=== PATIENT | male | born 1965 | race Caucasian/White ===

== ENCOUNTER 2023-10-19 09:11 | Outpatient (OUT) | payer OTHER, SELFPAY ==
--- NOTE | 2023-10-19 09:25 | XR_ITS ---
The [address] [address] Patient Name: GONZALO DALE MRN: [id number] date: 1965 Sex: M Assigned Patient Location: LAB Current Patient Location: Accession/Order Number: [id number] Exam Date: 10/19/2023 09:28 Report Date: 10/20/2023 11:04 At the request of: JONI DIXON Procedure: XR abdomen 1V EXAMINATION: XR abdomen 1V HISTORY: History Of Kidney Stones COMPARISON: XR KUB 06/03/2022 FINDINGS: KIDNEY/URETER - RIGHT: No visible renal or ureteral calcifications. KIDNEY/URETER - LEFT: No visible renal or ureteral calcifications. PELVIS: No visible urinary tract calculi. Stable chronic calcification or atherosclerotic plaque overlying the lower right sacrum. BOWEL: No abnormal dilation or deviation. BONES: No acute abnormality. OTHER: Stable small round metallic foreign body projecting over the right upper quadrant. XR/XR abdomen 1V IMPRESSION: 1. No urinary tract calculi. Electronically authenticated by: VIVIAN NICOLAS Date: 10/20/2023 11:04
== END 2023-10-19 09:12 | disposition home or self-care (01) ==
LOC: LAB 09:17
PROVIDERS: PCP Family Medicine; Visit Provider Urology
DX: N20.0 Calculus of kidney (principal)
CPT/HCPCS: 74018

== ENCOUNTER 2024-09-21 10:08 | Outpatient (OUT) | payer OTHER, SELFPAY ==
--- OUTSIDE RECORDS SUMMARY | 2024-06-14 22:52 | XMS_ITS ---
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 Vital Signs: Pre-Hospital Report: Treatment in Route: Response to Treatment: Misc. Issues: EMS DOCUMENTATION Observed: 10/21/2023 9:08 AM Status: F Source: [facility] Please click on link to see report [id number]+ydqVAtiYWBWtHHxPEOuIlN6MToxGpIsPN3mgp1UYBeVW7OaUMT3Iwu 4Ci9I AWwyXkt4OMRtZl4WG2huKOmqUyR7Lj6HnH1fPNOgdoHiCQTOT70wBbvqWoCtCIlsXQEvPXPyPfIFTe7s ICAgI CAgICAgICAgICAgICAgICAgICAgICAgICAgICAgICAgICAgICAgICAgICAgICAgICAgICAgICAgICAgI CAgIC DeQVLpQUJcZUbeleAwOpmHNj3GzRVuYi5BQSimOcFFSsExSEGbJYAeBgIbPVBcBYVmie2KKAKfSUCiPT U1MSA gCMQnNJSmYMttXOFiKKAoEjy3HADxDYWiOK1AReXwYDSwIMH4CVCaERMiWJYerb1WJRWtDTHsMrC9ZiO wMDAw FOEpDLusBZKfKRVgHyc3KQAeAULsMW7OKxViDRSfLLPfGAViLBRxTIRzgr4AALYqDNEsDrY3ScEpRRDl MCBuD KrqQFVzEDJbBGAtZIHzABJsMV2HPsXmYDJhQLB0WcPwOFCeOPExtv0SOIDkKJEuPbsdWmNmKDObPOMbL QowMD FxVPFaWYo8SKHtRWWtPI3WCpVlMAVhBJL1ISXkLYHcABCesk5NLCVrYQJsIdlfKEQtJEWpTTWdYZuwKA AwMDA eMQX3XMJaFDVkDN4DEeWnYMViDBZtEHkqRIDoKFEzfx3ACHBmOVHeNZT7HSKyPEHhXVAtOQnxSMEaZQT 0NzMw UPKsACCjFH3WOdKtMBApEBQ3UkolMGKdFYSwkw5EOFBzREMbKQE3ZBImWWOwZTHaLDoqZXVtXFM8ClQ4 IDAwM JRdGH1HDsSzGKKaEGN8EWnpVGGuMAJtup0EVAFtVXOdWkO5ONLhUWVmHXAzRIxvPTCzHLM2CsM3LYAhN DAwIG 2DQfHnPGLfUXA5NkMdZYCwJIPpaw0RDMZlXDLyRit1IaQqMCVmTFFfPCmmGZRkANYrZLPjYIZcHWDtDJ 4NCjA eXXJoNLOlMfJeSFFtOAGpsv7PPBRdIJH5AJL5VSMnCMMxSGTtGLkoGDMeTCM9Sbg3LZAdTPBdET3BTzI yYWls XLLZCer7Qc9UIXWtQRKWVCmZQpQlNRBAL4ICNvhuZeIGMfWQChPRK3GmHYOiPwc4S6YxDZO4SNIBTWYT OUJDM LDTDnI0FqBhUWzCGDAgQXT+LCupIBUvqwWqPXRaDHDHM9Cmy3MeMQdwGKKIJb5XpEgtEUL4Su4Ad0ChW 2UgKF yiTnkRnI1KTOUNKSZ7SG1jfOAqLYplp9RDYpZPIb67R0T1bQPiL5vECyqmolZ5m6UDVW9QAP8vLrA6Rn tXQnB VMZpoE358RtMTRk58CXvbALY6J7tXBlWUpzJfU7nIBHGlFVQIZZ6KFAf0PkOoLoxeKX92BEnMPOFIS2K GNnFN DWKUGEUJTFMnjMTqXvujY4ShRGxCLz2gRCHcDKRzGUZaUSOqBMAoUJTwBICoHHPkEHXeICNkKQJkBROz ICAgI CAgICAgICAgICAgICAgICAgICAgICAgICAgICAgICAgICAgICAgICAgICAgICAgICAgICAgICAgICAgI CAgIC AgICAgICAgICAgICAgICAgICAgICAgICAgICAgICAgICAgICAgICAgICAgICAgICAgICAgICAgICAgIC AgICA gICAgICAgICAgICAgICAgICAgICAgICAgICAgICAgICAgICAgICAgICAgICAgICAgICAgICAgICAgICA gICAg ICAgICAgICAgICAgICAgICAgICAgICAgICAgICAgICAgICAgICAgICAgICAgICAgICAgICAgICAgICAg ICAgI CAgICAgICAgICAgICAgICAgICAgICAgICAgICAgICAgICAgICAgICAgICAgICAgICAgICAgICAgICAgI CAgIC AgICAgICAgICAgICAgICAgICAgICAgICAgICAgICAgICAgICAgICAgICAgICAgICAgICAgICAgICAgIC AgICA iWPPBFfE1BHD1hMLsOn0WGA9JMAFQC7HIQb6GKRnyQUNcBrxYTzh4Tl6VVWXwJZG2YHHbVnNmVKFFY79 wZW5B L0Psa75kEmDtBAMwItfjBnu3EM1NV863dUdhxrBrVRW8QURgLkhlXJWrYE9lKQQsJ3JdBS0yyxPWN3Rk Z2VzI AX2FDPgHsqnIOreXDGcD0R3ALikWrx+Ya0XLU3cc5QqUUpZEsX8RVBlc2FlQNg0DOdhAhnbhZNcET2Hr GF0ZU FgH79jALezLEQfB9FxZWGkYBecAmS9VAf+Mr7Jk8AdZMBiHLt7vPFoLSZzOLScxeHDzCLEOhZzYGZJM2 Bscag QKcXkg9zCr41HOPopfHBXSvIRIKtNaBv9OweEwkZaBzJTPDILteKzm0LXoSG1vVtsSFqLwBjY5uNPtVl IbwH5 RUW2EqnXtXY/PdXparGVe0MIPlkZmoqM7f1hOSZpBDDHRMr1GOVZFtTzPZF4zgXxrR5JTI7ip8KxDXwB CjIwI PPdl0CgSZw4HGdzB59qhGKyuAVgOrDqWQCxQu3WI85qCJiuDy79UYzbOWXjQmEoOYu0Tq8ZI8NlciBlq CAxNS EcNPKER5Bkk462nmXmbpW9DLkzGF9fwnDeuQN0JPnnAVAyHmRtSwNqPFBBCl4+Cj4+Ft5UeKLtFR8UTP dlCj4 +SKditnAdLpvUTb5SLhOaOLHuWvsGBxj3Et6PFs11YAanTMJsPwTqSLe9Ye2YL2YupIUrcjHpHjtyiOI EZWNv IEJYN6kwvcy5zWU0EeorDxZir8WuZ1EsULx5Pn4JV2FmDAH3QFn7Vd1RNSSrYyO6UpNkOBSKXx7HVg5B L1N1Y rI9qDLeD7Ptrc1RC1K9oVBoF0wOUqweC0OGLo4QOvT5vpZedB5RaFmuoaPyHyKgYsJSLHJwhKXYXYtkI ihK5e OJB3kv2VPWw9ClYjWKPMOYHGrv0BbHgFR1x1cH7gHbWhrGpATazwwPq1iKxQ7WC1wD4U9LJX8xy0RmJD FtDQp qefHvNpjCJl1CArUqUEMrTiwTIdo8Ok6PLNWzFz3lyGXwIo7TANWrIg7PCcQqDo6XImTnLu8LVoEfOl4 NTCA0 Mp8BKKE3ibQwRr7cOOSwCv0+ISybbpSyZgyLKd0OLpLwKGAcUumOCvm3Ok8RNMYvLw2xnFNqZy1FGXZh Ci9MQ xPoMp6JRtDxEf2MZbZjVr5ZPAZ5Yi6MBZZ8laQgRy6hLIBgAw4+GStjgeSjSyyNJq3PPqGhLIXnPwxWS jw8Ci 0ONZHiQt2enPNxJu8qBMSpBx3+FNtxquMbSucGJd1VFkWdDYHkYyxKWhz9No2BWAIdXl1gcURfRTHFBo NPK0N ogDAlSWMVCTeZFn4Ux1lkSRMRQ2Ywo6TnrvLfdsNGl000uwDqGvBnTOFGCPyfUQ1qx1CqmqaxV1qtUH6 0aXR5 SUuGG9A6BcP2wORvR9L4iLDkBy4Vh4WrbHWwQQKjUopkDSQUQu4AhAXsZG4Pb414Bq4+DQplbmRvYmoN Cg0KM mPeGKDbNipBMzp1Kz2MNZOgSf5ukZFwHSGDErBYX6GnuYSkRGKEFEaELf2Qa7lpDDIKW0VVXNQ2r9Tdh UluZm 5xMEkZX33oPIYhaI9vIXmNNLYfnMx7pJqIQ0VmC6brrIE9EMlYEO2yIJmUL5S9lSAqEV8ssxQtXUw+Pg ovQ0l RIC3CKBIRGHJfJ0wmJV01pOQ6Kl8GGrRkGi2Ez428KRRaU7WykPEmrzTvFdIgZXRQI3F8ZaG2wRFnA2N JREZv xlMCsYCqBvzzGGzxLAUuOh7jnTfoFiOmKLE5QyL8KTMyLFh3YcWhZt3+BVtqoqXkYehETf1KIhgpSEYr YmoNC hy9Ro0Kk6NhiwCuNJMcWpPyZABfKp2JQBQOZPfkiZBbUZmbGbj2Lcj6Sm8NMYSrDQ22VBXdJJ1vDCD4S wovRm ahD5GwDkXKU3JbxvFQNa55TVwsOQgvGlr2TVDbRW85MYAmNAU3BdGaWeVbQuW6VWR2YDMhIqHrCLijTP FdCi9 Ln291QsejQPLcSWWhKRRSQd1Ey148MsSzQIRuSPQMUuBLZ3KauQXxLOYIFHdGDv7Ol6rePPLPY3m7HMz pY0Fu W7uuXWTPJ5V4MX8ZDOu8ReR3QXf4Ya0LwQWaRO2Bn512HREuT2AugLPmloq+Jn0CTM9nj2RyOBmKRzW7 IDAgb 7KgMBk3NMzoAihtfCTuWX3CaNE3UMLsT91yZJshASIuJ3QtQZB8DPg+Tv8Rq9BoRBQsJAl2nO1PDLrQP Ay9+1 dr1N9BtFZdD3EYaqNEWR8o3h2UaiF1QB6a1QI+/Gklp9CO11odqUnCDsy9gb2ZtTc3ULRJNWKQr1wty3 cIRzw VU6CDbJKjfayUV+5IThTkTmolGpwTpjtOsb0EeEXmBKUG4sXkAAHxHTdcI4U9lrxBm1clTqroRXGTTXC GITq9 1h0rZlPBox3cDyRpORbgcXp8ZL4tA9mhRZbSWYbrrh/tFXTl33wejEdtGum6p8zKslHjdz2k1GlpA6fE itCeU V4mlayh3AGC8X2a6w5+P0uvDvtY8qQCJbhoQpgplUT/hThXzLudZ8LYZCEcieC7mLIte/RGeZ29KOxOA f+6zu VKDQGkHqgSRkrQY0kzXJ3z9lt7fez7N/OxkfCOLeLkIHV3ihJrmP1VVT3fi0GwIJvWFkD6ATImj5FvAZ o8PAo rTiQtKMWfpjUpQ3mTBgiNJmqGj7IesIIvTiN3PZTJIWroSVKrA6ReEFHhbPBllmXtTWwhITAoYSUeLl4 FbmNv EZcyTbFhGBAwibZxyVgvIXokU4PryXpqRVRtWJosSXFLU8PqPD8jI59dRBZtIgQhQUJHR0Y0pTJiY3Lt bnQKP p6CImTqRL4ehq8JSZbmCFWaGZ6hoz5FTKhWA4Qra0FBf884YZ3lPqWCK9DfG940okyema4ia1IBMWNEF 0NJRF N1y0RdiSodAx5iNFmHH93dGFKunN7iEIbHXDUszTj4kSzFO1IpW6rhdRG0AKsIXW3xKXbLY8K1sMXdMX 1lbnQ gMAo+SpccV6jSMM5YNGYUGQVbO9zmJM45yZA9Ht3JSsKlEl1Qx735WOYgN3FkqMCcqkGtBAWzGHZHG3Z 1YnR5 ePJxI9ZNGIFgdkVApPOeBecmHJcvOYZkHo3qcNkpJwUgHFVhFAHeKlXgCvC7LqN9YNe+Gk3DUK8di8Eq DQoNC gNrYPBhp9PfMNt5UJjrIQWrPP31DJbvVv29FEb2ZgozJ2XqICLbJ3k4TPY4WT2uUByaIdsuJTKjN6Xvi CAzMD NfAlxfOPpJH6WhZLnxWHF8Sb5Ev057QiIopHGcCRReSP03MAPlJnDxShn4IlF6QnVhLtHyXfM9XRJ5UA EwMjA vDWr6CZhjCl6Zm810KkkgTSGyXXElWWCIWj0Xr937FnZfLXVnYmUDSQtJE4PqiNGnEKZYMWgQI35SHh5 JdGFs mZXYfqdcYLNuGx5ThRByUzO1LV2zObIqClpoGUdcLCUjTt3baEBcc7YchTA0x4MHTl0STrLpKN5atk3K DQozM mYpCR0yex4NEGhHX6OimRLucqRwGbzhfSXMDOVwKTSCO3nyxyo8iNWlPJiHIr3CLvL7pkJbiM2CnIgiD ctqwz IWlQqn6zruweWPtUGKKmqKQ43Gtu8uC0iPIRqMSs7++8czF7LWBHBtX5hmFNROu5zaN8H6dPRMDzcyyy V5ulm H3JByKQzFdHr5SdQcooqlnKneGNV52nxmFHWOVO2+Wgr1jJ3gwj9vPMTaLIuwN7z8PV7Yre4QVlcPQ+C sLEFi 2mu6lMv1KAKvxn5a5yKFSKdqhTN9CbOjZDhEakXofCnsJLanANjT/EcbcGeSFwGaIwoXja7A285c4GYs c57wk pWdtLWk04AchGrRbwPm7m4Sx7CySzYW2C3ZHxdA1VKUGDIFqAJ7vRYl4fiVNV37JqXFWeEcM0YwOUSt+ qzV/r am1zght6j+gNmmGVOw219yUtAw2z2EzC+DcR1XPO7ga9FbYPXzXUjmxxUiWmnYVe9DMzGgVLNiDuyYSq w8Ci9 KGJHqHo7ykPGgEKRJJ2CQE7MylALuJPAVAMkAXf3CfCEdzYGERFwnGBGtV8BzYIIpwKGgauRtJCojEMW wIFJd Sw7ZlsQcVIliMvVeBSZcwsCenKxrTBjjQ1WujDoyDNKwYVzsBJZBT9JlKN8fI21eLZAzLgPjSPFLI7B7 cGUgL 0TrkxTYWo6UKlThYD9ocr3QCVlzKLInNR5nte2KTVnDH7Dhz8ZAt523WF2AOGlKFlXhV367sppsop7dn 1BTLU k1XNkmG69IUd1MTQDIbQU0SK4KwiIzJWq1Jq9JxhFhbeitXdIbOKYtgaGelMyzXx4BQAgjc7AxiVQiNT RvYmU bXj2AzYCrmTSoMQ00CTYUMb3CE6HSFSCzT4eEEGSqQA4HKBWtpYe5pOteYCaiLPgwHv1emYJag7JmjNJ 0b3Ig WgWiUXCXQj0UqSB9dEPkVZ8WRSUNa888RPhwDFPTW4S8iWRoO0DghfXES3yzQkUrYRDyXoZqGqQ2QoK7 XQo+P p3KTN4xa8JkUQjKIhZ0OENov2AeTLo2HFwyJYJiCN56JXugFd36ASi8XppcD5GzIGIjT6k0HIR5QL5mP DkwNg xfVZAbZ3TknZTeACIjZkjiZJlMU2MkYOpiQAn0Pw0Ix333OjHfxKPcAUB0SwE7MbdwVR7eWdvxNzEbQl EgODA kZsI5Bhu1QOQhYYBqDBs7JksySn7Wp501LwbbYDNeGYHrGLQFJa2Rt924UeMeSYQvSKJTI6WAO0XtfIV pZXJO APfMPe7NpSHhsZZMSRrjKTXgeVsdJS5vkAFhMQVtKw9RsXJwPsTcJREeAJBxRIfQA7Z5nINsI4NldnBY ZXNjc pnjqR2xKz7+OInmqdQcVsaURj1FQwNkQWMtDfoIGmb5Tn2JmDj7FQUrA5PfTQEiWKFdn1TdCc1UQQ6lw GggMz MyCj4+TCsiyAExGJ7KYncwZTEBqkVbXAyqSEGJ2MNft1RDMAbRDR2eNEbTZNiWBhSwQHVr9LrozqOByq G+Wf9 r7Fc3foq0DFjHC4hRBpS2ZhcguiwIZH952pDVOpU0xy5Lg+MWSy24ta1avEMLnmq6zbPE/3TeabaLeNq r8UTP ar8pRkovm1QSu2G9qu5W/OTQsyeZV2QMByronoohyZ4Z+Fy2bGJv2/OycTmPiK/DyPlPC7eUw8SKuFUq q8/kF CO7jJxS1rEbpeDFj1LPfWD/ltIz6ETVRFBDWJhSfkfANHniUBTPJtVRbWc7oziyLECTTlEbR32DKxCG5 V11bG +jAcPkYFfTGicYKFeTz7mSKOMXzESM8qjOAOVwYShPDJHcN4dbeiqcLh3fxgdokfX2kioaclzCvCLPCe /0+iL uu4RHf52X+mdm1eeg0LteX6oSTi3x5e4UWO7xDZsyhmAkkSLhZU9CKbMaUI2osw9CFCdrMfIeTI3yje8 KPDwK F8Vtx6TCy549IT0GNTISN1FwJ886qqdhrk5dk5JCECMnoWXJcJFsqMIFESzqUGEyT2YnFQSmiMFuvdSf IFszO OYoWENyTv3LfrGmUOqpEeGdJXZpmuVnxQnuARasM2QnrGwzDHWeNHluVAYKG3AiDC3nX92aZAZ1RDJsL FIKL1 Q8uYVfI2HpziXIDp1JAwGqZM0eku5NOVanWQWyLQ7tqe6VBYkDM7Erx9VPn401TU6OGIUYX0FjS705vp llck5 qy7LRUHEilMDCuSHffLVCAKfoK8xNB0eznPJhZM4edvQ0GJagA3SrQDUgccfrKRngUJ48cGB9VBnwArQ naXN0 jzrrCDAdt2AmUCipB2XdhVufnDVnrZNmXy7+Wb1WJQSEj3xDBE0xuVFnRSMemoHacOlKH9VFWSODR9Mw bnREZ HHqhpetnF0kGWS4QYHcCitxN2DxhJntDXZfW1pCBw3frZJ3mXEqIr0VvTRsLD7Yk276Vh9TTEqxUHo4U DYwMC 9uKJr3Gn9RFk5GQyYyUN6zfm7EFSzcHAWfCX9rvv0PNRrQL2FjI9KlrCA4WbAfCPM4CPKRF0MxjVxtmU dodCA 6XOHvBzx4YTlNW7Icv0UjvzRnKiXaKuU8Afd7Kd6HoLEikyN6LHpwJh2rdTMGj5ijIz4iWPZcJKZ5QZR gLTM3 Ff60EZSbOhM7XympAuS4JNxwAGQuYs44EBYmDJ9OE4WtviJWlJeeAvO0MuBhSYHYM6EdodMKGM4fRT8X UUJXR 4BpW828hlujxt9oz5VCUBCgvSDPfGBrrMZIRWepDKDzgKbzFQ4ihVDgTKDlAz9LtEOrCzQiQvGdIZbmJ zEKL1 V8cEOhO3DvumPMQIIuehsozU5bZc9+VQethxZsNebQWg3MJKHyGQFbFyaSDtx9Uj7IiMq5JMRhL5GzUM RlRGV sd4ExIe9AHW9sfLejTjNkFx9+PFudnAYnSY5VJtipZPRYwpLxBDmtzAorr3QWKcEiJaFb2Xuv4P+N7QE gMV2k HvOCH0o5CcnlwXOM8Ad9tG3zvxf6cqjSqTMbM7QLzcdaaFh4klePhKqsvJoXfe9hhjTQVClYFFStwuMZ Y2OHi GOb24nSsQ6VU/fshZeiIprn4cS0G15161O9kpcBra6zlu51fxjNyyyXPN+de+7S1CnVsx2LumGh89Q5r /hcHX EJROpYijIVbrXgD8zMGjHeTxr8qKFgzYwyOVSt0np04EgUr2B4rgs6tuMj8ZmYVcu4BImY3FVSnc7A+B hpJ4g rsYzqbcgWoEColRccoZgx0xdhg6y31coZfRpEp/wZtRlpsx2+QbNFbCkcZdouhAjujGU1iPdaI8tPs8g fgLp4 K6uBS2qfx49lN/sdqf5tybB+GITKeWOXOdXrNTS3czPvxR1CGW9ry9BmNYjUCjVwFLMyp6XwXQc3WZqc Rmlsd IWxPB8NmAY2GQZiS79vGQliOJCeE5XwFJm8Yw1+BQgtyJWaGC2XTceqe5jd1Ykp7JK4WNKAZXZ3OcK2Z FIoSu XlClfI4+Sz4ZC7Awr3TqIGRW3JH8FjfdSqndDmBm56g1PiDKLGz6uyxoNrHoooWwoqFH+tDuINCmVuZH N0cmV siL4HLQ7pn5FjKCoUQhIhDMFyx7RnOSa2FRncSsUktFXvEPJgQIEjIDJ4FURnRb7SnEr2EPHyK3NxTSY lRGVj y2SqEv3PAG8xbFplUqvlKXniZmNbc9JxJ4OxORc8Ev3MeIIMB3UtbFRxOFtTO3stMIKyAEWxRereFzKn MjMgM RIBRq0FUuPsQGBfHPYLWf4WD2ZtgpEzARgNJ7JfGVA7PGZxKovkAgDaFleoCEWWDp3QFjCwHbAkNHAED 0YzID Q2YNZgAup+EezsMSCxJ5MkiXTtEi7IIHLPY3RgmBHLU3zaZHqfOfplXI1eM6XLAw5PeNClPRxqSc8+Ci 9TdWJ 2cXQqPY8Vj7WgNi1GaJPxDW8TA4ByMBL1Lw6+EIhlaCVeRX0DYuxuyNtbz0T8LB8iL+ViZoC8zwORYA7 3nee2 C/YUxU5TUHXf9g7EVzXkWO4IZH9010ipkX8ujA10J3tvcL5k9x+OxjyO4Ce+8fPbL2/1SlDtwq//evv7 Hy7/K Bsq2iI45Lae9pNqc36b3gfht3s90jr7+eG/y5FxvMSympIvIjhhkKJ8Ft0Ps46uIt7RtB/e9YSpZbJip bn0X2 Zh6lgQOTLWNYpDYPIYXGdiiA4Nwibjr5d2CMaLJFLvOBZ9ZHe0Tw+/dFSqTsxJsubc7Kt8dUVWEI/RB6 vrTHI qaq32cWbj42/VSYxXOn/co2XeIykAndTO38NYm7hiq4SfLca5XJoa4Fc97KALb2NCMBjV2p5kyzQ/eXZ FjD6U 0c/Fp5nnqei6P75/iZ14VKYvJy8+r8mXZ3LR+k5m0ur0YziwsyjrXny0+YlK6Q9/too348hEN35j7s8D qo/VZ Ywu4/F2bkcvsowRlcABD115swfRUdAP+DLQa1U+cR46wq2yJjgv7tb/B+w5bkoi8crQxGgzz6NiWJSxu uPTyl 0eEuCDglLQZ7FdUfo0Mo9Nc38u6QDSrBo/a9WIQQzn7q1WjW9N0/moFLT06ToUZfLTXDgAJgbZjMBc/g WkPLh RYCX6hE5fzpMD0tMbYVXkiQeXEwY8smDDActT3UpWs788JSqsdMHhoZuA7wLwn+kVrT3NepTySxF60Qx ptuyQ oCL7WIDWMRoslXdIDcMeCxYxpo1MadmHmT2jZH1VUftVcvCSUADW/N8WyPdqlwUXfROnMDna0xWYmnXv vSthp nWYdf6ijattOmOjEEH+FGfYKg96CnXr2G1X1x6tNZTOx4b5kzPWmm1t9bjRv1AF5FZf8khKMBG+F1jQV 11VVE LRWAiwB6xjTuCetM8cVn67JccVxoIGRTQMLNnrEmoO2GRYbOUWkovd5l26F+fHWwwhi1o4jJ09wAko4x tz6xz GKv1yzyMiS6lxY3wYZr4agNhc4TLfmcVpzbfHbQ67ZjlWJB/frEAt5tYk4UlX2qG+Y0ruqIxWRErP3iB rRNSR eOZyVPmAVVvZ3TOEaNe0JbWTH+eA3qCFlPlI82vj5HQb4psq+jVZ9TC46888tXaoD4wCCBtQcSrWQNrD pwDpc i5EKJ9C/fHEHniU0mpdPOhRHo6FJSOZYEV3YUNGtKurIe6/oCBKy5u+38kaWCjiVTvQu5uPJeEWadZX4 mGtRZ rgii2Yc7QwTk86rzczvVZg0vk3ZzTFkW9BCoV4Hkus2LEgkzENAcP1h4BE2FNrPfHIxTmJrq3KpcTl10 I4OrN vT9PiXquke8OX4DSVH7QAki5YuzpNgl01brL+KuMAlv0CX94zxWBQOsi1eGyLkywyZcNMMiZPPazGGEP m8T 40kY+I2Xg8DWpvrIGnnC8xME6o9fI9M7QRQlw5mWnkFezekBpxorIDgRTGm2PRbI7UF+JoXI1c5VX+Ez vc5Kk 1LmJ5HNUIkcGlx6FMrMczJhAcAcAyrob6OzMJtp30txnB/DHLnFwslEK41YcW8yNa7TBwbKHX2fGP7le cEmoy Rm6wlrfx8XKFjPTz6/JDSOQdCjf31XXSjbYyHxSBe7TZRITypPA8PnIZQ0YF9h6bdwxH0BbVpoz51oBy 9sVkB fGSALQTaqPpwhw40Ts7yZ84e8vV6Z0fo7X+iIJzdK2kR5ga9NHO+tnLMNsNi5jelKQN4+i3JCPMIr519 FE6ke zSuirh/fzSM4iUVvNKJKyk9xWp7v9m7utSspGwDjViaMyQzz9GfaqQuv9Lpy2V1jBkuFrUriSSEOrEMw bHPTU pGtCLH0tJ7JstHK7HPA5sRNrralE8ZKmrAOzPusDmpLz8v/mtEaqcACo2cjeEqdNY4fHK+EJdv8sfvvl aPcf4 Hl/NSY9nFCAQvKGycUsdpotgJbA8hTyG3Y60plq2tO0T4BYbwluRAdT/hdSYy1vjfyQ6fpF/CQmi8dJ8 O2X90 Xco7Ue1l0lSDzFX3L9pZZPkvnp2n0T79mNrNvQtNdeX3a6oReCdE0d8IDQBIdGed8n6BtC74hmg/E7C/ oJrUq jAtqt1IMArNl0EqfNDxFkAHQkSbPj/+LMSiVhU993BycZTDv3Rr5zlOLHR9XwK6s6rk5OjL3XYltS1h9 BVWx0 wVmHsyeA7ngyyrrSRv4sS73/+mtEowug2w8yxr1Q7A+D2kf3g/zZUAJOi0B9yS6Yy8OCxdQ2BekvksYh Ao7zz uhoTEtaaeuRfyZsKaxNyjorPqgZxL6ZVzsa9KWU6vPx0pYqn+hRY8UP1BcbJFTK+1Dv7N4JjD7mekTt/ sCMNt WibNq7xkUV+ehNH9eZ9W1ucZClXM47+H33sh9jpDzpbJLhWjRXe6GVyTuJrIvVto5vX9jroKh83HWXJk UY3O4 zrWMq0tjuM8mU6mrDgsnX1dBqkEML0mrpFR4A3U3vzDkGjbLbQ5SzR14OExUjw4SmKQK8Yq9Cb6cP94O JFTN4 JvqsSKclPi2hkiblB0fg+Dkl0U9VgaT0I7IOeuRia/on1UljduiFsn7HkEj56luLq89smoN9OQSYZaMU XihQY 1TufOOcL0sZRYT0PC3JRdHknh3VJSU9F7QXZIj8rdJKe6BFfv4gXEDdPLiNrjkNgZus93tWS079275zy /2lXu kK9rrj2GN+CA7Ym65Tbs71oggHwAAIOH5Ex7qy8dWrY0++9UpVq9WDq1l6t76ayaLqNO6ZZYeumgxgr8 qfzWw l06xVINbgkhz336n+lx5alLwehEm/OJkjQ/DItwdv8nEvNJhgMvI5mUaAgy0CpkaZ4JwoCRQejgSLFOX nBvKE 5/nZTq7OhS3FhKtu4RkLeXPiAJ8hmii8y/yJDdddpvU5oiSppjUgem4VRCQdWdGL7MGb8dNEtFqx5c8k P0leG vMSWgmXqtVFNXmiIg1TY0Qvb87xag7Ng83Ot3lxQ64BIOr1l5h1Q2dOrUwkpNqNbHH9ubg33dTr1QYen Pic5k NnE6YQ1yEvRPmPtfEns1KziALuBrLEcRBBlCiUq9nr5ggdDLPLEizBfQUBYDWzZvDyIATm7IhgRRRclK e0Fvl c5WBkDOEzpBqaptHIrBfXb2YupndoP0RRZqEvgr6AgPDVXfc26dLZWWhAk2h8yd6H3bDRyQPgZNWw5Wi 5PQrm vIpctQJpoFr8KCrd1/A+SMSLDq82j8MNDIIBfYrFGSf+5UUzqgGLOISe18CVzjHkYF9jXvY+bPHa/DUx 8yWFV pT702At932XBdhlDWQrRx/2G62OI5gza/GBTS3BnBUVSJxO2+cC2uo2JyKM1kGKOzsRoZb1kDjd98U5W dVaIU msgjx0wHzOiUsFSb/hFoUAvCImoTICDbLixdlMMLyASW4J63rX9CoXnddxpXsj04WFOQFc5IzcYmLJuh 3OCqM uGuLRR6JzcSwfclrZU3NNztotFpDliWyJdU0sCKdUociJLH2guFX+6S+VVBVNOr39ZsTMm37PsRIZWD+ woqYS 9uHVNqFWkaAL3b6GMbM0ZwkibCUHF5inRdg1fYMcn7RdY2gvRDc7Ne+pGl5N7Sb9G2BRhcbX5cI36qpJ aF3k9 W2f17HtGvf5st6qnkr/OdcSQ2vgQlZTZC8ZGrrvr1sDGjOZkisz37b+Z1yANBRw2hHcR9O/KX8++WtiL Pc+jM 8A/rTW3vO+Ce42t/Ks917RnTv7WHQmRxE36LPKPIuPXIjTzym38ExC8gJycJXV5+vttE/smg8RJ5DTfG gD6eu yqYiHl0ya6UtezYoRhVn/fd7CCGejWVqZcypf7aLK9Gy7so7qlGgpJSU0YPXMFhpzzjRO6c8b19LSOIL KaSrq U33IaxloePDGpSOujy/1+J2LMgVojIMV196twhsUPW7B5dUjaI/Bn2U5Lj7TlIf8XLoMT+XD74tTzcbP vQCTz TCkiLTJk7Uf+GqyvbkO6bIC9QB0Wdvt3mtbDJn2IXePbMY4Ps2wJU0IaMdIWedOMgxspo9mFL9swmyCG GUaDE xIqRgs6pBU4EqgqqeUBSYwqWDrxaBFhAbtVb3mzMNt3hl4jAYLfb3gHkViK+4+4Cfl2EpZJ4LALXUBs5 ITekl OZ0xGUCQ31QuaLs3RFwRV3x2o8OoyO/AgojoHbi2XJjvVDrfjW49yaJ+6HNMpG0VlObBKTtNDsVnjfCW O6ZLr xe7LYAOhEpovjRp4FvZssEdFj20Aq9YtoQSKk9gXT4bqlNBw2hoERvDox7E5aRWg+Clm14oCDIu9M6bF mco3O fo6ukL0ry045XJzkhN9hqObrm0xqGf8bveBtpZQDtYVTidqoXcujwPE+iRUv3taypzTXjOqafIcIsbWh OW/1B NEE87YDHrKe0h9qbtVzhRMdMbJXQ14RyMABkB5cD6BgzEEPn4y3fkyd70uUOiqXmltNO5EhxwuY2majE 54Xuy e42u8BQe3r/nINkqhHMb1V9F3HoPb/Fl6Ig4pomVVFZxoyIj2jP5TDmw0V1gi2DH4W/x4lWh5KFp29SN s04qt 0VHdbp06s9tu0hu24zThf1TwcgOhH80mf8s7ooE7VPnuZ3gseL9OdcJQzdVijloB1g39THNrP3/ar8kn zXd6h MG1DqvIaocNqMsKlAhEVdc931b1AbN2XXs+mIcMExInSBuncUub53ZW7lNv0z+YYPd/gJAIY3uJJLR3T 0dSeu tG0bJkv6zzgPyIbBhyuSgWkBAWKhfsw/Cau3KC6R9lSxME8iEkmFm1lFOt3Zl+J8pq6Sfbgzp4Pl8kpd DDiI9 5s1FgQ23jB+9JNQKbTTiyBmSRSvFy2j5jHfqxff/Sm0U8tZ1NTX9AsJ3XTxszuGcMyXTUv7GHk7ADONj dxjlM U5yCJ+oFDp6Q9sdkfE79IRU0FjTkufkdIw3H0MI9UrpbWfqyhiDlw7gH3bPihdkE4mdW2BEw9jIwNTQG YZ5qy 70PZ5Gb9V8iu1Sst6N4n5ENP4cd8FvJBKtHEajbnHwDkoBDa3AVRChIVBeMyoKMda3Nq4SjLd8GEBnN3 ZsYXR cWHCei1JhSk9ZLU2nrQgmQGJnYMJFU2aehvw6dKFsSFVlTIVYNl4FIoH3yxLdpI6ChSupnAzjGMIvT/6 cc+fe etSoPBL3hKCJFtVDRyEKDJCYhIzL9ZSxxLwRjQiYuIMyMusloFWL3NS0EHz1W7ePnfezNB5reWCcR2VA mPm97 2UG0ZDzd+f1W/76cQ/fu458e/Oc+7mkBBd1B4beJtQhJtZWIRvmHS3r51aj14QF/6WxbFGmz4fW/yvst ruItY 4ytsu7kbpul5NDEwiQgOj3xz6vNefx/8F2ONT00KmJTwVaasnqG/A+jVWgYlVTVQ37clsw86D1ELfpPN JxO+7 s/nBexPN6vBn9ez8OMTyDx9z3brc8z2CDyFjLwu69sFqdqSJQVtx7L4I2ir2vrpZMnMf6icRGAs4hY0y bEMVv IUo+TerYpR+InAT3UK7Cdv5bRdzmUh5MEm6R22/VQwY55o06HIxN7OwhElAiIYFrEYS/dLn78TwXynV+ Gii/c gowqNT0wCqwvIDi6gQxfTkEOXnFx5APcX7lAZSsLwFG4ckrelrp6Mg1ww2dynYj3nIqA+6fR1HFsC3VP itoAy 2lE/Dp2k7mr3j0/m+hPA7ob1VTc3AdpKSmOD/gGUxD1JFnFzY7k/dtrD46ueh0iXZB5w3M/tewtLs9JW PR01R P2/e76IDy5n1GR6ouusl4BLKn82y7pPb/TXIxXc3ttJyWiriiRjPijx89v3aRdXIKUqKS/9Md75N4vrk cz3gl qWRrmrOmGHUiKxRUqjceGYTyPhTEe6gJZl3/EXawLSyRWvk/YfTkqFjBXyt479pv2pQT7v09AsxFWZU9 rWk72 +//nVnOYCHYarIoPAW0WnWuy+z/YC0vk7ikZRAkuhq+f4ZtAnRIO0e5LIxQAVQtN4BQxupb7PbGoszMI y2Ea2 ISpxTjF9TO6qO7eL7hPdtO9DaDk6EYqsrAnnxav3ZZIvlzNeAttq9PGT2Pa45Rq3/lhGUVUxO7X8LN7a 2/i78 TczTi1DKkVNWwxCYz4b6SiCNztdUPbbIHFT7alRICgXgz5ZCGIJzoyziikQCFBH/CCMiSqbd05hZpOXC gbGEj 5LrwxLOh2Q+UxzPm/3FV6Ni5ozMmNXl6xFl93f7e3w4v+KTpA6esa3LAvfTGOcWcTdUBbOzCanTOUiIH h5HZ/ 4n/A54sIyzU60wTPsh5j2TNLTLtzKCpkss0GgeFt7hpS1hH4VzVhBcQcpgu6pcLcXA+mjwbZdogzwVNs gzAfy 5g0jzv8/TTwdImi7YroNUOpkuNJ+A/DPr1k/9H/5/zZ5jGsgWysM+/Kvdwbswxyj0ODK0JXLYTp7Z1Ci JPe2M HjzmfDkLHQoty5HXgfBkbQ27UKvcYikp9naquVOLa3dQcTJiZEYN+zNeLgIMCoUXAQtuij7M99BSzMEs AoclG 7QVSvzZP1UktmllU/3L4V2Gk+j/PeDrA16EUrHtGTmOBf984v/nPQFMgP/5hBS3duWI8x6puFnAqkPIt ZNi8N LTDyavgkk6d0EG7+nvU/alZo0Vgp/2usmBvBv5vATKQUD//C1p3cWMXtDLL34XVm5oNT/8jiSaGb4Vg5 iRsoz dIh7YKZ2C/ipHPIj+e6EC27mJpGJ9ZpAriwptsMNrBO+x0Hn5s2J4XuflfPtsPO+cXCaY7Zra9oIr5l/ U/i3Y 8LRYiDx2tyHFqNKfZVrU3Rg78XCZ179jg20OFajBQgF8fJ2AJYDmUEXOCwFUXHpXD08c7ULc6c0hAQ5A DUTpH h3aoiN4gzpkve9XvT/cIej7bZfk8HKostWCryo8NZoBTk6x5pze7JVTmAO3JzCnNfyNHTdIfcyDdM2Tr PoUwE eFZhGfoL+tfxXZ0VMLEkCtqgPqemEhXGL3e/l+10EJdZ5nuk4m+NK14D8tVmmQ64Q73KNnJZ3xijds3u POxqa rK71E8cmhu6s+lbDZzqdBkcLUcrshDuCa9/heIX41IQ5T7mBraDvXRz1XOVNd/KCnPzq3Gb6+4Y8rhmg eeR3u KjzsH5jZMS4eO2GTOQEXX/MRUsuaXGd0NpI4TvoeuOUzjs3RfU4DUCyoYuQTZD+TkUT0sqMJOCw0hs6u JZrLX PG3UQYE9MWEPyuVGYXmOIvEWvZ+DCHvoDXqDTWFTsEO+jQ3QwH02x9jsG5CU45JhUFmECAcj61Vff/Ao LMtlV aEBhFucwS0KgWJ6jR0qsLLQ+fBD2oO30WOz2U0TtjCBFhB5KGHAXfALiqOf6gSItFNvFovNi6BMo4fss Z7Ram 5VARNc2CeTS00bLpSu5pw8S0DOUMXewk4qa7X1j6o/oXHPaNwd/cuhr1XeZ/wQqQ4tme0/eYE3OE6WOp UWGmB sx2RQSILtCAJLWydD0Gp5m1eFgWTVZdAgJ3ISsR3Xi6VMbUyrmR9m4Rab+l/Tf9G2/6aFTegVSDteKWv S0H/D v13/psHXa+x/D3BZnkPIYJhzENz63Rgxm/+CLndZz3LFn/Rd18A6mzys7phbmYODPAfOt+l359UwEPCh Gpj/B mjttyHvZaufvpCvJeo5ADUiyzC6GWIX8HREofhmXu6AcsR6dmRkq+6y5PAb1ySvNufNzU9kXyxbuqNrL L abkoy8j83BgAygYZwqQXjaO0BPJ2UMI38Knva+XVD7PtjsymYc21XeVxu0RyP4kUJi6DKs1rU/+yD6T0 U+yP8 crsD8eSIf8fuSjT5Kxfox9O1tD4VqpkITssaOoyzv97jrzC4mhXvhrorAUXfaPFmEbV4OchlFkAAlf4S zGpt0 pVfhbogf6Aa6+jsa73DrURRjvCLdqST30Jn24+ttz/J9lqLil9NElr34ZBLAv0sR6i7SY1mITbX14yS0 R7UL7 TKtB1PktjRwAmHbDDHuupCkp+JCbkdscM6NniK4li7ifoq4nwo6a0Gl5/qil5iNNQvoyJ5VSztEZrILT FyP4F yo9k/CYSOq2FPMxpMJfoEolctywcdTICS7fqmIPsomZt+nFqvZRpf1kw5+Wp6dOv59/xPo4iCQPITtOt twiS6 dWYlJMSVI17iYpGt6bZVk7lW27O0JRrAfOwzbxqLsvHpFpqWplbd8pMZgLHtO0HNyDBxVvGfHke/EOOe qZ7dE xK9mgGraOqX6JzpUByHOUlfswF9gyoVNzDmyhj047+9Vk4y5E7Wj27iYMDbA5FO/nE2gilRISNl5SE9q xm57j IilcKtps3XZaNMb9MvVk81EtYyqH0pjYacAOEqDVivFgrSqFt4+GEr7xaXOxe9gwF4OUicPp+vChID3V Cf2Yw 36WK06X0a4WUNouzN+X5CH0dgCJTG98RUkZhlSpih7bhr27y9vlEjzFubmJDMG1XAJDrIR/18In/k/R7 /pOIE 6fH8dagBljiX2lZ4Py6oFEGXo/c7+SCGioCR0z3U9/uZVnK9PXb5uGuk0E1DbjqDEWqfwPApxYyQWp8g 2a/td JnXBSpG1/L0HpRRtxfSxBsn8ta5gCft5F6fwkDLGG4E/TaLDbQULZHYeOCJPPpfHpfX7Ex5m/oh4OR9z Tfxzs WCyFgk0KscVo0y1a562qCz0xrDYVAc/dMMh0RygLt+smkoBVfJqsq2E+m686ytf9wx6Rv7rZdGv6LF9K c1aNN wnJey6Ug4h/wf+mNKZU277dkb2Yd8KRSH+jemzvIU3lc6F44OYvPnE64hKnOpxgN9H3GCkz3OzxcaU+N 7h+vc PV5+hIwgag9LrfhmDs1PL29cWGnG1i8mBRrTeFoe5+Pf4q/2t/al+g1/xc2t8NypCpcZe2Z/MH+2P9P3 u+w0S vSb4j/qP+JP9LhW+k77c8bl8FLcFvPI+QiC/z/+m/3UNC/wLrnonNcS/2z/f22rdiT4sb1uLz8gj3Dp+ N2AZr wn+7g7sW4Ekw8juaKD72qhhpYlji38MNFhDhyZd//UZ/8uz/E+8r1A/9luTJ6LHa0b53upmC/lQ5Hpcw TTs8+ tRc5n+6v1iikICmcoGyI0v5FgMJKrxX9Jksj9xV4UnABtM6pZ14Pm7+r/zb/GrrFvqwA4oWMNTh0jf7s SDsNO o78JUR+EvkDNXg5N/DZnnLZXbRmXspDt9N0uiSJ0xxUP3iFscBKpprfI7/y3W/AwaitAD+a4ZrZMmpMm 8kmBI hmessIk3q+Ccrko/KISgS9g3K282aA4/w7qgixn2N+pXiazY3UTCnriRuyQDAwaH41xiZWFH2cQ/4zgn n6ILK OfM838Eq5B+h+C7RRs0U8+qplHYMDVM8DUyzBv2OJmnnSBvfcS09WP/4Sphw7IXVsQO7FO3P5sk97RVT mrJFS PDWqBlzIbD7TM7uQABqMZh+h35CKKC8HfRmD9oMM4OquWKSSWBK35L7GlZ9sA8TodiI0LPTw9eGWor1I xQHqS h6l9/5O9EvES9cdb2DSZu2YXvPvq6wCMwvORbub8IDEgF1lX8TiYN/D8/NBufUu46LUDv80+//82r/5e r8Tx+ /ef3C1OYC/y604b/C3pg5Id6DYcAsc0EaWDDdiUTaexvgYi0/T/LJvlRQ35NTgXqth1Fw/uf7xCeTyb5 4aX5k aqRGGad5mnzHh0Lta+bV77eK5ZK+mlntTDMbjybi+CEB94D/bjk3omVcnjjjDdmSXoy1zvDctj3P6awC PQkiv VBu8/Ce4ehnqU/PGEkHgdRCI9qSgz/9VaG/b9KSPqxxT7r4EhLbBnG62mZoe4mb5N09mLLmc0M36LVPV ynA8/ JKwJfc8kGmI15iCz9SnequCsQvTctRHog1v5K8LkOM+153wd79oEsWwlvdy7JLm8kN1mthFh9Bo66ija S+1Qk M1myHa8xObZxZGXcT+xUS+tx4JyZ6suwxJr7m/QL+wJhIcJ+LdgoA/zP5AK3M0ZpC3+zL9Hw54A4SCG2 Ioj9j kxrax6xjh7R8EHiDpxM1YwDkH5JjD/0Y081dVj5xcbNAwOl9uZojkPW7ZthwYdp1l6B83XtuCvUekhI3 RD/76 tZstoNPr1XW/IAe0HuJCqkSfYCU//Ek53Vu7iDzovA/r0Mmb+Jku72H4k2qLoo0GGXOxzrl1CeQT082e QMLAp gPpIZ1PnNGGe7NQwlxsR8mHv5N4KP7BUsc6M3s1WcYhB1d/anW4YgM2k3TkbZQkIy0EEPuudajsUVTnu IegTD dWGSdsJsiK+9GQ3D4O/nrn8rd/WSs8DvbHWCs+w4y5h7rnYLkw3SdUziBfpkKaTfaYr0MY1ypDb/AmEt K2R7c u0Xk4Q3Y/t/zl7OZw3ExtPIpPuVq6ZjNuc3GKMpL6t4e5WTQjFGrBRRgPAhV2Q85RulMPJ6n/8kJUPHZ vrfpX Wor/SvA/2ieA3BNW5HHQ3hpHJ/NdgXWvmo1D7BtCa1ODvnWM2elLDs/I2A7rRnLHNXxOuZ33ICh032Nd 8R6H0 /5Lz+syBpAM3Q7IJNepsk4suFnuGPK4KTFbia+z+T4iuqm3X/G/OQXxAybqi2cJ57hJS0y7n4+ro3L6w nb6vq AjtCU/9wDUH83YTy8ZFcH/OxIJE4WtVA6Y7YDrURqSre/eAVMNVypx7gj+nDC18b6Nis8JowUzJshwFW W3L1N 3B+A8njcpYhZgbJSIHa5FqxKlCnskFaycI7KSOkk8mGAM+hTrqH6iyRJ+KG3yDRQvpN3uvQhBokfyDY+ EC4pF C3jSM2CSCtHd2TL7H78brnLmYsBIn13LrbKiVIii+IO5yq6A8la3OihtSGY47eMT+NZesVP0e17kGZcV XabrS KzL907mC0vasmC0x81YsP8bPA2qOaSxToz5A2749z26oAw6+2I1noR4/NhvTyQag7lm0RmdPHt5e/xyD HSMdS i3mX4eGkWKBWVJCwqIQPD6hYSwI2A5sitZ9M5+JHj4RsTqw6qV7HV3qm2oQdUnXsbhSq6f2FjiTmuy5V rtWud b5Vtskq9f84le4c889rsY8lrkr7Biz0wHLTJbldvMnCbVUrmzvOQ0wW0AsRugl6lwb1LPY3b+Gub80k8 17Ou/ zKZX+tme0FQ3QGma3sizRbqY7p9o512+rg661rw8mtcmwcnllmoz32qt8r43BxjmlV7i5KN4Tc8S+s/7 X+Yn2 dz+gg2Srqp3AyAI2b0cUMz0SGP/FhfCf/PHhXzmJ9tvNB+57cWqLC3LsEfqoM54fv9xuqsihOoDs8Rs1 A4ozX F2kj3Fsx54E3Oc8T825U88GQ/JL4TfG/7tVqwdwmN4SO8pIcB9aU2650rPp60Nex6ATvbF+kS2fydsqy bM8Oy OcJlwx1cyeaSLHuWFdOIec5ZKZIZopLxMlcWWana/u/dNrhCn9Mtg2wc2skcAefUfU4NaLGz1hAkLX7Z eQdsW 7i8T2ZA3xUh2hN1zYv0jJ62+XssiMf5bQ5VPD352esXdHoU+xg9h9dpnwNSza/A3l/Zdnf9U4eiIuwAq tvmm+ Ob4kqb/0HZHj2HskE74lY20jDRP0U3j428ZLubawvK5fG++M4FNLD8n27nc45RB/f+mtUV03kVbeF7Ag c6bJz d567/ukrm5vKCWn77Mtn1+iliana/Vf9QDfg430D+Pc9C/AT0S9ApcM+GeceqUxi6nsuFn/6Qc5R2IAimJV v5hde 0HsbYO5zmq+yx8c3bE/1m6vvf/0/carX74DmX2XxC9xhQevz5cqZgO422I201ohef0TI9P2bkLiEuczu co41e gRfjuEE6Jq6ZjbMg3y2znQL97B1F9Jlkax2BWBXv0E7Stcfuz138S+np7wp90lqha28LfMhtmzxxvRtK f9Pax BRyj/I/qH9Q/dR1umQ89f8rtLLoKe4Kz1xep3SfckzFgeqK1JYfY5Kf3O+3L70mKco3A37Ouo8i36Os+ Ja4Li gxmFkv8A67YfrHaAArjJqcpjMkdztbgaw3Ri8RTt70i/vyjn6Pc2VoH2o5z9n37xGnv/EMcBeob1uvvU 3xzAV vovl+d351IzFQs157O78Y/kZ7Os4wU7qv0i84y7sju10DX//p2sIvUbmfUSE83iRbNM3w0P74ghHsm/m YKy5D 6MHj5AsWj5Y7qhXeJTrVilO2yLm+Vt51f19fEWHYlBQ6P1RhKbuM81lNUZ3Ec1Bb7SA0SN+PZsjer7wd R3oc/ SGBqLM+V5RhKl9Ce0T+/YF8wQJwf05Te+pA/gRW7pmyLD6WTIoq7vo530Wp5Qo+sylbz59wP1h7Pqb3B TdJqG /B0dVMKW6BZtvy++WoN3m3NstMEvlB0sdJGsI8mz44bvqB970nsk4zDohdUa88exZ4vO+UqJRb26mZL1 TCY/e 0X1iw2eO7yeimjRxDWWmEL5uR5Zp9Ip5FJltV+xmJ5sQ3Xw4A41sq+ynfBnvKwKntlu+pM+gi9+F9vDn mPPsx uOUv72Ech0+1gQzp/IFRIH9FymUXbnH2RmWbZIJcHMqUxaAL2lb0CBuSIQiS4zwqmfaz9ElmqBhrL9Uw /eYG/ smJn3fnqahWTst5jROJ+lm4i11JY0FwdKd/E9uHecqCuE+4Kqqv13RN7puzjVzwKqczdDmtdQ8GLlqFJ p3SPd E98O6yHHL/jAK8kDQywiy9KWzOUUrggCB6PB7vduadSUr1sFQXwnZ9Oe4cQup/VK6IO4F2sLq9RvWbdK aae0S /KLRWE6gFhmPq0zWT+6WGWWh9V11TBSx0+K7e8bOSArqe4Un6geFxxhs06/Ks4pyJ79Kz2Y1vXkrs7C2 0sfSE unN2Uo2dFoqGBH3x/hLG9thl2f6/tMPepWWRQFjnCcwPuZGs1Rh8Rb8fbvU+qigYr8MNxwVgkwT8kYj0 Sz0tf AW4O33miP21L59XcwQ+o27TW2s6OE+rC6DmhUjsm+wSnjU/NKN8o0GO+fT1zP3VZ9GzdohYt+Vh+nj9f b9Q59 fz7zV7H71Aq4ZMC659pblvNMxq8wSRLMG9vjx8gxFyhzRxCrP11H8fMeItUI9bNfMVTA05PdljuCYCc9 o3k4b FkrfQpsWqo+Kf8m1o4AcVmDFLlwy+hR31erZ+tS7Gp8j+kD21pp30rp9Acf26Qtm4+nv0+/Xn+//gH9g /oN+o okI9gJF1djUEay3K+x95katR+sf1z/hH6L/yp8Ml18/Xb9U/QwmUda4fU8Yq/qs5ql1P+jf1a/U79L79 VX6av 6w24YgThNV3j6L+8s8aczwkvgOG4pTDd2phrtiBu08tsTvUmcZg78+a55qpza7W/vU3WD8SoiVhn23E/ U79e/ pD+gf1l/UP+K/lX9a/rX9W/o39S/pX9b/47+kP5d/Xv6w/r39R/oj+g/1B/C6Pklo5h89xI693sMiP0x vfF+U 9uFV3YhBe/U0/bN6RSbBr1yedlDcVbYGgaQAIznp4VBYeix5PgkdcBEQDeoOUYVhoTkGNjpyuAj7qgiY PMoir dMYj/kDPRZQ9Q+Zb/qZNKJQ4M/9Q79BouBDLuX8gSmj2ODXP513gFOiBINZX7fwkMOmyRQ5JwQweRK6L qDeQh peWJLde4Kq2p8x+AJKODV6Rigm5E5KX/nNnijq+SqZwCZ7DF3OPeizK96lYojimsDM+ZyDml7cGVcG2k pvamD abULa0Zi2XpcjYB9Ng/R54bWy4Vz3gV2h6uOJ9oZqbV77Ge8Kq5WX+SL+GK+hN/O7+G89pJ3eEiAc/MV cle5m 5wje+GvnmsaP20I7+WecoHcS+4y56Y7lojK/eT+cqFcJA+Qi+PV3bL5tUzDMwbUbOOfACr7NJBlVX+Sy +TR8h h5rDzO/MA7Mw6cM5PknYgZI5y8mXC3Hv1VzCwU4oV6jdmOy+YkiStGRxEGT3Xicfw7C55gxcXIxBh0hp xHniv fKs+C40f3wNgxbaKuZYFQIyAQNQULtPRPn9zg8+U6dNhBFwwWk6acnSPkNb+PQ2aj4JCkpAmNtAgno90 0rVwp 3yPfK6+Q50AGy6ahW+QO7O9zM/IG7fNoy/NuUnCysQeLv3eiXf0/IW+Ly0L5fetb8lSE2lNvLbfCZMK0 yc/KO +Rpgxgpqofn0hJte9Qs+YJcY+prukHeK+5ahptUNO76jbEMV1+EB8Wp1DI4kAcwS31ifln/Id5qasG/K b8lvy 2/Eb9cUkLULd5vzpwWERjBpcVq8jPjnU9zI4m+qTqDzXz9ToTZE3A25wfjr7jw2VP1D57s9Lu5xWSZCm Uy1VJ umSa/V48qG1lrhr+Oy3rmbrivM/Jx+SP5Y/kT+UQ1lmvFgIHEXz3dhk6dxrvjD/ZX1dalH/JZ+Wv5G/l b+Tu+ ht/N1/JKfg+/l6/j9/H1/H5Tf/6Wz9Qg3J/xh/kj/FH+UO8oh45pKLSVRoz8BtztXKcEtCxh+UXzfvNL 5gPml 03F/WuM8GSkJgOFiphBD6FrRLrexEaCYaQDgYWd11IPdpB5QeIH/eusZnuzKYIPKAmXVfYkXF4hUplmY IrT1J WKJ6SB3Srvq6ArDTzyWD8PKqExPJ5ATws6nyegH39pgW0KDzN+Cy6KMum+KX6WjeoIOg8Vt/Bf+K/8N3 6R/84 v8T/7cpzU3RijVP4EwdBx1jEOARTY55BRidcNnyd/4n/qg1fK34Mm3+PQygQuCIJO+FRNiKn1JXeJgNw qthb0 JlzYFosXP3eeiCgOZ+oWuJZlgOCPCQ5RT9IqAip6YotYU6zKeynmDCSKTHutR89wevfRzBeVFxQg9lPm ubhSr NIz1diukvNp1J0bNxOf1KOlf/e3gOMaXtpu6+I+9dA2osKenf8+Df/viHhcaCOeEE+AP1Hm8snan+IF8 aL4p1 tZe27XmmWh4EZheVNbaFmwg3r7zT4lBZfKiyPNMpOMxiFMqnsVstS3QNiNphUY4yyj0K0zIoDI+VJPqU DqBZ+ 3q8MYciOhK/XCDhBCHMKWdInfknInzgC4AWlblIcxDNDE4aLZhsgxN9aRMiHQLQEd4cKPI4bhKkSh60h TRNMt laXKIZJo335dupnmWHtsydyYugqL0lItL64yLChftQwG0LKpHSTT8JbQOjVBxlgXr9mrBW8iy3S+aa41 f2H+2 vyt+EvnrwPu5t/Nf5j/Wp093asNVVSPsw5ntNSu3ucnXgiwiTtqAcoGSoXW2zotg4BCVo52TjIYgrvOC +ZbFl iCPyKtZefvFjph3nq0QJcYjzSspPOrYQqzn+Uiz2WYABPbCL0vxzm3JadBWxf54R4zwKTfrgV4HNsNlD 15XXl EgHB8V9biqOy4aZsuePbnPg2SDwRQTF9wV8VhcvTeH+Oe6GZesYAbtpO8yojp+5ydZrXsDPuCfWmYbph hmGmY YBnaqPXKs8wGBP3e77KyISJktREKMqKsbpB1nf5PYl3CFuhZe7ELvdy8ABsJubRxaWq7n+su6f7Q/an7 SylWB anDrJKPXEOaCFKjmCZItmDjw2Y7CZ3peiQaS2XeRpZ2ggWK+htjZntmYuM9hEsulCeeuKZXk6mubLzVb Ex6jp 7r64cLxBv13ChtFJpPYmJWdR9842KV3kcc1ZyRcoSJsWi7ad3XrisrKIiksgHRX8SejI0ArHTLwRhzY8 1tTja 8QVeoloijgI3xsmP6gj0IzXShJFCJnVP1hMMlh1ccVciG3rLvslijkExNoYrxi8d8uHUrmnwj+VbzPPN 8823m OiuL6hDmhiMx6nyTt1vrET+ulCilyjDzE+Cv3seNU96LlDcME9NegbPHVEWlGygyK6LfH4rofyjLUdo8 zE+bd 4kqSH2w2bflqO3v3oSnon2t9y0+yjKdXqaDlhmWmZZZltnSXOlWaT5/97Ge2H4LE7KYsCj2mEuJgtO+F n+bv8 CT4Hh3l/wwf59/wI/wD/nHaoct5wB9GQ+Cf8m/4mf51/wb/e5HX3ZNa8PD2yRUvZiAXNhTVF8eTPyMB0 HpXcV qWp19gR/GOftG0mcDm3XtgzTEDHeOPoJ7ESY/+DC9f6Y4IukNBqNMGIkEJzNDlkGiBFY53Bxt0W1MNHl LizAb XuRdWPBNbK5pvq9uNxKC9uM9vSS8KyjR7JWZ4ElI1fypy6U9x8BTYn84lWOIVDmX0CY6XNqR2a6rDQf/ COeAH 9XYWpJvNDR4Kxq7z0Inck5oY8ub28/rZvXdQ3SCOtPlWKeyGEFk+TP9Oh6RtUJCLpbnUSDPUTtRBpSXc MBitI Jo1Hk4aegywnCTnRaUC8TivqPfqdWNUeofRwjTa3USybysqlWgHlyeh2yhnCUfDl8H46GNYxYJS+gt9B H6mqu VqyYd7OrnTkCNRoJnUOygaEdAeKtLDNDyHJR5UTUD7LLiogEgMVahOTmbDQXBHbcnME1EgSC5/XMEHCI ift0x OkJSQvZ9yeAvOnpGFMixOZiEmTPYiSzedUx0yWdhcfQZmTFkv8bW0m3Pf40t0zFjg9a0VQu23noLVbbc txxPb fahlpo8V1i88bV8kr24B6vRYA0pEBdM1CYTHAnDLtRbHNsfTiY57ZmZOpjsbDYgi7cSVW00qhxVUnHkc L113v fdPopqhKeJ2LiofRHE3rAoA9AnpVdB6Dts91p77M1c66/gjE2B1UEUSrSb2+fEb7xc6TSl9618zxbufU M7d3m ezlmuji81D1l12pps/9bIWn63Qb83+dfjegE2G8oyxq/w+x8coQ+PHjv+4hgt2JadjTr1+rmy1qkEer8 Ym98x mmyZ0hgq6rV0y1OltzmB/I6x+G0d9dfA0bqAst4Lp04vBd1eyV0Z8RqChsuaL/I4ekT4cU+12iP8twdV OmTwo RTDU8fP+/dxdlBes9uGaF1wAeeNgWn0SAM389IAd4kgbruPoePueiKhm2+LjYmOiowIDwttERJsDbIoZ pPRIO tsQJwmTef6yr7tjs0NiMjQ7RwXN639o87EmwouJfm4ipX7fLaP495vFdZp96PHcpZkr+btvXmfwfjd8w zKTku 84cvv2eT3RpyXHmtaSCm5qf1Fp/e8lu+w7HAM1u9WI5iNCvt9fAIi7N7BTu/39pwzqSK/LA/5vatBHt4 e441p cAHpCDAaAq7g7KhSfKY7HX8CK/ViylyLOxzrsKhk5LjrlTycTQhZM3/0OG/YcJS7lCnOxxOe4uf1bHJV 8ZKzu tsUlSTwQrzrx5UXo3kK9E7IO1lsxiobPstIOYHoNXGd8vawtNJMC9hB9DBYF0RhgJB1RbHEBf50DyCFF iUrrq 5UGKrqG9+eq3aYNPis3r1ANd8yahaoeImbhW872Akd8TcCm4DiCsStSFca2FjktUglfmo6eGikg4uz7G 6cVHF tCTWofxOBocXz4tZXbv8+VeBfa43MHOG8vYBqvEHm77CbJlgcfB5fAM191efoxNCcq3QKDTwqUIHUFkw 6M76p TstpzdVc3+FqmTE6FG1kPVIu+6l9PnLmhIP0PtJyhbbxfCu1p7PE8Wu5XkPhr6lIk0lSntKCf/29osvq tFf8j yWkirF6q6oTtN5ZLL8q90Oj8dWAvOSA22i9cu5hfVR0Wrl4WNJqdk8sbiq46Fq9/UIphqPZKCOfnwB0O 81Kh8 vuJsVX37hr9RwxtPhRFOd3f0STdDwmoYzFacvJmEzFALO5GN0J1ipO3U1GztD1I/r4ZItNNjh8PrFJz8 iflOV l4f+K8gXQ7X7TJxbXYBHmb51yR6f190Mq4bibTdRNRPSkUr7AdPvrbDPAGlwQAwmd6By9NCG2iN24OSj KHlej l3FEoCBr2+i2lhTtaFxDAgz/3SjMf5CqmSZRyiNB4q2oA4tw5Dy2y1OzzxBvHN1A4jbrMGJL5bbw66w7 zS6vw JAX7EHhMayUb+QmGwlIvcq9epJQHOvUK0qVqCf51ZaHy2CrJqzCAkCweC18kW6r52mHzlgjWPumqfmhi IK0WN BQuox7Gp8PJt5lt+8gPW0joAE4shQdpt/AClxyfqk0jMc+4IDfHgxSYVplZmTGchF2oufZCMxq//sYgr SfCJc 7gxUV4wt8foQw1aiJagZId2bjVHZ1fjc88t/iBwiupSQxVtFsSeCCUVOg9C4gxX7W7gpA6bvBihcd3sE ZjoZu N80zYTGiz+8ohmoD3GtV2JIz+GQPswjuLJZYW1PwUKojbFabL3UynzPNMgicj1QYMvt6nQQI6HpbdmxU QVlSK kdArZnSQ6tPMV+nvWdFWcXoGv+EPD043SjsZqfIrkgw9Lz8HieFr61dSs2tz4qyZapbCOpqUi9rfXjmf CoPWz arKBlkS1I67jCOxe43h6IryNYSsZwEm0e+qpVytVQtVG/f0y03IZOOMEj24nT7RPQDeTreOeRwu93ttW XJjWW CkionnsFrS9XqbHYZEGo2LBDrtfI0vUmLCDofUcnVsARRI9Hf5eT3Q5DuXk84rclHSkofpbGDMC2izbt qy+2q J8WZJYMKnpjBHeMLFGcnNLZB/Katelyn+7DCnqRBWINUU6lR6sQUWyAY2K8CfmfSW7LgmXD6AKAjV099Wu a8stE Qxj7aYajENWf14V6c2FPeHN7gEFMfLxHHAEGBNcZsHpPvazPbnXFtPkisnXXtmA2ZqOG+p/YxAqLlMh0 jINl4 M7kirzWrMSSQZcEN9nSEAhA2pJKq1Bfx9onn+cOOfVUXG1iDwUcmWaLpBayj3P1XnuXWmXDzgA+4NIjw Ram0B WdGBYPuL0K/Xe8WvfxBQsvZ5t5C8ha3jMzutKKau94ZtPhQ/khgq/16ehjNjKtNuUFhHJg6XfzIX4E1m NZq3f ediVRO1b9Cu8FCbXwc0N2HQjlU54xNlbn8tCRvSBxIFGWIP6M6TPU2BnXbggfiK2PMaoWu3ZJHyrLYhw qztka Vx+re4/wF7vduZJbuOfl8RtJRd5QK67sZ6UzAsE1tDDBfcOTwzcLqCan5MfMJMoS7R5zoTFULJU6eAWw g+kNi 13kReiy8amUdGnFRtY1P1t7jw30bqMPsETun7xAMWCFoJmlQLjRNBDL7u/LMTVLeoRq8AzzeTgUD6rzM BBo/s beUpXWa8lpD+3qbDL1QL2sQVFGeU2zpCEEbybYXXnOOvaQjQl8Axp0GaSvA0Rn0nOtiRLyCAgZLtqUVs ACTWf bXYS5SzbzcUen4CgZu1bqfA9DUUdRES3y5YiYy6Y10MqJ/mF4cT8zJkFcgeJzgwDbrq8lBYjjJ7udA7C 1nH0P j3ln1Z2dFviay7eWEmQbsgrmIppe8oOH8cy28uZzU1ERgTgZypuXt3pp7uU8WKju5jJQYtbyqbjy8LIl 7Tojk wcDxFBDC4MTm0xNbBgO+8dkIU0Z2aY5n5FaULsyw6IJuwRQvzhJF8vjKGXEKHuWg3ZfncN9CLfTmLHjG CciJ7 YDOfsWZKc4k5w4W3nQxjao/SujfqDbh449EiOea+mLloTx+19roWwzYMnWlNPvyvXsJr1PHElkNcm42w rFlPd kaQTpv3AYSSf+GSNVxj/MEjKBwIxlOR0JLD0Vkv3c+9ivksDw7RXF5VI2mvMxYKlI3JsrngwAG5a6Oxd IsxYE AtgIfYMsFdVJGAjqForNuM0Cjlz4lV3G/fxt+ln/gUiDBg37DolP3Kd0I2i6nmPszQ+kf/M+spAp1goz 3KkUV M8dEHDslcv/Ug4wZ5nHvdcLKCrLmY53wb4zz5XhozuPK4gZtn8jGkzHpIJMKWcv+F6YLCY2YDY+CleLh Meawk /iTI7/rDqPpMWaCjC2OIqxxTtyMjcuClm3R3duqG+O0S1k9D/hjWO3PreaHNlG/8fq5vnd/LH4PIKxM+ QwE/w 7VqplX+UHmNV7DbH5HBSdL6/wh/F9baxJ2ZJfRTT+Fd3YjoGdU6XeCxwc68kM/Hz3t43WT2tZSF5M+Ft CDRIw bWcsy2M3N4rI6Z4JwErgHSyDolSbLXQEFosJl5oxr0c4vLncLw+JL7FHjife6T8MoU6Ef7FlLpb8cmuH q8Cp8 O7FzFtNX+4ACm4kF8IIkSwuMfpvWLqItHTgGvAPNvcLOJNgi5sYtHOdTBmN9nJjZE2lvZtLRqKeyq9ho Ue5eB INa5l1WVw1EhRc9OhRGdEfw7CMPoCf8h5pUVpAWxYtoq9ljUcGLFQGpuQ9riArwN14AbzpXDtR6rNqXZ KpgHT xUpZVT3kQnRUtWwUurSCjCzReyLWdtKQOqg3y9M/C/VdFXcRtC6O+kiad2LRmcM9DHZRBj0koZ5I1WyE fhboZ /ZrXo2Eiv0QreScJfdsUPsbZlX9ACsLl8ExBGfZoEIKHvtpv0T3baJtTKOEUL4A6uEJ6LFTWiycVEDpP UA66K jPxzrfj0j8rcX5xdVqB/q1oF+r0a8F/YyHqeZ7Jg4+VfmFdh8d6Lhg3OpTjmg7b5M/VqNfC/q1oF8L+r Ua/cV 8MbgOHxQmNtrvVpEQG5fAYxt7a2DxXUAaWmn9UPoTfDGCirIAdEIsNWqfjNvQRwDOxMCt2A+fb9JqeMy nHHzK yyvwpWk7YdFsJu8+1bSJanDfU61z7JtLo5TNYzk0jELYDycTk4dRrdahkDjPk7pyKcv2TwXpfAm7uubx FhgHj BrijFYigGAlZPDDB1hGNL4GKYNvISDU/WVHIkYhIbOdBjnG1VX1bRYUoVCNmMLoHpCbb9gpSNiXzspPx Ao1To WeCNpIbzROoJWuOCeIqGwLs0JWNkN4EQOJVRrLwenMuuiRO3LUWeGnvxgpuOWPxojPLSixWbrd7I8Edm DRwBi r0QQyFXQGXVsLRKKKmPXojLRzHMkUOYcPfSwxMnPsMRCWQl819fDuOxMVYw6u8LIHFpewz5WoWUoJyKF I13ik p0u0dDKVW8aOPd232qCaWLgVDM946HGKovMLXNlRqbD9ijBqfxVTWw454NXf0owYh0xbnAIBIz5KHVuB gkcte MVdAJtNubF8odTxJnLZW8Fo/VQBXX55BU60T6brDsruWOhgPiqqWahpQOxYRJ9qMS2WxlCpNY/SoB+p0 JNk6I vCQqLZ2UUJE+zQlng+QFJfoKV6mfwrnWq/dgz8R9mmCFzWPMZ9pS9qUgeLmgtBgKYh9efEQk4dVEV1za FuF0a SgWU9TGp3T+iJir//g3V7FlJHEHtAEziG4OInG9w4SihLCFZEsL4tMQeFW4eG4AA6JPRrXQNTAAxjZ0x XDj+A FPaSFq/B9mi7oZ0Q72YIPAkg9NurMy0qCxdPbEHvCMUZOtbx9GoZfyxRL1jSXdIGc621Pyb7ZablRujh RUqfR Zq9FQkoDiEtKrAZGyLmzJj3iMZm4cKscF6B08YSdYdW/2RxP1a4DtxdoqbjzbRqh2wzQx34fkpWOv91o dpRiO L6sEWFikenFYo5/OtaQSUnmZLe5X9ZDH4l1oLTUZV9gu1TUjGTKbo2Ifk4GLcr33eo/u5e6BBPeJ2Xsw zbUUc mv6kL0fLPDki6kmQkARWWPizuoNHQBd9itLwM9dERcvl9ollhxCHLqXyPEC5czLEoaGQ7Ru29dU/pK8v 0lRn6 Sre+QdQokdXzBKDG7wBFpfaVIXE1gubZYJhvBCKdgkbgkyLy/Kc6phsr1FJCLbFLnGce7/ICgflzd58a Z3Amc +oEVbs0S8tVJll2K76FeJ/vO7A76+u2UHn9faQ0Am285fRfrZVu2yoazVE1Bg4K9t1bL/g8vrn58H9Nt b2Gd/ Uuyetrx+WNKtZuD+tSaoN6hS2m5RmW2w1sniK0BrgGIUFcE+cc4O8yx/cXezu5+3tGHXdBJEU9voqvgW wlqAw qqWF+zTwQgLgelE4cZpp8TfDJ/cvWlJZS+JycyJyQbsGde+r4X8RWsU6NjgyxBTQ00NtT8rAZm0lW57u pbU69 Ir21KUaqu+or8/NNiUuZows54/19B5Z4/JC9xWEvH5ChtA02bR9wu3bo6+2c6kGdxTUc4Fmwz8+slkdt wkM2t TOm1rRvhGHi7J7umfbjEetzdNhC0bNkZDL8VR3przFwdhbl+RzHZqpijwZtMzA0zNSp29bY1eOUdS4H4 MZxVZ iEdmsweWE72IQceRL+hzbJ/9jG/W/X+O7/YnU1kkKDOkny8rPG/Y1AmTN/PFDmvWvOpEjvkjF2+17qwm oDvyx NVbpkmaZbxi5mf3wh7/Q8PDp17qefGx0B147uVoz744kxYa7vlri7qwT97jFv5vsd3SiH8QFBawSho39 VI7uq Trent/GIcfTeeL3PQ2+R+aT1qPjQozjRikdJtkXr+hxiv/TeW2bneeNDzz8rI6V8pcd5fL9JSouxQz8wGg 3TQV6 OTWDINeK8x/1ETcj1kWif6vGVMu0aBVgmCsTM1jNZG/9JKslgnEpILou48LCXmMKExjObZZ/7jy8/7fD 7O0a+ b/aM8yZmrvyxBa/k15V/1iCh1u3E9MG/seEqC3Q5TjFKxBJuGTgDBBDULptypXWXWIstk9sHpladWFGY Wppx7 5uKGArnZJOj4UZDxHoPEsBRTdXVLAHEe9PRhCANeokkLRPHoWrRla6JE8TbI/bZMANIZkHOLpD9k5s5s 3rfpX eiTGEM5Rh65+am0AX/oWafVhvnqYd/Mcsg5Y9NCXnVSzSyrvlV+yUpmWcSZIpXuR2gtX2AQU22MGfq65 eFqsH gERLN9ExUW+FyxkyQW7FT/iVkNsNO5r/y/QxA0FHF80F5E5dWzO1k1y4UZlAPn8FptR/GgeRNflSC4iy 9lvwi jQfwAUfPxlv/pZ+dnwQMmPe3XQzFLFySXtO9+yIJbgn+r/lCQKB+98/5P+b2q4xlwykd3fOAjK+jei50 CaSvf JWwZeF1Z3f/4r353+qy8DXwHn0xzIyCC+SRWA8c2XlrSGmuv2uavl3Evmc9Nq835npcS6N+HW8uFmuQi epSP0 A1tpt5KCUczB3+Z/1/8Z6akb+d7IMiDVnhLXH0sLMhicML/aCY0FZql8lHnGHVhiJbPA2RdN4gzNytdt PJ7HR /CVfD1/WJahD0edbEaWXM1wBwxLnacdPntSahEe2FtoZI0Q1WXTn54x8TB8vWMH2G4j5455Sqb6y0YPA EYwgZ WzhexhtokdZl/i63XZry70S/wT/Eu1T+MUqhrxtPhr7u1xinptkA00O75/RGmriK9zv9Mm2bCf9DELRL FIuFF YHTZXUtpIlUO2Z12Btr/8y/yb/fv9H/tP+s+QXhDpYFj8yoHOVLltuab8uz0J1UvjB/pV+/s7jwkSxy5 8MvWv tQiwf5uOM3gV8QEBKfunHmhNkj6pRE+d0yxqtw5ah08/1F+U4rbFr4UOlFInnJcM6Y3Xb9VX4EQ4yI7s ZaC4n F1k67zg4Bvz95P8n7RRWL8ZC1nwtFw+37w204ScbWH7A6ijyXv0Oy3ZOIUN/dzpItljbSCtdcV5li6Iz phGc+ kCzMvOGQ9Q+bilQjdTX5qKPI+gFyGXM/Qj/s7P1v60d3PQcO8wG54sxS9yw0lZcrK4am3om5CItwx1T1 6fT8R 3kacf86G1I5GU5YhxBjvnEIXA9/ruWvCQpmOvWOvMfxwU018+tG5X/YP1D/q0x4QozI/vj/HH+gv8u/y v+T/1 /oJBbWXo6nD/6NQCqsSqqcFMvYsVeARz/BR3nnMaty8qitpAPR41fJ1SPL+EeE0bSdP3aMNox5FxxT+S dpC9w R6hckp1qo0FWpAiBu8P9mJa7ZvNa71l3z/f95oPWVzkhgSleNuSD1ZRdKBCZjmKFrDX8Z2iZuoQqN669 3X36n imEmA7lgtrNzy2cZbXzBSvCkpiCXwt/ui3mt2xZO+zUui/GRJ/jr/J06ARh/8/CKvYH/B4658qu1hz9w UIt9N 84XGhlWd6NfqffbdE9yf9kwMqv4CoTW7pkiTb7XA+R70D8wtpEbNeFyt3Lay2PVfqJHr3pEYYcBt37og vQP4w CaiTZvmC2HPhLK3sg5x0WdwxBsCK5WKybWstQWmNP3CGGePU3xrUs+fAEdYV6NtXfw8Gdieu+Zn8S34i G7Uxr 5iyvNXfzoG6lK2Wh4jzgtXuEnaDboCCsDGo2aVlc8V4OJhCZq4d7h1C5Gb/nRZAdJ0i5JtwXa4BUkZJV gD+7h /CFYXhJBf2MVlsGbedK+1z2JHEzCp341s0aecxgJu56wsjAoIh/XfTATYGeryHGekR+bWrIF0qerWrPL DFifl +7htDJ/vQ9PClurK5Zm8gYYsQecCFkpsW6QX/VU0uSyAckrdQuSLz6WAtV3vPAB3X8+sr+b4QfNmeycF xcb44 TiwW+3h1aV4xI9CO2HMhdZJLxQvE14mtfS5UlmlwNhaen00Ezncglj1cRsREhvfaKk5gC8lXUAlm1Ryg /Cf+P T/FT/CD/Cm+mHkxypP+t/0b/EX+rv6O/hY+n+9332u+pa4Ibte1h/uW+Zs3lqrax/r15einSb5B1PJ4X divV9 wf81ZsYcX9u/w3+Y5T74R90/xdfZ+jdFzBL1DDs95ZIG8AapzK2WkBzmh0+h4cYvtbnsMZZ6K+L23Xvp GojIZ Et0bJ393ZlecloAdGm2Pyx29VuMuUMyZSmw+TRJtM5k7jYKDqgF6n1L8WDwBKzjEz5/pEcU02sjExHgD if+pL Z3OzmQ4xL+6xm6b8nJIdZ2tqdZ7x88GFtvfwtEhr3ilreN7eu56vf1R0/yo8K1emQh1K0cUKdcXMtj5N fvd/Q zdV1l4QYxjS1a0qHiUV/wUx7P7UAcFpiJHukbQk1JiOMrrxUGwU/SICl2ZHv/+Z6Q0wMNzDNZ8DHMAxZ Zz6u2 jSQRE1RwIfQY7PJqTkGwYjWUFRJsBsyM7gycNx4Lajrp2A1m8M1Ln/bwe1Mm8OualmFrRv58yP2L+EqP Dvf8e B53NGubPKKp+z8YlLeo2UOoNGVnXMTFz8UaZ3eJbeFyzmQY6F0XpnRDq5L4qbJZQm04OgPdpFhnLgxIL o0fNE s7EkWq5nxtxecuePW1mNwIW3sjeCjFOyulGVIkZoAc4fQfNv7MdvDRGFkJpXJ4gRyNB1hpqJqWKkgzCH ZjSjG l8zScUm1HazFNBYlGnNR5vQuOP6psdOuBx/L8BJ/U/ipdW9DL479cJXp/OFLQTHg7TpwaZvNFUrxwPkF jCKkv bcIwhwp59P4l4+u7/1UnY/z0172EKXI2ung6Dw5ZEoxiP6Fdiscw6kbKSjT3uf2e8Xg366wk+e9c4gmD Iawjp 1CcSLy6vptcUFAjv8DQZVL9JkQTcod5WhWpR5zAfrdJ9ZmncrmxDrQDmGe3l9eFurlHLBB5rlzcYbTYk lZCe7 yV5nf5mR87KhQ+v1WYnkbYceYRo7dwspAAiYEw+vtiG9WASpoBQcSK6ZWVDGU00ale30uAmrY/WyPHDg oEHt2 yHrAAMLvzrWe51CVE40OHVgpB9m8HZL3DjmGmv7a9ofV1tbEZlar3eH3/fv17z8MFDhWzGv6akSDLs1X Bp1Hm DSrNFxFKnz05if9qzdabj3dK5ioDAKP5Gyej5k6ENHC8N8qPx1jIJZd2/kL/9aQEcKVSs1tDNn0erOjV pOp74 bR8c2MZQqSXQZ8Wri9uh25vPjFwvGQNlJFGs74XueMpwFcgcNhMH6UE3ugtXpAWMhWZPssupg02s76LR bInU6 Q1n8jonf6sOXZw9e8HXEui1fE9RtnzFgrcDZofbOrx7zVkd5LKHLaoLiV2u7YnODbg4lYlTY89BxGGim bW5vj Lfiv5av0CKkBzngH9uQeT5pxqAqZlY2tcntJyPF2Z+eUb/uGs38RIdbnUC66AyC22PIPynAXohsM5alB 9wdFZ FKZWQ8rJVMDwwACT+D0IYLXJj9nA89BxhmWRHo4d3LfgLMMapGTxjbiNSEu2CCAYaZF1vHJnNGg3DBu+ 2WlJo eKLaz9FpJ5cpv2YgjDrl9sq884O73+An78OwaGgw8iwIn1d7eKr5RsC31ko+a6VU/otoL73Z+QBtle48 SEawP ROVQFTfxo4uQrovdVE7qwUHvj1i+7Oh1sPyqBysN0wRpQRYzQ/JkbabaRoSrgR/309SuUvb7YxnybHlh KtZh0 6tPitbkMPiJzVdFyCl8YXqBu9mU/bP0Mspt4vgV4FXB2n0ExY5lpYEwJb00Vyly3L364RyqAfw67pG0L h/4aw POleAWNJmjq3zNxCuLs8Jv1r0uduSSnt94xnGlnJWmEAskg9lkgvFuh6hzbhlX/rafDuhHxeCT1vddNt pBwz3 CcLcEYzAKyjuduJWPrliWVY2zAqYYiLVzuZosxmMIdM7QJjoeVY0QMnUNu/eea41OnecJdoTunDHq1N5 hWfg6 L44NLjpkgiKiQrp6cWGbreKp3xm19RTn5k8DouL7RXPIhXGOnR5wo71sgb7MAqkFIOgv4aApJrDfn/9L XZKYT gFotBc4ai7nGZSwsdFsUW3wU6KGjjl3YV2m9ubt9uxgSymgdHmHGSfXvrMFBtAce47mAYGSZElwcUl9e 4rmeT kws8wP2muMttzHPTHJuFeONE2Qi3vWrxYyvalzmyFxTADz8XDC7jd8T2c4Mg1yn534UNHwZCzK2cD0+/ aZIXi 3GN7zyyFcNA+YqYTXtFwd96FEu54Ct64h5PHcw57u6/Hw+kOup73sCkgun/IcPdJ3wa/e0w72pvf5zXH WK5/s O/fywyC9R6u4+hlzU6EZtDIO/VTQJVs02bXk/8BPJuzXUtJ1AIaraEQL0Ljb0XZ+V1ZtNYhKIF62cA39 tul9D z6G7dKst9DHL8MfDF6Y8b02DUHLcpgzi0mGQRmyojQ5vUkTLe+PoLVDJDg2M4FrFkcUpdW3IO9HsXY36 rrJKl t87n9EC+aQr2ZD6CwW4WpVZ7fAkXxoTCw1x22HvnlOySuKNsFBaH/BgXXQoSP/4APVWNWvV+MPXkgNT+ 6c0kN Mv/oUlvdENWIabM6VCkWMQCFGADSZBVPI5hvkR/wuoP5xY9++2Ib7bKCF6oJ6fsrKBhTAR36hwA9d69k cTJNp lYEV02e98GXQWMwz2dAd53xHXghCtQSs6DbqfJLcnXj/lR0dCzZeObojIGW4SPA54+h9iDwVrYOOTrJj hp3dz ASG2xJn16qBEMak5wW61xA16xS63d6CckE1IZTA3cSoMYX70/GVMdZaNrrGS2ENAA5zWkHpLei9ys/0G KJ/ekaterina eKrAgWbn3i5zunCbTcV0JMj3UgFkLdQ/eqvHT7lL2dBJR31konjW9y75vib5PRh/06zPgXmNznjMK8QZ l/t75 X20s91BYK+sUBqpw+8pDzDvioKH4oFcPbzDEfCqiL1cUdUfsinT9UdUqkWo98jeQmoPd8wf1tllJ6uDx GU2Zm 3Tllau+yHTzdzSJu0W3liRQAnbC0V59l4geJa+cjS7cs112uNkaKtympVrpT5T+1Rz1deMtZ2rarzcry 1pX2e 0wG+CX8T/GYSLrf8uEnyU5drNhSdpYAsEgQhMagRdLIA+zB2sh9yzrUYKTKXdlpzZvdMovnBxuwYC9Bx mmxhB fdrdA1wpw0RDs9BBeDCjDip0l874SGtQ4xBAo4bMQvn4h0xvzKIpTSrzXsmgvLLLaXPbH46lqwSCOsNt /hbpc l4E9rxa2s+in2uvfmN7cO6D7VX0qOApewh/r0384zOXoA2E6wPO5Jb/LQNqMmy9+tuDk0lT7wGJrIbJv JMbBX NIhRuOvGYXO/cZRsQ3b3SPfrpDWp12I102e+mor469xovhW+NQYjpRUj6j3zGOvCpQ7+/J0D3+TxZ7s9 MX7K3 eG1RrBHq5bTJe2dHehFqlnjrn9nqeiFx8tfXs8cDFS7W9Whns3rWq3NltW6aj5OvcOFQovDq3e4demTq Y17NE 0Wtb6UZUD2HEnqmUajbhG4jepH8cgG7NGWbxoG518yn8u3EeicWlERIbzNY6kCtnSZroXucF2f+0R74k bFzY6 +L+7EdZraCm7yTAx4oEpEN8LMsBMOy8WGcgYhspjT4bx9tnIvyBS1eZl293SDYzgORZ2X0BlzWlvPAq0 SSIvQ yCUOq3fbp5AX5vpWb5/vHRUZGxdXw+i4nWWBuKOV1nLg3IFzSlu9UteD4YXHv3z3LFDR8oGXzXq/wIsp nGS2l ToCi7i8SAuICHaFRWZH3beUIBKOrrR9mmvjC07kthfJCKlJYdIzUBNPc56seOi0AwflqVh9LqiH5C5fF 8IN6i 0P38+L4DWs0/IZufb4b0SloLdZbnbqZkkN8xf5FOvpQVdT7ZVgO72x8mAafBZOhXZ/TrNBHffEpkAXyV 2KddV D/QzLOEg+O16bAY+sK2hKbAwJxV6u9e6QgsvuDk6nVHUyjDUOhxCyTPF7xmdDvn0pApiafKMVI8tMUo/ 9iXml BSANyuw9ZT7l5VGIoxwYSg2bpYsPzoITxw8P67rk0NmwOt4Hlpix/nnnLIVMmEp3EgWOGgJf+J9shUtu 4AaDH natXW/lvG3uFHNkCA54JM/Po5jttspF9reMZ192d4uWfjAh38CpajAUUki44O6dk+40+6Tlz38n7lhGs VLob0 1FzObMXPXtuKXdM5MN8zKfoDkdv8wIJeURB2hLt/4mG4+dapRglkGL2jar8UPVltMzbz6esbeUAQxSZk 85rMC ijRfeY94yCQZjC8TRlFp0FvziuzOWsAZWgXLoDpYgarWdPsN5bLzWWdgC6CtxUJvh/pX1MC8NmaTrcjb Fo5Qp jrLp5fek2HvO2fvx8qqwJs7Q1iZe/Sz1KsQpOJ1pUFqZ9enHLR3UYbpQOQ8zfEABhrLSyak6rOpJjOSr oQ9zN 8p84d25I2XtTEKlHRU4HKrXYwJgiuUPpVM1ImIH0j5G0rCg0g3T3wdi5iOFTWdpLjbk3I3Wa++2R+IQM FMVvC 42QmUV102Lh7u0wR4NbXqRBz4q4dn9FCnu7VZJ/TgQRVPrV6O2Ly4d3EvSA123nSoIkzZxnYWV01yfEw oHXNt gfda899mlikhSJNPxJt4WrTslOR6m+jn1oqk+7GnUwhpwB6/HpnOkJGL/0z7NYflUGALb5D+xBcFiIiS frFrh TIsGOT8NFKd6D29WAfZ1rC5HrKlQETWMtUvhtwkC0wCLZagSp96qG4d7twDjPXWWeR6ZSawwnavwJXMZ 5nFlh lDpGpejHMLrdFH8KE+CfAD76ak+w+Qlx6de97Zij8BWfgxky8KjXJsJZL321x+6EY1ttmgEwp96ylR6r 3X20y u7P7+chWr3VWowzG7eEPzPUWb5xVDu42hKll5mXsS95FU+0O/JFN0EPn3ibXq7yKmhqs0SBgUcgdkEBk hCg4P W2CSoFLagzAEV4OzHqSIGd5G0gysAahUnaR4J+tk6a8mYTvPJr4Wlo8yrMl6hozFYzpl7bn/zRLdXteE FLHem wNaamzB40GGIIFXadevpv5A2cSzDNw4eVpMsrq6Vsh+b29QkpeHx93dxoL4cd3zZl2uiaqos4t/XJXZr lZ0cr b8Na6DLZ1pHDJNqfiH+G1u3CuDgUigsOFCQ8IXLKO4hC1mEIJxz9j1qcgGpZjKq2C4tw+JZwyXxkkEub Vmaco dkJXFdsqBcRCyuvGfAybLhVinlzVmVvEnKnTWjnDV80+YV5OwcK8/ej/NRmDvXbIimGxMg2mU1VGeq3s 4U1fa KB9/mpHh9dJs5XkLcKzqb3GPYH6XJenZukTP5SnzGqP3H2YTE6bnY5PEbPn3baqPPX4QLTR5rS1zbu1s wRGnG dFm55AB58oG/PVz2lW8i32E4dNMzp5rLkzKDKYwzktDKP+GUPQSL209fZIa6eGTwyr9Q+/iysG6wb/yE uXMnj J8b+A7k6yDMxSAW2rxw55+24ru0fnRxUPhUDW/cdUjpftXktgPHKlzxaMeyNPZIBDVMU8HrtoY/2dzAb qQFaT 9dbzulwX4pgLIZvuGrBxnX8A9n64br7qd/N4j0113y9gXmir/28WMHZUqplgHNp1Qlkq8iqjBNE3u0+P zhu3q ljUN3v/763adt/TAkT8qfhwwefjv/cSgVAQbTb7Lsib0Y51Q2tMpA+AWf8kZaNmkA1nL/YXs78y/Nh+Z 3bR9m mAeww6Y+5Lxycg4li/wB42mjlXJpEt1DWZN8pFGL0/Lp7Jh8s/QX5t+qkry7LLa5r2JQp4pCcWrac31E Nd1hv 9+icpBNbYzU36y4A+tRBsV19W1Mz1kGywEvzSI6Ss/8T6HBIGY+n5yNDKtkTcVqzQEtHR40vVnIys8ty 1oJ+K uMGjjibS7f43Nkvqufu1t7aKJOdyNMjU4iUgkVMinvSYtGvK+DrYDTzSmak+TklG3nS0t34OqMOoqv+k WjC+5 079lMP0/dgq8176ANkml3yHipRZoe71ChLgo2wRNsjHUaFz8/n78kq7oqgk2lv/zBzsmnHrupLLblum3 O5+mr 37jsuos/h9u+0WeO/E6hZu6H3tJWAPEprdeE87yvZ/Ghdo2aHycwaImZztiycT0D1bndB4EEC7wIaKIL usXN1 XcdiBV1EdBBqQZH/O7Y6+qU+oLQ9wx5LtECO9J0Ua4LremHxiYXu+O9h/2OjywL/CrVGDf+iFtK1XCI2 dQYDW +AEn1EHXPLEL2cIOfQJcsnYArapv95+Kvyd7clqAJ/5rhzSRPZZSyfw6r4L8uKtNhg8AeLEhxfl/zREV icQ7A +KNTjCYSC6p9yAjrdK86b8cIMYFXsSDuI0QZqGjtuTk/DLHDPatsz+c5/fszk3xxVRIbs/vHw42/duGn O4sVz Hv1qogZ8uPKgD37fMaYfg9wT5u/1UbcoJJvhhYS2YkRB3i5L+WAuHfwq8RxnuC1F8sQlnyNRBuLsoRiA tmcvy T4egdW6yWHdj8P85t/Y0JPh7Bs1h+q9wSb5g2Pl1sxA4X2IBCs/3/p8cgdj7lv07n/4aa1ma3hdc0vPx rFbfI aMJtdhb/qOeKB4esZMY8T+YyxMvyk49pvr+LWFFM8W+wpW+LzEXcOkgsHH4Hg7dW1ze/iS/cT1wgjpUd 7reWN PpjXHZWKojmSyaZrLZjnJResG+ZRF/jD9O5eUUskOIeSYCKHaste7JQMGNGQAkXmln2hzAk03/9geNPp JCj4B +XzpM2PZ47EwicOlNkS3r/faJAs3/QbYRlVbfkFswO/4HR2EUzlGqbiCc3It3jZoSLOcj38zTDv2EaRW e85X8 AAQDymJFLiJBLO7YkFN/qEJMOtiomiE5/A9Yx/foscQzyldWR6j3OCPxDOG+xP+ZX61/oYl59VAxIhAi 7P8fP 5xXgU4+fet+G2umXvQpnqxG7W5RaUatwCnOwdbZdPTNvj7XEoY8w2h6sk/ztqFKbkFhRbbLbJIBKHIy/ dk5Hs yay7W2Q2Cna2bfm93y+QUq6AAIoLm7M5nxWt6Y79DB6v17Xz1taUqSapv9UmZcDS6R1wAFcOX8I4lysv oQgQa qqgndWXZxKk+QAxsI9ml9R8AliOWhtPU43E+Qm8/npECv19HBnbt13zUPrkmL3VnyapMGGjO+kMcI3ub NZoO0 UcpN0TXIKZj9VelqZkErvt3dnBodCF5PhK3S5PNDTGv0S+5vgZxz59bwOtgMu27pd27HLEVBEzRvqQra 0htYk BpBd4R84qe3WsTCDvfQ6OvCMGMAf2DkbtblirvOc+e8+pjvVuIHfRbYenCLgmTpXQsLYBp2XAfXfw2iX nmf7t emtvxZz9axtPJuWdKc1OoDDTynz5mZ4lOIafUD3uw3sTsVh/19Ifr/pAJhh/iOnfphsKsx7bJxJ8fVMN v8Udg ZdYyFBBlFBBRbYK/D5BCbhN830Hr2RUMHQEcclJhe1fyqDztLo7ZjM6LVbOhonfC2z8OIP67umT2bd0q VCV7a 6GqGWlsLQhF4KABDnJJRPfB40Xdw37IrPIT854Xzu7I3vMu1dgXC6hJGk8qTmJGUzZvj/DggVR7Mdrgz FQ/+c l7B2W05+qJewdqUv/9U89m1Ke+4rzd8VNIjXlzjDEh27/O3JUEcTUuSYex9jvYx3jPcVtIzj/1pnvbTv votWS j3kr8vH1JjqZAZHX6x+wm5nJ5MeC7iCytYZz4zFun2T4azai7+guC82u5jtGUettxPEFeZVI0YLyxzgo yPq7i Td0PN0LVosvQ5ji66AdVmrp2wff6GcZvCZmf447FnwZ5cu4QPLpeRLTKN2u40YFQxPhWG/MMxP9P90rd TlYxl aSt7EjkVmeethHR/JQ/HojxZU5tnAkC26iXqYv/gkcsaaoqF6iSCKh8v78ACrE6yBAeEPHzVtigBNnYx gJ6Xp luxCiwJHuAtXSyVRu6ioAvGjXDt06+s86V/tbAx++45JNwpoalIvGTL95K3U1+7xm55RLdnwzV/c1L71 J/xe/ vG/pgNR8qpLO0+bahbV+59xeuPhZ94pwGNVsfj0pU6jHTEBhzuz6o99b/hYAiVwJFBoEi/lx3a4nVc05 Oqc4W c8k3nbW6y9g6DbJIEtJpUeFrLND2C4kaGXF7dwZC2WngOVfWoqynpzzhT/wenuN/ekeHyGQlbVG1kVVe 931Z6 XfQJmVTCWXCMojQW4pKDalrTsxGtKQCjLlwrVs8xiOvURGZ7tm3j62tY3YvLf8q7iIMMmCpvieVKk7kJ I3Zwx kiW64Z+JiHBLhk3nLRaDThPtxtteT0u3uocXPyv0lHuOm/O78Q6MjupahydjSOdDuf1VF1HhRpAn96rg +005N d3/wlPcYr3tbXAbrQwv844nIg+wHF13FLQP4kLr/7fdmlD9s/4wf5xjTdp3nwhwx2LgARBNPJ4N9KSjI u+xYc 9Rx2oVGAXKmLmJNFDUvRz89R8wKCpV1kTKNJmpWFsCrvkpHspXWO+ZYu8YhKrwvzJHBhOj6ewfqNhW0G m4yc/ JZ2+ZMV1IsK6VHfDPrAZCkbzKnumftSVrswBh9M6yWVDYGVqDcCKf2hgzr4gDnwY7dBwcSmOYEI+2wGy huihj ZCmUDGFrkINdVkaEOEHX2YpoYzdVERGEVn8Zt8IsQms1AQaHOSw3PrpspBQ8ISp3PdcMz4TyXzyPvDoZ BrP11 MgWXzV6hVasc3At00hZp2seluZPsOWD6tVOLmopAlByDceqV5/+HcOZVkPDNpv8Hs7uMgaBCEfrQyTQ3 g7RZg uStRVkNJwWciBrVJeAmUZkA4SKeUjcNqWXxlOvuLD33XZ6ec9ee2oV3od0JojRyjMpnJmIKZivbIEOAw 3jO10 ajJJzw6DmZFGyIQ0wFLYQRGGoi7UXW3KJcvHytUH7fRf4OJ0aUDN2cMXfOBNDgj0FQNcYKGUlR3pY+FS eqqg1 5GbXJ3h+GMBr5IITL9X9nKeq4KG9uOGDSgumq8CNJBbfrDBl64Ix4z1gzs4B6sc8/QNP6nXJhAHfBsp0 G69sr DqUVcAh4zs2Q1yJUmUWEzMTJED1BsHfm12ZUQZGOwG7dIGUlCraLq1rRLw7XPjS0bxUbwkSG6XnHJHIg B505U PpDxTSusJyUgJJ/mpmQiEa/wrU7ChCqinJl6MlLps35CjtQnLQHiAZ4hm+t8HZ6jTBA6KILDiD9ehUo1 cijE+ WPhooA6nYKNy3iASlV34w46OjZMLPTwm/7cKQ5MVilEE0wHXF9ChkIHmEbNkVH2rctNbNC+QStHS0jOr 0BfVy hx1ZSsRYPIcPh5pxhmDpyd7X4AeCOfEGBdpGpcYzbDyYo3W9OllY9PCwWuA7fWRzSRgEexr2O8+MSI23 9CJQW MPygcj40AJCt1H0CIqzBaJjG6sILusA/4ugHuRdNbhxJAsPv3MAgooBpXM9NU30hc3J3lhq1BYwmsaoa vLb9M /wf8nk1f59xURn7RrLXSALjzh7I1oq02LxwpdMtbMl0lig84/d29CRZzRX8Y8WOup0fHmJangFcC8hUw nyqkr w4kr7r6oraE4cO9rUDlMuYH8XSYgOV31WGNpvkWCr2UQh88wUWI+1uoNxytUG+gBKNR7G4semIZQSk8a gaNFO 6qFCR/yJYxCQsWXLZCUblQBrSTPpycxVTnkqZxqfnyPwSUttoxxfQICsnTiI3laqEzqmCGEGB4ZfVmhI AWKj7 E39eM+oYWpUs9QgrHqShFA+q9+NoZ+bH8BY3zpeSv6TxxKS3bPZr2rLv0g8G1NqwasOUINGQhPipD6Fc a20DJ 4RTkykzF9ohCgGmpBgmtrVmo7CRH0qmi/JI9V68MuZPcv8hydyv99yJ+Z8Ae+GpEW1bvppq37H1a/y2z SVYN1 MR1ngtbuu2VkOSdH0ijW259IURL3z9hI2Jx2n8RQeenlvbLige5xOpvfyUqNOa8dAX38WEwFA+ZxX3wC BG4n5 O76TCXdDyJsNntvkaafdb1SJWsmw9YQmyoVAtdHsQhC0BTO0eU3CHYVNoexLoHv3Lyb7d9NGcqG1GQwY f8A1I O1GxsekI6PFrO9JEbQvALaJwbSjxvUIAyyogSwxCAq+i5FisTu5bGm3VumRSkKXj7bhxQ1jlLkKGjnqD UgLNW E+QxvNKbBxp0ev6PCaCziXPdo3RxtY9EedQKhRAYGbWU8Nr5g9trK2MJeiN3Ta89ONXncnvdmBoZ8+rs RBs9H hwWLlhIb94FWErSlxBguJeCC3zqbpzOAwcliwBl9KaJlSsJp4Zp088+bIftB5boBVqv5BwLKzCCRG15E Miuha nIg00NEC2VR6KI0WNFK5N03CX6HLUKamsX5+NdKCj6saIixpZeLpsY5T5rHoouVmS9KTmsVfPy3SSIUe eblLa 9ud3ClfUOODI3ZPmGdHfjos88cXhajDJbLXVI000Dc87UoI8GgoBNXNZwCD7cuzmWMedPZmWaKOt5XVh tYp09 a8y8vgCOYU2UTn6NEWWG+EHkkr4Ktz80ARrVSnrHGFPHz9nvbt7FPbKs318+EEQgdwvTBMCET7oAIFqB L9CcQ zCUUe4DlvwOSGTSzLlW1LnLlj8TjfIO4YUr8nfNpWUOkey7vhOsHUwh2oDLWjUqpO2Wfqbek0Aivq//e 07UCn bEoaVQQ7Um6NFHekOef10jfZH8IMeY5OhCJ7rfbpenVF0cMW6U+sVb/9rKhfVhLJbaeB0YDNefdtv0HY dMY4o C62IkjRZ8/GQhr9qVsJEkhDqL4k7ONsBM/HTmIyfRFtujWn4KqfamDDkh8a9XMMvAB0H+IEi093zCvTy KlSgn NGkNPi+HxjLxv5gBPbVN60cMt3zkwd/bl2oSd6zs5ayep0FF/qGeYjeu+KsZASMp9eWQWwgMgsin1QOn GhWn5 jit2+MdPN9gwVUwMLXOAbRMzbXKOf3Ng1ZjyfFobcsmtwZQ8ZHC58IW8QYCe+mBrZbzGXuMD1wM91FMB O+zSe yCJ08f9ksmkrkmI+zaBTo7VdbuTHtbaaolGeh0IX/V5Iotb8nerTr9gs1vk81Pt5hxQ/Vi2qw4mx24xp agcLR bmjX9waGggsCUX28kr4xG4NeuLAt5G/fHXino+FiwdlXf+uLX+68t5q43y2/rOn0CzzWvOU+VW6PntSC szRGv WF1D87G9Os5NfZ1qhoJHlGttCn+lc8Y06R8OKJLHHuSqtUrGP80gOODvdTFofZeFRLSn+67G3gOtDZbQ PeZec 58qlrFYZi+VpmFU6ESkl9X6uI8xvlr8O8RnD35K/Kwypm9qGT8I+OhhvjIMBnbhM1M61IMHhT9lTxgTs z90ot RrLnCJeluDCp10XHv/ZvKCyumyAa6AC/8Fa9F3dN+ob6S++0+ik/+88Qhys4/KcHVxFYPn+Sz7dQtlQ7 oFEis CWc72u4Rd77vlRsPF4iXFN21YIUcP5hgRfFIPRQHja2WELreDX2DG3mbgGzFt2Rtxt8BJpvgMR2CuZNj INfFZ RZ2Aie1zTcAAXZoW0sqrXzdNsVGxzbStxKUu3TyVUc88C2SUvcXQmiiBgjiY90w63mAOc+StvCwl8Drp kDH6r hKz7uZ7Yv8M2JkTewT/iBKbzlgwCxnOk4SWr6Lo+4PgbwdZCU/wJjV0jy3Pm48qxy704m97M8sWM0lkw DUmMc RCn7C5eEFjKQMzEqb9rFhSVwpE4E6EbVhqL8t+56eEv95vCI4FjCQQcp50COiM9zcFa4HupH/B9NetLN /MJB8 lLpArFnEkio9N7WSaFrht6AvFMOrhwA2RxIPVi8oWtI1us6IBehdzY721wdd8DZTuSaLFL8DrJsU/egu 0BOVZ lsXrFN/bs7rrUwsqdX/M2ihK1DGLjVvQuQ8Deh33I9bbj6GXbhwozIHHI1Hr477cohgtpxrHBizcuB/7 pfKx1 wTV2UPUMFZHFUlVc1fXj8viqVSpbWOTRDQp9iYlUwFDxWarL1Q0aAvxKhSOu1VIrGRHo158FHDdqmLhG uM8iz kvGKF0/JsBCdiWMREwmo8xlcyEJtdApyXM6ZoCH9aJvS2oPLfMswsI39offZU9/Zm1uHFFo/atXkQfev 0kYmb aPcgqtW9RjlGW31e4gWenB/WNG19RkJGORcxONOQ14HJbOVYt5Krbt4Cmlyg0L6lSefsJNIiTbYJ6iyT bZzQg c20prtxZ6ULO4NttGW07rDVe7813eefCbJ5H4UxUMfe24UbVBDyPAXEDs8cSkfRVh08ayBMSoSXAzpTx DAlrh DCci3Cwkzkz5rFuSLGrcpfeAqn10aXPvdSDCn7zl3XXsI1ns1xrpBvgl2mabQ5fqob2z1wbmJhw7uowJ 2BeJ2 Zzu9oXxkDb9+P3JCGRytY0ehkxm6nfbtTrc3E7UTQQSpeL74C/Iy1cNmv8Rl/LE/Cp/R6XL+NJ+tRCEQ UOQVD CbHkOiVj4f2JZGNTXirjn4qlP7j4b8I7vG7q1wX4sebWxevuO2yf/mPy4+KIRV0y6cs7rUx70Ky099gS l6+CC h2RaYV329qsfq7i0jfQTBS/7hbo1xaC/yUNyeFvVWitol98QaZfbsxz1BxCVtvMJvZQWGKcSCgplcUWj thRnO wdnkoQ1nWueWt90O+NRRXKIYrR+6FXcOMF4tJHBBNAeOysAICzSZkllfXHw47xI6YqkKq/WD0utjKz4H peVJb pzZMFTUupx5VDDPV9tkIz03CP1MeLOaDPWmaHHkgSYf/CUSQ78bw/KVaXMuKnDshbVJHN3eHZDS0qUJV MDW5Z UBBJE2LlNiNo55JOY5sziBrsE1B7fLdTK8R6iobt9oIbTt1Ldp2sA2dD572MTC4aq0QxO0ybteFxczKJ C2hZY /aZW6tLYwWLkOMcCdyE8hyGMYC61WjYtLTlT+WOJLPGqstSrSigS0b/oRtC8sZXBz1kFu+rGwZWtF2rS VqCtY QOygiys68PYRvmTViBAo/kmCM9G9L4dIvbAzHKOkJaOwNwXnf70Q3rPAm3VfGPnz98V/fbngpgXTH1B5 KjSVc FNTH418K+xSYVEGHMIBczrd6ZU69NQbwM10U+bX/FczpeAxlWbCKFVd7mHkLrPRMTV4YGVHdqFlWd+AL wKR2e nCqV7JoIHJTddpvM7KJKD9VqMuk094UB0yV7VavjJ8Ot5HukXDIf8r29KBAEmnneWbQuG1o5/BIz7bSZ j7Y/U X1PGO1dnTDRQ+Y/+Wq1/3msqSGSEr4y0jzyzHkoOSKM8gumzcakcC11Nc+WBVAOhsTLw2JTqULDgnXpx AHS+Q CM4CEbZ1DWEj58zKU3r8+fnqTw1Dvwo3q9RvA+9MLO/2jFpew9fiaWdMvk+f407dPLDzklIp/k83tTwo qlDST 9J7H33fyjgDjqmPD472EoGJgDiqkiCbbYkt8uFOdMvqvmIdv8+h3Um57ymHu2fLQI4GltBpUikh+zYmO Tvqvp iGW/SE2nXsvtETsYObm5LH55RnrYRJl7vkPj1mit4KsVmf4qV1k4vUPssI8IgI3xMHQfwMDyNK7H8Ibc Q58pK b4oHvRvXkoKCaaURPo96kK6Ckjq1UP0cHP7HqPTQThtN6Yk09WIQlRztFBa6Ut2xFTvvoEKL2S1B0XnD ZY/T8 prQdLcK17dHVgNAJGO8QcG7deVYEmalzc9WS6aXWBSH9/nJhrPKYCvw61oqISdpL2tj4G63Hd4txuesx 9rudN amsx7nO3jB80bxHYGWa9hwkrQ7rJnprDzAXA8yvlY2qh4KNmoKA5CEZmPa1Q5Q2MV/80G2o1KvFB9F8H iGviC 2NN8dtUmCSvzJ1GMjgumZ5SOy5YFc7RfvitJyvY5U1kDChF3mQRgJZwR5QCxksQyeBEX32Anj10592+A z9/z6 1/c8c5B+7Jk/ufarfd1z1Wgu7rTKeixcxh3PywUUH1+gjKAew15dbMuAasRQrC6USTl1XXNvQB3fKM+t qXuSn NvvKhZdhwWCGu9MX2QY4WqLQCh+ryhG/hsF9q5Sh3kSlPQveCjrWFjDDTbGehcjZeJ3QNsoFV3Wg9DsS Lg8uC Y6AtuM5Lz5pXruCENUnm6COPYpA8eCdIIsk/jl/Bp+lFXiGDfye/dbiCMMuQO1GnunbdCERJgOBgZEwi csf0y aRHfzBGApRX+y7AMI+5JvKSHRInq1yW2WbaBWKA5IXUThUihSLb6Y9hM/py3sy7HdPgJyVw6wWy3Azzz N2u7e 5/7Bnsiixp1+/qy6w2vg+le6+fnjdNvX//iclA6Mjd/2czedlBZp6/+DlmwSWn4vaAoPyeqBG79urrC4 XknbX xwoXoG2tsfZHE2m2p7cdSphv21ozcgmbpe89Bi+Rgh7Ig54LRdKbmK52/PjA/mz4+dkz4t/Gn4Btvnv8 znbut n0untVIe0PkPi8UySydYTm33jRyoOGwN/HWSYH8G7RyB1OqAnTcMGFH+w22I1fle2H6oi8SuGEd/IpSZ pzRiV yZf5H+Z/oQLjxQbXcSCODkf8cy9/wEbYPYUoaASRH1qO8yro6YAlTQtpcEbU10r1LwzruI4tQsnJ45Gz O+PLR +J77h3XF/Orx5XAdxCfXjjOXX3oWj4UYWH136FzG4DAe2dIqLmcIB8Uz3+kdM/TdHPeXG5My29im1/nh wXF+n XpbwxFE3vyv6bhGxS1anMohUjLZ0n+IJ3xihDdNU3kQCjlNXtRoiJ4wShIWPmypbnpWHszZ8hI/4bDTY Ulm3Y QJAGAYmBuCX394veL18Q9Sj9FiKdQhTefM9r2a9j61ekG79bkQdPijUY/QMzxzy0BQr+5wsxfz80FYQ/ CRjnw zrGxbV9EHRKYQl5NEzKJxvins3ba8v7ilxUlaMb2BNzkTQ8SNQvc/83WTsLRjS1yE4q233AzM99K/1nv zbGPf 7HF1QNEPkZNttyPWmrXC3ncJu3BbL5bub0Ok5ZheAAGiGk19DwXt6rqb1I21Kd+2PdW61/JM40Zp4gSq 9lrRn y21wj1+/I7him3I4titCuCrLye2TkD9dPh6ao58vEzv9qHQ0LCa3PUZKneB5rndN+m49StqsKU3bP+e4 iTjkH N8ZRDio1ycUoFE9NANPL92ZLGYNKa2xkmeXwbXf54dO8JWPQFVHIB0IVlfhEfqNYdAgbv4Xiw8l2YDql JpjTQ zkYCSrd3La+Jmo1xxZbvnpyay7s2SCqBe1z31fJJacHCUQbJbAv+TewfC1VoNAOiUZ9XQ1wKszen0QG/ YCWq+ nNUKOi+k7Tn3SlZeSi4jUjrBmKTxiJMN2lVv+YQdlOIUAbazsmDhZcIoyMdhmVdIFaS0iVQ8YaTTnDyt 5Gw1p JKnPlirvRr0Z+nkcavljC+8e8GECA+xt4RRSVsyhRfGxEAWI1ny3q91/9VGre6gsM91xEjfxFKWi2az+ vypq6 +mobMp4sAuPv1l82c1ffSTam7eM8qpxtSFCJksRM9j6/yRJZuHv/ARvXQy3d/kJJ1fO5+dqlzQkVrgtP YNfOe zt3/o7zD4ceDh4WqY/7oDvesFKsPo8xocOMoPbgpjeRLg22JIL+BE4PyQRdm8B72lKdz0Gky5Ol++9d9 5Edzm N5aj5L4OlIyeje5mCjxZu2EqSrUfV1HBN4u1/U6gzpx77zE0jqP4dd4Sbi9ZyEuWX5I57JIFMCQMLOZ9 lKp4u wDduXofo6ZBXUAmUJYT0265Uwi7i0lBa1yTXsg1MKNIjjXn8Qxcp4SXXwklcPwaex8vr7w5UF1xIQYTT KcY85 bWQ6YpPQbcpRRjSY0o8XpuxJlMrDF/u/T8OkPOWaBGQc6WHkat7O3nl033VnXHEBwLqZOb5ASoXhAofQ N8kvB bdk2ACrwUz7gW4KV7lTQG3auF4Yp2x3wuG+U6IaALOOrDQPWYCoQn6Utm+Wmla7dkvgl7xQcbTWPyrOS ikjlk eAm0qM45B3FUCUnvCbZq0HCxIjE9X40Rj0n+bNi83Kjmu4GKqLRKTzceVEU1ZFqPgW0JBdCqdWl8pioo mUo6b sfNBYpFLBBofIE7j7nT2wm2dKTrOjGD5vPRCQblYgvllEp22+VySC8tQkaZUPe6nlSTZb5T/iin1+m1e k4biY dieWcy6FKBOYEscY6pBUQtB9xRn+RcxMZ/mCuuFF0E3WLhnlyz4IAAAJbPzliu8maUj2yfo96JyL5+sheppard jM1wY K5nk6jydcakBuhlsfzRCDFf1734e1UvmT96e6mUKGXcRYyZeKheAI6ba6P8c+riZpcDv0KK2sNXkInR2 7GNSE R8Aaixeq5+Kls06Ct7YmRD0069QvF/Ovst7Cx6zv7NlP797TA/r6u1tvc8OLCFoUjGUkBn8hEMOhxN6+ nK1on i3yEPe3ROXMhfOgkorxTOFNaE+2bDh5XNwd5vl1HrmS04oHM3MatL9MyWYpO2pY0q01nouFCTO9mLVVX GwhMR oQHjIZ3QiLrbPmPUg+u15D7ZgN0NWc+SH+YS1Qx9E2Rx32YgwD+Ccco+OsnZCrnNWswCh7DAGwl+gKDu qI4ln EO7J67YPuRUDufIPS1tLKmLGoc9dgr8q0sKStW4omIBRdDvWShWO45HTqxBaMf9+70S1rDaPCstZPjm2 ZSmdo 3Qk3wJShBwzrh+bOp+vQPeSTMB3kYAH4lL0VmhuMYoFUpUUYTRPP1yzZJ2ly/Qd87BOXGbp2gh9YzrjP sCSlA xY3ZEiO2epdSmbE0GesoxcbZ+ou7Od5JGsuDmAmYkBjDj5ZIhMF7OhWVl+5VPvJMcIJBYforDmKzmXcE tXHHG r5y6aVNpb7EdB+zx21f+A44vzA/D8WhFULazHRr6WsDtxZs8WlhigobrO1nuPP2SHx0MST9qTjjeknXy DHoRw 5sF7nyv0owt84wIATEvqxPorJcsayLnZsmNAVeC0Tjal1Lu62koZlo/BPQGZpUev6EvVIXLHBDgvwcZG Mjh0L uBB3Tl0cBGpsRILejgnYwJ157qEnjwxHTnsJzIqPTo3z6W4NTSviyHSPRz1APCGGbHBBZqEx7dxWCNHZ h+BMu GtAWUcSN5AMbVoE8AgxUryXvLChpNEMv3mM/oi4iIr+jHhJlMNN2lq6k2raGOZnG+bJEKCpCsiunzTRG 35yWE ZT7/jw+LDfx/gA5PyFh9F2v4xq2CN+DB9h+Ao4tblQUooz5xWiPSWTrn4GQmNwFQJh/BE25prxb1Wx1M 3Me2o SuGY0IYZXBViQEJDeKzxcmi0+FVpPOUF4QKX8RNGgu1rmCQGZsK3U7wgh5XXQI3H2bSEElgw3gXCmT41 DsYqt I4gZEQSZQpR6eA9Xi8wvhcoMgRaGw0FkcEf5qQCvPY5okbKLhYyHmdw595qvbz5Z9rSiP6XwIm48Ahv/ Ypfqs LaaLnYx+kb2fl2rXl77IrGZ5EU/iK1dSUIz0z57hZI5avW8gg9lH5GG1R1B900+Svg9vs4cjUS9ziM+/ NXoV/ AlEyYN8BYwbVyO7b5Byg++M1t8l94Pr0Kd82Ie5PhSxbpIF/+YgLC29oPGq1pb4vP7mI90jrJES37RyC JwSWh I4CcAJUZiDy2J/zwoE1Jt7gxCiqkxD9H7XqOLtWtIBkUcJnp0yIyjBt3BGC+uuYqK9LFE5qBiufvCp9i VmBMZ xkNjP04DOUhhSz0H0hhjNz88wzLlv/r5DwRtrA8u/AMVuuDeqMC9slFllZtk5S8rrJDDmXyaIWN0THOA +xzrc 0vWBWlUUzA/DTsnCJnum86jEzZ8UwT17QqEoEgI2CsmHZbT+6ZNRyeu9hWRpqhsvpWDCyuAkE/+huQUF uRyq0 4ESJUSHlJgRG4YS73KXAVcNaAMplhz7emWy5BD2h/PcQumD5veIYEnx+M0Q1N2MSzYIzEwRRKzzObZOh qPUN5 thAebvXBBWt7e/n5ERB92jpNNU4x200lXF8th3xeh39prenfsVTWegC3c0ILM4HWilSbr6tAEuvcVeST t59U8 0qYa8NvGaeX3h2KK2YmSFaCofU+EUjcPfTZNCOJruv1C0arR/hC1BvXcsRJWRa7yj3vnuxtzA6EC/JNA 5tOlg cMTI2nse/nOJa6XhIi4bBwCljKBgCP1DQ4InzJcpsGxE9ANwykxcZFQlnKIKELfWkIdwDHwb7KZjUnpf CcQxB ELgKWYbMIo8naCuxT7zV24APlJ20mHu6gbLbiv5O7DqNRvjQbUCHF7hbHlZ0RlbcTwGflvMIpwRoVhrx UcH3o hoPHW0AUXdDRGmz9E2UR5kkw/dbPi8EoXdGT6UluEoHGCe5zsqDTfzv/LgulQ5z4bj/vZNKepVzgq8nv j+VRt 6R4HffEajEHzglqQWub7O460csbhpXs/URZ7FtaBeNc7dk1Fw6cOE2mhXci3mBcgae/8FHna/TJ9eIgH /MV8l AnyJmvOyxCnDUoSoZsXTgcREX9ytYZFTQGrTK/6FTrusk8ur2NtUbuQcBTFxg3GxPps8vuM1XqTrdlfw XgKHt UxD/T3Bof8Wxiuf1LaeVj9pCqzXaVckFe1MXoRk7CKc3/j0VDZdBIwp8kmegkTs53bx7+jhFLMdzXk8Z EJjRM VPaVMvDrqH6IYGhiQkO6nehtEMriaOsjVOlfcqpsnFLYAzjabh/ggdrCmimPbUAD/m6hdWSlUt/V4tEq sUnHK eHTRu+lvZf/8g3wSjmL3s1vxG44y16IXY9vXu0vc+SO9DdBP4nNuoJ3R6KlGsC30QrOXeeDobBfE2AQs q2Vq2 VquN/7P8eoqAj3NFs0L/4L50evV9wYzr6x8kYCIRPFTMLT3wfto0l1csM1gwbBcBxTFXGMGPEwurGNAM owvI2 cUl+SoPY4rduekhD5AyTaDgVqSeU6gRVqF5OGOqFh302TbKNitUoZm/x7S0rEt3veTDIaQLX4AUCm7ex 7aDiV HftHE+ZK6XLgcQ5PnO+iw8VL+1YiXT2kF1zONv6PU/WztwvLlbXBkiGYfWbyn0qlVxCTFBsFSbCat+ks n/9e6 ItNx70xkyLLJXOIOoL9nTcdQdEOLD9BwVNgVV/Bi+7c7icefh6wwjg0tfE8I8UnLD7/ln62byLnx9Jce d6Tdz 1cgyi242pIRzheWFV5j5Mm/MZ1+8KKr/+CogVGzUX3n/pSHd/my6AS8DsCh4c8yyhbFBNgADEmq9UW75 bdq7C P5FtGwUQAaBvTXvUfqr2l/dr2RvjoG3zJRsx4XxOb2pUke2d12llwU+6R1WBRErPkqPYo43HIup6zSUr 7oBCR 1CBE2R3J1u5AxVyvEUvoUSM4YD0QcnSNkJtEWwCmEoY9k7QRYYKXYQv+bJ3cqP5YSTxnxH71nE7R3/hx JWgEd OJkX7v8tNkn+18G7Vowcd2k417y7csdCd4KxDTEpJCSCloQKnsyC/ey0jpJ1xUlDjuWBWzhINVGu8JHw 7k9no nKLRZkmTBh7EOxrCvHq3QrYFM3/latJ/6grjRcQj0mzFrmW7Y4gKTlLKUDzCh1fedta0AEMYgaXdYWkj qNTZ5 mGSofJCLUjSgDDAkM+1eSKH+t7xz3dNEtx9I3XB8JdsZItvK73gebOefnonZD2u1fGh7i573FPxeZ3sF qpNPn Kcz+oMCtNj4fS0DPUaBGisfla+rQIM53TKRDtRKqRALjGspkcuB/+oJFmmJ8nccoYmSqLq5r57Iam9Sn 3GuJc m3Ce/JFyIRb9mY+yfUXsDzfHYA7SmZ306gRqba4ftsJ3OKen1Jm7NefVhaYvr5FtKm2XqIxWgXTtxZLM tM4wR vwiI5k2dyKYprKKcpledeY3AGbIhA3Oo0C/6nGTnH7OsvU8QDatXmeYyeqhhpat8zJtgSJhBCXOyDMZc w7gx4 tG9UGkm/mWvCuNcC1t8gsHBJkLBt3QQjWJjwMe/ijEmj8gjso11J3wHRNg9dbqnaTLggFk3bfKwbZPH+ 9/YvS 04tnxTO/h2gbvOUlmFpt8+6ybVBfEa/9YDeX0ijRH5ee/hNhEda1QO5Xy36c+nf5ey0VHIJIdtIP/f1H ob41U BFf3Xh5UfjZTfRSCLDaipnqb4HvJa2sSL47nCSVXK9KzVBvUeHiRA35dZQLU9gecVS1JpcJvqkrRn7Pb uOmJJ NuB7lqG241VcJ6NWs/UPgZ30J1KDXhYFzyNONMyAt1PfgbbZRoId3Um0Nhxz/k1/H7+MH+M1+9m0ev+D fV9dN iecfXMwSkq4/46DOUIKFZ76VMcoMtUhjnNjPYxJ5NGARjeDNghCLaQ9wlVPYDZ+klsV6OmKh3yy7vogQ VdQF+ nO8495Oong2bNSBSXWJ1tE59UkCO4AYBzrW0EVdb/uyAgrKnWw96fdnElo8+4TF7f/C+N/cWTcJxU5Po 1/fw5 tvxHjuLL9IJ7nSJ9zEEJEG0uosN6JmZnTgy9oMWcYwGWkWD4bLShQddU+FVxi1y7bw3+N7RvOt/0/ZM7 qv2n8 GOiB5E173V84EUaE8vqpKE5ez+coGwpg9qXvP4vV7v+F//LCofsPKhAUjBmsK1z56WPd5FYlJLeh27Zi aOHE9 V9ZEfFvEhcXmaQTU7KAcUYKPoeXROc1IjSpKBlsaVyjAHCERB5XfqxLquaZZqvloMIXYKII8LWceGdos Z5U3i YK32MNUSZsPB+g9rhbPci8rhzedxKOpZ6H4xLuIBOVbpAol0ANDbpkEHx5AcRF1Z/rlyXJBhvWDV30lq iZacd fuaeVmFXsHVVdY2NaaiulWh2l+UWHjqsWOvYbmmuS+K/lFAhyduhA2CXvEjkV6UD0HGmCNTgRz6hvj2R lV1gB FOnshqvJMxzOM2p3J4QHiHh4Zy+3WE0p17Z+2BF9JMUpKzzgamkmyhZe68x5mdMQfiF2rx2E/bG76v9O 0OfKj r1gu3J3Ljw/rGvtmwAKmHSS9esvoYhc4uNzO6OH/kbmH6FeceXgUQXaYnMWbRaifWmuKreLvXLBtUArp s5hlh hhuxgh3TvOCpWcWxb6Z+rUgz0SzwlqJtdTqyXzMg0VoOUS6XUSFiPQQArCbAEZSC3ZjSOtFE2KlYtf8r x3qJX 7z70a0oOrXnj9ogHARTA7Y9wTnmeDkKlWSnFMeXMxzCI7TUCWvLXgc21O/KWFRXh17P/yO/e1AQjmyWL sAp9l LKYc7Om4CVWB/meehnBooMHGRfBakbcKHkCO+NqKb6kAthIW/C7jNnNdpOStcrPBRorl3nlEe7lbpUO2 YKLKz 9N7HGW1d6vt37a6Fma+7X8l2fJozdENYxwQap+gXDx+z5AWlGEga1fZ3+YFbUArU+kzr7e7thwAqc7u8 RpbeJ XmC0bGWiHKCkbrZBDgC6YnuG+3/R+xvQNFrwzjXF97Mkv7iJ7OnZP0WJ1ooSMC2O9Ml9YqhkWLh3OF68 CHa8U WzhkBfphC9oISh7e5pn4nR6MvY3RC7xqsd2FtBocJ0bnPbiJs3nXRMYTkHbUhF+VC1qZvIGZKlkDJiZa NjxrU ETYWFjQenkvNTv7wVi+1iFhOVjxT+WFKqhKLeoUSHuY77L5p4E96kr4OfU4vhfcAvLPgYiqv+u9cVCWx Z6DNT rnjekt62dov8empCA5Ro7fRIhTm5UMOQSmsC1SrUThYMpyyzMFJmWHKeiKtLeM+GdwfmuiuSmZjmuaE3 AuSZR zDWy/6tkVA8TZ2grD49uZYaOE7uqswPW4/mwuywXY9WjeO5+Ze+PAb0EQ+H+7+MbafZdcch9+KOT2dUy Vveq7 n0fWf/0dEbzk2VebT+rJT/oJ4YvrdEc80kS7iy+o/mbR0P4qh0Hcy2GvqQ8vk1bD/oTFTgh8To6jQ/fy dM4qc xQVisXSCYJctmWNBoO+DdUS4P19jVJ5l9vAoTZZgAYocJ+JUHczQ1SKBw2N9x4mwlhmlREL+5wDatOgg a4BxD iAiNBFRDxoLRZHSzRSoiVf5+KIH4X8gTufYdYxHhLOm/nRlK5heJMERoSspjGrlAqcZRmK6qrkcDZ0Te db0jV lEqw0w2o4qp6Kz/prRd+tTXIpsx3sxdhG/nIu13z1Vs02PSk9gh1ORk0sovrmPn7xCINlLBN21yBSJr4 BTkdh BEcKXjkIyCioO1I4E35PRm8FjfUlYQWJ/gjHY541wibjWubRoWw8sNFOlDuVfm2n68uXKxgnWI1JUs// OWyPW Mh1w6jm1CFeQBFQT2BPUFixDOr1asoqHygQHHWsc4bsvgD258sbhJrtdPCWSfcHwFmBMabSKvir1j5AY OEeOk V9xaaUF9Mw9ZfHr3FQ5+5ssVYv5pgcMmIf6CENxt1ps/NLveamVDjqaQwtfzWOpGww7XgkeDJyd7KDMo snlU+ azqxxOTx6BExrFab/K9VmDiuriVc9yUdFYTAG1UBa8WfOtxq2QaFPsOKLyUlRGVOTH3hI8ZhyDBjo0pc 6qB5S I4paCTkHiqRi+hYGv2v1rL49YF7hQNjfk0D04egnqrwPVKJvsocSYZkU3iNP8zr7En/B+A1xDnzIAAi4 MTOf+ pcVCGx2VuYLDPSbMa3c7bdN23cJvtnISNJiA/Osz/8s/3Thecernt/l95X+7DuNcpm7zyRLZL4e+V2Fx x0/cz 0p1jqbi5nkcO38gJ/0nh62kr24cZZrJP+AuJo070GfPsaIQ1tJJgmopvuPYPtI2DgccSXfgLwUzQfHyg PXx56 O/TJ5Gsf4ecEX0pwoyJbezlKlsY3dFO8/EoS91ytwEOAqhpuvfcd/1AyS23m87plYvEVpNBXCaS5GjDh DbCR5 P81LnD91IsKfOJibLaSnQht88aCwFUv70AqMJGJNOyM0tde3BXkyw2XRbujjdF3VlGIMCEYmoApgzVEm SFxW3 KBGAQbM0uArUQO4Tli60Ng5MHWOPmZJKZ7CuqYmA6Lb1sJlUICE79cUdAvpPbbb3dBFMTC0UcZMLuuyd AintU hQmchBaLQms5Zs05QfSFk+Fq4F/9zY7Or+GogWAnik9cAv32Ebhy9DpZW9ZyPn7E5FbfruzrKEZEuwiq UDfDK 3woqygVhUhMJzrVkewffentbI60FhoQ5FMRYP96VU0z7bZRQSK5fc4tfYeAX1fBcAMXbSleA3QngZcLl GI1Bc zhRHVLETrLTit82lZJ/VXKI+35GCB4qeJzjEhWW3lPizeab85Zajt6qpvsAr4jwEII5UCHWhr2zPURaw 8q1GA +ihdCCe7wYGRkf8AERO6JlKR92k+SamdXH5h/wDjEa8ngjAtkVRkiV2eeX5m7imMPvzYNgkkWu1k61PM Ny9kl 0gduLX+sMVK1ZDcUyj+Y8709QIHYux80NUHwEI4lz8fpSHxItB7SERQwJ9glMAF4B/O/8W0uPspt5xi0 zpr2/ Dha3vi0TDCJAB3Im7OsR5MLhU0L1cupWZut73OUYSIDG8FLrs9sT2youuL7SiSm0OHayJaWWaJov1SjC bI4uo dVnctZJUryCz+AJtA0gz6kPv1NT5QDZZ6snElzdcwGLIYWGDT2m9VPt5F+XQBc8h0mZo4LWC22cZfkdX 0ORAh PVSwKuIZuBhTXrMWlhhswuNiZSfPReCVnMMoHtEqDB3lBnF6G2yzHpOJ9DmLMDcDOA4TCNNZPNxaqPiZ gAt4F t5+DiQnZo9QG4F01toSKIRSAhLHUTE3fLylK9nJx4JWfEKosTAbYrb8dDqBqK5UiEctfv/VOv+//23dG 12mCg Pm6OxWLZxvGeNhBI4YlidGHU4NVqHojnQzSfnTUuWC3hQ126tUAyUcvgbinxr0SeGOI4+CreH3xqKswt ccu9s 9rAfo77U2+kgMyr+RqZV0aFrFj0w7u46ntuoqIFDTnQoEe0BvIRQma/NbCeIebrEZoUDjwW3UZ7/37fA FMATb IpZDiJZ4Kjk5BawpS7MFsWIdHjKRNSPOO21nkmNO8N/sYSde+YkWobsIJn+E5YAxw7WAZClQ8rfon77X ZO4V/ rT4W0bb3C7xy/SCHG6KI6cmA1W/CDuo3WytcWQNMFutfv5vCgEKDTDHQded6k2W/s3RNk9QIx8umXIJq vrtzB qG0brEOukjr/G1Vh+gLXSwWgJOoKEG/3AklJ9Xd45D+D0pOOh61ZrXfsqy+N6qtijP3CZfGaQosTdmsS I+CTX OqE1JPNBS60fxqU/V02QPpRFi0UdS46YY4cknMf223HFhknZvMK+X4I84E2YdQBZvrs3l7YFOhEJaFxj /WH9t nqgPetAQY1JRGFbuwlmB98cwqqH4+hWC+4x+p2nB6abrRjXlTWH8MrY6N2aEXWZaxP14oBqaea0PYi/6 nDqWE q7CJKvNUpjjERi4S3B1wAKm4aO1b3tOaro1JutTZV9jIKx4+bu/d0Hut/j7lkLNuv7JitzecLo4iVh9z Ks2ZX z2OcXFO4FOswtcmDOF1qB+Uxganh0n3B5oCG/IOA46ADnX6b67+9h5IUAE0b3cFxUtfOgB5a390DPSrx 2Ge6Q HJuwwA+oLC0fqUruI2rWEJ9bGMylbKzr5lMUYP146T6ZwvAjfJ9ezOygP3RlhombV4L61439eF6h5mEg 4QJtm oeQ3rzlzkiTVO4Loq7Hdaxm9lDifMV6bRdnQddliaO4XQDTYhZA2wy3Uk+IhvT+yPtk7Atqh09lm4Klh 3bZiV MG7BUqWRtKLSHuAxbMyeGCGbnRIA1F8xOr0JJwf7RiHJ8qHtD4WCXbtZLq+nlMkrgDh0fYeMidr27iCq vvmJg bex0e3FGKwPRkn0lND1fJM9e4huZjuK9+jMtm7ShoWLFokGcslyMPy4oJfJRGpNl6djrlncgyuy9ZI90 sYiUa z70oXqdsAV2dBnAs27PvhxrkKY75ZCxSZ9jrV2VmuytWdL5exYcc9T/vPOT4GTUEY4S+nJtyQ6hpytJu 1LR5L Rgz2JcbTjjD7WJe3aQ/1ALsdDCZjuG9PxRl1qDLhJxPyrebUn0AfQ5HFeFXLX9sydmQmTcKQNtxoCdjW RWT22 ztTs43xYYLeajAPadzyOYi+Qxpqr43nWukoBnj2QKPnc35SOPjFeAZKgacsXU2mT2vEGTGY11WHu1phA 3XD+6 46ExcNrZ+sjDrGse6oQ7NC34U9rMQVrBPsw6k3iidb/HiFNUw3lFK90lNJaXuwyEoELqj7SA22WqFAuk A1nxc +pNT9Sc6OuN+4naHf72KoL/2WdbvTn7hoA96U1h1ahkMaLGLABmfo4iuC3ZcxF1R/fA6B9sL+Dv8T8Cn hfei4 D2a+ol3vg0hmt+ey9J5Q2wgspX2LpIKB+sUzTq/mUjg9NelSmGdeKbmvhOWjaVD94Vi9DKIT5Fp6fe0O +FICE pC8DFhaRs8uHQUReXTxQwiPLrbqWJNO5i+swRQBrjX9HofZRwaYndbbpkqw1TwFm197cpEnMl/foys/8 qxG75 OVdc+s+XZ74gz43Pq/nxwvUqvj9js1hw+lBC4H241+7qXp4XsbjAH24kLtBaVU39gpbTfE7WseP2KjAa ciU2k J/VJqwskXo1FmHB2nA+Bd5Hk034AH5ksOuR+RKyIJ1siz08XzvBGTcyYXrjgmApVvR4q3kwzF977o2uA /Pi6F LI+kRVD/qO+b9T2j2XgIwGbjeduNGfBWGn4OFFLJA+GEa4E6B9ImkNkTxsH9/q2IHrdPP6V5mCDFuLhZ UJJuk 8XLljfSMhdXAurcF2AvGM1Z3SXIsugAKhS3kKdSRDayvL87DR/4f2OfUvzLXGFu9DkRIvtJVBwwSHQfL yEVsR v0oNCSS7qvnEmCkttN6nMtWxT/Ngvm2JtLQPpfLHRXa5RPtY51Rndu5oFku4BFjHOWHcIdzP440ZUvra 6dlsQ 1AUMeiaHk/4Sd1w9VyRizbRuvjFyX1qg6hIKehdWNsvOkYAlMS83iSwDoz2awKNjgo9t5E9s3f746Mp/ PDL5E WMOmFcbyh6xoy1ePLx60X+turiAqgI70vPNOplempqmVO1fMZi7BuW846BgMz1S60ZW7k1cmW9YlERIX +Lu8+ 05UE0Fg05v/rzWvBSbWF9QOmGhYGSKckN0AaGyxsKyBWIGneXb29SKxZq4zyG2zeaH8T/eTw9J22iXnz wY0IW FZeQEuA0jS2kIurx/4MORSBOPKGUmqzFauaa+SlR3JvT52sw6sCGFxZatRG10R09WfZc3w7f9gAv1b5c 63V7q 1QIa8dsTMLV6sPIrK9ru76kMYs65sjlKYJkdMAf2cKzyLp8/WjjQ6jdKYUr4UTV8PH+Sjhv2DjSdn6Gz VARAt 5DPS0eO2afq3mzScqQx3jApLrGC17Md25BrohxUn03RzCbmUOMFI6TFl4S01LvG8EFVzw8ULJoJgmrDv UA09e mJ0yCWucFLnTiCEdqKn1L4+dPuOOXvePzvc7/xiTuXMjzjdn/5fOga1zCFmdne/dUYDRVL8/Ex82RZQ+ POO9F ftgrkN/Q7WQ329Gjka5genOB9jD8n7Si32iG+QTtoqeqGuiHNtM/ldDzAmXez5Yj5HFapq8FG8Mb1lt9 6wR7N Kvk5dsPLIWMzMln5vzDCBZQCOkyVv9eU98eeykmB/iGYnWUUPCf3LvOOvCz7f2D9eGiflj5auXBIBGAH e4ywz RSGxOXiGlEr+rFPSQ1FwLtcu7T2RLwftwWAe0GxM02BC+DRxXW3KBXgFBalGWboU9HD50M1m1QRSw8Zx zBniJ TF1xeSgEc0fgNYnTpU8hUGtguM/U4pfmn9YY1DbIMvqEjepQDA8S6KYyLKXWDB2ytke07J6Mcs57VStw Z/dZx PYpU1MN22rOxy3K4QehdYadOoqHqwF5mPtg2+t4KljvJiSenfLC4ASnF8s4RN/A7OwcE6gv7yg0fpyvG WpOcX 7Ml7fVAXX7fheyzPwNDmcjh16nrYDtPrUMP1LQ+u7MnZtoL0aGL4q7kI3HhIHsDIISBPwCkTX+LzF4Wu 60w3F G8rtbRfObN8f645B2kddySSMgRnb4vD8PtpUdZzfVUnYUqeR1Wcrbr/eyFYeOOSJzAbz5kIR5z8mLJ+C y2e3T w2GzMeeZh2eWU1YcszfYUTv45co6XziexM0ktGILLuu/Cq5NfAn0Inn6ejVxqXtCZXmNPGa5bbFUpufy i8dfM Xd3WY0o3E2nRi7LgtawhNe4rk992n5s1ZsrEVriQ8eRp7YsXnqArVZmUzd1MZuZumhfE2WQyeLL2eodk 3Q/we /yAe1b83stmUXgiUQLxhSgVHxuBo5nPviz1FAqCzFvy0bJN2ZPaA1szd/IcZ1VqI6weMO7OKYwE1ZYud 1cbx1 ABdvt2oeAVftBhHCj96m0jiR/+BGYt1Dmkv0uM3R9T7RQAOuGAJ/ExNIgF1zsJcrNjvpHHOkXKkQdH6V zGbD4 njC2viwyydRssY65Gkgk3n6OuQ/hhAvRlY5hymX6opH1dlFiF6oKazDH//gskeFhYGjF3KflbunbyepC G0Ney mnFLNLV/nb6e5FMr1+evWD5101M3hJz4tMvsLVsCfHQjqkTqiRltof1B21njssBKb/VwFVB8R2Qdu7UQ tyQ7u 5iSu6LBGfR0TXI858fQMMiBgv2F7TI+ajc66d1Jim5VjB/gH+drx5T0nUXIVpiYsXiywTfeMOf7U/4bk yA+3+ OMrOB9wFKXqUkjGyVDJiLWy0d2mwFZom+bLucfGiFNHxvwROrw4M8AS1POABhHqxElhdlEursmu88TJU c4Dzn oBGcEMRGNo2EvwPDyIVfhb3XCPklckp/m/LSwuaED73O icjFoad54oeYfJKc5R4/oJcLbhRenjRgTQHCIFgchHAHyfgI36cOh5jtfjgU+CfjupXAplVd1/XGmruj pYm93 08041FbpXNA9oIqmylN6rfmzT4BEvShpQ5RvxJ6PaqlC4j4NcrVRlxP6YbWnpbv7NOkIKCY0Z80Ol5Ce 80Xhh 1O7zWYipoD4ljt1ewg9i3paOSL7aES42DYWopaxZskAZJieuNMZKZJ5Dj8UGeHUha9sBWCajv0+qMIhq VRsPR xEf03PKdFANwfEQPnUEWFaErX/yw1tZbvbpSJW6Rf18XoLIlmMmp96s1sJVwcxdwaVLqjyyGv5yvXFFp fwUPv tyv/io+OXkKUXvaFyrXGNbHaj/xe11e0MgUkEluF1QVLfrKc+FCRWJMzEIjsNDcfNbCttMom/BF95iaY Un0v+ pSA/9yT3U9h3Meknp81dBPMH692VIeZSfq0KFbuNHWegA6ZZEYpGsV9oHrwrGYPiRtcAYjSpxdLmYooZ UC25s tH67eT+Ice4xSBkkued7wQxjD0QavlHJEVqE+Tk3QfUvFYwIBgO89SGInBea0WRWBbtQjfnGVy9XflZF qJGPU bi76wHAYvaquXq6yUMgs63IQbGDM52SO2l/mrfF1G+RyqhH/qOPkS5c1xOdvN574u2/aIRTsThI4evq9 aJJtL AzjNI0bps+20/t6cUq3qUtxUfN9bqDEmWgebnIRqS801LBc8KhCLAtfkB9RpyB4ooo5wUtNY0BV81XJg w6lpl McHKjmiDy6KOXK8vY/KU7Coc9FWeNKiRBLvaSuDTkHi/45ftvL4+nH8doElIbWyYT3e5oLO8rC6lQQgM m/Bcx Cnq2uljtftQOdKn5e5eG9CXPbRo8ijG93u2yxbOs4JknA54oasvxUgm+W9rpf9gpAdHbr5mBR2STgave lhofJ LmTX1hg8J/aEn1WJh8TGCx/+OhqOAghWyai/7hH9ZNd0vWB36uSXkkanLzDBTBklMkuodIPg2QKj4gxi qvyUL kC2iPpwP6TAtFuLypk7BNqrrqHpP/Et08Bjm6/h/eKa135j2D+1k0BvVt70KhP9AKSP8n53cB66JX5yC GpTPh ng1Vm4cnr1jrpw9DQS2QYihU9bnhuv9R0VEioXV0U/UNGX2Zb9WnuxbQ+gHwl2F7v9MYWIkm11mP3o9H CcvcS O+rf9AHwa1sa8zLtc31krjEW8zVz7YHtZ5MPh+L2pm+WwJLRpdzeRIgKxssNbytc5BOm5cUBJHk5oKgx 4T2qW seqNhTZngxHwAmDF4EPzqq7SKifIg5jcItaptH9JutE+SL4WyLfGXu7bGRu9ir3KP/dKYIdBwDnJkP8x 7xAde mqEOnkKAZ2yxP6/2Um/IeZNu95QM7ttOKH1C9TMnTT18HjRB9xcm4RLLnLrsioiYfNpBgVEgSMAaAGAJ JKLGe cLwauedfU2jY7bv3ceSaWmR5JpH0hutCKxUTFgtvvB8dl7p1orVcNEwUDlinUGlIUsaUAUxWKwFZ0hQP W3CD8 aNFBW8klqCNZnCMU5AqWyAOaPA3orJGaONwLKnTO1gO16Kx0JNEs1ymClU+3EneSaqoD6dOtHcr5+Yjp es1Q0 GLId7w8PCQvRo5kLtaBh7ecSms20094+7LZPL2k3OWwVKimz0gL3sTw0zTvT9xozv2pqVilj589wyYS8 YUW9k 4/AZZOg7YramlqzaE2LSWR6pndB13Dzy54S7LqfqZernxGsrtlvfpLKXSSSsidFVkMwdXzuxVPT3/bbX sypTw hZs88jioP3j2kWmVD4cj+A5rhBH3hVZ49a0a4e/zn5a9hpKfVbhkQiC1kgdOsy0YBYsB0z7krBnCFvch cXWi+ 7wq7JfD0Nwgvu6Ea3Z9+whdZ4DsB3y/8TSk37JVFgFN6e3r6ZrHeZfcWgx7hJDUHpbRWtp6Hp1ELS0XI D43Dw hSrSyEUogLGxjNdQm0uWF96LMbVaAbcWVAeNEyNCfg9ToY0ZICKVYkSIY0Fn9KifRmXAZ+X2iUtuTn87 KKz3G VxtT4N2K+UhYijX76/8u5PG8u+sPkHU3sJ4/jqi0obOlBaul7n60kroo+R/jL5MfpI0x5hIzp7yfRfTl jXbk5 +TPTV/g/Dlro18h5uj0eDl+bOz5+dFw08An5+9KH+F1Xjc8RL8qNm5yE+xzud8cp7Yhe71oQxig+Azp8 pHF1b uJFy5lu7vUrbXQCkUiX7E6xivEoqMQpkSIbziiRmdZbeakDfm6F07mcDq1CUipxFgOWiqnLre2spQlFy 6wb/J /6B/t/9Zv8Y/9Yic6ou81aMeHOfvHXdTOexpl0P/8ec/83OThe4m1ixdFw/f3BPrqzUBsbF0i5iCZKnU LWrgK rzA5YGX0VDsAWM3OJJRLKhA3KxEWb570kjavVNXNcNZw36NIGVg1jHCdWb7urw+ODd3QelmVJlmyBCPc 1bbaw D8DTMIV6QqKADC8Si2HTaPZaWzhD405mIQUQqwJvBXvAfjmKZCev9rJRw1vMGa1iY8PYiq+n4igytUYH 0727a HlO408pv7IPTuNEK90OCgfao27KzUTifuJofMbM6HVzy6NcNt65mq/9DyBkfEodDi1HJX58cbnl50nOh QFmua vzV0c/s57A6xE1LuDpjGRoNZhFMlwHtKoicwzl3B2dAoSPIKCibfdcR0PO5uDwpftkrCT2pXuXjvB5Me 63zbO bZz+XSTI6rZ8hvUZ7NjlK+UC4scx9ki1gW9cShD6gAv4vKKh26Z6lEpft1T0KB9Hx5Tc4UXYLgEnsSpV hTsNe CANUfNWXMNOgad+rZ0oWBtEkFcPxytSQNgu+lDURSebOMHC/EoIzkWWW5IWl3lLaShoyflqNqMDJqn0E qFwo3 ptvPeC5srLaMWmVhg6RRS/VNOWLNqen/M26qWjGrZVh+mm8OTyCBxJf1R7AAy0srHoI3Upst5dLJKlSO Wmw1H UviCW7J6msgU8DgH5Hd8dpGJOmksNiKC9L8yTM4tF1Ix2qa1d55AYrlKP4c7NoN74UlQeNORGLwvA9wF s4MN8 ci7f7JWUh3S1zcvGJu5FDQCnfO9aS6ooSEN8mZJ33jrUV3hK16tES8BnTrMYsJ12I2a9RGxU+cFpWURU Xyn+c LJ5hPvo7Eq/tb5TlOytCJ7lo3jE8lkFLLE5j31trDaCRBRSagHbiEHjaSBe0cQE2elEtuxWw0xmkMgMO uTNNW YRgJCqpFAj3+UHy4wjNi1Jqk0OIZpmx61MvUevW/OH1wwQgDRhfiJV+bINd4f02x2Ji2nQznqptmxmCB C/OhT sujKy+8O+BkLrDgNsmsxoVPpQ47ryv4lpA11gYyi0Dtj1pnzKk+m9XuOUtUKnIuKFqvsri3XjLcMnaEp iaSMc yQK0Zy8bjea0YtLkUtLg6+ope9D42K8OejvFwqQJfsJvPODb4olMnAuG6s3Z7QibdGnyMFBJQTj7W75g ceoKP Y0K69hXG1MNgxNgZFek+/7b/gjRAm+lpB1NMbCISIpQyrdZl+2DJHyAYb99Cpbj8uwQF/EXRQPW9Glck K6Uua LlCGqn6Y2j1XAbmB8sLhDobhyH0koJN384qEQvB2rNL8tPji0HiFhZbW2vSZWsV7lKyY3JO19pv8lx/6 LfkbV mWnp/NhyNse2TLtJIS834ko9dH9oht3eqzF/8Q01wX3PwOJv8Csln/AgHV1Q2JqGwJ0ksiJUC7RPhxWr q0mU+ 1PB7nLq164UX0bS6V2ppfTAmvwZuz5GRIeKtzBEMI2Y+ebwZdQtzA3PO5dwb3A+SAnxG9ywY5ctBBvgN FJ4VO pnupU5j0DQMRPrg8DpYD5dDhjmPClYE/h76dAkPWcDMyHfJ/gYwksdAsvxuugBo1m1j7U+ndK6I5R6RB w3+r+ i1ZMv3w8o07szdKk/dLDMt2E/IicS9sq1rqy1xRd/R6yvh+TqWYCms9rm7Qf7Yhfms0SJrl13/3Jfnn+ 5L8+/ 3JfnX+7L8y/35fmX+/H9x971/v+5Quf4ujPv65CsL9aslOvVmi+qrwB1k+0P4veyB2uWqhRKcJpIyjUI 0nCpx tXm17avnBohllfc2zGMhhTXg3XkFAfeKKYPiEW2ZwrvqFASMqg8Cf/2hjnhBYixBiJTDFhf823t7/P3f Ly2R9 MPu3IomZI28b4q/PXPoq3cfyib723D0Dca/2T7n0U9k9wd0r+YvkO+2gqIajIIbl0a/RL2Xza/qemGsW m+yfT ZsTe9BO76yrw1AwlN4xjgKissm1g+mavur5bh+GP+mnnrZn4K5b+abhimqey+Jbmux6fy/NvfZ/obxL/ 9E02D fztk+luU0+4vhlv45Yh0sL708s8gwdIP6z+Zfp35/9hh2co6/Q4cySkedsBS1pfYjaOaqKY5OKjuDj3c 0tMMN W09lV7VcpwT/+0K/fcuib8gzYLvfg+nwn+imnl8cJ8+eisVg154immBD1QFP30IxN6zqKTsi8Nk6Ksq7 bSxSk IJb2C0rmemWIsSPk6BIBNtBXTAjoGL7x7Z+qoyBwmsaX1Iuou6lwNAkdH4n3Pu0+lD+fH8Q4XQCV7Edf 7hgnZ TiwwAKrdb6X5+2N3pD8nQT6NgZshemOKhNWdTZxTs6rIM6o5dygo16OLBC4KgDqIO5xlDId2ywCCphtZ e4oR2 XGCyXTlvD9FPZvqfuTyX9lVrKi4GoMx5dwELw7bT9Oz55DRoJzcktNCggiEzjtrwyD5ucKQHo7U7hCIM 3k+xQ /cXEStQRCi6poq+QHQf0HL++suVCsthy28WmUkZ1mOKGzXIgaiXvO7hQDVoO57hv8j7yiUju/EhAuS1A U5JjY dbmI5pxSFwPOJSYDperg8GhGRweGD4m43z+KwSXbyqzBM+E7dBBC0Vz4dddhtzwMTp0Pawq4sRiuY8en EKjuO QM1liLujlDuqhwYn0irhP/MOpRV6njfteQOVxFNloO9plLh2D6bFAdjB1+hxcGZ+X2WF6iFr6kODhIxD 6I7m0 BfppOJf03XXQ9Il25BBLxjjM0XFSVCt1IdovIrfcXOvOtnN8zHBuXw0dl8Np6UaQb0C18LygMJgA/Director Speech HXq1d wGP53Pm7V/BqAs4mTg+19a9Gz6pQQCg/kPghrg4DWFrWEK3l5lvrpKjbkyX3picZlaSLnlmu8zaXyMjc X5VUS maJm+d9i14q2gm52RoCHRot7Q0Y6T5A3G0oFP9iVEHCcHBz7/j3ORbK+/rGU+NqVKHOX1jdhCe1iUy0S q4PMf YX8XY1nBY08Pjls/N01ZxHCAtEUosYmDRzRAb1Iq4NmgLf6qTqg1bdxvkNHB7A0/q2e6R9863k15OD5l hXiuq +RG9NV8zteK9RCTFz1OG7xdc6EaD8k/euRbP0Jye2K5J+TQSLNNiJ84qJZqv4ZmAuplt3ALGtYG9IV9l OlZ1F hj9TfgXsOHjioYGOE0EowgVh5e/c8vYOEnsM+Iu58ld9W32zp6e83x5U1WJb7+hlGtT+7kbE5Iv5y5sx PZWBS ASn7zhBe2dyjAnuHk6aQwSwv+yeliorDeqJ8wr4IE8dqzy+1V+ned5gijG5ttgOL1ityMs4jKFRGZ1GX ZSaCt lAHE5gN8Z+wXyZVfhinVNwa9y6UX7ISm6tMd5iFctNpObCh+feX82jdEjCnQpBT+fM4/5bUCfykKNjKx 44PEr 5IztqBjQj1I5ETrBYqH1MV4uk/TflnpnFwwrbkqWg9fSx9peF6gGH3/KUolzY6VBHrCFjRK96ZDegvl1 NRlNi iuLpnENlwnwLycc7YR/2kpC43tzAzOn1OmgjATb6fvbKtqzffZDj7Yp4aC3c7196Iwy21phqPV+h7rgO +I7Tu mw8TrA+cGgODdIyZxUZifI4YXisxFI84EaoxfbUma+vJ2s79sqU8k3cj7oUgqgh4QqD6QL+i2G93lf0r SCfVF BiZvRtl9ydr7lARA/V5+2oLvH+sh/zi9madG56fOiqxqf9as69/RfrnviUpF0QOxwjm/vyNC6X66wg7J Vi8Ue cOZjbnOiFO3O+yPeHF429ShC7XNMimmHyG1k3aJ1Mve5oJliW0XLoE8YiXbqGOltktuXwfJtsqk3S7Aa EgZ7o A/xf7/MlaNR2Gxq0khO1Uoog6ymqkQ+zTEbW86ezCQ0XuJv8edmq8egQRlWE0xSInUbtuNmnnA1QX7S+ 7w6lY 8xiDPlk8Wb6QNpkvGZluyj+wfNmhIxOOe5PtSFyi1Cm1Tl7Jwabxxbn/HDFOAPZLLthG3JHzBrCJ7UG/ OjsCl aQSBs/1ebhrDTcWpiQw8xVwy5kapNtAwALexWZG+7nLhXGBHa2nKtOH2cXJJF/z20fXi08fBUltEVq4Y 1Qjdy n2D3/Nsijc6ZJ1tOOF7qXgaqxTEN8CRirw52kxBXqISMbDxdEeZQuG4paBFPrUd8rMtX4gfQTG22QDfJ RyKVU cxuqwG19HaN3IgEhe2fqrJl0/Oe3urH7gyVdi6bL6xlkXHoV+RhZV/Cvvm50S5mHecz16sICewJ09aT3 97WZz nczkjS00UExiMcyJLTL8+w8XxBYbQleGcqGnddEatxlsJVKV9JsXXLpC+GE7OEMzVakNWhdfMEKQzRNN ZtkUX ABbPKEUS9ogkIrmW6uXmqlIdxFwxHkifApHiV/NrLelaNF7pMyvVV+UhyYkYWTHrnRBTuxEnkLdzMFFR AkDVJ Poypu9L47589bgXzjGwlIhl5hxys+xkEEmZcw7NGSjLBikp1Bqt0egBRjFEFiIqIZw1McIQjSLZc8yGZ Js8J5 vDGHB5eusVycSqnCXushORfKZDJ98DMg314BOKQy5xF4Huv9ZpkGpOXIqMT+Mz9qQ+fmxsblOtZFATRk lzWUJ yw3tMyQDyGNa+JeMnNinfjjg3Hw7m/pN2Uk0koONB8Y2ddhP4yw9WM4cPnZHayRfH5+17Vdn/THH3i+J hgfhw oKzQKMcQGZrWlPf8khrVeeEm9EtOwxHwRnRLCResnnJOpysjeBtwC6wHVmhILEPXOsZqUrujFkgyRhLC xeMTk uojmSRHKKwhBop6SqCsQvxuUGxo4FmcRpBsVgvVgrUvKrI+87RFDCfAw3zBzu6k96Es5F+Pa5uXs8/Pj wEedK uvpF4QXMpw9uCgVZ0bAom+og3yZzJzRrB62YlW0wmEvDNfVKysv5EIbpxLCdvkBwBgkTbnXl9YwieqEZ DuxnE qo62AQxzQADaoiIRTSBZowI8+lm+UFVtYxit/ngbHqbxY6phMMCnkrEHwvBevkzeR6nGS5pI9mWNXEF6 3rVAJ IkDavwIv9kUbFfyq5ZtWp25gIQF53m8LLsCdwVWnj3OScw3aAr6javT+p8eC34E6WQmYpeedjZYGGprj NTsVB r6SpFzzArP5If2Viz44fjF+jfKqzaPhUo50OlomU7FIPD9cOPvNHeHPUXc4iP31D3hLdz8tRpxB3/d7k 1BSd3 fDEFcvS1pKkzn8rnB/6LVuMjuzRcGzB/D3ODbkIqz5g7xO1tOQuJYzCAlCCfVrxzc6CqR1qih1+tYejU 7u335 2I7rC/B7Wu11Bjog1+pUwhqHa/8Dj6xR6ynEEtmxQQCukn684zvE1egv6H/sNbmdTOkivTLmVgKrPQ7a NC9KQ 5smvCzrjwXnAlX3Fm8BXZdPQTknQwVXQ2LNbPDNg7JXFOJ/asVh+0nhWyEY6y1L/vZ/rIe75R6O46z8h VGYsX FwM620Ja/pJjxt+c4heIwRs/vr1Hpd6a/fzW72/04qNb6NcxFz9Xbq/vs7QX+f/F80MuooB6h+c5N89z bp7nf B3a86kTrzKA72v6WSji9+i0hu6yuQpnQgcXlrqk+o9piuTgMtk8D135aq3k7Spz+kd736Td0k23+M/0i 4jios +CZDYg5gqiFPI0lma27/mtVHritK68jT0pk92U/5kdR0kz/7VklS+NSy26T1b8rJONthZr6xrCjKxh7L P+Lae ub4RgxTMq2Oya1hiCpvFVwCS38+GE5Cm68ojC69Aq2Gt67FRUioj/mVt80wgXyIZ44lz/epUcnWuxUKc HhMgL b4G/jq/rKKB9W6DL21Xp9ZueDwUhl17HG1LRgaps271C2OPosKjAGvUejJ6WOI2lb7CbLZOoFFaowdVs YmoNC e9NUIEkKUVyOzeRPwz1Fc6LpWr5NSXeS9ShYRYpLKCel8JjDn4PCL3fdRhlVdv7RstUS7jmexm9iNIsR DQyOT MARn4OBtH2igYkiD7ZuJejvEm1YAHCQWlhov3mX5vezzb2m48rrbGHSUDYqS4JyqRVPQGAjRXxVVX72Z CIgIA EMVDUtSDFGWr7DUSGWBHiOqgGWWfj6p/T6IZPJ1/v+4uT01er87/vmZlTA94WnBaUNwPPjUMUaOKz4PR Dx+49 OmmYaMEXSV0PvzkMFobfux2GPGOIVxJzHOCkevb/AydMAQZsc7pRIpViiAfSEHng0XMRqcxjJtBYAcl4 oWlYn qyTZAv56SIWkQ+QU/frpM1l8zYTz4OSqGg/zRT94Vnoi45E3fqMlE3FmVIPi20aLrwnO0YMAW20Cdjmc 0yaYH yYDKR58mYDpSISCFOsrP5ObzEXRT3Kurj7oGSmG6kU/HZ3mxKCi2mDwCtm1HEkAcPGOXM9UVqk9nsoDk 8bGDP QL/OMyOGGEM02zm0k1TGpXS5w5s0O/J8Wrw5dcP/RIskFH4ifBvXXuiVdA/5pZgf4a2Ekoa7dSPyWS0G ECkZI nlnnuDo4Re3ivlnIxCwLhbF/G4s9IjwIvivRsB6ZmC2kYGSRJXqAD+E08ikQd7WFByWyuQRrIJ6wDeQ4 GIbC0 7XsGzTY8PET0SJ1xNfJcsP53IQjHGPLFRTz2ZqML0jgLYZWqAzcXgsLv7xNqH6xbIGjT6IScurwNos2Z GZCTz gG++Y0mpXRSsUMdKaD4ptrEhOUGtWOy64YF9KFxWZIEvjHecVpg18WTVb9V5HgQ1+oqAlstNrQtyZUkq 64ihm lhSoammvBNocAmeAuA878EP72CD4F4IWa3UuM6GS3KNSKC5TcU7PyAkum97oAYjWl0TOtniqUzDt5wdo Anahi/B /Y8yJqPY47uWyX0IeJtcnnFLP/dFQzLpE72tALtdQ1K2qD8bSBdInqSUcWvnW2UhRFVflJE1M+cRe71w zsOIm Y/qEx65BvYdPQ6GtrwXo9ovm7wHVjMIXrx7wSElCvmO9VyDAj1c8BORwJVJRpbbljSDsZAXE0kFPiPEz XDEWh 70O0PHKM2wakK9XnCPqzYJLrmrY0BGZJVL2+GjFJacI5rSY6SBxjPIKgdFsYkLRyNFHsR2dpfv0Xr9Q6 mJtay 1+vxb/p6yZha5t5QiXi7Y57Qgk7A1ddjcf21M4W5l2egw0jOoZKNt6cZwp8JYMFOeND4tPFBxztWASjb NrINR SLujoDni+ut6iTs11FqCPy12piTmZY8+a3Hqw+b0MceFjmIlhE7yH+s3JfR5XaXOjEJT7wMHE46ulnNx vR7b6 VPPladzQ5oNWm9u7zfX+zvEe8/XxdnuYvVUZ5n7MI+qdJx4Tq4hFnQfC7zKIDnHIFMp3BJScQj5xRoN9 oSH1q JQQZZ90A5mNSw5OScDc4m/wxotkXoNGqNAQBHUBhgXGwwPi3TSdlyQJ/GhesjPtIFqHUZm5P0rpVyrOF jFMBl edHPDeDewyJPkbMhVbtbAAxh6hd1WxqFweCcZz8FIkgcmKcIxQEknUIaDca6PQLVBhlN2G+M+I2LdpNO ogKNv x0odLgDud7KYn5zWDesF0bYw76a2nVzZVsBPlV51vHDEg5e/PEJvCRQXJ9OD3RIhTcoStE0VADFUsJCR Ju3wd GrD6ZvS++XOPp29rZ/u7Wzuc4TnlWzbaXzjE1sZYYuB50R1TBzBsphteU/Qf3w4F9cvBVbnSEiB8zJOf Yz7xp 5zxcyObIqHz0zHvW/WemgRMWCSCVi0Ne0IoaLVjobdweZlKo5qaEIHmXxaCLNlc8pw1UMnMIsGRLnLkl /gBm1 PPiC/OJWXSFLj4F9+W205HoiZUjYsqY7adqYQfc3lGEcL0eRpBBQsBLqMY23UXQnH64e17LXMqQ4GUCQ +DM8g /IytNiEvYMCVMDntK3+CzBXz05a2vIHFNoEGjK0I9cb/Oth99d9OV6yuGfFYhoRiSrhNwQdI1Jv1F49n KiwwX 7M/6hdUH8nS8zKxkj6s1ON9QaBxnVN04iLccxhE9+WhXjXmaP60tzX4Nat9jNp8RF4kn8UojypNOxI8C qmavf +Qu1NE3bnjy6qpYK7asod3MRaIB0ZBKIEXsvmAEXfRXbGfU2H3YWPOFjBO/xHWUt7MqAyc00cHnJn8r3 bYSG6 SO+EF9emjvdWtUn8RCd8SQRpYfnnPQ6eCIT+YV4ovCGUljJCELSljeHr0E5xVEOSPU1gHlhKtS0CSAxC FmuBH aRsdFH5T3Pg/5pP+XB5DwQZxC7ecHtxHS6iHIN5oYKiS8yVDFewXd8W/9fynwwXlK7Qa1ndqOwsSToXl OYFy8 Y8o6KITmXdTBbzFSgzMxOxqs2ssR5kBIPHWr0yInCgd6wHEzBE78++FFtgaoU5//q9wv+57K3KfgOGKB bXa4X +FhzXH/MHZmXl7nZdG5liIInAWvhX5AXfGGY2EaPykfjYiADMvS1KkXFexUXtExrwKr0zpdC0TdE6fDT mOoa0 yDsoehZgzyjya8hC/Ic5RuxrdDTjn6LdPCfgb5R/Sw0x3Gbw8Zro093VM4jGxOADCziFs2nV/pLXS9L+ kddLh B4BmfuYa4xu0ohDAy/K1HA3eqni02/zj8DegLhJDq71lG1dT8uyHkZYIqtLTywrUbuH3nCsYb3j0SYLI 0pwg4 4wOQvMDMriiZuAuzKaBP2VL6qjXm6IlrfhdG1RnQux2H+T7elLi4gEnZfI5SGW/iKLaIs+caziz6oSxb LeuaH 5nVYiTGfXnEPOZf24lW3AGMynMzEjzWadV/neaawDBkgK5NQWeGFOkqo4IoBdK++6OLktQzGogOdpQ2M VM5LI mhXSi0paPgLQpcDIQj3nvSN8nt5UvwnWgMm4pE0R+bRCerW9eCYKaJjgP2pkk6fhR9BhcTRav4BI7Skx BszYf lj0+CKSirSUIeTZM4Xe0sdE8gMv02B822urSZRmIMsV/qSzFnm1epAsEbnBf1+c6qRp+OCzAMBPDLtiK bXuiP ofJz6IREDckImClNBk5rCihSBNSOqcbPvT5RmsSMC9WvXkJ33CKWaEZYW9mR3qfCYgKrYKga0NwZkE7k ML2I+ zCWafjrGwHh+JlhWaO4OryLMsxf3vA5rCTjqpFXZTmRER6yX3U7tdqmIJwvvEQ6Xm6ghh3MikItjkRdq KciXr oBWNFsom6mwgEQevSGLJZ5VG79tO9YLQ+BPUqqVzp3kc4jQbh4d4X9plYzY9iH6PF0g1kbt5Z3A0RU5A nK8h5 eJ50D72jhs6y39j+FPd+A/zgiwzWQStBTyy9ncrYpeWe7p+w1cFb1xsiLxAZIHwMj78gkIuaxEKOiQP0 Eh8gF csuCqbv5GHweV4ye1EcFuadoyLhgLZZRSQSY6xVI5Pux5Eg9ucTiKAw3TPHff90oOGfs4pgV/yxNX9r3 cTiew by+Do8s6zg4cBOQG8XmJNcP6n8UHmhAo9GSrPiun7ERHHvZPVL+xUtItmfVrjvE2W1dosAZi3TQbZm6e CYyrl KbKTqnlESNDCn8vPCHOv95Db3g5wum5Vw2kOjSFwmrXMqxS7lSaGtGHXNTLtRbGJGPzmLfBfPZ5GyE9e weU4i Adb8HAh0CxHfRAdMGuJAPqO66fEoBVGykZN8M4ZLPeZkQ4L87pfUrw0UXdJwwBvDnmqugtxZoibha7cX tMvfQ Zm9vYVeEQxqkRdTd3E3t9tLv+L2uanUxQPqmSF+gfemlAm5Fcdhu8RgQ/8k5S8bsp1sV+94zS3Dw5OJW GHSpx ftgvXxELLPSIk2vqv84qAxF/kPDLaEP5sux5m6WQytRF5+m7bvbCvpVSv6ODejELQNwelyvqJR4U+OZS twr4M yLrm56rKpUHwt4A+XPQRvoRxwAas9YGC0FttowuqgxWpbgtL9fEVfottB7L88I/GYpVGEFIEeDV8L7j9 YZmEI 83op4yhpoH9cnGpLd+2t+uUT/9se/9te/pj07plB32caquKejRa5OQj0c0moR3zm1l7NOMIZfv37mljp DbDOV 1OHgdMYWDoEA+cPHy8Zs2e92fK7SnoBSzrjQHEh8kRiDL1e5qWfFuyAOR/6BZFHXoqQpKVAVilE5x8ZK BK2Hb dF1gBPKLIVIfFxthSdGQbL/F1pVtI0CCWtJTcpRRpniSDULUu9spIUzq4TizIro3u1XUJLQ9vLLBkumq FuYa8 PmFuJp6ReYbQbfdovCj5zSrmEbHzjlddRgBR+ivIVfjiVOYBw4DSqGS8Do+bvI0CNKveBquIzq6X4wiO BQ1ke rvG2AWz6AAYU4gqHaH6C+f3MXgXeUb1tF9h1Erair6JQvKNjZcwU0Is5v+bNFEDg3v8JksMvAXEp+1q/ tvbJA AXlViRq/Tn4xWHWYhrsUFKeE3GfOyO94BAhQfXpfUMOrWalEwNt6jQXH8eNyH5rVGx4mozLGedgnRDeZ APRg8 iDS+nTnlS5XJpBZd8Pbj4i5yCn86Nq6ItC/e9/usmqKvRB0yi//GG//B+Wda0l/sI7Cia1PaQBywDTmO /ykdp gMTnlRXsW3N54nvSBGeueTQvF5I/uqvvSgwQExBRk0K3YdyguKNT3NYvZ5m9VkkvXrD0nqG+94AbkUQw cWgpd oItGzSChGjvMtFDx9I/gAsnVBKoVPW2GM5N11aF/9NbvkHFqaERaMsoiPyCFnVXtBxdSXxqeKdOLhagV HpIyO LPa9E2zGmwQATk5ejXR/QhnBwoTef1QJyJOjwbwptkaUkuXMu1vA7y1wb8jHoRruVnlpLjcBn8d0j7zk fHqBG w/Be1XFJNURicDhJ7lZLcp0WAgRciVRaSrp6A9mdEAOCzm4kaHNfgw5ACVEyXUDfbN1RbB7MyLP0EgMX QxkUi +xDATw/cxeOIM9hB5VBnh98UkQ6dyLhr0Hyv7Y2IBYuWIwh6m7QUuZUmgTPedC9J5zXrwN1Pjp3zfZDk G6/Lv h+r1qldAclodHuczpNMTawz5bSxxbQPjbYM8N5qnsXqDkDOl7NxFZGunsGVBXVSqFawCO0wc3zruB/cw D/zL3 QCuZk5P1Mnx1H1zHu2s4u9ayOO0EWRUs8OoLA8sO35hbQhKTdbMhmfFpo5WBEAZf5+d2xbsCQSaQZBlE 7ASJd yQuLU5vRm+xlZrnMs1dVytFPy7yqHuBTo/gQ2yNB1m/EVWqmEJ+JktUsmQFSWcM2EeiJgyVSAcRUtJrJ PyxQ9 TOAGg3SZ/buf+cSt3v8/Merc0Z3ut6EG9cSr+SybLwP495guskr8+YYGuR2IiMOX0WX2G8dntPpW8L9H tqh/L bnf/8WCpjHv/PhPfvz3NK8LPHOj2Ruw0FuqhjI7U5VJBSbU/mpwxgk3j49ew15jKQbvS8fmXpcvnUs5z oTXBn AXLxsFq+AN9esuwbFm5ywP/P7gYv4iOO3IoJh0c0d/oaKFvHYMG94C8kYNcgOUF9NP+ZCa8Epz2l/sl/ I01Lf ZJl8Cj8xz3PJFi4lze9TOFIn63C2zFmowE95bROQfUDNz7KO5EwNj6OuWgL+M83CKmu3oVxRRGzdICDp H1qnV ZUQwr9e16yB2Vtlvub48f9UnjVy/Emn/JRKzm466jxtjsfQG8XkEs4oPONbu0sja6L+4Epf85qdSaOMe mEepK fRDu+02t/aQyi6nOknN9H8ZfXM3iCoVuVipEPaSP3rbpop7xnF62rFslJ5iq5B1u5za+5xW+y3Jy5YXM CguEY fY08JJpZ0lvrqhvtUIxTu+LmGffdXUXqqNKAfhL8YXKTv0N/YTxqH4h4sx9Ghxq2664as5gR697bwcmS 1kvWn +y3rZW2/ggzuWdy5lZFtmii6X2o2HdAjID2m87Ppe7bQzn/aXjj7PlAG+ve2W9yC+bh8Ggkc+IolFilF +UOSo cVbXUEsCJ3Y0wQtXuyptTIenQLrQXJqTLxlTHEeTOu5H4N5kMcViR7g7c87tyYalR86xf057eqdUiwnY o85Tz jGC875xFM10Wz7fAglCjYeB6iQMQ8JUSTGBlS/rLdkwT7xz1t+35tbb6p/nvxZwo5l7546dxeVOXmfdc Vraq7 CvRUznggvHa9OxCumkpR2L+Elx9ojeri2K4A9dcF9D+CowV7p0jcBmosjQCu7cxkjyiseRJqE5jlyBRz nRiQy 7PgioyzS74nb7UTHFgbMmeYOA5Pa0N5xf8T3/nckoKuOmplKWMYWdfFT8DA7IbkBX2uEhpz/R2sCcbxe dHnIq cfbRUlfaaww2dA6p0k8pdjim4O3RDCV1n97JynN9e/uV5r49nM7kSPDa5aVK4Pjaje8Plh8C12bitsd+ L+F5R t84I7quQWMaP13CoG5K45/3X853k7U3MynN6xc7+TyO+P7R9G5Ejz3cpQEF0RXSq/QJEfQzc7o3msFtx 8e252 /Pc66wkYekhhqvOFez8tntbGOG5HeV5jtIWlx+Ndfh+B/W0yoDamC/MGnz/WL5lOil0ahjQ7fa1UYI/m 9E//4 ka7/KixkSJ9k0C3vJKqB/TmiKoX5WoZOsQAz96hSYnykpruJ/7w5rV7KLkQLaYP3l20+eqi6OdMn8wvD PmzRk 3p9+jmjSAoec6C95dmUEPn+O+Yn/AIJjoYT8F3ChYpb+fvHro+1YX63zjXa8342oZR7TmsZp59acSh14 Xl938 9wrCX8pcd898glA9cT4eQ16gEL8vp0gibnMc5ccPsXc2ycXg3SoXc3eioekx3PCIbsvNUUrRMrAcFnl/ vPj9x W8vXr/9Bha23n4Suh++ssPZ9p86yB9f7aq8R2eszDvChWKqwk7l0WLg82jQmnGrcikBfcAny7D9VHqnQ 1mZlC d2fXxIR4cZp0RtwHk/Eq+Tk7H7cMwQq+TJ7BnOHL0BX8F4FeXNmSuLKiuw/S4z5InRqrIA2Py4OGJBU+ lCRiN WY/luGK/bh5H5hMGqlM3fAnZJ9X1O2ch5rALdqlcRhyU7JAwZC9AxBgB5xPyMsGLz/8C8Nr38C0uE9uV awo26 0q/+Wz+3Excu1223o6Q/b8YLuk/r8uf/fm8akWl5DjhSD8IhEBycZ7wFH5vbC/0jQZtIM1uC88BCuDaH MBfm8 nVU629R+agbFsNzqG+7hn2tovZPf3j3L/EygoTGqQGppPeyr43N5qNj7gTo8AZsXb74LnzEgWecrgDO6 DRqnr qtQOmA9rBreHw+cdcGEu5ilzIfXRr+TD81Be0/o1WovtwbjpKONVEHNlbBjvPf6X8JyR3uh/bweLSdJq D+mgz sodvglsvnsIG5E8GlO4+ST7rsoK03LqLbNblVg6H5XeyvhT8sZIcU3xcLQuIE+o8i+pQwtGUkoL0912r 0s54n RhZtLhWQK6T6+Ve2PzbDnXB5kEpnSZoAz8TZ1P186MRcq6Pwk12N8tBf3TXQj6RaIepAKoZyoTtBHnEM 0Sb2I 7r1eG3vGm3IXfSY1DcGOXTCz8Nm/Dn5zBjK3ijenFDFwOKKnVK307b3HpJBKVcNB+IS6vn7adcVL/A1s aIXay eBzwhmeZHSf5M1Lj1c11OfodWO7CGcL+yXie8GsQSQPrTdG69w9P1mm+ouS4P7sFJdGn6TQ3aXt3pMcd Iz4jr kUHJ7qUP53LzdLfyutzzi0hdmyhDQ3CRxe5cS3L2+YG7Ja3avo3uR1snRzlQ4E2tZ3WwObTVhupjK6G8 eEA+K j8Oq9LM/ih+NXHsEufeY+Vy4HKnzgfo+ngf3Jpa5XmPa5V3eNrA6+F33Dvazkda+P62NTxC/TF4Ry7pi 83/zd /jGcjku1z2HkFWHEN0bHFZHHMxHRS89RueM/NH8QJaaPuN/QDlxBaXFlygzvhavidfFG+C88fuxs+JN8 XvxB/ GW+KP4k/iz+Iv4q/gbehmfkE/R0/icXNROkQKlIClYCpEsUqgUJoVLEVKkZJPsUpTkkKIlp+SSYrRTtd O003X bmfm5ZL7yRcJlK8goo79c9DI8gmOy3S778jDm7M04QpJ38A71rir6fI64O28/pDHwPpaEnOQjDGrB0ZJ iOLQz vMSadyT0uTH1DHjbKDrQnOZFIusPcIniYc8JDqdqolpxLgYg4KzwdcIiyG7fyevDVcoS5kDk5mXyb3HZ el56Q SeY8rpwn8OZQ8u1cC1kAMwVW+Rloc3pZI3Fj2Pb3n4zAZozBUPKJxFACr4ejoH7AHga+0Q3kcziha37m nYByr wH5cUhTm9L3HWpRs9xs4hkd5+SOncSsQCPaRZQQu3ODJrhl8Bn9KZtaMYRtn03FWliySOsbR0A8gHbgc 6RTkv pLxfoh8M39reTBraL3SW+es7a6ImaIz5n3Qce86k81qA7WsgZchk0KE5x0ICjktjsLS+aukSmMifzsiC LsiTL szuUvgoVButsXOmvvBtSzOjum7eY4uOkqqtsBs0TQeQbDwWLG+Em8xx9SO+S39CL+R19sj/Rs/mbuMld UkmqS XL1yM78vKQi4SpAWWnMgukKY3KoufmngobWBB5afYrmzodvE0qTB1J71fIcOGJvvAvYZWlWW2rqgcT7l gTtoy xKmPDnOkSSo3sDogsBpjVeSD70oRsjny9GOVAikh8amu3iia9ucu1orTvNDCvRg2wTjJPk8xFydWmaIy tEzpC p9Dy4Ix5CV6HAtHFN0ci7XKjEneJk3Zv6cn0Bt+OrwkoukDEmWwMQeUDfY5iN11db3DUok4xK/IjcUe4 kd5a7 uE4bvgY7lJnaG+3r59oo9Ij9t8tJ6z6LkKjHMtLckrL3WV9Jn6OdEu5eP8TLznUrzeJfqVPfLKxBCoNI HiM/L hgFk/yEPFYwC/5XnKKea8RtjUaIT3RnJWwwKS+AG7eV0KhhRTy3UBAgPr6UVxQWKOnDJrDZeVvhY2cp7 aeESM Vq6NK1JBwkJ8+N01vH7YExHqkKGunurDfjQy6jc4HGikqb3fYB0gq2iibShC5+Qq7wn0L0xz/Fz4RhqZ FvRlv yefkF+HS5w1yR9g5/BRI+Ky6tft2gz2FG13SE6rE/Ie+USuVQuk/zmvH4TWh7Kloqeg+4R+bBcoR+kH6w fon9U P1T/mHwELadjaEEdRzvqNfl1+cM1Jb0MvaX+F29gxhj+rR+kL42obL+fXOsuYFbcssMEVvc73e/Tb9Jv VnKV1 wvcck0RDdspeBEqNJthqNidCYVAiofiNOUYvzyjWJxX54UGaOlm2+B44ZJkY/GR0nocqqjk+BM6szxz/ Jn8uX xR11G+BE6dY3jecEacI+Wv5K/la/J1+Mo8wmgoBWrE2lH4ND2BL6VN7Wk7qt3EnqTD1SX5QhtiazHg3T N0E90 ic6voaGns41pNmQLKa6NtyLYu+iP6o/pj+qf3t7Nj2I95yP4cR9ID3wKZxDzgDXkUjcLfXRVfUMI6gjB rrjv9 LKlwV7BhoEkvVY8Nv0gkzi9dWoDykDd288Nr9ncd6DXuj1y4XDj8gDaHSlKw633b4uTRIqbXtfQvdkUS /sx9w O4KfqL4bW3FUxl+766pZ2U/0F/or/R8rrpxll/TP+ifvMhJnL/YQmwfS9R19DGO1aE80yAp0bRS+hf9m 96llb NOUdRgAsrVgibH0kkYMYMrkYc8sNaGQkQuIcATbUHJA3VdaA3bMf5rqwTJcupOLJ6KGcIy4L3pOB4eXx Thwmj nsJCi5EYnGCyeMCXmYSGSWECM5DUaU1fxSCPXPepkCCuavJSRKkvKSwOKjvnmWoRVdNdpGHiDKvID1Ll XKJwS 1bb098avonoqxLdtQl7L65GpeY+Vi9Hgga2OXwj9fXoVxo806OkHhXOwXOpXcsIRtSNhRVvIW0rGPBns mCSmi N4LeyKBkBt2Bw2cNHZEJ2ejlVbljckCnQw0rMmog/kB6JRnYZpxOTIVvcxKLbru3rP7hi3N5cZdZnzpr Suki+ E8hY2OItAl5M0NTcxKe+ikpH10N6XJmQM5d0RJ9AnvVllb1oc2x4MseNE9t2GLnLh5e6RA0h5BSs/bpt up26M a5Q3MDiUl534iD6a5N/+R/iF5Qp8G/Zf66/pv9N/pb+l/0d/R/6H/H06HA1OZJMR1saBWVox0YeHmAch q7FB2 KyXKfqVcqVCOGvIM+Ya+qnHQBBgabiiKSOg3kePDKNVVfqWRnQc1gz0KiGIfod7Reyt2EEbQFap5NKVw 9hheM cu6hIrUDTUUt2YZdnKYIbL76XSrqZWIsNR0E1lVbRk4JxzolWcfLw9b2fvbK+uBP1WGiJ+F80yNgdQhT +VTwz BdE/2T+eAvU1KNLAXGbAwjE440xZPg2VpTalryPScBxsofkWxeyknyMOoNreeoBf3BUrxkUa2whWgBVJ 18pbP GRm6E1Tn+Jtf42/wd/nf+D/5P/i+hd9Vg1yR1QWwqwMHDUBi4qdEJitJtADiupwLi7UvFjbNeLBeLbgu 1azRr Es1k7gqd2znQzIRs3NmjZQxiLVhMQ+AgnCTXYR/fy5C7HBrDRjUGPBsMvcataAvnrrZbW87C33Xg3f48 X1xAm awYiPG5TK3ZiczD7wXljcrWIQmT4bcq6/QmJrqKZH8PS4JOObu7QDT4Dgg9eCPa1Cs4WktsGjdP3NAKK CIryS qbjskImgSBV77/NY9DB2R/JI4eQ1Y/Cj6NJ6dx1m/ZB8Acl66UoAQjdW46G/Al6uc7s/Fz5JK4P2F+Sj +lvzJ AGagUKIOUwfqF+hG4Zu6r/zk8Whuc+j36V/SE7Bs2t/Xb9S/pd+l7AkyVoYgrwPOq1dKSDCZpWX2Ie2H 3dVad TWfXRekcumidU+nJdzJ13Gf0UEktxerL2LK7Sps+PUc/oB/Sj+hleoVepV/Sr+uT3Tr7Lp/Fn3eVGxJ6 OUdoI bHggWyQb5ENtTFmfH3Ya+P2YDC0uS735hLsWHMQ9e7xMDrSFFaMhRr7I3HbYhZzwBl5f4UdSCqFlfJ/M EAYyM VwsVwcF4/xQEO1nJAAKppHrLAZUmGOpOUuVKeOaHMraVtktvtjXiVdqPNdBefDgGfTpHcVQ1yiFduFoN vI6QR 2OOHFLJLOEjACubzKABk7WLfI5Qhw6Uga9WxjUwhVQ8FS6XpfJ3HigHyvlbHueMFsYd8lbeXdXPAv+UD 4UPgI 8MFAtWVYdKVK9DrFDTKPkmsLLkUrpEyvposC+W58d+WvND1eR7sjrIaYUMbSWQzfgmqGjfnKoexQnZHX SmWVs joJ8qttz7F4wBOjQ61l733iyY/atjBUtJBmOI5XO7lgjg1VThKB5aJeB9XqOH/SEqfJkPnggDjPY0Qjr jjlSW V2IiGEsVxYT7uXig8jvJEJb3t38GJMsoeLSsMefEmB2Fs7dw6EBuKPYffaWpIHcYnxDaoX3TVNpVqKdk MSk5J MEfLWcWPMzKt150oymAbSir31IXw9lu6hfv077t6u7nbxd3id0bp87Jprf19+n779+b4NQQZHAr08aWf jw4aP VXox0RdLdrc28vtmDeDEjofm9gDbC2kHBppj/cIbseLpL2q1bIjcnzBJva6JjQm421oDLtWn8wMw8uhJ m7c8/ 4YLK3qjf7gApkb9chm4cKJ8gDTj7/4DBw+JJ674dcZFg1hIcRTjZ75j9yulj4H22GGw25h/IYpx5EshG 77wCX z2+cVLX1y+Un/HWH/HWH/CuV9E2uSJ9vYG4kXA6kEI6sFV7hWK7zHD8vLZ4eTO1jTE3nPH6xLF0yOR7i HW3zH W3zH+q0zg4NEP82yYi891J4YTTyO7WqdZUev9YArRNitcz8wZpelx3D0er67aFUSuYmoHUR5RAPU9a1x +BkWv 41dzANC6cdSHgET9XlXScCzGzAmaixuX1v3XmLLI8dodNOSqNmwQ40BXQdFxymqhwnDjVn+19Phaeupa EqMtE hISF2u0BfmQ4MIXHmgx9zQY22tbHhAdXywFhBi9z4SET5q314QFEFzsxJmqRMqd9Ru0eoQ9OWrsHR3La tO2dL Zvjc2HiRPkEtB2oJNXH1eNupKaYN9L4ZmRHpfoesocRAX4do0oASbxENSyzooTd7H71VrX0yvIiq4XIB ghLYc 9NbxPn6QPc8mqLd0KfKqVoaMCRz6iHXqHCEqLHzzzQdCvcATMhz6hlpcH7mpq1MnamhyIfdz6NMndsUr h915x tAPKvYA881UodmazQ8wklkr8ea1eS6v6+8qvWF8DpcJwR0F3GgvjlJYfPTP74N9W2kp9/LwSMg+ntLGd sF359 diQwytHMbysCfVUTz7dgLRT0SeWj8gc10W9BGlo21X0RaAq5tw77AemJijttdvVciQYO4A061M1Gk/N8 mBNYk Bl6hBAtFrJjvuqG+1DFG3xS3Uwt0dy6Z2Cp2HxqXCSLcYOAoDJV6os1V1SVGU9CGvAyTWpjJGV8ev1LC 9kRIm mZUGxMYOVs/4lgtPosBXfQW+3cVNdlpgQIiALgI8sTPCJQkz8dWg8rocNo8ofDc9ZgEMAphZK5Ao0D6z MmFRO HawGOm4OQIfaV+O3YF9IMiDazgmAkGhoG4HghpCbf03q0OqAz3tFy+dHK3POlTMHfV4aU6YLDXcI302Y gZS8X /19BDNR5Rc14YEO+ecOzyghQf+H6qG++o9oVN059jfc3WCL5RL8F06L8ac00VZ1SthJ/5T9GHrjsqPlW q1Fou cY44s16JlXvUq+bXqIH8xgzCgUkqmoiJ4kPnE0iplpw/1/7FTu/Zq9OkR42CuZPTXtkyS70DUkSbuKV9 zhgnk Y9pYlL0Uw6wC48wwHuptkA2rooczRH3D7gbX8lYAB1FWGzdzXo+PN8R4cdiooqUiC9jP2gDvnTYShoPW LUgdZ 9TATQgH853W96RveJ6fxjdgpnIORZgCSg9Al02LBuw6bItehW7MuUiDUYTjKgov6m5n87ZCUZCYiy4qE 6vuQc aRsuDsgUgEPFmHEXQ4YmpJIYILccgiLaPoh58ob+7qXmE4rs7oMULDbWNBJRp+jZwoaKvDb1mc4rp7GJ lMFBt mZQRyReGkMpkf8VhwUQLGIINuDYFIto6Yb3msHvZVSAeh/XD59B5xoSgS9Lfa+rPFMAfNQJS6oi1H5Cj FgHKC 4G5Ltbg2wUHEJ4nfko7qGmH57Gm4GrxYnXgKN6GP8rI8f55jhNlpkN090BcRtXzEXa6uksAS2RaiPXxL jEfYi vI/Qn1PLE0pUGOMjqK6RIsxr6Oq2Q0ZDqCTmDNOujbFJVqiopGUFUWrhreAyq7mOIvKZtAj/Pye6h80n Qrl94 UGu4ZccVzyr4UB72eVdcOdq5CoghAxUmzqTnlm9fuS0UzCslD3GCEr1iyyU28zM6UkIKLCzniNzix3zw eZYuI 16yl34av63sz80bt5kMxdlQfkdyMIihRqYLd2OeVaWXh9icXhUrnA/aQzXtKVeeBifSpNEFdOx8y2ec5 KG1uM 5BVxPHHqvGm/caxU4DP6OjeVlPW9XyihQ/BNq/um6x73ra3ubTZ3+L7aqsR+TrB9bb3xEba9kicZvnsR CE9PO +M9BNpg9Fd3TzSIAM9C4YEDP8J0RqUeL/TfQaCnlQitM2+Z5M2dsjbztAMHuplQ2NDmiHY6uu8ZvjIIz aoVIY iXLEbYgXFFLBmJciPA+Afv1HLfxMI6t3WB13AIOY3bvgyOx85EWupM15cszyvZaViVfElFgNtr0ubMJY hFXmT rvBj4HUo1GOvvbWlI6Xo8YMKaABNJLUIIqFfQ8LsQ6CjJGNL0VldTmA06ZBFsxmdGlDar+3TkXSReXRV o9ORq 2M5neGXSWVEjx+2eBp49IKVBnzULADxVWSZrQ0NydX2WLdR+YC7gznNiGdXmveXWxmF0OoB8DWXQdOb4 P8KX6 0IZ+MD5rdPwqXZdZfJCT83UJuncR9rwdEtDJxBJjJF1nFWPwVX9FURUtKxKimuJYQ3NeDvbupsFwVrYF RDE4/ hJaGAW2BFO7nbCMtWnByRBiJXbSzsdsHJmPF3H0TOTwCQKfQG+sn0CZDThjyxbpQanXf3dabohnh6yWT ZVRjV 854pdk+NAkR825Q7NgMDrWUEg3X4dZTUYH0WfAtUR1XWbsJgQ5piJhGUI7nnyiVTNuQeasF4RZcfIMAG +Ui8T YMDObBUIzJILgGUAoOI0AcA80lAxzkJECXrGz1iWZzDnErkoOZ+heJUX3fXQYmDU9YribRJQIMWwiYni 5W433 kZHQxzgN35IZvE/lWj/l7X7Ks/9NVp4NfU3Xx85J036Muq+qjSy4DLkSq72pcJnn6KJtp4G0z8QoAiOs So6J5 CNbeRFlbzdBuIxqmAAwS5LaZIrfetM+SFcUE5mHntnf93E5SZ/AoIXt5KLgH/ne+vqSZqzwoDXFPsya4 Ctx+Z Bri+yUmT3CjKBiKxI6QtD2TNxzxvbuGQBDHnHGJ4AIlMlPqhp5lZumWVogIKFhUqYzvOZd9ajxI/n4iQD SyROR ZzKt5I/rR7gvjBeUzZAUU1yIOp+zPD3BrMEgAtZdRZHzhZy3w4wdqEtEdLZbSCqSwDG68zLkndsJoWE5 5u5Wk swtClTk0wHugJNk+qmZDfde9d+DODj0rgagTDKdQXBvAyTHoJXp+FixKW7hVjLduWZiVtrk1epuewrrV /yEqq Qxs550T0/5zpYOHmuPvoaiNnDjFW6HSSsjH+N5Kp9frI6aXicPvHijzH9gx3a5TDsM35V2tNFhKGa7vN 7Bhea jWDEoM3a1nxV9DHnlJBEkdms9W+YhFvx2tQ8nJktFYpOGaz9x8lQEtIG0WBxvWiStyhDqHiJS9zwd6cD Gugl1 tY5eu/qNN5P/Hmmei10oJmyHq4V+TvxqU5jEVctuxbLosvXLAOXcjBBoqfMcyNfzChOS1MPVJjOnSVkm O0kFD s8kBw6DYPI7dwEdc0vn1x88mFimh75lITtCzv+CIYkAZzKUO2fH+4bXsUg4+QpIn8lke6uQb1ShiM/2H wQaxw eLZXG32/BbyXqh6KMpfE3acN6nexhhNQizV2XeRBaTSV+tcTfdRnRYJuADttBZBxrHNVWpuZg+ZFVbBA 9kBOn NR1Zw2HpjfYuQmKYsVHPolMmYotDdhXpA8x8sLgX64GLRrZylnYJidhNg1U542FoT//GsZklqKwp9DT/ Vn/IS AEBif9Gq9YcDnFBiiGmJuugceEpYcfVcL3kqYf58T0yuTpbhrmYozsro8FK6ddvxC534DDY7gx0AHO8q Aw42f DBZIcpkmxzMON40pWJymKidBba/D/xdQdlUI4SqcPfmljVf9htqYhSELYC1fPC0c0bTZfZ6DXAgDkMkk 6EvhU TivfvvmGSxLJe/VKyLLO1qoI12hCprqjhuVLG4DW+8vWGqHF+JcWZAvURwzwQ1soXkNoFoD6+uj6fAR+ /f+NJ Nz89+imAxrDbfp8bIp7sx1JR7Mj/j6XydYg+/9cLQPoP188M8qvTruQvQ+Zj2s50nDruzmv79tC2XarB tE8VA 1k5tLj7L4ALkez9phEynw2V1KsEhWTAoPSfmELagWK5b+mjTEwNlBx2eJjfKT3U0nV2DLxDFVTYaEzWT wGF6F 9+AXlP0X7KCmoNf8YavJnrXUy2ibzUL2N6WpkBGlAAX6LfOPevdlvo+3h/xv5qykb30MASsIQOEcOL7E q9/f/ QQ+e1tDi1qjb/xc9lLEKGjgyf0QHWkLmJmPkaSYLYFSmLArq050Ao0GzADWp6CrNkZywr4NiYRpoz81a ik4Bx /gmL+kZ1un4TD5RD1KXLEKCXNMu51nE1mCyI1S+zsDjgN6D/mbjb85zq436q82oyhWis2s0yV4f2lyNN /CTdx wSTgk1iYC1kXEPTU5TuVQuc825uEcM79NgUPt3GJC0dtz8Po6clIGNY9ohHxk17l2K77NZ1rkoljKGMM hIw7S vEIoV3S/GhoKODBeUU05YaoH7zZmrszF0+WyihxdWHyaEb0Ktrb7d7mhUnm7q85yP9liCI6RxnhEJCKY 7ADO8 wZcg+/aJw3xMtckgZ9tiDkus+YkBGNXGpXaLOeGR9gJC9q9xIq/dfcK9TnpigI3cD86GAY7OMQVJXWIW wZSE/ eGcNd6gmYacl/M4upEkkU+XLWlqoCMovJKeLJRAZd6quki91k1DeFtdxRuJ5wADTQD/Brgc4rEIN0rQs Q+RVf T/xKFcSNupeN7R77yPQkmK02z778k6/PMKaYZ5VacSdlVfvoWLjwHxLihrxzZKJ0tKh07lfgpkoI7qCi F1a9V X6j+zqrgQixlR8G4TxjRY8MjhLPz/+xvWzYjfbyMa/jHfhCz4pj/ZQysCQHTnhHJ2wep3lm67se0y8y4 GIbhZ NNrm9faAmRtcEp0Pf+Am0vL5NO9nQPvfSPQMzuJEqqadIf5bGsudV6ecTE/6hebGdY70ZWsWo9eUtmZ3 /MMd4 m7zlM+kG/Ad+cL+bcETnhUWCtsUH/MtGH6gu1vHTNV+/9qhztDX+Mbg6ToK1pWFHeKwmlwxCz9s2sWH3 hrOFs E+t1cmIfpMK7hM5gxWfUY3pPnWSsEVWGQmQqig9ZMrgkz2cYulO3Zl/xp99dSvJeR4Q8om6Z8lByPd0X B3AZ+ Fd+cfIL+syj4QBV7YjlUP3gy3J4S7/KWHfy9PWciOgadUaqBhEk8Wm+VHBoXPM5tQptqBw2ASpGJQjY7 mtFl4 JM4O8zLsYgzpY+Q8g+j2ZnOX+KC4Lh2ZsrWpvExKtijEQgZa6KQ4NlCuJ+uVB0YWz3VdMNbXJpLIVJ7O qLoWB tK1TdMacJXpVIm7So8FmF6GoO2uW5A4sMdY/2yVmPcOhpjaUfpXmAHKWsLYHmAC6VvFwB1mmGYGNfV6I 1SyrW YIhUDn5x/D92oy6wBXMJaVL0fC1RhZ+Gwv7IhatVHbNSV8w4WlxgXRniAQ5BOQO6miHpuP8QZ5zJxYXl Np63J 7hl1aV3DeungNVjKKdpdy3YxWLVJ5CM/gebqN+bKCB4vIQ1ars6u8iZ770maPxaNvh/BNDTQP5Fxy4AZ 2sLnJ DlXOU01C+9Sq415OYlcl0/iUhL7nqLRKkZh4oPfw2U6oXYvZ7z5FaWWUW0a5pfu8/iJ/SdSREqMzl8VS bAeXk osouV2Leba8NJDRi+QXSGYN3ZGG0fN1CYGPiiL2zDeO+aB7gMLctDu1VwAI9h3HCqHWhBFYLLrS4QgKj ASy8e xcorNf3A/N4WWeHYdKVc3SB+tg6DxPEuwdXPzVBjqAekk0jvnO2wqE/BX0U029t3WV1mghssqfQ5SzI/ hbHEQ htK/KMMc7f10b+8Z837d14L77hfKtZWN+M3aPvSKmidScbPjnwUz/+8DqYST0QokLfUEDqtBpXItXAVz AOwj+ GevqksxZLDjRWEtLAG7Zqu6SF7NRwYKCBVkpIxsgmE2EZlLuGqgXED0TPmSVNMxz+BcEZmThUrOfN4Ez IDzJG BZcjlAg+5XcgBwYLyyqdCKXI4lUMWXF3a3UES4C8NBNAXKY8p/P8D/OrzrANfyMBXLccQTtL7CqVC4vx DQtRt Ad+T/HrjvnukAecUA+Y0B+lIBVCP7Q1Dks4X8M0OZLCxSXZi9I7p1ncJ9Mu7PMHSFHRbHMBGhuRAKJct /Dqvq cR5wrT1dzH2fdY9zsC1rqJ2gpR8haH4uyO4kuY7imY2hqV5dhI0umB4goE1kkZ2xbM2qiW1ofO2mcH0s oR7qo X6ntL7brD5akG6nlR6qyU5m6j4JDHz/CeaHCex/H0DdctokjPP1hrsJ8WdRO05wJRIrs1CLdtBGPqYep J2nh7 d5BO6glffM4ZX2AkJhcTuNefQqQio3FWd57C6Fe1f+hZnII2pe3dF+fwQbfwJnq/Xr3ze52rBKASnhjh FDmqG X8cN8VMDZfeW6RvwdEBA6VMplgCRBKbjW1iotn9CF3jfslWsi/p9oWQP7WiRLixA7JPFW1rMpqrbltAE tQGjY sOL5Q6gbTAAq9DXlNF89IdR0gbBrmHfA2fTM+nhQmZaC6V2EWU3k3EIkSHjNHXRXxZ3s2IWKM26V1tAr V1+am LMzAqtbNREfVD9uq+x46/SixuaK0chzB/P8gCAYMKKfcmtBkkdlf2RD1HjXzmoRxgsyTb+JpKtzfrU1Z Q4hxl +Bv55hbSqSALS1zPcn1/hCi6zX3EgsoBRf1KSA9xFKMfKmPstSXmlibxPKkRYC/o2b+IpEhygF+7IOIm JVUGr VBpnSV39zQv5VW35+Wx7JhQDUbl0KIziBmnTI9W6r027Js2xjyE4UCAlfvh6fU3Frd1w8BPCz+9h2Q+a +umjk HzgxUwCY5dTSCvgP+zBaJtsnfuew6hZWnv9PYvkB3Q71jqP6e8PiFtJ8e0DRPtA/ZKp/dSW3l/8GwqCL JyZOH 2+wZkVBX1rUFdCRVYrxL8qhY+va7qjrBXIWHWLDKsBlU4sCPbEm3c9/xpdAWHB9JTCcZHW0EvGV71rXy P6kkd hkvKi0UyBLGfNqwJ7SCQ4cct5aU87TO9aL1sWWOl9OUNjL4csBC66oEnch4iXZxJA821PwN5iEj3+jx+ 3rokj 1fzFmmhnMMxrgNm4ETpIFbjvy0Je9GsS2rZdYiIikPqwO7/OYB201QRBdXhqJq59g0Fhi4EOH5G5p0vN KJd/R TMkiOpkFR7tSUpelNgEX/7D5q3gj0lkbfhQbwDZymMDgz8R3n7S8Qimo9wN0XakJNcsSoIjP9jcwMrHf 6PCE3 km6I6hthVnzGaTTXuNh6Y4Vz/HRBcqj/mOizwT/Cm8d4pE8aOXctHFiXmTpS9nTOnGoozaWr1UxOpDaY sDpjI 74QRya9cGdYpAyYXMnWmAk7j1kDD9/k7xUg14eANPFvDdZmkIESUakswJoVFPkRPUWPe/Fwl8ppZ4Evx 8sgxT cSyobIbBHAagx0j4+kawwo8ynSNh+o7fT6HNLz+sc+9ZgcbCeoBGIEkk0BF+4CkYQYjaVDnI33h3Ut1H gOlmS aF62aBPQfDj9KZnkgmxsBFsby//M1GhKfL0tiihCYE4Rmh+P068LLguRkgb9TDCYHqEX2Co2kyYeVFVC D0HSJ iZ/bWNGTAx8940btRFJvDLnFGIRCfyI/aPFFOKn8+yOL2k2QWTh/WW+lQQ2Azu79nTyKbaOq61SKEnY0 Ld95E A/e9L2L8mJLK6uvfJEQDQvooRF1AA1Qc0WKie93mi7OP24k3qJwZ9EkuRWNXXHNuxGBCtznmLrEHDp3G RmieQ EMVV/VvdeHXzYNJJfZ7mOi6ynDmgqGc7QA2Obf2w0uZNrAiJMlahkJicgJC8Jwvi0FBK6iaaguDvZKki Cazrr /Sha1TprPN2UnjQFj5+fqycFMVnICDULNoBFsBl0AfIzuCmF1VZsWSbj7NpR4WdxSCB1Y1s3zTvHXMNs MZ4Mj HxKJSZiNnAXoKswSX97xoGHqOOQWfhBAl50YaYK4YZqjUOcCjYX1mW2Vg2Q/E7+6AMhXUUKIh4+wOmaQ 19NOS aOBqCYqnEkiYoXOW6IpW2VxYheV8RjynVc4/a2X1NTydl5C+3rIB0AdXlvyT/zAxrmnuM1k23Y4obWCO YEGyx +PoFz08aksjJ9fRopeonetXguKu0evzZwCyyG18Z3nD/18vVC3q5BcSSo/qZapBQhfD72hgqiUB3/lkU YElmP eO+jBypgIY6bYgNER+RRxBJjnJhOdKPM2RvynTgJBCqAjFcQ6aXRY8QgPQsly1lURZTVHa9dJT6XLL6A DrilE prNH4Qn/Vm51kNVNsryVIAeC5Ns0FZiOdAecTiswSXkHY/BeLAyzx54Kq/u3Mk3Rm/oSi9klx6jN6UTb P6hHu ZZsF9O1OI4rRCk90LgI2PrwVPQychU5fzz8J3HayKvgo5rLL3Gq/9p2S/QZ5jT1JivY5KendVWXGbNvT RnR5V 299n7cJyHFBxeUQkUiKSNSdJk68XfrPFaUDOJrFJBkyo757AFxWnKsAzVfLWQGzbLW1wSo3AaV+tlzaZ ao6l5 MIvIf/xQYdv8Nev3sime75EfmOWussCFw/LSqnAxQplGwDFtqKOChG9Iieh2b1uhwi5hUMNKAibxNY3P imxlD TzPPw5T82SP5p6h6UBdGjah1HCwgfu+TzCZEdx2BFn5it1rAfwAHdCVf6Ss4ZrUuXX40vKqmg7vUZfww f0E47 MhaFS3o/+FqmO5dFkCwSc/9HwKADT7CZ9iEvAxHktOi3BgGH5F9RNH0Zh/46sambISAUvMRBAoeVWu+S C6ZA4 LjGLtzTgOThLJZgHblRDYWxpVYBag84opiKlXbdLNTL/AmNXBm0P9xOSYYqYCdnHckvK3di5b9JMDSLN ZFHdu g7jerMFN1QaN1BQ68cLa7wcCc8anHDVF6FkpQ0ZR5VgFP1m8ybNyS7gSygK/5q2DsL9O8Y+YT+nFpJ0i axATu zLRuuJcjJeZZgolwdQH3jYHb8/HwuDUQHTNHsWEu49p1GYuezMc88qCUtbGgPL9MJofjkwoEEpZF30qz vkx82 Ypg60X4W47XD0/XqOYtUFp+lM0Wc2EV+qPuVrIogR1uIbRuaZ1I+dvp4MZMyeMkoqWNvF9x4Zala4sjf GtcIx lM0ayWnaWof64BXltJnUi/JZiqPpX8AfKMuX0/RWjk2xl2GmxGPUtAFWt8+gYSCAraxnV+PttxqcYMWm IVp2x 4xmgPvbBMLJUXzzfdtJky31L4cEhb91WdX/xgL/Q4HFK5xMQSBgxDAQ2a3d8xwJeBIeRahVy6L1VYZIG 5+enid PeuU1hSSVHQRjdQd1DwoMWH5iO3YJtkkP/mstiwoo36dnMKueeqqgcoIoDhR31+k6o/rjfwV2q7preRZ 58Y3j l29PZZ/UMbqsLnTlfVo9rtQv9tHI3zoAx4o18iwXWUWCpzS08KAgioOZmRfytccLc18c1hQqQwMGWLAy 99Db8 2rT39kwXr8Fe3Q0Lk8W278PpbVn2lqq/w/alNq9sh/F8CLNJ2bqpgPWGkWsp48aqgIt3O2mHRedMoMCC 2WFeC hDs00TfneNJZwjP2ouuFyUGNHaZvzP1hnfJI6TjFm2no8LCjxRVzKS8SLX31DZmpbwfPmr2GnNv4Bpvw CROc1 272Fs5R4Dx62ckFC2Lma/iKRnZTJkRVRmBmgE+JequPq8w3Y/TSl8GGI/yFQA+GHtR5JQSw2dWdbpLkK 0zS+4 9Lh/NkLVvgAAauuKcFdh3rNKk+A0kNVt/CT8voLH6Elx7Hui9uI/1tkl+a6DioLx+fUuOo8J6JbkU3Bx d6/Yz rgaGWPt5ssPaR7GcAXWm3Wm0J/Mw3/VKMZmOI3/hMTdeg8E72nTN5NnWof0OMLekMi6Si+Sibp4JcSCH chrZf BNjhA4+CWt5GI+7MjCP6XMC265DWaOnFhoMofoQnZNyFzqhd3BYexBkn/5HT7KrErA/vXK1dMutCnZ0B A6ok1 FNJ5GtGwkALi3MFdYV7b+NHBMOwiAgr+QTK1XkUPul66Jdzui0AsJocwN8VmctiQljG2YjgLTss3ck+4 zIzkT Hg0JA6XfSTtlzfYyeVFicfvxrtAbvggzpIjOfZ+xue1K8XyhgnPpRmlyrcvdSNA38NBCRF0fjyo7oKb0 szY6u 1Gle/xrDrEbz1q7TZsQvQUiz42RkwVNGHVN9D8WGLQwS2X2apvOIVuH2DIh4auvPobCmIyH/DJDo0PW1 d3DuW xjWnk2uOXiOIkYn7EFNtv2aEEuz5qHGMULGvrMtY8SRtDTTvduJLtLT0Kvso/bYqt50hTQizybSCiBQV 50EcH X7UCd6lMqeZQs7LYErAPhrCnrfibeNp7ztPBA4i+TJXJ/yWleImDvY9kRkNJvEUlDOMocTAwGbWBeAuQ cJDLH LwPcpFFna7+70tsdrShMkvbunXNhBXUzRrifX8V8j41oHp902+vJPHFWI0+N5RsoiC9sX3i9iXEosrrI ThV1U XlYkpI3r9shGsO7qX7ASb+s5Ly/fdGdDBkIHOOqeKaErjZOUyIgouI5q1QLOE2U7iRm1Q2psMtrv68rR JjyGN itf50MuGShg+fgbGDZ8W/Yhh8la3lFLZFuew79wM5JXu1tTZfm3ZvI5WR/kD4pN07Cc/DP8O/n39R/pP 9V/oP y/6iP+D9M84q8f/V/x7NYMix+iy+EQzyCmyonA6rlykalLRl8wldaqMj1D/owcC0ihCQaCUaGTj/AOsg ZFBEc FEC3mQEkQA2yfajFoZIo5GRZADQ0jcpUAMhBL2WW5MbtKyd+J5NhQiygiHouGukCQmnTRjrVdWO8er4l Pi+fh s2Ue3nBqNZXm3/HSIZwc1TSDOI3c2cC0h7ULm1lFEuu8lrjocMu9WauqpH+Qbl1SkqbbYXdpbc/Qz+Zn 9OFGv 4TNnBlGePyGudsvxhd6E1HDqxlmNccOn9S3pikqvh6szjDAsqGcxTkqUzDVFczUHeo+UBHtq8nzTscVy Hje5R bqdbrIZDtLCShgMHJvJWJMaYvtF0Y07MG0/5yXBfgis6WB9WnzKE4rbaoLJMOKv8ixx0khHm0+M3bxl6 KA+md R//RFMoo45q/9fBS0gJfxc15DnA6l2JByLRdxC/YODG/jsyqZ8oaHgcw+18stZ3MvKTAtEdSr5thj22i kocvR UnT2UvoJZVDAdNSSGqN/JFwnLBwP2JWe7+Ws4nCBzw6BGIKQB/mCNJeiH+9ffoe7BjunfQQmeb5NlT3M Z0EP0 Yne2sScHhDhf+eQHabzEN6Y45HVofLogpNdI7DXAWHBzV9kZqmd6/+8qkfJGa3fCEvzl1GP+RO5ZNgQi Czytz W2WvEWn7Uh5C2qCEZtOg0gJFqRh6HOWMVOcdQKMb/Fpbx1pjF5xtTr2tGdeW+hxbYW+lr1Yy6xgQ1Zzy 9MGAY ht4WRLUmMJqB+XzMmTEpqxrDgc539JWOmaaeyqI8ParN+I32gjVQuLseppjbcQHdgq8pZFkDd/ITlLVB zl5DO 8iCPMmB9t3elQhBrttoV4lMla9zmXbKwVOwNzVVtECbndERX8+2PMRNENlVAZnaqkmZLYIMxqCuTlSLP NA+EB LHvOYKOdQkFRz7WYYhVqWJzJ7SDFOBV1773IyDHoX/0L6E/3s1QiMmjug01qn/ehj4Ab+CQdvj6e3bMq 5yCE4 DqFkaoCczMYXEcPPnmOTQYPCwuZhrXH8PALY22f/bjngJhOzUoo9LGH128I7ow/gGoFj2Ejq0t5XW73j l98xs xtkddbUwz6F6JD26waOw3isRtxiHnyjvY8sHFxMtBsIt63uwEHIyP14Id9+K90miw6wrmq8GuBGyomGb 0tPbF 16+PM4lpAecPw9XIn3uKZDbwQY9Qi5/CTL5Ktxk3AUe4XHHmGOFVUMQDEKrh24ivv6NTcJWJkDKBYRz2 9G1w3 /+P2Iv75ywObQTZnDLwhdyfbALa+Y1Cj8ftPg0aEYmadozEDR18NhTMVd1HT8eBi1pFjtOpvqaOH29cI y9IKT N39nYxc4XR7lVPPUWRqK0KaPrnjTK/FlUDlcckVM6UIBQpqiqe6w7LT+m2N6wi7rXZf2k5kj2an3qDDM ExSlI DIMDk3ViMZiZ61PaQOvIn81rHOY5L8xFCNC3DbQITV/uOCCw7zZGcUZcygZdmII8KUPrfLwl2iwNX/mw mscaR XoyAlGfBf08L8BYNd+C2cX5hGDkd5ewrYR+66iw3RpM0hCM8wmqISSrA2ic67j1YwlvVcRw5xLMdEmZJ A2nMj Yb0zsvIDsuvt7QpaNeb18le4UmtH1DhiTvuI4gKfEZZOHGufU3I/if/77zU5fy4f2/M36TfJLoOnJYrz CTbwa TuOmkFzDSizZfBIUTDXlx0gkBKI+K5qzogHLa2kiC7ApUZJT/7/ds1yL+IOb9kDmXDEpvE1pp1LEPIdu /OrIB 0KvKWDa9YDLW2O81HitW7G9NGbHTwvoA3e3XNYbSbuPq+K42LCaEzUFrO6TOpim4v5NfbnGsZEaauByE MpitE RaKYVMVFqafIvnqs3LBYbXQ77GQ8hAqimisjbIoR17mDiJxKX1GTXEmtkNluhH1G0E0tdAWsHaCFBX3c l1rgw hoT7EGKlPFE0CX4+Nyv1JIln1MjrPsDLlGGZmz6VkVFYFwt7Q8Oa2dJzhTFovGJj5zi57EGWmhlSQIMZ QLwrz GFfuHWC1Vlcnh7Q+jyNJ3GzeDIPefaQRkIHiV5h30y0Ks36SxFyPDJn93pwZNrr+txvQpCviRqnOKz9D HmN6z pJqQv3vG3llcmSS4lIXn/+4u7wWXQdBSMqrGFNePjBxTwf6/uPS0b/+sH7+//1Tx0lmXJm7Cbe9j5rn1 mNs2E kM0RuhILthmt0Jk459yC+TRbnkPF/hc86X1T9qqc3EuQLc4d+6mjjWYY6lvGc1h3H+/sQ2196ayfvKXd UPcd+ u5EylXvqqBteIrEflcfrnU/0Bvja1sr5n8yD7rOB6ylgF8qe0n87uxwKqa3n9yaAw5QBBaWDJ3sZOE2O jYXas vkvooXlld9Pk9lCh7vcYz25FrDhWgBvkh8AoC0weU9d25Ptp6PeiiA4sOYsJrvX6Raourlsm6u/lcy1t rVzTr GOpcNbnIDsfu7dtBzgOlAmqYhwJmd/K6fpNt6YuY8HD/Cah17Uf0842EnYOEJyjXpTYongsHYNNdtkXC gjS7I tIyxZkjEGEpuQAGaJTYAEs/hcRHBPI28YqaQoYKKUKLmmmLHott7apFG0QqgBOLjU8D9I71uV5fZf+b7 3f+99 TaSHgGG8rDNCkyEUTAGmAeHhT2tmiIXQViTLiJXr266QQFzdH8jzIdmjxpODkPzQsCDhoRX3QCbJ+40a 4wi+X feTvUCZlZLD40pvi4U7dPmrO8uxwuivCKKVfgi+xXFIeJ64/kMOP4ihys4jq+sfTz0EDaUfJSCxAh8AU rFMVm GiLfpB1yfzZ0jhvEgvY5RFV/zLGG3qvMNCCeXCURvEU5dqzo523O7yrCocGQtRg6WynGHOeHxR0ZJTIA wEYnu 9rYZQQFjH8Uhw36/z9QXCco5oMApcBp+Nkzjuxcn456jxNomSZ31zydsJX8w+rvCI3GuurfiX1x3Za3g ykoCc xQ709ac2mRiUP+0dsbDUT4kh92ahCN5D/uxHdhTfMDB9ayUB4ILKHsfwuyXee+859NOK0LKYEizfy29E V112v bS97noeJ2jeeu6b+tXxC1FeTA3PpJYLOFaja9tAGFRYKuOGBVXfs2cJ6YeeWKUpyUsUasbpyFGfRpO46 DPdG7 sOR3jb9W1hlbI7vBaLgWBUaLBcHW8vi49an1Mx10pNOzRB1F6p2C/Q/KcMi+c/Fg0qYcCdbKA4CTnDfL P/+J/ 9YNfFu9tiSccDghSWwO2kwpinc9YBp+XXmiWdVXUNuhiqhXkqgnlIILhtlGV51laSJhJh0F1oO1ttzWf fZvf2 Rf8hbREXBZbAwu++lY8uPil+1aRRzvzIgDOdegl4OQ7oxzyHiGBXB3Uez+O5sf++dIXdYXVmLumIeOc+ fvvSx 6/I8XkK3ZCFn1qQ9zkG9BeM2Mn3Xu21tIqtQ/io1nmP15PeW6ffym8gHuXkrtWAAJhQ5PiFoIlZ+0JMk 9bpJ/ fV2Zhkb3eQ/C7zF3FXdmG2bOf70cREMTUy+IVZlIjq3oIYVJIBJnvJEmGmlLABnu6RqJDBBwT58NQgoq UTWss QVWYVT2bPGiLbXeoARLstMjXu5HwLsDR1JZtHeJcKpIPMrvKe3qooJOIKnUu54AMg5INsXJHIgzQdZsv V1Vli fjAqSSO9JLIMWysZvJbgISMmWmQGUwjl+ZyTRx375VUsMAe/0Ig5ygBYU9QxooXr33z0zyNvk49esaim imW1K 9Yu7B2+2h9PlEEMguC/MGv1pnHNc6ikFI2jL5erQO2MqFV6S4N26a1cbzXnIxPa8uL3CqceWi4XsHVMV LPHEm acIhLsjDkaC5QdNvA5kbAJ9mxuKaiAY+Wpqip/dlCWwTiIdQys36aZqqBc1yxKCXrZvzNSUUrEZyzBCK xBG45 ofSpG86xV2VLb3mhLE9G4zJ/hakaG2NN1oto9HQIfDDtQOGmXvsrgRrBzmd2T7Z2zExGWdr13pn3Eknd xUWKP OUlmMrZj/RFyzDT1C5WFXpIcvJtlNBP44m2AF1EJZzGsIN5VKl+NtQC6V6+41e11BUlJh6zLPHy5E2vn N5BhP 0JFXYRa2mRETDwP/XYu4rQLywcbPoiEmLlh02LcMLrM5Dz9xZ8BxgzoZz2NXN7IFAwAUWIJN0WPN4Gvw 86YYl m/HkXMKHZTke5nudWiMTtKmjQStfcMC2NvPeFw9bWJ4hfF7fpLXcmrBhysb5IYgSvJbmJtEFzLHfuoxS psrCQ YC3l43KlPdVm5n9WPOYFzSytDBpEKpDt3id+rsomG42QSPLaAOpn52hHtNM9Xi+0ndJSfUmDwWRkexCR G1NPR +hqVPK41OUiZbeLYSNdSnuZNGIn7Dzvrb4f5Z66lHLyWsSS+IfEsZ7bMtEteiot/ZhAADLbAzPEtmDnq cVysv CG9S1OpwAXpxpdwPBwEHqD3HA+M/sDwg+bp5iXEsEEejVILiHj7Jh5QP7Ky07X4zrwcWRGpCWiENbPmg ksrKj Kl/hv7OfbuU9a38GQZ1IOLPRm3d2wDsq2bmZhAe8efBbnYDxLReK5uEbG7C7QnI+aQe1bNRzIOQ8+MRN yiDWo Zrfu8G/unTCvU+LJrOmsPl9i1t5detjpgwtjHj9BtBjur3Qvnbq89flEc5SIL7akV+EmUBsUsCd+i8T/ tizrC jkhu/bCKbNsppUnVVoJRUmNI9uOK+6y2LQLsL6EU5pCbgyiuAZYi3aTGJ871+vnkaj009zr8kfhVkdOF nVj9y 6gMA06YmeReS0jstDMozPjUr/M069wiJkMf87kycruuiCu4v7s0sITmEH4Kd7tlc3t3xtanz2+EIlwDI HZhp8 1k6VBXBqjg7fqvxuFhyGpz5ci2YotpthGOOEBqrQJrurCTjMAZ+rE/LoH3wJIyj86fVVdOC4xDYJhi4r +un0m mVPhEeWKmJSG3PDfr8ghBnsPLrEDTUZzLVBfVbk6VayQ3KPL4DHTeQlfW/ob5HhANrCihtSjmK2dP0au FwgGE sc5dEU+iR7AgI6uxXpFQHA2XtesKiwYXqTkxLaXueD9x5iqeWwwQwTntxKY3JKoagBAyRK0HASTsvQX3 MG8yj IETenNlMpK53eOjLG5PWaH3WaQvAsfSOluvdt2CQDfenKpLUfPiZ27aSp1OzUHxhy4961XH81LhiAkKS jD16C s0t1JTNGJW0lQnLzRwdLejjqOS6YZovvmtQ8xbGZP3eu99b7Yajmne1LfMLwZN3BDVsMVF6x9+QXKyK3 Jl3ME QqnhhUOdikOr9Ec8sq37k0C5Lwe6IJljoKvzK8CwjHKRMianPJRLXI/wYHyKAlke1hvVb3zHsH8RZsnx o8qJ9 vq/U0wSww5/TJ0ceOkYhDyWhBD36nbGXC7H+vvPAVQUyD0XZmeXkrL3pjczpIh5rBAsqnidDYrOwG7lf 0xIl1 MkAJdRp1AySwJkQMERM7MDjl/8UHC1JGppaeEYYZK95xCt0vvphQXws87id9QUdFffpLDw3xHd311Rok nH0V/ Fbbbj3593nsfU1KbjXmgC/v5t8jAR81KL8LPmuShS3bY7Jq+CGB9cW8WNkH3efHuhOClNpVOholI70Lk c/qLF gSfMUXMDflSYVn4HW2USrBBTUxJsX2LB9p1rBrmgg4Sl30PdU4PtanZo26c53+W06mwJHquNCX0wuBEk 29jtO bXEgnWsThZrKOMydebc8MR7vR9Uie9ajOdiGMWrOPtzvoDFEKFJvjaaAKQaKKkapxc11OqKrCdwGyRHZ PHnsg KYM8oTFAJ/76xis80ieIqfBTJwnEfwjPr+Dw0y8fWAS25/OmVMU+ZKNiCb1AuCbZUYGKIMMO8chsyYH9 qr2NE QmrupuuzuJYh2mVlru4Kg3rzMy0qrTBiT0oY76Zsh6w8ArYjFUdGZVo7jXHIB9Q8hGwCM0ls6/Fl9s1H rD3vL ecG/3coqzTj2d/nH3a9LtzmJSXaByo0ZivzS9i0EY+xlYUNbB0u9aciClsKE3VXZWvmbApbhRoIZA+4v LkYTr NlCZbhkT4H6MuRrS45FLgSyedmtyLlDSqIOoPw/4k+JEM1ezNfaBYXznHsXCVJ0JKwIUyJwh8WU1tTBl nEy6y 1YxDnxRTWlD9RwDWlQ6sPMjMSDa6Adj4h0IbUFfXMUBbpUmdybTL+MVB/UiUIcvXQnC6nPQqvuPNracB G8tVx wkPkVfkUMGDnoSSbmWB9jTHYYW8G5m8WmTlq4aD2JJUrJGkrYK40xEu05IAyWLs2hDU0D7YzqwitiaQC 7jlC2 R4aPRno7F/uRp/cbSFPFkcSMxUA/O4LiXxV6AasADBk1sBplYctV4il0bTH+8Bf20kUHa1PGYD9r0paE tjZmt p18mHF3WuM4Egc/i157meRn7G90LlLQVXSJY9XnmJ2Ed0EdDv4gY/eDg4nod5ba51y72mPJkrPjAFhJ2 9zKzL wHOk0Rc2XfY7fgypsh4whx//+beG/FPx24+jeNPmmyg9ym7o/dcp00k6HO75+HkKvNCpSqU2icgSyVDh KQqoi YDBUm7jaqTmP/WPlYR8QbYxQCF5BnRBni8HI0WdVc8/VLdWtpoSufBRflTaZZp6MoZZZyJUHym86ChNt 53mFL jTORV0bpwv9QU+ZIUAFWbOxQBMYoOjICsds77GG3bOFcJxvt0DxkX0zo28ozJq+gt/BvfL/2foc/wZ35 9DCX8 dHD0fr9yvo+Rw+ht/Lb/T/gLypVrWJ0ERmafDKN617YPkUDg6WYytAeI566nHQjH5mfAurKPujYg mAkn4 +YcXX0OYrboX8wtuG7jsDz5TgxjhlTCWxYxfrTu0GrjrhjC0cs2BJzQs4pmiF6oXvBhxRKcvfteF9lGN cJfOj J+i+jzYyT4/O2IMclWsfFoKsZ/gIcsIF6/pNwI2oOnYXOskuFEi+/zeRczQMG03kGXX8eqbVWlHClYzv hRG0/ F9kcDXY4JjFFwgiL5tZyP2S81xXzTRHWYAEMfRVdwT1Oy7i4H5lNMzIcmmg/a/VY8KaQh2PHJDSr1+ZQ Mo/SP OMbLw70QWIloxVH26HuR9kdOuNVUq3pZOUnVilpKvKFsBmu/Mq5lO3Ju1X71Ed47KfJ6FO8luOmcDMgV t6AJi QXNMhHv1s2us/lGbakrpfoa+3LKdXZJa/2/Gc7TR3UABW+CkL8eR/ByVnl5npA0fJ0HGgtRr6zvD++lM 9FPST inioS/lPVadA9GPRokbVha4GFj0xqVy8FRDFUUyX6OosF6XvS5WYG4YhKcUS1NLAyM76wrR/Ublk8M4t Vih1d kzVHnZwe2t9wEODhPGcyFIfjuPEUIEyikbyTfnviXgTXDNsfOVU22A1L5JBI4JNDE4EZrCbPN+P1RL4M 5HJA8 o0OB0PEaCQiDv6Nxfsz8AQ9dN97az0cchku0Ddd7hpSESB91WmXQZ9CKnGj7Jbn/iX80NU3Ez8hHKEOk kuI2b oVs13eMfjNnpPhhiY5p/kF4etgyOL1VyRtVLS6JEiKrDnzuqLcUFNKlSwMN2gXHhIigYsDTE1aHs9OL/ z8t6J 3mpZA4UdpubnTL8spmHhg2qr7w7q02zIpV5v6qUQ87Es7rbHmaeG2R770i86+fkHJSWxODUjGM01JFqq JufEo tw63rnsjqSiS70YaI/UZ20OpsHj/q+C37W+5Xjl+7/sj+rdC9JW3fowzkirp6m3m+dyov831tqJd9RVF o7iHj T9U/9OavH33G3dxlRfnn82q/x9cAsp8U52nczgNK4EdbX+jU6kRTHmxswq6uVYdZQrsciySmBreyu199 7U85D rkOuLU/suxiH+b+3fZ9+7TWU15SkaVBrRn1PvrPxekQ9tMi32wj5nmqdk2RdkVjX6fWCB1v8riu4oEsW m2rsU 9zLbKczzZzWoNar/BkpdkgOHME1ENLquHx4rLgXDGPNJQjAgQLrYOCvI+gMrQTqdBGPqZx7/J2MX22Fl N3G7L 0Jm/HDC5G8AOm6pREpKYpOc9X66R0uZUvk+2BKzsy/obeswSnUI5xOe4r4CP9/B5qKkdIvf+hvYtoA3Z ramT8 V/r2sBUbs2eRG11u1AjBe299S37IywNGjz5PiZhfT0JMbNP4mj4ihg0QzoC9EdV2jJK6ZISWJvTaFHTI SezMn tPIskDAgVJhEtFpRTJU39NT3y7Z6Qsqab7Hv8q9M+wPRTFY3g+3tn/8/SJrLk9Pw1/LlT1s2Qj18UGyn ha8bO fY+4/+HM8ee/24S479YagV3JxAzVMb8YGOKESFxO4rA+jSQKAJ1kSBXQ+Sk0y9W4Sb9lJt8i+B0LsHQd 1MQlu ikoFgV3BTHz+yBNrci3ukuddhFWAsahygPXZqFfHEelmKSXBe6xWHTCYd8dDjIVlz5TjChCoFoC3JCBi 8KsLY D1CYjmOrJLgbemzj0O+ngxBFRMKYPpoFHXyW3GemRp/KDLZ3kwj3FtAV/pMw106ufP00/jVzV2Pr9/vz H/vG2 Dc89KgsGLb+9hRIvvEn8kwLKI6kWcvVKXoOUvaKDXiJBEG/wG7Guk5gPsBAS6O22uWp0dbX2YoIBJiS5 PLzyy /pDEsjAcyVY9MuOrYi5VHid+DzMI1ZugSaLmnyqyF2z2q0PDs3AogxuAoCcds/Pfh4+yUx2lJOPPPd3V jnSIc zD4KCELJrhpOQIsV7EZZLT4MMQChwlfVVYgBNjZJjOvScOdoqTnGpBytQHMlaAqJnIHScKR7OOtBzO2X +FMfx Evezr7Asgv7zADdrji12uu5hTC3KGzVMphsBEyLOKC1dU5jNpxbm7js6xb5a/jMGAr85F9k72tipSG+u 5AIp5 YVKgsF1fpWncTd+L1kz1oeoXFfPva/CyJ/cccOMOWDYNIAjuGJk2olGz1poA24+4zaqNN6V7qprAf4j2 adL7q fu//I47qpen89vAL1i98b/4SyxnKrnhdTtgf8m6YPtK2dyI7741XIIG+54BrGFfJ1XEGuab59bM3fN+2 FO4GF NcNRyF1sCh9vybxrktSeukMMki0lv52EcH8oh1jnoJtgCFs97BtKpFrhOlt+dGi/dyS3VRsjzH0JN3Nn 1HpdF bZFaV98hhjxJa3Rws3qqr+yxd8FMq9IJ4Kw6F85Igh4PyBPBZAuryH+ILvrVxFYE+iYTfVRuj3pf2Scx bOxPb e1sNo1VfIMiBbts7i+DnaBsx1rYn0Lt4oLAWkNfuzGYY4ubvj9B87kiI2cMm+UmpBWT663+U5b5JE+QA EPWkG Scn6kJy+dWCbt2GhQ824mDPmBYweho8mhsdOKw6zZUuQe8mritT1/8u+iV5Kd8Bj8ukXWmy2ho/uUll7 z1o6e JA3jYIP7LaYZ/B7F1QiLCEy0+f+LmS7e/zlAX1DaUMSX71MpR3M1jFkA9LgOevltaAmO5ejG905Md+m2 x2KIz VyBIpIHfWU4YwzvzerdqVqklurtUpaxASqK/MhnJMKI5f1MDgxVWLLuAPxqA+K4iIfEjWr9IA3cgnF3M aOpJ3 aTj0goWQMChrBLlfPoi97BT7MXWrbOQVk3P6VkZj7LJ3y2cmP4UzpCfoJkr94kKvVgLOy7H/SfBbbxxb Cu9gv 4QOoLLIvj9XfAoa9bSXPj9/jrsQKawO101FCJSM3mLqN/0/Dv1ZkDl+jIb35LoNW9LDizb7eH8macarV pzSSq QqpLm5ur46i4i+znJTGJGJbgkiUpKypC/2GcR6IlAwzal7/wtig9vPdhRipYUSV+OzCLYD4rKdpdm6ee 5IhwC Ck2zUSSWXJrhTmEXLhn3Yw51IrlJ37/brNumU+nv0VKdQnx1tyPv7DxvxVHPv0/ROWp7YOSaOzyarWSI 84s9O TCLzqeDZ24DLcDsn/7huB0k3eG3YuJUpr9gfdMzy4sxxjxRrZEgXGwu6NJzX71KvBLw4ITbZbQwSt78y Ivm5P RiVp5/YkstQfGPRkhLHaV3B8QX/zvsm/4vXF+k9I+gR/nOdpYnPzAmWLDb4yacH9dWHWHNQYr2mTgEBq pZlrf 4aSCPbGzzeAXzAJnVjF5iTy3xprsMh5v3bLsaY1xYfZ3XlTn8qJnT99nN2sCyFSaJ0gdsBUReW+f5/ZU uv9/t 2eitQnfuwOFkSkH6LaDZhkNFA90zn6T0XpbNK0ltlTwdwrWC9ZyyTAHNb1ZvZadc1rqZDJfLTNe6AD1v nrGvs B+yK+aZ5hDxrC8T+NmhBW4jl9PdBS2XOk7SspFs7OTgb8AKQwoxs7tPFnB8k+CMGQwnzjDaI8CfuzX5G N8B2o Ts+wuDVTiTCICrhIVTymfHVA311gOH04EBOZbE0ed0P5fUXn+118OHxyDnqppmqIIzF202dIJbhwc+VJ gmVh6 VgdDFRpAKVOdXlCY01Y3B6UHrvJZYF1j4cSieYanfC42HOiwfIgM0Zc4Xr34xdp5xdf+/r99/k+MG54u qF/k/ OHSXsZdZL+QnpwbCY5d4yS8LBRmAOmjtOClI/vMB5jjXHJxUmpIH3H0C19L0oKMS4lltA48Xogey2la0 IhfBK GBGZrE5owh4aqUsNKr2SlnQucKZmcTI8ua5Tet9bNL5qftQIPdpIWjBF7AeNm+XycHyf1DBLEQ/VISMa lpEZ9 TQmLoWj6u3IAePiyoHnlxJm2Cb/EaVUvCQIrx/hR/7q9x+m0ehY1mzYLTciUp3ZajxrMcFVheWCKkFkx RUBEj mezUwm7mGlTIHQY0SMpxCedKOgkWFGBd4a3K2Hul64dkftB0jACmA6RPE/RbTIH1Xt31AYq+Q4izMIFn B3ACS VgPopAsQ8zpeXwm7lFw48t3dD4QIZPsT72slZs2oxlCNT2r0A02eboOntVHfEfemn7xcZABtrSV5ZaOR Q8zAF o01oD1ay+QZ6cD6kQ2vxrnD8wn2KwWYf6tJ9PcDf6jwKoYr1CHQSKeqzMgpURcnm+emSzh2Au3fHCJ15 nZLzn XHAYk/aqWWLHwszoA6ME/Od109fR4MlBzd7rd0Agka3Owwfo/gPFAkpU6eUeq7tLyH036NDpZsbKEgbi qmPZd j2qbDN2A5/1m4aAbCVSH2r3udMD5VkxYDh/Tl9wFvp8xgO+9rcS6O1NVHO1vtgOwSbL9bt2LP6iT7ZWm 32Spt yvy5kc6/8+M/fvPaIGW/tWQWfLn/k563ncmilsbwgJgjHw52h1OBvn5cyCrm+pXzdnb9gMpR4qikGgkR indxV Fh9jOVV7KWdBkoznC38XjhKVSiRL9wvFN2cgUwdmO3lzAkeO3Zv8OgrXJmL8Vz9Jgb13MvFu2N/zn7Sc Lzpb+ gv+B2x8ETQJwCabwy8VytrrI7vGdxyQQgm1aydQPydnGU5KlNviEKA5ImOTKMot4HYFY+Lc/HXTQc4Uo ab4tl 1ZxmnFJ4DL0rXn1RfHCg1qMshnqKbu4KyFa5Y0SUr8pWXbDTukcdHqaF6gzf5lcwnVrT9Fh0ECdaMSdk qo2oA 1QfiYpw6jPVnEONmO7srv1nRcZ6R9R2/X+G0cbdI54NshM7Tct8AN63HhF1YdgaZhlVEa4mOUn5R0OZp zXNDI p/CXCcPRME4JuiGJQEkXPCpUeJfKHRciUNMU+MPLouP1UBGsJj8i3qE/D8tx9Ulk++EZ4dSmALj4EzNq kSPh4 xeNt3w772Lx5VNk0X0Hm/l+U8Ul3tRYGYQsK4VnM7JvD7KOQilZuPMRwbSBUZTAnPs+lXbFunm5Wh4a6 aIC80 Cy/FRf2LtPsXMCNH5YMqHomFqruBfd6DppeRXvr06wpDZGdqOCccz2X8Kkh2iSR0mcwOkTmiwG1O4rQn 6Opr3 P50whGGNValJzLs/cq50qNXbU+B8F+M2GrH4FfyjNWr2cH4kNSXUeePF2jgCl2PnKlLacKirEr9O8it1 Rdylj hX+j9DMuxo0cDw73oNja8PZB0f1iAjBK+4DOunTrBOMFKdPbSM0BTzOX+CCu6zixqGuuZqtckC1kKoYd 6pAOX P2NgkG6oFPyLJbYZXIeVL8pUB2ptYJsQDcAkTRQ1XqaGhuCDGACKBk7hWVIZ6mCqZTarRONR1ARGMg0a YKXDH ERMuBwU9nDDLmEeOaiFNu45miW5DakVvwOW13ktZhkFlMQ8yqfGN0jj3wLGPpl35xqw0ZrX/vOYfb3VS lI0nW c76gKfIPT5f3S9pxBxp7iv50u1n1/41Ld+CWN7lc1fPuMRM2WBeV0+p5mt6WUxLMIyBlawfBFiQ8TMxm 3xZaP 3wFErNeJckuOeD4xQeOE1gDqt+WEmDmRKJRPJyi6VbGz9O/luc7/A9ttiD4+Tf2fhO4GV+Zn+s9omQV2 jCfLL gccWmEW3L38rh3rHUqL2nnO/qY+aDWO7ulQt+qNXeHJzQ8cP0SYdSYnHUiJj1wrrikK4l5sSEFBb16bp QfFS/ CNxUhfWVIYdCFiA/ELKeCJkSNhAG5vIkOijK4GLkTSyMoHGySD3NWiPzFviYQwTsBs7BRKqeTx2a3mCe kJvf7 1Q+mB6kYfSFwg31ilGx7yLdKhx/Ky+mJv7Elk7pa7glOG+hCcmzVTN38aDcxWCsH7f0Z0hRToT9/mohinder 6x4/u UhWtokzmfBG7VBjJx4ZLpDJGUHfa4IdIA84Z1Di41QxgrDCZvXefVpghZHHfXpQy/KODMWyZ9/83mNHf z39pp YtW1Y+LvdEe17ptC/qt0yTDBwhvtysuFuJP9q7zMWJxe674Zs/+nmGo4Zaozc3L8sHQfeV20cQwe8jIO 9uZVv c5dxaOphYuH8QVD3B+BRecSAbgSdEunfKJ7hfPzHI4QAFwG6veffvAvhRQ4VgfKJOAioHI7qmHkqqH4I wB3WJ qNmlYttLexKXMYWyOhRwGOLQOZJ3A1FkINs+/pry7K4FO65fMF5GjJY3S8LIEeSmTSe6x3FFRJE0kI8y a/78p 4bvUXBea7X1tUKBkYJ4UOT62wPfb7CP9a0V5bFIFC2UzaM0N/rn1neeB9zzB1yRA3QwJSojj3Rs5RXzc urQdB b65EwVv8JMg99+liAh7UcQmhTj8N8cJ2pHW9Jw1TZO1D92QHBKy4882Hfq0AyhIzCaTYQRQPlqGdpawL LFd/9 6BKvH/abeqUbfZoEeqQDp82tgJiUAmqF25d/MLo5c4yKOY1kLZrXxvj4/vvbgf/7ng/CV/RRmK4JBiiT 7QnqD hZjAPxPTEHnV/z0en8unrmUo/825OoUD5eXMShZK4WTLd6ZZulyn9eCR8Xpt2vA4lXC8gWHzn90mqtm8 KvGZR 3F2jQi6V7gquHpgXhJv6fksoshI7i+OznBT0N8h9op15r7+y1IbKgbLH5nGTZ0O3rx2RgmiAOxxv+8M4 u3BF4 MN4GBvQ4JM1D7sDCudtttLpXqu0XJ7Q8KML1EF6WxUIoqJrO2x7Z2bzbWwmmrUoJ65ymHekFxx1IULNZ ehx3k yoHzplHWF6Gg4BsPt4ker0tr49m3iX/dTr229Lfv+/5lpQ06mujm/mQC1TOH3OEH0tTL3/Yq42072awo vtKZm Xi1Gt78HwTMIns2j/TjQQgDG+/bVcWhbQ7tI+SmB6MGJbVSZJIbeaCfQm8A3iQ7iDDH1mOq6OSphuc6F IRhvI AchHOIDyGjgNaB/ZTyJJ5yY4HRh7aTweY4xHE1vK/gzhdib8wift9jJcSSheUK/zVkH8K1ixXNwCs8Le +Y/5Z FHID7Zr8bVv0buf/6aFDTaxJ7S26TlVZGTLpjF02k04FIhYyrN0UzgVkPFS/gaVCbIyGz8j3/ctOmXQ+ 99l6Y HfnPXd3/zm+/n2SpbG72ePCvVJ5/bdHTjVUeufg2/N7Fslaro80cnlzG+bjrHLIhF3Jqxz08vf56JOSM ZNqaL +NhuZ7fK0z6i14bi9/2X6suZkmmKxj+cV4hLJw50Hzsd3o3r4G/xG63wq2u6s68S4RmZYKYkaB5vdkuz 677XA 1kyR2fHOALuuPNIpJkqgQreJeTB4RG1HBDTpD6PaJBcCxxi7EG/f4g/ANoBfdwXiM9EuIxL49Wi0/Fju V2cdA gELTmd58HkiMRg4jVDRPFl/zf6j5fiZDtiiifhWLFOIKGFKiyrxfeUNO04xyvhEa6m3zQVwGwlk5qBQT trv8D 6ft223yhovD++//zunbi5xI7XfnIp6f5+LHCO/6UwGqeydI4ZD46B9keZjDhM3LDHD99pjo6x778Vsi4 07jbu Pu7Rxncpy0kyJrMjWFeMFFdJIGAcLYdUBqCKMyzwdjHzkHR93gAoopKmP04TKNIiMjFX10V4WFXnyW8O aSx4D cAPjNn4JuoiddY+tq0gj7gn7N2/JpmvHdQj9bBrf7UExfrKVhJ9E/fAEB8oD/jXpZAeYmU1NLIeadAKt Qnpuu aD0fIIKOpk9jX+leIerpA3y1BOW0f1JejESbW85wvfg1mm5c7skyauuTf9IE+jfTG3Ogvb/VB4RX1rZd ufQ+v dGZtP7fe8dH4SS3k69jvXyH0VdFviRlmHt4l9WW14Y/RW7M+iD4OaKoth3cpTY7C9OwrarsZfq3fxtPs yS+X9 ydsrH0/cnJwVWAUhar6HSpcjA2e0zhHTWidpg2X2DIVeFMLQpQpUg0HiaozQCKt0IoWhd2ZEwG2R1dD7 pVNYd MQ4+cZifX4b76PRdtRQqoc9Vq7XEE2KKxpJGe9CkMS7hpqcGqQQrnB1giLDdA7BXyjoOUVyt+do3qSvC YDFB5 F3/CTyjJ/oIqkVzffs7JPxAyDFFlkKVideHaevkZViTbmaXLlPD29Jp2BgVhPNfHhql9u6smJUosqANV ZM2id 8cIU0XN6TxflalpI/DY9tovVlCj/84vbxvIBwW9jg5sJo5ykdI7km62ZJqR/JzPSlRdS/vcP95qXV+zH etw+j sfl3/edgz6l3163CTcQEXQjCpPHGV6PTVA0zTAuT9rzhdCY5Ah/Y0HORNQ/hPYz+YfUPNHtV+zQ/0fxG c8Sj8 TcpOxf5FFnVP/hLXDzvdIWtyQwVeNKXlKXTmbJwktVL/T9FQNhQp5rOkcSBT+jCXH1kluHqRrGEABy6U rgWkw 0LurDTNZG3Cqk0mZ0eG8mRAXfqvl+TilwjNUHvDnkoldWR5N/cZ95BE86RjjPN0U/uAL02bVpUcbR/US 9puJX hzjIpJ4SxRoUifbL4CD35IAbJ28Ez5EJjcb9OXl5DQruqJutT9v0+pB4/nB7lWhqQ+dptlSGYB4NThCq 50pXk TK8OhtNqB+sdF6/cuoqdGqs1EGWXEBIk98DWB1gqmKkQvMmCk53pWqp9L7qi9/G5c3c27nCd8+if8ycq zZDO0 7EEMtR3JSUhkdP9NWqIutbajyzA6mJddp/OtwNN5LK3uKCht02LNlH7Abxbc+wgxypeYUbwnc/41CajH uGDmC kRXUSIaYZRkLUj9EOh8d+issFdmD4uNAza+Pe7TCz2XOwIgI9xte4ltopDTZN48g46dZVbKWg4Cb1/KX FKUll /+8iuY428cEVDoEtR+GYuoj3npklP/TcGDdOPI98YNoLrIkzIlVkokULG7vY2KIwDy2oBx8EvkX4nK/c d8Kl8 Kr9TrHATCtzN4mZ1t0aKngVX0sGeNyt0A8aDKxX84zpDCbCZxkZfXCsW3ZaA/J8KPPa7PkjfEplH2QqV nqEO+ 7klsNFjDZ+IIgrgNcqFtZGDym1ppyAFP9VVdPCy3BoofqrQBNRcJYv43qCkG+kA6C7/Kkw95HkQ+V2Xb y8JUs K/dTVQ+NTX4f2W0JUHeA6HMZX9tCpRBK4Kz7UAiUDvHWn0/eSFjCrOwBcmaJIAdU4ekwWerM8QcMjf4m dGDKt sZTVxloBjkrI576mae0+O/Eb6CelRyDE2qEj6kJRi7nY14mU5oDfWTBGlP+R5uI8Q/Z4SkAZmrlnTaAd STdIg cMcsyXJV3WnVF7OjwOWpbWGLipyEUVeWUisco7EFGW9srFaVPidvhpxgSQtxd80y5KWb6NTf5IrXz0IP XhJLJ oYnoIwOzLDuApZXn5mNMvygUjXHzNomlkfJSS3EqzH4x02q07SA14RZxTWa5SFzgKXvYMcQJH1FHGjoq wRH7o jM29wJ9U7sBreqnsrYDDXep0WNERFXmj00WEsO+0R8MbMi5KWgSvWNLNJGS0gqo/zuwe7clIvEV75ICV FR6+W rSiqaPyY5Ovr/2TbHPb5GCagdt5EOy77kSL7cl66p74yFwy3C8ckefkslWi6UfXgT81HaXOh57LYwOe/ ZrTBT rbGvC109FSbl1/gHGM0simt+JBmprhORvUJK78a9o9NYooXJlLhc6PNF6HlyzpkArKVVmvIWdb9n2s1M +X2zx BJJz9rxnInv1z9V1tzsdoNmaDLt1WChy4S2CuTBv0KkSZ/ZAb3sHnUzicPu0YwXst0THo+S68S0mPeEb 2PL88 jxIoUdp8JLCUWHO5RJ6UP6Vfo1rhP+uAbQuWzV2xDrZXLk+34Wh3kOXFCCNDRqvAu8hKWeujawW9LG33 2dC56 VA94+mf/9lfC/nOpQwNShrXZyPgPIZLOZYrHeUmOpNU+wEGdXE28nrCGvH1JHtzadwTz5g4POWJ5MZAt vpWal w9dj5RXHksy7fRtlG7zZXdvzXN/I48AolEdzNqRvovhyIVJ8hHxDzGJJ1s3qSQuQOyFU1AFZnj05o2nM HLbHg eGAXRL7zWAmY8RiDYVhkv6ZFxuEVkXxhbmbxadRdf3ettjlZ246nFRPL4QINT1EkAHs3oLyo1+NNcU1Y h2arS 7KPFdxcA1tbohhmaQczxPEpAfQNLLAJ5tUlUfW+nTPSj5V8M6uSo3rYvoRPSQITOaTMKLh3KcZYMjv4y +5Cmw aXVeS8v/1JJoyzicoPLLvdr9ZdAYhygon54vGReunACtyAzInXZDHGH0bzROaRjKVzbMIc7NuiNEWc2S FQewy zhFE7h9KvascoYBTbOTp4CMbZ/7PGtMcPV9V2mHwYU1z3JNGBL65jfPf2Vaq+3meQvhqH94XIPgxUtj9 2jNVH shEn6MBQ77NHtrRMiDM5P+Q3gSzEIYVLf+0my9iS99ihwyNLR4ubqPhuXS9XzOIvt/2qpOvMrX5DONq2 c11Cy 1i3VbKqH6ctAY7F/QtGr+9aak/0Y2aKxCEwOE+wPKlgOW1+Igh3m64R2wuGrTUJcz01d4y2DsGsj5DUm Ol6dZ 9ymI5mx1NG4fQ9+H6hCVTWEufOHVbFHACBiZTag4iB+kasQHQjLsn19tXorraVYwkkpKlmDPDYTsRNOI sTVWz NbX6an1PiZ/bk6yUDhNGL8DhHSniYNlddcj1U8lPHLKVbjm907r9ycgoXyBrwHstW6EEzz7kaNgkn8/H 98/Kt ygPy2KdnCgrs/qwFSB5Eh0w5tAN6rcl60wb9nA/etrLS+i2pj9b1oUTPfz3cYcojp4Driu53Clawf9uz 6yl9m KKD7+mfbpadFEw4ltDoCkLMuAyq7FR8HBs8LPY6Yr8HP3aJy8QVXATJwF71HECmfPKC0EllZFp32K9sE dD8Tp +6vTF8xcNu3viDcri8/JzxA7vX1sn5dIlYvDKd6ftzIc7MGDP5TSQamVMHcPzghyQRe9WrbPT4tukGSD RGboM ZIiK4gxSjBNPVaiES4XYqnOw1RX3HpQQuKm2gm/n2nSXgWYnBIH2MykyskiXelH7U35uFVuqSGUo9bn6 sryZd b1Osc8s4Xv8tTDVaTG+9GXOQjttufVNIXo1ZkmJzbTjSGOZfLq8wml2SRNSU1g6ZMNobSKNDrNt4YedM J4ENp 4e0M9AkulcJULxILzPjuAHMFS1ABocZ9TEJsWj6wqamMjf+iRqJ1572aWhMq6L37f/n9Te55cKF/ni2A lsPUS LpP0mNk/853V47er3xNcHw19EqRqtL7TxEjNvBuNM6U4owDD9Qq1xdtwsAR4hVhxZMP+WYb9etlR/W81 vde8m flv+jipXoolgSPuv1rqz5VN3JhQ1+CjJujN+t2uiUmkpMkeUlXChHoaNW+NLIYmWZKjz5HjLvOtPhBr9 ZAjfo kCkYY9UJI8KiAtixQluevEc+OLYW7WgDLAfzAbjGs39luaqYaAXKK22x4jeuUreqJfD0M4F5ccxLtAEb vn4fz 7hpOjn8S59SPqAAzf0aJz+VpKaZEuf/8SGa//E3Wpc45+/9XnGfYhEIPd3x6C2dnim1uW3sgRtj6o1pj DhwX1 j48+BhUFkS3Pr7esO3Aa15Lr17/4hPAJFMMd2ZhAKoKfzTH6T+4b9NUhRDK+tVlpx8TJtvswcKj0vqVB 1nrWh XIQh27rC28OwjvyOz3PoP5+v9NH4E+xecNfnfhP1e19BtdbIaq2nJvDBIadORA5YDkrTH39qkBtgFUTU osRVx uIO4fnP2gh4dJKRCEO1tnjdmyclksL3ypoU1l/wAXqDsTKFWTM9D/jTHPx5qTU9TfkHtuxrSnSAndCvK QSsF4 QFRZzl6o2wNtaYh13MDY37HZwRMDGTssMD7QKyqTAXyQGCGIZm/Wt510zA1hjL06NGu5KLVlTfjd3Jb3 4t7z8 7YwiOThk61j52620brPuCozIFhyaPCuT4290wcT+X7rW3xw7+rAiwm01lvuqfmBfdJar8CdRtStJ1qoG /ltvE beW+k19fnjEZMatdk7J05vYfKRvPteMASzmdO9euq8skYPmbSnotdnMvtZvYoBlpghwJa6y2LGcFIbw4 AwuTI mtqCOJh1a9kNimM3wcUgMN4LVvisoVyKXGtfzvAv+0uJLnEeKUMaybUY5KdPk16Lq0tq/2jbtbnnAQBc lYZcv tsvNnB+DPCjGd9no9DYCbXdcLn+n7z/ApsMf9YPiv9y+70oNhh8L4F9tHojTbeUOqreoC1e5Jce5zPc6 LHx7I UOJzVyTwnyzeHya+ZNPFAnl3Wy+BakI9QsoBhY85vufTjxVc35n/ZXp/6Z7JgJW6136ug/7n8ZRsKbcn sJ7Of z+WGPfECYRG7O4goH+wzvDNvCd+JTQbbUQWkFGewz4ph6hzk204g5Nu3IC+b13+7bl+CoAMjSmtz5nT8 9VmPy 7RL0V3HZJerTFKhpxyTgDb4HniwoecgM6CXxzRpbNhnRwCFYwq3od3wXHjbEo24xMLZmRvvRdFu5dWYN nVJe0 bjx2IK3rYjuL2LX97SOZkSXt5MUF8ZKI60hPECLx1Gx+Z64UB4eaRB+qnp4VXCL7xf4WNpYAnetNrymR zgi9l bhzg8VIpiDjjhNrINnnJgHM2jBOE6Lui23V8Skdxigc84RW5XxYADpfE4glcZWJuEAgIvwG+3js/qfc+ Nf4Sc LN3llJyg8ALQcJdAwihshC3YHxUCrdF7VXpjQZ9v1uWpZPOid3UCHdNNPAjvbdQaBrx5TMa8uM5QRBSd WSJY8 CQomGJhdj/SpNVozBTKi0QtZcZJCjKTkaRoie1dJEoqqfSnSq+98gymUuTECrrlbPpeU42c0getgHGV2 Sl3Oy M7+h/wbIIz1Wl8ORl1yj5WiN4ukBzJ00CXH5pmccggd0pEjcse4rhPj8qP5j6ukQ6Bzs3etuJPs9yjec SE7Jr 6vs1E6/nWBXl8QB4uow7DdnxZMu/Avwad08g/Sf+W/krxtaZ2SzTk0q+Ld1U2wCMi8PZDh0wpDX6H6Cz lUqMN E9bV4l1A2umgTfseSRU/A0dImtZffg4zoDvQ2Ly+DtMOktDn38cpYilTkaA3kY/wDfgO+AGkCGufb8Va euR3L Xqos3wvhJilq6t0TEkgICWW+veNltbMTWcc7czIIPWwl8qn/kVAsgCoYsIJzrhciaswUS3ZZs4ccFzYc /+khj exLpPwt/M54MJoc/cSYChWEuIe/wH0kAZSoDxlP1h30lCvQbImPCKuPO+GcVyuWIkSwImNeuU+B1PkwB 6tRUc 9sUBqLQy64cAMWqg5sCmPO4xXVRcNwLOYRkmTiFxPL9JMrggoPaMAI259yIRDifEHySM1H6CKYFFdf6J oILok veH8bfEVXrbrTGOE0NQ12xTScv+HkQCsP31Iz+lL9LYKMNjfvbsnb9HNZ97DrpDuwx1ooQfPmHBZFk/s QH4OE Hu17lsxOAIzJASwOA4Oo2dVJX4/44YnXrtGXCxZgtYs+lruFYazVWDdwvrfec7cTuRRa0MfkM1PCxOqT oM6mA 2/IyCS1OyK+zxi51eIWbKiRhpIEMoVKWaL0GapbW875gjSJH6y2RvgI0Wfb9ggQKGI56cY5UmMVmFOiS a7RLs BuFiThpDaJlZD2XV3Ey9tVnZtsuxOJYdCu3dJWxQ2cB6rH9GsNWTGEtusf+iivFHUymAsSL+ni0uCSua 8b7Px Gj6vjOo+8OM3onOqSxlV2YYdpB1dxMH6EJkP0OvozlaMh0K2vTNVZxpFtQ5pQ/cmp+Xmh68UDtLlJLw2 BTHpQ +wSmmkV9TCdbT+nC/pUd9kz+MaexVeW/dLX5FPdP+XUHOapb4/79QMiTINi9z9OlqViLz4ehXIpjoNpE aLnTR GZm1Y9oBv9eWJ3BWpzeJyTyEz8gaiIaF9qxTpwnZTO4t/H78LhdjU0H8M7bmW85JgcPGVysjATSFyZkR aptbu GLryZw1LX4RHKKmGuyh8gzs7sxif/nF6TspaoIh9bibm+5demkagcMbCU7hos74W+gHlc+Zl4f0Wop8B 5Yn/K +sm00hBHEz37x+d42/wYftBmhtVhZjKIvbEb7sk+cdxZc0SEI8V/4d9z/AH/cdo274Zvy6a3tId9s93F 3So5o z7cOd2pOgaBB/liDX2OaHykJMSa3xXY5Xg+FNRRNYtWBuMWivWaO9nTfbj6Ib2vEvuGTJvM4cxqnoN1f sNPUv h3ROqHXtdCozxXVmb2nLb/T6G017LQ14EM5W2kS2+neFskX3kxnRHMJ52k9T3LNJ/0Q/mfaLmWpO2IzL kTHxU jZgYKB6TLqQ9OW/PQFuQ6r7vNZBRMf7zp4lzs99/lsFwDg7UuyaKeuv5FglGjSWiYcQ+IdA1WrIGJprc Ey4pw 0UH8Q+lLmvbttSOpGln3DYZHFuTmX7IYVTSSbbdjFZXxgxn/Ma+4a48XQYMNWID30LzoswRFzRFX05Mh 1ECv8 Kj3PmWuNlROQ7Pk8fo6w8vsVRRLprhht++jZAFNfdbRkZ/7jxM/7P9blv2kYpnV2qVvCa+d/QAmKX9Sf z8aTt ffm2qrr8LuC97StJSa/Zp4V29TTjWAfhCw3PgJkaOYxrGnazChoGGHQSfpolx7J7/aAD3hk81pug4p5t Xz8rv 6yM2qJ3nl3D9OpgvQV23LG6qSgtgz/EwymUdJ8zvLpWSqrRHx3zqhZYUfgHO0DqyVY+Mldppg+DJ8Bdc f6o9c 1vRj/TH5B8cdUd+L/XxhvqkBVDXbzxS3z2lobpTAW0NDetWy5hxV5T1K7SO4Wm6dK3srBbfhP+o85XUV ddG6S N5abQmkxvq9nQ4trQSVC5RCLdtXf0EbyWSn9BKJF5hUwArUSR0PiweYDtRZgB78IznzE1LK22jJ6/dE7 klwtF eiasRvhw1qhsIUqyyapi1pB9cGpJ10bUC9HmtJWqHYpQJ7x85klo1R5P+Dmmj5RPfxNA961ET2m7X58a GuKR7 pNFDdWJpzMv/hYCdlY7Yz31/2cBFyfZ/Yx+B3Y4n77XOHv5GPH5n2oDaX0q7k8vHSPgPb3KMm2W9CK3B 3TZfE m12Ow5tXhQRlifad4qa1nN4S0pl/D2JyyoTlcOB7SUMnnahxXew5tfjFBlPsrIzQVOhDGdYI32W1BZJ8 1XhZi TDDMQ5DLdRonGsRX1XWQEo1b0fNM2T6OtKsi9WUv32u1o/vGFgnGA0DUXKoSx3EsPKm4UrXSKxd2EN3u xu8fM f9UTcA5LOxP70hnrrP9/6kYVlvtxmHNxDF7ChiYI/QFseLkJ2CvuH2U2sP60178U2WFQaDxegWEyjvxg GY5CW cuPBzLqEWl4KKbp7hGd9Z5KysLCzPAViJVssnsiHmF+5LneqBYMk4XKsbOpdPFTeBxlZ0jXOpa1Xhesd dbb7t /VTwiKV9is1k1Y73q2U2nm/bDoR/Ox490Gg25Cis3gS8HXH9RiuvmOnwQMspAOw2flJOViOIIGFZfDtu wJYAD uhLKvBhyQabRV3xn/vKwqT15cg0oWzWFVth1XfbSh0FaKf3DVILKqDIusW9qLJYOfrTr1tSgPz+l3hFI pGh3v Lj0ruVTqZyGAY3TEC2RyBmdCSIdfFB9CBxFEcHMk5B4Uyzw7/zeIDgGSI/ReuKy+pIeYJrAuHWmQBH0g AJovx mW8k+YALvkRNDW4EiYDxFb3M0BNY74k3KbWmrFyDucCWmZFbTnlOjjhmPbza8c8Z3w5Kg/4UdEgnxl9p WaNl6 pQ0f9ZsQzv4UnBGJzHBfXaV3am52Qgtqj7Z1eW/GR5GuetbnOuxUdr05daipePsz1dT/8ur4UXTqLmuR EpoBA a2LaspyA48I9hJROGg6l8t9H2M16ft1vLSnzsLV+NoNt3EM80Jl5WOeJs6C0a6vQ6Cdv4YQxZBRMW7CH GbeZD XbkNlQJ7iBCKwuKwYQ/WwGiEuwmslb9Mq5/cQu6IJ45Zea4n5rIATEZRb0GJ/L/73hoLarhPS2UT1SlF iL8wy H0hVm2GpzIam+ZjfwtBwbm/wDIFN/DYT+RwVD67No3MIGjWuhapBX8gtAI5sw7znznffP6k4xRPZ+6Hn D9JSp +akEyeLlTcN0rrhOdAL6HQvToNMWAiaCwLJLZyN8/8Gg3fh/WBwcq2Jiy16VQuDY4jKdyCVS2HmE+ktj 5BcBC RIU/PDjgfwPPyo/yv/lR5gtJd3udwW9mWxOgNGueNf7UzASAuForcdOXUtEVHjNkSHqD/Q3Rv3XIgf9f lyD1j S71zkKhZfAYp1DPfFjDWrO7Eg+iVL6EEN4WO0vUZS7p9QkOHwhYYyaxaafnjfCkknDfSiigppUiQrqkk tQDfe TFLpVeDxJyO1b4xxm4LSL6KjgApwMwSxHqfEGfjONytotYO1c88L9clByqgRgwOeOdZ4dJlHGiAFzUMN 4NIZS MSaEBs6hOPSSgGOMwkWFJ8RnxkNxxPVNGDkqc0ccu75I2GQdU77XtBI/XwTSdegmtUqki1UnJ4wa8kce 3AZxr vgtGucLyttpPR/JsTYm937b/ZTGvaRMSkHj/eUlvDV2qHPE7Bo4lSXJNT8I4asT5la5P1cxMgITeeRAt 0eRgC iOJRiTLLGxcamM7QowutgjhCGjSWkLDauDL9KZDN9FTrgzbBYM2S9u8lO/CdCA5no1tyhR8JCIXGya6R UQdtO YpCNudFHkBib6iJPqj08E3fxNm7UyGUI8x5Q3P3D5JoTqL2S5eq1Hl0D9FL0L0z5w4CcqerwiMg+nalC atqET znyYnbN4yxTaQ+roQpfLZc+E0VaMMJa2YLbD4r2i25FK+6C46aqoznYhrQuVVcj9UT5uJZhAgZVh6Db9 KtC3b IC7XbS/UJTU4y3Juw8FyW6DrksHlPZ3WWdIjraK7duur50xD2ySr++hJXrQFfBOMtLdNBTkFuXKCjR/C HLI+A 0gWIfUN9F/KByWJ45KkMt0sz4ukafhaAbGtHV44CxM3l9Gl+vqyBmLJLM1p683T8/dAKqVgigLc1Ea9u sNYDi 1YhfGUwIE3ntw7qjD91bFM04cqZvcY0MRd+n4r/hX6GygxMQalMUsHNeu5fGmhaApghP3cNRV/DZAHQM UWhLc TeS7pfeqYot8SMe/UxXknAK6pGwVHJqT78+osJCEfV3CjMNkCh9CzmJ8KgL38S0XuVxeL3kjAzsngIdu e4C2+ gzcWIixhufU3hyo0TUygb1DB7fWB3tpqbo7N4E78LJJly54RnCsXt49RSyw5kmxCyB60/l1ZS5PB7Aon XScui aJZSIAuDA44ln3Qd/oZaquWJRsoRC5VESI0HMMbG2ZlNcm+NoOzrDiWI0bBQ+L1mJryCkDIllC8ACp64 9vV10 XItZpKY0Hpp/IAtNy9LStST7LuN4CDY/wNRtl4M6pFXiVhASwOtJnNGJJKyqhmdmak1Yksr0HqiZgv+G oNPOs yhRkWHuCTjnhPC9yKV3y3N78vNvuLXCmi7AGSdh1axfCctrWyQpSJrhpgnZdlD11zLHU0MkI+jkdZeCv h3IT8 o7LKf/mkRNrrHmnHreqHK5eJs0mtHGfu2Gvt1VuSWYWGUeqb6C+/PjrH9C9cI8IrSvGyj1y45LiVSzn9 vTQeb 4LvebliLyqy8NKE91+LjJFlfInF6xg6pNhNFXGl/xm8UPQ29tnF0I+J9nxnaH8VGagmWMagDyYnqMoLt izk/S GfqhVmh/Y8WOcC06HBEA68v1KIETGlFA7iOqvx9qfv2Im1YBfo9VkAQMUFl/froWAHRDAlF5ptk7ZU4+ WTADa nYCs7alpFO9xLvP2X66DD+W+ghR1QHjwo4s2UY8CI/blN9QOy/crLl4r5EgDEvrnNwIbdkUrRtf7P49U qny6p wBDCN+EWXLRcH3WjWYrR6L28Rka9BT1IHr1aDYOyDxkQVhuoja83Pb4Sr9913WbJQOXvMswxVwy2KFRo KTjeM W/CMfcbECksnXyyPQUtKCbhuSdE+FzYjo5Hbbrg+jlxnBg22Q3pP915sot7S0tyH0byNCyTOGjuuzfBg YnN5N ZeBLuG0o69FZvRYBgCpx2WeGy26qBvO2wva9WpBFpwO9zQszvWOgO/9ONnT0lz8SkywaYRxJpJrjKoMK nHuQJ kMWt4T0SeUmIfmCgHlRcXmz5VlTVG+b6XSkHtzO6WtryLyNBaT4EilouKOU4Yh9M9expHmXjX8qT18TU tS2mJ qou9EqskdQlg+Aq0BaifJpLMOpZzGxDyd3laAeFuczEq3VA7wLYB+T4WAaL2+ycup0sWRg8fR+ufLcR6 p5H6y PtJ++oZuUQ1c2bHix5fY4DzRsP4BHyKjLBXSwloo5UikI4ydWxu7LrAaOYf+G+7Wxk7xCj8fB8d9U5Fl 4Xync ZtZo4EcUjUX1s2LsWjz3TIA5xlSIEp4k2q+ClUanDvKQDx0rXG0XVv9pJeTT7WO6B3FgDELGgUSbJQph zIL4Q tsLvO7zLI0mbcWJ3YC23jgZ+POssg91x0SEYcbDoBXr47qIMGausYo0Htl57N+syy7FTsLdcMlnJB+cx ZDbFX ac2CsoB3lRL2ZFvyAX5eH0FJrHjYrvXjenbn9xzpcw9kCFirHUX2iB0/+az1Qy0+dtHVKNgOkxK9iDg4 F/XP7 zvgIrn8u6o6F/yFJ9qC7iiPDa8NT48q5oOPqnoNTV4d3p2rCqQRsDbxoRHEUfSlyFnmFlYUrm7K/VvGB b6+lf 3dgld/QObBskzAqm+iGHQi3uNCibu6ApMY6ejDWhR68E81F9ix9faDBwI6iB203H9aWHIK9X5l/oHhZm 9K/t6 gnr7JKmZOBTaPncA0H5G9FpYs4kwyZ2DPhJNxt33h6Pc0np9EwGF3b2qcMG4ihYZN9/Au5DSvv5jrs4u T8oVu svYryO3L0eF4Gp6r4E6k/uUCqdlmp0vKQOVxman0Qp0DtkhFhQ15AIOeIZ1y0VnrRi6Uw/gEKmlunRah VwESr MbEtmm2CNyn2dcQEdL1RNP7+DlQv+qs4/05H7G7Tqebjzae8sS+0dI2a1AxcOMGVJ1Tz5K2r8yPyND08 8Qruj vQIeKNw7A4NDHrpA/1EKE4vxsflz0y8cVIWqWMmc5dcSijCpnwlLTKyo2FauXLNMT3E7VY5YiT0LbvP4 YMNyA gR/WFOoGV7CEjM47kjrTm/6gF0wH4lOCVXj4QT4KyhH6cuLcVJ/IsyVThSBL2f3q5llRAaUs7/r+dX2b hKLep HY0fhYAp0lnRzL9j93dKrXlzTvxy7zL5BCSkMZ4tugrGNR1cyfXo87mlsmTH8/t7t+4rq+/g7zf8VYIN wXghO 97z4gv1IM1IUtp4GV2Qxyw8toopImtGKdoHuyRYXNvGbilKi7ef0TKeZYWbqXd/r6+/o8dyhJOr2SSkH PQ1v5 5sKUNMiJjoiIypFKUirwu9yinq7nYjjf4N0g1G1ntORdJWKnTdE7K4TH6OZRQP1OveG7YBO//Rp2vcSW 4iwzz 9v5lGbakkgr0+fT65SBKcpKaxDYg9KRrKvCBkeVJ/ZMk9YTbKn58thz2u4VEk0ENhU1fwswKV7WohGlQ WAFE4 BBwepGW8irzYI9Nh+Tw7B/tAGlR44VGm7orE1TW5r2rPSlYOMccgy/fy3TnTdAP2k3fDBAublPzy2y1u MJeCQ 6iYHzg4S2nM7WV5R8subqrrj02Ls/hnePwPlorcS9zGRPMWP/XtmY38o1wxHMJRquFEmpT1VdKcMA6eb 2EeId Gcluw0AGQaMabW/gl8WCuDA/HMKrjUOd1RbFtjgAmRhtg5i/dJD4yESGxaS62gjiU8B9MKIr3UK6P57Z OwSbw GJC/v0cC6cBXlGuF2z/YDrBmWWLxIEUbT0prNCLB3VuKklfiVcc9QoQkT5ZEP8wbf6NMkFuZZVE7XbKi awAIv r8uCkj5mB3qlVMsGRp1CEoqu7cc9vfaASYvhMHpL4hp2ayks4zaefgPmn3s9MNvYphvzZSTwdC+vEWz0 kLzst i28qDFuWH8Ac6Z4fNbpyTq8vTyVz9h5b6pF0iW6xg8hBMbJcvPAh4FVpYYcnLHy92ROegH4IF4H9YWC+ ctmLd keVqYPW/MJhEiqIt1PTsrvXlnk2u7VBCo7Kik8tuqzBprKppiDTZg2zn1sIhkgaPAK5ljiSLgCL4CGGN x3MYF C+ufHylk3X07uU8srbez5a4Md1PY23GkRtImnmhIjuRUNKCktFt15pSvxg3GxYLygYDxlFd8YRmP1ekV ya1bO ohZMyX7MnF/oji8bnTlF01xe4s6FYGIfQtjfn911zrGrTapuF9oRcYil4rpuPrteKDRQ45RhcjVOSPPn lqYBB SzPwOek4sd4rQolLAH9AMQWMbCuPWAwp9/EML4mXd5Qh9PKcH82qR44ufwYjUdNVbUt89JZA53Q/G04n nFIfj uVxxQPPH/92ZXuy4/Nla5j0ZF0umJrs6MGd7eVJh/RCMO1fviBCA8m1kCLiJav5LQvlWFaqhj+WqxZCo 3/2rB DWQMPH01cxg0+BqX8PdLt//oJs8JRtpiT301fxiocd+dVkbWwiL5x+TLQ0vfzLZfTOethP+cozwPwmmT aloHz y+QpmhAQP2uO8wxO/eaCLkg31OmGUh1IsMKdOUzyHwN8EGwFMMohlZOUsLHdXJzYNXl6tiOft3O8BUtb VXKLS +PTjxQUsQnsBdDBFlCFynsOdiBuxeptqMTANWcjlBV0Jgirclh5LVpg7glz5nR3lNEoFpB4Pv77G5Wm6 Zi6Ts nDEqsU2+cE0Rk1yUZQhqI+aaodK8wxq2UDV+hpCBd8TMbFw3b++xAO7a2k1ucIbMbpLHoPTsfpY9caBp WmvFY wWcLzSpe+mXIXfsjZSWnX2uXLtbe3W5xs3YqlzhFs3uk5zck/0mZ45P/cUgyvvYx3PqLbrCbtmheim5/ 0+3h6 NytXHjWRGRL++esOMbK0h9HcTG8oA56D5zJ6hGDT68650NvSvjbpEIhubMe9F+351MS069AKbe56d2cF h0/LT hR06QFz0UpBURs3yuyw0/64PVMgQgK2l9kNuew+pctmYR438qLYxmULBgA6bW+moEIYk88/tfHx3/65P jU6In /C9Sh6Ti8ddyGXaNZV3rCyba3vg82729LofF4zb1nKzzRxP39nHnTG61pZUaeRbWlEYzj++YxqPOupeM ftI9/ vexHZFXm0JCG9omBZ3PbubrVeyjr8AQIirtQw/ZG4xTTIiyMzOwcy2DQ1nwMPDCySW3etwYmVfuuNcHL Fo0xE q1cCl6p7Z0hXK+Wa8iUMNwpsU8Buf0Mft1Q5jgguccrrrsszvV7Fko3hmXMK0sX0Lg6+f3CHIs4Kmaw1 bS8q7 B+l2RW3wsLZOgcdECIjg8Z5v7OvcVHawnc5pDeYf+pcAaZgrJ5oviZtWZ1u6qE8h0go2KJi08O+OTyZj Mtf21 h+40qnVT/lyQ+cxdBHvsUgd2YiJih/1JCI7nfHDn+EnwtcnnLlyQ+fjfFZqhGay5KOCofbH6d3LnB47o Wypv/ RaMEy3xfpOkpCW4bIg0anxY/TuKTy/I3OR7Dbgq8rn44/a4LN5h39eGiR2L9GlufmFQBApFr1poxZ1j+ GTmm5 WjndFUhJkvFOA5Yqof+EkfvKd0kdWcbAZZq2XP803vmSKoZgt2hVwbjFnminSsecqtsNdKOA1saM1+Y+ szbpN fdureq69Vx6TNEqV5npm2M5diqMsEen+NdZM7Gl9y6X1+k6v58KyS9wBw7Nj5kBSAP32TopRDfoW1+3o Ashi8 /m9J/1jV3zlhHDJuygxTDQAb+my0dwnHtsSEJzFc/n0T/EeJxCeBLGzJkDUE8afGszD3IBI9zi7GhNLj NCjQ1 PWZko9VlNZj3UCgrTlmtiSKeCL3NqXS3GQFgE72qOMpvFPNwP3AyLDQ9WAQ0Ih6WKO5faTvrTTM0TPY7 Cj4+D ZjxhVMvKY5VEwza3N45nEKD/z/+Oufcm+ObKHVtryvBtle3YO5yQEMZjPfcR6nwehFn23WZSZQbLyjxX wcq4E IIRMYUMHLPlejLPQUUDJNLBVEAPIvqxR0vrMP2iJ/h1oh9Jw6/ghQFkjalfj30ked1dh5eVWpXtPFeEN A+acq MIN3KtfcFItULHChdRoDtMzYp+oRHqHnaCO7ja9hkjUnbDDvEQKWLUvL7W25dFgRahKXwWdVqilQ+rnt mbBy7 svE48rEZDeo/ahoQ4Zo0lO3iGZNm7qzjU43XxXVuIKsb9xpf3SUMf8VDUUkO7MpqB5rzOU/swsnJ28bQ oHp51 TX0qLflyX0O6XnuJVuT7CQbAsBhuL8JPePC3hSIS3qg/RYfdkyeiug8W5KXOfdswmNog/dvl1Yq3h9qV R8qxq uOOECxS7T9MS75r+D9RBZYm7tlWVA8cFCCWc2T4iQmie5lU6oJeaX1oOvEuGKGvDKDSUDMjHOh9cdf/J v8SqK OKTfAFj6FU4NBfYhJvRtuhPrAR0hBWgUn8GEmyndbj7wcLkTaP2h1tVo7vMfsuRzjGVsxAabAAuEscww pUA+f jMVBTICQYCmcB5SViJg8L2Rax0+jaQZAOngdVWWuiE7x5HX0hZClGZoibLp6PTKgL6sL8/gROb3CO/0/ whHYC EzIOQOkPlrCj3KS2laAbXXgNYrQ49Rc3CAfUyj/xadcBq1ETWxBAFnaCje9zqTOHwCdII5N8sug1QuUG /9OFk HY1C4rzJedmVqsnPqGqiV0+eADqIX1/cGwYncMtwYPhDMhbEiMYgF0Hs7BG2Qu+qMnTvJb3tZuyujjta I+mce M3F4BVyjQdcm+VmpXLeWW1nL56Mc8cU+fovGrfUbHozX0dZXMGbXLJ+ymRkqpjban5+zpRy4xfIOpNBB RR7uR V4eozvlERIwgyje84/1l8v2l9X1Cm2tFFML40HctT/mYn58ZwavA+b7K10Jf3xGte7/j+Qi8+jcyLcSZ m2gk8 v2FVcEtGOIRY4qY89YSujkoEmP5I8jxdvV8mICeZEpsfJK+fHLbJVlSUHsdBvL6WeWgfX5dNN2D5/+Nm qmZ5w FqSmQWNfPegbP/EH8WgJ9CfzhTN8TbJiN0cUgq6JKKS+mCOzYX6+8BrZMZA9QFkhL59K3wFAHvIuhhef neIb/ JfGriXBOXOHG+GnREeA8FzK39bU4sY6cuCrS+Mz/xrJ5hlldyBPBf/KnEu3ci/oU6x/q7vNm0UST4tbR W3sHr p6k7j0dkoYgJddiIZwzOIUWqCXM/MVfWMZcRo0XgoIuUtdq24G1y6vZHD4uUI3qYP7FmM7HT8+J+ZqJ+ 6qAYN JxQ6jNNHzSHEoEifEVyfFPJDw8xT1EkW6qcT1Jp49KOmI5JMsI06aApX0Qcm/k/DAxd2o39YArKefMBj uRPl1 lCpo1PfzPcrIJ0ZYpsJ18idTrZrIt3zoOhHTMqMZFy3jbevCUBIM7MAqvp9EiSMq5DMv8Qw6Jrd/8Rpq K1uIZ 0vq5i0s9U55O0wjy7T0NLoDZNHVHTU98KGuoV07sqQrLls4AMfwsmn84m1CFw5Z10SUgwzCzaY3gm3LS GxtN4 lumtoDElaIYMJBHksWkYkbvIRifkNYDC6U7TU4vJC+eP10IJFMEzVgKQPHEZHY2KOtsNR7Qi3saIogYS S3qRX xLb0MLeoGSJumPOFvsVjvE6Qn4XwmbKQCCIDfXkDcFsslX0o2z82WWfw+L0UiyGnpSxAW1whrCjQhY+M 82A0p vnt0qh/xE5bfU/Bx4oDc9eXTQh4J7S4iiudL4xeYHa/Sc2w5hDF3GJpcx78CP/QVxfmkheAx/lk7oRGS XSXDl 5cKzJAvpS1tpGK3cxCKJntBU2RR3O5Z816m+y9q/RskX18DV6+a9ypx9yeu/oyyohF+3OQyjdRWhzvkX 7zzWB 61bsRzsYO9l/n0X5+xI+G3523B2XBiFylUO2fNuuyn/q3Tr/I6FyBoSr7Yp/JI714/6wrN0MuNqmBKjh FXPhH d4VQw9gGPED6gGGcMVhOw9Y4/1/bq02C6ZT95QGH/COdtifZ4G2PSH89iuOU4Cz0x6zqbHhTbN58rAxh dMjMA l8AjTKf7EkZ1y9++quAz9IClqB2RhlPo+BdSUyx+1CogSjmSJ9ECipBMwbg+Hej1h9B23Pah2Tu9AoC6 D9WIG chWuBKdR46XfXcvZgRJC9UU0XILQsnrcS4/kBiQM7l7DR16/W52AqsR/j+FjWOf6aYsVymw+JG/f0Mdy XMrR/ 89JgdSJ2y79TJdbiSgTxbt+dhdkVY2bajbUY/AP4Crn/UeljATUlFiTexoJ6HIvwRHhNjJEkrC+J859H HZZID gqRJnLRwTnNo4jiltsbQl1Bu8xOq2Db0xhu+QsYHlpHM0YrIha3jW+DZBn6/ESzPIaI24VF/KQFEyW6X TPIWX Sc4YR6iXWZcIpGZLbar8uTabuejMtzEHr5OzARKOehEv3YrqBloGXwxNNdnU7UwK/mkTS85+2kE3kF/c U8moj CZKU2hSkU4MXCPC/Q5JFL2MGfNYwWJiYOuiSvZ0KA3Ae4IGhSk+R6Mh28Hs4rETlvSVrmVuDW02vFY2E WymEo xCGqakAf+htVUUY+PN9AFg2uLdQmZrnVg9gkBeK+8rMW pubRpme137XQm/VaU/m8Snu2qZpgNtZfn19rGFUrpKuCYMGmKc1eSJgQ/g8CoxGWltHCLsCHCavOq3j2 h7HRB CrmZXsMswMPwuOEeMbO9vVOEsKXC2WJKTQ327EiG7YK+WDc6vnYr0aIoz4YprkXqiof6XYjgQ/NpLEuk W3F35 1HpqEEOHy0x1QFAQCFFPd0zu/U+jUbvX1KPyJEe3JNedfeq7FISv8r/Cvre+8Xue79YVLRhX4ySaPGIO XQaXv 0Knrtp+8Yy4zzLdGqjJQ9tScjYfCvpN8ozDt4wtPe7wR5hGPEfx8PDNeE/1uEMw+YCpYxq05Z6XrnQyx 0QziA vRYlb0Ss0ouy4CXSIj1ChoMCsJ8pUqKkvqcp1OvtBfHfRSSR7Xouzz0jQq/oHXUc/hl/cPbLCTNo08Gv 6lq6h SdJ3TyGeTDhpoQC9E/q3bT+GXI0cX9qcQDZnzMm0Gw6gIBkriQlQGQ0TkWJTtQi6axn57kkAHOev5Zwz 05DEI D3PwPcEH+HsU9i3Ls85UG9/5IY3bBoVrDwwdQO7r2T13V87/zLKLFLZfudTAK6EOOszLizD5gCKR147j 7Qced ZpnKqQ3XEPr2ZurxxFfWz9vdb40MODDboTiREZ1qXyh9Q4Lgdsxwkbo1jqtmm7CaSz85D4UOw1qdlYsI FiQxF tLI+mQMZ97/1P9/g/3cv/5tr/rgxCtNvxjZ3x2SKwoL2KY9GJuAeIePyWBVv8YZtTyMTVGVdWzS9sa3W utG/m tC2LT4mpD/uqX0pU7nW6rkWvcqeVrr6apcFqon9sVIp3wsEdCXHAdvsBiCrzECrdJLnZVtO0dToqquzW 2j5P4 mk53UA/I6jKx6QP+L7RqISvisR0k3XkQ4Yr7sN/MG2U9L95DAScJd2OQHpv27MZtisQZFEIQJpp/ZDf2 +W9PA MTSSVamx+wZ0/crx8e1rpVd66WszBmEdvxMTaTOqTC0RJHIMcFWKuCKPwZUpV/YNT/VrCmFam1rIhCBp 4lp2g 3wCF0PaYunVeJye5Ihkp6wqHvwV8/dbRCCUJE3cVwiY8cyU3/kz+YVqOJCuHIM1v6d5KNgK0aBLh0u02 Ixjmf AACLY5ztolR3L04b/n1BMM3Ai+gjv0Tv/CemtzBCvhvRitX/BKd2FbUvHFwPYejV0p3MHxnHqOhaKYM8 +m8gr wkYqlmWJR22LaH5uK1hReDk1lTtmDqSd4+Y9VqKudH7/sl1VMi3m8VAycO/gub2PQcjoN4E7XF2RC+p/ nqogW VeMA7xOfWyG5o92Kr5nOxAq6GrIKoL7vsXjpZg7dYzAW+R1/Oa70V72plTKsSDhMzS6S9RVpUSKmTz9A bfYuk BlgeQSwdJoJNqxHKNCbfdq7k33UdAsKaiESlDWy2fXts9c+0c7ORIcnHYR/QVd+UDchFTk/XiD89ZwmY WB/f8 PWmcGHMrgwW07WUj2NsxkM3fCEqEsvmX2kV0dH6mcDbO3ET1qqUXGlrRNRFH3YnhixvWCde00WOgwh9x glLIt zl5VMS5vS6aH+kf8SRc5hj9ycRzN+KSo+FZuFdLlTiPjrcstYwXyMqJq4p09kSkGi/1F8pFkwdwCgBI3 ToukX QT/YEzSlkjiRAmzXzGfMfKxw67PFTMwefyjavYKf3/MjRiEjhJS415KZYDaVko86pwoblsiaUj9vTcQz fo5T+ FH63nNvtIikVXkeG28h0v9mAUsH3KWikHk84hKCM2PjF88gCM6YYsIR003gQz/Is3Q2yQfkomKz9CvZo KnlNE uRtK+rS2T9JR9mOZqW6cnO5nugfn87rQbfnpgGj2DHtGf7yCjBA65JNbd602TsQTXQ1i8Uke93/8G+EQ Shakir/Y GL4uClB/Pop70s7o1tseoBdNKlTE673d2Q6Pcm9/YTCnVIg4cxb3064rsblwb/89/vX+xyPig4Ud1NfP 629QU 7D8X726L1Y+sGi95PXrYApQQsoDqneAPkMbxWwHGNCMxMagFvfE74XDVk2tk8wLrdKurG7eZHkcpedHn ZV0Ag pJaf0ALsVK7yDoPIqT+PQ8QfJoqt13o0gOmZIrV0SHFqKd7/ICOdXAgzmKm8hKrhWr5YXM6u1SnsvO7f PWn+1 FoP61oT4WIm3iRQDj2ISOdg361vuU5fshZ/Eqass5TE1iP6HUg190hpu+5yF3kbCA5A/bV+H0puwQxfq iI+Ij 4b9oxgHm7a8ce6LP3EDZKaM0ZcS2so51glNx8zB83jpcvvcuEpCY01htQ65AvsNJn01obo+7axxbnfuc O51fu kvd53gAJpRa8xcZb9m3btFHQziscixo6wQbTR/Y+mkxd5uRtd4nhC8841ib6ewiO1i5OX8x2+fGsMqCr jPuXQ aaYfpWVmmdD1aXtNMGdNewU/Du8YEKVa7T7jDrrQc1QTxdqBP0JJaVKFRm3l4qhutVOakJTZ68Mqx1ry draVB RqVo45u7RH+3fpX19zh71bkh4QidLdpvafG1dUhGOrVrSm5PL34yX+aZtUIGiRxLS8wo6z1ZCmJHj8B6 ZPsPH Udf0cT0n8CuhJVKFyNVTXOScNnn9QoZ0rfzRvJW0LeSiBWcUez9+Vffykl3jrC559Uo8gM6FgGASOdm/ ESanA p5sN6ePY6HpDMwhZEu1DP0OF2WyxH4nisl5Wt3Q75CFFkuWv/NwDzB5UWZ2uym53rbg7m96836r+7c2+ feOvf xdYYi3bf94kdPs681bhBa93n+k4+zgGgvz9Gcbs4dhdr0PNiv5+Tik7N+hUaC3UymB9t03V6swo2+dm7 JiTUn rr6jsdtl06pP2xqOk48OXo19eLHlsX/8Ym12ikZw43AwD5mJUCmqeuXjNb/F4gz4pwevsaNs0C5Ybf86 /uiZo 2w0cHAsJy926Q4sT8J35+pkT4fnGV2zsEMX8SXs9QbyQk3/pHJ3he6gH2zvtjrQkFKqYW2ZnwAksXqac kcvc5 0yBcHC0jBXnBTt+LAOQGE81P54hyOjvtajzJJe6oP03IGjrwvNnqUJnP/8Dx/U26nO9yZSsXBsup1/HP c5J9U XwbPP/qf+Troy+jkc5tjvmx+wQrbnZpfN3ZIXaq0HfNYL6HP/UWsVGqmR4kHuKfSN+Z0VgCDbB3z6SYxX S/IZx 3tXrgGpa9/4VY/d4yC52TCSL4vIBpz8tLJfmVl6azIQdiTp9XWjX9ckUadlv/nkLQO8hh0epIDsTfnTe /jXa8 2IC3z4I+76CcuZLsMh3lD+1J47uPBeaWjG/fLzk8v4cb2uy87cWUaR8BQ3NMzopYwIFYSkEjSeRdSZFW RtZTp 4sWRRHUh7TrroFwjOdhWJHMMK8UiC7UVD3tCrcXKRYZ2vebrJIOWki6DSwLyoISuL0xBWX6f9mIyZYBm ROb5N 29Z2YBz9ihRpdBC3gAdTVXEVccEjwOO9xWcCRLURL2DrY5GrhDBSU/EDC0X++W7StcsyFsHhe0hzePPh ihd0k goxmYFHWkDWIa9lgEhfjeBzLCBy+QU7v7uoRBC5H/zBE9y7Y3STla7eAtXFyvpR5vWW8uBRh+nsOXG2s 4jlIv zdjRBPgnIDfCK8mpprVqiCn0AE1p+1he9k+3xJ8zE8M7yAM0AetO7lYymD+I5AeVbkQX1aJ6JD1rm5a6 7DD7A k3yq9KlwNz9IU5sQ8SkrJA8KP5oW4vN0TV4Ba2l40m4+wn+ka1xI9nk9hEIu1+Yb+yS+k84vu2vI7pF6 hV9if 7i/5RmfDu4OYbDU4RO2OVJInkPIVI3nPdaq8FV/6Hd01WiCHkNem6IRe3X4LRxRuFWbuOCboPdSJmxUU fCxO0 xm4YEmZrNVDAZQRuZEVNuVrzNwoV0nHmEEKmjh6yN/UUq8iMOrYwkBa+Y0pGv7HenppKRfic4QA6Mv5P xvVBW 1no5XF2XmESfyOySdFrSBcjeq4tTOERBK5Rd5KkZH9SpohB3X/YRtMQtW37v+bH0jwPRHH58ahHf3zSk t9Uv6 suq66o/gSTzUDwuFDJBE4AZGMILhVTrg14J5kW1LkcAeHQryF4BxmimaLFaB28Y3fo6VN+YIIXi0U9lv 7hQ+E j4WNhv/GOg7JooRgXmG+GL7JuZz0negRe5KRtHShfKYE6KomTppxwxeflQFBqv/T90T0jLNqjvW2cB19 IJ4Uf gDTYh5n7mEhZEdCIZG6ae1GYwwCjn4Rtaxo9Tmiu+a5yh/H10ueUjDJA2uhCG3IA4WjaPwsKZsYeBD3X F4V64 RfhV+IS7Sbpk6BHdOC2SDmQ/hT+Qs9NjisQtSsFf9Be+EUQiUhZrHKncpfyA+Gu1Z3dNiO+5YeqgapBq sGqIa ne3VjSu5N7XEhtp5/BYJIGKLTppQVjl0mhY+epfxJkeN1qC9aU2AxfF/MO02UoXBISrp0HS3D/qv4Ci3 QSo5l LiKmPYQRzmVwhVzGW+Qtx+ZCmWthZFYu6CzoZjjUxTHVVwlNDGSRNvWSOXJMsaYqIYUzzXBao1AzpHkw 4NZK2 ANATmaTAZmKT5jxfkBz9L4pvYWB1WFWTHQmYLnBljBJRp8hwVNUm2VU0mnoiplgZeP+nbpx1ppvjtwYD VcNUw 5TJCJWj9fZ1wioJleGGIgTxzAyzxPi7HUuIriX+iDnu1nlVy+fSB+k8+cU8oY8d7rhh4gHnJkPi3mBse jhZnC JYXi9X8oShroOUWcI07wscjuGDzXa1jqiqFVTZhZ34vRyu+Ua7SjNbMcMqu1VfgWplS9JWroucVoDN6D kpS3x aXC4+Lw3hFvf+P33XU5AO0YW1KCyJrXM6cM1WtmiWrisEQeDKn3H8EZ7QZpXnMW1iY5kb5ZQhfaSEuT5 4prhW kQe9B4gsxkSB8zAXBy+m68xl5ifUM04Xk1sacA07y65SJ4kssY0tAnOrLSraD6wV66h5vNsM43Hb7t9r A3G3u EfcK+5T/A5H61Raw/iJ+Qp1fSsZ/Atap8erEQPmK8DouETz1+Xj0IgccQeD/Mb6CcyaEwUk3Zsq5+Jx8 YR4Uv xBPCX+DQ0Vs5lzaHGjvKWMnmG9y7sKwK28QZQK9tDlZAiSz1NFYe46k/mbpUr7QxytgVvpJj9Ve5e/in +Jf4v UEDSQVEVqNXTHR0JjYanoBhjmCnoCpmpWGuKPykrrMONhGWJXfY8MJzwtbH+eT8DO5ubybNMQJjmeO6+ LN8QG oDM3Y6FLTTBQMJPMSStTNgWDGNpGwbZAoLTPpSCIPzLUcGCpMQmDCZBQfNPYMwPb9YQ3ej0Kl1OO5ydt 03Q5f YY+w0ecv1Rv9Kg3Fp7UljUQ3dF8qSLrRAS6e2jUoqqZAoPS13lizxZdvG/QOpVcwmnQHlZpSe9VlP09H 7FG8a KwwrAyykwZjJp9KAbKMxQAIO4im4VFPeUbqjDVUsf2aIAmX3Ad4k6uSSCZbYhO7qgtuKsF6hOe4q6QPI qtilr PBxB1ycbUTKu1EB6ydtj8SS1V1SysQarW0UZ0sNaN1xRkw+KHjuzLa0LUMRQATBAUEDqrJj8GkdCopIu 2qopg VmC1Q7bj3DKHCteI+pOzbCPbxDbDH+Tf82V5jeaqwg7qr8yAF8x41o5myl2e10c8j/ff5od9JHAzoPWM qad0n /DgnUn7Pv7dNROyD3T1CrPyuWcZjmSo1EFVGh2p85QYLFDsNzzskGZOboBoZBBNEzGOWCvENhWOUY8rD N0tTZ ZaICbEF2iiZNVbspIdKZOaXeFO4U7vHzvmAG9aMqnudQjdRMgQDkHQRBZIofxIpZY0q/Ohw4ESSzP+wk h+l3R B+ss5DDZf2cyDufxAppviAVSP1ESVCOTk3jMugBrm++knGD9+ccJ466BSX+Af4Mm2QE4uEpWScSXrL/z AI6UI rf+ThhHJHhFXfWDFBcQqUT9Czyi4OvPSnkViIhEIJedNKq6QnCmBa4ykq6KR20dox8jEpHeIlV/r6dAx r1Pnf G+GkvZp7c1vayoj4tj7r95zyn11Vkn1yKIRzjVpf8ZPpZwjNxa1rCc5Tba74PWkg+Valeria+4zMHnlyOn07 Dtt+o z7Zt7/wKzZc+Y+OO+hhx+Dh0OcisXIhk303BExu9627kiagc/n8DZUmyejppIj2ssTZ4n4dtrfHPYuCr TTde+ t737u7lom33muapi6z5kedmw84ede4742+j136XS0p5a45QEU107PU840+BToar0Lu48wUml12OSqlZn rnNoa b0qRpZ8LldfgkTVpp7xdCxo8ncosfJfnhTcsc4tZty2/a1itknUNk5MRVyTkNK1+aPO3z8eA20qgu2DB T2777 WsJvVtxuG3XC5dNhORSDv3HP4mtYnRS54Pens9QxZFUjVBoek7ZbHgwSNWDWTrDTsastsDjjdnrUR8E1 ejePZ JkC2KiyppGFMM+X3G1ukZFw6Ogl4Hi5sQRDvu+j4q27RQg2BZzjTeVn7ceN7wJaVgWNIScSnThHBRzSC KU23z 8hxyCXGZs5wmWE+n2IDUxYb7wvvdJvh3Q16Ih+ORDQHN031ICvtRbjNj1CVF1aYYzGIMdY9Nv6kTZ9Rr IBRpV 3GEDBZUGV+WLcRQV+1JpCWpDKpBrZvezN7dneNri2z2wA79lmxGYnni58Pqlxe9vLfgUU+MZYYtV7kEc E/jtw WKglkCrx6aW5fX1KrpwzSgrfvYSoNhcMc+T2n5USxHCoPnfvnxJxzxKjfq7hI7hb4mCC7v3cLWiJHmku n5lLV kbHU6yulbnSXM0hIvwTJ+6sSGGcUHW0xkknbE9oMBEBp2KhdfTEpnLIKAB003XAaZx0Ip290SDbHE7f/ lPQky xbfHAMofdlx/rTH9YXOqCLXs025po1whXruJjSTKFUd/k5uUagfYKntfEGDAdQzqv6ndZr74wTlnnvoN HioHP JpuUBqis1P8p1jfRYutdwSnx7OQXcTZsOO3CXB4APZQZ72LR6/E+0YlB6+I/PCaDXvfx4qroDqliaTo+ AF7kw fYtKNsoDAd55x5pCY1MygAuXEdmP/r8KqHiIm036DSDD6MEaw7Jy7KGlLx88Qhygck3Vu4TneKX24j+Z YFzG9 qFGeTzFEv5c6iiho5TRNDAwFkqpuhw3JVJQW2W3lPmEO/R5mat9UWGW4/v4COR/44ymGW2lzKQIz2Ehq mKF1c Dhfam7P8dubna3hXprBidHWFmzhKJM6iwhpO4zVdwIljF9PbD/RVMtdp1MsyCPPFqdE1pV5jDSSFTm+3 2/+Wg Xs7dLqx+3BwWXKavg/kA4522rQ+psTJFMMghkPgzvASVX8meykDR1eBjpAkzKNDdIZcwOCeiYKA4V1p6 k3wiO ctcGZimK0Pz63ZyW1N2AHbYZ3/O/bX9/zSL4l+zyHNw++KCfNzH7b4+MKdPK+cap0+Sy/cN0wFX7/y6P NWNwM ojK7vF0TSXqyKFEpNZNVixw//4NXwKmS+B+UPlqcLkS+nqo7V4G4SurUVj/NS0Tj6taBO9xJLMP9cBaE iuR8f IZSpACZ6DXI90ceitOnPu6T/s3qrGy5287w+l6ryvokcknES5fod8kKSMCf0QmlhLVQoSYu3gvbDanja 2dXNV 0QbgNumS7nhRnGpGw+KGlq/UqQot2WpBhfweBZ/nVzC2e2WqP0toRY5lUVQpN13bTh6xdSWR95Fwf13v r9T9H 24zcZoRos3MIrlf/bY7IcqH46+tbP5qVeDTf32nYox5fZa3TobtY2naTdttd5igd1IaHN5MzaRocoxLL zWZjF r/4bAbqk0Y6m5bviEAoS1cSQptvZV6DbcDllDJt1tqZKdET6yTQXXAAELKjqRQ64b54nAct0JR2/JKfm LjJ9C F5HbOMLjN+0in1vRQoSiJhHD+M9XGEO4LPjGKUGLXE0S5iPGs9kR7ZEGWMZQ2u0jYAErW4O9N7Y7X8eL hi463 cMsDD1RqABc0vSAPPUhbmACYM82XeRg3zIvF1ZtcOjyw+WqzKAh3lTejGRHiYpJWole0CVOU9gKjK1Lx l43dK FFrxJoM3Zsi/KqmPFVvLQLqux5B8fLsE4iN63HzltO3t336BYLqDo9I6wU3i6i5vHtIahXiik4l192ub 10tyf UzFQEILtpNHdk95vZbG2h3Idlpqe4O2HJT82LPmM7SxKzCsDiiDmpKASmWrJ6aQZJUiHFVlSABTqfCCM RJSBT GDVT7FR2HOTEBg4wdedYAHE470Psgelx7vNCIIXPA9cBQQn1pfXTnQfVRXOJg6MxZs9JriR93vdwlKGU AaXQ2 fTWhdXTiw6PbXJRe0nSnLTXFzbKtm/tis9aiBkxS71KZsTHn9F3h9djRFSAzAr4erECrZhjPGB/yJOvu 0knWn dyDfQ9kf2ed5NXYDiLZfmVH9NPNDnYUQatH1f6kvLIJpGRygNlzqj4jsaGqBL/LMZ3SSUdIJon+GKV5d JRm4C jNgFGa/yI6ckO8yULGS9bB4hqZAd1aqs7KNCwNGYpTGBrAWJsYTNySAI59bPmIvAK7i4tEDA1s2/Fybi VlNRq VgjgnNh4ixK8ci6GwsMgdv/zihaYOZbWhxS0y3m63vy4CY8iur2cFaIueovrs0oCrlUNnap7KVAvCodX ++l2q VF7Je4f2UezfF4WVG6PWMoN5h3H1H8I1H7W3zrCvxfc7YfytRpDWbMExemQzJgGQoEJkTYQAxdmJ3j/p dfOXQ 5zXxk2YUb0PuzvrKEjbnenzVEAYrfLUR64pxzRQqTtk0wlybTlDb9LRj7wu5orNapTbM/XEGuTRZT666 l61Sn 9/Z333h07bBSd7sYCYqvMSPcvtoc6vbuP+TwSKAAwZ62QhVv61FOVkX0zs1wMtdMjSv1r0dKV3dog2I9 lVMHf f/JjcLT+9Su/mxFYXmkjjuejpvI15Cvy3Pz4hJ318tkbeXfgelIWYbN8Pqdx3GArTt1Oo9XVJ7jblw7E 6bWV1 K9B9a0Y7P7F7igA07NkJ0mj262Fg98hckU+DF/zm8l6+0wNsw/G+tuBBcLImCVmaXI72kTbJapL27ymb ReXlv BSw8Z48BQRmbOQ/kMtX4f1hVDO5QX+mQQ0NUfAku7bQIQT9iu/6S0PZrR9JRbL2iyX+5mA/zkbkU7a4g GiD3S 74tXQtnahFSvJnzbE12Pb6QV3Tl1sKwml1rw5g/0WfhP+rM6vnO9Oq/m8+dND69HQNiYRPOUxuI/kYqZ vUWZY qLCdh32Z2ohO0NFCUsXwo+glxFEB+sgzluuGxodUvOzvBZFx1R9ueehk3UbgejDibAinAEbfrCcblPkC F3hTG i5cvc2c7J3maseKl6JHNzj7h94V9AH0tAhoFubyynzeBeWPvgDTacWx3EGXBK/Ue/MP0Np4OmueQW+1i lUDuK WrgLOZy9iBWq0sOal4kAY6VXIdCMFuX6lbw42UW9Ef/kAKf/ciYux6fxGOfVUpCf/K3N9aKbAVs6vMmZ QKWv4 ZtkDIHdNFTBDkJ7Cguv2gpQSfuEGWqXYhq/2/wGsmCYfAlSQIPL/offFdhCqIT3McQTeDFf/9hIu4rui cFO4R NRliZ6xXHITSNNj8SW8tQt/SOHnBwHDzyn4tzk0W/cP6QGQRXQjX0htPbjTq0AOjSIDRX/EBTZ8dgMqg BJ/A5 5AE1KTiHpJEznLSK3UcqG+dWhxa2p2XPDlNxXDppOKmjT6nH9N/OqjIfA3EhdqiHN9LyxDV52KfYhhv/ b1TnG Ly7/rAINsEB+IZkklziIffRLnQy/CDBHheKXR9COQGYhAQu131oJOZbmIL3lKDRLCE/W4LN8cVD2wNcV Fsn2I DjxcBxoFOnnV41juZ2/1L/W/3i3WZVw4JBjXhhpplkocgBxbeuMURcG6MkuHw7dtYDIw3UsYdRKi0Fdw V2y98 InTCdfVNlEiAx8GzjPSDkk/Chv5t/hA328IIMdBMHWsYaQzUoCN76bQ9mouYkSntGATrzv8/GRbykmPQ kQ8kU EaC9tiINqW6lNTe71UO5RaKUt9CROv/ym/y5/dE8Kbb5I3v5qDpe8N+dKnobiX3mQhsYdrsRVwBM0g8e lRiM8 qf3x3Hs0NKIpw1LmDO2uZNoftro/EVoTutagAQzqrGVVKOQPnSgWlVxEODfyPuiNf7VV1bRw7TNkTVJp Zc8Sw 6Tk+TZ6ngIwIaMjSBOpC4+FC6s48is4JC7gK4YU6o8McwI0g/xezKeui0E62rlftOpjTUX8dqexybqtA ged/h T+CsM0Wt3FenddLXTlux1+sOSkoRQsMfgKQZL5iZOdmYwA++RP1zz6T/YntdUenOcv1T8LT1Sj8m1nQY P0r9Z MuvIOuGdrmIfsq/Bw0BP1TGIPFWOYADY7Z7hkSjoBshSHwjsOB95jUwj42bM+CKu1um/Vqsb48wuBBBa kScdY BVT3Isg6NX8eiaGi88v40qoMc5Gy2zXCFFMY7+TTdPt3zjAuLRfdXBMsVLOUiTLdFcS95EbX1kR5xWS5 AvyHT bX9Jkx4YdzqRQ6eIaFwO6wUn8LuTphArscXJbZxiO63ShjWB/R1fQV+hrdTHfQz+hS6HomV2yeVDKvF7 EI5mR rvT3OELbwL+pOprDwQLFMOWinCEJRtX2bK1LfBCcQSjrktPTu5Wq5UX8J71wYDCxWFSmD8DhtQQ86Baj JpCko w8TwZzsXoI4U3bEr5tSmTBJ+c7I2GclNc1wPjsbapMBmfEucrmF7aedKuffbiSAAWPy8+PZNm2Wzhle1 4yNSB wW4i4+zQ/QEOc+/zThMAWte3AtrMXiRTLx1lO60+h3BJSX5mG+N8STlFAfrXJc8dbonawmpAab+ZnI/T KUj4G RlWn7PnzSrqQrGz8XcqipmAu0xRoU7qjGgI4Fs6JcLJAQOSaHGD/5in3Z82Ffz91OducfFh1yblUB8fn xiX/8 1wIMi7FalD2QC994WcPsX4ecYh/F+tFje5S8x1Oru9Iq+M6bAXknFHqS4JKZT4FFqziE2ZLtSC/Q0eQ4 8wrnr 31/fw+C8phUxvHNoxmEKXW//RKrF5QgxXXpJitw1DfsFsz4B54ZEVFdY1gdI3PNGJnVIgd3+IeNRN/Ro Xfh3Q aYtzf6CwLr1JAGFteqLB61Xi3cZK2JbrF68kSHXEx4Mjk++xT7Jkgk5g4U2OriYyER3TeKy9GhL5/on0 w/gl8 an6BJ6+LaeX8BFzM6Ipa6eqIK3T6p9Daty/LJIFz9IA3QF/jDq4VA7vgO1PRGNKbjuvQgyZHjHAABAlE xgUEi S/g1THerKI1aBqoO35h7SOp4AJVWzOPQRFio7dUH/gOakpQE5PJShIXwMuXmGAjs/p+hzPnA6P7K6B8R 1dIDi 6l8VASKEoQpIsG9Q4jTc7IyY+mtY7tMThyaUgPMamI7yzUwu8uLB0gVnsCTnaTJqpFEjwBLgrRTjwYPr pVZqp NTdgEUraZFbrQXptSGdyOSdgFFqgBWvoXXkpNLugKTyoLpE0p5sAxel1x+1QZEu4x89j21wZimZYSded cPLfz RVSrkTHv7vVnECsA2XFO20eFEBD3BUQBa6FRulrBtKnTheeANSe7KCERI8FSpkv+NnCs4ntCqlAllHrn izJQ2 UwJPr9dqWY3ZVromw0HQIWhqUUi58rb+g9UKW2kHwOrFsYyh5KbS3jm0saSZ7Nq8A9pH2Y78Tom9AUr6 DvvtK InlowlOwebbOg5suxEy3bRsO2m3Hv+l/KrRLJ+L4ETgGjRVTCUJPZosdqH+ommVEDaPxPCwxD6Sat/eT nYXtU zWjG0I9ICuzxJCXD6omqOJe4ag7yOjS9T61ReWBOy540X+lyTej7ThNaVvxqgSopuBY1VzyuRHWPq7yG mKwmn /3nVrD8vP/KldqNUYr/9V1JiHeu7sGtYJMwdgkJNJJsjXmhGRSOtwiWSj5p/SG+i9cPA7r4fmh0VJNd6 vHhVc TTxqxe85pknoDHwpplBRhFefCtEBsh2VRXJvuIJDP6ibOM92JEOwdIvvCQPMzCTo2BSHyr6B7D5f3eP7 5OKfS 5f5TSXJnmAu0E5XLJRZxj8utHy5JMFV1IhVAIhzcgET9CHGsWGsYwgwgpXOHeKZVaadJfiWQUp6mXCrn QVhbd 4DHRBFcKAkyW/irCphbLEj4HB4N52TqNGKxA8nVG9uNUMcg+FHDf/PjJGXqqvNAIFDwamZdDrpC2dujR 9tGmw JkEgy5uNoDiBPuDLkImH5sFnSLEd4xRTjfh4Gm4yUhUo6okXfJ7WysbLwDXGubfWt9j5g1AGaIZmh09b 1xsTG 310Oiy9PlcXp6bmsSI4XXk66eZcuV0RkDgsZWkTPYJJvtodPzKoUndmoW4OwgLgefr/Kq0elswZBAtvx OiaZx baodccpn7Ge2lrGYdaNor/dcDs9TuouuHaQS2HxmnOvXjis496tt2gM0jea/a2O0Nl+/qt1LeAK1ApcP Rjfy8 kPxhzHkO17fahzJxKHjU4+JEC11H13EQs4lJJahWebe3+K9YNZe/z5tYjbDJB5us9dewuZZGpkRzXM+a q3/iD cGAozQnFHW1XqIvOFHzVMS5KY2IVb+QYcZrfX/1uXwLvHJzUPsaSO7Wy//p/j0GhBkgk3fLiII1noX7R H/aGD CUfrpMYl5akRu1+7VV7CV1PNv5kKUL9MEH8Tle8KUbl3lD8gz+QKP1FzLq3pzGZXBI9ow2gga86t9oTW FdFTD iyipF/gasVUwSEGCfsoVNM2LK7bPoWfMHqgZ9UxA1py2X+PJ60UT1CY/4I+4hqyrBRonpESkRWZDfkR+ ZFaXr ePYXIysViexStAimcb1L10oZyVrX0V5qpcnRXWx6+KCFakKnopeJaooMtqrXNSN73fPKq9EbTlcReteq M5LYp 6PeztuW/Xxg3emhe6JWd21EV3dnIuwTJUKfGefYfQb95osBvjLovSTgQUBRkDkstgQ0CWdwTpub39qW/ RAuC0 2Pvm6kBs5Qzij/EFvw9e2V0VD6uUHZTtO+ES6Cw7OgeKYUIJbb/wO9mLwp1UzU1+fV5/qcYlfIK445JJ xmUwm FeB2k/CMpk4U3U7f6VqOoiKreZGOOpMinHgPeFmo4ZI7MmiuO7f+sO0pKRnPLKeCACmnZrTocXvUgkTp qqzqk TbEkxhuVX+lJkVCdCGFfO2mRIB90HTZX/JNIrHc9dizv+NfFawdLTEGjUr/S1jCtfkZ9686l52lB48zZ uTJtL AwAt9iZhLSHEHKv9fEgG4+cf899N01OIZY5yrURh2ztk+EpdLi5lrDeDWjubfQq/RaVoYPxDGN4g9S9L iTmC0 SA818pHvT5CdDCzwuDJaYhuly40nopytVaeqcunkmGuVd6ldfz53z70sHI1J+V00HkaohtLWRE9pU0g1 Js5Pm q+wi49BcsL5Hgjb5SMwTyfNhrn7H1n6twUSWYGmQnxMtXBfzl1Ln0j6VZRhQ58Edi7NwJ4YgexrUAxak uJMI6 AhASoaqIxTbKGkC6XqXmmvJ1IEFDsQRqu1MHaDEKPm49au3EJrk0hmF2b14WF6Fftp5o/0Ru3zqzOgfp eDHrZ OqoQZeU9C1U55/YgNPo0y1u89z9XlZch/34bDkwf8mwR1qN30tt2+0USJhYLdTDF6PbJ5MWmKmAmJHIt qNk4P aWm7kiP3pyXfxgJSzCWptEppRSdbdlH/fIctpnpyMr8Qh22t1tbdYXkpcTAkHEQAoEQsBGwdpF4YETSy v6R0Z oz9Hl1A4I59ODj3s9l24GbI+ehf/azvQ3I2U9YsqrKDpXC+waUjKSoKMg1E7x2rvAs7XNM2FZNjh38xg MCUkG Mc1cTzG+8J101hsVSVNuHqnXNcztPyDjd3J0Zlbqt7N6X5LUcu5MZ2q/jBa73i9hoLY79MW4p0GadVNO c5583 drqw5ySASsWiyh/OsnadRUiR4wydfgJHhxuaBY+JGq2MhdC3I+mZbEYqiS4ykd3qkmALAzlfTQ5z6+yh GPokj FAE64GDdmpzu05NAI6vnKYuyKdz3uzgulkPtJK5AocsYNVJLaoTCPy2HEi4GzX8lqVk89hpz/Pompa/Ti/r oosIo fRSOVp/eOv4IBNjk5ONtBcqjIvpL3IN4QDNahDKxcjpsLaF0pkmfZreE3Ngmk5+Purdi8KtDnoOXxaUQ FEHus rgkNvkqE/ot/wp0SLEDL2n1rj1sYKhB9tx33w3OwPAM8onJ6fT2bNkYhIgdv6zMuJ/NvbW3MwwiZqygs +IMVn fccNXIYcclFyWK5lkoxrvcsGxIzfze4kKPFmheN96Z0uswIDFtrZXnMPc0/2kHLcXHUI6WiCVkKeP9Dj 29ySY n0kSMOCBq6ApqmyfUQJ0TKWzsjT6ZtAWWHyUJVZ2DVDyItfPT5Hx+H5vXVyQCm8aJYKRh9RZzWTVFZXg kkcJr 5HQzHyyNMsiWEarjUq0AlQ3wHitgqaxKT+KGMu5lBMSHOJXF6D0owfMkYiYyYLpWgSqgTVY7wlfa1zNS 5utCq aGKbNfXtNBapcP1D0JIrysstKnAl6pzKLf1xfGTMyRk18nkLmZHXG8whXWyqZpPl6DzIAiaPUTTyxi3s QHTgj wzd2Wi6S6ybvv9ws52Rp8ebTxmj90SJiIyzwKUGkhzABU0xszugKLJ7vX2CkB26UPLamjqed+v9ybd42 Mfy8b mDM+FzjciSd+Wy8ekaNVz8P6Lh4BRimSd2FoIP/bCkNC9LGoyhnv7hXQXRwsb8NBlyheJMAT42P2qTuD 30Xul kfKnr38o3qQ/Js9PaB70yAg07NqG13FovClO1be8KckXkQ1kbRG+FSTEfVBeyUf9ZnZjgGQhjKBjgjsr QmsbM je/XAbg7qFzNFcdgBGVXNpDAJQExwAb0sY/mNSuemcllTm7ezdh+fNmtHLPE7X3yLqHJllufsyrOUYxW PuV+Z qHYOvtbuFcJno383rFGVnMlIvCBA+d7JDf4NQ61oyD7OG9+g1hc9ZDady0sfIgl0p0t9fTZqjSHRKGM3 TOXAN nuiHCSIXEjAQDt+AuOeXLLFTQvjXtfa4vsnuY0l8nQ438n1H62h04VFvydLIT/ngPs7MUw4u7anwbc8L xZwM3 bo4a3Fspc1c8cfrg69gzh4p4Id9eHjUL9U5joC3HGjky6+b+3OiZRhjBRmhOeeB25gth1Sq8gUvZhWiv pEni9 LRnYLm+UcSX7BTl+/X7rJ+mHk/CV5OlTpVVDJCK1HzVAhtqNF58TAFeWPVeqZFCO9pi8PdrsaRO8ynn3 DbB7U fUBBNcyXfUSYkTcMIeIHoMEPkMg5sjIxwC6yotHSpbGkmheOVrNAiJslQpexSjjkcKlBwvhIkCgqctbZ 7iQeL WtVDNjdhRVlEjag/p0YWG4cz9m1YnlHu2ZalVxt3nyo7xAdpjRBABTbtg79ySahgxxHwDcmDi2o2jCGV P7nqo I76jpAoJNHabxefwtcjk4iOxkB/s/azMyLVvd3yugnp2w58PCXzlPV+7dhpHCGS3E+6V0W2dD02gJzYy jLFje I683CVVqn6/+465z5DE8RjE/UYDD03lILq+1GHA6CLfXguZ69F6XGD4mP+bcpgH8owBldNeWz4jEFDUy 3ufCu 9axRH7VmqRovFIWL5xkwm6gAtXjmeVOjnjUWC/3DXTt4o9HIuoc4Manj7mj4GrKpyGT0yZh0ENTp0tZu BWkjL YSz2sQs5srukoCHfKqVwyT6nexY0ur2e+2yko76Ntdd+vePn41eyayAxc1oK01C5cSn63I/zYY59Dic7 5xkqp iZBGi98xOxtETfj0MRxdT9vB1nxzuCi9ptLPKallOr38oV/sH7GkNneukPf790VE8wDMoZ2awRNuIIyA HO7k5 XBJ1gtVh1XhED3f0hTrkAfzTXY1QIcn5Ek/G4zhbhO4dxGoDuZgsguhdLt7OPQ803PNApHkyGZ9VI9P9 Hn1KG o0eKTje05R6Hm3VKnavA60l1AmddI1z4b7PqcPPoM9q7UtyTMiVclw1RV6BG2LEMuGjTmSDErOUGIPqq 6AzHG xNXpGkRyZvBCGmIU1te8yiLek/fi6reO1tikoYXC7iC9Cx8qyYsr5oK6kv4oGZkpU0XJb7RCkdXZl73V g/5Wn tzZC3B8LGAzAzJqNtHrAZc9lBJJP3QvHNzj98Fel0Xn9FwqeC40r9twuf14sw9vukpzkE7Galy48NghB u8d/k Apwiub8wrVzwX20kT4dQt/ZJvhKh4VH/DPsTfJu9GHT31zIkkaLaQXxApAP6f44aoCRkq79XK1vRPuq2 6Tu9/ IEJopa6w7rN5bxb2SOviKTG1/gKDFFr7w9xO/Npvzyr3mTd1ko/eX6Dtqw3o+KTjn+xWY72SF1mP5FsL /mM+/ njoK3WCirnW7CqrGd3YCGET4MWOomVbjMIbqMzPbbo4a1vfsagYdUpsEOLlKsxy2uchiJ56MykgG7u2l mN0aP 2eUGF0JrB3iF5iaaDeYD5hct6Xq3vdy11qVLNRqHLFNpUlKNt7ak/4sm7ygfmnl5BMmujgU+5hYT2HEf hJjXc ECmMtwWS4bRORtBOqR695rs2Q76Cp6/+XwKhBpiTpWcrKnkkOKaNUREVQF9X6YvGPHUy+ffzCDOhb3Ee DEqUo oV8BcP6uQgfyr7BxUX4LC5C4XHqcZxeq2GLwkoMlJCoR+tuIwlh3LcWlAmqd/e91+iy3mqDYWTat++Zc iBqfj L31zrZxyxI2Z+zf08vEMc8NZgm16FrdOHbpffWMgF5Zs9/n3ASxeGFIlrnabrpE5dmQ8zWJ85s5jeVTn XNvjB ddb4xE983TlB8Wn0h4tTLaEJD/Vu4FtUQguoPTDh6TV1cZG95ApmOAi+RsjJ99OTNDkR23VPqHEPR6o5 OXE+P BQ6X7/EaaE4GE3rn8lT4y9yv+zS7dZ/H/hWKPwIRLbLxjzGsKeAI3tqe4eRtl7kOMbWgS1dBdNk9ZKqr 8UaMa qbjE4bN+Snt79L+y3hAZk9aRQhWo9dyovwbO7M9McucIxaAjCQWH6ftgfvy4kFOynBr5S71mOtCQLvwe 4TLsH jHCYBLORD2gxbGak7reu0Qviig+Zu62p6GffTWnpjpFjTGh2BJV/PeJV5ZIuZVJlYmBaW18DDCTyrKDb F0Ol0 4s0Z4UcP5OzH8h4JsLNV3Fqp4HBEP16j1/MT2FfygFzr7w5v4KQZ8xlIY2Xc5vPufL3x5OmTRetVHRdL FOT4F K3XZglLV6MPmeYQ+w0XnbBDxGuRLDZYLUBdG6wSxqUGAs0UTtYYJ/rsUk162osad7BL81kMBu9aFrelK x5bPN 4q/2lki3FmiD0JDSXEzyaQM8GhXX/oCDFjfvHrZ4BgNiham5DlNgys0tcX8lOEdKy9xoIVkpP29O0yqa rYXEg AU6jzG0pdxSkH6Me3K4dVBH43r7od2xPkaKkPrzq3v03JpJZ39XQn7yQLrXKoQ0MsSq8Iw6H/QXyhvTI 01UMI EqGTZusuzPJSiZWEn8I107j9wnHsvqVk01nZMzCfy7dp5+ilCg1tgnDbX28piuuIPFDPl3A9m56FafMx M/Kjv PZZkoDsDdUIBgydfk1pJoj58PF7Fyzze0siXCzUhLhBrQTAG4SALldjl4OmvQWjnnKX9NrXpTRWiaM7b ghvRK OjQLcITLmqAcfkmuEEJ7kcaEalSEOUtZaTJ4i4pGEZhTXVJ0ytbCs9d1vTlur8b7uQcgUdbuUQTRZvKu gN93C lcREiXOghrKymflnRbJ8cQOCiCog0/u+brRp/PtqOPwyV+I3vwuGaX6p8tTR9m1Nhn2ieWz42bYT1Ri2 n5qNP pEmsdTtB6k4wSxgtSrqoU14Sb0ioGVjTcpjroJynvQn90HogK507+eKCV41qsfwdV/vZtUWP378rQs04 XDFN9 w45Em85/08BHqsf3anJ+68mXMFZhfhgY9p3EBukrNtUaJsAxuTIRgNtffo85qr2lh0Fx/KqLUJ4m8ziM ftRkn CLiuQYPiR4f8+GD7ctFguZS+q56B0Ze1S3E+83s1emdvi4CWAwPUkhQvB5CIwqKJ/uNcuFmJ/qMVq7in ad9p3 xgoY/7PMrfVVYjrulAmOgtWfWZrgN5IpZPEvaJffNVZOa4UZGhAAqrXOtRK6fHNPdkqtgH22dmKRb9HU I8hNL JdpTblSqOBRGU0Ze9Qqb6XXbM4Tz1jaKOmPxeqJNpWNvzQesi4phg8QmR1g+LspQNCPpS5Tx2YBHIuVO jJnNi Jct/e5xNyNd6tbwmb/7ID28nwiyG7IXpx3LmSH2IqNVO2Ldo63HdVgmgVhqxmch730/pmt8GcD5SMIuT +OZ6j c/GbNi/qPmnlCQF4JCmjf55pNJMZwKJnrV7HeyKjDgTc+qTsxO0tBrHG0XY1P3yuBLS+c/IFMY89Q7g4 mlbWD 0H+KzWtEaEmmoaHYvD2UZ4VuCAFh/xDXIhseaMA8/jBjPddZFlw49JpEsviezfgh0QbPSO3QkDCDtHHY c5Zyj jnf3YtnTxj/WMnNsvn0uYkTlcgnE5676JRM3a/Ji/eah3OAt6J9bhS0fAwn2P3JsdX67orN2VJ+QC+o/ yTXn1 dNwcTklIr5zV5QJov4RlBHJoAEzcpAKv8uQKD8FAcn4gEAgPDmfAxeCRAEwiKHFFXfKLdtLmhMeQYgRr K5ldu 2XGqJuucPIo0cQhYjxqFhprpUxZOS3hbUIGBMvNKG7cBgtxkYYzUKXR7G3E8rGj42hlcEAHWREOKKnT0 zES0q JCJhVkUtEqCY+ylZWULncLYRMjppCqhmUQW6FN7jluzVIiqyMZKstb7U68UYK0iellMLqHFW6F751J2m tGZrh HwSAsycAmheodHlhs/yrEuUiu2qGxW16M3hyjwlcLs/FzfZoWzSEtkDOXAaJu+blaxmpbjXnUycU24zg nEwyO uLYTvMZkme7t9bIMhpPylwId8rG5HQM1ad2UJ8d1t5HF1n+PSwocG0S671Oth6/y7pYWe5+7NVHSPhzH 5Pv0N VYr/uxVhm0xFcqtMf7GfmYabxfbO0HgegIfua4jigUxQXkcbkeP2hJx13jou5JaSLXvB2dGttHo8VKRG 8L4We arXGsIpCPADDtCH0RTuXmgxWihtz7q/Y7G3HIpg2QEvilc8CJ16uObXgPNghNjScuObaRgZC5utuDN7Y vcx9X f0XqlAnZE/pH3mm+z/a6461pd9Rkgv0Rm8QIynhr0LprRXj1qRjXMRTlT7NRVE7N3HyJTezgS6EpaHC9 xLRJT QHkgL3BYHq9LwTNGhl0RVc0RrmaVE2z6zb1Xjs6MFc95lpSDxC6xldWIH0zaQYkjhhJ5o+lxmlEgHBxU 3S0MV So9V/AgZ0x3ZtwjxVec7QBAH5GyH+/FITgctBGzipcTkuv7qnunfDKhLGqel/NH2L/b+rJhEZcS1RJVe H+jTV s+8qK7/pGhWkMuraNFx+rWNY15wU69n6enAxj1Furef5Xl3ymrxhXTcfmdPOBveT9IBF2KCc+yYtZmsV lQ9Yu w10/6ThjPDShM2JyfiKuqm/oS+L9SQuJ7WSDeTYgu8M0UhwVpYIMZ+6OcJ71MDyLN3E0XWAcl9c4Dz8z NzNxZ wuj7VP1d4cfoqc54YB6l8Q9eq12I4T07mWT4cRRe80P2TOejfL6QBLifs9GgBtQKGsxR4kbY4INWFmbc 95kMR z5Cor4mgr1ISSmQkhjBDIq+pgIxhARShQJBFVL0ibDg0d3NYZZKDffwRP9Detgq5PPAlnbB6EMlTuIXV JOLfn DZ9gtGObJjoQwWStsZrXaWY/Rv4HNgQc+B8mkKpGF2/zJzUdukIbbLv2y3S0qK190hwL7v1WmkziiSW5 rFwfv +0+Z6c4FAYOWwyIkDloN9Qo5PSN4L0sxUWNf31/F4El+eYRJBe5aXNmVKMknNlT8BV5a0sRHLS0cMnRe HBx5Q gV/sWgLMWAppXCOSn9HuhGGTiI83FogQcdMVxwi+722UGRsDnbeAx2+aCRnP8tM+C8beZ7xMBv1ntw1b X5s8/ sJnM6SXb0u7bhP2yc4+zZ43yFlHZmLK8x5YzWsPcDjF4gwb+/dbkrk4hm1j87FKGchgV93vbC5FpLtv4 3mC7i 5elBBYqruZqVe6f4OYuQAMrOE0ucfBWGEKH4d6VwNN+wKs2IqwKp53PqtLqiA0vYvW0aWX8K+qsbio2J SFd+a E99UNAGGv5wAoPEF0axHoYqJqPtyiYkqp817bNhEVwKsAN9YpTf5CWoMuEf2ToWGY/RBHdpnZWZgeYu1 ezyC5 /wg0dc2elGEUprRMNseIIdHelMavrxcRZdIdyYMdFdRLLlfZPVbudZ0oHd95v0IrGRrUJXGaSG8KypSy ZnElp svDXu6WbZGKUZq1BsfvJa+LYfBS/WOopdDI79mzXyF7q+9qEbvAC9dCPvXnl0mNorGrYPKTxY0g3WeWG LRdPC BCWE5/8CIzcFGMKT+k5MOWZoCh3d/CO0aAuUHDqgvvhdeqEsJ93NCeMRtaO5aap5Gl7ttw5de8iQvhkH Whj+b FeDMXlL6slf/zPSiA38UcagQpDd0gL+ble9JpFMZwEV3i6EGlwiaoBp1QMOgwQgwCrB1uCzo8DLcPiC3 pgmVF OGJ9JGr+K3ZZx3W0DW5J4O4ZTsyTE0JeWHP7fcMFe8uwm2rn4XZbeVQNqo+sv3fjfOytOMZNSfldVTyV srBgy SsTvpjOpmMMEevBhHIjA2kqodlV5DPTd/krEMgVmw91+utJRDydlOCR6oQu52q8Z+fISbu+GfhGqd1jI dvPpn l/57BXzCiNg4l/rsxTUCj4WPZxU2J/k60Jcl0Hce59qd+gj4HDN79WlKTw0K2UsNE68lq/ttvG/vd+L1 5E7bJ GEeo2wy8m1NRbDSSW6Hh4pt929CmawJL8TeRCDVOQZq1MnhJvWUjDjY7vKbX4yn2phGuov4LYD+CnoyX 33BGy dS2BqSojexHgtxuTNfOuYEsgqkLr5udDLvOX21aQ1V/nzzfvOcX/531fn6sEgpxFWz1LK+4Z1INvamtp 3qzbK 6YAoXDbeKkyTFVBCVhfh0WoQxqosmlC0jquZ7hC6TDyCBvBXTIApW7Gx0WGETKw8qvGx+Yx+Yie1bkYK +Wp7h POM4J95bresKsEipLMI9Hey2r4A2p60qVcbPEkI2AfvEAZyiZH+hEty7d8h9Y9AZSHhdP8byOXuhbBU4 kDw8f oA0P1+mB6amAjXqYerKHzTVQ66HpXkOlg1Oisr4iJ6/MlqPoHn25tE6aGVPd1zYznEVg96Grj8KtG1n6 9BhQ3 XYU392e0hkakTA9RomQSCndJe6kosWVajPV5+6GqJnz06vKohxufKJQEicqx6ScoAovSM7v+1GT24wVC rqdMX ZBoUTQAAMPMdFWbKaDfX6UrZaDpilGuw9euDAqVhTjseOcETqWQGQsVb2jSyfU5yZtLR+tW8pKPJiDm6 oTJUT B8jap8i7hT6BZ6h7NaGav4Z7SnyleBKhTMGIk8orqnzFydW0wMfTBxaZtvyBkx0F6bInSJBP4SIfTjjk TcFXW lmVs3b68Y8bA+kvP6K6hwpeZJh+bv2TnrRemn1fHkNi83Jrdeei46h3mjV5QX/5XVf+hU+DZQJPbJ/6T NWEJQ bc/lt6OOc7pyUrmsxt16ytUHwtFlhvJhZQ2BWYvHw7AsooxPqMrzDZYCFraR13XUSCfkXEaOgE+X3vPG t3WUe ZcSZZlPWxZkt+OHYR1lPCKaDD6nrtAOerNdUxAYbIMcvTVujeWjSjDDIl1zRlV2jXdV+koIbUSVC0Lrh 4KpSQ uMH6XxdjrPJTI6loBLUe7IBn8BAn68NWDFRi467ruOv9sCdN5K/fAOYnte7+Z+25057anvcjbD5y4ubp WKyS2 oVRWAJ9ffdzcUtmtnuVctrlb/rdpffHamp9iVPvXR63KDna4C9nvD4HOG4kpC2/st0++b+vkKv9GE+yE 1sl7d ds39A+BBo8spSq41oZf2VckOIlApFk2V7R9cE2+6n1gi96LJmFadDMlxvdBaMo+esP8c3egVGnq/ACLf +Gwbx tx6YgrNogCb1rm4vFX6zBQ2otzjWsk7ZQV2PMrxv2dvuty4WwTRANIiuiO2H7SM1k/dGlNLqerTepzbZ be5pK lO6S/jZ5mVa40yfYatXqyRgLt5hjfrYOX2zebR/QfbLtr0/4m2lIKBtql5whOePpkl7JyZfT3jn4FQkF HOYdd kf4yguPpsDVFMdppXDhRcNSKchal9cuGN9iqbjXi8Tb+v9UZcKt+sdr2LUIKU5TLz/8eji6KCBkqMCRQ kcpmF aW+2qT6Kl+BA51JMpSCL228WsGHos66i687ZmkNz/2sOWoAEjHVK2lmc6bSaaLKxv8hvwmlV4QY2si/X pxINN QFD0+731Db490rEcWHmLw6UTmaMD0cM6/AEOKD6KLQ8ukhqrznmfk8R7jHk19leu2jGFmnv4op1tHFa8 XnTed de6I2Mr7dCk1ieyn+EAiZGoHRP9WzZQS9+bhhftbLrmUWNnpSa2clwgM/rfBTUvOBpFOeHBKtDDv53at 8w/kH x28bf+y0HTtIlv0UGKep8NUCsAcF8y0djVW9h8z2Oa3qUw74wWD8RuE3fvjTD7BiIHcHqAE4QuOWa2g7 xl7fc w4gh1aFvsqn3cOiw/TK8db3Os5m91ggnbQ6p/7Oh3/3uUIz9A//8XYVP87f/Ej5ko340OquR/rl23cV7 S7V/O 19Z1125CgykIk5Y+USK0iGT66x+5hihhqEh7pogg812cRraA+IShsuSpvI7rR4YIkqHGjak4lbHJ/Z9V Tf0/0 Pr0wnk1T6wP5wW6JOV7wrsqD+t6+rrz/rwqOIP1ULwSDTgwdesu2/AxjYhjm2NQuT3hwhSipimsQud0y Dt3u7 c9aJ5u9X+20UzlRkkBOZME18f2Ga2sDLB3xdmrbBEHL3canfVWdl0kzEBg0oDWbwf2XqfrqGlW+ioNNj NNXVV 7saXEPGHk/xqBsoSYZ7CbowjH8FrnhfX7wJlR38Uh9vjecb/+oP7lBytandG30ftb3q6lghjWRJVCaE6 5DbZT 0njZw+IxuXPWsit5AY+ucLgCqqcK8sekPt5TMgvYbsocWi3+AOp6EJxN7rJ166Kj1KTe5t6+1uVt/Vx6 5/cj8 8gGzyzVI97MdMX3fBrCTxjwori84gkPa3HV50b4svScnzuoyxiy+Vs+agfshotnaIY85dVW0zIddM4cL PWGpL unTFltG4pIGuFujWiszJZ8bHFz786a/pjU/nH/nmxbM/awDLHytNG7rbVFV8/LGX+ThpzZxv9ewqL8tj 1w9rF z5x6Ia//8RzF89/0iSfN6uHFIozd+vYcbvWCwZJ/8jyAxf/1WCxS1H0t0QN/kL0vvTZg3be6derb63WC Sa7zl LM9mLw811oNCWbesDhQoQhEUqH3co3hZaeACXOjCHKEN+B6GSO6dt1Tc8ZOgyy87WldbJ4yg890y14LM r7qu0 2g1Juc0nD2mFNt1J3rbyp4tG9Op2KgxuKJnWGoo4W7LY5cJlU2zq1poUdjposeyZxt5OTMr7C38kf8Td bO0Kg LB4AYyI4FgqvhkinSw6zlWps4vsqtjftTBIypEVyaKVU8IzX1v7WnQYj3GLSwm03e0N6A6GTbmZMMOot 0zeKl 9Bj9b9gvTby5HRuLhr62ZMzzrWT1rGMmdk4MNwy4Q/v4wZm4lHOr73sY0s5jlU84/rCN3xOt0y71KhFU tC47b CBW0S0V86yAFsf7YLwbAq7hq3kj+ds9HyRT+3e5us/o0Dko3q5EL3B8ynsOH8Evj7SJjX3tCyfyIDjp0 e1W9s 6mz8EvDy3akjTpI3FeHUq46bjN3HjyKgm94s1R6wIfc2W+cs1mf9mr2/otvyq+6caozmpxtxv4uyb/xS o2DMZ GCztpYXuBmsD90s1b52Z6/Z9lXx7ie2J36ysTBChEq6xeVziAgmP6X7+Pg9ZAvDJbGPVxyqAk1ChzI4r guF1g 27OCS858RkJUltQRPf+C0mh3Zqp6KRAkQC92S9cnNhjzG06xHBvEQ6y9ZgTxrmd4Gm+2ccI3zmLIjKqj /z8fA M3Di+jnuI80b0e491FR+38Jr2Uzpg65mnkdkc6adtREORXSODek9BesYTlNKEigTOlP5oMnW4MQrHdB7 V3iXu hucxwnh6i6eTuUPgc/FT7YtmkpR6z70iFLXXVgYFDOqR9Pben/Iebt4ffedymKYJez3gjpte+2xFp0ug 2VLhl p07OHNaV8orbkTpWqWbmigL1gpn05lcb5NhAv2OFvV/qBaw6TvL11tOs04esIzN+5+uUhw46f+aN5d37 n33Pg Sq0xD3nihlAc7knacQRJvfi6o3z95YgQ8qoITO764O4cpruLrfrJaRX9U70p5QaUQ6AG2pxVWt28MCVr 60e3M YHACnFS5G2djJePUdcJn+1ZvuQRfLRXXQvPd/3+30YrQ9dxM2SwVAf9wM6o6aLlp4gyVWmYDThR6oX6b R4Tts 3IxbxYVCPhM07z3f4q2tNVDxwdNSY9In2+0a2BxLeGVE+nBx6u2nGzlUgfhlE0kz42LI7dbsBdncyL8/ Vqwl5 d1QUY8e10rYkAQA+HOh1GZoW2MFbzzzsiJP8ntF0JKF/lFntBgnXc2m6KKqtocgizE3d4pIJZGj1jX0b FeKQq lRjAO5IiHLOd/oZXaQHP01J1RT/s8QxoTE1zZsTuhJ3Lb1uRi4ie97M4oZLOe3ra1fXTqURX36ttxOBp a3pbf crh9/uWo5SPxfKV/k9tbbHUcAGmg/xiIiHFHoNR0Zr60t+2kF3lZhQH4JW/u/6CYnIXY4IIZUn0NOspT 48Bay +eqzTqIVfMrqmYclpX5V4D4/p9zg19jFS6KLi59uhWafC8k1Qmj79u0dPnLFZJG9tnqUqQKpT5vNcUB5 o0RNa Rj71E6NafcgZTy7jee7Jzz+xa0ZmcH0pl6AtpgkrCWebcstuWddJKJrwh82Py8nWBCUiqMJYAgROJwUU pSfnp K84vARWq/zF4Ejac80OQkWwb5S7Ap8G15e0pNw14mMyIUImwEltb1gFIqRU3a5g1Tz0f26qzJ/aNfbz0 lOkUw pbukszRtgScX4rFpRlkNZmRoOXm5FOBwNIyijIJPFLXgOLIp9ZkbkWHZ67UQFeeZYyGqV/k7ofYIlrTf TtxY/ HqFWaz3/c3R0mvRz0a8kzv97ZelgkxtjrVxWdz5bPLBsNhSpv+rPiV6oypY+6mlOIkKheEZ3zA4RNm8P U1NW0 YIc3NfyiBGBx9QCXicblxgBrLHnwnjPnyB5zoFYYiwfkiWqKZvW2IRibJl8zn7TIJEAqyfPKbmqpYY0v V2cHe 4fPEnT71S96rdQ6XWT0O5wBnLqUe7FpBg98HFBOp3R/0F/fOIy12qsavJVsn4NLEzUnF6PV2b58N+w7y d1WCb l3JyqJmTYdcp0DJvATCSwMIpH2rQ2QnS79v36toCkGjYib1AQfqxMxnfnQ/QBWNt7BSE4SIC9ezau5zv vZdK2 AuOT7rWNrTjluHR10EEbs3dxy21xQ5mjEG+V2ulLCbZXT74VmgiKo9rPc4kt0qDhz3/brS59dD3RW6Ag jx5P5 B+mljLPO0/tP03N1Y5tHN+hvxwcXnWh+YeO5vdruyNSS7JXw94Dk4Q246L5/X4yzGJXcaq8K0tzZ+Kdp xm9o0 ZA0zoRhyqUyFgIIPmuGFuGqVfzWin6mgVfCv+vKKesCEJuMXtwTkJCeXfRJDOLpVRgEi4kFkI5Tkg3+/ OpQ1r Li4n4KwtvTfxGyeexsqWMaTEzpyJT1vBh2GoILnWt4MRY4Rff4FXSUVKfn4gS2cKuljGRiUGIjzeKerb TaK4G yjVUNE1YSMmJkWZcmD0YERM+kfKx9BYD2ag/qhSAXF583YBfQ1U0VUKj/HMIGrP++hCw6BgVvZmTyYGq Bc/1z vKzwo2d/VJn51gYFN3y6/iwO3u3pzt5Ra/8k7MMj3RTWE2qgQ3yWffI2K+26UxgMm6uKpkM3i++7BKwj 3b13I BiQied2lc9MGqA2kcYaTlF6ljCwzO/6IgO0Jj3sAbkovSv1X7tOAXV6yWX5BPLowD7RljdDB0nFqa/hJ kbH93 cCBjq+QuIlDaqtDLyye90mKt73YdvrymzyVrFWde9Y58rw1ewvNELN0tmX8XrywjzI9PYg2BB0iyVvy0 O6MpT x04Kaj5OURNVVkruc+GWHzGAAXtrxRP0IYrmMNsoHwTLLvJT4qFTzBqVOau21JZHThMkAAhIftd3ZgYR x+uGJ i9Wsa9Be4X3C1rkCi9OSgzrfy8R7tlxP+FnW4dVUdrUXoaKLEZ50ba3GG/SXmU7GwLiAIEAjbhDFtuKq gWfZQ j+6xU0d9POIG9L6augZqsqZlLIkbI6s0O+lJKMDQp7dQS2RNFf1FWljAbMsRWGWnsP8/NMCK1YsuuDXY GG1Ud ENcMkdftAplvzKBcqDrigmeKVmA5S3vjSNpISXqCOvR+3KID6AxdBMTj817HuoAfNUwYK+B8Ll39fR43 JcivU 9uZH7kgPsMFPMKh7RV4rihVCjpVu+d0EWSDYshLhi8hqb0fVCY1hFtyAuzLbSQlYM/Q4wA2nSMfdeRb4 2g1+W 0+DQ68i71SjRQ8Vi2qpCnwyO2e3i5QpI98Y5JGNbvd8T9JiSlMe2oiyndK0g+9A1jKNFmBuD+eUWSiCl PHrcQ eSdIl+w5QQhjhfUA8gEzX1ZjRA+llrL8dvifSzOFweIekZYXcP7daiMMVOXjKKZC1FsIzOCUt+xVgvIh +qBa7 8wT1wx386bKtRfvQBqpBcenAn6EbsZS8wFkO0Yy4f60R48Wd9jzASJ0jRRtfdxzS9JKilU8mXfbMFOx8 qX1uq waAel4T82VRCViXntiHi8hkzT4NXGcoThNvL8t7mQLkfialTidB/L853NB7CAeEoq0P/th9bB88X3C+b Pacxx 0FJa4b3PPeMzQl2VjKKhQCstMypaUkuzvt3FQiPpAaeRTfeJpHHzYDN3LvNLlyYtIzPMo7OQz/044qiR zWRIo YCyIB5Xu3ZSZHRYOL418THuwLVQwxFyAnZsOHAjK6M6QN9imInza9HjCUo4cPBg2VjUuftcETl5Q0NgQ VvkCh fZgmnnoMaBRJNK0zlt4thV8gz7203Gn+8csg6MV0yRsEFF884L7Fh91ileVWWdBYZqihAjUtp95dPW2K UEfTk d1T2MetNnQAK8q0CWDCti87n1R+6EHFP83X1IzByIzgEKT0UiOKYZq5/+A0xP1XSUGKc8C2xvDyqjwv8 kLIkY ZA8LaKwyevF08D0T3/q2BXi+mI3X5z1s7YZrV6nNJJ09QTKc3QFce0X1Oqwpx8roEWKUvk+8ExGfs7ks cqt8F ubXqjkdsvLsZJ9R7ePhEWQzzzGjumLJr3VIbJKZSR85JsJhi7IiqIVK0ncEhFatOK6BMQtJhLQzsseQg l6rpS E0s5I4dZg29vFcZpHKU6/IssakwQLKfiBTeYYWHM7Ip0D45XXXvYBdW8+LmTitjsiyWXe5POODAHhWVt w4l38 z2UV0vSNt4oetyJs1Jw6s6b3sfMg7cDlO4Gcfh5FkQSXhvH0NPovY6cwB+MhbOqK/HE0Wn7ucNtCgUMN BpQMw KhioIjg3HLThBY7ij1U00Y1JRLukiWyuYWntNdlRECZsMquuTO1jYTvbvMPb2YZrDAylgVG/G5ED2jF7 HvsIA PK8fTdx4RcjaYA5JGMcDwOIdu/WCD5RRYm9r3GB/M8hETQVuzsU1vfHbpTpilbqghkRjx/zGGDyp+xbj INIj/ HP+l9YvGjB07Ke0M277kO1QazOwa1i8wfcppOJ6XgJ/IPDykfeX1ghTQGnTleOEAW71xfNBR2Zi51bdI mI8Tc NP0Wp/AzZVpZncB4piH9F83v+VWiS3OpOumxmRZb0ad8xcYeA85CEjOnEFMEP2uEqBi3ELedOw0IC7OL xynkJ x4Al045PwQ5X5zP3sPHBNAvITkbZMGItySv47OcpDSA08tX4HC1koDd+lHi+8OUA8Y5fo0U2yY+hEk54 f8y2p hzaYw3gNZMsoqb3s6N9kTooAyisGppu66Pm36ZJpDdEAs3l3OjpkuEiTmKNpcBt1zDft6Sr2PaIWycTm ypFw8 kji/xtFiw6XItufgyPj3WYQplLHeTCpoPE6mZ5nsis52nLTMAB6ZeJZx2zXwQPU7lXY3fbd3+Qt8oHPv 2KpmN J5UoY9bPP55QlVR8bKINPvcczQnXOPYD5a4HpwGdTV3E7LXsLmUanlsN3WwBqgR+CIcI7iZ7COXtwuoB jdDoZ j0Y8bFeYzTTFpfronRqH3hCukFR1T1qlR0qL5AEj70AMDX3/GTxrtmdrjSBWXpHbCxdRdahMR1EtD3aX VmH99 +sWoklDq7d/+6aPXRln897XWwC7BRrMhajcMT9dGfIUzWLJK/fETxqCf7cjbA9mKjm61vkkCeLNgmJQA Z3vpw tUTfnMYzFFIXvzSNPG03bHI4s0nwo9JW1SDERgSblZb7yik3YcCZXJ5S1G4YmxJRst82GrIHYCxOcsVl 9A21k XQUXrqToIjc4yl9ag1wWA9afGk4HnD5jlhnEV24TMJSomlYVD7LORgzPJ89yJIC9UhSpBrit6oAlV8KD Clbjl 5a4uq8EbzXzztiCkkqECfJqG9m7TMZmAjpzSJ1pB9ZO7JooM2ewpJx/IXgIoWheB5upSIExK7irkyvkB xGQ4i 3YcK00XiOm5pfEsLoLKnG/P5DONsA62VGjcX4dqbpsaviUevSUhwhWwcCDXq1IndB/l08jvRgOqeu1yq TSZke PJaL+DGKBCUxGTlFl4xx+XD58faxwjUO2fzAcGmq2YdMoV2MUj1zyXtNcmUd7tscQrHA3v5akUYTdFNu scM04 ECtFmFmBT0SyVDhzqwakzGttNDL2YV6lkj9TWIQihI8UgNXsQSeFdwvfhqhxF4xNdt2OnZZ6lyOgnlxs jrsSW i1ZfIH0uxVWxgdhZGCQLuahF0cDj1PcdM7Rnl0Kk7cdANo/UadwvtMsalHUuXc6ytF2140vJkzwP8KSN iEnoo 0tKPJlgdxkVklkGgXKLGLBAemGZBW+VVQcgVJaXRCLkVTqWOJQnGb5tsySk3SJkZugtlXLeKIGZkiZTI AyWs2 wbPqHZqRPsTpRfebvMst6P0KWm/yxRP02Zr/HognJcLhkIILuxkEF+WXYfhp1aUiOFhaYTvyeIlnJDVi Os+1w zeReJKoMf1UI+HEHzkIoI9XdANNBIIlautEt7Oo0rW54NqixFdq4VTE94HFxBBk4WUBGO+5etS0lzhoi nD9K9 yciiMx1eAdhBcF/TUJgGZ+rfqhGhH25ERd2kL31T9y5PfuIT615YPsGPVdQEkBaOAJTpbXkCJQp1JDF/ 7uB0M HLQRyeCkVlGcwKI+ueuGfxJfh9q9aab4S1nYNo+PR8NF0aS9PgRCFxHqEScC/6WV9ASlF1j4Sks//Q0d uXfB9 yHkb+o6AbGlWKvZrCtQmKbZtyeQMYS/DwzJ6qpFMpf3u+c8dFx/4x/MoCtQkAljGiCuwNTAayC/vzwOx YJhma QOMZx4SbLyy5FYhyrRK2TdL/6xS3apAtKlObGqIcLM0MITINtUwrhNMaocZeUSJSZ081VggnDC/zTQGu eNS5F 0cqDrVvEfQ5qf/vT8awEa0IFOgpAii8JjyemnjFYwJRDecL0EyKGmLWTsr+k/wn2hMFn2zb99Bfs/n93 wIz4d 06E4G0zF+cbVs81eAibOoh/Vsd7WWNg677356yK1cx3wtPusXgo6b3DlR9euhc47a5V+o1Jtq0bThhTo nau7e u6yi6xNLdXlxnecT5Mg6N3kfTtJVt8FEfbIQnb7Wbg2nmcnI4Dx/R5sc/6N3PXaKF+TrzIp31LiFJW3H Yxf72 ZBjgWk+yfPpRcs5kgSQ3zjtf0kkQzelqP8obKtrE3flabjvGxoJLln90YnxrtfbrVVLsT7WdLAR9ZfhU tSV5F nI314BaD9IIXenodJ8XQX/4H3nJ/vk1QQZ9oy6RmZYAlOTwjolZfJblKCk0OKTYvJPSkKryHUed5Ia5U aWx0Z EHtK8WlAAUiGBUkq8QxQb5TSW4cdEmyVuR1NRLLI0xzesj9oRQnKJCmUasIGe8RNrA7utJnzB5ScGxri Xl4FM PWU5kchaxlNdtERkuupXuNqZCXOvyQkETIWMopmASwevOI7GWDfvjwmQPdWLXLZWimrVgWLWHNSgVtLX riAgo mdgaPxrpFws9XUWRM474hof/3vN/z/GTfiCnn5z7SlfI4yr3dFMUZu1onfSKFsf+tKa26gSynbWUz0mo G3Dz8 awI1qbU0ibbTfUhnWjFAdZ4e5wUaiPrf2IA51kSA696rMRRMYF77dAr95tHC/2+/gw5OIvIJYfHMNhv9 hFag7 9xDAq5Gnbc/40MovwhoP/Km6SO+CAQUx2tuHGUfjtR1tCxA/eZO4PADijW8alvSeIfv81UDmbRW2QKlg HnIuK YCD42WlpgLbfnBINyaj1KzQI4K0vJixG7I5PPxs0kczsTcScy2eDJzqiSIkisQeZ6n6W+0Eym4Bz3+Si Qf8Gc 3x+h8fO37fJWGWh8TT/DWtoOz3sJjY0wlCDSsujrxoTo1zBaBrrnGYf+yH+qo2r3UKY4o6nLoAOOKst0 GMCf7 oxdlWTeVbmGRuNaSct5fUpsMrbOdoXoyPjVfJBdOw/q/trrqHzPyo4lJJw8IBu1dAgWhZp4mffXY7sJX naMTt PKkv1kW35P3e+3id4gar4+7ol1rO4/VUowF4uMzmLSAAGXM/X0JUP09q3xBJTUpsVl14aDbF57/V7SJ7 eKM2e m0/8mbN0B7YgXCYA+Y7ZxiJsOFoMXWJvI1dpZG1OIOjmjLvtiYBVI9CFixlLmCreZ/VxT2pJsGBEyVmz kOZvy LXqZa/tqXf4mCERnwW2gyVgtHAzHchWwNCMK4JsBZjZxd6qEoQssxnNsdst0vq+kx/1fY+szSyHlnK2N TusCv NWUXFl7J3NxOajWXtblbnCLJd/TyAn0OL/jsljMFNE16IuoRUHC3OApaS4sOEsc/IKUweH9r4Hgxd76E VfbBK L2wNje7GJHqjlye2XIPFx3JaKkwcS2AmidlG8aRl9V11LLrx31RjfNbrvLWVJBHLMvLmODektNuNwHr5 PMtXP 8A/qHr0vC8Q4pQnAEKG2uq0kCxz3xyfd18/8gaaL3/Z17Eb3DzbOcMgcLSgfsw0q+V/0YfP1rAnWZxE9 MQnqN bKc3/l/0koCMNfgKkEysEzvgUGio9G2ck775+SKQ2znebhGcv+oNXayzBzAPXsBhprBaeQbOdjN0EmEa +9oCj oXla5GB9JagJDyWJkvs5hWPu2Vxz8t45hUDB19KqBokYM9g1AbHq0Q+siJREruwBitEof6JUrMV0eA2M PFJGb 3TF5OR83puE4TUk6BQZGx0cfqjZebiIoDk6FE7EyutYyoUZTP8RRV1D8+lHtH+Ph9eCzxFvSFDJVd3ys qx9CP 2E1q5Y+6RzsBRYoJFUV6rg/7lsSbWcAK6AfHK1MCvzIM8iVLfneFIIIq2QcOw78Z4p8/QYK4RRc45AQ9 EdZXQ aek/FqL+srKm5o0NcYwNsideZwMmM7BjRsifvGPRBTpG3XKR+q/TTGQ2QfMy/kppLk1AhnFHvlLJVac8 pRJ+n JK7tPjooFc8kPZWwF9xL5+rH8fpyT+ELxPeeJFwU3YsfMc4e6uh2gCmagDNjAE2Ahu3VIPtlZ6nCiN1r C7At8 0n2lQcq4U21yG1wR5PJAhIW4vqF2MerEPKrhboIt6LfBGjVPl6bXTP5APcBJbkUVgSzY4jBlVw/EnOyb Mj35f s78NrLLDH3X8mI7jHB2X38mvWC8Vt5Kc/E7+Cr+ze1Ej7PeXo18qofesivgvRiuCE6MyZycDwrc9MVEm WivRf 6U9AUzvGv3I8M2l/R0oM7+Yzzq9RK/K/hLzh3r4FoKA2g3b/ZR8IcGyCp5qZoRqyv/ek1mBAaRDBsA8C Vglcd 0OQjpRG8qq+TID9XuTkZ6HCnnMY9Jz5SC3RJfI6rlla00YKftdt4/hg0IIygy5nBqR8PSKaJEfqvQbtv jqZRp tXSuoFU1kMBmBW/B1NCHzeS3sX3pkGI1RG+MPrYcw6jsJD4I6zOwMkH1/WKkFg5HA2s1+ioX+jgZ9F/E tUhNV EjpOF1//YqzrHRgp7MUMPMgCQWBlTYwRYOOcFnJ9tHYEWZew3C1rqDIxYfVFDSGRbNbT0/k9Bj/3KW/z yzFnv SYyfHj9V1/6JRbBxW/jZpsCy3L7ei2PnBL2A/Q0XzAcC9VoFJqCNNGEypIfvHJMdPKkvQ+I/pQToAmpQ L/wFa 6lMh3+wAKaDXaP+v/bDBa9tGg0TIOdx33XkRfvcKx5xhDhiWQfpb8iqgo0A7raLp+F1nNMsnTZUGtJZ/ 7TDuH MyOxO6WXUKZhQA+9HYkCk7gG8WYR/STe3VCkxFtQyhoXbY2pWZ7vw6ELiRghMv8cC7UaMyf2qpali6Yc ofdDs Iw1vhOZDg/fl5F66Zo4Jz7Mh8TgSd5ngjNUngn12vLef/9yN5ii+IpKHWhc4SK8sW1YjVFmeRE+LldKu afsCO oyRQ+ioMmholWV0xyg6KX8DGI1mAVnKUh3V00fNakEKwLeEKbRfHVtrMwdKL5yx0wqDg53/avhg+4jFn ZNJbI 7+ZH/fO4W+LYw5/sAd6Wy/4P0sWV5pU2g80H1yzDjeorDVEBh0Uq47iM9Bp7PbRDVhmgXVyALocet2fN gxzGG LEAUK3cmCwAkc9z0mg5ac4Bok+hU2wt/NYQnMOv/yZKMvqnUi1oUz6OZZ2prgITrnrjdx5phm6hOugUh hbUwP 1ea94ApKG/9xTh/jsjbRO2RPUN2KiChCbK8Ts75WSNL8XUbv6xhvhu32/7nu6eOujgARqsN/+Lt0XB8Q z2mv0 uBtc/AOt8Cgni4HSlcCS0yRn5wCnEgUCEjIRITf2smIkX/oTn+UL2s2oSMY5j7sCHwgYtMucaJpitOQ0 PYk2J ZSCBFsRMS5FG2YXkZdNr/zR9ZrT0LsMjEISc7nxrQB9T/ISlvseosUkdbn14M/y4BEpdhx5DXC0YoqxX S1ge3 8g/k+J8FopFZ/Dxqi3brfYCnEHwBOh9W9Ke8Fg12NlwJmzt0FzzYzb3S09FW/vF4C9rRctI5X/woTxKk 9dsSG QLBLTYon+Bf6fZp+Kkr/SGazCLRGA8Cguv9P4E/Bla3PPemoh8hCi8VCQIZqtf4CLTduU/yWcK9ltzm6 WzPfg Dh5EVHHmTZu5W1P+ApqVaPGABXTB+LermY6+b/p3FcKRa1B/zP+nf6t/l3pEm21WwuaX+MsWds3H/AfT c39NI hzi3Cdx/7/9OzMHj/77a43of/1KHXp9Ce2n/4KtxBdFzw8F/Rv8D/vX+3fDR/p4WkdF/El7ac/9IFVTs r/bP9 S/2P+F/458XM48F2dJOIeJ+jZq/96PW9z/v8V1tj/9lL/8T7r/PriW+RIlrT2Hg9Tz9P2EyjrYcBg+fh lSItY ZA/83iV3Tep3MGnXxu35NJMqBnNTUbjvWRYF8nSGQPW2nyI4rzBspCrGMs/D3+JWTse+kfRAcg4S5fjk tgmR6 BSsmY7sTcl16CxdyXw3WxE2/hm/sj2TVdnzIFRQ82Vko5RpHQ72KHaQ8hpnEd62w3tB3g1F0zt0MWSsq pRniO UIgjFengRbC1AZDu8CbMl92HuUFPzvWS4mpAQD3pw8G7gEU35JzywBjVzdX9XATjrFxdT/ueJLXLf0bq dhxr/ O39yAgYNezxoaV9cU6eK8D+yJuJ3eiTkw5NjuG4m8EM/eI41yJbRJQScwNS35SO3YH0LQ4/lv0EP/YN6 PRV0P 9/uOG1hY2ZDiWUH2OddA+kWGloQj6lKJogF318Mp3MVA8JSNA/C9nFdmJxNxH4T19MJYd8+AKOZPN2ZP jeQBu l+zGzyh/1v+f/VnZ2IHb8PV2lefpbvMocvJL00B9cSlSh/hW6uQzl0gtEbd9zjGB19V9OK2pblClI0WC uaP3C xviFU6cadeo6Z+O/FnWdgGc+CFsvQzrH4Yxww4AnEjSAVMVo+8K0HoSp8F8B8KwLewEj+adu1eM3rcgl Y7Bp0 0z08Ji4NIhGNWdbMRTUjFve/Nn66jM0FUt9H+ilOrwF8mkRmLWveCmGIDYwKkceVXI68in76Vu/ZQe2J 5Ba5P wm4acWd+AR+C/ViEgmG/B6BbwrxBWjpnRYJsLzDLwiqbjXHuqK3jQJoOVRJ8aCbsIYAw+ejcVVglWbht aAps2 BiI9Sqg8tPg89GGBoS0oKeyWXMA9CJxSx7zPV3WndURuy8GI98yoDtiwJG2FMrHF4JTj7SKHoAIx3ULF 68in8 SRG/4yzGT2NgINq+32G/WwR3Don8jTjlNreRd1ISBsuHzj9FbRN5HIXRfK+GBR96YigcdGLk/YHWHGZg RGXQf Jjg920Rh14XI40CZvencEoQ3cFdoVxA0hZfR9XwlZZiiJRiTTu3SP7GmR8RdajM3mvpatlIw0Psr8djh USSJ9 H+J+SwYwpzSUniO8TM34Ewj2z1ep/zxDDnqMnRB6iX6bhHXIfEnBuwUo5/3j+VrkPNZP/14M2/QMnDsO pLYEl Kit46YGIR3NbKGJEpuzF1JLwrsGE4xbKYnuXoqNA60z/P039E2aoxP3IqyPV/pH9foLcr2MB1i8QoPev uDkce TnoezLg1b3qOK3SIDBu0OXz/RuV1VUTBxjXlfDLrWdjRWeuZ65FB28VUGIus80OoaxfUFHsZmNKjKm7h nZPD5 XkOtetKvsFfMKiNXeyentqO7Zag6svbfoegMx+Z7E+XapG95CaptAQD6wNe7jnKCiW29riPndy4o1RS4 ZD1iP En79xaw67zn9P9tFq5GYvFsyjFmtc2TH+eEZxg19D7M8poNsVMs7JcKr+5X50oF6/tjfh9nP32be+dw+ gwO2I lgV1dJ0ItscA8WXIWh4VmgQp5xXd1tencH4Nm2xKkCrQevrsdLn9nPNEuv4dzsos0PpJmpM8ynuKxwO4 o2uN6 2/Vk8rDQazFBHP1z84JguUoYTpECStaEyKYga64+ivKe6OtvdLr07uyZjugoTpiktm2d5bo/AP+GQKMV nBA5d 0A8/Rz/WSzYphFC2w3h4E1Ijrtd7OvgFIfctFeEDiM9N4zEqPN7qMpBzZxUfmv1G0HgNvAJIemB0pe10 mqzdr cLVHr2x3S6osk7j/Ok2IBvP2SkfaAl1HcoGRmBXiWdMPZe1jnpTkGcwf5inrYAgy5OmSlHMEIAGaMGfS OYRiH mg9JI4IUA4emSsBKrrcBhgQZAbYFaTXyNZbzYCjLSSxYg3oLEzW4iwLA0BqDZ61kQ0lTVBvBazTeFK/A Yl7Wn djeYJ8DlU1g8rCu5YUY3g66nwzUQzLxSyIWB4ys/wAq5nd612ohSZG+uEM4RJ3Wi0JXQzplLZCGe2EUs T204t n6YG3lGgjjsytMisamBh7zxR71h96QGP3J+J7KcV5vb0/YS7w0k8/EFx2/3XeBsVgaoC14g2nNkYu3iy 2r+sf ILMf328s7ToI5d1msWcfHO5z5w//qTeVq47Vh6/gpsQrqBvc3ywsIhwTtr+VrnokLxeSb3NO8+yo78eO T7I98 c+ebWp7NMym7Qbs32+cg2lF4/tblD99u4Wea1xUpZ2oRCRjrSaJ+dbO70OnOUgcXVN+kf1z+mX6Z/PARADICHLOROBENZENE TENDER+ IOov/ LGSOYX/VlsYlS6pEFHISwcGUuEQg3eae9Y1C2AKjI6UQy4pQXmKlmIzhYXV/3cQaK5qPua7DXDbiO/7r uHcEG T7C958+b/2rKQtA6GUt2ij/4HjjcPj5ifg2u4WgUjpZkQcjudi5D+jrk/Bj5fz69WgselTHXktTlLFhv 5+hn+ HoDpDr7s+FF/Ek/TLh0MEzteQ+ToNzJ6OkBNy/ayssDdHbuIK3IMs+BX1+BFAvTEoAfrLV6HVAqTkW1O fQ4od gLb+VC9FNWdCVXRIN4CYTrxWKumPtacscVdrYHbYn8VAm9Qj9eSTit26ZCKiCnoByfiuwNn6NfLDawCj cSUxm CmzYBVj+IbF3V7YNzOhmaU3GdI5qc7/0YXtTKbUhQFnIG4Mb4ATM1xz1dx9aj+BHxPHaKR8mDI/Dq3iW PQcPq BIhKvTzKYz7PRvGE8XRhNJosWIMTQwWlTxohFsWrCCJmF2kE4uINgdg2EE0glDalqdgJPtztB5C0ydqU WlsYA rcct1R0qZECn8zdUFoW+l0N71WBmOZxuY3v4Sp24z0solmi2kxSnTWayzFGR3l25R0Zbl6GdFE9WXsFA rsa1v Yra/Gs6DU0jcTn1Scuhd1dpIc8Ci0R4yx5rx8Ab5U6smfZdsvn4O70QsjmEVV2LmE8H1voqwP2RA9hKL Y+kj6 WPqE/8h/ar7ZvduStj+pz5Dj6zHbJ+xF7BnhrMT7gIMd6P8Un3DrwY+h55AxhN+w23UP4s/RDwmp5Ayx V+ms9 Ud3Vuww+kP6U/yJPz1plL2YzHIiTezHVTTggaHKwMx7M3s8rkK4YA+nZ25M69VypCt21f2bCBxiHbzjv 6zKIX UqUKPlOzZkIHAwRZtyZLmulpWv9Bi0Js8XZ6TTfEFpecdpOnoyx+wjRBWfsE/ENz9whcBiMHIkBa7Oz0 ndoeN 4Ysz3pn+WK+ZtnM18rdaX7ai/Du2Yu26GjtKy8QLX97JIvSDba+LpJ8ZyipU15mZyqNXsx8cY6vowL31 wnDb8 aPjJcMbws+PEju54JN3oX6v22aK5Yyv1uuG7Vh2Yw5IhyTmFZ+FR7J6eBaoZ6z9tlIiFV4rhcX/Suzi+Td 8ivyq /Cw8o46jRvj/La4tvZqYqaV7b+/Ny1lfo6tlH+J55DBoq/E30fI3O/kD+GQ1Nq6Jrgtt/qIPpM/kj+WP 5E/lY /IR+XP5M/lY/Jx/dP6Z/TP6p/VH61a0R/SN+d056hhM9Ms9B/TN+h718wpr4zhFny6RR+Wv5S/kk/IX8 sn+R/ yKfkb+Vv5O/l7+Zg6sHke/FC9Ve5R/kX+VT4r/yafk3+X/5D/lP+Vz2fT5Czsu+kTBgDz1j/Io2vgqi+ tf0X/ qv41Qx/DNYa+hn6G/vo9+cp3j8PLEUqYkfaCL9muv+UqSMb1oj8CwLFJxnVjzdQuFz7t0mG6WVZZO/Uq tbdSa tsMdRojL4Sms9MhWQS5tFuwJ6AqP+Hf/87+YH+xn7x85qAEyOWeq8K6CEIiYNs2vFR4/Jea6XdlhFrno sN4OC RNNxbyGW3cLVppDcJOEid8RTyTHY7fUUZZKKngHZNn4ZXvKlzsa+TfN7pagdgN47htas9yJVp99sn6v+ j3Gbo Quh4oFHBBLj4BnkkbGD/kWTybe+Bh5/T0mc4KsNo5H5MVJHVBe2Bs8nf4tkk0QadV5ehiX/noibnuv8a md/N5 bGpgsFpKa5EcwSdatCWpbePADBJcd7JavrKjzyDqvoZJKM4KxeFKoiEJWn9U4fRiOJumu1C04eczU6/u XmUhv Ay65wWNRa+uddrQfrGGAtPZ9uXjPEuNbPDJ7/kHn6DhdhTyQkbxhnnhxNKX9Vu3uPASaoa2AyldwWEJY o9LTy cqhAPFPzLq3uIeXryefGS4Ne9UP6pBdYGtUMsIv7RyoVpT98EexWXOGqxdmS5SaMwPSmQSsalqMDVnxo 1pUrY kT5DtsnnTS0jAvb4vg/MC9qbmmEYObW1DF/6ib8TpvRU4U1qin/V4ttG9O6aMSuf0uroMDtGT8ZSjjAD R8rHy wgRKyly1XYqwAVY+Rd0DaprXyP+XI6OghMKF50OHmmhVw7tyx++GPwx/Zg4itRsbBV1LqgIj+91wt4Qt +VH5S Tmj/It1klxhvGU+Q77aeibvCxbFxwYYv3A+aj+6fdfQZbwlapclogqEjKDl5HAuzmo22dB8xdUHuKJnl n6uHl OPq1+dO7wfvLiXt6T/lD+Of7IikcEilwFh+AVaTbkmu8ChVbDknDjzcMCtRxPT7FP1MkirTUJUkTSkYf VmXZQ uWhfD7+V383N7el/AH+BJ8qC5CD/ZYUad5U/wR/ky/hh/nD+LzKg5EdSyqrWRB14gNcUwFstIfU4W9Ci iiS91 T+gW14hrKenQ4Jwg5wqT4z5ZtkGz355HeaB2gVzV98vkQo0wiryjAo7amuM4AK8Ljm8TW2+wN0G6nMpp pVul2 6Wx5fAhZHVmNzxbvG4LrbV2qMak96Ut5p6T9iSp6Z9tc5g0rz0QztmeSf6vyny5l2Yr9/ze4tVx2+03+ BBBNi SHLlKnhIFsN71xqruGgxsngO1pyBlAaS31sLqv3Pb0YzoCWpyV1Uq5FD5FaoGY9POcN87nkGaC0xY3Qm ulHdJ Odp7CnfMdbedVDqTFAxZ7C8yiC9qo8eSag3b7yaDspZpv9ZRfbBErgU0JVK4tp3vGmYU2q/3MTYjDBM5 qSY1U gOcNQm8WyUUzxIslRqkl1WLuMvsEvhRxiCNLT5TQjjXdv5rkuix1bbg1KU6qSsSdhsfgPxQrzbBmypkm 1S5qu ysPkOvLwORiyPthSaQs4kNp8fq8N/Js3AvoBlcH4Bv+38IimVtcows7fNGMWErPAC6a/A2+j+/nb/K3+ Nv8AH +Gj9eZ8yo2+/wQPEYdBf/eZ2xD5Kk/l7zSjfXnDc4KVRaIK88kriPCYqZscAGsVFuZdNMTp45hgOs29l qkZ7R 8C1Sfz1Jf4/UT4nNh6TGH6IVvP0aKF7p4V7rKwb9vj/TsdVXvqyur+lzTt1//HHRcxaVde12u21+oHUJ Dbxw2 cDZGHwWEhY3f1uitvf4mBOJG6NjIg10fYwJG647sMygLC+saMjpcwoFgQBCyebnuV9U/pBOYXD2j5CBM Hl1Gj z/a0MLVZ0pyPqI9yMXkA3d9Wyqk0yvpt5pAkFgIN4s5EY1uraSEx21ivjoLR8/b8/Tarun/btf/Ottw+88 +5Beu /1Fp45vHsb+uTTI0c/+/yFd9qlUfo8hyzfjzpU76oe4AW5pJZWkD1ZF+KX4vu3LO1zvDPf40E/n+NU31 U11QM H9O/X95o+VZVX+9oqeIk7Cnw6YQvBwG+Xm+NUmak4v21Qg7KnAmR82WTaDrHXPSQnHf38GjnHWJytJbK HhYao Cg2LpDCYKXVhd4II2sOD3uDpYck6weY3btBdDAXMKC7NKSCDm+/TYKvVutn+3tOHniP+4aPI8Py51HEJ bCVUk pVp6+g9VQszp7gq2SU+1SjfV+0njORy4hc5ikGvcp4V38Kduqur6/mT0aGYVkhd4wTsXtYNwiGayN2Bb EgXZ5 hfMNyIwFwuEYNFtHphfYO0mxqKcsR4DJihKJzY8EzXU9PzeVxDvjOuPJTRlhTnQhvztg7605MO2J2Gam nAutz qSBbXgv3SFkdNbolvxAr0KRr7OgvvfDJcpnu7IKP5vtRMWyaf6k3j8jn90TroMbdYwzSF6Noq0pa9ETz iL99i zqKQ2jaFwzofYA4jT4uT7QRW57sAV/wYM7xgM1bEHknPKG7ouF0UPuYPSFOtVIuPWK6XXyOHn69sHK4a GFuD6 nscKTWgDS7TPMXQT78z1k8LsIow8g4TwT3jN/pVO+4LUtpzZrv77gXeMxED2A5KMksO65qrMdqRWhVY1 BRhDB nPnd0iYO/BtiL10fPH75tD7UCmDg5vTLJN8082gETfwT42ENkzFrEfpg6wra6Rj8uBXTwE9Y7wr2iYzh JRL8Y 0QO7LjUl+i7Kc1gv6x58qgkGkhK7GatNNurzfCHhyE1yHbszA44rQR/IzkXOHW1n54j0ey4xOVZNnJ9C hAvJR MODM2XO1QDM2UJgjnJ8+Ienkeem4pnU2UzdcuTKsf53SdYaQk+6Wlpj+fdD0J7fv1rEBaX2E0DCUJMUd 7dKP0 HDu0TUMgTCT/T80Dw+09+zw2CSiTOWh55HiPF613ycwBfP3s9Y0MLswndc9ZATPIhpRCvl85msAvzCBk ViD7M TPJcWjKZ98B7sLr1E7kfVBpgpRFkKty/+Lv6x7X0Pf0DI4PLPRPlHgx598/Ev267ZSufVNomN66cxthE ULQv7 UTzJ2i3AXlkCFsfK3fJKv/+btWznHxWS0QYu3HwzdStpcjw8+QiqgOejK4lYLq3qrzz/fRiaGPPP5CDa ajFoe 7mpQtTJ+1rjCIn09NdGVIyRQRUiI/HQppaY5aOWJc3dfHVHuIJ+PP6AAz7oOf97RDaNSD0j5OWHRehQ5 BKbtB +wxlMBjU4JQo0rY/+6FEDq8BRVHjno0GcVpErAxfWXFd+HRXbPzjvMhmmrBVohghuzD031EuzcEZY7Vj 1020b ygFkVnQ9+1grCJBnFJ2jcAORry+u5jKoBKcJlYeQOh3ioQVOX5SGJl9cwh7Y/3ysVZancFyTqMw4urIi S/247 pG/g8zFtP6mS8qCFpF8hELJnPiKIEyl7XLrLWwUF4dJiemeR+zJdwlZj+XUb3G5XYnk5IJNH5167EAm/ PJh+b 68vH5DGVvE3+v+yOlC0dvjtFnWkME/G0DieyLsuTmtyMTpCzS31PdylAfr6mm4coQ4lwvmfrrOU/YxMj rc7QU wrffaHogDDIMKZpgOdL8YHLBurljBABLWX0tlN295H8YHygmUAqDElVdSoQU9Xkh35CSay0xwj3OSbiK zdJCx kHeW7Hip1es5iKdJBbsskPG2zC1DAjm8cwHGfBseC/PsuVwTNMm0JZ7JUhlEVR1pr4TegVHQMGDdJ3li TN4Cs MTPiFXPkCoOWGidEvJS5JaaP2GOXZKEIYv2baHyPaaX1+uTlRvVYzRmEZMf3YdDLtnaEJ0a8SNdRYWIc AChFy H7Z9sKTmxwjlsD0V+qjvhquZpsWMuCf7uo7LIRsCiIcgXfLnevMYwlV8SZJdB25aaKFLB73U1Phr9IhY SmPQe hu3a6PsMnDQIXmLJk9rEAXBMbm6GRUskf543bXWnEZKQucman8Qj0Ry2dABus/UxaZjz8DGZsINUjdoO uYPyA dH0zJlttwCxgGeo7PJybcyRUhPBoQivwOJCVJDRtRG8IUbvrb0fEzqZNpbV0kuaVPvAmxDLcUgDbXOAg Vv0Vc 22JrpCZgnPElIEeX1LwUruaqKOL/hsVPp5wcIuvvqdDojMUipDPcDpo5e6hOqOqpVSJ5zbX9OhV4H2Tc MF4P+ MSB/FTeCu49V6rxEh6b5iZQtxwUMJMxAd2e5BwIss5gwJKRBDKWiMWN4kTujw8TIwQ4jqEgre9KDXN2O ToeRO aIizGNB3XgIeMQu3XwTbIgQOPra4jOEaaH92j3ImGLoi4dxeQspGeDYGdUWHZ+Z0Eb6bHVcFGtTiBkFK LAt0i e3S5Hf81/Y63UfBNyh6gqEeyvHm/g+uZ4Pr8CgCnbBoIVMNNenUYqSDJ20UzjdY0nEpY9bZjuRHCpPLG 1Yo9U 8NBgIzSirVtA6BqE4URxOdxoaleSc2RERkZcbTuieyUcRaJe5GHBCIIfFvyAMf5AJVdJLUWFN1xs6DcA eBCwH UUnSMqMXCNtOxwmvvxFkJIYMfOxaWzkflqxAyQn4ACBQOFbQcvEYmQFeFFCUHFjMufuDDfLqOMIDCSXG api8G sGbCGbYvRwVEb1DV4n6DsYpELnKgMxMNf5BT1x2hDKRGi+GyQtMXmDyApNXw+NFGr6xxUSFs0VwjNy1i OQBJg 7izWSOXiFmxNk4lHWZGr4jyVEWNfAlPBJWiEvqJg0fSwOFopliGmSKg9rT8RUrETUcEiYTKvhHXzNSuZ XPAgS ZH5JoRNhXBbenFjguEBrFJWwQ2IlR6Ng8cmo5vbDOOF4TJuK1NolTmFVFqcQGDhWt5MU785BQs1W7rAc 13nkM 2FmSauDpOXZYgNAa6FSEPfEJpGCeyJJAZiCLrGLhcz9SsVB8OQlNIjY1Dh1uSjDXKPsifUQj7DrLxW9Z Vgdsd nTTF2p8NlR0VSuSduxhi4Bq0YMxAzYVYAnihs2P8MqYxM4Z2eKypmXYxMEuXVLGKBsFhpsQMyBhSGcGF oGtEt pmem2Ez4AEsOJUMczhdGs5YzDvAJTHZVgJkFJZMrVfWVFnxNmRY8mxSHpO0GeO3fV6q9jJP5asIYgK8E zA5i3 zKTwxNE0J+LzA5wU+l0uWS2mc5VWZm1kM1gY+L/B5gc+l4yZQk8uN0wW+D/B5gM+m5aYRo9jW3gH+D/B 5gM2j TdGZfsaVQHAl5lJ1qV4OpF3h12aWEHXdIJKDrCpXVoZ5ctE3DtA7IYM1AAV/G/4ce4I/y0aC+m5GD93G N84EV 40K577QSpjRTyvGIdbC66KGmP4grquw5WXmHeG/ueDzKapTuH2aqljYFuFkzQdZ0Y6h/vuxkvwaI9Jli 2LuRz K8Ilq1XFQzfzvQL+4KJMxQlZeIqZ8DmSgo1lai727KyjNboowXoRdfrOK3WgmPbkCReXhAUhYWef8hN7 wxUhk Kd6oLE9OwqoF6ztW2gB3Xdmlfa9vhykPer3C5PJ6/X8tH+ZLXhH+3AjlldfW020Uacku0uw163MShAin Ed1sT TkocqTu6WROc990NLFU+zrn48los5eSk3jhAi0TOe53MP3uSr9gYVzFlH0EE4BaQa7hp+ZTrT0xdLEYg C1p+T uvmtNdEw3ntZVmbXZ4qS2eF9GauEyxvT6LtWyn6KMZ8uJczPujXfsGk31t1Ei8pFxxXsUBEf7OJniTBx mxcah sdWbhc3+bEaRS7aOE8RTQ5vt6blF98hbeQCO3dy6DMhe1GWTyjhqmEXl+gWuQ3tho5UmVNpJeEhWi2Tp ebrLe Ioi/RVxMnofMT97et4G8e6cHGE5aYqoj1Uk3h2x8W4k1vGrSig8NyyKIyqw3HufhG9Fp7HNriE+m+HH1 9H319 vr4+Q1+tsd6I89qp6dmo+ryQenYMvVQVIwctbsBMedBntKHvSZR2y/+8P3Q4JKL2oaEpVusrbwQ3zVAC P7oQX z0ynCuOI5lIU+B5VRUweWOiYelIHvUpukb5Jc2qkv1SvUfqMm72eXzbQRPJjrNsdrJ4om61Ujsgjz/s1 ZDQt1 gRCqpCFKy0z+jwWeN4RiVx0D21g9d9tDwVqAUc0jGPLiEGe+XZKHcLltG/qjJO1olX62+pnHB4X0Vh3n rqTYz aE6F4Af7ta/SrbmJ+YVAMSu1qkZsZnYKfo2fvw+73AQWLP0Lj6yVIIiVRdE+brDaYuy9/4a3d83kvKeN KmZFA gZm2SlcJfDz+s946Xh/j7Zf5rbk44Sxl1iYW6dIFheWThLVKh770Maa6l1EgAGKGP7N8oQ0ZYJgzw6uC b4d04 CJFtT6bbgl9xCzX88bNVL2XWxc/GdyXo5elQ4ZLwjE7+MeT58C0YY9f2J9GGdcxSj5eHbn/+ux7CLIZG S6in4 +nTl7faz+HsjtnKYuQr8R6P+knopDSMAwI9dC1vXoBP2yFL14blFgiv/c85yhem/qGH40aTeZ9svxkV6 1c/7a P+799hnf+r527W7kEsvPgkglPgBOPb+vJ56zOdZASscIxA6bAniKD9hvE1q5xPIY8raf3jaglI85cEdW ewbqw He0w2OWCooE5/cjPBbbLqh35LXyZn00ZKUucqshpTbptzPLDSHA24Z5udz1yyaZEhGrJRVj8ylG/79LE //6Zp H3+m07k49JZ8fp9/AGBaStgGEg9QoUjKKaoqN3jfvho65xMXKrhxdZ21xpxQIqUKUJ8Ji1nsH8c2lP45 iF0qE LeWZrWy1Y6zascFyitpJN5QIxxDbp1LdVLSdiFtLwY5DsKzxyQZUNZzAdJpbTe4+9iX8qtAy3s7IuAfr AEPgd vRSMzfC1yr9qwxwYmexhXxxQ+HrW1cKbJDNFJPA/RK/Qi/MyJ3DqlK6TtPhvylQtgX/ewHnSQWbQ3++y ksUy8 zOs6iMWdosX1nBuvLdAHiekoAFjpZ6yp+/+uWaDu3xQa06VRJSQgxVm+BbOLSL7BM24yMNN4vd5pZxoK foIya Cztpa/k/f7D/i+mhhVp1gM6bTEi7U94cKUjb1dtr4EjL+vZesVDcdSParHSF+lt+iJVeKIcobqlVd9r3 zbPIR 0YAzvjwFz2/H7BPvKgJPFauwAm7Gh0Wk3OED9noX5T4FB1zUa1loYRVYfb19+M8FNWDECFGgqOzJ0n/s nj+BS +i7+mmC5+0uchZ6xt2O09DP2sNYYL2rFFpVptXF1DX2OKbxGdGrKyzgMxMWjDUW1bm+Thorpe/45ez8KNcc zq9iD 7As+IL8DI5lx5VXJNA+siv8we6DseCYvvPQqfLK1TcPXWan6d86olvwtWpAMo6+V5ZDnzfn44558rDEg TZE2y 2KwbO6ib1WvzsOZySlOuohwTlbcGBwMp6Pi5OO3xfRnmQzduxue9ofKpmMtxz4DxhMa5hSrlY/KF5QMr CCNOl Gk0WFXyyWYjzQ1HGpd+okRM2h/PSTg11NDuZh8jCfVAlGRv5ywUisYqyeEqZo72q/Lv9r/Is4+Hya3Cn Sso4d nJftaBIzR8qF/5L6k/k7IKvqGwxO66dfVGVwIuuky5d24euujEyrtULbKlezLu4nOiV+kX+U7wch2a7W TufXi y80fNX/q9/kX+4j149QQMeM0G1L9R9E+prc7Mw5h2CyU5TmtfXtofe+P8Tz2yz0J+ARUeuvNUhGb7UAF yUh2F 5yJ2sJUl6D1t3pmIZncZ3H+YL+k9lmrNsn9j0xT9YwbKApxw57n5Ky73/s3cmKPiDU2ioSw0HV5o9cxz 5HBc/ ScUgqykXfXWas2lqqqWtye29eZiSr6C/94/5rt6UFMMg1UD5417FuANC903cgcD2Wv1VrJ8sO4JICdWE 1IP9M m5KnWe1Th7WGXzmfgfD0ckDnLeyaFC2kN2Kfs1rlToaS0U15AYDdCzrhiWlmhZVpmriYIVLgtdU8pBEl Ux/NE ULUtz+HwlHcajxstYg5xA9Vz+HVIg/lNfAK/ly/kj/En+ZQ0TU8Vh2F/5N/yM/n5ggDcflhHDwJCSRNI lCvVS FUrM7L30iXiKzzwtLH2RRxrk2CQNM4J52c8OOBxdTbTT+RR2bB1k/vj5eZ1A7MPpZMR9OQfahCt+VVn0 l2tWw IwjYVI3Kq/ARjOgR7uyu8tVcLcf1z3IPMS7WVT/oJVS7+lu2JW0cI9pvffzYtZF8M+ST3iyEzE07xFY4 EOXLr fj9P/X/hzjZDjVkU6WlBvUPvIR8MOmKi3zIXbEthvN6vUAP2F86v0NMsmpev7NtTjJaptW2+r77tVRHm lN0HO m9BohgmZxi3jNDeZrx6DW6aBzOLdwAklv9cl6C/IxFE+Hh1Rt4zaehBzZWgFxTAG3s+ogqew6/gp9jk/ w96SL ncXjyk7fzYNIsd+hUqZ9lO+K7N36WAB1/FLWrcF3akQpRGoWlHKs/xP3m6p0OwpFzcpfloHe3Sc3t/1T 5Cq/L 4qgNlPmoCJxN1YTmnAqt5gAD5QibNYbd5NVkm2UnBPi+rFuaWsiRVsbPvhyiNMvNE1w+l6yn33DqJ9fo 0ci72 ve6dHTPbfvJecqg4tcjo6ly6PXmzWpkLTd/paGnPh1+UFAh5Dkh3xkLP6dkSt7Z7d5p6dhyrb+8W+zSN hmfbR WkKT2u0Ov9+XZauHBAxGGGBVfnzvubv2h+vzwPZ9Kg7V2p7e6Aw/S3D2/x1YogTLh2iO8bR/DOoWopAR lyE8k ziB6k9IfQL/s4z5a4zT7xeF+9yGYlfJFnbQQanKbSlBFDTK8k0UHbwZGgcPWjsEMwoQRlvQEuiVMciSL miFVm pYWevKCbtPHqvYSnfZNgkOCuoQEuhWLloQOjzUGmbWjtOE076ucpV/i904WmWn9rEjKCWF6iEFkX1GJV k8UdX MNvmcVH2udgXQuAvt93yC6apTocabX+pnkvkW6fZUGSXyb/Sj3RKql7U2nFvJcTLuSq0tvuyefMuPGsV HK12V d6pVMWrXCOSYbRVoUH0NXfXBEOOHCNfEONdDkcNgpHoh8lF2xFjvk+uxvAcw2SKch+TxmOOKWCSyeRG9 s93zI r8do2vIvB3gpGW9Sahj4Lqg5+tJfhVhaQk6nbv8gW615h3YkZrz4QId+2ta+8IFgx4RzqmpYJAnhvWLk 7Hni/ JLZKMMymN3+37dG4PEmhYHu8z2A38dJdTjdRwyvVWcNNPlQ8WDIm2ViWgaBGNv4alhcmOiaylSs5pvwC jI+IH ziGy7yCNsx4h/HmVB3TIiUdhyulJrFtuVIlpj0+6Gb2IxtnG2qg9bEeyZMgqioF2dsaFEVXe6pW5TzcM tyVhH 69p+lx0P7GN1ndrBD82yDe8YGM3+16vjJDwM08sk4NIJek8YRrgJNKkb2I6gMbofnLWF2kaJQQt4Y78W pBtTv GC59WroM8l6plniUVvIdk21PMqeYTBxEACcCYyZK7xhjfJm+qqeXhf9mS52lSErQnhS3rZWqKEFnPIKu J3P4S qYheuxfJXiKD+k3/R8f6dVLez42N6OhI9qMbS64oMY41ZLuPg7WIokWZlSMa6dMj3n1xFCL4zf/m1Du8 xTst2 3mfYMHs+WibPYXnMtkKlyYTN4hDy1qqTZOt8a1bkznLgpFN9x+0RBrE14DH9HmjpcI61yoyOrySMaJn7 Kuwy8 +bmJF5/Vsik5X4qg8c+i+tcRfSo4IEpCjy2erUVgk+vDGpsb5xBhFwpIwfq3pDRW1xGDzB5gf2cjmYTv PkUdR 7QuibYdFTWgtOZC3VuhR4yHRYW3NHML9RKPyeI+ovtCvI7iyxtXvwvgAgBMhYjxMfhI1Jg08P8WsGh67 oFfOv TdlmSXhvh2Pw1m5CtLnfWbtef6mgLeeRPNjpzgUJaSQB22Fnru7WheR98bYHNFkBDcHWJMZc7IbUWmmX 4TsSq iwXGu3ry+/hr85stltyPjwR4lHi4vMRqQIQ/nR5f4LhyL93aX5MTsPpFwS7sIVYLcrwhzD3ILX5S6AxL v9gqo 5y0rRWA5h9o7mfzLBM34gsr1hAJHtt0xBgnG2jsNr56b1f8hhQuoWo6v5L2wkTCIPxKluzDvkBoSR7+c nZLlT tdroSyyR0fUT57nIiSTZn+IGb93lQanqr7DsfbyoDFFovJeEk+R2SzqoHIi32ucQdH+V7EwVnOaAWTvI ySjaF fMt4WdGsMlzkqX/AuiOTqhwGyOc/gFUFHLC7bumpLJtVyy96sKMVcKkmXWKItECwmXquGzk2RxsHhbq2 Upt9Q QyZo6tOpAul9ipxOxhpqjRudM4UICL2NYThUyrEsAyse8kaVSPAGKB4uX6Pszj4OVkccGzvifQKU7wuG xjOJM ccfjpLjErlmQHV+twIuRLVEYIDTthQVkkIrhujEMKYgQZJ7gbVoXpS3jUe6Ow2NqHkTWpSdQp7rAXk49 sBvXx SIP2kuk3z26ZuqUo0fvjnmqUlCTOHKsuIbKXQ+CiIbs26oKQnn6xqjfJx6sus7w507So5RogWmkTrNjJ wi9CG FDAqyXhQ34lJuLj2/IyIfQvTEXwvOfYldcr5rCwV00l+HD235gd3ZMxVN5/CNm7/jSKR6x18XshnomH9 ONuvC E5nyQrzJeU2GN9GZKJ4pj5kL+7oP94Nih6IjjW3SdQh++qv2YZ+/gLZe2bIhLJD2AqrX1M75Vk1spxWd 5y+Pc ecvi/FhqxG0llX+952ApeCH5vvpOgG9jjY0MraJeKcWwacSl3kMKuo/2Wj6w/BU1wuQUawLp0WJkwnG4 M5bFm dMxwDnLmvqXjp95Lg9zr8TpbMPLMglOlk71A7FqmgUQECES7R9gI1svXj3v9y3jUXh5QAhr8ge6ksEk9 nVJWy 3oXJ3kikFcP1cK+lNJO5rW1QztO5w5vI9FbfD9eCHMwFPiv5becj6UrbZql4/LTM+PCrz14rU9+d/2GU WJWt4 gkddiMZg3svo0Iw7Dh5mNqPOkI4aYKaJrmdlixkcb0FJGIQbcfMTbt/vSpMSE+MUs4gtkccSJ9SP4iF3 YX5rs WcEW7vyB9nikNLkoZFUchCXwy/dra66dylEB8AbrWcCCZ3EwHKTgtSm6Uf8sDN5SH0cdPiGpyWJJZJMu Jvo6T EKH7YoWzpetsjIAJYYLp+AVVW8F0XbMlNXvSVZwrXLElCEzWUoEpzCfs9V5KMDcki1BTUTjELLGeIUTQ tZggs 3i3/pwXICBlgvMAfTfpiIQoZZF1bABYMIYZsr44l6rPvxy+B519PC2UImhM1uiSaH6LaBfh09CO7ZGPx 1rvoY 2KKegnldWsbrT3E8KcGxGqleNYluhk2jo4V+4IKCo6zIN1X5aR+jXQ5p7k8U/kSteyRU8UsJnhUHbaJh foLYR co7CdWqTlUYLscDJi5nxNiH2pvxOflsOl9jYeMs7L2RGPLKLScdp/3CsmxUMo4edd+TbzGp72KaI7NuQ /Et5b mO5pBf7xl1w5blpxYQJ8lC0oFBKm7x5Xz9Eofzz6MblZ9kkXQ46UUtpKd/pcHqCxAVIxy8iZC4GYG23l pzLIJ rfdXqYCmGFCkxvrRSYMwaptuCJVsxLJhUvSXZpHJbcmUJySshrBQT1yaIdaYKWmC5UwU3z8BiGOl9QaU Kboph huwA1rMpmOxbGnkLc5sH16LvYa64wdllLr0d9/33/Tiffany/mbd++pxIF2mhTFPvKSpA4URDM4+gitfaN5I PLGHK xWXyU8h+AGmUeOsxEbQ6TmZdO5RU1+i5bZw2oBWCMJXZjD5vYXF3DDT8FN28uuerHYyYQcZveH+YN7B0 pH0d+ 5q8GCj0rCYs4CrT6bkkDtFD2+4vM1/kkDC7EWQzDoDHMKWAldeq6r/aeLMLS8ABdkXnB0DwhFcnuqz9D 2BOdg 8lsuf7cSjSJkHSzztPju3prsMM9EH6hYWlTMrT+CdP8GAbiGWaZZpe5Nz9uOaNY848ctXP6sYb6/Oyck n4TGq y0ugwGPyFtkzoXFlbIq6KsTv1w+Nr8lkuvMrG3LG95iRyYCsY3J9wsGZPsdNtPYt1+d1uK7ilzXyAGHQ rjhU+ g9tnd7Xtevv3bzAni4lNY2a8+8iE39AqCbXCYTbNmQqFhUy2NeFV9JlhpL7sC21AYQq0tjcWFsxe3Giw 8NIms W1aT5fO3Nm7DUys9yFC8swy26kMVIbTymbzjJs3ywMmbMaMv5l8IZpSF5IIukT+msRNoPH/kB0wW/4/R EYfGx cbF+lqhF8tv05qULzNSLsAKAdvlACb88IGNqDm3i0d3HqnXigcpL+B47UvzTM/cF1CmPg7cT+7Nrmjbv qevdv jYDPqxDZDaD3ZV2WIe8NdKhybT9Gb3d8pS5rCeovwsi8fYPBhdqSIXsd64rJggphKgRx2YhknqssscPK nOArI xcHoEFtCwBSWbdEx5TCUXwzYMcM3Ry6sYR9wSHaRI3TbUwZaohOQCblB0awSF+qA2lE8DOirMOXgCiHf Y2kYb srHoouTk4JSRIZ42JsCkruXpcOQmul1INjJKjYaT9trYBtu4Bn/jxd1iuxnlkiLHy1arMMNqCNehsbpT kPK0D ETnrV9sMD5Of4QG9pwbOlenfalKr7T9crn1HadrbyemBi3wk3oo0HaB2iGV9lDFAzZGzgUPSr3ouuSTJ v5o1e ZmojV91VzRg9SQjHMNUtKlPUA/YO2OyBsGn8NoRBKabdyzqYfl29P9c5NX0Pa6h0t7w3Sle1Hg8HxbTZ NuKZH i+vnd23ldV0fofu+tfa5g0C+dXb7wwmRx7EH9R77S/erwDMA9WZFNlVF015baWLVQeZh5W5DZjCo7NHH m0pvt 9zchoastMQ545Jz0q0KWjdiEH/CZyrMSuOIEU9eZmod+yauc49q1KHr8BUnzyaiuMVDb76rhgqxqLaP1 xyzei z4ARli3QiqPKR8UJSZhtHI5EFgffKQ0YmuKl/GBsKUNmmpwgVLzf+K6nwkxYCW/E7Celee4+Wg9Njlwk LjSte Sto4pJYP4kAj88u/kk5E5T7cfuCVgEqFm8s9QPx30aNXUE/vuMseIKrftwP5oDARK9iSY6l+kwGbOtEV lLOjp SUdIzZ5lpgKcB7QI+4rbKl/780uwWhaix7s9ZJGH35qNODy0KcaSXsJOcRiC5mW/pjkd4Uy+Y/Lz0jrK omL2r C+7j5Uv2nGK989YOksQpO3tgtZ9lHHvgwcUSwjfQzKF2xFe4I7Vlnsced6Stv5zBcyNC+7y4ynpe8l6t bhrRN 4u4karP5lDd3T0qYxvVnVsA1UtxrqIU8Iyr4go1DjcfDWOztEjhXI6Eono7kA0rLjKwAXgbkQmjUAiU1 N2cXF 4mhqRGh+aXlyULRWGh+ZkpB5J/Q7LOkJ9V34IsN6bJRUrmX4NDPsDkdiYCBsUqvUSs7AVs757GTiWZxG yUGuO VRLKD4YvukEdblCGxqnUxwttZGmIlxnd8WJkbOM2u0B1W9IeIIX7d3ZTvwCbVtbgPywzCPHWhx3ISZBa mB5hm p7j5ZzLE2HQr+H3f4UB2ArbmC+eJO/Fsyfht/cLoq13KCWSVjFeKkpBI0v1blaSpQSlQPyAR7sm1JB1t ODkwY KVzZCTgB+xR78x8PcrEeFXLWvZWOBSaepjDOaE4P9IRXmbxNtma7/sVWGCZlTynPHWQsn8eHJuYGesfz +UEvL 8eujIR2/NIp+3uiwQB51pfj3YLgA6ib0GO10quq/n8CyF9MYRg0/FO7C82/7+OX3qr+sCa2rg5wwnIr0 oS2p4 KzbxThi7t7zaxJV1Xvzz0jasaZZnPACK2+MPLy37J7bybMw+uqk0xxDf3a2SmDuzH/HogEoh5NMwBfFR 8BF8e /K+5N+9toHZNXVzSX79YHBASHRtq8IbY4G+IHg3llBOsZJS7w0NQgNI+HgNFy0SVHQlN15UZqbZEiWkx KekJv 6ITzUljEvgCYmpTNyFPm/rHNJO7PwLKoUXHgZzWM5k5VxLZ1RCZt/VWcansRst8OUWiBvSg/jkJ4jnSw moNTs JF8IMsoDJCGoStOWOjkGvvWcjAgIWLCtiVjeOc3Tbuq6SA8bltw9H5bFvN9GLQWy83C9+Eqvjod1JgP/ 87QZW cWaOs8Evrio5bwIPtoq8rknlh39J/UmCJ288g8BgI2d0S57Cc4rPPejpBcbZxbiSIKYOZczE5c/nK4Kh UmU1L bROvJcVI9T+9rnyAobQ0DWlT1Ay0V6jntA67G03z+I78y9CZ+AiWLK7QFWtoT9OgPoI0mFMHUSXi2Vkx r7SjY pisjUl+L9bYR3Hw9TEFBZHwzMLzHqrUjw5oVSWhrVZdbuPEVDxFYDyyZOvfNWv2RcSd+CZu8bbq5Jdo7 mgFG0 aeN3NGk9Sfdmu2HEbq1O8pDphqUCTzr4t4JzxRJ6kwaNCrCQ3TReHtiDs4ezGO/DC4SfeGoDmENZDGWI rnYVR /ilmE2kDmDz66Cf/q1kG1b0ehmBClHcqRmEqgMhV+ijrvHJglgEgsUZ5KMwZSy4RL6uUCkV/cNDfwiJ9 eV74q X5tA3vfZ7gi0BslxJnQRRlHOm+O+wy9b9wp7r/WbQBQB0ikQRIrwF2Fk9EHdBex6QIM8YBAcNKgpYF5s KtJud Qy5BlcyrHDiRd1faEGjuCNKgz8qD40wzypIEfMioevdeZDnNFwlEQxw1daLFiaKMWSH1AWRasFGQHzP1 sRCGl TzRvq3izkgNrcnLSPSH3CZIsbSTHhCe5lwQ3yq0/+DgwEDTgwbrje9kcOc+lzLqQ4BzB7YkRUVlibO+Q bZe6j v9ARyMeVTjSEpP7v9ThQm1OBp0/RgDJU9tFo3gMlhjX6rjN8GwlJ3o51P/+TpE+SP87/NinKbXEnFSV0 cHR3D MBc3wPifT4beTe5yysGzZBxcgrwcFRUPkcMAZoFc1YKVza24GRY3zo+yR4CUa1gSRTKjBa4r65o9UCMH l90BE iZ4slwmNhs3vnBp3XECAE/0fmPgYSERfC0CTZuxou/S4slmMNHFvacrlt4/YFjiZMeDzSeeLh69EgO9t IdreK 6yO9Qj0aDTL2R59Fz8Gi537Q2TB2x1/YyzEFqokrOa1BAx9bUeXhSI4qAZ0mFw/J/93OJpqWuVfHY0DJ bouNF bMqTblulZL4FRuefUixG1pWzWtsGWtZkwa02/DrE8Byg+JluszkyJD++EN1i5tIzKvqDixGATZ3wqlu6 HKpDz M/c28zgbwev/IP5Um3+uPzZ+kY0sj1F/9hlnakLhRa2oGM8bjYxdXsCveRcTBO9BZXhKXHuoPqU3hs82 OCE9q zAFC+0cbxQEvE+MCiWfKYRyrqlY+P4soEOPsaQsmV8G27CgbYnize4Y20QU+O3MOQxOvV0zv4MBUrt7R 23ZmT LWlTzZPNCsVvm9rNUspB0qrE0w0ZP7hkdQf9/QM0ajJsPxkHp7ngpi0xpQehe/kGtWusuWtFlWvy651G WxLUx qAH7ndTaCumbFn8WjPU05fu6AFDIuEeXLPcUWkGm7KslX6z8cpBEQ7kP+wDOwp58aVv9T4L3XtqXp6vw I/r0i GbF5jpesgVytmk5rM3vtZiXng2JWWWfvF3uRQgP8molN1Fg9wJjwVoxW6gyFsfohfY2RsZZD7enjzA5j YQl/x XDK6Nz1zSLmkPu4xgo9bPdq2Qj6MRmfQHO/de4wVgS/VMtsItIUrLqUViEuxZGPmu54PTEE9qAdryDK0 1oDys 1o3sNhzeG2OU+yLvcF859r6ZZG638+V8Fn8gcp/eObTzsSvVc4EB4gPMBdqGp+hsnfCni901lNxy/Zez C2SNH GazICZkmWpCQTbPrCpAWpJ94eTaavj/KcBoiFWTWi1eJ1quvemXZbKxl1imDBoUlll8rzW0MNTWaAmVs odhdd VcgNFiDL95ts9oNt0Cz7h/2XMHIcEYhAoTRhytL1WJlvYrDip9VSBI7FRtQTuRJJj/h9twaPgsm4887I 0upJr viKx+alVYUAHAuNm4UwVfDFzAb9QVtLRAhKGzp2c9FNVnayZTl1xDIRnnI5F4YBahE6qtzlsF2FxcgSg Kjicd uzsy5V/kAVxbkmpiyIZwdmyPLwqPLGIwjTjrlaRDkWzovLftMLAaMwHac3O21JYWX5KAgeXy/y3fzW1t eXllW rHqsjul48cFH2cGNlYKjRqC1/UaTWsizigh4aNWpj+39o2ex3Wt2c1u3qA6sFLxX/Brennan/N25s4m9hMcm lv68v aChW0egyWb9ytWbrZAso6Uv6xbGU0SC9sRWBjBqZdWmTTDIz5tjW36BePG/mERXdGKiK/2qgLc8auhge 1NTnb jFYduIj5P8GyUtTpu1Gs1Wn0S72nzTLmCvVCYxkDlIUig4zOtptezKSEhXwVhhqrp+dUVhHYcHG6mtPp bBByM DMvl9L3B+63VaBLfaUw+9Lit3yaZePSd+ag+2uOkkW2jCVkOcMdw+FLq305afqhbelkWl7a31oBwQycg q1/z6 xBsGeK/C74jWmkxxLyBR5yAeQaHcfmtoaSzbil2mfueFSnyvLaS6nJp8wOXWweu06pudS0d17JftaFKf d7fpC KBDBrxTxe8VUnxL1+spMr5DHh48S/q3JU7IJNkZWn8EBPPYVvK4QunrtYpGr3xjuyAfuaEwNHZTjKJnN 9iIyB LgMOFGOESEUyEUPKDSbljsgC1M4tQfD4eXvpExa8JmL3tFEpnW8OHONAsKJeVaqGWtq9bIUjhqtszi4D mTOkt dWZ6Y2tHt9DmsQRqqZ8rKcBu4sYVUkcJOjaMTgkDFuGFOZELDBNJvDqIXADFHXU78BkgervcRWhPIMq4 RZvF7 PCzd8veSnIEGeXOkQYcozPuNszaVfCLUMKXG9KhIhasNQqzqdmVkoPBKeLl7ASINCQmp4ZzcFxB4ZegT tcZxx jxKlzFP2vjnyXzZKHgZgEhPK8t3G5K+JTF1Dsjmg/Tk5SnbLQUMX2LmFfN4LOKFBjZE+Djosj54nNEEi GPmIi NBVatoa1e/WmZU30MQCW3MebehwCbgq47RFY3Yxh9bXYZ6uORPkAOMLlR4rExIm21ZMnQmIYxrOJsQMd 9Uj58 tPWFi5RjL8bhB82gaTTKNGyQWsKJ52fBZta33Kl0h5XqY4omCV8HDq6et1V+OhAaEk44B8gbYYaX1uF6 N4c/c kEfZrifB3PfD/2hVO9TvxO1yvufixlC3drqAi4BIFlOxbtyvhFvDKn0Oj8VaAN4Ujhphrk4OFEJ9Tla2 OieqQ 6HU7ANC+oPEfJFXPFm+sWBXHKGMbM28sIgLoDQDOB/E8lA0tXJ/QnUBZ/zzeOoCyYB65x4XTqDyxNdaZ ao8ak NAtTqTLlmnhGLPojPnYo7dYKXiFmt7zgAskmFQAQFtQQNBKByUGpWzWG4MAPtJcBNYnpSDlmlDe+2EcS IyI3g P15WuHifaRj81UMSd4TvDoD8Nf0wfWEYs0f8UX3G2lK4CsPc8klGFvqxXC4jYI1iBts7lPR74BbJ8FlT NQoWd HpAlhylevXuvm37u+WUK+UpnRmxBVzLmUHyFNm3K9adVvQH4rcnz982ckjehRKWXy1KmcKoanYT+VJP/ A83jZ FzMVT18PgX/UHakYlVQf5rFuzpbLFn3nvmm7iW4yfUcTf//hYDgJeaU/aBUI2KtB4ZS/WJSxCPhhPLcD rYeju kwz52tlvyRtwksZY0Lty+pvyGhdZ0bLwfVpppxhUUaZm6GL2R6YyUDqkH+cqNvfdy4SguGP8JumJaihA OCZYm koCKePMQ1rn9DMCayOebSTlhyY2XsYe7CvmpXFJUDPeYoLiyYzWY9SCHjJOk5VkGIMzdtECAOxk3mULI U64Nl nMQXybYWMtEW0vWCEvXG4fbGaPNpTyEt26cN/EOw/P+6mb7upAivkAMOnrDMKsHRHaO/iem2z9xsukJs 7dIso DkPTppw7WHyuKdtgygyIX2wIsDbheKSLmGD5RWWgMZbBbllwFA7NADTIDRDrJNafC5UPYvUXSt+3/fej MdZ20 8FOjHSoH53mvb+v7/hz58bo0sec3RGt07J9879CvtcfG9eH9P2nOOcqkYRar4yG38GtKY7cWNj/VnMr6 y8rem YnVEuI3t/HyQFovzI1tVGLUsz329Zohmu7SDcireb8/Tt/coW44P75YsXsWX6IiOl4N7aKeWxuNI/ohX +ilb4 C9khv5sEz0XR/opW+Cta4a/z5zfyvjf8AW6Lsp/0nqYR+0v/ZvoLmH/LWEq2IExjDIlepotE50lslNa/ Y/oxn n9P0zT/T6a/aLhkfu6LqKIIJSde/WCGzZPkTTFtcO2k/YXbx915n5EVpjpbVzA8SqNd+GVNw5/iBtP0/ 7yeLR 0vJk8Uy3z3N1su0I+htg3k95c+NP0GgyhsfmYrZ/lLkmkd5qMyMfka876j/ndMZhDnLXGAEpbH9NhtQ3 qGn+v KtxeJf/11TYN/fuj2AdV2/zKEZ104iu5zTg+CSsnw9oE2sAtfCy9/Uo7/Db4lg1X9qACG7zPp2HjwA3P XGBgS 0hxJtYA3BVfNFHWnyDTIxdOZE/MecxSxUjZ8/EeLzgvO0FP3bYJWkDoA0xCiLhHvnq8hbb8okGPJYOo7 B7Cb2 mlC+wl001+jJzJwQkqbXTOf7TKtVExgzIj/pvbP5si1izQT9TCX17S8LO2YSzKVhfwLqH9pNTHhgR0dR 5zFRD h4HIc/158+PtWUVUf4FJNRn1SAmfHoPBEeut4CiAjwvUXrX/oYezJBxBYgDcNS72m+IjIL9OQOWwAfc6 O8ZA5 zHAUrHj4kv4GlenqW76NLSY9LRYWAOYs3hSnaXVMnZDU+uxyCXqlgqTrh2AlKJ0v3YR5kx9QCHYs4Ybi dpiKs d1giXsfWVv07cEu/CgMhHlmDyjmwC5xt/kApptb3d3AsR0BD2A1gOjf86Pb3G6yI2DPuQerL0vGpJ2wJ th+MU /LyIS1gr4w/XJ0V+sIQxzA33Nicf608QgFAs5zLX56iL4jaOX5XT4H4waj3R44MFmvnpK3qE8CkSv4Z2 rHNuo ki0QY1Pw7joW75eGjr3HvKaXTa++eNeH8Oz6bVP1R+JUkQFpoFzNA5vvBTP8T3nnsR2Lh2bcns4+RwH5 iF2Vh L4lSK0IsXeK8wCMXe4yE5SncnNcwxhagpu1Dkt5/OpGpXhmIl1KCl15RFMdsZ8EdEka9I0SVWddUS8S8 azxH3 ukDfM8fgoJeoTQiJNYr3VEXm7YivPyEYpozyZaVctvvfgR5lK8Do2bNdzmaZ0niA4AjQdKx0xHJcV1fo qU97G mloa3ydsq5u0/L8grVe4ft6FOY3178qtpx84+hwjU9ZIVysraceB9C0UJQkGeu9+2WAM1KL2PR55zAG2 vnmqZ 6/qnfvpFvEGWKpNx/xND5cYKdhWvXledvMa5GArA0bIf2i0Su+/X19+w8da6OHpQiz/RVMNtef4Xv0ie 6ofKs zdJwFMltziIKwfglNDvRE52DIFIN+Wj4mLxy1WjajPDyVpOPopeBOFoEekRp47y/+B4sVEXB8lsFI403 e1XvV pjCwiDqe8gDJ1PsJqab7gX/nlgw6K568xvpk4dJb+ZTxp/bTojDs8Agy25J5aCq6dgKBbwhS+9PShJrq p/m4U 60p054QCVT5beTmbfysC1oXq2XpTvZDp7CJDonbhOBM3h29OzGFGvhxju4iCljdysZRb3cl+ZDu6+Serbian juq+R NeRZk/zxVdvlYByFB5tky7yndEARQROqbG77LcW3Q9naH+VItx3VYp4Rfg67euGEdblFb5vWctW+44sz 8tqGu 16SHZ4RGjOCPW4p7nPpoiRbNl6cDrwx8n1FfTbfJhY91HaTVcOhNK7qgR/dIYeV0svkRVi65cwsK+Tku LZxqY E+zxLlxpIuUV1H8MCAQHK26r8Vmb0xfLO33qt7WTw5XEXfs7mUoSSLBbYk1Kuba4BUHbgPL7ull5EAvG Yt07m K5uxbn6ZCSFvN9Wig1lJgkbtAZcWzy19BnuNA7zHiEFUvmXZCanZvbAGrVo76qd1A8iKgHw2GbZseO+1 rSnZc aHBJTEWqga9sdt0/C+Q65G5l2wbMyjRshVm3qGyoykfGCsrpWfQG034LdphGnz6efVTGxvqXM3R/zoL3 3swnP Wj23TAn9VuOuptjErCj+yAjIphlswCOMcZpYkJDDFSHl1Yx76J+wsflW+AAmz84ug6/lII5VF8l7VVv5 NI5WN Co+9vWkgRVLcPV0prVW9ygEaa1D60w6HJOGfNbI3Rk1HMnprejZLht93skn7HCKXaZG4sU7w+kFcCPUy Y0J+d PJM8vOum05tlllvmcN9Qko3kyONWrJWNJQyQGA90lOMWGS0W6ovyHMUlKPwKV2MvexYu+amP9abaB1t4 CWZpn 8DqzInuwxbW1sfbRXIyQS25x+LK/P9czFG8K8Fxl7BNgvlNyh5vEIW+hlLfHO93YDSr+zkd2GK4Qi+59 i+0Bb JA9IruIZI0Rq14CWlAGweTguMrKZknTDF56XiYJtaGpQDxYLqlS5hKb/PDnxRCkMBNHE32xiI7hv1TGO OD1pa crwZ+q2mSIUUAsr7aiykpc7m7UiJMNHzk0wxMAMTc7KRi8s2pN790zlaw+nx1RMxVcOL6vaaApaAJV9+ KuohA nXFHZkkvowymyIeDYe+h/F4KGZIqh1xZD7yOqVEnCjNQwGvOIFFRPqKzsJ7mZfFAHAMuziSWaOnyDd64 7EYyu sPIyUe192azKuiXDxLjSVXlfHx8ddPydrdcHK95ALonCIDpVckmZExVVDK7qngyd0d0Lhfq+RSZaXeh4 F/Iq5 2mfu9XQJgXREluuTDSOzMwaioBTKfcHKBW2nvZrAIZVgV6SZaZQxm1tqpdI3poka1N8DEoHDsQLhgGvb GqFVX GrcCS5K+cBpR7J/gRLNTQqAQ+Pd9xwfra2mOiDw+5TsddLsRPDnnT5wmWCxyma7YbK8DQWHMWcyTbfD0 6A2l6 1oMEOcn3efGyfl47o1exQyEXQrGysLh1Ajc6Q+ir9kh9cQZ70IUXLQDG+lj+eRi48lMmNawqciLf8Raq PcD4g GEFhECxW1qRHD6H9tWKN0zrOVZvXvRPhxqIKJl7KTVOnVHou6xzkBhS6BW8XPfFa6I8uFXfzqEKjGBsw d8IHO GJK3SYzk1r8r5kz94Dkn4dBbQyXBlTLRqixGnyksFoA+JrS86kprVcrv7OBgaMWPWsjBxgH4+vUsGZDh CQPGA SqlC18q6zOSk7SMVAHhCPWCc0tQPkeSugLUCiWcEHDuAR43GaEjc7LAFtNfDsuARUMjekmu00Ob21UOo gU3qG FDslmieSuVR642jKUeXWPM98yMeP11w3cYF4IK0jBCHA89tLRhInLOy8iOS2TRJ9Pgdcv8SvWFxwPn38 Vp3v2 hOVbEvxl681sCFbUwyLZvihkgD/Aa51d4vWaTA2As6rniNESr6D6nckFBAPE1u65m6CqTifwiQocGCkN yjVWn pvWSo74ZFqm05Jh2CakPEdoaNJQlVlGzFxJ5IpZsit/Zpm1yh8yWRlkPdwl0zmTpGkzhnIhj4raPvyjq s3Xan MlKhSMvkiYqArBN0nm1fOHLtX0n7PSVwyxyQXVDwMZhjaM+F6c77m8Mf81m8s2yBstGoJJ3MV7xSIFmO VZrlx t2mmyp26o4oV1RqzZH68l0+usoNlJuTk7r13M4QKQJ6t6kvrRFWr3wF1kx7DIJMgYxQYAbCvjzpROEST iWQa1 GISdFhBHWSVLJi22SfivoSz62m0oZbyhe1lXmBR/bPGvLtvIv9AwcdgOoeqA9rdFszM9f0oZQrUj815M 3jHwv 7vIdb707uyysK54IF8c7k+/L3JxxuOrfmIip07ifBm6q4RW8/YYilHy/5PilgN80j+jVGc/QskPj/PqN 7lH/P l5V3Wp9QzW8IQj+poB696TPdHXt5kgJwJk/OZ0oqe+wCwe8pL44/Vzp/lvS8i25/W5p+tpSic/586fz5 0vnzp U/k8cCgnhZ+g2rkz3K+4f7u8XH83Cp44hosruI+JJO/Y2Di5fRkTTunx4kbR/+/M53VKjyW00bVnwUgN ofGv6 D7Q/XJ+zU6APJalXCxGmQ0XgfpBu2jyFjwJp5/yr/0nuw3LP+3EZxke552g57hU+j2XEy7o9RLZzu8z9 QniTo qzMyLc0QmvVHV27kP4MeNgPp26+ksxcaKSwLaKBh7RdO2bKD8Bokp0kVDCjn8Qu3scxLQvgmWNorajNt 3DJJd fa/tjuAtywjaC0S+Kv6r4t8miJ99QytZZ1sbgv+cq2Me/x0+l2tx8EHkgHJlm4lNiaiklLvbnYLO4gT8 lRfwV ZFn/C7gGyjh2bq3ZnAz9L/et9b7ST/k/i+jAbi0YQxxhxVroDIuGV0BTnDcAB5ehh9GQAtoTCQjn5OcD Qo8PA ugJ09ynTKbgTAlBjRlCVOEMGpoQTDxsXGPs8grXcOhGNL1BMPcQrpmAOjgVHEdQK90YZF4IDBfKjngZj Vzb3V fC2QmVKt6Yx2VW2ZpMJQ7BRl8Iv0BPHPtQiVxAcWlLPYRSk0BAu3CY7J5gNRvW3YjP2LORw1CBiNcWN1 iag0K GBxyCOHye5TwNJu2BGqjKlvugTMxKO9QsKO2OBCpL62yRSyoQALtA4OgQWqzHj7+NWaotUCjHZ4AZgjs c4rg5 Mcv8UL0FZHXXNZ0OoT3UVLoWtEfDauP0+Hw1DO2Apy1AlQTWU9XH8HzhgHoaaCwEx22g9WkUAYLOPb6M q5AXi 7XbHC5MUJpHz7HJUlcoaSydPJcVB1JXkHxFF7nnm0OLNzhEFSbw8QoURb4XNheFrSxgSNzPWVoZCXxGx A3OTJ pEm2HxHn7AVLwD9WlALTxGQWjw9AxFu1IFE9tkFsmIpzGT6Rmj124btBwcbC5QEujYV2grzUtiFF1GBc vSWFi TfE3KMFaITKQEo7+Cj4+Ky2BnIG1nBReHO3Uo1VdGs5JoUAmGT4VA8JtKAL8Lp0+FTyuqZBvIZ4IFcfc c4rg5 Yhv1PS9SSKLACH5SpP5GZItExSrBniA1+Ab8HD6SSVqKcLQBLDj9ErkSnenUCvDR38fPKyK9UMHFX+XK 5CXyx YnTEHMhh5GHJxvbwGplQDrAY0SAqNnHY6uai1OLQs5NIZwa0PmNAk8OQqwKtNelJQjKSRzWEBeUKB2HH JdCi9 LoLp1YZWnG7SoOTHjHIOrn9XtSz3TSE3pkBlvLtP6QibvGoLug9MnV7PfQBh6Eh9CrSJEO9JncDYhUGa KL0cw IDIzIDAgUgovRzEgMjQgMCBSCj4+Fk6Wz947NGr0Fw2VUBLxBXVoCDXJK0CtDEN5SAEwYgi+PgovUHJv Y1Nld YRtIz0ILYTTL3FayCJFV9vsFXudCblqXH9vH6CJBw3WmMXtLWnsVu1+Ze7GnLP3wXCwOI3Fx4SkXq8Ao XBlIC 1PS7IkAXD1Mz9+CZjgaHEqUJ9PUbwfyFvYhpg87w9a5ivUsLVsVDHh2om5UxBNE3raUfojiFR/ISpJVS rpLJK 64s7F72cZLZz8gzglJa54AIA/Z1U6u28m/5gTbRNk9Xv/X/7yu+u/0+oK3fs4bU5PN//8i7j++t/LzV6 jtem/ j/MiyUM8z1LSIb9xr7ZC1XaZbw974f/DCyX6LjSEIAVzeXmvdheHQ5p/gZKWrQc7IIMlLrwaMlhanyR6 ShVER jvXlBzKTLEWwaMjEQxdnkTq0GVAMrnEFPAm6kZWDWlraVjmfAIy5QdaXTkwsbUcE4XFXVkmaW/1Q3VOS JrBVn saBEHYuSryJ4MkKNwDiclEgeQTfAFzTfRRhh53xN/FOjM9MCt5LPdkdVUgg0SkDZ72MaaqotQ3U56n23 kCyPs BgLN7988EdMsDB4KtYBnNdliPOF2gsGK1eAzyYtzOPM/dqBT8d0tFknn4NzHRG72JNJ6rcAVNqTsE2ji DzetI MnO4QNW+4mIK3FAIH2JwKbae26Px+pu5gs6qyqv9Rc9qfxSrYagMMDhdhP19nBkHcizokJH8t1IxsK5r 13u9w 55rcUnOVpdVztFsyKpzrm3VYOnPIwYuUiJ0gaEBBRfgaN6VTwEOOBktrXr6uzBPAVn/omNp/TyGKqHC0 faRlE AEfm6Stlyt4rE0TtcHRM5fT8EcAATPkkphYxo8ufRI159ypVPGAGtvplNkNUnN+Fj0MMsGLO4oLEvvVP KsdeB rtsyugaQCawYv1b1b32qnHtB1q+/znIoh910yVbMJdf1/u/rkZAKKzoNKe3A0Z+n09Bw4scJjom/Kle9 Wplf6 aPQ9o5VieWRei9/DB4547ak+x9gC84VBYZVFxxutPpbTHLOFB2+8ee5S2OKnE8Iw3sBevB93iOEX9y6B lxMdX NqIr5GrctcbiUSZiMrRSTF4lLySvnAFN/aLtP8OTVrPbdIaUcjc2n0O8U+Jq5ZxVmlrKurkwHOnfjHhU IsMER /EM+BH2jzsnkXBetTK3W1ZQwqLaL3eGctX4dWA+kcloa fuyTvnc73C2eZFHLYJAmGRDCjvsshEcnfVyiBBsvmTfTCmOaprBO52uwzw6WkeM3jXAKdPNDkro64BQm 8+9S5 xqQsrZ1aXCjvxfvnGsCgLo8l+Y/krF+k5WVvg9vo0k2kl30a6r/Y1ZRVlLNCATtSJw/5CB9X6oY1D2e5 Gv/UC 6arpc4cS7wm/W6S7qkLWFpVQQUarSditW18R3rmKJsUYNGUPs8FvyX5U+B6oF3DEGgLToXO5BJyF6L/m 2BiWr NqUkw76tcyHByReyjKwRhMpqlLxGx5RQy/ggW1c5jYQAJT06otcYtUfr+bODXGpFlZ5IlaFByUWVL+N7 o0NBU nSyXZA6a1QULixOEvETBfB8iyceOR45Z28FLIrxEuO5B4FN/FMPdE8QMTqFlz/drPulNTzGsbD4cUrv6 xYaqm iypCN6Ghy4K/EZdR/ALOvC46n34Zs1RryELAODbfxqfFUTI7Q/jrdI5o9dh/nVarSm9Mvllf8KjaXeWQ xhIeZ IprBHZ89rX+ntKYYPS46ptRthDEKQ93JXAG9BN/6aRlfqFrNCfjCGkYgP3ulOx7TYFe181AEHY4/HgPF Wg/Z9 W+WY4fXVVY20McywhGrlMsFaYcvacNpN/fneyW9OH7rOrcqgeqgNAjgUxgsP25g6OX0vvfadmq0fTC88 oEJQN YgHY2LGbimM1uGTojRgtuuW4RwDHMfbCbC+vknYPZTy87hmVo4LCrgtdOQpPaR78nyLmbat279hvKRsD gKsfX oBsuFEOsNPJ7r4CUiw2E4SHAq9nVUnhmFM57AA6gucVkZ8iuUgVwKxFPKocsUeUTsPyOle3psZRMT3lW 40QjO k1UJoVDBPakHrYaBbciJZdbmOJqWlCF6IsG1mbS8oChmrCJfgntktoaVIMkCYA7SeUnmOU44etJAVtiU HS5RN mRG0WlUo+pw6FuWnZ+Dd0nIXG+L/WbArysMd3PIqqHnJo+MuhBXG5Gt2RxJ7hhRg6MCPHYePrGeq+1b3 sicKD zJ5+AyLCA8FHVmhxynTSpiMUS8PI/UwGY/AZrzAtBC31sTOiWrtjGuaMQdVfHE9OqTpAS0ejPzVrLOTE sXyH2 ckvAEHsaCnof2QVLMAXECAaLXwcji6GjwlvgzpCIbhaLboPSJszALCy+IlQ77D6dcMvB7UOfy2z/H4le GLSs+ 2jTnqDpocgew8rmpnhzfnCrTakYl2rE34KkC7SAIVSshUFzE7qe/XciQpLrzJWtYHT19i+2s5NsUBy8c rhwSE Dennis+L4mKELzMwnEDx8S3f5ZmRT9a+b3zRSxtUPwE1mgvytFkNgn5dNA6T4uTb9g9stk8lmN6qvAAdDzb guHCx TMnJ4lfrzwnZ5+qlKuzOqLmvxF7KOJO37H6xY3MHvq3fcbQ31MPLrOrVKpDYeAGfTPOvV7sFZZ4tulgd j8XKn A94dRx43JGyCzz0WWH7nLHwH9CbjnCwO1rirkBtSRr3G2rMmGfTIStsoOiCLwKRllwMTbFCJxXt6FCT2 n4L41 uauIpIARiP05oABRHi+r0nSotxoMZ7KzB2y5g5v5ng9A0qaG35xU0QLRznQlHWjZ5Dn63SEfUMsKFz0f hYmer wd8L/of10o6/XESXTcn7J5Adba0SDJFvBKZhHki35uPC6umXDKb/NHzWdSJsCKnKNDhdYCnKbmEX6Vyn Fs4Wg SbtebukBiVurpzZY/H8g2tRFI0auEYyW4jpOjVs4G5l/6kumFrn6FqjXj6sAKFFmKCIt97AcwaQ+Rk6x 7EFgG ZGfJsoWJIQZFYfnDLkJHYF3KSR63V4WuAyNtAKzjzRoscTqWD00hidwZBImoCBAAQto+P8CjceinRAOS dWDuL aUpfi61bp99x5EVk2b31Wfeoov8xsYF1aWFDx3BXPcA6MI84NxSfryFRRLR91YE6WLDEl7tDzocAHG7t U3ihV nWnT73kXvu/+lnkq4oiR4n4LXY62gbp2kBt2ky5W52PjOjzoRIcraeEXD0O4TIB2CY6SEWL3L6665QNm 2qOZ8 Qwas/advYGdLvyiiI5oZuXCs59yPgVbkO/v9b3TmSAoI65mhLkFuVv8JiGu0laFOx7I/NsHSTzJ7Y6gu bJ1Ci u3B+NIOm4h0S4dnu4TANoup15omNcxEx5ef6bwqEna6G6xzTs7OrNvBY6d+c7zUFBdgMMdUrjAPM7v+L 5NCOB SIforyet+3avJKPGNUrd2YMrepwL/zjpAWoZk6WtXPMFqTLx00WMr4m6FLrP6LhmcBgNvS2BfeYUIsfQ HyGyb yDLvVWkvP5mBuOMR7LCxAbJACblP0kj4bzdOHHJDI/sZ/a3ic0hvtolm0JRt9qIwvCy18kU3dR4Dyq0y byZIw a3LRi+X8jNXb1hTYeGQSi1/O8gyufTN2HVKpKzbJ/VvaOX9I0KLxNG4ePcyM7U3yPSpR19rdmq9dutjb pXNSw Q9YNfh1vvSMu4Rx26T8iDCrMZjBXQzfUdiERJWPRVl9k/EDgyvbsjuJzdgBcOHTK+mx+WF8Kpm4PkPEz SHEPPARD+hQ f4zl/xvl2il6lLWpmIwLA6PlkeI0XuL2GFYrzpAvczDcM2kcrERuvlmCvwCB1OJyUvKKwSTWkVm5Zv/p V3P3X 3kW8QXdCQlZZQznF1Q60vu67T+StxuYFFbKerxzdLb/pqZp8v2asQRymwU5MZtLIZj4DwzEuWG0ygQ7F tTsGG sJkt0AQNN+zjFsqcaD1DixT1Xqg31UsPibRuNv8EzJNBKl4MVpMaDNYjnYvUSnRd5G0UIuHB1wQSPs0k QynO6 HggV+9bXbsg8Vn/dXj5+7ITbFlVhoRdqdIS8JZz5iHeZjiwSukhC5/8YW7g8/jCwWDMWb5fBaCdBqJc+ PxDeI 1OdXqXLD9LJMcVVa31JeNVYh62g5iZncxlMylFfZiVBnm3O7TyXGUw1rV8srgKW2EPkS4nK2a3M7Q5uH BPPMQ De/nSN/e//wjXpHebWeQyUyqEtdbZXdD0Y2+GxPu0A5pzLCllsLuVi6tKyyOT7WUf7KLZDx4JfGbj/dj 48pMn har8ogvcRVqEmDHIQ33BJLNAW/rZXVvPeo+iRjblTqCuCo6uVL4au6t0q3jkNKrPmdGjPPM5M7yNrte1 kz4a7 xa2GNKDiZaUgbOvuoXBXGBNr/pF3adu+yISqjC19+a9leqegGlDYB7q0WSOpFdtydDdk11mvGiStoF5h sISzy wjPOSgz0pQUkGNQxNVTLou/ikhcPzWFuv+ZAxzIF7e+5Bzbxhp97FrxJ0Qheagut2zPWiXHc77/Di4Fc OB6kG IcNGP81FDQreem6K/zu3ox+D6aKKOikcLY5dNjA4CnqzZ64oxpqwfzz7IpuRpc5dOwGc1BE4EfhE2VnF aF06P KkQeb8JTa3fQSqw34kFTSCWbWp+A00xtyUvZjM++oHxJXmvRIEfE7Z3cAAYhrlypAg36xXZeM0nIaY2/ wGm5U TaYMpoonBynKBxSV7MUaKeAY1vkp3BQQw6LPFkz0DbYBn9YCbdE37pzZLixCLuVhHoDBNXIJctGGIzzG FCb3g nMpOpFFM7LQQxCyfcBEeeDSDcQA92UGC7AZXeVbqeNkSaf8ExQ1BtZAa3Ig8XY1FsLGA7PBl0Mu3GPQA jMzkg MdYvMURQDe2TNu0IS0G7nCTbL8DsS8JSWg2UIvTyKR8hau0QRGe9TMWua5PzKWx6SBwjAxkorSRdII5K bGF0Z QYlB85aZEzrVIRyG3FjUBgvYf1+NRfsmBVpUW7ZCvmyh8zq4Fwu1QO2BISDLXV1DiN9EJSePcReBzbL0 +Uy0L H2Efl9ZmMCYF3PC8KzuiPkqmXiQa73i7GtDNHJPXl9Bo1RRb4DwHT7DLAeyV4TIJqowcPapSJaKU9GLu VuZG9 dlm5DEOo6FJHva0XtRZt8XKuxYrRevIQwUTBxYGIqCtB2DWYoBm5GxSp8FBGnA7FoKUVaSFWpp5QhNn9 MZW5n vVkmHowZF9Jaj445ceXiliZ9KKgiEJ6pqrErrNK2DAotSSIsPnL8LGNyKTPvDbs+Pgo+QxotU2RwdYdn ZSAvR h0wiPkwXGdwTJHjRA2oepVqwYj+Xe0Kr1IdXXSaTDy8fBGG5PRq6OKvDTBjUMR1KIAkvpHPSXel2PrAp OPlMt GwtJMoL8urWIJj21oFUWAfGafNp3wmYwSb0hjHcWPlnncHn1gTdGCCYtYRVy7TSU5ux4EbGFVrCTguzq RvYmo RVq5OBNCwFW3zmp2IQXhYT4Odj5MOa791XJ6iJrCOGGnrU8AddYVcyFvrTFDfV2OhUPFlgKMsctLeIUq 5IDAg Ci7QU4OrP38jcX8fDC2PCSTvwNp2pA8PNb3IlLI4kXSlWB6XuJLxJFklYQ3Izzneu7WzKOImRESpLfvb VHlwZ HDgJe4jqAk+Dz3ZEP8nn1GcHGoXTvwgUCRfHboTZew4Yj7IPNHhCi9tkJVvDaBJOgCDG4FnfPmcaxuXZ 0NJRF Y8a3WhtBtvJu1hQDuDI66mWKTjqQ8bPOkHWHXzkCn0rEyQW8GmS9vkpPP5YDsQQH0aUZpNL1I3sALxJD 1lbnQ gMAo+CxkeR7iILS3TLMSBJVExS4mdFJ83jNA6Ar3GVgGtMk5Kr375OUYaL4YkjSZlenBoKUGuJWFDD0Y 1YnR5 aHJtN6GRUJRghtGEbUGdIjhoUDoxASAhYp2eaYnvYqDyHGomPVW6MduiNUx0DQEaMJGrByBnWEy9FuDd NTc4L aDkVyI8MNa8HAimQbHsZfA5Zpy0XJSsRYSdDCIqXYQuEHAcVlL2Rzf6YWBfFNT6JQWlHmLmVBplRGH0G jM4Mj vqPIulMWqNOuC6CV1qTFN6KS6XEdipWjx3JzQpAlntTcAjEeX1CoqzQAd7OcQ3BHM2TSsbTGYZXxZqTB 4xNzU 5XX6PMyI1FuszHmrjUFzyOGmvVuF4JeyzLrp1AapnOYPcLEOsZB6sIIV6H42YSruqZxz5YtumOtBeRyX dCjM5 IdsfZLC9IoS2FICbGFa9JNLRZoG9MH7cKVZcTS8LFLFyMivkOjTlGSPzMYUsEmZjXYxuBVX7YzQwRQwo XQo0N HCKVjJ1Ru95GpS1Zl7ZETS4BciyNXWmEHJfJSKjGXw+Rr6EAZ7df5OgQOsYGjOnOPZug3BbKWy1VSurE XNjZW 09SKu1Dm5pYWp8QCvzN0CxXEGnM8n3MLZnKF96MtS6TBhqWVLsN4QduOCfIcmhUDN1EbaPH7GuAPsnNI MyCi9 Pd332VdFbmRHsUUWpQe04Tle1KNPzLrHaAmTvDTR9RH0yTkEfXIYgAAX8EcW5CoL1LQamMp2ktGWxdJR yIDEz FEThFizmFd1kiW6bmLEaS5pZArVDFsqJVEgfOdFsIj5JxFSojNDNnesrGMIsOb9HuZSxWqE1PC72GXk3 NAovV WhqLBXkLe7feBZxs0VieNZ3l7HHAp0TWcXmYN8dpd8AJMwuYDMjOH3gcj1YPGkIX9BhqXKtktKbVthmy GVEZW XrQEGQW0fysvx2tXWcKvZBJk2LXrV0ewPjtH9TyNjv3x5ZscACMLB8W5Sv14GKZm7QPpPshom3So0+gE 3GrrD MVT4Vg089P7xviiTPtROfHhFUWEnWRAq5xLFwECYiL4HMmlv6GctGv35GJbFkmWzKzxXi1OH0xpF0KdP Xph2C PGcs/NZQqIUt6gs2bOKKUUh9KazsuycqHAfo+m7tD/RgJsaDomAaWr/Qp4Fysa1NtVEeRkq1X25nO/OX 8TVbY MRo8ZVs5VFpHrMjgB1LgRkjIUyGQ4YRZf+Wj4yCvc22yzly33m552HOdJpIBNRlWPohWTxhjrz0PcI7H pwsEl qqMmQimkJqyAoLm0DDrfw8JNVbULxnsQb4rSLKXrpqyIRjIVBP2rOGThDNxvV3Pd8vL6mkaEmz5AOKO1 WKPyf RjF7lBSNwrmC9df5hUBhjhT3EOxEg5wIlslCoObjHHtPW+klnC2p8HCbtfeHyjMRwLJ7NRwUvSF6csu2 KDQox KyEsNZ5iqo5XJIrFK2LQb8xpUyJoHCQ2WJQnLroqQFrgLrkeaXUmQS7FnSQ4UPOkF65hTJvnBUTrH4Mh IDM2M hnHP4Qdh424woOmtgS4JLkuSQq0L0Q2OMPhKLa1Pp8HNQDwFaBhFFZHL7vbDHA4MULhFfs+AfjoHh2zb CA8PA iwSyKfSmArOFTBPl9USZFmDBJyOSIDA5OtQFglGVXZMm2+Bp1Rdp3mJ3F3apMwJ3XIDabrNAO8cNlrGQ 1hZ2V OFx4MrXEsYXQOY5ocBQdmCC4HJi2TD5Z3SaY8jUJmY8Nubw7WB3C1nCVrW8vKJwzoS3BVLz3RAzZ7wpV hbQ0K eJztXNuOJLcNfR/A/9DPAVzWXSogCDDTM+LbNMSfW8OFHPZWgKQ/EWfrCckxHCZytlAT1GUj1PMEz65b krrU/ omZa9vH+PMt/nX7fxm1j1jen1LhTXT08w+nv/3h8m+gbt5S2/ifE9pYxiuyjR2bE/7nabMXJXYHP/y+X 6Tekf YsY4lot1K+6MeuOq6gtn5BxqQJ8gTsDLJaTjMp9y2ptVMa+QBfDfBSSfUEmrqSfsP2GpujFix5S4+C5O rlBf9 Am/oW3lvT9mXkgC0vPxgLPdRP5HjyA51Gi9xe9gA61VZyAK7UdilMcArPj40RvMa1CMUA2QDreYPLfcQ DQBcS GjoF9z36SZDoycZSPGvRtS1AhOY3SQj9Q8SZgzHbnKeNOpYqQ6fvMuDEpQTGr9km1EjxPbA7nbosIOeC hwnhw yTPOlBL7aAwpZ9uZaSPpuJFcbvNnekxs7sD9gnIezMHN3PSKDAmJKtSQYElLsOhedlLRkElCZn+G6NWG A0lqf SFZJNKZXh/LGR1MLNFiIlU+oSAQmtjJjZDNL6SqOjCi7bjYwyfeBBAQBP0pAkGMnZDNchJ4DETQwOlCJ ULFZI wlJsmODhQVbi6UV3gZuaDqhUrR0UiSgwutMiiJg4gxTSigGo1DGefNicFF7DmmsIwCXggXi9CgcsGPlH YQgWU HYkoUSQrkvwoilLIUkeDp6lUQe0NbsfYED8tRUsRAMj3YxAsoYhCJQvQJBuDwGfmcO4tM5K3UBa0USsE tXFc2 wtIj5Oro4P2HkB5WWaTQpL3cXHuKcajvuyqlqRlQLe8sGjIGqH3xCSPXariYHyOijUVuIuonMqQHGWa6 HFpYl KICIm9dMIthiFn2cnEtgpIQA2iaaQBP7trcWI+p8S9Bvcu2CzNUJpJp4un3fSkJWb1EM0fGSdbYVLxNq ckdbi QzH2RtYH3UNyPtUOSYzRP2dPJzROZJzuHL0OXsIqLCEKxEV8Qu6kOgdRdVHu4yOOlYonvN2n3BWTKhyJ FywGX JqkFPbgDOv71UHxLFDmDtE5uJajLycHjJpPpOZof3Zb0lmCbBcXrA9XSqcUfDZxHkOrGk8PpAtuUN7bZ Lxoj6 jDalR8b7eyIQAjsASvvoAFgU/wK96AX96H9DYNn2f0fWt7pNWpRiHI9iqfJce4C1bB6hMtcuPZnS5B3h eFQFe lk2JjpKzKmJSJAw4gxnlrpm4P96AZJEQyQUdrJqseZ9cYpBQ6zWRpUhonK4ig8H8bjqtZMFtkqP+6Osa zY/DC GhNy7hUJ1N5te1MksDcygpEGLc+cnHWNZmFY/LKw87iK6OrWG7vO2pZAAK5UTX0wrJAtl0NjoxKE7Ae6 TR/GS vllqvz8y9mIdz6zSH3TKT+tkzLs2nkthL2248oJtc3t/TmKzGclygZYlAw68Hl9qAszZ/0DAfTJniK2V c9e2U JaqAnifvZ7Zfn0uZc745RjeJTqDgSLYT443eoxOmL1IJsdmxE+sMO7GuVvjoXaEwbFp6wI5TrDHHJbte a7n7x I/6K7i9THZdGMtsfyK4vAD0qAOCRN34ZDNJAiFfsc1QkceLqkLK/C9OLkYoRqCBXI49bZpFlNXy10TMO ceWZt XKD2wILDeApYNUU8hnUrhqbq0z+Alexandra/jRI6hqaJVVaNhHj/zZVRr+tDtpW4qB3gxCHbI7IFghn+ZaJeS unXkh ZouVDZM0879zykzw0VgF7yUoN+0ffqEu6+0KfvUCIwd1bLpYANhroAZEjsBTVu1VrgD1ye6OaZZMlrjk rVQZP 1LvlidmDGWdcrd0bi4unrV4Z+Uy3fIReyKYOvNSCXKGlhvwFngM1h08RtqPMCMFncwBxrRtGaWFW39AH LSaRo 5A8Ot5wBQIaYRe6BoTXbBzZkJQROkBkwLqrUmuuVLe9AjhnAFJfPAGke5xTD5x/C5xqVEG8QigRhaE6W y1Zq4 oX02WSdqvevgRS+C3DsLSDRN51jCO11HZpXWI6FXpH+lSaTt0lQkNJkefk3mMP2qP4Lai9Ae3TyxS2Kp YsSLi Tz7NGDjs434RNjrTLboE6Qdi0aZLNkvWOYAEZu3kjypD/7pgDdYr01E6kBLgtTG9Z1hp9vaio2DOJucx lkHxa hnUXhhG4nBTgQwPOAbtPNE9Hjut4utpH6v+puW+qdLCLcNMr8yd9yolmDhFbYR5XiPTHVgaQu3HW5vN9 T5PwB N5U2q/tU0RubmM3DZ3JCdSKQIU5yER0HMQCavyYRaUnKPv+sif4BqwPBj/C6nDhNeP8ofgXaIcUcpnV1 aCpmJ B3rai85HvMO91O2kYEPx4ExoXJHO9Kd5cvTufmiUCUbXrd+jPlGkj8UAaN2KPINfr7DLNruHBiG/Jtwq eBSTI t5aJT0mX5iRpKs4SzoVkfP8GTqOIZw4kcoijRnh6eeI58GPhZxUGf/PyAA4tZ6HpFnbaVHp8A6HmgZ5l tW+q8 O8MKjyQ4vUNJg6rjMjPb0lm7Kq8uT+E31M9lULYOfDvf6C88BTLArEFao4/u80FLi0PlyagYQusVEDzr szHPy 753QUusavAM6J3mQ85oUNjNwPmoRU1DruP/PQDFHf42Sx2lnIa8QSCmsUG8X7o9CsyaFwsJzZ1bszbGx EDr5T Etw9kqPPdYIkwDd88m2WCNLWsj9RTNsylYLrmqZDoBjorqPUagIUpyyTD6rk2VhPOc1rRx4/E5nLNzef FObw9 txS7YcatPwn3oY78K0ok1ikm5olve24dkEeu2Il1njdMQIgbgjW471pocXxk9p3nor94A7jJgvTfTgLW RssLF piQTdV1NDUVKl4y6Pz3UnDVLjx5VoI+Eqq3PkunJBs/CwdHhZFk7u1mM070Tz9U62094IcVgPqrq8BlX /Q+2o 6+T93AcNo1Zczs9PebfIBzWHUnzRiZuLDdFmGQh73NMd1hxmzW+8iier9C2X9/d76tYjD5Qp5osP9z7I bKfYH h6D7baY+L7gRci8yZ1F4TeDirhFAOjK1p0so9prWz0bbUb10gJTl1g7Ps9wjSbF/ecvPORpayEBQmnnD jR77V 983Q316iAOCTjhqPH2r9Cb5zDjWm02SFgmsqc9JGJMm1262cQD0Ujid5uRwr1PyUcGoDcOrDIC3pEvaO cUr k1C4xPaV7L+mc1Dgyb1cs+tmSIOk7g5Xzp5CvV+4AgNzD9y6IUvoNSMmr29iCtv0DFZVaLHSZyH+SrJS v+sNp xadMnYqAOsOt3JyLY3G7H8xrpnUW1cTYoX0DgLFy94uIInaRt7M2bPp3n3rrArkDo4HQ7l5sthIucWLc mr87l GJxlDxq4fSM6kWqSVrCHefE3HNRmdsExalh8df147DFTiL/etXdnrIRE/pNt5A0a2ck7+e3zyWIbX87P rk2na 0z6srt8+FBzszljE1GdNY4LBZMkMnfIvTF1WgMK4LhTR76eXCH4bO7U5aaA6iZwDtvXRzsPLBiAeBnnE XyHzw ypfFMO0x1G0axSBkmhbtUwMGSau79Phj8qbG36jMiGVcLHXSQ7qTX4fF5HeSNOIr2ex8sQ+tbPdovL9C HY1c5 ZrQZ+cCB/LbFl/DvXqTl/1PkWnQsQgR0tYT08KY9UinGHdYnk46k9Cfs21/W+LSBh0c9IqQP8qxPOinR HLGs6 UHOeHZg1YqYmr7l0xUpSGKCRonv2VusBVhvq756eL6LekLmXuoBrKmETFGUgtIh7vN7fbZ/W8Xw2RYjZ mD4RO nSsqMiwFvIjWMH719wcqEe70MG56zblvN3Uppigxn8rf1DU+588EXRNfj5//BKM3Kr7d4KSggqFtzCBh sZL20 Hr9uOOV9AkyT+4jmlK0+bnfIAihQ0ms7MMSMipF9eCZ5C/abocAW0F3RUWaj5g7Q5AAo7/IAXV4PECDl nJyNm +By2u8/D+3VmAabAYBQGy7wsH4N2G6V0hsoKCJpG8s7OOfITfUa+3rKf5Y0omr2X7GMGV8MSkD6VwE6c VLPs7 jpY6uGOKh/muQ38KuFg7KzxoqghjpQao4EE94OQB29tkrXIJBg5PZ28faGT2VLYaEdMpranrM30w6WhI id+X2 fqkviabtbWU70fK1zXWzArzQo3kjS+6NrwgqwBd1KXMdb2wBvJdV6un1DpKndOKSm5pPPe2SDWxDsl0S HrtQd 9e391DWaXKoWgZJ267cUvb/me88pd4w7u8CE2h3Pwnm6Zbuu+LIwAJadWUBvbQAReXm4UrmvHT9v+he3 uiEmn bsvdeL8P7lr5P4R5uN1etBG4gbIdZUOsnNcmRYA4sEugwNh11gI/jlJRzLFqxHnylbsHC/bhEL9+tMLN xXps8 M8pkfSTY+EJOpb1zN7y7fsH+B/tGkulD+6cQvChnY43fv+umdI4e1idUdo8ieu5T5v7WbGNGtgUeo6vR nnYnN b9PiZshAypn3FGcjbPjrxuUzD8D+bcsjnyEej3A9ngvVbITKU4VqL31YE/1w7sIrUmHetAmjq3cSKB6Q rwHTP OB5QuqrQ1D5rm+Uk1mk9a7M66BbZv4U8tFr4owZXSav1bLzdHzw2tqwBfdVoZshKhoPUNvDavCsB9R4e 3j/Hl iD4mFwVKoKXcNk1aRlW62SdQ0CZTbS3ugszY7QRAeM+sDsru2AzB22M0iWZwkAQ2wSoqAUnrysVQYrkj MsHIs iEYKs3lEU2pT1lWuIBLDa2/tqNe7BXpixKtTBBPZ+0kPJ3/Cpi4e7b4qcgc92P/+nKEDKSRdDakceQUG XQL1w /fReb0+4E62QOuVnbZwDr85nhqELoPmbZ/3DpYRYeoG7WvUS1YI/2ASZb+yh43s9017AvaURPyCuUSjg bmRzd OMbEF3SLkFhFB3ujv6LVNpcPiFgYF1jhq0DVSeKZ3WbtHXdfiNpEpvanRAVTRSlCGLZG7wbixs3kJRvY jk5Ng rpAIWpJ0GiNRMkCAV3UlNQAo4NIqT9qwQxuY3LxSnghIx8STW//9+9P6k6w9i5npj2COAKSeiw562MGg RQQk9 q2QV19hXNDxXkRiRKnbAPEpKFWCD7ypUToc1pYmyKA+Fc54eblWBQUlF3//t30KUDSLgeVbE1Z+/3e2a ODwlE 5KQALQSacJt5l8ouViNT2q9bzisEmYch+g6HVWldjRIRcZrQYa29u7DfSkJyOsgctLazzdMsuibh+nKi t2cRj d87OSg2US3/fgGKz2HJ/ragID/pboWcTAW8KR3WvbqlDqsKGvA+zQBf3EfIgGjD+5KEDuOIYtaOnDRq/ PUfSs 6MzmqZbPojrgiOvImKY00QNeNU0dVf6knTdt/6fG8N8X8IFEtioZiP2G+Pr3+etQQhm2CJ6tRdoXidvd 1IWFW ILQjLyT9Mm320HeelkywU2kjBlPQ/8+w4413T7gqah2qu/IbYMvuq7F1EpHHx8XD+x6AYBm0Bl41/d26 n44wV X/rj5clgV/U09tvZVePZflfkvx/GlBTlXc6aThbBiVm92KpY60KGY9aLK0gZj2oLspcRgucoSM3hnh6p RLEc6 YLuLrtW75JdA2RRJ3b0/xZS8u9fLPD37KZUN6GmNNDP+7WS4vO7KzwPsAOHV74VESFCOnMDhoOeTYYuf eguVg Q4iBSq4GXem/QBgfxaHJ4B2gcGbjcOBzvM5i/Vx6O9vaFLWc3C3Xm90+P15c4itX+rRTSoUBz+gqIikR No39X YZhrBWzQpnsOAtzYoq5idGAKbEShv5p/swTeyZqRCCXUlh5IhoahWn3laQRnpKC539cToEWS0tE1Wrg1 oCTpa 5hdeDOKqQMMdYoewB3Chsj3NsUJ5NpsTMusaC0izmY7Pnk2zDkF5jGXNyT3mZmMiPLlV7HZYEoSVLvvG Leatha/9 6jbSdqlKCh/UGRwjHjVFsUoi1X/wHBkXHaw1AvoSnlF+M/Lx3TgcJ7ok4woI/BrcTiDKkkZoaDpYjyup h3gFs vdDKZb/pcQOoW62y8nv1T3iIbJo/YTLeKvZqbOGqtjGVuVuNLwHKL6YftBrsM3JHBVSipWh76LqVyyTQ BMkDa BtGRrGEXYxk2Q9PbZzHwCah8ZLK7FIiel+LdZ/yww3TFGZ89AWKsZpcTuZ6W89C8yHybctRbPR9gx+yj JVoOS tZoceGcYnz6NDyQumQH0Tw0iyJZTtMpRM+HVaP1KZrUREConWT7RC9PoeWVYxgWK12EZQzxO9Mv18OyM LbGS4 pEM05zCeUF2Wqg6FKDyxrf7fnCmafz9z5R5tKnloUnhrlFmiaButC/XCrNOD7BlUGJQ0pNsPi40ZGvX6 zFBWV uFH5D+KrcSxeUdJXES9HwCp1GtEdusxBsloab4IspcaUAbofdnoVoYYlq5OuLulxN6IDSkoLWNy0ASNe iMmpR jYCPmUtYEjnR7tNfU2c9jFD3U27RydsoLNGqsrCywqgbD6+grGifkUrYwPvQOwuOEEVjPBiHtFwYpRj7 kEX6F 90Q5Fn8KDv8gEbZ12WknZ94KLufL3tVb5KInoSKqQxlGnaLEIXbEYpnJGb3X/OtNFUlumI1cTHv27GT0 EEL4Z rAk7IrC33JvcQdZ+nQpTkZpV96adH4qvfV2EKp8sHeVswYH1Bza+4Gl7ynu9iC8BrVhuDQbeNoeDkRI7 j4JPo HOYWgfF/lVfrRb0SGmZv+NbP39MAgkWqdotYbXD9T9oCsIQkF8RelI13Pn/oOfn2zVwDKZp+cyzdQXgr dy2Wz uY9K8xLz0O/HRNFQ4QL/Rx/6RXB7dN+JF1Udpoo2wffLQe+AE7io+ySZdLNYuP4mGYMkk+EdYJnJZKJ4 3ZExi wZhX7adXlF3hMS867DqjgyS1pRKFw7L7AVfxBUOgJUvPMzXVZUGAFUhUyUoT7Wo+tfxcrTwJH3YN3Hmx ZMzTR bsQ2nF7DkHzMLjoQEsPLgUxnwA7QI3tCEeHaYxTiFPbuIvUOjkvw1S+eVN8K9yK2MzHVEtSp8B8rkJ7h oH8Gf j+r2JNcxpCTnufL9IPv9DTnGAPABg1+S7aKK+hMP65mgzQSxxYf+zumwzgm1nXwD+iCRzje/vmS1u3pU QxA9+ kFggJzoL5IrF8gUzfQairNLi2GL7pckP05pejBtfL06uljFGn4UQcU/B3az16pVnrmPoGdP8xRA+1XAl pfgFT tVeeH3jqJp05RKFPkFbZduc4v3Yvmc0+ydDvQsj/Y6X2GWpcoAwLktn1by+xWa78NmPA4LX91QlDaOra MFuBZ qquHuRD9qXIap4Fmd1ZconReEHwc1YC5yGzfCGL3a4dEmRtI1D7xG31zAgrudu4PuwJH301Sl1cBh0IA TiTys uLEHcafEZjpe+aaiIFAiR0hvfgIHgpJgCAX3U94A/rhH7hY+re0cYfNX6eHWHLm03YjimSXLlE9evJX6 hl/TH 2+kOn6g+BGmpAXJvdCB4unBSHWvEOhBbdmInnPJIKuqtoupTfFrucgeW0U8moSvXaSOasmDVt2fkQFBH PtRtj gBuimNqHxtMblOWBThpPZNiJ4b6CCzU2O4Vpm9U/nFqw/qE/uQgU035rMRHoWMDV8+HA9wFV3TYVzSZZ aAkYY xKdtuCYgRZRhRkfX4sEyESpq69h3Qhp1/OZpwwoj8x72NC5Ch4pc80dvjv9ZB2HE3Mee7IXU1O7OJdMm RLEjy CJ5cDOxMcHVFs1Na8oKyZDXvOR2LMP6q89QJS9O7YC0UYtfIvIY1XsyFihBY9RhWspJTmpEfIpIGK7Gr oCo66 SUwNqClvHLMAAZ9MkeG11bNe6XrDGleQABmOwJYPncUMLlv0M3DmypcauW+heDuzPBfJuai/ck74cCfG ve3Y/ kWt2SlgAi+J3Thw5B5SjDCcSTl57ILc+VmFEqDS3IR0wf/24A+l2QE+Lp+26tzixLsM7/dWz4GrH0FsS FI9jX M3PCzGoifnE5ZeyEfE7nP94rcQAL3xytKbnF4sIXXZkLGBhm9CvO/Qz6IS+FQ2j0s2PR8lnQcfH2dJM0 OMh9E F3qo+yfEhtgF8nLrvLRnHAUetGPqq64wZzbnZnKWrqb8+Cz47ja6Bzm/fCQaaeUoWKoVlChBH2OhLYu1 KMfER YPGuitM3s/vDqJW2VI5t8eLC9AAaOJKJ92+GGu8LS2EqtCIdkNbS8dOzy0Cv9YQ3xlpV7jHPzKRywekQ vNt3B CObha16kMwNhsgogwz0LO4iQnF2ZDRs0CAHgzRxrj/NwJb3HoIiiq9Oh70StpJixsuNy5eGd+gXqCbJA bTDC8 kiTsWK8J/S8AMNPh2m8G9iDCPmfaEFi6j7nmcAX/a6TatjkHZ/gTbPRw5d2eEyaunWMl+3xbBK1vkQU5 9rcQq uwq/pjn0QOoR5POf5aMQxN/wy5+k8NGiNjq2pJ8pIsPs0HqPNGwG2rUwfx4mJb3NJoiqHvtDzWBRfm8f lsvAL lbCqbstdNThUllDq3UTdVp70cJzf4z+HQXohXYpR35YlX75IdWB5zuEnWGUltwlAu8AEtR3O4X7B80Ci tg9eL VMF1QdjfvYzJg3D3/zT7EV4geZRcA1jf59yMd4naqCciuxkL09M3JXb7IqrFSN+6bWMGBawR6CMybq2J zlwBa 71Wow6dBgkpaa9Ovxl9pX5aKepZ1wa5PdGzvzKpZiYVWK63yG21Pf0FfE6Y954VEfti7J94rtL1Gr6NB MjuVF lh0iJeTI8Z6TTyR3jVsqWnbpy0qIn5EOkTiDZ5FN47mc7XIE1txLQ7xnzHfHsWAp+zzsoRw1SGZVshKQ xp0DE prdiUARbZ0ToZ4SaLAgr1NL4WuROKANSGtaIrzJ108XVQVorW1kg2z/ceCnYykJZ9UHRrXbH3pTpDP7D gndzO 4vaTIY/BkwzgRSYDoToyaUvmAhw6L7n4NTa7ku/kV4InJJDxaJdNurK+r87nxxdvef1dE9J1/PxdvB94 G8LvL J6HfY3SqNzoOecE00ArSjOu+4zHG+89xpF+wZAz41O7BrL2eMH0oyV+1qEtQhfJ1VurrWNyRTUTF6zpJ x9RA4 MvqRGHfqfOHNEGmcBxUE+JpJ3qaiphmTvrbDoKeDUjBkTOcxItZq1tlXL1o53O3Nc5V31nkTDNS2QWtW BQsRQ CiZHwd/B+PFgIilUokmRfw8WjJwdU83PYjNdXqk2I36m5yZspGRewODr7C2P8BMliNPWXyPzupvjC8CI T2hxY B1bgWgSXrY1wg5a69y4o8TIipzGipB5Wnqiq6nxBfD3Ou2BxF8XaKkhf3xNr6pJRV8N9QKPv4mB2m99T ylizy 9o/jlgLO96jy9HCt+o7szzoH5py54p3grY/adrPsMG/M+LX4VK7yhBdbD5J6KV+3incpQ66Xp4VlFcR9 +/i9T I54lXljL65AV+6Tqee6kRCbzqM/k8lCUeVAc4p3ttQYShnk34K72yp23FO5332daoKRymaMhCWIxxmjP Z7+Nm YvqpO85pD7F4LPIwFSiJ8gYI+ZH1dlGaHBnJzJIfsZmoBW10qwBZrL4ak2ekJf09DQlRgwV7CgHNsy8W ZQde/ et0VfaDdazR5HOv7UwSZTNrw+/O+qQq1ETAEOF+l2K6o711o1U91D6XfuY45NNHKWRCk/09L62q4sO52 3mzoW 3JXpJwH4g6DKfDgWdW4wSbsbUkTXuZYTxKokbw0LP+KNfbM+FwlVT73hNYueN+OQneqgrQnaRBswsGGb G5Cc8 YsFOGVt7GztYDcR/xKrED3HH+oFbV1k9GgtqjZBru241ZJbcyYC0hYuxC6YJ6U1+ETJupB97smpvoNK0 KHNcE s0MXNXUTcPUCul5AUvix9JF7gluE2qfnPLcOWmFQ5B+7oDzsqO1eDz+wBqkNurcyKZyP820jEiq67pi8 qCH11 CnrEFMPWmcLTCj/PfpgZ9XPfcnuzIrSWenO8ufXdhANsIWcqQ56O56pO052iWmf7YiG9P8WXQaUhWXzu e4W1B 64N1JC2pJp0CRf2yQdd0Ivu3B7FNmR6Jaw4G7dfVcSyEblh+C8O1eumc3UbaYji6H4KkxYNkLvx5DqE1 2Rr4p z7Y4q9Jmb1ztrBe7DZuV+cnxBBZ8SPVXkR3iU416NIeYQVPLM/jj/hUYUPOOre0f8Myn8Xw2qW8mgq8 Ff8jO rN4z4/zPKqnVnDOAxlOVuIbwgXjdXk2DgFiLVabKB3Ff9MkKrg0oyIwKbxB3RxQznH2d2/U20bONR0wQ dg6Z+ BjvRPINZC/85K27TkhLO8ke2eo1K69YJ5UMEp183uFoJXsIawH/dSK7YdI847ZER7D/WvUv2fTo48ccO HfEOC rbAjetBhboq7I3er/Hp8UHeVjrpwyX8Yg7YI+Rdb0BfenE1mZu35zOD73NjYbGGKETxZDf7SUSQwJ0EM lv6PM zQM/sa10TGf2T8VYB8xgEZea9/r61C1TVuBAbgA1LH2WcCt3FrtQHwTHU6BspH/fjG+666kXVrx7ozNt Mizhg 9U3zuVkSlRwfSKcYXMGgWVGO0soChXfNgxkN6Tl8jS62NhihlT9KUMMEFgqfYHzOH5TL2m66qz9coo0K g3aVz HbV2zKZtZQKQDR72qjTND8/mGL4yIMv01WT38RHv49eDA6NRsfBp+w0j7lKjF19Dy0qmR9AfJ1Xc4may aVg/t iI+rTe7cVn4Jpzurd+8rRqWD4+iAuP0klBn6XUj8pFq7InZ83twaio5/mofSLndiXDOH7tH2xK8jexOx VxjDf dj9LkRc11Zb5ii0RWuMeE2LUryG2My+CisRV+G9oh/6Ce5X1u2L1c5UpwmX+gpI19/qg3Dkna47iOe6A Csc4k BpOvxChW6AfgYYgzrwWc7b6HyjS6g6z77SURT6p6LhC9KbyBqtEASJTohe+mlnS75KD25LinFTXN435M aZMiR cMQCaZSp0HfIjU4SaP3TJImC7mUrHMIky54IRuUgtYcMBFvrClkBIwJ++Qn9+wzNh5GW1ip+4T6WYiy4 /B3VA DGH4zFxZ+kw9GtOtYiFb4Z1CYrRkfkeEYBHuEsIfaF3nG7BI9iCORW2Nv4ri++pgbF3y/dgGdf5XRLph j+9F2 jcKcXiN3KXECHisl/PeAQdwkGsVypMuNg2SjEjp6GqU5bNmjYT8EmMNkECbt10uRpKqIftE+NPZ0LLO7 XI9Wk OOXaHeFdt3pNwFJK32sa5Y/nCQs55bOnmukeEP67hQrlwLKlbCtZ/48rstoWl0sK5h2UDLlMFoadjD5R i53z8 jK/E+R8bugd21dqv6wgdb4UgJ7zxwUNYwjgSm38MhvBVRYky6tyW4jw/N+ToxsH2SOVotYK4uFnMoxUy +9HQH sHUpvdj6qDxDudwQYSy+Cureq6CYIkNpPrYKlD2AE0/z2eihcZQrJCN/0uS5llNfSYdVceA4pe9GzmZW gE9NY tBRxO+o8PTfYE+LO/RZIUj687tkIX2Ps6wGkFE5rhbmTv6BjKXj71zVssFmIRLH8ZWiyLdpPsIvvnISn 5NJ4D 9hCebaY4Joe92/SK7jFb6ipnpcTW/MykP5VwE+0tAaRWODtvrHM1hkSQ5wA7ItxDv/Bf9zAyx0LCu5mu frA6e KKGMTe0dzcI0fvcC5tz5+srscyMf+f0tqYJEpzV6iboXayKwdBXDPlbRSn3nhtjta0+lfDAuvKfIUqkz R+xLP xcyrykfH29+N1Z4hMtBfPHZ9i1OfTnK+0UL3HjUSa+MMM+KjbNh/l3R9AZlXemelDuX88jXNi1NsklzH IivCP wwIE7WmkkIiqjD3kK0h8wZGA4C7kZ455b5ZozRbH/jT+qXCrcsrrYeV+kiiiFr45/i1WcaIYPgQ5ASNq fQrfm +ED+Q5ck80bPR6+M3NSw4Aa+hTW3r2nTkrHIlduEoSLCLM3c9R25SX3+LkYc7cWSNBb3+8vnGxzG/M/F uKGSC +X278LHuVLhSbqoeiCctO4jj/pmMuGAbz2elqi0zp0F5Ya/p/fIT7SZSrADc9BSsdozBTEj0z3wQCy5u rrGnw XUXopezrMu0B7YM3ugnw9/cAX3DE562z60vogfc2YX2cK9I4RCmm44IrkPBIympDfzyU7KcWU9/h6L4u TzXMd gMwM+PIH+t+8yabq7IYW8panAUP422byXFxdpDrdVkXk60ZoGfb6r9iU2fo6WWHGh+BPAc/CsjwgtAes kzhz/ Po+WVkpOjwhfFNhgUQDaUP7kW/pXhsHQ6+J29KFnMhAW7OdpHRs6lMUT8VTwqxv80SPyHI1R4ukzeUlp sux9/ kxW1UgjbsHS567euTrBRZwwMjKlWZTc5+M7fGGqsVsrP0i21aOoMS4lEu0QX+UnfXjTKpuK2CwdpD0Xs mtwz+ YqPeqKA09rvQZvE0EJHM/C5utC8J+QnQhN5mMpm9TemfYVo8S0ZxfRuf/E1U0aw3eM2fXzcm51W6heFQ n9IsT 6QsNs2JUlLMjeVReXNgly6sOk+yF8z5G+sCEGkhTrX3WBwzuAKkJY/DK86KGdBJZ+BMCVyGtpJhQ1kYj AbhZa KDOYYEvIJeWtmEUwZU6X711T6hKNFVQuUsHLSXaMgqfYdodx9YJpWBWmukHXo3egWPLncoFfns/m/4O/ c7/1b d4Ef/fyh775pQfF8eoQd3r5t6bPgQ3h1AvBDGctXZo/ycMgjnAl+WIpIseJ1bpor0B/tkfzpfeDifQBu i/O19 s7eK44IO6Fg+CD1US1CmjV/5mrW/BqFs44vKwnb1AE4TVu/V+buXeytJ8kdVd4NDAz/gXMU85gnDy+I9 EfoE8 S5z0pyEgODRuyNuwv7aVTmcuJU4QohSEj5rPag2G9t711QtigsIEnrcRrmd92J8IecPiQjTfQiifdwuU +H/nA iPbV30zQG+OoswgO02Tv4LNiNhS8Dmc2adM1hJ6+Yhic18ukS3ZrECMuCHLWUo5AX8bM41PE1fmapCg1 mdy75 LGacHLwBqvk7cubvpLmvttmqs9zuzYGs3hRgOLhBxwGul7h7UYmmBjfs0u3v3Tw+4pJkpW8/5Hzzcd88 7oRJ3 +B5V/TZZKzj7+P7S9JoWr3tTIhLEUKi1SnFKcWTizPS8OhDCcipzbfXV1f/hhGstZsV02mWUCbr1NHVu ftKOk h0dtwRoZ5RSh1dwxcK1Dc/bfJcJZVv6V04GS6gMgKj9LAdos/T7GtdIjvBzcpE5QTHFnBHcL9wkhMOkF gqp6S wJpiLcs7Cnti+by5Qnh8dV1+3eTk86T4rFhNZ492nJxL+G0bGwrOdJ/KWbYr3C+usuASj7NFX72VGo4e JKVQJ /T+e3/cDu+Q+FMOag7TRfnNU1q7bvDtej3d4RealQaFX+8s8uyp9mK39D7Jn9yUW9K2I3R7Vkkw+Ztw5 vMQ5p LskIByM1mBd2v2bwhoyRjuLVLB1z0YeCRvPEVtmQJZ6Z1SgDYRoYtmDFK7+A3ccH90E+O+UBiIuDS7/x dZWiv jRU+z6YRb8QRaIoC+1/Nyb2+GCUl2V6+tyO7hnzHy2SttFa/xb6hP+xHS32Ik9pbtk32GiNvJTriVatl jzGZB /Ab61Gcf3nX+bUeaDOFhYIac2d3ypLNTI8cZct28/A7y/gkI02ur7biZMvAFyb6k/6W2Dcj8gEDrLhHk Mwv7Q r/w2U43gofgowmiKTeBjLDlrDZ+XD8EbvYkVHmcZEOgR+dRf7icBoxnNr/jw05IcRTwvyAhzqZ+0isM+ pgzbz 6TaTpHftgVzchzqijVIdlJVZQ/wUxSJ7u0h7SKS5/rc0EEdJM6fiD2AOC3Ax78pYkiwI+N+Qsx6D1bBB Ks4Ma d6Uzl+42e6UdJUPUNa+hYaonTE+rM8iHsix3h5/DS+c3/JJb866s3y2PKp/hVPx7z7PBL5H92Kc2eKSi JYRHr nBcL5BQp+h++b3zdWkz51m9pe6dRkj/fn+74VL3fcWzrFHgO43SHv8rD/K6lQKF3gmT2SpIqFW1hJL7V x3Yiq EUSE+X2EaCa4iPwbwOfAQh2tg1KUvClb/IFEoE/AWRBborw/ntTe5au3Lnl6fK9k166+F+gOQ4skFWm6 Zhrpb wX8Fn+C5S/YPQoIq8Nwoic6ErD4TTEhQVW8qOFIaYfBOiJ+fom7UKANCL4VsagVJYpEjmD0T0t7DsrZt fnQ5V wI/m6frPMLs5SHWAoLUGHRQkBpVqOo0ajk9RP1nnc58tN94SaatbEig3h2txAF1X34DZFk6u5es2N4Bd 5ki4P WbzB+qEbvxeM1zxi3JL3HSHWf1nc7T7ojYFI9mDfZGLiSqjutnv2rZzF2cX7yO2bF/9VL7e3xPlvRUef MsliH jFykNxdimhz48XzBPk0nYRgetVMu2PROEpxkPjmvkanudmFHKFGKkaiRB6W8DFGaM/1DtkCziAhBv07S Wr+fi MQCmXYvp8ylHVV8eYFjKkIpyyXjR9WHtBcauqq5+EaXLuohT9nsXBrfMTlAuRqlP+bU2kZVqU/vX3Z/w DrXu5 b80r8IIx9gw/ovXNsIHFBDWcz7008NgJUtocfAdeMnLF56E/tryO5ZKHhImj8J69cQiM5vK9bxeRFqqJ HD5Nt wwWghFEA9embNOER4T/x8iN+uuLPhVo6SJifxyew05CUDPUpexN/xFG/cUbkReZ+C3QsCpeOPUpSYd1n zf79p 4w357DXO8Z8IVOuNCTnYyOaNNMZ16i8rrFu5dE9quUx2LHvsL20k/Fa3jpySyIqG+5D0hHPCHPbeHz6w 9wydQ igMGBmhfkyhtZPOejYRI7ShnULzlk1eGiWC95RYzF/LrpHlO5y6psIP0im4fFKeN1zO9+2h/vIH0ZhDu p4MPa uwjyqVscL2DZ1OlH1X2fKc8nTwLvKjAklLpSlx0dJaPk4vkqBuvW00xfSlTOflJ/0kT250QtdlkY/x0k OwJXp Cn+G/8YT9wZ+V+W6u3U4mp7p0kzfO40Y+fgjt4/erIAmgp/Aw7Ezc4bPEQoj+se6+rCNJqe72ZkK190f zqSqG rYFOvyZ4VuyvRNpfykvf5P517cUCr2PQu2W6vgRwtDyjukWh68qLua26IWFot/mFnfv5Nld8xazZm6yN j5xLK cXxRW2FWymrHQ4a8Renj+R3rEI/YaqUqzd858OhIEoMH9SV7++5k/n9csFQiaj1K9GamgXy60ml07lZ6 d/W+L 1H0zMiktN79z8HPlQoRPbtg/eqLVsj1U0ln4o5aSny8SgNjID597tM9hQouO3JLjBmjTCwpdZl+L3UF9 9eo8X MEvr58YxLmG1GObx4G6MKbFbKHSlu8yURlCnrAJQJ9exMbTsUR5vEupZbSbzresAD/p7J08numxHvfJY bcXvm KwlnoPTQN9nS57GQnoif6nOQRegPKv9uX11XacRd+FA0hJjEXaScj4OJ8HQSjTuOQUqXwA1HD1xW+oOH AGRUq NvUizg9Pkzkx0kr08hJDrB+OIAMCzUCXawyYCWERphpgryckVaeRtbzTDMN/mBl9n0u32sT+dLW0nKxp D/Nf4 AG0059TQBRCwxKimHEu8GpAtyRsN+C+A0Rm0MoqSDPkcEf8i7PA/iIPpJhCKS19gcQ6pgV/7Xi7Dp4A/ p2Ao1 rK2gjc6M0XZMqIT0M2OsLW7pl738C7kAghBYJCRk+rzodSgWBxQrUe2nyuecU2SbFL193HmhCB1XRA/G evrCN FY69VbsZRcxY6iHc9YZSuL/wAVjv8vpqrmC/tjnoncAVJNi2hixSzpwfJD0fcmARSNlQFBIqjYALmrnl i2hju G8cjpbgUDd4b3HOKSD/w6j/Vqy5aC+JF2ja4Zrh9QkNjuA1z7wud8uATfT7Dc0Zri9mU3dwftKjK2xT0 wt7tB RwuzdyhcskD5Nx620F7TVhra4K99l1T6ZN4O0I+VcNH0ZUuepZ2YAzIcxU/FhSyD97WVuK77ZM/BGpSj XMJaz nNjvW4+leg02DBZEr4otPp0hyUxrGJG7hnPqg966czstPFIVYqDpnBAsMdNahN30ANGhT5Y7kZJTeit3 Bsdyw GJXenObZ0pxcxlBekC8DoCt7XdVatUN+cLC9Sde0i48TwTQKdz93elsVg6lwXYkQjH2wYDahNBEpZUzk f0Ed5 Qfw/Txc1UBnww4TRH4hDIDb4AtYUevIZQ7CqIxO3TMd4s2kMjvPLvG7KX+j/mxO9TsZ3V/FibXAZP3Ul DPL8P B0J23ZqCo6Ra6uEh31T9ctbM85kQbIgYbDorYOTijPev9o3QP8OHokzRg+rl2c546wva+4H120dRjVlY Dc992 I/HdF/psZeGdGeL/M+p3MOL7+N48b9uLD9Fjl/o4ceInXGycLvuJhbEtttt0kZMXob56TSJh3qHQMIiO aGqkV gm5Kn8G0aTqF2lJuvABI+IlWDY9SxytXc6rvompwwXBPhYvQSVxE7dnGI/3Dwa0Bhw1QDteBe7xFAkYx wdPgA pOB8CEUL5+xJ0IbxVg47YBxbYDRjn1yfxpS6xfSyyVitSSVZMK9uFmxRD8DYTQXxsbarU69POvW6g4Da gjT6R l0e7ZXZ0ldSAy8UnRCAILFLCOUhvo5S1fhFEupzm3Vm6HaXG/AjKO6/DfkcIeCcVZc+Nb6ur3pqQayKL hoHng q7w3w8ybU4zpWmQAOeR1PeWIfmKMARztuO+VRt1pVqQsVWF+HQ/22tBvgrVHjEAzoPmG0QoCPhSxnSmg ADqAO gRCzUXrcNTeDEXIArYOaXDHsVt2uWIhO1pl0J+lB7LBNBZARUQBW7gDasbbDQyPWf5S7KZ92ZiLNO9o5 oC/oD AlYBW7cw6FZlWCgkhBM0DYzT/AH+Dext34G3k+QMAjrY2zyZAt1ZoVfbR5S197Ap2MKJZ+FYD+FdMDlM 19r9l gzYrSVceicZ3PLhfghB0yijpORpVhOOMuNui54I0QGsW6LKML3nixNz9IBHdPvV/R2utlD0AJyM64A8h 1c/7j W9aMukvFNAeo/E09YuaVxbbP1JxTbr6Ulz+6v8oEIurDTaEQF7135nYKq98td6yHGCrnh5sC3lWN3uQo kC0so CcwXZodeA/8TloTOiUlG+DbuQDjsyJR2gNv5rmXxlcEQ7QDgFmnPbFKJ9Jepnwq+1wi/hvb+VSh8FUek 799m+ 1+cBA6asn5c5ZJ/aSgnCk1FkUW/B4omtKV/ANbQ9H/MD7CT/ynpRP+A0OY2840ms+evzfRFa8H50NguW SOvHt s6lH+H3WfGyKWY28ydNyERLB/2lxJrKR8qIYwl3kI0gMHBr0YNjI4T9fLkXS6VE/wx7aq66Ux0/hnKsa tDfA9 ms2Kj8w76bFBaqz5S0skyYE45MHHjkFTSyFDT4LY23p0Ccugs+kq8baVj+S4TekR3pDUi0U/D/i766g5 8vzdD eq9XmW0GlNTQOJQuRehJGpNyUH8+hKhdGdi+Br7AbZzOAyZEUaLLPnXaq35FkEKH8onhawi/BmfZG8bg XyFXx tmA3c5ai7Mbg4c2V6yigwsb+5Z/DbTDD6wYNV/WwCoYw5YokeF8A6N1F0BYKqtz/unSP4KqkgF2Uk9gc paiZR elkrpJNb5syt+7r/P1zqT1dGYZh09/W6teyAOTYEYfhxmtNNOYda2GQN3fSp6166jHeCnhy+Nusz7y20 w5B+U bOZAPBhO8J7qeADl2n+9JJtV7U3QEeXXlshGhYuX8qUYUpzBCbRCs3Wy2yBHnJyz8XoDorl3pGPI0wpk ry6VM 3NQku6FQANsiqNSmsQCBKEU9g+bnTHkoodXFKiGNa4tu/fvdiPn/O21Vaoy9XFek3MnvUsyviyha0Rph ijH3b 9hpucv+BCS7qP8bzsbHegGlozUCCJGhDQOfGS1cq1hIiOjHxS+qM6atMaRqeEmEUqFwLp7U6gre7BwgG BKFX4 OvWeFhFglgOBhYRnr+sLZuavGpKe0pC3NDr9aqv2PNhzObQygOpSlr/GgKrm3VMJA+xQNvYych3H34at 5W+A4 Hxa5NkT3Y7NHg5fouZnLzcy3QuGQy872r8d/M93+G2Phvs/2o5Mc3VId54Li8tOWIIR4cRlowIVCDZIu YXkZ6 /tmm8JTPFYjHkqerMbPfFm+RBi0Ckc+yL7C4KwHRk7L1ECBK+UPBtRsnudbMLfMKWvwIM18jUvDwyPMh MtZHs JNDJ7iheC3y0l3mcnwR/y+50pr7j/dS7SWJ2h3mbsYH+I/2V5zF6wuY+Dj9mnCVXyyZKmFCRK2esaUhM 11B31 xUuh2QvBIE/w/6QMpshoT1XNw/WeGNYf+/XUP/8j0dojbXtazIgYN/9BtDN/9L1nSb0cTJ39j1sld244 BQc+/ a2O+rCfIlC0yzJy/e7+8qibW5Qpu//9ZS+/0HI/t2OCID4x+De8mc82GFar0j300WFmjn/e2lxup6W5A K1vse Wj2NtK61h355rk/9sRKT3qrPYhKQlAKl7AJ/htb72UYjY9GTwH+g56ET5u8fsXzo1SKijSx9js3TrO2a izVos imXftL5Cif8EBz4CuxNvZiZhlhsoFTGzQ/bI9KXlA5Te0YB+3tW27Kr7F/m/Qd8y+TCSq29i/qkqVVec 8t1WO LBsNnUvBiI6zJDVeykyy6NzJMsIDrDBPmZsx34Wd+MqG/CuCpn9Ul+b3WGoswH2AY8axhPL9OkQ2lpO2 8XPA9 0njDwOEcl15ns0fmco72PTGqvtir7H9p7NnnBW53PWAxqCxisik/romoo6YwUggE1OOWb04KjwYf6jx+ wxmVg 4OrZqungx2xyo4NCsI5ixGDdO+L15Ip29m4Q+nbW+ruperto/wXvq7cAr71XVSjWckJC4O8hH86I25x/3WeF 16Dcz 5ClEHbD4c/YqsC/Z87QsIvjm+5w2qzqr00J51l0SSz5XkolkN5yXmuZVPe7pqCsgOe7I0C6OGKFlC9+l 5EnFf Eq3pUE/poZRmGuBL2ns6a8GAnMPa5b+HwnmDupU9bSyhpj/D1cbti/P0wh6e0l9xIphzgFLO5cWiwcrq A/415 knUmvBfcz/ttm+MTCaUSb0Upk2LtkR/uORQrfkk9wop3e6+VIOwaRH5R37bd8eiN00ihvEzKYhfxNftD 5oBlI o39Nc7NXuZ7Bl3jfQutSsDnOOIDi7IeONTicFNQJNXf6CBAsG7xwhUDKBS4iK4v3C/UpsYV25gfmycm9 NZQHI +SC71pIUEbmQe9HJmOyURKgMLIivtCH3GnrnPiF/PjGa4O33o9cZk/s75tqfAwVh8sfmKQrZ7wdjQN4P V+wvz K7EStEVbVo6xY7utGXttDoBA/KA7aVLPj4JziE0gikhu8zBEgQ/yqaMwPbqqHhZlbb1Lkxz4A8v+/T9m AbjtA l2VczA7es6PVazir8eP8Hj8bMiJN3a9cgG5opQ7TOwwwusNC4DQiiWvnhcPRgoII/sDdD/G7Ogjv1vta O1fGd pnfu3MmVDAw44My23clNlJFqbnjzD9uLHj8Asz+SfdtK4h361H80dL51qPoo0xmQI3HdCj2QHl4+lN1e bD9H2 kBmSKOoa8hdZ55nzY1ZmwBEsW8X2O/oIuZPkK/vDzU43NF1wVS2BtNAYieMLA0FQKnUsUmWkXXZgIxRO GLk43 gLsVvnrvlmMMefQWHfxMCjGstv0stxC58ppdi0WNBv+q4JWjejcByHQXM/1C2Wzb7hbkLN5zYZvIbEa/ MX6Ca NXJ12FnV10qqYqFrnMvc1fOi4DqkVyeB1Xlwi3QP0B0MkpCa4pdAjF3O8YFwTTW+rJoii2hU8YZh1aWk DaUjx y78oTTdVGR0ZBJ4R6tQMSaxMkGDLUhUg1gUPCpnDB8ikIERWgr3572JZBfYm+UI2gDyukgx4x0m00p9D GZabx iTNi1YChdnoFfLxppI+37nTzjo7I0H3nfXbsftAxRQ4yjJDH3pTjcNF3EDXLkiIYdG/N11hvXpRbiaDJ njG/z 0G/m+Yy7LWdoQ6Ufmg/hm4bFDdsdhFxFkvLOREr5jvunPBRFHFJ0LXEibhDWKolCVO52FIqQX6qk9F95 uD5Ex 5mXyj/Yz2dNu2/LKVUXfI9ckZ4P+bb8fmSd4V+wQ94PaTcNvymhFVl8HAFT5gEkgy0sMsG5ZpqU9S614 cz3HB gCeQEKgaqBZoEGgSaBVoF+rwaGbQZwoGmXz8WAhv6EV8MD+YCv3rnG+LmtCsW09XeN/9gXnL2Cns4ggT CUpCV YTuWV3SYZCkwRCJ3TMjRhxS+MpgmgiamrsDtb8yTWFQfEC5etvBWPT5Vy5s4FSEz1noBX9hM3xzQREl5 schafer/+9 4avId731rlW0B73JhJ3Cqp12Fep9oZq0jfoI+enS9/rhv7Appgle3ziiB1O2+HLuRe+Pli+4s/Xvz54s VgYnB f1RobsaDhs7VyhXCewxHetBkbEf5R67dSjxfJ6LAbyuptf6CTeVvfK/O2VpuIxGn7syQB8N+qy2op6fe BuApx cmxvvQrN87OVVVl9ZL40iNfuPrg7Zl0MLMA2m01tWKmSOgFybH2JGZLTksKUClAVGxl5Fj0im2nN317c FL+2u G+29TaOeSnF22Yv7Hh3B4ecUdQtfdMJxtPk4AGsi8nXgxuyip499N8C1a/dmYy+Ze5jpEypd+o9a/cU7 fnt7g F1234p262jrd+3QN8kn+25rkn5Iu2NoTTasQYN16vTIbMBlgAKj4a+EUK/8W1Z25Fy7e30Oh/X/tP+L4 nUDTy u2vQw3hz4s0DPoi7Tpk8fUZti5neJr4TMWsbk/k8/O9uXu1+t5X+m5ZLt5VUpuhnKkfr/cd9YW25+MJz njHAq 5ZPAJ1R+vtlulF7/TMCc0OD/+eOo1J0Uu78f6e351iBg9dEN2u5q+7Brvl7eS3TEy803yumscufxw2me ho4bO fonyVN0nCgXhNoPR8Wj5I69XE0B9rqumQR0ZsUJ0VmYek6hN/4hmcJL9caLw0+6zWfcKnY/k298aKfCV uUs5V ssf0il2LfL/w7CL2YUAXsl36uI0gEyVj9nk74FkjmwEx6bijSGWZeOxyt/FyvxkIa9VGa6Lqujf015Ww BW8tb j1jYwWug/3ineGYZ/hncW/d9opoFS449/Ui963/S+5f3W+31x+ZmOe1GB/Y0E6lwrtkiM4kNt9ktBZx5 Q+USv ZWBvJdUF9RjNiSEed+77wjdWjjnb34MnvwIe9xxdSHojxgsfgP1Dyeq1m9c7yAGIO6J2oBr5LvlulWm3 J30v/ TE3KW9s/Lt3Pe2VNeFTtAYWgUdQ33xPz7WycXCeYtCvJiQkUyVkayajVWL24WMFdQO5raSskCuNSNuWu 2i+tE XbOB6jaKCqLNnIFNcILTb7lcr9mOHylRQqDR1WJgMM04RIzecjesHOCVPdWU1NLuXSJl4KbimAIt6CP8 UJ0iJ fU2cdRy2D7rt6iZmbgtM41LalCimXLsc87G0q2CZ04XT8UflW+JB8k9XQ14m2tE+F48ETbZ1jaWrAkFe mBeut qHhtjwCdE7VzFkQJWARqqgSSlfQmkfxlGyYd+nEUqKgWTKj85zhiE3bJtzIOxETonHWs8CIIiLgADghS EOKFR MEQeGyxILdMZWM5eN7oD0jc8LXjFAlERxZZ1SRosYNG2BOEUUihIxXTQ7QYO5BHY9gBQ+hUTvBTtOCjG CGWKg kGQKEmLfiEEtDQshVOCY4DEpMWUZgIRgWn1WK/uz9LgRfQJCrhTLXLZvK8SRRyuFMCYJC3cy2OxWrPEI otjKW 0ywysMuYFPxIQFUknH6WqryLULjbAwWdwe1zAc1hzCFzFOd5L18lkuOo4VUknf1WQXhiFvvydmxONZ9P wYQ1l BfyuU8cDUzEJhxD4fE2Q4acuY91XkiA24AOjBTsOQ5WfAPh1yRNVe0IV9SkkZOxV41SZ4BxkJUmLH2SZ 6QbhF WGrskJ+V62ZXPYFOccdg+M0uIAgU/K78v+U1coa+X04czyP+UPlRvkj+WNlrfyJfEr+HFgbfAI9gb/Jn yub5C /YOvaE/LKeq5fy5Hy/JX+tbJG/CI7DplokxMtwn2mea40+Kt0NkuXs/INyi/yj/JOyXblV+VUNw9dlJu mnfKp 8pnyufCH/Iv+q7JR/w40Ddqc/yOeU2+Njsn3tKAT5oHU0Qo1yv0zdSR8ist1KIX2WXNKofikcDdoSmuk QZOUe EODbBRpEjNHHCgxT4J8QRy9RrEon7IUHH4aTm2lptAjJVgtGYsgHKmRUPrXWL8Lhxi87vImCCfH/8qgS rRxRy hlYLvNDo7BQnvMSoCEFske0ldMmX4MFF78MVc0tLFBHcIHmCahetjsrlyZMPCtucNpVXZmAJ4eb8nDUA TmuJC rkQmKUw7CrejhDHqTNzyEyMjzCrE09AlmftJqgTLbqkQE3hIoXMnUm3X4dhrRaWe5pwMUWGae/Uxor7y lNlA+ HehdCFjJuP3r5u3Q6RYwWmf33pFtvh911UPf5khF9T1pkh5R5R2qPawC2h4hLx6r2P0minwo7E0y9E3x HN0d3 Zw4JhxKxu4vsa7NAz7EzilVuf93ndZMxH3AihDGkztFX9thsDQb7NbixTXjnleCQPSwNZ5eZ81m93Qpv HSMdo biMhcIKQV7zuu7RNqyHjIRVqWZFj3c2OEZKyLtrKTNQwYi8VNKHo1pnrWAHOggDsmUumrWWEaeieL6Xd UapHt Qq0wqY2jxNivp9tOeUjNT+N39Azutq7ZP6HvYKDbMEXQKprvjVjR2Y3fof8l2q6urk1s5N2LmM1I9xA1 eKu4u 1j8ugy5o7ovbW4iGme03r8ieqqP1m6ayaClCX16n0kzx2X6zKcbd1G7iP2UikLa2e5iWv5TWHuWgEbNh cme4s e7X7x09nzfcchUQyDv1h4q/L7t7l3mWu4f2p9fPcqz4G4noiFp7n5dK7KXqF9gr2RZug47Rhha9t6Sml C92L3 XjmF22M7VzbU97s7Jtla30k0Smwp9yj3Isp12kc6Nwbw6f6r+8s77Kc9D95JwBwjmgLm1y8e5j6s9hJ2 bHqOH B2zOxlK1xTpIOsRV0oFpWdom7ZKvLgiAMcZJGHX6uJpIPra6AM3GkaKbCY07qAFwuwk2bUEAU5zL4Uns J3saf YS+bx6jWvfwnhPRN2lG03RCqiWtXznRLHohGeoL88U2hpodvUvYvUOpDRtAh0OegdfeGBnVnSA6U03rv xJnGz sAN2YVdsMkmvoN9nYqtTng+mcpjjJEVLIbkqbM1IM6uG5sS5lUpUZz3KMvFFsc9664nQyisvz8UojTuL awIk8 wGMgGnw9ybEOXDrTlZIMnvq/dVcNU/ZCtvkH5IH0kE0tUiBWyTVPoeOD0HM0r5gcnEe1U8ymNgO+LB4R HxLfE e1C3iFzRVeNl2v0cakMilYx0r0eAzCEhMB2NLquWjJ+Cc1nLaEoOH0YswhvET9IjjpfsBiR39ZNtFtHF 8VT4i viW+Vb3hb6PAoZG/xy8wPOXUVDSdyRDPCuSWPMB7qUeZC8dv2dlnIK8tH3WYdSvMWHpyiwNVCE5ml3M1 KljpI 1qGBQxuOR4KF3kuEiTczPBAEdpdvqWHahkVXsw3r19ukei76ki2fxPOg2RjWmvT53wOFtk014ASeonP9 wbXUt BO8VRpdJvg7hj8tgIEsb19hDcCj6Hb6eJJhwH45uIKq5Dnz/zz9nusW84+pnc1fkfOvRw5FkmQjsc4C7 5J0bY E9m9qc1v3ojpp9wM1GYIy8J1eX4rk22t4uW3eQD3ji06Fvl6yM5a9ofPTXB1Ufq41W6rIUnXJodK2zTq G7T5u v4u3E8g2kb0DVpYtml2nB4LUfmuYPu66M3I1MKftOiIU3G2AS6pJecmnSTbp8FLhUf5F9ts9PnkCh240 S5mtP mwc9R3TisTiuqy5iFbBi1hBxy9Ru4fxpRs8VeNf1HIiyosFg6C8MPeTBqWDls6ir8XZ8KfqQB7A7zn7u vaGt1 i3T8phvwvKnT7uI9O8lz/bGvcf9N5iX+5+2ABpU43R6n89YIiYu5e8MgekvuixpT2yfyV+2R9DSCpPbh iQP88 hobONp3L2Eg+pxejSPy+C3RCTd70n3m5/u40I3ahvIdvl3RdvINoQvBjLiZHxRuTZRoXDgMLknpwwsn1 e/Z4B yaIkAK9Ok3GYaSoJL4dtpnbLdeCB7xH06W98uiCxMC1taltUAW82k0KCPA0sx5NSdW8Kq3sCQF8cg6tN Pc71n sjxXd3BWQx1o9erreisPx+5Q7iP137g18qGcUa0J06lsCE9G8xhl3H32EPnnfwOujdcb6a5Z3S4k+Minnie 3oneS b4dy5yf+fpI/8B7IJ1ylFJl2A9Uw3FY5O/ID6Aa3PU5ulzk+3b1OejYgOe1f89gnSq17pfw48g5pd0On BW+8U 17Zof55Qe8e/pn+pf57/Y/5z/lI5b9vR262M09Mm+hn2oa6PK9UW2Ov4YC7vfdrMlOn8fG6SAbdJqQn5 d6p3m nQw+c2Z0mtt9c196ajr31k6q5z37+mb0laSl+Wh+jj/Ck6bv2w/cf83+rz9Ov1+frC/Hc0AK9Tc2dchR /TX9d f0N/Uz+pv+Od64iui/ZX7WS1Bqex+0d98amOtk08rI9ugY90rZapqD14zI1DtiV+pf9rqcN+8g5Gumu7 L/te8 b3qO+N2suuU25z/lH+w3+O3+x1+1R/tL+cv76/gj/FX9A/zD/vJ8Ny6u/tX+Av9K/2r/Pv1t/1H/Af8T /mf9r /gf9F/3P+S/2X/K/5X/Ag305MT3n/vf83/g//X1DrF4hrK/C7KOZkUxGCMbEbUtmjkmoy81gWdwAdD0+ sN9IZ 6Y66h34hfPy6Z3xC6CH+cX5ca6B10NR2986XaLn9Q8rUhss6Uf1F9nWcTs0UzmH+T940xLjAp/ffoS/S l+jJ9 ke5KF5FU3v/o7/rifQm+5i4dmeb3Ph9Yuio0q/v7vz3v38/yz/av9q/x3+iM9pX0XsuP6D/T3/Nl+jrq 7+vj9 Qn+n/w/+3/xv+5/X0dazWA0E2+VS1ft1Fslp/HRUAX34znQm+2f4//V/5uvk//A4M6quk0C82P/33/S1 9l3n1 +VVSDlPKriBkld8ed1WtlZyBxotd/5I+SfgKlCDrPQU8SjsCcZSMcMUtKOlZNypGTrSr+ay2Wi8t200u qy3kH vqHfSO+drpal3f29H48414TP7oozpwycsZ4/T++u83T00ZN2wDtl1u/uA/QL4FcjY+a25JfrS8qQgS1d H3I+5 j9YcM10bVFMJRtouS5FQ0iDCDauJsmMbFrqdQ2Q1gAFpQ49grln5RaeyB3Fp5cPIKcwP4kr0cPZtqswb lF+Vr xxvTubfr5U47scWKmyvaZehuM3VQjQLilMosGIKHrHV6qkL0wqxRo2ohhTeksSSDhmLnADLTWtuWxfmD 9JtDi QUxkoYbE2yxZ8EaxmdfaAkJmckl6LrdN3gp+IImu48dnPuHfb5j2Zdk1coquDJhwutjwwcXmVMVmBXcz VUxth rboS8Cvr0Z8XwwO2LNaAJf9x9ZRJUtzpakn4HgDYWFSbygxmQdWlSrUg3BVpqZl1ErdGQrjE5F7mJpZa rocyy 0UHp64qok4f0gfp2Srv9sfbZVNz00OzqeGfMJ7SuK6avXfDt30hcHhKvMhUvjVvmNpto2w1rrH0hTakP zWJ3s rgwI9uB5uA17S24JijU6dI26eVqN3hSTaGU6C52O8xCAUOLzCT5iAuu+6lGve0yje9fCcrMvmn0rVqmp 1ghO8 aSeybUZvGVV36rXIxHEIAkv1nvLR+p5dos58EyHWyBE2dZz0kvmU3qb0fqoAy4ox2HdqVn2MO1C1wSuJ fH2a3 eCBovYSR30ArfO0jC2FSxLRZQkewII5wGPWAaDq2AsWyD2+0RzGom6MBbb0IV9ii2NTs2QYkejtKK39v irOwM RBt298J75B7pJdCjbqr3jwVEJk4H0GbsiBsk0hbgqOPxBN+q96r3q/yq22dU7yTuZ9m8LfsuomY4v09s rbOD+ xG7ymgseND6MR7TlVz65asz6ZVr2jmhOID4Kt+q76hvq/6Q90FnoP6fuaoSAHq7GfxggQObR6ZOqXxSR udI5x uavvT5f4GtzRtM+gA1Wd9gwza+k70ufgN4jjpwiUtpcYYi5aamPSD9ahZ5o4jInqVEbC9WC4SUQq1hdF Y7fc7 q8nP1g8iHpgM6Oa7ixom7Nrl0VvxqFzr4IsevXSj8k7aQ5UZbE+qe9nHtU+no1lQZBj2irccJXf4Rwso Oqc6Z 6g/qL+pP6m/qj+qv6s/z81306+BNrZL9Rjr0A1O8gmsEJoixtB8JVymNiY7qY92/l2YfztS1w90dmmmf vVt9U D9HtZmcnoIazOhcpn7yzDwroR7munK66PgG00OOrV3gdn9PxobBqA61OoW1c/D1BicYbX+wa5uhmghLL 7R+Wl +au8W8t7JipoTFc485hdzr+q17giq75u4t4zfadkBk3vsvug2d27twnjxl92djlzmg1AbnokCw8exyBP E1laZ OZ5KQpvpbHiUVevrF94exyRDrpCnMP+eFno9620GEV+fVvYK4Dl03MTyFbyAn9eqvHSpj4rRcttDNKkb 8dEG6 LFXaQOWyZTLGvNwkP7hvhIuxaJPF7gKkhwB8w1Hm2sK587m5xQz8Lag7d0EaXFhdKs5p4Y20MIycpRVn q6erl 0t2b99jgsYE4s/J7oIzViSmpeIGi0GK9ssk5qMlt4lHYmdpy6xqKS0PdORcUHjf4yBKD74WxezJTPtjQ E1lqa 0aQ6GX3INBoTmgLWpSCZOC8FQ0qVGMfoY7PV/JADzDvXJeZvYIuuahSVQfBBkjahGPfUknWWV6235RTK aQvSY 7XA+8PrO42yukube1rNwY37PZx2Zwhhx2YpfY1HSozr96dVMuuPAAFIzkfXcqeri5SMjt3goWt6aFRL9 qEdUy oqOR95l7EC7AAvntGYceE3LVCioechZbDD4MmyKlHu0sZcj28o3hAEf0qyq0tPY3BqBi9KypzjcbsqEH c7Nnm 8k0A2yyu+n3v05cCX21vdc2+g83hI5wRHI51NyF42Ony+oCqjQSe37sTcvcIhN/rm/W39Oaq1ZjkU+HP H9a36 rfAxn/aZ8K0uhQ/5S+UU1FhJ3BC6/vgZw+46tF3ets4Yp+93yf62/4HPrn+m/66z67/pn+d16T90C/1P +AJqD pp/Jd7ILrZfnwFW7xTyHVmgE/vaERdIWUT/Un+nqAumg00/K7jJMw3U/r6gDn267o361kOh52dFlh/J2 Q8U/6 n/A/7D/of8C/33/YX+Q/FRbcC0gnrDIaod9L13lmFe0J4y1dZp8h9rj648m4gJe0m/Rc1N912wHSavGg 7G8Iz zKS3IemKu/3JGgJZr2d7Zaal51kxf+V7FnIDrWGxrKsRm2ywf57h+j92mmBYbC6TytS4zocZm8rqdt6u +ju0T 4xA0O5WnuWUuZOOsFe0KZsyr58lJg884eVeY/u2kiq7c668uf893tW+4Cp0+mT/M/750PU1BI4k6Ox/X 9Eq9D kpzlf4mL6Zc14/6P+y9B2YpGp2EaW77iXZ8yfhd/sk/SP9B/0V3xM/1j/ERqgrH+i/xF2pWx6tNFxnbe QBrtA H5zly/TVb3X820evicIueUFizp8LrBv3+Ua6g2Vg1zMv4O5NzJRnu1oyZ9MNl588+c775eu01ynpGhWs 8SvfS a1Q2FiS7+++i9AfO/lj/nXfIF4v8/vKZ5wx4Q/rnw+N8jb/En4Z4Z0V/fm165Z5cMj/JfnEicD03R6DE 0X3ix 4R6Y27sYKF9PZiabFYoXlfpH4h+Y/CtO7JWu5/lI6sv6/8R/j/YK+WpL4Y1oYXehVyxBeHFGqyPKSZND VoISD EGTuPmcIIY+igvkKjiS8AGKzAsbEtPx4wx83TJU40eqvSRNPn1wPRchl1v3QS+SM0rF5WQKJRE8rUaOK dpHtZ Q0NQ26H/uPWwHDaVFbA2VVbzTGqywdUjqR9eA+tD5hYHcbQUBIKGRBw+cOgXHFn8ww4KqsPpcqQeln2X kO7ka zRfcbB+QsohZLtkPngzlxQTx7iZNafBR9+WvTclbjrvNVh0Ldplm0c0dPEFeUIVI8mJnI9doQ13Z8d5Z haR8t zA3oYywrfaDOuLkP5faW01M9s6WgyunLifIdw0Z0MzZ6INfzscwURbGbZ3whP77Gte6itGpJQgu2xh00 7I/n8 /B2EnZEaETPi7ErXpkLPTmul2AaGJuJZ4lCaAS9COJgqwW68xwT76+ra83f7uH6mE5c74imfc9Xfdr+T 27dq2 bg9tMWdfyBjOq0d2Es0sQUGEA+Iq+T9fNIzVvujfmoqzJrX6MBipbvAP6jVVVNCLzy8j4mKmCxLkTlMl igKI6 nLeNFWoz1dIWEsfLKxNgisStJGLKb3knSYfsU7yPmRQjBATp53RO3gIID3A4M/xULEaLXMB7Gzt/KyaE XAhEB +BKDUYDdAuL7MVZyWrzEnXkkKUhJ9g06OM9VERWJ+pE7iJuh96tzPV7AnnmHVo7J1cTRUQkMZFAhJ3+G uLpKS H5TvjoP2zAT1d3+RbdCxjXVBKzUHsqxuwKGimAnXLfMK9NevDDzQUCbHyLY6nE1dIhgJUbOhEJejq6jE ib+2i xuyyh3cS+mkFqzvfIOlxt5zH8ROGajka+AVCkZzkSQwU/gQivTEYTzZcqf0SWefdV4Nqz3YiX+F52E+o G2qI9 rQW85reXUcOAEzXLjwontGGnTB6ZxBIe74ZULbgF8cVW8IV4fvGbo+Gg2sctaTWbGHn/TejoELRgpxA3 Trofe O/VLqN29GhdLpZGn9Pt2TxAsF1gnb2pIA3QKCwqOAicextSCmIU+cmv9LL4hit+qYX1U+iZQRN3GooGU SAf4P R/xGKIHz9Wd+vBvwVlGGN3O/lgFbBSJpT7ssHtYlO4Hv2XOlf+euxp4Ay/B2zQFWuleBD85YMMg4lPZ8 vZFFc JzwwitzDNIjokDNfDuoeBdF4S8V/gWSPYz2O1lo8553ZFsDpHLnlNx4tM9X0fT1AVnd3leQt7CH/JXZs gwcef A3mmH5rkdnKlIEIifkrDgxI99IgKgDnuRP2/ttgTBi1u25HyPo//VwDZn45wZsQ0kmrTTubuwA5mngXo UzNK1 TbfMPjMkQNMMjLwZcpvJLpQ5E2deLs5VEpt6gk/EhKwsxFnIhijCj+ESsXvdbmtO3Mp4xFfTDFgAhL35 b72vi +qf0TU/sOSTe+ggSFCxWVzv2ciFHfjnfoqVPxcKYEoOMf+ODx0u2EdJcFpkXr6tKJxoebzSO8J6xE8vH 59qBg eOROKzOK+mCNQKgWoL2Ja+fGb67KM2jdE7K2Ch31gUMD4IF0CzHHmSpKNkinfBA4NBg5hRXEDfLzgRvF xO55h Fy828nXYvNalv1mym1/y99rUhkLvuyHaW5YP7YndG6jJ8w5O9k/5QGXDD5k/C4EEPyufwi0OCDM4s4TV AAYsS TP1CI4XXHKRoV/BOxG+dgSc9wPPQ+HGZZZre2XTWICd0AI1C7PsVlY+mGwcqcOOoRJWm8HPrvrvLDteS vM1DW b9CT40eXhxkXJTBoWoI8WjCnwjuic09OkqBicYfCpDWa+tVcJkJ0A9tjOeyR5DOU3T0MZLkjQZrSiMlP K6mel LJZIDY3NrWqynfHPGFF4fT6zyLvRD3yj912Uomj+RoqO/J4NHNPWzNTPo5WTIh3/63CQDPFn8PEHreDk 4j+hS AuwS5VzFjdWWKBU6LL6voXYzM86gt4Nj0/SUyaaalRicRNvbipgD8oExLCMTrwnMwEkvgy2nKHpDYtIy vzLsW bc0jYIizQs7DWZ5vXzhcGOqYzBsHQ918GKajm6TiXksjz4DPZGhvT8YWdOPW3AZWqWUYFNNT8FDHu+IV Muxlp 1tdJNNUjEAWaRAyX0N8DVPlkl1STC0ASkFBjDyQFhbfqD5GFZ8gEWprHCvf5mZdJAR6Xz/ulmTCyCeFm G2Uk2 QVYDObMe1KlXNTp7Zu6amePRHEGhavlseekFmbt7rIxhkCGrBm3f2AHZ+I/9boJ1laVl3REewQlayVXX ArzbU +UDbttBtQEWLg6WL631VjPtIwMLP58JG0M4TOVCsFEjr1ktWDkDo5GvqM0OoV3wkxmkBwlHE2q6Wvp4z njGjL XmcllybhwNz0X4EerRM/fA1jJiNn4/ETivAyctVEkWULcjf59cp+fMgyZwBFo1vG0I2W+0a0z9AdEhKK 4V4PI HT8o8JBeLlJo0Zot2phguMVoSNNExPgNiYcOrMfAxDjNTkSRkyyjZEflADYCLJp8obbJXCj4BUhTQfC+ zsGhU gEYCvqMZT6kkSd5Gq2KD+GjKcQYhqetaNyT4Uk5rtwHVW6JSXi/WzJiCe7VLEFdzIZgi0qbpPUTdRL/B YEeBX uUNsaOtZYZ71+f5601EE7oZBIYhWjHvCTZ6LCTC7gTQXPXjoTTZ6/T4+OpAKndGvgMEY1R8SEuh37Z6u FBVsg x7FNrxFwvxEAWLzcPS+YnxkCBFfAUye5/UhBbJxsMUFdUDb5k55pTPMBb1VPfl3CU/v9zcIwiiXYwx64 Dzjbx nGJ5jw7ketJsBjKq3nLa1Dx3CwX+H/3YmzXK94Bd18DJmEg0n1IXMW/GmUK1RBGoUPmLCj1iR50YfurX ETujO QxkoyEzoSOIJzSnAazO+9sHhtqRLMcZ/Q7ykfh0AhrjFi/IouFRGFm4at+UoOMF6ZflLLy/9F3HvBziu /rg7u dqWbyaX3o3QiMKDfh5d1U/Fe4hTM5kSCPEFUZDr1/4k61twnhlX6Uj9so4jr9p1N9T2YVIPRxGRHmlBw QaSkE DcMPyofuFy0IWPplMmFYgRsGnIP02grbHsQw1fwmWfGkqbNwKyvL63CG2tVA22Wv4lJojKcJlD/5mZb5 INgsf TX8+/7viqTp8+p5y7311y78p631hE6VvTQb4Gfh2WN32Zh8kPkoNQ58CdWYoiYv8OBd8OmvLqJD/mF+C fgX+u 8qris3VcLx1MjsN6T/Le9ZxR3iu/XPdSr5dGNEXdaMGz1UB4Uz5DvbISNRZbLY4LLhMFt0spK9vZ0sH7 tH0E1 03FJJlZdm98QNu7HNv1Bgr5AtQsKFQSDOLUVes4F2TXpzolqRjSiFFkzDTgIRnjMPWsDxAMdigfILFtV IoBKf qlCEpxgRTnSxGQok+KbTX0LwKAebnWjdr7ALHJSb2B32ydXpwrZl1P7enjksIoeWJjlRnlhHwvlRY2Gy EhRbs PY4Vnr8NMukNiueTqvnXOGCkbbABmROwvHxIBRRrKpBBQkChkLK3AYdsbuPhrcUnOGIGxmHPTqGmhXMX U86So gROgAEOZgVPtJVhOVrjDirgCMoosZvZwmAcWNPYHT2OgXdAAJAUYd7CmEPbO9EceZKfSYjsMgUIrTELF imwps wYZxGORsbXe6pQiCfKxYNpZsFN1xMUAfYCCkuU7BdeRYAUfF8ItiFqMylGQErUV6BUYVhUVursLPTIOn DgpxQ pwCeZz96S9VYAuuTrJqa0Q4d9T/fMMz8T1AHy/S/YqKT8K3c9O97maEKq/HsBBRy3T8wzPlYEH32C6A4 rfSvE jJP2ahb+wqGUYq2Z2EhsRqRvNwtQSfCrLR5U8JcxxA/RvLD5Y7qwSiZABc9E9USIYxAsnbnbjzPlBD6T 4sRQ/ kuKHUjwtxVNSPCnFYSl+EFWdMR2K3qNuPbWyySWDXaJIAM+L9aNxUpYwMMohpDOCqqSE6Y/IsXRwx5Nu FFEp7 dWwdfW4FHC2VC+A9q0t4ktuPSt+U5QqYelvnv2D5UmGsUE8C4inVqIKHZ1U9zXxevGoE9U1SYklMZRrV DdI8V HbgktgO1I4XBmtwYdYcg2F2ZMlpjAvC2K2VoymsvpIjw7C2CybrbJsfzCfnjBTXS3SVjP2NRA8IOA0FE Y9VKY 8MGM1GWR0WGR3JFZ9RFA4VPP7QTK4RYP5AGS7GQD4QEV8QWY4UFE9THRLyC+ozH+ozH+ozH+ozH+ozH+ ozH+o zH+ozH+ozH+ozH+ozH+ozH+ozH+ozH+ozH+ozH+ozH+ozH+ozH+ozH+ozH+ozH+ozH+ozH+ozH+ozH+o zH+oz H+ozH+ozH+ozH+pDHkwAMjoWKptiVlkuJvbdFftiRdkpVespJznoPakjNjqqHcy8h3BrAu8WOOYm8SmC 3OdoJ 1quVl1kkFmXVQaKvNbcevNdJlfqKStPxEEzM7SmCcJwxgGXhMkBXgRDLyzSJMEDpoLcxklGOwCX3TWVW 2IJv2 GlpOofL6nE85qIIUsS5EZOe6WKnBmrpk8KFuKpYFAV7J0NesBRhf4tUnDlMVNJGM2pRIW2selRLlNIJ+ gTkEd nuoRxXJUNupLWSuyHmQFrwXCFf4JtkG2MdzLXo1NEACID13zVxnMTewLblZySmUCCSdW/TyCqkW/xYLO ErRIt CefmWYyIh1DrkM8reqFzICTRnSMWMoBMd9DZSwIBcPPAnjKWHHaqY3bezUyKVSDMcLgFdSOlu7qgyJB2 QnTUw Gsmf4YZV8wRKXAZLOBdasqnYNjFACEu9eT0XSYSMTDYKcbOWNZYTjaekiQVQfCOCU4CQZziEYJRAwZLR MJMgo vXCVvRLju7ovHBmJGBWxLuXzueLdAtNM5JP2sMd7O+lcgB3C2s3tMZ4S+Wsv4Ek1OvslEhOlY8ZT3DKW +LOhP go6La++P2kfSmxq0h1h7N5Ijh0asD2aP6V1FpGeg/NxGjzNBrorfGhz2A2BEkj9Yih0Gzz8CPvUwSPNi iCa/E KWfC/mAJE162CLg+spQDmN1ENmkMBQYrZ2Bde72mL8Ey7SmGIA/KwFrXS8UPA3V7FSgfHHGNWQ/EHRI0 BOi5e Aw6Iner7VzQgfpDgM3KpzrqPpSPQvmWJBemwEXIgct7D2Z2snpQ67xJvJkzozB0gE2Q4N1hc3X2E8Irj Ko+i 70TTEa/cwZgPTDXnJt2bIap4RbWY+Cliuxs5s0VYQRxqtRbot8qQ2lWVjc5UyHIBFqC+HLajP3xgNtBd QdeLa opKMamV4UDo3SeEGIJ4c7EWXqvDkYhxVheE0oiSagp2z2Bda3hx8EBtgABwa2BNsntb8I5AhKbmTIQM5 IhjTS 5XMFzGQEqnL589r11UXXig6s8CkPqevkoGL0qTiSEMSWWdEMablFdhtbmk2XFWV4DCp1L2aCAsRFfsOM oh+fY Z3pfL5pi0+OG0eQudyIXP4rtQBNu/UGhMgJiOnzlMpAzR0yfC3TsokzpZFRpoikW33zsuauV7W8RAMSr M9oLZ oKrtDazSVbe+CvYrnvIQv2fmXq1gsZiFizMsxVmliXv6RvzkH+jnoSeNwXIFvqJhx7jEzwoQJBqEYiNL 9qEaQ H6M1gJEDTRft8NavhIgcHGytAJtJ5HL3pbxMMBYOFcO4jFDLpHZeVOg7V1bnBVLu0zfRlMzAy1NEPjQF UQc7m 0FORhJ7ybIJTAIwdvjGBpTZPQVcDhFHldOIQthW6xMsR8e6qmIYKNvFUwuDxvY/QWASXUVXkvTXYzD8m TKi9n Sj6Hx3XRTvYRytFHZougPPX7sxREkWJETFCovNNBVRh0zwDgYDosyTaVQIeaNtlUYKEb8bmTVkiFrOsn a4GE4 nngaJQTZ7PtF+O/Ts1ObZlYO1amRtK/0NkJo6byR/xrU/bSjlcVb6MqmH+x6An6I8s7C+JuZG8RpaecF Nrt8m 9rl+A/wa+AZcAryIre8QaZ44nvTD2NtQU6FqjR/jWiY6hOhh1CM2t7ot9yYaihxD5EIxf6hufllH70Gk cf0Z1 P3Y1u/6EfQPoZ+Iuwd2ndeHJ2W03Ful+oFto+sQ+x3Ef63LxkJziXO0yXB9HMb+5AWAy1tL1bTg3RSoE eJ6AB gFDqD+fuA+XNuPa/zCLaCcBiUG72x8dc17RTZ9ziZp3h8Zglobvc2Wv0OvMImMyxM4E5oPYmwxNF3l+B b6fBN 8i+AN068GC1H/A/c53Usd25kKliM0rsd347SbEM4KnePoWs0Ute+PwMwQUy1ogPnysegbuZ0qbq35aqp O1+Xa 5z5u7bwLQkPDbvN73q23q6t2Fl111878221Y9sQqYBd2bz9Ev7+z/dLzyyVMoMp6Sq/Sfb5cmkLi3e5M s9n7o NFC4wg36HIPh0gGlXm2cGpdUaj+G9z7RSBvNLmdmUmAqZ3GWsQwC23OO7us6EFrmmNPhL4Mk8Gw1HmBH 0LUPD q7zD7vK3am8IaBsavgS/SLhlx1XItMmcx482KCvhgJ7x91S860MC7v/67jk1mLDr+xim08yIwn31b1Lc 5zq87 2nrPnbO/tjdNa1Cq/fhhA125V5v8rGvlx95DQ35lJ5z6VqBUWQv/VsnSe8JJQ4cO1Eu6yUxPpZwpbLYS PUaZo 1EpQQPXcKkNEa1oZ9jGhdP8uiSCRl9SEYeuRk8LvMSoicXx7hVPHMoGzfwgMKM2XibYEVq1CkKf4Vhff 6b9Mf zddl+XBKx4cK8x6GSTY27HpY9fyvOfjTVj77yg+L0lnauX5ivKxPV6MUs05PzhG0NHGPiKuIR0DuqARj 6te+3 3K/xefjaT8Idc8hty1pgSBe55d2+ylu/xY21KxkqJr0iSj7lo7D9+m1u2XS7+W/opQt4PWf3UCg4kbxL XJWbJ bq98Ucjf4htqybkhsiObPyI+Y9vKhOSmlrg8WV2yiidyyNaePh0DM1rgv/Vq7RikZQoNISCd1ONs1AoO rUcM+ tvF7usYO7+zHxY1ugx9P6fBlZshf5JgMlZ6y5ZzBr2Kacea4KyCfI/MDay4o3cr8l35dU3hmcXI1ln8d 68IRN /+O3gx7yLwyYre+hCMos/euPuH8B14DF4R2ZlefbjSzgc3+3V/0Xz2A//yX+G48nnS4w3tO5cMfZ8QmN AJcAu qCabSwfHdYi7JmcTFpW8TYABOsJBs7uB9iXEc4j7BE5X6ViCzJ39JE6YmqCFbXT2NYnFHnGE+wHjgPWA d0Aec X1xBgC9yKWbZlDAMoFJxMYtBxZFv5Xl4DZ2NYKOOxvHFHT3XTXHLekOawJunTSWSvTH8LASzNjdWKWUo BBcB8 aFvDD9EMy6ZQWJ0PRnhWRwOkZGofEbuO2QTKzDvpCfxXEvY6CP6NE/KAqYACuIBcIAeYAmQDWUAmkAGk A2mAE 1yNTgYdzTGXhARcHdCJQrIWhCWLbBKIGQQyD3O2A/bSQjbFEkI7FZETf0OK0VIu36YNaJ+AD4C/Au8D/ wW8B/ wF+DPwJ+H28A7jDlCU+CPwB+Zk7TuVN5TpaEsQ3oY/AX4N/Fe2QxmZ/CD9QLiTIEL2MiwB/AN8CkVz2U Xgp8B UpHeUS5RVzTbX86RbmAyVToN/Db7MZF89XQzBQIY+QLiUbgMfFu8KUbBEBu9E1expUy3JAnMaYHdFG6F 9wH3A obFfDWJzMcGN6lU1W74W3nS7YS0FenYtWhkK6L4oLkfCgCd3CjDZ1TroDdPj4TrM48HuAErFYnMlOf4P vgJ8G gyEcXs7QpPB8FipL3FmfpzBk5GBRH2GnfL7U82SohXqMd10FkZsi+L8U5x/wlAVjq1krv/F+ac4/xTnn +L8U5 x/ndVBif8qml/F+ac4/xTnn+B51bWCBOHFFyhaABOUlEnOXJTGKoGMiJIEWFOSLjnpAKNOtUmBQWIVAf ZQxAC YOFRFBccvEXUOsEoBKESKTlUPgZSUVSGGHsucDKEZoQtISVVBSlNJyLQZ217e/lxWL0DVoca6BMdt3zi TnH2K k21i7htTPpEEegu3/+o4/B/+WvuvHsB/+IuEwzGJGXtlnMf+6R/xXAPhxDfTM88VEt5iZRIX7oXstcBb eZS8S iwGz2GiWPkW95b6wZ0wOZrw/Zb6M42xg+p1hTS4yKhRYdCoC21hS9x2AIwLsIb6XhEMcBCBB2Rta+eUu ndOXj piGaigHJUp1vsxxYO2w7Ptna5EQqcwdZcO1skPEjd0+WPboaA7tOyjTQ+eYCmIp0i6oSdlZl7Hh/3rO+ Jfrgm UktKZAoQ2kzYezVati7XFP6mFtXidF5RLWPwf3QR5LZSVRoPhA/ScDFoO2ak+L/cnCPtL4vdcVq2vGNs u4uUt yJ4lSUkxYdLGM3dv9sLvo7tPMzlK1V5p/MTSlePqs+Dp1Hcm6+fTQ54ig70BgubbW2SiWZ4zR39PemT+ in3xN fC3R8uk8/M8hxaZwonv0KfGJTRvC+zqw+QwuY/iCt4e71PyzcCgydADE61gs1YzmNbN0HFTFSb/bR731 g7Mnc 3ts+pMt6B+Q9kWWrtzHiuZ4BRNMkuAcZt/yWOBGZ3OQ7nOcV9U0i5PD+uVT6qV/vh6jGe+hqfBkJi0Bm 0V8g2 cwG/bj3iJrQ0TW0Ci83H9T171lBJOo04kQjqrUf2kAoHzwG17MkSkgyF3xU1dP84LHgEAcid3p8/cXnI viZJ9 PD5F3i3pePkv+k+4poe6vIe3jQoxOsKymUr95QLdEWDnvwuyyhxU86fwa2uUjtPm8PhRMEvDKgubCLD3 IfkR+ IL0wlpPtTu181ThSK8oAK+Gj4Ng3V/I7/F5gjyv/q8RQFL5+v8g/Gz0bv2l+1hZy8Tz+phhMLkNaWP5t ewDbQ LlmA4MWR/CKu0nV+Eb+8BES+liMc6yIBcZA/a+7srd7WfH9Z3fihZ5qms1c2Zjoy9mMM23PG42vyXXcm 9MGBf HEcc/BtOv/ucw1//laJs7yMK+838Ptg//h0T2bPOO4FqONKtkAwEHB8X7d1uX3sBC8Qi/j/T3/nXIeD2 OfwUy Y9LMDivk/B/ANXHEEUccccQRRxxxxBFHHHHEEUccccQRRxxxxBFHHHHEEUccccQRRxxxxBFHHHHEEUcc ccQRR xxxxBFHHHHEEUccccQRRxxxxBFHHHHEEUccccQRRxxxxBFHHHHEEUccccQRRxxxxBFHHHHEEUccccQRx /9R6A k5Gda+mT3jUxMy61pjwCDQ606jpnFyPsSyIU3soKfj46ejAm76LeLXZf1UaCjrAAyPcyJ4TylZkXim/A NzDVd rFZ1daHw+orEJOz0rGdH7uXuGVbp+LHl+8RNm7tyux21b/5Aeygmyi9163I9Vp5P5eRh2J3O7gLr/IDh Xa7g6 qHVUs/1arTS0D7I0NkfcIrJzvDcdy4j7p4AKsYzS8PYADnARfIwgKEuONse7bRb3pBWBk+qPF5dWbTlP z0vU8 ZnVeuzNkBWIkbTqTSmoHVJWAOtMI5dvR75VGAcot5xM6cllDqMrPJbQcNjgyTqt4abAua2nEWfgYKl7g pOxaN 9EgRJTyzpZtD0vO1mXxtwQwTFhuXDNV8wiC/zwz/rEvy/VBf9+gzwk9Rumbrbgqt4lllXrudwQBFPo1B ZVSSl 6zYXI5tiuVOIn9gRiw57j9HuBgCauQkNhD79jU/7Yh7od+kVGEkxBNxk5I8a3ant2N+94VX9HWJHuP4s 3WyAs UpghPFlMTbezTxv/gVRUIxZhbn2DLBxkwHnE5d3DDezSgNk2k11b4ivJkcfb2sn/SPECIAL POPULATION PARAPROFESSIONAL+5fG2+Nd+anNOe 7NV7S WF9lrC4+GFcGN8B1YgTRHpo+4Imx9pMt9g1C/0/Jrcp6N7ueBHYsb0FctVMBvC1NP1VBBnUpTpctCy+Y oXaqd mIjL0vKQXmENnGTj1Oc45aZvRM+3TQl0gFku0goJvgm34c+ZHriunTM00vhDmKaiiRqLZxnpDS4OOd1x ITdVq gZWOnDOk8me8Mg7/HGpZHEVwxhzsWFQv8jMGSqzol9FI5aul1nnz1s0u7wnaWhwbcyIr1tH+SyjbO7++ zcn5r y1PhgcFDyg6XxeXUVjfR+6XznjhoWJzmMUyS4C4vaZSrtmUSxp5uJanCQSxA1go/GB0XGN+Pa+kz2qeN 0hJP0 uCtbo8NuSS4FhD56fSkRkP9m7J9/Wo3tOpi6bxzooQ0qAv4bw3MRvPbOclwwy30c22Bz9p6TV85WCGdd W58J+ nj5VXFLnchJLxwyfL2eOSq4gODigB9fDthqSKOhrbQnxyMspEPzFy71AiMKV1cwOR8N3Z46vZJDJRR3d Zr4G0 x4EVwR5nMt98/U54POUfH1aRGsDrYIS8Vi6TQXO9gOev4HH8x48f7r+EG9BdcAN1OYK+aqJwSXSMnkuC cmp4Z O/eLKky6MxxaUn1uy3FR5nyEFnvCM7l4NQYl6+XinPzhAWBKaynSFAqDwkRGGX1IkH3YzQnnCYpHzfvR O8mta jeXJhXqMvNWZnoNnXyZ0+djOi+fh3pwmccdLDlyUv2MZVJmBsnYJa6uZYvIP2tnougqO7e5BFJCoo2ck GDCG7 fjXfpFbQ3TKU1+82ZqNpPCn3ELSagIIb6dX6mFk22fI3nFI+RUls/FcAtMI8knKmOwYXrZcxRplIJegT 72hQ1 dAa8ZH5z82pnqXkemddzoilLrjDSP6jt9mdt9fHpudcrE3STwNih9X04np3qXH0ebu6elfadvykOnSJd xQRYt DhgKGqhYZUvwfDlQpiaRS3tLsgXzH6Jg9EssLTsSlTgI658eQstiyYtF60l9rqpBN8MByG8x8nWSutLB fWC8W EQgi8pB0mdsqzgtykW7zG7BSJzVCa3CGYEhTH9j5FhE2es0fmDWt4qthyrBZmRYJWSDpFx8Iw7ynt0vy mXxhO n9QqvSF+URx2Qz//5MNYZsRoMAXH5fK0TXJ838DUaAJBF1UmqahCnlBgxSuUIrxpBSaCKPHvvL5o3Amz bLilH 5C11mRYyYKaWFXYepY2I4peIaltdJPhyQoorCuVofOBYj/8AD2Oe0Nw0NZPXCQllMr5aS9giQ3yI7UI9 Pl/N2 6fKzjlibdaSs+lg1e/V9BRPwSUBpY08dafLVtxe7bY1P6075/vlJ17euBWLSYg8T/8NT4rbrSyYXQZ+B HTZLc 25Anl38htNmxNhjdWZ1w04ujKKw9N19o6TDze95SuD4/kAsW0jaNHFaPR2e7mbAtJikdIilqgjkqomyS 7KzXI jEl0fvVLnwsACVOcQl3ya4uW/Z5jrmbbSaHeLtJcDl0bfkNTJn8qU6Y3ub73kIs3piDl4Kk/Wn5jae5c 01TUP Se3zBhO8IaztXKlewqlPtxzDoMdo8WvuAed+tYc7wGGVTCpcJi/RT/YVkBs79/QiZ4fQbQJ+tVGNQpRq TKlWv pmF5ujGc/jZX1PMju5UyJKj1E2O0B/2bor8xZR3Zp0Sx1du7L5U9MyGZy7/Q1iv3z1X4fYz9zDDXOV5T SJ8/f vYnPN+EaCK3O5TicsdItdjIJsxFN+Q/9W2Bv0b7kGf+4IdosC1woToD26XDWtzGu0H/wuM9QXn2tb1+0 JSc7c FmZtjTtMhVbWPiJF5ZWVb+q1ogkpcIIl+y3BOCOYug8dN96tTk64Dx6kWzSTtXIKCdrgAqfipqZOadLq yc+G1 kAt328wA4o9L5v56IhgBc/OQNHasXdV/MzkEXfHwDzoGbVJC3+JoOUOZIOBnYzU6hoiyO3I+UlKklLFi WMDeW rTGThq4ZuUw969765hqpApnpzd/zwCIbnNkuTyOfH7mGoHdEMQhGSLF+5NjeH95rdgNtAfqo2edg824f O1KwP HBt3HbFrJtLgHoaEN5SlCOjjzFIX/IYlL/j7rKG5ZZ+hMXs0BlsLK8pKinHycM6UjMqRkHMw4XyWGz9X eHt4B S+MLl627o65+NcPyINgfh2IaWlflazbCsFmUBPAWhAXwP9ytSNW2Mq+qVKbx2KGbkBIhPafZMH5edZVA N3hBY ivcMK9kA/bV8v5hgmk008b9ZeGkoq8DInGgC8y2wAnQwsU4rP8KHNcwX3nvGQKt1pFows/ijyhZ1HgPl 557Gn 7/SxPvUY8TzRUMV27268xE5D10R23OOvye1lrQxrj4Dbh99p50n8MnebAnCU1x1YPDjMzk6PsKvy7Ihq BqXJ3 hNlN1zRu+Z394U0ygOaCV1q0hgyWZxURqNwAvMghFlZIwti2aThwC7AM5cW+MaQnz/x+ELIkJGC+0qnu QKx1m O71hDvW62PZm56GKP6mNkMn2AyR2CN6tS6G8hAx+Q39C/PXzLNihiclJKeqE+aBONZRrnrr0BTgGQC+e gPLFz a8UB8XjSBptoOlpYoZULnV0JuDVQ4zumcrSA8TuUzT9rzZvLEy83smZulkpA8IVEVK3kvOhikzcQ6l0z T3Zb2 tIWNNpH6qKfrqj+nbdYxcd1SACtm6XMgw2wMEm3gbU/JN4EbQi8dt6pGlHf1Z02dtUgmOfBn5T9Y4xDt Oynsy w/mz1dhNv0iYhRb4NYyQE6jRUdLkPeft38koppNrTFEPrJdrH9AMBRL1Fx910Af36reR8FAoDNMQHQch gK7xU tlFuHF06Y2tZ5H74uovp+JezCsmyNwy5qrOfbRuI7Tq7jMSRpazXzMYymVLHGe438MuuzL5fUR8dxNhn rZQtV coZt4SSFonN2mwpyiU5Fa5LdgzhK8hqDFv3xalRV8jZgEnD8ADolv/GsHe+6bvvMZp7jcx/jaqeaRLOo SJrLv XQJYao6RXrfwqFRY4NBsBzEwk/vWOTVj3qC0aSKOhtTKUdKO1yyvac4wySFSCfFX9TbBO7gzoF0+NcWY VrK0d J4bZm8yDLxWkuaT4kd8pvicnwCo1KYVywj8agQoHwv0Qjyb43+rnbbGe+AcT11O4gLz5WpIBOyX3qslv pqi2b KiVv9edrTUyQj8Uyu2LChxn22bCr76COkVWlwB8hYsFV/dAezhmGux2+WXI/16SaJvKo8bnXdQePbl2W HPXD4 az5utMP4wltyqoBK7AWqOpr6B5uFKqOvsgo09q+yf6c3Z5F8X46uwkXKNOOz9snuY2roqwPLT6Pv7UtB /kjPh aZGlcggP528a4QSLNANNgr8WbJ4kPgt35DBx6DOvORSTYeQkxqVMWwtsrgkNVM7lwq9biiOqS73y3Ji0 UMstM 3GqOxecFleTU3feB5IyKPtLp3rTbozE9AkTDnccazNuzzYkRVsaZ1d2armMv1gslm2vRd7EVQ/Z9yaxL vuDSc q3nPL5mdWxkNYvLbPUAwHNv502Rux6jdCqUstaj+8Kg+fdnb34/YgAPM6I4QdsKwjQt4HowdsnyYWPtj 37Q+D o1M8AZjySjqpwH/Obse08Uxm8Gn/ilOL03O/vLZgZ6BojpcaLGtRzziY4WhDM9Zq0d1l4QvuZBYO2Drd gl0Ve ldenyMMhinPh9QBTEvI695Km13n0XgbnT5oKFRfwaOkw/3Dh2heE3hsdeSD5vSDbU6L0JqVsOApI2eEf 52XR3 296+IAy7btJ/KPQDE9q+r74nZpWTlt7meQjF2Xbn5yiPx7KhIO6bQpJCcvKHBfMib5yxqlV6qt1t8Mz+ c60lq 8sUnK97dAQ52xO63saidHnEBNxbYc7P8tPoCnZ6cCMFhF7zvREE6lop2CroC20Noi32ZkzPBXktr0ekM 9tSY+ GnHhoywaSVGDrsN0b4o5PjlE7rCunJceuHHusDz2jVRn7B8fhA6qj4vYD826BD4NPs7lHs/3qS5qkL4n thm83 /9rQzXVXN02d6IpGi/eXPsWkNdTMYcXXHX77klEm5Tl4ITxRgi3dULhkKem9In7n4ALAYoTwMljhs8rN XIPm2 VphkndDLa11D64vU6xLYit2axxUutTDkN3946sXGQK2ry1FNzKRB72exqErTzPlIPfOleCIV3f51s4BL yFNrA oqW9aYh8pa3bbDwdpldgdv/LawUOGOmtp15yQI4qcaE8rMIpm9Ui4ybPLs9bHMHlMdBCecM4UeqYoNtQ K7qWP ksdm46hHGrDK715xNjVA/B469rlowizMNq3HuJ1lr32IfTl/WdNvMY/aMOfNy8I9xD9paSrCNG5+wSDF H/UnE P5nIqC0AG/QBNE9NUad5D4D4VnPxTA0g5GUDZP8DQgZa1wM5zdolhxyZGg9gb6Sblo2h47sMvMLdH3oL 22W68 in4DQ268DpcazRVc4Rl5oumuypw4VfWPfwJW4FpLLnclRhA/rTwQIRluDY0jIulBqBeUesRHT4o89TRz QronY MWn6x60vpq+a91MB2uVB45Vh3xiBSax/3t7Ql8TpXVt2Y2157MINxlOyw9EFMt6Wj8OSG1fR4BB8Zyp8 aVv/Z GXid9DD0SvDHS37sdW2BVyklS98kf/FQsAo8ij2ISU9p19G5th/0ZzdQYHzg/aQznZ9OAhJUqcwymCRo MK87s N+9J3BvQlr7Wenz8yabh4UYR6gX/5CH+btM+LFzYE1FNtSHDavkoIbQEn7iW0BSUo4KUcXEdYnBQxZJl 2JFek XDzw7ZJF4zjGoLs1wiblJpyG3WKrbaK675sPk+H7RYik8yAPoaZOBWAAU78GmO9uSDXQtfUOj3RheCnv 7S0VK SsjavO2LGvqoTlrUtfo97+ylAEe82BD19EL3s8uSUJW1FTlhfN9ni57W7ntSB+LtmsPdeZkajXmpJsJ0 o1L6d A6QeL2IgSpNt3xd2mZnIs1zs7Z+43JGit+Grz+jPIFrG0+gS0Riw0+pL1+lObv8ol7IyltRa5eLl7p7z Z88l7 4cXrx/1UA4pN3A4viv5jNkDEFyfAIZxval75TcW+S4SwLOmw6rbxr3MJ6wNaynlBSyLwTssxU6OkxSrD Hj61T Zqk9IEhLtL6gUoTsL3icXGwejUOijt4erOrlPZ8TmvvMYBd+sHrpeF7CsNSMMM3orcu4klSPPYfpCl5V aq2kh d345ZlGfNY5FwPMAQ4TesFR9GExa5iOIQ0i6ofBnMPfxcEODjlyreNfIAXy/DQZLlp3i6geoLKvmLLR+ r1qk4 r5zL2wp83Js7qrkulm/sIpWIEyFfug4MdppzfE0pg1o3UZsDcFKXRhm+rWvhZaOFnoYWfhdbFtBF+Fto Jeffry/8 UCYll0EMw5DDZfyl/Pz16NBXihAZ6erylT+/OlNl7dXPmWDR5WmFdKyOdXLFV71dbbkhVGForX87yDfG DZBSX PuiRgvA8f76fpSA14J93Co25BsSTbpK4jMmoAjnqi45d2NyhLhkw8Dm3QqxXzN3XRrU+A7PILt0GRUkG G22oq +8hzI+6xpnMtILqRjtRrO970BQLOrfpV1Z32G4lkgOpupfSQJrth0slrsJ3/VxLH0McyR0raP6kg2fGF nKG3C E9ik8EujLEkqADAfv2WxG04x2f8/61ne6SbBmEvMi1S4ZTZ/X74zAY2lQmTQs/Pu6Cvnd/n7ewk/6cU/ m5R7+ surcge1BLc/rvwdPTUHpUiwZKS8pMFK4DMAPP/zrCmaaWr4QAfO0XM/pd9bLEm0/Khcb7jCEx0+nEjbL 8Z7cS ljCh7mF2hLPplf9qwTna26I/PDuQjjNn9ltR2dvvXJ/bwxIE3eIleRkMGkKGSwrdyxuJcZR8k4NtATJr h/XxX rN6yKaquljsn5dR/vsac07tscBa9DbpOwWawxV2GC+LhQAjmvNsZ6J19DyJhLlEnil3AiZfootADAo42 WNfL6 6rZGjq2pxjkJ370e8ZmCquPs0HB4GMx5NrMxF/hxS6+Vd+vmaRvieEKMcQE0/s1etPpn9DtZV0O1UvC8 iEsid UPJd4FsP4ty+5MvrFQhW0FolC/CRE3AUpeTGuWcJwOWblTXjjlNkT9MlGhVajT33g7f8INvDnzbaSaJp /dzCV p3YJQXbkocb9tPY2cwY+D7AkRhbTv+Pgk2CnfdeiShDREbrrakqp8x2WwQkzJgvAq6rM16swBh6E6vM6 NHdGI dX139ycY4z33EUl9rOxlZwlU+tbR2XEf+h2v6ox16KH6hai2Er7HeHNtg8cU9MYq77UcMoqR71ctW3a5 qTF+Y +CMEuFgLQ6mZahJqfttM0rvkrSq7XseKzaC537D7gXXjdEh1YFbbvNWiK1gnegrVXbftYJw1q0ag04U/ 9G+Az FKPbwMch1/nU+WwUw4etO/pYTe/4HEo+GKjTK7XL+iDvorXgSJM2KJq/m7yyNCfzT/hVJo2Zh/PZZnWm Af5cC /AzzIjGqcg9wY34I1UuAnhddAE809HY/5pzL71EIeWwacKA4ZYqteF6Nt6PTJz0fQpRX/IAx0pMq4lhW i8Jjc fpUk6HBdvI2c2zttIj+IssJmXBP0PDHLlta/b4NdoZEj/DAtKPXhvtmpXcSy82J5CZVUNdqQE5cSQSIM G2j0e xgOpnlkHZeHbiV+tm78338kApSaWImdw3t/gL9nMk8mWDKZOAPTKgkDdcf47SrdmuOE6vZu5abQOHgTl m2jzv gTyoFW74Q5QsAtbV0fcYgkOGhNshJ17j7DYyQNklu/l56Ga2bsrFcQrgzoZX9M3KpxlunxgwJzrGuv87 5IRjM cPy8pDG+FD8pvr3pM98UI6kUJ77EKPkxiQt3NIA+8blvvO8cmM9UFLEsM/PU+8EE7uRfL+NZ/8LazHuI R+fO/ YhNX73OvyK6JGqgjD+1tgMNcBzkzDfm+jIm7f23X4Qk5foevVDo8uo2uAE0/Mv5DHFTA+7Lj43Egjvek nfn9o 7yHOkwCnzluOa+MYzcWomnkRyDUuIzFVZTirL/kwfIfRp0EJyw53tM1do9v08RF65BUC7pltshWKkCAh 64mF+ NaCvO9QrriMs+bPduI7Gd8oQChjh4+oRW7dsike/Q0aQKr6Ztc0jWUGCBKQZ/5N1nZVE+WjRHfPsiHxC PBaRv 1rWOM5jBdeC4t1IQLTF6/JzfYw9S6C+NNQsHtohOI8JutwerCBJNJfJ0vqC/9p4qICIL+OzD/NdOsCti 1P08e 8B/+gOkM+7MwTYs1wGmdFQ90qYexglPkbrqpfpcddWfbDer7wAgCaPhuiiwBgDg3KYaFolsnuikz8hJB iv5TG hfxq0vPkd7E8YhjsxKpCH56YV1rp7y5Gojak8YfZ3oO0drNL6WuXWMyvkjAkxV5wWb+xS2hYIfHNZ5qk 4DCeP rmNaKF9eLpU42Q7Te2tKfgM0k1qH2n/Rsbp9KJuZhvLvKdMUsPPTaVfJi7qhO7cIuo25/dN6gdR4SVnV 9bgu5 fPVY1XiYWgABkOr/imtHxRqjLqVrLcUeSq4Mon5oBw9bwTmisOb+8twtZM/RNlUd5tHwRX1q158GLjaQ y9NzE qs1FI+G+PQ2jNf2ZYn5bhv9fseBTm9nPZUvcoAp9+0EvOrUT+Xcs+38pGRtbH32PzNeq0hSsxost/j1L uu5ju lcyvj6QJoAQ5s9Ep4ukXX4Vri6SlsToS/wnukJ5J0TudTGuSstCzgecP/4xzz9XmlFxsqllU6p3uxD8j /rG+h T27tu2y8QU8/ET+FHAR0sCVA9j8yuHoyEnD45W2tOM/6MlMau3IczHMkRklrMGAivkRtYjZzXiGH1a6r f2iTv 0tT4lZhPRYsRlsW/VTmS4j3CvJu0+HcNTsBqcp4J45JK9mKqDrZLJ+nxzCxtujmzJzFK57Gu5+ge7D7A tQuH+ snOMpUt8KjQo84jyTVhVIKOcqLfsC9ATCudzKg1zKbIrJHXKr0CIs6N4e6x87eubQ42EVCSQU+v9Lc2K k0Bbr 9A2H/GqJs8ms+/g3+nh5/jeSJmSzLD2xvTjuo8zR97KlgzuAuRKrAXcakVXJk/XhRl73KzFzLVPyITDy ac1f5 O6TNz5X6hXx0xEjeWoXxT9+/9uu6BSzgTZSUs+fZ7RDuEVskVvpm9x8T/OHSpuHuIl+4GDdXloUGByOT TPUPY uzGdN0edZbGWm0Ln08/XZpscF7X+ySl9UNY6V/F2uLAZHGjNOXdOJ8/hl830JnrRTdoZWxMFA6+X2Q45 A8rIT 0xZJedUn1hQxOu83ZuuknLqPkT/uFgJDAEkwPD/x6NFgb3EV7wuSyIOhIHlIwyVRqy6Qy0DATINVlNJK ECA0q SPFAAgt7e7DTtxZtjWOststVDHj8fRSSEEYJvbt6kOTz5zqKaUqlj2lLNI/XAUNI31LJoVuFmY48/r1+ B43Ab BIvPhoDdAlQSGJXFs8bGvMyTz1/kblh2s48OmyW8bxO+SBAeYAcZ3w4jE/vlOpTC/YFJvHRDN7Q+ob6t Zd2R3 eYUYXhkCrdj7qO7XKf4jMfs0mKuNBE4x81sXqMAYgDfR8Kz1QEK19Dctm6rV14Q+GoEgvI6HBvBpXAnU MDVbj Feo38ucS/HO1gMRF8JOc7vtMjxbTniSZyCWhgFte/yZrxLm2Q3uSCmiJ5kX0M9yOiAO9v1Qv83SLCxyS sGBrq WzghPE2IeYMOyNKOWabpDhC3LshQagVxu48HF6Gwg4H90lwhM7nIO2wIwvdAF0aGqgWVAwL2oikCUU3W BX89k 7/tRm9UNtB2bhmNX0ofPayYXb02UhlxvG2rkkyIiTutKBJlHLoP3oo+bHKRfPupJpPT3CgJ1k9lbtzjV 2eALY 6yDA+KPAl9VlxyC/HJnsrORILn6JGDw7HEqUmihdzFpbDhzAqnv7x1MskDar/vIrHgJ5tGhojz0aPZ2+ fxBzI l2Ouk4lQkF5S94GaLUJyfZGxupW1xgW6xIY4boKo1crHtwp4KsNEF9rAHMZ6KBv7F+hq+pbgolWY5RlZ tgTvH veX054lijVTtPHhhn6D909I0rUxfA3HrV+AHKPFWznRSrpxPdwY69DD7PmAsIj+GFJAkUhyJMv2RTySk Sdbux 8oxMkOL2aih1vqYSZxeqnB1iUuAILaCFfUq67XFYf5uRaE7fARlqWKgPd9sAipoNTpnPwCQ+FiwHhwIi tp1xq FMR55cj2Zda3wRP2RsC/yflUHcgKUVQomg0fG6KWNV+qxW96TT5nTz8XTD/S4ObwBEhv/n0BQ1gurt8O wYj7M qVvKgRp8OQWygixE+WlYo6x12pW7boRWx1fNGrETNpBk3AgKMC5NqqtVK5Aqx8H0n96eiDRMbuj+uqxt q6WqW jxiRvzuTpaZQyM7t7Z1LL2kzRihNWk66U12HUQjSNBmfk1Q9cc9/k2OXx79HU4lqscuaRNbAdksMHRaC sU5ag X0srHu+IGLjp7hbqbVurzvogNwrx5kf1mH2y8vjiaCzmHEkt5Ud7wcJz0ATky6ENcIg4KnX19lElqc56 ttaOO ty+AsNrHnte60JIhbo3kp29/YkYk5FwTnLhqIkcjdV2vsDn3O55nUzn00r5Es8x3CCcCjoh25T3lF7dn 1nSVC iclTsxxodluC8Vaqonw8jK5G6niSHIo0meK07Gy0bmiap6JniV3XlCcvQ9bqRiMmQSfNO0i1gt0ueAka Klpr2 oiniqvg4Q1rk30eTIM7U/zigifspnzzBfwAEW5z27drRJ6vC2dECP1sndkKG6hL5f/LeQ1gRw9RHGWDO Fh7b8 f/rttjn+++3/mN9vx3+jFf+IAoh5Xd9Eq7Bzf6Z/q/Wf+OgwlOjv68qPh9BW/81W/Qhsv2wg+G+3Jv92 S3on/ huu+G+44r/h+mn8NQlE/34PMzBzo10zMIS3winTp2BuJCh79juM1LYb9THfLM/2jdIHg6744WNZPvV50 NxZW1 lEQNvn0CBsSO7ptxt1QoFuejddK4x615Eo9w/t/aUfKBoML0y4OU5zTySBEeibdkRYh/n+p6/Ei7ff+x Trq3b Ik6cPaBAEbM6aAgSDlVLT3fFJNAOvxCKPBr0i9MiuefzWFX+H4qUd+FgLRqYOKfVfIR31cfLNCJWURYr SgGn9 U+kFBeAHhEsr5dOWTxuHaxuiJvUQNuZdXL/bg8wp5nXHcMroPJ2CpIkAw1UmtQHChR1855iodCDXgd+/ jBtg1 NPvlRhsNmCv6IIhkgJQv5PZzAWcL4kEIsQ/Ov4tErCp7dZ0aMwxN+uIWT8+ZY+8pRykJLLDFGq6oQ+P7 B5/87 6ddv5h2z7pM8bd1ReUFJ4bQjVUA+yj7wMIu2o4i4cpIi2gIfaPKmVDkwXAuTyKZF6T+OESTIYNwWyiZv OleI2 vp8sCuIcyIPGcXq8CS6RpU4lLzYIReit064gZlIZryKji13FDGejXF/84x0RNg5PCH3xVnsw1BCxCMae SZP6e tnig7KVQykb+xYeE3TLW6PNGlDsfQStXxFSH30Tmp+U5Bf28G9caaIIlB8KDlNs6BJtHg5VeRxWdLzUq KzjLa qJQVECvlp4SqrRoWhBNC1OJDl2m2xqa0OWOrdD3JKSgTOHlMcaTR8rt6vFrGOWFhyoFlQBYq9FwgHLqX vcajz 7Qf6ERRHuW7KdwfhS8YBnDxOsFHR+6PSDQc9kfzPfGSNexm37rh0nvPR/wkoPrD+NThgsAMy6Ei16lW3 NfVo3 BxfeQiQqcMOe26NBLj104f/E+uHbiE903+AbArx6xpq07DJlgB+1B2e0H3hyGHiKUt3po3OWxTEdYZUq y5hPs 6nBBot6FNfOhWcla8IZYd0oSezKaWh5+/Itm1TvRL970apiBUE7VfdYaOS23+dbRyzp6rYHYuP1uFV0f 6uW6d 4W76kscL1sRA72kjRj44CeSAjtbrhg94VFVzBlQdGDBa8FrR+bf8G6L7sE7O/JbJLP72goL9PGR/000Q ovA6/ kqiGsmf67SpoFCiSY8U691d509c+uCcu9IEg24IZ+7st5I11/5apy9ZKt90lNv52iijT4Jh9ovd4lc7+ 11QDL /VUQswqke3GzW/hJXJzPFGzpAwqvfPYoW1lYsmzGsCpjsEdWg5X3fn5fGz+f90N95HjeCrmKNjYcbQ8L k5VPs v/Ip7J8N+37YD8P+Vela/Dva/AtbbaQ15Jw4J2L8Ueu/C/s9j20y7Gquir/502J8D+cWbamo6w5J/DPuX wP7nY f/ucV3D1Q8Z+0/C/suw/pcHOi1jC9Eg0XMSmprEOUsQqX5C+/Irdp37l8W4L5P/Ytj/DOxfD/b0re5y4 B+C/e dh/5ew/wfY/8e1UOUGxqAb+3zcKlbah50p4AoHfy/0c4B7kiI/I+vjWnuynI6s9P+B/d/D/ph4WpirH7 IU+iT Ng/1y2J8/3x3hxzjGxo6OxP+CfbeD/cth/6aDyg4794H+D2D/Z7D/Dux/RK+lWgdNzg0x9Y3F+6tgv+v /AYQz 8zZJZmSkSYG9byDvmO6FLX2av1XaIGvMKeA4GBHak3ThJRu3SFkvGHvbFAUeY9N2mWwtIKJQUr9YHrPt ZG9ia u0RWOtsMDUqFY2ecs6MGPxYW9QqlQ31QFJXQ9wnJMGkJwNgTRMtJlCiJDRcQfM5IWCzLq0UE1Q8nBNiT 1BhZ2 VzCj4+YConsfVmHlyQDf9UWVLsDFQoScnNAlw3Kp1BJU5kjOmnHqppHm7PxDW3fSCtIV3AIYdVS7V2aD UgL01 ldGFkYXRhCj4+QZgnnTOlLG6WZmn0L5ptWUEvVMVgJxXlkQ59Hs+2qvPyzTU2Pff4TCKOrZBuyZaXrlI lU3pO AVW1d2X5SCU/Byn3geTkAbNLOkM1zFqbarxwWCZ2Ytc4fPI8Yx04w3oeotNvg9PpBaC4DMgxZHPaQwEj cmRmL YZ9tsRizI7zcvPsKejOIYX2hhYlJhEwj8FcsGV4aB2vXYijhM2jRkOfUz2dxKF1nCltN96bRbIxs4UbF mNvbS 8wLXQfVW6fZvYteIQbUxYiq9C8W4LzAFPobOKPeWJadDGiVUpvIk0pjMSzcboeCQEToBBqNqYpNOG9EO JvdXQ 0QxYeJumIBE8kVCT9OfUBBhw8J0bhHLOcPHKqEH1yWID4Lq0+Rc5KFH6vz7WgPLLuLNlfpeNyXrjGNz1 KeHJl Qp0WZZKzJo8OXRWbFCDmARKzUOO5OSWuNRGsXDpyJMXzNJI2Gtw0WRBcICMcJB8JPhDnITBvYzD7PYzb MDAwM FDzno4IXXWtPZJoLwF5VLJsZTHlRXBqMXbjFUXnSNO9TrKfMOJyOLWrWN0WFwUnSZCfLSO7YMJvYDQvC DAgbg 2HGTXfYYR1JTDdLNQnGZRhECIyVEjhGJDzJUEkAtx5KFGdZAHlVM6RIxIiRYOoZIG6DjlxSNAuKVGehk 0KMDA vYVR2EIO2EuDwZWXrTEVqBZbeOQKmVTQeQxS2UYRpXEEtFJ2TAdCuWYKyMID6NcYlRVNuYBGnvz0KSQQ wMDE0 Vhb8BTSrRQAgSJRiAChuRJTlQUU6Orw3FQCgHQOyRB6NVoUeEEToHrp2ZoQcANFrWOQccp6PWTBeJAK0 OTkxN KVvRYMqWKCzITiiEDEaFMu8HSkaVSKcPSXxAI8VFlDlYLgqLDQTWde1Xu5GaMhmAOV0Nw6+DQpzdGFyd HhyZW ARDwYfMY6RNEETK2QAHu== EMS DOCUMENTATION Observed: 10/21/2023 9:08 AM Status: F Source: [facility] Please click on link to see report [id number]CZvRquCIQlnR14plENghEKjVFNrVDIxWSIiPFRxBfMpCFE gMiAw MZUsTVYvCUIkUMVxTVOyKjZhCJVwP1Ios8BKb3afSJ1xFVSyRPZ2OCAoTSC2JOIbZU7zZ9EptHYkOYJ5 MCAwI FVaRRNgSPS3EBGbUQUoEMQszTPIq6pkKU0dNJOzIKZ3XQJpFUH1RINxKU2sBYyxQR5gMFK3AX5HTXUka nQgMT LuMPMwKODcOzVie8VoW2AiSTxtO86kx6JQzTNdRRd0X5QHPYMxCaO4PWGiRz5+G6DencT4AY8JOXBuGK I0NyA tMRTkNDSwFRSwLIzoIEJML6FOYqDaWzCcQTG+Nj7Bxw0qF9K4Bx9JRYEnXXH6nV8bJXd7W7B0AEFgUDS zMjEg FCOAJ1pYKdqhU2NkTYIiTrXoYOS+Zr4Mm6PhgAMeRR0LwDT2M0ETWATwgvSjHYHzEYetDQ6JOYdtJ2Bj YnMvU z4+JcQlMJ8gmkxfIFOwr7ZgMrh6H4wlfds2qSIkFDH8FK0+l1AbDBSkAd2HEyDrB2HfMEFfu8YgVcHnM DYzID X9HC59BVB8SHEpUnU2PNAxAcEWDB94OTeeSHZrvhdeFMB2CUDrXjK2MBOuGz15LlqoJCxzACMrlyWPQv owICB sD19OWKMiTvYpRnF9SSLdABy8TMAgKhL3YRVmKjayJeRbSWjaDiZxXXcjBt6pHkE5PBHrSdikCH4aArT 1NSBy ZYzaZiTeXf55JogqEpV9UazpIUBcFhL5ROApXZ6nYwCpurYTIxhgWPM3HBIiOHC7LHKbWy4dJWIuUNPv NjU1I PNhZtORBBIwWsY0KiN4XAScWiX2SRCaAO46EOYeumKYVunyLSB8YEGmESV5SQElIh2dQTNmVXKnLiD1D HJlCm HWIOMwSzN9WryvWPUwVuZ1LVMwVC7vExTrecVDAptpKuucJZXuc7HrMhAdZAdqVv80RvKzNJD7DjYuRO AtOS4 bXkVxauTZWfgeUptyLJJ1GFjjBr85OyMkGZE3Rvc6BXNaHW1zEbXtuaEKJjlxLKLyLGL6TOpiWm92JtU gMTY3 Lrm6KYMxLO9gOeFlqrEPNawaSCWvU18THNYlPgZfInknDaKsTjosRiYmKI1mZdV4XPAvVKhoImW7Gb4f MDUgN aQdUjqdVxAgHcxnANW6VL1vBqT4KZFpXXtkTyQ7NQ22MnEiCqOaCtdiJpPlMjsdOER2NB4qJgZ2UOOuO QpmCj GzNq88HbunFzAiRfrrFkFmXgJ6ABYoAR17GhVrWGdlInQcYRfsTN77YOfvPCQ1Yyf2OYEqHQ47LREfxz UKZgo cSdcjIOK3SEtgXD11DEqpGSR7RwDsYbMtBB90FTPbbrCIMwdgIVGdBAT6SOwxDB60TFcoZOI0IcHgYbZ tMC42 PYTqftZHZjs3ERZsYzS9GKmyGi10MKnfCK34GMMyYMY0MjVvWkDrDJuzOaDcKIizDp26QXiwVKR4Sdz4 MSAtM L07GCGzggLIReaxZWM9JbQjXjZaCMLzVsB3OV80JrbhBPAbVjXYVFx8BaAkENQ8LiAgBzMjIACdUbF9P C05Lj pvSRRiCkKDUQi0CjQqVDE9SdQuQFF1WXA2WT31TWWlINGdMtO1XIEvUlJBFBb4YgSxSFL9HhExSdQaNO AuNjU 7PT24ZaksBMEsShOZQmN8Ani0KwT5McMrIfJzXJWhZbH6UL87ZtbfTQCwDuRIKmQ8Txt5WiK3ZdHxIFY 4IDE2 YH34TYPqTWWrCmP1NSIsHhEJStX8Eef1YpE3PbMjOdYiTZYhPpL4PB58ZmbkRWFrHrDUTDIhTfZiOuR3 OCAxN psxKrSoTY4vYiF4YCLqNSnmOoMyZYtxSa69HQuiIP14NZFzLZN5QpYhQqWeZFnxAxR8Ui1yKONdSdSuZ jU1OC VaXsV9KFJqNCFnHXZ7XEJjFqMNEUk0WmYdDSG1MgNoAHW2DYN4TO19VZRxRBGdTpN0TJHcWkRWSIp4Zs EwNSA 8KuXtHZD1IJFlJoU9WK6xGV88MJwbifGAKomnCQIqNNW9FRcySg02YCitMK61JRYtSMY1TbOfAiFfPHc mCjM0 JL73NyLiRoPqLiS4AOAaDpadKDM0IP9xDzQ2QBCyNOrmFdX9BG54EqOrTqZbEoR7HDFyTeO2KQQsKXDv NDE3I NDoVnFKGXExQxS8DvQ2DYS7VOHfDjdlWD5vKjW4DEKaCCezVpBfBWQ4Dd44SKTwSVYtWqQ7XtPpKN55Z TUgcm BUHtnpFQI5GSuvUEv4CUQfRhV8XN9zGYChJPW1JJYwIjVTLKLfTdKmCnL7XZejREg8JGLzFjJ1VD3fLQ QuMDI 2CREnRxWBIR31ICjjBRXfsgeyFZ80JYOuHrD1KvCsZTNoLY79EmSmFEPgOuJ0QJLlJXgqUmUjFCRfgqh xMC42 JXJcZxo2HaH7DOIzZY28WhMcJURrPzU6OQIzOeEKIIZwRFuvUcK1DZZeNl1lRDUpQFVqCwX3NFRpHxYO MTAgN PA0YcA2UdK5HYEgKplbEF0hVsQ7TDJmBSijAjZlJOK7Rr1vTVQxWpJ3ZFDgWopsLfD2UJAhIoSQRVKmK jYyNy Z4QYKvDMPtGL57GGTxCIY5NqPyLBFrVAvcDqCsSBZ5XZSgE73HVKZmEuM8UTQ4Ds19HCImEqXzYfe9Ov AtMTA fVGg2INGpEfGRRHKqw7FlBvVdBkK5BCE1BQCzYoG2BGN7UK03OZOkGTRcEyW8CSDdKgXJPM91HFjqPZS jbgoy ZpUaQrDrCHA6Xf80ERVmOvGeGtw1BnHvSTSqNTj7SCTfUfKDQZEgk8WyWkQ8CK44TOOdPFwuZcL1BLZc NTAuO Xe1LA8yMfO1WNSzKQahYsHyPUC6Lv58DoYpZASaVnH3OtEgGV83NTQuyySNEwxlWST8NPJwGWQsIKSdT y4yOD MgIPUgAvJ0AEXhTqGQSZCsPVTzHltnCGXxPsU0OPDmOeuuWIRsMOZcHaWHDWWgZfBrRhC5ONDxKYWkLT AuNjU 9ML92JY70CbRajvWQOslgYoltNBFck8UlZnOmHqV0RIP4VFTcECd4AJTwFN52PfFwSFCaDzV3XNIzFHv mCjAg AMWpvnxzZD76BOGhNXUnPlU2YgZ3ZCHsRImlWH2dIqD6NAVnKKgtJfJ0We4uSsYhHDZzUcA8TRC6EQ1p NDIgL ZLsJjK2ARLpXoNIVxIzCmA4XSO5SDQiURJaXAL4KK0eFQMlHECdFeE8OAGfGeAVHzZaHsP2GLD6BZPiR zggMC 03WKWeAWZ7SdI1BpByWJqwXfUpZE09SsWoACYjDvS3SRIvZjE1JC30AV78HUNhqfXSYdrfYpmnKFGmx3 NuCjM 3Bd76QjC6JOJuUpA8EXK2Hp84DtKcUJSjVuO7VYSmQFcyGmPcGZAkfrpxCFRlLpMpSORpHce0AQPkZBk uOTMx UV7zYqG2DNQuKGmfYoNhJFX3QN8pZpgfCZViPkI6AtSnGP72DYTfidKKCwfvCGI0VCvzQWwtRLIpBb4y ODIgL UEcZeE6NVAcHsBKEEKwAQb0JlS3EXBzMcS2IPCjKfTiNBQjUTXrOzTYFPWqTcSoUhE8JZDrKnX9VTVoN jU1IC 02Uv58RPYawmWGRnwwIqtuJSEbm2DdTvMkJxG5CXD7OLLiGtIqJUVcRW99ZbNnHJLlSrH7ALWiHZtpZp AgIHN adhxqQK33YWQsZGheTna3ZoB1VIBrPHhzFX5fBeM8QYTuZKdbLqWiKLVlSt78XkBgHUDaScN6IdCaTZ4 2NTUg dnSCEpkqSFUpSvvyOLRsNNDvIq0cXCLpBMReEsG4EGFuEfJDGLEaRVO7EeWcPxLvXhV1UPGmIonaFzP6 IHJlC gFLQOWaNgKmHxI7SZuuXDX7TZQnGfM5BL1bNC4kBGzlrhHJLvogWefaPJTdy4HqPzKeJiT5KKZ9IQXrY DcgNT MaMgu5TdHaPORnOLp6UIBmQzZQPLXlk2KzJnNhNhS9HXI2GAvzXTCgMOCtMI92JnKjQYCxXuM8STPiJs YKMTA iZjtlEeH7BuZ9VEJlWomiLM8zQpQ6YAVoQQijTlBpKSI8Sx7zKTNeYNAfBgI6MwVbDA89GWMjfaATDhe xMCAz FmTeYuDuMXHfBrG3SM05Cf85EJSnkpUEJlp2LDWsSjX0UFD2EI5aKOSrUY10ZIMuQYs7Squ0TqXpOCnu CjAuO MD7SVMfA55WVDVwUuR8BJQ6IN03ELbnGDCfYye1KsJwYTLnLWw3ZOFlYlIUEQWpx6GxWoBiArO8WZPmP TkuOD M0ENJdRF09NwAoSGUpJhZ4XVNqWtIXBIZcOlw2Pic9QJY2QSEdCktyMW4oJoX9DALaBDjxApWgXQDjRh 4wMDM xFMGqCwB6ZtOgIO02VBTxmrASRczjUJEvHbMgEUx7KFCmEdZ2JL42LJ30HcGfUBodKbNbBh22QzufZdm 1Ljk3 SSCdTqZ9TWKtDSIcThDnzwPTJzbaOswsJZPxq1FhQbCwIsU8WVNtKxGnBlHhETYfEY51CtEwZUXhMbL3 NSByZ YbhIgIqHKVqpvooME99TFDoQrZ1HpR1WiO2IZSuZJsdAS6lKpA1VOYuZGjkKxTkWQQ9FTXaE23ZIWViU jQzID DhBs09ZskmKDgwCmA9JcLjCP2fSxAzzzIYVgjtKIKtP94UUCDcEjZtZTVzBu93YPWwPsWvOWYtOZG4Bn g2OCB sOKjhYvOvEEG7RQZrY08JMQNbJdCbLEMuQb10VRYwHpGwMMVwYAT1Fnu8MAUbOFoyVkOpPRXkiaj1Mg0 zNTMg HuO0UvR8TWLmHtGwHOs1ZH5wBz30PWNrikJZPoukXtqvTPQpn9KkFeS2CoB9GzJqYGhsFbT9IIFkXN64 ODkgL ND3WrQ4MXQhAJwaIgFsWEHkfqymSxwlBkXpKUHhJo69GVSqELqgZwe1YB6jCa33SNBvmsYWZtlsVbplZ CAgc2 QfYdD6EJ4eJNFyWcW8GsD3KKCnJo94YGCmZFB3XnD5BEJqIIjtViUaDYOstzqpNFWaVLY2FPRoVg41MG QgNTE aDMR8MC9oQj05MLUspoTAHsqsIkwbUNXqe9OsIhC8Yb71MjDmVfG2MgR3THD7ML4qPFAqIAX1LlR5QRW yZQpm WdXgMKGvbvjfAyhoWZCjKhY5VyU8PKWvMS72ZAQsFJR9PtC4YYZeZMkeVfHnQQF2DJLaB25HXnC2LmW3 IDIxN z52ONPiYqIrOCYtZE5mGk96BLUqunYEYsniERZgL82STlFlMzp4LjIeNXumAxU3JHA2UkP7BRLbQQukG jk0IH QnFfOFOZ66PTbmJRAqfianIcKrYVYmSNRkAe37EYGqDeMmKcb9GJ3aRr59MTWypjYCIwngKUUxJ89JOy k5LjY 5NIOsGa82CSQlWkUtZkwjJF4yLx26ZVQelkVCSuseXqwsUIYxo0LwVcJ7GD61ZGPtTRooCgO0AZMwXvR 4MSAt NMsvVtm2DUHoBhFAKGQjb1PjLkTiHH08BjXbGXgyYlI2CLOcJO82GwOkOYJ6KeP7ENMhWDguBeYeFEO4 ICBzY 15OJvTkXzutKZJdDq94VLJuVAEoCgX3IPJmZTkcCip7KLBeOpFRPPVsq2UaEcJbUa83ZXYiCiK6GkY4L CAyNC 14XJQvIVP4QtB7DCOiQXbpEyFiMIE2DEPqS60DVQNkMbMeSHAqYLhiEaB2GZU1MspqHlLpIWrxRjh5FD JlCmY BOQGkj5RrNcV8TM43VSLfAmC2IzK9IEN8KH98UBKqZDG8MtN6CRFqRDenRoHlWLJ3FMUlD46QALD5UaL wNiAy BWpmGuJ9SVL3EfuyMGIeBFecFmq1OGRoGqSGDMItu8RhTmJ7MP0zWGLlNJxmOzA4IYtmQMl5XA9mKd92 OTQgc cFVQkuyKvsuFCDnk0AoIxE6ND4rXKLpRGolVdD1ZLdtLHj5EV7pZs68DNZwbrHREifrNLFdQ95GOOmeI zUzID R1SX89RfTeCOEoUps3YRXhGH4yUgOqzvOQMpgyAbizLXJjo0NoRzT2NbD8WiGfREidMYTmDJCiRS28YJ kgLTk oBMs2GYVqVyWQJBLbp9HuZiA0GE8yXCLtULo2Qui5DFCtZg71MEZwJBjyIGo1CQEzHmLHKA50CTrhZHX jbgox NmcuFdTgAZH9ST47PpPwIBybXyv3CZ86JsF2KGFkACarZgRcEENvopwsRLBxBHM4OEO4IE50UbYmFCSb MTE1I S02RiL3FMQpJIseLrYrFEB9ZMGkU39ILKd5ZmriCPYfUGokJMOjOFAgAcQkUDJuDQ2hAlXannBNOtxiR CBzY2 6HWnN9QqB9WQM8OJ63YhAzIfZhMASdMC11FhA1FSTjHFnjLeEtILK9NNYyU57IVlY6TyT2XAR6AP50Wf EgMjQ rNCXiKO55IrP3JVXyTIugBbRrTLLxxltcIzItEKWyOXV5AD01HzWvRiShPto5HE51BtW9LQAnXNdcHjN uOTE4 PNReK56WPsBaVwg2PgIrZGvaJFKxBJZ7FwZ2VWUoLN4dKtLdzrEUZynwKQCpR52FTlh0EhN6ZUH4YD92 NjEgM gUtEupiEL55ZwW0YQCgZZklYfRlDBD9TBJzW39BOip2OkG9JCP2EQ08PbFlRmUdVugcBN72ZbT6TLDuW QpmCj SxVTBxlvexCrHdKICfXLk0Jph2XLJzSDMgGPo1XG33DwP7AQJxCQsmAuCkLKI8DOEsN25OOvOmJoftWQ E5OS4 7DhXxMLGcMaZ4VVNxKS7mRbBpmuTEByniNUKrW33REHJxNgCiZYArRGfvZJZbZBK1VnmtHcSuCT4rKyU gcmUK AvkvYdpuLTRyx2UpArSyBf38QLQaKUh8Zso0OWZcVX42ABTlCWlmUIt4QWHzRfDLKOGtf7LlJsX2EB34 MDYgM Sd4Uiu8FNO3RL15INrlSTdkIHm2CVYiLoHFGE36HUlxREIdrvs0AQujRTP9HGU7KI25PcFrRXKsXRX8H C05Lj K2PIZuUKxfEsMiBTFkrgp7ELkmLLA5NZR7BC40FrBjZI93PNfwSTdtATq9FHQpNjFYZM22OAtqXBWdky o0OTg jYRK5JKX7MI55RpYrGA32FAktBQfyTXm7XYZbYaQKHGQiFrIvIJU2FE84AVJwBvEaBLRsZFayTUo9BFD lCmYK HNqjTrDmMRI8DP65ICJuRUItVgScChAzCV9sQhGtgjICCwfwYBZtL51LUEPwHcCmUGSwHm82UwzpCTvd LjE0M uJbDM20MMJhpaJOFhrpPP5qMOTsYsO2UqbqWSWxMcT8MQZhCA93PxXnCQxxYyO6ItM8VhDjFBAsXdJfG DAuNj V5EG85XcXtYRBoCQauJdT2ErW0EfHmWmHvQMO0WPLwEyN3RC9fXz56IyBtbuESGuvoUW8uQHXiQQVxHe I5NyA vXpV0DOIvOw7rBVaiwrTOOzdiTA6iKGIdAPF2ZxK7TROoTaN1AUHaRIGtScIpPJFiDsGALJZaOtFgQRX 0MC45 RXUpNZ35MMKiBYvwEzB7YZRfXhIJMJNdAgMwOPHyIt65SnVhEO38CERqHUZmByb0TnNcEOpvHrU4JhA6 MyAxM qVlGiB8RSHqTmM5CO12WhVsSLAvUQewCiJ5GiJ9CbBmSTLcLWN7NFNlFxZ2UB7oNo68JmLhdaQEWttzG S4yND YbAJHtHsQ8UmPrVeU1AGYsJj5ySUiwcxXMAabjLK2jLHGvDSVtQRC8YPLsSiL4PT6nKg08TsBsznYVVb oxNS4 qDZYeFcNrVW29IDPbZVrwGBN8FPDtIuDOFSKeMdCjWVDeHq25SYFaONweTiD0DjIpIG30FUGqiqXXBwb xNS4y HMUfAxW0RaU6HAIjMd75PmPnFFFiRnZ4IFHjKmEHPXYuNoApTLQ9UU17FNUjJmUiJvH1MJ6hCeV1AVEy ZQpmC xU3CoG2KmOuMGluGyP1NVOtCnP5SU7yZz14BePgghWBDmj3Wi8lBXBvPeX1GlG9CQFtMrK6HIRpHuccJ TIzIH WoMuMAOXoqCuEpGFLqWe17EATdKHHgTxF8SHAiNG79RCSxfqOOQfx9Rj6wWSZjFVl4Rsn7MDPxUeLiJI Q0IC0 pDjB0CHNuLSehJbE1LbD7MeLcCNqeViL5DZSpRmI9LF4tFL1xTUwhxjRSGsrjJodmIrLhKLYwZi00TPQ gMC42 EHGiQBN8ZuP4ZCAkKFiqYrU7NQ4tJKHhHyG3TwZ1JXEqRK0nBAubSINmYfX6PFTrPtIETBW7QjL5AsQl OTkuO FNxKWS5SgJ9JHZxGN03SPBwpxYTSpsvXjnqJuJoOFPuRn20KISiSP36AWUbDQQ9ByK0TFTxNEdyYiX3G i45Mz GdSwT6NpC8XQXmQyY6NQJrGVaoGdC8IHQwQlYLICr6NzwjAZPwBQpbYoE8SXAqUul4SG0pFpU5QLGbGR pmCjE 6Mm37QyPsFEn8Qca9NHY7WO02LbBnSN83CKWymeTWLrzbAYAkDLL3VJZlYu76RJFhYA50SHMzKUC3SnR 0OSBy JBqwQzMlBX0wJJHrIYvmMpS0IWBpGuN6XL9gCI0mLAeqixCHWcfaBoqbKFKjBaP6NgR9AAJfFT24SHsx LTAuN nB3NYUvIiJZHlU7LsZ2KRN5ER46CcLqAmDvIOX2EJ2lWmA8ROCuGAuuTmAfUC0oZVCnRHqoLlJ4YDCdO jU1IC 7mLW7gVDkjwpRVJponQoOhPDOzCJBuQw44NLCmWG27BIIfGKR2OcV3EKYoDZouAuQ3Ed40HUPlHnP9Ds Y1NCA oHp2pBIGoXJGaSbP1YSFsKkJVHuXuZia0MnJcTRjtZXHmGHO8AsI9GkSbYQ75ZBJcnvDXJzvqQjSpXSR yIDIx Kc90TAIxBH25DEGqDYW8UwH8YPJpJGmqVhO3GT69DNIuJJsfSyG5YPPaMeQ3SU5yFC2tCIbiciIENapk OTkuN rWiTeB4QbN0YPBsNq58TdYmEPWgMeS0VUNnTkYUJxk4MuV1PXZ4NF07KeUgCxVdMFC6GE7tKaI9ZEEwB QpmCj W1JR21IBLaSYjrFdV2UGJjImF1WZ2cDE9kZZacvaZXQybrJwWaSALmLzN4ZyZ6RZEcBiB1IECdQLonYb Q5IHJ tSkSQTeXtXlhlNEIvHn69EWHbBHNpRzMyWCQkKM77QMIhrsMDYqhfNlPbXEFmVYu5Vfx6QAVkYTEoFzF 5IC0w NtS4KWZqNLsbCdPsHC00ApGdGEntArR4RENsOjJ5JZ5kWY3xNNjxefOODli3IpKqIPW3CQKkVu31IVTl MC42N HHmYGQ9NyU8TZKbXWzjYxFbUl60PEZrVxQ5FoL3LJGnGJ06BLboGVFdHyZ0ZOQkTkJHGDLjBlDtYIPsD TkuOT CqMBR7VkO7JhLtZR12LHKjfsQKOib8EfJyPCN1PTZzRw50UDDjFJ05RHVmDTH9JeJ9GREoCWdpToD6QZ 40MDY mXdN3EcZ3CTNiBaC6SYVhKYcyCbJ1AXGwHfBHYZA4XnUeJlJvTHhzGcN2NSMhRrP4KRKmII30KCLkjzH KZgo0 RKsgXKN7ANR5QI70SmJcGUWtDAX8NW9pFfX8LDAhBXbaMbW2RF10TCCvZuU9CmC2FJGfLwG1LTXgDCgq MzQ5I SIgYmCVQXl6OaUdVCFxSt40AXTmWJ98NCBkAHE1CrJ8CJHeTGenGjW7SP7hSLAiWGovFqW6QJeyAEa6S C0wLj L9QCYxGPyhCmH5CA1fTKQwTDsbGTWvHEwiGFc5CN4lWxK2KLGnOMewLtN9QC0iWSBhNWqsGjN6KCWnFz U1IC0 yCP5yJVpggdUNStq5Zd0sAUSkXTz8Zid3ONMtGjWzXYL3JW0yTjG2CMOfGGryFtN5WnX8NlPmYGYbNke 2IDEy Am61OMGdZFSwAnB4EHIyRvRLSXeyIoKoXYF5YH91WqDeHX04KKIoMLbgRRZcyfIGBtgvFtgiZuWsSFI6 OS45N cYkLA34KBDkXDywTKCrnlGNUoxzYtelZfDxBWC8UW80AcItTJsmTdB8IQ4wMaZ9NSZtWBmoZmH8AN0eY DIgMT npDxg5HwBsNP3xPBbbYYObNkQ3ZNCzTjJWDXB4SpT2QzDyOIvzSLXeKROaLzU5OU48EphgONMyDsXOCZ g2Ljk dJQVeNAejCNQhSHVwAjU7WC36MnnuAJTkQcVPENl4KuxgEPKsHQnnIDAaPTMlPuw1SN8ePtR1AZUmHKf mCjE4 Kd14BnOmRFjzYpy9QuO3GK87YpPcKU74KJEzyoDQIdacFWTfYXQ0IER0WA96FtZgLU63ZKJnBCfwEOYw cmUKZ ycyEmcbWOTmSHo9Nek8RKLpDlL4ZOFyLB31QdBaOOyyNuQxRV8rHCDsGDacSRUtZHM7OoL4SfFqCX73Y TUgcm CZBedmCqrfINJpPRzoAiv7RqZwZR95BFdlVZWcTtT7RFEgUaJYJcX1McY6AYE9AD28HbOmRT95HTXiYN kuODM ryqNANtnnDuQqBNTpRFA4XO17UpJmDP23QACaAFlfTCKbjfZGKslxHcRiZEWnEUS4KY29HlRkPcbaFqZ zIC0w KeN7WPZtNQwgRbE0Dj61YDIhBJsmMhs2ZlTlWl8wVGJvPFAiJoJ6DVDmOoIRYoSzOau5XhDgPLpdBWEd IDAuN uS5VN63JqvjHVAhEtDMWjz4PpQ1XKA7PK27UzWnRY12HJPrXFanIQCqcnIDFqhpMZgmOzPrMWr5Jau4A SAyMi 09NuUlNEDnJnO2HOImIjXGTkw8PpC3LKC8HV46CIWfItKyLKS6UO7oJvI1FFEjWEfpXlX0GX68GHSfSG kuOTY rVSWwQjC4JC35CdgoJQAgWsMDPlCaZohvZGF7JC29ZpHjZG97LNHzZXpuKGVpvxSLYhgoJmMvKGMePDe 5Ljk2 XSDbMJMvWgR4DW3tGrP3MLZnJUipRbQbKR87NhDiUUQzKfb3KMQxLr0gOzioEUYeHnK3SQHvObECTmSy LjkzI QM5LJ95MlEcMU18EVBhFLzlFHPqtvVIEjb9DpPuRIP0RWD2XU47JgKuLS26HBNuJLtxVRKzlxTDCht6X jMuNT J8UCT0VL50IwQiKhRgACT2RA7pUoT9LGNlEMclRcHtJy02SQTjLIvqVgx3LmWwAK05QTchGZYfXbZ4CZ JlCmY CHSLcIhKfBZCfFYfwHRDuTBJxSbR9JM87SftzFAEsZlHZMMW7OzOhFfDpVSbnKJIjNTFeSrL7CQ18Fyz zIHJl BkAQPFT0PbSlZtBqGNmzIZOuFVFjRgYaYMHiWN82ZUXmpkPJYpr4LFqbLFH5ILO8VZ01XABiUBNnXAK3 IC0wL fX8ILUfIQczJxU9XW81DJDcMPe0Knv3LKGyYlK3OSHkQC52GgMkPLzoTmD4XE37VoTaLPp6Whw7QDEvG jY1NS IxIW71GoWgYIonTbP7BM64ByRkKDb4Sev0UAE9MqRzFBRlRT78AEMqxlZQMal9XEucWSG9NRH8II14AL YgOC4 6TPohATKyCuU3GJChDqVOYVl0Dwk9JPRbHUkoIJDtBUInZlG3IH75YlnfALIiVcLVBOKcGjGpCFO9BZ0 3ODYg NxHhViA3DF3cErW3YQFlHWkfGxO2JsV2ByHbXJPvKgCvLQCzEfw6FlQmYD27NSJewpNUJhstSX0iEYTy MTkwL nn8MsKiLaI9XFRfRU16VxGgFCutUtC4QvQ9YcZcCILoZvr5NNIyCsU9PS73KxcdFEAfCnIPNGkzEtWhD DE5MC 26PAIaWZPkDzRxOjTrSC22ROZsbcBHLoc5Th1yAXWlZFcjFkIpIpW5EbAdXSUqIV8hIcO0FFNpNOwoVm Q3LjM 0RhXfPHJjJnw3FUPlGrP7JX59RjcoQLPuYeYRHNTpKxSmAFG9MS53RFAtPpNzFITpMEHoKzH9XIFfRdU KNDcu QuIwAGE0NZ98JOQwWWNbVut2RBSmYD67YSQkeiBJEnhiGdpmKvSxKXX3WG43PSCfEUhsChl6ZA5oIgT0 NSByZ KeiRsX8Td98PtGpEWhhNuJdKuF7CS2sAIVnQQVoRfJ7IKBsYlTQLnF3MbS3ZRQ1LS00NHSpPxHkYMPrC C0wLj W9YFPiYXoqCzH9Fr96IIPsTJqwAxVrJsYhAn94XBhvYGVeXvQ6XRAkCqHROfd8IiL9AZO5RV60EBVxDd IuMjg vGF3oPpF9IQAcQHdyDdIjWM05NpQjCLOpDsGnQWSbPQ81RhQbQGIjRyW3LONbBpAMRPYmCqVeVDRqICL uNjEy XUI6SxzpYtGpCX62ZOHwedXNTlu6SEexWAQ1KAN0YF23BVRmQNrsEMR4PA0nIkG6ABMsWUdjTkT6DM1q MSAxO JYgDmYqQJtyRMc2VB4kLsI7BVJbXXnqWsX8IsM3ZvJaApZbHaq7UAHgNxOuZF2zAiY2PAKcNWgxCcB6E jM1My CdLaAmSwa3HSQ6ZO8fXgWpRWTiBiU9YGVaCxSIYNGeLxDoORP2GO1aWVznWgNnQUUwOIOqSeO2PFDiNf YKNDc kPjGvBHW1ZQ9oVVwcTPEwRwo4XIAzFW53KZGzvnTLQiyjSqqkTzXmYHQ8WB7aJDplPDhoFzz2TM4qUxV 1NSBy FGvgDfM0Ix23KqEmLAFoVdR8SrQ7TD1pWEXaVOYtHjD4BDQpGaUVNtW1MvD1SZY6HH9gRRpeSsKpRQZy IC0wL yU2FDLjEJlrDhF2Gm64AIEgKILiYnO5WwUcWl03ZBlfDWOvPqK7CCGlNoZMVvk3CwZ7WNJ4CT0rLLmzN jIuMj ekEK0jRkH0BGRpPAmdDmWvAQ85PbOoOyJpCqc8KMJxMR32VpJfJSJjHeS2AHPjApEOHFAbVxDzREBfBa EuMjk 4WEK1DyioPcLnKN18RYGkubSEBgv3CZmkDAQ6NSI6RO1tYSfeRSkeMRQ1XT7qKjH9WUSlBJutUrA0FR9 yMSAx CgCoKic2XDekNEk0AY6bGzQ6QSOkQVegUuP6ShJ6YrDaRIKgHOrjWZHkGuCaPK5yFeQ7IIXxVVbnDnH9 LjM1M vOdICBkSTgxOKN7DR2dZuArCYErIiM0PJUoDrLGZWSkVrAbCKC3SQ42ARQwDdFmCVMbNUNlKrJ3UZGxI mYKND vjZzQlPQH5QK57ANLxYGCcChk6VGReMV68GZOhoiVMSrxkTyryCrOcCZW6CS30ULYoYVucAba3XR8kNf Y1NSB nGMymJgY5Ep10UlGiKRMwGul5ScM3LJ5aWGIvOYDrQaL2NDAaQjSACsX2BwU8JTP4HR89MIWdKwPvWAU yIC0w XwW3BHEiZQziHiL8Li87VJPlEYIlQck8BoMsAn48KChpFNBvHcO0UYEsShFRYpt8JdX1QAE9YI12VFXd MjIuM aosWF0tCwZ0WBMgURbxUrNjTL67SnXiBASgNTisZILwQY05FgCgNAGrGmK1BNBeLwQQDKGbUnUaNPYcG DAuOT fgXZK9CeavMrFmZW30XPKoouCIGlq3MJoySDO6XQP0CN28NFYvMYpqITU0QY7eLtY0SYCbFQmsDvY8CO 4yMSA mLDNeSSirRDxoQKp2KZ6yLaD0GECyGGbyKvO1KaX8GbPxDhLxRwX7MYRaErLnSH3oKfQ7UQQeFSkvSsQ 3LjM1 KmZrFwMyBdS6OAU1WB6fOwLzPSJhRbJ2NUFeWsJCUAZbDsFnJSHiVR05VlkeSxMyZXTlVXPeMwL9TGEu CmYKN KcsGsHeLBGdPA76RnsoITUyCrj5VBFwIT89KIUlmtFNAzwyTxrbXqSjFVNcUW79FuluFNosBlv2HO1kY jY1NS OgFSzxFdE0Ug84GhRkBSCfQhT7IEA8SI7kLZChIKVeQgF9YZNfNoMTFoD1YlL5UKTiUW70GeouJqXlFB AyIC0 eJfK6ELEyPGxbCcH1Tw88TJDwRRBeCgL8XDGqVl92RLtfOKVdRwY8EQKeGtTSCip4MuB1SBTlLP38Kwp gMjIu SobsZS0wVuG6AEYeUSqyYlSgLB82AcKiTpHtUcM5ELQhKU06XwZuUMHjVcS0KOEhRpQFDBLzZiCkZYRo MjAuN vQ9RRY2EtaqHtWeNX34HIAwtsBVMic7SSpaTHR2XZMaQC28RrplPZouHPL1AN8xSeU5FLVoIImwEwK7J C4yMS YhLqCxLwZ5KVxyWJi9CZ6cIeO8WNMyMVtvTsU6GiO2EaNtHYFaFpDoGLFtSjZjZE1tRuT5ZOInRWraXe Q3LjM 0WtSqOTCcVrAdBSR2WY6tNnAgWHUmIyW3PYWrRhKJNFRyPeCoNKJnKH5mFIEhNbGcYVBtWLSbQwN5VAV lCmYK SXxmNnUpGVJgVB7tTJCbRBDvBiy6ZWWjYH09VEVgcvZQVyypRxsrYmKxXLCmTE4oQSRyZYjxTwx1GN0i LjY1N OOtWAguToO9Go62ExAmWROiKaE3NuH3LB6jOQPlEDBbOeS1TTKsHrCHMiF0TjU7FSAnYF3gEDYiDuCbN TAyIC 4nKvD6CXXlZDyoAiB2Gn08OVJuMBSmUfW3OoMzRz78BOgsYKKjUmA3LPDsZhSQTqi4IeJ6DYFfSC8bAR MgMjI lDckuOG5iKpA6ZPVsVCawYyOuUT45RyQqXEBbImRmEWJqKR28KjPeYMXuSwE7BJMjIoYTTMFkUsRpQYO xMDAu IoKwLIY0KzmyYdKbSY89LNEoffIXCvw7QWvhPXH9FMZhZB0gRLDmTUgpDVR4MM1dAzD6NOJvAZqjLfT2 OC4yM POgNQWuRzAxELboGRl0FJ3yAwV1KYCuOUynBmI4CeP7KlB7QY5hTvbnTqPpQGDuMPBhPkH0ETJgTtGZT DcuMz ShNTjiHvIbYSY6DaUoTGMpZY1mCiV1PBZqWYboCtL1SbQ7CgG9BM5rSyxfBuQzJGSqLXHmYcL7VYBmEn YKNDc iFvPcXTgiExSlIHMmHlAuKVu9XV9vUgS0YVXcCVtzTaE3PE9vCMPwJFGaNER6OQS8CeU5RIFzDH88WZC gcmUK YknvZAHmMCR7QMddLrObEYM1KK4yCLAcTZDfXsW7EIWlZlOJOcK1ZoO0RUueYjByPQHcCB10UGJxXRQn NjU1I MZpWdSUDiQdYlc4KfH8GX3sAvgpTpUkQrf6XR5aUsI9DRBpXZlaGcV1OM35UES0LW0uRosyOqLwXssfU C0wLj X4URJrRYodMpXuFT35EuN4JB9tWgbxWGBzBiZ2BPKhYC87FQDtslNZGjo0BaDhZPM4CJavRaTmPGKjXZ 45MDI oUIWwZrM2ESBhYdUSXPM8WvXkVxP2VJ0bPxweUZviGKA4TU1cIjJ3OQAeIKxqWwW1PG5ePJX0PT8qQkr gOS4x TtJrGKUtQxP9OVGdHrHXCOilNlZ2TCK4Se73AWPpCAAyLrT9WBWdHQ96JBLyrqIFUxeiZh4hFMjzZGf6 LjczO TVyVwGfYnk8GI6uExE6VIXwYEqfFjX0ZtBsRRX3FMRfOCn9IVBaBkZ4NO61TZ95TXWpsaDPJodjOTbfA TI3ID A3Ig13VDXwDO75KQExJFP9ZospNNVaAFmkBfDvTCX7HZGnH07ERWjgJWM1ZHO3Ke0bQjEkYVXdMaW2Mm AtOS4 6DdFwBQrfJbAhCGQyvkltLEbdLHVhQZL2Pc65PJFcLXKeUhX7OPJmUL14WWChybLCTdrsWLccODPjKKZ 5OS43 BVBeSIIzCiH3OJBjDK26HQLuupAGXkaiGSonUWFvXIN3Az92MUTkNH90FOOkPIJ6BedyLWTdOWhuSyJ9 MC44M FNiYkH1Pqu7EuAzSvP2EGYvXTlfTHM5PVNqXaROKB81WSqmQEXxsichIcVqVNS2IRG5Hz5xQpCzArGeH jEzIC 97RvzyKXRzEcSOGKv2YxX4IEG5Ok8aQtDvNFYkAaUlDLymNMZawqRDPqahIlAoXJD3HTI9Oi7gFsTgIO MuOTA 7AJ65MlcwVVBtZhZOSnDHW4HjGZwcNTRRLLEcUB8+InLVLYfwRUMoW74SL3PJKQHvGSGeTv3zYuTsXkB UdyA3 Uou0MefoHVHhUIsvAUHcKSVvXp98ApB6VFO8Dq9cKGKtZWEoMhmvCHT5REtmGMdhOIOwLqmkZCZzAJOp bnNja P87p95gj0U9CC6AQbtJXJUiZo4AWYp1D13WJVPuJmI+MeJYNqAML1IBKKFcKDQrJuJ9IiSzVbAbPT5qM DMgVG KKOkeJyXIddHahDZIdAMTnEVzbJPjZRW9AIBapBTA8XX4FN1rDQVIkOu5UQNGmEp5AQXUyAVEQAgulUr 42Njc dKE8zNJTaBJMMSrkTg4KzXI3bGgzya8XyVNWpHATYz61sC0wpwDFcRFXmXbiaOCsQES1RZQlzYBW9QE4 NQ0lE HVuaVn2LXFHcEn1KWSToTUVOLvqaNYW5INYvJdY7OlMzAZ8hVDJyTUWVYV3sNPKkDpYGMdNDL8ZeOKgk TUNJR CAxMSA+HpDICsHZK3JNWQPrWLMoHa7uRdLeAkRDizEmNCnaLCHpWW46NUgcFJLRBkdQnPYkyAPwrNd5W S04My xiVTZiENk3osXjKqalYHwZSR5GMPcvSYK8VY1YT3rLPUKuUT6+QkRDIAovVFQxIDEgVGYKMCBUdyAxMy 4xNjc xRB4zHYTdMCGWJD9pCCMbRdRYKuDHW2CzFWvzGVTOAVLiCqG+DqTFSmQWF6GKDVLqOPAoSk4iUgTrVwX UdyAt FU17QI5cBlR0BfWFBMfmUX2wdzRmkDqqGxweRCJwPAAiqxT0BH6ISidOMKWhNk6GGIj0O84VXZTfVKkg Pj5CR JHxNz4TBIFeJIKLFvqdVGT3ZYfpMIIkQkX8BsZCSRiiWR4eaFHqeEXoZF6uArorEG96HatZXBTrd92hE 3JpZW 27ZDKmVWubSS4uGQC1YRIkVPTfBT6ayLLlbFBkVW8nCmfoGF53SnsGpY7uZH6zmBQnjIBpFN3fFuevGT 02Nyh UadEqeWdaDYxAJG0MIVqqUKU1CN7LO6aDDLWgGQ0+JzTDMHaaIEFrMyRnVO8eQzFbCdZDXUqsBYoTnlm FTUMg Lt9JAVR8PM0IN3oMQSPoNV3+HkVTZCtoWJRwPORbCTSOWwOfAY47MKRiOJPAVNC3ePetwsvDihpUGJFd CkVUC m3OVEt7P80THYUjAwujTn3AWDHyEmKNMr6SJYUqDANWAdg3Eal7RmzmDVMaIIwbVPXsAER5RL24XBNnH jI4Lj EaHfXeYZ5FDIgxQeXpCHwJJKAZP2BQDLZGXjHqGVBWX27NDF17ESFwdcHWtMYfUXTkVYYqSTI8XuluSD A2Mjc pTFhqBRIzjNwjHMBipAvvKG1rYIYnRJZbHqYITQrLJMZdLnCRPj0BTPq1Z67FOKHhYxvfUh4CNMHnYj3 UVDAg QPKVMpfgGM5eACmaOClbCp16YwF1TTHjLCL0Fuw5PozyNvujZHT9LUJ9RekhHSQ1YPYZqToeZCBtUGiK RU1DI ChQPXqgABH1KF9DL2fIMWOgPP0+RsKLHOgSSWreKUGuBQYtGWLSXZRTabR1Pqy8QjzpVNKjITpvJVVmU CAxMD ttQjB1IRRmPN57Ker1ZCOwNvdXkXlqsLtMjxuEZHtuEGFbJYYzOQKfIYW4KeTaZPA4HbfgTPqaPLUuxE owIDA rhAfnMC8wWRdiQGCwSePRTVlXBNRhDmPLTt8GAWd3D75EJSVyKZWrZz2OTFRrGe5CCFWeCXKGWtikJQ1 wMTcg FHydUl19OtG4AUXpWMY0Cvm3ViecUIElWlp5APctGnT1MkWnUgIeVT3BDRWlNBMyGyTQQjKDA8PrUNwh TUNJR CA0NiA+AgZWBwMLT2BHTSBlAIEvBh7nLM91WMFlDHNdLrXyHPWCUfcZdZkqDzdoZIBuJCEtEIJRJlNKJ yAKL1 TvDVdfDNBLQFC7UUX+AaTFEmJRZN9yOfdxWDZIEPzkPP1tzd5qqFkhTtewDPYsXVKCGoUJKwGGW5YzZL wvTUN MOLZ5TFD+TjKGBiQVXEYLecM1JaOfMlYbUXCtBdtSf5ZqFXwzVAeLSU5PCSnkDWF6BK7KN7jVIKMiQQ9 +QkRD MFsfIF0sXHpbZMxrMVMkKqLuEPCgBFV3ORMqUrdeXpLgG0D5CQ41MsjpKOsjKUuCXT2VEEqgTTN5RA5G Q0lEI DU1ID4+FnTWDFx2ZaZ3RyHcWVSyFqulLsPzR8PzziHwDVCyEDAsIP0AZxdWJBTxYr0JKWy3M97KQHOkE TcgPj 9KCWGrXyMqPLnlTw9dDrXkJDNTVIrmCfEaV9CqwoXlESdZUQ0ZOVyvCGL8SC3QS9gENZWpLK9+QkRDIA otMTE xVMXgID9wLxiyCKCWBEWnvQ6oypMcMvaTaysTMLQbGy1RLGj0L49TNLLgWqQuEl2JONDnYpP8WecaGqW yLjUg POQADJQkNFqLQN5GYOmLEKyyESE7PO6DQ9fXWPgtBH5+RnKKBQfYIViqSFMkCWUkIYNSSz83VjL4JBJx MCA3L zl3BcfvCOc5OyqpYETxGxM9XuHgPeDyKF3RNX8hrF0mKAHgCrNOHvEqTBOzNCZaLDSkRXNqDCA6FfE5L zguMz Y5WLAmmRbxRNIizVkgFY9fGFriNOPjOmJQMXiYZBAoMxDULf9TZVL9LN2AJ2gXOCttKG6+QkRDIAovVF QwIDE rXKLBTAEgPJL4EVC9JJcdQPOcYQYyZVRkGx31XyW4ZISwZH2wULP4HDNnZN5tVoB9PNLoNnhyYUfHdba FTUMg OmDPGz7XNOg3F31OFEWiKxIfWi2GQYCyJxJDRk8WFJSjAYVBUlguRTP4PVsnBQBbZXHwRYNhEk04WsK5 IDIyN l56IuG9MQZuQF1zWpM0UTQmDjgPKT7kv5V1UCZhHhMCRaEoMJYnXAKsUEYsRnsvSPL9JYS9OjquTvC6D SBjbQ hcRILcvAcgSr91ZjArLBLuWmZQMImMEUIuZeLPMg1TFJP0LS7OH7jMXMw9LJ4+QkRDIAovVFQwIDEgVG YKLTA fSKJ8LNG7MJieJBHrKRBqAGOtDv09QiM1GEZ3MK60WVC6KJRrYC6vEcW1LASrXwegRVlPqxaARPTqBy8 QIDw8 O55ZUYLtJnldOg7KVXYoRb1HTYAdWTMYGirkUBZvYwC9EH5mBzC2EgTRMUnqJXlFZglmSvUvOLJmWKVS CkVNQ wTMD4TeNCdoMRDCXIX6IBS+FvRELnTKEw7sBgTySMDOWZnaAY0iim4guIbmFdwzFXFpNZQOIzCVCyWUS 1AgPD xbACBJHMC3WfR+WwVYTdFHOMHEwaS2IbC3PaCrRRBsMvzXg5EqPFgdBKkKAP6UJBsqGNV6ID6UM3jFJW g1ID4 +IjUEUYeaUL3aPKkdHQxrJBcaFBYqGS4uNrtgXCRKIzoXLDrsWJMfPUBpBQ4FNtzKMMZfTv3PPRt3E75 DSUQg GAuiUq8ABCZqRdBfXiBgIOJlVXOHRmnVr7BoUJmnPAN8XTPrYV6NTqbLBIAgLp4JJBo9F52OJZLeYPpo Pj5CR ISjCtDnOGloQY0kTgfnPMRMCNxuCb1nfNNjRPTfAvJBCjPGM6QtXKheVLONOUH4DkA+PkJEQyAKLTAuM DE3IF Y5EQ32RqGmIVTfPSM1WODmLgyiCXj7GB4hEtyxMFvyAVuFZC0PQMxrGUG8CV9GJ2dCKBk7DN1+QkRDIA ozLjM sTvYkMBFcHmdpFy4qeROdVF52JxypBZlbPLgWAR5QALosOKJ5SP1AH9dHDJb6NS2+WwFHWVbqZPE3VBN uMTY3 WGEwJWNWOB0xzu5cdCyLufnYGTQhHc1ZAMm9X69KWTStKBdyMl4TOTNhIu7mThBkEjWOplDuGD67KA3i LjE2N vXKICskZZTZPqwhIqQcGERrHJBLOyCWEcCPU6DdDVfaIUTENUSeGDWoIs3BRDXkGxStIuQzYADjARQKY yhOb3 VyOEteCVT0SSWyDJ1CJiwRIRPkMk8CIBs4J02DAPXnMCLeTX8+RwUQHSscHGC1NKSjRDB8OUVbIGKRJW 5vcm1 pmYpMgktOGINnFcINCf5HXIf4W45AQQAyZZV6KQ5+HqMCQTjrRmKhVYJnDTV1AkS1HCSnydWGTcFgBsQ UCi9U ZEOvBGLQJwwxFF2gOOmfLQvnDz89RqZ7JRRhNTQ0Asa4JmhcDWy0RuG6YuSyIlM8BsL6LQScLX8OSqrE aXN0b 0A5RX08JAwjw4HyIHQkRPTHkuXvWF20VV67GQrbGCmfdnBztevsTNlFXGSOUP4PJEkGFqGRBv8EZKd1O 01DSU KoAIB5BD2+BlZDPEofXIOgBWZgHTVAAG1rObKsQSlaKu7bLUw9EZByVWP0LvPeUXSuNNQqNzHyLyK6Dd kuMjg 1MrXRfGghOMOpHQE7WGVkNDMlZSO1LYUVJsPyPRX2FONbEMICSeGBWbSGT2TEWCs6T51UQDExPBV9QO5 +QkRD HJjrFXUqBFVuALBYUHPrUIS6MWM7BDhaXZZvTLBtNWVuAw61AtD2DGC2FyyuZJU3TkEzSVE5WBUiEbni TWVka SEhnVlsLMGkSYxfo9QrukryOJPEReUMGaPIQ3ZSBIr2E54GTKKoZSN8YT1+ZpQBIPiiAW5oJMWhAHIAQ ApbKE T7koQrmjUpSQVrGPQDUTRmW6R1qK5ievveSTfVKF8EBXnwTXjvMOqjYQYVHDRsKyRhFh1WLSYbSnUoTY cgMjQ uVNQ7QTUvCBXNRIQsmAXqL9uzrtqMylvAUTQhEx8RCSo3W88RTSGoWRK0WN4+QkRDIAovVFQxIDEgVGY KLTUw AcSoNJYcOHLODSy3lLKarQHxv7umnqbPiayJSQIvAe2SMKh0X80WXIYtWDRkHO0+XhGNOMyxUC2dWJec VHcgM PWqUJ57JfBwLHPYWulAZkMckL8bCEdsOrWeROKdi713SQ56RcnoNo35SN1fIvhgYlTkn2PlYNVvTJFFV kVNQy FZD4OxMDuoOPRSTIFyFPDrIn7CEJZhAtLzULW2XIM0EGagEtE7KUCvYOJvNd9pBBt5PAF8Td48TiZ2OR cxNy4 4WxVcXHQnZwuoXb6oUMchXUMjGSnmm3QxXLvcZUjVCJ7MDNzaAHG0FL9JN3nRZFG0PeN+PkJEQyAKMjM uMjcz PBEoEAACHldQh82mIZ47SYhaPFfmzWYaOW9SDluCDQRnYc0OAWY4OS6YZ4qCOCC8HZL+DsDTImSGV9SO MCAxI WZwXa1fDgJzBxJCovY7Qey5XyudUAJkJYarFJNzHRVkJfGxOLIvFlW8PBgtDtPaLHDDhHwfQX3qlASkg G9naW FnmHboGZPoPKU6NX5kOSPXGkWYAtIRP9NVPHk5G17GBGPtFKD0AU3+EtIWUQlmQIQ5AW2xRl86HzaiBU E0LjU cBNKFACQyxtphgAwFtjpAKBGkSe0ETQY4ZG0BV8rVXAC8LmJ+HnROTgAWWtVkOVD7ZLPkRYAARBBfn7L pcmF0 n7U5HDUxSiMXYtXTW3SzSKvvFIDADWMjTxdaOc0BUNVfNh51GG5iWPToDPHwCLeqRULiVylCkWC5bXK2 KVRqC jLOTmIIG1ZyORzqPWQJVIWtIjnwOy3JUMKfDs2QHGPdIUHEFvj4OoD1LrGkYmU3DrYJAAonLFI0TZ06D VRqCk VRFzIVM4HuQTflEYGGAKMjSEjwXq7KQMNqGl2LLNRjSXBMNjemXm5gWJIsAB29OGQpOipBRlJzphL4ZE RqCkV HUfQAG7HyVEtrYTFRHUHlJAMfUq8KOGFvIc2LTSSfDDVWWht0KaA3FrVyYaM0WbIGLCvvPc1lhTBfNSZ qCkVN RaQGC6DkNVjmBOFZCWTeTZLmIl2SRMWpSl0HKUQhMRDUUjnzMN63YYWmTDNzNVQOSPfuM619moXeOmwO agpFT TZdOl5EOMh6A39RFVOdRFk9ZF4+CsMOJNq7IrH4YeLfKROnXrmQDedWpigSFFWmZx0JRUt8F96HJTWkM Tk5ID 4+JmDCPAqyTGKaGTKuJTRNORSpLTS9EYZ8INHmJyHwSPCIDKckZPQFjGOxjluiTAHlUKCgCF3ARolGGA MgCi9 SMEr5P34SIXCaOnVwEJ2+UkHRUJzbOLKzQODzZKORHUKQutDzEkutANrHTS8ASKaoUGI4FN6RX9kFZZR wMiA+ QrBNSlYBR4NODTSjFELxAz6lBvMwGsRSisY6SeU5HvKaCTKdAsqnR6yyMTXfEIfYRS6SBJtkJDdjTUvi TUNJR UUdOMjwTi5SNQZfGw1DGFTnNJYCPljsFSB9VU9hDt2eHZNwKJSdOyS9HYRgVxhFOZBpvF62QBJkdHnvc ilUag hQULIbBv3VPUe2Y51UVMTvZsU9DG3+DiELMWdpSmHoLBR4HJ6eRkz3KXRyClfSYoS9CWWkWgROZlJNB8 AgPDw dIZXIXCKoIpDoYi6SYOQcVs0NDEJqOHGNDheiXI7bGZpdTJtkXp55JCngKN8fJuimAGFCRcePq3GoJXP zKCBD fUSye8KdUW27XOnqMBojFLqIYW0WAFprXSH5LE0QQ5qYFCUfRzX+GxDBVzZFL0WRTDCjHLJzOkaiUnTs IC0wL aR3KeVUSKvfJCQvcR2gALX4IKTZCWWbnFo6RT5DRffHIGJfLj4UBMp2Z93PQGRfLaE1QW7+QkRDIAovV FQxID KsKIIQZp86QRTeFdS9PxEQXPguQZmvo0IoQLO8LEA2gOAyZP6nZwdzBnygXdmmCVViY76yKOKuKUIkES AgKV1 RDscOPWZqQq8AAXw6N46FOHKnQhR6AS5+QkRDIAovVFQwIDEgVGYKMCBUdyAtMjAuMjUgLTEuNzUgVGQ KKEVk XR0mHqtBiquROSJfNm5UABd6R23GIHIjNpDeVU0+UiVLGEcbLQMdZSWzWZDMSHDkQQW3NIR5JPSuMGB1 IDAuM CriSWDzBsdxWc16HA7bOrpyK5ugH8omIFooUWmNSV2VDBwcZKZ9VF3DI5qVIMJaZRK+HaJAEpCVZ1ECM CAxIF QkRyFeDFxcRMvjND77DrziNAFSUCV5uORvsxgEmukANKLgCk1GQRl5A59HTKXeSqLeTD9+QkRDIAovVF QxIDE jOEUJFu5gMZk4YVPpRGN9DfRuRZAfXmB7IqE5OEhvPBVkSyV2BhxnFJ5HSXDxCTgTUZ4NCEgSBYxjHAS 8PC9N G6bWUSX3AIN+HeKTNsBIXfRGI3HZRJTjAUInUhwqDlS6GSZzSOTlBt6fUGh2HNE4OM5nFSD4LZHjHs05 ODY4I GMoAbaFXUS6XGTfTdVHWwUcDGIgBEHbISBbIUKrNhmlMpA5MpDnZNChIJUdhJjcQQMfbAygSp68SUAeM CBsCl ZVELbJMQHaFt9YMCr8L14CEXPcSkL3SZ0+BiESXMrLTKpmUBViDVBlSMCENz2zFHq8MTKoPGF7KpRiOF UgNDU zAlQ8LkksLVIwZxO1BkwdXO5SWESjO1s2CSPcArRGEtCaUEWdQRIgBTS1NJYgPclvLkT6IqIjMRSwYMT jbQow MWIbcTznKj5lZTOyCWOgUrQWVMqYEPWhFvMDRn0AMWk3P80NOOAePmIcZI1+QkRDIAovVFQxIDEgVGYK Ny4yM Bt9XNGzVRL7XsBiCFKjOyD2PiB2VRceKIB1TwIiXbIzRH5CQEVjfv32dVL7KYYdRfVDJvKUG5ItOXkaY UNJRC AwCGMnPz9TNPMhEtFkPIZ4YHT0AYOgQJuoCWVtPXXRLlbGi2MwGMX3RRVWcLDsx6PwGR29AcrfPTxoJQ oKRU1 CCNfeMBJ5DH9LO8yPNLA0NiF+GwKQSbQRJY3nYfZjNFCLTZfePD3nkUkzOOmiJTUhAZMlZGAdUBpaBDE gKV1U BweIOQToXq0UNZh4M90NOJDiPoL3YD5+AuYXOGrsHPH7PN1lDuDgHZ1xDsOrGQFFOWMkJXrzwUjyZQdX RU1DI JuvCKI2IO1IY7hRIGZ2JZP+LsBJPsJFCX6tGiPvWPbdPC01DxFbOIQPHPfxLV1mpx4lgGoeRySfFGRvP VRKCk OFSzLHF5ZnWJyfXELVXVDtCjTlJt6DKOFuCypjHsU6TBIgEWDPOxhMp1WqFRM2ULAGrXNmg4BsGN09Ab ggICl wJBoAIN6ASJxlNPD9EX0ZN5vYMVC8DrY+MnLYQmSBJWOImeTbXAKgIOJ8PN3eKoE6OkIIZXkfEbZwm4X hbDop ISePGQ5ORTbtZIK3EA8AW7jOEGR9BWQ+RgESJePQZB6pOkZpRAdeJC0ePPHtUHZJJTxtHP6geEcwWLfk IENoZ UBqUZKyGNlcSQItXF5IHxyWWQDwEp7DXVj7Q16WDCMsIwngXK5+UzIQYWg4LkD2GRFeBHYkIughAe88L S0xOC jxO0elJ0zbDAqcEbBgHKNhXHEMJpQHIcPBB9YbQEbtUXIKCCTuQtCjZo6XCXRqWpNkGOdqGx14FxXtRN EuMTg mVLCyMzcjQOZzZwMADgODK3IMPDm1M64QJGEwKvs0HC5+SjQSOTtoAFVfSDDnSPHRFQKpHKB3AYO0AVi uODYz FVSbTIQkIz36QdM1ABKoSZ9aIXUwJWr0JxSpGNZsFL8HInpZs9VcprsyXXWgHEXhaRdinVThNTXcFGZY bmNpZ CRanOyqAFbRLZ7CIAzwKQX9ZW5HU0lKBIF7JPO+EoHTNaLFWHDPtaT6PkNjULIdVOVuNVqhGhV0TUFgM jAuMD O2YjI5UzBrGii7YIQKzMiqSS27x7q9CJW7ZRIfOiLQGtZRW8ToQVkbHYPVSTRkNWAbBo0SFIFxGc8REW EgMSB FNcs5LnlhRXAwUZCiSjihBLKyVrDDGiNDL3PeSGjxLMLAFIEaRFWuEg4AGSLxWc1DYBLrQDMGIfrdZY6 2MzYg UFEeOparWBWlYyrKeSEzOVa5PVWgPqLQEyOTN9QcRDeeEWJNHGYoUEgjTj9WORCiGc3IRZRdKCESWvqj LjAzN lZHjnN8ZhSaZjGoKLCiUehnEc6rIXzzVGOQkOOsNFnkSML3FTKIAIKyk4bmZTqzJBrJIW6QUKvgGFS5P C9NQ0 iCSCT4YPB+DzKHVkJII2KODAQqGPIaUf6xJp3xWaBqINUlQbfgYREyKhuuFX6xAKFkf39kWKJ2HNQnIo ktNzM wPUQ4YV91JqodvZ1gRIdgONZNMJzaX5mqEsfmPIgMAR1UASiiFLO4FE8LW2uXTNK7GjQ+HuZMCzROJ8R UMSAx JYGrPdO5JoH7JDLcWEEnJlbuTiMyasLqELggYFDVMRN8GJ66GCwjGN0gCyaLQFJ1VY80XGfjT8yjBPqf NTUoI Ffsy6RkTOQ6KLPan5JputT9O7rgTS52GXayVRQrljCaRFklHOWAGfDGFwWCD9QmQXrsHIJRMITbOIQiO j5CRE VvTl6LRSXvOCZSExrfYM92YKKpYIOnByngUNItZrhzXqSbiMLtMUuaGyFzTEzpaWWqlKofSQBOLcAYZd AKL1A oSUbkDWPURCUpIFivVi8RPKKpGc7QTFNzAJHLLkooOSE5YBqqFUJ1OGOlRMFOMFLjFWhAJH0NPTxhYFE 8PC9N N9nEMFGmVGV+PrAFAiMMY5RCXBTkQTKhKyUbPKT2JCK9XY6nKm2vYLTxEDOuKxrqDMJlZrykMYi9ntur YXRpb 94jNUD7ZSYNXSU5gQFsDDtjCPSCJgRWDcKTU5GiKBjeLVAXCNYzBMDcCp3ITSIyGu2UPFXnPWHMVkkhW FR3ID UhHhB2MUOyXKWjPqxSdwlAwxnQCEShKm1QPIi5O45LFXQyIjF9NR7+YsSKVOpzTRWtWJChHGDMWA7aRm YgVHc qOGlnYrK3BX1mLvJ8UkWKYZhqGPfxfijaDTrkAOPDUzglDQocIUUwGQG1TX0QEtpBVCWzRx9UMXi1S98 DSUQg FuL5LN1+HpIQFAtcPKGcWLPlGFCISIEYhkL0HnB3VNVyIMNiLlvPdurFxuiBLBBmSa3UIQD9JO9WH6jN IDMxM yA+FuWRIwJUP1WOYMSpIUQwFf9bRrLeLlVWkyO5Cqe7HrmyAKEkNGqaGJTlVPAcLmayIpHyHFP4VVleY jYxOS QVmCyuKCwlmjMhpXgjEoenLABmyZIceBDhLEMXAnBEQvGNX0EoQLjlEDXJFTDyNYGmKx3IEFVpBnJvQC M2IFR 9KTrwFvQ5OFFtGCYbFh2eRTz5KSQ8CD7jAgEwVWB3DG22QsOzGXZjUhgzUsDsu37eBT4uHueqPa3kKX7 xOCgg JJ7rq6GfdORmGsmhHXgHHG7VIPqnHPP1HO5KC4pZSGWzTIU+NrLCAqGHP9KRPBQrYBWuRrJlWCvgPHYu MTgyI ERwWNHZUbdYu73fILI7CC8cIDJ9HUkagiJkhEmyYHcNIG9CJNstAZT9CQ8UQ9kJTBFxLUP+PkJEQyAKL 1RUMC IgLATkHc81QeK1VNCdOY0wHcZcTBBMDplHibMzlh6IzHNwuN3kLN8pWPy/VR2oSyh5YT2CVywFPPXiNt 9QIDw 3H84EPSOzVkPeHH4+GxYQZRcuXMHxPLUlCRNVBX47IVJkQTNKOCkdDf5dXEpPdagMSZLoDm2OFQn6V26 DSUQg PeH2EZ7+HzDGTTpeZYSjOVIxEGHBHE5lNvYuNSxkEDM6NdzkOFAbRH8fVbPsHEZRWjeEltCgE9DhB85e b2wpL QbfEQTBgdAfZ1X6y8HxVN44FXiaXRJna7GgiVubBTYGIaFTZdUDY5LzDQsgTBKEARWvWpdwHy5EGLPuH i9UVD CpLXBCNbsaLXC9JUQ7PmorCSPcSVWtSffAi33ePBLvJjKPHlKZS2LXOHn0K79BNZWvQfN6GI8+QkRDIA ovVFQ iGAPlGUWJUSQyDWT7MAN4QWlrCEIxFOUhMHHgZv16WrE9ZHLeHc4kEFe6RGQ2Mp17DuqtALYcZpcqTL7 pdGlh lZrsYCBbUHFobNHeA6CyTN1jAvksYwwaREjiZ9BbARLTBmXUKqEEWVEEF5ZvFXzmMRRPTVMfPNeeOu5L REMgC gVOSz1XTZKiDIHXVgyxKWQ4ZVssOGAzDCVoZODcIl23GfI7JBN1HdG8YzEgLuG9VsgqRtZlCI2PFRBeg 2Vzc2 2pvwEvDHyYKNZOuZMzBRZuGZHnRIL7DmV8WvTvOqB5TdW1XcMhH93XQSZuDE5KHDbcMPA4OZMpqGfXNk EKRU1 KFXkrYJJ8XW1QI5zTJKT5LmW+FbFJEaGFVgTVW3FMUYFbYUUkJs9pSxYxYpWAhbS0Tfq2LlooSLEjUFh uODYz ITCyXX14VFjhPWTcAb3dAgU6ZKHaGjnaTOEiSTAsqCZfbXipXHKoIUV2PQ66WYlhKMAdEfTlPnIbVJzb ODMoI VS2XfH1OO7ANrlHFGgaJCYkIRRwMNLhWVKoQAa1PmYrZeHeHdPwVrCtyAmcAHIbnJrgYQJiEMY5GSKga ApTCl GVPM1WGHfSZHjsPQO8CD3CJ4kQCUV1RrE+FuOCPxPWO9LUDWZwTLLeNuejFKVpKJVkMDMsUa66CxS0MV E0LjU 5JkWdRfUlOdiqDKSdWF1PWvlDEBF5AK6rPreuI01lEQntPUCPOqRTLlVNV5UpYDelQWDVUAIfWUixCo1 CREMg Qa4RFNXkLHJNBli2ZhZ5DzYmTBMkJpxqFYNjewMraU1hQX5iJlctAZixFdrnKLY3KPmwqC3bDH8HUdeR TUMgC s5DQCn7T76MRDSgWfAfOV3+GjVQMSvqDNMtBDSxUATJGOSyTIxkHF3dIrY9IeFFFSpkHL9akpHzmPfjW jcoIF J1BOB2rognUXCHUtKFSkPFY9HoLHqeIOCAHIYtOkTyHa9VURPkLx3VOSMsWDJGHwy2CpKiARSTCJagRO BPcml brgMmEGrxChPuRFgoRcqaAKXjdoCiOXoqOGDgZO33IzasX4AdMS90FVFyCFLxPX8vUXE6IBMpVYHyTS0 4Mygg LHtaUinlKN1vmUJjtATpPD4uBknzYY40NjdITYPpr88jSIJ3XZGgVQ61HicyF8EfAJ23SFUgEHHnAM0y LTY3K NStiBYkNKJOYgEHWdYOO2DkYXljYKBLSPQrWwOtRm2SLYVpGg9QHAWnZZKMOnaqQX66KF6hFuE6YiALU ApbKF GllF4tPMT8ZJODpU8voP5jycgiUBEREkYRVwVPQ4PvNLprRFWPCTUvIrawKm2CXSVcWj0HZRTzWLKYLr o4LjQ xWkHmUUAeBclzGSRfaN1hYBA8JVWjqV6nPFkfVGUvSLucuu7oON52KjoaLQ2oAR0wTflnTZB1OydqJUc KRU1D EGojESqlMOkbJUSGFEYbMwqnWf7LVSTuTz8WFEPcFTMIKhscAg3nJyGgNYUlGYT1UCRhZsqoTP4bajVi c2lvb hxpAZIrQU6vYNO9TMJLbATzxo4cfXXdUGYAKtMFHvSTY9DkDJniPKHFJXHgVYAiBv6FQQVhCkNrXCrfO y4yMD o0SCUsIBI5BuGtJKIxHPBfSJS8CYPeZWxiTkk3SVUlBbzSbYN2JR81QMWjVkNLEsGYK5JiZBtcHMMVGR AzODM oUg2JWGJhUw4MPUSdGXGFCohtNtZoRxSBrnU9CmL6XbVhVOUrLcfdNDqky7EdeYfLqbaYHWWwNl3UYNa 8L01D FDXyMng8BM8+TfZMKFsrVABwJXZrFZWJXQHgKkszNI6gXaiqQKGTDKxeOIZ3nAN1a47oSX7bREgjAGPc c2Vud GliHVTOIcTDRqKBG7XvSKsjOBJSRVCaBMBeIk7NCLMlVm4ITJIbFGYEKlmeUH7xOfDwAIBXWKndBUClL GFpbi axTOBbILdlA0XzSKUrvLkbCR4BCpjELLQcOx1JLJl9A70DERYaJrq6AJ2+QkRDIAovVFQwIDEgVGYKMC BUdyA cXOUwWycdFC7fNjjzDZPFMUwuDK9pgtHrx2jygbshSQvLPD4BQPltBZY0KE4DA7kMZQQ4UAJ+PkJEQyA KL1RU WPQcSMYdOpNyEJJ8BOF2QNNrSkM4VDNeUDYSHzyyHXbetlMvKGtxKCyoTGAYwql7fryxDISODuRPHkBJ L1AgP FglSICKFJLiVBSlWb4JRALvLo2SLBEuEKQWOlqzCf66TpZtOYJmRXQ5TJVrLbdpOD2vnFpfhFxmObHrF FBhdG kqswTrSAirEKCGT0KlrZs0YA8LYdvJBFLfIr7KEPk1D01SZCWhVpakUL9+QkRDIAovVFQxIDEgVGYKMT QuMDk sPGGjATJVVeyqHK94WBPuHYrvFUDCQ1HiyEglCXS7IZCnPHcsFFMdUWrrJDRARnVYJdAOO0EdBZwiXHT JRCAz VJlwTb6SIQOmYv8RXEBjWHOIYbddRSF3XDtaOCNmRZEeVQEyXy62BgR8OLR7Fd58JdeuLXUkGU34AvV9 IFRtC esZO6Rejnd5pIoKhfdIGRQaZg9CXKO7AQ7FS3qKUJEdBdB+UnJZWoNPELG1ZvR9PjTzJW5cBadoKRUAO FRpbW BcOMnJLS1VUVclXAiwWFieRMENKST5NJCvSx5DCDPzLgqbQINlZS5bWuGnYVTDLWxeQv5gPWaHTW8IDH ovVEg zYFwhJDSCLWN1VOBiHi3QCFCuKiwtTJE8UNPzUMSPAUVQTzbAxquAMIAvFu4BHED5BR7GP6wTYIIpJDY +PkJE IuPTOI9sMFWwRNFGTImnCf9CBlrOpoiEQQNqNd8BMBR1GU3IV7bHMYEaDBO+YyBRHfTEBK1sXEJrUZKK ZAooT KXNXFSeMfNEDmIWV1HCHCa0T32ITIOgWJWhLA2+QrJMFVitRJ9gKZmtPJlmEx37QECaFXKoPfjgYdHfW TUwKC LEoM3jVW0KSvbRUIHnPv1CRSY8WG9AN4bYDKDfMGW+BrBPPeEUWFRSkvY7FlF7RlZbLJKwAavKETLrZP RqCkV KMxYJN8JNGEa9B09YIFIjCVW0BG0+JhSMEWu9NdU0ETFtJDFHPLIdsGUnfUrPeuuVNTUuKh9JHJQ6UD2 NQ0lE IDQxOCA+ApMAWfNIKL10DPukQNOVGVjmZ0GHPESlYhMXNtOAM1ETQRk7C64KSCMpTUVfZH5+QkRDIAo0 Ljc1I PCvROJEDLtaHHIWZGChGkAPRfYQN1HJPXf3L28IONQsOIFyZW4+DcRYRShiXI61EWmyGKGyIVjlBPLrV ihNZX Lps4RuCIfLSS8JMHcaZNqnIBspKQRGHJF6ObZcLy1BESMpYxVgBxOoDCBuNQonZCFpLoobISSmJgYQPo AKL1R SCVp1R11CMMZsTXR8YI5+LpRSOLgsUZ6zTVemVBhhWYAlLdA2MW6oFal5BECzPxzqFZ2WUtuyCAduSS7 ldGhv VFaqIIzOJB7ZYPcnZIcgNUkoJDSDMZH4VpehWj0GIZCuOrUgXAcyLXObVAO0UTEhPLIVOVQxQRsBSX4D IAovV SxuVRcdFIRRZTO0NjAeTt3RXLWzJf0vRqOaLeYSmiEuQlD4BcVqTOUeAslhGn6OKL9kGwcjRDR6sZ2fX V1USg eUHITuRd1JYEF2WC7DJ0jUGUHbMxH+KpRZHeGKSIBYnfZ0KznlBrMhCDClYtbIJ1CrVIpDUC7HIMpaCU ggPDw lOEZCPWY2YeIbGd6QEYOqSqBhCGplHWUuPPNKPPMeGPeTFO6UMSqtIDiwXGhbQSURTSE5LpBsIt0DCCL gCjMu GkEjIHHPZDjdOLsVzegVTCAtCt8LXQR8VU9JD1bPTOJxJVK+RtBQGaRCFTDoXVG1TGO6KVIbGPCnRSMr VGQKW emHFARpUM7pVjuoMMYmb7A6WY8MJxyQWSHuHg4BFFW0HW4AC9qZWPL2ZID+PeCEYuDPDASKdnYfLS3qH DMgMC IUCTynCJzJkvwBPYNtAn7PWTV3WO2VB8cPRDJ4CkH+DcMVYwPOBJ23ZPJbYHLqUdrtAPCwJxCYCzHCR7 RIIDw 9J15RVEWeBGF6GE6+YfSTYHugDuu8HMGiFFXAREGyHRgJAH8CTPlmYMsvBQriCSQLCNA5KYxjAr1OVXE gCi02 PY51ZK8eDbI5YjYVQRpzNCE7xA7cYREoFxJABfNHI4ZFILu0M80KTYEpTUI1OX5+DaJNWKj4GyG9SlDl IFRkC noJt30pLL09LYEkKtIKDkKWN8BiZFmpKZXPLTU0SYImBk3URSKdTeZrSWe2CWZxAIYdRN19GNw1PJS6L jIwOD BpBBq1DxN3XIIbVB6ILtzrBDwxGpbpDHOrKAQjZBBBJvUALrFWQ5WoGBzbSTPNAUM5AYRoBu8GERCfUc cuMjA 3JFQaLKAxYn4iOVd6JLCaWH51IsCjDQS0CU00RTMiGEKvTrdhYSXgDsWMLaERB3AmECuhECRONMK8QPh gPj5C VJGhAhB0LwJ9OORuNRQrDlfcSOAqUkQCWcIZW8VtNQoeFESZTYV7WPagMb5YTELwSqPoJzkkXEDnFQCV KCApV GyHLG5FXIyfDGD0RV4LN1aXUUE3KES+UrPZSoTCWU2rDvTfYMIVNLupAOxNrkhLTAWtGc5QYUh1T20JF UQgND YzID4+BeEVUTq8OfP2RISjOTBwBwutNDVuZjQLDiJSR6NxWOqdURUUHON5NzJsQt8WALFcFvjpMmA2BE AgVGQ VSXRjXIsXUN9XXEcxNFQ5UM9EN9wQJFN1QaU+PnYQMjPNDO00PwnjGKLSRSnjLNyGocpZWVSrDo8MTIl 8L01D KBKlGSR6BY5+JyCIIVp6HmY9TdUmACCnTcyuWGVjHbDBVeBIK3NkYBshQNIGHNI8MbInKx6ETCNpOoNy MDkxI LBqYSYPYCFqPClOMC8MZYowAYZ4UA9MG6sSAJB0XJF+UeYBWvXXI0WZOkUzKZMqRqCzOsYdFDCqBUEmB S4yND D2BWI9RkrtMDkbXPQ9GcI5UHJgZP2RNLWtNLrXBT7LSZrgOEI1ES9PJ8fDQTS1PbX+VvGBIiZJIN8qAU EgIHN rqpdiAZQdAQIhSDVSNZ5xZiEhFDgrJd5hFLv1XYKfIUJ0OtXoAJSiXVycZfGeAfRrHezsZKKnBFAVrYz bKERp i2ItvDByOE1dISrvLs12BSX1TK3fOgilIUMYIyseHCQuTGQIITfICUvuAyCyKQLJICyyZKikMZCOYclA RUQpL GvdDJGXSuqmHbLuYJ2MUQLXBKRASD3rOGwpMKNZPS1rZFyuA3yUPJieMQMiDWFSFPCSBD0WZfPyFGyhD CAvKS 8cKglcKMi1SL9xBMycGAZPDQSLFYqxWuAtXJOZZPtuNKefEKTBGT46RwwaS8AIAGfhZIwVYI0ZOGpkGG A8PC9 HZ4vYBXG8HkX+MgITKdHPZKTbSM08AXogVFGKJwtGRx6JFDYXKC85OjzqGP5WUTfiAWXhBC1eUDV5IPX NNzYp HYE7YPBJVmwuPlNvZFAFGM4MYR43WJzfZCLWWVMBYnfcTcKwAKbGJO98FrovI7MNSN7pRDqfX3UNA9PF KS0zN tsbT2KMEKTlYJriENMAJnwGCA80YPngP62PRIupHAUjAKTkGQL8CYNRALdsJoBfEXAfKJ5THfbBIVWfB i9QID d4E40VMXWgCEvnHV4+LkQODAaaEMWtD71LC9QQJNVhWLPbLnQhAPucIM96DVj6QTPcTNN0Yge0DxidRZ cuMjA 5UQKhMOIwMSX0LKHDcGppTSI3GyLpEK6qZQEtBDgtWUvMNZ4AYVxiEWZ3TY3UC7yFYIG3DsV+PkJEQyA KNy4y KRl2GDScSEK5FkDtZVBsETX5GgO3VoRaEFB1MuO8QYSnUA4QXRMaYKrVFQ6TASsyGYG5BH1JA8nXDSR5 NSA+P oUHXaEBJBDdFWO9JSHnVPUJLPPzGTeZDI5NVDswANO3WK1OR7vSKRB7LkP+TeAQYtUFOR6hCaVnNOKIF AooIC yFqkeZJCReEb1GUOf5H81LAJCoROg4UJ9+HtUCVUw9JvN7FrYiNYUuXhhjFGWrKcVYLjDWX9ItFVnoEN NJRCA 6JPStUf1GPFRwUcPqZKnbISZvNCCIAOXcXSaFQY1ZHTxsDAE1VU5NU3yCVSE3XoD+AuMNVxPLPQ20HcQ gMCBU OXroBWeWaccLLITkVc4MEUz9D87CCESrATm6PR0+CyKKTOf7UmrsQfCpGCNtZicmVKCwDrXJOsBUT4Qe PDwvT ISYCLZ4THrnRm2LECOuVyRhQFgtNKYoAZPZQKZqYJfLUP2FBApmRKH8BK5HM3kWVIE1PYF+PkJEQyAKN C4wOT DmDLJGWBvbOIwZpbkPVYPlJs2ZFRf8J04EYRYgQZWbXZ4+TvJKALzjJSSyXUYqPKWHMH4iVBG9ZDUsED A1LjI 5GoJsHXBaDhLaVnRmZMpiRMH5AtCSfDybEFiQideYXWAtCo0WMNm0Y50UABIgNRT9XB7+QkRDIAowLjI 1MSAg t4KfCm9ERUZvPQSZZuscLbOhPpEDauA0YmWsYMGoTSQvWNtcWoH1LFJ3TJ09ByT6AGV3RE37IFMrAGJe ClsoR TpqnIV8U9mfFUN0FTPUq9ZtpxczWMA1HJCCZ2HDSX06SMbyN3CVTOEQLE2tNfggQL2LZS5yAHkvWRDLC VNFRC odNmZdRD3VKL13JuxbHKDNWLyKFSYaDOS0QBIAGBRzVMX1VMJAUSEIQX93OVzfUJ0KBmNHMFXWOCbqKC EoIC8 kLAW2NLNTItHsOAV0LJWSBDWDA7MUKR80YvukPW2KDG3rAMfiQZ7wJGmmUPXPAW4BIS7YOudLIRLqDh0 QIDw8 C41FJWKiLFO9CA4+KxKRRJfDKghdARKQG2AHHTDcSYnyHJFVPruVZQ56ZOgjRpvsVtCzLO04PbkkFOzy IE9OK F64JdxpQ9MOAvKuOSkrKRZFLKOTM0OGBL78QswgZ7IhUPmfBTINYA3nWCQ3TNRTWA8FMXkfUYK9XRCOT EhFUi ldWYMeDHDXRXVeZSO0FHLIHncPWL66PQqbYHsnFoQsMLYLUQ93BctrADOsGRGJExHQPuYGW1UeXJotDX NJRCA 2EFbqVi8DBBKlSnQrBXRtzkiaLAZmJUCuDNYKAAIVrjU4Nww6DwupMEBxSOJcISw8RABwGn6lKQv0CTY zNS43 CDQAiFixINB2AcS2VY0lWLFvLZdrFAyRFL5OWAajGSN8DT6PL1pCZFCrAHP+VtCHYrAFYq1uGAu2TGIu MCA3L sCbACIrJKX0GhD4YiTlUYL4DeD0NIwcFW3PSNCfRTlDOS6MEMsbVZU9DJ7OR1zZAQNzVuA+PkJEQyAKM TQuND I6SGEiYHTINNWaPInTYI6CYFnjOON4CP7VL3fUQWHaWRT+GeZGWsUNQE3mYfSwTITHYXgkJUcVlriONS MgCi9 JLQs1Y50ZSOAtTCB6LB8+DbEMHJx1AeQ8LcLxTIToAofmKQElQnXLRbUKH1XtMUdmYZSXYBY4KDbdTv7 CREMg WfJgRYqdXRWtMAXCXXIkHOcPPO0ZCOphCVK1IK1BI6iLEZPePDI+OlTTZeQJHW17OsGhFWNFQNbgFWqR agpFT HKiNj2BXSm6R40AEUSjNPYmKF1+YfZEBDi8NhmeGgCnZPTeZcyoONKpWwGMQqJPG2YoEUcsBNOOUQB8L jUgPj 3WFOXxLpYfBHdaEXUlIBFYEKIdJErSPC8NZMrhWPX2GJ5QR2aVVUIvFjC+CeJHRfVVNA6yORWkQPTNOT ooICl MuewCREZwWu2CVBv6Y13POWBpQTJaFE7+KwXBGXljKZSmTJKhMEXETL8wGHZ6BMBuDGH0LsN6KkPrOCn uMjA4 OOHuTrocVDCePJCBrMoxIPYmf8Szy34elwLqAB24MXmsPM7ZSbsQEREfPz0NSFw6R20BKBUfKXTaGN2+ QkRDI AnxLgR9KSBmr8DuTy3VAHAfROQCThg3ExPoPJAfISYfURegSsX8BJU5SA64OwL2DUVfTC75LoB5JIIsA lsoQW Y1gL3jPgtsYvIcPJngVDeAXE1NURfuTLL1TG8SS9nHTREoVHM+DsTFTqRCR9OOCTGgBLHpFjHjIAP8UH RjIC0 vAxDjFdUSfyF3PwqvGRIfNJBjCnmqZEoMlazZVNUoKg2MNBw8Y96VTYXfHUE0WY0+QkRDIAovVFQwIDE gVGYK VVOURtKzSqWnAxYLwxSiRmN0DhSaZHEyGahgLOGdIo1bpWAjSC73OAszRje2CH2hFVtlEW0SWdrRPKQx Ci9QI Fv6F64LFILyTEE2YU9+QlKSFTfgGVByKRMrOHZNYqzVw9AxIO07VPmtUKXNc8ydRP8zUekzLW1AWdoGJ UMgCi 3VFGn5B98ILIRzDZShPE2+KiDAMBihAJLgKDZeYGWLBgnFw8pbAG56WYepJAGkLx8zeEufZhfrXUR7BN ApXVR IEnTVIpJFC1HhFBvcLMWSCMA7ABGwBn5CXSXcQo1IMOBvCLWUChmdMWU7LRwtHD2VVV9bMHwkBM0kWkx QYXJh gZCvmFIhRH90BCbxPG4SPlpASHZtZw3LJMx6S83WFKZdKQV4KX2+QkRDIAovVFQwIDEgVGYKMzUuNDU1 IDAgV HSDOdsZm59mnDgrJTOhn51aGuuoFPRiYYvkLDvKML6LKZnhRVB8ZE4LS6hAMID9FpJ+JjDXXuLRF2HJB SAxIF VaNmpaGKgsLZWhGBCUDyeUh59dZpdaTMPzVPpaIHeRVD4VRCrjAOX8SL5PG8rYURP3IXC+PkJEQyAKL1 RUMCA jTPLvNlUdMLL4LDI3FULgXqS4XVZzWOTSMpuOlM4bZUR3AMHZHPIbg76qKVfiPCKTYuPKJkXRE8XcUHg vTUNJ OBV2SKLeCt8RTNFpDo7NHWWqIRJOKnyqFUF4UH44NH29HBLbQNFlRFC4RIZtHrycCI0ucWFvR4AwOfvg OTEoI WxkDLhFAX5JRTkvJXZ2HL0IE3iCJLK0TzH+CsTYWdISB8NGDVYpUUZdVeQzVpU7LYJkROLEIunOyPPrp 3Jpem G3oD5bJwgzAJQmXNqvJNhJJD4OGIsaKUN8FB9EN5sBUVM6VBW+KbDUCjVWF9QYHFOzVTMeMxFhXAK9WA R3IDk eKMexKNYuLDXDVgwEsALpIHT8ZSGGyi34x4UkrT1fWBK3ZJTfMBFEBaLPRrJAM1BmWZmiPWXIJRL7YGG gPj5C KGUrYkbsPRzLufwJPKMvTj9HDTq2K00ETRZpLQA3XN2+FwRCRMfdOPUsM33DP3JXGIDqEYXvLcTsFGju NS44O Lu5MUQeXYZ4Dty2HiuuPPfwBjR8ZPFgZOIhMSN6PwAIoGtzLGD5QhS6YN7rGTLmZApbBOmVGG8FQNexS CA8PC 9TD0sNSAC4FQX+SzDUBaRBVf7kWCs6IRWsVGH7ItDgVCOuUIY1OuC1PeMlEJA6Mad3UGcpJP5XOVIfFS oKRU1 LQXzdUYP8QQ4AX3vPXWI2RXT+FpYKAmSLBKOnFSW4GYDqKRIMIYGdYVjOEA3AOZcqVIL3UB9BF6wELBX 2NiA+ JmUGCuAHKQ9gMvDvBGEQJVehZDmWxjwYJFVhLc9XBUp5R04NTIGvYVO7RF6+TgLHUHl0KaO8MuOkYGPm CiggK GHvJeZTZsSRK1IiNQwiKHSGLLT2PxTuHg3ISRVxRbSuXLkfNBBsNJCPRGZkNFfRGO7NXSzdERE8KH8HY 0lEID U3MiA+XiSHFhPFOD72LbPyMSWWMKstIAqZzxuLBKQqLo9VBYw2Q35FXCZpNEq2HP3+QvCSYAa6GsimEc AwIFR mVudnFNRkNaTWTwWFW5FmSWjaNSQTDLL0TcGaOa6MJDHnHzRbEIbmDPXpRKIOBISbSIzTVY5JHZyoQDT 8PC9N C8zTPZN2IAC+SsJPRdFGGS3qNEPbHLWHAThiKMuPvtyCOJGqGj5XAFk3R06QRPNhFXjqLR1+QkRDIAov VFQyI OErATKUIS5oYnKrXBzcPW3kJZL2KMPuSAC8OtH4LqQqOmEfCSJ3ZkFhWTvfUgJ3OsCXfOzyOBvnzDMzB XRlKS 0wKDguOGzFIW01CbghIN6IYerFDRSqVf8KLYr6A45UBKLlVHdpVE5+WxNHMXlsChX5PLNwb8QpAz1ZCN EgMSB KJvdfFnUwNwYTxzP6McBvLGMwMBRkRYwcQnF0LZB4SA54HfM4DACbSO5wVSI5KOHkCbxdMRFqoPJhFXV hbCkt YRIrFCjDBT72EippNRS9VC9inPUfKP71DDlxAkwkQGrkSULIc1OeOJ56IQejOQJRl7hlAX6xDhrcKm7w ZSktN KJfXKEmveXzbj4hdum0OG6wHyxuRR4MKS9uSLqcDC4bGwtQPMQnyTMnnVNtVW72VFwdTwsyKgQpIMR0z GVtcH BwWiyjHPQfXLLlHX66YjqkcM6gaUFpQXVnYfNmZtvvKNzfIGI3EV6RNmfGHCZsMx7XPXn9V18IMLPpKO g0ID4 +XoXQFHxTQvrhZLErTyAkKTSqSGmeVVZSHh7sULD9AADaFIrlLHrOCG8AZDwlRKK5OU2FG1gUJCG6SaG +PkJE GqRJEVJtz9FyNu3SRFQkENMQPpddSNR9GNXvPUm4RGPtUYDpRC83OZg3NEY9ZjCkCKWnNVTbUOHvSKIC bQpbK SC7PtD2RK5tTEJzJRgwPLpLUJ5HVTakSKW5JQ6DO7yRRML9OTI+CvSVSjQZMk8kEBb8IRXxBAT6ShIlK DUgMT Q3JeU5YaCuSSKwATI4TEWKuTteOJzShhyRBDOjZw3VEEz6C74TAVCcGLnbOS7+AvFECHaoSM03LACvIU BUZAo hAOcBigkHWZKyJc9GRIs5H38XSHVyFGu7DE2+MnCHWXo3KoT7UxTaHJPvZwpjYVXmZsLGFqKVW8XbDEg vTUNJ GKU2GWWeWa2DEJLrTzHqAxvtWXOdRHWAAWEuRDoOAN8RQRdoOGM7RK5RM3sPXLE4FAT+EoIWZvUOQM3u OTEgM CBBGDlmUFlAngoJYQUtFd0OBNl5H62ZXMJzAhUxPD7+QiFJSVb8FeZyAbPyFOZcIluiWFVcAsVBAqBDN 1AgPD lmQYXDMMX3NBSuHv5WHXChVjgoZmU2DZNuOKIOOSHtDNuLMC1PTEgpKDP8DV9UF4zWWNKrLTG+PkJEQy AKNS4 rYOWvDXXVLMvtISpHswtEWERcMv7TUXt9P39ESPDjIkK5ZO5+OuSJXSt6WzW2QCFuZLPnTctmSBYwIuJ NQyAK V2YjERqaAHZVDSI1LTfhXk3PGPSkAm0HCSMhRBGUPga8NjR4ItNvEOFkHNTeSjGyJSYqKs08GSD0WSa4 LjkwM hICnFxzUUzvuM9iZddfOXDhYLkjQApAWZ8LFPygQZZ2CQ0CF7zDMPFxOAE+XtOQNrKPLS2nNOUeLWQyx govVF HxUIGoPGHKWB3qIsVgVFrzPx4aFNi3CXOeAFJ6MqOnSWVhJSmqNpRsPjX0Th28FGCmXC6FLthJSGIhWJ 50KS0 4QdsofA9dt9IbnFy2NHXjEIP4OMV6fNViJH76ZPxvX04aeUCyTT5aVtmxClrrAQgpPHHAw2HfWR13HPf gTWND j2ofNF3qRgisLa6rIKnyTJXxRRCdcxFgmh4iltn2GX4jSstlCT9ZPS2oJLluXG2qTtlPXOQtpBMfjZIl KS05M FdxHhljHwTyIZAsrMYwvZGvrTepoztmQYA5JXYFo81gSzzvKHfVYF3PTLgnPXG6XJ3EE7qYBGYdZnB+P kJEQy YSBArHXykIoEPro9UzfjW1vU0hHfmmAQGeOTLeVLsmYCdtVMPcu0YgJ84pQkqbLLJvAQV1EfkgKMjiOH Jlc3B hdtYwYrxzMPTnXETkF5cxynrpMJ4cEFjzJWBHYI8kStxqAF1mBuplw8hyXCQdBVE7QUUusHLjpPQlJV0 3Mygg IRErTK1vGQfnxX5nJUxcGVTzp7gphaheOAYtYUOcG8grENN2ETYpRYmoAvojGTHjLBTuKQ0NFaiMVNJm Ci9QI Dk7M29LLDKmShU7OD9+KjXAIPycRSDdM89KZ6RBNQUfZVFuXaXtNHsvLQ60CPi4UFSxPPW9Eac6MnbcL TcuMj D4FTX6VK20DUL1JJKyTopwBAi5QZosZUImRYqeRY8HCzdZHYBmQu2TSZm1T42HMEPzDnK7KR2+QkRDIA o3LjI cEBDzEXYrXIkrZqY0HOAeNAHwSYo7PBS8LT0kZQYdOSOuFbaaODsuFQuxBPGuCDZQZcRANtBLY5CiXEm vTUNJ RCU0KpLbEm7KCMPxZcTsMJE3KPC5CDPpLfFpFbDcPCYxLudyZIJ6QK0eVIppGxrxDxSvRCi5MW37Zxju KV1US moOVOKvRg3SDFj3J16CRQGkBtEuJD1+EsVRAZpwDHJ3VHuuQUgwMBBmPKUQNNTxANbPrgnDRVKfDy5PY Dw8L0 0XQAGbNeX9BZ7+DxYUWZedUjWpEvXJizSkOtP2OSIiIKHoTgqvPJfbWsSyAKd8VB00GyfeNC2HSolKSX MgCi9 QHKf9Z89EKARrFuD7YS6+XeBHJUxqSJE5YMFqZgG0CSNnSLAVHsziOUhrAzIjVSwlOWbDPL0WZHtvMWR 8PC9N B8xEQZDwXZD+MxGIEnCOOA4qTrYhRGRXJZozXTwDjryPIMTgDl6WMYj4M75MCBUlQoPhJQ4+QkRDIAo3 LjU0N FFrBKZsTva2ZzNyQchBvbpDOWYrBh4ITWv3M11LYIDeNwNxCU4+EdOJEOy6MjG2FQFjEACrDdqpPMWnA kVNQy AGK5TnELhaLZVEEWA5HnUqEa6QTYJjJjCpJCclXFZfKVTDEJTkNVsUQR3KEGpNEVhtPMC1YG8ZU6vRSU YzNyA +KbDKKzSKqLrjEOG1HrZ0OXPtUqoeJDWnXjqymhrMHTsoHHRkDDIhEOYKCE3nMhHpXVcuGj3pKRy5PBD gMCA3 UlZrLIHtTKZxEgV9LVO1Um80GLayBVMoCcypWPabT6TzzEClQFH0HQTEy64ycR5iMH08HdskARdnNkAh IFB1b GFlOK8GCwxRGWpXIWYmWx9IYWb2W88TZJWzErG6VO0+JlUPZBsJOYsbKSTgBYHyMFAUOTXFnyU1EdLuX DUgMC YkWMfuIiI2VPLtMvOqZlu6DDC4Pq11JBhyPHHkVsnzESWsBmCWWnAAYpHRL3BsARnvKQOFTNS7STCfOt 5CREM vUvDOJz3UEIWvCOIURws8UmQkDBNqYTKxIQieQqD1PSBeKAEeGfVkKbL8Uf54YMhsZHLvEdeOkUOgSmm UagpF NDcLZPWuGo3GARz5V75BMSGpQpGnBI4+ZoXYMRaMTVxeLOZbQCUbUNYEUv0oDRd8HDGcKSX0ZiMtPDGe MjM5L wW2TCIcAgevGCq5VhZSmEeuALgaobGiGDxPSLEIGG9XQNgbBST1TH2QR3oUDOU8LEW+PkJEQyAKQlQKL 1RUMC GfWKZzCuwxWfW6XLQjIRDfYp0vHXx9YBE4MN03Cjg4KBG8MuV9QzBgOG8SFGNvZMlYJVRHXW6ZISglKV A8PC9 FS5sXLDD7BtW+WuVZKtTFIzQTK5WVVSLcCIQbJkupTmG3VNUyAKAqJm0sATd5VEVlNU4tDby8AWR7JgU 4NzIg ME6RLWBrMVbVJFUCYM1SKRipUWR6XZ4DD2wCJLX3EBI+YyFFBhBRAcCKR6RBFAKsXFVyYkhrApG1CCWd IDAgN p6zFKx3RRY3Sn0oVLsvWAD9EzB4HxGkUQ2OWohTe4NqMWirVSB8GDHnESYJTiFBAqJOFmFXN3ZmVTggY UNJRC Y9DDHvZv1EOYIlAtXZNj7GYJRvBUCFYue7FrPpQYQjNUAaIQmhUxW8DWG9OxVyNgSnOMM5Wa67NZozVB RtCig rVZHgUfVWKxHUWvZDM3TwNTijFLFUUFQ5RTUqId1JEDVgGfIPGz3QGBAuYIQNVpj7MlTuFRRhRXIlNKl uMjA4 PFO4UkXcRpWnDzA2Ah89NQgjTJSrZbnrTZZmNvAWCdONAqYDV4UfARobPRHKDGS7VOMkCg8HCCPbGdZV Ci9UV UVfTMZLLzs2OwJmYFFtXYAkTFtlEuZ1BMU7NIIjSZZcNAW4Zx73OEjrDFXxWsqdCUWsVuLNVtRUBkZWK QoKZW 4kf7PsRZQbWbQcWH0xagrfEDOus0JpLdn6L7SobyUxzzXrDhV7YAaqLXOSMEJzEMkuGQXCOBRkNSDFAW EzNDg eXTWKZVG9XYlfYIYJEW2Feg2rTi23OuDkVHJwCmMwHnUgFgPgUfvfVvArX2mtd6PvELKjChCdBMPZH5z EIDEy UlEhDQPWU54nSXheFs27MnNxZBWdEuCzHtIkEzAyKkhmFsJnW8OxXYFqBQW0TWauEMWeOA14LMQcHtYw MCBSL 6Wrk722scDuyce3Q1RenK6xK9HsK6N9DD4DNuHgFTE7DUTiPWV+Nc8Gl860CIzmGGZdYPEvJWrlSJPQB 1RUMS SnHeG1ALVwNs7ROIAgGSK7QmVoHQRpHDMmEOH3PZAyNd3+S1Hnh8PKXXSbE4QELj3QJIy7JD4CfIGSK1 RhdGU mTSV5AKHsQGCwJP7zwvFsjOCwKyV2YLAyWi3+P8ZczRS1NQAgR5G4ssRptYNsqmMeoILlBKUlDCnpXW2 QYWdl T9PyTrXhCk7+LeAgVQ4ltva6BZFdk3GfQbm9K7ddsdn2dLK5LITsUt2bnEKiRA7QQ4WFJXClogZyOMTo Y24KM AAxZvBkQXxiLjk9CXM9Ep06RyrjcyQQHpgtDRTvQ87ZRFUoIoAbQPg7RR59UcLuJsW3AMT5IqB7WNAuR mYKMT IkGfQpCWb5KT38FdRvOcO3RTYlSw12QbUmldKXLdrtKY3pTEVkCqLqQyV5NqAnJsJ3TIXnRqQtPdM1YA JlCmY PEGSdVsHlUPqqXO47IzcvAV70NNQyDEezBUM2WOHwZxTRXPVoHkXjQFueEu02TglsLD21WIZrVQbgIaU 4IHJl RlMTJBWyNbUkIBE8Tp37YZNtYgKyBNItPBNjRaB4JJZiNkEWONYlNsMwLGguKw12SxEzQaX0RLNpPHNi NzYyI UInMiVRUImsAgQfDOF7Oq57ICEhGZPyItZzKcIcHK01TSAkjkWQVgxzNT6vQCYaHzPyRaA1AlHiVt7eY SAtMC 81XUXhylJNMey3Gw8lUBLjQzYcYsY6BjC1OcSyTHQuAC0tOhL6SIKnCXawAhY7JtL0ThU8AMByNcGpOR MyLjE fPU5gTnH6YOKcQRnpQcM3XsK8RtR4THXaBhZdKFKsIU37UThoXNOsZfB0EIIwGiXYBPA0PcY9TuM7NSK uMjUy YEZ6FxG9VQPmTX99LEFeilSVLrleCGKaVOF4CRw4VP7wYPYdJCBdFBN3HR1yPcY7BFWgGXxuOpMlGY1f NSA3N XYmIrTpUXR1RzisPxMxYT76GPCfvrDCDnpaXdVqXIQtNNp8DH9rJTIdKhJiInl4IF5wKkZ8JKKrOOmuL jI5OS 81TZE8QUStToHtRCOwLnU5CMZlQI35CYDqroBCLcggOsAaLCUtZrGmEiW8DzZzFTLrARj3QD8qHbO2AR ByZQp cDwTbJr14SHTcHlMlToY7KlBlHQ66OBTwXMUiXcJ9YJEbPqEPBVD1GhGtOkF0RZWlXqJcOJN2NamgWNU tMC42 AXXlfiOREon3NZziVuSwSmUwCpI5GpF1OyA6QSEnFG56KUUnyfXTIkjnGQ6aVGOxGtWzBkjfNNRpRy4u MSAtM Q68VWRfgbZUKfx9Lb6nOAYeTcEeYljoKJD6MkYvWWGlQZ2cEmS3ANNhFQhiWmR9YtA3XcM6ORFvDbN6J DMyLj NeGL8sRkB7FONwHSrcIdY7LaK2GjQ7MGHzVoD8AHDrNZ61OAbzADEuJgC8ENKoHmYLNUZ2XsQ3MpW7VD MuNzI 9WAQ2PyA4LBQeSQ12OQXtmcKZGilrTJMrNMU1EMtiQd61HrxmPYQjGCR9SF0dJyU7CMYwQWodVuRkEP1 wNSA3 SQLmQjX2YJM9AtnjWnGuLS45XOFyjzTLGvlcVgKiZNViPCnrFr34EwzqQtHuHlk5RV0yIcF1AHDkCZnu CjI5O K54BCV9GDSzIrR5HAGmNdX2FKHdMK28GWTbjmUGRnjbVrQfZLHsRhQmRdidWJPrAJEhBXu2LT5xDmI1G SByZQ pbZoCsGt84GTRzRtYmFyyvOJJxHW14ILZiOEZrJnP9CKTsQhRCHHI4EtMaQeL0ZQLnQwS5EWD1JfylCM AtMC4 7VQMpmuWYVqj9UZqbGpKwXwLkPqtnQXB9HiT9LYWkWP49CYLixtIMNgiPLBxoNYF0BU2CM9qRVWFiZd2 CREMg Al6TKFFqNQQESds1KwGbFCMyNWUaWQryNwT2DEJaJV11AvV2GWDdAL39RtJeTMMyFlciZOMbChQMLqBG L1AgP DwvTUNJRCAzID4+NyFMPXihYnIhQsLHdtKnJaK8ITTpIN7bUeVeKAGFCnnOB3AdfWbzMLP2MGYVc7DuQ iktOT DfXBtbXXsBBF6GBTmeGKT7MA4BO2rYOMpzZx8YHGUhPz8TBGTjNVKTUqaqQP0aUNArHRTHZDsjDSAoGK N0cm9 qvUKjdOn0ZS15BPbaL1znwyXsLT8nSxzin12qQXanOADsAw6pPL7dKWF0FR43QVddKFN9YPN8PHRqUKP 4KCBF N4QsWGNLKnYZJzBOR3PdKBxmXYASSGCuXOW+XaCMVsETD9MVPJAwHFKxWpHbUGyfFXXtZcreMzDvGO3d NzMgV DDUPBLiIRbKFU2ONFnxGJC8MT4HU7kXCTToOG2+TaWSQUyuIL4tIpA9NxLCHRloQKiSkszNHLWsFm7SU Dw8L0 9LWQLmZAQcBl0PAILnQzEbPTVhGnwgORVNNhdtFJOdOuVIIyPWQ5YlBSeuVUEHONMiCRJ+PkJEQyAKMC 4wMzY jBYscOo0cRtDbZONuTbfyNHKiEbydENS2iAG5BIflUnHtHK3byCh2TjbzHoAcNEfxKDyXJT1GJTgkGCl 2IDw8 P95UUVRqZgEcHp3AUPNpWnXeLVtuHVKwXtK7UAXaABLHHA4uF57qB90xC04dL64cY51eT37qR49gH96j X19fX 30rA61dI30mX53lZ03sJ58qFPpOJV9RCUzuSJR7QZ1UK6tBGIR4HJ0+IwQBSQbeSMJlGqF5ZK4lVmH1P yBUZA mvNQzMpiqUTRAeMe1PDVw9B83LGPEtYtaxAz9KVZWbMpDpPYAwQriiPGMTRvkcKSByEfLAArXRG8WdLF wvTUN JRCAzMSA+RoTIJeYWKZmCCUHcMZuETS9NJVibTTO7KE7EV7lJPKV9JH3+QkRDIAowLjAzNiBUdyBUKgp bKEtu v9afpS6jCYumEEQvBP9yhUZiBFs6NT2uHEhkVZ7JRcfCYMJbUz3LXTp8L80BHKNuPedrOu7IIIVcDm7E VDEgM FTXOrvfHq53DdtoZDWSMDuzKIBvBSF6df2boITyyDr1VM26UMklW4ajkiRqVR3vBladt42kOBuvUUVoS i8yMi 7tTOQ3KY35LLzqLAR8AWh6OHPhAUY8ZZOVG7LwIBVGYeFIRuPWTQROD2PjCJkxMETRNNH7SgP+PkJEQy AKcQo pPPL7SxG0UQBvUvrgETIwZknjbioZCMohWXAgAMErZFRYZMHLgiV1WqXwBILrQGNgTIibQkB6RTBzBBD uNzEw ORR0WFehEklpGnXZgHhiG5sqEDuSCHTOIU8LXCdxSLK7BD9ZH1jWAXH6LE6+QkRDIApCVAovVFQyIDEg VGYKN g7yZMy4IRSzXGR7LsQnQMToYvEbImF4NbFwGxO4Pye4EDdfTT0HVexXpGGrGB81PWyoDI2QWzqVJLjZF UMgCl FOXyJOR2OmVTpbIVHSOZF3QFT+GmSWVaFZM0HFJdJfFLUtDgLnLItbCC0fAYK7DQYyTNS3TdI3QwXoVG QuNzM hKwG9BUQiKrK0FDXZsJzdUKmUkanFSSYhPx9JVOn8U39BKFDjGuQuRh7HMJEcNqFfMrGmZAIbD71FJ6G UMCAx BRYcYvQtFKR6HHL3JIsnFmB3GQLlTPNyLg1iEQd0DPP5EdG7PuWkFqErFaRkLvMdFW5RIfnPfVZkaEum OTEoI RZpC03tZmevWyVkIIXcOW2SDxkFEMJgFo9QPXm2N69SILTwUmFjHr1FKIRxKmGyRSYfkuanRIEmLDSoZ GYKMC NXnlS5Xnz6FdtgLNMjYGHrXWj0QOYcQl9eFWb2THicXt7qXYobRXCsAzjqZFc5KSdqHIQfWTmnBC5IBn pFTUM xXs6IHZs2K96CLZYaNgKgBm6DYVDbXjknXpN7EVNuHSDlOn8pVWq8SFXxYP8wQKz7QXneUU0cDUP9SYD tClso GYoiMXdlIVNpQNBPMpMDLjTBX6ZmNTfcBRAXQMN0WBL+DmYNAlUGWK8qBeWoTEaxQJYfLoG8QYKuSYOO WygxN XUcDYG2IEKpEI4nYfqsWESoSFatVJOiEFKWWjCFAdAHB7PdCMkiICHESUA3RXL+IbFHRzEPLJOIkrA9Y jE4Mi EmNVOvBthfNWOuZQiBHR8STCzzNQU6HK6GT5mKDHniSM5+SaSTGIppXjNaJlYKksYsLqE8JCDiMMYbAe soWSk rFsYcTKo5XQ80NngpJS2ABouMDYKdRt3JVJr9Y42TPYItZhJsCx1HTSJkQfXuMOdcOI62GrzhXMVJFQu bKDE3 MS51HidhVR6XGjyYKEPeHm5WMJz9D70HKMMuRmejZe0ABDOhWlqpYrygCAKoBCXXDFMdFIqMHO5BJKsz UCA8P A3UF7bPGPe0NV7+NrNQTGz3EhsdCbSnDYHhHrdlUSZgVcDDRmVGA1GpNHxsLGEPHGQ5YRI+PkJEQyAKN S4xOD HfWUGLZBwwWUiUxutDOIXbUe2KNNa8Q15AKUMpDVYaTv1UOCTgAmOpCZeqZQCvOPMGWIRxIDmJMW3IWW ovUCA 7XC8QV0cYKKs6AZ6+UfJWZHtrMvNbZcIObsViPzPgDtJ2OH9dJlcdJZQNNLlfQURsFEA7sqdtAS7gFMc gTW9u wMQmawyeOuNtLW4xERA4HUBIbIcjCXmrEMtLNC5GQLcwDZK5QE5DE7gWYHg0JV1+ZlVTCSqbOFP9GZCz NzI3I E3uFenpLNTNVBouU9moRYxWWG5BUVpqNGI0XS3SZ5lNLQv2CF8+CcKYVItxDJKeZKMlQOXJFAHqYB19T DkgVG RYBVMgFKmATQ2QZIgmUOS6SX9BC8tNFXbgFD1+AmTCXJclAIRtHXHhZPOYJz78JOPlTZCJKJpuRVA1cw 4pVGo KEN0TWJrcPIO0MU0BN2dOSNhtCS3+ErEHREcrIL3oHtsfSEAOZLjlIZK5RxAlDTO4SBVoWVKFOsWOCeM KL1Ag IZhaLWMUXCZ2QPR+BwLNCjTKSSUtFjN9UBGvYAB0RZHjOfubPGEyRsWFRgUHY4QbKXfnGGXEXML7HrZ+ PkJEQ nGGNO8jVEQiLHTKNDjoMHiIkxzEQVZiCh7BFUb0N27SNJEsUDckQk3ENNJrCoNgEDF3ZAAiEKAARbzCv 3JtYW dzRCP1XYJhVDJBLjCHEqQTR9HcCUjzFIMKEVLlQKNfFy9ATPJcBcDjIfK5MOAcLGRoJjwmGAVjHsNAZo AKL1A xWFreZCYRIEUyLIRoYh0ALAWyEbZkDcetFPPkWLNEIVPlAPmKZD3PXOhsJJX4RR0JQ1mOMUMbFFP+PkJ EQyAK GD7oHQTvEBDPOAimFZqWyspRFHHjGb7QKVl9D44GUJNkPWJ1YN9+UrBHSBoiCUCzGEKqMUPHGO1dCEA8 IDAgM NS5NsW6PzIuQISiYnSkSoW3VGOkWvq4DeGUcXjiBIyDryyTVUJeLr4DABe8M19QDDUySLVdUF0+QkRDI AowLj S7IRCer6BtNh1QCBCdKVMUWlnuOmNzYqDYupL6VqNnFFDrNCVyFXxpHpA3BOL7RK01RaC4ZGcqUN87HV QzIFR nEbeoHwy7LKwkMFwaNQKEmQtyif7aKGA5BGJkRVmvAPlHVE6EEEdfWBY0OJ2EV6qUCSYkCbE+PkJEQyA KMCAg a8EeXy0IZFLnPSGVNbzaGQF9PYVmZQc0IDXuOPQkGJ54XBz1TNK3SbNwXAGtJhG0YcG5DTkmKF8JTiuv OTowM FndPKSfHOTtPCTBHaPCRgOVE5MbACcrNSCMBBJzSTXpAg9QIIFdLvstXaU6UHFuIBMoUr2uIYj4MBAnX S42Nz JaMYroCh81EdF0MJKhXrvmJJDrApIOIgVFS9XdPUarUPKRWVXfXIqpZw9UQMIoAmX9JnL5AOTcIXWvZg ggKVR aUoGDZgCJZ6WrIOxeXLTMSSIbWdXcWb7OGRBmGpDvNvqqSVVjHDXKOBJzPIvQPP8XNUvbAGB3ZI8UW2e EIDEy Annabelle+FiATKtWMAI2bQyTvEOWVOXiyEHuGvnzCPYRlZo2MKAa2A83RPPLdLED8NW6+VkMQCXj0ElG7ALAi IFRkC asrXNNsEyRSSbQJF5MjXDhpYFFIHKKrLpTqIf3LWIUnSeghMrD1BGIsUHZUKLHkEQaLYO3VTXngTSN2Y C9NQ0 lEIDEyOCA+DoQMNeEXEK87YmsxMPDINFdaDJdEwneJUENmRy6ILMz0T69PBWOrRCKtNT5+SlQZGQl6Oy E4MiA sWMHaQtxqJMPbHrVMIoSTX9ReXJjdUGMVASIeAcPrLt9XMELsDlGtDHyeXAPzIYRAJZFeZQlRHJ0CJUr vUCA8 KC2BI1pSBBDkNCR+VbZTDtHRG0GRXtFuFTHiGwEwUQM9GSF0BDMoRvPwJANnMZUpJD5zMOA7RMI5Tfb3 MzggN sTfIaN7OgFkSO9YSemPi8LmOfhwIKdcJB8ckHhlmMrgPBqrEH6DEocMCEYvSm2TIEw0I65XSIHmSLJ5V D4+Qk IWEQkdPlV1ZLZlk3ZzLw2BLQMsFXEDPbmsDvUtEzYIyeQ3CwDbBKHgUEDsSMbzRtN7YVU7FL43YoI1FE cwMS4 aUffmAZGjAfgyCJrEUE2iXRwuCAxfccRwKJcuROMwSY43YG50NPsvGnoqFSwnYRFXg8FgMM46AUrcJBE Db3ks QV2hQqfsDn8yLLdhZGIzJFJkmwTomx5fcar7CQ2nMhnlOK0VNH2eGOnmWP2tGpiAOVSfbXMznHQrRH98 MSggd iqxTJ1bFNdzU7IcaHNjYFKiYX99JCcnPQ31XT88kPPfQQ35RAxbR9IiWOstRPUuSN29JJtzHh6zMrkvE EoKRU 3GAGatETR9EC0TU5oQDKGoGAF+AiQWQdYCNXyBDlhJlNcteansIYFdGTNvLT8PGkfEILLnHb7AXIx1M8 1DSUQ wPWR1JZ9+HjRPEEslYQMgL89XQ4JDStRhZILeTa39YkU0LYLfKS6tSvDkLWTRMvwVWVScs87fDDcfWIn oIEZh G4DtquXmCHoaMJBVNbLrG5VskwxkCKM9LPNFTOCjDescTPzBRC9KXOogJAs6YXu2Q31YSFOoEZN5FE9+ QkRDI NlwDOCtUXOyKJSCHUgoAKC5OKQpTMVCBNZNh24pPNWuWbQXJbZLR1IfZMueEARLNXLePOAvPa0LIUGuR i9UVD OcQVQDNcljYZdcTWR0UI9mVvstDCVCWRkzNSPbXE5pOI51BJvoPeWqjS0uwglyBzRfMLXsHmLowQtjBs ktNTQ tCVBdvvG5SB5MEotTLCFzYb0BlRCaPZtnZXLNMOVeXXBkDv9RHJHyMt7FHYNeWLWORapbRt59OOyfBAY UZAoo IL1crhFjFIsAUI5UADoyEHF0BA4LT6aYWQV1ZAF+NyRKCpIKS4WCAlJbMGOvLg7jLk74GOsmAFIqAOZ1 IFRkC mcxYKLqhzHoq6V9TMPse94dOJL6KJDIYNO9w7GzZB70KkthFGNvJCV5iL8dON23PBiwU0FbOHghPZYHV kVNQy ROR9UgcuF4OA8AS6tFYHN3VyX+YlREWwBDJ3DEXOCgTNCwOdZmXkO3NfWgOQFqDluzQe7sVKiPxlqMKZ MgCi9 XTPd8H25IZDYlHHNpMH3+RkUXOClqLAQbQJQfIWJBYYHbVzB3IaOzAV2cZoFgJJUTVloShJUkOIRxvOh tMTgo VCOoL5NqzjE7ED0TWesUOWKpOh5KlSToRWwlQWMAHYPdMzOfAp0LELDvDb1XUKZqCIYYVonrWM4dBeMd MCBUZ SwiXC3kjgHhSDxAQW3BRHdiTYA7KZ3OG1fOERV7VqM+QpRXRlRQQ5SRHtCrHJPeHv9qNG1oNbAgSHTtI jczIF ZrZqjpUZKvieezFCFxPBnoJmQqXSWtoI8kBT2wLtkcRnJbeY2qujwaPUWYVbMATiQIZ1KelgB2UU9OD0 lEIDE 2OCA+ApPYEbHBV8RGYGGtEZYtJsVlQvI7ZlZnAAVhHdsqWk0oVAcZmfeHUOKgQrHDNyahzlYkgCBnLH1 KZW5k b6IcOnNhOJEmKxwJWIlzI79bbQMaaPPmFOL4LBKfZUYhKKE5JKZhIKJnSsGnGRBoSQG6VVXuDZLqRKD1 MCAwI TVpP2Asn7NOy3ojTC7iYSYkWRU1EVJlHRJ6AOVoFR3uZ2OhzQIgVOZ1BYApQOVbLYDcXFG7MDIwHEJjS WVkaW LDu6lhSX1nEVQnFEK4KWItACP6VTGwQP8vBMidOT3fVBZ2MK7XJBVifsZlHCSeRCMxJTCzPwXdn7IyX5 VzPDw nX05fz0EAfYXiNXk7A0HUDFRhIyK2VQOcVw3SEaEtVRV8HXIhOBQmK4SwLGC5VPIyNg4+I2D8lDyVlWW 0ZTw8 D0nVZNBzKtWnCSSmIi2BNeQiFTQ3YEIgTPRsD9RnRCS3WvekGTOYKr6nNc7zvWe6M5LIXKGuYfV3AKMp Ui9UV NJuICzsLAQHVr0zPVCkS7XrmZskAXJGD6CvnWRqXX0xH3OAJ7muIZfcDI4lPT9mwrHxkPu7S5knVLQ7H DAgUi 2XeWBuWCX0ViNgRUXvWe3hWXV4JgWaOKODKw1+Ki7Bb1FkdJHxJU4NrKY6H2HWHLZuazOkBTHxP6S9kR UvUGF nMG7MWXGjR0I+YjvtyqRcXhkQLpMcLR4untm5YO2KAZ3lqVmiRXK0Iv8+c4GrJIYiSt1GQaNhQ7KeAPF gc2Nu McKoAZm4FE82OprqMJhlEim6PO87WZLeTTJ2OVSiTwOZIxRLF5IzJGebHHTTVEKlSZ0+IsHTSEovU0Xy IGNzI GRcSdV3ELBrXqD2IBHrJzLvOIKnmoykFEOtFPWyRMIGZK8oTGrvTQyxORAiNyDjYePxQKUoTSHnYmHeV iAxOD KtXfB2UUdqZA5pKBI6ZGZlKiwiGdQntNozaBzzMDhtOBFiT8WqvVOmG3WqVVCOGpYSEqCVL6VxKSbiAE NJRCA yID4+YrRQVBijQ2JkSPCqMLLiSBQhdyozWKUyTDWdNDUEMTBdUTT0FPX1SWyxPIUqTOFcTTOjQk82WzP 4IDEw WLzpGs03AUo5RVFbYhljKHeuFG19HlxaLZSeuXC7nQXbxPcqMescURleVS2yzRJhVW55LPksKMJju06z LTEwK AErBYg9pIrpPK3mMYeoUKRpepDxr4O3KQ95WVSfRTq2CUKvFPUtWVUqKBizHPFmwELhHIdpJqOlHAmjO GJ5KS 4lARchYXJvbLhxumrrDYLoHVpwGLHlL4vtqPB4AD82UGseJMBby44sCJNiUKLjSDg2pANlRDE4KGWyNE hkYXR mTJ2qJwujRXIvTF2zQC39IUynJFSwRNMrNTTcHCybZXOpCExjKHEuYIgcDCFqnJCgMUXbHHPbTClvkdT pY2F0 NMWwQDC3WPKzOHggmmToAYLzASPmKTx0xQrxGL2oSCvzPWZeOfKsdCojaByoAWNxOOYrNPdvxAFdxHCw ZWQpX VBOSeCVCgPIZ3JnEYlmANVUYHY2VV4+LhPEZZzoIF0pYaO4UwTKIBoqPVVpcjNwRW41AJoiVKMcl1Mcu mljZX GdKZU1OCFlVLdwrfovMDkfIBgmKKFno8tqfWUaX3WzDQP9FRAkCKz8nbfrWLAtCSlaLMEeADqlNOKgCU kxKHB mjDqekuPsNK9xBXnmDRFeDHhyZEP3NUUpBQwibIogKCE7lmTzSHF4IFCkWRxmkineUgdkBGtiAR8cpTk tMzMo URhpMWWrUY5rMgglLZMkCFJaCXA1DY6pRMyoOtKvCAouPO5lPE32XKfwBFMcAlmjBS5fcWJgOL07FZOp MShyZ MRqx59ujXUmaFw3zIlmWdWyUCuyYKPvghncQpYwODpmBNIzKVroIARyXVpjIKMtzqVlN4DeZQ5VPvfRF UMgCi 8PIBc5X36ZEEZnTiF+QzTNOyUSFRADluNjLV2fQcH1NwLGYKhhnlEkPZByHYQjBNYgVoRGSgILLCQVD6 ltZyA 7FS2NP2ePFBhmUq6UNSBrZrTOQ2uWORLgval7HCVoIsMzAXZ8WmFmDTOrIFU5QZ01UNF8UzX4SUVfBRH 4Mi45 Slp9Prk6UTSeEt3CkERvAF3AETnLPPHgWmAYSh8TBVt1Q96CKAPdCCUeMu6CQVQkMr0ZBCPdESWERoog MC4wM WyeBApeYt35QhN3UGXwIVN6Ele0MkwoPZEoCIK0PmfxQUKxSM4AGbzuTDZbEEexWWmAWQ5LIYmjYNR9U C9NQ0 lEIDEzID4+TdUDMWpkNM4fTmB0WwKLNRjrPROvwHZ7FO0wWfgnBWIzXBGnChYrPtAuPPpuILfbXLIpKT k6MTI 1QlwxJMY9QEQqFHEMHmGZKzYXY0XaJJjqFBHHOAEfFLE+LlJSTcXSZVhXMcwSDI4mYQ17FdchGQVsb1W pLTQx PIMvIVoAgTssELDkfjc2ER25ASleJUNbGV3iD2HhOW8bChekNL3RQjlIBYOaDi6LVPh0B99CDDFbTBiq Pj5CR FLjCjQbRFKkJMW3PWQFCvneIcCfy63nGB6sFSzrHZUuDi5rQI0bNByiSNDaz3iqglllZgriFBW0QTQsD VRKCk KQMyMZR1RwSLgvONIYOTDxWUN+VaANNjALFJSxTU9hXvyxQEXAQqlEDBczlByrukFcfHOcHDUuKTQeFH h0byk vXTBkSObpDXSxdQsvdrMaNLRjLHhkYH5lCG84BCneRKVoD6dzktF1w6R2GmyxUYGbHXgcLAODOX49Aea gKTEo XVMdKQZcVUVyLJdOIHDROBNcZRm1SLEeKHnHBTQFNlhdSDIcVWbkNOMQYG1zIJgbHT9KZheWTVVxVo5X IDw8L 25VCTGsXrSqXq7AGKXkVsJnBijaIQfkvcDvERAyFGYiXApVdD8hFGHsQLEtk4OxMQPpWJNpMRiApMffO XRvcn o0MJ50FExoPQ9GTxtLVABxTjSRWrvzujHxsROnKU6IOY0de8JlLkzoSWWmWlpCEAoaIOLiJ0LaAFLeDn 4+c3R yZWFtCv////7+/v39/fz8/Pv7+/r6+vn5+fj4+Pf39/o48lI90yP48LKs2/Mw0yVh7yFz8K/v7+7u7u3 t7ezs 7Ovr6+wc8kgd0ayz1Jqf2+je7iKg8aQp6STq3+Xc9rXi4l/s403y3a4h2dfs8Mjq98ju0uwN8NyK1csy JyQkJ JRuYNLcOO8eWl9gSTriEWafFtmqRjsEBOrNMZlNSdGRRhWTMTLLTDSALoSNYcGNMGHPXW3GFx9KUi9SQ QwMDA bFFymVMdhCJDxVQLsBCsSQCuAPUIKUZPVLKwBAGvOKDPEMWRzgopZlzFQkES3TIW7ze0OdXdpiMSFdRa oKPDw nESXlGK38KZVcNURhR0BfIGYaL9z7EOqyTq4KEBYaEB74HX1vNDAmRoeqD6XwZnOhSc0weCIHj5yrAND 2MCAt QfYlZDP3XdGjHVE8UJ3mBg4ueLCgtRgbjFkNZZNtEM7mHV3Ql809UzJnPB2BSUFoTF4uE5QhuxRPkADq dGNoL 13sry8ziS2Bn249V7DvA1r3CLTfYS2XwHRerCUZdoopDKDeX9S1CM8SSRtlU6A8dDYyBq9htGFab1Msd XB0b3 QgCKpbaXgnaAT1VPK+RjdllfEiWrpOBAWlZH8czps8HE8DsNVmBFOtB75vdB2oOM44ISkzC13uv8CBwJ FjZSA gGeVdFJIoWSPsa8WwFuNwZDIuDFSoVH9oRpftsBPvY7NzSGJpKNEmf1AjD3uyiMdowSWiJLLrFHDzV9P oIDc4 BZWdWeYgYF0CD2X5ZxQ0tBXxQW4hQ0MgKGkcDB5OQ8YzXPR8V7icLAKoVUctLr9+y0CeUNKnZtoM8Zdw U+Rubi Llh7cbKriLLO5Krdmr8ILlfzJqjWnYsy7Br5RL//z+RbvVGGBQtM9kP3W9Ckncm0BjNI6lHBUHWDTMRA ERERE RERERERERERERERERERERERERERERERERERERERERERERERERERERERERERERERERERERERERERERERE RERER LVBRNAOLCALWJNCYAOLCYJIQDZBCYAVSMAGAPAYWYCHQIGZBHJKOPQRHTMOSHKQ2i7/swFIjwKPVORPv nvkCz b4AdxCvo3sK4JY5HTpKoTUXCg2AuM0ZNH7+BE+Zv3rmIijiwyEkiDfK606XyvcHnUXQJsBErrQ7gQDmM 2HU4R R3oIgew9sYPsYZiPa5DO8ZBpvkoVejcTZjUvx3VKb+AgSdgtgmEReoXryqbbPBN5TN9YZ6FkMjSDFBZs /mlNP kGKI1pj+JYH6e+6/fFokRiMDVa3lBuUqdu7purbtQ7M+s6OKK+qLUC+xujIoCvZXFzfVHDA08IwcqBNp VBGOB 5xAeGYYpU0/VDDhvKz7QVbMdR1TF1MF5nIY8nrZK86vASrdkY/xmvq2VbVYaS2DM9sjltC995eKREvaz nOiRe qt3v04u7ov4nRgBVKCr+xATYFwzdQ4xmTw6nbc1PZAnH5Gwqxf9852sGtTUbxMjH7dKldXCNMHxdEYv6 SPSZM gy1/WbDCeJNYPGcBiRilkYEeQsnEq2GcajkpSNZUc8Ti7TVjumWVTlX30/hgtz8ERqD/9FxlEQHLWgZD PiWb8 FuBolYLHoOhtcBCYtgecCtvx2hOFR7XTzFx/nikFXSSMmXMTfIDPfMv21Uy0f6KlOGSnB4KcwJbs5Gdw qTzYP jTF/XXlj7R1nsZRaXuF1SQE/Mrv6uFuZzRIaAkTccRHy5FQeD9T5ysn2p8QN3qzsNTqPQhX/BlfYUlea hVUDN DltJlboiehCe8lDSow4YdhRUZE9L58VHRoSma+zGMKYEIherBbtcHpex95IhD1VvuAZEhA/hL31ptM41 FRtgm v96P9oXY42/W5pDPsxohylGGmKXfUzvei2TGveHrnnAlIdwahyKxlhO5sWQDVwEeOWLtfYGwbwUz8/rb u0wir wnu21o8oLyl3rSBbCZZefmo2s/FAYAFxy35Egm66M4Vs3xyAF+Xl+zmHIbuCuFSlPwDLI6uYMms5pQom ZoiA8 9K/MD2ZAQ2Qg4vVzrvFw0Jn/mRuJxBi53/O8Rmd2mQapC0+JFposB9qz5kjLH+/sCOd3jtdeiis1wqQF CupSN XWmvKeMl3XuznUdcKzgonXwLhpjsVJlF2reE7q+utK3qVzsuDNBBdAn439oS4DsvlfOEMzxnWmh2PM40 ycNl2 hl9IwcejA30fTPkmp9EprUm5gw1dy3TUvnGAwjvH6YRxyrt8nGaJMeEsG9tqMKrx5jUb+Zd7oqS6keIe p//j6 qv0+ERLNO+S+sNAoMk7FLmCESycIfM2hHLByNM8bpkeS9LC6yEj94QuJEcgRO8VTjvbRnhMRF8GGJwZI Xw8/Q L5s3h00q+oS01vuSyC8+TsmJJrVgkgF8nxKHJZWg1RbUV2Y20/XGzg44F63Ky0o4AxK0LSugLdGQSNkn UUNQY hJhiE8tzet4sGfL9k/C39LVY7/pnw69vU0IMNu4wLpo07Wx9HOS1t9Q8+6umZzOXpaTKXqM+GqBKegnM N0v4r F9GW5QeQ7z3Bs4rZrv9G3+i5Go4tWOPEaaerD//g3anAkyJPLpfQcLjg9/94840GTflBMZfSu5FRsybY ZLIlb cqIrtk6M6+UOun0MT5IXCR+kYQfsWxLnZ+5wl3YSv9qimThWrzYrmmD/oYInPnw+13z7hifbGuvdD7tx i/wKh N3uAvlHqaGdHfyCl4JZKaIxlq27Pie2hGpnQFWC7yx4bkPhi1PfeLXd498659asn6DTdRqq1pKzDRXCd aiBuM 7dODNH1YpLISbGLLE+yBPl+2jgzpijfqWUYRIpSInGGivwcSC9EmB44bUvAfPTCKbViQYu9tNQRlyhRW Kqjkb m98G59MEkipBMZPxaU+W5Umtmgpttpv4TrXjboMZ9BJpdVrjvZ2jQsDAWUwp/WGExdc661WH8FyPYle3 5C7oC 0sKvj3Srd3FEHknnR2jvBcbp2FUjBcqAkzlY5HlYgiN3HUav4Dth2YSzJC62F2Z4Fe+19IkgGqK4546w yZXf9 6L/9V68Vimuc3kt290K33edXWehsHTY7kswgypVjpOOaLJ/UAGk6Yq700tq0i+bl62K48NlWkxLv3XA6 cfupg qQddW91wpfgZfoI/KYhnqaP3DkYdl/+6PT4ixsj0B6EcP7meI5BxDvbcKUAEQ0Zsrem7me+j+IzW7ceO HsOx1 TFvgXUWM4BiNU7FA/oES8eTg8k2gKN4vuVV9ErFoaPHhk7ylp+wZqbu1m92s4HQup8qSks/nL9Qztq7z s9SRt 2v3OPuGcRHHDhptUs+zfGLXerZ/hPwWt91rpqnPGe24YM+V8dTMrxC8WnisKGE07O5qj5TuzfKj3edk6 zrWOf tEEwu7D8bQdBHJ+8tN8E94SF8vtC9qS/fTHQyfW/tYDumJ4z72x7qvBwRFn9WcZco4++YbvbiWI4xT/N 5fkUl V7J+oC9JJ0Pwjt5pnI8Ud3+devn48yFrJyP4CwOKqZ3Ovr2Y46BLolZU0S7ZE8S4D/PM7Cwg4K/aGumY VMMda a1t5AKiGxiy3kp5YfvNzXRgHHUOtsUBXeQBbxFL2npXXvpHnD7obCNlZFFcFvKXA4L9Kb8M0umAsHxaY n3oaD MtNM/QkX5N1hei9klq6LqOFQu/aoivNlZSLkc1PGk8lDW/sl+lXW1kV/C+oIzonF87M9+Ql7iflweRWE YGhHZ 16/7/I1D3W0VZxI1CmUIyV7BFIXq1hg+dkzQdMS7ZbNbvlML7geS1wTI2el9h5ytLzMz2ilfrMRWCWZH lO/Qv SRHJ8EH/2WCxcIlJzQV0HhgWKoPWGZFWmqqEGtznqPjMrz5syO9aZCJirGLmCSD3cg3cN/GVpQSWsCkX /+/0+ rhcSuuAC9Wo9p7u4KmGi0cbIRN71EBt3gBPXdD5vNJNqxo2ZCTXpoKz+D6RAeYBDQWmzsKrpqIrm/bVr lBFfF kn/FcQPZsKQw6Y+8jVzVYYqvUCLE3YMg4WB+5L4xUsh6QHI7vLZQ5whGSwKzr1ZlsHpIFrJBkbJY14rV Fu/Fv HjgnXvVwB2aFy78lgqvoozOsb0OF/a0t4ZFDFG8TRgsnz6F0KIcRR8IOiT4nuepQOAXQEo3zDzh8pEOq KNepE NUGHwLcBrtAyEm7KF7qt8CX/pPI1bplGMQOB/tdkg5/zkqe/9Y4g3hX7eXnYYaAvJG9uLc5fVBbXVdRS Uhoc/ ylm2ANY9Sg71iVjkFXU/rxi9TZ22pc4PbMn0F2q1wN5+g9Cmfe9JzJqPk/0yjl9QlRQezVUpqQM8joXw 7rfs2 2GY9ZFDuMNDuxJD44BqrOHONsGY5zV5i8GtPGXVeNRlyjtgqErdK94oIr9yC9i2uIH9srfGxlDUGtPJ5 ayHWK FbfS88239gJn08uJgjsue9zeEEDfAK8/nZDDu+bjuaG17sE6bFGwk8D/L1MKjmtHdlN+rbDx0ckQK6AT TPS/w zh1s46KbjXBZiNi1TjGQqsLU2tw8emkhnZl6gvPFpdbM9PPOh2ofUX41OOa23I8KXxQBvs2qGAloUpW2 ilQBJ n6t+EbuNo7/NLCNYguLxq7RmQWWG2g3Roqhl0UAmI9IE0ED2T8EMiFcLaIgE5NBgZNIQUDSU/NkMryPf qegdK Htlxef1Z2LoFWN4XXM+E8tb590PQdDoHPZw8hkn8sW1lWroojM8/vU1xrcUl1jPsLyyRJ84KfRzm8hjh 7OVjs 4c/PnWPffOm9g+O+TfnDe5EkObbna7pEXtzFv1aevUos/vn6FITrnpRhQicCLvj1t0IbKbpj5ccMpPTa lgCWi 3C+SfJMvdbT3rOQg1Vtjtdw4j6znvbg06qiD8i0hazUBTfzLIH3hNiPgpq3ev7YA+a73UbH3tUwOp9r4 dOOs6 KfP2bCapO7ftqMkB3X1wDaQuPiZsY8pLezX5h91kvQ6qW0U/o9PGIgDmFBNZZDItPBNtmbf6zlc6EbSe SiQwv ujCPCfDh+BS3ENtDav4ZVRxviX15eRPJCfvoxTwB6OiIm8t0ntnBYAvwEbqEagBloStMFmUBccH0XUjO RSks3 ezHOHyLwCSXPmopbwu8Av+CCQBZb5PCRw+UQVdUXFrjkvZRE2Dmotm1EPMwH+tVgzfrA1iP855foW1Su uhogu RJ5CJ7WlLTOhtxpkKdo9DSv/JH9XvLPOUYaxnUXwiL5KadVnj0cu9uUfsHR6FsuKbFH7faE67Q8W8ME0 GBwz8 PlAGfaB6UK/DJLrxRnlao9v82Z289s2sgDqg+Vy7qjersmsAwEls3Z/7bVgXBJEkc1q4KVd8Qh2gK1Ir EWFqR 2zo2bh9K+ZEnAoc5OBpgyq/Wdp9loDQ/jC8/BU3xLTf6lOS6UCq2cbFiS203DtmfKC6Picdb1pwmtNy1 1CiIe myay5eJb8RPvSfuVWfWC9eEVVaC8lj62QCsYqcxfkI6DwulByuckl+pNOt9mNWFJjbELrzggsuxVqKlc pQdn2 M4+SrC6SsXD/eDheLsvJJ+Yv/XQk4YSMv5kbeQnHHdpRajNwd15p35j6qn4zwc3FwFopEti2CdZxJviK jUWgC ipP0afaTZ+29LZFKIXdjqEs8or8PQxG0MUxvqR4pts7HekxzaYY6HzE92WiAzp3Os/pV2h21SkSyZ7AU JeQWv 0QPe9McPGNACH3zMIWisrZtIkAFqkCtQcHe9+0IvH86oKSKixjFsMAZsAPUYTJSdT+9IO4IgOUHwIVpe Ek3k/ m7ERJw/vgMpXU8zDCITG5VlvOXwl0HswnzkKgmsZtook+gb9E8opj0hXcGNGOZDDyJdiUdwctUzN5McP GzcDZ iLxpK3PPPaoTn3K22+qt4HUiZIdb4OJACbgXAuQ8o90xYve29hxg8UCsLdEYSZuK6bFrS0poUN5pEY/z /tfJP EZiizuOcgzEpNr2qkxUnaFGJux0h9FA1cpnCutzPIifjZ7ZOESzfSvdxz7bUd+OJQiO7tkUjKqA0cXkn 3Q+1P uHplQI+cofOgawZx5N9meZmCAG524XqpZWKUe6u06b3DX5n+IbKFeNbg/P4NH+49CKXzKSM/LxnCEZNh rVpgO r5I+SxZP0Shd13yl+v3Ex0sVSEQ3AnshPnJG00aSYxwal/iC4kIR4ZKS/88mtNh5+l093vyy0rH2+HqZ 96ip8 yHxfySjMpPGv0/BRwQehairBHKXr90LBPWGnaSIp3DIPcDlg9+nJenLLsG2MefSKBMTxmyZYn3GAMD0s hihzE SRtc3vYJjCvKXfBPUVLaSOrHiM+lGw4qaF/5AFP+SiZbS27YK/1Xv/0OUXC3XdRBmUMN3jwDNAmhsK1x OIrdo JX3UC8KqQDK0SqJXQB/nj3l/kDKti5XKjyoyaZed+K1nRLTwjVYsLLiOmBqr6fwJefDjEj8LCucPXw4m h6snw Gk9NdAy7utkpQ4Tw9WLXY3ePuOQAnXpIIS0BYMge9ajS4IRK3tM5eoq7MgiGFPByRuicJ8Sx2nwJJE2e r7CX2 SLiff+Lvet8MrIkMOgVVnz2Qu0zBchwvBp+F5AUcMKJebVXLMbBq2w55lHoWaIEysS2dTktlKnS+3gKP C2jNB /86MLjnXqiORrE7TkecmBO0twphLvfM5JmeHlYWI9oCzpKJWVQfUf16UCnKLMUmAgdtWZW5e4pAxI3fo rCvzY H39hgP2MwQ9XSoUEN8A9+xAEeUY/A1DPePl3ApLF9LdmLEhHV6qM03uOgFKjyJ21s8eV/iHX+AvnyDeM K1BOS P/BRQf2vPs8Z4heMiN+kWAq7y0GFsX11eULTYrWEN3F7Bf6v+2kzSsF0OqpOWELQ/rtqQWAJXropCP6t E+njj xnfFsFwRl+GAIJIJBzVSTLMKzxfZWNwrCn8NvXex5+sOca7O8AARn81NvBEchQsytSgh1ldZlCYBSPMg IYrnn Zlsw5VPHFefeWFocPOL1LqbEvIdoWl3XKgh2EAA5LVPqMWuxayQ2qAVYiniJ7PDNj/wsBNbnWtfsV9nC c02KQ 5GCb5rahEknZDGSy272/9lvZNNvUcMu7w79OKdy8dZSZDtiuNPoBM4jjiGx41jLpxw7gbe5YG0u3UNne Vwst8 dFE9H94DtQk/ESGrd1zZo+z+rpU28qelWLkrgFUIutNa/sF/pjI1oWkPuhjyfEb6mQ42r8smLHIFPhG1 LEkVR 4lHf/rrz1Wa93D4OKZX9dHLtv6BwZO28I9V1/C7RM2rS58qdpaU51pF/kqeXn+EOd8bPcC4xnXRpHnoG +YIde b8VE6cOicGb84mrjLtqcd1nwMJhwhrAwI/yU2BnfyLoxbGDTZigJ3A0yzNsTyr5V9z8vaM/XoxnNJ+g5 +1+ja bnKsO6HGT+B3uu5z/udj1t9cJCnnKQFcQl1fq0EAR5eDBipayFpSbJaeaKkRwtT4putkZnFv++92LQVM kUm2b 6asYdc3C1VDjNmMXHtbSFsLmcg/hmluT3IHZQjV8nS6xBRKkr14icklvUdHW57udbyo0xJ3w4aPhOSJm Af1tR B93wdv+IEOEr71homrtn6aEDu7vD1/FVwvBKkpTiAf67LsQl839dAxRNF+FCmDZZQKs5vXXeRj2hQdUV /rUr7 5kjuwGJ6DSdMzfin3z1TJx0hzbsHm5hEtLSfaxiXfxiIedyOOw8dFq2oCs2muZFsbbYlaK8eDMho0tlg hH6Qu S8RNt/HU3zOv7iKaH/fgDrHrilUhsj6orbFocn4B7ARcxkXFeDTE5QOkNbTJKLWmm9Gx+AycBNJgLN4z gWM13 g2PTHBYi3KHNcEM+f9+ZzRadFkPCiuy3Wq7kGBIq9t5r+m0JRNrvnHnSmTVk72yRXTQHOdAeCV097ueN z4e+x gqvCTC56PQ4wAolUc6GzqJKFAa0fDLbdcjjnIBPMZCytCyUGlfSuVfUa/8JSFt9Omrb8s3520CjU7bio G7y+I sEpxff7BuXVt5K/Pdc7KUeBwm8IwDwN5MvhOZpqKo/tbFOPuvd4K4htxoyQrIUsSXxaMdCbiIyBUjmD2 2v+PP ue/ZbJmPstod9wcJBVXxGCLBBg8LBOmCZ62jwQzvorloKIbf6dBEr2Hnfsm2DesNYfi5mEhRqf3qTkko 58uML pPuIME22UHMlOXsei1jIsI/FHGUoL218yNRgO/V4nhViGwLPJqN6FUQMVgtiS4qygCJweh2MVXoKQuhY rDZWi RvS/m0fKnZgCXbru6SHapqyN+FuEGe5rQ9mcrElpNpNkWMXN1E4U4y7xqxNeBzjk6dgzzHYC2KV3X2/8 OKY46 huZ86wdNB5vbNYEr1x0Bz5YUJXZ2LVsvo0wGFHWTIs48SJ/SAF10GJto1jOZyVWwZPT6L5vHDXES32mg 0X67P S1PZzDjOidQw2lmCQ0Pd2qDaD7ue+ZkamWOQRtpXX8tM3RePmYbhcLFjQZZz8HXhH21COMFyfOmMEmJn /soUl CDtv2yVY1jfZ5PtLPaEh/EBpH0KJgDJy6h8tHlh7gV1ig2jDa34WJNPNyti0IG8eR+oTToqzkoIANuqN qwpTp 5uanY+6o/XBsJWoWVAFxESSR0aWnSDbXUf8f/AuMOaEeUWUnQaOTbPO3KSkIWP+JCxiqZ0UOaUMQcOdU mL8ox s2mqR6HjJ2grUzlMInACyas9ZEm2i7iVtmkup0iIzRVSZOu8T3bCPz6lk3jKNO5pQUufSxmEQ0op6cbk l+zgC WqXyBh1sKufP9UIaBVvDtGI3e48ck+Rh/z7/P0/bZz3mWgSGA2FdykSWQJwodbgoSc9+VQSw4pvx1sR3 LtvWF LUaNA0H8TtKK/th4/KGgK+f+JTbo6yvSnBJulgjl9kCBWkudSHyIEfCOFR8jDCx0hDy6Ky5htGqIsSR+ T/747 DaVL9vbzPL9KDc7zFW2rPOmvZlgpxi176FHkV2lVwurpjjcYNiDyL48w1DJYRreVh9BmEzLa1CapjS9J vhRhI fkFWJxZPnk/5FyHCQzhrMDMEKDC3dU9ARJ7zpAf5nd3cSHljbNbjZXrHoxGeKzfKtxdmZOjoyR4cgUPn yzPhq nrW/M25WkVEcpO/a1wGApRIbzeO0wqo0QzPIqzwl2DNY tfkXdnb50Roz6N+H+GY1SYHrX18iU7YCzmwOZJcbbsSVCB6LDzCqunIGW4/DlW8WPN8IrA3ZxUX5m56S E4sg6 wIDdS2jaSfEH2Y4UmSJQO9OOHB3lJOC4zBtaPWZrCMrLbKZRk8lCT5w0IaK67Ehy6QbLVU537WqhuDzk PyLb6 rWPyvbOnEydDJJgnWUwyAHTRuf2yFzFqeCT49AU9xMIs1rj6MliYhliUwj5N4hazUCZgEFmArnolFSUJ JfdgQ G1kqaOOAB6betwMNY4rqsvIYlbDTvECSv5j8jUgoPobUQ8njMkpXH20mpwPCXrs2ZfUi3tc1mf1WA0SF 6wPaK 1GC/WB3AEyPpc2djAGVUqWjWuwEz5UIFnhxecroo9jQlnoWy+F+EvxEYUaL+bJ9daCZlgFTMb2V5LwKi v8drq aVmUXq9eT+NKvXoUKnL7hdYVGOEuAhZJSCsh4pVlVpOVIlrr06g6mNbTFFAScF51tosVxka+O9HmaeYj /Q0Y8 HLchhF0gFWxNeJD39ew+pJU1XFj5daf8cYmj7ZO9SEquY2rC9B7jRHsDWlhiUU+BPYo08JYXMfL1/0dr Gk8EA tpqA38a4UCJrTu3cBG4iPP0ICmBGeKTKvzM3G2FSpgL6eJJCo22CNHNu0COTmmKgAiofISd+OC0APrEQ twY3P tTNgubsAIeqEYF9yf6g5nl+Rh+htR7ToalntozU2fGXxVUIjeRlcOICCHVnxPIa8gDPPiBPS3CcuNHcY fHxUR 2u5OPTH/oglCfGTNrg1j5bR8wlWPjiXWZp2qPF4zvoSrFZ95w110AKKWERyRT9a57KL0tq7jAisBwR8T /5wA2 DPkFCxYCN638yK9cr8jynQKvn76arRsuLLTuywtXC+rx9PCkWruS7LrDRfvh9fZDT69UTjEwgcKmuBOE 59APK SHC/xOVccn2w4nmrC9Zaz56MG1FyZHR5mfKXWftpq2dBPf/BLmpaHzaG6xWHgxaWVoV/dbhRrV1PkKna JQ2ly psjNYZaaXZDDbLpBfOed1+tiNigwjcepbKYB2f6jOzTjGU5NlPsPA1IPn7S/Nf2KpvS4N7cftj8zqCvS mtXfA gsEjQpl7KSDVhtjY50hOLQ+OWb1IabdqRloKIU5qMGrevJVOgbbNYpDZyY6rGtxJPJ2onQtX9lR0LX3l ussFr xhZDAJcTkDzNgVQHFoM4VgXea3YL6A/IBfDF2N+T/PU/jVKwoCoQUG/oP+/PEhrVIiOI5Y4yAG8DXyYG mF0Wq 7Y13NsLgxIYJePV+/x/qHKgidUXagizB+rKW9Ys9t30y47tMz97KCcBq9+DAyt9dgRy60Ro+G0yNLcD/ FLn55 D5YsHP40BJzWLM7KhlmnjkbuG4dsxwlyySQT0en467sQhzR06tjCDsmhgCOdgwPfnwVW66qtKCDvwo5v SZaKJ zbk7WvAteBIKFb12Gn/uFs5FZSqC/KESzkQ+U8/0d6BnBqwucH7xzHVc9UvznEYyHl1HMH3HYmNillZs M8lwu G0MqsHBEm+3V2yIHb6wWcSvguywiiAyfDuya9ksHYB/tpT/g2979qR7Ub4cGVXYZgvsO2Sy/M9edSqbZ 7Msu8 WlkQRrbsX35a+OzU5s319gRXIfgXR302p3wpWXidT+gX6MqfVwfmi3tuwuNiO3/zeMD1cxOYeT/Lk+Z0 5INqb DSpUK25pwM0/Mo47j6Vvb36vx6Oujoyj43EIUok89UMfA1/f83Qs7ZJNH+Qdr/5nyheNRLA78XSgTWML Y5SkC 8DNYe0KOmSwjPdpYQkHc1LCfc9pchOrrc7sW1jbLM2eJ25I9HX998Zr1Pd/LopvemeSxEHlpzUuS2xrO 5zgwS mu9VkerI1wr82MHrCHE11CuwsMlm+Jb9IbUzppGK9jmFBl8VHqKVnA7vGzS4fIb5OPdp7xXglxyidwHQ rMIqk EH8n/YPIOXN09DKlZVWEvKzv9IWOxsngCQOVgmtkxHB+eXDsZFSJfncPSNOtKNk8UWMmxxz4YBVCHXRH AAAAA AAAAAAAAAAAAAAAAAAAAAAAAAAAAAAAAAAAAAAAAAAAAAAAAAAAAAAAAADACfklwACo4/oLBnHtYXH9t mVhbQ bvceZiRumTCPKxYJRaVddCJSnpW40vbPLhrLKzUHWeYAAgGLGtIJQ5LYZgZVKnHUJrOBLHXUSaFGEjBK BSIDE 6CHEjUOHMIU4Zwc4wBe28DyNmGEYtMgIvSxShVcYhLgwrTaSoG1grq2TsGNJtAzZuNVOEL8pXBPXfBmD gMCBS C81jVCsrMa47YgBeSNIuNfUmMgZbZpHjAxwxVoHqF0RaXJRnPVV0PCtaQXDsPB33UJRmVxFdJUPFS6Mh c291c zEsbsa1H2JklX4cM8BtZ5K2DA6FUmZuYTH4YAAmRQPtF6EqVWB2MCDwVt2+E3C7yZkLpYK5AWb7W5hCI CAxMj RiISFfEd2JHdNkZLD3MYYfCNNsI9AfOBZ1FGFvRTLNFy3qSe0rgQd3C0JVXWYfEaH7JDXgFc5UKFYpKW I0OCA lONUyQPNwQGTaTBXjBGPCNs5yHIQrO7IfkKxqWSNEO2EowJIwGF9xT0ILC8snNTxiXP4iBG9ysyDtmPg 8L0lt KOYgAnKoYXVfIo2rISRdBaqpRZJQX5BlNtAtBBo6HLJwJv2+Mp5vQd13NSWjGLWjB4HbdGI3XOCeLN36 cyAzM X0HvCAqE3EpC2EgLZLncm6PSd7RVM1ib9HvIjQjFTJlh4NvNhs8T3plmml8sIW2CFk7Yw6nyLFkAI2FL 0NTMC BifiXvBYUqR29AUPAkNgT0OnG8VJZ0TQCwFdGsXNF9Zd84PTKgllOOBmpzKai9RuOjr1RzJnEgDhVuBH A2NTQ pZQh7SNF8DM55KRcoCEOuXlGeOZJkVAdgTqPiTvLsAKD2JpjeYkX4DES8LJ15VPfsTJGfGbOrTZOxZAm mCjEy YzOqIUD8KFSkQpO2RGS1AX60CVmmRMNdXbZwXBGnJWdbZqInGWGakosfKZ7zEVFsUwW1YeQxAMVfWwE8 NSAtM JE5Axo9YPEdQYyvXgJ5YQ9fQbVnTzI0BuWoJPYaGxY9RPPyIAJ9Mhv3SQDzMTuwXzWnZdKdIGS8PRErP DcgMC 43OKDoXDW6ScJ4OJIuVYcdCuI4NG2tPnQaWMAfHhC9OXQrZvS4MS9xOu16NMbunrDXLnysZK0aIDPoDA A0LjA sNpQpVnL8TAYyZuKoTSCeRIflBqK5OG8rOoRmSXJ9NhMpMaWxAkT2HIUzVkWoXLMoXZlgQxLxWbHjQIO 2NTUu GTA2HBF5Od69DihiBUQnZxD1LYUwRqPKVXTmZzSiKKC2QP7lIzB1BDGjFQi4ZM0nPvH7JKNvYXcoJvAo LjMxM FK6WVXyLBqxQVTlAnE7DKIvZA47FAGabnSLHtlzYD0kFOXqKIZ0GvWmVfR3XLQyMMu9MQ7kSsR7MCPlC QpmCj VqHtHfCIT8TCLbMTE6OCA0Xe80RgkgHHCkHdL9QSOaQsLADKRuVjZiYCA5Vm19HGJdQQAlQoJ5CXQlGN 42NTU xtlTMTmejQEe9SEg8C27VTPNoLQD+ScFOYuYHpBomTGU6EiH2MNLjZcrbUMWhCtbwxsjXCUbxODWbKTM gVGYK KTYiIYG5GBX5JMfqGWSdDUMnPVWsSj79XfQ9DDZ4TJ04OyOkGfJ0IpJnBYKfPQ2SLqmKcINcTVJeJBzn MzMoI FXiQsEfVG5kWCbtVPfoSKBfG22afHHvSLccZPvyDNFpuy8tLBSIHyCUHeKFL7POWRESQnMhYPNDG76FG C42NT MwwnSFfHQzNDTxEMGoKKT2IW04BvOeQsF6RkJ4UYIcX44OKWJiKZ6EGHF4Nkk2NJBdDAsBAlcJHzSTVe AKQlQ SA7VsUIojLJIPOBEkUR8+UgPKABahGVZqUCMfSEDERZ2bAdBwWCvfMu5fHTf5GOLeNWH2WtWzBSAeNYD uMzEw XbD3XwgqQYZfHQKSeFlyAWAcaKjkdyYgXQxfGUCLUH6pHjnnYQRiNUdmWZjPYK5MLLuwRSg8CBh4X61W SUQgM yA+WwMWLvDBX2CTURTrQQMiVtpoAOtVKSRKBTirFpLnLK8ESVSUS9GOPE8MVwpUXHJkLw4TCZw6E76KN UQgNi A+ZpCHOkTCM6XKMJIkXBIlYrKoCsapVBYfHTMkGkssRCRqzuQcs9Y7OF56QNjtDQD0NVtyQQzhVEAhOB RKCkV HKdTTA1DpzzU9IA7BQ8aMAJktBi7HFFLqCu7FZYPnUTSABbokPPR4TlRjRlRsOuFsYMmtCONqOCpxNOn dVEoK VB0QLAqpLSg2HVt6A77NAFPyDXL+IeQKWmZKBPOpExhkUHUgXZ05XIwlAQIMSssPLO1vNduhQOC7sS7p aXplK O25QXdfvQohAD3zCVdly2OwyXrxk8pcjpxeXPJdYI0sPR69TtaaIOzuYfVwGLNbHKbsFI96PKufhL2oU TczKC CNXHSnJ1LjRGotTKO5XFTPVTHcM0IjNYneKNsgMV7aHG49KlacWM48WH6eWQpwy0ZuKBFdVTciMZWsFW llcik ePTBnBXFmywwsUQlvWMAafOkbPVlbOZWnlzHgM6LkLB0lMGjivROwnbvbCTQeQMU3KEJ7wgtdMDmRKR3 DIAov KAd7RZy9U06OOXPhMGM+CtGSHhQLWJPfEB53CBzxTDAAPbfgOXhaAeMhIZA2VR00AskgJxGEDVKsYOui KCBub 6ztBT57WAphlN2wAOcyZOV6rAFwMRH9WOAhCQJ4EYzrAJGmWJ9uSD09QsjyyQ0pYLixXUH8aUXfPCE6Q CBmdX J7drIhMX48SwkbyP13gUtbRQfuTOTpxIZfMR32GLhymYtkGRsfJFFySTKmON05GxgvKDorNvGqTEOrvg 9rZSk pRbBaSAMknZYrDGC8CXBliDRhc8VclmP2tE7rGU4yQCspvC8ePQviHOB4lnn3wX7sRzauQEnJLY3ZDYv vRGl2 ELx5R11WJLVuSJCpMy9XPXGcJbNiJGXbQFN4BBHOEpnrKKdmOtBuYEGaFBPtb2EongUbHLgmVCZ8oKE1 KS01N RdjYVvgXtHqXRXjHB46TekoOiebTI8vvUOptVhbZXM1JEHgLXGxc16cpYQkWOcoXwAjSYJhuansEJibC HRoZS smATnkJHEqhxVlU3SrDE8yXEkuFS0wMV1lOUjde6BhfNbbCTMpIGQ9AGQxwp99fHLmFEukOJiqZWZjNH 03Myg giNBaMUpeLUDmoDjkFxRnMV5WPR3ZMKbiGBzQES7ONEtbHXb0NOh3V51GJKTeKYUgVk7TEJYePjQeFxb ocmVn RWYzjPFqeyqsTKYoWB8bJB43WdnmjDrtZIqfZSIoncG5ciOvP0AhBJL0CVXdh1PbbwBnZYgeIQF9PAUh bmQpL RD9IRVucltpWzAuCHSwiWSoFEG2GTFbTKMtslueIBQ2JBSuZXgqKZK3QCFgQJjpZlNcUTEqj7QiboEsY mxlKS 5zXtrzVj5yHY7uDRjrCN1aUGbbNPJpuG27nxIkQIO6JYRjqmwbWmNiCEGcJOy7bP2fWI7sZBehyH4wZF RKCkV OYjQQA0IjgbI3LQ7WQ0rWZAYqAB2+YsQZWZzIFcnvPGDtFWFxSYD2LDV8eRvcgKehCCDdIQhxknseCOt oIHBh mPPjNAS5YKAcdCrmMzNfDD26DK20FvxymH3whNXedrYyAehyLDFlMOazBJU8AQOkV9RvLPemCQSdNFLx KS03M zbwoM4eVZQjEJFhiZufBVP2OJSnLS6cyQcwISWuNUPgGJ47UipvVuHFFPOtOHfxSXHkkyulJJM9DQQiT XltZW 70hmvqMZrrGVFzIRElFWK9FXUJYZ0fYuwxrdAtNQq1FBcmNDhBLF7YPEswSIl8QAs5Z39KVNItIYCkJt 5CREM iGhPoNYEeFFI6GTONPzsqLDijBUE2vXxySQK3RRFyya0zLV06QUvvvR5gjOTonwBdLH82RQwwm2PeLKl zKCBh vbghJZC2EEIdo4SiP4MwMXH9TJS7nQM5r78cznAkMW61JAusOl4bHP7gDPijtKzdSZ2lZHuak3Hdnrvq ZXMuK K1MGwdKOZAzFs3FZZn6C23TCZSqLGQqIb6RWQTyBx8OGRUaBUXFZheoMW0fAbjdPWYSOTfcAEVcaSNlP 3kpLT frDVTEtwTrlJbzMUhcUPpiWLDkk42jk6hgQJlsVN04QtuzXXhLJR0UPYvpTKr3LTl7D00EVEMtUKQnNi 5CREM zPd0LYECfWUIJTxfiWQ70NGEdCXGADSqpZQT1BN39Ljehk5guasyuBmtiQkLqFKNxgK56NXjyOlItKHK oZSkt FLdkNIRoJ16izfiuIfEoLGVze60ls1edAYkmiiskEqYeDDYxXMKwTFI4FMKWc4W1uRlxQOQrHWJejvGp YWwpL AjgQWAKFFGtGUZ6JARbkp68vZXzAEhkBVdqKJCzRMGWBeTGMiHQK9VupaZ7GP1JM4iDXQU5HC8+QkRDI AotMT jfBVG3WW8dZynhLBXSGDvnKWVavHpoQKU9HGCnAwlhTiOdKMq4imnwEGeaOI0tiTpfHWqdHwGuGD6bKV 03Myg dVKKbehRafJvqQkIvXLMuYGM8eEHumlrjTULxNNQaCI95KlsccUmiAX7vADgfqEY0pEKeqIeuShUeDM3 yKS03 Tgyiu5PzULIwSQseXBZhSMD4zXnvDVLkSArpiVobRYN9GVBzlaN8jfLcnSmoluDtBUkrJDM3fojwEpUx IHByb 7QpNOMwFIkjFBE6gHTiGZZOFfVZOpMDZ1NxvtK5DV0UC9aBOYM0VF7+HcJGMRkpNI1xBjkxLMZWFLltM E5vdG buYPmnImVeEJMiAW20HnnpiMnbOR4eKUijlJF2vKKjnC5wIQSELeVUBgZUEGPRA2YywwQ4EV9GX1bUSX I1ID4 +FlRKEWgNWCjuXSBmBQGqPLDEODKvZAT4YLT7OMgtSRGnRUMdEYXhKn98VgX2ZYN7ZfB6MGRsAoKxKmt 4ODMg MN0EJkxYTIOPFJ6UOE32RCjuQYgtQpjsNE8cZSY1ZLNNNZPWRG3AJM61MBsgY5aCRsFAEUBKXX8HKvpC VApxI BOxPRTsHELgQMdmJBj2GWC2PGOiUhReRHJuBcRyPWOqFiZqTW0bKkHeYRLcIxTUANnSHXIhJtVCUr3VU Dw8L0 5VXCJwRfXxYw5XXDLcBz6ITNKrCDNNHkclHlWwDnHJqvN7PaVjVDLnVSIgHQsuBdE6AAFfKb06AbWbCV YyNy4 lIyG3CXCiDtwwZKntIB3nKSerwLL9dBCbaSgbGsUyKO53g7SkULH7NNFfpNfsUO46NLojzCCxRBreYDN oIHVu dKJpdjczCnWmFYSvEAfzTCngCREzgJmqrlKpYWciCSTdsnntHdQaMQUarLSsF1XocKewQIlvVKOicjik NzMoI O7mucIelVv0SN1fNElvaI9aJGMkAvdzUD79VBgkj1RrKAvaZLBfgGayzM7eTbwdXYfdZU8YDDY2VY4SJ gpFTU UcXg6YCJb1Q04LVKYlApirYy5GKHMlEoKdGSXkFTR4IOESRtmuhJLuOUsrVPB8jZVxHFH0XTFeBEUmZU 50KS0 9CoxtkWXeFAwlIBScEA3mKlrahGhad0XcUO0nRkkbyXptID4mYWzxuKIvLL41LW8qLsytw5MzICywNDR sZWdh hCcvGPZyUNa7UYSgeRJoYV7zUFpgp8rlnHoiDR1yYbsaz5hupmrlSNFiLNojHH44PrlhsDaxvugmCBMn IHNlY 1Sfb28rHJ6pGFxlOGZvOFymXNK8mYOsCIV1BNAdIBWuPI24GP3CRejFJYHbOz5HSWp7B33EUMAnIslxI j5CRE GsFeXoIjons9mxbwRzDJhrDXH7qTBxRP37UKqeXL0xQCnjTKIwLCIZDqVPNlSXEBHRZ7vtSdN4OD3LF1 lEIDM zID4+BcSTHIkvVr3DOjRmV6OBCMx1AdR1ZNR8QuWdIQEqDYB9VgI4JwPiVHxaLZRhPAe5IoW4HPPbFC7 yOTA2 IFF8IQQdId6UrHEnQD2GOTbQUOLvDdJXAs2BLIy6A94VZCDyJoAnRd5QIJPqCs8LSEGcDFILSzo6LrPd ODUgM AMwXPqcAiS6IXAtFH74USsdRPU2BM8lTUQ2HDTvLrtlFLF7gUTwiQegSyHaKZMuP26pbADfYMjiRFErF G9yKS 41RwdzEHZufodgYMNrIMIxWDdfHKjRJR0FTXbqYXA1KA1WV1jHNKQ8WP3+RhPMXUcrPGJ0DGK7QtzfRV AwIFR gEiwbMSJ7EQhaCKnqRGZySPSBQxUBPiQII7SsMJkzYNTEIFDjPBR+EoYEZnXQS7ZFJyXsBKXgDeBvRZN 2IFR3 UTKaSjP6RUTcYPCEVpooZDJ9VA72QXnvSL6fKvzxVcpoJcTnJXiyRwDqNyBaSNhvFIEiEGrkASfkPS3d KV1US esJMBUzTuWOAu1TpKVfSUpfDZKLJWM2LEY+KnXSUsDHMdJRA2TZBYRzNYFjYy0xHqOfOnZLbmZ7Mbv1N zggMC VnBXqjDSVyJGHjDK5hRpB8TWNuFL87SWQ5PLHvNrsrB4UTRTaPHcykTBWtJLvGJP77KLomLVuiYcuzNS FVVEh OImujOQUyKEehXFSYDYSXUYQDChAYIQrKONfoCVjoOESVU08KMZQIUAigWNfSRCNWoSWlXROqUADtEWV 5LjE3 VJFqDEM8Ibk3JfUsG80GQNMeRV1FMpK5IbV2BFJsfAjTIaKYMO6XJIjLIZesNPs7TWl6A89ZBGTkVCPi Pj5CR QGiDxHpWjEiKAWoD75TF9BMVDUyLDMcPmjwXGAlLJKcPTGzGo12RkS9KELrAaKnRMDgNIBeSsh6UVHjZ G0KWy pDs8FoNNDsDKIZwLFaxZRfDfioVV5FAheEAOCzUnFSEk0HpHTiCUtxPDOLRCG7HOK+PkJEQyAKQlQKMC Agc2N jDh3CVHRoBDTLSqy8Uca4SireTZCeWHhjVWQmHDKdEJ5uRwN5FOW1TK11LKK6VSByHzrdV2LXYBiBMhc tNTAo ANeUDIfuQcOhAP5nLGF2XQNHFCJKKRGCV9ImKRR8QXWUFxTWIU9vOvhtBR6WZJ8fFcgwBvGKWNaUPN7A KS0xN pgcYvPCWRuDMAajLCFuNMTYQFhUDPJMSlFZUC4GGmqDCIvwAPReRXWjIHZbFIpbFLm5UKI3PYhnKRU4N SBjbQ wwPLKcuFxaUGOuOhX2OTAepUrIYvHCUW7BEOxPQMsbQGd4GYq2U22RGAOzGZZrWj5QRKDfWsSxSrVsOJ BzY24 KR1JMJNPqPTTcGinuJKTzLQYuEDIgSx27JpY3QJNyUjHvBXWlDKs0Fii7HWgjPZ1ROdsLm3GtARErOHC BcHBs hOXvLfzbZY2ZZrkSQJZjXmZYBzvxrvLorBNxZE4AOU7nr9LuAqEeXFJik1ZiIjv3X9xfplm3tVF1Zc9c dHJlY W0K////BTFOLzFvJQD2ccZewBpgvbDiGurTYUTcBUVtYgaGSLgzFjg9x1WxqfHmoBGaigSqlMQ1N9Fqh G9yU3 JuJ1PxXPhjFIQWV8JmQ27bSLdmIuMbFuU8CmPuH1XvkMXnyl2VpXR6AIWdE31sUV7GLUbewTQzGbFqR0 xlbmd 7rMH2OnK9V41kmBMmKM1IpJN2xSEwF5sqGOjmU9J6jLLcRR6hakVqkL9JkQI7aQC8DZN+RyO2udNdjPt IieyX 95edmIfQ6/3f9Dyz+gFWAwBFNjp9D/wfnxFNHsJ7EEqmxNJMMPOWDBFFBVLESokztDAGFWVOLZZUFIVS Qgghh BBCCCGEEEIIIYQQQgghhBBCCCGEEEIIIYQQQgghhBBCCCGEEEIIIYQQQgghhBBCCCGEEEIIIYQQQgghh BBCCC LKKBFPTIEZKhojjZFNDANTDXJNHEQLBwlddEOOSUCXOCYEKGENInvnjFVUNTQFVXLOl1ZqoW3JpG8rId pLV1Y zG8p9iyExKOaIn0gDh2Ze8va38hab8qHqY7nIq3GsTDoXnhuVd407SGABoiDnDDPxMUrPQwJBjSAcQUi E2DAi ZrvVSSKFdEKzJxEPvT0kB9EOXEBMnHlSVVEmyt0HTmDMSUxfoT3IVpqQ7dwouEScyRHnNz37W9Ke7yYG xaQ3N 7kkDF7Kwvq+n7COCOQ8tYu+w/5pkEevNIEjbOBfGa7TrDc5BpXK/4FldQoeArvMaDu5wDjCvTd2GucMX 9QhiY fgMTC2iVA2jUBCoZ7to3p81WB6NsOjItsV6N4WMXN5YXMw2YzyelYPyJ9cEMAJIfBPjWqQjvwC97onmW B2iyn rttxI9lX4ZZ/eId680xV4waugaFlv//o79LUD5puVhr7+mdvKWX5G2EDWNJf/zDhl7e5qTz0C78QoPcF hR38/ 5X3aJq3P9d5gkE5leGHHJ8dtg1R1g9X3a/Y7/+5C/zT71THBy1568ZbXxobo3/4ozDkLy1HnJu0TOhnL 29C1V AI3HUjBPPx6vThZ9giIKfCzGOfbf5Z475njMwq7Shzo8TOUUpFgcpfY/uOGIRoQ9q1gH11xtoamf66xO q/ICI H5P64nqLyva805GsYStyBHvnZvn61KW5gntN/TZPYryGG0kXfRGCZFVcUdVm0+5PEQXnds3IJ2ids3EL lQdaO 45zHqFstz1nvKHguHW0oAtAULuQfSE8j5lvj6HDOxt8/yy1GBd3ABmZzRI0yPdOye79kjF9yZFHswgjX zLUWv zVOHiLlSPyVPQFTVwskI8/ELUzL38FsXaWv+JP00fXkvqRo645Lrqqpe2lGxR6ltOHOevy0wpkvH1Z9j Hggkz 8gh+HtjM/n8RjCPpZefqylTvMWAE2tQIHlVPNzTcqLT8WemmFVNUclX138aZrRe586GKvUGNzvY9Hxaz 8eGJn 5cIdIoCad1shXpGK3v08aa916z3+E5+fK56rPpzPgeiClQ9EPvh28KJeheZWFxL1bzYi7wMfAW2NBlpg jbouN 7lSrC0c6tL+iFfh72y4swsEBnXtZBBJST/scnJQHrMRj5pAe0hyUx3JsQLmqzXT8kTGazLhxkcB3OTlZ duIN0 91HrWkvU7AAFrR+E+pyttlQ7cX/E/BsOkO3wt5TKMGqxMyGtt41ATSwho3tN1kKOr1KLw0R/IA3Fbm4L Jrd0I zuYvXYRIx8Mw3lqixDpX7f9G6F48IEO88Cie4j6+JnD8p1a6ccbhJFTaU6KXfQPBYpFMGP7vjKXqqSdH M8dZR fi/OOs2g822zmb/uw7HzMYmBdutTDNY4Am4YEmvkrvuMj9KCS81epBqY2jNqoqg+BhTvREcwGeBuew1L FVht4 2nMlt8H3xuKrHbp14OtnwcRaggsPt/O5RKdivKblGyVx9SALWgh/pk5TfQqGt3OdE/mtXZrvrcBMZQjp 8/K+H DiuvwKo+aAqTPcmDuUnz0fayV6+LQZXg7HBrsDPu5uxDKynT6TMpe+BR8BelE3EQCYpP2wjTlYvc9GXe iKDDs jU25DOb+bQHfA/lUF0+EHf2422QvbOCzvlB4+4hiEvy1hQJlMjWUih73UOvp9Od3nM1YS5N6j6Bhtpgv Z0EeZ kcEJWCwF0QqqXtsj9zDbqLBrADM05wWxQ7CTREVCqtur6CwkYr3eOO/MvpD056vtX67KLyapFsHL3Viw 5VnbJ Jy1Sv0I8ujfKNT73b85Iu7RJhOxxzi0MYRrCSpu/hzZ6isFOQkPI47hkouIXGF99RCAOB7zoX2tX6rZw qMF3+ HSUB0d4OntgUjOQVXfo2DH3vRAPCeX++ahbznzXhppIXe9axN/puDKCK1tNdCx9Fv7kYWSMMnP4mquz/ wZ/Y7 WuxNKrFslWIdXj+fzPHmXm+oLHaTYYDKlypw/hjqOq0Wg3MPL7pmbyvoL0Qrz/bGz2stWCfCDDvbgd0E sE4HF Fx4g4nBcfw3GkctZcYHANDi3+xrioKOChpcg4BdFZ4FIZzX98x60IEiY7mSzXnsF1zz56ofPgACYT4j9 MewFG 9/bX4GUFE490VWPYRRv1za7XodTY0aEFGiI2gaA0tVp0ue0jr8BV83kPD+bz/Y1fKMB90c1+j+DEzfnB LdNgL iumwZnv+UGLr4RwV3iSrZ+/BXYZ/Y9wNCCzSzM7zd1EoNDup0HWWK5WAG4JBllAM4C2adC9J7td/d53q Tt5Kh vzUHHrQhW8ft4LC6FvolAqW0dgnWVHAcLkbgddgWc7KgpPpbZV/U/TlVe1JcdB2J+YTA39ZeXMpEsE4j 5vlC8 GxbRrYs4kRHQO1Y0qqZv70TY+O0AbtT5AVPMTFjcCfUoZmslOaaT3pJl5acPbORlL7y4szWtBzyoNgOh GIDtW VFDRmtnANdaOTGN2xCw0ww0bnhntZX5cKEzsyAyLrXhjHPZ7ejD0raR1RjO0xhm/q3mCb0PLmgK8I/dr pdBMp IADok8FBBAaFBz+HkCRfrBy8nEbtLDjWJBAonG6+/jj6YWOJryqXRmeisOASKJ3WaJ0iORFtg2mrcR6L x+/FT mq6W5zJ8oZ9Mcpq0FKPZ1gbPyYJShh3Cd0qM4laI9LWUAEyv/D6chq4os592MFDJMohWAru0OGGvu4LU OIgn1 WvFTlJtkMpjAG3C85SUN4O2/MzRFyCeN6nzC2xe3KuInfrJZdkn15EkAU1NSqxaUT99J78Srgy4hh0HW 7HmA7 bg4wzOBajVo6DHWiY7p4iCSk4pFDf6UO9d4HqxMojZT1hzz8MvItpyRHHJLwyY5VFjQz+Us32n2lbk57 d9rai H4f+t4p1JnB6om72bUiGv1DmKcb0YOmrWqRk4iDVu73cg4Bc9YP9XENl+EpP+UZD3aQNM084xCmYEUbz 7rLbQ odYj+G1gGt2k5b6B6OiT5CjzO/RRtX3OIWS8eb4SSeUm6QXhQ42LPxZXK/y8tqIrFhQ1L/mKQEoxuGUU XgPCy gbHrDom7G23D2XQoQp7AhTmFoszqUGt4efjiWBu+T2LW0IbEK9/zVoORdQvM3uLt1gKx9+DtGN5+PQS4 eOrY9 E08ngDTydYCYyWKv/ApNS1MOKuTCAfAeyaryqxcu8EKFEJ5BSbdvIS3nuHzXXZ9C+ma2nr9gq4YoYrC6 CvXYZ h20Huu/b3vU7AV7LugCYVBHau3IirUYh7xK9W1ceJQDiLQMp3z4obt4dqxq/+gzDBwU8kU1Dzl3wU9P/ n8H1d 1fhZJIxEBTiikgDLPtf85EkiwQbMuo8QURcK6VK4N6mwl0xVC1FndY/eO6DIZ1Ktt5Slnb+GlfL1ZutU 3B/Im d9Rg2ypC4y/5tupT9ODFhK+PD7seIw8lssPuiIMXVxOlhxJwnbDgitCiuxCfqtaevFxF3/trLmo+y9G3 LVOHx UY+2BaYKbP/vB1kN5sdXVIm9+nh3otB6fFT11CqiBi0PA8rfMrvXCpXWsV/bR6nkyhdgOVwuhgxQ8Hm6 kvq9D zM9riqp+SXoHI1tbDwtCQ61RoFZQpsHK6p5gc5hrIqj8ENhw9dc1/BqCGkA9ukqU4VL2bxgM/pxV119v iWfJC l99drMJiBAhMVnBN/afCD4TdLen2659IZM2C4cSQo0bfIo57wRpi8wcXlcMdVKHFDtmmwY2tKGxRh0/T Ie+ua rEet2fuTFIjDMm8Vqj4a4vJ74EKg4k5OouLEzO45AW+ylU6nqn8Odwb9N257JS29G8iHag9leImSkfNB 6xTLR asoouZmptNoPvgEK1pAb4dRvMUyvRsN6yUUvvn6Ddw8GgkogrqxewXugViA3AjFjxqX4Wbvl4By0hqDJ dAqZ+ s3VMYCtTbz5EpPQHilQc4qnL5IiPFXihTdMJGF1uoGS7FQuEH3uf5B8k7/UddUl9pAOwMU6npJoFolA3 duUTI luA4Jziv7CRz1I28rOPUwivOCtOAs9CakpChWjZvs+tt3oA7ijyqy/HP2DPKCmlA5Pin3YeV5LmZfT4T gfWob i1DaK70KLshne/h8QjB237QnOWpCuPHavH5Ty9jJwtdNw98SakrthW77Aw9xViCU1X35A+OANBNMdxGO mQP2j zuq8Dx+HpDKxcQc7OrdPnTDdnXJZDP8DVKlEy8fDT7MDkQOwdicHf8hRmscRt0kByams1jyX36gyWuAo NLthv 5iSbJp5011FY5XZU1jucA9yxYN56UTJYTa92PNm2P7KAwJB18RfBrOEXh1vAnzfbNhg5RzVUqeldpiod a65D2 mdRFVGoKXkHKF7qjX55dwe8zDLz14rmyNfvhBdBlMRSPMJQeqwJPYnAcQ2KIrUKkVjVSgAkitV67frdo aqy5v 4F7UzIm3q1KyIEs4p7RBSZnGFDSYacU4FXuhDNPjKNJtDTprq/xS7CUrDakArMstrR2f7lHqllv0fa6a X0+B4 d1lag+yyYAckoJPhcJ//cTfJ4oR3dMPuMcYprslCKK5i61tu+bA1t32i3CfmQL92ZAktRc+OTC3ihU3s fMRDr 4d9x4Ms6I3yrMPIpq1aQ1u81Yn7qtEet2pVTDwhToj3Kb0UPYeq/3CZ3LOsqC72xeDAeGM/lD8FHR/Gq 6Bzhf K6DvnnzBK0OZYQu7KaU10DIRvqAO+IZl2Rs9zYoYy3wFCOzQZlGQs0g+a2nAKdPQ3DxrrKoJhdBs/KkU 1I89f DvuwxEw03MQ+BM90Og63WWzkQs51HHDstSNC+PmzDXmIWyr4q/qq8cxXdK9sUgol5ZHONgRe/SHn0TMZ Oc5nt H7uIJKm/5NP/xOOp1dDeMvmg2f812Fyh4Gjy4TDOOW9SgvczJz3fKrGGLNTuL3/Tn6/SarRORDHG0Tli P2wn8 kY1fhhbxp1thQTZspXZAUaNi7BPEGiLjJTwJkCBBtl3SnPOtGZxEIIf3Wz9hbqlnCHKNh3HbIxaH5l8B AasJ7 MfOuedM+OKmKXFLZY8PQ45Tt8lrouE/lO2zmGqBmB0tjHUiTFE96B4ki+3/3oqdc8/2akpSKC3yKvdy8 XXNON t8gYzZZerabzyILEWpN1xTFh0HfDAob/fer486UYCLITIF/v+b1imvKCHAUbQcSeWlP0w2SgPDtRmtWL d5Vbj Ykj83lwpYk9snwkbAiZx5NuQGVAWwIAHalT/BQuh023204THKV3RMS4c3pc0zOLwoApXMk345y5ActtS xN39x TiFwKj+Upj5ZslI8NcVyo8DCxPkmivrgZwrKF5QSDddmDn0bwM0PktDgMoanVmgtqTV2e9LX9OT126Vi Xudf6 MY6JhMXUKbQCpk+Tw+FU/Ml6LpwFdgo2EV8rdpcnSRgJggl5n2eOh4ZW7qrJTx3zLxwJ17MGj5zldlFH 1LYY5 u3CFRpELk3aXkLlOajpcW1I2DKBXoP2GRH4kGHQWOgHtZwexdfEN3Px4BiWIee3hHO75dWHskRwGV1mm 6OXgW DbtuPTWQalHtyQWFz4fe2XGgqCRVLYlHVATXSBKHFIFNPJUVRWRJAJEAUWQN/AQYAMHsbmgplbmRzdHJ lYW0K SM9tl6LjApH7ZVAuu6IyMnp7Q5ZyrCNngd8FxVR3ZSBvP05yOV3TYC3ovBuvRsgiXjQmOYJlC7DlBKS7 NDA3N z4+c4TzVBZdJwxF2PDsUKHWNp2fo6dFWlJrReGA6S9xon4PbOPGNaXHmSkOJKsDZKSLRXOJDdlC5rmC7 BaNUT P01NsSzeXx6ySy4lia6ocbM4SPcMREUWJNbZZPFKHD62H5GJc4a+b/vD5Vde+tW7ff+6rq+0AAfFEChv ixCd1 83yzIvZ0OJCIyZM93krkvgyv6hPkJCWkqXpChf64qstRHDzP58FuyKe4Uw7ePRMkegnVTyzl/ozPTPgS 6JwHt ZGtmWsaTcxFNwPAUUS/aKgK+v3syTG4l3VvxySBi+p2k9N8805L6mI6plxvW0ezX9EZ35Mfe8+bZXrNF 5oE6b Ah19ox32Ckvd4/1KM6D5XN83x3sgCDM3edUQj82o4tKeMZbulyVp5YBgeEzt8QunRy4Lu7H+IrwlpFVY bkEHS Q/QxzMmBC9Xqk0EpT6ZTV8CSNDRpD0cSXDduPl4TiSXygxLmK748rH5wb7qtvDfIW3twL9k6jFUDFW0n 0gtM4 8d4oaJm4Ehg9+HpBrXef8v12km+U+bCvbwopYMSuT+2JBAE8AGfarWewB9mi75rJ5hqxOX3qFZtYMjSL 8RB4k U3Hn9HdDPHNy6AHCjllZJRZLO/TGJKiLLTTzAuKvXfTYAXvdrQMetSVRxVFX7YT5nY2fgeGCK+kphMKp M8XTV VrQ0SHQfuHNXlXPjZsZ7Sjpaq/fdqsGZ3OZvLq+IcKsPpiIRrzY3MQsuyDY4ppcmAth3eNGkNiDTBDGB BGUQs mTTrChGsIIFIQENZ4ud8LKgyAb8Yq6b+4xa3LGnrGewW9ajy9do4bP4sEmyb9K8aUbYNu8UFRijVeWH+ REOUF rV2vFJE4vkqBvPj2lHFo4Nd1bcYkVb/LSuiJDQNXG3rBkWKhXYlnEDktrE4UBPNYxF4+hl7ZF4su3bBb WSd1o SElwj2f7lb71hToMABHjYE+lF45GQ3iLcDaV5WeVq2LQP+iJOEi+yh5evgCdDPiAcdrOlolSpTZaToI8 EOK5Z IABLGyN3ue2BN6Dyf7mcx8xB+QpfAVfz0/ip7gWJbnvrsjuNQbZ36OL7FKo8Lajf0mHStKRWrsfy8Wnj pI6TV 2sHlbPqBfUy+n4dUS7cvkHgNt7pqbH4H3vzhWKS9VsrSK5Nw2V8lq0Rqsg4ZBYY7NHX5oGMD8vsK3Qmp YU4zL jNuPHJsmkmPxM/eBxA3jBFEAbpTBDXWVKPlBhGS2M5LiH8GyUYwL2OMBFZFu7u20RYjxIfrBVK81Vz2N ibFHF 3YL3/rDXtW/Rrf53RFgPpzVpPf/U/oxytWMjHCMLyoF2sc51ZUIeribJQI99TT8pJR6ER8jasuthc71J zgLnE meT0+Bl1VfWeYYMMZk1lTijEGRkZvWXCvii19L7Ps/FK/iAVkGyPEGVtxC4nosvxuwXW3YyXwAh6KMSQ aHGt2 DUwjinR7Lu0YtyPaFLbtbZ7/ddX9t74Bar/JS7bFuWL3ESdQrzESv8vA/ZNdciephFDN54QkgZXHmBaO s2qaY EKozzTfHgX2k3vB3+nfzAKbKGjEMgacrPIgC8A++KUdoE4lV6by5GUv2/MK3zsScJWMgfUR6oZ3+BTYx jsGOY 11HEvkWMgq6JKj+weeQnYSLv7SFUqrpsdSb4YvTlZQTlJfDF4hyyVgk2fn3iZW+ShyvnzooX/TvviV/p f6OZZ 7b3gz9vdSam4hu6aw4w19L7c7bU1nHa8rP4vTJhCqyq1HlPnzpad4uqb2bZKzO2n0dap8+NcL5TpnnYE a6Lre qYi1pcnE0Gf7s7zqdnGqB8eQAO7Txa0G+549V/AR5wntTRhdDq2kmf6ThlxxeXyK5hqZfxR4XyYBNVx6 15QXO B2pVwf5adJz0NeyagvgBEus1Y3YVQ3qjkNOzbJ7LnY4AptxfcjmcjzXL7AW/aNF1hlJxD7f/7Wl5E9yI NV+fb 1pCLiC1B/Wo2QgEh3bBcyUw3ffC+cB6ZU1reJAYohQauCFRhqCWYpTkAiovfMMeL/B3InXG0numPXXYp NFwy1 Bse/O4/mghMO4h62WPMA/9zbwrHAyg00d86z374rxA/8uVM/5KTwD7YZ57AGN5+ZuBIbfSRvkOv6sg/3 7rBWK bM1eoaubeIYDhnpGmYKln0Kqv4gnSqxGHJw7e+bTT4ISnIYpwG4Rd0f3KcPIpE4zybHK2dah36TpIiF/ oTJhR YLwywu0P6Odd3Gx5c32ZCeosdRkpaSf/KKqwyzOImGJLVorVrl6GqNYMySP6YHRyrmeaSwOMqDhTXHZN pSuUY Ja4J3bowd+ksyVhauFgh0Ok6vrwdaoGhSAB07GVHGUSJdB3aPKJcPEIKLJMHzFhGMh0qaRhraRq66NbR UgK6U qQpkqL0f4ngEoLdPSeSXJIqQ9NnR08BN3jJJ+pz4LxlbyDHSIHvfeqOzlXuXvTuJYpZmZ7M9sOHc0b7G KNoEc tBEmamUGjp25ztywHss2x6Zp4YZRKoSpe6BqKhN9UfH0hmDqKwG1AyB8JcNLaOObXAWdsyK0wePeVnVk EuncF iOocilNA/UErnsYT+UguODsfEi7ry9b4ki/gl/p2yln/Pf+D/BkIkQvnln8Hs6k+D1rxdzm6c61t3Rv5 RNigb lU38Br+brRu15As5IW+wjXR2tvo1H05qiAM3bRcFDe7J+RAlq3zCW0r0wr+0YDv/RfmQN/ATid7vu1Nt KOcup YlaTPwZP3yL0TG/qU5nsfgCi/vbwzyio7liZbCtSs6l82lxf6e+gHE06S77LaTcEzYaoCiXweH6uMHhC EAIUU Oawuyx905087ewZIQq6HcRdlVkk6Cw1vexvSQx1Q3t7lk+K/gj7gr+L6dCy8M4pb/g3uB/cV/zS0sqQB QDGMC XHNdOMqBHM6lxo9TDsxGrsPlHO+fgRqA8ZkOovjw2Ts5tjsWumNJ4qsPZYb1Cj0Bi3QUUXPkzLMLPY1U FS+jw FaazRStLpsoH5gXah8CS0jHU2xRnaPem21igMo3strKXQD38rY6l6V7na/ewHt7H+vgAG+BDbIiPsBE+ xsb4B SudCDkQv3tAt2JokC1j7NP+DqZza7rCOhLbteDT7Wgp8tsYXg/AssjV14ZL/GV70iqQLa/Gzvgeu+A3X hOvqd fMa+306Fl4cuxXPahgnrbDr+510Ep6lpcTQyzlb8mO5+989XH6jo1pvpyseY/mA/kkZhcP3XP3TH8her qefAQ niZij4IlQi+Nj+Tg+nsfzCYF/Fd3sKIU7Vf/iE/kknsxTeCpP4+l0o6sfZO4Qc/6vpFZVYqrLc/lkPoX n8Xw+ fMxlPf5Ac/UyDfLmf2PKUDB1cNHOTGZBYPBUD9e8thzdcYzTqATXKJaCyV4MYjX+sLDw8AQacGfJLRXa BA0CP 8oKwspzqnHZJ3MN4HG5EQXlBzwuRvL77KW6CW9Xj2MmIIHJYjVVdAHQbhW+dwtRZ3eaHccCbaXngaqcL DVWjV WeBwmhlLAVelVAZAwcWpNduMxEGiSdWm8OZNxSCdbA8p4yWI+hZMOikuHDyyFJHM3oXOFHQukMTxgnec YqVbN TiGzm6jg9tk1yQOzKYlZUVEAV0Wu5Jt2Q41OErDawWyqDJzCQ3vb9q15giigpJ/Qb+F50XsEPocfE/WY UJ3JE rpgMO/1dbAS2I3d9KRzTk+gJg+SWrCmwfAG2tI2CYydVL+gBsdAb+sAH0Bc+yR8lOiGFEsJsVFXoERZO wXDoB OIfWMaIVSfR56NBfeHUVpQ1aSWRLRIuqX7JpFCPhcRICzmmYkeGKrMWGtV54BtoKVZGhlVcNZxWOx+FS BZpYq pFV9iVLUBPpZqDKa5PLVPgAfOVKUTJDNmPaKnpMVjCinikwxdQW3iLqZwpRY4WojSGnmqT1CJrLGiUZK qYJIr FKRFbVjEOPH5LtCu0IxrgCSiGm9SJOxPOQArK9Qk4kpRuMk6SE3kYr1Uj1YhUvTuNdHC8WNzqJNqCH5R ZrsJ1 kMD53DynpivqVL0NE9kXjgUNciUqzIXi2DXsWlz520tiHInUAecpx3Ace8aeFQvFgnZFxFOnvrzz6laT 68y6s G6sO+uGUfvF7mn8Yj+wviyKRbMPmc/6qWycQzvZ6jYPlFcyynvu9vmQ6bwR1Ef4a01g04jJlx7mGllM0 XK+XC Az9Us4WL5IQ+I8iDypnc1JKV7QM+ZliHXcsWntBvpFUfRn3SA5XUxn99Nc6U/B05CIduZ3+kfp8J2mcR bCQWY ayGYCSl8qvbKITzLmMqV3gSQ9MQUKCPzqhWI1KGa5nMVgKLMTPenvB5BOfnuHFtIaFrxY6QZe3FvBibM 0lc5S OS5uRqlZOITBsfDhPyXBtbKK1GSPwSq1t74MWP0kWCYopuVT2iPPhOqE7YyTxSs0o+4U1uqarsd9ZSMV aAE9p CF8pTaVM7xFG1aRTbWMfygU9Ckcz+z7eh7HPucJb+pMdpkPjEpp5Sh2N+wcTo1qv1gIfVUt0CieNW/RZ vo1ba AlwYz7l883DS5v68FL+i19Sr/VYH6s4gn1aGEXcO4eLNYCXRjjnsDbqOjan591NwFC9ctdoCI8PDyFuI LFoZJ QfigvNDNUGpqhR+xYjcRepqszRM9Rv0FcvdnZ1Cj5dm2SIRoAt+xWnufefAnN6UL9oy9HZ4TrqheZqFa ermfo Ul2mZ+gnIZhF8iB+gp/oJ/kT/Ul+sp/ip/fxvmqo4Tf3ZZ22f+DiTkOogfZlcUvhX6UoKmFH8xmJX/fz /Hz3+ 7dpPl8bj4cff/1NEAkY8uHNmYmAuNgwakxNU8c63j54jy38779K9Gn162K5sRVSpQ4RgzTt/It9os1sq bl4V+ IWucPunvvW/tc4qnxguVvarKhHFQuQOcB6KJ6P98TzlE14Y938AG4r3Sd5fdIKvaD/aldBKa72h6K/0y /1Z/l l/my/3MyyfzdNTJbJNjn+StSm8hrL6raDMobhiyRMqFUfnRfQUB4rN+bzaXBlyrgboO2h3AzQfmpXN9u WtnVs LhdRvqRnbFba9agdptvj4MNA8qH49o3cA+0Oe9Q+tBV0vP4fp4mV5wh4Ibrj4lq5pdYBhFuT3jXuhByq ITfBJ bhEl+FJxsAkaYukfwqi5s798r36I+62e+unydbdlwu8E49/FC9s95btETlqcPJPK4q5+6067mcHpdHa9 JBGSw vmBkQXZlWuajlWvKkTKpmi0T5XNUPRxPCSuBVgAXOcdQUpqtMuIzlfuEQ/wfppPZ/mq6osOlbEQzjGWY fumnu KzUXVE5ARmfgT9lmqVRvllJ7nRD7kCLUb0HuhdAA9qF6eZzt1jgBhKRd4xustBh7N8+ZudTfJmeHMdGY 5s51c G75t18khwVba7P3mnVuetKBcZTp9LR1Mr0w5ro3bb+fp7/Znc1Uf0166+8d76C6pImo3u1T0HebNmLnZ TJ5ZY RXMDXvWTXEi8B/6bplGBkBQ2IW8swn3V7aAq27hNWCQIegz7mB5aKC3C+jxS25XcNQ8zTaAnwzVzwk9H hcDmc 5gU2kWDuSbmmz2k90wROMnFoKXPjy/U61Sue4oWs6EHb2+Gh9Issl+UV7StMKtHLkI4VXiFMNJgDThNM 1Ct9S HTpzk1kKbqdM4X26al9Mtlywdp3enByeBg7MrmQmxiJH8hb1ni+ilvdvl8p/o29gnyQ+Xf7d/r3+//6D /sL/Q X+Ao4zerCT5HxDjTuqDLVYDqbAS+lj0vT0aDB3usamcufP4oqMiU3O7l4I5zlvgbSZ1DMsaT5+IjTMfH 2A6fY Gh3rq4hRVzis+yLR6ZFkyOZaVTiPTmZAtYRJpuwQ9YvMiUZCIHY0cFoyxQFU8MGTaCS6kqMoDUjS+HDf kJif+ ZBSJXgDMExuBZjyVK2ZHf5MTgkIqR5YOsJv9dZ+JGNnFhIRO3YRsn6cZUfbEx2hplJk8LHJPMy0TutWz 4vauA SqnfEOME9HmGX0iA2kiY7vVcdJ5GXiYWqA9URmRad5fWAO/FbpClWZ3WTcNqkaETxrPLSEC0jwuYoPQ6 iRKxo WImNQiSv2nOKdOryNZV6/F8CgAvdCyhZUUmJ38BmEUKnDKJ9xoFGCsVsu/gQtsNHsAM+zr7aBPkvDieR abAbp lSufCY8KKdll1meY9eVYxxUxeVOCiAzXYuo3CwJg6XDo6UjOXtkN6saRGUDJwfJsiPfNNcRZPwgjUCmv 1gBX8 JK+PgztmWxFg2RpMJY4oID0On4U9FAgNhMP3/DGudEj9KuY0LYytTbDJsUajZwYWu8TAdtvBfCkAv4m+ ZQHuX HoNxVJ6vQV+LhQK1kkrYoGNfpH33Ow6ped1Lojn60oHpF7xdbeZaHWwiA+1wD9nQp6c3IdDSlFECdjRN ncip9 Rd/T26CAOlKu+wiQxbxjgS79S1rqZz5j1+de2MK6S9d2P/ouWnzIs3Ei6fl85Fhhnd/y6/w2D+O3+A1+ h/5Lv 9FN+oNu0O/6G95jNuEsCIVoovU25XwhtRj8pDjoeA2SBYdmaB+nhbZ8tKQmkZO2oPgKQobUD3jWP7Axu uWmHM SKsKC2d6PWJFXCLvznzJ3IIm/Po3kkj+TVyMuF1pW1gi6GnAdS1+iBLdXu5GgKOdB4bP2mCeixHW4arG ri6+b r6Wvr6+DdihNguBShqe4zC30dv9LLLsi1+nH7bax8i+GNhPar8Bjs6aR6R+k8lO3NwgwvazA8E/fjLty VB3EO Qjlx5Bk3K27ufnKh+3vqEO0Sf/HCzxwL3Wjtqo/REE24U3gpF+vJ+rKBjJANZaSMktEyRsbKRrKxbCJ3 yJ3WS IbVLn6FhfcEFBtc7aO2WhSqmqpHXzGMuGoEyfSOrwCrctazymermeaAYXJk5dPvpWqsodVv1MlasD9Yy 60X1k vrT+sVlIEQKAsWQMi/oRwgCCgPFYCAwQcS/WHXYbs8dAZRsqqSniUwI7tBxUqIybtlNRokuJtKocZPaP SdZZb Zcw8hZ2rGHbau7kHWVhrqZcryIrk0QgrkWM+TCEZGP3ZSE28kMTZBN1bSNwFW1OHrQ2pP3UZ9xCj7mem YAH2h D/SD/hPEfdfH8Ry3qc4RBgmxVj8JI2zS5EVsmeZUp8ndif7z70R8PW49w8VlImumuvHxcPJjJWjVLacZ PGZXx P0NU0uOB9DthILaCZ18rfszBVqGKcKr7qjjtEA9s+GlhVp7gYT7cIzwnEBMpqQByHNZoRwJg4GktVy+y lMLVL 1drPuvjSiVKgfUqbEoqMcekyNcEcLh2Rl4Ht2E34K3iHP0wrhoOPzu6wK4eRW3EX5BF5MxEwVm0Hp0Zp 1Uxzz ZR3mSl+ileptn+TG9Qu/wPD+hV+kCz/ofuBKz6XJ/supelA93UMuk3sK8ovw00M0wDO2sgsCq1cwlOgr 6fqzP u+X1L/cCemJgtrQvznZd0lu3N65SSdqGaSA5OLTxCcd8/is5WMTvUD3vod6kU6y1lA7NDlO0r7fA7yiq 1USYZ M/4jZ7ym/5/0zP+xRz6U5unl3NgFEhDpeKyIz33YPVGaZU9J5lqrhFrbmMAUmxteiF1m0b4crzmG1i10 6mzwa pSAhuGhzBK8XyBP9c5DqqLg0jz4lrhA914joYsvakZS7J20OtYFD+lRSRyzAPWDbVWUpUhex7gvmxjtE orft5 uNtlsEtndt4/I7E2QEi+dOGQLrPf0xGtlTf9WuXX0tm2Q6J0tSmGUYQH3swdAquTIxuLSKadPOl7UaNe B2YCt qGi/rRk6PAFpE4RQj7EGiPRlU2QUpa0z+2yUNBo8p32z26cxStzds805qTudrMFFNjPRZI0Mq1NHnYOf Upags wcTQgPwaZpzkrAuJ07Sujx6Er1sGEuX8xg4hu0tRH1bYN53qOiI29/v2g1Zgt6rzu6/oeo81RjsLd/G+ 4z3sO +x6gysoCgnVn9F4Bhmhxk2W49GBzp8Wl/V1eezSv1d174NCOm8b/N+fdrzRsqHCTwRJUlBMJqM0HRzpO JV4QY 7Yw4XxnfQ6dekOLI4P72Py3OjXpmUyCiYFP9eF3LHiKE7FL4Fh2bw2Skpahio3FnruK+F49PcqLHhlsq QP4Z8 jc6WGvBGo601wHoag+1C2tJqXO/5dvmeRfbP+V20ngUmUbT9hYqzXXH713TaX+aBsbg8Ua5WclEM1XUR orL9R JW7lib93/21fmR6fmNcyHengu1WV79K3IbfoXY7C6L0Mj9FCmZ/mA6reGaeWpzJZcGHBAkE8mnyJYnFj y1FyG 3jkdw8Ugn0kc4Fey8f6N22L8YLioGEwptj6pR3VBpB/vk5rICLOsybFyZ6U/T4uGz/0EqX14Cn9KB4oE SW0T0 Sfaei90wfRiVlExVSpADxBAoPmKjeIOvzVrunpVQi74qY1Jax9mLdWNGkcR2TBnWocThX3G+xgdlQ7ll aSI/S Npyf659nnQ9HyTY2appW3dXRdC/Ex4SPxo8nD44ZfbQcbrHR9mjGdsiNOpS80z82loW62lUaPLBxjtx9 9D2sh +/LZsmLU7F0cP45PWS/NKMe8I48lANPMZkQEDUIx33Hl5DBbBVQ4GfqrelqrtjZRk+VVuwpbBRaAOo5p GMrf+ oI9HtynoPRAxcD6kA/pkiG2iceyfCluDbTgGyiOx0oegkbeELfy7jpeVqW/KqZ9oujCJ8kI84ABd9FIY emoze h29LLqKG/jwtUNvfNhziaX6NazqyBzB3W/jAdoaOYi+RKgw2x2Yrh9/F83avG3Ys9Toa1rdxuwjqzRSI zjNI0 OmB7EdR3Ry3ffHIuOcl2kItZnyYTYOaU22CUrtapizH6sczK/SIWPub0cfBg/xJ6BTkGkmj93Aa6iY9W v6O36 Xi8Vdi6cbvC1V9cj+mPdEmqAvUH+gDva/LY8792bk8faaeKaarNgnk+l34dUJUzOJJipj45hp5TZjNs2 S3k9R Jorw1YaM2JfzKQYSB/Jx+dfl7auajk1zh/cQxNHsr+X9f19WVLn1l9boZpjWonhAP+7vKaakF0odaew6 +ypb2 a5rDq4biFpeh9dbgFxze4DGL7Go214pqvpPFxEG+b/9W5T5gus54kP+qihjWi6BrmQbb89rgANv1sL8d po8Ru k6g+gwjzQzpTbZUwqeSmmhE9ENH0UNxaJMP3mj8AHvJZg2eOyIoaTL3gqRexwQpaiCqyFwi0lJ9sv6Qs y0i9H YhpLUZg4IxXTH2TzJqNDBxL+D2wlCTcp1Loc9PusXKHBaUepZCzmVeoNN312Jbuk3ObGbNDAJmoy8Vv2 gWSIG e4azheYats+LDMHojE+5o1qbMEs36/TEPAIQkzUDMSqU7iuUdW11G2/evX9yst+dD1mh52o2sMfvxjfV rZI6n LVEIRtZa5kV5E+K52Di2y4Jc6cuu2WJveDJxzYJtZxYalJjiW51m+mVcFe5fyzQ3phZJACGoJ3Rct5Ja 8RHx+ P/kjClKIhHFDphSqpP083LTBHjuQqWsvdeS5fjXPXhw2bAD5ohm0MZSmvMxhOBRG9aiB2ka+gFN2CfeB vSbWl xji3/hASg+Xnhg3QmvRUxHG45GZsY/YKO47QDWG6eZ7PEwAG5J+ixfTGSHkSWoeVkBXBXkqOoIJHWY7X GMkzP 8ZVxhO0CAW21N1mPn2MXc3btkuiz4Ds3FO/MJlS3cXmwzC2W1xp5GjY7dsqXabclS8iT8CClMUXpa8q9 25jOH 2YaSUV5KF709r41aYLd9BcCt5s68ZLJ6Ms10mLHWw4kFZTxPWWVbovSOVetx7VJ7IaZKAAbs1cLFiee3 1qH7T j2GfoJLnyCHKePFCfsqOcGydqJg1Pfzel+FxoUXbuIOBgXavGoxyno9eKb3V1KCr2tMP8EUN8OCKnsJv MCMgP fdMHyB4wfDKwDNBIta9Mgy9trwvi58afhrXupRtZ1gQgrplwoukmBGbV9iucVZxkPziwu1ThW8PaTKbz SZuzY v71frh7V1zt2SxADXlHwCL3jtuo+wOphOA2L3gN9Z01flS/a2UXLd3poMEx5G4nc2RJ/FMNtmXSgeDqZ FIbGg +9kVKb+2S0A5Ulmwx5yCrCebtpd6IEgS6C2GOnSnIeaPgWc4BelV5JoNmWl3FkmGab9kyGBSRzm8FQnF RBQVq 4ygHOaNxhlvqBOMU+cxCfFtfcYCEGIgyX1AYsJtWauIPQoAsl9WrRYBAqWFCQEIgMivEcAEOoaL0jF4k CYmbS 19HbhDlsKBQT95c4CSGVkSkoAkmlG5w1cLBcYPUZYdphEUoubX7pJCFPIMh4+MQoAFK4uhcOoEGpXYTn +dcrc tYryTL76pxLM+kMW7GfY/l4QbjIrtaatjcFV+DgIdH898gpwnND/npQTOxVnFLTNIXELPpC+VxmUAy7X PNrEJ a7rdHfo+40IKJl4TeQzQnTVL/wVRzAVdufvkGdfJbAZy4yRDd0Z0Ax2T6Nvlyp1us7PRGoD9+jg3YRta t4k8M 7ABAQRJ1X8An6Q9wabhXdL9GVbzQEpJHC+J6J2LRwc64b9OWTzcelllSWP1LfSnJXh4zPSnC/sqf7LJK Z6U1l k1HDR+i0Ys30U+Sbek77MKF5X1v+UKrvgAbRLQDmQCmhPKlW8FHLmYHJmIx0QgSl3LpNgeFyelKgtIcl NSckH xK3dJKxOhSd1NC0AikfGbQFSyboAJw2kG1blPE5P6RXH8dqlQY74BbWPDRomC9Dtp39osaMMtXBaR2HS q508J SGcSsKtAax9/B5a3IBX+X7+aty2UUtxKRZy2psXqm0lzHVuwq+gZ/UcPZwf9+qO4BFtDBGrZoEaFQ2zL UO/9L r3PURjMl5Glywo0kWzTgZT/MxrwzSuZrPsTHtXrSTlxNYRfODXTDFeYCbQZRwyu0NPM5aOhl+lhVriK1 UtWW/ 7BDyDKDSEIzL5jkdUl7/UFXK/yQkjCzv9tOWGKjF4dB9oDpSw/Pt39Jxvyvr211pup9Sg+/66bbtZrg/ v8CLb wE9+ERR4mqUgpXJYCSf/6I73QGnSB6jfbi7scIeBztUQCmfzVNkP5O1UWWlDkgSNSmLVsRPfjHH9PIlt RVXpN N5nnjiNdMeNR/4HsepBjxIV3BEPJomN7QowXsJrzWb1u5Sb7FOsAQprRwvjzpcGJN8ibyJGDREcpV+4P XkaB5 zYt3npEmUBVYJ8caJjzSa8dt3Ap/VJ0Sp7WgyWIS8vWU0Bm615hwtxawYRfD5CI2mVuZdFU8lzi4LN3S lILZ1 ksls5THJzoODXuHj4Ak1jpzHJwHPvgysSU6vhXw2JF2nveJOPIT69i4NflkQTu6FVm0UBON71XyJzcSL ujTpI M+ZRNWzR7SQjMi8uBeck/NUnPAkVXZv3XEkyAAlWfMeYCPiadtjDOXDdAIsxbXQt7sHWHAEHXRXoNGQa sAYYq xLuCYg8FKEDbwKHI3+bJ+pcInn+sSe3o9bXpNrNAuyoa5nSkIhdOrwnc1JkPLHoum3drW+XaeYsnxFMB rglep YGvQUy7YO+ck5xUHAK3inGGLZ6PADER2KK1mouoYBcz+3e2pJiG4OIbMdEMAoDUHueA11P/x33SwiaGA YA4F0 Qi+ow9oFUrv6d/QO5JvbXXkiMFH3eG4YKWen6ZUsY6XhlWZHt776YuCwuNLWto8k9bicbjtexR0CBt/d O/uPe kft+RSNn/u3a4VCdQ5E7tiZWXz8sreX2n3tvfPWoN5ASDMDDeHTwwBIH1wJ0+V1W/poEYfGFzAclymX7 +H4Xm /LCuymLO7aitY03fIgBRQB3jKmrtrJz+z+VwXw/rbO+XYNNM3w3+LcfurkmdCHwtV38jlIs/vmbH0Nm/ W7Unp 3ClK5bFKryTohA2ls0leWq4JqaY+4bTlEEc1KDFtNzjXFx49O0yw5A1tedz2krrh93D09PNEU/tDp8Bw dnujS eg2stknrcz2HV4RBzfFvprGPr/lkpDifA5zmbKElCoctvRf4yJK3hFCkyWlvc7T4M+Jejb+su6Y1V0mO RGpxs cIkk6zFV5ORXBQHVKEOqCwxzUfnD9hRDz0PrgHf1BXk6zkJYrTRfmtYxxCxGXDpXz6sp3CTqXAW87HQd 9h22F xUSowMSorBhC4TCPQhPKAxc2TAq5zymESF2KjbvbQKjIeK8HsaF1qV3oe0iWxnfPnYwOJgSLXuch358J 1RCpV WKToT8B6kB6zGgEhKaz6pg6A6lkp62xMI1pFPS97qAAcyb2awmtVY/FwF/Ob4ZdaRlIArztqzIGQi+dw OzibR f2xI33imDBBs1kffFKvzw0CulABlGA8KRT9UcloYJJBPsS8F/ZNBa03f+z0CKQUP/PpNZLKBpnOGQ0Kk F2Slw uL8hJTf9lZZrlPtyjHUdA2MzxiOVGppImBbI3NcF8es1GQ0avcVnao62ksalG5H1Ehl4w3WmGn8kv2fh O6fpt jhY3eiKOkrIXths72yEks+FoKiYWEg4S4+6HjEp1dGToeRRQpv4XqGcF2xPLeZbkuLOPsR21TyCOHhc1 I/oQS lqpHKactwfFEPGYI5Q59MrWE1kJ4aZf5xW29GfX1Gj5pwWC2LJjQsyxuq5Caq+jNEIsswJEFOLIARxbg yAIc/ QvIpPXn8sel9eEpNMyELuiTzxXuxTo/89D2k/B8+uQMLWfMhnl2F47v+vJti6aX2O/JLVfTXq/fuiGdv dbspv MDckO/dUM/jRswAydiatCExEF1UNJBjYRUQwtymOOMYkivhAhmfqsjCcZE2l6PE7qT6HjtgoAyoMyves fZ0PO seRZOlH0FvohtPrpgZCa8JSpH+UK2jTyvokmKS9HhNhbQYaciAI0tdlihEku28zeH1HFqMM0+iG6wO21 3R2U8 Vo1xBlEHBFkEO9K+Azjo2vKwqtjfadx1qXAM93r/+bcoAqy4tk2rdNwkjUv676kR4gTOru/I4rDvIvLs nEPkA dUEoHoGbN+R5tAqpyLbRgKu9dFUYtlajGeSD84iV8x4Ji4CsBnXTAYQ8T91Ez3qFrt+vfQLsyar4L9i3 HwtX/ XBPGaEIA7hJKZvMIZtQlLOuI3nubnYi5BV2imND1oGly4V9fXEFY0nmSJOL30Fy1JEQzh89OJQdo6Wxq jPweH zGL/HJc2sev1lMzw4oOqLBAizDmkzWRCDbffokzkZ0GUWW9+79XFGmzVaj0/y0Il+Yu7p9075D3McGRk jVBDB UYnrdmTDodZq6awBO//i5NX28icnoJroFSEBm77Wafhu+ftTG2qTPhXBrpo8XsiCHLv9PaMvUb7QTbn9 Glg1v n5hoOFDGs5hxlhvbQFqjajmZzg3wIOSRsvaLcgT3FXe8S1FBthL++FIpiJRS4pxgxXjByQwiqxRBCVIX kpAYg onxbv4asMxBDrPAZmSaKOugjTmdEj2Mm7ZFGFonOJBkhvFQh5BjXFBItQ4Wr3FQjiBivGzId1hcsGwTy o9o98 0qGh7lb8hF/mEC35OX/cQbqubEqFHdXfNY66rHmk154FdEdtQOsu7D5F9rG8TMIRyH7LrTqkCSo3a51n TyXJh jcrUnoKSFydP1WuL6mj/cScPp7IwfejmjTyJkFQpdPYQibEwP+L+BrHRdUguznjRykFFKycVLdTJmqJe bOD/m NnZ2cCWAgOUaUaLF+KqP8cxZvEhMtZTUNwPl8zRFoenER4iYUylXpdlodtDMnOXTFNFJqy/Qf8bihQmB kQQGp +CxR9MCn5LZTD/TY9FNFd7gHtXG/54w8fjPF/rbhiPJRnK5Q/zy9+v2CTvygtriYNDwhahLMSLMCv6F+ zZ03v i2y/2/cFIRJZPqq4x4huPma4NE0pa9c59+wroKINo1KCGfejHJrQ4ISAvvrHL/YqHqKh71+v1C7u+dnL M1zeR w1y16Ocdis+ITDrRxttkWyZRRCtsDUWwi4lkgXOu+C/d4Rww0EzYr1XgKnnfUg/7+G7U75aoRA7B2LZH hOCcF RkiT4wSDICZGa1aUXZnpM7HtQnVUIq5JIzpTknpT5K3HBzREIBXgmWnsPOubQYPq075BYOb9zJMpP9iH Rgt8d 9xnS1glGzKknczl/c0Q4dgyG9iBa9jO1+RXRkJvgMG51xLa6QHpSn4Myz/L5VzG2ccHSQ/HpProM0Yw+ CggP0 LYyK7t6NfIaJtVs9YyTexXwykPO0+W74kFIkhqDcAdsublRBFcZwr8PpstWJ5dkCiZlphApCM1lO4QF8 AOazO CaHN3s4Q00S7vPReuvrF7ikceJeuhVcjgxHzj8inZMquWbz1f4KGiBHCV8HqmQnKz7B9c+NF9gWnCKWq zxyNe m7P+HrGhpWtmQYTb+CWdpAAQEn8TXsl9M1szlnUnd5/99a3OkN0k5pJu7XQjjRW6Q764F6ubfk7tUILa WT0uK HWprs6r1069E2b/3MbxwM4+v5vt+SqH724NR/J8OUj5YoB+gkoCNR1emvvyGNPtgmJ7KOWi6kvcvublz TWgma 7rXyroleHLx505gyfga/fL/dc9YDSaoVm3BYI/8P9HZFPGGuxAMDpFbznW3F4CEceXxrSCB/LWLXiHRo 3XCh0 v3zIoep1SwKkis4GeMcgZj5WVO2rJ5/VGw06m+AuNsEH6Kk8P1RGZ+GBUN/4kXdGhEm1aJPfeJAOg8Hf NNy+m bd6pbD/6+x6YaPzdWq3Bhdx1DhOo8gyQaWcXNIJ4d+NYacAXHGMPbS4RcWJMgdtMCOA9orcdF71KgKmU awPnE JJLDkhojH6WuAXSKu0XnHQIV66gWz2IO00Q7bUFFzYEYPq6ByBMH6cscIOW9zNNoVrdkStbXlnWgvMeP 4QX1D vSPjwA/ZLiTPJSg8E5iOO+JH8B1RY6pVAukquSZP9HkekcalsROcQieQe0WttQgJuVIZKD2q4jbHmo9I 1RkSj slzGziE90RooZoBuB2S6xpHiNeGR0L5IORo7Yoc3Mre8+TEP6wqFJsXGSkDLsqyv005mXweQmIPnMagW idsoc AmripAjtfZapCoszTKGg7inWIntCxGJTlPLDSfY9Iw2CITKXxzsf3DLwTpMvpoYYjrIekqfCwopS+dEc DKbz2 W7VG/m/L3u3CV/2p61YhHAtmScT5lWXzBjrqCume7yIPqKCCeZ5+xU0K3g7RtiSOBUe3nnyF27Jk0EYJ erdDk XiXz/VaEUu835usefME/4nO1MziedaJSkg+yy2pT5x/kwQ9giKU3DNYv8f35k4IL15RpE11sPv/NyvxZ 15hhE AHnm3VgewZtrs43drkdJiF0kTtk+ZMFH9CqBymJdKD4fzX2LxRwgwhpyUlJeJNYVGd17FasDCFDKWOn3 4j0Rk xbB8qFtdquZywy6RHanha/BHNN4t+id6MrR0BA3oR4bfZ3/f+WlmUdNy6CAHJ4WwQXcmQtUcGVGKeKZg cfKzh zXS3CzDwj3DxVqcwytRMJQRKBi5wBEgt+V0zVSyWdge7+Q0rRDasexHXLyfne9jwTT80tkciK90hL+Di 0gBCc lIdnMz1T56ffaejVLqJT7dImX1rbbgUNfihbp3MCiYGxWjH1E6aKHn1GHgoBscw+ZvLIMLhq99q9+fPf OX+1o aRufGgfb+xj8cO9o3720GL5gNeq9Am1c/azu2MKdCx/R2kzfPRxOjzso5rfbvvE2skazhHKBl6l0/nXm z8AeV zONHZHXvKIZfwpa41AFUiKATnKTGerOM9SeWRYfarSkjmMzc8xQL0PjXfoeeYXYZoiEiAduRTyioFymb YTL8s /iqN38jJ2jAAQ5CDfJmqYh9pFV88zFtquZX76+040GobDvu0w+SxRc7EfEfmuUQee2eHrq9T010ezoU7 d2SLE Vi+d/pofgf7IJRConAcM+D+afELCPQGMOikD1fSsRA0QPzBQDrchPBATgod1Ah89FXD/VHqIcRqoF2XC 4aZJx dzi3iDEn3SUpTBTSUCbb7g78ZSXVM2YUKun6iJlgAu19FHmXdSw+gadz8Okg6ZfpgxYx4rxal+OTLlkX yzqva xEXUint2vBuuOsP3DZIe/HHGbmoz47Cras6/uXnZkdFZ8rp7BgQi+Kw1aFBSaXri07dbHa1yqM1ZSJNH ThbSn XwZTsbiUXim8JcNggId605zW5+3dtLx0EKWGyjc6v4psiqm14UNNCi1oBRts9suwIg4b0d2QuU1TCkPW ZkGmq UjODNDzv5gVQifN83nIWr1juBIRDM3DC/aHp0KIxag1tF7oLacdSaUoGys8S6BZfc4WXmSw3IGgLSVjx U+IO1 Hd/C2i5Q/VUlul1A1vgePW3SSUVCKqOyYVSHVXqjlqXNBNnBAT0Ok6tmAOr5UpmwfPgWh6GkPJ+1iXO4 UzRpz IwKxOhvjg5WSMWbjHnxZPWvie5rm7nI30KWdDMknUjRLmeo7xM6wmSbrvmeJC+c9cVwNEg1dkJw83kkx 1+SK5 /vx01Q0pronfgoapunIQy5cDSN4PhzrqVwF7LvGwOt1PYPisWZrVe31yRYBLxSqQX2byKv4JXP9x6JBn swR6e TDSeJIBEXzMbARKpzlwGoSyVda7dXKyqoLwO3P+CSNjrYq3aDoLYtC+TYQZQjUqITUi0+BhbmA9mlM1N M9ywi DgMVoWex5cT3IUmErcJcsyv5guiMf+675bl9nG+2OZo7U4wqhhBk0+/qwlNTF1DvnCLN2FCvYQ1o1PyG nxStO zSpHOPlMnVU53XimRayBlG5ya4oWBQaldrpADvY/5W9oFiIvEN1EfvIC4D3JlDgClXxB5+QIE7HLAW3F oXBI9 A7Pc6VoEqs2FHtlAvR5ucZ9u0AEsTmnn35k0ohldH9/Bt59Ah/Tl+f+Ajbix+EY1/fnq3u0Mt+BW4N0L /xDgC D2hN7Vxp46i7iekh83HqyS+9+5uv0wknZSrjbAXC92CLaLoaeAfGMyfFwVKWDahfQelGFPFBeP0FUpOw YHoIt gA2Ag+I6ZDVySozI9We3yJ5L/xW5MvbkUm9EhAPBkdYrC0DiWRzmZRuSl44BMCwyhWsA4pCnfa+wNbAf wIyoO ZpeNftvqZMgAVWtA7L38REiUi1suiRfnVE0Id7zm/HpZIIe4BcjXAeKqZ94Mw+BA+C+c/93ZCmHLoh++ 7hgX0 WO4nzR8m06rlzEa+6kqY8zK/Ng1w0ToTcy8wy/ecQw2L1ze+j/fRa0dUbASRzwKHa4EmgOg1pWeuoxYV RaIUL YVMHqHuZDdcRTSbtUCRDdTSCWrgUjW2CNFtOVyD1xvIlWIJMdlDNvESWYELpcsGm1jMfeWnq8vDqvipF 7nLP7 tOLYUje324z4sGboKEc6U++e3+5rsWPwFawJvi3gIRznmt4dKx3xwXtqSJyLw1P5ss1pcbvaYBsPjNzK hVsro 5wTUu+yRXPIk2sO0LoqWK2oU86Nkoopdul1EuOqKvbSxmoq0SvFa6GWfW4FwLLLgy1q/aC75IWo55EhA 4q/kl +EME6x/o3YIzlc0YU4R1jJePhktdKm4q/x/pWW6sXVjzWLt6ynGe2Hkd6XOrHxxQeypC3tA6jz00UWjL 41a8s pLXvTeWLCdTtQrXsBLxtlN2yBIc73HgGtAaMN+gnfkxn+e5EH6zn6ngNouuDyJ2+K8g3PlXgY/BpJS2y QNPdp 9n3P8pPgpTVTMv4i7TLKeCgr681/Pn8Z96jqlny+c0+KyG2pLyObxTeVPaUo4v9dV+3SNsa6Q1Qpwryt wXkvW PnzUAzZQ3EHuILj2JhKoB0BIajZev3T0dFsGj7+OpqAky49I4q22nyfJUc7L6B/wDzrPCbZuDOotTGT9 TifW9 etfdw4b6x1k84vZ94f0ZEHXhDzrJBSI7yknPD18zr5flXFfsHK3++MIDBVKJeVmzABNlhezpfnN7ne6M DfH14 xmNZODjK4ZQXrW0Tblb2rrFHokwtcb55LmpOxyt39YxZDAIwZOOw9PTuot5pN9DWX/G0PaVi0Glj9txK zQHqr 8xpIRYntcNr7dxCnT/hPhGnjA2A75doniL2Rc5JtS4IAKs4xtRwGHWnRBCL/ZMZTGgShr3qanhcbdjcN pVBlV XfLO3TVeIn7jwO/3SJda782NKVvRhuLfCV+DeyEJ21+RnpKcWoqCZjjFGVfA8Si3tZ/ZnmPt8wUx5LrO brY3G 54Sm3l/ibpo33he45zOCA0TO4q9gVwDD2Csn+kdQgzdY9ZlE/xHfTqut0874rxIfG2dmpeM3N7GqJcF5 Em40F 4Zpt9TiyRSfRae7qSMz/Z1tkI9yKmpDeSB3c7TcTg7K5sGw5pFtgoNN08R6sws2hwxHiNInHbJ0MgleT RU1/k CZ9NMqe5PLyvqfc5TU86DzRTNGcQUjUirunlz+UZa4m7C6FyXl8+bP2b9pS2xkq8gyDC+rFuVj2Eh7E5 t8c/Z vK9w9jtk/RJcr0xttXD7aOibylO7MqDvF5Jg2ZlPR+YyG+Tx3fYjoVQ5ZLj0sJBuBA2610our1neNrtQ leSqz WsFliKHMO01serTunUQ/9s2TUS7hG8ZKNz0BVijLOmoiVG557af0jusLeqqVZfjdbNjt/FsHJP1dH4sW 7UfSD OKTN9c9GRPo/sS5tegrfBldAb9/c433u6Nlrb/ywl5yG3neeK/jCH7t7E7E8rSyQ2IN/zqseP5xpLeGk iPUP2 pq8WdTrwBXPOmMstY/8DAhSD5f+Fnh0u9saHI6o3a2McMrMq9gn7bEf/d8aI3RC7/ik7rU/aEfLW0U4U Tq380 PBmAP5un2J0K69yarcwQ+Rxphj/xaaFV0hey3TXLqPGtoNQEw6S3iJrBwWKqY3w+9eph5ATV31v3txyn i9lqX 8Nfmcc/TMs0i5d8ay/sUl7FtlMQq7GzG+Hr2k9cPuKmqw0o/67Y/qpWU42rU0hdKhqYfAWj+h0XAlCTc MZfwS iZDbheXYR9PVOrUhsmXxAspbUqKymt6uDR9uMr6CUaDpoM91lvXeK/az+mSv4AnUuGbUIiJ81S/fS70q q20Ke nMjhiQUbrBb33pvTICpk5XnEE+9Wcq/CHin4B9I3ynXzgOQYgwYYo0qmUqtC1lOWjA8tBI73LhLi5vnS fkE2w XlNt4cvVPPR1leLhuObNXMS+1domgeZoWse1TUzXRImq9bTocB/FqNcf/PwyYUBJ7IJfiDa5Y3SUdwMK 32MJj zj3K+qcM95q5T/2+yBGKA8U43TPugZhcoNX8Rz7UI1x0oxE3RYNnm8oEOJjs5BvBY9ev23ZFbZ9vqLKR w6xno MVkMZrHKflTvcG/KTPeIIwqZMfzC7UEL6pKQCUzM2YivZifYa+ycuDINnm6PkKnEH4d49nZ5m30l0A6X Nvh/t QqLxTtNo/jsw2H5iIdU/6O35vX44Kr9Y4/mldp37NBiKH0kX3INf7Iqd5K+NVPCi2Qc3HcmTGcdcBlIY JlMfq ti6Hvbu2y/q0SQNKtBh7C3ZVDdxOGLF5wON7hK9cR1Da5+oKQD3A6iX29U/6H8U1twOt2w2S4giWtHWa 1+RfO iNL5reBslCFAQh75sC/xZZa5gTes21O4c+Pf31G74FRDz/zFxtBGldhUdOP2ZdfdKMTizE0HN0+pT8x/ iU4zK YIKa3E5HHBfCUfi3tm8OaFVcwKIPNx+Lva4giSK0NxQ4BVNEPyhWyVwaWAvmSbA9pdAW3qthtYPXPy4n UvwMF jXetKZybSr8f2Eq/ac1vBZZS0ii12ca2kKYLqiEvNmEl8mvZRL+SiTAH+xQcmX8n+IZYq/R9MTMX8ID6 TAa4n gzxfy+HBJf49yB+m2xCns3rGvGqth+NudmCjip4tDt1rnPfXYiucKFdSts3z8VudgFd1RD7ffMSR+d+/ MAfre 5+WUx4Fj6BHca3poYYU5mHTcwbjtGlslcw4GzCT02UUm3DI0TslCApRmBe1JY3fmIXDmADL55MP1L+2B /CmTL mfxcgjbWMsyrf1NTKi8XZ9PAHc56HuXlROR4j/Feyj8Ic7MsCoygeconL1zsTW34QZcJ6Rov0qJJPyV5 T/BJe roWfJo5N8oVV21xvuAa1AbnVlIKWpocfncgKyw5hWv47i8ryoEpzalkFY6pp0BpEtNkggVxebcy+M/GS 6u6AF Cz77S2LK4/xLJox8RjZX94hanRYy2abV7oLaXg+oaQmozfYm5hB7yKrRPDgqvZW+iSrp6KC5io3UN64m Dx9dy m/fsLflvX0V6s2WWJ3KFDSvDBNBt8QiD3MN36t7HAbCSKn6Z91yFkpf0koEL7MXulpS1nro8cF9gsquZ IgaA1 jXGZQu+MlgXaPtYvQu1hI9E0rqC5Lfcc6suVc5p0mgq6gkjPV7rvcxz4Jf8WlTQvYUJsARqqkqNAsGMI Dml8z RM/roikssN0cFWHtbRhF09ueEe5hcZSRxSttqke/SS/90LemFj9ix/a+50aHgqPRUVJRMTwSneJExNFQ HjEWN KEQMBBclWFOa1ANuOpSWCTcdPJqYPPzQ2YwZlUnHcy/tEvmxJRIrKFuCXDyHOPAWMvDlca37/Rb+5yDN 5cAne kf3+vl4wxvU4btt64dkvSn3K03tybZwHrTqk0mLLQ53nZiX4jfMjJ4ufl4eRjh3jKYOI+L8oKxhbVk67 zD/1N TZXhqqpaZyEj/3SBQeDYRoxJ/lRzmG2hEZw8UphRqkFyTUGApBRku0+bqihxRvYlITI+4Wc53/FbOc2z hjAL2 w5pF601mOsPC+yNI2HjBFIeafWUdQm8S8mE2vH25c32r9kQB+abliM87UYX84MWOF87/ZGGnGO45Awn+ Y/BBs ejbgbmkF6IlWcVfFp1rHyRhUAf9/Ko/hP8/4l/yGJefkI/ypJ2x6vMyU9eqHgN4nuyjDjQ9Klft2GfeI TnnSo evuc4Y+ra92PBl9wzqT9f1lq893dyzsCVeMS4uq8lRmQbnDcp0+s/AwWj98a3j3heo32lW+i3OjkMz+C vrXOT HgKHp9vtN7EWhogTG5uAXuXoxSWfmwmgVooAldyuAEVzuWTi+aHyg/804OEtOQHS6o9oR9Plz9Xstaf5 2a5F8 gx7O0q9guv0Z2Wi81zP2pa5rmSTblwjpNn2FSMKIMM8aHZ5F7b6ZOsiOGylNuatNTq2mfJaNBstbJUBt W/PNG AAFB2NU14GF/lG+GrLs+G2bzywy/9vy67KT+UYstp7MXDiIPVgzLoa661RzUxcMS3Uc1bz2ym0RM+4B9 qKUmL NFHvOp6vjGPF80vVxkvmtOC/43zVscHPWvc/Vr3rmptOFjmFaRQzyl9ndjf9e6uSt+/TDGF24anKQ69R M6Gx0 8RypSaq+taKd+mX5i6zYRa4cJAKZa1sQJlFf5wDaldQse8mIdoNrLgV+Ta+M4T9/gY9rado9mem5xZ0N l1Ay0 l6zehDwk1gDQI/Zx950dGj6vShqZiAxLbGxj4BaP8i1769QcWd6xU04WlMZ++HhoAG+LdANjwV4S7G4r Nf7jj Q5QOAlmRblHCzAf6v4t7L+Q7y3QvETDcUWJt+kl7qpNG1xtVhEmF4SDgYu2aSuarrzGj54sq9oMDeoOa t5iGR CvP+E0DOr6TWszBeWU1i1kIeE8GKBKNct8x8gQnEv6APGnGHkH/Y59Zp4aVoQZhB3+rxou9ZP7WhkIjj 8q/Lc RooOtMYzO8kGO5B26U/1+uXzmGO1YQfA1Q9tCS8Zkuedx0ol4lXm2OM6nC8TPWZMdeA1N+fIAGx3ds7L Ysdg7 VwGYLMfOUmKbDWrydTbFaQtT7JPfy9VXNB3m0lndm8mE7QTaUTjhH9Z+lRWS3K8piOLmnj+SrEaN2l9d WWPX8 Z9ljuiyPaIphzzT6SA6/p/CeW/fEW3eNe26DXykQAN4mfoLep3H1tv0DqQmWl53HquOqfHHUhKumvDgv TncR/ Ar37legm6CUUwqg8xPoohrLzq3po0+n0NXCkqEYBNmV0/3IUd3BhzZsaK+YalubT0Fn80qLfZvtk4woO v570L 375FgPeuYxTjixmK+2o72CTpOeTH0a5yObBghuYm9iaFqdWfHDe6qdZcBlUArYui3+XGQrP9HZzS+dMI I+l6t W0SYXI9In0phuI869KEDyp1c3Fb9np/yDOfbj4Cz2xua/txwRO8PIVLGq7RMblEkiix9DCQjsst9ikQO QpXuY 9Ws6ukFTuGk8/yY2hm3Lqcl785nuRQc8w6mGIajWWdBlbvWQrKqCweM2vmMmcCfK7J4K/ta6VuBgV4NH hrdGU n1gmF3ZGe0xNrkICW4ro+N/IPPfmzN37rcNTKxHrpQ+Y3H1nDnKeMdup/lt77uzFoiH773rX1zKruI/r 7Tw91 dG/k2MW6kD27U2/o/PgomtQt61qtknQ7Tbhv+1dFSxBVamM8pNc+gTx84iR1pj/AP+ItggZYH9g92za+ D571/ ah3fV+LzZkqzw/m+QXv43riD5sMLmnqqRrxwAdAvfaAA2P47Mu+PomXWyQqH+va/K4s3qgLiNaJMX/B/ o9UH4 blB4jEEaCn9YOK1in4AIsr1wi/Bb/Xgd4NbvCEbpe9HdIjKdhcBrYZ6X8BJYXuyNeIjlGbd4F9TQbT// h3Epf elJnUBNvkC++4LX9J96AxDq/WDpqan49HfCmuAhriQkcWj0iP+pU/mSvW47e9Jv1niHxss5U2UP2vd/R 1Shb1 WeJrPrCE/0jJskxErzeNGM8M1IuTFM4zQR+ATB0uu/zZrmJMRq1+pi8aVa0tBEIn20uUjkMK/J2X+LPK aP8vF fm/kHD8JbTM0kZJI1tF2gS/8Tyxc8BC4KOwHaQyZWjPdcewp53/mG+hIFcTQC08gjheyE7LK6roo15hm TJdjd dRMxLnG36UbDI/j+QD9YW13umNArXO3IppLA4LD8PEcRDlZqoj2vFXPbZa/Gx5ssIuz8455zgAeFHw8P 8l3vN d5/dOaQbHjhoM7ADo/ob/QT1ShhxjLlhgVRsZzwz/ktO1Nztuz9jMto+z4mgHQ7twjzXw2+gkJE2emsk WhLAi 2s//IYe2kPeW/oQDMqxUtvjvaaB2ZVOi+SrQKWgKdWmPRaIkume//qONH2V8niTtW/i/OC+wOI2YkrrM 9fox2 1XuiA2T5zrhMw5vQiXlnC/eSu3gtJrnyJjIx4VjZG5XXMjBkDF7CxjMri+JxcswNlDNloXs+BH4583o3 zyfmV ju1U6dcc+7Lnf86wkdVvm+cv7LO3kBKgf5Xyk2Lv2VByruRCjQ1v48vQIoZ8+qjzGJ7H/bYJB6K5iTDT fFWyk UIRORYTCZToNRoghME4jRXLJ0S3bIFxvR4vUGhUab6fyA9J82qYlMJ9IEll2Xekm4W560cyPDhpgHPye a2uY3 3bS9tGIXUnoxN6uEzq+8RyviGjteo5dJgxeWGCI+K3kCtQ6Zdexj7fVtnnDcf1GN9OIqK+H/ncYp+L6U 8gVPM r4yyJ/3EiPmUnxzZZ3NBmYrp4Dbk6+Kd3UjCNz/FPZokl/G+JdQbZc3nzaTopeOzi6EXsvg2iT/rMrGj gq8U4 6n5QaGFwXuxQN+iWh0coc+q/0O3lnhG41I+WXgzqfW3HWuGtjit6Ux9oJ4jnfcci7pqdL62FUdZk8AqZ f/b2d 7Q2naB8AwCe2lGhLtA30ZtCVY7aUE0a2VlX9cl96iVmhe7zS4S+rh2/VdbTh9Rl7EOAjzqH3ab/4DkEn eXgon 6V4Xzko5o3lMjoisqoW9u/pj+uC6kH3fBlhEgZ+Ua6nJz8wDiShvoDicVK8bglqwlgLi5CtvN32BT+2m HfrXt QadtTzdBLc/96Z5tR0e72ymDiSt22Dld/nhik4c5lrFGy7k2DF8J8GDi5Pp4yhm/C1kEkaoYoFnK86Qr o+f10 GK/SXcl/7DcyMjhuJZUXe3TK+2w62na+rfJi7jbf3Pc3YshE68rou9cMQxs8lvfG2Ngd7Cq+4sm5DobJ uqT5Y H/I4kME3dpU1/jv/vOOfe+RCppGlFCmmQRdAfVKENUdRp/r3FBHTLrpXwzEE7x4vGKAQTVccs04R+NoK Umtsv xdNb0zqqjXzZhOUZKw3xxzvAfa4ld59krdk6eh84QY28S9Ni0bf/28md9eEYO32/v+pV35NM0nOsxd9+ 4q2zh ZbAL9dtNr4Gsv2cjs0c7ulxvze/uyp7mfBl7GIUV6Dn0LkMCtmMwsjc5nZ63N5fq4YFi8xhvdlmzzk7D zXQSp U2unSrgr50nI0E6G+LQh6Vb8642v+2j8P+z00ckfrlv6jGbaGZV+k4MkkcXqm9pV9lXL91CYfxRor4oC R/30/ VBqY9Co9LfaqTOynSV3ganplmRK3Ao8LoUS+Klhiwy1t1gatK3FJFN8o0rmQZILuzwslNsQyed72a8hR oH7wf i/NlJKhJbDY578qAkdGgssb6uHCnv9Us1puueJArNebib3zvMiHoJfyX9Ow6L7LoPH+EDkAwNdww6bKy oZi3m b0wuB4ymQtEZVZgBDt/7IbF/em/a4/Qq48lz70isWxin/ZpdU4KZ6/BZYd2hWy3K9UN+ZTrFlIUo3Mlr 5zA90 pBlUgzkbRaoWTpxZXliIWoT9A2AIm2gwnBaNhlelH85O5+raulWTWNjYgGMJgcU4w0F4Tb2GEM2GNmPI 3wZDR AfQz+3Agg7Uy8jyPl0U4su/SSPBv1O162JcFTFeCp5lSHL76qmCUeSSfCt/MCSqWQLTxh7UwERIH+E4K WUDV8 W22QPnnJ8+K+HzXx+IDA6ZfoFEaLLBna6x+E2Ao25Lbx5hwOOG7mcHmSBAffJVBtWDmReD91t4bjU7lr t1Yij 9KTOE7/BtwPgP/g+GmtWAT9+Ht+uzo1YxWP3aRvJ05fOnD/1AWWJp3vUnSv3CzbafTEEyljvQMbxdGe+ paradise+ sPhpPGA7ShdGhsXpcm1fUn72RUUqnq5e3Meg3HUl9c6Xhnulb4pMjfq0cdpNxsZjJ/vOMaYZ+azj/qw5 RhXBp XY+BSh4uS7/jMw9Xhq0f6HVXOrn/8cY8Zc+OWN9203prnfi5oZFqrD6Dmr5Xg092QyXp7oDUrCF8p+Gr 5Z8GP L4e+490wx6Hvdb/ZWbC3ZE9wa8zi2M0vjDMFwWnVkZZHdUmbWqPoWgfvBoqcu2hVDuP8+vUhewn8/rfp X6Dar aLHbedq97RdO9sQrwfL/4Wy+ZBDr0cvav0I86+Gl7Km6PcobtWF9HPIl3LqcuVk37X1Yq4wgwKEmFy5V zoswL zk4TexF35iJ6aqJybsAt1ZZSTim/e593j1RnMYp56qpOQ+0OR8v42y01qRcj4A7fvOtc0Pz9razxXaUs 0kTjV 5tGE0totl81dbyX64RkKjzjhgxRwMe0H7r5cLwTXUA/dbrYB1zJk7PKay+am0blQU2GNH47Qz7Pkw8uc zeoss dYI0m8GWHKd8C+xQSpr29EWdp01tE2QlsoyOeY+Y+Dp4b1ELBt8KPYZgM7y8wHcQa9x9abD+IU5iQusn D7tpI WsR6Yb/RrW5L2HWFDJn0e+UeXk3yOTtoTTXcoROj43MxI3Og7ZYsA/Ufw5HvhAfrDI1MC5BgMT8fzCq6 i/TdH 6dkXjW5qLzEY4qr/UR9stbrH0MO3HL79wcBHF5KVpiUPemzzOjzkPT6zqqQ5Vij8A3HP9Jb7XJqcvHf8 +F/R2 CYLc6hwPh6W47M7upwTVQwobt+S28k5hJ2xUxml86Jirqz4yZ2fYph2ZgPSfd/dDpx2gtBN1+Dwayne/JG2u prpLU KPO+MKnzx0tzqa8K7LoZlEFuI3od/OcTk6you4n9SzjTYwVGnAFMpl/oP5hqLBXPQT8SWoid+beef specialist+rs Lkb+W 8Yzy+yPf8muEM8mXntRE1T03iAW1/u/TX8QjkM3GQ7xYD3665nx6LaKzQQhCCVV+ArtASa3tPbpzoo+w K1gOJ hFyomAn8iPvzxgazYL9wJyglIg2Sj0UesxHYsmjHbnxEU/ClQhZN4SRV0UFzrlR0kuCaYO2ZC7b/q/Ml PsbVL xApZe94VRQ/8DZLHtuMJi2lzxusVDfwL0mAm5SuoHEJXC5hGzydWelo1kk7r0IiQip0KBOS/gi3l/4rn 1gC5g hbAmlpwQH2osxi6bk3LJoDA6OLiURe7ZUm5tWkzjYSfd5R6oSQr0t9iMOItfh0LHMu4IKe2X15+swyjD a4GuN Hfb88sAN6Wwkpz93bsCNoNWAQAUr0/8i2+zn2rp1wyO4FD63XZI8Sta5xwgsN8svrN8jJd5bdDq1vf3T BqVFW sZWXj1t9AH0WhK+wl+gHsVrJuZ8QHr4G4YeayxYfdRXtjuhuQnyzHR4+sekj4TOD7tG5vWiCUWhYjnV/ sTTtg PuKEuuLc2INeF1LrRGLrrfJY+5ZW9cy6ejO9OfcLDJ8lAhM4QsDgVazFlxeOnKnsRPuJvzhcaTVIGzkA MafxC dZaksffIX1N+Cxc4uPx8JaccWTIWfei5JDtM1/H/BvNXfsnrlYU16ZlgzLy/E5zEzyS8mwySZ+6oQQ2d QvHVO 5uAS4sZw5CIHOEi/C9QRHBXtZsfSeWU9m3EDcCvSVo6ZZGapW2kuYXMdkI1WVNY1BnbjOpYlFiv/XZTL gtAqG v7jLZ8dZDl3XRGa8F8b3gPqMQWBtcdARVyOFPLUrrSX8hjPUtBKsiU+DmvQ26hWCDEWu/HjuQbrXCOg3 xD/U9 xW4BVD8VER3QJHB1V6mwf/F0LPD/K0rGnbinBlaaMAQD/sgw+FOOt8McqYHZ+TARJgwWt7iiauhq8KKX lsrzy wwbJD2wfCqRsVXsy2ZG2Gf/B/ztpoI6Kmj26UssoL6hAoaHiQzVhJruCheumy01RsVuNqmtEL8d6KlT6 D2kaz 7pFHUAFgdVLwF5GBgbtfvpBPylKKz7J0S+tHFyUjqghftCK55DSZwgL5WhyNw+7oMeUZM2wkWSPmJqp2 S+1T0 DSNpen2hy9tg57dBn4w6Q2D+D8OMi5rkeewindXiS12hn8qfHr08w/aa1ZgDhKwxo5HmXW8jFwrRS7Wt mPL3a /FEWg0RY4oDuGT9srIGqImZkSqx4Y6D3CvnQLSH1tuUi2BIvVLG0QkX1BKrqEWMYQQhIcxZTeS3G+lRJ Wb2jH Gc2ksFitkQUlQymlqqZgmp+Henq5h1JtETb3pmE+hwvF4ZX7Llac1yiPRXnPygrXBaaXKoXZvq4D1Hcy Tj4Fc fZJySsgZFP3PCHm/1ixa5Do8XVBoyoAAd+ZQRVa2wKrBltShjKvrHbHmgHkv3UOMY5k3A6nk1gx+nx7T wTbeH 0M+kaXGD5+SDXOQ8gZW7UAw5l8t/8Ma85UEXKmPe5/kSv6QznFWPYjbw+wEDBQhBJGwGCApSmWPAUREC GCw7q ZYA4FJI6HsWOLteKxbq7PdldO6iHvhaaPUS2NJKyT5suuu1bJsgn2b8+677Wx0hHHzUi2D//jMOefec8 895y6 /z71mmn6js38TsleDSXXaE4vH48/WUDcY2SGR7ow2VMT3T9L0lLD5ZigP4gamnY0SQlcTLuPR/Vdn+2d 4g33r wSfBq0I+S9sV3WmqnomVcDgLefMHv88wN0rf+6w4XIqAkfIW484kf/JJaXQy086t3R6ic73YbvrheqH7 LVc7H 8ZDC5C2JBhtEdlxG8n67L/EUXZroryCUuhi3i6oxGIqiF+ju7wn90h6fcv39EAq676oZMjBOZRa6ghHC M2YrX GSY+7h9/9XBh2iChf15AtWbJOhSwOmYpmmr1uCeRnTCW9vsjbL8Pnh3nq1qDYUO658y41BX6Ufh/J9Py 8jWM/ MARIALUISA+a+DZ0Bk9Guh3Cxb7eSrH8F924jKNUQFr9zyFduNzErm0e5pihHsOWM/g9lNAyo03ZDK/Ficcv84/ /hzL/ NBEPA2aLUhypC8oeLybwqj7+lfHcJOWth94jGNw2/8xB/pnj/Er8qUd7WZOfzgmE69Cwes0li+VfSj7F 3q4iV yp7uE1u2/POt4ctlqVapN/JXkBdhwm0w10ElX7lsOCR9qbFZeaAytFiIROgLqp2p8Ft5tIZ/4t+XcX8e w0xkl ioe0DM9Dr/c+Ta8+VvEbfWw+twgAavZ2xArtTLLK/9/xoZ447dCl3s8VfSR+8CyYOHLm1wbfU1L2/Vela Izsce Zi56+Fpkb7ND4INtvJoofW0z4hQm6+8GZHx3f/h50hqsPrMhZ+TK/XMQ8sB/ihtBG28aeawsRD4Kqo9g EO/4Z Mw/cqZ24Eb7b7W6qg8CF/03/7s9xd3sd6CaTvgMbPK2DuUod9I9kevnpxLsTTWSQSs1tM40ZLo+ulLxW HWVoq yvExKTPnFzmYzAfiLtXaqJnpcb+iad1GaNznJNHpBYO68bmSVRMeR3b+tbbc40dpukigpwj3DJVlabKU RThRR dYGsYzsv3lNxP0bfqVlZeSPnwnftWVowuvs9x7BR/Eo9Lalhut/rioXFP6uPKwvcYYqmRgtr4vGF1xjd nKONf 7ns/ePKek86DYCQSPCbi8kWKzNolE205vWLz58GQgMfaSUh9Sidw7ZVk4ZJfhUi2PPj0sl3EDOuEioQt VjLXC SlUMCsWwf24waUhVch7S9i5/zMYZl3C4YgfO/FvG/DsyXM9+etD8HfR4sx9vaV5dUqUdRYBNuS+ofLRH J/RCd 2zVP5jPe/TR6/jha77Cui9doqaiSlhnN8PsMHLwfAhN8DbIJEeOwbTJ72K8XisrfYPorVZ90dRWQ43mK h+UzT yV/RHj6NYDc9/sUjXraB07k+sUTXty/DRpJwzAZPQG+zGP/ZPXDmZ+ShHby3AY8VKTo5uV30jDgkz96n yfD/a aow9Of61N2bg7vtsJY1lv9MrL+bUIwmq6A9PxnMpvy1F3k+bofcz64+r5yikJM7/6YTdM4Rqh8khSgL8 RTy71 ZzKK5UZrQDhe2ztVE+1fagkn8zgU2rK42rP7n4+KzF0fkYcQwrtH0gpggg35kfZEhs35x8ldqlJoY51z jkTeF Xr1YihCB140/mZl3zL3/Rt3UZ5uAX5p5fx0u9X6XjhOXg0Ocm9lNpPJ+iuMaGaqaXSfXLkle2YA6bL7p gHE0N iV0nLLubOCJa4gSwQ5gsSvEJTJfJXfxxd0bS0I6Vl9MdrDlt+XXvTr/EfpjEovfivXpRHtKgVhzh/55s LO1hU qyA6Ri9ZoseZ8+1bBBsVaOxhnIdpWhkbV2Y1nJki5uIvOnlO+zaA3exJd4+tG+YcqhbgH5tK7r25oeV/ DvZri zDuRnxyllB4oTqXiiqMhk6Vwiwq8i3akDUM3xwxjHB3Uj0WzVGMpqvfoZ5hWvFwMe96W8Cfr2XZFyRVK 1eV0Y H8PWjc2g5KX8K/NXM4+wZVK7Sc4/mBvD/ULF750XLcFPo0pOfrT2r+f4nNfp5b7hK4Kmyvr575UgpPnd 3Sijd sHr7T0qA9ImzmXAEKJQ73cE+e8QO5LoQz7T8a7b0o5nMF3lcZc2XZpwMp4HYpP/xv6MDe2HcdK+aL+cs 6wI7L aZ/7RC1ujG0ocmcfT2wWiZ1vKwEaGoZOe43ZWHuVv/jb6BH+axFcxDsKH7r/AaR4F9g6bFdIlQkG7ZdW skBSn 7jCa8gs8mtAjacuRql7YVdkATk4gbMY+sddt7Naf965l8qLQpFwR4eSb0nySIS/Xhv7/L9mCtYn5Rj/Y Pu07e ztnQiAVz+07+oqjM2gsVwZJ8cNbIX6sitPrvBNdISXm+R3VqHReWZZrVK/Mw+YZ2b/0Y0e/dOxcrknDm sj5sP GBev/LRMHTeRH8siOtXC+UYUaa+iMprvobbWjCIkUIIzpk6WYeyKxouiRhUVJ/SvNVIRtD+DE9nUgSkE 2oRqG GjwyZzsz2bNyvzbQfVMQuV36PZgXA+tn6m5f87l+KQypMjhIdaypX2mc04jR4SO6uF/JfBOWbVE+UYV2 a+uZc idzswGiM23kHW3Dkxlaz6W5IcMfkhYYD/pZ2VQNvNLSG51fc9zLXwRfYbncQMhM2Kksz+id4urU5cfVi eulli LDX0xnEnsMvropF1pI9nRrgq4qZL9RCnj4trfdPOA3z27IN7JG/XIhrxZcpQGxzFbrLsG4swCnNH10Y3 bNZez BgC5fqeHmWF59J3BrnR59oJNF9ZtoGRpkrmEZnhtu/WNdAjNWsb/o97Puey1Cxkq8czcPBzSih9PFc7i l4CdI 0iYtSznyGuwRpW170YXs5xmBKvv3zb0ekTB4/SC7vVRLaNBFdw0UvFs4S2QPLiBXnbpCBJBpyKdroFY9 xn2SN 8wmHcgPZyr3+5AnzQ5RM+j8xgefwNnPPQ4NSdpDjtMg8fAtys4+igvJXmu+r9++ddGgXB4C4tfcUxz46 nefkN sx7XCgN4B95V9KWA32VZ1tGPsJfp/HXyZKf0b9s6hE4vcj5AyGuMM2LWBkUxtpCpXo2YA9Ef3Xgt9Z5B J7VZz cHu4xeiH+LksdBrjU1TY9+SXjQTWPpr3U0ZK22zM4Rb6/a3+MpZp1dHdfg0cP6Riwu8w7JHowwl+p14b 7OTd9 XUy/1Oqo9mO2rgn88+d/4TBcR8xbFaAPqpZiBL0+JxHlKiZEoY7/Enix+nPpsoiZ4EeKJF6KS6x5QgnH ecTw+ W4kJVw89WNydn1ISCyWGfDX/n3jYiK2eJ3x7T+gC3gq2qfrv8zNEGirYlV1D4WyvGxNR76EzgFvhm3bP 7X6It 6n7I/Z+cSLQ42u8QvrmkhmYqju/4Y0C5FvaH25/6eQ1SSWIE6qMx3fTr7NYPEcLIFBOKKNkJHU8YKYBy 01y5n X76e1LnKOQVBYehClGiT9cbHorvxBuz7U39ympsMyjoGsTLjIffiHWDCPuX0Vo4+/w5H6QXAkEfE0CY5 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 /3/+9e7t7i/yj6Wi/J/jWFL9W2k68+esUxTM5keb1nw5x1Jo07XwEEDSGozZ35Jp19cbTyyU2NTqF/Ft o3y89 sfmt5gtr9gU98mUx2pXYAErqbtMsrR2gKXhy0lREcZUq53+9rY84cce16R11wiEOlTGr4AvtL3Za9ChF PYN7Y FtmePegZkcFl4T1IZCGrzQeXX9zsmaMhLNEYDiwENfKYfYptEj2Zg5bY9rFXnADoYkWhBuZgFSv5ujt1 ny7KE +wrBPpO4YNyqPD3Lbl/O6kSm7NigigOhiRWesD1YRt+5g3Nnvkgns3nht2sm5oaNwlw10Ymt0yCprT3P DaQBw 3RMLOQtYpwMke5v8hly25OoqW/t/dfLj5I3Ml5nmKa+zMr2JdsGjyclEJiok6L0eEl+iXjRP8DHkjK8Y N9Ky3 OwS39v621IkIrfkSM22A8wGLktSDV8TCFf0r9g079kb8r+2NQbwtO30VRDGQmZXEnJVNA4At6M7ENhyl Vpmmg uVzY2NK8lBsNfkA0sVAZTqPD0h0GWnwyi+Oo7auxT866SP+B9/CuQ/kVX8G86POdiE9OzfW4j/SY3o2P eYN4T pbxy8rbASbxk7vhnXeTBnMVnjFfO5h1j6F03n6OMJFe/x20Hmly5uy7gxc6JX0y+M97Ez6OPFGEUbk4N lHgQG tbzXbpdwfat4l9BUydxxuL11g+H9u758q955/euWeC6I1/zZAd/m9PCcnut04FgiDaHlzMkqOGX+AGrd fTad+ g9I4/ew++B9h0kKU+mVT+ih8sa63CiO4OspAb+kmG8+1tF3/RNGbzD0VlR8i5fvT3b18VR23bsd1IgWS Q85bT Ts8QdS/RA/uC0lAWw/XO/p0hrhG16d94E9i8BWem/nhPoZH87DWc3DmfYEdxkqj1KSK9qz1gnr80mUSf ZMint 64v/zY77HHTTMqvBAq+nSiuJ9PJygd3nXHyiP/co4oevBSnOS+ZNpl19lCgRHgTgI0cSRJwl+6dXCljT Z573D xD6q4zD01tCX2vYBlBu/FZ0OezFknh59Y41Un4jahRCINr07hbepri/4f0vpjIsV2Mys0tsMTrzl9EV6 YOmX3 dEdxIW2ALy+6qfUgDURMTA20zL/HdaXS1/Dv/Cl3n4/a9v+HKryWG11L4iHeG67lpwO1PWy62GGTXx9i Xvh4X PXOZ4+hYn2xro3T9Q4ZtlhG/MQ30J3grtc95gv8cdWEe4wCQRAK5sZY4OVMPCVVGQFDXUZPVLCQXUPXE ARBEA RBEARBEARBEARBEARBEARBEARBEARBEARBEARBEARBEARBEARBEARBEARBEARB+AtuRZM2Jd8SpCOhqa CVutF w+deMglID4fstEVsC6Zl+NUBqN/vTcR+6gOJ6FGZu4ATsj9VfsYobq9/bdS98u+s+lcD5dNeTywjus0q vua5Q P6/FjYRoltl2nvP/6JViYk02B5dienfHf5b8vPGlbFLO9SoQFBGzYUTCCcRMVKV6AkwcBd0jE3nRYPL0 qJlEY tksIZlnCTTcFsFQRKIDvUagRXOFilLNd1LUpFXlKDoniVtplngmE1oHHe4GyF7HzGIZsvKOW6YAuwZ2b Q6jY8 8EIVaW45LiZ4Ms+c3XHRz8Xvq2Nh10xJY6yh1WDPsK6k9hmcbQMjscKu8q8EV5jdPMPfrKfLWMf3EfT/ 3OUTh /j+wtuv6ISLeDPjOFjL7o3J3CjhQe35xAIpirCvo5WZyElcZ08Lqy4KMZOTz9jsZnaKaX7WX11pZjbV5 Nd0Xc 9eGuXsnszbWOAfmi1hLGW8ZQHNduzCILlN0RsD5UQakrp1Lsg/+nU4u03nXyr1CrehpBh3+4M22D2Sot PhtNK NtnJuSsLn+sTnCrwGmuWcYKIkDHrxFQMw3WhhD/QbEF9RlHheWzVeXdrCtWdUyBuUlImqyfMMDv8Uxzy IqZka dOlWuC2GaZx3IQZYvoMxuJeVy5xqsl0HNOPxp0xyq5rPz6u1QWUxo/XouAUtZcnkQAdIEnXUHci1wyqE DCnce hr6rD2vIkWBUfhm31HkBTFnAmEI3UK8xCKd2Nl6x8ujHDW13wQ2goGdqKQAHVIGGPs6SOQE5RpMl9o5T zaITT HIUbLoMfDLjikqRS0Zl9L+FE/gjq0hSMBdcN+UMc5vjac8ldlKzqS9Hzk2Uw6elgtBijrhBxH9D+Hm2O 2elAt Ocqb5HQRQ4/6ZLPkov+jwyr71DIsfMFDaJrJ/KXbbN58AXpnLXn9Q/V8nLr/pj4gQXbaUySL2dhGq4TN mqT5q ovqr/BRdJf/z2vH7W5qW5Kx08mtakJ6pNIOP7N6Yj3X3C33m1VXpF+i/oPgVdfDND2IUkRFLPlaJKFJg YCDzV wYEN4sR6RtiMihWVOnfQ7DLxR6prPdjKSEwkrqMttg7Bw1hy0Gwu6ZWtZbvwpwoVjhtXyx6P3hYD4Jyo LMpal RJ5agKlPtvOIdAzveymBfASZCbxMtAAMM8rzmjVwvB5LDXlpHFboRwzuG9bSl6DfKTU8GxqfHPmYDyQP Z5nHc enPDEgBj6sAYaV8KIYSFhYMOQzcamEplfOfQCrFYgnRfpRKLWkGEMnXijwepKwifODkMvdmZAyMFrKWH /kCyz sWcNpjNQamEGTEWpzNHxLfqLD4Yv8XSZdPONosWEZRxJPYjpJVXefztcGyM0JUTFfidBEuy/J5lutY+r F8jqU fu7IqSFi6LBawATQZj5XaAq+R5fgmSF1ikAsndhMIAndQGXUXhpfMQ3hQmmChr4nySmoMUv7bFBjQiB7 lLMsH BImZSfK3f+OUe84K9al5Q4k8QA7fAghufhOkhpbBxrLrZ2mc1HuG80dShMha+RvLX1n+wbZZ2HTSBnlf svyZ5 C7aM3h7i0oTte/xmED4kedMIiI0vMYpav0P2Pg3XR2V9kaXd/8CT80JCQwRUMCIJqNfISKKmJMgf2BrT tRqWz V75MyUCmXXpdTcVifJXZ6Tg09ao+0oP7fs6Puh1B587o5szZm5uNk+z/yv2Ejlrt/iPKjSwxa0DdX5rN sSrkq 9HpQakFuFXqa1YUL7lCZDazv3S+E7jTUSQwp1IfC9sNBRuifvkDOYxqWQutSzyHFGipiwZ3XDpe8GobR skbBb ItPGLmw4PquJlS9KQzbxOZnPjAaUYxfqEGfPmU0ZIryyPzzXyPpGGajuDkvTbCjQStwJFNvWuYjWIcgI JSyQM F/LEHpyOvoG7BiYwaX8EBQ1vNfMJbxRNBHnSuZ1q0ZfLMz3SByacizOlE7xtIkI4n8Kxcvy4LNxc6kzT pK2h6 RjASj0OMvczapZsMCe/zLrt6o7Q1W+h6T/Iel/VGcvji9JsO0t1O4S+h+S/oek/qCso3m8R2P+h6T/Ie l/SPo hky1HoS5p3Q6N+h+S/oek/yJsu3d5O2Q+h6T/Iel/VBspxr0IrI2zvAsF0j1Mzkeu5mRrxlb0RRAbi6E bIel2 QSluby2U3k+QSmW9qw3+5yMkRXd0bQmWOnRKWVuabXsVFYf6vmtCuLRJGYkRuQiaUQPEK3DcN5Uh7Odl KIxGA h8mR+vgVVY4KLhZEceCMMiH5nqcsQAmZItOMvBIOfdA2HSfGMSLhQUr3Sz2ZY1tqrbI6FUDHTUYZH90K V2AAn deZ6BWTdRTpJRAvQZiBHRPy+5sj7WOjiF3UrJDVYo7ZiDmcdhhnNL3NYUgQ3udktJ95kBaZluwM3EIOL dfAB7 QGDQCDXHZ8+I26WPbsIZp47UfNP1vskgxpOIbQInSprIG2pokwVsvuHYEYE/z0bzMZk9LRLmraBHuOal 6IYuJ O7A3ZEfXJXKGiUWyOfwQbTFTlz6YLBoGdYXHenMcRIuMlHeaKHFTx2figki6BWVCTGSdyqxS8NLTKx49 uIX+x hfi5Kp5G5b/YvQH+W86Tb6EyLsSIw1Pn/yC0c/gJ3Afa/cw+rA0VZ1T6jrzP0i+C87IJ2MksuXZzH1F1 DOMPg WfgLtYuwM+geGB9AMmB9fZYk4h7T53F5m7Eh1JtU3Ol6VozCbLcIFnK12ont4wUfMpajmxPmiKLAaXCC xeBpf JHIOUaOiVgyjoLBvIntdrRmrifWXkP4pAVXAQtOpkSbtIvBZirV5jyQuzO8ArY4UtJ+oTr9ScTWL5pIt /vaad eNAC1Z69cIEn5PR5w14kR5tA0rJuynyeQWbUdoTgXZlBVoPBrqwCmbFoGzZJ17DXEBDDNzS3RZ8LQ+Zg 5ysYv IcnHtQLOKTEa5bvC6AoGgXoHQOzLfRuvHCmaxyDNb3wDSL8mwRrYYTm+EIwpvABh9egWn8Vf6UtETYxu 1FgJK 211dpJKRy5+kXAxYeA3LmFQgVBEVSLcJU3MRldfQJA+8De4CoX+mXffSpsJKugsffawwyQDom7Kh7wcS flg65 54U29KgEi0mRp2NcekUKEzOQR3Cyyl1ulussPY5vaRmIeTvKILlRVu+9itoFhWeFShXHmpnIZBqwm0gn mlXZO BoG8a4pY38WWAVdyQN5Aenhn/3+b3wd1978Vqvbpxz1oI49IaSz75vAChSWjctSlzYlLzT8RgzMWLmng 2NlAO 2NoWc02Vb+dx3D3QJ1T44WAvKJee3EnTEPLfOKLReS4K/Rd5KSncNzki54B6oQP6BODDBvXHylFOCHYt LZ3Z+ M7uXoNo+83aByjPz0LFMQcbCFX0Fg0lZcfROWCGCIu4Lb7QBGKq8Dt9NbFJ1BzlPEyWQYnixN2JGQ8q4 2v8a+ g4IxG988pi5N3dLT/7XgwPO1p/cr1gOd/3gfS586i0Y7gg1r/ez9P060joxic6/B8C66idv7t+jKq1Pg iqr/x MrhdLV8armWor6o1NC5cuvUkM7ubIT8vwf/6eoGW0n38vuNN+7C0eNCNoBbbBcpmiB+2wphiqt3mnsAR b/LcD yfN2fvwc1tkpm7qJNnfth2qOzj3PcadahBBQnhx9lvSaLqHA2dSM51wayN3ZSlCZFYrE45VjwMZDE8jc nJVcB 3h+uUbn6bkKT9f2UkAeI4ghDTsJvxsW0V3iIzjpzM3vziFIFdfocEz2PaSdT6qM8iPuJiNAqFv1oA+s5 HdEDH XZM17Yhj9BIz2o+q3LsAfQ/uyWEt6qWkG43NpNQvDhMplzKS514WcMYA+oLOpN5tGqXy+6MwAjs2SBkv pTLd4 iBjaKwgruxEuSW7bsfE8KLCjHfjgdrypczg4cXpLjjfZR426rUVijwSCnvplsihrGrzblknwaltOO4mU 1OiAX 3Z7wg6BgxsSVjT64NmF5g0kRanw/hS/CONQ0rbJKV6j+Ap2jg6OP7bOjJ+fj5xtLZgX0IkZLqzwGxel7 LPaM0 qyGNm0TNuwEgUMIeMCKFAvJy7MyojLJ2e6YFdYN36x6lkNG/X3yQq2Xq7NQ0+hKgoUqgJPvurK+7t48p QK5Kl iX91mMSsA7W9gzmPlJT2MyjEeZ9W9nBSiBv1NI1+Jpj5ls4k8A4RjGzfvU4tE1SeukOrjmzrompx+7w4 zuYPu N05VeE8DUDTIjeUWksJ1CDjhOT1/1hDJtsHz8vbTxnLae88Opvl3UhpMqZ9o4HdRtcx3TRvYwQZ0r0dP eRkPb tIFMbz97C3EfFx4GnqmfyyWb9i4NHkZHWhmrzsQqhGTvaskPOmWIWyKYsGZWJLPGjSmprFAVNNnaKO7O kVBmh 1lbMb31SJSWwrBXxlIEBA+qeE8FemTrZ7HnRddSDX2Z+6gG2PiWcByS36nWitMGgoDNJlOtus1JZeUud m3FKT 2AIoxqXrxiM0z5BJez2hwy+460JltuZi1PuaKh+WEu0MQMcsSY3VUhUpCbWQTzIfEncQRQujg1c7y4hp IyjoA 4/g+d6QvqX1W7Kfzpwucrkv7ihKYnwmweMhfo0eJyo96b4bscan1x8FJ9I8TI8IlqNST/j3vd/vZm/ed u7l9/ 3i+c/Xa3tu8R60hRfT5lai2JDII7OX8o2m5afh+zaXs4g3mg2aH1rFfuSgPc9Lmb12QmtrXg0FH6eyP3 drd2q dAaP26mgi3YHdB9Zc+Ym9nXd2955xDst/W//1rqH1Cza+aGtIxyICG2kvAm5K9husVqMhT7SbJzAqAoF zEgRz A/rRRpcK+QHWi7bVb4sHBqyr6qdRFvoDwHutZEubl7HdpnA4Tqy3PubUPppGfXGbYsT2kuKwV+rMJG7M RG7IB 87Nw64JBWmtPO0dclTvtVEC3PR6KSPVLYPcTDCIP6KxeSFwg5CDKwzJ9U6TrBNPbyPftONjnEQqgJSsh AD2Zn /uYd8dVpy35Ct0eMS3dYyGyLCLzraqf2AYhlIgMSuhW9ErDhLoIEGK3P5aYLlJ24uSj/mY8f/Enf/A7v /Erv/ AzP/EjP/W13eFTdDsKY8tEU8iYZ7wIO0nGY9fpFs1uSh2vsf7kKc8xda0iEs4tcQ2uYZ1hMM8cAT5quK 7jWZ7 rpS8pEW4kzR9xTB7vYJ2bBI4zcd8bZt1lqb0yTa8qip0gQEbvktk0xGp0vFa7akb1cjp0sio4roh6cIz 4lEu4 eUm1cKq2u/H0f5F7j7Y6ztO1tfE6aPG3qZT4lZOJ0LCN2qhR0JjZVdK4ZB24h/5j/7H/2H/sP/Yf+4/9 x/5j/ 7H/2H/sP/Yf+4/9x/5jWgaTAWyWYKDsXhXEjAL2ZIpZHClCNKDbDdMIqGD5CFfGAOeWCCHuOqTErSL3P BoQDY gLCCKqUlAAgDM8TOJs+4/9x/Zj+4S35M2xJ4Vp34/tx/Zj++3d4Q5+xzo0A5VgW1hV/dYEZu88p9bxWY AApp8 sTmteyxTdzRQjHQ1UII2mj3DfMbG3XSDxg4SqVvu9C1DvD4BsgMChVVS6Z6XqyDfigBxipUR9EeByARR zY2Vu jYLcQmKxN3IrRFoeKZViT6EnbkHYRr16Ow92GVYiXJVsZwPgIlDqZDUoArBhI2EblaYNHM7yeOrrK9Di aWJya EpoMd9zhWIxbQPuCCI4EFYiIs9Bi614KxKmLP0IJ6YHDSShN4OkhAJwwD9Jp269J1LwUBPhiN1Qa5RyP WwvRm 0xgAiebScnqLQ7DCWgECEkrOuxNY8hmOGaVR3StMXqDkI8IX9HkLSbH9PtfxXLYTJjplvpwA9iF2lGEW lnaHQ yUAT9Ju5WVO2dy4JcHpI6DXAwt5JuWer3T7Lhi8YPk343C1YYEECYKkwNYUgvBhUnK2XwW90qiV2cJ2r pbkFu r1rBbjIyJOgaBa6PlSFbrZOdINLpPhLaQi3eqYEgf4MsgLG2k8WnCEAxJNYRS5urc0RZzAVkVGZbUR8N dWJ0e OUcT9AjrWNYkHVnQ9V6mDGxHw6ijC5VvMH9oTUcQfO9QUDbFTRzCQUvAORnAZMaRRCiAECpPILgZVUnO jUyID RmUXRhYSCrCHFmZRBvDIIsHMAoSQUqQEMiPHXxQCMwMQSnXJM4OJVpPIZuJNKvSTZgDKT6DfBjQoRtLO AgMCA wODHsZwF3DSCnSSNbVLUxDXWsAWFxPKI7FWSqDIXuQLRiHCRvWHBiBWPpVJIoZWj1BCYeLPHeUNNsCHd 4IDMw LPRiUMKeWsU7LAJzRKEmUZf5DUV6CqDpDBE2CVFcJSEnGBHcEfzyUKJuFXLrMXHrGIJqDUE9N91+Pgpl bmRvY sgCYIdzVQKoVswYZm2AdmHktIJtOEZeARUoFGSAKTpnVPxwXHMDDXsnlvEnMolTCAwcHNGjTxtTLPddT mFzZU PeppTuSaGwPBTiXN0HelOeEHzyKb7MyO7BhpHvZI2po7TlbabbHmdad0VSzRDzHUDdGi0uoGFuy6RqbH B0b3I qDCZoOMWmMRHsvEEcOHPsIuG1L3N6GjQ8lGJaHAY4HYG9jRDyWQcmPF4Te450O8puGWZwc0tcFBBdPGC wMDAg MTAwMCAxMDAwIDEwMDAgMTAwMCAxMDAwIDEwMDAgMTAwMCAxMDAwIDEwMDAgMTAwMCAxMDAwIDEwMDAg MTAwM CAxMDAwIDEwMDAgMTAwMCAxMDAwIDEwMDAgMTAwMCAxMDAwIDEwMDAgMTAwMCAxMDAwIDEwMDAgMTAwM CAxMD XoBTDlBYOlWDFzSKSlYUYtOVAtOWBjMiUgURI7XKT3SHgzXOQ3ISRmScHzTPx4VJjbMyTeGnqrPPJ0LO Q1NCA 6OmLxTYD3BIV2QNL2EQMfIlW9FRD5FSH5CtJeZiA9HOJmXzS4FkWyTiE8BDImCeF8VgGfAyR0RTApSnO 2MzYg KQF1VJJ9OUB7KAdrXEH4LRqmORL9KZTeNGKcTMN7MVDzJwl1BOJ2CQZ2XvDmNgRoUVO2DPZ8NwDhPfLy IDQyM WQ0RIZfSzzqHUT0SkB1YFRzUaU7SPf6VqS9KICrQtv2JRN3PEY3YNHoBjA3NTtwUdQ1FFJfXIk6LKJ1Z SA2MT VuRvx7IQL4RWS6NRZiSZX7LOpxULP4JnTgBcL8TGUaALO2VbAuBPNeODUqRvI3PMWbBeVhCNDsJpG4Hf MgMjc 6IXB8ZVF9YHLaRdu9HNs9IyF9JuNjDnK7WBUqUoJ6EgRtDUJ5LPJlHBBzMSPjQcPmWGT5PwC3SLoiCCn yIDU5 JwW8OsOmTfS7YER6NGE8ZzGqKPX4BGB5MEC7EuIpPMX4JMH0STP9VnOnXGH0GVrzMKR1WsTpNyW4TVYg NiAxN PTsCJH4LHB5AGCoSLG8HZT0GZVsGdh0CNV4VKK2WYAcUoD0AKZ3BBA4RZdpMYA9YRW7WTB8AiYoGMAiM CA2Mz EfZOf3EIWcCBO0SXZnWDqvTCT4DBW0FwUvCoX2SBX6QoOyOLXaRqL1ECNiCdK0JaJjMgS1EHG5EQT4Ry YgNjM 4HEQoEPPlNRB1NTS9PZP9JPbqAXL3NVRzYGTlRuO5AQQ0VwL1ZBzjMXNaLSH2ZmP0SlYiYkOsKFYbAhB zNjQg BrF8HKP8ZxJ8MHWdQaR1OSGnPFGeWEIjGYTdWQRqPDA0USW0PKGqKcm2UHR3QRY5TCKoFgp8IVE6KEJ6 ODQgN rr4BNDaUlG2UlWgLeUaEPDhGvD6MwSyDNJrGCYjIER2IjAaAdz3JUg0JDB9LZvuEcm5UVq4PdP6RSdcU zg3ID etYLL1KKgdJmLnJLheTpW9ErCvKkYyOWMkKXB9KLMnPtKrATRdPBT4ULQpXlPaODUzHOD6BPNmTaIxDH k1NSA 4HmRkJIb2TJP1QkB8VVUyEFj9CMS6TTAyNcPkLdw6LEL7PZC9ABUgJwXnBEZrRiO7AWvuKiH5RXOtCtZ 2MDcg AIX3BTEcLrZ0ExRwXmAnYFUbRjC0RpNqEMbaTNVxCbM6AXMsCl9JOV8dq0CiEfY0HEEdt8QhKjfjEP4g ZXhlZ OPlSaGbNRLhXzBoZOLyEQNfXn1ZNN4cp7VlUaMpHXQnd8AfUkf9G5HmwP87OIGaSKjpZM0MkDYedW4hy z4+Cm ArNF0qspweOBXuVF1etes4PH9OzFEws31toJTrUyVoQKXsJdVhWuQuHFIpAYIqFL12IKUhQFZiSMJcAP IvUGF oSN62GUSsMU6ypBWOGNfjJvDzUl9iSR8pqGXhXREwMYYiFVupJJ4RkLA9J3BPyuYrMx0tuA2+CmVuZG9 iagoy GiPvQU5bean1XR8IhMGnIRK4ZCttKc6MRNFASGT4pCQsQt6+PgplbmRvYmoKMjMgMCBvYmoKPDwvSyA2 MiAwI RBiNHEzEDUoLOPsQv2Aa4W9mCAmxE5+YhUfXI8vkrriVVHlZD9aqsk9VM4KbP6zJhUtZxNwWXQITYMqC jcgMC HKSLVeQHE5ZPQsAeUwEAJgFUPtDBRcMtZuFtEnFPCRZD5+LcKeLD4jolgyGLYkDI5fdbm2XB8SmzNpQ1 xlL0F roT1TQY1IYK9OXJYfEJ2IPV8FU9KXL1zRA4wCF3QuU4NiVZ9TmSdlWyarnMHyB23CWuBnLO1GFI7EP9C lY3Rp k53zH6EubW6XEI1APj9YYR8gs9FiTkO3YZWrs0HiPco3UDTvGQLqckXivCUdvCeqWW03fZbyqvRqfIHf dWxsI Z69zYxkdhQdcINpsBjiQM62kBqcasPffYTtXsVxVRJrWzUaxGrfDI55wFuiycSnkMUejApeZW38dRtdf nVsbC RtTpO1AUFdNtKxRkP7YDDzKtEsoNlbVL94qFyqGDUpKmRbOBUiELLzEjKxZKQuqzOinRBocRyxQL27kJ wgbnV zbTUfdJsyCH95xCpjnhXpeOBcBbW1XQHgNyGttRwiSJLrOZsaZQULWI16kGgbyePvhNFhgFohIOUdCHO gMCBS TF49nYboHAWuOlKsEHFzrcThmPVdmReyNG66iJxkDUHuSXZgZIKgstOucOTiMFw0YOInFzMfhQddHW80 bGwgb wApgCRpPJz9OLDzBmKojBjlJFJkQVGfOZYCRKEiHEAcJNZFQB67dIdvfsJrlXGrxFhyMOTuQOIvKMYYZ G51bG daFZK0XQGqVVDsgdRevZSrrXvvRX83aRoiPRN8NCJtJXDlrfSqzKAoFVh6NHGlPjArLTp7MQChHdWznF xsIG5 4uNumlxUffQIhJAx7REYcNpAcsUjvVGKwVANlLKRWUL37zQvrbeZnsJVcoZwjIDOiRYZcJWSPOE42oVf gMTE3 LXTeIHBwbdIghYHtcUsaER62gRtwOHO5SlUmOUIvheRhgMSiYXk4PNRsYkDdiYtwNE40fFxchuSjpVHr MTcyI BLoQnKxvFakYRGnTlLmQCMZNCSfOsCyZJYRBGFqFnTuETRJUG99dWpuqzShmXLrzBnvETBjPbkeSOOTI G51bG miAUR9YkLjJKWnscMucNJcdMqdXJ47wUiuJUX2ESQqEMHmsqObtMMmFMAyJCKkJqTqICMhEOYqNtHpuP xsIG5 6dWhqQPN9ALCtXUXgyjYimOQbRPX5BTHtCgYeyQlbXW52aWspkhNkjDFoNUE7GGYaKvLxuHtgRPLmEYZ gMCBS HS76xRkypuTbnILcvBzqKOBtJTKcVWJTXF22iAefQXP7MWAmXZXqwxFcaOIvyPdsRM45nEqxTKW8DMUu IFIgb jKyjRIdDKG1TRCfMiBdDBP7COQzAtNwpRiwOR99zBplppZnrRXogAruNX93bKanabSyjGIlSIX7VWSxI iBudW tsHDJpCmCvWWILKZ27xOeqcbVmyYBxyDczRAWzNjRuXSIJGF07oQmcKJBuHSNaGAShphTawLOinHkxUI 51bGw aIXLqMJYkIRImtzCjgGQigQctFEDtXLUoVVOWBZ48cMfeKQOqDTAgGRIyqnGgiBUwUMS7YUNkCtYjbKs sIDEx HRDcZRFVWO75oRtaMMHwOXEiHDWwPAPaIzNaXQCqTMNuPkZsYNPyrlWurAUetMqxJY13cQssSSXsOgPh IFIgb qObsMYhuGwyYJHgSZWoJXALOX38vRloTCZrQNMiQMZdsfFahGLwEWFyOOBvPxBatXojSYDmFVMxNMFXX G51bG uxKEIsQTCiRDQfRPUlDWKiWGYsygGibIRmjHneVD96cXkbEKZlEbGzDWHmrfJuoUPbvIfcVXFqZMEnVR BSIG5 3mExtCKKeIDTpGYSzmnPveIDrMQP0IMKkVfOljLtxJFQuMGReXNSOEYZxXUKzFTZEMIHeICGmUNMXUQ4 1bGwg dnVunRCuNOKiSVBdUfSyqWmlHR86pSxkbqBefLSvFUw3DCBlCiZpiLotECKwYHeiQBXLOP78nVnwmqLi bCBud UrdGGBgDUIaPJSLHA46tDbqAHJ1SUTgQGDtWCY0YSVdVEAcxzRrvEBytWrnCTXsBBOxAGPIUD60yDdvY TA5MC AyTSPemtEbjMMiuNobVS22dJzfLRR1UbIeEVVjihOwoMYiIBb0BAAaUqEdgTuxUS46bZluMMQ4SjXyET IgbnV obSEeOWrfWGTaFyHyXYceHPZcNrKbiWfuSR49qSrgQON7JWCaLAWnymRrpSTbELl0NZNgGxMbODe9ZSV gUiBu vHseWC82qBrfvgGkyXKhFJu5HYFnGeIcaVwjCLIvChXkBBASHB15rIeuboSftEUqXRO7EQOrLpInfImp IG51b GcinvVwtZCphQduOB72fJwgotRwcYVvyHegTDBqUGJxZQVFPM02mCrcSUV4LiQcESXvRSL3CXZmYWGzU TA0OS BmHRZtPLG8LPTcUEIlOCQ1ALXiLFPpglDfeMXweJedKI38eShpFGH4XTKbCEHodiGlgFPwSQBaGQPgLr BudWx cMI57dDzsrkPckSOhaFetZZ59sZgqsiGseUBhJCI3DIWmQpSbeJzmJVVnXsUgVMFXHE06bQmmxjNnnWV xMDI5 TLDlNwZuWKXkCUPfShZbKPQjVPQiLiQrWRSySIYgVaPuETHsJVHaHoIjNIOdMZIcDxOmZPA1SYHgHfHl MDM1I JDxMyIkmDvrQV60oHtosqBmsXFtMAY0OONmFoHryRjyNWExGuIsUSSWOR79oPavpsUyhJGinYclDD84m Gwgbn OntBVjsMowQQ44yZpdrnWsaTYojTskMP44dRvypyMaqFHbdGdvDN18iMdatuRniVZruZmeYEQzATEbMH BSIG5 1fTwvFIDnZTBkWJUlmxCpbNQrgOzcFTDdJXEfONMXNG25gJhvKEXrHVQuCCHrynFkdZEvvErsGOx0CyF wIFIg cmIhcXZ0LOKxNTHULN37mAaywbVzuGF6HOVkDNDBRK00eQvkLTm4VKBhEjZqwWwiMOv4IGLlHMDiZVch IDAgU zEiyNdfVEz9PBBrGDItYFcxKSYvCaSuzOsiPV77iGypTTa6DVRyUwJcaTloIKf4IPZpLWVganNluKJdv WxsID x6LWTqQTNvprBtaDY6FQWiMQOCRF68uJerrvQleDG4QzkiDJVYZM90dHpvXMj6CCEmWaHqcKzcYH60gI wgbnV avHK8NoPpXXFIZH41rUvfBQmhECJaToJqeKdzTCq5LEBmUWDgQAbvROGlIcNbaYlkJU98zPeuezEsxYM 5Njcg XRBPXQ13vNgbGYPiHFGuOzNmrCufBDc6WaPwWKGjMFW5WFSwPuFjlOfpPBp1JTWuEWGtVBB7GOZjOrLo dWxsI O96gEcsyvMdsZW4XDvhDFESYY43hFaigqIvaIGmtPifVHw2QkXfXSVcdhPnoOD7KQPrCXVHED09oWgfy nVsbC S6UXMcFKHSTZ05qDnlNAKoJIQhWcQeuWpvDW09lTaitfRvrNL5ZOqlQJNGCV81qZbhmtUwmSEqnYggES 51bGw btzDmySNybKcgQP94bGnbjvQjzKApbEnjJV57tWzyjqWlhTDzwXthGXh4PbVbSDCdrtAgnKS6DJZdWVJ SIG51 sVhaWADoDJSkXcPfiOdvQW97sDypZVG4LRYvGvFayIhwPNkiHwZpARHmsoKvmRT2PbDpKDEXEM05yIpo bnVsb QE0GxBdDPWOFM64mWrpTTOlVNPyLhJbnSkqNW39cItgPRT8ABIfIvZqwZvrSXrdGsMdXGApsmHpjSD2H jUgMC TKYZ70mTubjtAfiMV0HnJmQJUGUJ05sDbqYDZqVNElJpLrfHuhXG77mTgzpnPhzNHbiSzjPK35vGmwqy VsbCA 0EUMbQZZNXG71dOjqVCd1LJEzVeLsaZpoHH60mSobydXdtSFdpCkoYF83fNuhqcRxsYQruVbiDBl8TUW wIFIg fiUrlMG4QHLwQEQDSJ71pAjigzMmbSIfnOslAJ44dDjjdpCkzVZieGjbILi4RTCzIZPeqlChiZW6Mmzd MCBSI P88iMvwxsYfhARabJagFAe3FVTcOQKwuoIlyYP2GkXvWUONAN63bZsbxzQjwESucWqnPMk9IRHxUYMgc nVsbC H0DzzwYCSQWY07bUaeieSxkWLmaZtuGSh3WpQxXDXhgbUrqLO5HtXbIKVMNH98tQntotMohALguRxhYI g2MiA iBWMrsoImmQM0WvFjVGRHIA60qUvsciUhhQRtoJmqJPa5NGPiMLKnotCcwDI6GNmtNLHWUF68aXcazbD sbCBu yFpeNKb6TRUuECVkvjBqfRI2USOsSREOOU35aLsavwJyeCPiqRfyCXn1BWCeDUOvzlNvqUN7REfkGHDW IG51b UggouPpnUUpcIbdNSm3UwVlJUQiaiGiaJB5HJYeSOZRTD01jLprjjSzyHHppSajTP51sLewhyNmxDNzi WxsID xgJDIgQBRspmMzqKFsaCycRHaxNQLmGBEoEQQyDEMeJkC2RoEzMYJEKXpgUCCgHGOvDFOdTNZiQpK1Lf AgMCB CJEnjICKzMXVtRBVeIMOnZjC0AiQhFLBUSCyxXHOrXSFtNBTfLUDrInB4MbMgHVMBOVrwGRLbIBIegyI sbCBu bBqxFE62bBobioWecDJdlDgwAEanDAYoIFIdaaNnoPFhaXqzBD73cFpcBEVoLFNjFgH1UDHxFMUDDA97 bGwgb bEryIJtvKekFMmhCDLxFYSvCFHlVKRyByAbrYijZY09aYkndxRwtQW3NKroCZEDVJbsCPElXRPbahZds CBudW bcGX61gWvjCMB9PERxDgH6YKTzDLDNTA82bFyqynIhhBSmqKotEZ54xUzyvgVzgMVzqXszZR15xJzduc VsbCB xdAhxOJa5SZJaLJSeUuhrBGNlUxEugDzbOQ68yAdfhqHrrRIstGmnLD29yCfxdjUygPOutUfuEVw4VOL wIFIg sdQckUUffSuxYBp8FDQdWGOizcBueBJznMxqVY44zXnnyjKrrXO4HBVoZAZDFF11xTdpLpknFIZtNaJb dWxsI J07kJlbBtuhMFMmHbYuaIokOMo7CLShAFCzqtDfbRVggBblHHu6FyOhLCNdkmCerFS0JaQpULJANI26d Gwgbn AxvRDnpQerWF26qJjowqMkoL6QEL3jw2PzKnJ7BLJph2RkSgu1UTWaQGJILL89cFdtWfBwQAKtOsGsbZ xsIG5 8xFcsAmEwOBGfEaWexJsoXHq9IVEiLWKbipAaiUNnyQqzLM25cReqZtE3WTUbPzIeiIgvUHs4HVPbLMZ gbnVs wMQfzHohLL88nKfcNfVtXZHjDbLrwQijRVk0FQBoYYWf qpyPdcj36rgYbmXMlkXstSVjwAKVkYURywyKgsDIgeBtlEG47aArmfmMghMLckXxyNU09yGsvixNgvCS udWxs GM88eKwqgxUajRJ5IfZiLLMSFU70bQqshsXebANkcOvhPT09fHflSwL1DIGkEbB1WmAwVFWWCX76mImu bnVsb QF2EjJwGOYOCYccEbSgMSFoxiWwaFBzjVgdEUshLWWgUBQjvnIshXY4VsnkBJIQAC99dMbgGxC3CDPmP iBudW vmYI25iHezPoViKCGfWzVukKufLNkzPIRaIGGbfrZihUJ5FvMrLRWVOS21pCshaeZdzVC3LPEvTXRTMI 51bGw iVpU7NZXyUbQrgQleBK01tWbnhmYsnYTxzAdxMW72pXtrbcUgzAUfoFkfYXamCuJvMNHxVwLwDBFpNcS udWxs QN34iLfgGpY0WQVaMnK7CVOsFCBMCC99tFwfdgJuyFC6XGMnGWUKLP87yCwvFrBgRWOyHdHlsCagQQQ2 OSAwI HNkmxSrkUZlwFpaPLS1NPTmZPOkcdJsdVG8CWHnLQZNHH05zDdgLsxrEYSwRuOofHxqPC15xDraVit5T DAgUi EulWboUQO9LUKyMGYumkPttFH6TQrrEBTMSI36mMzfywMmjMZ2RTZqDUZRHF43sDgtUrheCLQjIsOjdL xsIDY 5UAOfCBYkafSdnVTdyZraRM40nOnqzuDuxQVhlRunNA44uLfoidYmtLCnxEweEX78eHgwbrHmuTU4FrS gMCBS QB78xZjztjHqtAGkwZllIBg5IGNjKKSivxVzcCQhyTrhTU94xGocodNobGMstFnwIO97jEkaolCfgYZg dWxsI IY5GgQtEVEmwrBbaYQ3AGsqJGHIFX17tQwfHuH8EEUqIhDmzBciHQ70rXbvxiSwiNHnlCjxFB69dSgjg nVsbC BleAqhXHL1ANMzKLTfmhTrkATpxLoiYNJ7FcDyYWXzxnLvoSM0XrHdKBYJLP18vQyibiKxwOZ1MrNdJJ BSIG5 1fAxhcmUpuUUpcLamEN02eAkgqrTscOFhoEraMCR3BuGbBVPzsvTjtOXnfNxmLX77lYqybcQlnHMqaBi sIG51 vUcgyqTgoLEzmNqyQV75aCphsiSbtLE5DokmOHWRII43jLcaPkM6BUXdYpUnaHaaXB37bCqpocBvkGNw dWxsI G89dIcoriBqsQJqnIgzDF63rCfzfqGwuUE6SrXfFMFVWP41xRaySpG9OEMbHhHrgXftOT58kSjwwiExh CBudW yzHR86oObyebRkpAEdqDhjGY51mGgleqGplQT2LATpHLCKVX36vQspIrT1MFDzSvYjrQigWD94wZmevr VsbCA 4FDTqNAPXKL27nZpnvtTipRV2SYupEBRUUKNhWDImSIYgeqRxdZM7JLObORKUEZRwBAVoFKEsbjAqhEQ udWxs RH04hBduhpVaxIKvpDflNS73fUfvSUz4JXYbVcWvlBroNF61tUapflFzuBGryHqzBP16tYtgobTdtIXh dWxsI R30eIrfAGbmWMIxMfPueLgqWAP3SHNaDVLkaiCkaTJqbYyzNGY6GCZxYRWqliBzdNQ2TTvhMXVJTY49q Gwgbn ImsKYwwZgqXTS6ZMKlABSymsBucHH3ANMoNPUHDD21nDmvpfOpbHJnkRwbGX91jCglbbZupYYrtZlgOZ U3NiA iXZWsupKtcZAevVimJZC5LVJaMSXhbzKgxHMouNkoBD60iXcuESmtKYPhXkBwmNxrHP21jYbviyCkwUY 1NzIg PGURDR32nVlzriTlhEL2KesgLEHFGU74gAiiXUD9JOHwBiMcqBxuUWK8HeBxMOTewtYowFQwlDleEWW6 MiAwI ONzlkWfwBG2WiZnFUOUKN73vWgyTKVrLHUvUfMleJlgKK57ePtlVRR5GYAkPcJtdJipDLC5NIXqMQXgl nVsbC Q3MIFdWOZXRNY8EXCrFTEmluSdrDTbvDwqBV15wUjmgvIvbUAqrIxvIM40rUpuNTN6WYPzArJspRzgVI 51bGw wRYS1CIBqRvAhhPksGWQjDLRfRORebcTghAJanRllRXIsSnAvHGZeghLjjTR9McScLIMYVV19uLiemuS sbCA1 JwyiXBOZJX27rEwvRNI4ZQGyFzYlfZcuGB18vEglVVB0OCMfIwJxnLpgYQGnJkTqAAGtgxPgcNJtpAbz IDUyM CNeCYIeidPyuIX0JQcgMIEFPR01yWhbpaFdgFJ5OYDrCMKZLT67bNzxSZD7HRWtBgQcjKhaAQ46gAomd nVsbC OcdEliYURfGMKwLYEqiqYdaUSwuPauCGKwQfFmREAtvtGrhTA8DUZdNLZOHG98oTslyoUmtCJ5IAsvHO BSIG5 5aAhgRGy9QMNaZsVwzTtoAV42cSmaCEr3EBJxEpYgjPqlFOG7BZWmCOFizrRfrMSqgSkyEA27kRiksrP sbCBu dRegWE13rVremoZvxNA1PBDaEWINRM59fNcadeMskSDehHriVV63pPprlfClbIZkbAkdRU17xRbvqjPw bCBud VrsDG36jBmmMSs5RJLoVtYnbOhmHT19sYxdqoQfjVZzlQyuPWU7VeYyXYMmdhElwOUnsSfbYJ17vGtiI Dc5ID MwZdN1RWIuQGFXFG34jBwzrjWhpHOyyIwfSLK6LuJpCOGeFVb3NIQoDuNzjZjkXI11lNogrbOicYM9Zf MgMCB UMHH4IBAdCNFrpnJtbBUklQcrIJ99wZkcdiNytVYrpHnfML47yVdkeaVbbFNdyPkjHO53yCxyIFX8ZIK gUiBu rHazPO67jSqzuaRdoSFpuBsqEPR6GZFdOSHdIEYuGSWyFcTgeDvhCXG7DQWtNRMwGMMkATTxHuWupOkz IDQ1M oXhPGOzRVW9LWYdDyWsqJvtDYR2KLVcTIAiWQF7OKXnQqNceQdxSM24vOtgpmCwwOHseDfcJY25bPbqc nVsbC Y3PGWhXLUFTU42zIrdnrWxnXP0ZoGzWCGSWX34rPyjIIIcVCZlJmUokZfqGZWmIKBgDGEjzaXjySO4Kf UgMCB CDR19aTmeSZI8RLDeKqBbaHgqDDPfFcHsUHAzkaMscBS5YezlCYBBCL11hCmwJWO6IZVmPgZpmJjbQJO 0MCAw RKFsryAttQV6XXUrNZWECEJ2WKPbZBSnglLwgCU9PBObABWMEG75mRjxvoWueWD7FaObHKFGHO16nDeo NDIzI WOjBiCfrCjuIRNvYIHmUHErhePfpZX4RhGtITYCUA68uReeDGY4QFOgZoJfwJppIINxSdUwGEObhhNtg CA0Mj ghWAKIHU08pCsxCQZ0WIIhBvStlYmoDTBuORWuNNTfqpQtrWI4ZjHqDZWKCC60lNmximYlyYA4EyAqWR BSIG5 2hCajWDVlBDLyAuCuwSeiFX61cXhjXOT4QTKaUiUriLwzHNLnBUUrSHTmkeHqoKCygStdBPHuZdDiKKB gbnVs sBD0ZVEfRGXDEB70hErqPPM6YOFxQePhwNpwNZJpUGVfYBWckcIdeIQ4VNNkGEIZMO65tCxeGLQtRDYz UiBud YbhLQWtKJCmLAHiglUgxNB6VMHgLAXRWH07hDkzuiNuhXUbZWrgIUGJOI99qYfcSph9NZFqSsVaRUrzK CBSIG 19nHhinvQiyYWgDDVzQUMZZL28aVcqGnciPDAbCrDjeTznLA53pOpvPwbzVDXcGoMgeFcnVSR6HSJdDT IgbnV xmDCtZHPjKHOUGP84uOfxYwl3DADaCdEhoQyuDRQ7QORfINZgmnZntEZzYPioCSLOJR86kMhkFzo0QUF gUiBu fQxzPWS3UJFfRFXrdrLttDIccYqkOJK7PpFjDAEdfeXnbRXcOlFxQFHCHBR3ZnZpIPKgwtAbnUYnhYpq IDM2O WKmTBBzjrVhhKUwMjhwDVBKPZ14tFgsthOviCLcJxnbRBXYXA87qVylDhP6XJGoJxMmxIchTMD3OAKaE FIgbn YebJJcUgWsDAGXIL24cFsaNqEsOWRgNiCrkSadXMM9CgRbUKAacaGfbCCjTvFrFLZSFI26pEluLyClCE AgUiB jsSafTN97yXizKvD4TWBoGwLclOgwLP20sAmrVqD2QHKhThKttXdwEQOnUnQbBIStkbOxeOVrBavoIFC SIG51 bFpcCsO2ZMGmOlLsbEbxYXNtANYqKKYbawHoeJKeNNBtXNDBYW72pBnhHbAyIKUeOpXpeNrnSBL7PdBd IFIgb bKshFFoYQIvFQWEFO99jOvpQiW9CJFkXfWakHfiKLN9PSPgORYdbsMbxENdHKQmJXRCZEJ7AnLlWLIke nVsbC HjkPmpXWCyFkPxYXYxzuVxeRSrAqQgGYZKMQ54aSraalCiyLEkBxKxLCGICS77dEniIuN6HNSjEpImyK xsIDM xNPKaMQEvpaVkqLBhVvtpWUURNB85oIhoOuZ2FXOoGlAtsDfrJSUaEMAeONTzxaDmnBDeBjUkGPQXTT6 1bGwg IzUmBZMaRcXueFnuEW21oIrjPkWkPRKoLmItcClyNANpMFFlFOPdBhIgEXMxXvZjmHrwIA17vPguPdF9 IDAgU dOpuTnaCVSdVzDnQTVlfdAxdXYcnTmuGLYlIUAhCJAvlnBqlZQeNGBySSPHIZ18rCegYnDhCIPsOrSrb WxsID DqZjJfGCSvdeHbfTQxBQXmAYFLCY78bUglQlAhBLQnTiNrwLvoVMW2QXMkJCSkveRqiUAbEQxpZSCUYY 51bGw bwzXgnPSaBSUeXUMNLT19yWimTii1ZHGfDlUcPUKsTTDWCG25bUwyemEsvNQtAYLyWMKAMX42wRuuPnk xIDAg ErXubUwcAW27vKipHdoyUAWbUtSsvCiaWIV6COHtNYXlupRoaOJmIhapCIDUNQ01zLeyYyv3ADEtWpUs dWxsI HG5YgPjBTBphcUfjDEbWnAcKCVTUV43jYqlVpv9ZIEgYuEykSpkYXE4RoDaTUWbgiGwcXEkfQdyYMO6M SAwIF OlryNkcRJmRtBwPFGMRL11mLifLgF7WAOyUkKhlDovNYN0IVSfUBYitcHcfTGpRZazFGCGFC60rOsxLa U2IDA gZbXjsXafJFB5ATVgMNQhbjPaxDJcVUFoDJEJKP43pYmzWhMsVASdCnMpdPjgYBM0HcUvMCMoZhJsJA8 iagoy FVKoQI3lkyseXLX2MKCnWrAusDijUK70tGvxNHDrCIKoMnVerXriLF69rAikeiHngEMbBGKcOGUMVT33 bGwgb jHgeJNsEwxjXWXQCI59pVoeqtNosPWbDyViQLQRJA73dXldcdMhxINaOtUpJAEUOB23rQcxexRtqGEhO zIgMC DLGY32oEqkbjXshYCxCtCzJGFVGH39hYxeteSyiMHpDxjzJBEQDA01bGbjewGxfHEpYlVzJAPLKT04kD wgbnV xxIStUlLcBYPOST39qJedehBivTKuFmHeXRGBNL18aSrkyiPcuVRdqWfzITFuYIIpBOPhcfVvqWIevTc sIG51 dVcgvcApcBQrqOsoLT57aNdhwnZsgMAbXuZnDOVHWU59wBluxwEdtXClEAyaLPJZLG13nGpkuxSiqYMd dWxsI M33nVbmyhGxtZRtnWzcKT57tOojliLqdFUzuAfkVIE5LKZvDAIaplUmrIIeOJPzKWDKSL46oIappsEfm CAyMz dhKPLJKY20vOtjDoW9DECkJyIhrBmlGS11fIwkVfG5PBPcDfNjsSdqYFEcWQCnESOeizSghNXrDzIuLE BSIG5 1gNxsUcOnDNZsNjTitIfeTLXlWELvYEOqdpDemINoPkLxMVNROC94kYmcMtA4SPJxWrGsxLswDFIbNXG wIFIg iyLdaSTleIooEWVySfDnGIVnUoZ1QPSnDqMukGdjGNLvLQDjOZTnsjVzuLSsBYFaOVSWTPJsEXZsEREt bnVsb NHpfVaqPZZbWcOePCIoinOzgWEcNQMjHLKVSF01oYzaQxFfPYWgXoJeuYleJNYdVNVgOINukpGanDMiJ DkgMC DLTO08vZpfHwO8BLYhTbZyzDbiGS33yVtlHJl3OREyDpMgeGpnSYX1WjTdNPBizrXkoTWllKfsZPH1Nb AwIFI btzUymSXqGATtAKSNHS46mNvrrbLnaXBhGGNoJKOJHV72sQykMKxqLUXiNxDlhVinZPN2TFItTHIralS sbCAx SEjlPIUERA79dOmaNWo8ZXPgRxStjMdzCWI3WfWyWFRkagAedCYbRWIaPBWIZL70yOwzXDi0PGRaUiAd dWxsI C35eHqxPRziDOTlYzEuoAbbLYD9PFSwRZScKYtpSMCtFvUneKbdBE02uGsjwmWhuEVfgWtzOM59rOmgt nVsbC KhiXflPQ91rGrmDJPeEMVoHxQ9MqFsFHLvtsZaqEGrnOgbTUTxMSHuEQSdCAduMEGLVG10pFlfmmOxsN A5OSA aIOAfZFjdMAKIQC60rNlkclZdsOCboHuiHY66kLenSAVpHYWLZNmpCEXmNgZhbQnjJU93mKlkneMskXT udWxs YVsuMLOnLxC4VKRlKUNigtSzlGCoyUliLE38pZivorDdlCLbjXipKS98vYkqsoTdyQSfhEqmWI99yIya bnVsb TFiyDarRN93yArvuyAugMXyzCcqZQwnpvMoHkxVRvnhLFXcEmqMOlXpKlprOZCOJU22qClyEVIoXbCoF FIgbn OgkEGfCpEyBUSmSqYpmMfiUDNpDaFgMEMKFV00dOxtxuPaeWIjKmK7TGFfXsIfpAgfUOSiEvIxNFYSGJ 51bGw uPAYkBeElVKRauoKfeCVzWyJaIUZaVsDugLqzCEUdUdQqZQTHCL09bZbdLROpZeMfONHimrCdmYBhGnV yIDAg Oh8KVS8gg0BbUwOmPMGjr1NlWvlzAXYlBEEkpgUqkGLqXcGjXKHaLgRcCMWKZA61rNcyywJppQHqPaAr IFIgM xSuMIXYLXPeGQStKiFvUOGkCEWsDiZhFAHRDRBvKQZePbQhYAQaIZHqOrEtIZFTBS78uMzuQcAyALVJH DMxID CuKaApXJJkYAGrJoJxMSNCWE85dRzimuLybYTgqFxpYM58mJrdktQrlMJzkGueDJS8LRFpIcNpItApPV IgMzY pVGWEKNS0VIRuEtWmvHtoCI84vQwqfxVaiXAvcHamLPB1XIYyGfBcOFOgANWctzUydKBoNAXfSOLupwP sbCAz ZNUqGNLhvgVrkTFvgOhtMM74vKfhdoNpjVDpjYmeXYPeZPCwYxScrQkmUASaDNIhQfVoyYuuXN56nRaq bnVsb NTeuSvkDFDpRYXjKeZylAmdYLQcYIGdGc5RVF1ri7HfWsSfIBKpn5GzOic8C1gqBUNyXlLhFAGiKeCsA jI5ID YbKrYmYzTdHQNhYtW7GLdqFXLoAXWvKYHlPRXaBdXoEMHWDTV1QIY4MXJ6FTQ5RWQxYc0jOJH1LhBsLA IvUGc tXLBfWOPIL2YgKZb6Po7IUB3zv3ZbOrXxLGSem8DgNrl5W4fkEl4SFLWgUFVdFe3DZqBrUSRfKHZdDz1 QPj4K MR3ij7CzLoVxSLAvx0UtCew7T7kwCb7MUFDzMNBpQl1QExHhZNQmMCFmWr1HPv5RZM0rz0NxRsM7WPBa b2JqC rd4B7fqGJBkDAIeZCZsQRNqLIozFQVzWWKHZ9EiRJ0+GbZyPY1pgrzgIRNgGN0syph7FW1ULZV3M8AgG TEgMC POV7OlZTRcEBOfWe5MX6Sowh8+ZkXkIP8bkhulXbUkKT4yohg0SV8ZBoM8QXO6YDW5UR2MAVErPQUaLf 9QZyA nZWLrBHBcIs2XSx5FYA1ln9NtSiI0UEMne4FbAft5K6dxBuUbBIZ2ENNfTUJxOWisGIEhDBANK7BaVO8 nPj4K XT8zx2UdUtK2ECPxz8OyVxw9H9ywAxKeRAJ0BQWuUCTfAKufOWAdGJRCD0JmOT3+ZgFnKG6acknfIQOg IG9ia iu6LV0LNyJ8XBM0XC7WMRS7SAZpIu6PBeTxHZHrYPXyRz9ZBo2XUX3xn3IxYlExVGIwb1CnNks8Y6ztK DQvUC H1DHCeTWOpFForEFZfKLRON1CdPQe8Ge4PRS0po9NwFdYjPZCmk9CqJeh1Z4tqOLTcTOQ5IAPoJOPgMX cgMTA wRBPDL2CaVAz3Dy1JHE9em0IaCrFcYYAmy8HjWwm2I1tuUXNjQKH5TUFrOKTzLEefNBZoQSJIH2YeDYw 2Pj4K BS7sc3MzPxTlVMGid9AqOeu8H7igQTMlABC2AIPaYMCnPKywQLCqQXFIV8YjKFc3Dj1JZP3ll7EeWcJ3 IDAgb 5UfVnr4P9jpUPHeZTYHAENqYPOzTj2tXFJ0NQApRYAbRXdzRILkUJVZW0StSBQ+PgplbmRvYmoKNDUgM CBvYm eCRLpuEsR8NHIbKRRkIXW2LmUmPMScUNkfSXXePZXQY8AoXXG+PgplbmRvYmoKNDYgMCBvYmoKPDwvS1 s0OCA hJDPsBUhoPVGVJLR1VCFzVr6dGEP1UeFdQIOuTDuxQAIsMAZUW3TxBSDvLRe+PgplbmRvYmoKNDcgMCB vYmoK UYvfUwE0QvAmBFPdDNGjXKWyRTXiHMyrCQQdYWCAT0AuXIRcqVO+PgplbmRvYmoKNDggMCBvYmoKPDwv SyA1M LQzGUBlJFZ4PrGbXHMqZNpnJYUzDLSNM8SrYSS+ZrembuTiKmaRTZawQONhErzEWFkmQiM6IZVwMHTuD CA0Ni ToNMMpYDhoNSGqJBDJW4SaVPR+KrogurRbUdlNACMuQWWvSagJKVmjV0y9WYVrPDYvKSTfYEIVPX7MGD Q5IDA zVb5RHpXsZQBbZDLvIx5NAE3+OzRmRX4rmbh1SRHmUE3tmux0VI7JFyF0ORSfEmCiInNaJFIoHJBlYYT SXS9Q YOX7IBMuYn9QPfXbBZFtPJHkXu0JVO5+FvAhEA7dcqh3IdRsJK8bdwl3WA4GQGHeBTUzMo1SXNBsBHNa Ui9QZ nIgCBSuCDIjGh9CIOOnYM9+ZcOiNM2eifc7ZyPwMC5acnm5EZ7OIOZ9PKEjVn4DANPmMNKvSp3MQcTmX CAwIF RyHz0MGs8tcK1+XuRuHM5xwbq4DVFsCG0dmts7WI6BRtX9SHVdZeP1FqPiWHSoH9LtIAMtOICJL7BsZZ EwIDA vYs9QU6LDDd1TWA7pm3SpUtR2MBPof0LgOra0J6uzZlwbTLUSWAQ2EMXeLlYeBZCbGUCpE7HqQCHuZCG SL1Bn YBWoGSVjJu3JF1VWWn1NQA8bz0AcTiZ9OVWzb4CvGhi1Z0PeITNdVPKJH1TiSRQ+PgplbmRvYmoKNTcg MCBvY hzBQBvcXoXcRMWqCILlNQB8KKFrMWXiTMtvNQTkEFHVV3AqJJC+PgplbmRvYmoKNTggMCBvYmoKPDwvS yA1Ny YbFKMyYCO4TOUxWWPxBLxqWMSgQWKAT9UnEUW+WrheheVzEhpISXeoCHFiQzjDFWypBfR5NAEcCYFkJA A2MCA mXVWsIJwmIPLvUQLWC3XeOPJlWFg+CfkjarYkSzhHWnFlTOWwFhvFNCuvLhS9JVChXPQwQRF4RGIlNOC vUGcg TCNzFACHG7NqFIPxpWN+RnichhXvCpaRHjOxNJRdTikWDJfjB2rpZnYiQJCoJfDsUzBrMFLcXoVdAnIa IDAgU cI8SNVtPGNmT0JpQjIvITANJ7PdLBJjDOKOS2JtTHn6Jy7FXD0fb0DaHySiDSRtu1NwOce3Y4FsC4Xvy kFydC 6DWhBlJEXqBcP9QGXrIITpOdYjMEXZQF7NZWXxHVUuUt4NT8VpjHijxYB+PgplbmRvYmoKNjMgMCBvYm oKPDw yZ6b4QVChHTDkFbWuVVVLQKC8YTIkGrS1VUAoDYPfHdyjRDSDCKilMQZuTuR3GISqIRZaRmChBMNFUUu zIDAg LkI5ZKQkJJAsVnOrZVMRKLt5HMFoCoT6SnLoQFPiKnkzFSCSGUf3SRHmOsU9VCPgKXAsMOKbGOZJFF0H IDYyI EAwGw3VEjRxYdT9FZIgOf3NC6Sxzq7+EbHsDH5hppq1STNuNU5yqdo1PT5RTLFeVNYrSn2IU9V+Pgplb mRvYm rIToTfNKYfCgxVRSfvOuKmG1CoAtCkWVZRK4YjMUOdDYPiLWDOX8BhWOQ+PgplbmRvYmoKNjYgMCBvYm oKPDw wRbQcBBV1CYUpTw4ZJTImSIKvRi9AIoBvWjB8GUWfFo6VB8FfUfsaXx7SOD0ub6UjSbI2GRIku7NrRlt 8L0sg MVOlXHEgXy1YRMOvXSHyXs0KSiFyJdJ1SXYhFe1ZB9ZfXeloFk5TIF4lg4AdFaM7KAIlx0ZvJzn5D0tp ODE2I VYzQy2QUDClKPDyXv1VAuFtQsL6OHFjCm9OG4XyYicbFa2CIY2yg9ByBtO7VNRlo7RoFdh7Z9jrOta0A DAgUi 6UNEXwNBEsHe3OJtWsNsL4KBDxWl1SA4KpFquaYi2GKF8oq0HnRdwpWHYva7HkQxo5L2mcJxN1NPWrJj A3NTY nEHFYYBi7TuUdNQFnDuN4AVMkIs1dNJK1YkXaNJUhLVbnUWC5AvPdORCfMa8TSZKxNX4+VhPhBD0eraz 3MSAw WD1jtyk5FP6KKfM7USFvQNNeCsAzUAApWe1sBZF3OtGjNFOeRLpuUBMoZWQjXn5RWAVtNK6+TaVeRV1w ago3M wBdFH1jmnv2VO3HQkPuOPFoBFOkVwHvQKLrAv0cJUR3PgPfKFCfSNjjPEOzAVNfQj5LHVDtXD3+CmVuZ G9iag z1NtDaGF2aqtl6XX5SGhE9VUCoWOGvXGe5PGYfKi1qJBT8EnSxHVBiZDtwOGHgKWCeWw5HGYGgUH5+Cm VuZG9 euhg9TSDzEN7gwgd3LM8GGmAoNWHoXJMqMGT5FTCyAp0qRWA6PyXkRTYrIBtmCZOcVVGfQe4SFLQwPE8 +CmVu IO9dluf4APGwXF0wgxm5OI7QWTWtOMItJPZjMVI1PhUfJURiGVjjUIYxDZQuAc7FSUHhLQ0+RwVnEW0d ago3N aAgGV2wbin5AN4DLTJ9ErXbCPKoQFE5QpEqUYWpNAnrDPBiIBAtOe5SBYGbKT7+GvZfPW8lcvk3NkQqX G9iag x1PC1CRCB2DAQwHWOnZAY8XbPzSXDjPJluFICbHCLeYz3INm0JZR2zd8BiWfn3HQDdi4IsYos6U5gbJT Q1IDA aMgK1AJSaGEHHER7FCJKuUHZtLy2BPoLzWTGlCd0QT2ExPglhAf3QLY7xj7XwPxx3VSKth7FwZkr1P5m gMTQ2 AWQtBq9FJRYiORAsDh2NLaQlGZKjHu8DJ5UxPnqkPs5ZYB0fq6AcJbhzLHVgo2FeNld5W7teNYBaPBFp Ui9QI VLwMTKkGq0CUnXoGFLdXo2TK0FvTvpuOl7GPA6rs9AvLspzXHLzc5SyQor6E1ilJCZkPEAHV4OoXoAlI CBSL1 CgMPShULFVY3KsLGXbfEB+XbknxpEqRwcCCHFeXXPoMruRZCkbU0u9KzIgFVWnWSKhGAMVCCl7INDiBq A4NiA hBXJwU6YoDWLuOIMGC4KiFGFfSQZBJ2VwEPYtVNj+GvnncdKyPhaEIRBsCFSeFdcBRMdlGvC8WXIgKLT vUCA4 ZsPmMKRlBZtmYtAwODMvFa0OFa1+HeVbCA6xdqa7XPSbRI6dror2HW7BVAqpLYYxMm6WLJbhPNEdNh6E ZyAzI QPhBq5NP0TAWc6REH1ed2CkSpb5VTBvv9AfZrz0R3dmFXcdOQOPR6YiPGDgIHYTB2QlOLLzYOEUR2BuO FI+Pg dhrtPcVmfTFWInUQGbJaeKVPoiZrL5YqEgUCLcFVW5WqUaGCWaRRgqHoSkXXBaCu3MBo4+QbNbLR1awp o4NyA rZR8roxi8ND7ASNr8EAGyWe5FXVd0NFJlTh3XHxCqKLIgGq0TO4FEGy2LMS9vp4StFhb4PKKus0ZxEen 8L1Ag QZuqZJYIX5FpPSFbhKE+IxgbpyEeRwrKQBjvQDZbXhzJJWbwDsS6RQHwBJJvYTJ0IVAdXPQcSIahDbTx IFIvU y9URD4+OzXnOM6rrwl9DTFiAU3wqnh7SF1AAgsiSZAlNfLwAyfsQ6NxMEmlYGOQV1NhFVBuAAJLY3KeE Gl2Pj 7HIH8sf6NhTzjsULErx9CvPab9M2koSLW3F6FzHOXoHHIJG7GcVKGzOSGVU5ZcLU6+KcMvQG3htlp8Un AwIG9 mnbm5FK9BFExwTJIvOg1QKVa4IUNmMl8AZmRgGPScIm2UO7ARYi2JVO0zz2SzTpcgHCDlm9AsUmc3R6x bOTQg FBLGFJG9Yc1mNHR5KnRtDEXfXDvoHpMnGIAfMj4NmET+PgplbmRvYmoKOTQgMCBvYmoKPDwvSyAxNjEv UCA5M iWfRMChIDnpJqTvWRHyJo1RQr8EQF5if5PbPsv9BBTdy5OwIne8E8umPOWdLFCCRZx8AZNgIjB8VBQoG FJdL1 PeDITgGJGXB0WbHEPnMNOPO8KaZPB+RuwumkOhGuiQZMWrNVEiRpvCHZhdF4alTHUjFHLJCWE0II5iUC A5NSA jRQFqCJnkTnZnFXWqFz3TlWK+SkrpupCxOxyODUfkUKVgWwpNFHspD1doNRPxDLHCDNW6Fs5fNHG7NHQ wIFIv SWnoHbSyVDLnSw7GsTZ+UjmpfwAmAcqEYPiiRJFoMgyVDWakE9n6KLMnKAXlAPG2YP1ZUTk5ONYbXh4W ZyAzI IWmBr5VW2Ihcu0+ZiBlPO8yybj2JMXuNW4pekr0PD1UKVY4NV9EWVo2ULWfJn5BEwLoXEDxWp9YK6R+P gplbm BoLjbVBHYhYYJxk7ZcRds1J1qmWDSgX7OkTVkyHLUHR2RaJXBaWNTNB9IgFO1+IwNcRN3buwtmYXZaCJ BvYmo VDNcsNuKbWNcpQJH2VqOrKIVnHNzpBvYtDGJbIy3QVg0NNS9zc8JvPmQsBdQnWV2lsca4XZ5GSPBzAtA wIFIv RWE6HRClYHJuOHtsFhHwEYDkUp2QBg9rkE7+QuClDS8volnqPLQdJQHuOreOCPgbPmEpWTCcKVFAE0Yn MTAyI IAaOx7UTqCoDWTePj0OZ7ITQb0HIP7tu2OiRsFwYXXbZB3uktl6LR6WDSUzWDSqZJSsNCBqXVEvGBAFL 1BnID ObGOWSW2ZsFOP+DnlisdRgSqmMJVR1PFFdc3GyZnb3U3niUOU2INAlDs8UAZIjZMHbUPHkPJgqQrXiKB IvUy9 FQu5XQD7js7ZrCnFnLjAyGB9jqyz5YJ4YUKCdXgCuSVWaWVPxTKDyAMNVE1HkHCYfFNYPA2NoVUFiaHA +Pgpl glKnWdpQYOJ4SDCwd9HdOkg4O1bbFWM1PPDmVcIuERlpPJEKKVLgAAAwDUKpKOIfNXBxVgJvNXSlELHN IDExM tNmULInJHF9HJDyLeWkUOHhJIMQIDHvWjDmKLTpJDM7GPVwRb6cGUSjWDSyNHWNR5AzUGFbSBJDJ7HdZ EJvZH k+JgtixyKtQidZBGR4EEKrx7MaXzr7P7acSON7RRHoQk7UVSOqEjOuOAFfWMbxFuHmYWRtEr8UNg5+Cm VuZG9 czdyyDErhJYQkTuiVWYbeC4yqIvyzDBRZOPT6HCRiAXZrB9EcFWB3UIYrJv9LXhKeCIPdMd2AA7QLCw3 KZW5k p2EgGfCtREXtUP0bhzj9EB6GKVUgPjExWJPbPNLkQCbaJRSBB4ZuWGBrCSXVN1ZiLDQ+PgplbmRvYmoK MTExI KKix7WzYqp4P3yzWGL1YZKgCj2PRMJoPxYbMXVuKOcgGrLaXOAuUb7UWz5+UeIgPX0fsjweQZJeZDSjX moKPD fkUsDrUgLlUIWVA9PiZVT9SUGoDi0YHzSjAOVuRb3KM3ZRZf3AIG5xz5UuZlNhCsXeGQ0hcek9WD3ZQr EyOSA uULBlINUsJCPhIa7bIDRaXVzyGZUVP2VtQTWiOLVJX3VkADD+EdtyvdByLquNQJA2CFLzd0SgOhe2O7t gMTI3 QGXoGc6DHUEbFcFrEMVqEKyjNlRuQSQjUv4TLp9+DjBhEC7kjtepPLPrGUPmSooLXZkuWuIyNtZzLIVL L1AgM TA3HQNfXi1KBkDwXNRjFj4AH7VASh8FNU7hi1EyYcSkEwOoZJ5yxvx1IG1WNYOmBlZzRXQlVSWqDEdrC CBSL1 AcCYWvNFQGZ0HbMJK+XcuxqhIvYdtRERC5ARNui0QcSpl9J8scJOI5WMKyGjUtQTdaYPZISH7VEYWjSm AwIFI iIPkjWcZlAUGeFe3KKq9+KoZvJO4ulwtjVZayJJChDvaLMLymRjAhIuFzDMWWB4MmYPM3QAAtRl2FOmN zIDAg Zg1ZS0XCOn0SQW5fj3NjXxWqAFHlLL7liss5XZ4XQWElCIQtSZFjVRRiQSzjCQVKC5DkFAHlCKQHC3Ry VEQ+P exgzgCtEuzAEYCnIUUhl3ZhVfv0X9ozOZZgEQEoLr0FLOJbXVTiRGRyXKgmAnAgMMQxHx2ScNY+Pgplb mRvYm zEMOWtFBKmb6BgOgs8C9dnNqfqSFWuQxDqSGMMS6LsPBRqXJWEF6YcAM8+KaQrMO9mqmdsKqBeSYOnHt oKPDw oCdNxXC3QJLOtULYxZESjJFxaRbVbPXZzLe7FTa7DDF0jh8CrSmHvPuUaDF9vryq7WW8INERpMNObFKJ vUCAx WIXwIRPGJ4AnWXReRSSKP3GvFLG+WdjluqCrWedGDSB6EEBmc4AlTmy0O0hyAkJeKKHlNbYsJULOT0Go IDMgM GUWT1BiQH8+ZuVuJS7vifmtFkWjQXDfTdrPJTejDcYjUoReEYVDJ4MqEOH5DZCtKl3SDgDzNFJfGl2SM 1REPj 8IPF3tn4KvAeFgQwHrQX7zkeb9GH1DSGC2W2IwJOA0SBRzFr6EFxClKYNbAq3JB0X+PgplbmRvYmoKMT I3IDA el4MdUzj4I8ghNKN6SDUyNh8DPIYyXVWsHCAjYUfjLyWwUVQwPv8CEA1+KvSwCT9ogrkqJkjfGEIuGyz KPDwv TuPtBW4KKMJyUcDgZMHrOOrpGiGyKHLmWt5UNk4MYD1vo8HmGdFdGMXpJB5byye8NW7KCXHzNqKmPQIu UCAxM BLyYUAWG2LzLCVzVLMKI9JkYAK+MmzfqjVzNgqNNQAmPYIrb8NpTmb6O8neBFVtGBQxGh5TEFPlMuTgJ FIvUG zaMpXdEWSwLz7SWH5+LaNhAS9nggqvIoIwMHZrTorOWVspBtQbDu1GXCMiVFSdTCFiBAmmCtFpIAIxAg 9EaXY +UrdoymTiShaXYQDkGVPrc3GvAjd7Q2qgIVnfOWKoEskeXRDQZ7BzBQJnNDARS2QyDB8+BdAqSN3vruu xMzMg ACMvSkxVGAejKmGpUkNnFASDP9WdSIWgDWSdQc9DLrJdISXdOu8LW6MJRk8MEA4hj4YqSrEiOKJgVN4e ago8P C4HVYA9W8JpQCFwUXAcWv2MMmFmJZHiVv1HJ4E+TsjchmVuSfpAHOU8QYDnt4CiWzs5C7omHDF0PWJkR i9QID ZdAPAeOPDcLDdnYjIuONNoOj8UZC9+HtObUP6rkyisKgDvVQQlAjgXBIvbGdWtPc4RJUItPDNnREQoRS cgMyA fQAHxAm8GYp9WEU0co7TaXoKfRbFrPH1zjrd9ZN5QLOAgYUBsXCHxZTXmDWWeWRVDY9AtNCLpQTNNP8P vVEQ+ BeynrtZvWtgJVTE1PLMsc5TsBtu1C2bgMANsNWQnUxeyHXBIN9KxDULsHSELN1CoMK1+HoNyFG4bneng MzkgM SYsRbwMBJwqYhJpGZTtBWUDA2HaHPZ7PIQgVn4LYgPhEBWcGj2HF9ASMs7JKQ6ni5GeBkH6VPDoLU7lu go8PC 1XHIL6YLQwMZWoMLMtKQieTWQTV7LaIICqAPCST8VbOWX+KaolhpKtIdqBOPDlQXSmv7RkVxr7Z7yxSB QyIDA hFq9HGRW3YLOsHFNeKJfgYsGmHSQwOe5OqHK+VwgetsRgNrwRTBJfLENyu4AeFwd0V2eyJb1MXEY4UTL wIFIv BPauQiErFAQjKf9BIb7WWB2bc8SuWgH3OiZjVI1aevm7AU0AOWBqVCGkXrlvALGEV4IeFGYkSCSNX2Iw UD4+C jBzBS3kwcqqSHPqYKZiQzfFGAduAbXpJHWpLLJCW2FjTYV6EBUzMy1DUsJfDDGpHe2PO1QPHo3OGB3sp 2JqCj H6TPKeVS1yone0WN2PPGKhNLAxLHUqYDREI6WpJJXfEIUIA7VoLU0+KmFrPS1lxxcoVODbJWTyAroFSX wvS1s hFHisVQDYMBX4QALqUXTxFMO3DNSpVrSiARNmNEXJMRK2PGVeWAWyHQJdJQMgCyOtWICvEYWTFXX8TIV wIFIg ZPJ3LIBwTsDqVIDcOSURXBO6EzBbMJEaMKB8GUXsByUpZBjdSCJJNIW4LELxSOKlAKMtULZyZpViIcLg MCBSI GC4DqKmUHIwJTZ6DXMvUtXlYfHqVOEYSEW7DsPmZSToBTT7UZMoAiBzTnlmPTQNUW3UMWq7VDFoNl3WB yAxID OwZv4PA1GYg8G5Xe6JYZ8ph6HyKnE6HwCnAB0wdbr3AC6DFTD5FwKqKNQgZBBkQBWiNRNBB5StRFYjCE BSL1M vVFI+JbqezuPnVjrZLVE9ICQrs0ByWup2R3pbFIOfISQoJxH2MbOyAWRAVDXlXVFnXWRgKZX9VEWoFiI 0MzYg HCSUMRKsFiUiYZLvGUD1JBTxHnD4UqbyABQBIMG4OWGtMIRvEDTbGWMwFwG4WPFnPXIREM7YCBS1NxXj IFIvU FlaXWDkDWDtEo4ZCl4+IsIqFH0vpyewULtdSFVmWkcEHCltU9e3UcSePWZJQOKxGeQhLJLzYKO8BFNgA iA0Mj JnMGMIUPPiFnDsDGScQWT2JCInAoK6ObxkDNMAYRWpGWMjQUOwTTXfFDPjUwV7MgKoCZSXVS0KZLY5So AwIFI pEKvdMHTmUUGvSd8EDy8+ArWrKJ8ywmtvPXUdIXGoUjrAYTwyB8a9VqCbSBKOSHKfRSOjJWIwY7TfGPW 2IDAg Mk2JNuZnORFeCi2TI2SEBd1YCV5ey8EpBkY2GNOkAQ7lhqe9WC2XDhP9UCKvOXEcFHOkIPPdDrL9LWMa MCBSI ZOsXqKfADCdVTOyRDLqKjO6HTYlJIZXASOyJXOjZCIjUMP3GQDdMbM3TQjaPQIMPTZmJPBdFTEpSBA3G DAgUl 3eCSUpDMDrJYVNX7UmCPZmFPCES0WqFNX+OwncyqUdAkhOIACwVDHsz0JwWlh6Y1qcZbj3UDMgRfEvHX YgMCB KXL0JSUS1DeCyLWIxSXdyPFGkHVFmJt0YOc2+IgSvVI0lgyrrJRDhTUCdYsxRAWdmF5odBxDuLYODWGB 3NSAw OCYmOvj4NTLiPjCyCdnbIRUKMAX3KPVcKSIhBxn7GGEnUpPtVCOgBMPSEUF7MPMvNSNzHzppEEWpVfJi ODMgM KWIBQF0DOHvCSQfX9PsEYL3PPSfZe5TJtAzQBJhZr7AG9VKXk0LBC8wp8QlHdZ1VXShCJ9ozzf5OR3UI zM3MC PhUEWuZkraPTCpDl9vNELtIATxREZWH6WkSZLpQNBJD7WmCIZ+OppgxgDjUutBNMP8VIPvl3YxYge5A1 tbMzQ 0XQExAxGhODAvHGDEPUL0FJBnVWTsSoXnGIUzAgIgCJBmKIACSUB7ALGgLWPsTiF8KCWyZdKpXANoROM SIDM1 BcRkIMJeQjB9BEWrPsQzAAruHYRAIG0GQWR4WeAjNWQkGGdmFGFcECGqNt0SIz5+NtFpEW9cvyetHUVc MCBvY oeYVSvhN9uvPgBpXFDKVNAfAVIeQGTnY8ReTJX4ESOaJa2TElSeFZYfHh3QS7WIKr9ZUS0lm1NyStD8U yAwIG 0aqhn5QA0LQxXeQgNbUVAyHrCnGHQkJdNtAIWuATRKUHSvTANsMSNoWkH5JWOyVcEzBVmfYBRGPYRlRL AwIFI sMvS4BLNuDgYmGfLrUAMZKWAwQMMjVWEhRwKxBBPiSt5mBGMlLSEvWZFCX7UdCLVyZDOWW9RaWAY+Pgp lbmRv ItzHOCD9QPJcp6NwEpn3B8hsKkG9GPEoXqOgAPaqPXYZJQ9VWEU6CeLcFKDeVFrcMRKlSKFsTv5QVg4+ CmVuZ Z0wlkjhRGnfHBJnGgpCUNzdN0pbHJxvCVCWQOE2ZSCaYJNzUij0IMVoUqYiSVIhXXTBVVP1JQLuNXRwX jkyID QvUwAkINDeBMVYWZW1APGeOCHgGqg2LGUnYgPmHGYgUAWLPWX9IdTyUPTbD1TlTOA0AFKmPh6LJwWaUZ AgUi9 YG6PHPb3BXP7fz1QtMwE4VJWbGC7vyuh7BQ9LUjR3DcWyJTHqYdr7EQXnKx6rWLKwTUBbCKCVV0UhQKZ gMCBS L8QaJQZ+SkkvrvRjLpwLPATqETQab8HxPjt1R4euFiUvJOTiVpOxDuEuZKUSOHD1NMMfCLPsKhL8WHMj UiAyN tUmEMBXUQO8MmHtNGFfLvW5BIWmQnLqOtwtALSQRRS7PMQlVVHtVkyaZJZdKqGdFxRkRSSGHH8CFGV4E iAwIF FyKVmnHQBjXZCyNd4XRf6+JfVoXH3fpequGgMeFNDjVjaEPQomN0vpLAAbJQXSHMF1TcGqMKKlJqV8KU AgUiA iHSGyMTHUBTH0GzDhHPWaUrH8XCGcGlDoTIccKBDENMQ0JDHnRMWwUqUkXQBrBmWrZSAtWPWNAL1GHSL 0NiAw CDOcWXmiNROiLGAxTx8XJs6+BiEtGE1ayzjsHlNtZOEmPswQKQnjK1huZeodRAXQWABsWVYgGDWfG4Xm MTQ2I GXsGq9VNeNfIKGxXx9VB7NJPl0MUP8ds6EjEvD1CCEvSO5axbc0NK3MMsNaGpJfGKDtVhV9KIKxPpYeY TkgMC DLDUDjKAEkVCObCjFiZEEcZnXoXvRxBKWKKWSoTqKtVUVdUvQ7ZVNsQbJuEvSjXRTUTXLhUmBvQPZsHt I3IDA aHb6xJKOzEZJqFWGGK9SpCGKzWHVVX8MhKEX+DvbdjgRzBxtBWSJ1MZCrx2BwMuq5B7mkEOc8FNGqDsY xOTkg LFSEDEOtTFKkWNWbWdGgTSEfRtVfAPTqCVYXRGKoEsJbRVJhVzC9WRPiZpCkSDNvEBGJBMPvWwEbMJXv MjA3I OVsNm6qOQVbUROpHSQYR9XzWNBqOIKRM9YpFQP+IonlgoLvJahLCOC4SJXgt7YnLhl8I9jqQNb9TGHaL iAxOT VuQIQLRG2JIKL5NyDdKFTdOCkiRbGuOJNgTw6UGy0+XgPdWE4qjpowVpcfPTNxHfaMAYkuC6pjLgHrUH BSIDE 1GBJjWSYxUNo1BNPgRtWkHzFiNFKEUOH7DzFyLPGuLSq3URUtRoHeUznrTVYOXMN6ZRIsLMGxEXfyKZM gUiAx NMBcGMQIHMJ4ArRfXNHwQ3CoBYH6ENYgNv5OHpUfRVNiMy5YU7FMVz2DAC4ok6ZoIqV2NRCbTY4xwbi9 PC9LW kK8LJVtZGAxFVgwNRNyHi1kWXZeONPdJFVKD6EiRUTvMTMRL2CcZVY+QivnbkYnFaaWEDZ2BKKai7MlO jw8L0 ecHMhtZMIcQf5TJYK4UTToGJBfFTcfFdDaEZMiBa4YBU9+OgKbIF5xfisbKoMyTRBdBbwYIQwkPzQeIv EgMCB BK5ApAPX7VQFaXm2QBfPtNTJgHr5VS3CQFw1QEK3nd0TsUsO7QWFvWB7cmzh7VG5UIhSeRvOfDdfsD3W gMTcw NVXfBe1XXxDsVPEsQm7AU1H+UnjlwgRrWuuGQUtgOYGjs0KgRdc3R4avEVH1L1AyMXX4YHAhGf2VSxEj IDAgU i9TL1A+ScisftZxMnmNHMmtYXZva2BjInj5V1irDRtrONDvAt5ALUN6SnMsZYOcIOzxKbJfUVGwNw9MP D4+Cm UeFF1yljaoPnLrYFAiJwwWEMmxHqVyZGXdMZGDM8ZaEBD4GZGjKt3QNbGkAOLoJy5SL3OWCl1JAT5ic3 JqCjE 1MKJtKR7avbt3YJ2HBGZ7BxAbJBMwXp0YFV3+CyCeFM7tqinbJrTpVFEvZogCHKnbXrQtIMSjNCUVU7C gMTY3 IPUiTo6PNmEkJLOcSw7EM9ZNIi0QZT4so2DbZvN2FrMpYI9cxlu5HD6PIOK7RMLmJHZfNWWwYcujELNX L1BnI JSwRBRDU2VmEFX+YtzlocMsSosVNPf1UAZiy4DmSgt3S8fyYLo9VTNbKu6PXNA9NeMdCUKuCXmoIcOcZ FIvUy 9URD4+CvMjZX9yxmovHvyxHTDfGegBMGijHjIjPTtjBKAJN4RfAEM9HHMpMu8TTzYsUUFtRc0GU0CRGc 4KZW5 md0CrZmY8GXStTZ8pwlp3QL3BPUF1ExBvYWHqCWErKttpTLZUG6InAQTeUYURH0TkMYW+PgplbmRvYmo KMTgx TEQru7NcGlz2K2usCXg7UFRmPs4UYBX4XsCaNKNvDKrqXoHwPYFrKs7UVL5+GkDeYZ1ouvozAWZiBVYq YmoKP YwrGaOcXMBnDUJJG5QjKZV4BZSlOt8STvNeTLPzVf4WM4ZOGe1YRZ4cn5YuAwX5JiNxVH0zjpf5SK0HF DE4NC OdKGLoSEPqBemlTNSJR3UrLDQnYXYQS7BpANS+PsqfdeZuMniXCLp1XPUng1DeSbt9I8nzPQRuO3MlGR gzIDA aEx6KTwReCXBqVc8OQ2G+FcaexrUpGxbUASw5LRYpy4IwPul2S1wxHLClX3NgBIllHLJzGq5JLzVxYGB gUi9T L1A+WrgwhcPxFzsNNNf3FKJqa8JcKua1M0hxPWD3A3VoSJpbVDBmKg0CViEdNSSwPs0LQ7S+PgplbmRv YmoKM Wy1JGXha1MsXhb8V1qbKWM9F7XgHSclCSRqOw0QYbJnYQIzKq1IX5D+HnzixrEwBnzXYTf9PNFhz1SzS jw8L0 drWDI7P3HvNRn4LCArLe0NCbDoBJRkQk4PC9F+QiqfcmOdLgkRXOb0EMQbv4PpJmb4F1koIUWwD3OjGG c4IDA ySb0JQqElDNZtEv5WP1D+OmcefmKkNzrQPMieGIYie5ZzKlc2D6wsSDDxH2UhOWt7YCAqLu5LJqYdGGE gUi9T L1A+AvhhlpCzDfiMWJciULAbv4IxMml1K5pyNSX7A2KsYWh8LGNkHr9ZIcSqBQRqWj9UA5Y+PgplbmRv YmoKM VnzRTPfh7ZyZvg4M8vhXBV1A0FzNQi6QCNmYe2QHqEoYNEcUe5LW7C+NvjuicLwQxwLWZmnTLFkp2MwQ jw8L0 uuBHVcE1JhLBrhYKAoBb7RHhNdJNEcQo7IF5S+CogrheShWywZMNh1JVKmb2MuJos9B2fyNGz9AJZoAu 9QIDE 9ZkHeIHCqPAzmZmYrOKJmQt8DYG8+ElYbFN9lhnzxIPMwKFZsKjhTXQihNrOoIWBrFKDNL9DaEHO2LTV gUi9Q SqRuSWUpBo0QQ3UJOo9GUF4ix0QsFyG1JkZzLB5vdcp1EF8RIZWfPS0YFYL5NSLoCVHnUFxuKiLzBEQd Uy9QP m5QDA4qu0UfNvO0BnKpUA9srej0OW2TDXFhDM7YNBB7YCQdMJUiBLebJzRzIGAbQp1XMk2TTQ7xn2OzP jE5OC SbMJ0fyou3BC3VOXLzBsRyVZZvUWSmJdCgZCFOJ8TmDASoAHTHS0VtVRK+LzcwwvSoMmbBHLg8INGgc8 JqCjw 5S6oaGjV6HLIzXt2RNEV7POXgFUUpNZveNgDnMWVyBu0LIV6+QyAmCD1axhrsOWWwMKYsUmgWSQuiSeN yMTQg WTQKX8LwOJM3HELzWb7ELdYjTAZqAz6BY9DOTl1XMY2xv3CuUsJhMRItPU9moek5AP8XVZP8KPXeKSKz Uy9UR D4+YyQlCA7jxgasJXZuCGZtDteITZwhNaDgQGXpHKEID1EbAQV4ETItDv9MIwAeGMCwZx4MF3KDZe2UK W5kb2 EkNyNlJwNiUX6hpym7PQ8PXFMsEsLrCSVcNLWwRsQtLFJMX9DhKDAlGRWUI7IlXTY+PgplbmRvYmoKMj A0IDA at9JsRqw1T0wjBfJcRQXiYn3DPYB0VYGwXMRlGSdjRtUmHCHjVw2ZQK0+YxHiHT7llgetCJIfILUjEak KPDwv AqSuFEVbNCDPJ7SiKIX2BLSlDa8KDyAsCXJnKj8UM3MJWt1ILL7ii0GrCvOhAhNsIP7qptt0BR5ZWEKf OSAwI EAmSUFgKfQaSFQYZ4VxOJEaBRLRZ9OwPXT+AsipopCsGjhYVxM1PBPxl7YrDlq5J6afXhZ4QWJpFg8FA DE2NS PvQTOeYYjcXtNbKMJuJd2OPQ0+YwWzBU7cedghCJglIXVmAzyMHEfwUjSvECTiWFQpUGkeYZJXR6OtXO MgMCB XE4JyAI0+VcIiUY3ijzufWBelWIKtWyiUMZwfIrAkWWSeHWEuVTXoGZAUO1YqRBEwJPPKP0MoJR0+CmV uZG9i lwwqJCXiSGPbQecWDOjpYxWxROZpXPFdXTFdPUCRX4JiWEKyCLWMQ1OfRY8+VjPdSQ0svaqkBHRfLGAo YmoKP GvbAtG0VY9TXSBnILJtLQVoACdcLiWiBVAyLe4ZBy4XQD5dc0HwMjSwSkPpKY5vsie0TM9UVYl6X4HhQ jAzID QyQk7KXyGtEYYzVj1AN1C+IiwamgTzAesFBiAnEAHzv1QxDsb0O9aoGIIgPOKvWWHwPTFUF6TeZPJjVS BSL1M vUD4+NlSrUD1ybcafSAKeHVMbYcmCKIleT6g3PDO9Bt5dKQYrMTOkUPWHK3VdENZlUGSXZ6GaEY0+CmV uZG9i nrjfATFxMQErIwrSVLnfTnI6KR5RZGN0DFFbVQJoXEhkDgLgSRJhQz0BFx5VDE8ag7NgGvIwCwTkLG0c ago8P M5MOts8LEr0ND4ZFZG1GSAmTPTkVKurSmErUJUaFd4ICl0QBO5fl8IdCpBzFuWmTP4rmpp0OM4JPOKwL yAwIF GpSCFjEaAnWEMFF7IzKOLiURNHL0FyMPR+KphorgZjBmyAWhV0BKCyu2LiYep6W5lpDyG6UVDxNx5ARG E2NCA hLZZfVNodQwVvJWHxSk3OPU6+UnTeVG6rjmnnARgjHTQpGrfPIYlbVRSkUiKiBXZIY0TkZZB+PgplbmR vYmoK ObQkWYGhw1IhErd5G7zhJiM6UPYmSv1HGHP0BNQvHFZeYDyfIaTjJEQcCl5YAI1+TvCdCV7xykfkLuYu MCBvY uyIHHbtGtExSsZhGFAMN1IaGWY8FQPkWk6EUjYdTGUuQl0LY6SXKi3XKZ4ir1SiJzHuQwAaRJ8bwcx4M C9LID YxCiYsAEUrNLRxFrBbKJCVV2DoSIDeFSWPK9OoLUE+WyknbpMnPmeWYsRkNQXoz1PfDvj9F8euFjMvHJ AgUi9 NNAJ1NKGbPMLpFQncDmAtCLOoXy3DHV2+RbVhNS2rbfslAfKvIISuAogUCUcwMuFoGqRfMCLTW0KmCGD 0IDAg Sc6MCkHrFNGmJp4PI4BSZu9SDY6yd6JyBcMmQKCyJC1ajch7HB7KSJQlVEPiXXLhIYLlDhQjBWWXO1Gp IDMgM ZPRL7VfVVC+MhcyffLbBdwMGoT3XZEfn9XfMzr6H2prZrA3UGRhFz0RGTV3DRUgVWNtGCpnYqPmGXTqV y9URD 4+MqWeBY0wrqwhLkhdSFQfSmaCCWzzZdMrCgjrMEMOG4AqNYJ6HGUzNc2NJcPdEDAcIb7HS7YHUa8XXG 5kb2J qEaIxTKCjNQ6kkxp7ZU3AADncN6ReGvH3BYOdUo3PRvToXIWsRg0UD4S+XxnedoRrBvtVHiL0WIRuh8U qCjw8 B7ssWYNhLWZgFkVhESERY6UoGKUvDJBEF8HwPV0+IeLnJS5xgffuWhScAMIjUqlGBGfeIyG4LA5AHVRk NSAwI PVnIKctSvMeYBYyZa8GFk7KQO3rz2TgFlGdFJKtSW3jsvo5VL5NWVm5L8OpObN3WCUtYe1KPcYjBXQeZ i9TL1 A+AtsjlbQfHxoGYyAzRMXiv0KvOhp9N5giRiBsDULbWxWbVSCLK7JyYQNxBAOME6EpQS0+UtOdFJ6hnp oyMzM mYDBmClmWEPimAfG3Nr8QOQCmGnVlJEOhZAxnUsDdMEWrWg7QPq7LAA0vl1JsAgSdETMhAN9hyqc7ZI7 LIDcx Y9CqDgNfQUCuJo2HBmLdVKHxOc4GJ3S+JbodhkOfDabERcZ7NRMns3WuYww6Z1lqZchyVVYzToUpDPIH L1BnI JDmFCCVZ2LeBH1+RfFgSE0mghhhIyOmHANnMysGTJxeLpV1Ql5WGRSzNUOdURRaIHnkJnZmUTAjHt5UG j4KZW 4dn4QkVdWkBvUtCI0aiis9EW2AMIO6C4LoCwU9NXEpUl4WRlJpILDvGh1EX6G+QnldvqGzOdmZEnZ5ED Agb2J cTnm2P6wkFmKhTDKzNp8QEGB6OaOgSAHjAFkwLwCkVLPkBy2IRC0+BiLzEJ5lldpqSnsiXUDzPwgBOJz vSyAy OZLeUZYPG5MiHLIjTMIeZw8KTwFsKPPmSk9MH6DRYa4HFP7nf0IuMoA0FBVmKT7gvqt5CJ0ZEZKfV2Xh MjM5I XGeTi0PXpPoZUEmAn1WJ7X+OegwbxKkYcsVYlXcHIIuv7JdGxd6E1ciWEbcXINiOjowKAUXM8PiSMUiD CBSL1 MvUD4+CtQoSO6mxhscZFKjCIBfDejJSGuzEhMkGkNfDHWIQ8JiFPBuZRLuRi2HXoEaPGQkRz9TK5EYNl 4KZW5 vk0CkFcG7UgSyQW4bbgf1IX8HRKE6FBRxVYVjIYNqHlEbRBMIB9HaSCQbRUURX4NjFSP+PgplbmRvYmo KMjQ0 EHDxy7LbBqo1D5wmUbP0ETGhKk8IAMG5BoZkRBQnURocNJOtJHMkSg7KJX9+NcDvCL2tuidvVKSqQISv YmoKP CkrNnYtKCvyJNWVL3RqGZFoXCZfTa3KOkYhQEEjOz9US9HNGg0VLA8tc3NbIxA1KqAzBQ8zqny6TX0NQ DI1Ny JxVSDvPRFqBsNoOOPEE2QvPQYiSWBQQ6SvONB+RjmpwaXpYplAHzJ2RGDbm6PxSiv4K0zjCcA0IRNfTa 9QIDE 1ZwSyTIGoFYajACQqMJXqDy3ZCA3+AeCeSE2ohvehXJgqWIEaAiuAQAyzKxOaALGaCEEKS7LyHZQuJRM gUi9Q DeZeEZCuZb4RH8LMKd9WLU2hc1NaRiQ1INWtBF3xtla7VZ3FLRE3YDUlTAPsYVVyFgYrPAFDE9KiGAZm MCBSL 1MvVEQ+BsfmzsFnNpiBVpTfMFMtq8KgVhq9A3waBkEhJAQwMs3TMKX1OyGvHLUsKAfrNHOvOXQeVb8BP D4+Cm BkRS2yxkqjZGQyXARtFiqSPJnyKsUmOJPyOFAXH4ClIDKhABCcZk5VPaJqTPWxXn6KA1ZYJe0LGF1vs0 JqCjI 6FiMdKH4dfen7UW4EHOW8YM9FFBZ2ZXGxDJJoEKsdNWGvTLYzUy1ULb4IEJ6dr1ChDiD9GnLaWI7wuqi 8PC9L AOP3Cb2VZDA7CWAiBGIaADkuQBOxZWEzNy5YSn3GUC3le2TpXeY6FBHwZK6apug7UC1SSIL0ED2KHAY4 OSAwI YMeMQuvCDCpJPBjLb5ZKn3CHN1kb6ZfDzA6IVKsAT1vkzu4BJ8AYCM3PY7FAII4WSIsQHErYNdvAXOmJ FIvUy 3HAa2GOI9jt5UaSaH3VpKkCZ2rnqe6WV2DSLL4Sg4FYII2FfVzDIEfKQsmCAUsZLNrGc8FOg0ILZ8sj1 JqCjI 3NeKvOJ4bhbl3KY9TSSD8ZX4MYYP7TrQcRSQcTWwdRWRiOXCpRi4EEn0LDU9xa0WfWrP3YQWoAH4enld 8PC9L NVM7Wd6OFOR6CQWgUDPrJLkaOCLrEUNgVt2FDz8ZYK3ex0YcCzQ7BFBkCY4gilr9DM2JYmQ8MCb9R78X SUQgN QztOEyhEdIuUFAqUVffVI9TO6Y+Kp8vLIPoOUJlMTQBM8RcQMBbIJQZP8ToWY4+HxZzIT8xotudDwLvZ CBvYm hWTQmuYmT1CqnyYCTaSLOlWEWHI2EkJYRnTLFWK4VkXZ5+XmLhZD0osycjYxBkLGXtPwlJQAcpQ5s8Qa c8PC9 DW3wZAUK5X4AoJBNbYIKMO3E5xVCuSWEBKo7gH5QpTjQyLVOtAm4YXrSmOXIjFd6IC9D+PgplbmRvYmo KMjYy FZNyl5MpLer6I6inJrykCCLrTi2TNQL6OJXuOCOxAYvnUWCxAABcBe2IHC1+SsZiZY6ebbpwWoTgUMPq YmoKP IzgZnHgTVLeHSGHM7NqPKKpKDVxSx6KEfOwSZMmJj4DC0ZCGc2WQY9sv9RrObA8VGVxYM8dxym4QN9VG DE2MS SrNTOpJm8XFZ0+UhAdIK2kxquxJtDgVTIlVrdCQZfdQbKjADSgITAXR4FlSRXdESOyQi6JAuHoTCPqDw 9TL1R WGl5SPE5sj3LpVdQ6AoHaBZ1nttx7AM3MVEX6SVEyZGGzGXMeNpUwKMMQI6PhGBQhDEBDZ1JtOLL+Pgp lbmRv VkqGIwI7FGLye1AeLec5W0pkQzq6PPVvGf3EZXX7KSXhGTVeAOopWTYbBLOvPl3HHJ7+PaDkHX0ojfnc NjggM CLxLjzUCSlqJyUvOwgnBAVHO6ZeJPTfWJLbHu0XOgXzEJAbGi4LT5GATr7BQX7ve3TxZnS8RMGlFZ4ij go8PC 3UULU6GbVlVQDoHTJaOhOaIHVZZ9BvQQZaFIXWW9AuWMS+WflzhfEfTayTRseoORSge8YrTrh7Y8tiLp c1IDA lTd3ABPC4GRRtICDqLRxoTQHeKJUfKc0WTA2+MzOoFU7tjrszCcGgHUXoZiyTISraPiNxUaSwPZVBL9U gMTYx XZJzAw8WIuWxUFWeVz8PF4UAOu7MCC3ka5OlSaQ7CdPxEU4qumd9LJ9ABRJ0QjXfGSLkBNKfXmVgADPC L1BnI MGoPOGDG4CqKCE+DvjjjuOvDjjSZqijGHCiw6VgJqa2E4bmGiV2D0PbOflsIBZjNj4XOgXzMZAuGr7YY 1A+Pg capvEzDisGTke2NMItc6JbOip9B5haGjYiV4IfKkmwGQLzUx8MGzGaONHpWo4DI3U+PgplbmRvYmoKMj c1IDA fv2KbVfi0R5xiCnMuQ9HuXvuvTUPwKo2FKmDkSUKyUz6RB6D+QpomuxIzPzmTPbn8FYEbn9TtAqj6Q4d gNjI4 A9PmMxW6VKNhFp2JZvHyCZVnIt4BC1B+GhjhpxLaPdiXRwv0SEIwb5ZiChh0M7avLiZ9T8KoGkK6ZENa Ui9QZ xYoWNVxUn5OF0K+RsizumNlObbAWsp3CAAib2HzLvo9Q5wgBbW6G5NbFoB3VLDlGf0CNyHaRUXxWk6UJ 1A+Pg xgkoMoWogNTyh5CMPlf8QfJow8V5owBlXbO2TjVaJ2JKFrNi1WGbOkECLjKo6TP0F+PgplbmRvYmoKMj gwIDA an7SsAcx2A5arGmYeP3GaJrA0PVZaGb4FRiEpDTYrWn6EH2O+OdajjbWjIvaLKllxRQTmd3DuUyq8X9m gNjE3 K5PiAcPuGCItYc0AEwAzWRWmYk3NM1H+QkpzaiTgIdbCZhuzRDAli4ErFnl8L7yzPfH5P4KeItVeKBGd Ui9QZ zBqOKIjAx2RF8Z+EypsakOyQrbINhgqUHKyt9DkTkn4T5eqJsg5LRMlZh7ULJL4WHWrENYuXRraSSVjJ FIvUy 9URD4+CgYuRV8wmppxNLZfIFMbZdpCMWohRfLeINKlJLWOY6LpXMPoWQJsKb0WEdQiQNSbFp9OQ4KHGf 4KZW5 vh8EnPtD3OVZvHO2onhl2FX8PQpRnESP2TAOoS1JaHsl1KYAeNn1SHzBzDMVnAr2ON6W+PgplbmRvYmo KMjg2 TPNfk3RtWzh6D8uqIxB9J2ScGlkjBAOtVs4WYfOuAHNfBt3CV4U+TarokyPhTmySAqd7GRQji3EwRhs3 L0sgM wM1CSOlQe5ZWYP8BQAjSVTsTIwxQVPzVTQqDa9DKX6+RbIqPE6pwcteIUdpBLMtAlpXGXfxXoGxGCAoZ CBSL1 HlDVG5VNPuQl7NXjEzVVIwDu6OB4IAZq8HDO3zm7SyXvP7VGKaFL5ucmb5VC1MOJW7EPLzWWTmZz8QRV 4+CmV bKX0pvpuzZVNaQGOgOncSEJuvFuAyYVMaWHIAO9YnSVV4GDTvYg2LHvSzZEYoOo7PA8EWAu8MFL0lg5W qCjI5 USDkTC1jost0AS9JZKMvKUUfKBXiYAUzCOhbZZDDS6NuHKHcLEYTC8FxNTE+PgplbmRvYmoKMjkyIDAg b2JqC pb8G3ktIxTbZEOpFg8LIDS3WMJjTKYoHJeeNRKyKSPsBr1IFH5+SfApTY2phlqbTLGeVDJhAdjZUNbyE yAzMD PhWFGBF1GpTBW1ZEGkTg8NYyWkHTPvUy1EK0GQEp7QFZ2vu8KcXxA5YZTqNT9ulkh6UA3MNIZpUSGqDG IvUCA iVMzdQIEEV5RpSJBmWZGCA5RtDII+CddspyKwQtzQVqy3AYUjt4MpSbs6P6cyHaXpKTMlCv0XEHB0RMO wIFIv LDcdBFViSWNrGy7XHB8+IiYiWU2hzfbxECFuQWAwRblFNTcnEeWxDSkuFMZLB4PrUGT5GVIsQk1DAkYy IDAgU z5IJ3CIMu6WBL6nv0OoZyX8RcYjKS7fboa8LZ8UOTC3VXHuPAPkSZZmSEiiMQRFH4AhNIErOBGXP1EzX EQ+Pg wppxMiEsvXVmw0STIda8ArBtu9U4pjRwO9Y1FvUho2XRQfXk3WGtIiOCLnRb3JG8F+PgplbmRvYmoKMj k5IDA lk1AiElj8N3miHrF9J9VoCsr7PMEpOk4NMcIxUYOeYo4MS6N+KvrrkuJiBxzDBcReMPSak7NyTjo2F1b gNjAy X4TxXkk5ZQOcQv5LPaUyIFQgKc1UQ2U+LrocnlUxRrjZTcZrAZOon8ItExz8G0ofKmOhA1HgGea1FUVo Ui9QZ yUvYKChHw7GH0B+OhluosXuFsyUXvXrODEdx9DeUrn3Q0lkPCl6S8JxFwecWKEbBo7GUkVdKHOlVu8VY 1A+Pg vnfjBkAzzUSsBtZKHfq5YbHds6C3mbUYp1B1UtXgjuYYAjZn0HDbApREWxCn6LV4X+PgplbmRvYmoKMz A0IDA jw7ClPsq9X2xyPXr7S1BuKkwvZCPxRm1QJnOcEWDaMf4OF2N+PghurkRwAnlDSyL8UAWmq6OrJjx3A1c gNTky O2TjEftzGEMoUu7OCqDcJSZeDw5SB8U+DqfdpoXaYlrMOgX0MLXdl8BiDcu5V8rwUIs9C3VfZtu0MCBy Ui9QZ iPlLOAvYq0CB0N+GfrfiiNfNwmLLdO0PASgq1RuQdr8W3qaDDz0O5BeTha5LJRpZe0PXtChLQLkSg3GX 1A+Pg naziAeXffOYmM3NLJrj1KoLwa9K1wbWmRfANBdKs7MNBQ3CCVvVEKlVChfTDSsVLXyAz2MFT5+CmVuZG 9iago sHTmbYYJaUqvHYNvoIdLiBQNeKDASG1LeCNE4HPCeBo2LPeZbJYYsFm6CJ2CMSs4MZT8dt2UvBrRmHMS wIG9i sij6YJ9STlA4NgQ3HMYsD5KnYzU2DOCxBk2AVyZjONQlHa6RZ0J+FppxnfNdFcsHSdVvFQFsl0VfJgr4 L0sgN BtuS8AlLpI2TKXzEc5ZXaHyJIXrXd1VK9J+OnwtjsTjRdtOOyUeWHBtj9RgJwz6G0xlHbVkXUOkEy8EG DE1Ny NrRGSwAFpyCERrMPDdLd4CIS6+WxFgRO2ycvprLBOsSLKqUsfTUDdvSnKnJkMxGOCEM6MiKSD5XYEmCr 9QZyA aWYWiTy6AK7SQDa2EYG2gv3CdYwMsZTXyVC5hzsr2OR5ERXJ2ShAwKXXxSc6FNF6+LfHiMB9alopjNPQ gMCBv JkzYQOlcWnMoWwDdQUCKI8SvHMK0TQAdQk4STqCpHUPxPk3RX7CCXw5GOH3dt6YwAeSpAsDvNE6dudk7 PC9LI SJfWCUwLBJzXPTaOJdmFJJFC7RdKHFmGZMYP4PqRRY+YbumbgMgMtsZHyB7CHOap6NmSyl2N3sdCvJ0Z DAgUi 7YIEE2GcSwPUKcDBegTRHlFDKzWs7IUA5+DeRcVQ6owtxoUMbwRAMeJthSOFusCsLlXmzgAIIDF3UyRE U3IDA vDq2NCgVmPCIjDf4TB7NMDa5QAL1ni1SmLiCzKMDuZX3gktx3FM7JITCfPuRrDLFnUCQoHQmiSFUUW6D nIDEg JBKZF2JyTDT+JptrsqXxUdmTQyAmWYZnb3ViDad8B3lrOdW2RPWkZv5XKRD2EkHiRZLgIIkjDBXyWGAc Uy9UR D4+PrIaSO4gcsenJePmKDMxAnvTOYgiFtEzMlQuTTKEO9HjWPN4PGTzAz9YOqRbBCQsSd7TM0EOAt7FK W5kb2 PeUiJlFlSjDH9aaat3BE0DXRFiLgYjSFIwZYIoREeaWFZTH8MrGJBgWLLOJ7KbPWB+PgplbmRvYmoKMz IzIDA ty3AzLyq7T5gyIXo0V3HjHpTcOEMnIi8EUtOxRYJtKt1IK0W+UqyksuVsWutGTsG9FCQpd3OxPqb5T5r gNTc2 E7IkKcFqYVJaGh7KIfKiMIXlLt6RI3O+QgnndpVgRhgTBwO3WRKlt6WeOuh2I4pgPVf0V9KcElDiKBLh Ui9QZ pVdCAXsDe8GA1Y+IxvrvzKgYxxPHoK9TIJxj6DxYxi3R7nxUWzqS6OzBjK4IZRsQc8IUxAcIBVpWc5YS 1A+Pg qwscAgTycBWnT0FNPdr6OoClo8X0wgQPwiM6UoCzE2JCHrQn6UAgIxDDRcRi1JE6Y+PgplbmRvYmoKMz I4IDA wf0FcRyt4D8llDUW2E2VbQeZ5VRSwVy6EAoGfOKSrTj8HF6O+OlplehKoPqgOAaJ9XPHca9OvZsj7Z6a gNTY2 K9LyGrB6RRWtMs6HNwLpPIJcZt2FS3T+JuvwtiIqKbqKAjNpSEYyw0KpHip2W2nnKHE3Z4GwKaQ8QDKq Ui9QZ lQfXUVnXt1TD3W+UawuchCsCbnKRvFbWBIuz6KeOow5V9dsHZDtE1DaRqFjIMViDy7LZvLpIXGhEs6TI 1A+Pg jaqaGgCeiAPqBiJFFvc4DqCnq5A3mmDBP8R1UzYgDmOOEoSc7VOqPuCMYiBe4HG5Y+PgplbmRvYmoKMz MzIDA ha4BpNdn0L6uzTxN9THNePn8VTLT5TzXpENRiPDalFXInVAEwRi4WNP3+NuYmHR0dvhpvDxKzJRJcAjg KPDwv J6ddXaIbUFYSXYIdWdBuHPPhUfQ6YEJvJtBuSyghWLNXJREuZNRvMQEqOmKfKXAnPvVwBQPfTOVAXLD2 MiAwI VErPoYbYJHaCxZoFEQeUGLGTAG0GOVvBDNwWdQ6GKPvXwUkCAcoCKYQDA4ONLI5LxVrDLTsVWzxAMAoY FIvUy 9URD4+BoZrHE3rsojzGmWhOVIyJctDGJmzDyF3FeUxKTFlAaArKVWEJ6IqXCKmRGBDR9EqSO4+CmVuZG 9iago iHbTfQDRbTudIOYilDoR8BgDcDGPnRuXiBPOQV1FcQYHiKMHJY9RiUN3+NvUoSN1eqitaHnsoBZWzIin KPDwv XjJ2JftnMAAoHlXmMHJVD7QpSCHeOKYXQ7ToMD7+DjXzIT9wjurqRryqRGNpOiwBPTxmNhM2KvixKZYv MzQgM RXIX7OpDZHyZUSKS1PhSY2+XyJgOK1qvghwNuodMSMcPqnFIJtwGtK3UDUyFSZwNyXyRMAIY0QyHUNiA CBSL1 MvUD4+FiVeIW5emkxvQSKoHNDbIhgMJHquNxM3TMFfGJEgBvRgAVPLQ0VyPOOnNPGIT3BqNB7+CmVuZG 9iago qSSCnJHTbVgwTFUomXrL5IVQlQXTfKtEfMMHVE8DyRGExBYIIV8ErGR2+NtPtCL0uhzizXFIzDWNqFox KPDwv YsB7UUjjDMBrLoYtHSKFS2KpYRThQOWDE3YsRU1+IxGcTA9dpinuAXBkRLTsBsnNBMkiBfE9LDieEFSs MzQgM OUBI3HiVOUhZGELI2RgTU3+VrNhKK8hcpbhGGZwWZAwJtyNFNfzPgP6GTZjBYVxOiArSLNGZ0MjINVqY CBSL1 MvUD4+FeHoSH2ztsqfUTVqPFOgCitIERasFzW1WPLnLESdYhRvJHCTU0GvUYYnJEGRV3BhVJ7+CmVuZG 9iago wVFByBZAsLlvEDDrtOcW5JHMzENCeLwLkFTMYQ7UyZJIqURXMR4ApNV1+YeAfBU5qvfitARbhFEAcOpf KPDwv MaN0CQNlMCLtZzZoPTCRY1JiSLAvEVMVK0HlCH1+SoJsOB5profiXHxuROQhHjrSEVqaEkX6ToIsFWBv MzMgM FKXU5ZuLMVbEOYKU7RvOF4+DxKuPR2ttcitILfeGKJlZtpCMHcmWeJwInsvRIQEI5WeOOO9OONmFm1IO yAxID DlDr2YB1XQYy9KBV1wr2IsXwE5IWNkVW5bebg9XB0OKAR0KLFhYUUlOERrKCOwIMGBT8DaOVAhXOWXT6 MvVEQ +NdgkgfXmFvwUSgLhTICaa2MuNfn8J4GjAEO7OALhIb1OC0PPUd5SEN5kq7XcHpJ4ZsLqKZ6qgbz8MA1 LIDM2 KnBhPEXqVUKtWBFuNOLZG1KbUWWsINWVC5IuZIT+YyrpreYrDgsTInXkDUYxg7XkZgi8B4fyFtA1EZCo Ui9QI RI9NXQmRSYfIYrvCOKuDPYkMp8YGA6+ScLxJU4sljstIJRmSHOvOjvLXMeeZyUtXiDlBFNPP9UjVUE1V DAgUi 6CWxGuZYZhYy5XE6GCEf9DXP6uc5ViZtZ8CLGvJH4rdsj6MT2NYUC3AQPvWZFrVACkWRIxPPKMG5CuOY EgMCB VP6MvDIP+XmkxztHcGjnMYwV6JLQfd8HnZxq9D0gxLjCgOXVaDq6BFUM0PNSnVXIaUBhiWNUoHPYsJq3 URD4+ JtNaBA1jqwqhUHlsQNFsWpqYWMstPnQeHpDfXRLDL3BkBLC9ZIWxZw3RRkIfJEIdJf9IL3QGKn4NUR0s b2JqC wF9OBVtSS9vzfd3PO9NRLP4JTAsITGpOCWpXLUcFGQGH1HfZRHxSKTKO1ZlMNQ+HhszpfBlNlrNHbI4F DAgb2 NaKml3I1zjQpNpRQHdQi7VQPO1WJTnXQMmAMceJZVzNAVsIt7XBN3+DdCzKR5qroqeNdVjDHGtHdiBYR wvSyA 0NwshFUVmABfwEABCK7FwCEUkTAKUK0MaRZ5+IwIzBN0pkvycXcApTJMbRtoNQXbsTxP2JmSmLNSjKIz gMCBS A4PlUVHpHRLNQ5PuQO5+NrRzGC3hgbyjPcVmHYYsArgFJAvkOdB2VbTdJTOkCBteFPFZY5UuJUYkLKZZ L1MvU D4+BlCvTZ7ymgqhOiOiPFCpApkDTOerJiT6IdAbUCLlGSBvYOMMU3PeEDYaRGZVQ0BoJO7+TsWrVD9sn gozNj NnEKZqTvyZWGcgLuN9STbqYNZyTUSkKKVNR9YdTXNyQBGHR3LtFS7+TnQfBP2pkexqHeHuBSSdBotLLH wvSyA 1MTcgUYYnNKRjSFEOF6YfBNUtRXTBT1XyPX6+DhVcBA1iooaeFgVlSKQpXgdMQSlwQvC3VNAnRQBvNIL gMCBS X4DyQSFlKJEOM3FfTZ0+RvCjPS7bzwujFpmbAGCzFcfZLJgsKbO2AMQbTKPmXTKaBUPCB8OvOETzNSNA L1MvU D4+CrTbYN9azmhnFbgzAAUpLvcQIMlxLfD2HNMxZXMjFTRqBJSSV5GsISTnSRTXK6ZhWS4+QiRlHL3ta gozNj scTWPwZtxKNGdvSnG8YGukAVAzDUtuXEPGP9XoHRJfMTPJW2PiTT0+GtKhPL3uhnjfQvAvPRGlJqwNBT wvSyA dXlRtVKLMO8XqIOP2VUGbBg5JVcPiNTKwBw5NE5DYEl2RAG4oz0YfEaG6VARoNH3wovs2WV1QSFY1WoA wIFIv GVXbFZObSQKKV9BrZAAcJVQNP3JlGGX+PwiacwZaZekKZyczUSGkb5PeQmj9L2opISM9IHIjXA9gZNAe NzEgM UEPU6BlBLSwDPMMJ7TgVL0+FtMvVZ6mkgjvRbVxFECpBdgDRBrwTcU6EPEkWKTwUvPqRPJNE7PfSKDeE CBSL1 MvUD4+LmLkTK6pfbxvPvTvWIPdNzpQDPyeGsNqXLLzMZBFM1IlWBWnSPTcRa2AWlPxIZBrUc2RG4RNNv 4KZW5 oe8XzPvZ7LKExBT6ciyb0JW0XPCT0WhUbVGUmEUXaDVEiTZHNI9ClOGPjSKMVO7PdXJC+PgplbmRvYmo KMzc2 ASAuc4PtIzk6F5PnVQQiLLJkUv4FB4TSXj3BMV1df2IaZnT7PlLaAX7eclm8OB4RJJU3DtByYQIfDODl NTMgM QGPM3FrOFYtBPYLU3OpNGW+ZjykrdLcMxhOPob9CYRbs1ErLga2R2ygBvvoOAQvTl6BXWR5SiGfQCVqO GcgMS VzVREtFk5XRO8+TmDoPA4bqzwdUtmzBIOtSdrEHAjuHoTzGWPqKBOJU5YjMUJdPWMvHj4QLsGoPOLtWq 9TL1R VBl9YSH3bn7DpNwU7OREbKW3jrxf6KP8XMVT1ESZrPQPpGVBnYQRdKEGGA4LrVBUkKJBLB1RpGWY+Pgp lbmRv MylLGxxvALXgb3ZvYxp8B4hqOon7WKLkVo3YSUS8NkTaGDZsUDwrSDOeHZFsRx9XER2+SmKmNZ9jpysr ODIgM CKxUabBSSsbOsQnXLrsOGGFS5KeNDUoPPJgQx1TCbCvGFOoCp6RQ4SKZd1IWY9zo9VfAiC7WlBkWY6az go8PC 2HGMV5GjAvBOCzZBFkBIQsCTVHN7JeEXRmSZKOS4YjBML+MviupjBtZwwPEia6LONhe1JpLdw3U9sfUb g1IDA vHk9FFJS0OtZkGAUvYXdvMNJhLNCuPa5QPT7+AvHzYL4jwhlyNQGwDHFwIfmEWDdqOkJ2UMuuEXPyJYX gMCBS Z5BsWHWxGWKUN7RwPT9+KvOhAG1mtkmkPVIcDWIdCojPTYcbHyC0EOykIXSyMQKyIIXTL9XaFYDiPIBC L1MvU D4+VpRvHB7khvyxCMhpZOXgAisMADuzUzJ4KKFnPLIyXHDmEHBIY1OeYSHvFBDHX3QaNK3+IlYkYE5dn gozOD epSCBuCkmDCXhrQjY6DMWbFIShPTZcZWOFK3GaULJyENCGO8PsXA8+AcPtOT1exoxqZYtaMQRdFrpBLQ wvSyA 9JGHvHCPfDHXyFHTMX7RgFOZrMYTQP6HeSH5+CzXfAS8nxtjbAUTrITLrBirJNPkyLoX6XSkfRJMrUsx gMCBS E6RfSAGwHXVWH8PzII9+BlTpZW3umjhuLMVgXQCpOroGUKbrVyP0SYngMJVdMhsgZLLXW9CqWZWjNPTT L1MvU D4+TfJwLT5jtyxbYHHcMXTvEmpDJFcnLfG3HHCrWLBkRrgaWJSKR3EaMOBrMLHCB8KbBD2+PwVqUM6nl gozOT YyUSFkWmwYCPdoMvI5XPBcYIGaYhKpNMUKM5LzUWSjQJUEX7CsUI3+PxPhCQ8jrycvRHLgHLWqFpvOHI wvSyA 9PAWzGHYaZqSfZYVMV3HsBFVoNETDV8JeAN4+DmUjML1alzeoQJSwRLXmIzlYCSyePxWkPMnlYBSBH6B gMTUy MKZbLh0JBmNvIKIbKt1KJ8JHBw8UYK4qo4JgWeN3ZgWkXD4vict0DQ6ZBDJ0KhNiPIZqKYHiDCIvLPQL L1BnI QQuWAQWV8YrRYG+GdfoyxShHlrSKso0GWQpf3EkPxo8B4dqVOk6PRX2C66rHEEhLNOaUFUIG2AwKVWyO CBSL1 MvUD4+TvHwDF9ncanbEBloPYUtMcaHUSviJrK7JhMpPPBpYESzQGPFR7GvUVLeZCVJI0YaQG4+CmVuZG 9iago cIUgmHDTiDtpHCOvlBaX5OTvfPZXTM5AaNMOiMVZzRo5WAsYiSWQhOk5YY8VXZd5MBC6el7HkMwAsMEI wIG9i nzx2MC6CAGZyXAOsPZYzYWRvEAStZVDXU2OzRPBeVYDJD7OwEUI+IsgupgMfVfjOZMCrIEZan7JwHwx3 L1AgM ABqPFNhSh4XJ2XKPn4DKT5oe8EaUhAdRnBaFL9htwl6UH0UBWCcMnFbZYRuHUPpIMMyZKZVL0EcXGVlG CBSL1 MvVEQ+YlrezwQlZtvPXFMvVJXlv0IuGni5B5noWIX8QKWoMq2CLEQ6SRImUQUfFCeqGDSkNTDeCq0KTL 4+CmV iOV1chni5MAAsJHXyPseIKYnfNtR1PGXlPCTSR7UcYICxGJCyYr6HJbSzVLLuBv1IL5XCPf6BHO1py1D qCjQw TBZnMS5ouan6LF2PHJGiJZRzVMBoUDQbUGUpHDTJP0LcVQAeWDNSH3IuGAQ+BtwvdmViYllFGZB9LUOw b2JqC vz6I2yoVBRgGWDfEo0RPZX2IQUzLJDoRDltJNKkEFZsSq4JKG4+AjItNX8ykaw4XKjzXZYvOirUYAzaW yA0MT IxPJWKR6IdZTWcIGCoSi7ANyDmXAZmFd6HW8BUFn2GJI0gj5AjWtBcKJQuMN4zrad9LL4QGZGjKMTcUX IvUCA hOOZbKUUES4GyCJXnEFTUG7HlVTN+UujmzfBeXlvGKXX8OISka7KsIos0C9tbTALoBEXxYr1WYMC5AGA wIFIv AZpuIJDeBJMbUp2ZBB0+SyHeFL4wsnz2DNSnVWQkHytIZBpgNjO5HiMlBPG6FJcbWFYUL3ZjVABjNHDB L1MvU D4+DfItQL0zofv0OBZoPLTcIfbGVWnkCsV7GgrkYNM8YWagUSHLZ3BgKJKxJQHOX4QkLL4+EeQoMQ6hd go0MT InUWNyWolUSSbzPxE4TeeuWVW9ANmpLZEGL8JaBCEdVZVTF9MsSK7+KiKgIP0amky4MQTeKSAtRwgRQT wvSyA 9VmQbDKX0NXYpGXKME6WqTEBfFQBSA3DjJD7+CtIoYO4bymf3KLGcVKGsOgkDJTfsIjG9UlBkQMS4GPE gMCBS X4VfTNWpBFPFF6ZtTM3+TxKoKK8eflf2VHVwGAEqTcfMNJvhFtE5XxZsBXE4CZUqLVXKT6GwZCFrLTPW L1MvU D4+XwJbFP9obhk2UUVdFNElKquNSPaoUiT6VJctZRS1BERuOCDXM9MrTMXlHSKLL0DvPI5+WmClGJ3nl go0MT gkFXWlKovUWZvvBwT1DZssGFD2HBJcISCYI5RiNBIlPCJAN4YeFK6+KsQuKV4cfym5BSkuYZVmOifWCP wvSyA 4NKXuTWH3VBKyLHSIU8FkNPAhYSLHU1EgPD8+TkUcGR2pkfo1BUotPOIjYctDBDncGeN4TLVaGPCxDDt gMCBS S5LiPKWbKRTYI2QgSI3+ZuAcVZ6dsqi8YnUmQIHzBrqOYOorUwW0FAdwLIEbIFUmLRGJN9XgTBMpKAUT L1MvV Eg+MgcngpRqBmoBOASgLVEym2WcLcv5A0luLZQ6D9XrEFCvWUDySw0YGoOkELCsFe1QM1BFFi6HNS3tk 2JqCj HaIoExGS3kkna0GX4KESFuHq6ODAA7CBSzLDFwNBpbWBItSEMjOx3ZYH6+RtApUT3rghd0HpKcUJWzPx oKPDw jBkR6XwygANObRJltPCZEA9FiGTLeYPQMO6NwKGt+LoanzaXuMmyYDQH4GYPbr5KxYrt1A7klUOIzT2Z gMTQ5 IXAhEk8UMiHwKEUbAz7KG4MREx6KLJ3yg8XiElRhXONfWD7pjwo9FS4NQTYyRy3FBHI1CGQgXYHwSNlr MSAwI EIiWb1GAA6+UvLdNF0ovgv3OtMmJZIqGzzKASzjNqX0PmBoVDSwQEfzGSZSH1NmMHMcOFMPI8BjOLt+P gplbm ScKbfZTVP0YDUcx6RiFts2V7qiUPH2U8DsSIM2CJTwPd5XRaAgFTWeMc9SN6OSHx3GUK7wn8PgHiKlTU AwIG9 aaya0DJ4HAHTdRZ9LTLF4EEJpCLYhQKipCFXsPUZhFi8MCI5+AsKfHC4crlq2BvcjSXZcMakRYTozBfL 0NDAv CMLsMSyzECBFJ1IfDTYbLTSXF9DpKXk+CpclbwNfWdzMLUExHIUmr9IvXps2D9buIKQjI3WnHYK6YYLa Ui9QZ eAvYOSyZw6NC9UPUk1OOK1kq1OwVaPcSFYoAD1kwpw7UJ4UOBS2CW9HGUA1IYNbELEbMEvbLXTrCUMzI y9USD 4+LsVdFC1fwyt3RdLgQOMxKfdQNYtoNzJ3RGMxTCFbLIctBSIFO9KzACPtMBPAM4BhILb+PgplbmRvYm oKNDM sDIUbz3BkTlt4N6aoEGV9H9FtDXV6YHGaLq5ZBqMzWVWcXs4FE7MMFw1SAW1cc4KmSxKqBRXjPQ6hjnp 8PC9L WQXzNj4JEWK8MXXtVYOtZNqfGKYhKEQhIk4NNN2+ZhPpUQ2vukb9JhDxGWZjJatWSTpxNfE1AXthYZWr NDggM OCWT5RmERZhQZMWW9GtHPc+CgaxcbOzLgmZXWT1BAQsj9VbLph7K6tdENSqE0HvUPJ2YQQaQk5HVoNfF DAgUi 6ED4SLFq5OPO4ty5RlLeJhUnZlMH7ladd2YL4TQTVqSy1BQDP3ROHbFUFvQYhyEMJsWJBmIr7OIA3+Cm VuZG9 oune2PpjdIIHiBnwIOIyaMfF6UITxCWLnINwxDMZGO5TiOAVcNAGZU1CnBWv+FzsvrxJfLngGGLH8FOR gb2Jq Utq6X8tnVFE7S3ZaPKS1CYVeBz9XFbEhAWThAn5QO7FZEc4QMW4tz0UzLfC5PGMpYT3klbz0TI6JEDPr OC9QI RP0CARiMHZnMJcbGPJbPFHfJg6XOP2+PzSaHE1qjok5JXIsHNSlEnsYPSizL7w2ZnZzPNHeVH7ZSMI5C CAwIF LlHVkrXNMgGQJwQz4TIU9+ArFsMM6btaf5MOMtZLOnRkiUOPyqVvX3XfSeMTXmPSnwZXYKU4PbSOWzBF BSL1M vVEg+SvtewzHhIznJCDMcWWBcc5DvWvc2A1apDSL7QAQmPk4NQOK3LxXqTVYmGBfqUGPkAGXlPa2HFQ1 +CmVu MU7rhwj6IEWzYDEvJnvPSFgyPwVlUIozOME1WICtXFDXQ6XcOOXbJINLV6StWA6+DsNcDQ8yqfy0LGIx MCBvY cbSLKvhVvS7MJezJRVOA2BwGiojGJSSP5HtNHGiLVGVQ1TeXAesCMA+SoswrpMwLdaDKAV4LLLit5FtQ jw8L0 dyMXP6DBNcZu5AQJq2HIEtCi0DPiGvOKBvLe1LA2HDs0U5Zb2QHZ6sq3EiDhE1AeBrOG9rjol6KG9XVF Q0OCA lDLBuLJL3GIQvOLTKI0UlYTTqDLYJG3PbUDO+LlatpgIjDcrYNNI4YKGco0HmZrx7F8ghQAP2HEGsYvK 0NTAg JBSVBNU2LKPwEVGaSGMhZUUcJoU1WAVtOKMWFTO3INRaBOXwALS8KWVcGvN2NNOvJGUEKO0VITF1PdCz IFIvU KfsRCQhSLOgZf6ZHY6+ZdRxDJ6fppc2UJimFJSgExyNTVweJbObBNSsLWE1KVthTNKSP5IqMARoDPSTF 1MvUD 4+DwZcFX9srfm8WOPwNVJbLvyGDXfdTzTsPTSwDZQ0ZNcmRXQLZ2XoZNHmNCKXL6GrJP1+OhVfUH2fyp o0NTE oCFTfFtzPGRmqWpMhILZkLWI0TYrbJOHVK4WmPXGwWUKIH9IwYY8+LoKrQK0oboz5IWYcBVTbWgnHJPi vSyAz DPPgFPZ6HDheKEGLF1TxZLJtNIHLS7QsJN2+RbZjXY2yrxr2KRAbJLXmHnoKXRztFvCzROehORA3RTaa MCBSL 1WuAQXpTCSRC0FiAN3+GwBlXA7qnef3GRMkTLNwRscJTLtoStZlUNjeVJY8QKhoHVJHY9BfPNPxOJSMO 1MvUD 4+AjGrQL5agtx5YOBpSRMbKwqTZHbxJzSzHRNvSHB6LTbsNDVPS6MgYOTyKPYFM9KxOH6+AqAsWL6hvt o0NTY kISNfKjvPFSdjXvFqWDGbPAD8USphWFRCW7ZqVZNjKMDCV3RhBS8+BxWnRY4ltsb2QZxuFAUwUjzCFIk vSyA0 KPvoVCMDP9XyZYT2SMAcVd1CXrYwKYYoIo6KV6TBIa6UGI2vm1JcTkC6XGYdAI7cijp2PL3XPVM2Zl2T IDQ1N jZsIWPsENsjGXJoCCMnTu8OES3+IgXaOL9dwps5QTwdKDKzTjmXSVesO4w7XfWkTZWSZVI5CPVqLZVoA 1AgNz uzRKTOV5LoNZGfKCVUK1SdUPEjwMY+SjvyweQjEeiQTCDwOHLcu8NrMff0P4ysYUa4OPGyCj8DNUW2KI AwIFI eJFcwYYXdTTDrXs8VVQXyAL1+EcLpSE6xgoz3EdDjMEGhFagRSGqfCeG4HfTiPPGLL9LzUTW7FSFlSx4 QZyAx YJVjCr9OL7IXp7N6Js8HAX3qg6YpVhI3TfYaPO1eznm8OL1NMFG2JnXePBDiODD6HlKpKPVKI9RlRIRz MCBSL 1MvVFI+NehezfSrAmsUCSUyLBLvs0IcTgr2A4zgYUV6ETQiOyH0OzFsNKXXUW2EFVI4ZqJkQOLkJGyrP SAwIF ZjCe9HWF1+TiCwCN2tael5JcSbUFDkWndVVOhqOWG4FxKxZZKXA8LxVOAidNI+XrfiegLuUsmWROG5SJ Agb2J zBnc6D5whSOU5OQUjXd5YEBH4HgLqVQHwWHzaBYQdEZRhLe4XPORfIK8+LtKdUX8wklt8TpWpNDVmXye KPDwv G2r7EfprQMBBPGG9OREdKNSyHQT0RFHdDpW3OvCdRXRIMYZ5UGItQXQiL9UyPNN1WZAgUu5SOeFuMTIj Ui9TL 4ZEn7X6Jw7MYY1et6TbTzP4LbUoHJ3cwxi6BC2MXEM3FkWaDAYlPDD7DgGlDIYOO6IfSPXdKNDII7HjB FI+Pg bdauYhEamCMTS3KDDmr6MoNmd9K9fcSJfdXEDgSy0HUCM9UjIhSKYsBRhdYMYgMMZdZk3ATz7+CmVuZG 9iago 7EckbXSAlUsdUCKzhYvI6QwneNWDYB0FlBOU2RVRxXx7NPmVlYSShHe2TA5MYJu5FTM7xm4HtPdN3DDT wIG9i nwt9CU3NZXR5MIIfDFCyIIC8IeQwAKMQL1AuMXXuWZVFB8QjNKF+OsumjrKqVdbDMLtlIVWzk0PyZnf7 L0sgN PhaAGWdIv9FOQY8AdSqNFVoYLseRMSfQGMdEd4WCs3+PhFbTI7dofw0LaXrCBVfExqOJBiiT5t8NiDuU CBSID I9LMTpOHPpI9CzZJwfILZjYp3JEtDjUFYkDw9AH4IBFi1KXL7ww3JiZnA3OfKvDH1fjko5TD1YETZ7Ak 9QIDQ 0BkOsYTKtUEdxAFPnRWGaGl6DRe0RLI8cu2BxKoR1XBYeEL6ukoe4ZQ4OEER9Ge0CKXD6ZxFhAJUmVDk gMSAw TTMlRd4BTq1SGV2an8ZvWuG3YSQySC1rdwk0HP0IOmT1IoKqVMXlKPb9WVZvCl8hUHN9StLhSBVXQ5Rc IDEgM UPIV1EpCZE+MzyzqfEmKjdJMGf8RWIpe2HsJtc5E7pyLaXoK9QqEIz2ESQyOb9KCkWiAWOwCw7VP9Y+P gplbm ZvOkpRYPy8AEHlv4IsXyu6A4wmGaLgM9GuFTc1GNOuXh0KEdMwRGZgUd1FF9D+NypyrvYcOnzRPVn1MR Agb2J dWuy5I5bsJEu4IRGdPpR8NOHhPCMFVL7YQQB9JFFzBQVoPXabSWXeSVRrJt1RMP0+XxCvBY3wyzl4Fap gMCBv WvhEZApbQnWlDWWvUXG6PtokVMEMD7IaUGQgLPVDJ3BcFI9+SdNiAI7olhp9ZQLiGUSsEmgERJehTpMo NTcvU CZ9NiouYHGUX3XaLDGcOPDGS5NcYB1+OqYfWU3grpk2CAEkDLMzVpzALPzuHzY4LQVrVGVXC3FmECR2I DAgUi 7HDrYfYJTlRz2YU3WECj7WXM6vz5MoYxW0CfEkVZ2bvrk4XD4AOMR4Av9VRPS6YDQpDBDqFJphTNWiFH IvUy9 WPi8OUM4dw5NgGuZ2XhJwYV1ptgb1VP3OSOW5PQPlQIXjZKA8LbtuEVGLK8FyOZUtBOVZB4AsBMI+Pgp lbmRv JxuEZNl0PTXpe0IuVgh3H0snVdR1Y6ZhHUuzRSNnHw2RNiDfLFJzPw4HM5M+DfcahrAzHecJLAh8EPXa b2JqC nd9U2waGRe9QHPtBm0SJJI5KUTdPGEjXExtVROaSBTqOx9EEk7+SqEhTA1onsj5JWJvTVWyXpmKNKccA yAzMz JkVLI4PYItJVRDK0IsAOIpKTUIE7WhOIo+HfwoinJwOrzLEDm1EQNpf8DqKjg2V4ufLBa4SQSrUrW4NQ kgMCB HNBW7VBQyDQPiECuiFZOgPp5nOTA4NbGnLEOjUYtyDPGvCGXqJk6SFq6bgE0+VgXcFY0efuw7BWgvJGG vYmoK SEklGlK7GGUyJZFCA4WqFEj0FMNeUa5PFkSsTMQyKp7LK4MXOt4FFV5ci8KiIbP8UWXbIB1fdpz1GP0N WzUwM UAgHYTzLVHaASNvPw6oDYA0FDlcZZRWS8TeIDYqTCISW2OzHDH+ElwoqyXsVniQCFnsIFPoe7QwKls6K 0tbND y6HUPeHmQ6YXaqWIOZIR2KGAI3ElCpTOOpMUciNUEgAUPrQl9ZEe0+KnLxLC3pzan6KCHuHMUvGjqRGB wvS1s 6LLSgLWZJBFQ3RkMrUTWrL7ExPDz9BZOgHy2GHoLfEJCpQp4EP9CSFg5YQL2rs7ZtYzJ5EqJbFI4yssr 8PC9L FXJ2WKCtUOJqUKU2APJgXVCGC3ClAIKsDWSVN5VqSQS+WuwhdzWoQexRZJhfSNBhl3SqGro7M9xuRGz5 IDAgU i8CDDT0BAWoBMQkZLqaKWNvVIIpXu1HXI6+OpWgAY8glth5BINzWQClTbaGIQopYdQrJeyiHPR1ZYPtN CBSL1 VsTMZeDQEIC3JxUY2+AxMmKC4dryr3WXCkNAKxEfzPNXfjIfEsDrEyARS4MRRiYDKXD6IgLAGlYJKKO8 MvUD4 +ZkCzPL3ufgg0WZEkTMSxIfnRKIzlArT8ZZxvJZYLN6HuHCruKRHoNw9ERyJzUCTvXm6ZF5NATb7DAK2 kb2Jq AuX5KdKoBZ9soje5XW1YTNW3ELByWKPdNRT2QGQgHXETV5SkAOQjBOUML0AjTGS+PgplbmRvYmoKNDk4 IDAgb 6GsKdo6T5wdToGxV7LcIDr1SKRuNw0RUhAsFFJhBk8VN1F+JufpmqHaGuoTCVp0WVBhn2EyAhf5W3fmF zIxL1 BwGAs9TRHoNv6KAoBsIJGzBb9EZ3G+SjfayjGvIljACGLhHMMrl3IaKyf9F2aeTHOuJPCbBh5QGTJ0KZ AwIFI uMEyqUKBfXSKlAu6HZC0+LdMeNC6njrl9ATWzLXPaPvmLOSlcAsN6KYCuFTTUX6CgUEb6FRFfPy7EIlW xIDAg Bu2EQ2IHRc0DXB7ro0SlIlKlNsNwJV7usks0DZ7SBHXjEZ4OHDPjLYPjOEToIEqxMGHgGCZzDc0UOh1H ZW5kb 7HjLtJhKbCcZR5ovlg4CF7QCGTvHl3RJRMhMBIfNUWvJHtrOQMrOGIgVn3JFh2ZAF7qz1HzVzXxSSGzQ G9iag t9ND0TVMCsJv7RPXF6CCNzSXHhNZmjOMYuAZFfIx3KND7+JdEaPY6bfbw9PIBwSXHvKxvEGJeeN6w9TV YgMCB KDWRbFuIeBKLnFQU5BTAySpH6YXumXIGFOWQgGZClAABfZOSqOHSaDzS1FQDtBOYVKG6YUWb2TYSsQd6 QZyAx PBMyBy2CQ7FMc1R6St2JTP0fm6PdJhEzUoIhFM5cndr2YL2TJWTwMnWnWHMxBCH9BVUmIGOUR6YsTQCk MCBSL 1MvVFI+IfezkzSoBiuDEMF2HUCzd0GdDyn6T8crIADaTKNzEkO0ZkPoBYDBEU5PEMShGWZgPPNpHJatO SAwIF QbAy5UCi4+SxUqTJ3mwns2FZhaMPZeHxpNSPvcO6l1AeppQFZTDGOrJVWrYJPmI3QuMZW5BGKrEv4EPa AxIDA hCx5OS7VDRu4CYC3ij8OxVzZqPSHlJU6ennt1KI6JWoTeUYFjDDWgTSH1WRKyWf0gJYQ1TTCmJUWCA5Q nIDEg YNSBH2VyZAV+RhxtjdUcHrtSWPPgVIMtt6QzTsf2J8dgXHTpXZPzShD9EdWxHLWIUW3JUFSxGHDaKLPa UGcgM WCfJGMhHg4DUw4+AkPnGY7heql2BANuMNRhLaiFYGsrY2e7HIubJHKIDJTrZQEzSJKtJ3TePLZ3RPUoG i9QZy QaRNFsXb9ZM4LARz8JRB2jf5WlDyQnFtUoSD2uerm9XU6TRdPwVnRyYLNwLAG5OTBfHa8aNOG3MVEeJM BSL1B oPNQvCNQQT7MrCRP+OcquyfSxSwwIZJCsKRJqc1QeNpm8G8gbGLX6UGAaKb4VYROgKkGqYSScOTxqKIR wIFIv Dg4PMM9+ZmCiLH5sycv8FGGnERAqGkiHTSnrCiJ5VTIpMQVGR0CsYLUoWZLzQl8BLgTeVAMbKb5TP6RU Pj4KZ W7az5XyCmAlNCJcGU3blsa7GS9LVUDkXG5YTZFtQIDwKMMbLQdxFUAiNLNfFp7SRy0VMR9al0PoEiGcZ iAwIG 6ccqx9QP4SWQDzCs1MBGHhFpAhSEIjUZhsKMBjSYMgSj6HLd6YZX8li9CpKuUsWeNfBH6tjqz1UR7JIK UyMCA mOREsYWW4DNFuGEDHN8WcWRBnFDJPY0OjYAC+IkhkmvPoZyuQXPW8GUTgf2MqEyu7B7gyTZD5DPRtAn3 QIDUx IJMyIGOrKXbgNBJnKVWnGv3UBJ0+HcNrFW3sicj0RZtyXUBiAcbXBHywKrSsEMArECH6DFdjYHMNK0Jh IDEgM RZUS0RhMS0+YqAnNL4ksdu1OzLmWJSfVpfPPSagFdYmXWBqUAW2TQqeKHCEI5EkBUWiVZNMW7IuQB4+C mVuZG 3nzjc5GnHbNORoGaqOYKazRfH8NxLyCAMNB2FgAUWaSQSvHo9ASrZyKTQoPn6BZ6OHQb4EAP6hi6IuRm UyMiA qPH9tuth9ZS6XTKJyFfVyAAIdGTM1POWbWEAKP9DkKEVvOWVYH7HgHFU+FxoumeKbHhnVOEMwDAVtg1W qCjw8 X4jnGgt9Z4OeYGBwPBMvIo0LZzCcSHYnWr0OP9B+MmjgwlTcRliITWF0ZKZih9TkGsu0Y7krKts0V4Fn NTIxI ETfYg0LScXdVWMzNo4WX4G+YfyfisUsVdrSGEX1RROqx8ZiCcl2U4xyTDB5BNAzEa0YSHRwUWNyMFOiN GcgMS ZzAPJtFu0VFT5+TdIeQJ9bphx8VsTsKRYzYnuLWVnnYoK2VfozASZJG1TkOJZ5NWFfMi5PHdSrJIVyIg 9TL1R XWr9VUR0qt4FeMnHdLlUlLE9lgvg0SN1YRHW0Si3CBGSsBgTyLLNxQIycXHYeGIVfRr4QIc9TJU6qd2Q qCjUy YIEmBN4dxwi2UH1SPEQ4XR3YEZZrWGCzJESnAFxcUGKnMNXhJc1UXk3SDX8nm3JnWiEpZWNvSB4wkzj8 PC9LI FOoOsOnKDUxZQJ0XLqbQOQGF0LvYVYzIDHRH3LgUHV+SzfiweKgSpiMLRAyOUFxa9OdSmu4G0nyKMPyS DAgUi 6BSNOvMFIcYFOnREdbFULqVBTaUc5RMG9+CkWqQU7pszi9BqAsAZHjGhiCRQfdQwBuRFysJGI2ZwZqZZ BSL1B lOZEyYGUTS2BmEC5+YiSbRR6yrbw4SeVhZEEbCmsOYZjqAjRaGXEkWTP5QrpaQBBJN1ZrESFcPUBAP2S vUD4+ JgTcBT1wqox7OsSbZEMyIujNJKujXjF6RvGjYQYTI0EkTHQ1NYQmRj4BTfVlTTBzLx5JS6FJHb8OOA9u b2JqC cJlNWWzRV4ukev1NC9ELTWdTQTzVRQdQIT9WEonOSRFS6LoNTOlXBBFE2FnUUQ+FutcvmZyGsdDFDL0V DAgb2 AaDtv9T2pdJguqK3MhOME6JSLtIk1ZLvGwCKXcBu4WA8B+AujsmtQqEqwMAWP5VFJhk3CfQky2T6gtZd gxL1A hWUUqCHCeIh2ZJfXtVHVcPj2GL3U+RcsyptOnGktKIEJ2LXEki6AuWqo5O9peLfm1C9UlYDE9NDKqBn9 QZyAx KTNyIt1MY8WOEq0OFS2ld8TuKrHkGRTxQT3irow1IY4NMHU6RzDdXUNtDLJ8FAKhONGgVWogDENtZKNv Uy9US GVhZD4+LeYtMV0ljwz3AkshPFMdKpcQBQoqHlW7DRHyDUIPA8IlGiXsQJTKY5GsOZMhIXLJU0GlRIMaZ Hk+Pg ucupOuXjxPMQDpTHZjq5OyFlf4V8oiACXjBEWoQkR6ZJPvNGPDSO5ISMXaIHRuMMRuHCzwUFGsNCXeXv 9UUj4 +MbBdEG4keey2QNNzWSFmFvmXEDnrOoD1KwwgBCMTO3YeDZDqIGEbMy3OTgGcQSQsVk4WH2EBFr9DRX3 kb2Jq VkE8FnZjLZ9cdak2JF8BViZ8WvVwLNIlSLN7WAXbLu7aQHH4EFTdHRBQP9UtYXTuKOKHM4TdFXV+Pgpl bmRvY hjJJQZcMZAgt4LrLpv2N2zjYXS9ASXwJo8MOWR9AoXiNNIvYIgnCXKtIWVuBl1QIAIcMZ7+RdMwIK4bz go1ND QvWAWyQljPLDblYzYkOiTrBCY3RXYaJXOUS0HkNCQdQMQMY0SvII3+QvEsQK2mgua3XREpDXXzVvvVNI wvS1s 1SDEqBJACEDZ9VbHyRTJlXIO0VMRyDxY1NBenDQCUKRD5VKAmSNVaA6LbWVGxIIFoSn8BZvFxBEZfUe7 TL1RC e2C1Dt2AGT2xi2EcMvC2TbLaCA8jiyo1PN7ZQCZ5EFOqQSXtWDB9EOAwPKRQS5RcCJKhJCXJE7ZzHEG+ Pgplb bFxXebWPIL2HKPsa9OuKna6P2iwNJY0IWNfGlU8MtInONQPAEF3ZMWmPHUjG5VdEVQ8PEUsWm5GYtRwH DAgUi 0IN0SUOe4KJO0zt3CeQkT7JLIfDI3vbul8NW2FOvS2MtMmIYQhIRT7IHTnFlW7PvSjHUFFDZ2LWNA7SH AwIFI lRPriMNXjEVWjMj5ALi4+CvTeVB5leht9UKiqMTVcQktVOIdnG8h6PIqlYMMMMRV7ZXUyEYOqMJN4ELO gUl0v GBQ5JLRtTUURY4RkWXZiRGZTN5HqZAX+ZbalvjMuYbuDVRDjNTIfl9XxIou8G7iaRCWkOITtMkN4WBRp MCBSI YT2VgKeLRUxR3NoJZK3SOZyNy4KPhPuHDVjTf0AG8AKSp0IZF7fu9RwDaC8XKYsQK5xchx8AP3YZOY0H iAwIF JmWXP9GNAdOSIDP8ExEWJnJNMBC8MgVEZ+AkhjhuXaVnsTWIKtFXZem2McUku9P9vyXEW6NVAuBm8LEN U1MCA zYIXnTKgoJYRhLJJpXw4OXD2+HfViHL4vfdo7SIPsKWDwHeyBGZdwBkH4GQDeVWFJU0RdPZRrZBWoFv2 QZyAx QUZiUy7UH1NDLe7PZW5tv1TpAiJ8DBPwQX4zwxm9GG9UNSX7IV6FREW1FlWkKHLmHJyoBATxBYBuIj7T Pj4KZ D2rf2WpSzW0PNOoSH1wveq0PI9CNNT4RH8HFIY0QnNeAJUaXGbrNKHySVDtSq8AWq7QLX1ds4BeRdW0A iAwIG 3mdcq7XY2UMYK1Ea6EVYU1GSTkTQLpYAysZMKoKFYxIc7ZEk8NSN8je2IlRkY6BdXtYI1lvib1TB8YSS U2MiA uKEDuTRZ8SRmgWGUQZ0YsMEZaEAZCA4HfXVC+ZcgoasVzQrtDDYC5LCHix9DcNai5P6zcDPYwBXAdUk3 QIDU0 HBObIAKyUTkpLIRlRBDfMx6EYL2+ZhYgSW6alcg5OBuwJKSlUdkFCQjdHjF0PeMsPUBVB5CqJSN2UPFp Ui9QZ lLxODTjRg2HC7XLNa6ZMI8wg1HqBfS2WJTjJX1cgya8XI7CMRJ3So1HVQD5QTMuCWEsLGouZKPuBBJbS y9QPj 4WLS5zm6XnCaN1EZYyQB7sabu2HC0QVIS8CF1PYRJ8VOYbFYMgVHyiSFPuJHSzKx9HOc3BDV8eg6NgKh U2MiA jNL8iyag7HR3AXVM0BQ8MRBM4FcWrDKVrMBqfKFIgYNYoIg9GNj1LXR7fq0HsLgN1JvKoEB2yukf0EZ9 LIDU2 GBYoXGMeJLG2JRmmCARGS3SuCSAsADXDQ9TgHQI+IncmmiEkTesLMMS7TLRew8CvTxt9E9msXOD1KOBm Ui9QI AZ7LWLkBAFjPLlkAQOrRBAsXm6KSC0+MuCoTK7dxeb6NlMoKFUjOdxHUGkoQoE1ZrHnJVYJN1SsEPN6L DAgUi 1WPcOlHICxQi5GN7PAPa7VYX2xe4SpVkF8BsMeMS6ultu5QG1YVOY9Jn4GIGP0QWJaKPHaMKvjYQIsBO IvUy9 YAp5TWC8kl9ApGaK0UhSmTV3zyik5DI9UOJO4RC3SGTL5HQWhDGGlYYtdQOKuFZWuVz0INi6IJI2oh5X qCjU2 DIDlJY2qdhr6TA7JKNX4Vv4CJND5OaAqXHYaPVyzPINdUTApBk0CVj4FXM7se9QvNkM1IEYuXG1cynm0 PC9LI NI8VLWnBOUmKYB4LZrlQTBWB1KmOUHrNVXHM2XlLXI+DjtxmkFpIwlSMVrvCANtd9MbRul8L6taTEzqZ DAgUi 5HFHB6SoOjGPAbAAqjWBCeCMLwNi0DDT0+UhHlIH8gwts6TkQxDSNqHenIOYrgZkE7ZzIvOYKAB8EyNK Q3IDA vSr5EFpFvDLVjIq7JX4YJLx2TXH1mq4SoDhV8DcMpDM1wxbm4IS9YTCX4BZ8ZYQB2GODrLTLjHFotNNI wIFIv Ig0WQy3MQO3gc0XaZcO3FoTuXX3uetj7LR3HZLS1SF7BLAP2LAEcNQHlXFtpDOGgNEZjKg1LFx1TTF5z b2JqC eE0KYUxLB7zyif5VW0LNZC0XE4AWOM9BJDmWIKyKQtiYSWzCHSkOd2XLf9LDA3hm7YvTpK4NIMoDJ5yw go8PC 6QLWP2FgDkAOOtYBT7BXOaUEHUS1BtPDThPJXBE8UvJYn+UlpekmGaQejIHQf7BQJfs7KrXim6E2pgTp M4L1A cQDs9RWGxOp5UDnWeFNGrQx1LR3S+NleztjEsSmdRPAo2ESTix0HzItg1T7wlDUt9OLLbFi3XBJE5BXQ wIFIv SVshCDYjVYCfVt4ZILIfCL5+GcIwGT2hcnc4OrhmRTWwTknXBEtxJ1s0UhtlOLBUNSU7MZDtXAXgT8He NTc3I MLnMv7CPrMnVJDxBd4IE1EFv1Y8Wx9CJH6zx5UqBtR7CFCpXV8pghr4DU7LDyR9HZTjRWCuOQx1OFGaH iA1OD feEXVGXMF5YDGpYSGvY9ZjHQj2QMTzUu8CUgKcUEPdVm3TU9XNHj5BKG9ov6TiHwG8BSTzEY6spaj1SY 9LWzU 6AKTrUTTsIBsrCLZlPa3uPXH1WidyYDKGB0JfSZZqNIKHP0FnZCK+UmpgzmMnEceQVWxyNNSwr8YbDyf 8L0sg QNs3YKWqYo4ECYL3ZULqMCZcXRofJLWtXRBiBr3JYM3+KbTfZK6mjye4UUEsTCXrBguEOGkbHdP4RJSr MCBSL 7SwZZzyXUVnNt0RAfRyGGBiJb1MC6LOOh3EKR9qv0YjEhY2CqJcCE4tkbe4SO8KAMFmBL8KXMB4OtKyK FIvUG jhVHUpZAVhNc6UTv9ZZB1nv8PkTqA3PQHvCM3eaob0HC1XBPThOX8ZTKC2PFJoAVNkQXudFNLqEYUrRq 9QPj4 MOA5su0JpCyX6QDEiFP9zjpw4YM4OIZB3WyJuMEZuXKQ0SormAODGG5WgVZJjJSKNC1EeEIQ+PgplbmR vYmoK DOt0VPYnh4WzPzi1H9igALtnEAWjTv0TMGL4VKNiPVOsVZytWGYbAVHbEc3BWR3+MzIgUC2frrr6OKxy MCBvY ygSOWhjScL2OOCwKVUVQ0KgFUk8BDBlCq1XCvIbAZNpRq0ZR0BLTa9PKV9xc7NbNjC3HQDeTG5toge1U C9LID B4ZPBnWQDyYDH7RqnuZSXBO7XzTFTuSNSAA4FhEJY+EljlypWaLuvCXQp4WWJmj2OmTww0H5oeWeP4D4 AgNTg 1DSXbIo6UUoEpDVPuOs3ZR2M+SqhizzAlRgsBONusLMRqz2XuMms3E1kqYiJbF2PcDIg1BMPbQk2SXuD xIDAg Dj6RT4U+KeeusgWeRvpSBHjtSUSzz6XhEii6W3hwDuEaV2VuIIe6ALQrLx6NToQiNEOtVp7MC9C+Pgpl bmRvY grAIFfsMGPyw7JfYdy6V9jbDqS0J2UoOOy2LKWcOd5QFhAjMHUaQk5WX4N+PgplbmRvYmoKNTkzIDAgb 2JqCj h6I7rzIFm6HNAiUi3TBCXpWBYvNGYdMCfrDNAjZWLbAe9EDu2+EsHgEJ5jdsi1FBBeEIDjMrjNEKvoXy AyMDk xMIS0LENdRAJDV2NrDPRuECDPG0NyTLg+EwaekwSeXnyEENi9VHNdf6BwAdo8H9ynCoP6UPVyYy0XVCw zIDAg Ag1HDoDlOHCvNf2PE2NNQTKnVt3XUI9er5PcNzD2GnJeDM2xhan8KF3SUWH9LlGuFVQcVCF3DvUtKOTi UGcgM JIkCDHcJe6QSr5ixQ0+FqLpDJ7aoif2KIxaUFZlBvvUYNttV0b2BTceVGGWHKV3WQAgEJQaR9AoMVe4Y DAgUi 2PLzRiOOOaKv0AL3PUDi9LNK9ik1CsAgM6BSCjQC4jdoi2OD1CRhQwFGJlHWXeKeT1TODuNl5cDEV0YO cgMCB TE1UhEASaHQWHU5FnDWV+WrwksaHpJdxSDAo1LXTbo0DeZcv0B4brTcAkPSMiQtO0ZOUtUVDFVJ5XVQK 5NyAw INUiTXtlKIEjLCDmPk7IWS7+DuEtNF6wlsp1RIVdCPFbWunEINyzJPK2IJufPSJBC1ZwEGUjcMI+Pgpl bmRvY olDOhCyRNDej9EmLqb8Z3hqZiCjUVYvZl8KGHQ1RMAkZBKkTYfhYRRdRIBxEr4VPGFcCK5+XcVdCZ8hn go2MD UyWUMbKwgXAXssI5h7SHNmTQRMAUZiUAGyQDNrNuI5PWRqXc1rDHA6VPBoDCLJK1CuKHSuPDFAL6DyPK JvZHk +RumqtlXaKdpKWkSzUBBsk9NcIsb1A2jdFnZ3YIJqBq8ZHLDnDnNoNMHoEIgrUANvHOFyUb4JDt9+CmV uZG9i hgk1DEYiWSDrMxiRSSveX9w5TIIdXORXYKNoRUVlZHRgR6VfQbGvOCTbUv6YGnEvTAWtXs0EL6LBFx7M ZW5kb 5PiUtRmYHHkAZ1hfkb5VQ1KFnMwZgMrLQFpLqY6FQOnVr8cITH3FKZlRZAEJ5LoWKAkIEQPB8BfLYH+P gplbm ByQjfXZrA7GAAkl2WiYuj2D9ekBpTdCWBoEs2BJGSzOFCsGDGeGWynSTCbIWXfZy4SEB9+VdQeNO2nma o2MDc eWAEdXvwDWAkhZ8g2NGzaFMJZXJDmMAPpUFJlNcUcXIHzBeA5QUAiZUXOGC1LRAIpNEYrTMObIGjpZKR wIFIv Kf8SQN1+KsGhMC0lgxp2CNzlBJNiHmyIYDkaShTpXZmqVBZ9ZDmdFHWKN8BbKLLqJDXUW1DhII5+CmVu ZG9ia dd5YYtyKYSrWxcKJDkpPiVdWNitIOQ3EYhlBKFFG4PeEGToJSIMR2QrLR5+WxSlOH0xyzo8LEPzXZQiM moKPD woGuNtSOLgOSI2YPrzNKYTN7QvCVOxYYEXW3BcIR5+CgHaBJ6boev7LRRgHWLeSyeJIRdnScUcOIHmKK A2MDc lWFWEY8AmTVWjPSACW0BxOW8+QwGfNE1nnbq0CGMbYXMcNvuYMNpkCpCfCJObJLB0DPWxKLUAO3FyFCJ gMCBS F6YdTR7+UzBrSK3rjex6SLDtIFDnDrwAUPjkSkZ7KXPpUPMIX2WkThU8MHXsWh3OZsZjSWNuIz2LO4JD Pj4KZ H7nu0WkQdRaTESzGU4lalj6YW9SUJLhJUCdHQGlDML6YGOtIDUJA3RhTZYxMCIQX6JfKFL+PgplbmRvY moKNj Q7CJDsm3JrVzl4P9nfXVkiZ7IgXpQ3WQZfQg4QThNdMUOzSa4AU3J+FbdlvvEaOqtYByD8MMNdf1BoQb w8L0s gTZz4O8ZoUyNrKAYbNo3QSkObWOKlDb1PM8J+OksmzfTcKovAHoN9TCGxj7XbLfl5K9UaXxCeGUBlTz3 TL1RE Kk5SYZ0dq4TjMgDaMOMpUD8aliq3YI7ZDQI3FSWgOYXrUp7QVCKtTY7+TrTqRA6ojwb3DVjvTYTuPyfU PDwvS uI1MdVoYBLHI4IhKQx9ZIOkGf2LBkLtLGQwPp3QA6BiLxxdTj3RAW2jg6EyVcLlDACgYV4qizr0XV5MV DYyMS ZpALQwYXU9LJosBDSBS5JoUCVyQOLVW5HoFWSyTHc+KabhizFcWphTFfRbGRIox5LoAee3M4pxCdWjHR AgUiA 8IsHtIMKDHU0FGHIzLQVyDBWnNVhwVNVeBBGlJu9DWm5+JiByIU6gdhg4ZwPpLJCaBkvLEAljJhS8RjX gMCBS H8LbJzRlTTAkPx3OEjJmWBAzGd2MH8KVNp6GNU4fq2XzHcKdVpAvYA3zqax1DT5OPTQfFLGjYJBrIKM4 MjEgM GCBU9BpTETrPWEAO3DkDIZ+LfrgcrPmJjnSFuT3WFMvg7HmUkb9W2wuPCj3H7AvTqBwRPBhZc3JXiAfQ DAgUi 9TL1A+GpirtgXmPitEUmK5GWDdj6GiUer9H6ckPXp4S7JfRkFjVLSlPr8UJdCaMXTqBk6DQ1T+Pgplbm RvYmo AHgE9LGFrq5IbLna3E7irLrL2EECrPvX1VfqjOONCAJ7BGAU2NGDmLKDoBYltEZVlIUIcHu6WJk6+CmV uZG9i scc7DdecCAQrEdyCFFnsLhDcJzFyIOP7GtIlZQEMG7NvDQWbTFPHL8MaOLg+FdftciDtUmhGRcU6LORp b2JqC ok2R1onGVQ7L4IgSrA3OTMzSe1JCrSsLFFeBl9NB4EQPf8OEL2lj4LtVrRxOQDjPV4hirw6GZ4MUYK0U iAwIF OgGTL7PkQmBYGvGMpjUBZhCFIhVd3IZFGfHT5+UkWtZZ0basm0IoWgBIJwMcmCOIacNaE9AiVjIWQSW0 AgNzI kQCAOR4PtLSWrMJJOE3GjKDAuUIw+WmoghnIeDtbGLkHvEJLbq4BvFdc3G9vdHeIfSXBeZhH9AtZbKDG SIDYz MAAuJGZaC9TuTyUhTTNpWn8TOyXcGQBtPd5WP8NNFk6VHI0ov8CgFuYjTsSxOJ5clpo3MV8FRAVsWMDc IFIvU QP9XwRhSFWUZ5WkRGYhKTBOG4ViIAA+ExsqaaVpVdaRWpXfCKZdb5XdIus8M2jaDsP6IQYtHtB9SmsoK CBSXS 7DPHBhTIYfIBPnUDgdZUJaRXPrKk9LRL3+RsQpKF9fylc2HjKmXYSvIgeITVjnYuW9OePqGRJGV5ZjVx MxIDA qXz9FUcCpNBGoHt4YK0QWFm9LGB4vs2CxRgRmTRZrHH3ofrc3BS5VKQH7Zo2NKODoVFYnTKMcJJckREN wIFIv Lo3HCf7HZK8pi5FmBlCmMlSaCH7wwtk6GA8YMOH5VH7QVRCoBfFwTWOqLMvxFXQgXXBmVo0FVz5BGM3q b2JqC zVyJhHeTC3yisx9SW0FEIKuQqBwCUVyKx6DQRCtCY0+RqXsRA8dbiu6NrbvZVUgNfeKGTsbUkW6LfysO CBSL1 QuYzIxTEMjFz9NDyBrRMYwFh0WK3JkMacxSp6XKA2nj0BfDvWsVGOaWW1ebyw2UA9RSyJ7MITxLLDkRv QxIDA jPx7kZOU0CdazFLDPW3DcBLTbWDLVS1SyMJWpQQc+VdtolvEuVesECsXbVDQao9XyYho4B3qkVoI7BIR gUi9Q FJDoVPOhMPSbUYwvKUVfLOMwDr4HWc3+EfHiJV2tiio2WYRiGDKuSohNSDqoDaK5QBIoGINRO5PsXnE6 IDAgU b6TOzVwIFMlOv1QW7VFEd9KNO3rc9UdIhV9TeIuBY8hvij3DD8IECD5YzHvNOUzOYW2OZFvVRKZK3BoC DEgMC ENW4VqUFK+PpxljeFnNqsRLzXoRJRne4CmVyo4C9ttFEStK4SnVnMgYYOvEn5CIqHaUUHlXo8ZA2H+Pg plbmR yHknAByY2ZLCez1CkSpd3D5ojVtK0ILRmUd0JWSB2OVUoCUNyLEqiSSGxGEGsXn3EYW4+IzGuNY3lpqr 2NDUg MUZdVuaEUVllOtFcUjgjLGG2VKXmIQGSJ6BxHZXpVHYAX4YwIR3+HrIbBD0mnzp8WSGkMGKhCjfNRErd S1s2N PbdATRXQJM3GIPdDDCdLhX6SVAtZq9hKJQ4LenhZPYEM7RiVLRrLVMLV9LgRLK+YbukzaFlHmyJKkD8Q DAgb2 WmAzo4T8rfTKK4Z6VuCvB6ARVoPy2LQjIcKEAbGj5KU9QPQf8OUH8jt8VtEhU8GTHtPA8swnd9RB7YOQ EyOS9 LULP2SoYqFRNaFHneBFBzLNOdGs0AUW4+QfKrSU1tnva9YSjxPFPiGcqDRPpuExIsRfHcUDD1WEVxNXL SL1Bn MICgFUAJU2UyLSr+UetunjHgIpvNCcZwJZMpk1PaSdw6F6ytNhV3UBElDu8ALXbhMTAqKf6OSaSqOSMw Ui9TL 2IBh6B8Zb7PKN9ya4HaGbH7DOOmEX1pjkd2OW5PAJT0DePmNBLkMSL0HEHaKWTzUAdgZTHdBFEzJl3ZT GVhZD 4+RqUrXB8pudv4XWQeJGApVfhENZcrNnR4CLXvXDMNO6KqAjHrZOIgGl9LVqLhECMsTr3NK5DVYs3LGC 5kb2J pObU7QbWkZA8bnaa7XW3APSZ3IK9PHSP6WqFlFMXmTIecZOTdHRMxVa9SPA7+FdQpNQ9qwaa2OSHxKMA vYmoK RAyaXvA1JJBvRRIDJ7JbMiZbCAJvRw3DOuFkQDEyAa5XS6SKSn0HZD9cr6JdZdS9HJOkEV9jehg0MJ6P WzY1N mIhAXJyXnM3VZClEq9ySTQ8SCTzTIOVS9PfDRKyTZCDA0SfWYH+XsqnweToUogHMlU8WUUxy9JjNvk8E 0sgNj J0DYCaOt8RBID1KZJvXYZsRYsaWRSrNJUyLt1CESLrUD9+OnClTI4prhp1HLuoXHJfKgxYRMqyAFL1XF UgMCB JQ1HtDRJciKE+VxxldrKbBjwPXhW6EHMwd4RwArt6D4ejFhP1EDHpHwB2BeZxIFFZRDU3MUQlNTRuIqJ yIDAg IvF8WpIdJIMBUU0XRPL2FmLyODPfIWjwOMWnFGXuZh9OFk7gdB6+TpRzGW7zlrl7ZXyvTRFfEslMSGzx S1s3N MkxTWBBXUl3WIZfLBZuVyZ6DWXkAoY4VBImLYVURY7GWPP7YJWoRXMrCKydCTVzCOWqMc2HZk4+CmVuZ G9iag u9XcMsAYUwTceEBPqeI5t0TKTnSOOQKAr5XYJoMSUoO2ExDeZ0QVIvGc7NOmShSESiVu6PD0SXMs0DQG 5kb2J iTwG5HVGyWK6vcom1SN0QFspxPITtXVDpBkIfKTXcYl6bPBK3GZroJGSLF6DvHZXsZMNTX3VzIVS+Pgp lbmRv JvtROaMnQKTfs7UcBdr2Z4xpIpG6MOKcVl3SPNA6ENRtZQPzINgjCVDlAPDzSj9DMo0+AxXuEM5yckc2 NjMgM ZThGcsYCSqrWxT7IxDlYZLGC4SsZgJ6EOQeXp5SWjQsEGThSc4UE5UYPr4ERO0yf3ToHxI3UELzRD2sc go8PC 3TQUD6MTTsNJCwGME4JgIvNIFCN6MaCOIwEHIXG8LlTLX+PbrbikSsOzqQYgE6WREwm4QlPhi8K6rgBr Y2IDA dSt2AOZY0WYPsVBLgAYhcVLXySENaWn4QGSOaFG8+MfMpPT3rhiu1PyIkNZPdZqiPWDpxShQ3TzxvWKX SL1Ag HwP9QAZpOe9ALfFyWWUzPl2PJ5RUg2J8Ed9NXI6hl9EjBvV5SqFvZX2ozot5NI2RJcM9GAXeZPNyZiU4 IDAgU rT9WhScFVPQSO5YIGR8XlJsBQEzEJerTMJkGSNnHq2BOt3+BaXbMX7fmll9TogjMRLeYgvAXMasGxV5C DggMC FHF0JcSlJ8JYNwFj1SNkPcMMYoLi8DK1KQTm8ZXF6tr9KjMoB3KNOdXB2tves6KL0OZMbqEpZqGTBjJY A2Njc lMCDKP3TgAMEpVNPOV9JnOIN+UukxcwLhUvoLFbccKJUjn3IpOtf2R5swVldzXSHnRn6OQGT5OcObDFQ vUGcg OARyPWCdFp4TMF7+MtEfKE5qisr9LkFmCBYfYiwOVPqlUeA6IoJzIWFBR5BsRjnqDAVrXl5UDkYjGKFa Ui9TL 9SjPnmaEh4WNC3hc6PcCkE3EdHzZW5ijvl3DR4QTpC6QiXtTVXcUph8VDHhKoP6QvMwCRNJEXA1FeOtS FIgNj f7LHWpXc7hHPK4InPoDBTRI4NdKOQmXOIBE0GbIIKvUHd+BeacylFlNjqYNtjxTBNbj1ZvBog0V3nsRu AyIDA lEuM7KPIvUOCBTIdjVIJcHZXcG9WsJjobUJEgNo5ZTcAfSZEhFy1ML5VSFt5DCY7ol3SgTfO0GFBfFG2 iago8 VX7PNuN0HwEpDAYxObn0DZLsSoV6SUriMLIOMF4BUWT9LaGeKWWdYKwbPZEjMLDjJi1GEe1+WmXoQA9e ago2N pOxIGLnVweVBItlB1z4XEIzYMFWDIC4TTUzBACjYaanTTVeTi4fHED3DhBcZBKCD8UqEZJiKMLDB0LoX FI+Pg cgxxMlTgkGSqx8DIEix0NaXox0J8pjWgu0DMVrPyT2PTBgMDDBTEL5CkFtGHUsG1KfPecgZQUiBf7JVy AxIDA gJt4CW2QOMd8JKX1mv5RjSfT5TnNwGD5jlgw0JV7MSsP3XHVsHRNrTrk1QNNxCyD9DLFnBZHSOJ4RUQZ 3MiAw EMHvUCcoHYLjGSStMo1WZs1+YmAbWZ8ojwx6TlshZLXdGdkBWPylVeE4HDVjREJOV5YgLve9EILqQk7E ZyAxI LTpKf1SB5RGVm9PWV6oe5KhClY7LFPdIS7exzq2AQ6ZAGR6ZvUxXPGqWWZ3BszbKHGUJ5OlGPCkVCYJQ 1MvVE Q+XnvzlcSpKxmJCjihDWHfz3LeYdf4F3siCiusBDErMa9NAGT7PfYaYVBxZAtqWXClFVDnUf6VTF0+Cm VuZG9 aitv4YKUaZBJwPlkFPBwbAhLvNKMbKML0NHWwPQVXJ8DhYFTqQVRCR3WaEM5+KcAjWH4itfa2JKHtLGW vYmoK ZEfxFmKxRFLeMQY7LpwrDDORN5ZvSWNgIEGDJ6RoBD9+WdOrOS2kqdo1CXWoGROjQbaKNKatSbK7DS1P IDY3O OZjWGVlTJxeVLXyCEZeSj2EPw8HEJ4ex5TgJkY5DPZsQY6tnec4GK6DHCC4VIKvPIImHOP6VyHkKJQZY 1BnID JgSVKFI5EvXWP+XymizqAeAkrFHtc4BGNrl7IpBsz7K7stPdm2NPSiKy9HRMS5SuAvATUuIRnrSQRcMN IvUy9 URD4+KcKlOT3zwdd3RSUnXFZjHgyTZYfiVvP6UHatFRUUG0KtJji8CRRgAj1ATyVoZGXeCr0QY1EKVv1 KZW5k l1BmNwH0EzVzXS5pvnk4KD7OATl7J6SeRmq5ATExLf2EMsWeSQOfMn4HM4T+UxmxabTlRhhPOrm9DGKh b2JqC tl5Z8nzLRBsBBX1ZITxEYXDF7HiCAVvHGQOU5EkTH1+BvNhLY9vxdz4TRptSRFxOkoGVGwyNiM3Wu4OO DY4NC GlULBlSJhhNLJhYYStHk5YXc8VEW0cy4VkDhY1PBIbYP1gjuh6SV1HDXL5VRDwZJJeDGX2ElYsMUHWH0 BnIDE hJFJIK7AwAST+DjnwsoFbZdfXZjnbXUDmc3YqJjl9S2slHqr1AXIwBx6EBMS1MOTyIIMfHVqgQZLeMCW vUy9U RD4+WsWrPZ2lctq7KARgVFDaGanMRRqoGpF6XTXiMWWVM6WzZsq4ARIaWk3ANnLpAOUjPj7CE4NEHb9D ZW5kb 6LkDoH3IvOeWG6pcfp3JW9OBEh6I6PdFlwwZUJmQg3DSgNdQCBlDg1JS6R+BlqtojYvWguKZpp9BLRiw 2JqCj h9J8bsIMewCCA8QMXjEKENP8XcPZUmAZQSE4GxFN7+QtTpQR6hlqc8METvLPCpXuqZMJjiJhI2QD6FCD Y5MCA sGXDyRIxnROReXYSkZc9GOe7PUI6uv9VrJsG6ZuJaFC6daat0FY6AHXbqUWCnZUDbREY8XjIgLUOQT1I nIDEg HMLHH6UzFGY+FgpmdaZfKjqLOha4CXWrx5LfClm3M3ggLhZyOOYxPw4MUYR9FODbXVUrTXqkMZNwYILl Uy9UR D4+GrJhND9oyij4VLcpTIUlMuaPTWjbOaB9XRvsEIMTI6PlVqn2UBEgWj1CBgFgLKQmUe9TS6DINl5AW W5kb2 MiOcE3KJRqNV7royt7BC4ORPoeJ2UiKlb2JXMuWc4WQlNxYOPrCn7KY8B+PgplbmRvYmoKNzAwIDAgb2 JqCjw 3O5qrIFJrADB6RIeyBPLQO4TxKCMpSSSOA8DiVI3+HpXzCW1jwkh1AAHvHQSrNvcGSLpsTvG5GL3UJLQ 5NiAw QMHiLMzyQGLdVHAzXo6XNu4VTV5co7SkUvzqYeYbKI9tnor9UA6IAGZ8BzTaUYGsNy7LIQ1+BrWvHO4s ago3M JQmWZXmNgdJJXiiT8d2EMZkEASMAVowMQ5UHHY5WjKxXKWkCSjtGNYhJTXyCe9FOX4+WkCnIT8voly9N DQgMC CdOfbYNKilZ5l7PFJuVTBXYLj2YP8RGVM4KrIhGRCpDHrxBFZnCSNzQh0VDA7+PmNlWW1jzhi9HULfLK BvYmo FHXxvSrI8GW8NEQzhUNOpHUYiETvcGJXzTMCoNi7DKu2VLY6us4IrXetoPfIiYM9qkty2AV3XFFvsQ7G gNzAz KMYtSd9HTpHrEDHnQr9JS9T+UfiaojIuQqmHItY0VYMbn7UlOzb2V8qeDbKqYBE3OmxeDKNGO9WmGDVu MCBSL 1MvUD4+XoPwCV5wiro3IZtdNTTkDjjAVFsoMtQ9MYwdKDHPL6EnJsY1WDIqUp9NGnKyBPYlEy5VF3AuD mxlPj 3OSZ7tk8AdKcbqQAJcIF8zesl2VH7SQkzvFEKwCITiVkUyPTZbXvZ6SBYwWMJJMYqfUhXzNEEfMvY5VL AgUl0 bGKJ5YRpfLEWFP4AxEVTgOQWQV0HmUPSgKYg+FieeghYoZyeCMbVnFNJjw1VrQqj8V8ndDnZ0VTXgOa1 QIDcw EIVqZLNeJLryQKHkCQOoDy0QSx9+EaUuSQ1vmud6DFFzJZXdRiaOVNowW2i9UromTSBAAEydLULlOMVv NzMxI VDhZu1lBUH9TVimIULRC5WlZLOfDCXVB8AeRYG+PnwqhmOwIqtLJiRpWSLbn1VaIbv7B5gwWyFrWXWtA iA3Mj DyVHLBLPqmINZbGOFyM0UqKfH5OKWpJe1WYnKaVDWyQc2MD2MBNo1RVM3jn9EpSkalDtZmBJ2zaqs9XR 9LWzc aQkFlUSEdEeH1XOWtHmA7ADxxQXKTRL6NHJegGPWkRZIkFGydJFDbVDNeKo5PGl6+KnGfBM3nikp3KAO gMCBv EcbUKZskBsQ9LUUsYRKAQ4ExWuS2XIFmCi6NUxEoAKWoLr7QV1YRPm9JZN6ae8GnOcxtUSTpLD0dafo2 PC9LI NhwJfBaAAVvKEB8QORgQRQTB8XeRNVuCOIIC4TeDXR+HjzgbbIrPvqKDoF4EFJjz0NvPzn1S9qhLtHmH CA3MT UhSQNQA7GsPXLpDIOPW7ViBM4+CbYuNB6gblw9PXwzIPJkNvnSTKdmAxE7UfFzBTFRK0WcYeQoAHYqLz 9QZyA tCKJfPg3PH7BPIl6NUA8zg5ChPugwVQRcLH2vdva6BJ6MOCtdEIKwQLNlXAT9FCAhFIQGM0CsSPSvXIJ SL1Mv VEQ+DbydpzBiGaiTCbF7TMZrl0HrJdw6B3ocYrPcDALwBe5RWHkzBeLpHPTgQQhqRWJhINPxLq6TPY2+ CmVuZ L2glvr9BbFfJFKfUeqKNUliUyV7Nu3ZZIihWAGoBSXqRSpxDRSoKNZoEs0CVi7FFO0sv0PyNxxjZHNzE G9iag s3FK0NGHS8U2SoRnJ2EQPtKq3XLzWuDRCvAb3OJ6X+HpewxeGqHbwWVtHdMBEgs5ZsKow0Q3cpJYAsCQ A3MTc hAMQGW4BxHPNaENMWN3YlSD5+HjLzML9nekf1LeFcRRGgExbBPSnbNgU7CyreOEXKG6PdSxBqRNHcSl8 QZyAx WTAaQl1AG2CGUc8KWV2wd7GwHkuxACSrRE2vwqr7EU8XJKxyHoFiQZVjQPW6YVRaFCEYA0HeMGUrSGEC L1MvV EQ+UcvrgmQkDedHGcS8NLWrj2FmWwf4B4wgUoD0HWUeDt0AXRihNcAoDNJxKYvcZETkKNMuRp0XDL0+C mVuZG 8ipey6UfRsRQRhIisRWElaZqD9SS8QJPllKNNjUSXgMEioFVXlWVXrIc4KJi5YWQ9hu4ImQefeEfZbRW 9iago 7TT2TEIU0C4XdHcF2GVLoDs8MYhCzKCKhUt4HV5N+WhzgqrRqEakXIsM3DZDxl9EeIzs0X2vpPTVmPOD 3MjMg ZHMEL8VgDYZxXZIZI9QkRY9+WfHgCA5wrnr3PfvgVYYjIyjVMIdmQUJ7UNGePRRDX7ExAKW+PgplbmRv YmoKN iOkFMDhi6RmTxa1Q1huAoW7WAPsUbX0CrMbUQMXVL1SIKurAHVwLFPyMVgwYVEeEPFdLv3IYJ1+CmVuZ G9iag n1YaWcSWPyIcmBQUvbN5p2MuCfLNDTWPadXdUsWGEsX6EkAwFsSTIjMt1PSxOvGLCbCd2UT2AZTu0JEX 5kb2J xJytnGzNnRE5zqnp9UR9ETOAeO7XbLwQeDLVoUl2ASjKjCUPwEs3TP8E+SeedwqJjMcnUKuNqFYYal4I qCjw8 I5wiQKFlZLS1ZbZyKGDXP9ImLVFkHRVDH8RtFI6+XjSxXX1vetk0GtShZSZbTdiNQAykRpPsLF8QCOjr MCAwI SJlPKeoFXSjYRVtTi6OVc9GHQ0dq1DnPouaVPCzGV5rtkk8SL3FWUP9H1GxQsFqNNJoPd5QNgLwVTLiK i9TL1 A+VxuexwSoVxfBHlB7UPHoz2HjGok2R1rdUcVtURW2KC xgzUtwj20PxQWIDV3AxWVYyJUJOX4AqGCi+AlqsiyVbGthFEtM2SIClf3LtFvh7J1rnUqR9OIOtNf3IR DY2Mi JiEYUlYOruFRGjAZXqXs8MXR2+CmJqEI0qdna7YnywBSApPniCBIutYtSvUn0XTHgwEwPeMVLoSSysBT AwIFI vDq7YIm1TDK5qu2LfHzcxGLCoUD0rael1HI7MQIk3IiWkDNZeFUX8BlQeRBKXW0ShSMXvZDWRY8FqNWM +Pgpl hnIyEqcBUaZmZIBso5CjZwi8N4jgFuRtKZImLz3AHTD5WZMcSREdSHzvYTTtTUFdMa2DSP2+JeNpWO9g ago3N YSoSHLmCxpQVBgrMfAqGX4OSIh0GYXcEEHrUHtlMTTcEWBmPc7ROt1TGG6kk1IcKub5VwXeFH2fpee7X C9LID C0P9XbMfM0CZAjOp6XDhRkRWMxFx7MR1G+PwwqbzHqLbkEDrMtEEWuv9CvWyy5Z4vkXjQ2RORrIu1TCP Y2MCA xIRQoFHqgNBKlUDZkJi6RBJ9+XgOpBO2naxj3ZZNbYRWeKmfFSGrgZcC5WPRfPHDHE2NcLwPvZEDwFm9 QZyAx FZYxCe8FZ7DBRn4NKJ3hn8InRvf2PIOpOH9pxhj0PU9OEEAyO8OyAgG9KJHvJl0IQqItXZQhKe2BB6X+ Pgplb dXrQgcRPoX1NUQqt5TlGgy2C3yzVVHaEVM2VZVqYPRNK0KyZRBoUGMBK1KjDB9+LaJgFU9dsru6BRveO CBvYm fTBPwkMuW8EARwOPOHS9XhLsA2WEAnVw5JIbMmCNJjHb1FU7HOQe1CGN7ja7WpIax7WRQhJL3vzjr5NT 9LIDc 0SyGcSXYeAXG4ZIwhXTYBJ8QvRPVqQYSKE0EoTWG+PykjklReBppAUvD8IXGtq4NmAdv0G3plWtZuJLQ gUi9Q OAV7QGKuYSWjJCvcDMDeKFFoUp0KYI0+VcMeXL7dncr0LGWaGBGnNfhVQXqtEoR4OFPrIKHSK5OsLeF6 IDAgU k5PSmLgBDUzWn5XQ8CKVu6ZWO7mq3BeAuk8SOQyIF7llhn6QD5ISOizEHQ8PIRbGVLYN1DmJINsTTITG 1MvUD 4+NvNdJK8uwkz6JUKpDWQwAxrVPCmiZbR4H9TjVmN8CUReLd0BVmYmTNYpQy0EF3W+PgplbmRvYmoKNz UzIDA ou9FaMzj9G8plQe4MXRj2ABJaWCJsURduTNXsPMTfUv5HEf3ZRI1bi5SsCrd8SFSfYO8pesj2JN0OXMJ vUCA3 RPkpUVOOY2OdIWNiWJNJP8JtKG1+MgOeRD1cfpe2JGDfDAKtOvkAAUxuNlG4TXFdZPSGG4MrOcEiMFCP L1BnI WCxSFZyUWQJA5RrYKafKGJ+XjijztGhJfmEZqI7HOXti6CvWta9V5xeDrZ4DCRrXc5NXOdoXPGxNz7WN yAxMj G0TIGsBp6PO8JAj5R7Ry3JUQ6pq3EjEtp0KtFdRT2lklu4WG6JZWi8XmAkJSWwURN8HYQeNFZvNFmsQQ I0NiA iOJLcEy2DIDNsWY2+RiYaSB1pbku2JIdaXNWmKlqYLJhyNoG0LDxwJEWZS2LwFjMeXPWYW0IlHAKeXBE SL1Mv VEJvZHk+LojajpAzSpqOMhQ6XXPnz6AnNsv7J9seWeZdVDLvNj2SOGa7ZQDrTVRhKFdwDEWnRSCyTq6D Uj4+C qXvBD0rekr7LdGtLNWcIetBQKfcYbH9PhMzEJOHK5FdYlF5WIEwVp3IZqQyGUSfOw2MY9WXYs3VNR0qj 2JqCj p6VQKfBT1uyli3EO5DQIIfVJ6IZMl2YQCfEOVoGFkiLDQeISLfDl9XDd8TPI8bu9LsRnq2TgBpZA1nin o8PC9 ZZBa0XqSuGQSvCZS0LVmtKLOOT7NbHVXgYPCcEQPCW7LyWOS+PmcttoJwQfjYJqXrCHOrt6TvHji4P4t gNzY0 ETDwPu9YPUx9SbOtLVGxMCtdADF5QdGpAARySw0TWZ0+UnKhWG5vifp0XzFfHRPyGtpLPCknMlPwJOCi UCA3N nTpFKKMA4DlJYUoKWHSB6ZeVA9+CnGeFH8sxws2TpOjUQCnOfpASVxfCxV1SuErVRMMD6GlGjD8VSAlU i9QZy WyTkQ6HBOoOp1RG0RBAs9OFD9qk4QiPro2YiYlCE6aznw0FY6ILmg1FmDwIILuKsX6PMWmMi6uQMV7To UgMCB IM5EcUEQpLYBfKFXGR9BxENO+NtkyexHnGigUUfV5ORMuk6HdKiv6J2miJbp7IYOuTk6JWDf5PgMbKHB vUGcg NGG9HmFnZPPkTx3QCVEzSK9+XpIrRM3qdzt9YqazOIOqWpmQXHfmVqZ7MbgbSRJHU3FfOpR3LAFbMj3S ZyAxM bD0KTMoLe0FM0QyVnvzCh6IKI2io0ZiKpf4NYFvVV4phti1CN4ZTzo4ABVnVEXcReovDNPzFyI6WjTgS CBSXS 9NGCr5WUVmZJBeXDqkHWO3WyJdPRXrLr7YTl3khS6+MhAdBS2rdod4IrDnQHRkMudBLLwpA7t1YPVaNL BSIDc 2BsAyEISkY5MnZqN9GXDzXo1YOjIdTeW0ADCqOb8VF3ESNx8PHS2if9CyCea5WJViVB2gxxy3FN8FXwq 3NyAw CVWtSgn6PILxEl2qTYR7MlggHBUQE8UhRMEzNHJdWEMIN4IrXOD+RoiuxoPaIswQTtjjNNJvy2FzGfd5 L0tbN hqnJIIiYmN3KeEoZGJYWE4LQPd7AAWcUWRvWRvbZWN3CjQhOZRbPt5JQt4+PgUrAS9vsxr0DtNmHSRkZ moKPD hoWaE0XeIcOTEPH2UmBmjjQKGkQp6GRdEyGoI6HLZuRw5WV7UFYy7GNS2lr2StDea9VOPbEF5wele3XG 9LIDc 1BSGeBZKeDDX5FqMeHUTUI9AqNSPaCNEbEAXAZ4TaCLU+KwgewmJsLpsZUuy6ERRms0HhPja8E4ysVFw yL1Ag Ptx2BCTiAw6CSpRjWnB7CPUyOw4VC6H+LquhpnRlFfsBIiv1OPYvz8DgRao0Y5nwGDwzP3UmXvseMUEe Ui9QZ mJdSxG8RZTlUf5ON5J+CbkytcOdVigCLys9HHFae5MiQvg2M1dfUrvyVFPwVr4USHm8RSEoCVIhVJdeI TI0Ni KoDWGvIz6UEG2+IxPjQN0qkbk9VahgTQRfRhnXNEmuVhW9OqzdNGYJJ7IzUvloICNaEj6PIpLkBuQ4MS AgUi9 PW9TXXt6APS1ak7HyGuf1DAYrDL4qted3PZ7RIEJ2Rr3ZPGj1TOXzYXWeGLzgJGE0GkKnUPKpVy1TPe2 KZW5k b9BeXac3HMBrLK3zwjr1NS6NLHZ3CE7IJYg2ShUsIABqCNvnHFV1PrSsMFJrEj7CAd4GTL1do1RnNnd3 MSAwI U1goly8OT3UNVw8EVZnTDYmYHG8OrBoNPBOM9LyBOFqIIAvZFACB8JtIRT+PgplbmRvYmoKNzgyIDAgb 2JqCj j2S4uuKhvlGAKlUg9NPYc2ZTKbNJLlTOvqRQF1HxTbJGPkSg8HFV2+PyXmGN4kmmo8DBMdXOBfSvqNLY wvSyA 6TeTeQQC3DMTzPTEDL0YwTTQaIKQtKUYAM0AvFT0+BpCkLK3llub1MYFvQQYgSgyXKCwbLeK0EiNrRNY 3ODEg ZEKJJ7YeARAlBCWlRCYWT1VxTT8+MuZpZS1tste1SLQgWXYeMjqSVJozA8z2HYEqEOXXMSr4OyAcCOSq L1AgN uI3JFJcVv4QHuCnJtE5YWPdLh4CA3YFl3C2Ms5DDM0wb9GaShi1OwBtGY5hfma9WP5SBNb8BKKcFWOiK CA3OD YdPGJHC7WhJVSaLGYsWBUQH1DvVKU+QkkeduQtXoqEXmx2CMDop6PuVnk8G0hrTat8WMJjDa8PNTt0LO AwIFI nSXtdXZV4ToQiYSNnKv6EHf8+KmOsBD3joes7IZnmGJAiOdiFWBsaGvV2PWsvCKPRN3UbVej2TQGrWl4 QZyAx BcV6FNWnJo3NL4NCSb9ZHN3rb6BcLev6JYJvOI3vwct0DT6KINB4YD7RICt4MRLjGFYnRPhnTUG1TpSt IFIvU a0BDn2DOQ3ki5AyGfv9WKFmGD4ytei7HJ3KPOw0BHOnGGVwMFJ9UVPkGQQXU0MhFIUoTYDlUOQTP9ZdS EQ+Pg hwqpUgGcsXFbmcFTAnx5HbBgm8E9osXKIjT7MdQpgsFOEfVw0EOyUjOyD3LTXuOa5BL2E+PgplbmRvYm oKNzk hGTMis4YmVfe8L9glPvwjXFHaHi2WUWv2EIPyIOWtYOjbXHW0PoVuANMeRz5VXb0+UbMrXC5gttr9ZOP gMCBv SzzPSTpzZ1f7NMLhRXMQTYX7LC0mKLY4VCBxEJBYD3TeLYHcCTFnVWUMD3NcXCs+PgplbmRvYmoKNzk0 IDAgb 7GxYon8B1nhQSPtE6XmIowyJOWhRx5TAeZlBcL8FJJyUp1AI8I+IjfcxdFnOykNTnm1SHEzs2OkWcm3L 0tbNz j2CJVoIjZ4FPljOMNLNXy2SRXgETUuBda5LSGsSoJ1SDGkHUNARShpOLBjRMXhV5XqRzosOZTZF5KkYF EyNDY oJEOAI1LcWFYqCUk+KhsvcnXcZhyIGpp0EDJen3IhCge1S7vvHOG6WTIjJc2SSNs8NCYiNTYjKJmdSDZ 0NiAw HJFmCh3TOj3+EgRrMQ2ykio1DNatITGdOcoHDPpuNxL9RLQpGPGHF7YpJxs0AGVlYs1WPmLnWoY1CHVk Ui9TL 7STVw5JIK0mv5IsFgz5ZZDaXS1vneq7RY1LEXsaUNRoQVXmMSJ0EUJfVTUVD4JgKOPuBZEpPASGJ0KzF FI+Pg rvioEqDymZTkm8DNSxi0TiEox0T5cvSQI0NUHhTg8XBEo9KUZxGALtYEwkAEH7ThQnCDZlQm6PIm9+Cm VuZG9 szbb1AQIhTWPmHsrUHDshCyT5AYZtQSIBY8TwMdy5PIGuCb1MWyZdApG4VLCuRb6DB6PRNr8ENZ7rf9H qCjgw PMXnHO5vsph0LO0HBHbrXlMqGHDiJRN3LCZdJMGAL6UyJPLmNKRsLMGYA0DwHNE+PgplbmRvYmoKODAy IDAgb 1AaCta8V9KkEVZgEBKeFf1AX6OJDm7PUM8pq5DvUzptZyOhDH3rsln0RV8IYwlqTFArIMQhQVK8YFJfZ l0vUC O3GFKtRSQAS7MtIEKbUTNyVBFOP7LmEGB+IwfjmfLjSagEAGG9SPZxq7JyPpe4J4prNPAoU7JkUHDxHX AgUi9 ZJjQqZnK6LJSjXq0NA5V+SahhrfTqGvuDTNO6WASzt0PpDed9C9ncKCZdI5ZbRPRgLGFwLv7ETrYwJrA 2IDAg Cm4WI3H+VszxyjHmArhCGHV4RWLhy7CgJci2O3ubNFY5BYPlXtW0BZmxSYHBWD8PGQe0NYMqGRUqHBma MTI0N aAwJXPdKe6MUD2+MwRbXH4vtzd9IIxwESQyVjlPJNmsIrM3EmizSXS5YYPyPXFRX6EoRGZcGSEmUNEGC 1MvUD 4+BvUlEP0cluj5UWsoKEShUgcHOShfObC5UhugQDU8OKGlUGWRI2AzGMWtNWFuAJXEK7WwZL1+CmVuZG 9iago 6LLcpKAJyWheBIEflM8r2SFSqKHXFMFbhWYPiBROfM6MsVlm6VTCxMy6UDmVoQyL5XOTjIx6KL8GZLg0 KZW5k r2HrRppjQXHuMJ0wjkk5EL4NPUVkLn9OFUopYAJhXZFmFSngEQJ0YbZwSEQoXs8WVl4MUZ8kc5QyBezu MSAwI B9cxax4JK0RENRdBe9HGBsaINTfKRMxHXbrSHL9IiGqMIHqXh5BUo4LIR0dv4TjWdraRyBnIZ6zhrw8Q C9LWz hrUzGdJREgWTC5LKDhHc6tOCH7CNcvJJLSS3LtOEMaHASwAFPAD5IeSRI+PgplbmRvYmoKODEzIDAgb2 JqCjw 9X3odJKN9P8QsPLYnNOIaRq3ORxXrMzL9WBHoBm0TO0J+NhahhiZcNczEXWR1ZORyb0RkJvp3G9ogXIH 4L1Ag XEAnOEMjQr0EBhHrEqF4PJGqGs8KG2D+KhowgrPkQfvVDYI5KBUoq7XhZll5G9sxHOOtN3DeBfq2STPb Ui9QZ wMxScN1KTPcDf5VN2LCMw6XRA7ei5AfIancUrFwKJ0alat2ZF8PHmfqTqEwIARmDAS5CMEtVj2qWSR9G CAwIF QzTRfvRLS3PcAoGWOcIh8QTn2jrY1+TtQrLO1uape0XLgaZFFjCvlZIEgiIeZ2EiCsYDZHA5HlABE5AR AgUi9 HJcWdUyF4IEFaPi9XM6EHBj1VOS6eh5BhNkxoZQRaBH8opfz0WR1NUKnwLTZzGXCpQFU4IZMmWIOKN4H nIDEy EPWbTLMHT4FqHFT+GmzgwsKmGxgIVVH3KQBpk8AhVdq6X0rqHXYnBTCiVl2TWPvsGNNoWMByCXyaDLR5 NiAwI VZmHj5VJR9+ElBjWU0aesa7JlOtNVCkFovCVLedX7d3TDVgFLM0CZBkItH6DCtwDNQ0GZKnNPP7RVKvP TEyID VbDcD3XZJsNTP2YMPbCzN0GPycR6CiPZR7KSTqGg7ZDoGaTvY9OBLnWv2UL5H+PgplbmRvYmoKODIxID Agb2J sGet4Y7opEUAbI7JxAWS3AMApGl6CJjZdPbF4WKVdNx7LO9ZJEy0BEZ6kb6YxKgnkAqIiTB4qlvk4DD4 LIDgy XiHgOMHhGPZ1CpBaQIItPPizHTN4HbSbTADjGv0UQe7agS0+VlGaUP9lmlg2RuXrCYKuHyaOSPprS3a6 MjQgM WASVDuoQJPiAVExS5RdYGSlCJQeIp5LLgJoPoB3AXRmAj5RP7MPXu4AHY1hx5WsFdpjWMCnLR6rldf6V C9LID u2IGUgVICeWVR5RrScBNQZR9FjQFRmMQPnXVRTV0UpCMT+CozfyxJiSkcCNFC9OWGrz2VuGoy3H9njCE I2IDA tDj8HQDacVwSjDSKiRDfbBDH3AtBaTGBdHn2NPP1+TwJvHP4zlsg1TrBmJIXfSjjFVCatJrV9SpkyULJ SL1Ag ABM2XEQaDy1FKtToRoK8KQOyHc9VC2DiGxbjEi5IMA1ul1ZbXhxnQzFpZG9gbhn4FX1TPquuSVCrPHVy ODI5I JUjWg0qMTV6YzWgTAVDO6KlTCKsADPyXGAQI1UtFQCbPAp+HvuyfqChRtaKKIB2OQEsw1BzHmj3V0ozU Dg2ID WoHlN3IUfiTHHHKM3JBKxnLuPhWHEzVWjiPGL9EkYdERWdZc5WUm2+OoCwCW5vkxk0SherYYNmZbhWVE wvS1s 4KuPkDXKPZElcJNBmHMXtK0JxFNL4JTGgVh5ASsKnWmL3KMOdAt3SZ8PGMd4TGZ2ud6NyRjwoBCXqZO5 iago8 SU2MEEt6VNQwDTYpIQA3UmvnKFDBE5ZlESDcSSPwURKSE8YnVSD+XkbjzcAxRhkITZNvLPPlo0AsXfn3 L0sgO HQbKBYcXj8LLQxnTZPsOBZhUFxuURO8DmGdDFJtYz0LJW6+RrYwEW8nkav1TfUwWAQcCwfCJIygQdQ6X zMgMC PIU4LsEPQlHEWfXd9BFsWtAxI8EAWmNs8KN3AaSrybDh2OFH3pr2KrSyfmQbJfZO7hrct4HU5SNpcvYZ AwIFI nCWY5UEHrHeX8VoVjJYFDLNonFyDlIZBtPEB5VJUaKmY8WwowVVXBUBj4DBQmKSKvGETzSBGzDxP2WCX gMCBS DW0SOIlcZoHqIAViMJmjXNS7CsYlUIIfMn6RTk7ovH1+HtQaZF1xkxr4PpOdSYYrNneKIKhaN6b4MbCt MCBSI Ci3DgAlGAUaF4GwGVTsPKXkJo9BKnKiRxT5XMPtSm9JP5RJWv2VLU3me0QaWyyiKESfGD8rldp2LA7NA zg3MS ExOJBxQZrjTOXkEx2qUBD6FcTiYVLIA8NjZOFfSMQcCHCTR0NnWDS+XlqrrvEoBacOETU2TFIsk0OlYk w8L0t dWLX7VQCtCiM8SuhfWRKEFF4JCOewZdPzAVWaZYfbUPM8DgXfJLPiCo0RSe1+CjDwHN3zkph4IexrECV vYmoK YWncZ2l1FsRgIWCKRUp2RKLrTBJtJ7YpCOJcGUYmJf4TPjFuYrY3SMKpRa5SR1EUZu8JMT9je8MxWkij OCAwI Q8sfye5AB7BExu1GWNlQZWcKTNnMQFpTz2vQBA2JhDeSJSIK6DiGQPiECSwIRAKL7VrWTI+PgplbmRvY moKOD U5BUZxf0BaQzq2Z4daJKY2WZFrWfU9PGJpRKVTBH4CQHpxWxRrMHReCHmdRCA4JkQzZHDlEk4TKl3+Cm VuZG9 tznz3XZGwKVYrFnhXECgpT3i1KBZkMYEAEOs2KoRhBNOhR2QvXRXuJRNeRh8XOnRwVqN4EAUxJp2VJ0Y SPj4K SE3zf2GfBgg1SIGdUZ4aytp9VE3HWrx9HtHiVELtLEE3KHJlZf6pXTM1TdMpRKPLU0HaJGIgMRSbMIPT L1MvV FI+PmniavIqDdtDFGVzZJAqs0UeBwu6B5dvVTCiRHXtTgI5SPJsCLKNCH2PYGjoTdJkFQOsMJiaCGQ9I iAwIF LgVs4RPu5+TvRlVI4ezev5JBEuOLNdEbyCGOmcXzJ0CJPhVJJUL7CuFCLiKHAvWv9VZyWvKnO6AYSoLx 9TL1R OJk8FHI2pl7UfMyk5VCEwZM1ophc4GN6CSJd3ICCjICSbSIS3TXHyYSKVW7IxTVYtQSMuZLHPO3OhVZC +Pgpl oxQdIjuEBFW4AWIsx4EwNao9M0bjIMa5W7FcEMX1RPGfRu0RUwSfCrN1FBNcWl0CK6Z+PgplbmRvYmoK ODQ2I VLex2KjBrf5D8rkJZnsF4LbOTAwWMUsSg0BBwKcQgR5GEOhOn2HR4A+ScboxmRvNlmEUGO5SIXlz2ClX jw8L0 ooXZQfQOMrPm1ETBr0BKZoMERiVDbeTSO9VfPzOLHdPo6ISB1+IzRqAS4fbpm4TUexTZAkHxpXIRafLr A4NDk gXIYMH5EbIHPkDWQfIf1EHrYfWhJ1TZUwPl6BR0PYUp6GPD3qu0HoSzv2RVOaFO8iyfh7LK9NHFX3UA1 QIDg0 EYDiZSMeBIbxQUQ9TaHnSMWdOw3TZw9VBH7ak2KlDjt6IAMzXX7vgdw8MI4HZHD8Ns4OATt4DiOfDLTe UGcgM AB0ZoBvSXLuLu8WOt1HAB0wt8OnHgl1IKBwKY6zlgi7PE7HKSz4VKGuOBMkPEI2EKHlEJCEV8OiJSVjD DYgMC OYK2UiWAR+ZpytoiYkOezAYFNuDCAdx0ArJfg1A2raZFJpOTXzRa8SHUn2ARFqGRVtRInzSLJ9UiCbZC IvUy9 URD4+JiSeMZ4gqnr0WZQtRXVbVxlZCHweKwC8AVZsPPL0RNGbHJYSX4SwNFWaYRViKNUDU2JkOI4+CmV uZG9i dpl0FWCgKCCjFcbHHTwgSqH9SLXwOHY9WNEiWLUZG1FiXXAhPWKlGWLSO7GvIL7+AcUyZH2evnz3OKVo MCBvY fcZKKobMqA8NBaoIHYOM2CcSXA4BSUiSd3CDaEtLxT8HHVtWp7WN7LQWa3ZGT0uh3CnEsy5CrWxJE0hn go8PC 3VUQo9RqWuBIYzZUO4KbflHOOMA5NqMYHvWDZfDWRAG8LgLDW+IukzxlMtZraGLUV0DMIsm8QqYzs9G9 sgNDc 1F6TxBBV6YFPaBo0MLlOmQdK6UOOaKc8SN1D+OygouwScPboMQGW7XQIyl8OlVcf4U4hkKGu3Q6WfZHE 1IDAg Wj4QSpErCkS9JFFhSg6BS6W+CbewjmFsBdtQPUM8AIWfk2TnIpm8M9gzEMEgWHQwYd9EUSgjKQEfIWXw UGcgM PG4GrFlBVDbOv9WQY7+KbVbZU0embd6XtDlFSErCkuSLXkoGvS2IoAeQHWIZ9OcIJY2YHTrAy5UNgBmC jQ2ID ZaFj7KP4FLSv3XCQ0va6JrMjk2SAZqLV7eyso2GS6USLX1YY1TSWo1WCXjOEFhMZgjDVG3AsDbOSGjHa 9QPj4 CJD6tf1ShKvt6IxTtOH3xoke5OT0TNCF4VH9KDEw6AWNrEDZoMQanXXN8KdQaVIYkLr0LPc3KFQ8zi7I qCjg2 XkGzQQ0rqut6DH3WNVi5WmMzYSChGPU7HrfoIKSCN3FlLWGiTCXfNRAHT4NwZYE+PgplbmRvYmoKODY0 IDAgb 9XpPju9Y6upALS1PHDtQo7HJOnfOjHaCPZuGEfcAQR7OzEyLXSvNv8LEB9+HiBlAM5hyej3CnKuWCOwX moKPD rbJfS9WiJnHAF6KoYxWMIIE7LwBFUaTHVrFPYCB6ZeCB9+JbDaZB3ribl0DmXlOSFwLxpFIAjiXzV9No MvUCA 1AwHlKHOGH8YcRUUfOZHlUELVF1QuEL8+HaRcMQ8nzna1PyxnIPAjRqsOMAsnCiQ4OmNzRHQFV0WbKNY 2IDAg Ij2ABvGgPlN5RCKiZo4IH4HWUo4MFN0xl1QwQgf9ITCgVS6nbik3WJ2GRVp0AVCwLZPlTNX8UjEoLRAF L1BnI TLpDAGuFWXHZ1HmWYU+NeztwkIqNdvHZHQ2XUBci9JsDnw4G2gwJZD8J6QzEGZ6QHPjUp6SObYnHnY5Y DAgUi 9TL1A+BvclnmHzZmvUGYipZHYim7FbLge6W3znRQD5I8ZhKET0CQQlLu8RBiAsLiV6VRLuIv4AX1E+Pg plbmR eTvsWGWltRYJok3VmWnx5Z2phOCo3YEOmLi2BHEfqEGKeRZQmYAviBJM2VxNgDMWqRv6GAK8+CmVuZG9 iago4 OeWvQZXcWgfZCWwnPkG1CyAyHJMON3BbEDW0FYQoJe6IEuEzDnS6AOSvFo4UC3XOZh3XGS3ff7TqHok9 MyAwI H8gmjo3DL5DNUF7Rf8ZHFy1XoQvGJKbLZhfVGP4OeFsWSAzFs7THw7ZXV1qy8GuVcb7KBKrYM1cqjf7U C9LID A8QU2SQKo0EZFfDTAyFGgdNTN3KkUmUKWvFu9SWa0DIZ2ct0JxIwu8YHNtJT8zahd1JE3JMPi3FTFfRG IvUCA 7PfKlKNFWV6YpMFXbTOXlDHWKS9XrWCR+IgfmhhDwOwrOUWo7DPZkd5QxKxm8C2ufFCb0BZJoYu3JRJu zNCAw OFShQHfrYTE1JhQvPFDoAk3JHN9+AsIxKZ7swxs5XcchFFQiOxgQYAeiSpJ4UFowIET6AjUaFOHOB8Ag IDEyN RIlFXFWO4KhVA5+DtNrFC9uxsb8BeceZAVfIoiNGKynGoS3WHDrLQV7CuSoRLCHC7SwPTRnUIHzAIJYN 1MvUD 4+TuNrZQ3leha2HoskZDBhGxmYTRowEfT9BOJyUGFNQ0NvFMMpDOItYb9QBsPwUnX5WXWoEb0HB9KrMz xlPj4 NYJ4cn6SkKyv9YWRgCT1zyvp8FN0ZOMa6LSKlFEDlUWM4NolxJGVTU1RoQSIyEMQbKJDBS2CbGTUgMBi +Pgpl wkWtDweVQSzkIEGou4MfZsu9D0ltEQriPFKqKkR5NXOuBAFTBJ4XSYd2DATpAFNqDRstCSL0IiVfWJBd Uy9UU j4+VrNnDG7mujm0KZLbDAXcOpnJYLsuAuX5HDCgRDDZU6QaKNlbCFTdMa9LKeAsMlV5BBCfRl6WC5NBX j4KZW 4hm4QhJss1IwNlPK8apde5NJ6LXKz5BOPfYOMkXVT0RBPsHJLXO6NgWZSkPMJnGAPZW3RoKKW+Pgplbm RvYmo PTPr6WTJdc2GqTpm0S0drZQF3P2OvCAttOWLtRa5WOkGhWlA1LFMjLf7KN8L+RxfdtjGhVelDMXp2VQO gb2Jq Syt8U2ytHFM4A3EbKTybTUZuKh5BCwSnRdT7VKGsPo0IF7E+AhadztWqCdeDZLm4KHCca9KhHzp7R2bo NDI2L 7GeNFV0CECpWq8LQiNcPlT0IGBaBc0GM4YGRb1DTS5vt6EvAzw4TtUhYQ9zyvn0MG0NZBHqHH3UUTkjK CAwIF IoIJucOZI5SbTxWJZsOk2AER9+MeIpZU0vvhd8DAnlJUOtDboVKIlvHeP5QKvgOEOEJ5RjKWS2XGFjEg 9QZyA kHtX0ZWWaGf4NO5IoQuqmPq4ABG6aj0AsLia2PSAjJI8cllw0EF5XQzp2QTUyAGYbQWooMFEgKvN1MSM gMCBS YKu0QdMzPPMrOAn6JDGcVvS8ASIkTLTRKRm7EiRwYZBuLLa6IQJeHgL9CKclKYWTUAa0ACOxVJQsSLNp IDAgU nA8LUKhEONWQYlpOtSnYLWjMIUrWLIbIuW1ZTQgZRNWFLxsYDMyCOObX1MyMAe5CMPlKk3VIhOqOlI1T DAgUi 9CM8SFq2L0Tg7NDM5ho1PbOur6CAFqKI9sisc6VE2RIBKtOWyxWIDGL4MqXKc6OJLjPd3LGgPlNhR0LJ AgUi9 FI4PGGw8AOR1lm3CmExr1FNFtKZ0jeiy3WD3VWSGrOFSxPRSFA6TwTTd8HEFpDg7EHnStYcC8TGQpZl6 TL1RS Bi8ZBU9av5UrByp2AvPjKZ2djjc3AG9PMtVlDOIqTNNTDBYzXFBaNHMPKQ7NXAf0AVAoSSZlSDtgENU2 NiAwI EEtOe0GXr9+JhCfXG9nxxb9KPVyWRRdNhvSURknF3b6IKftHUFFLOk1JYKdJXWwB9PoNIf8HMQdAq6EU yAxMj W1BYFzFc7RV6DZAx4UBG4eg9ZyNjd0AVMvHZ6pkdd7TA3LJdw2UMUbTYAwMFf0DTJbFi3cOLB6LJepIE BSL1B qSWPeIGGqPMVCX4QaAJG+XriltuZmFimEXAn1ZEDuy9HnZsk4F5bsLUo4EYHdTzL3BPruUUHHVS5YIGv 4OSAw HYPeRQrrTTZ7NqAkNLDbTl6YId3+HePtHM7mxla3DNYlWIKmThqTHXtmH1z0WVGiBXLXDLl5QqOsESPi L1AgO Yu2UWTpYv0FOxElBqE9QGZhIa1MF6YXVb2PFV5nt6AsDio1DtKyOC7kbzw8TE0GSjn6DTNuXPKvEXa1Y DAgUl 0hJTA3ZCplPRKTF9VdLTOyGLPzNVPRW1HbARH+TxytxgEgQnfWXRk0RCCun7HlFwj6R3vjZMb4WCFeOy A5NzU xAHKKAH6ALTe0PNEpHETvIWapEJA8TzLmJQDbRx1GHy8+EePiWP0txfe0JZllSGOfUtbLWRtpQ1k8Nqo gMCBS ACg7GJEcGGPhB4ZrRUc8YJJiEl5GFrTfDvH7BBCwEj5EY2GTZy8OEU7hl0JoFdsqMKItRY2xqqk0HJ0P Wzk2M KGuKRHtDUYgKGAgJz1yAKO4QGooGTYJE7KtPRLpZHLeKJKAE5LiCKY+GymcujKwKmgXGDOyEZRoe1GnQ jw8L0 crYZF1NHQsUgD7UZycCYBTQT8AJHa9FSLqGCGmOUgwWKU9JuEtOUEpNs8ETe3+SuSpAG0nmuz4ECXsSK BvYmo TPTuuV9v8XCYpNKRNTRu9GMFsKDOrU4GxDCf6WUInTs4YHaGoNmG6SEEyAl7BE0JSMu4UIS7po6JtHxq wMyAw DD2chyy0FB9ZByx4BBDuRVMeMQMzNOByAu2aTSS0MVihWMNFP0EqCFItGFReOQCCP8FqJPC+PgplbmRv YmoKO KZ9ZSTsb5BnJqq5A6vrHNI2WXLoGl7HWFm2TGBjFPTnSHyqYKR4CtVbQIFkPq4IYw1+SqZlXY7uxkp2Z DUgMC BeTmnCHGwhPmR4SBKmQWJWF4ImSFc7BVMlBo0PJvJwNbH4GKEfUh3OX9WIAx5RPG7jr3RxSfbmUqRwOC 9iago 2QZ2BBZefUkTcEAJmIKG1CUPxLSPAA0XnXSEeIAKcIIZFC9XtCJX+CivfglWvFryNWVS4XYKml7EbAnx 8L0sg ETM7NXTgPo0YLXetCbUwPKZfQCsxTCR2VvHiBNXjWo8IBCSrXG8+XvQaEY8clfl3HEyuDPYkLluYWMwt S1s5M ZqfCDIWIDelJQOvOZSvBQYmCEIeWvK9GGWfMGFNWKfoYpYcZNPjOUT6IJQaFpQ3WTMsUISCSIdlFgHtF FJdL1 HuCJQ3GXJwEb0QApLbEqM9XFCfIo5SJ4JYe7K8Tu5YAB7bk4XhAxjqWEFlZD4ffgf2LO1TGFr6KhFlJC IvUCA 8NQozKSNXY5KhHIDyNNCuCHQBL5YmNXV+ZgcewkLeXjuWORVpHMNfy8FcMrb4U4zrEIZ6MYVgRh5RIBv wOCAw JUIgBSftSDS5AdKhPMYlEr8KJz8+HjRtMG3enqr2UWMiCTEyQkhOOZvnZbO1IYZmWYPVQ6XrAAY5JWGe Ui9QZ hJhFbU9ANRvYq8ZF7KDNu0PWY7hc9BhKsetTmHtKL3phic3TJ4RUuwpNPIaHGFoNIR9DVYoMqU7JACgV CBSXS 7JGCcmAUKxGAAiDRhjKZC2ImRoSMZvMz4GVu5+YnAiGV6lpvt8LPQoFEBsUfpJTWqrJ5v0MeKkGBRQBX kzMyA pGMFjZAI9FEZjCc8nJTM6FXtpVQDSY5MyWPRgUYFmSVUEJ4SmFGF+ShxxuySkQjaGLEL8QFGui8LkUcr 8L0tb NNX3KIByEzA4CcqzPKXXDV5RGLnuCVJyKRWvUCqnSRT2SjXtAQDnEx5VZa9+NeJaHP2pvag0LDYdGFTu YmoKP HzsU7h4CgHmDRPFAElcYlGlOYPuCLP6XVIjNs7rSZJ5SCstFXKBU0OlEUTcBAOyBJMLV6WeATI+Pgplb mRvYm kOKPP9CCLxt1RiNjj7Y3wqAOO8RYVmWbI3NMqoJFOFQUsqQBZmIQCgP9WqBBQ0ODItOk2NLyUjSeR5CA AgUi9 BK1ZDXz4BBO9fr8WsKcuuFxJwKS1ybte4IG9GTTfwUHAbDZGpIGD3PZSqWQEOI9ZaNOTmYHKuXOAUO4C vVEQ+ LoejioSrGciEEVR9KAIfg1CmScw8R4qbJPWmMHOgFw8PHInxAyOgPTUgKNcrOTW9KlLuHYTjEw7LIK7+ CmVuZ R4xsxj0DEbhJRWsWfgFOKeuLER0FNSdCUPOK1MtYCX+YrtfrsJkTnaYKUTcVFWck3YxTii7T1gbOGL3O 1AgOT W4SHOtJw1HFcRwJaQ0YQPmSa7IB7P+HmmmveAqEzwFJMDcBDMom7TjLlq6X9vzFII4Q5EsXRC6INVaGl 9QZyA tGmP0QTIdUr6OQ2Q+GpjwneCrIlxEFEYpZCUfo3WvEpm3I0opOVX4EJCyZh2CEIivSMDoXUZmVNltHWJ 0NiAw WQRfDk3ZJL6+FiCcNB4gvox5KiIyINGrLeqWIJzsJvA8StYuOUSBX3HrBJX8DCRyTq7UVlKiIhV7HSBf Ui9TL 7RQZq0RFV2oz1DcFewgWYFfVS3epbm6HP9HVWbmFGAmNWVkKZE0ZZFoLNEPP8OpNCTkNIQfOOJUH9LcN EQ+Pg ynroYeUpsOXZI4LXSnq1ZuVrp8E0egUSU5L0WoBQM9UQOoHd4QBxLvQrR7KMXxTz1IT5Z+PgplbmRvYm oKOTI 8YXBwz4FvHnc1W0nvUYVnJ4MtSJYiJISsYu8VLkCiBdE0APYbYb0NJ3O+PnaplpUkHunYGHD1OPHsc7K qCjw8 Z3ixVAZyL3TvHIXpLBNuMc1KIiCfYcD2CPIoOe6XU2F+HpnpmcSlLrxJLFR3NWIsw3HoByo5U5loMDAh IDAgU v4UFGfdCHPeCSJbMMntKKY8UjCwOWUgYx2BXX0+LhKwAP3kotq1CqpnBPXmLrrUZZjiMzI6QtWgXEAFF 1AgOT Q8NTLuCh5BQgXqFfE2URLxOi7GC1WTHp9NNN8by7VkUoybSFZdQJ7hmqb5BT6AGTIiSk5UTKmfRTNzRP IvUGc yXIQ2YqWtFWUtYi4QRo1OXV5uh8FwFqfvEOGwQK8frnn1UL8MFKBwZZ7AIOlaVUQhYGBoBKogJKP5MpL wIFIv Yt2VRw7XXE9wb5SjEmpyQpTpSQ2qrpu5TL5GNWbjCzWmWNWrRNP3AIFmCLQBX3PkEPCrMEXcXQGJK2Ih VEQ+P tcsfxQhIaeVGFKtYHApz1TzVks5Z9uyWXI2EYBjVr5PTDtwNtCoVMKeAIusGDI8YiIxCPWdYi1ARE9+C mVuZG 6picy1XjEhQIXsFfsARKlkInE9MqXyAMXAZ0VpIEMaYUGpOr5YKqSyHeJ1EGYiFt3TJ9KREr1FLO1yr8 JqCjk xPSPjHB4gxzd6QW0KMNRtLm7SNMcmDJAgEXIcQAlsZOB4UtYwAHCwFi5TFl5QUK3mb9YhZojaCzJuRX4 iago8 YM0SKWAcCK0FRFxuExHsUYHxQTubVRD7MlFcGZXaLg1FBt8OKQ9bg5RmStheMaRlGS2exwb7EP4IHSU8 OC9QI DxkRgHtDEJkSGxcHGJ2UvNwTAEgRw7HEy4SFA3gt0QiWutaIEQjWQ6oxju2LN9LYXf9DiGjYWEkEUK5H TIgMC SFX9SnJGNnYTLbETJJH5AcQVW+QnejpwJoKqrVXBC5IUMkl2FtKus2G5vrWUWdSHUrAz8LRJgnUfHuUZ IvUGc wGSF0PiGyKJXxRs9ZUM9+LjCzRR3aloa8URPpHUNxTabDZQpdSsQ1CCWdAASPA0VkNSNzFYDqSa8NFxJ xMjQ2 XCAfHq1NK3ONSp4HLB9az6JdPie1PXJmIY0eswg1CV1YCKU0FS8IZUz8WDHtIUBvMJqyONA8XpWlNWXu Uy9QP d5RUS3tz4HuJef5FqOrAF6arff0AP4YDUI0Lx9WVPbxWWNdLZCsNXlnGOI6CuWmYVCwYl4YGc6OPH4dv 2JqCj q5GnSsSD8lfie1PV1TXNZ8KC7ENRtjSFSkOJQgEMxpEIV9YjBiPXOrDq0UOk6VZH2ie0WqLee6BOFwYM 9iago 6ZK7AKHviEDZeBITwYp5GXC6+NaPqCH8mfij4LAJkAUZvGvcTCTorIVK9MJBdEJQRO4DlTUU+PgplbmR vYmoK BMW0SUSvb5BaVca7T8ZoRMK2HDOxVa6CI7VULo0DFV3lv5EmGeh5GgDoMR6voab4EM8DNLz7MNKmAOAe UCA5M TRyISSJF3JzJIFfBNJwOIINI2ZxCZQ+ZugnoqLwWhrORMW4ABTzc2LzXiq3M3duBzz6F8YbXWV3MIKjX i9QZy XlCxI1VWOvVn9CS7T+BaaixtUlKxrVKSJ1HSVzu9WqUed6M2niYAKgHYVbIj2GDCsyAfOcBNZnALeuZA I0NiA oVLUpRu3WKV3+SrIoJC9wcsb5IKJtVVBoBmuOIDcgDuM2BCBtMBMND3RlYCAkWCAvAg0OYbUyJnE8VUC gUi9T F3ZATz1HAK6ta2YwGfn2YLNfLN8fzlm8KS3AYEZ1PB8EQBu5OIYkMZHePRkhBMK5KuOqHBSxWa2TBc7O ZW5kb 8ItOhk8GyXyZA5rncq9NY3QXFB5Iv8EXKg0TRRuTZAiNEowMVV7SsKxJMWaIy4KGh9FZV2wv6HrMkj1R yAwIG 9ciog3VF8RJAb3BvCsWNMfLVN5RMEaEXEAK3DfEOIvLPToCHFGL0QpBNZ+QgnyhhRzRhrKSVM4JOFhb4 JqCjw 8M4toZSR2NCBpPy9FBNanPoNxTGOkGYzvUPQ6NrYwOFMxIe4DTZ5+DbAeTA1eucx8WZKpAFNjRplLYAn vSyAz YqvwRHS8FHLpXUMYU6MnAMLwOYUvUVXON9XzTJ0+BsTcRD6tmiy2PHKuPASyMkyJMMzrNoTyZrqaKMU9 NTMgM EJBX9FyLCBmSDSdIKQPH3PoJR4+QrZkGL7mbhs6FJwySHOzOagJYKxkRsF6LEcoOLREK0RtZNMdJYCqJ i9QZy LaByZ8MBXiEl5VI9QXPo9JFG4yd2XgPli7TQMgPD6xarl6ZG9KZEdbYKRlYUWcJr2IHO2+AyZuDP6ded o5NTk rNUXpRznBAIceVwQzBmAjDNU0FVhqUTYPH2DmMCIqTLYaRPWSM6LgRJ3+MxWjYL4jfsl3PzHnHMLxKzc KPDwv BvL2WpxiQDGKQ3PwGNLtYHOnAo3UGiTpTrA6OZZsEp5CT7ILTo0WCB9fr8YrNbo0HQIfIZ2xebn1MU3G Wzk2M uWlFLLqVQKjOVAoNsA3VsSdDHFAMYw5SWLcYKPoHYA1EJLmSd3oMAA9FZDbYTEYG8DtPDOqCPDmQUSBW 1MvVE Q+ZhkmqlLmYjsWMWBpGKCnw2OdUnh3O0gfVcGkK3RiTQLcTSWhLp2KMpZqImN8LUDlMo4GL3W+Pgplbm RvYmo GDSRcGWDnr2SlSpy7C8jjNeC0S6TeSXKzCFMmVh8DGsJkJdV4IDBfZe4RH0F+GlzumpMiGiiCRAC1WQU gb2Jq Kqg0V8uaVmB6R9PkCBOyYLDnOg7RSoHsQaC8WKSaPf0ZM6K+CbeymeZwYwaLQFV7VCQdb3AtPwe7X1hn MzU4L 6EfJTJqNIJiRs8BQuUuSqY1BKRlVr2AE4M+KbzzjoTbMtpWMLV2ZSSkr2FaVxz9S7dwClX7V9MlWALzU DAgUi 9EZaBlFzJ1LCYcYr8WV0J+HrdzfvKpOokMCZB9ZVBtv2DzKgj3L1baFzOrI1GvIHRzQOPcKt8FIrKzDc Q2IDA bZc5OH3X+HgrmveLyEeiRGQI1KBCyd5YsRml5Q5bpUGrfBEVnMh9NQMf5LZZiGTRaTGzzQTG4QxMoHGR vUy9U RD4+ZnSuEU9qdws4IzcgUADeQxgKSHyqS4g1IjBrIYPGJWl4AJVuIXGhBWeaLNLlZr3yIJW7JLoaHCRR L1BnI OJeYEPpDMRON6CdXIN+QcdkyjAeAamEGDdgQFQev2ZrWhq6R4daMsV8W2FsYKO8RWCdJq1QDqNfLvE8B DAgUi 9TL1A+RwvoxzWaVsxPETvoNBSif7ZfSih9F1vxBtW3H2VeSPN0JHIgFz1GMeEtPiX8HPVvVo5SX6B+Pg plbmR pFmoFRMhxYTZlp8RzPfw6A5xoZiC2D1BlXPQ2KMQvSq4DReYbJaC2PIXhLe6HK5Y+PgplbmRvYmoKOTc zIDAg k0XpTma0Q0zdFuVyR7FiNUM6EJRtCd4BWhOmVfK6TIKwWc3OH4U+GserrvMlEseTEJy2JVSnv6MyEhv6 L0sgO Nq9ZBAzNt3MEYg0LWZbHKPlWPeeEOO1AzPzVDNbHq7YSH6+SdCvNP8opsa2AdXtRESyGbsSUCnzHzP4E zYgMC NTA1SuIQm3FSNfOb3TCeMhLyU7INZuOz8JI4DOVr3TSV2ou7KpTqh4RhQkLG1hbox3OT4PFWHpYJ4BTA k3NSA jHXIlUKycHDH1FcNzOVOwSu7FMk7CNI9ot4ZvVqd5WiHsRO1klfp6GG5BIDTkBh1CBBr5LAOsNXPbCGo gMTI0 ElIfMGAzSr3IAl6PVK4dd8ElJbv9YDThMR6uqgn6KI7YATu8BHEkUKVmWNT0MYbsQMADV8TjUGLeOAQn MCBSL 1MvVEQ+IegrwhFqVssTRUe1WGQip4FvCdu9W7maEOpvBXGqTm1NYIi1FrNuCPDbMEvaOXB6BfPtMBHcH y9URD 4+VmSmST2oyuf4ISBvFVMoHhqYVKzxBaRcXyCqFEX1UmhuGGSEK6XpZWZzGBLlLUKFM8DrRR7+CmVuZG 9iago 5JFLhEXJdKllWVQdhHqIeVdQiXAN6GbcpKNPRN0NbXHHaMIRdLRNRW8JfHW6+GdGdBW2elci6LDFlVQJ vYmoK OLejXkP6JLJpPBHOF2QbRQe3CPQuOk0FKqRqKsD6JHYfNn0EH4PZKu6JHH1lx2TyPtv9AkBuLZ2fvsp2 PC9LI Li2KHAnTEQlAVX5OJLkMKHDR7OpHFZjMUSuLWPTU2SdMXK+OgrixhUbPxhIOKt8CMNmg9XqKou0D4upS zI4L1 InVIteCLMpUi2NQoPqOeN9PDSoVa8PG2O+EggfmfPyIibQZKn6CRUca9EuHup3N3bzWkA3Z5DoCEefTH AgUi9 FGgEpGsO8YHLgKv5KC5U+MkhipaTeAbpFHBw2VPRea9ZpNty1V6omSGhgASHmTb5UWOn8VLMmJQEbHAr gMTI0 EkDaHENmYw0CVL7+JqBwEW5rmtv4KVlzOINsBshLYJntP3e0MIppPFCUGFd7TDFaPVWaYSyuIXQcXgY3 OTEgM OPILOf7RlKvWSVdW2SgUYa3WXBzWd8JHgZiMoS8MPBbQq0EN8WQHm4PJF1br0DnPwp5KARlTW9tdzn8J C9LID RzUc6BSZw6ZbGkVSWgVTfrVTZ8DuFzCQOmBf6GXv7ASN9wu5OzIua0GZSoIK5itth6BT8ONSEuHQ2JCM k4NyA tORPtVLsyQPR4CqXnLMHoPp0NEk5VOU0rd9DgFiy3ZTIhOX5ivbl2DB3MAOHuSR1SEDi4DxMpTJHdWKl gMTI0 JmQtLXPxWw7BSv0RCW3np9DoQfi4KQTwWG5hdyq9AE6LOMGbYw2TAPi2CwQyMXJwEGnsTQH3NtQgDXNg Uy9QP d3IRG2kg8XcVwh4AgRbOW1wsdm9RG9JNQQgPo4UWAo1SbDpAQMxRZqzWSV6HhRlMGXoFk6CSr2KYI9kl 2JqCj a2IbMnBI3solg4OX6BFCMuRD9NELs0UdZsHYNbNQnrMAL6CyMhADChOm3AWu4QCL2ih3QqOtt5NSMvTY 9iago 0TW1RKBf0FqHdOAEhMUF6PPReVIFZC6SzAWPkCFLfGUHLP9FhWEA+VmjdtiPcEqxJURi5RARhp9MuKes 8L0sg MNi9SRMaGk9BASs3ACHxUOSuZJzhAOD9OuBjBNHjAt9XMC4+XyAyXG2jxef1RHBzOHRaWbvZASchZnUl MTIvU CN4LBFnCKBFN8ZqEIRgJKFjRZVYD5XiAG1+PePaXO0fbzf5LLbnHGUrOobIBLltUaIwVSNrDQQ9USUvC CBSL1 NuXXHtCLEmCWICL5RsTJ5+NdZsZI8rmdv6FNzaUIWyEjdGZAwfAfRdCXXtHSIeRv7YQGm7NrTcICEoHV cgMTI 3FpRcLBRsFl5MHQ3+JlRjWJ0efmh7YCbcHPLcWfaQJBeoVwOsVRYgWFRoAl9VHIz7ZoWrBJByHUiqBXD 0NiAw HSBbRt9JJB5+OlAmAA8lsqdeSJQzOCIcu8BsQer1I9fwUcQ1A4QzQNy1IZPkPz0NFuHuUvG0CLJcAt4C L1A+P rlsykRbHetUFZWbCMVyEM2uest5HZ9SVRYqEY5RIZz8TKEjRPQyVOqcYOI8FyXkGBZoXn3HWh7IPM1du 2JqCj DiXVPtEGLxHfjHUUcwOlKhGTR1GVXuXk6ANMb1OyBxRCSnLInyPOR1OjNtQQFcDj5HHO9+QhDrCJ5tfi oxMDA oJWDeg0KlYqr5Q3fbFOVsOECrNVGeSDN7EGUeTHXZT1PqYJSrLTKrZUCBC5QfNLU+PgplbmRvYmoKMTA wNCAw CG4ajkh6UM3YPSQdZh3NRUAdTHKdDSBCJ4EdWEWeTRIkRNUXE9EeBJ7+AtYtKZ6xqgawXCE6VQIno3Vq Cjw8L 8keNcIrE3IsFLJzHuIgETNdCMnpJGK4MrQyNCQtOh4TQn2TEI3gl0SmWlDrOQOfBFJlEpxKUXsiWQX4P TEgMC OUE6GzPQZ+BdzdwuBbCajVWAVgQqMgFQ8hqom9OE8DXVz2CJUhOPXrKx8FRQ0+FvFfTB3aylpqAMU5CX Agb2J mQpu2C4mnWSYoLCTtXIQyWON8HlFmEXWuHWklKEC2YaRnIWDyOo4CMx6odJ5+MrAsUV1amywwCOW2VTF gb2Jq Gnx6Q7caVCVyFZAbHNNhLOFjVFC4RHNtKb8SMhYiBnF7IEVzBi0PW4DLMz6FEZ0tv4QtOxRyZVRyIFMj YmoKP ImeWhDcDOCnESVaAu0HRARqUKplPKMCE1NlFNFqIBIzBPGKK9DaJKR+CpyeorYrSuiWTSRfGIRiFS7zm go8PC 4BRMUwFKNaLBTWZ4KoGZIiTXNgWTEcMAkcWXA4SjJfPJNiWy7YHTOtPU1+PuHtAZ0cuypgOUNvJANua6 JqCjw 2Q2guGPKgMeZjMKRxCIEbRASfLJWrEQEhTMVwPEHnOOAyTkIcVOJhJ0CuBZQoPMPfOBBtVGgbDCG7QyT wIFIv Qr3XRq3sjG0+HzTuIV5njbteCJEzVJQas8WcArd9C9ttRBVnWQMtFUGbIJElGFIbXXEtA0TaNTKdDsNk IFIvU MpkNVG0PcEnKJSqCl5QHe3+BmFaMX5szqjmQAW1PXHxg1HfZqp5T5mcJOV6TJElJROmZBO1DtXpABEuK 1AgMT IpOmVrXRQbKRzeUMS8XmXmOSPpCx5OBj9+KlCrVA5fkaybGCE6STFug9DrUvx2U6ceGKR9FbXrRDNdSK AxMDE qDIPzPe7EFxTnTcP4MHJdSx6SY5USDx0XLB8ab1WrIzGkSUMjTYPmWdvJUTrkR0mdCYB6PQBjUvXaCYO 4IDAg Dq2mMELzHDVmCWUjMo4BSzHwPlL8FKWgCk3PG4ZHCu7XFE8bq5CnRaUcKZyxTFRiCkaCHFpxNjGfQHP1 IDAgU f5VCACaZGUoLMKVS4YcPQNhIRBjCOYFV1MmSUJ+IznbhpFdHnkFCLPdDEIhVM5tsay4OW7PLVMuNAhwQ CBSL1 KzDVTnQuXhPQPrBKdlPKP7OtIrUEIkNw2ICA7+QxYgEI1gninzSJZ4EKZfg5VlOle6K5zoNFPbHWQxAV IvUCA dJMQ7UZSlVk7HWwYtHfW5PYIlFv6WR9QoDkqwIj4STX7do6GqPmEmDlViUZYbRpmZOVmqA9jmACIlOXQ gUiAx RKKgRQZtPc9gAWQxCGI6RLYaNe1KChMvTwY1QNVbXo1XG6LRf4S0Hv2QPC5ot8ZxNgHiVgZgLHLcXwdH PDwvS 1rnASK9MSJmYpIfHPK7EOVnWy1dRLWyWCXtUMRfQq7NKoTzZyQ2KFVkWm3II5UXLu8KWQ2ng3CzEuTtM jIgMC IaNmfALJpnW5paCRSwSVGjWzZaLIL2ELTjHi3eEUOcUJHzCQOuUa4TJaXjYcR5FWEgJy7MJ4JGPx4GRA 5kb2J cIxOkTdOjUKIuHbnGCOjcXjGkMDV1RXQfIx4QMMLyIcDeYUDUB5OoCKFrRUZsGMPLG9FtMBO+PgplbmR vYmoK YMIuWBLtWR7efeu9NT0UJZWvNxHuDYYQK9FqIAMrOsXsKQOrOIsvNUV1YxQqKHQlUp0LAB5+UpPqMU5n agoxM WX3NXXpp4CcSql5J4ngEyy1X3PeNRJfLYQyLSBdMGyxZFK4UyGoBJRbCz2YTm1KFW7nd6TmInDrHnTtF CBvYm pPVWfuMqYcQBRqBXXsPKXyDLXfXq6QCzBoCrS7YQOdGw3TZ8U+CfxtjiSyZdaNJSAyOyTiRM7sesg2YY 9LIDE uRgChMSYFP7ZnIZAtZTAgUQFkDZtrLPA2PxYmKGFjGf3JWN6+FxBiEQ5ixxrvERZ6WYUsg5DjQbq8N9i bMTAy OSAwIFIgMTAzMCAwIFIgMTAzMSAwIFIgMTAzMiAwIFIgMTAzMyAwIFIgMTAzNCAwIFIgMTAzNSAwIFJd L1AgM FPqWGUeMCLiHLvxHCS2QaGhJNDdFt0EYE5+YwBfVV2qmkrfVMX0NCEmv1ByVyq0B9hkHmzvX5DxKWHzF CAwIF GcYNqrWMJ4SwHqMKMpPm0TOa5NCJ5un6PuFwWbYiCdNLOaWjsYRLbbI8zuDfGcYgxgOL7MDUJqXfpzMX BSL1B yAJCiMICaHYWRM2XkBX1+OqJcBJ2roiyxGVGxHXPvc0FeZis7G5clCoe2C8MxUEOlPAVoVWEcVGakIMN 0NiAw RVXmGm8SZp2ZXJ3ce0ZdQoCoElCeTKJkAgiPNQcePjYmGiVsICHuRMF4IEPyZw3AUqEnNsJ9BZEgMl1O L1A+P gnbrxMgIdtCEMHdVpNwIC2qlzc3MM8FCAJ1Dq1MNAXxBuvpHTGPQ8RpOYGuEMNoZYLVV3GiMV4+CmVuZ G9iag xyUIL7EULjl0GjEoi7Q2fvWot4D3NbGKBsATFoUBGgXQkjBYS9YmKfKOOfBl4TNy2OCG1qd7NmQuQhPl UgMCB lDeoJZWosRaMpWnqzZLPfFXQ2ANMyTq7GDfWmBfY6WHFuHz7UI6O+JrvheoRsLdjJKFMjEfEwUT7kkbo 8PC9L ArR8MmPyAgtlQ4RtYHCrFhZmFNNmAQtqJSI8XpBmRDIhYs4HJp8QDN0db0QfXtHiPhidFCYvHjaCIRrf SyAxM AP6FSIjJn5JSTHpBXzjBHGIW9GrOLVgCSNoNPIPI8TbJFLebLK+QcisuuRiEjuUOUPnXCDnGN7ykgt9L C9LWz DpGphoZQDWNDLzQFOuTYCVSW1WUTOvXgxjEUHSN9FqYFGiNFLcJOUER1DfURMgNKn+PgplbmRvYmoKMT AzOSA vOR7nleg6IM2CEyKoURMnNOCCPFAcWUWmDTUKGB7CNFZkHgruKGMEC9FrSBTfNSDyZAFHF9TtSXC+Pgp lbmRv LlwBFSJ3NDNhHG6uytd0EG7MIoZbLDTpCMOCBTBtTSSjPJYPHJ8IGJLyIilzRBQYB2GeOOXeXURnDURL L1MvV FI+OerbfrBoIruRJNA5KMGiFI0ritl2UY6KCJMhJDFpIWKGY5VeADD4LZQuJMBnDCctZGM9YbOfGZPgW y9URD 4+GxLeLP4iardaSUWhDODce2DbIoa2I0ieWOL6MmBhJLWaPOHqLHCsUNQxMa4YUxHeWdL7OROrOh0MA4 REPj4 JDX6qn7HnQqWeNDWiWNMxEjaLROhyJoDzGCpoWQUbWMEcPKShSb5PLuVpBoJ1WWNjGk4BS0O+PgplbmR vYmoK PUS3FKMwIL9nfmp7AK4GLTA7Fw1DELAnWGAmLEFLQ1KhBIYoLCYjOYUHR6LcRM0+VmQuKT8cujsiJQT6 IDAgb 1QmMfa1K5jwOHH9TzCwHRQcVPBdOVY9QZWxEe3UIwBvKuA3GVBjRk4DK7XDPh4RZL4og6McAqHdLGHrL CBvYm zUGWlrN3rmPMM3WKWuTxRcNCE1AHWmHcHvVEE3ESDpPoYmMCOnMHWbKhYpSLQuBMEaTr0xSSPhYRI1UX AgUi9 OScUgIlD5CWXpOq7BL5NYGy8JAB4pu4UkXdDpNPpzHZRiRopMEZvuFmMpRKauHQDdQYI7WPLfCk1PMpA xMjQ2 LRWnRr8GW4J+PuzyceWlTsnPCWP3DMYmFC8syab5GL8YYER5KI0WSPPuRMRkUZEAG1DkKVFaLJFtHZCT L1MvU D4+LkYfZA8vwlnyRAY7ODXzp2OuHkz6Q0xfIaAdA2HeOPY1SuYbYIJeGIeeKGB7MqVnHKBaLw9YXm1RQ W5kb2 BhXoXhTVYzILVmVaaPWFohZtEgQWOfBLQvADD0ZNOxWm9NWiHdWaJ0XSBuEe7LZ9K+PgplbmRvYmoKMT A1MSA rON9edhe2UT6LEIW4Hi4LVEIaGFAlPLHRV6UbXJUoHROyRRGCE1ZbFT9+BkByXP6baeraVYKqSTCma5D qCjw8 V4omSaK4S8CxBAF3MKLgZPGfKFyxQOS6EqXeDTKqYp1SQt2ABB6hc9UhBmLiKTYbXXZnYmmTXFumYfRd MDU0I SBmAa9YUKIuNBMoFIKWH2WvLFWzIDSmQKRPO8UgJUT+ZdindxGkMveMBDZ4QWBwQV6jphv3FS3TEBBzN S9QID JnCGIeZUGXY0PyHPFqLXViSSVWF3RuEC2+NfSjYU5ttrpvGGU9OBOyz4HnMrx8F2skOZTzLlXtEXOuJM AxMDE 9DZQhGf1HAzRsHoU3GITjZb3QP3YCQs3HKG6qu4YnZvEtYODuXQFuBktCPZhmSqErZRG8ZMJwNa7ZLEG wMTQg ZTCEN3XbBIKjAGXqBALRT9JxBMG+SbmdjnBgUquSDKH4GsMuWZ3ymsx6WB9DGADsLMjoEEWII5QnXDU4 NiAwI NPcQJnbYUD0BcJlTOUlXk1TJMMiML6+MtWqGW4faigfWCK6MAYkm5TjAmy2K9bjYPZ7QRElQJVaVRV9Y CAwIF QqDUK2APRlJOCwTSG7OiZbKKLpQME2QsGjGNUpVEL3DOKxJBQxHFA7NGBbTGTzANV4ZyAgZQDkDYG0Vz AwIFI lFJE8KVMfTKGfAJN9JVKzUJBuOJB1VZPfEVVyZLQ7NAPcVROvE7KwING3ItOcYOEkSVuqLOS2XmKnYEY vUy9U Ap2uyG3+XuDhSX9lozdhKDY4TTGmc1UfApo9G3bsFZSzUbYkYGZbZNBgVSPiMWHoW2LvAAG7QQXiPEWu UGcgM BN7CaWfGHEjOc1KLw8+FdYeMV1daoxpHNTnGVFkd9VmXci5B4ljMQRqHOMqMKXbNEToFRTiBKKbP0BlV TA1OC NsSOOyAEgkYWU8GaBrROEvPw5RDl7+HqXeDA7utqtvICNgIURgt7JkBhv4J3bpGVMrIrOeYIInJGMaYR AwIFJ hA2LbKNR7KHClNUQvHJosXOS2QbVfEHBvJy2JHa2+GoViXA1eiwvvUEXnRZWud1BoWdn5U4xkMJHjJDF wIFIg YVDkEVVrEHMcC2EoARL3MQArCPSbHUglJSW9GaOnAIEzCy4WBb2+JyMfQE9zawmsRLIkGSVfz1HcDah1 L0tbM KKxZfSiCBNsKJTjWqKuQAZhP4BwDMY2VCCjFMRcBZgoVLC7UqYkDCThNm1CZt4+PzWkSU4yeoyzSGO1M DAgb2 DbUfe8Y2odNWXlFFCxIWDjSVLsDPY4ZXHzRi4HRzYyQgU4ZKNvQl9WZ5GOLm3LBG7kc4PzXdIyIwIvKX BvYmo MYKugL2dvFRf3CTVeNwEdJYb0YUOrCi9xFFYdMBT2WLIzAs2OAyYmYwR3FMRrLf6NL7NHYs6EJJ6qm9L qCjEw AdLhZLLgYbdLZDdfT5zoHZakULWqIdSaSIomBPWkRh8mMEOtZQM1WYYbHr3CVdGySvS3YEYuKo5ZX7XV Pj4KZ A2fi9WyHcLlVqxvSXMhYkzQDZppH8fdOEc4TBVrUsMvWEv1VZEvVo3tDQElKMM4RNQxLo7NWePxTtJ5B DAgUi 3MT7AVMf7TGH1uv5YjVcWnGolrKCXfVaqTIIegJ3otSVn3OKMoKiLmLDj0EWDvYv6hWQEsKXV0XEKnPv 9QZyA kIzT6WZCiId7AS0MAOb3COV6io1NsOrOfYrrjZKWiZmjGYGlfJ8uzITnkPGOeIyOvJXizJPViGy5rXDY xMDU4 RTJeIa9KWcEpUmR0YKBuOf9JP9KIRp4JEC9ed2WdNpHqWeEhNXHdZhwCIHuxW8sxHBx1PUCqLlHrDKx1 IDAgU t0kZDErYLZ7ZSNvDq4ZMoFuUsJ6KTDwGp1LG3SFAp1LJJ4hb8SaPxCbOhYiBQXyGrlYNCxwT5goLDvjL DAgUi GmJKquNQEzXl9tXHTdZUS9HLLbIg2DNzQgDrD9EDYbGq4JG9MYZt4IXO6en3GwMtSnJwZrADYfKyyIHQ wvSyA zPXe3KXHsOm3FOFYkJqNcQRBYL9ByVDAbNIInGLPUT0MvDFH+HnpmplBsKdtPBUV4XqXiHX6kwyl0RS4 LIDEw NzSlQMUOY3BsSUC8GGCoDPQpJRxjBCZ9TxOcTTCdRo1NAQ4+VeZoAP0nabnnGHf4VZMtj6NxLsk8G7mh MjM2L 7YsPIH7IgVbPOJfNUfmQFZ7YkQxRCPwWt4IDz0DWQ2hr7HqDhAxJdEaIRMpDbqFTRhgMyHzMaSrHESbR DcyID LwPf1XVqNiKlJ3VCCmZc5EB2H+VqcuxwQoHpjKGUB1VtOeUT8pjeq5ZB2KQXKsPfxsRHOPW3HdTRS0MK AwIFI lPTckPLL3BkHbEVYtDg2BVC7+MlZmGQ8msefyTSa2YQDqp3QlVqt9X9kpYZN1XJMfJOUcQYQuBOtcKHB gUi9Q UrHeMfQ1GWUjFo5KM9IAMd1EDZ0ia2IwIhDeFlxlBRCgJgsSIDnrX4ptYukdIzZtQE8WGBHgEvkyVGTI L1BnI VWhYSHrYSQMB5HlFN5+YsCeXZ7naqttIBs0ZEPuh4WsZwg9E3eeOxP7C2HsOGQ7IaNrBWToORsjWCN3U iAwIF HgKv0HIj3KCB1mz3ByWoFvRTSfLOZhYugDQBjnMbTyENzxNCKcDe6CCKOkQxgyUESBI5LjMMMkGXSaGH BSL1M vVEQ+JogwlzOaPljIKIM3UMApYN4nbeg5UK3QMTSxYMKsYTQCM8SiSZT8BHGpBVOrKEmuFYO4JyJiULZ vUy9U RD4+LkEzRU0htejcUVomDVAjp6PoDgj7D7ioCnUaYVPlIP8wTQThYHpnHHGmXq3AAwAgXhT6ZUUnKa3Y L1A+P mrrbsZbWniDXOV7JzOvKZ0nhtl7OX6MASItBX5WGWAuJBGgFDQKL1KjXVCbYWFnOZKAU2UfSB7+CmVuZ G9iag jiMUw8PIDyh2GeRec8X9amTIO6ErJiDKKsLYVoXUJ3KMNaSd6UQzOvZhN0PWYeAp5FE3ZUUo4XPJ7xo6 JqCjE nLQMjLYNaSryCLLaxPbEcNSo6MRUgHj0LCDByCmidBVCFD8NxZGTiUNAfARUJD0NbFNG+PgplbmRvYmo KMTA4 CpVyGQ2wzqj2PB1FHSNsAQ2BICZhTRZlCVCEI1XaSDInCYPzFXZCH0NlGS7+HoFoOI5gcprvFGa9VSRo b2JqC ol0M8swWwL6F5VdGPP9QHVdITQcELhhJBK0EdRqGLQsPf5GYr8BDG9gf3YaEeJhEWupCZGyMstCWVzwG yAxMD jlNXIhVp4YFDXmAzdnGPKRV9WnELZhSEOtGYEZX0EzMRC+MhoxdyTySlvJODO5PEEqSV1uysc5NU7RVG EwOTA lQZHTY5DfRXL3KoUpITIxFJpmBBN7XcEpKWDuUc6GQN6+JcIiIY6upiusERugZEVnd8XqWve4A4ygGdJ yL1Ag TOX0ICWeVJZqOPrhPZO0KzYeBXAaSl0FKz6OMB2kw9SqScHwWDZdPSZuKkrWUXxtBoNbWAFsNASgNWs2 IDAgU m1EWzGoYnG7JLVsRk2UI0M+DfojqmSkCaeOFIJ3DoUpOX3mvif8QC0LAPXzGQXqOLGZA8PcQFE7NhHvG FIvUG nzOIE1MwHxTJTqLv4TIE1+GwKkWI1samteKGryFRCye0XnEzz7V7bkGQU4XPBgDEDhEDKuQTG3IQReIx 9QZyA qFxU3OCNoIw1EB1ICCb9KJS4ns9LeYhEsXTUdYOUqIobKJNoqA1oyPNJyVeV5TR0HXIKwNEJoRTBLI4C nIDEy ANVgLJLNE7VgTK8+JgTfVK3fmebqKWr4VJNeo6JpPqv6O2ayWkD4K0VdTYD7CiLtQAXbBXxjKYW4AoHp IFIvU m7ADy9TLW3mx1CqQfCrDYZeQKQvNrxLSMezOcSkJAz5UOQbVu5TZDNcTzVrCDSBZ9BqDJIuXKKiVIKGE 1MvVE Q+WdcvdxSdXrmXFTU8YlHyGC3dqmz9ZA7XRHJjPWskVUXCL6NuFLU1NLYeKWYnPUmbLMQ9SgOjRZCcTm 9URD4 +RqGaBM0ccsttKVg3VARkv8NjWzo3Q5zaTiNoK7PaBOK2EhUyBGDpCLoxPWD4JdAyHYMfJp9ECx0KCW1 kb2Jq GkKqNTshONAwNfaTMJrkHvArILsnJKLqBXy3VYEyYs6KWmCvCuN0EBEwUw2KF5C+PgplbmRvYmoKMTEw MCAwI F3wmzj4UX6CHSFiDXNmVWSBW8ZxDYY8LJVyYMZxWRbaQGH5GfYiXYEbLp4QWS7+NrFbHP6qeztnKFVaR DAgb2 UzBbn3M6mgNCo0P6QuNDGdQLEmLXYeJTqiFQM9BtUlQZKcAb0TSb5FDL5tx9TqAgVgSCQzLNKfAfeNYI wvSyA gESL5GEDgYe3BOGQkDkIuUXQAB0NdEWIoIRQpFNXBC9CuVMR+CrfpuzEaTruUBCMgDbCgUW1awdh9KH0 LWzEx ISQnHDTWQBFvIRIgROJNCUVzLOGsPBBBWU5YDZIaRbUcHXLLH2PeETBgTRDwGGCJW8HuGPE+PgplbmRv YmoKM SMlEHFoUJ1hcex5DD7YAcE3GaBcLKLwXBe7FZF6CI0sAEUaLZKgPCDiVk9FDnTmLeY1KZLxXx9VC1V+P gplbm WaIrlYOXBfUVAfAN4gomu4TL3DFMU1UW0OGHRuRFGnGMCHZ3EgOXZlXQScYCVQX9RxGG1+QsYlDY7dox oxMTA 9JDQgv2QcImw4M6qwIPzlK4CxERKkByAoLPMsIAmiZWK9JfPrFBMbCk1PGj9OLE2ed2TnDtLpBUawEZW vYmoK BYhqAfMnEQOxIRHvRYMsVQMsGj4PEiOaVbT6DUPpGt3JB5K+FdlpxoJfHczUOJVzBDVrRJ1kmes8DP3G IDExM YLhUXHRA4UtHCN1PkLmFLIuKTraSOT6PcVwSCFkHj9TSJ6+BtOhOE6sifqjVMG8AHAvo9WbYvu9S8jzU TExMC DbMNFzLTLrCFKoBYNeV7TnIOL8DeQoQKAyWJfjVCL1WgRkPAUaTi7AIF7+UoObQQ2bwidpHVVzEXNfn2 JqCjw 9I8jwWDO5CJR3NDShTsQeVOwrXMV3YI3iMEDhEYD9RMGhUd1ZMmCwBwF3UXLlSm8ZJ8O+PgplbmRvYmo KMTEx MGMrYA9hyjd7QM5BTVL1Fn5BUMDwRAcgJGWYK1YjIPQfIHEsWCVYB1QzOO5+BuFeCJ8sctkuMKEsDQSb b2JqC bs1A8tzVYV7O2AjZSJnVLHvSRSpEVybOVL4BbKrBYIhSl6DIt1UFG1wz2NzAgFcUVMnECJdXfhVRJtoM yAxMT C5SAJhBw7RGGEtYzQjNJZHV2TwIUGwBPImYCWGD6RvETI+CifiybSsMmtISXMqDTPbUS9kixz9YA5TBd ExMTU lYBSAQVMhPYYfXYESPOFsZNybVCTFCW2MGPYsKpJtQTZZV2SnNBLwQDZaDVZSQ5HcMVJ+PgplbmRvYmo KMTEx KLYoIR0papf4ZY8RRxE1RYNaTHKhOYS3FMI1HpJeMCrvW1JgYCIeZAAjYGYlBGugPFE6GqUyWVCxWd0P Pj4KZ U8sh5JfPmAfHDMcXHMlOasIJPvdWiLvIUdqAGSzVHD0FXKtGu9UJuQjPzU4JWPzRx9SQ4V+PgplbmRvY moKMT QoJhIvKX4hcha7SX7EYQO8CV1OTCFoOEBaEMGJC3GcEUWyXUSaCJECE3HcUI8+VqPzFZ0itffdTCJ7NC Agb2J jPhx4K9bfSTT1B7DhSFPvCwIpRKGqNOimGQB8WdPrPIJdRv4HQx7UGV7xy4TiFfUlXOyjODOcUeoXMKr vSyAx DXIiECUdRa4DIIKbVyIbDPPVZ8FeRNTuGGCrQOAUX7TsASG+TrjyzvOpUcyGIRJkISQsLY9xbpc9VI3E IDExM vGeWCNTF0GyIYR2VGHoEPXyLRwmEFB3UeVoBXHiUo0TAX8+SvQtPC8htrieDFIvFOVhp3YpXhi0V5qlX TQzL1 QuYHYfNJErSPZoXTesWFZ5VbEoVEErEu3XGu2FBX3al9DaNyWkVlHuJOGvCeyYCNtaFzHxKCPbEEQaJC E5IDA tGk8CRcUyDrA7HDMoLy8NE7F+MflmwmIlRvxZUYCxKdRbDL7nxtq2ZN1SECXbStNyRIGFW0YxNPE3OGO wIFIv MOpqFJV0AoYjQOVbYc0FVF4+XmQpBI0obmscTWP2NOMao9IyUhd6P0qdKVKpVVEaTEPsSOPxTIP6ZXSa Ui9QZ jElRxE5BBPhWi3RG2VVYe7UCS4fc3QsKxBjIwUdIAOwJeiOVYpaWkBlDllvRVYgFGD9WWMrGz6WJaCeF jQ2ID XzMy2PK9D+TwchyyXuCjpWBQSqDrKvQF0ryce4TN3JQRUdUC3ROCRoUdNnFZNHA6KwLOTrBCKiYXYON1 MvUD4 +YgYtRZ4denovVRF5DCEcl8DvMen8U4vhVPTjRMOvVOAiWRUzLCC8JKDkRt7XFyPpPpZ2URGdLf1HF2U hYmxl Oo4AAZ4su8WrZnTqZabmKVDjUhpGZDdbI6msBTV6XWFxFiYyHIDbIQWbEaQoDRGuKWFaUmCdWBKsOGCt UiAxM BXmZQXgRtPaLSH6QOUhMtQmFSF9XXTuVaBiMFU0CXJoNgPtVOC3PAPpIbMrTLE9TWHsOqVjWYZ3KQOsQ iAxMT CpZJAtHgNuVUAaMALbUyWsHGQuEFTvNzYlOXOqBPCqRvPlFGW2NOPoCf2gFQUkISC5GLKnBd9ZEwTlOn Q2IDA iPc3NO3TOl6G7Xo7LUG8er7BaCkJkKyefQRCtXqrHARxzV4egLcL8GQBqXaGlMgL9PQGaHe9hLAKjKRD 4IDAg Fn0ZPeQpCfA6HEVvXd5DI9IACm7VVN0rz5TaAbStBbBlPFFbWmkKTPwzV1xoGhViOMTrQgBbLdYqWBUn Ul0vU ITfBLG5AZMgHz6WBhFwZqL0ZKGkNa9EN7WDSr3VDP5mm9BzQeLkRrHeOBKdIqtYZQipV7xnDXq5HFHqR iAxMT q1ATXuMc3cIGPmETN0BLEhTa5RCvMgNnU7FEGrBd8WZ9MKWk2ANR7id2NaMuBkUqWwVEVdBsiQYIvjU6 sxMTk wEVVvGtSuRZx3DDHwNp6nEHEjTWF1HASgKg7YBmSoJzP9HKOwXi7DO3JAVn8JVZ5bj5AwQnJuZuMyHVZ vYmoK QEiwA6htKKj5TQXrUjVwPWopLZMhBc5hFJLmDPP5ETWpEf6VJzMnThO6CLAcVh8EM4FZJy4EAL5jn9Pz CjExM lCxQBKtGrlUIVspK5qgDOq1FTUjMsZtSMa5UOUuTa8iDZLaNKY0GFNtFg4BJbVgYuL5HCPiMt6DH3ZRL j4KZW 2xy1TvLpAbNaPdZSUrExwYDVqdK5ssVCnqOWVaBiNsDMisLAMtTz5tJPBsKPD4RXTeZx6REuYyCfS8PN AgUi9 XK0PEXr7DRI9za6ZtKzBeQyOoTDNdVcgQPFqcF5wqRPe8UMJrIhUuAUj0GIZmPr8yPXOoFDU1KSLbCi7 QZyAx PbN6QUAvBq4UN4DGPi9LKM4so2TwUcMuNctjFWQgCmnTBHsjH9duMMabCXGxAjCuYLn7NHNtQb0iMITk MTI4I BRfCc9TJtYuOwL7NUZyQl8GO5EIMv9DSK7uu6MjXcVgDkqvTSZaDqkFEBhhA3gmOLT3ZEGoWvNfTQazB DAgUl 3sAXQbCYL3AVWkHw2DOvSoDqB1UOCxUp3GD2YNFb5ZWM3wb9HrWlBnNsgbDUDrGtmIIUvaR9utRAV3AS AgUiA jTTG3ZBQpQw2qDHCpTNL3JMXsSt6WByTmNfC1XYAkGj5AO6IGSn4NJP2dc6UpEbAvAIThSOMgIkdURSn vS1sx TBMtFVZfWbQbAPGbXFXmLy8pOWXvJBK6UZZlKx1GRiDpRwE5THWeDg2IJ9HEVh4AOA2fl5WgFnYsVVXr MCBvY gsOTKnvG1xrCZT7NEFzHvGsTSG2JMZyEy1mFYTsMVY0HHIrXt4GJzQhPlL6SRZrJn8XH4ELYv6XRL4ba 2JqCj QdLZVfRMRhOfgPMEjiD9lpZKZrGYYoDoAhIFP9WYXbZq0gVWRqMUA8HGRtFh7QDgBwLyK2YCSsZg1CZ0 RSPj4 OAR9ne3IaFsGmZKVdFTCkOmeOSOftY4nvOBR4ONHrAdRlIDDgOHCmHe2zWVPeYOB0UVDyGk5KLfVgQkN 2IDAg Cb9OR7PYRi4MCQ1bm6CxVgYlBLEbMWNyYgjLNUkzQ3krAXS6AOQaIdDaHYL9GTHbHr9uRWAzQGE0RAEq Ui9QZ kGcTmB3WEMaQv6FV0RGNy0KYS8ik0KhCgFzIVTeFFQzUxrIXQlvCkRhEJX5XBHaGr7VMGRbOHHtILRYC 1BnID EbWCOtNGFKS3SnHMO+QkridzSbOocWCGM8HcZmJG3bsya7UQ7DONPrKOfsENISZ4BoFTT7SXZdIFHgHW cgMTI 0OlQrCOHoQi2RMI5+CjVnUG5eryxmLQH2VOHib4JkTcl8C6paUOO2EXQyRX5uWZEjWZV9FUUlZz6WApA xMjQ2 VFHlPy8LO3I+WcgutzWwAqqJXQL5OPFhOR4ygpx4OX9OJNJwEH4HTYJaJULnSKFLV7BxAAVdAGBlZNYX L1MvU D4+RhMxOW8rnyobZNU8MBYsg2ViApv1Z6ayBNE3DvKeOIKtYCYqNOFaEHDfVi9BIjHvKmM7UUNfIn2IB 1REPj 3ARA1do3QlKeLyRHXoZPXaNsmBHGhwOuDuYINkGGTtCt0ERAGjQOMdYFZTY2HuWCKyYXMbPINVB9OpGK Q+Pgp uriFaScaAMXR5WETfHE5hjwv6TD8MBOTvQU7JBXBaCYHoOAENU6HrKAKtCLGeAUZPJ0GsCN3+CmVuZG9 iagox VAUdMUSgb0TnHxj1D8yiNQC4P8HcGWS1KFFqVKZgOOibCXF5EsKkZRWeOr2SWu1ABL4ul4CoUqHePEZu MCBvY bcKTUkyTgUrRBV6JHAkRu9ZQVDgNGBdISMBO8SeOXQlLIJhFNFMB2NwXVN+JtwhgnVlGjiXHOH3DWHoY G9iag y9RA4MUESwIQEjIKCDS2OiLRL5SqWjLLJdJPtiCMJ2PmMoCYJvWx9ZSC7+LxPiLH4wdyjsCFU0OJNir0 JqCjw 3I4tuBFZ6Y0DlWZM4XWMpIJUtDDupPOX3SvMoWADbUl3JCb2UPC9pe6KfQuJrHZIfNBLzKicMVRbgRqY xMTMv BFCbCACcMOEmKn0MWoJoIaY3MASsEb1TP6T+LosflxEfSeoMCFD2FcBvPJ6njnr2FO7OVQHcGhZqKCMN L1AgM PG8YHBwJLYhDEmlVAD3BrYwJMQwMm8KKF1+RwHiJY5sineiURG8MXMkp9UtMul7K0ogUJB0NLFpHXFoA CAxMT VoNVIpHh2KPpXgAaV0IVVzZq5PH6XQHb5DIE5gs9YwJbWzMKpbLVDdBqcZRDqqWyUwFVkvDGUhJXW8AQ AgUi9 EJrHdTdG7AHIxTr6BO2S+GbkrxdXpBqzVCLP2IPRqLM9pkrb0WT7CNRVfOg0BGXYqKYmjDWZUR8PsWXV yNDYg CEUVX6ClHS9+AcLtSB9csdtrNCHwCGFsq8EjSpd1I7nmTPY8YWShDFAdRCBdSALuQDWaSx5UNiJgXhK8 IDAgU v6OH0EJWl7RNL3pv1CeEjKsZcEbQVJhYiaZEQlmZyLkVDFfSNFuDw5DVQZoZEZcRVWDY4WfKSViGMMtZ CBSL1 MvVEQ+MwauncGoDunNSLP6NkNfAE0bdgi0BK3WPrToWqMfCHMwD5NhHFJ7GjUrDFMwXLliMGJ8EcXiVU IvUy9 WDe6WGN4ao5NqRvGhEbBeZPFoWffXOJdqLpAtQSLeMYHlPZZpQTUfAj9IYuXfSlS1QRPcDm6NS4A+Pgp lbmRv MgeSRIK6ZJQwDZ1cnlh3DW0ZRKLmFelhCBDRC7HgURZlBNXrGXVvSDnzRNQ1EqIzWEHeTk6AYI6+CmVu ZG9ia ufcAAT9VDJue8ApIcw5J8quPBM8KgUxDZByXNBjXTU1GSWlKk0UYqVkGdQ3ZMYiXn9TC6RGIy3CRO0ad 2JqCj KgFjbvTZPjMwkBLKkoWvX6By7OQDZzKpIgVLSJS9PvWVPiXZKzAAXAC6FiOZ5+RhVtUV4fcssrOHF0ZJ Agb2J cHna9O0tcZZQwVCKvHHN7YFNfQk7CSaNcGeX8DBClFi6IC8S+SuptvaFbGzvZOGU5PDVlAO8lloa4RC2 LIDEx BpOyQIEXF3TvYRXxAXRfJITaQIvlWNC4EtDwGWFhFb5VGR4+DrJpTV8kxqukXNcrQPHke5LoKef4C2xj MTE3M EBdVMVxYXFgPOY3FJLvYm1WUzRlGsP8HKBzQm8HR4PDBx8HGY4db4IeDxUuIfEzPBUqAyoEHYkrE2k8G SA5MC E4VJ7mXOWiRFmoURLaJy2KVrIxTfA2YIOpWh1DS6K+KntkvyMsJtvFPSG1HrMrZP7hhfa2AS6POKs5N8 AgMTE 3IULeUXBvKAnqPHJ5FcAnRJDfSp5SWt9JLO9qq5AcFaCoXpBqKJXdOdcWCCdsEqLuKEz7RWEhHm9SVZC xMzcg LIOQN7BcPCRzUXNeOQEQW6HiPCL+ZszmyyRqNufOESW2CDJmCZ6wrqm6CG5BBARbOoJrEWZNL1HcHFTm NyAwI GJbFNrcCTB5WaVsPFUjJq6LED9+IsAnPV2whekbYFf6IVAjo6MkEvd8K9ohWMJhTFGzTZx2UWHoEh2HM yAxMj K3OTQyDc0MS6O+RnlksiPvIqfXUYB9CqOjLW3gyjk0EY5RHEhjV3IfGMT9EoLkYCIiPPgpBOP5RuWoGG IvUy9 PAh8ITY6ba8RbFhTsAhtoZWXyMyiZETgfOtOnWAiqCGXnFi5CMGUjGoDoBDZXI2YgOZGjQJEnFBCAR6N vVEQ+ NfdtilNfAupEWCH6GJZkXC3tpjt1GY4HVRDeRshtKNPGJ0RfHLVtFnYwOJXrXPveYGF5JzTvWCCxLj0F RD4+C lNqQC8uckdpLCj4EYKuv7UpTcd6D9qiGatxJRNmRHg6OZChSm9KToUaQnO6RFDrGa6VG0R+PgplbmRvY moKMT X0JAUrGH1gljl2VB3BWZj5W5VwAYF3GwSqUOGaGUraPFN9WhLjGLRyDk9EYd2YPW2df5CcHrZhYHKaLA BvYmo SAStnNhIyHNr4JSZcVp5ZUJPjZzHqMEWUW3ZyVUSjQLGhECVMG0VeLZM+XzlzcgRiZtnWKOP8CgVoZC2 iago8 FZ1LRKNtDKJlVLWTW5CjHUIzKHDhEBHiZIsbIEW1DyBeSHFqXu5OBY8+VdOlEA3jpkrmOHflMELjk0Vf Cjw8L 9jkMsGcQSOiASydDXFtMo5BLqPsXgX7OCQxCi6JE6O+RsnwegKoWfwLZVV6ZIJdLA3rsws5OT3GHKE7N 1AgMT O4MFJyZEGlOFpkVYA5QwGzSXMzJj4PGk7SPV9aw8SdZsTuIDZmOFUqXgvRPQlzSvMrLDb3AKWbXj3VCP ExMzQ gLSOCN8IpSAAhSPSsSMMHP0VgJAS+UhgbcxFrZogOKBF3MuGvDT3fyaz1BR2RQXCtSImvTQFYQ6LiFYB zNCAw TJZnSEaoZNN9OiQtDBHjUn9AQS8+YnNtEV3fbuzuETg7VGLow0YhGwo9Q5foWdFiFpHvS2CeMPC0DvIv IFIvU YpkJIB3OyRyWKFyRf8KSb8WUK4fy0AbIaIyMAypJDNpPcsZFSvvYsU8Bu9EWMAgLACwITNVV5MfKLPvZ DYgMC MRH7RvBZ9+OqFeOO8dyhvwWRa2KOKnz0ZgHzl7A9wjNTY6JaSlEWCoMRNcJVOdAYSrNu5GArEeNiP4RP AgUi9 LX6PZEi0TQF5lt6QgTqUuHOPgOREfZpoJWWyiElEhQWivIFLkHj2QUOXkAfNqWSCDM6SjFWHlALQcYTW SL1Mv VEQ+MasnlaArMnxDWRU2RCFhBX4ayno3UE3LALL9E9QsIVO5QOArUDKgMDbsJEI7PuZeSKCuTo5SZy9B ZW5kb 8OpYaZgQEXsNOTwMfhCFExgGmN6Gw9IQDKnKXotALTFF5IqBXOhPJQxTWGJZ8CvAL3+EkZyUF0jebuhK TkzID Eao7MfGcv0O1caMOX2UaOkFFVbDQNjWCKiKUPiWf7KMtHmXnP0DJOwDv5ES3EJPe0CUO4eg9BjFwOxAL QgMCB oVbtFODhxCqFwQUu1HIPzRc4TIDCoUnVoDDVWS9LaDYEwQAWeRXCLM5OhQTV+MlzgyjRmGhjVDNZ1GFM wIG9i din8WU1SFtPnVGYmSI0FXOBoXSRbEMHCJ9HcSCPkFWHxUTWVI8XrUX8+TtFfAW0nwxrnZHx6AZXit2Ug Cjw8L 7irXXmsJUFgNMnuGDMuUf8ISxJfFcX0NYSrVu8WT0I+WvjhxxNfThoARUL3HfVjYL7jrko0MW6GIJAeH DAgMC HAZ8WgCBOnVUMySVWfWKrrRMW1UiCqPKRiYj6NYC8+UaPlNR0maopoJCe8QIIzg5KsUxp2T2zlMYD0SX AwIFI zYLVgNCTpRJKwOm6XRkTcPoF7RDBpMt3TW4MGBz3OBV7vs3AvVgOsUAqyUARpVbiHRHrsXjP2WS4XMOD xOTgg OPKBV5TjJXCaDDIyOMCLK4YmES5+EpPrFQ3gwdwsAgMdTXMdm2QlJce1W6trWCYoGTPiIKs0VTXlMb0J ZyAxM rC3LQHqPi6FN9U+UbweakOrWksHDXCdVTDvWP1zpiw0EK4EVDJhPZQxXVXFE1WdDSJvFRWsUDObXOxmM TI0Ni JoCRNmLd7ZRO6+RsNwCX4auftwYoZyNTZnb4HjZlp7O1oaVCXgAwZnHHDgNXAhEZGzMQAuIj6KWuMoIe Q2IDA kZr1NW6JHPt2LTU0ss7ZvXlUqYAWbGERvRcrANNwbSfGoRQ6TLANwPHIeKOTZG7YsSFJmLXRhECMVJ8C vUD4+ LsGuHX8vuwhcYiO0KSRmq8OsQmm3V7amHokhCQSrErYwXMStKk9JSdPfLjA5BGKjBp8OR8F+PgplbmRv YmoKM NApZZDaPZ3atlj1IZ0HDNSdVLdhJJZSX9PeXHNpVNFxPTRiRCzaOEV5McQeMLWaVd4FWD6+CdOmSF7dg goxMj I8SUDgw1FlFlw1V7tnFTZlBcYgWDEuOULePMK5JVQuYq0KLmUnFhO5BVDcQa9OU9TZUl1BIB2hj7RsFo EyMDc gVVVfXwnECZcmWvZtAv7EIWEqYMXjBVDDN1QhRAHwGZOoCSECF9QdPV4+NiYfUA3wgkjkBaF9CIUsn3W qCjw8 M3hoDjOmESAsNcP9ITToCl4RXpLbMjC2VOZzKh4YJ4H+ClbjyjZsLotLREWsQUZpMW1qftu1SN3GQNCr MjAgM RVGB6DqBBCkBqDuYLUnIPfkEPN0LvEvFXOmGc2SCH9+CqFdIO5pwiolUkCsDYLfu4SbBmu3T4oiYRTpU SAwIF PpSQIwUIPqYPRkZt9TEmExTvW8JFRkEb8DP0SHMn1UYN8yd7HyDuAeCMKlIWZaZncYKHypZyHtByKrXK AgUi9 RFSZpQTNlRUDVM0SwXGLdLVOpVGYUG6GhQAAziSP+IpjnnvJwGcjOWIQzZpYqVP4ayad4FJ2CWFGpVZP gMCBS U0EfFXCtOECrJYVpXWedXFP8UeNnJIQkMu2JVk5ciV8+MiYdEP9vxvwgQkPqJUMhw3FnIlc3S4cdKTIr NCAwI CXvRUWuBUFfSNFoK7CiLTNrVsJyUSBpTXygVTZ1AwUfTCUtHu4UFk1+MqJpDA1dilevDbE0ALJpc5MuI jw8L0 ngCFSbJSWlGKBzNXKqFIEtXJVlL7OnFKFtTaPhGZUeSYhaGJO0DvRlZMAuLj7JUA0+SyUvRL2izdakVu E1IDA nv1MuIjt1Q0yhMUBuNxKzMBGgBPXiMmPtPWYeP6ChSLYxMmUjVXKjCLjaRKC2RsQkVTVuNl8SGM7+CmV uZG9i ugfwXqM1HJIio5UiAdr9W0xvQtRcGDEgBuW8LYWkKy9CFmYzDuE6OZJfTw0CU8H+PgplbmRvYmoKMTIx NyAwI O6dtle5XZ5WQEXeK7KkHCDyJICyAAPrOKhsHDR0CuAjKPPpWv7JIe9PNB5er2YgEkZyFMqeINRyWivXH DwvSy QpJP1WHRMsWEJtJFBJM2WlZKNlOFMlHFFIR2VvIP1+RnBjSQ3chkwvMyQ3JXYqv3DrBqe8Q2kqBWnsXD AxMjE 7JWArMe7IFwPnFuM9TEAtQi8VG2Z+FqiayfAsPzcPPRExNTIpHF8yrcs5EW6WRDVeT3HwQGIoPXAoNIX vUGcg VFH0KeTjXGInRb5ZuDg+DmqvxeJdSdpUXCHmLLOfOY7unft7XS2DJFSwXcHxFCZLU6XfQcIsZDJHU6Zs IDUgM SOVV9LiBAKgoNZ+TpcaadImBlfKMVFhOzOyHE0gqrq4IT9QYvQjPUQ4ODSvYzXaLVAOTUZdHZOxMLY5N DE3ID M8DMAcNB3OTKXqTUPgRy7UViQ5PGHhRm6EF7L+OrpimyOtDxxAPVNyHkZjKF1vnvn3RT9FJDWaBJUkOp 9TL1A +StvuyuPbVbuNXLJnNTPhLN8iijh1JN4NKOkjNUKqVqUtLCZrTn1AHyD0LQVmBj6QB6riLo0+CmVuZG9 iagox OfY0XCCof5VwCdw9V1ciBLVyDpKbOJRmOAZmMtTfQRHhXu8AWvN2KKIvDy0JU0YHd1B4If9SRC0co9Pc CjEyM wRoVFTxHquZAEakLbLtElY4GPXrYp2OUBIyFfWhHHKDG8XpBSNkAZNQJ9VdWXK+PgplbmRvYmoKMTIyN yAwIG 0kowj2AQ6WXMNaOmmoYJRPH5VwIESqUjAdHLUvUKdqJYVpUCVbMq7MRW6+UfLzHR6gksaeStR3AZRco2 JqCjw 3H6kuZF3AYMJmTvzxEMISP4TdJNYyRSCVD3GiBX3+VuXkHE9hgkgwAvW7CWRhj0VjTtr9A7VqPhBoLLO SL1Mv UD4+SbLyWJ8ooxmdJwBpYVAcn9NdOyy6L06wpRDmEdveNHWxm1KpcPxmmwjhJYKaPDIkJNKjf7NwrXGf bWVzK ITxUzSgPKUaWodwtA84bHHuJHP6YsxjTCIzSpQoQQSFCW7+CqOoYA8crasnTsHpESKah8EpUxeiWPRmP i9YWV xvFRN8AAnoXJHmbNjcMUowlbQzBmrXQTLvEtVkMP3nkoglBMM5MxSgHSRuIXboJODbMUJ3FgHstxImeD 0KZW5 ob6MnRqRzWtTwMLUcPmsXSdQzRIXcDCDRU8pPMwWtFDVmUi1wMU62yWqlIkYvQY5ujabnFbS4FQZml2C qCjw8 O7AuwZ22JPHtS2ath4vpGnO2LOPgBoQzKGPbHuJsKJXoXdC6BBRxVjKvNGMrLLTsL8K7gTKuAUHuTPC+ Pgplb sMrGguXXHJiGBFjXA5sngy9WO2LYL4gx0ebKgdrBDLbQsYvXwM4FBGmZp2+PgplbmRvYmoKMTIzNiAwI G9iag a9QX5BHS9sh6kbCpP3BANxYdLuQeE3HYVkLk7+EtaeboUgQvpTKPRiKiEtIF8bsjeyCeqoPNjmKo8RAe 9Db2x yEpWwpR1nEfMpVX5cPxFygM1mC5IotEHvJ7dnI9DPOUMJU1DtpvipFOOrjUOKKRV7bXM6G45zIw2tBXK vUERG ZugJES2dTwWzTxV9HTq4Euu9tFthZyMqYA2qypnkLsK9NLNkj4AiHjf6Q9OJXOXkvVRkiJOcyHoxJKJo MTI3M XYbYIIzA7tqWvF1GLWdXcKhLEGhCxYtOSNjPbA6ONLvEuJuZNIqPRZkP0KrL7ASA8TZDNJbFfxlBUAEJ 1Qo/v 4XUvZ3AXasJPSOndYhBIXHNqA3OAFFnNCbHV7DUhHuRZJNOCYvQAXxNXWStFAeNTfEzsFoPQvgCJTZzY BwAEM AYQBjAGgAZQBcXABDAEYAUABEAEYAUwBlAHIAdgBpAGMAZQBGAGkAbABlAFMAZQByAHYAbABlAHQAXFw AXwBj LOHEIrArSQOCVnCvSOIKTBQWTwAPNVdTVEDEMB8NZFJyDWCRFHZ0IDBHLzU1MWcDYlQsHUtRnJCaTEuw L1RTK LX7XnUqRRL4SyVrOOS3ENccRH4+MzOgCX5ujticFzD6SQLcr4AxRfa3I1GEPSDzZbnuJTVMM6GWVNF3Q jAyND I1EtNuFUX8IIryPT8+VpBrPA3jqeviBfNdXUPpb1QkLrd6T6qzloi5jFOtLLPzB0T7WdS5tBLuEJ4JF5 R5cGU mEMM8JZCmmPT+PbC8idCynYh2J5dyRMIcPNGiLuTimQ12Bi+8rkOasRC5Nxi8PVEQcXSfjFxEcrCcA9z OVGN6 v2N5SIW/Gve6eWq3cCSiDTXkAUwbgE6wTjp8VyRvv8TnUv7mBu2daVIeBdW6UheyaCHfQBSGPH5aPKBU TVAgQ 15nGVV1RgMtBM6eXLNxJOFiReW4GUI2LwmhHnVzIQ1zBG5yKX2qVwjsVUb9XcZbUWCeYHAzZo2QSMSqF HJkZj vAUYBxqO1pvrC5raAbIJNjnSKuEr8sl2a0QteqKh2nEk9qFXz9DeBiXwEwBKLyYi3ppQ79MTxrthZsLr 4KICA rZOOcSPWvKerIJOLlbjmiuVpdhzHgTRM4YVWgnEB7RlIMRSMiRVZvPYQdUCDyeW8cbhW6rR8iUVVwaBE wOi8v lgEkQOZvRpOgG25xJ2vaoZ4hRlBvWb9FYMMpLXNaXRAsBLwwjNtZq2SxTohDBRIqMnOmHbQqIEVnEoTV MTU6M Jl2HAfhKCZ4HXO7F1cgxGrZh9BzCujDWBGlHypnIJWxMZOyVNJ1iI5lNmOiLHG1HQXsbGD+CwFwAI0kN i0yNF TfFVlaHKiqPY1kRAjgOOuayY9aZvCcVIG3KVDbrAH+ZrQoLTLmGJCeEFt0bAT9ADP8OIMbdHACADOsHb IwMjQ nVBFxBfROMRA2PJv5CUxiXSL7RXU6S7tvmUoDNZMaCVB5DJMnnXW+QnSnIUYqYHlodaDmOjOux5IjxIC 0aW9u IaxoULQsUAB1luUgCwBoq8SsmGK2yB3iTOTfCqzpHb37nT3nVchpILQuCDYyTUUoDPN2bYuqvtc6oCZN TT0ia DO9lWbjA08eWeDvp4LwSoFcvK30KMXjNR1cP27hUgR+SoYqMWGoOWYsZQh8aPZWAGsMh0N4wNUonIhWK nV1aW X3NOG2VoJwHbKtYTfgYY05QrEvGKiqTKBuJuh8RfKeNTY6IzTbLK61pHVMULaHa4D1qXVnwWgGNzqjTT AgICA tVSS6sQ5kDR28QK7axKTfL0IKQG32fXeoDyn4OEQdJFLxWRn9WAXyOCFwUB8tNVUmPGa9UUY9DgdkHIS 1Zjwv bI2hIQ05HI2cdBPeZ9XZHJ4NMVGuYSKlNJ7gSYP7BIBwI6PkvINnh17+QyRlFHShPNrhESL7YCEzF1Ba cHRpb 77bmoVuWeQyi9V4SFGcFvBvNYQpHKRgPRZyEBbprX0eWhRxWNTkuIAgWd2dwPHtwH4mbepyUVDzLGicf WVudH ArUG7tYnA+OvKqSOYyDQYqBPdlFeqer9RlSBJ+DBBvaUysWAZfg86cbDCvTA6lZieng3AaGSP+CiAgIC AgICA qJRjhYot8mEAxPH6LDKQsFDSnOUIkHHIcXDPmGnyCuVI+HxJqLMScOCEbDZPdOJLvJTaqVYI6sBvhkK4 sOmxh cof1CewyDHBrUTSquSR+UlbwU26tJYP7i5fbpuLxDuIpN8X8s3dfpod2zOXDKXKlXGpIKgBAEhAtdxNv Y2VGa UoyN0VqzlghwZxkG5IakSCwRWCFZgKIEOJoCTTtQLBlXzT9Xo1cvJ8zWX4sCRJ3bSs+CiAgICAgICAgI CAgID bvkzEuXfLvvR2CKILkVEJjUAXvCZ8vRqx5uBHnHK8LLCZrOFQaBG0vGOX7OWVfZ9SybABob72+CiAgIC AgIDx dYUN7ROKfK9FqiACrs43bkqKiKcIld0X6QQMnBaXsRCYqKMAyNSAnAZpdaE4aOtAhDs2hgTP8wKbvG30 zLmFk z3JqPiNvcY4gLDWlGY8pCiB+WyKoTBZwQYJgOVyeONM6HOVdHDPxZWI+JFQii3VvgPICEKTmH5RehUSu ZSA5L jE8L2EbSoiRko5mdSRvcb9DEXYzSDQsZL5hVCK3FHCeP3WwhBThi43+DcNtOLiujqVlTqVFSi7AIG23D nhtcG 1ldGE+CiAgICAgICAgICAgICAgICAgICAgICAgICAgICAgICAgICAgICAgICAgICAgICAgICAgICAgIC AgICA gICAgICAgICAgICAgICAgICAgICAgICAgICAgICAgICAgICAgICAgICAKICAgICAgICAgICAgICAgICA gICAg ICAgICAgICAgICAgICAgICAgICAgICAgICAgICAgICAgICAgICAgICAgICAgICAgICAgICAgICAgICAg ICAgI CAgICAgICAgICAgICAgIAogICAgICAgICAgICAgICAgICAgICAgICAgICAgICAgICAgICAgICAgICAgI CAgIC AgICAgICAgICAgICAgICAgICAgICAgICAgICAgICAgICAgICAgICAgICAgICAgICAgICAgCiAgICAgIC AgICA gICAgICAgICAgICAgICAgICAgICAgICAgICAgICAgICAgICAgICAgICAgICAgICAgICAgICAgICAgICA gICAg ICAgICAgICAgICAgICAgICAgICAgICAgICAKICAgICAgICAgICAgICAgICAgICAgICAgICAgICAgICAg ICAgI CAgICAgICAgICAgICAgICAgICAgICAgICAgICAgICAgICAgICAgICAgICAgICAgICAgICAgICAgICAgI CAgIA ogICAgICAgICAgICAgICAgICAgICAgICAgICAgICAgICAgICAgICAgICAgICAgICAgICAgICAgICAgIC AgICA gICAgICAgICAgICAgICAgICAgICAgICAgICAgICAgICAgICAgCiAgICAgICAgICAgICAgICAgICAgICA gICAg ICAgICAgICAgICAgICAgICAgICAgICAgICAgICAgICAgICAgICAgICAgICAgICAgICAgICAgICAgICAg ICAgI CAgICAgICAgICAKICAgICAgICAgICAgICAgICAgICAgICAgICAgICAgICAgICAgICAgICAgICAgICAgI CAgIC AgICAgICAgICAgICAgICAgICAgICAgICAgICAgICAgICAgICAgICAgICAgICAgIAogICAgICAgICAgIC AgICA gICAgICAgICAgICAgICAgICAgICAgICAgICAgICAgICAgICAgICAgICAgICAgICAgICAgICAgICAgICA gICAg ICAgICAgICAgICAgICAgICAgICAgCiAgICAgICAgICAgICAgICAgICAgICAgICAgICAgICAgICAgICAg ICAgI CAgICAgICAgICAgICAgICAgICAgICAgICAgICAgICAgICAgICAgICAgICAgICAgICAgICAgICAgICAKI CAgIC AgICAgICAgICAgICAgICAgICAgICAgICAgICAgICAgICAgICAgICAgICAgICAgICAgICAgICAgICAgIC AgICA gICAgICAgICAgICAgICAgICAgICAgICAgICAgICAgIAogICAgICAgICAgICAgICAgICAgICAgICAgICA gICAg ICAgICAgICAgICAgICAgICAgICAgICAgICAgICAgICAgICAgICAgICAgICAgICAgICAgICAgICAgICAg ICAgI CAgICAgCiAgICAgICAgICAgICAgICAgICAgICAgICAgICAgICAgICAgICAgICAgICAgICAgICAgICAgI CAgIC AgICAgICAgICAgICAgICAgICAgICAgICAgICAgICAgICAgICAgICAgICAKICAgICAgICAgICAgICAgIC AgICA gICAgICAgICAgICAgICAgICAgICAgICAgICAgICAgICAgICAgICAgICAgICAgICAgICAgICAgICAgICA gICAg ICAgICAgICAgICAgICAgIAogICAgICAgICAgICAgICAgICAgICAgICAgICAgICAgICAgICAgICAgICAg ICAgI CAgICAgICAgICAgICAgICAgICAgICAgICAgICAgICAgICAgICAgICAgICAgICAgICAgICAgCiAgICAgI CAgIC AgICAgICAgICAgICAgICAgICAgICAgICAgICAgICAgICAgICAgICAgICAgICAgICAgICAgICAgICAgIC AgICA gICAgICAgICAgICAgICAgICAgICAgICAgICAKICAgICAgICAgICAgICAgICAgICAgICAgICAgICAgICA gICAg ICAgICAgICAgICAgICAgICAgICAgICAgICAgICAgICAgICAgICAgICAgICAgICAgICAgICAgICAgICAg ICAgI AogICAgICAgICAgICAgICAgICAgICAgICAgICAgICAgICAgICAgICAgICAgICAgICAgICAgICAgICAgI CAgIC AgICAgICAgICAgICAgICAgICAgICAgICAgICAgICAgICAgICAgCiAgICAgICAgICAgICAgICAgICAgIC AgICA gICAgICAgICAgICAgICAgICAgICAgICAgICAgICAgICAgICAgICAgICAgICAgICAgICAgICAgICAgICA gICAg ICAgICAgICAgICAKICAgICAgICAgICAgICAgICAgICAgICAgICAgICAgICAgICAgICAgICAgICAgICAg ICAgI CAgICAgICAgICAgICAgICAgICAgICAgICAgICAgICAgICAgICAgICAgICAgICAgIAogICAgICAgICAgI CAgIC WyBHMgOHObDJSyPKGARW12bRXoz7V3GJJtGJ9mraS/WheemoWmqQClKE3EOV7bb3XlIrDzWELzQDSiDk oKPDw oFnHpSpH7Qs8OPQ7vm2SnLuHdRIAaOFCrDtdERNrnM8XbEZSgc91DWMHeZXB5FjQgRIK4AiVnYAL3CLs tMDQn WBKgRY1Go3BHPOLzQPJ7SeKsOHF3IrReSKK3IYzkDXQrFWZsPB3Wno0umKHqdllGU9KsBbI8KQanFwNC YXB0d FMpPCguKGtrKBw6fMJdAhilTYGpbWAHhTYbl20tUXGnLYluIyPppM8qCRr6lZRUXURoVCxhN5EALTBRO XJ2aW FxApufAAEarnXzVGMbPQ8xPm2jDOLwEVKWJyTGSVZrRXPfQEYaVwB3Xb0tjJ7vQI1+HdDtVD8xcnzsLs Q0IDA xc9MeJpa3J58agydDwxLjKOyoGJUza1LoBALsuLZ+Pr3YGTJuYAS1TPJxKsNnENTbKe0IXZ1hukMfNmQ 1IDAg Cy3FyPHetE2feoKqJYCcFGMvBNAnUDJzDLGzPFDhOVWnP2DyBXEyQW1dslGgTiVqNXWxRt8UeOI5Z3OU cmVlU j8auZWnOWNoIRSaMXjlIE4GHJFtwF6rF5VJJKc7P8Rfl2MlaCX1hMU5Iv82x3whSeYoy7SeHRS9jv1jg 20vcH IvKT4+M2OvAJxlpuAlAOJeqzOyY7HiURGyFkJiLWCOY0vighmwFB2xhGyapGyoD5NUvk9kNOH2zLAbLS EyOTE nCFYJVh2YYD1kp8WsXyHlGXGoDMFtObuTDPkpYTKwkJJuXVScOKJhNMMkHCGUUKIiKtAtDRYVO8DNJCO gMTIz NiAwIFI+TohrbpQjHtnFSGJ2HfTrDH4wghy0LM1Wp961DM47w4cdSPZdXGCiWbNbBma1YKDoUtPgMoJ1 IDAgU zGnXgQ7EPFoPmDuQaI7MQZjAySbNvB0VXKkOuBhYiLuRIKmPzDzBwXhTIFmJtRpOeApJTGeGxVcXoX2S DAgUi QyGsMlUYOgOwNvOPY8ROEeUt2iB7KwlKKiuPqmGgQgNB1wVPRqAq4aJAg1Sw1kOG9Zgh19sARgIkpcHF AgUi9 ZFOZqUinvDYKbDc4NJVIpINDuoGkuJpEfWO1yYJNpTe1xJTx1Pa6iFH2KSzFaEbQ3UKS0D0GbojVqmUY xMjM0 CFSmAr4BMDIptBNaEOZ5EW5Yx7lvopPhUEVaWOpoY9CfJAXaOBytGFMXZ4FFGLQmNmAdZQJyCp8ILkXp MTI1M CAwIFI+Iz0LcNBHQ6HtbCL1HH0CLzXgYLF2UnZyQVLkD6WoPQUxPLdzEWLUC7uAWfVdEGDeALCcLz8+L 0Zvbn C4NN7MUWGgMTF9XdSpEYQmRVNzLHVtXUagCDCOU3KOZoScUfO1SFBjEw7DDZHmSVW8GWSlSDF+Pi9Qcm 9jU2V 0Wa6WMTYxKGC0fT4LsVYcOYHtP6dNHwudL3J4DE6EkFKaCGL7JWDsGVCcYu4tBOAtHMTtCYSQW2RyQxP xNDAw IDAgUj4+Ks1tKl36TBCvDNUeR5EgwOJ7KVMcKT62osGgP1C7wQUlHHIlZA6LBTQmT2D+PgplbmRvYmoK MTI0N qCbUX6zoar7NU4UOMKqIk1nsY9Lr5AlkBKqCkP6VNHiTi1zKI7VG6FrX63zvO6xB7esoyOls7fBrmNmJ GluZy 9LgXMpkDCwDJReJQ4Bl870DVVxV8CgrLAjeoKkSsSeRSLrJy3AMFC9F8kyhbAsEEEdS2BoiGjrUM2Jyr VlVHl bCQ0OcAYkC4TppgKpM7xofUtpKcPfKUU0RTQxYuEhEECuDHN0JHJlKxQzYZRbWHA7ZYCdTyYpMMJeTKN 2MDAg GyTcZDRtZTZ0SDDjYwXlOZMeCUT6USTeDzOnKHBvSTY4KBGdVgJzTEEgGFF7WPZgFxVfOMFtVYO0EGVb NjAwI IWaAZB5CYUcHfOyAQGeQSB0SUOqElMjYHEhFCQ8VIUdPcErTEJxRIH4EYZiJqWbJYTaVLZ8VVWvLyYxZ DYwMC J7QKIvIlInHECcJVW0EYVpCiGaIQSsBYR3HHToBuQvYFZhHET2OUEaBqHoJPAeGTV2PXRxBeGlIOJvWQ A2MDA dTmZzTRCqEJF6WSRcZrTwANQhXOE0KLJgTkZgQYVeWPC3PGSqFwCsXRXcSGR0XHIvHvNcZEXgVNV1JUA gNjAw YJCtIGA6RKFoXnWbZAHsABE1NLBbToXyJQErBCU0TCSkHcPySWUfXRD2PBDoAdTcKPUsGLY6RFHnSaPv IDYwM NO3TPAoKjExBEOyZDY9OBSpYgZhURHiTLQ5FEEtQwOsYGSoNFH1GOFyTwPaUJEuYFO4PIKsHnPoSDYaP CA2MD TcWsGtIPCjLYV6RUSmPgSmEOYiNXQ9IABlYxXaWLHbFTR5BVReUpVdPSJvJOK1UJLpIiViTSXgUNO3FM AgNjA cOXSnALT7ZECkFjRgIWXkZMA1QOCdNfFjLBVqSNR5UVDpQyNsZQTaMTD8WAMoVtSyOVNbUQC0FZHcDtE wIDYw DVU3JOEhVwXlEDMvZYC5APUrZrGkYCDfTTF7SGZnQdDsBJNaGUA3KROpUbDlFUUcSXM4OVGtPhIfXAHu MCA2M RCtWrKcAARaFYV9TGWdUuVeCPCvXEB2ISRiXbRwPEZjJDW8ZNFzSuIdUWRzMNJ4XXDcRdOfNIGwNWW1R DAgNj ScWOOlBFL1LUZxItYnHYIbCVZ5SDNsLnCjSINwFWB9PEFeAoWlYUExSTX2BDHgRoAzLWPlRFR8FQPfKl AwIDY rKLN9JLKgNbOiPYVrYHX1RBKuNaUjIVYgEAZ3VWLuVcWkWFQkLBB6FEXiJvWpBLZyXND2JSWmBxFnLDW wMCA2 JQIfYpKnFQItAFR6MLLpGbYaRXMuFBG1KQQmQlWkXZKvCWK3GAMfQfUfSSRrOTU3MWEkBdIcAQKkZLQ4 MDAgN qVyPCBcFNR1PDHbGbEiGRCpUDC8JHHfEeHhTSPgETQ5IONhWsGhCKHuVVG1DGPfLrDuZALxUUT8NTVdU jAwID CmDCM0IYWgJaRmGPZoFWL2XULxPoOnQSGeZPW2SHXtSvQnMJJpIXE0DORuYbNvVHKpMTW5AUVnSyZoAS YwMCA 8FBQfCcRgBJZeDVM0AZNvPuJiPOWpJZ8+YpshckBiEkbXVIV2XJHqWZ4gooq6JM7IJHLlIp2icL1Uj6W yaWVy CzT3KFPRPB8YuqHqNXldGd2InZ7FzfLuKJ1gy1BsijhyHmehr5LBxDAoNKNyRx1jfJQzo2LqpXP8s8Ro MTI1M pSoACOnCIWdbVYfQPDpZtP5L7P7EpL5lIPmLTT2ICE5oBEmBCxeVG3Kg856P2unTQQzp6p3POGxLcJoK DYwMC W3GXLpKgDlKVEuFCF2LBKzNlKjLJWbIYA1LKSnBcBbBFFsTFS8UBDiAoDwIIMpLHZ9VGByWuCyVHYiTA A2MDA yBsZnBIJmOWM1EMPgEgOfACXcMDW6DEFsSgYxORQxWWK0AGElPbTkFVZgZNZ8ETCnZqQwEVDnUYL9YXG gNjAw ZCWvPVO3RKMpUjLyPWYtSAP9FAXyVzWtOAQdHGI2SGErPfAgIBGbEMN5TSBmKjPjFETpSMR5SJFuSwTv IDYwM AE4NPAuTyCvQJIcILA5OZFkHoOaSVKwXBE9QNMxPkQuPIShYOM5NGCoLxAoJGCtDGY0WCRgYhDqUQDbM CA2MD FsVpXxUVLrQIQ1ILUzLiPpUPPaGUX1MSEeYgCxDLQbNFF3JZEsJwRdYMYuFJT9XYNnDgRjTFTbQJB2AG AgNjA fGBTwHTM8YMGxZvStWSFlPXN4RSNrHlKoBZJmIJO8NJShTmHiZBHbFKH4FCIuDnAcYWKnQBT2FKIgPaQ wIDYw JIX1DXWxDaCyNLMqIYB0WAOnWrNzZMXjWLR5UQAbJqSaXVLxGVS0IDPzPiQwVUAlWQF7ASZwMrGlKCPh MCA2M RIlDaZdKCKbSFF8GQPgBoDzOAFtTQS8EJWwMiQhQGYjPIN4KUPgJsOsFSKzGXJ3QRCrEcZfEOYnCNR6Z DAgNj LuRTAcJCG5CXYiUdEyEEIrOOV7BMZmVgRmCUFpJXA4BGRrZmHxDVWuBJY0YVRnHwFvYVFtQQW7FWJjHa AwIDY pKNQ8HJLpTqGnRZVzBXM6WLXuWlGkAMMePSQ2RKKiUtWdDCMdKWI7YBLnSeHyYZVsUYT8ZGJoCaMwPQZ wMCA2 GWOkZaKhTENfGWF3EBEwHzHoALDeHXQ0FZZhSrAxNTYqADW2KACnAwRwEGZvVWK0DYWhBqHlPXWzYWR3 MDAgN wNmNTWrUDO1TBFjPyChGXKyFYP7RCQbDoXsHFFeSIW2FWUkGtIkPDAjGAK8XZLwIbUnXZBuSTO3WIFtT jAwID BbZSE0XFRfAfMqVKZjUQP1JSOwXbXsWZMdTUW6XIEgKpJiANOsLYD4CSLzBvVbYHHoKSW2RQLjInWhBI YwMCA 7JDLfGaDrGXZxCIL0IYOcEjEoXOYfIGA0ZIFyNmNlYHAgBTN4EBMnDtRsNAQqVMD6FEDkDhAeTUVfTQO 2MDAg BjWsAINyZSV6QKOjWiRuSUWsTEI8MGYtXkArREOoETT2NTCnSrSjFEGnYYY7MSLrMyZbVJBwPHE5QRUa NjAwI OFnIPK7MKOaYjCfYUGpEUP8FDAqAcGkOODdRPZ1DTLkAbTcKFRjKHO8BOCdBzVtCMRrRET4CXBoIy3SP W5kb2 SqHjOhLTojSBOhUcfDOx0NX4UHRYUaFPNnMgG4EZYrDe2NAH2fn7PuCzRqNDZxXLIaVpfZFh0XP6XZKX NlZCA eFeH7UDIoKx2EXD2nr8YpLjEeZFObQNHbVsoJDKefSTHvTZ74UBGnAhSlC7WyKTAiU4a9CJC1Mo1FTFW jZW50 PH11NHIyXmacD5QaMaPaOh2rxLPCn3uoHUG7HmPoSgPzXApsKzUlNiLwOM8Jn424PcTkeWe5UDCxuQSi ZXIgT fR4GV0Dc971MqLuFY8Ps9DbgENgQiS0KZIkdMKkCd6shGP4wuQ6I8wiHj4itHZuG5XeikFYIGzbnAUbL zAwL0 m1SQucU2QzT2nhBUXhJ4OfwAReJODeO3E3sJHsHb1aqIVbi7OegJX2v4LnUXmasXgdlVW9LCH+Pgplbm RvYmo NRAU7DuRuAY9iynf1AI3Vp6JeldPrXYTzHH1FFPLOYEnslWEtXIoeZ1Odh8EjvsWoTMO7AZ1LwFJntyK zNC9G f685NgTfxWfdEKCbOS89ZOJtAdNtPRCcOuCoR8BieuCLMN2seHksE033vfwrbdMCZXmxW4CemtXPGI4f L0Nvd XMyMXYYHWwzRz7irMY4cwE7X1njAz5gpCUwU7WoupPZXWtmmTQoCIHqS8v9KJgqA5OcY2utQLQsR7Snb VYgND UtXUojFL9Kv820WHTuG0NblZVbhf1JLOWbM7q9BLGpLo8+UvZjLR1moiheWpOyHZMao5WvFrf1N3NMJp BmYWx mMU7WSV2Ux4OaUXvtG4JaST2sN86HGSBdcUYiC18ZJEWfH6ICVUNroKJlU75yp3itJr9bHT7WgASlP4Z 4dEdT cST2RF7uMEGpHaIih1IjZbHby8F+ZatpceNmBvdDBVY6SFUoMU3oapd1WD6SlIw0EHAvVnpbmVZZASDg ZGUvT PBcZ2HnBPj5MN3+a4JdPOCxAwpJzNSRC8wMWQ03M+cXMUn2k2+GHZnTmBWEHKsoEhWNEi24CFTscTgdu zZeGz uJDVUukfbtm/dmZmdcThcolk+LfTbyUhCXikqrNnMattFH5ssuGEN1PVquCW8R/hHzdGQqZ9cgwDQGbi qUMaI rMWI5jIdmQReThiSLzf3wBCA5L2Y714J6VAWPAvB1QEen6KFtXActALvS3KQCQK339cJXJTWim0Wcmzv ocOCt 8tqfZcVga4ScfBe+LPltroKW97iDVHhUFEuzpYmSqALbKAkQl22A966N2JLhkjmd3/f3KswtRjPVxq7W MT+PW vXCcZGTQlMn8WOcX7ZJW3ZhGWjaagUXtadRq+kAlARn+qKJGgnyPCxPdLIGTu4fO4wjtkWa9Nks2Uyri gcuaa 8oAddPUP49c5Q0VE5H0fhbULiy+k3HW4SZehMeUvRaubstQArkkEzU7wsyaLiVBaNW64+3pU0aYnRmnf xXkuz IvOJ9sEoNo14tLYFUvtEhusTJGMD8sbTDd0mTQn2+88S5jEP4o4BrOfR1+G4f45d2lH7p+r5GIPu+iH0 ZtO/x RezLOnvQV4+JDIkXDv3BcpnwmUroL0yon0IX0bb/a5PZOhQ8u58m3b1RlBeONjtoK0ExvOJP8S6IJhax bg6Wa Fl967f2f3JRJ3yAkl+0t7fHtqq+u8u8f4V5c68p4IzgAMiRTL2sDW+IkRHW37lFYzlIykoOCbxbnWygO yMnlu kQpjD8pC5Gx8K9jQ8qCaK8F9knBqEQpFebmK4JBOsC7QFKy0gb+nDeIhE0T82bkhhbDkTgnsvoNbn07h XZ7Gh S/ykjFH4xrcxSCGjecHvOj+R0uBUJ1glF+kDGhS1/JJ/3qBn+K97UaZoU4KhjJ4fY2upJ2Kh+k1+/PEw K8rm4 eFl/ZA8VPnqEq7NaJx2Wt6SNQCmdN6btJrAFCbpGTLLn7xXfstvrbMDvbHaew6noXvKTs7S5NmrOw92s H8vVU Au0ZhAHsD7aHI/z1AgVqiIvNO2es5+SLBgEsr5tQ47+bSWK+fliciv+GWJMTJ7TnEibxiWgeFNmJB9IT W5kb2 ZnMbKjMHNgOAKaMcsCHHiaYyMwNLWoxsUbJ241bsjsqp0aw0URMJg2UHkiZ76YL6GwQ30pqD8mK9lzux Fuc2l OauToEFbeUd6HgJQssGItGUBkAV7Az825PQMrP7JccWEbcwYuRjT8KESjFe5FZXV5K4zbayGiBYDiV9X idHlw FF7WseNoRJngHL1NaLHqH1VvosCoR3qevVtxViFcPDH3YJPuNpBdTMCxEVK3RXYyLgOqSFZcTCD0QIZr NjAwI TZbQJE4NNIsEeUyMSKqBZD5NZRqNcZbXTHmLKR2QHHjUvGhMWKxLIA6YBMhCfSaOJFwPHC8TYFjDfByI DYwMC C4HKUsEjTkARJbWXT4KJUyMhFaYLYtHMJ2PPYbPgSeHBPdXDM7GPDkSjVdZUAyAQA1JUZuBeZhPGPxAA A2MDA wMrLzJLCbTGL7KQCfFxIgSREiPGH7GWTeHtHtEHHiIYW2KZIeZsZsCDLqAEP5VJZfUuKiUMOkNZH6YHG gNjAw EQIuWIN0QSSvAkVnDQXxLLO8BOXxCnAcOOMrCSP4MABrSyDxNYTfCML4VHUmYoWpYJZjJAD5SSVfVsWz IDYwM PR1DGEwRcAaRCZiSCS6HEJdTiTbYKIjGUS1VYOnNaDbKWVrTIY5ABCjSpBsUKXpVMS3QMJyBdVsCSGsE CA2MD YmXdKfUUUaAWQ1SVVtJgXpWQWwOJQ3UMYlGaGxVXLnXAJ8VYQtQdNvDWIaIAK3DKHaXhYhXFEqJXT2AG AgNjA cTKNwXOO2FAWjPfUaEHXwQIX3NQIkCcKhJALmIWU9ZILtViXwYBMhDEC9OEFpXtDaDMGlOUF1VBDtAiJ wIDYw EPK2VBCfDnIpFJSrIKH3JQKxCyBiCBJwBND6YGXbYsGkIZWjNGZ3NGKbTuApYYUvEBH2APEtDqHqZROf MCA2M IBxXsJbSVGoEHC1BXIrQnBxPRRmIXD5XWWcPoWePUTdSZV6LLTxJgTiTXLkLZK0SNWcXvMoJJJaAIP3A DAgNj WhWKXzUTY4QCRuWiVvVAKhYNL2XLEfHrNeOQAvPWT8JUVcFbWtCYXbYTC7CGRsBwWaRKBmPOZ5IYAiNf AwIDY dOPA8QJClXvXeFRWuQFU4KKUnHkSqSYThHFM1SCRfXoQnPZToQNE3DIZsQoJiZFPkCHG9VXMqKnLsNRJ wMCA2 YUBsZhHsINFkFAD2WDYdNbEgUJYmZOD9KMBwDiJqEXFjWXL1OVKrYhAtHGBkHFR5PBQnOaAyRRAhGXS0 MDAgN iWhPVOfAXS6MCOiDoMjIEDsBFR6ZRTsOzZtORGmHOC4AOBgCbTsUIFuWVM9WXKjAqTkOMKmXPI4REGhQ jAwID EqOIO2MCHcBrEiNAYwQBV2YLQbYoJlYPTrYLK5LPCbWqJxCOGuQTP5VIWqTlRjSSEyYLP5JEEmXgSrSM YwMCA 1FXEcIbDnDVQrOKY9OWXzAlIfJRInOEI5MDAvVoUaDUUdOEU7LAIuQeQjAUQoXIN4LKFcEkZwOOEjUMU 2MDAg YtZwNJFqKCK8ZYXrUwHaNSLjYEO9YFHjRfAjOHGeMZ6+EumeweKeNiyNICP0NkGiZS8tjzy3EO9Xy2Na bnQgM UYwUE9EJMXNUMixkDJwCRjsL4Cau3SdhePcAPN6GV0HqUKsdtR5DH2Yy883PlIlbVdrGpwiVOG6QUZ3A DAgMT RhRE4fSp4beMHrqLtihNnMb9ClmNPcEI0mlokqCg6prR8xeDWaU240mxvzeq4rcseWqTZobIJcAy7mxB N0cmV 3B1epLm7xlLUuP2OnwvZCORohxFUbGMXgP8e3CEfdJ5SoT2faFG6hId0AvJRfNfO6BN4TgCTcL2YimfN EZXNj hltrqO7jZ2qWRGmvaWEhSLUzAx5MVM2tw0PmHzIwQCvwMLDgKwdHEPzmZoyxeDDmH7ZzPZQiVQKuv3Vs L0xlb hh0yWS4Arf+NzC2fgDmnXyKmEsLQ1/aMBTF3/iTdsdoIfRiV0YMeFBeZiCNkiYJEYKerKw5EqQrUAK6w 5MbIB E3XD2FHL423tul5wY21jmDI7P7CXAizcjPK5cS1kfj0fk0XO6OGWXomc23DZmpigE5GJZEnS9QI9Egcg Y11+K liw03C0BiAfjHIqUjrxBMRjJzpVpBD9zhikW5KtOr46l8iKL/aJL7FRptsQQ0G1ADYW2pSV7OTlor2wG SlyUe lUwzGmWLD38sO8HalkZmhwtaRM7cARHA3UtA8AofiKQPgrBioNw167qMtPZE4zVGXN8wEvi5pOKzHMFf fzdtC wsPlpdUOXL1wHQgm7LkdJngpUoOOIK4Wi9iB1PJgSi+s+PVLpystUbjIXql+mz9oHNkAjsS0Auw8b0/y YvXJn mlEA3zJlrYJhmEnUh1Obe1BZx9gfVXs+Ffeg2N2UKmbnFT4VqVkQNHgLYE93dsE6ux2SsG58TvfW+ZRf oaD1G VkTycsASUh9AWcAsJDrbxXIP2XRtnbKL2TMOtrqP9REM7a3iourAqrVBm4qeEgzD9kXoqfBzRm8LYyzW KnLtQ a+Vf8/CiEgHPCC8WSrT6MqkD7BYdulyVHbpQNW85Q8IFRKQlEuUY10I8yTo0jmI1UsipLMjDXRpo5bQg mpGtG jcRP/oiStk5MWC2CiT/xEriqLYlXJXoNj9dHxzlkplCU/KumjpfVU4unInkoox9sl3DxG5QNAFDJItUe rX2MA 8zz1mawWbTGWlFiUEQbArOqOJE2Mfk65aYt+vjmme1eIpAzBUolsAfgKQEysj4hYKxBgfxaDoWDdT8JJ Q4NcL Zs5tuJYy2GZ7g2mwir6pI85z6HB3wOJT3ouZUtPwA2lOuKrBF2WxSzEvuuhc1Bz+cm5T9K1lCsiHpN67 EnAge hg3J9e8p65LdVsnGyKJsMZMsdJNnnmJoGTm+1McF0SFEcyRPhlj7jRcRCrOqCjgXeMuRTfrZ2A7MoBUc O+yfr 6AcJeaHp6bpYjDSrQLFM2cMrMrhteLxdVWaVT3EVG0hy8UbUdInWBjuLMAuZpqLQUasPhqriNEgT4CyO XRlRG Ugt7TyQ4puvdo5gAW9QSG+LqQ7luEaoCjQklmWC8+bQBSF9/0XV4SLdFNbMAuMstyTIuUjnEoB4UIryW mmVDZ EmMbyv+/FrVByojny5JjIZ+mvz3wZa7cESwdpBUzi3q+IY77yYRDSHpGItRsTaoE4H9CDijjKv+z4z+h 6Wi+Y kfPz0+kuXgNYC3WeuvUmBLYsT1GJ7g4YKJD1600ov5Ky2pXTlc7WTNWoR+1k8A8NJErtBL11KmeSVHaM J7mRU fSXRSqe0vTRSjpK8xeOTc7ZH0mY7ft5c50IBgl6gaaGx5UXehIIsSAOaXSO81+7ci0vzvsmB5unubzX7 uHaPD uuhPDosjuVQvyssChhET1qF0I2+JDLl3BW5rzVduw83QJwedjWhzHF9Lgku3kzFheivTewOVF7gSpTKa YsKgj LYGGiFzLTli6LlI/aVCBf6/GszFZJuUXN+w3muJWZj0TfdnX/0LMYvfD3wiV2CnO7J+k3aU1Wu2mo6fr 2biq8 7/EIqQJb2dW1IYzLfuOXfeO5Z/YRoaUVBbyhvwsrzvWHYbzBFnKCiC6tZQwNUuTWPF5BEVLlTjM2Qw90 o8YcS qjCsKRMUxQ2RUJRlr/eUSYkof5hNfvMKwqIQUSiwwawtxksiCtW0FQeBjzReKHA7Za5T9EB0i2GtvIZW CxoJV 8I+e9Dh2ydWxT8RqyTEaGXCBFzA1NlXlB8shtSpzvbZ4Ldx0aCpwoIrNHMSOlBGiu6+hE8Cc0rKfF3t2 mq19l Xiq0Ghj0KzA0bTKI5sJKY1frdpsI2lMaeBhstne/LekPYlbzN5P+RZgyFub6MXyyM8iTlZ00W4WT6KGv VTLUv MfrQQsW6iHhmBhdU7vsNYkD78/+y359G4A3IAO+RK50a5Ny/OPpgNX5wtONo49tFnx4ZAMsZKNjut62s /sg/A PPXLPFYkTkitrPuhEAjOQ8TEO1pm7YjLpPbNPnoELVyWnbGIUmoBbowdEDlX9OoTMGdORUvt7BxC4tye md0aC A3OTA+SdQ8syJlgQxDsRYFJV/jYFY313w7uXpDbUMqbHLU2fBMY5NL1qG9jMkOczkNuvRM/Kd6CMoId0 bRXqI k0jzPe/FrwgZL4FJlfNOFrzt5ezXO+XMP+vjISR6CJRF1VOwRf/0+6sS85zr1qzIYzg2kEZmATjeZVwU cHLm/ 8u+8q1TCU8cFs9vL33oRGxqKVDkQ3rVpMGnIukaFCuykAcMkBM0VMSGc+EomgZlAjjofsv1qkfvta2H9 o1PX6 vWCLkI0EEeq816SQ/tAXJuxOGIscroX2fP/diECslfGwE+GgYutfIhWIIOvstwfApOvBdKHivmR6FIqj LZSPl SX1keVCXDb47gcg9CEiFeIfOd6zyacyB3qxlubmt3qXTUszMvj4lq+CBhIuQbvBh3Rf5emy5kHR5f+0T cNWEt 6GRQkRP7g/RYQEOY0o4N5c70lr+0w0XJUEwhiIerxLOBGc49JNqH/PVARGYtEszTkN8041ldGkJPGj9T prZ5c C2R/e5zQ8LY0uBw0O9UPRjGsytywT5t2I+voTaJXUzIIMJpNdLVxaQmUk3lOD6hZa0y2jwDUJ8pPmix/ LlyPZ DgXG3g1ZXZNaG8UYkrNPUr7ZWZ9rNiTKO012lEf3l1pmGtCEDkG9QsvN/rAEmkPvYDPLhmCZljhfh2OW cw1XQ Yxn8OO7EQH9UCPllnYRDvjsajzxYHjz9CTpTpyZgc6IC9ZcB+sUMqQ0vb8GUMd291XrdoPZOLQAtoRiD RkdXV jlPZbfvEMJES0ARvjMzl1VJJJui96OrcY5oYXJsPS9DCPasurkba6aWK8AcY6cN7ChD6c4ztOeOtsxuc 7ZX2k ruIanhSwo4aN2D+0Kj/Af3rZcMwxO1hHryQvVtIvRQvH5HgDWzEM2EUv7oEdO2U3LMwurlQXHn0G0+i+ hkzTT x5wjQf1q6iDRiPymslKqfusRu3ghd51YghuOwd4DMEFM3CRWVVkkJfvDf5N/8oR7rzBk8pxRZS6XCGE3 xINHt ex0SM82IVOcm5dWdDk73X31FZlSDB4FByJYWzG3W5IBvBFH83iGtKpTZT7qpNbhLbojcQpAweAWCB3UT AwIG9 dxlo7UH6CKWXqMq4oqK7Wz5HpkHOpJlP2XVLyKg5oGIo8IXqhG85OR9UsQ55maO1wF9lnanKrm4qOknH vZGlu Rs3ZgCLcwGBaXWOwSE7Pn160POKbN1AbdEGeyhStDfN9HEDcIz9EXQJ1L2tpzqEhCWWfQ4ZqyIbxHK6Q cnVlV QpdTJ0TgTNuX4YxgoHjZ3vjnDpfJqFlJEU0MSYvLnTyPQMcKMA4EAMfJyUuQCKlVWA1VCWoXaLtTFHdW CA2MD PbHkPeDTMwHKX4DXNnEvAgNEGeJFB1TULpDvItSHEbEZA2IQIyHvPyUAVrTTY7LUHrNzHlHNUnQMW5YG AgNjA xGJLxPRH9PBPqAdOwWLFpSBN7DPNbDqFvNKXsHUU6PMXhNaCcVPSjSND7XPQgSlRtMIQrDRV2KYQkWxV wIDYw DLL8QEJnLfQyZONsVRY0GSMtAbOgDZOrNAD6SQWlEvIpGHVnJXD7CJOsKlZgNYXkCAN0BGPtPoXnTTCf MCA2M UIcKeBhBAQgTKD0UXVzHzLeZDLkCCJ6TSSyJiDjFOQaELZ2PQXdXcLvJEFxHUA8MLJgSlQoHWJpGWU1J DAgNj TaCZBlGXI1WRCgYqZzOSSqZQU4VPFwHdRvTSCfNOQ3BOJjTlWdIOFaYGV4MCOfTfSsHNAdBZC3CIRzFl AwIDY xBOX7UMDiNrJwSBKjTTJ0SUWuXnCbTPZiOZN2BNIwViVpOHUaYHM3WTGtHrBsOMSeFWH7IRZzMeVqXNO wMCA2 UIQjKeYnJRTxVAZ5BDUbVkQiJUPmGZO7XBIqYqXsUIQiNIG6RHVaWdLyFQMlITL6IJOdTuOoEVPiZXD0 MDAgN tHaTJGwLAB9NCUeOuEzMTLoBYV9TQNeDkPdPHLxWJF3UMFyQtQgHPOhBSY4XYVwJvBqCSPcMQP5JTRkC jAwID GiZCD4ESYzUcFcLQBdZUV0HZYyPkKcCGMkIDM0IWMkItMfTCQeCQH9RLKzOnYsSDZkHHN6BANbIbOoCB YwMCA 9YCJlSxJwWCMyIAF3XJGbPlKkUKMhCHX6UNHjEyCjVQOfQAD3DWNxBlLrICKcWSI5JKBfBbEpWWFoKSC 2MDAg QnHlFZGnJBL3KJRaQgOfTEVaAJD2CTFfQuPwZVTcXGS7NTNjApAhTIIhXHT0WYTdMbHaUCNoDAN4OHZx NjAwI VDwZWI4MKVjWfEmOYGcIAI0WGHfYjVgEVNwQQS1XSNlBdWrHXSiQQQ8TAVfRjMkMPDtIMA7IMJfCcMuY DYwMC Y2FOXrPbSpTNJcQLQ6XJAvOcTzBIKtIHX8KEHxTeRiPMVsHPL0GBPjQbGmVUUdDLH4RMHpCrUgGGYyDH A2MDA eJoEgNPOrAGT7SANnMeFgCUUfFYC5RHAhLgNtUQUyAUW6LYNaXaLlQCDtLTA9EPItYbVlLVYdKLF4NKG gNjAw YULzRCY3MMYkQcLxDZMgDVK7XCFjJtMrCCBeRMV0JFIeWdPhCSCvNHJ5XSCvIsMtRRBsGRA1AEOyUkTc IDYwM PF9LZAwPcUoRJAwHPJ7KNXiNwGyAVPrDB9+DrbnihRwHhbELQK5FZGfZK3xcya5IO7FfPn9UGYtAibuy GVEZW EqNWIaTRMwO5SyYMxgGN8+c0EwVQYsCyjNhONeg7snQKmj8qe8FEfWf7EnX4WzLsTCmzEkhRoBrd2WoO ZMLUy Ebuq/M7ZHujZd5T2u+D3Pec+YMIVtUGudmcrT4Mx2jLXGEly6eF5Ro6TjUROYNpLI0y9TzHcytZ3bstc NNAjn m/Dajn+AgvMM9imdOgYXFJaZZF8qsyXVgGYcB44Z8ywk17BoOEYncgNERvup8DfU6AcefFSGsQfTQudW dxCL4 CGWw7/EEAg2XZnh0eNFFdBrp4v/lqaHAbBzA8ioEIOxvLMMVwtweA+USjhNApnXGMdcj/M+6iyrPgyck Fcdp9 ZpOW/OOLjchGx6JD6gVcsxdKXYCyGiQ14FhEXDcUlUCHX74tnpy6T61ASxey/Mnjvds7T55sx5pghS6n QTjQG A6MUgHT4gT1OC6O61zV4E6R8yopPakDB0GYImNZ+3CXiUkf/s5HI3pSoNWC/bvb0LdvnmWL0zgWykoZ/ bwQA7 iVR7osyfguWBJIeZN8wrr+FPAHpD5KIoB7WkEYjEOoJ+GcTMt2LppVwd5evj+5KzjEIO1jibdl9tFbI8 pmxMl MVd8POMrNd4LmKT67hoAwRFIRCRvkWgNMcgFXX0jGKDleYdUZkJqp4dcVbA/bo3BtZFo6kbZ0e1+GjwE DIOOT lffKuAwqplEQt2NOeXJlZAYorSIoMfGW9RxW5JNnE8hS2hUo7D2oJSJNO+GioDWimW3hxkCHp08SICW3 vUfc3 EyRBG74/3pXb3YzizyycjxYyoGhXxmyR6ZxTqtX8x5oXoEvjAgpbqsqLR5g/f6gqvi/R01DjL1+B+C5O toeF8 YBzh++3+is3jryBLXRZ8dS+Rgag2ewJWNapa/oIYk0vCDhbbs9D0V1s2mYzO49ezDL1chL/p+WU3ETK7 Ksp2M mpFwq6dyb/+kidN74QqdnDYZILuWo6HMG5bi4GbIEBmVkLuJX6ornjoSwQdNNKma0XhUcq0P8KmyDBum i9GbG T2CYQvH93zYC7TRH3xdZhiImT2Co9dnCBlRN3UVCbIqi6T11IFnq/+CTv2Fu50+iJDOPWKKygLWYGl7E ObGDV EYnvDUD516tVY37iMabqvmSoojr78u+Jb1s6cTq7M7alErIgD3fTxnBZfcZDZZEKAv5ioxUkWClbHlSO /02/B iPJOBnGiOAuVF4LjJa+HbOhEULIJ9Yd2IT3VXgsOmoottbGepUyQcLW0lhJsBgCKiSvGXz7+CGecngho xT9K/ jWdxRtdg7nvL5E5ZMfdDjFJAqJAtYqGJ0zKoojxuixE/0fXArC8DBrsTxldpa2XcgMU2V1Mv07mu3gSP QiWSh g0WwX+E7qGR5cxKEbXlt/tz5TNkzHLbSSVusYJQ4mV65xEpEkrM72GGPWG58NVJ1M8Wd72Cii2E8hRzX F4DmM i4sOBRVY7Cj6k22NBgXx1161KG0iRdq2yZXdLg2u0+jFCqN3nlBN39L2clnJJVhWlRoGtArTjT8BbU7r pPZp+ raVMtV+kdjGfv8Wuscl993TkcXcsRwWF7a90t3t8+bYj dxvFfti34o/NMtzzj15zHxy7M+G11H4uF8BkNYoHTwInmN9kTCLnV4f4KjYxe423O0uQ9iLG8NEb75UQ PZZUg sPChBycU7beSV/jxXK9UVLKqZbmNKGu4BWLZLZLsAvmbpcEPzYlpEp5cxc/FyeUlyo88w2R0hUBvlH6t 4qr6e K2lvf0pGyOhTTce+Sq01i5gaGQokCVBLKmm1IequgGxz+4fjLMnXifBSRCSx7C9P5ghDlxAtN/tF/l63 wGlaQ iHgnBUGcNIGeuSP7fNur0c2do0cvdFaW2C4gLL5xgCa/DxRUOOLmQp9fG17bNjcUWqk8JN5j9hkcAx18 CUndC t59c5b2S3lpnAaaTfc8gRWVddJaeUVDLconmsca8RumSLqo4wtFoMHmn+nhpZ3Qfy85VXaBfaify9G+C ilvWH KS6DKUWiN9O2t/RqAh8ihKGT/zfqJQ09Jo1FRD2sp1HeVYDiBmRzNT8imbdlLhMvFGYup4VvPay6Q2Ut bHRlc m8YsET3PHYwC10eTX6OSO1fgWqhPUEdXd1+m6GzEKCrBvoYcHzSzpS1UK3kN4Ji1HK1CneRZ2PanDztU YtmE6 MedRY3LzRiENTGrYOA3cl+kRupNEbZbMISI9aL2pm0Z2+VRw7GabQgOD01A69+y0pTP2Ch4QEE4fA326 OUxmn 07bR2u8wlnYGpxLigFEuJq17ynRMeYffjODfX3kcEKILt6hxoiZ7u18oGWvk59l/EQdXrK82LyScoGgt T5c0o NhczaEJHKq14pOc6Me1K4dHYU/9klwz5RnbS5gyHgQ1Mq4S1LYYiC7wsfcjLvcvE0jAbjT8NoW/SGL/H tP8vZ YljJpWWmi7IDfgqca/f1D47zt1/3/w+JDXrUBtSVeC0Ji+oaHGT7etGQG6SYvPYQknxhXSJmCISa4vzC aJPvz r0xmC8I7HmUckw/gQcq6JlPzH1C+/cjJSreJBzdY4i/NDiXIXaVv2opCY8zE/y5uNnYEpycNY2eDA6BY EyULD 51SI/BYBfTonC12yQcKRhzsDhrJaiqzdd6omH4RFL1bmTkA0ofGhIzsNmdjgGGo+cVIbE1xKH6zQEVRa hrY3y 1hdSVAjK+3hA4WoUlr2Yf12jUFPVwBpbXQEA8DjYPDpC91LbZLqYin+PM4ej7e7NnINu9JPI2wsX0C/i I8wWx bvuSrXrtN4yUFx7EOwE8FDux0GdJZmX8Yyn0f4ZlZKdnbHMwZcmw4INtjx8Kw87fiqVrtiF/exKmWlUe 9uMUl m7T5leSC70JmHF7vnD+y2rxV2qbLDf/utUORWZ4qZm93zi3R+tYPc14gnyqacVMBqhA20KiMCTPfSodO mrE9F Sxud9qqcELCLVcqCfflu72FnSElB2kSqFZE1pD2WkYlkl97YkO/qAnHcFdicgEODjDiNMThDmwEvvyrg zDiJV pdecn4+lWMru7rsfgNsCwjKu3fKhFCaCDPtRQCRKInRvScYxeRDHRhqvFXthey0g2DUqComxU0WGO7KQ Hhj3U TrqjIJGU/b08niSU4BsQd+XkbTUyHTrO7Al3g+rikuMwVLTeE1MUY9o5VxThebtMEAXKYmlXUKX07cGV 7bPL0 A5PLYnU0ZUjTSONs0Gq9Bp9D8+f7UENRsz/J4IB95f80D4o6bK7rl0kA7vTgBGn48j1gTHt+ijhB6GT2 Bg2JP 8YiHiAn0BKEFkuB9/ntYE//dGqCqKB6tn6qJS7TCgsF/48+kdxFZZeErygiOzHokVHVH8B+1gstKiPcg KuyDc O1QB32IVMvfgDP7aXVthhmsJ5qZYIfuotAW3kCV98xgGxwEbnGlqinp/y0Opc+m+OJnvO9B0jEZr5ZOi I1XYd hLQqdTgY0XZSuCrlBWsy3BzFfzSlk/9QTL+Dd1nzUEQbjm4SiAkPSP9cmHstPztyvOtTusIOOR5GCUsO G9iag b0IX2MdOn0AMBrNlmiqLHYIUQqNMYvFDWdE8GfIMacDz3+q2VtTUSuYfaChTPqy5s9HC/gz8KwuCIn+U M2mU4 3iYRpbnSRFmj6lI5PwEXPj5ydXEAor8+36tSqGFcjl2UGIx3yR8fm/M/BfDEjg/Rqzxp7oPO9nrQD5+T du8sr +Jq/FjrFQfPj1d5jNTMvUCl0IyXsnLGuOesbvVYsoHCigEFF4/N3LoQx29KfbVcj5kKk6lVP2rjQFeof EwZTg 5+cCWJhzYFI3HFVDftojx2J0rlhz5i2A0DQ9ziiPdnOlb8E1HshWMvpVRgv7Fwb4mvw9QfQ+hjSLx6gJ v2OMa rtc4M4xu+BwRnMINuL3DkreJUHEk5m/j3H+OIAgnkxHFLzKo8Yim7sFegSikd5D9PCBB8hjrsj5NlT/O OLkjD qlZzneUAYydeDcUADUJg/kRJgJFmNFM8fPvZZYaYYRVz8gNPEzBtkRTJSHmwyMIcGk9Yl1NLi6clviYi vQIww uRYOg99dMkd8lQLUOXfooGlFqnmYW1Asd8OIc/ulL3n3uGTlYsKW5O1LaBVpUFHiL1JQo6mUdQvDwYWG s9O9+ W7z5R59z7Ot6FhBCIJGYv3qD1jYGxEbJ7YYr5seUChD5JO5BBNwjjf87OhXU4BCoAZI4jsPlCWLMrueA VHq4d zoKPL0sEyCeFporPX1k0KGu2d5D1AjoIKWBUycrcpxlcz2KlTIE5k4jtYLWAI+EI5tNQkp8mPc9l8YNb UtmxZ dWhFPjbzYt1SYlhHZfuT0bSHXbfsOYLdnCeqYcih4CSs33Qj/5PkQF8hRwTArCKOMinGtwbeYtFA23Jr U21Io 7L64tHP1jJRvDM+VzmomiAJZT72uJPPCBPTx+k2pYYE6F7PXCXoQa9kKEf1Zc78ye8dJETIHdpQWE7hP UJY2s B+yUUhzs6sVxqp/CHatf+7bDFFQrJrIb7mYINfDz8fyETEGFgPhgUQ8U+WnjzwDfloKR5yt8riUuP0NF QTeLF 91prwXrLGDy9Wt0Sk1GSPey/wnD5Nz5FPaWJcHY+FA2zPVz/MPpbkDK/eTvPhNVDfoc8k1Z5D7bEuY4z U06Cn x8ZXjFcuN1rs7tOnrDfU8wojejs8x9GyP5O1tq1CPyRxAdy4GOrxp/8+BJKVVEHrDhL5tlYWF35fnZOJ Hknw9 NV1IXzUTn3FLJLUigW293VRdaavyq9Qmmd9XwH4UAhCgpVUOSmZLNsdcis0Rt5FLPAOx66yuCC8fxM0I GADOU DW0QgKgBKA8dlFhbXkzzuCcErdSSOE7TOVaEO0wjzz5GL4MlWu0CDMfDoznvFBHCSLiVNTsSKEzL7CfE DIxNi 9OIDE+EvH1keBrmExDlEPtUAhy4QLshjIPkUDpQ4IbRaDHKYBTbmI+tfYXlFtELPLFtabbWiP0TPd6/L xUBgz b8GxHA3j+dWlxU4MrQ3CQNpqaDpLLmVmsCcW1JTt/ZvTC1eJIlDomTsLwdzFUUgVKsVZZWTmC1M0VUh6 JagVI aWN0o4HtERX4f9KQ4NAWSuHnVX6gLVF1zvffNbfPjVKrUq+sJF8xjNX7FomBqjvQ9ZsXSTYtnZbp6tPv GOkZk mrcDpDnMBAnyjNvJTLOP36FC5Un6oVeLXSYxStLFZFIQYfYVG2SLW1qg4MaYZXxEvTyOR4cglacPzM4W DAgb2 CkHcf4O3IggSEeeh0BfDA4PNWtL12nDA9MRI6mpEbdKeD4LY4TXHV+HkP8vmPscGvBfZcOwMLDzwyYg1 /JnpC DvRJdDMoYnPuSBNlhuQ5UVJgRMFJHFayPKUSERGCREMTaePYNxCOZY6UtSm2xbX8OolrKU/Uw7uc2uTf Xjp0X OEedTmem0+8f7/s588yt322ppzzb2iFfS2PxypEjPxDJ0rCOLczUMvCFCjZYGDTXQKGKUHT5hD6mIhEN 4JLGS 8Si4Wb5a92iT3FveWVGmcBo4E+PKcluCVZBYJcMLLZ5faw6ok0wO+hN4mqxioDUPwOTG+pcCLH1LFQrn r3nfO A98dEJhBaJoulcwVLmITTqhXmQKLJ5C9g8z5PxbvC4G4PZzbllBaH19XBiWigpREHdZanBVB/R5A2uge 4nS4L eBmPDpBI2YZgPX1LMUkEiRSP3Nl3lJY4X2OPoyKv5AXeuUqqngVyNEEFgl1ArVCerZtMNfEdMpN/znDi m2mJ4 cQPErpXBDw7s8CcU+q+tr6Gv1i1Ud0c2edF7Z05vE+rJOCnJhCkubnf3juUfECxtYTEp5vpdk/sAMPG+ Hb74z p83vbysYcs7Ex7+8fA6Zxzt4ZwU9Bt3ls6/QO+1k1i85EjqTQBHQivcaqKW0hnkeqw10kMkyEtboQT/H eJfHf huuHhsLnuYrxICq1wSg3ymDhLz7veHSjO9FcAl/4TWx1MNLeF/97l1S44Vp7jJqF3qMHD9LbMb2wHZaS 3fgd7 0LZWSBzLwNd/q1lijqzw753SiEjYrBe0uv2Jd8YSsl50upv/8FUKGjJGu4FZuWS+cnOxNOm7BWiOHHXb HySAd 7RHJgKNPJTnVYM6gPd2gRQTLHuUvcXMIZFvJZ6jNscYRcWYCeQipG7MpiQglxDvqPqxOk6GIUNLtDDpj QQyIC 0lBTzKl3IL1K3DySddWXpKlfLIhwWIQUtMPYwYLoGhxo8zzXrEk6SjUIddGhO87BI4TLEIXjD+glzAC0 2EebA k8kj4tJK6UR+AceAmsgmvgJrgTXgcPwaPwPvgwfAI+D1+DJ+NJ9ZpIOLaAWkoIJRYAYFt7QspIXTmxRq lGBpF CFT9cNKxYUNCyqFkRL2TYieFJNnRnyNMfb2hECmWI0UTY8S7wTtI5uuToWjsV6rODhKvzSPrdSVyPXKb CPaGL BDiAKkiFjJQtxDCSgDchYrpYEGQLyLYhPQTXy6j7hX9OO3ApkKmCb4PXXxzbTmJcUXVFGPOEowGJ6vUr R/qMd Vk5TYnOxhEwuE6bKBJeOXwkTI+S95A/PF8z6aZ/fsEgepMsNvqPDKqz2IGLNCmiCsyVqPwKOuOShuGsS Cuo7d Mx1t2sVrra0bJbtzYPQ1Of9yQ06nFk7s0xf4QibI/oHLonXUIvohvp6+gf0o/Tv6I/YTAYboxoRiHDwF jH2M0 4negk0luGs+NuUgNJhOBDqTotQokp1jnZExarO5oVqZ1DXqRx5tIkVhhX1ckObQYwOhOM4auvSxsZkEP L2Ols UwaJaMj5ru9pH+T4asN5Ib7n5nNUHd3uRcT17pj8th3F4fu5UBglF+QJeFJeBa+Y99xpVV/TaYBmgT5o 3mA+Y v6J+AHm5csghzxurr//IP86/6WFnUWMhdJijcV+i7rRynggJTYpmUdyrffvk8o+cXRy9h1jkFOGiPrhl UatPa 8teqydr2jjvN5my1EPi9ZteUhyxFsqR3y88uvGFxs+BVzBscaB8v9CXpw1mv2J1SD7qy82dLH9jF9z9p 8cuA6 JKjaEVSfOGN2SvVAcHEL0rH9JHbglENKubZ15ZJfvIanWkHMgAbvCFN8wjclPeujxY2tOEd+4OLikubS 47HW5 0XfbAicLe618Mbs1uP8cgh+0lg0l8g0SHlRODYd2Ho73M5cq4QliM35uekW9fT2EEnd5opCELFW7jj6E PC96w O2SVuamaK6OrWjxcq8u44PuL3M3DPRNN9lzrPLi+9Z1lLzB+ms7hyAh9N1op8n4kL+CM3DmoF1lCVfDJ OoQHR N95+/pL/od6y1tvYqPJHrTYCPuqlNItESvP+Tnc2aOkSTfcf3X/YG3ZFxfdX/9LLeBOJuThkJ6xCyyzc hX/Hk aRAJ0oA5254KXRfXihjFXQV8VU7BAak8Kf17ClGC7YImI6DhfDWaVsmcGSIblXOO9dBflrhsS6YmXH2D O0Yro ygT6AxwgWrU7lUlO1SsSg04K+3xVIrgvJB1OqSISkadPsLPjs+VF555CfDaAHmhOpFkCCmqHJO0XXBxU 2pB0Q 7ddjSr5Q4iQH6BBSS6FsfvnegnqnKHnzxvMNWCGdsMvsEr4ozA3bAfuyZqEh2GvVO+TIcioyfhDJjEzI 3Mk8y 7VtqsXaSOJ2Lth0J1UZ4Huw/fuqtS42dyuM+Hg29buheb4e3/L78+zHLO7aGst8zXDSqzHZ3PaegyTzT Wzi+M Fj8y2YDBA3TO6aFgbWkMBl5ymf2Tf/mOVJLejTuNUJDtk5WUgnkmaDjjxSHEYyvr4H4rEN8mzHfUBP7z Hyghl v/NeVWIOo5s3QRTau+mBqQQ3NPqgnPS1rF25Ngpzv1NsndAUWnz/uYcmLyLcn4g6P6AqeiU9kNA5bBO4 JZ2Xr dd2NXBDo4zuPf+c79jA7A8fXVKi4G4IS3zjmxRJjtoDerQ03/V22Eyv2Q9dwzrZti3rZe98EZS3temwz jefbH FsaW+QGdoeiJfo2JcylpAWeo9dnFo95dZz4kC2oaM/bov52Fb9uwU/qcIWn88dkSsHXe4v29DVaa+6sS p81fb U0If44xa6GSz5nWtzpan+ehebW5Orb0525nevXWcX8h45opdrVJ1m67p5rIMm4aq1CD2R6j/ub+q/uzF t4+EB fSU31QwIlIjRXDUAlq5Z4KgqNKqT+r9TpWWv/cm4lPDGoFb7wsky5JnNq0+gJKrAcIxuMZ1OmbQgln4x n4uf+ wHmoXbuK4Q0votwifLUk6uk7lUCtJrtVVHuvlbhj8q2b04c0AgGwXXrN6kstmyof9cPj7Lf1ikinRDoC K24ri 4fai3Et3diLFL7uDzyOGXNrljtqjS1z815TpWbmDF0xfBFfye25Lekf+X4FaxOaRe4hfp8ivY7EppvbL G8m70 VvY++Cr6Evv+/er/2aWAX0MZjypLIF6Ojk7cF9TOQiB4EA7KGfghOu1gRf9/ARid9jZnLeab1cluGMqt 2zDXM mw68lwUVPs49djbSfIC96SrZKWI+0j/NczCD92nONcJJ5I0E5pNA5wsPWOei3BGW6Boa3jUbzlp459Ms BdyK3 XGwzo6s1uMuKw+h5QaigjPT9twxS+Ua84Ke3+Ja7QqlpDCO7riaS+ny8PDiyOiK9cFmI+rl63Dr++yG7 RHtnO 9q9iVfNA/Y7Zca8nJi8h/dxOGV97m0CTAB7PC12lNg4qk2grhC+Tm6FGwA+lf65/t3/Jf1sQ6q/br+S/ 7c/23 //wIMAPeE8/kCCJ9lm9QzRVRoHhFfHW2sbgxhIgT4LXHac3EsVgn3B3RkZ5OvvSXjQNT9D2RnoNstkJv odCA1 LHRhVVKxO3LvgIYsEsa4O1WpUArgXDw9T1FuqoEFNv55Dk4jLPZuASW7FmM6VzqqDZFuOC6iAy6wmOQv bWlse RbSf3ZdwKDnGD4zuwapWl5doG7jzOSnX429kqwwtw6utaaTk2mfDYLgiRdtW0XsqlGMoAFpvFWwA00eu m1hbC 0Py665P9BiK3e8TPzwFT5DgNIlaFPZynrfOGYiTIUwC5GksTIoDWCeI8Z7fCDkRw1gwDCnu6EpzIE7j8 IvWEh alVqakIK8FZT+QlnqxwClVypFLCT2IVBcYU6viygeB8zAB8Kxl5FtCQCqDvNtQWFZKAwvodTpFeuTCCE 2OSAw KK6hlyj2ZJ1ThFKoHIXmH21svB1dPC43IXhkZ78bx0NOmOOvVVGaMqM0CQErAa3VzCd2BYXaRWAQCOAa b2RlL 8aunBzkfSEuWjkmGMSyL9BhHMo4HZIaGeOfNL6QB3Y0TpR1kMGfVE3cS1PoLOtvAB2IL9UpSZW1K0bhX HRoID I5OT4+w0AdTULnPh/Y/+3JNhAuq9UjOMOJVYVJIa/cCZBERHoOAPfECXxRNWSGBpnHUJ4ZZS1WUCARKi MSGBQ XVYRBVOWASKvpMb3nOCEyNdurGXX5KUFuMep3Qll2Aac8NjXGJrhASedEFZpXTG9HWgMQKg7VCpLCSUQ SERAU KRESDXUUMwGQEKMWHUIDPdjwOslcJt6iVu1nEuJeChmlXFha/8AAEQgAsQErAwEiAAIRAQMRAf/EAUIA AAEFA QEBAQEBAAAAAAAAAAMAAQIEBQYHCAkKCwEAAQUBAQEBAQEAAAAAAAAAAQACAwQFBgcICQoLEAABBAEDA gQCBQ hATFONYWLLXUXYJeXiFtUQGPCqBbQvcTINPDVzeZGjLNCStAHvLLES8SBELLLY2KUgD4A6PdStkeUBl6 RkRcK tgTPZ2rTwFxRxxBJOggTsAnbKlKF3psCI2SNsceYN7wKEPnsNawu5tznj8ulWB6s0h3vos1gD2/cRAAI CAQIE DHBLMYVPRqBXUoRKYmIVAYETWSFDMTTbJzFxfELRgzULU6MP1fNySYXpnoTCZ9WGX6Y14RRXOcPwlqvq NcLSR YWEanbcIHS7wVRg5rILo7Z31/OMpUIIuKXG8FI1hsDY7xG0HiV4wlbbrliX4dOpQ6nBU9xQb9m0f4uf3 //aAA yQTATUKBQZYU0S9Ea5fsAsA59af4A1FWu5upIoQXO7QIAjyj74UWSz0jCDVOXuNM+Jsx7pXp85Bst/+V w2t+A 9/zUMVWnxpZCjJPqLj4by4U+y6FtQCXMkd0ji13k0aYj+a8OHeTL3hxkP/dZhszCwaK8Gny6xXd/JrJC usxmZ JJr9Ch5ASSVmKOMJ1bt7v2HU2cD+xQjj2MMMt4CZlUW4OZhUxI9LdPnUvdu3+N6RWwokxg5RZ/Rent26 eMK5j 3Dl2Ch33DYWA60BCMynyZ4IrbLCXE8Gb8A+vnMtgSZhI9TMuqsb5L6AoU0YGCtBDtiyT+qeOa+mzY3V9 jrGyO eyUUs0ayhD8gTaINZovbFcjNLcjY6zr/I+u/FfTiC1Pg5PZRcdO19He+3uP1ap7le/WiFZEzB3lTZ+re Nhnoe O/k5ongNahWuxambR9KrRzvf38gFfFamANj0Li5cUPbtt37+7UviNqy4BOgww/O14joAUzYy+g+Y+S5A dV+sB 6T1p6KypQTaomnu5M58AD134ooDCIRdCiwFGOtFkZbQDe75AXCO736jyqorKS9kXprjtakm52UDEO7V2 5+sGF xP2LKo91vmsyllinXDyNjL3mVdbtkr04YQ4uk/T5qinLYE+EPFuh56abfHuyWjtxzZdrJjzJhMnKafY6 s6Pfc 2by5lsmIL0dJO+OIAnZ3lHqz17IK3i21ltsEhjkL8DO5XaBss5ONhRMzAEUTCyu5lIRZTj7o2bkbeCwW n1Ntu q6QDSCGrJcICdm0iMqWxTaW0ZUkJAmAijoWm8YAV8ac1Qd7ozWcDKPuf4m46U7Ta8O7O2hm8YlwX+WEw Cd3KU uGyoVVvI1taOIwStE4ED2oLDMRuaoIlzJ1AKxAOYzvwK9gXag6eIFuWTgYqi9i7iktHCKQOzylgkCLFL SUpJJ SEVyozwjTPXSBFrCPUIWkmdnqCLHPQX6ygwLOQ6HkCXpfsRAw0by8HsGEUjhxh8Rs3Fx6eQKFkEA/blZ z3dPb J8jxap5kCpw3MUxeH2Jj+uk5M2xxe/B+fKkr79ToQkC4yhZkAQwjHmLcz+slHtoo8mr64VCtCKTUq66u vy7cO bri+Ta+h21+1zeVfy/kFjiTohXgmzlGD8hIv5H8fZCTe3FW8Z10JKAKF82t8tW2E8FsYw0FQL7tunJzLN d0nrz Vr11R9lB1W+tPuskYBcYdLrqgAfH2L/cwim13Hsll6iVxibVYS+khg9fSVKIVXqSM0IcRA5n1oiLQ1h5 isHJ+ uqnaKyc4MlgZEbothQxmV6VD4YUVh5kbTaxjA5ps1s+QDAmCTQqGmHcDaHePtvj9gi9B493nvRKIOy68 6r4lf LvFIBo5p73NUTvq1gbTfxjte3cbk6FedO3ldSUm6gyD4AS58swXcL6Hzt9iZNE6mtxlTyZ+SAqC8uxRu Dpo/Z i2mJtZo1ds4L75vQwZ4ER6mhBemGuVmbb5s05UV5wqi5n91xxTdUwoXf0lVGHoeSoVcwbqZIquGJHnuR QGqW3 290lV0LhYTl6NO8l0c+5MNTeEQ5Y/N5f4Y1Hb/SJloREEvtT1Rcyp0G68aqiqYaNKdj6CHbmFKSDWXiE r8kVt OvpgGGZ7mrVHnbHwg+xI5ZdmZdHysa49GmtVa31JSFtGOae/Qx6c0O3kFnkk28b1hhSW4kaIhJMa2sDM X7S1h e7CBKodXGFqplcNf4KCHs+aEE1dPpaAkU96i6mmfEuS567KkttHwiOA11U7pKu1edLhzqLozMFk70m+m AyzwE xl202wzyu5pg9qpk15k4dMU3wYz8Rp/NSzBSDo1iDMtLGms4LnJrhYhOZIS4HGrZ8Pp9Qaj4OKexUh4s tbYZk WK9l7TzhWsiLw65Vc8JhBQfwsdktLNbzhInAO+EiqYeJVrGc6jutJefhgn1c0nxbZ1iR61BCdE3h10ki GN9ds AX2g0Wni3l4xi0gqDS56X6cRAcN+6dhi46OTNPOq/mZWWiiwBZ6InDL9DRI1k1GPHD5bbx1+3qApdFJI 2SJMe IN3umzwlKN+rivHJbvyBdFojdarVTeQk9OuuIe3yqidi4NARAcRhfwttcVpvTitGF6TbK40sOQSYISfu kklKS OITAvFYFCNjqijbTCJDEOcfnDSO5WYcuEgmU4MeZZOR22nqwaEtH4K1Qi7ffO8QTfANoSrSKs2Ui94R1 NpYGW PBUlBZwvZW7M3Dzyi2oA5pjdMqra4j1IiwWqmXd2JQRLUywDaQ8dAH9Vc2/s+/XjzZnPh0Dx8KfZZfUo PqthZ GQ6/e+wCtcrKsz2aoBEg6TftpnyyuOGnIEuHrXOr/23GSzH2bktGNWdQkhi39FkQ8lCsUNCmY/q/mU53 1n6hd P9HvrRHXBpzn8a2gbmwMiyH+7VQKSSUPC1KfZPOkf4xDN+1pi8IAZYccu6LC8Tsa/8FzL6u3NQj0qsFg qQOYj yC1oi5AJU9ge3v01c2b5CHFT+q+Dk3+ckuMTErelnztoSc24L0NLvzXChPEoMxYbbhf664lD9hwzbomc qlXTr 2jauTgTkNOHkF4YMPFnF+1DfzaOHfKcwyQZpI8N0trj+d2L44e2u3cnRifc8Ag5wxA2SBLq/SRfueS4w caZe9 7nh03xLyDllEhcXs4ji+2zyMuZVZwN3Mla05jxDcwG9Fu0orwHNx9YUeI83poWNSRyK5ETGAyOJnR46D 2np2T 0bGjgtM2q8pqSeGgVcVf54mTm10QJtYdmmBDnLJwWxf0pkrSg0v7syV7ONU9Pt9EPXY4pYe/lu4/1YwL +ndN9 IKSLzSYjDaJ6nRC9aV2/rYy3Exbi5gq3zog8jQxc4VxfdlH0Uu5vL7aqjIXpBPvxlC6qN1iks+sPUG4V djG1u ezdiC3q0LrpnYTFZwOitp5lVubjtiDJNuUqlmYzgWi0NLZ5QnxfPivM3e02DE3w3AoYETCbjcOT8TKYE RBEJd hCerNmC5pUpnjcNQmd8N+6a4RwMhkk5Wy1Qb3LFa1bKFzBI5cd2WSBohI1ANkGyjEoJDs2IKXXxvlQel /VfPe oC25kEs2ohHTcI35uOGkL7W+a9Op3Z4he6SRj5JDq4oSA7WHYWrYBj2K0Vi5Hwqg3nYn8ll4jLgX3/p2 P06p1 ZJ7BQz8l4iHtBinYI+k5R4b1vX81eivKXsrV3sjLAsauS+Pl9s0KpExZZLs0Wq1Tl5dtW7jqR4IZ+irJ rNVol xkPEmwOZOC9WqGOwm95boC0tI9g+lIgnL0aYgwl0plb7Z5oC9J/SbijH8R1lchbLXyCFNXued4IO8eaz h1LPT CHqGeqSWHtEvi4FYHZAVSXbkypbDXLDPsOHTVKHntfpgIDHUKcNGVBTBiymilDES6j135d0a5VZ+24lb bax9M ZvAI3NuD/iN6zSncnx/umcUYxh6dKZrNC6fgNfAV3wMoC6Y4a73bKfjjPVsH8rCeVkYYaFXq/Wm2zlKx 2YWdh VYiwT7s2fK3wiJJxGGtOEpftVSC6i+kdQaAueaREQeqJzLEvI0NdR1e/kJ1b51bR+yI9zu7m8rU10gPD xcvPM ZTYYKcMeeUF11AkqmZryPcmPhRh2qbn5j9xOkZwbakxtuw6DCwTCUZNyKf6qyCQtZh3Fbv7FOSP8oqzY 3RunP 2qdIhvcFKpJVpE6Ifw/KZ3Vmm4GtXm/YYxGGKkeIGZuocLYS0TZdVnwqjBulzf8UD5z81P6UG9spIUw7 k6D4r m+q/3tolV9uFaJ1tOAHlUg7tM90z6IJPIjehrATG45BlA4Xmang2EateT0Oseb1riA5ofOlkXsHTJ4ZX +sXRG QF1NuVO24Vz98uIu2UiopQy5o0Pf/28Yy2jHOy2o+mBQ3GHk9PawtifURxgepcXkjSKMThNMZcCEXjWJ JNSpJ JJJSkkkklKSSSSUpJJJJSkkkklKSSSSUpJJJJSkkkklKSSSSUpJJJJTzv1+h413TjcQLD9+9eIle3/Xz /wATG Z/U/mpHP0Cf5E/mZf3/QSfMY39xwPbYM+wKvj/XV86vilR8ytkQPhtJr9I5qZnxH/cCA2t9Bjkhtb0li a4F4E qCRdnyROVAhLTLsL1J0AYgjHklWbO5NIq6+AFBzw1u0OjVF9YuW90+o1enrh/k1T56YxwuN1E9Yh60Oz IzIz3 7AyrJRU9pLgvnhjKcP4qgVWhrxW/Rfm2hbas0nrJEsxi4s1Q8K/KZ3LJAUpB8lNmCJk1X1vxA8C+VXe3 QtcD+ Ktchy/MzoaJ2kxGVAAIK3q3035SY5StnlmKKmGC7Ew7sdI+q9sYnbEd0EoNk5VI+YheMP+k74lS/CwYw yRPSf 7CDsDRT6z+pY/yDT/x7JyEunDyaZ1ZAcbxR8HK9HOCF5X7J67RzNpHmS+FJv2hdSMmY9QkKlWdRx1Byz oZkj8 URKJdFQyImsgIClCJypnnC1GfzveDGo7B0fhY82BgNkqsyt/rP/jEwasZ+N0w+s+tHpfMNaUAa2NgTA0 Inffo bnpPaTw8TS/UY4dM4i0wlMn24v4Jq736im6BGo0HqRwrzy39HVOgEoh4y/El7oU8TEMBkMzN19y15Ovu Ixy/S dkJcVqXvz6OlmucStjiiyrTEBVFBpGEIAHdmdcuDNJkUBrsWrON9fBADsTNM51TPLhRqCHsHqKMGTlRr JJJPQ vYAAZDzmsqaRRJLVZcWVVVGg815/oZBwvw3T2pyI417i6oN/Tamv0H5saW25y/Ks0oL330xUG00kYyqh 1T60U 5BXhsV1vYd5QMSbC6DeY8Qx9a4zA+tvvHH215Cv0Z8z/YFQgQT/oqlecyRnKEnktp1npPf8NiQ39xxR9 sAk6S M8QCY87IuAP/Xv+n4H9dn/VhdouF/tc2FqIlCfu+ZCLpXoZSLi27VLbjeq64/AIzupfauqVYjTpjBzHD zmVzH KctK0MpkqIRHxbfebLm6aOt7HlR5f6/Cq2Cda7S/Qnhar05w0uGKU+5a0pfc+MLtBm0ryG14Qvp9v/YT n9Mef fjNMg+bl52/8CwbS1DTy/6P8qiSYGCKS3yMw1jrqeU4+PEwkuw74xhJSWm4PYuc8XhN19+p3/IVHw/gF yf15+ aG5EbrgkXrL8Yi4950zqT5EeHm+gNFsZaPUFuP3v5m16xG9h4hHTld+Rg8vwdm7eWNWoCYy2bGqwJlZZ bszKv iU21eeJdRkX0DZJ+a6v6r/UQY67t1IrvHqqKxM8r5KQdvs/4uPq/hkWPY+tqftTza2bLity3bpIl9D9T Wxxyk LfO/pg2VjjjJAJr+jMoxR09rFVnU7WVR7mniGHEmWQEPu0sLPE9ycvRixGI2ZDOTJ54yzdTKGGoAcH5G pJJJV ocatldzUHYEEQmROUVUaV3fd7iqchQOOWxLjHX2srj8pQZW50KDSBZ41+3inLw/CmENTRE5QYVFM5vHx sY18y o1SReJZ/44dga506Ks0HzbW6HeZ0wDmt07mJEI84yBySYOSFKKVJ3uxLCOFMeKGQXWjmakpFGFKv5ekM lPPfX 2wmTbZh9y+K8SK9z+s/AzosEo8VxdIT0M+sLjv/GuH+zB6qK9FazEJ2fGBIylT4IuHQOGZQlp+o8fsGq PH+5W T88xGoDyI1+m3vj6mWfNVIIH7qwtGnd6J1lp5SFRWJFhQAy5V+xsYscYAV3tJFbhrw5QsMnLERR1o8U5 1MRR1 EJHBAnnD6h/WB4WjVX2L+z4ff1JVyr7avroc4Elgf40v8cgw7ovZK5iT9FsbddHQabUvlFZV4FvdYRtO D5JRW brmVDUvcG/yT0s3Krsa9C2yzLD9i2K4hlaxr5w8ZDpk2um7m8hjYHj5kkdDmRfnLUn+a69JrJfFFWS7W iluPH KFkh85/rfrMOQUzwrbD9k5EcxVyrxdtT8psdfP/Cj3TI8H3Jco/Vmo29w0FJvftCCiqGAFpHMmf7XcRW rAes+ jIRxfHmvWHmhE8uXu03q5Nu1xfZ5joY1i2p25Gc3t6w8Ga7BpfN6IW8NNSBTVxH1Qik9zsRFkzuoztBq eOVXw i7Jh994edLB57wYLaiFTOl+zB2HyXlPFB790pBprrdL3vU+jj6LKnKgEeDrGoVnkB8KX2c1D7o43Xc2t U2ou0 LrARE+VsenLthRszIEAywLddkzUdxI4yyaPN/acc2DK9Bh4qcTA8dnvjqp/Mo4qoh8z1VFuB4pbAoGae IdLiS F6ALG+WJ6a8IixJZVEUEftbJkTG1LosGJUcnvvIwHBGots7kXiSLLFBt1TfXmNGUdxiubY2285IEotLJ B0aAf yBIMqJg9CXyQp/LfexYxA1H1s+YBR9lMuPg+7jcOgQmOL1Dt/csari10TuI2HvjA0KDbe5uSUVswng0u Gz8YW g8QWX1ZCyDLkKKvcPSv0lQ1ZH2N+woM2jsByzqWj5rKEe6ZUGz7+ISVRXSTbmngynStSkkkklLP+g6PA riM/L 5tuYusw2wnHgHwfLV2WbwP5aQYWPfQXNbAXB2KZ4ncX7XnR/beqfv2/im+2dT/GL4SnXJ9s5u7flBF0F vraSB 7W+K4zE+bsG5382D4VIMaV7B+YAHqhcn8hKKIFEqL9bOfB5pYDrGG4Dpk4M0H7+x7QleaDS04fdCN7AU jdQ6a iyvqMhSN8WXw2bjfpJvqjhm6B2wV1iNsCNMLtCCSlDshrT4OjQ+PhyS/V/Zpxk5IXXLYUTNgu8z3y/pL fxTfb eqfv2/ciujql574sIhk8UNWY3zL0zUmvNzUxm2d/JlgqWYpS3nMMGeuO7fD2wvgDguXcUTa8r6PXvj/d cD7b1 T9+38U/wBt6p/cCmaDFsD7e88wkDSijkpwm9J3wMKZsx2FIzXigDC8dAumL+Epsvh+UCJOWVS+Xf8Air 34/uv Robxoh7Z37E440bb67s8q42J3t/rknfntuddvWl1QxCHq9qqipck4C57/VmiK27o5qFCHRekSK+KYxyy SEpVQ ru8YTW1dFbtKvff12us99j5bbevba5Y09Rw/D38wR1sogpmaWgsxeFr8wltWC5apX+tdvVMzIxcLAqf6 G4yXO EgJ3+plouvbK907bR4of1yanLzyvEyfGL9NzMrdX+29V/2ex7rpYkWd4uyBZdMlgtodkMAwPY2K46m/8 9K3dZ b1dyLA0kN5QUMoai/vtJerMgmTXqPie5dfN9EimOpls/hyQF3BTT/il9t6p+/b+ApbWJ5027LLfzYoog ebeJn xjsrfT+xT7UTn451JvbzKGj1jhsRJA/THNjpYepSLqRAn3t3BorMK9smjx+jP3xeKVvms0N4HTUpoqJR Zh7e/ wmLL9VdLWTxXD4ecYlqoSU2BUxrUNh8x1HentXUba4NWMXcFuY5QzdklmiT3tAzcZd21KYTc9dKQ7B9D 3Uuo3 WOe21+jbG7A9ubtjcePYpL8W5XTrC8JxMkIDKM1sukRTqMqtR2RV8ka6h8AEebN5NlSL+h3ybr9DNHog OmZX2 cAfhU0uXe0jYK/PwrBbD9cplniOfNO9qC+ynQRe7NbQ2f1f3j4U0hMmWpThpGrt9/txQWfoapC790KJW S0mu0 OtX/R3Z883rueW6WY0a4snaAKcZ+m9wwkl6XivZfJV+5B+uaN30RbynA4jm8A+v9kIZdKe4kpQlytye4 /AKy4 gkuxos1Elw3CAL6G1IyNha5k1ZuOchEWu9sO1KKGLR8O+jEo13TtwW01eGA/ODOqrJGfIuEr8XiT1xGY J6Cvq JRDbKL4bEUJtGwB/yVfHCCmn956tE1MiG1M3+a7Sn0uMCRu7N5lw5v2ZQlCP4Ws2fDObp+Vj6VYF7Xc+ Wi4Yo E2UYrzkzoft2qMS26zpN2ae844p2jvwMihPm3NpaYdR+KN9lx/6YmZvMrY8jZ7cCuC6omd9zfdyVa7yR PLYEb i3HbrkvvuumJA2TAJdISrlln/S+trOMcfFWnZSSSSssakkkklPmf+SIFdUbb3Th3OOL+R1V4a6Dm3s7z mqto9 x5vA39Bao/3PTy9574GbHdScgjS7tyS4/pNAnkiS2HOIzbTWF6xrRWc91e3ZCU0tEuNsAh63+jdsqrrp fsaBI SqqHhk7hD0d0hh5lhG9h6sCajm3c2juxazVRnUQvHHNoT9q3ZJ4XtHECKzMTi24/jDXRc7GqAqY/IEz3 j5vqO Hm4/CKJykceb4mgVoEWc4uouhs5YnLHo691ynZ5QI0bQyNJOqUt1A7Y6vNjE2u6GcenZM6geflWvlDMU T+KZy yFAhSh1rrQU1kGlzj12CsK1lx5l+sHintQRgQmmrghbN3fm/orv6h/IuOo+f1H0MOmXpnWzPRIvd5lF3 z8ik0 IM8kovgdQtddxAZUtLFGIWcE0MMBJe9j4UKG2huy4R2W4rsf1tW/ABO53/SI7rBDpQPL0J1zkSJ1+JXa /Wm2u o6a1S8XEhmoUtYkkLzON/8AA/YqPyy+d648SYd7cWhm20XtTgWW5tEGtdlM+LTp+Qci/qdjYZbuA+ayP qti4u R2JkXgZ0YR0eT+Z9F6CFpxQFpy449KLRC9VP8w+k8scBHeLJphbUS9A8ypm/aekZWcxmQamXssvDdIJj RYH+L bp7+h3Wy0qx+/Itm6pr3s9Q9/cT4lxzhIpdefVLFDzkWB7z4SI/8ukX7JS3kSUYaJ507eU+1YavRHB12 lQ+zf 8G3Ta7Hj/vOVuH0VKwX0x+/BehdAax/TqHObqxuhXnv+Mz/lvF+P/fgvRfq//jTpQu2SYMH6N5h5yz40 nRSgH fNEAHFRINCINJR1zdMZi44jVcNCjQoIdTpBb4vWfYpw0JvKbglBBwbmuqTfBSpUc5p61ATw0HpyfBlK9 TR/Yz UTXgAqUlue8e4PaHlwqiEf0OvC+hZnYcFM3BgQp4vebIZFngqRzTlBMUPT5Ca7CZXdzh+Zohs4fkmZ1h 5rdQy M9U1adzo/C7y0tGC/CebR9Ra4s3xsIa/xGenjsbEQB+RU+SHuZsmU/nDlVu6cxZOlRxSHB1ZGxiRZHij kpSSS SSlJJJJKUkkkkpSSSSSnH+zWJwJV1hGlON9mY7fDZGI8aTfHK3WsQ7bK3ktjikehplD50HUc3/Qa8AmT ErA+v W6kS5hF/XkP92JwVGjokpbTNJpcpWhu11ySwLBhgNukKRWrTr+i9W27vVid9KoFaepWscZ2v06IfEfJV 1b6b1 IT1wY2288tn42l9Lht/jNH9FlG5Tb3w9tuK1PUXiVL8M2Y2Z774o61R5ke5y2yulvydUnXRR9XC59i1l 4qJGn v9a2Gf9qne99Ukf/HyHOJfVY/o6rGLIxq35w+ajQ13QwZOMdl5SlENMC1xgZ85M5jC+wdLeA6Nn99d7k F2spf 5f8203DR1lf3bn4fIrqWeypbAUQrosRasnX7GogI+D0/Xs/lSyA8TuvPq3Z9zddztgFSmTPol4eaMZ9G sAc0w T9dKAZarF+jbUXEG1Bf2RwIm6t8mJcIBPlM715TaPxQ6lC+Qaonk5txq34NyKZj7UgSUUEQPV9S5coIm 6PP9L r+u0WLhxvP2uylh7YdyFxxqoyJE3Fd+Oc9rxw5tpkSzEwuq4zd+ltH/mlv44qI3t1rwhxy3+b2TGMoB0 YEpHi gBWnsH9z8SqXi6R+mMY6vyb6ZBfWC2eXRuWLx94av3N2XjzibPj5g5m0yyCZtWj7Czn9OElWSE7PUnq5 DQWkC f68QKzZskl23qlfbqBp5+Zoaf60bBAUakLXF6X4txSEZQ7AQpLi2jGXhz6MeJfoWKJ4bhF0xxUDCQrCz ujLWt bJ9d6yqV57tzjouGrcWuSSCbm1ttSIUzVPlKTJiBT4mh1ARKOzRnc3QRx9QKEGxSODFKBUXC2J7N4FxM LRL2k X8Agqmqzokhm2URI4xmYKlIxJ1OhI4CW3Ww4Wnh3Lzq5GWL6P6P7f8ymmUwX1V90PW9KofyrIfsVtgYc 0o3Uu jmcgfezCXYgioLrT8iBMNa+r6LsZWtCYi0I/q7j+vniw6+iazHeIfN7KAn/hagfW1YE15CGOCUoxVtkr Dhwg/ zH8FFY1Ykh0tlwbHnAVTDFTtnvrcKFKTVhKLEXQUziynt5y13Cm+n9M+47qNpPBWBDrYdwsg1f+rfb8+ TQ0jc 7dQCWX4W356DM99IIOvlntSVohN7R8iQ9YmGPiX7FRNShOWPDVmeLLVE/NvcwErUUOQxi3NV3NSyp34E 6dRo2 XtA+r0G4qTz6x1k1ul6rZO8cwwlqI+p1Yo8jmjrZC56iYPw42QAPjdD67Rx1zWp9Nasi3jtu7kBQPNNz HvRkS F9Dz7a0Gi8CvH62O/gS6dy7emtxK6v8gyC4U/jIoFF/TMY/k9mv6Q579OD/qziYWa/fHwcs9lh/WJ8EP r31Rw KuSoFqMom9xhXQ0iREHHg2xN5mzyV6yU9APOFd+ZgN8kpRqb28VtaOM7DYWY0gsqUBi57v0yLA3dTFWB H28cB Rmx8I5okkbNptyULjkeeC5kshL8Ui35prkRBFQLK8eJK5FvRtzHDKyRSvCGpC28ZZiMct+f9L//ACht/ rj+K9 C3o0wtQvwXyZrPjCzAOj+T9RwXAryoeGuofpTygsIgS88o/req5cwCZjoX8eLyOFSQwbUbjJgagtHT+L 5t9Qe nVdR+eGjp1wevrVxyQdqHMx7OmV+u+NVSXEGxpJcZMyvQOh/QSG8CrFKjS74u3pGF7RZdBQ7Z+n5PVWd Xsss9 annfX54Dqm36H3Jpk3Xy7GVhpT5BfEizsBMLSsbKDBQKPzLGWMXCrwcrsIIQIEuhQaIky0Bv1r4Yj+a5 YakDx V6Ej2duGghzeOGF/lkYx5RossgKhRbxo+ewkZRID+c/Ns4Z+kgdGpfr223qUtbPmQ8y+FCpmytrPAAKa 0oR4I MpObQf8jeVtyDHKATfUAZKVMHkysbfHEOREnGINDTVyznfhALQXPmLJWOFLukojcBKLBCkUIREFPjwks pSSSS WjCCOCQPvidvcIGIFAxSPBLAHc0Tamdk/ABSn4/sKGFByQ6N+0DLi2n/eP6TKUYMzbNmbgtrMOXQWbUT JJKUk kkkp/9dMLC7iz7WvOICuTwHgYS8wmbodVtntFTRji0QeZhd7L4IRTAVeCiFrBTEEM9ThHXZbhmWhZRFn bmN5P f7BSE3uw2XxQsGgNjMsLTAgMubYHTWANkyTgsPlGpjHD43PIoUdTlDnVS7psmreRjbpMLSfm2PvNscvE UNDQm HyVXGeUGU5OsZaJLGkThHbGP3zcdqpBpfuTJFwh5ElUad4S0KiePRrxkT1VC6JJBAxM6PLA2SfVpllqA VyL0Z qQWOmCCMqy2YhD3trdvs5iALmHQu6V54nGd0+y8NwTRCpDesAtQI1PWK0Zyv/x0oojRMsa4EJE7OvPkD 1bGGR EQQSCOzFWCKOSNbJUCBFQQCCzVwKZoEqhFYNMC2bjaAiRhE78yBV3HVo8Zx5MdxVhAn8L81PX5mK1q/v 9zn3d +/v3d+3772oNVJzheh07URKTU9WyX5MgLVCMRIcuMpCHmpeFiDIKosrTi63BQhbznGRxBfjBksAfr9Xi Gm9Ik zKwDDw/4kt1+qCLICVTMnryGOegTejsdw76Uy8NXe3jXRzhlHX4/NJqgW8wJpwptx16pkxkPzUIcNhTK edQqM o5HepJ6fQkVlezPs52tkI2IwyjgnqnbyJ1/dfSMdAxglWVSizs8KxP6uAO4p9PwrCfmGJEOm33Wbr+g4 blA0G 27Px9ifMpYdLwsQv0E5WHLAKyLYj39qXOxPtOwsvzKxBcYVdo7DzTuNFk/NmKUiyRktRi1QukgWSqa/R O4X6r 5u/ERqinkBRpEboYnqWk09/12b5QtE1Dd/N+rq51x8GgZ0IbUNjT4xE+uNn4c3jvogPlqbobGe0DKMse r719f U+okRyx5TVZ/wwNz0Z35hDd1Wqj/JgccoymbHKgJnqJq+rlzxshWgfWR3MvG6n7r1m+EQ5lNmai3S7sT aPyMO pYC3J1w1PBaNPcaQAI1d/UxN/ZdhPND/VvJzsbgIf4KwvGgTA6szNOVUWPGQ5Zs+L8sXivVYUUtX63+H e/NzP Cfr3U+E+17KWvZiAh9YbUYPccu1+z/HHSbAzDbzlBReyM5iCNaWYrfIVteP2fEuDYE3ooNCjMUmHQzEH PagHL qXryQFicA7fRkSmMnwXu6D+cBCMg4/GWqLJwQ80Re6XE0PAWNVTITH4Di6vISKYZCzDUKDQlLhfIcwFD igSio uQeZarNIcAAXLCWgTp4RsqM+nBquHc8A1c38YP5FV1SmqBuVMRKI+x29WUNZVRWX6tL7gMqgONzcMD5O x4Cay Ca+AmuBNeBw/Nigel/A++HR6Ca6SL0Fg5EycVVFWLyOHIBLyQvGsVQtElGYnbtHT0DXEmTPqE4CWGMbpKWc RR8gL dHnrOWoVvmQpTxwObtDxsVUnIGeLGbqf7SS0YX7OX2EAAJvYbdBAIUXXBBpKSzE4mAgoXWdY+IhwhnCN ME14S iQS+BONCFXZLLwmScNuaf6XgtYHzDVKR4H6hKwDvPAV7eDCqEGMSzVS8IByPptE+vy5tQXBfu9jwQ8H/ uQEci FZS+3zF2X9oY0oGlgrC0+slRqdeZXWBcSZuyE5IhYzoekGQpHOW3A1OOQUtRZAP5rq7ARibsdF2b0zBp qN5kQ ItOUG1DYdlRYx38fx42FgU+gcuiddQi+iG+nr6B/Sj9O/ht3nPRkgbGvWLnJBTUuSpAuD+Cda8Anq9pC mNVOY pBzEdK80g7m0iCjlssWlzCfKLfsE3jFmRzAkCzCvubJeQZfH0rlrOXnQh3eXAGfR7QxQb6t9b94RrS7D 4rhx4 psDHgpeT13djg3wrpCnAslh8anrACzJu5qX7Uu0Pk1Fa3b0S43Pw1jgAg7mbrmiKK0a/on5JB/hu/Gl/ Cp+H/ 8g/zr/xZRcEAfA8rDNpQ9JcnsEIK9ozz1Dcn2CBxpsEf97qkrsiGjoSquFI64dKs63dNUp3619YE+xfm TDswm 7oax78il0bBcE27loToq7374wk5O63k0xCqSFC4uE0iMzV3l+xnC3xi4B/af0Tsc7ExSBwbpHo85y/oq ZYzFY DDfKaxJvAC0mrwbFjayrCflnSUlvln81bE591NVgQalvn8cWhK60a4s7mAF5xIszxahtJxTVj8g3qeP1 6/rMT gIX57fMaflpopMUBRJ3IdWSlcfm5FTwt0pG0k91VL1WKmRcMq6+7MS6otpSZXl7C8oNPsCrxz+tXpe8C d6h3l qjIr8tDdnuNtkz6Jtq9sR3jAy5+Ed1DBA53S612oI12wx3U8Xrxt+V0u5YI8Ic8gMnL28z4+kv9x/xvx rACEg CzLv7GoMsmXqlYuHs4T+YjEZuMuhOOgd2JyhhZK+8P/aQfYvPVfg8OCcSDURLaXv4cFdwTHu4QtGj9Kh hwWGG gBXmio6DkqmR1ky/e8OmEFdbhTMuXOqDWmFQnVkSBWXr9i9KfJmLXMdSnPQ90b8Zvgiu6kguPTIfIvvE PI71i 7IUqwZ4FTRnWCO0BwiPEqL4o70Ux+Cf33wdf90hToSf8T8DLWkXjV78xbZBUbsujVWElplVM2aXN5ZIl pcln0 9mn2SsJDn4o+gYbs20faeaCyyhGIv64LYxzlF2QpeTpc4So3HgeGsE+LMkHQLqzlQyP8cqkQngm4yd8U LsPdl Pc2Jz+dFk5xfyDzRO1tAcsbV29a6Pl6uct88z1Eqn3hUpUuNE6nLaikWWaRTddxPI2nxzTbagQJYEVMO 9iWBJ v2RvH82ICm00rXuDGMn+VEIoyS/ZU/UPDI44YyysrYv+Vnadi2k4ep1abaRZbvkAMEI/7k0APOw/2X1V hGqj6 kE0SCds+JD0SB7a/zIabXT0nrMH9FqWO0+loo57cFFpNsJFgTmjlyF8pJ34J/XfrJnjOynGF2uzuHGYv 6LfWQ vJGow7DeBwO7JPlD0Mfjkubvl0jxdx4Uv4oklVYinTL03aeOzb4jUfAN0hDN7LI31noCngw1meXyNyGj vUWtp 8zz66lgGifynv7g7y6KqF3b35+HX0d3y/In/EgB88vhQfp4soamjqXjtj92omOeoQ4xRwvuFysBCNc4a sed2t 6D3fb06svNsFDugeO2uUb8wH/gmtdS5JL1QwzbEV0td22geGpwyHy+5v6r+9RI8o1NUbtZkk+42Ml45F Bg5u3 2hlbJq5VOM3DoEoBVw+yLeODEgEbvetkSrAr3Ayp3ldsAep011banBmXX6xgn6pb4/2lIbb4NLFxcacC qKWow wpmrLcbOanq9A6pddjDuqDer8euobiiHEckSj8apwkKBlZzzCjjfmwfEdo0V9QbtppOw9atjqkn7BXoT Ww6rF yzptmF1VEsztvqfKhwHp8R8NKolW9hugnz8p92LqTkAL3VbuRkot3xjskp6a6XxkteZH3u46JszV+/79 6v/XA kDBgrHiP90GmplbEEMLWiTWNdaDZmsdGEckNu2QKk4y6kSeZTvs3cgmIr6u3k8iHMwh3wBTMlf48sgnN N8+40 OiPbkG60c1XG4MV25CIldEF9OrTPiNZ4cIU9Enc9+ORVAzo2JeZ5gt06qlqiYxL5TauLE0N6nocvc4g5 6/gNu A71QZasCAL1jmhX+Pr5HPk/ODX9f8imvhe34fkUku30Dio9Jng2oFwbPw34WnaXs4i9tbnzT7B26fsWG Dl8XL x//XZ7qlep/H68WZ4RIZw7y80+/eK+Rg8vCs0+cf6V/rn+3f8B/yY/Kz7ow1E/tz/bf//NnvL72Du+wp lbmRz uLCiXA8JXJ4tb0LeRoOiFvOtQIYjUhmZVHbpCIehgXnwhXEvV0KhnTukYOYwdXV+PgplbmRvYmoKMTI3 OSAwI B8cvxi1BP5Lxv8oI3U6Ue1HPZRmSBQ4eI3cEw9suNKfPxvvVBGsBf4+JvSuHZ9ovyvrSbrdHMRdg2EjG jw8L0 VjTqBaSDT9LJSuGGL+KttuiwOpJylEHRK6JFSiIO3kqbb3UZ6IhKPmX1WsfsEhQ5JccRzgUK3WkRUtAN 9CYXN iWg2ifA1Ik7KfzLQsJ9PmK88skP2aNRTrKLWeHKSIB1VyjcCTXCIxavxdfZ4rIULgMYWiDAGMUg8GUJ0 kb2Jq WeWiJRKqRFCeRnkUJOsqAVyaSK9PpgDqDScrIn2IGRJmTE8wz7QontblC9xyHC6joJFcY47shP1fXf2V ZW5kb 1DsMcBlRWPzXJKfXecKRGbuPGfySK2Cr836XWYaH6SiaTZngs6Tk301ThAoLN8Pe3LrjVGtR0TuIMxuY DMyL0 OknePJAb94An7yFyFtDrZiJKpgSUZ8RAWeJ4s9RJmrL3CfE7luAAHjO0YgOXXfF9h1BXB4Aq0JHJZnF8 h0IDQ lNX7Hn3MkmuLrXYM8P4Kml4MoypWkHCJ9QT5YtJLyImV6BY0+DbUnSO6ynvwwMks5VJYqg5YwShp7O0u lbmd0 qOKfRBIiZzWdA8A4KuV5eJIqJe4ycF0LrKRcE7kUQojyB3UsGcUxlTufXDYgGzLhHZL3WS7KRLTlzBGw ZXMgM LN0SWXbCGAfI0BdLZJ8MIUvDUPdXJqiK7WFviDfHQKhYODnPYKMM0hom6HHh5NlOwwsCQkKMyFcHwHrH jI0MT GeBPX8GSH7BrVxSfifMylfoHKoQ8JzYSCrJEDhu7LcNk3pfQRxOY6HlEi9syPBERLGys+u86VrUglOrl Q68Si anrP56Y0Oh5cOhskb+/1pmhUrovPbfKVDvo79oPjovFBe2bxko5HSn3l8cNzrq99P+Pv+47OF51LZbfJ drPsf QN2Fs/H9tifArE9tv9gCvP8H/+bynyrSft9HaO65yq6c547WU+mUkHnmQAmMHWC5BgaEA4wlmnmBY9n6 nZpNf ep23bqMRbrKq3Vx8MaxFzzEnZ6fkG7uP/TTOR0hqObdMjOiYsiDBs7gBus/iILall3IEoFjYARyDimUq ujWxx gHGWyjDBYAAdEgRzEnRigIvlXmk7zmdH0uNWOMDX3jPtzVbMiABxE/cdp/TivkUwxOSC2ct2YnEJBgUo VuZG9 mmgkwKql1XBGpb1DnTco2Q7S2qI9omLAqVsv5RDGcIm1QPJwdQSovzCTnnLFmXpp1HTRlUm2JcHW5UGU yODgg CHMET1FagO55JRKwCLmlWQAIXp3JCP8ll6ZtDtGkCTNrFHEyDyrWYXysJGhby9F1P5InjOCqX83+Pgpl bmRvY qiPLSO3BaXxGD9qfdn7JB9VrAZ9tNUcP5VRLq7OIX4zd4GlShHmAXdlOIJkXikIPZkaAtzzg1E1KIZgZ 09OPj 0OFP7hi0GtUnPmVKrdHEDuSkiBNRnlTPBbgdSDwIF0EM5LQt8+HuVfIO7qzhhgCgkgZRLuu4RvXnc2B3 5hbWU mSUDkZFKpYI9WjNByE12BKg0Nc7IxDEOcUxo4AVRoHn5+PwSyDX0nphhyNwqaPNCeb8LbWtl0W11DH7P bMTI5 RQWyJZSoLUFhIFVwMAGvHWXbAVMqDXDiDTN4MpNnTFTiBAD7JRMwGCJuBFKxZrNwSNYzZJCrQEEhKLWb MTQ1M IGdGMObBKS2RiAaYGFjPRQ8ZLCyWMAhV4BqJHE4HdJaSXZ+SsgvdqGpUulUUHY8LrMaEO9efvq9KO1SJ XNlU3 LqyMIiO53cXR08QS10Ob4ZmUI2JC0XyuRfinqxC0smh8TEm9CyT9TzzABlK6JyQ6JWW5JhcPDpJ40sXV 9ja2V zR28tGSQvZDB9PeNjMVWmNIN3BIKxDVZwAIKlVLNiCEYoATOtPbFjOIWrHMVlBVDsJZHhRVQ3CPKiXKD gMTM2 WjTtDJYvKMD8WKGvPJJnYJQ9CRMxJKPoDYW1HtKdAFIcYJAnYfHhICVtBVBfZIJmLRFkSSLqSKBfQOVn MTQzM HBhWXEfLYB8JRCvFRHkWEF9VuDpZAQgPRB7UeAsSMSnBPL4JYDqZXFdDJU8XPElLLUyXWI5IyRwLFBdT j4KZW 9ab1KlXyHsJBFsTZRbGwzNOLedKPTwxuHlUauyfi9NZQDwP83miGmjYstigv1RsyrcoP5pI3FPf6zoEm kwIDA gUl0+LceldvTpWfvTDGV3NFFsMF0lqkl4LR4FkkAyhG8RhpxhsK5NITVaE40ffGweJpiknh8OwudcdH7 vT0NH t9qqTfeeZLIeXx1+GgeggoAhNlcYEFZ0UPSrCQ8byir0BX9MfUAuS30MHOFyX9VOb0meUmreSZJoOg9l UC9Bb nlPbj4+ZyKqNR4rnfjiXgm1YLDqp4XtHmw8V0LWOiSdZ52rsY18kkCNaHCkBZQuSImsMNFIGm5TZI5bc 2JqCj TxREpdIKWqJhxTZDhxOYLzhaE7CA0NENAcSPVwWCZtbJ0dSSxmnLGlMRI3KoEvJZS9FeEyJCK6VZlcXF QnMDA nKT4+KjDaUT1wltfjBes7QYVmc4AlMof2Y7B3aAYqINl3J7V9OTZmX5GvIWDyX2KrSE0+IzZwWO5sife xMjk5 BZVsh2JyUpd1Z9jxnql0kQNuMw0vyVRiJQ3VoA1IMU2xd0EvTBAzYtSpZF0gvxprZbSlITTxo8NyMng3 L0xlb ii1kKZgNIX2Dr7OlNo1PVKdUnfczKUVVXWpEDM+AgG4pdQqmMk50hto1HnrReeKQ5ieUuHc9M+pLEhV0 A9ITM /MSyzJzM+zn3LquiKgPwJ17RHOIMCsCNru5KeTJfdo3rhLAynyE/Pqu+IqHefj2yjzlcy26lCCpE9CGt plbmR osWOeJL9OQN4jn1PkZbBsYZOxFYKuYkgXJIliDIKsQ4DbtZywQHCKM2XbjRRzW1OjelBnSKFgNPZcFRD +Pgpl qvYwJulQIDGwYQJwEI1xyat0SO2YVC4cGLHsZVOzWOELUp8PYB6tl6GyUmPwWVWsUSGsUlwLUMqiDQwk ZS9Gb 461M3B3AqX7jALiUXppLKSoChVoGKMnvlRzN402mkkheb9DoyEsEVjpKtOiSrA3JCEkOg4Sl280MPYqK 3JpcH JzumLfHkK1OSQyDx4+LeNgVI5clkbgVfK4VRWvk0ZeXih9M9N6fMRcRU6lw5JtaiiqFyOiNJLmK40cdP 5nL1d bozJsj7yLkxZbEDgrQw1+XfEkCP2eeffmChD0NXTsw0KgZbz7G7U5iYFqTc5vvKSaq9IxvJK9k5NtOk3 udE5h uXGxQ211fpyotw9GuNUabaCqGn7Tu636FqUnxCznOuWkVWB0OOW9ZZXuSWC4AX9EvSCshHFQfmjpHTWr L0Nhc WulxOnjvDD3XhOwKEuxaCpltDJ1AuWtHCZoWD02GIztHQ7WLDDyPJ90WB0gLJCaG0AokJHzJCI+Pgplb mRvYm nBQMJvVTDsFZ2jytz7TO8HHK0zdIdcNGHbAXE8Ql3CwOR4aMYnA8Ohxt0vMRbxTR7VV7ZqAPJ0N8VSd6 hbMCA gVKKlSqDeWq5jLjAxz9VoJ6SvXHUhOXElVPJMX53NBJUnEUxpCNKBK4PqKKJsGL9qxyGpXdE4HFEwAh0 MYXN0 TO1csKNcBUUxFCdeRHQ3ZHFqJST3BOsjXS3sTDkaIHfwO5OuqBTkzk5FgYC7USLpO58uQQ5+w2XjYZRz Cnjat ZXBSgQxDIafoO/Igq4sXFo7YmCivX2Xwd0mEchEmq5dKNe+LoLiZYIScmihFL7+rSDKJgYN2fweF9OUK ctreI FAp7P0Fpm9/inUb8LWO0hTVoa8Y8LpdyY4npqch5Xf53cE1JEmBi/pK4R4I6AXKTxjxSfLN+POxi/oFr 0o2gV 6dFsJ9WVO5Fm3PfHSPHcnyT0sIZ3k/gLGig22T6aJ9bmYA6u0M5et7SDphKOnv24ghGMZxV5oRhhzMd3 t6E6p A2Y4aA0enDslw9DFmh2gEh7o0ouLGKJm61WWn0iSKEqC8Z41D3006QhqoFGMok0WMWV+YUJnUIxnhmKj /3Haf tPtiagrRvSdFOA1jvThbNflwgFfYslAYFZnJJKuUM0kolc9YR9QiUApeuLdJWRbFSMpBVHaFSQgJBLbT W1lbn RsPVLaPELaAZIwEpsunbOsXtAhDJDdTu6EtrgwiCWtFeIfQBYeMc2+UhIsSG8fkjcwCtFjLDUbd6MbXq w8L0V 4yT8cpNW9XHAnK46LTl6SBQ8lo3FnSnSwNXTcJCRfDrsMNClrB8NjsDjnGL4BIh2+MrLrVI2vharvIkL yIDAg m8PqNxg2J1ZrTJfVeGD5EP8UKa4+WvUxFP8tgbkuWqLhKPZdd7TyQkm3A6ZcfX04A4NeoWDtK65+Pgpl bmRvY bnZLBDjSQQaZZ3fzee7LY6HQH4eFHddAFFhpxnoQXpmFK7GS0dlFNNnT9XgWMYeBVRkFVH+PgplbmRvY moKMT VkPSQoWZ1gxdm8JJ4HlqNliM8NsVB9O1RcuICte9W3Ft8TmRE0Q2VdlS34LH3TZ5caKdZrGXPmABPKVW 4+CmV hNS0aliewTwA0GKSmx7SsNon6P2Z3AX17N2ClpE99T0TiyIGgu2Q2Ah7UxBF6L5QuzM46VK8FK9ieYlW zMTQg MCBSXT4+CzJjGP8kdaugJcW2UXRtu6NrApb7Z4D5jZYiY8SQHV0XO4jwGtYuQMTbZZUHEE8IZ7YuzC3e Pj4KZ K4qy8DuLpKgVEotEKKiEhxWPQumFCBXKU0Oj20cu3VtDZU6vXZbYYZtRTRySTZ+PgplbmRvYmoKMTMxO SAwIG 6uvox5JQ5Vuat1MRMhJ8zcSYEhdw2PZSL3GR5uvSSaWOIjPYtgLYJ1LMLqOSQ6XVhyUI7hRHtfMAneVq 4KZW5 is3JiEqKtJjVxVYRzOiiZCKosZWfzTO9KaELTH5DerYDuX9IiXG6EKKPjJp5ZRR6yu5UuYjWsJeAiVZW vYmoK URxfO0OePSUjTmFcSJTLD7bQDjCsQMP3WRVxEa1+WoOlSL4ofptgWfFcBLIyg3DjPwo2P0UaEMMfYzQ2 IDAgU p2PhNFpQDXpPtNfYGB+IpunssLoEirGQFNnXyNpLZ8tdaw3CC3CXT0jfKwsSh8+n0KcXFYzXeJQAlOmP HN0cm VdtLeunxZdVgsVSIOtWXOsQK5omvc3HN0ZLA6ikGctLLGiYTAnPrfajALyC3DsYPArCORdj6NoVh6epQ JlYW0 CpHiO1AH4UQbXEZjKZhPfaiHEhYmFGvUTNRhNcQwyugsSb2FGwWAe8j8bTiRiFMDFKocu0ONGVUpr6is 7Bxsq dRvb3tmrIxg67YHH1po7QxNCIJXwYuzLIM5cn8NeDZHdWbCqEL9dstdsNlU1JBZgm3WoEnz2K1Toq0BJ ZXRbL 5PXCp0VQQl3SV3Lc737ZSKxHbjqYOCUTo7JLM7gc5RjBpSiUviiAQBnOloHXWyfXbMfDYGcJqO7JXKdX j4+Cm OnXS5uydwqXcZ4KQKdu7IjZgl8A4Q8wBSrHm4gfT4VzTI4gMQcQ4H6rQVwD2Jew9JFn037H8RkaKPrYZ IvRW5 sl0OqliofMSYuRFSmBYYyNl3xaDOpc5EboBB8h4AkMPItQTCrJSB+YvzdevDeRbqGDUSbPYFtUS0ruuc 8PC9U wQQwD1HoM27apR4yI0Sdt6NCseDyFTdnFw7SkW2BsuSoTQ3on0Uwzye+DubehmJtDifFJMBzWMEeHY7f ago8P E2BcMNvL4JvjeMMOFSsbhlhdR4sX8RqfmIVRK8eQ8NjbJWeGASuEjevF3WjHqHhQw7lqNVLw7nnDKGuU C0yNT PcHaN0DWxeCI6tRFKxwTpiUL7jeNSgJP1UETXDGMbhnZMaRRGmB7tGZAbpaFUuOPU1S1IcP7TcaAX5EH UvRGV aI4CcxTZnJnKtO1Q9CZ0JDHY6Cw9SLH6fj0NpElVbTjFsDTUnAmgIWNurTWFmH6JtDDZvALUtMmPoB4F idHlw IY1Uh1BsO7X4bARhXC7zwdAfxB0RDe21JmKiKWP2XZZnScBsD6Axo428zpYdzfRrAbS1MHHeAu4MIeGl MzQxI OOqVp2WgGIlCJlqMj7tPVW3OnXkDEIbSACpyN6hTQmjmKGtHWZ5AvDvSXS1SrWlPPH9PQpaAXUjIUAiR S9GaW w0YIAcJaelrRSYZPOtBCT+UbQ6pdWpgWi29uSCiHySQBlIm3Cw3WSa8U8cdWrwFGiihGHwJGh6ttCP5K D7/i6 J0xEVZxKfeGT+/mqycZDNJpA9Da/UXN0Lg5bKmTmgjHh3+/9f3LeZGswLfm1e+q9E9FPj7SJ8b4P4Qnj 7WNVw Hw7/52OS+PxpRP07Qw4qqb/lyxVj7Te3QHrEffQrnVXXIkenyYMRh90j6nztbj205r8Dl3YcUhQhmKrO SyNa+ WeNohvDlmKV7EgLzq4UXLp/EVq4H8ompurQdZ+H1p4Frq1Ei03Sah2oilqG0WwDHUZid+Myx8MxF2ITq Nwd90 1lmHPHP5nlE01ptVVpepQXC1AIW5Qbm/1l0t7IdGxDRIswuiMlyVEmBB1JSM4ho1YeTqZdWjTdQOCzNt oKPDw qVCvjn4X5PTSsDuItAJXZP8ZjG5NDvLOqNN35QUAeRrSjPYTQH2ZyOEzfQWXnSyMhMRRtDZHtzeFlNRU zNyAw IFI+XtggiyBlIkyCBRKuRDLbKX2zccp2XW1PxINqvwANpXP9NF3CCb7+EwQpSP3owzikYfL1JRToc8Kr Cjw8L 8J7ZrL5mELvMxt+AqjptzXtGakXMDTzOiCnQQ2dqsf0TX3GlNY8D5WpdESoN52+PgplbmRvYmoKMTMzN yAwIG 0duhb3OA2PkqnajJF8GPCfX47HBd8GBH2de6DlFuBhNwbnKZFiWrzFNIluSfXoCWgLHGEvUPJuI5E4rA UvT0N SN5MyJRejRSUhPfAvAMAMSx7SAW7xf0RbMnMbFxskTKAxAxdSXGzaEGTlxfUjCahqsb0ZBPPjG29zsTl vVmll nu1TfppenQ8tF1YYb2llKhE7VPUvNr3+KkhamfCnIzbGVMG5UXJqII1ssue9QP4LvmEcqS0OmafsaL1K YXRlZ 82buAecUwcjot4GxikfcG5vK2AHf6kfVuE2QFLiLb4+XbtaarPjKaaJOJD7ZPSuZJ8cbta9IR7RrRNeW 09DTU TmO7OBz4wgKfE7VHKiEf0iMN5CcceRdm5+PmCvJZ0unloqIfCkPPBvv7OhNuy1N7XZLsJmE19yhP12bk RUeXB sZRNsRFPtKGCBAm7FSR3mx1WgPbDoTEMvMSNsUzhZNVxcDKZcinB8ZF3DWDXoSFXwGTKyhQ1cQKrafIW kKEQ6 CeRuANN6YgLyKDE4ZXisWYAiEUIwCO0+XyLrWF2bwqncFwB3VDXln7OkYic9I5Z8gXVvQMv2C5J6LLBb L2NhI TPoB4AxCN8+YxFkTL9iivqqPnO5DYRov1LlRgs8T8tTKGNvImJ6HLMnMy1SQtCfPLG5IhMzHAD+Pgplb mRvYm pLCDN3OyQsCR6cnmq9HV8GnMBtXMMbDcKtGOFiCh5aNNC3IGLfXEKUOa6AFT6gr7IjEeFqRZiuDLWlYe oKPDw bEVEoG1PqSDU+DdL3wpGrhNzjYJkidfEivFHtCL2EPJ9ew0WjHkOaJTyrVEJoRibQTAzqBGWhF2LoIQE gIDg2 N9AfxSVlwd4UiIR2DCTyR59jUY0+k9IcDVKuNiuaS+BYfetliOhJLX6VsXKLL0beZZXIL1pAz4aVDBqE z7OzU 1PmiuMw3TRQB1WhiGMT77zDTSqz8/LquwcbKqQX8+q40QnhbVIpCvN8+zqkVpYRjDoEEkEyQVX9yeWrk Qplbm WfUeiEPLM6DVScCA5mvzm1KJ0Uzn9zQ4E7Jf8TKEZbIFT8iN1fLy9hbAHiKhBfKFQaNd5+BkDnOM4ody oxMzU bQYEtn9VqRhp3Q0HiSgGpCCQ1DfEuWDE+HykknvZpLbiWQHV0SlPlIV6zmgv0QY7MqUDqE8CiexFrD5T idHlw IJ9HwHVsAA2NMOAbGk7jdE1Xs4ObzMEbK3KrF00vsF2cTHBwRZCjQDVOH6ZzhjPDKYZwvqpglO1aKCUu NTUgM OWFLc6PLC1es6KaOtUpXORbSGHoYaqEJZaeBGajUS5MzyUlEVdzXo9XICTbWE0hb1ZwoqusL5fmWL5ob UVuY2 1bnK8jEo7NUS8xs6CaSsGoZMTaPNJcIjlPPHriJMbiEI1Kq462FGGrZ7RroPEcog1An606QdQwUX5Kg1 VyaWV uX3AhQGiqWCKzQ1RuvgAPWt27Gm8wWkVkOuHbBRasOXO9VIPeE2x0MBgoJ2WuG8aaRKLuT1IuEYRmB5j 0IDU2 Rb4DAJAkC0a8HCHyIQ3Pd5VrxsUdTMP2F0Vwg4IbvjThSJG6CP0PuOVmXjK2QB7+OhJlOD1qklbgHlI5 IDAgb 6VqZkl0C2kodvq5nFTvUZSvEgJbJ0P9ZaL8uSMpNu9uqS9AdWJkY3qMVyuqY7EmAwDckFwfHVZtRgCmN DM2XS 1TERFqfIXeLOVhSEY1NFZyKGFyB6JgOQK7RJRcDSIgCDgjD1TSnaHqUSUyWlJqOBQXM3sfc5DQk4XxWg llZCh BNhOgMkMmSwE6SQWaOPW7KYW7OkYeXocuBusouREwZ0ThOJXbOKAqq8ZaSo6ojQSpJC9OtPi6ajUPGPB Mhp+g 75UxRdrNgtL81KrgloX10O2Yo6sUrsrg+/5wliRdzcPvkLJBor49hFqaqPJt8xxix6ZEm3x6zCpbl02F +Pv+6 5GN15FZzhGnnNwaMH1Lf/K1nsxLlC0tp7ySkX6O/+tdsfxLsy3JzR61ac2q097ZN+yRbXasXDyDZSN1A krZK3 rumtwDZ9c4jXlYkyz03ywHVonGd6Dt1VmaNijYrB4vmS4pV/PLIR7mtWffPrIcFehMUt7pJjo/lPWtja 7NCqN oZQHeJdhMyeeBhhgFOYsmDVQBNbKzWkHnYbbQjaViu0pzfF4lYNYYJM7cPldWvSrNAtX/cdp/ApyaByw KZW5k h1LvAXJaUsWbEQ6tdslaOnW5FLYrs3LtYnd5Y0W8gT8lyWBcAbF3RKZfQj1NHAhtRNxppIBeaKNzIbW0 IDAgU y1ExWZ3VIZyHdSoZSWOK5CbrR91THCpCyGzOVGGWg1UQD8of4TcCpRxZRipCXIkVpaLMXkuCDurq7D0P 3RhdG UvT04+VrmvkrWaWctDJJN8KAVvST3lvda5OW3SwTQ2vPOyB4TDMw2XEL7ud7LaMmMtBiKkLVPjLamXQM wvVml lb2V8CAJkM33WQf8YWR6jg5AyYfCsZlIuFYPcDudBAYkaMZXqqmWVwQP7GG1JQj5+GdJkOW1nacrqEmM yIDAg i0JjKiz7Y88csSPiGLUmNAIvZI3WwWUwI70HUa8Ia6MaKNZkIkX5WQRhHh5+YlQcWM8dyetzAtFlJLMi b2JqC qw7O0A8HB46J4CpPAacR7T6UDjhdbmmR7McQAsrAIKprdOcG20NH8OfTNM1AbScSNUeYq5FIY4rd3VcZ jEzNj UtVZSeOceMSAlyCVKzojZaADRuftPsY6Q5OFhmiosyO8RmMEgdZWJzxlSzV80LF6EnONP8EvCrHXTbYx 4KZW5 tc9ZtPtNyKtZsULZtAwkFVBmmIJkrWY9MJ83AY50OI5MaVPI4YpCsECWoZ8LfSB72T15+PgplbmRvYmo KMTM2 XdDlAL6bdut6JB6PAWHBX0ZdrDIscE8hWAwmHUOaKpE5DFMrVz3+MgCxCH5iibxwLkZ4GSRov2FwIew3 L1Bya KLgrANuDTTzKDJjW2ioc9WYa9PrAwoxYJrNMbDpApBhGoX6KJJpCVN2MVQ1GgQnUes+PgplbmRvYmoKM TM2OC EzRX6gofo0NS9DnXFxC2B0oLzLnLL7OB0eTTOrY7TQTAW+PpwmmgHeKmnCAEK1URAzIO6munr9FQ5KKA 5ndGg gMj4+l3XmHXGnUjLOXyQhEOD4xhWwqJonsqXdVvdLIVH1TPZdSM9phlo5JH3LGA7seRlhETVlWXAxNqo sdGVy A8ScGEUeOLHpm9EpEy0rrFEiUO7KlMhY8GQ6AGmIUNzIWnSnmyAVdLkKWfPRFQlPuDyftbhTa5LWgTJz 5i3kN oGiECZSHmdv2YEIGWhg9ac9XcdmlGkb2wwtSfl76UFR7hs6BqZPRSBiQadASO6kq7FeOGBcMxGqPC0xs goxMz fhXGJrm2AxIyj5W1Avi6AAFJBnG9YQNi4KFQj8HD5Ri082COWfEtMpMKSMSj4VJN9es2RqNoZcSoNsDT BvYmo ABTaaTzFmALQxXen5BZNwCv9+LxRuFQ0fykuiYoe6ZGYdx2EmIjc9O3H9hZVpMu3wnV7IaHP2oUYuT5Z 5cGUx M9Rmm9LQw444V2UspGCmPCOuJS8pv8VpvgegRVJ5SwTiEVEzQv9lmYGsb1FagRG0e5UuRVO9QkSvNDN+ Pgplb rQaGpaMPVW5VrYhUV2yfsi4YN1WuSTjQ8HlY06fsU0hN1Pxn3PBpeNdHBlvRk2JkZ8GgzFfVM3pp2Qwn mc+Pg inxeFpQwxSPUD2WjHoBT4antc4CC1QxNAkF3VwqrXNSEVqkdrjqP9qM4RrojWUYL3iP4ZawYIpWUQdIf xhZ3M mThRuWu9jnXXQk5aaOJQeXK4pCEEcZqM8SJsvKV4gPNVkwOhbFV6cqTJyII3ZLBFHJWktrWAxPZUpX0d IZWln uHCiMIM4S3LqE1WkfHX9NDVwPCIeD8BwuKKwDmEnK9G3FH0ATGM9Xc0RBQ6rs2UnJaPhBeylXRJqRerU PDwvT NPkD5MvHWVbJSVoQqDbL1EaoFzdIO6Vz4IkB2Q8uHGvRN2wrbMphG1ZZz82XlVhODK4QNDtDxYvV2Ybo 291cm DissZyMlamXOGxAt9WVzRcFcm0QJUjHz9ErSHzJFocSh2nGTO2NXDjLSWfOHMucF6aDSjbuIFqUTC4Hy AyNDA 1SrDyOBN9JQluTZFaNFJmUM2UeGy6FWZvZezarZFMWWClCJT+VtC9adQinQr00lXRzXuQCQsHh8Ai1JY e3E2a qZggETqctNLtWRm8plLM7FY7/f3U4nIKPqZeiHS+/fnsoMEQRxB9Hp/PWS1Bl2wElNhagKm7+/7r0JfT RguWw l2s+g6M8HJy7AG8r0I2Wao3LKQvYq1/52OS+NowRB12Kr5dcz/jtfVm1Ah9UWlEfcZyeHZRKwahpIHOn 00b2r popb780i5Kp6RmMfAwtEuMQhMw+VmRpxeYpwRJ7CpDjf4SARu/OUa7B1zzwjiIqG+H5a3Fje8Df47Dbz 8eqgn L4VoALQGgr+Xvw1MoW5JBiUpt574tdUVAL0ncZ78wcYMuakFLC5PZD4Pfw/3a0x6SsQhZYXjqrnKzdUF lYW0K EV4fs2IxLbEtQvnpNHTxEfcKQFsrFNiyf8P9VKOsHAOjXBOKY0NbU6RRjDQzWV91NIDbUIHeBBRHV7Ja ZXcgM AN6CuHgXFGcLIRkbnLqJMA5AfMgOYR+KsmhxkTuImiLPMP3UWZkDR1wete0ZP8UsUVfvzJTfJH7CQ1GK j4+Cm KgBY8gikaaErdqVTWql5IoPtj2J2K2RuO6bYIrBkd+KvxteoFsRavQZVW0CxTxPI9rwvl4AW9LgXU1J5 RhdGU vT04+YedovmMhBqwLGXH4HdTxKA0xtzh3DP0JwucejGC9OCAdB40GEa2IAZ5ox5HdUaWnNHLmDJUfGye KPDwv AoYxUGfNUABwJWNmX2W5uDAuU3YXN7YfYZgkXRSuTubrMGCAQw4ADM4vf3ScLpIhOILeMMHiPydWOLqp RXZlb gSpNpuocg6JXMOnG80bwOxeFybewn1VfuhnvO5mQ8XVn6kiCzk2DPBdRc1+CsbdlfEiNajUBCJ9IsFqE G9iag e9IJ7WmmJslF4RmuwhzH0GDJZsU05fwAhkZpctwd2MayxdyI7dP8VXi3zaCuu0VDSrSn0+PgplbmRvYm oKMTM 4AfBzWA7urcb8ZY8OgKRxQ09CMYGyE7MTf1yfAlp6BSJxEo4eJE8SrzeHsc3+BoXdKY5opjtwFob3NAI gb2Jq Yan2H0AGQkRpP95rwI34glIPuNYhXJFfLOojPNCQRr5BEL8tx3JsKxZiTKlgJCTdQuqRSZywDKAecyR5 ZS9IZ GGhEKUqFHIvxR5aWNdlsRTiCFJ8GmRbBZO0YkVgQAN2KMqtZNQmGUJeDB9+XsWeYJ9jkrenNocgDKHvu 2JqCj q2P3X5zJVbPZq9L5S5VOEuM1OeIRXxA7JzBG3+MiQkJM6gbrvtDlnlOZIbs2QbVei1C2ujwjg2sDLoYh 5zdHJ wIT1CwU6EMX8mo6EdWEHyHxXdCV2ugephGrsmOZDqy3RfPds2G1qjwom5gLXlXNH3Qg5HeSw3NGUlMoq hdGVE ZWNvZGU+ZjQ0psQtoMl81mcy8DdyQlnGV1exWiLi4Q+aHFaH1N9WPV/MSyzJzM+jn7KnklTxMkT87HHS MIBiG Uvg9EqHHmwg3fxSTtzwB/Pqu+UrAcla0boqddg69zTXnU4NJlopbdQqlVRnPW4HWR5or8FdTgSdEXMvG CBvYm fYRVnmPTZvV2QdlSapAMTVK2MezFAkT6OznpYrXGF5NqKgUME+OtrnbfJdHufMXGV0WqTgHX5yenw0PP 9GMF8 aRUNmZYamOPEOCj7BNI5be9TaGgTeJKfnWWEdExaHMGdxUMqoZM8Pb594J0E7HhP5mWRmGYrtUVHmPkD zZUZv kgFnU369chycuh5SjlPrEHmgExTkTwz1NWVuZs7Yy660OSXwN0OevOYdeoVcFap6MDFgVb4+WvJyUV3r agoxM db8IFDnd3RuYoo2R9I4xXLsWE0pi5QpugadTeJkHMWqD15beV5wT2gsuoHvl6xJpnObDExuVe7+CmVuZ G9iag lqItn5NUMdr0GaYmh3F1U3yKYxVo5hnWNaq5AzlDU5q8LfUr1irO0kxTIoY212wivgxs3LrODkaoDlBt 9Gb25 3BrSciHgbGlPdXLA5SAM9FJKiMVY8SY3MzCJkvSFIedesDZDmP3GnpVjoaTwylPS9AaFmCDpnwQikmEL 0MzQv JLQpRR49WWfeTA0UGYEcYV92JF0eFKCzH6YxdHHvOOX+PnmzdmKtHasDRUGnDFElGF0dupi0KV5YHH1n dGggI YByKIB1K1L1GaZ0uXYgJp8ofW0PnYYtT9yXYxlkX2VvOhPruWhbQMJcUrSmEMA2GU6FMUFqoLQcXSRgA TM5NS LoTQPeT0FbIRCmQMMuTBQwLJwjY2TSihIyVVW3IKLxDAHIK8udy2WMy0RjYthgJYsKCrXbCoRzAvS4XY UxOTE 3UEB7PpEsCqdpWxkraFRwZ9PuAOGoWLNfk2RzYg8ccBMvLM0FoGoi9JMAI5NX8jY7UnlPEo37z5zULJX gPySN 0xFRLmvrCitWKedtqhTpQxyziIXwEsT3NMDP77A4NLDtpP0LgBO6Y7bt7gPRg/NSDGbzqOWY4FaIah0N x2xDy im5ZZYmro6u5Wair8wD7bI0ZCGcnKZcLxqQAlYISWPNTbCjJmShXEY1ckNfoBwvvvInHzhBBMDbUAJiA G9iag t5FA3YlPXbslRrIHGaPmWnRRKkRYZgNLIkZR0bjtEmZYUuMgGiSGSeDwwhtpKtXKS5EYPyIm2UalisqQ AxNDA 2YROzTq6+YeUaSN3sbitjRDYxQXNax5TkPtk8O5R9dI0eqHT2WTKvG36BTa2NEU8xy5RqUdB6BPFrASA vYmoK AHmuG6LguAztAL3RBm7+ToGxHM0uwhsfCDO5TGBsk0XpKrm0H0RuZZxGoSX4PV8GFb9+ZwWeZT7qoqxx NDA1I XOjj0LjIdx7M5CyqJ07B8QgmREzW66+MfmdgxSgSpkMUYArUyTuUC7dnmg4SH0HTS2tXMEcf5VuaoqlE HlwZS 4UK0kfQDEpM4CtZFZxSEQbLRE+OnrgttTbVbxTSETfJoCfZB4hkap3CQ8UsmUjvZ6HbGF5X0SlbRCef3 J5Wy9 QvEB6P1ZpeQ35HM6TW4ouPbI9EIYfLBFGEP2+FbHuPC8adbydQIN1SHRpb9OuGth1P5N4PE86C8PwdI2 0L0Nh zGSzk3Q8Sb8DaOV0H7VfbM68WE1IS1nlSkM0ZVVzMAXKGE0+TdUaPU7selrrRHB1MJDez6OkCmu3F7G5 cGUvT 2VVIM4QG2eyJpH2GVWeDSEFLN3TX6XokU0sTt8JZN8yy7WdPhA8EEBxHEOeCllJJPnaXLGKXS3Tx70di 3VuZF U2dZYcRUAdXMHvTBU+XjnixfFzMgrLDGJmLAKhFL9zqlp5HD8Epzy8RZBkD6Faw5Jmsn2PNWQ7KZ1xyK ZpZWQ qDZfjPXC6AREmNDI2ZGzoOF0nMXhdMCxcCj1QIO7yv1KaPeJ5FVMkNABoZkxFUNjsDYbnOF8ZyFIYX7A hdGUv M2WcJN5MNPYaRg9KKO8sd5ZkEtX8DOWuUTKxQtyZEWinGNUhI5AsTEU+RzD7bqYtbTavLBcltnDedMZd YW0KZ B0hp8AeBjS7BTPjRGMhTwtVDPhkFNHaI8JvYPYgSKubL3GrjUNnoo0YdPO4FECtB48oEG6+s2FiVHGzO njaC+ IXhbaqiDgDNA2XfKYVU6ebIUCRH1iDo0tWGSsIc9LvT5PjbzKl0JBYV6ZlbHPtxgVgs931bWBHwaSvzv uukYJ KKl7at0dmPe4EAFXNngpiwsYbaVSvMF4UTG0wi1LpRxV4ETpyIIKfXbjMOYkyOLJmZ5UinZltINZOP2L leHRd D1CmabHxCHNsBCJlXCZ+GcpmeoWmDvcUYNFpLFOiHD3ijqh3VO6OCI2xRYT9MLvvVJGDUo0VVT9id8Vg CjE0M IgyLYKvVciJJRvcOHdhKB6Wt418I5B6ZmD7qWZsGWoyCYPsYdAfNRTubmNqS927eiqusr2MfbHjJGjeF yAxND DvITPtBw2Pv678NSXbP4QsyZLnjgDxLPKnSJYuAe2+RgKkXF5yepzrHSOrDKLgg7ZcQgb6I4Z8pCEhFR 5jb2R icwerXtQzXNRkT24lsA3fA8ripiBfp3rTydXiXBynKa4+FxDsMA4gstdiSPBvJEBni3CeTwg6D5O3gVK vRm9u vMOvf8AxiOY7g7RgPp4oaO7mrFXdI743utazkd6RuYPguoIhBw8Bz484JkMwyKkpZuKzQCZ5RYU7VRTj ODA1X J3YuRUywWFBoxkyRPFgA5OjeNhnsJvbvFI8UyHcZBegcSlqnWB9AdMzYTQdHT17DYutSM7BSDJvEZ96R C0yNT GaL7MfkKXlYOM+AcrvciOcXaxPMYSqPsZhKC0ihkd8VY2QJT2hjIqtQUGuYOQ7R9L9ZqE7bQPtSx1npM 9UeXB wB3yFBzygQ0LrJtOnzHqdGYUhBvOlAKS3UI5JMXBznSHpAEIfFZKiXvCtMFAmN7UsHQVkLUFeYLJdUQp lY2VJ jcHoMCW9KhRzRIXFM4cbh3IXj3WsDbxiGPgZSaBuBaPxJnW5LGRuMAJ2IPW8InKlNzpyZhwmuCGhH2Wb YXRlR LWfb8GuJy5kpXKsUR6GcPvq2RYGF4CA9fL6CmuNUr20f6oOFBIvQgCS5fADBvryJiwFSdmyueZyRgyxz XAjQl I7CWAQ38H5UADbdK6BePY1J8on0uENp/ZJWYsgeHXM8KcCzc8Dz9fyqbv0TKZnlq7z9Dddn4bI4kM1UU BjfAF kBbwIYyBUJUAXVoKrTiPcNSJ3dfMslAfqytXfVxcVRCQeAeDcNP6ftug8VG9LhFYlkqZiLROrXHXjJHL vUGFn QQYuRI9shxBbBAUkTXFaMSZcPxoqcyJyDXX3ITMhDt6RtllinMKjEXL3PQYlTr4+YbXjNH6fxefwISQ9 IDAgb 8TrTjz1W1L7iE8piRN8OLGrM61HMh2QPK4bb1IlSfS1SiTuBWUhGagCAHgoM0BfbVcmBK7UCu0+CmVuZ G9iag xlUGN5EMSrn8IhCvz3X5MdNJlAnJE0TM1TBe2+WfPxVG0xaisfJWE0FPJcq9VzEms3Q7TmtC75E5TlrK UvT04 +EjpeedEfKfkATZCzWBIhDZ4vbax5JK4HNA6rUKDic9HnuhmrAAxoIE5AA4cdZIAbQ7VgPGOhJiUtMKM +Pgpl vxOfHmcOZGHeDLBpTR9iuhg2EY9LjrXqlR2HrMO6S8SzmYZww8I3Al8CiLI7I6NuoK63AB0MJ5ioYbX2 MjggM CBSXT4+NjCwMA4rwvrbNLOcVGBye6YvSyr3Z6W3TD70G1OxoV69B2DwlEUnt6K0Eb1HzEC8R6NryF29K S9PQ0 jjNgE4ZhjaGMUCWN6+MaMmJT2xiulvBPLiUEGum3ScGsd6W7C6cZJzZ6AFOZ6SV3lgQgL6AcagEHQJOJ 9QL0F xmQ6xJt8ACJ3pm9BqToC0QoFnNBYsTzoOIXfkHSHFOW9Sf47ig9KrCEA9yGVtIFUzKmMjMPN+PgplbmR vYmoK ISPhTuEtQP4jqna4YE4Yioe5KSMmB7Ibd3Hsdo3KTZP9BY2iqIJjCQSnAHbdKFJ1CCPqDYV1IMkrCH4i NCcwM SbbRe4SPL7dg7ZoNcD4CaDuLRGdYhvDKLpwLSapCU9XcRBVJ4JkpZNrJ8GdDA5EKZYjWx2SHB8fa4ZuP jE0Mz OhSEJnTojRMTytXKRkN4FtVAE+TvW7ecXcdQlbPUcqiuBsvZPjQB2IKH6ma7JxCjF6MeUgEPDeMgtOSE wvTGV nN6VeUHSeCFvnM9BjlKIcwe4UrFF3WVVbC62lPC4+q4LzALRbFhicT+ERhidmpJjVIS2KdBWJF4pyBBN QD0hM r6lHQRlRh0HdO8ZyceFl7HSRZ4YzyWYydnDxv105hSELciEgtswcnSYIGr5fy1nmVa7AYHXVlzunujKp dHJlY T3FJA9ea0GvAaS8FqukROOdUrtHEJogTZDvW5JgnQuxOEEEE6AdcGKjK8ZeviVuBJI4LFQgDNH+Pgplb mRvYm pKVWM0WTJoRB6zyih7CT5MLW0cCZO0CIEtUMVFFt0OJN6jv1LpYmW6PGXwHUGrXpjVKVqbUAxaCO5Bg4 50L1N 5UjM9nQArZGpiSBOjLmQxHHOiziHgI930tlutzg2KjwSgPWmaTaCwOCUnBSIgMn9Sz867ZCSlB7IkcKR vciAx NDQzIDAgUj4+DlFoEX5wzzppMGXsXJNcl2RjQab1L1T9nCIvYE3pm0DkqrnyUvUuWAEcI45gcM4pO3ou bkFuc 4fPrkOqXJrkWz2+IkEcVM7ahrcyWHKnHVAcg8NtDky9M4Q8rKOnZv0hcROmx4TvpRV4g8DvPf0arH4if WUvQ2 79ebdtvv2UdTArowQpYl2Kj605EaOapEwuTtXuJXW6TBZ9ZZPbJNI9GN7AqWFtdVDRbwzyLLHaN9GeoY hlaWd duNI9HmFoHOovpUofhLU4RxRoKYXnWK42VBbbUS5OUHJlAX21TQ0nPDXdU1OktTJvKHV+PgplbmRvYmo KMTQ0 RHQfMP1iufx8ME5PUA7aaPghDPTnLMD7G5G0YnC4pOOfSz2ymR4HiJRnC1vIFasrY5AsWdMccBgaDQLz NjEyI FE6TH5FGGJvpUEyIGIpDIQtYTHdKWJaB5ZzBJP7EwYrAIYxHEatA5KJszBtLAL6MENkOCEVO8xvd9YYp 2RpZm cwCHwETfFnQaFlGiU3OLYkTNU5HJL6BdGmKcafXpttdNMiV6LtNIMuDQTvw3XkIa4aiINnUZ1GaMog6D XQM1C X8xX4OtaFBd89o7iONNMaEvFV7dTYRalxKxpFFzejetYmRsoqyXHiNfW1VFVC28O1CTDeqE2QaEG7U5f w3tIE j/FJTKjeyZUB5BpBrr7Ka8ijbqo2BXPexb9v8Sduj0aB5pL1RYYtbXToJgbXLgENSEFG/aVsCmVuZHN0 cmVhb DqjndRfTmtEKKL2MEEjPN3ksbn6JC0NrGQzmjQxIUI2IpGiQGMcYENkSCIpWA8xveAjNJA9QmFvEQZsH mlldy MqIWN3JYCtJc5SprnuoXKsHIP7JSEqYz0+RkXaYL9zlnmyXZZ0PFMdf7NxIwy7E5Q5dI0odCH2XMCfB7 9OPj4 YMA0kf0RrVdH9CObsLNXgIitKWLobQ3XpdVqnOL8NKg1+PjZkPE9abdvpJJG9HPHrk9WvKjp6J8DpQOn TdGF0 XL7KDp5+CsOrAN0ybgqgYVZ0QTRvv0SgDhs3W9BskR37L9ElwIPzN16+RuwmzhYbUxvNITJ1MQNpMP3h ago8P W8RGQ6aRCBtc7DrnlavJCioIX1HS3jdXTAoV0MpZRD3QIIfJAK+RprfagFaWbtYCFJ2WBHvQJ4yadr4A C9Fdm OixI5OuAB0B6RlfXCtn5S1Um0RtUY6C5DqwU72GA0AF7ndDuT9WGUbHGYQVJ9+YoQvNZ0uxgjhCYHqXG Agb2J aDhq5A3H3TX30M2EebE87L3GxeGCyp6X5Hw4RrLV6X7DupQ24RD8EO0hfYyX4XRPmYFFTUE7+CmVuZG9 iagox BFHdWAHvm4QnVgl8R0T4pLEgJ9SILX9WC1ruXnJ4QCYuNYJGTI9YM7EuvI4tCm3RMN7ah9OaUaX9GMMz MCBvY rrXROxeJBVEUM3Zy66ai8NcHNF9xMNpZSY4BAZqHTR+TtsvfiKqBwhGJKY6ZNTrIW9swxd6IJ9Bzyi7X XRlL0 Hoa8Pvhk3KUNV0PZ0iwYYdKEWpUSzjWBB7MDZsEIA8KYelXP4pIFvyWYguEa8ZJN9rs6ImWiM2QGWeFE BvYmo QBIfcXFznGG0ErHAKQ9GdzTCeG2TsRY5XUOEkXz8RHO6mw8LrPxN9MDodZVWtKsdVELnnKXElG9JdBJS +PnN0 miLotWoiUWkfgbXzlQZuNF8MKV3mu0TnElR8HWreLYDlDjyJZIkzLUJbZ8AsSTLnMJoiW1OumKAkan1P bGF0Z UIgO01tLC9+q9ShSTZyLqvpY+FNflddwHfUMA8OhWWNX3gyFUPZR6sQq3pSBBlBg6BiF1ZirhHu8EZBX 1AwgG TejwZaa320sJYNcbFxuzrtnSMZMs3xk2hxIn8CRXWUmlcoidPqaDCyMC0XNI7ng6PeIgZ2YfHcXZDeSr oKPDw oSOSeJ0PtdVzyVUFNM5RisWRsF7NqcxTdXIX3UaYmOAU+OfzeixLzWpjXRSR2EmRfFI6gcvx7IM3GXQ1 wIDE0 WqFpIWBWZy2KXS8ix0GrQsA4RjMiUBRiGnbVKYehZAaqPZ7Ic287G4U5AoH8aGItJEndHXOdNgOgAABk bnQvQ 462ltpttd7YzbGcCOuyJoYiAYD9TIWtUk6Dv040CQSkS4EfcIXrlaZqFVX5SQMqMv0+SqNhVV4qicvnZ DY0ID Xny6ZyRox8F6A1rLFlXU1gw3OapwdkXrNuAYTiZ99dpL3xX0eakeTds6iWheUfZZcdLz4+WtTaBF3ibo oxNDY 3WAJer5SbLuv7E8D7nRNnGm2uqJDmj7ZvqEM7n9FvCs0lrY2zyIBiS212sspcer0BxFWkxkJnIq6Qv23 0QkJv eLjaTuMfFRU7EVC6VZTtFXY1DC7QtTFlmOJZkikpWOLrB4UgzPghyQxopJX8TfWnDWfyxCkguKB9UsKp QXNjZ Q43AMoyJM9UWBYtLF85FG3rLVUpK2LadXHaCGY+JrcgvzFfPcyOMPW0KyBqEJ6jvoe1WY8BVZ8cjJhkK CAgMT K9K5D6BkN3cFWgMy2eqF2EbILaW4pVDawpS9RwYeSofJdvXFRvNsClPDI7JF6CCVRfwAIsAAPnBWV4QQ AwIFI wJ4PfVGB4ZPQmZPJeMPkfC1AEphKuLNV2VkEnGMWRK6teo1OMm9AiWmliUMbCAnVdRtPuLsH9GBIcKWU 5LTA0 QjPkWxiwQfbsfFEqJ8YyVQJbJDXsj9GmOd3tiLKbXA9FwEty6BIHH2RC6dO6RvjAQb49e8sHXKLbHaRY 1xBZH cfoJclURzsschYzHfdlyCJsMtV6EMJM66N2MLVyuK3WlUX5A0cq6zXDz/IBVUoqnDGH4NySrx8Se6sYi sw2NK Jgoy6g8Nlvx9nM3qT2TNNbiRPvBqoEWzOFFNCa5fXzRnPgXGW1hwCtsDctsaLvHenAOXD6XcTaOJ1fiu o8PC9 AlNIvsbLzYSJ8MSZbERGnVZHeFNHmUH9ukwCqZLY2OBRgTZVeUaipeoMoWVceKVBqCr9VkpsrxHDpZFp xIDAg Uj4+BfRuBU8phwlfADT9JBEbc3ByTjt3B3H9tA5rkCE4GSDlL07RRe1OJA4mk3SrFgV0FuauSBSiTeaT PDwvU 1IerXnbED7YRl9+BuEcED2wvzbaORqyOQUrr8FaVoc7G3BaSAxHzWR0XL8SSf7+JrUdTM5bfafqXAmiQ DAgb2 QaBdv0A5KvsC25F0EieBHtY30+WwqbpzNuAwzXBLM9IqUqOB5svzg7YO9XBH9oHERvs6QzjkaeEMeyOV 9PQ0c hUXMsZ4QxHZT9RaXgVSV+EqsxchNiYfhDMGS8EdAyYD0fdja8KG3QqdZynK1FgCL4A8WznZNzo8V0Dq3 WaWV3 L6GlvI60TF8JB1rzArX9OmJyHOFHYI4+AcMjFZ2nituhIJp7CLXrv4LiCzd0H4V1CK10G2TxiZ13V9Iz dGVnb 0J6Hr6NoYY7E1OsoY23WE8TS8goZiW9NoIwOGJDTE4+JkJdNW6jfsfnQRv9VWHnu2HnEec0C4Z7sWWgX 0NNRC 7DD4knTtF6KuQqOHGRLX3IJ4SpeK5cBg9WPE0sz2BoFtF4EmHzDBGgFgtYOBziHOLPNO5Ke25wq3LaAO R5cGU kBVF4ZxBrAAU+OiwrllLgHbaCPBM4OmHqHV7pyim7GF7Fqwp2EQMxK0Fmr4Ioxs4MOGJ2MB9jyOLhQYP oRDoy OXU0WUIxKXO6MFdtCS1mSEwtYHvjHc0VOB6oz7TmOoC1IhhsASFaEzkAOZojFHouJZ5KgDPDV6ApjJWk Y2EgM S6EWJHtVs3QKB9nq8CwAnZ8PqphMDTqHawJUQqzTTVsR9YqVOV+JeS0rkNbfPyoEOccpbAitJBnNT8VM W5kb2 QeRbW4DQUiLGUzKbhNCWlcIUSdN5RnZBDzIAczM5LcySLovn4BlQU0QAUdZ05wXO6+l1SgEDKnGkcmK+ TVdyw iyRqRFL6LaZXPK3ntURUQV7ySs5uWBXlXl3FvD1RpnaOv4FMAK8BcwVEkfmNwj834jXEFimXsxapodNX LPm8g d5vwTs5HPNCVlqfqpzQwdWKjRU7RYL0zv6RhFaY8EVAgUOYwSnaHPTggAOSlN8GwxMmxWHYIY4ShvOJk L0Zvb hLdMCM6WEGnNKF+QwmispPzPtxQZIK9PAJfEZ0tzmn7SA7FMC5fCPU2XTTnQDISIb4TUJ3nc9NlLoY1E DUgMC TfXwoFDPvpJXkzYI9Te542J3E2KkZ4mCEbCMioVKMcQfBhKBThozLaU243kpjcjd1MggGzWKupJiScLP g2IDA gGn7Yg947RIHlV8XgeWToguOuFGm4HHLwRa9+ZuOsBF6cnmweNGd5PWBav5DqXgz9U5D1oVDuHE7rf0V pbmcv XiJxLDImF48irR6wY8ntyrPiq7zIkcXhNDveHl2+SuNnOA1gtkyaDJi6JZTdi1OqUyz1S0L3lRKvXw2c dERlc 1JiwYW5g6HdTb7trL2eyRNdL258scaczn9VuAEtwaYbKi9Ip462VvDteJzzOuShIRY9UJR4NTCvAGX9V S9JdG ZkmKFEuonsWRUzL6HtbXxhoXhlpMT0NvVnFTmyzPuttAJ0HnAdKJCaHN19MElcPP6FDAUsLV53KS7xJZ AvU3R lbVYgNTU+TawxvwGyMjdYKPI8QLBdJL6mdon1NX1FEJ0eqSnpLRHcNAZxV6M0RyG7cAPyYv4zcM8PiMN lL1hP RznyC6KcKxUzlZacOMUjTyRcLTC6SI5IGCGdwMVjJCNvQTV2EvCyVNPqE8MwDIO6KiTlTAGtVZqyF9RI bmZvI EJ7UMzkNQDQT1wqu3QMn6UbVdqhMNmWOzMzWvVwHrT8KNZqEEL0LCQ1QsVgDbtxYkaunEVwG2XeMZGvG GVjb2 EaEo4fiYSqTX1VhAqq7DCTR2XZ3aV5CutRVj81c4kEFZYaPxZC9aQAVukeApeEHdciuyEgSxiogHXtVt J4NQI B44J7CLVebW4EdBL7A3wt1hMNa/ONYOoesFXQ5PxQnu4Xz4zMbmw4YVQoie0l5Efrv7mK6sO5WMUrBws 4CZEB DaEnukYeLtDrGZT6xoFdaMthetVpXchIPWR1KYPsQF3ctth5AD0PdMYzftXcTVP0RRBjEMGaNEXvKTSu ZW1lb fLbPCK6HQHfBMJqJxjryzLxKJvwBTUuBs2LaptibQSyLXkxXEHwVm3+AzEfUI4tjzkqNPslDHXbv2WdF jw8L0 L6kS4pjRJ9LFUzV44NPw5CTM6qn8KoGeV9LSDrQNHjZpxQHFghU7KfnJjuIH7LUl0+SiHuUR7wsjlrZQ kyIDA ca6YfEge8O0WxUJzVjUU2NY0TDr4+UsOwHA6zwngvZKhlEDDey5HfClh0H3YggZ25M5JonBCoT21+Pgp lbmRv DodSUBG0HZGeRT6wpth7IH2EGJ3bRNPvj8YdbryvKHwgKV3CR9xoHEBpR6LtERR1UFXrHHA+PgplbmRv YmoKM QW7GWNgQA7aipn5NA7YfkNdjU5MzYE6L8QvgXWla3S1Fe2XsHO6U8FytQ29KN7OV5xnOjU3TZPxJXQNH T4+Cm ZhOC2vumqmTYx4LOGob6HoQxj5Q6P3GH67K0QisG38T6CkeDPaj5I5Hz4PtAN7K1UopN75VE1VR1krVp E0OTQ gMCBSXT4+ZiUxRA9rlgdiMFa7HRIim6EeRuz9N4E5eDFqR5DTMF6GT1rsSsO6VRCdPKRZIP9II8LokS8 uPj4K VU9le6NoJbK3THkbOWIpAmqWQBvfVDQMNP6Af72mm6KsCHC7gEXoTZY1DZLoQOP+PgplbmRvYmoKMTQ5 OSAwI Z2zgsw8GP4Qatz9POQbA7Eue7Rayi7QKRQ3KU8uqOJbXDQyXEuxLSS2ICInFRN2QWbsHF1sCWxzDCdfM j4KZW 6ab3UcDzB5WOFzYXNvUbpOXXbgNTwdBQ3HzMJTP9DyyTKhZ6ApDY6TSEYtEn5XFN6qo1NbOhK9CRQgZC BvYmo FCCvzPIVmJ6DqOCI+XmJ2tgIpkOwcLVmcqfFqiUHtDE8JWW0np1ArDjC6XTAwHSJsLbxYIDmyUUOuP2L oICAg EUqsP8YlwROtqy6WrIN6BAApH08uWX9+p4EuNJNsXzutP+OPkexfwTsLAO2NqTFDY0yfEZAZF5hBg9vZ LMnMz 7ZtX7GdjkKa2RAGN0TyrETpcmWph546pPPKowJdjdcqnCADMr5dw2ezBj7VOZERutfrsmVpkVZbDG6KZ W5kb2 OwBjjoVBTNUBFqOTWdFLlaRLAwOAGmBTSeSEV6VBW8PORPFnCeEYEpTRHaKAPnIHUeMZMqil0FJORjWF AwMDM 0AoVaQBFdCJGwGYlgKOMvPIDqDXCuMFHhURAoAX7UHbXhKJLcLoFuVEMzDEJxOJSmsl9GCSIaSMTaOdF zNiAw KMKgMPHsHYcqMDPiZTX2GKz4VBNbCTNdHK6HKwKvRSJdUvxuRnxxDWZqJMUuet9IHHQjSELeLYMhIXHh MDAwM BUuOVitGMJlMVN2VpOeDRDdTJAiVQ9HZfTkEIWdTXm9RLGtNRYfGNNgxd0YFOOoETF6QHW7GPTzUCMbB CBuDQ ixMUKcEZRcJcT0LBCbBJGsMT4KQqMePKDsEZUkCwuuUMAyUEFhuv4GDMVpPSM7Rbm7FSEuPQKoTZToWD owMDA vTUu0JDL4YZGoZALwSS3IAdCtLQMgALGjYWpqOCJlPDBugh4VIBImFGR6NpP0MLNbFVIeLVXqYQlbSQF wMDg2 UwDqNPZoMZSdCG7WKvZqFABjFEi4DTMaHWWlIRIlib1ZAKQySKR0Pfl4FXZyAOLgSYInXKgsQSKfABj8 MDAxI TBcKAUeZX7RHyUjJFXuQOreGpMvRTQnCKJqei1SSKUfFKV1DEJ9QzReIGGhTDGqYEhyNKCkHAt2GtE9S DAwMD TnSV8QShJzFFWoRKclJCPcQELoHBJays4DUQTlFTX4TIF1IJDoEHSwNPHsGLpxTSTvOTbzBLRzQFDaIR AwIG4 GYcQyLURnNWNmGMQmNCXhLIPppd1PASRwSTO2NqIqUBNdNRVpWPZmSPtdVWIsZBq2QXUjKVRpECDtST9 NCjAw EJIfIMx7IPLoDBYuHXKwuz5ZMCExNTT7Hcb1ABHtOAYsZYSnWRayPNJaQMh8HOD8JJNdQLViVY6JVqId MDAwO Yt0AEtqKNYlYFIrfj8UIWXfKQV0WVPqLmNqRHZmSYBwLDqhMVRvEHa5HZA8AXAiRKCwUC5RJfBzEZBqU TgxMT LsRVPvPNFnyc9FJGQcJPH8RJJ8JCXjJLLmLEZoZRwxOKBhRWx7TcTdWVJbMVDxTV0WUuGfZRNxGYgwUt YgMDA sYYCibs8HEBNsVBY4XRQaShXxKVBmNMYkLHgjYIKrWQt5YbL2EQKjJZNxLF6AAgHnKEVoKZy0WGflFGY wMDAg wy2DJRKlGXC9VBR2XHFsNPSqYQDrFDdgMHVpBWc9ILTeMQOvGJVmSF7TTaEwSIJwFHe7WOVvQZZyYHVx bg0KM RLfGXP3ZJJ0EOXsYELcPBEjKPwlVOEaYLc7QgS0HGKuHGSzMF3HAyBsHOHzIWb1XomrMBLkPVPods1KX DAwMD B1LWdlHoCqMMZcWFVzBFkbVXYpDYa0FFj9OQTyEFZcAN6UEaKkDNBcQHw8UAMyQFTgNZXuoo6FEOUnTF A5OTA gOECmHKTdGPYaGMfhDCOmZGp8SCX9BNDxOEYtWG0DDoJwQHTzFBhjWpStABXyGRNmzr7ORQSaHRR1AYP 5OSAw IJOjWPOtKWouNLCoCFc5GaG3VEFlRGHfXC7LZaNpRPGxRAkyTVnuYTUmCKPgax1GVPPaBUP2MZK9GiIx MDAwM SLmNFaaHUAhFUq7Iba3GWYcHVLeIL2SKjVcUGVjMBo8EBFkECLrHXTjyr7AYXDeFOV7BASfYSNdHUYpJ CBuDQ iqSGVbIZz0OuMxFXClKCHcDY1WMqJfUQOhLXo9PRXcJPTvLZPokg5ILNIyUDM7PUxlVuIjRTWgLPOtGB owMDA bFEl1PYJ3ZJTpIJCcLG1CJbWkIXRpOKj1AvlzJNIpRGEnjq9HTHGbDYK9BXn8SQRxKNXpJJIlDRtgVGJ wMTAw OFH0ZRBdPEQgBM4VZrSwUIYnQMUtCQqiKERiKOLrvr7QHFImPDByBBA0ErGeBXPwNHXbSRyfWYXiIBIp MjU5I PLpKTSvGV6DFpVrMWFwXQEsPvToBPQbMNEbli9BSZLcXOMlUYZ2WPYgDCGcQUDcIStnSBVyNVKxMMY6I DAwMD VdEE0VTyTgXDDvCNX4WBYoZZGaTVWxml6DDQCiACPnTCF1PCMmSUAeGPLwTAogZYCpSYSiMmJ9AQHhXE AwIG4 AQfVzLANwCNY1TLIrFDPqLOBgcq1CSINhXLPnXZd5VtDbEPHqAJTaUEetCUGmUSVrBGZ4OMPwTURzIE9 NCjAw NQSqNKZ9RrEoPFHpZYFmla5RWNXfXFFnKIruNSMkKBWtUDXdYRalFNVsKLSdPCqrNVKgZFXlJH9QHxTb MDAxM ERrBCViYMHcYJGyyf7VBAFoEODoBPT2LfVfJLExYXAeBNzvCRWuTZAgOZHuPEIxJPQdSE1BZzFpOSNnZ DEyMD JeZHLrGBKznb4GDLKqEJPeSVE9CLMwBZGxGYUeYEdyHJFqHCWcBio1LMGpEWEwHY7IWqRzQSJuKTPeRM MgMDA gOMEmhd7YMUMhRYEqQSZhTuEyAUWbAXLsGVrxWKSjLHRtOOR1OFYsCWDyEK8OIzSpFDMjLRK3WYGbTBP wMDAg mh7WGWJxPICjXEH2OeWyDEHfVXUhSZmzXYKvRURdGxOtPHOvJRDbEJ7WGkRfZMWsMTX0VOPoHQErTHCh bg0KM ZEaEMTyKLg1WXEkVOMnBRUgCKqvKWIcAOXgIFPhVSVmNQXvIK5VXrPjMAAcIJB2LTidJHDzIPTrhj5MG DAwMD TrEIxfVIEdNOMcTNJhUOqnMBXjEKCeVSM7FJRpMXFnDX4TQqEfYLLyYAUdOJcpALGlISEfag3HIIPbWN EwMjA 1BwIdPCUuMYMbUHawZCXqOKRxIQE6HCLgBPVwNL2MJsLnWKWdTDOhMCPaLTJxWNWtac3GMEGkDFEfQzB 0MyAw ZLAsTZGdMWkzTDOgYZWrUfh6FRAyHISbGW4OQgNqGVLtICF9LlAcDYSyBSTwoi2QTUGpTYFaCmN2WsQj MDAwM KHaCRtrMZVrKZRkIDSbEYKyWDZbAG0PFyFzSXEmCRV3HYrtZBIvJYBrrv3RIPWhRZPfLhF3ASTmKWKvU CBuDQ mhMDNmKCKfUeF0NNExDMRgKP5MEkGbPJQbPQM5JBOjWIUhHAGdpx6IMHGqYULzQgo9ROYcAEQbKTMpMU owMDA iMSLyJAa4EFYbSATlQH8HYaWoDJXoZSF7NuXnIOKdHKKiyu3TGEKrUKLfIjBsUZNpJDVfASZiTTcqTCN wMTAz DAt7RXEpSMNdVW4GSuImHOGrVHEgOtJnEUUgNSJbhd9RUIDlVWVtEiV4TXSqJMJrXWSdKGbbIMRuWDDs MjMxI QYjTCIuHK4JTvIaXDFsPHTyPJuiIJAnADCtvt8OUJYoSZGxAfHdYfXiHABmNNEiEMbqZNLmOQApLfvjU DAwMD BwPN8CPkKlPHGtBEJ2YQIoYIDxFPMvgx8LQBVmFPZsYaR3XBDfPIUwMFHzSQvkRYUpJULtRXF8UEBrMH AwIG4 RMoRuWBErDFS9HSJfNTPbPICxum2CWXZaFWLkEpF7OUUsTCQoVHMyDHpgCEArRGJyYrUaXZJqKBLtWD2 NCjAw RHCmWHW3OdRfPHBuBERvll8WJXWuKTDmSwkcMPSoLPAqQDHxQKohULTfEBSbSSI7XCWlGKRdGY2MGrZk MDAxM JC6BtBwKZEwRDTbbf2LJRXtCLGnPhl6CAYsAEMeHXLnSVamBJZiAKC9TCAyUVWyNMGwQH3XEaVgHYAcO DQwOD NcMIJgYUNffe6GRWSeLINoHHXyOaHnZCUaEUMjROtiDQPgMZT3NUtvYKWeZBUbOJ7KJiWnLDFaDTAgOX AgMDA hAKEzaf5DFYJfPJIgQCE2FZRiHOGtETXmFDynNDYnRLB9DoY1LNNgWDLjNJ6OEsRhKGQrVSA4XLSvCLA wMDAg vv5LKOJqCPMuRIQ7YwDjEXEfVIZkNVrrRLGePGW3HnncALRgBZYcTU1HYwZrENSaGLM3FgBeGABaIXIn bg0KM LYiCODmZIh5CfLwVKXiHRTqKZrgZUIdUGT4ORQtXVRiUBJqFU8STzUyXCAuKVSdCxjkKVIpTMCkeb6TM DAwMD LsVJFdVXLkZTWqRUDpACbtMSVgLEE6PbD7GDAoYSHaTJ8UJpArMLDfDMY5OYBpOPWiRQSyte4TGXTaOW EwNTQ 2ZLByZWBmCJDjQEoyTEZiFZQ9JqG2RBUsEKFnXY9DUjTdGJRnEDT5KpLcZKZiXYKfye0ZGIChPPRlGHd xMCAw ZVHfLRCcDLozTAThBEZ7HBd6BDGnEXWwZH9PKuDkHXJnRJMqELDmOUDoDTLyuv7QHZSlITAeNbX1MzEo MDAwM PUbRTndNCMwELS7ZnU7AJZrNYCjTW0PXlFgZPKrZJLfBEXmHEYuDCMrcp4BAUXnXHYgMvOgIEGfMUIaT CBuDQ hnXQYcXVS7EWG8WXIpUTTyZA2DNnXqNYKmCRN2BrTxVODdHWDjov4ZMJHwXDLuCtnrAYTuOCVgLEViDA owMDA sCHX6PPq3KWKhRGHzWM9TOlBxLXPrYYE6FPVyOSZmZTGqja8BXHZuFXWkWuh8SvMeTKGkPRGuGXkdZEI wMTA3 VSYbRWWcNZVnBN6XNwAtCYHvNDocTZbeTHMrZTEshv8QHCDgENUfJnI3QKYpSVGoKIOhQZnnARTlZSF9 MjE2I LSnRSMmQZ0BIyUdVHQjJTqcXqYyPFQjEXXllj6PLKUrHSPnOgZdLAEhVXIcWXGnNSdcKCCiARJ3SmU4S DAwMD PmCH2HKxKwYZAvGVz8IdUwEXRaVSEzyg1OZIUpCTEaXyW9TbArTRWsSMDzTDhoJWHoTXD1QKThOJHzSD AwIG4 YNkZnLCOzXOd4DOlhYBShKAYjag1TGFNoUFSqVvX3KRWjVDEcPUPwIIvoSYEcJHN4FoJcDHTfZKPmMG4 NCjAw FQNjHFp0EWhgZAJaKODezo3WATKzKCSwMvxbABWzBVMgLERdCMotYAAsRWP0SXK9GRHbRRZePQ7RWzPt MDAxM Ma4XMXdLXFsTBErqr4MNLZdBFIuRyp8LAQwLLJhSPKdKDamHPWxOOV3TJMbSUQzCWKcNC3RBwTqCCKiM DgwNj MrNVXvWUVfwo6LYPYvBKZeRCQjZRDfILQkQSRkSKyrVIPcSRK1SKN0ISRxFOGsVR9DIqZmFSSaXQiaNZ YgMDA dJRZhav3FDCQcUYArWQS4VjBxSXQuRDXkKKfsUYJkSDX4IsVpYKUxPKHwSY8TOvTgVAWwATfuWebdKDM wMDAg kq6BFVRkKGRdPLCmTOLrNEXmGPDgRQvsSDYtDIC1LNgkRGUtTPPyPR4TAfUhGSMiKEc7ShjfEZFsDVCw bg0KM EKqWEEcMVF7RyNcNTAlRJEgVGxkCVVoPFC9CaK1XFHfYVJoYA4LVlIxQYEmVLn6PRHrRJHvVKDmhq9BL DAwMD JuIRk3VfAhLFZaRUVmVNzlZEZtMTQ3Glm7MAQdZDCsPU5VQbKpMIYsIHj1MOKmCOMsPOShyc8TWDUpVA EwODk jCFZmNFVyZHDaVTzkZRQyNBW0VLT3TNJjQPQxNZ2ZBiLaZYFmBEsdTwFiASYhUSLlzb5RESDwVGKkLKP 3MyAw GYAxLSWdQCtvUAUlGMJ0SSG9GYWdHYJiNV9NQcPmVSUmJRkbVdMePYSnBMMuxx0LSFRpRQIbWFZtUCIm MDAwM LNjZUvaKCWfOCH5Kog1ZHLaFYHgQI3OImVcDXZoSOjjKeMcBIKePWBjjr3CXGNfUYLpZEN4KDRxKUXaI CBuDQ hnDSVaIZU5BQW9JADrYEBwUC8RQeKaGDGvTIf3ACAbLFVeAHOtqv3EOYCkJNBtEZFdRAQfAMLuNJMvWG owMDA yJMF9UEw9IMKyQXRzTS0BFdHbPPRwGWw2BoLoPVBpAVSajz9HLPEjMGPrOQL8OXRvVFDuELLzHGunXSL wMTA5 BfO8WDTjUPWfWA7ZXfUtGYKnWVf6SMWaPVRmSCQubw5ZUIYjFGLmVGa5MiYeBVBaDYUwRWzpUKSoHKI5 OTEyI CRnJDLaYW6FWyDdKCOoGRj5ZvvlJFXcZFZiao8GVASoBFJtMLPhVBHcWTWgCDBnBZdeVMOlJKJeDFfhE DAwMD BsBQ0LJzMkCVEyUWByJuGmOVXmGSSoej0RQYVfWKXrOHP6FHMfGMJsGNQcFWrsTAVoCDRfQoPrXGFiKY AwIG4 XUgNaXLUoWGSpQYFkAJVjJMJavt9XMJPqAGXxZWGdFEYoYJEbHQOyAZuyLONeWOBfApffQSMjTASoXX4 NCjAw QMRqUGZ9CrBvQLYbPIQxdj2IFYGgAJVrHQN0MFKgIARvVHTiEHooYOYqMUMoKDZnZAGzMBEkPY1QOoFt MDAxM CM8FGWqJIGuRWIwmn5QFWVaKZExBYNpHpGwHLNvBLZpXBxbZNIlKORnFgddBKUkTWDxMK6XIrBaXKNzS TA3ND WjDWSzEINczx8NPLJqFIIrBRd8BzCuQIJnMHFzABbdZFXlUFZmJBP0QTCbWYRqXS5UUmCmJVDlKDN8UR QgMDA nLCHcjp1GRELyVVEqBEg1WRPoONJeIGAtTRuwJFIlBACsWVI3UXAvHKWwQR5WEgSrWFDzZCXeEiYyCVI wMDAg ds0VZNBsZDGrICXgTMIvXCOrBLLxODzeWZAbMRUgQRw9ICArVJBcST7EOrRhMDFiNAZsQNFyRUSrTEHg bg0KM MSlZZRlTZZ6FvKtSTIiQSBnEWvsFOThSMMfFxAiMJSqGJUpRT3XMcKbZNTzWCY7DGZqNTEoINNcir9UZ DAwMD ZgOHW3EXCvTHPdEPUrRVcjECQdBSCxSAW5EBYcAQMiDO8GJpGvTKDtDMA2IOAlPMXaOGKrkl8TDHMfFZ ExMTY sZgWnKVEtEHXnZZpiAZJeEXBdPrC7UUKxOHFuXA9XPmGdWMRtIMW9BTvpUZYgUNIufp9AQQXwYVYyBOe 5MSAw HVFkLXMtKKujWCIyPGPtCGDkUHKwVOLrQM2RGaVvOFLvDEO5RbLiYTFtGXFkhk7UZEBfUOMlOGm7PVNh MDAwM XSbEAymFHLbVRQxJTF6VIXwIVBxAU6IQrGwXHKaNCOeRmLiFWIwMCOcio8UPNUcKTHaDcKrGSNlSDDsS CBuDQ hyFJBcRSCdPBw1MVShZGHtNK4NVhDgLNKyXXWmCUMgRTOoTUCumk7XRZAkFDQzGpH8WpYsBZMkFJQgCN owMDA oQNKrTjCgZYYzQRRcHT6JWyFeXXTzMTC9TBfxWUCpUCEpxc7PCGAeDJMtSpH7YGEgHMFgONGsNQcxJEP wMTEy KEKaMVGhUYIxNI1XBlSwVEScDEQ3NjMzEXKySLBfdj4EXAAwQXFqJhZoWcDiBGEjBSQxCRhdFWZrNSGt Njc0I ICxJUFzJP5QMpIkBWBsJFH8TbWpLSLaVHPbko6WWJUuAGIkTgr0MiHbQBVvJMMfZPzrZPSmXCGaIGA5C DAwMD KwYM0ZSoPfXJQjJVD5CqbdFBGlCSNaeh3QZIXxSEHtXnvgICEhHBJlITIwEXliDJJzUVToDPljCFYgOO AwIG4 SJsUnMCKfLTYnSkMgAZXhXDXwdw9PHTLoZQRvUkI3KvOsERZjIKGlFBtnHPQrDPRqDMNuGREvJWJjLF0 NCjAw ZQOjEFKiSYxxNGDtNAMyrs0IZSNgAKErEdO8DDTvTMKfBXRcOBmoHFTpESCkGwO7GWTmMHXmLW8PDaSm MDAxM KDvVrAoARTmWZImdt0BEWUhPCPvIgB0IGOiAWTwIDOgYPurYYMmTHWkTIK1BXLwTNRwZT7ZUqWtUKTnI TM1MT TjKLJaUXMrff6LMIWsOUVwDnU7ItGkLMDtAHKvSWajJRLwPPPlDpMzLDHyWEXjCV4CBnUaWWFbGBX9Ws kgMDA gPQErua6ZUAWzORAdVhbrSEAdSZYmFEVtPEtnDWPsUSIkWkhjYTLdTIMpWS8QRhKpDXXfQUW0EJtjSGA wMDAg qo0CWKCzRCUxTcu7GUShJAZpJLUnESevNWAfGQYgVJC3WPXoCNYjJO1IZyIeNEMvRTCgZBRgERNlXGRi bg0KM SNrPMUyJDH9XHQsMBGiKBUnLJhnGTFkUIZ1XIMsMEShNUWkWY0IAfNfINXqYTZrSXChCGQjZNPjrf8BI DAwMD QnSBIpQVHyDLHvGRYpASzeCRGtMHM4VvI4YTRcCDUhLD3OIyTfBGJfRMEtNKAnPTXlTAItoy6JLUXtOS ExNDM 3DtEoSQJwHTSpFBigGKYbZOI2ZIXyHYKjSSHlJM9ORuIdJHNoTSX8AafiCMFsXVLuzj8MTIYmAAKdOKZ yNSAw JCMcYEJnKQzuBYLlBVG5LTz5HREvDNTfZR8CYoPaBZAlUEQ2FzYrIDNtGJUriv0UOTZfUBTwEYU0GJTa MDAwM YTdBBsaTYZiHKE4HtI6ZAAjCIEjYR3TWhXbIBPbRDR9ROFdFTMeXJZidy6OYGQhNEMxJDzfQsNwCRDyN CBuDQ mtYMLoVVO0XKizNFVwOOFyDZ7LYoEdRHScFER9PFsdLNQnYKLkxq5IIVLcKQPfERPoQRRkNRNoJXNwNQ owMDA kMZN5OUAmPAOmLPVbRQ6CEqFpXGPlDDTyHBfvRSUoIHWfos9QRBQqZFAoVGK3JoIaYHFeYUGpQEyaFFM wMTE1 OiB1WCFjGGFtJA0ZJxCuMBWrFFVnObItYKOpVZHren0NSXQwRXBnJRAwJfScIGLwAFCdMNzwLMTiNTK8 Mzc3I KEkYXWiOQ6LNxUoUAWfBBD7JatdGUGlYUQcis1APRGuTARwTLS9QUYyRMRfRRRyZCwxFUNtNUG6CASsD DAwMD TlMU0CQrNpBAOtVVV5YSJdNOUfZDMtqt9JDSTvIDJjVZWxKgPbKXUfNTKjQYdpFSFoIXY0XxhkILIdAO AwIG4 YFmFiFFYcHAH7ZqzbMPRzNHKytz3XIHZpIHTkPTm9PuOpXURyHKSdMIbiUDDdZVZ2LFNpGCHmNGUcHU7 NCjAw ERZkZDQ8QMNbCQVyZCWidx5HLZAeJJSfPuS4BFUiABFgQZQzGGiuDSGxBOU6NOo3BNDiIWVbXK4JRzVs MDAxM MAeMNqbZRAxMHOcst3GPQTnFRRaLgU4UKOxJPBdXIAnSXkvLQZxCUX7DhR6CINlQBToCW3KBwPzYINrZ TYzMD HvKYJpMCXcwz0MKNNdKBJdLdV7MHOvAMWeSEUyAGsvUYLzINR8JHUvQYGsNFDiAW5IGwUgUGOiDZW7WT MgMDA sBPXgub6VEQCgAIWtUdYlSAFtBKXfPAZtXHaiBNLtRIH2HKU1BQAkYMAcSN3DHbFjCIUoSDW9EXXqJTP wMDAg bn0KZEEyMGJoXaH8PsHnDCHkZXErXZeoIYDsCLF7HwG8OMIrDYUjWO9NIiVwONUzMOW4WPZvTQEkUIKs bg0KM YWeMFKuXrmfOVNoJGKaPQUbHSldBGUxFKT4HRS2RQYtJKDoSH7GVkNfBHHzEDI9LpZgAOOwBAAxod5DY DAwMD KsJwm7UWShCGQfCMZaQTheDFAgVSJ9BEC8QYHzGUDyKQ9MMoXsSOUkDRbiYSCpWEJfJVSbwc7BYIEaTZ ExNzE 5YjDlPRSbQXPjCWqoQDJdDOH5YpXjNDLwHENuIA8QRsOlOFDnKNxnZARjTUXxKNYiqz7WTOIuNQSoIoH wNSAw TOPoLEUiSCgeMGWvUJL1ObC1YWDzVZTrQC4KHgZsPAUhAOc6RLuoFSPbRQEkzv6YHBEwKSAvGqW0ARDj MDAwM WOxSDftLYKvOXA7CWZ3OMXlPDVpZF4ZEbFhKBRjWDs5EaMaXTHdCRPpag4VGUPuGUEyFfYuGZIlFFLuE CBuDQ kiZKQgZLJ1ZeBiWQXcPPUkPY2PVrAqUFIdCKa0PJPwRVUhWGInbi7ZMJRlHVPrFhs7CTHtFMCvMCHiJE owMDA kIIW8YNF2TPPbTXScFZ5JAgUyXAFwQVo6EWBkHSTmQQOpun8MPSZrTJFxDkdbHjSwLXKkGWCoOKiePAL wMTE3 TWz2QRJvIUVfOJ6QJpYyHYDkSGkdIODlAHIkIPJosm7JEZLuFBQzMYE8PBTqVTTmZBMtKAicHJAvENO7 MTM3I CLzNOPdTI4EImAoCSUmJFwsCLZgOTGbLHXedv4COCUtAGBnTVZ6TZTiQBOiWTFyTOyoWPArPXD9TrX5O DAwMD BqCE9SJwRxXPRjZRflQoKvKYMpLHBamm5BPTMyORFnREKyWbCoQRLbWWKhDRzcFZOdWRG2MZqpJMOzTX AwIG4 BDhUsMQXkEHv2UvmsDYMtAJDisf5HZRHlLUWdGBF1MFNmJOQgZKZvVXkcVATjPIL9FkTgHVGyHELkQP1 NCjAw AXIwRTt6CDWzKPKsBTJemf3GRYZaZPBmXGnqRkBxBJBaBSWsJNnmYVHeFGR7Kos8OJCsPFUtRD6EZmJs MDAxM Ml9RmZvBTOdBOAcwa2UBOMhIGHnFMz4PjAwNKDcLLUtXKlfYYUpEDQ4FBS6MOMsJJVjUE0PWlAiOCNdO Tg5OD kjAVKtIEEpax2AUFZrJENqSJGzKXKiZVQgCQFeQSejNDXvMZU0CDz0IYSqNEAnHN4NXcIbLBAyVHkvBF EgMDA cYYRxuz6LQSKxEBQjDHElNxMxYDRvGREpCZkuJZLvHZB8DyK7ZYHlSAOyGG2UVpXoNZRoMGgiTSSnKKW wMDAg he7MFKPfPKMoAZM5SFHnVSNwPQCzNOjcQJKeYNL8IYY8QQZjNASjEJ9UWqFuOBIeOLn2HlCdDDGwWZTs bg0KM UDuLQVmBCRiECGbKFRoQTJlHVboFCKaBXU3PEo8FGXjCJErHM6SXaNdCIHyROj1GySwPCUaVVZlgm8NO DAwMD PbHOS8YtSjGQHkWLZkJJsgTFVbEFJ1ZrNlKVLhMROzMS2YDgUvVRAgUYo7RJumUTMsPNKrey3ZUMZdSO ExOTg 1YXTvSMOhAVAjLArpWONaTPS8EKN9IJJwPZJaIF5WZeMdNXQyAUg3EJbcDTJsKJDejz9JZDPfCEIdDIG wOCAw TGSwPLLoFAceIFWgEZMxBBH5VMLrWNTjNL6TMhGyNKPgIfUqXGGzGAClVDGkfy8SZAEoONUrGWF6TEXg MDAwM BUyVMrwXKPrSEWdUyJuZMLjSDAfWF5HHyIsQDKmLzJuTmPdYSEhEHZvkr4WLXRoJQSaEUBhCZFjPMRfG CBuDQ beMFSkLKTmGoF9IRPlQEUnSG7BSaRnBBZpZhT1UNtiKHQlLHFdxk0PQEIaYWYfURG0UWXvZQTvPSApTD owMDA lYLPgLIRoPGIeWVZmOM7RGqCjHINsVoQ9CmGgBDYcHFEbya6DHYMbIQPiIBWvSDNpYNDjSUJjXMeyCQM wMTIw Wsc3GRAiXFElXH7VElTbFHWvXzI6AhbiSEObEXRvze7IROFtSHSdRKl0ZORfWSGrCRInDErwIJQwURRq ODMzI RXuHOCoOG6NTpUlGEPqQgC7ANDeBGZuZCOmsc4TTANyCOHzJSusLsElYUXuNEElDFoeYOEgUZYiCHl6R DAwMD DhPE7GFlUqGXFjDdCxRYEpPWZcIZXcaw6ZMLUvWGQqARK6DqAoJRQnTXUnHWdlVMVsUDHuUNL2OZUePY AwIG4 UIaJiSSMySdFqYJkuDSDfZVOazt4ZQQArUVFgXDM1QDGcRXRuAWNsJMmvGBIyDVGoCjEcPASySLIxZK2 NCjAw SWKoGiVfMEZzJWNcFUIkbg6HOOTpOZVdDTGjVNKoRNVtNWGiJKkdDXBwFQLcRCB0JLJiOBRdBL1HWqQh MDAxM wJ4REDpKLQmPZOxqj5XXUJlUIHzOLZ6DrRyBITzDYXjTDnfQENxGNEtGmJgHVZsWORrIU8XYgIhODGuZ jE2Nz SkHBNxDWIszl8PNFGrGESrLXlzFXCfUSJxXOQdPIgeYKQsFSLqFun0BGEqKRKaGJ0OKpFnUKCoOxB6ZM UgMDA kNGEaiq4JLWJlRWGzSFw9JWVgFNXxHIKnVPgoQPRoEZTkESJ0NEDgWHKiTN3KBiGrCULbZgWsPsRoKVK wMDAg ae2RIQZpPGSdTlAfVHBuQLSsGCMgXRvvEBVrHSPtMPWsVSIuRZZdWE0SWcLlXDWjGjPrJEVwBFKvEUZm bg0KM CHkWDWqOcU3VWRfESJoVBSbICyoBCIaHUHqOyJ7GYRiGUVjPZ2QAyPrMWUtLeEvFmGvOSDaOWPnbv4KX DAwMD SxJeXaCdYhWLOiZWTrDTwfHZApCIJrTWu5SZTsCEXqKU8FBwFgTAAnFwW6DLKuVZOtUMSpvn1CIBUfIL EyMjY zVMQrLGPdGVPkCIwiEQXsZAKnZaY7THKdAARdHV5YMrNcBUTjVxL1OSYjCBMiUCRsjv0VWBDlMLHaNrk 4MCAw ULUoHAWaEVrhWLSyXEGvGVEcJYDpSNVpGL0DJhGiTCPbGoD2UwzzQUOgJFZfmt9WLWEyQBZnSyp2CGGo MDAwM RDjVCjtFCOdEWSjMDN8SPFgIUPdLQ4TYxDxUEUjEwHhVHLxYEInNBLchr7LHDJlAJNdWfNnCZOqQCTeW CBuDQ ziOFWwPGFvHMd6IMKsHTCoGC8NVnAlIXRbRjIqWPWsDWHeZTVrue4ILGKtQGVhUwBbVgNaJGElJIGoKB owMDA cJSLpZcK9IFCiOBYfAO4XQfHrRPFtInO9CDmiHJOgVKCvbg8LTQUsJWGfVbF9NmEqXTKcHHPpBJlrSTZ wMTIz EHN7DBFkTSVfBF2BIoChEJVpBoH6LPXrNRSiOLEdld0EWJGeXHRgYlD8YNEoVIKrFNKeUMxpGYQvKVZv NzAxI SRpRLMhBL3SByCpPNJiSwT5BYMyMYQzQXUqdy8QMABfARLaTgrbGCGpNALlLNZoUCcuFAGoROFsPJQ1K DAwMD WfZK4HLjPwZXPhLrC3ZUJgDXEvBQEpjz5OQFKsBKCiTjr4OdRfIMZzNMXuOXojPDBcNJX3YLXoWBEzKD AwIG4 ALvOyJXNyQkXoLeYaFFHqQUFgjb6LYOLlEJDwNAF3MwJdNMDnXQWgHHvqPADkSAV3KoJiSPIdKLAbWN8 NCjAw WBDpWlSvMzukNEFiALCmdl0SMOItDBHuEPI7LeCgNRXwSVCfWUvdYKVpGHM8ZUQ8GULgQTGwMZ5IPmYj MDAxM tU2YdUxUEYxVZUioo6TMJTcPZEuDKAvUBZoSRNtDSDkPNpyZBIzZZI3TEykFSCyCWTgIA3KVbAbKZCqU jQ2Mj BpRJZbNGUssi9HSFDhXAXaKWH5CEBoEAUxFYSvPMmlTFLaWVN0LhA1AIWkIUGkPS9YKcTrFARqOhM4UT UgMDA eWHFocu6PYWKcYPDjWMzyHfSnWCHhMRAuXKboZCWuZBG8EGxfXGOxKNCyQF2ZFqVyKRVdQzP6TTnaNSO wMDAg wf3PORKcPZOxEXj8AWFpUUBkZJBjHYbzAZLzXGT0YAViOVBsBDJpMS4UQqRlLGEiYaBjAMHwBELaSUCk bg0KM YRhTYNkYAHaAKYdVYAwTPVbIFhiJLMqXUZ3XmL2OVYoCZAsPA9FVgKzSSYaUgWyYsEcNCJsXLQgno8EQ DAwMD NeUUN5JVRkAHNnRSVwYLvvJFGsZIL4ACFpXHScMSXkEU5MEtGuIPGnWcP0DzQlRSRlVLEwks7YPVNxJW EyNTU 6LXQmIFMdRMLlJNoyUIPyGZB0OeA6TUSdJNCiWV4SNoVhRLXwKbX9CBCjLLNqMNJcln5HCZOqZTBwASv 2NyAw DBFkVPMvUKudCVBwWUB5KDG2OKBgHMEwLU1JQpQmJLBaNzP7CnlxYFOtBUUlvc7OFREoEEHpCRocFGEv MDAwM DRaPCkvBSZcJLP7PZpdJSThJVXoNR9WUgDoLFQoUxQaQtSnWGOiVWYwei8EKOMpWORfHzC9JnViFREcE CBuDQ gjYNZpJQN0WUW9VSHxUFNwDX3ULvCwDRWnVhVdZHDcKCNfQUMvgl1VDJUjCXGpOmN7ZmWpJDNkNNBnZA owMDA wNXX3Yyn7ZIMdSWCoWI0ATbKiZKQjWlBkVMEwLZZhBUItmp8TFFTvUECmGmXhSJRdPILwETCqWGbbHXE wMTI2 LNUfRUBuFXCyWM9ZPmLaKAWtUnB1MWZjGBPxUTCgbs1FRIXuASXhLnI4TcMjIYXvGEOqDArmRGDyBGH2 NjIzI WZjRQYeDW4PNrMoYEQjAqG4WsGsOWAmBIWpie3SYZXtRIViDxxtUIViCRZyBDRiGQmeNWFsJTC6UcjdK DAwMD IcMY5CNvWnLSMoOzR9TqdmTHBeDAToxv2ORJItONMcGib7XAVbQYFxVMSlNMqzIRHcRJB6WJF0OBAxGE AwIG4 BUxRrUNJsKaD8FRInVRAxUQPqqf3LSWIoWHHiChA9EVCnDDTqTWAxNNlfFNTsFHT5DEW0MYBjJCRkCT5 NCjAw HFPxMwnqQeTaCGDrRYDrrs3JTUBaUFEzRpMiBOBaAOQrRKAxYLiuHTPqHUM7OeczKTDfTKWzSQ5INwSc MDAxM qukQYBbKGWnISSdol1XISHdTYFnTgZqVeIhMCBzNQPlOUqrIUAtOIY1QVm0MSTjHHYbOM2ORzFqPYNrT jc1NT SsHJAzIWMjrk5VTFJgYBIaGvAfAZHrRXZbSDLbCNuiNL xdcZkuw26IkKEE9Sor6QCFdGVGbYM3AFsAjZQZtFtf8BcFgLLNjINJekz6ICMWsUMGiAby2TxSaNEYtZ CBuDQ dpACQcHRQ7NYj5KYIoRJApKT6OUmLjUKCmGyp1ERIoPCQkXGYmkl1GCVIcDXNoLNCuRDHkCMUqGMMyAK owMDA wPGK2WPUhWKZjCQFcGB8THrUzLIVdXmioASJzBMLxCZUibh0SHYMkZDUpNXQ4MZWeQVMaDAIsEOnfROG wMTI4 YmKyYUWxBUCrQS1DNpCnNMBaVwnrPnXkQRAvKAYkig6TXITiDEXyNKCcJbLaCEWmNJZqVOkkYCKdKYL0 MzgzI DQjAQSpRC8FItWhOKTnWwm6QfFmQTMmYSZqnb5MAQAbCEJxQAO6GIRsUGGeDVBlKVfgBKNxGKI0FZElJ DAwMD AxWV5HNmQrYBTqEnv0YPmzOTMsWLShdf4IPMYnDBUeCAC0CsEsXWBeWHKlDQgsUTQzJRK0EiZ9JWTxSB AwIG4 RZbEsCBUwDpm0SRDaXSMxTLLkwp6BPRPxMGZzQVxkEsZyJNXsKXPqPQrzMGEsYXA0ESIuXTKtZEWtXG6 NCjAw BDJyZig7IZwpOGEqQBBomu8MPVNlEBAnYWj3KDUnINTdIHXzMYonVONqDAG9MHD7VZEvIILpVM0JMwPc MDAxM rpjBcXnDMEcNGCvol1LWVUeATWlWQSuVcDyYJIbORDvXAzwAPQgTDH7ENspCGGaLLTtHH1TEcZdPBSwU jkyMz RbFNDyIYHshk3PWYRzEMYcBFX6InDmQZGwPJCfQNnvAHWqMOP7OtMmDDCbFHDqWF6FRqGkARZzMrq0OD IgMDA aYPTzdn5AZQYlGUSmRXLdTjTmDMQwNLBaHIimBYGxKWO7CTWvPGOjOIVnDC3STzGnJCDaCvh9IPccUAB wMDAg ig0AGOAlRNAkITC8IBQzRKNsHPXpBHcsOMXsHHP9RtLzCEArXAKgRS7RRlCqNBLzJou6RdinMABxZJBj bg0KM ZQtTGEcKDjqMqPjDAOjTBMbZUtdNQRxRUY5IIj9IYAnXKRwCZ7LGbLkOCSnDoq9SDKfCSUbEJCggb4CM DAwMD LvWKj4EvUtJWLgYOOsAUqoTLRaJWAcVRY5YRYhHNZaDS6SNlErHBUsUqCoLLesFTZwRUZuwz2HVEDjYN EzMDE 2TQDcLNJuPCGaFLhlFYQkIHJfDyP1PERzJCYjTR0ZGwQqBZKqSsWzQMjaVEHlWBTbty8MYXGoPSNnBDO xNSAw FHXeYQTuTAliFZLzOLKgDbyoCEKiROSjIL5XBrLbRDSwImD6AzqoVGPyZJFmgh6GVJBvTEEyAQIiYtAy MDAwM BFlGJinIVPwQUAzKQR4CVLbRFVrLO6IOuFgMWQeHlN0PGrrOQQgEOTqug0TVKCeCRDtYWL0LnJfTDAmS CBuDQ ehQAXbXEAjYpSsBNUmELXdMA2NJfOqHSBaSzH2AZvoARGvLMJkii0BZMAeICPmTKn8XSEsQRPyQIGcYQ owMDA hGNUxZXO0CQDcYURqBA7WPgNbHWSkDzK3QDWzXNSuBVZvyx9LYFVhHLKeAQJ7YhPeNNAfOFMeRGxeZIX wMTMx ABO3CSNwNTPmHO3UDmObGCXmYeLfQtunGVOiMMUnfk6JSDQhGFJpXIOiDDCuPPQnRCDvBIkgFIEhODCj MjcwI EMzSVXfXC3KYpGvKLApZaUjGeLeGLChWIHfmk7NBJDlKPJvRRS3QyJnINWyPWElBSqwVBNaNRJkUKQxT DAwMD QtHJ4TMgEnWKWyZaN9DYRqIAFaOEVcxq8OBXQsUSSvBNXvSEUbDROqUFMrRFghCJVrKTAoGSluBOLcKQ AwIG4 TJxSxEXHaKgS6BVXiRYRfEZIzzd8OMXXpIOMrPDN5UUQqTILoPCJrRMldUYEeVZGuWbBvNUFiRTBuDR3 NCjAw EVKpItY6YFCsLYCiPUYone9TECFuGMAoZIf7NCWyEQKtWZEaEMzwNBIrMLWmRHF8WZRjBGQkDJ3VWbQr MDAxM fT1FQilNFXqUMKrer1UPNStDGOqTuNpCPOmAXXgPOWyCKvpDIXiOSCrOTq1HENwPUShMB4OBnYuVWTlW zIxMj YyJCOeVMVrck1QKPXsWPVeVhG6LNPvBYPiUWMfVGkaGGEcLPKfFmT1CCGpEJQbGE1EEjVhNBOyRpFqZK QgMDA dVQUdig7NAXEmLTRqXyL4MwZvDGVaGGXtMLznFELgIBWxUJRaGSGeQTGrLD0NGcDpNQMfPtF9DSzxXEH wMDAg kp8VJQLcCWZoRaU9FICfBDXbSTIfPRplBTSnHAEzZHb2HTKbTGVnWR4IYzElBGUdMeC4ZYTpCKGkAEZa bg0KM GOyHEZlZfA3GkZpJVAxZXCtWCqgKOBxEWJkRxQ9HQOgYLSzZG3YLxTpRQVoHxF6NEAbMKOnLMBfax8KE DAwMD OqVyy7VEXlDUCsDBYtQUxpUSInLQQgSYX0HURiAAZjZL3UVxKjOPQxDcA5HREhFWIwQVTacf9VHTTuQM EzMzA uJcLsVOSjPKLfVElvRXPgDXBtCPa1MWGzYVJqRW2WRwUyGJMqHrKnFfykODRwBJZxex9HGBXxSVCwAfQ xMiAw GIGgENJbOYolARIrKZIbIyP2JVKbWFVyKQ3QDhOaHDAfXuGqGUTuZBYhWBDlsg4FATZmUGWcAcR4TYRz MDAwM IMbSCkmQWHiVMSbFSN5OXDcJYAaHZ7XFyAxXANiIaD8NBGkRCLjZXTelz6AULVmQIBuIdO4QMMgMXSiW CBuDQ vrZQTtKMSjSOudTTVqXNOuKX9JZwHxUDDbJjZ3LOceODEiRXZhwu4QCJXxYRPjGiqoOgXvBPYnVFIeKM owMDA rGVGsSfesWBXoXXBsPU4DElRqNMHdYcP3MNUbUDQuJNOgcj2KQHRwGNRwHlavVGFiNKWfIXEzXKbbWWK wMTMz RMw6DFBjIKHrUI9JYqTmJEYzTxOeZCGkUJOnOVDbwq0NANXzPRYzHLYgEMMjSODbRSZdERpaGLJpQVN8 MTcxI NAiAAYmUZ0JVxUoOQOgCtZfWcjrRAQeZNOlyo2NEKQdPVMoRDD3SdGdWLIaGSNhQWvvEKRiYGM7ReZzJ DAwMD UwFY8KPbFiVZIgBgW3TGOuINRbCPIjhn3LKACgHEUrGVO2KFBqKCQaLHPmISpzUMNuCXB4ANPoWEHaRL AwIG4 RPnWhFERxInX0LUNiGWWtLKIxff1MQNWuMONgRSX9BsWuMCIzXZMxNUmhHSIxENY7NuZqEHTzXXKhGT6 NCjAw OJIkBrV2OHOxXCVjHFWvnp9WIHPdKEZsCBb1ZyFiANGrQOUyYJbkCCEsAVO0ZYW6VGFeKWDeVA3NAkXa MDAxM vCdJMImDYZzUGVecz5PMWKaNMIrYOR1TOLnOOQmGCNyQRjgNNUkCIJ6YKI1ZKVwXCJsBN2OLkKoQFJaB zUyMT HaLPJcYSMdvh0QJEIiQXGsSAA8MGTwQANiZIChUHtbXQCrGJH0QiG8SJZbDWUtDM8MBdDoHPZzErQjLs cgMDA gOPVcad3MUNLeRVGjSCXuVXPqMMWsNAVyGFcpNLGyRHL1ETi3ISDjZTWuRC6EPhBoWFDlScB8KmBxJWJ wMDAg it0NMMTbWDXwJCC4VMVsXUSvUDVrZDtcMBCfDOH5ZeW9QAMbABFiZK4TJtChFSClGsK3TXHgEFRpVPBx bg0KM SVwNPQcGPf0RtFzAIBtSCMvTXdnOTYhBJH4Ins4FXOpWMGqMY7IWcCeVWCbEzG8ASAqXYHeKIIgmk7KY DAwMD FiLHsnIPWhRAHyNRKbGJenJRQyPSA1YRV6WHXfRBGzVP4VYsBmLLOvZnNsIDQcDMAnNDUswn8QHUAeCO EzNjA 6SDReZAPvDGVpKJfbEIZqEKT8EYD2UXWpLIUkBI1YTkCxIALlZsZhCuKiAPYeOWKqfr6UYLVzFHQcJgV yNiAw LCVbKNNySKeeRJRdJUE0EmpoDHYaIGZiRV8YZsPdUQGbQkRoAuKgPAXiPYAvuf0LFTZhHYLhOrC9IvIn MDAwM VSlSNygROXtHJT0IQKgYUZePUGdUF3NQzRaIJHbXeE8PmphGIFvMMYakc1SFCZjCKMoCcAgJUSwUYXrO CBuDQ edVFVbLXZ0ZQa4ASQlYHKvEU3CZvZeBYDqBnV6CxuwRMBwMGCazd4WDPPlRSEsNnG4SHAeHWAqUBIhHO owMDA iHGL8PoB2VXPiDOUmCS4ETvZoUAHzMtV2ZFlrDQKxDAIizo9DAVPfHDKyUgx4DELuTQPlHQFqNNoyCUC wMTM2 IXK1BKMtQOHaOF4MBzEoTPOvOgjpTWfsEOWyUFYbim1HOOZeOYYuJeU3GrSeGZJoSECwXXxeUJZhYAJ2 MTY1I HYkPXBzIT4ZPcBrLOIuWuciBgJpFXRnYXXppr7KTMGlSUTvRtQ2JcWfSWKrFQFtMEgjOFTnXGI5QoE1B DAwMD OuQG2WNsYzZFByTawqDJXyHKRcMAKeer4KGEGtJGSkKhQvONUrZKSzBSJdBTsjPBOmQTU0WFo3EXNvZX AwIG4 LBmFyWEJjDud9TWUyYZCvOVWqrs8HXPQpQALpIqO8OFHjMTLnBSUaERlwXWKeUEU6OuR3OKYyIIQvSO7 NCjAw FTOzAge9JLYnDWUzTZApip1TVGCqCRTmGzu4PjHtWJNnTMDnBTbbUXVcOLB1GQFfBIYwLIOgDA6GEaXm MDAxM qy8EjXbWDEfEUGrvw4MZXCeHXUqBtneIiWdLPPsPFTaUJrpZXKnFIV1WLVjVBSeTFJiPI8CRhEyWWPlB zgwMD YuXHKdQPOdzz1TULUxWDCzCZU3IEPzFTQnKPMnGKoxBKJqSMK8QISdSYBsUXNcQU6YDtAcFSPhRxbeEG AgMDA eTWBmas1DWQCxEOAiDZJlYYLbAKSwVDPnEHwmDKZuILO1EhmiDITvITOlRS7APiBsYONnSnytNqZgMHB wMDAg au1STAKeYJSxHCK2PFPzPIEyDBKcKEluDIZzYYK5EOT3ORWgDUKvQF5UDaEfBCEwDez6LIxfGRDlEHIo bg0KM QQdAVOrCPA8MuFiVQCeRAKxWZdkPOJyDGW0PFz8TUApOHNeMX4EYkEkWMPrShe7HZawVRZiRBIuuc5HV DAwMD SgYMT5RAOpMWRsLAZqLEkyJLHyLAL2EmS0GZXrHEIwFG0NMxJqYVMzRoj9HUPnOBGiMKBcmi8ZYMQeXT EzODg 3LJWwZZDqDZXoSOvnPJMpXKJ0YTFmAXKmUOYdIB0RJsYhZMPaHlh3YktaYKOxDBYcmd7DCPMvAROcTVZ yMyAw DUXsRPXzJZynEBHqMXO3CNn2ICAdNEUnBV2EHmHxZEDyFeixRiOaYIHtYTHktv2PEGFtLXFhKTW5IFPz MDAwM NCnPDpzBSNiRVD9GbJdABUmGMAxZP6MHhJiLASwRivbKIBkZFWnXYJnrl6NIVUfKQHbNJPhAYAbXRUnS CBuDQ eyNJGxSNH9CipoIXNeENMzVB2IBgZmQBFtMgb7ELJaDVTbPRDkqk5VQGNaCIYiXCMzGLKwUMAmJZFhYU owMDA jXGB8KZcrTVXqAKTrMR6BPePnPUOaZvc1JnxyOGFyIRNpxm8LXLAxKKGpEIA3JIYaVMAfVENpPNolSZV wMTM5 CqF6NLLaJCNuBD0ACqNeKDAvJeh1FXNjETJhBHSdlv2HDCXjAONoVJk1NdKyOWUsQNWaQLbiOZQuFWD8 OTA0I HMzXDEpPD1TYnZdWXRiVuz7BwHfPRCpDCNqmk5DTEToWZW8XGJnPENwCOHfKKPsHOueXNGiFKDwHVzbJ DAwMD CzRV2HXgYqQDAhBBQuYKHuIFGaEDGfkl3ZYLXqEUP4OBLuFPBaRUGbLHCnFHtlTRAvKEVmEfLxNPQcPY AwIG4 ZDvIcOQEcQQDzDzUaDACsAYKvrz4ISLKqVVN7TSHsYEKqMLDcWFLiDCmyTBNdQLSpXOb4EGAkPVBtZG3 NCjAw JQQyWSS7RKPmNARvQDBqiy7WYIRbCBH6MHUsPLRgGSIrEZBoVMbkFIBlYYWrGrH4DJQrQVJyNZ5NOgLg MDAxN JW3IpOpGQBcOGSfpa7YQQFhETI5CCs8RyMtHJPcDNZqXZbwUTQgJYKnKQV2ZSKbGYGkNT4KKyDuSRZuU DA4OT VqJOMtVBYked0LXLIqKTY8EOb0SCVnMNQwJBDcQLusYLWlYWFoURW7ADEjFESxRM1FSxUnPZVrTTXoLh IgMDA qMLEyjt3ENMWmWLJ6XSNvVhDsHZZnONExJIcwJBQcTUEgKSp9ZJQgKQWhLL3GIoGnEZWdWUJfLEXeDMK wMDAg xq8WIWHvICB8CUNfXQWtENPrBXOpKYcrFEHgIENrSoG8DQSdMSIcKH2ECoBsGHRxMDE8GSdwOLAeDHXk bg0KM ELmAOB8PLB7TgNzRPYeZNQjVRthUTSbUOCzKFFiXFVjGZNjZZ2YCnPzTTYaCTF3CWKgYEKbMJIhjb2MB DAwMD R1FMW6ZDLuQCRmJNBwKLeyWDVoHCAaYsM6TQSaNBMzQS3IZcPxEWHqENP2KXPxBLXeQXMhsn8ZTOFcGM E0MTg 8MEFfFFMvIOAbEClbMGVtVHKwEDY0GMYoHIVrPF6PTcAtACLtPKR9LHqyJOImBMLrrp4FGIErDLG5KpM 0NiAw QNHiPOGyLGmwSPKgZSYyOYD0OTFuOSPoIW5DExZnVYHyAOKuFlKnLICeAGVrgg5BMUFqPUL2JxSmFNMt MDAwM RSdCIdqOCTpFTNrEvQ6AGGcWWFtAZ8PRyJhWWNsAUUkJpYtUPCsIYBuco6PQSLyLQW8SxI5WhAgHCBrR CBuDQ twXYWnUQMaPLU8WNOdMKPlUA0RFpIlPJOcUUB5AOnmBKHsXSTcka2KXFImOGY7ObK3DyTkTBJkAEBuRF owMDA iRNFtVxCwZWNoHTXeDD6LAeBxCDDrPJF5CrMfOKWcMOXcwy8TDBRkTUG1DkvdISYkPVGkEMOdBQceVYY wMTQy Nyg3WHMfHFJdNX7OOqLrCIJvOJS2AZZvNNEgDTQtgm5EOKPqGMI2PpioAPMkKFYmTIIdPWdjUNKdGOWk OTYwI LUxDDGrDI0VIpNkEHYePHLoKuKkSNTsBMUtgr2VXUMbDTF2OxA5LZRjCPXqLXOsNRavUUIxQRZfZUY1E DAwMD SvFV2GGiFrTEXzLYWcSVvhUFMjZPAxzd9DOEXjKHT0PdEnVSXwCWSlXTQsZZtsXLMjKZEwEwG5IKBeTC AwIG4 VGqByLGCdEOL3FcGtEXIvGOFofa7ASXIqMJJ9CrY9SUQyDZTsTSTjMZmvBRLmVGKySHHtQXCoZXOdQH4 NCjAw MBGlCXV4OMGyBJTdSNRqbz8VHPVfYKW7BqL0OTKsHDPsGKLkIHxaJIWqGTPnGyG7WACgMBYsEN6BGcLs MDAxN YI6FBKsQTAwRIJven5WTXZeHUB8Utw4UBIaVWCfAEBeLMzrLRKaBZHmYWHuONCnXWSsWO1YEuTaWNGvO DM5OT viGIWvENScmq0IQNBgEQU9YPV1BUToMEHeSQFkCTsdQLDdFRU5XTj1MSRbECKmCR0ROlDxHYVuTBLxCE YgMDA qVBCwyq1BCYUzPDK1CMClFLBoOKXlFLAyOUkcWPZcKKI0UvwgJCVgWGLcYP6GXpHaKGTfMTD5AyAaMYX wMDAg ur4FCPRiFUP9BJXtJVIfNSCmQMHbRHuxODDjJQC0QJa6FKBgFVNsEE8LPeZoEFQnAQH4MpDqNVKfTKLk bg0KM RTbADI6MMigHbYqMOSbYBYqUAavAGToYPQ3UXPyGPPaNRBjSN4AShKnTOXqEGA7OQseKFFeQKRkyv8CW DAwMD I9WWbhGSTsBUCePEIcIAyeLTNyVZY2LYafNBYqMGJtRS8FCuNgQDGnMGMoCgNeCXAnXQBiww6USBEfQN E0NTA 4QIPaARJbHVLsURpfVVHcPIB1BSK9IDHfFXSvXT6LCyHsJNYbKCCuCXisDMVoDYZqle0KYOMsUAN6TPB 1MiAw DHEfYROpMZxqNGCrJMF0UzHiTMJaZFCkSS4EHiNsHEXjNEPyJdBhMQIuTWVrbv9WFPQoWIH2UXOlISCb MDAwM AQiEAmdUUFvMQT6JOh3HWEbHJFaUT5FZtUyFGHpFEC2ZzesYYLqTWOnsb0TNPPzMVN5CRH2YuZpORLxC CBuDQ htSHFgVZZ1MwTfTGKgQYIhIZ5HMkRlVDKmKRX4RFIuLONbOYUxmp2VQIYaPNC6RXc6BtVzEDPsHAUhBG owMDA xMLC3OEFaLHRmIYGqYH1MDkLgRLTfUHL2XrXbOXErLZRzgk5QCTUtUIW8IAimSCAgNQEiSNVrKVmqMFJ wMTQ1 MFt7OEHwHPXtQY2FTrQaECObHVRnKZalPNSkGEGmtu6RZTGkAKK6MfLsZcOgWZMtXXZlTXguFWDlWHT3 MTU2I TBfKYGsAD9SLsXgQXDxTJZyHZAcLQLfTWJqgy9IAGSkZLT0VnS2DZWmAKYrXGIdTMlzGGRqUIE1JrI4B DAwMD CiNR5YYtLzSSCjINXeGCVaSIAuLOWtnl5JWAQdKCS1FhN2VOJoRFHeGXLtOObhPIRnRDB2HMGeDIFfMM AwIG4 PZkMgHTLsZLP3PFUtSKJmWUEjdb5ZNXTgIMY3WqQfDYTpTRZsKKStEPjjYFOhKZX0ZvS6BLYsNYJqXA5 NCjAw QLIkYCI9GjPxDCKyOMAcad8OOCGcZDR9Swy8GKAvWEMhZUErAMfgFWKaCLO4IPQ4HKLbKMIkZS3ZFqWa MDAxN OE0KPNkEJFbAWLwkx9RHRSeUYH5Frx9DQXuVWKgBUFnJIyhOROuYOP0FKK1ECLxTEFyIN3BZwXwAJVrB DcwOD QcBGNxQDCzfx0EQNVlNIX7RwD9LFMkOBZqXKVrEWewUUUxWHG7YRy4SLOnYDOjEA2JLxKmAVRxVOieQP IgMDA cBRUqnr0JZCXmAAJ5TgGvLkAcVWOpAPNbLYxfZYKmZDA3QsCyELFdKMVtOW1UBiKbCRKiHRk9MqFcIXB wMDAg xc3EXLRcYDG0AoXwGoGiVZOlRIAyPLblPGQbOVL0SmY1XMEwXDLgIM1AVmXgLGQsZVf9RssyOUUhCNFn bg0KM SLhZEQ9Pop9RzWgAAAkAKFzEFkrUFBhSHK9QKB2UTMeWXAlOK8LCqJfJBIkJZb5KqNzHAKpKIAowo2ZA DAwMD F0MGVfYAOnPQOrKJFbKGplJAXgETZ0LXN1QKJkDGAbKN5CZlByTBOrUDzlFwlnQJGjTGKqxy7GUJQiLG E0ODI oSPJgRBRgALMcHNcxWPDeOXE5DmtdFDXxUJYpSG6SBlMhIFKeOZebODIkGTYcYUUxsp6YGVVwVSW4ING wOSAw GMIbPTOlOGewSMKuBFJ4BVt0FZUkDIApAC1JTeXdUSZwFHo6MXEpNGTzPMSjqn4LMQWsCVE2MANrNRVj MDAwM TKrAZalKGHyGWR9KbZaKVEfHJXhBO9ZAvXjSCCrDAx8AmKlCAHwLGQvdk5VGPOnUQR2XAd0IKDqWEViB CBuDQ lpAMFnOHY8XWUsSVZzDYShBD9BJeSrPUTgAIo7XnGkBKFsAVNkzq7RHXZdCIY2HHBhRCLoYNTpEMHaDT owMDA tPNO2LDqaKIZlRUZeIX8UPyHzZWQkFPawNKFjLEJnDXWyhj9IROMaYAJ5NMFyBhWgZJVxABMwGFciUXF wMTQ5 VhGsLMMoGVNbWO7XEgUiTQZzOEbhRzHxCNPuQGLoib5IWGYwUDK0MEG0IoGuRULzETUqYFctHEVpZDN0 NTExI CBhUUViDY4CPfBxSWJzUSw8BcSvZGTtVTFtxg5JGTVyEID3OZEcHvWoZGDkZRUoWCrwKYSfPVD6ZjChY DAwMD PmBH8UOnRfVQXwVRm2QCViCTMoULLfdg7ILKFqFRN5ISg1BXQvACBjBIPhELkbXCEgCOV1BQFnEFNiSC AwIG4 ECpVyWQTnFEx8AKZqFSHcMDUspo1QDWVdRAN4MYt6VcFnCXGhJEFwHIhyQGEoYSLpHGLrHZWaOIOkAB7 NCjAw IAGqXZMjXZYtQUHiQTKasw3BHESwKAO3MIXqIdNmAFOuROJsWRacTKGjTAToNTcfHEGbHCFlLD7PEtSk MDAxN ATqKnPsQXEbQTEche1HZISgVKP8CXP8MBWvZLZoAWUvOOedFURwZOYkXdO0BVNcMUPzVO3OXhIiEYAjP TAzOT bzOFCeLOOgev2YCMXdDCL1LJR1LrAwGTWeWFTcSLvtODMoQXNhGZVsHHTrWQKeWG1BFpJqITMpCPX9Vy UgMDA xVOQmgw3PTTPtAYR0TSQiENWpLKSkRFRuTNlrRGTpVNClZiy6QIHjGUTeRB6TLlNnQNJuDNG8VtjlDGF wMDAg df4LDNWqTGN6AOt6MeDgDDMeIOBuJIrkLTQiLTDrTBBnMMZbDTDwBD3SYjKrESPlTFS5RQQqLRJrFPYr bg0KM QFbCUN1OZw5XWHtFOPvYBJeXVnaPWNhIVBxZMi8CHLxLFEqAF5DAlTzPNQcZNFlUdYfFFRhUWOctv6HL DAwMD L1OWO0FCFqBGPmPWTbFEgcAYOoSYYhDDF8WTImGTBjGZ0PHdHwOLUuZUDzARCpULTcXWKfzc9HXEWuNQ E1MTI 3VRJaPGHlXFGxWHqbWBFkZHPgJxPpJNTkCEByKN6QAhDeLBBtHUCsLDCmFPDgZIBeob6WPEEpNVJ1GDE wOCAw JYKcBJIuHLqwETNiEDDvPBW0TCMhBXTaFK4AShIyHVSfHAV1FjPgSIDxBIPywg8WVAEgNPF7BSO1BEQl MDAwM MTnHPniUSLrWUAzZiJ5PBZiUGDnWU9ZPmRfQUNtNDW1KGGvXOJcVMTehr0LMDKyUXO3FObiOFGkOTOcC CBuDQ czKDOcUBOvUwu1BFHwKEXeDA9WKtMcUCGrEUP0ANAwVKAuDDVoiu5HNZViPZV2HTutDFTvYBDsPEUnLW owMDA wOSUvFId7DUQrNRQnZI6UWpDeLEApNEFxCOZhBRUwFOOlwd3GGNKfLUW1QcD1GnHoIKJyUKUpVEuqOFS wMTUy NYYbNEWqUNDvWX9JVzShPIDcUVWkBXDhPSEzKGDtqu4SUGDtZVR6PqX5WODwASMoAXDmZBawMFBoEIQa MzE4I PDwCIErDV2XSdSgGADcROBmZCVmHJIhLCIydm6PZKNiMWM9UcJ4INWjDXPfKXJyHKtqHWLmRLOqMUEdH DAwMD OfEZ3WYaVeOLClVXD9QOXqTVDbVCOxxz4PZEVyIAY1TxPtQTBvFAJhEAOxHEfuBJFvXIPmRzE6QTAiIK AwIG4 RYdZtCSAiGID9SjqmUNKyIOBjub2BVDWoPJT3Jep9HoPbKAXvGIIfEFfnJLEfIZZlRCG1DHLwFWJcSP7 NCjAw GTJmDUS5ZEFnIYXfRBAgev9FKRUwKPE2Lcy2OPMfQGOpWNXxLDgqRPPfFDOaSAD5PTLoBKQiXZ0MLrRn MDAxN GPrGuWqBVZfJIXsas8LTQWxADT7CbNlHUGpRNYhFMGvDBpgPSBuQTVdFYguRJCiGDWiZV1WWwZyPERtL TMyMz GlEFNeGPHdlk3WDDFhEPA6VcB5DKZsUIFgLKPuUVtmZPBpAHVoNfP3ZKMnGSOfDH8BBqFbXBGzMHD4Hu kgMDA jWVEurf6IELQgDIV4PrN6JuCfXGEbMYHyXSzmOUIwGELhLLW0AFIuKTIqWZ7VLyQzKXCeLGA8ESSmEYQ wMDAg go2MWAQwYRD6OaC4IXDrNQEtKSTbNVwlHCQvKCNiJcV9HUUxFHStCU9ZCeHpMFFxYVD5PkDrIIZiMIOl bg0KM FEjNSH0RxxlEzFrTANbRHPjXMbaEIMnGHXyKXgcXYPrULZwQO6GAbUwDCAbUUZ6UzRbCBIgYQQwdv5LN DAwMD Y0Syd8XQYhSYOwJFNqXDgcFOGgIPK4UKP2PDKwQIRuYF8BCdOeKRYqBPMqQUcaBYQiHKGwgk6GSAZwNZ E1NDE 3ARJrSVBvALClIXrkIKXxQFT2ErU0PPYaTNIsGW5WVqHaRHRmWUSrGSVoEFAdVKYvor8VJROeALO5QJJ 0MSAw RNVaBLOtALdyMPEmPQI8Hxb2EMRmZXQrBY4DUvKrRZDiRKA8PLCnXHWwTAEswz5QFWOpSJG0YZV6YJVr MDAwM WFfTNrySQKcFSX4AJA2HBOsVDYeEA5EAtGcDOKnKDG9JEVlWJZzGJKnbs7NKVMmORS8KUW2ZLXdDAByR CBuDQ doWODhPZP0HdS4KSTmFXErVN5ROcXqCUWuMLC4GFLdUJAbGTOnxl9OFZLkMTP5JNp7UREsNKOqPPIxXX owMDA uUDO4RAD9PATfFHUsRH4QHaAkAMRvAWKiZOuzWULtZMEicq9KZYKlBMW8EMA0ECKmMAOaUTCrMCjfTWP wMTU1 QAQyGAWaLPZfLF3CAwEdEZPnDNJrRQWwGVUrPIGuuo9XDFHmHZH5SHG1GpSzEBEzZIKuNExhGPYlTMH4 MzQxI BBhLWOfZZ3IGmCtDZFyIDN0OCIgEQWjVCVllt0NHROvRDP3WQU5XNAiUQIfKYYeECjqSHJdNBA1QKSvS DAwMD YaPR3BCuCrHURwTHP2CpDdSPWmFBVrok5KJSQmQXP1LXP1IGFwFBUtPLKgVGxkQKBvZWA5GbNkWJLoDW AwIG4 MAlAiFMVzVTX2AXVnIQQjYACjbp2SQAKzNZC2TAx0QZLiQZOdRPLzTSubOGWiMLM2SHb3DFFqYMDqAB1 NCjAw SJDiYMQtObSvBFSvTFZwdn4KZEHdBZB6VbL0CzVwDNOwZBIoAVqvUIDlVNN8UCQ2SBKrOJRjNU5NWfCd MDAxN LVcHZOeZBQyCBSsfg8FNBEhUZV1PuZ0HQZrNLDkLLCtVPgqBOMaMQV7HwU5OVUdWJYnMD3PBpFzCDTrD TYzNz EvDVXyISBpqf2YDLMkNMI5MyOkJcIoJATiHJPyYNcqPZLlJLB9MBg7LQMhUISaKX4UUrLnRKMuRIS0Qs MgMDA qBEPnkj4BFYFtRVN5FoJ8TQLvNOGpNGAxBOauKSVjIVI5GoE5NPLzGBJtPJ2BWaZnQJRgJCY0NcswMAA wMDAg hq0NMHPqXSL5Ggi1STVhXGIlTCLnAGyuMOPjODV4VVk7LLEtHXFnMF8UJoFaNMMrCAN3LSWlGFRiNTAe bg0KM AJiFEJ2WqUcSKFeSHLuRSAhTNodQDWcJUG1AYS4ALKnMLCtKK4KAdZaNCMgUJmjAzGxWOVsESKedo8QL DAwMD T6FjJuNnQcFCTuBVNmAVnpQQVuSKB2CtwjRFGmLWIlHF3PRlKkWAAbRKqbGpovFEBfKTEsbk3FTYFlJB E1NzM 0MBYpEIAvLAZkBUsxYGQbYEO0IPIbKLQlWVLtGM1OXwFpPTDzSVf6ICDyZMSuPSEwpu2QKFFlFKA2FqW 2OCAw BZXvSQZePEabEOYnUMZ5IoNhOVYqYHNoSM9QTiDgOJJpMEq2PZIbQVRmBALqwe5WJISkTWK8Cpu4HbVh MDAwM AIpNMlgDRHyOBJ4VOCiZVWwNJZgTY6OMkXjQCEsMXpbQUIjEHQhUJOkkk6ASUQzYCM1NTO0WDEhYIZkZ CBuDQ pqBZIpJFT4VDH1MFEcENVlEB0FBfXeFAWxIRvtPGrcLITiQSHrug3DOZEtNAW1STZ3LYHiQERaEWPwGJ owMDA wAQG8AzTvLGZzYSIcHV0KAdVzXCMzKUo9JaZoORTkUKEaqx5AAJXgGNT8HGN5EwIzDTEbUWRlYEcmXXP wMTU4 QLP7UCXqHTGmSJ1UVtFwACIhGOs5BXUyFUJcYCJmij1FIBMoWLL5IWswFoXvWNNrQGEbDCoqEOGrXEA8 Nzg1I SZuZBTbDR8XDtWaCDGyRBn2PCmrBXViGYMnxp0VCKYkBTR2TBfkZUArGTGtQCHuIRqwDPLrTKD8WVyzQ DAwMD AwMQ9PEuAkPHSmNYenKankIBQuQGVnwj5HDVRdNNN9EPG7TaGgJWQhDRBjRRymSAFnUTG6GBI5YWCaHH AwIG4 MNfNjSIUeWDllYMpvJPIpUDDpib1HCDPbLCA7AGM4MCJoEHGuTLUdYWlnSZPnKUS9TqJ6EGPsTRSkTW4 NCjAw DRVgHFumIERmEAXaXQNkdw7XENGzFIN9IFM3BTXmONLdZIAsXFrrHHVuPCP1NWF5LEEtBZKeNS0INyMd MDAxN Ih9XsYpJWLfMMVwrs8RLIYyHAO9VOAaTxJwZVBhUYStCWtoBQNmHGW0Kfp5MQXiBIAdQT0LDlArYKJpT Tk3NT BoZIXrOAVkmd0JHMGpNKL8BRgeXFWnHLJzPUZsUBcwVVGwXKP8XMssWZDdIXIoZP1IUmAzHGSrNDv4Ls UgMDA oVKNbgf2HNZXrUTS7NEt3JRXuDILgNNGuJTxhCSEfXBPwSHY7NNFaXIWsGD6URwZgQAIiGqRuHUdvEOB wMDAg xk0IVTJwONV2VTQ1HRKoLXPtNBTvGIlyBKMlZFMyWbLzLSGkGCRnRJ2YClRcDOJzDgGuOWzoPBHjOYDs bg0KM ACdMYH1ZCR5VSKyENWxTJGeEJciPLPgPXNdAJSeYVLgSZXnJM7USkXdBXIgMpC3OoziRBRbXPTmzd4BI DAwMD A5HGHoLNSnRMKmKACjXDdvGUFtLGIaRLj0LKEyMLKcNC9XCrDcDQLuAbS7XNKuWDIeYAJcnv7TQHBaRY E2MDc vOVOeIGBbAXHpGRwiGCXuFAOdTrw0XQRpVZUxCY2TTuVoSAPmZvD0VAMeBPOwHVBqst6GDGYdONC7FGn xMCAw RECcXACaPSqzBKAlGRMvTUP5VEXjTFQhDH8DArHbRSPwIoHtEsQrMUAcKUJias5INQVrJSC5DQJ5IDWs MDAwM FGoSBcuNBMeDIUoRRT7TVAhMFSlKN9JTmTtFJWzJoMzIuyjGJZhBAFpyl0MPXXsLHM7BVC2RZCiBZUwA CBuDQ ltGVDnSKQfCbNzZVWaKJNmEN5RStDiZGXmMjE4WKLqARQhFZGnek7JYSRaVHA6BDW6SNCtVGJkWJTqFH owMDA eHIJyGOP4QRHcYZXpZP5NJiSzLEHqDcT8LRVcHDWnHKBmkr3JXZClVRQ6ZCG5NPLhFBWjKUHkWFmsOXD wMTYx BnU2HDYjNZRgYI5XUoTvZWCbMaV4NRhaOBXzNGItru0ZFDVvCRV0PKh8UMBlXLWhBADjLOqcIOFrLRYp OTA1I FQwBIAgZT0KSgZsMKXmNpJ9PfYoZATiXMTctn6QOPMzDGZ0ZtPiQkPdUHQbLTVaQEuhOIXkYMDuWNa8G DAwMD IuWM1KVsPoQIUnEsAaKHTaTVOaMCIypq2HVHIlDMG1QdO9YtPfCDVmBHWsCTbjFYDhLGTmLqBaJMYxFP AwIG4 PHnWkHXVjEeE4NjMbCSAdGXFslh9VEQKfTRS2JvZrPEPgYYDhBNXqWYqzFHCpCSQiJtA2OOOmUCCnRA9 NCjAw KOWrGeH9KbaxUAEwANQwxx1WEKCuPIQ2Wrq1WKVaWVZaWFUmBTymIIJkHJFpJUMfNKYcBBSfOB9XEvGm MDAxN pQ5CFUgCKZgHNItsi4BNAHwMZM9Vmi0QhPhIKWqRJHhPKgsDFYvDGOzGMG4DIGgJBBiTE4RZjWfXNJaE jMxMT ZgWVXnSFChyh5TJZGnWXY6XjU7VjIvTGVsINDyEUqhRTLwBIIyMoQ7SADiXCKlRP0LUcWsKFAwAaPhZh cgMDA qVFQczx0WVBTjOZK4UvV6NXIeCNDfFIBqIWsyCFSyAMHjDKldAOWgXORhHF9OPjIdEHXoRlB7IDCaBZI wMDAg fa5GKRMgPEF0NcFdTVZoPIAlLJPuBDjhOKFlAZBzEim6XOHuQXJaXC9SBsOqXMZtZzF8IwflYYNbAQPa bg0KM KGoXOE6JgdaCDMuWRPkWJFfEXtxKCLfSYLlNLE4EEJsHQSfHG1HAkDbSBWdFqN0DLafPPLuASGajy4ZX DAwMD K1Xvf3FQTdCCFtYXAyZJtrGCCfUFH1VTY8UTLeCYChOK3LToVfPGCnDoYbBENgWQPyDZJqch9CBXLyJQ E2NDE 1CWTkJVTbAMOsSCarPNNpUWQ7IeC4CNIoXQAhRM9RAdSdXRXfOzZuKvViMDKrBTUugu8CECRbBGI4HBW yOCAw OAUwGZTaCKvyHOTfEDX9UlstBINjLUFbWA9EXzIdENRaRbR8XSYfITWuDLVzis2XWKPyUXW5PHZySQGs MDAwM WXpNYlmHCAzQFW4GGL7NHCdICLzTM5PXcRqJZXnKbA2JmRzTGHrSSEyrr1WNYPjODA0YWM0SMVdXLZrB CBuDQ erTROgVPP6VtT6ZBEiRJVbOF1SJiLqDESjVwL4KPDyIPKmLCZirn1AEZZiYII6ZZz0KuNyBAZgAMKbTV owMDA zZJJ4ILU7LSGnMRFtFR9CHuMjMJTiLyH5DOKqZRPaTCJpmx9DLVCyHNF2NMMqROYlLNRgZASdQKmpUAX wMTY1 NBYtPOZySSTiDZ6BNfKmAJTgPiNoYzBgUXCsZJSsqe9DVEXdDYN6AYQoFAHbPEUnBLHqYGcxPZOdHOL9 MjgwI MUqXBWnKM3UVuWzSJLfXlRuYNVaKHRcTNOyna0HDFGyBLN9KVPmRQTtZQVxYIGxECscQSTaLBU2QFM9K DAwMD WwEG5QKfIgHXEoJoM6MPYbNDEjKCZmbz3TZXOaRSN0QOW3BgWoUJXpKPTvOIppVXTtIKD5AcW4WKWfFL AwIG4 IMxZtBWHnLdX7LOExWJJgNSUtpq9RRUIyMLS0ZYi3YQLsCIQjPSEoPEtqIMDvLIE1QQTrFCUdVFPgPC7 NCjAw OUJbMfU2OfQbCLVwGGIpfb8FENGmPMT2RDxhAyDfFPYySYIkCHfrEJVwAIV2RAtfOAGmIKVlCZ7ILgRm MDAxN qIdSMNiMTFxLPJdns0ERKIvAIG0EnJaEyKeGHOzEHDoBIxwMBAqCCA3MOG7RMVjEFGuBQ2ECwJvQYIlR jYyMj RwLJAvDOMemq5OVZXcBOD5XdX0HbEcSCVsEAGxIOqnTRWuTPT6FkB4FIVeFRLyVN8QCdQtPYOkZqJhUY kgMDA nOSQwwv4HWQCwKEF2DfV1MFUnAXQdKHShUYxiHVZhMZE4NGP8RXChTHCmWQ0ROsRcFVMrHzZ6UhoeTSE wMDAg ew7AKGNsICD4DvGrWeRtXYZaLUXeNLgdNNQnBSS6FsvtCNIkPDKkSL4VNvBcZAStKwF4SGLgJGAdFABf bg0KM IZpSKR4YdrnLhLwIFGxHIEiGImgJVObVOR0OJhcCVRvYTSvPO5TSuYuLTVpNfN7AgFnGINgAUPojp5WX DAwMD S6Vmo0ELZjNXNwPJEsAEebICKkEMA5ESKaSWIcVDQjBP6TSdQxIJEpWbsiYWEgYNOoGUTinj7BMLVzSJ E2NzE 9VQQxOEQtIOGsGThfKHOeFMV0PyEuEIKzSPEgNO1SGwLhAVWlTmtlYAKeTNXgPHPhub5SIFFuIYV5EiX zOSAw YSAeTVDeGIpmVNBzVVU5Tat7GHJjQLNqCU0MEgQkBRJpBpc9WHMkHZNzUOWfvz3CWMBuIQS5JwLqZAUf MDAwM LUzEMqqLQBzHCW7CZzaMDUqULKtWC5IOkFqUMMzThf9FVsxDVIwQLRntj6UDJCaNFZ8LnakZEMuQCGrM CBuDQ ldNSTsPXA7BchiMRJtLFFeXU3RNsQhHSArPvm2OdJdAYQqAQUhom5QHFNdACP6HjvyJUXyNQGmDBThTI owMDA bJUV6MIh5OOIsLEMaBU7UOlNdLUJmQjweDvbeXNNjVHZwoq6KQJChASV2LRF3RRHxLXUxQHRkTAkqNTV wMTY4 TYOhUOTkZBZmUF9SKbPuFMLrUawjCTIbDHPxKZAkor0NOBUzRDF9GJF6ZdEkXOGmVKGhUDpsMULdXIP3 MzE4I NAlGTFgOJ9BBrChUFUeIinbIlKlFVIaNCCbup3CFHBwKSH4HRUhWcYbHNArNURlNDayJACsYGV7IZskO DAwMD BrJD9RRhRjMTSpJhj0UITaTEGrAKCclw6HHMWbIMX5OFTxBjDtSDBoXPUlPOncJXTbJPI7YqP6EFPmMZ AwIG4 GAuNdRIMuZbi4DlLwRMJeLDBpvg7MNVCmPTB8TRw8LwRiYMCiBGEtZXfuXQOmZRI9BTEnABLmPQSvMU8 NCjAw TYFdWta6GlutFHAlOKJvwd7JBIXyEXI1ECx7OFLhOYRdHWGgOYznIWTwMQH4ZHe3IGBeUSXpRM5PPrGe MDAxN pknOGoqBPByVWFgzt7WLTVmDST5EJX0PkMvOPZsFKRoCQhtBJXvOVA3WWg9YSUxDIZtKW8MGeOfCIXcS jk1ND MtRFEzMMMbrp3WGAWoUAF6YkG2KFChATDlSVYhQBymBETmUFzlZPxfEOGsYZUlUM6KOfUzINJlBTHlWH AgNjU 6LuYtUe4YNQFjPFD8NiWsSkTpQCHmSRTsJUhpUVIiHFzeOrv5PQVqEJBtIT0MMpVoFAAuDfE5LTAqUPK wMDAg ep6ZWUKgUGK1SMX9CnYpKVPmUPMlVAlvREYdAEu4DNvvIMCvXHZeGN0ZDbTlXKEnQmB9KmMmBLDjAFFc bg0KM RJaNTN7PmqcOMUhVXLoPGUlJIrbHXRuBMj3HpTkTCYmEAXqRL8TDiDnAKDyBuZ8XckrQCQpMIStjs7ER DAwMD O8XhOkLyFcJJNaRZKzXOwiPJFhPOb9KhJ6JBEsOLCzDF8UOeNxOJOpCggfMBRcSQOzFYYnnq7MVAJjJA E3OTM 9TUHpEOByWYRzDOkiMOFgHQc7ZyAkSUVaQIXcQD8EWgVeIFJhVDH0CLalTTXtKPNnyl2RPXNiXHX0TFF xMCAw KBLcNKLtJXbjYNQhRDklBHutAIHlFFQvVJ2BHnObHCQzJQBdIyHvPZCgOXZzvf6BLTJvFHK6FWVxGQPm MDAwM TFyQYggJDUtXHu2FXX1HUGgNKXhCR0HJkNwVPJpCEZ5RCzrSSBvGRZxzz0SBQWoPHN8JiakThFxJRNnF CBuDQ yaMKZaKNn6LDi4JFVhSFSuHS1BHkUfVIFkPBm9JOLfZSQwXPJeiv8SLRFgMEL2TFA0NsPwYTUxEACtLJ owMDA qJYceJFLtEVXfUCTxAJ3BZcUcREIeWGkvGCEvQEYpFYLsak4XXYYzBLE6WXGpWJTiEQEsMCXmRQfgHKW wMTk5 YWtkZRWpHSZpMY4BNnUnMWXiXPewORBpDBZjVMVomo2MSPHgSCZyAYVwISN0YXHfAHJkQSxzEOOwGIUg MDAwI TV0CZM8EABXJiQhAQNlUOF2VNAzKSOyHKUxtu2GQMRvLESyXPRbMZJ7IIVdSQPaUYziFGDyLLLnQZIaT DY1NT G7VMLHLxHrOIUoMFL2IbMaDHQzVCGnwd4TYAFsMIPePGu7CJZgDBThEHYdJXddBUDmPzNiKVQ0ELAwPJ AwIG4 OLeWiESIfIFBeSpXjVKWsHKFywn9CHMFrYDOrLcT1VHCiHVHzPUHwXOqqRGCzImRlEnY5DEXfDXQlLX7 NCjAw JHXaRLG0PbNlXETrGSTzon8DFKBvKEJrZkkpTYXlWLPwICRyADftDXJfEdXhIVIzCIQnCEXiDY7FQsEh MDAyM UT2SKqtQCPcCOGizi3JEUWwMNYlAxWlWqQlDDJvQQNwMQhgWWByRbUbCLBeHOSyVRLkMN3QDwTeCELlQ DMxMj QwAEXrHZLlbd8UBDRjHGKqJeR2EQRfDGYcRLSmAAdbJUQzUoYyYBLaTDAjLOFoEF5PUdHrSTGaDCQ6TF EgMDA jMXQqkw3ZUKMeAXCbIwP6YhDnYFTcHVTvLEgvWIYfTcPiMxS8YOXnZQOaGC4ADqApIMNiZRR9FagmVQI wMDAg oi4KTRDbXEArOrx4QOThJRTsBVWuWWiyUVNaNpKhEHYxDPJxJDHgRY4QNlXzACOaBPF2GMIpDZYpUEJx bg0KM EIiEXQsARVlQCB2GADxUZTcUZzuXTClNIQbMUEzXYM6OCW7FAAZLpVfQIEwFGWsDYLwVDKvYSMzqc1RY DAwMD TdIZD0KRZrRJGsYOMkFWwwVFNcFiL0ShQ3VQPqUOYrHZ8DOvGdUKItATIpEATmYBSvJDRdcu7MUQPaQN IwNDM 4HaLkUHEsSNOaVDnpRXPgIlU5YGE7EVNdBKZtOW6RAiWlIYKnCGTvHQUjNATeEFLscu7ZPNXvFDFyJYU wMyAw MEIiZKObCSytLKKtTbK5TKWfSXAuKARgWH4YClAnYEAsJGMzYbPlCFOiBYTnxb1VZHInAGUgIBWzDJYu MDAwM XDxERzvMSMyClM6KpC0JACzZJTyKS1XTdYxEHRiPKQtNZcgZWLxVVStne2OBHCiSNIeKFJ7ZJNzTZYuB CBuDQ gsCYNaKeI6RFAcJPTmGGViPU0QMgQqJFTiVIS2GRaaVXQdLZOffx4DVSZbBRVoATL6KaShNHCwPLYyKX owMDA iOnX6ReRlKAIxCXTmHA0NOrKfBWZnLWR7WDGlUZZnUMJcgd8AGLHnHUJwSYluLDThMURiUIHkSQfvMOO wMjA1 Qfe2IANlSDJjLA9WZiWyVBDsAXS4ReGoZWAcTRNitg7EZJCnFLEsLKFrNUA9ZUDjPWCmRUdgNXAdPOFz MDAwI BZ4DEE2VSYNTaUfWGFkKKA0SPrwFBZkNFKhmz9ZHXPjDGIzVbE7KFNkDXLeKNRjUTcxLRArImZ8DWacQ DAwMD NvIB8OMjSvPXEsNHDzZOukDZWtDEHwsr5TINKyWNDmWmO8OaWwVFZlUSBxWXcbYUMfOwN5FFNqXCRxVH AwIG4 ZPkCvZAHsNSL4XYRbBAYgJNDung6GMSPkBKEkPly0OOChWICkQRIjFVgdJDKtCvG5WPJ6PAQlAKGjVM6 NCjAw QZIhWVluYKEzKKZtIPXegc2MTEYaYIAwNhT9QqJzENKyQMKqMVufZMNbYmL3DVN4JXNrSZIsUN3JYyVt MDAyM NraSYSgCAKtDJZngk4OTYTxWMWxCgY1JYQsWJJwKHYvDRiwFWAeVjX9ReC5GLWrFXFcHB7IYcFfFERcX DczOD ZrPDQiPKXoth1VWHRnWBRbVvQhSmCjMLFcMFQwYDdlYFXmDhU0XUC7TBDmDRKsKA4QUvVeMIMqPUw9NL cgMDA iNLPvvu5RUGPjEQGlJjFkTfLgPQBjNSTlHIzzJMBoOxF3ErK1GCXbBVNlEU8SRgZsIUInFLp7AGLlLXN wMDAg wv8KOGVzBKTiCZXgEXZ1TRKmSYQzSUcdKJHsVBPgUPMcDID4QOY6VGFPFiUeEPKsABn0SzRoKQFwBTCc bg0KM EVkHCMnPaecVEVbKNPsYGDkPSteZFRfQhS7MZJ3AKCxQRTvRQ2XCsOfKGRhDIqqJbUfNDOhUCUoxj5OC DAwMD OqKUQnVACpWYGxZCRaKQlgOGUuKsS5Udr5YBAcQXLvOT7DQaBiSRKeWSk5XbMlBXWhPNCbbc0ZPARlOR IwODg 8ZZJcGNWoYUViEPboVIUkYfZ6KIkcLUEcDNRpDK4HNqYgWRBoRHs6VtiiKEWpWUHgkz8PHTVpFLXlOHe 2MyAw GIPwNHFjMEnxRDBoQkZ5ZUYeAHAzLTFmRD6EPgKcUAWiOUldXkZkOKKzFZWcyo7UFVCfZOIdEAWjFDFf MDAwM BYjSFnbIDLxNpH2WfMoWJVvDKLwVU0GSjPjFBWxAYxbDAvtRVClTQDdee7IVADgKTIsLEMiBEIxNFBkG CBuDQ yoNFWdPtS6Coj8VDZhERYiRO4MQvEgKEZnDJb8JkKmXZMqMCOxdu6CICDnSRCbZFA7ZIKbMMPbAVDpCX owMDA eBVJpABGsULP8HHS1MKQIUdAgEWNjKBXmLBEhVtE7UuEfWn6YELAxGVToYMT8KgNrABPvVVDsZZipCAN wMjA5 Tex2VREkUJXsXQ7YIgPyBYEyLMw2CkDyOAXuZEIdqt6ZSDYpQYMtLYm3UWUzATMfQHNeVIptOBCyKxW8 OTA3I ORxCSMaTE4RDoLtIOIzZWMrHpOvYKQwSKGubr8VPOXxZNYkODU7FCAeSKZxJPRpGRnjROIcTgGwTuCoZ DAwMD JqMH2VJwAfNVPbOQX5DsBmIIMxOQStcr1XSBGnTVAnSArjAHGnTUPqNIEsITyqJXSbPpArLwDeHVLhHL AwIG4 FAuNoKDOjFBX5OvqsNXZxQKWsgb5AQDEbRJOgGAhxNQGcEGOuWZRrARjsDXOzDiScMXB7BHIcXIGgQC3 NCjAw LPLgJBW6CNGvTBElSXCyfo2UHWMrCCUzRTVxSfBaGKGhHQYzSMvzVBJnZjPnDLi6XVKwXODyPH8CLyOe MDAyM ONwItNpDNFwINUfpe5DYVPbKWTqKUFkZKVbGNIwQVFhYTznWRDpZxZdJuHhJFDjCIStFT9LYkRlEHWqS DAwMD JrIzJ9FwDxUm7AGGZkBUSmLTHdUFM1YDRcELRaXEyrTPEcVxQsBJHaEBWwWEJtYP8NUhSdHSJoDYO3Un YgMDA rAZHuxx0QUCYoEFDvBLJqLkTzYGTrVUXiYCnhIQKfEgPjSlS8ANNfAWDwJO9OFpFySKIhKOH0PXYsOGW wMDAg kf7CEAFwRBEiEIl1QONmNFObXRPrBJziGAZrQgXoKBb8NOHjYYKoGK1GEmOdBAIiGJYqFmJjQZUsXWVn bg0KM WAlNJPkFrApRIMbTQDpRHPcHCwoYGCzBiUrDqQ5MOZdZANrDB8MRkTyFCGkQZEaVMRvKYXiRAXjxl5DD DAwMD DnGnBoFRYcLSUwZUAvQDgxTHJsHzXrGKj5IOSuAVEzSO1HBzYqAOMkUOV7MYpvVQXuUVFcmp7BBKEvJH IxMjY mSGOuIORyJYEoMJakCCAiBiVpAzs7QHDhFJYmGR7SIuDcLXAmUSF8JgjhFNXdMPQdmo7EZHSrSMUkFgp wMyAw TECsDPBuOSftFNXkQxNlQBCkAJXmMBZgSL6FRtPkBSJqZWG7FEKeLASuCZKrrz2LMLOlSVAfOLXyNTD7 NTUzN CUrSGpgODNhBSOlFKIaGQQ3HXC0YMNMGxHuUXMmELTkEABuBCEzSUBykh5QVIDnQJFkKjEoUMEsLNEuF CBuDQ uwJWHfNbPhCDS1HLCxYIUlWK1KFkGiUSBbMAFqIDZzDVUkDCXriv3TOOYwDLOmImXkGDNqHVUxLJRePL owMDA fBmSaRZq5QJIiPKKmJU4GNpLzODCfTKZ0QTttGAKoSRJqza7ETAMoKEZaOwxkOGSnPQSbBYZhUXyfAYC wMjEz JCJ4EDRuALDiGJ6FEjDtXVMjRHK8TPFxRLQgKWPdga5FAKSwDRZhIFLnGlJyTQRyVPHzJSgoKLRnObV5 MDUzI KVyXIUhLP2DTzYrSTLzCABvRIWmFRMnIFPqub4FANOfXYAuSPJ2EUMaUZHrYOMyUXuoLMHsVlI4TxW9R DAwMD DuCU0UYxKrCDScSLCsZNXnODOdUPGzym6IBAXtFHVcJQM1VhJeCUZaXERsHRmrSMAuPwL6KWV3DRJbJB AwIG4 TFvIpTQPcISL6NYQnGNQyVRUhii9CCCSmWYKhKLQkMjWuXDYnEVHlKVbqCHTuEHFkHKCzHNR1DFM0OUU NCjAw VECnJRRsBACsPqX6XjBaIn2QAFRcJEDcBTY5OXZcZOAxIREkVPcgVOOtOuJ8MbG2KPAwTTEpLF6SPbBh MDAyM KR4AMApVPEqIKGxzl1UGHHhNHOeDHs7HXZjULVyUOEbZEtuLRBgBbQ9OFH0KDYaTHVjIO7PSaPiLKFqL TUxMj MiRPGmRVUvxf8WAIKjQPQnHER6PZMyVUSrDYQjMXccBAKaPkC8ZSAgEWJiXUBuUJ9XLgIlXGRcESC2PJ EgMDA wQWBnbq2GOQFjCZTdVSOnRAKhQNSzPXTeNZhwESAxXlT7QoZzORWsISFvHB4JDxJxJWBnIKK6GMyzYBI wMDAg ce1GTRAlIVDcPKx6JTAoNPNcWXVxYRwoQGKgJaC3XYY5JJOpFNGnND0QHmDoBIIbHSC5ROQeSTNmEKDt bg0KM JWmGMOjTJo9MsFhAGSyRGRaDZslBAUgTwX1GKj4KJNhJXSjNO4VSzKcDAGrOCXyWrPjWZVaYVSmvo3BW DAwMD OtTfZmJNIpGAJeQCXiOUboQGSvMzQ5OMckWFMmDHFwSY5PTvVaZJQtEWKuQJCrGrK6AqAbBc9GTJNtPR AwMDA gXLC7PZUpDTHfJAcsSVEaPuW2IzU6KSJfEWPfMT4ZHoArPLFaCAWnDYOsAUKuDYXvwi4VEZLkIQSgMgK xOCAw XRHiDUJdXUgvTIWeCqI6QDE0QXAgYBLmCS4ZLvAmBMVkATJ1YIAoCUWeAJNvmi8JFECyUIYpSje2GDZj MDAwM PIiUBdoBKXoSkX6XYg7RSRuZJMxAA3WZcMaDWZqNWlpUsabZDKiMVWvtl7CMGBzNZXjEsEnWvDqEBBxO CBuDQ byLLUrNaZ3CcSnWWMzWQCcFW5CBiAvFATyVLakXEOfKZJbYMCkmu9QIJCtLBEzYuZoImGtUMLdKHUiSY owMDA aGqB5MxbdQURrXGYiTG7RPhBjCONeYZi1YSUiDHLuMWSuye9YZCQsREByHqQhRiApMXZrDMZxVLksFUF wMjE3 HWvkGBOhLYLgVB5ERwQvSEIkOGh1VeYqXRXhRNEexe5EQTYtXRNoUefrDSRjGIDoOUArQGedHYGzKeC0 NzU2I KDqRDPxRS2XEbCoNPUeSYl5JNaoCCPqRZDjyt6QPKHoXOZxQKEbVVW0FXFoJBDoEGbqYCInMXIcPTGnS DY1NT P9CIZHBlDyLGDqIPs3PxFuWPRiCBAohy6QZWTwBULoIOYsOxPqLWHcLRIzHWfiEQHxRyU9ZNPtVDXzQI AwIG4 PTmSlCTTzTPvjVDceEVAcQTKjpc2NBYYpUGLeTKIkVXLqGJTwZHMlOMobIZIqVeP2Hhr9ZJLsYWUnIA4 NCjAw ZWDkGOm2LjIcBKMoDOFnwr3BSCKmLEVhDJgjCNWkOABxDAZtVOxiHIMtKyE1XMF2RRAsEKGuAK0AXcAi MDAyM Pl2SQDfMGFkWMJsuf1RVLIlFTIuNBtfXEQzIIQkOJFjQLzaSGCwCzP7ALE2PUVmCLFdQL1RWjUsFLJvG TkwMT KqHWCkWBSjwx6UQGJpVTHeIEZ6DyVrAQPrVUVkYNwaYHEeNaL7SJY9ICRkXTCxGX2DGxRpDIEbNWiyVX QgMDA tIELlrz1PZFSkLXPoBUR4WCJlQROeSMVjZQcpDNJdPqI4JnUhBNPnRLHcJT2ZUjJrMJPnAUehWEmtQIQ wMDAg dq3AATQgSBXiDCAmKPBfPAOmUTAkOQo8omXyvWQmPuv5G8Npr6RwXSY8MIPjWNLrBW6mfiFyLqAtPEAt Ui9JR Kr5HuFdYLa0YnFCWAMAUFF0JJh3E0LQIxSdZhN3EQKcDGI+DRJVDBO5Qjj3GML3KZLtVPY2SCeVNlI0F EExQU RoOXP6Im2zS1g0IZToDBDoNd4Np0HbmcY0bcEbIgCiHRL1PddaSEFQYfs= EMS DOCUMENTATION Observed: 10/21/2023 9:08 AM Status: F Source: [facility] Please click on link to see report phfWbjb08FBNQUa8sPeIZLqNtu1SAPtJbTFDjXltFTGxtR118aqWnZA8TvYXqF300aMcziaJkJh2SYW1 kb2Jq XiZiOATjFvvRWUmyP5ikm2FFIOSsHvVwWWXcRnW8GIViHe4EBHCmdkHPqsTaPDUySBWTE2UoxbDoqCSt ZWVOZ Or0F4S5XMAiVb7oMC3dmIU3QLMsUj9GgJUhJ0V3igWybYHiFSNYs198Rz9PXP5ya8OaSwGjQFByJypXF DwvU3 UdhyMdmWm6J82cV3AjY8RzdHWtMU4+Kf3DVX4ft2OfRpQzQCGyFnlASLedAsTiChMoPUVcMXTuAJSuKz 9TL0R rO4TqYU04Zm3YMF8px8XxXzOtSOIxGcfMWGtvEgSwp4ynRXdrCWLPDZ5+StOdHN2oize8MNYxf8MeFhy 8L0Fy fKfgfGVoLMI4W8ETU6mUE7TUKk8LM8FZS3ozJVZpZNpiPFTlYxkesTKaP6oaLc1OeEk4nxXrZMMJBC8L L09ML 3fqL9LqeVkghp3DFFM0Y9GXR6p+EgiucyZfLmzXTdMfBC7kirilLIEvHMZwVQXqJCPkBZDdPFHBBIFnA DAgUi CaTyYgHBBlUUGzUNTGTFI2VNCdCgNzyOqfOGV0DGOnLuLwPcZuVKOvstIteHOwQhWgJUDqLOlxLEPBID 51bGw yKKxpNYQLOHOuJQSjMhGaoKnlFXXtVDEdJwSdKgDjTJZkhzTlwE6TAW3eu4EsLnyvLMNuJpuVXAzqWnV wL1Ag BpNmMPMNA2ByKHU2YZLwJs1QV0wXMz1XIL3vc0OaZohwNIVcFjiJBQoxZlWeR7QiFnQbHXQTH4AhSTT9 IDAgU j2GB9aCVm3OKI3tg9KaEvBsEAJkz6BfWrx9X0ivCn3BAURrTBHjDn7KTmXuNdWyDCEfLg9EMj0+CmVuZ G9iag keDXIxZZ3ojvy8FU5XJQEpUELjCkWaVCRoINpxLaZcTUVZO2UxIDI+PgplbmRvYmoKMTIgMCBvYmoKPD wvSyA 9I7VjFiQqKYDLQ7YzYQV5WHWrDs8NF5bEVh8JKV1ia3LoOwIuNAJcx5HeNsk4Z6ryGW0RINCcVFHtYc6 QZyAz TaUeVEUpVp9MTb2HUS0xh3DhXtW0JQImv1ZyEjb2W8soDw0LLVBfGAIiAx4BHlDkDuJwIUNfEs7HoJz+ Pgplb wLpJqhPMHKbBOMsQugOYDxqWlG2Q2LaLxOjRMWRD6ZeAVM0RHYzHm3FV9H+PgplbmRvYmoKMTYgMCBvY moKPD qrAeM8H2XaTaMkQYAIN3VhMIO7VPMhXp3XJ8ajTt4+XtBmFR2iiztjHnAgXF9xvks9FT6MQLZyW9PrQd MgMCB ZN1WkSMK6RCEpGy7JG4I+MjvkvgUqAjqYIXrsALPiAbuYSJmuNfVtPs9ARYCwZCGwLy2EWqKqChJnONH vUy9J bWc+CxolulDpYvnVCMrrJVWgKecTUDkaExFeXX1KHOPsAFPvBt8HSqVbLvCnABLyTj1PXv8HSH0yk6Hb CjIwI SOox2TjLya5N1svXTJlYHYyRyVsYSOvHAmjUkPrTJCAJ7DaLI4pYw1QFO2eb4EaEgXkMAIzm8EjWmi2L 0sgMT sfQHZdQkIgYLWoKLywLcVpFDQVZ8DrIK3+ImEgCW8szvqmHkYeJY0yswf2OH0NYIQ2M2KgOnGcHSMHU0 BnIDM 3CAGlQo5BI8cwOe9+OlKxBR5speixCvNdIF5xnqr9DN8KN8NaFTTNqgYfS1i8UZSwVrZ2JOSbRaIeJQP wIFIg JHEyWQXOVKBhIBVaMsKwGhBzWNOgXMUhZSKIENK3QKHtAuLbCyQaRLKuQMclOLSJFOW5TGWjWzLnUYNo IFIgM lZzKYTOZSXvTXLdRzIwFiTgCJOlT7ZmWLCzBDOcAg5YmsUdD0sgDt7HHL4ue8VcSjN5EPCxi4LvSvz1V 0NvdW 93XFHgB0hcm4ylBlKzYXWpA2R4iNCvTZFkSZV+PgplbmRvYmoKMjUgMCBvYmoKPDwvTmFtZXNbNTEgMC BSIDI 6IOSiKi6+JmyxdcHnXpdKYaHnDSJiJmzUXCefAsIrPZQsSustCZZXPJM7KZQiQg2+PgplbmRvYmoKMjc gMCBv CqkMWVLdtSA1Jj3yRohuL36sDNI0o8xozqIeJhRqX4A6a5ixfu90sSLUPZEnGV4PNoYYAzAdgoStV1VD aWxlU 9WzhglwiI9wY4XbjKYtR6UQZpQAKOXtKRC5RTYzOdX6Wn9jgU8mFNcnyrAuGtbVLecvPZTiEdxDUNesM 1QodG I1dU3umL0nXU0MBHW6OZHfALPmA3ybBqBzDRXkU6DiM4PVJ4TDFRH9FFQzFx8CLS8/EDAMXLWCLF9PMe hEOjI gUeWbVuGzZVV7LoS8Dct+TpvbrvVpAwdMNsozKPMpCcqVRHniCVLaAjqgNKYGV3BOBMY6GaVyLZC5PqE xNDQ2 MDVaKT4+XwPbKD3nhuuuIOTaAG9skay1XN8UVU9amQekWqQlHU5OoON5uNGzE4uKGP5TqHXqV84srCYa YXRhP f1wjNHeXT7TZL97hGMyv1G3OUEoX8kvSHFnk23pEYgjKBXCJO2zTUROVFelJFxyOPJ7FrXuzycmMECwD z4KPH v1iP9zjDC2VQU5nRyjkwp7EBMdSR0aTYvmxuepPLNjNfUjxXq2oAC6bn0yYHQuKbPgPJ2SQYAumlXyFU 4yLjE iZmA7AoP5Fi0tBLs3QDByUERxYGbbUCmpLFZtRTK1EOY8QBsaXGNfDKNiAJZ+LyZwMWygFOZ4HdCGIWo tbG5z AfZnTp9itUY1gOrhB6p2qx80Bk8kudnqGLt9RB3mZs8tSp0xRTHrj7umqWQ4CX9bExN+CiAgICAgIDxy ZGY6R ROgB6SqoUUfy81fipFjJrLqs9T0QUGyQfNmNBGlOSWfORFlLBuqtO3yJmczuL8wvBX5qLqfV86eGeLks 2JlLm UfrQ95UQZyGN0hRxO+KyBaPCTkJMIdGBf2oWV9IJ6qjTT6QRM5XQ0wLWD2DAM7VASyYCStVdS7ErD1IJ A0OjA wWA67dRV7NM0imMX7FUA1VD7MEBPqQPBwILCiNXptgAcDjtTlgIJWDTUmZaYtEhPfBFWvGfPTBPJ2JKN 6MDUt HOA2ZVF5E5ylfTxMovTzhNTNAAWeAmlcTUHxUDOhQOD6pS5nWv8hcTFtOVThVUU2OS1tHVF3IRP2IUOi VDEwO bV3UoQ1HCV6TaIyNV10pZF2LRH0QWRksEDCNYUtXozpMVFoBIB6W8JrQzeDTZCpvnujhGovko4ILEKvC CAgPH ChAbsORQQayzbpwZvzgaZqUPN2MWHxcWS5FvNXQKVrSVYmNELbYNNfzK1rboP7cM4bRT96Hoi7uWA1Vh 9ucy5 gOG3dFJ5ru65alGVdGsHoNY5hgG1dKaizQNSzMRLaXMC9kQ7iUK05YO6gzZ8dgvQHWQ43eTueOjO3ZED 3MDU3 XWE8FNWfIDnmLS7iQEUrFKL2LPViWPbtTILiRlfbbC9gZZ73UV4fgB8jjoMMGU8BSOCzPKLjOBMoMAsz cE1NO gyzu9EsfdJlSEJ+bTXkOKdyWJWyEBPrUD67PjJ0OIXsTgQkSDuhXq1hXGL7DEUqVkLkLvS8U5hamS0YG kluc3 RhbmNlSUQ+VnBgDBKbOJdcmnNvNhVbf8VupQM2eJ6cDwskNDEhHTS9ijHyDyAdx9ZutBE6iD5fZFBkCb phYm9 9cT1xVxwzMYCcDPHrCEHpUIR4bQexvpfuBf9jxPC6vSruZ3A5mkyey8RlR4LvB0DwAY2feuAgRyFsKL2 iPgog AFIaMJJjKJK0GGT0Sf4rmKQ5HiQhzDgnI0E1hM6mB3UePmxlLTJ4Zk9ieVA5NnyiFHVvIJQbWNL8YTQ6 dGl0b +ZoFlVBMlKXLsNYFwXCfrMQJ6NCx6ZxinHJCiPEBoBXAkGTDnQLA0ldLsCkjvUMlabZpgBT7aDDM9V WRlZm K8bBZeXnTRTwaqecHpGfvfJjkgAXWtSEPaTMMgAXU5R8TcOmuSsQQ+YkFcRMZtPETjGSojMQV6pSo0eG U+Clair sFZKqRPinevWvZhQif8EstZY5mG7cFvubRTIhCXY2nnGaFmUum8NtyDP9sK7aPBKrKmfaXt53dI0mLuq gICAg EAMzLIRqMYR9uLpeifvxNBD5Ozc6tTN6Yh0wbg1gCH7gBY0yl55xaMNhHfMaWq3zSuawLNGeWWFkJBP0 cGRmO xGqf5T3Y4NjUcJiii0oUFAjD7OhPGFsnKU4qtXlHP4nWZ8lYXL1GBKcCXHxEFC+CiAgICAgIDwvcmRmO kRlc2 KjxQJ1tY7sIehfODT9E2RyRfdIOKC+SuqkiPo2fITpTSNtLymqVDQtYEErBCYuFJTrAJSjTPPmDDSiGR AgICA gICAgICAgICAgICAgICAgICAgICAgICAgICAgICAgICAgICAgICAgICAgICAgICAgICAgICAgICAgICA gICAg ICAgICAgICAgCiAgICAgICAgICAgICAgICAgICAgICAgICAgICAgICAgICAgICAgICAgICAgICAgICAg ICAgI CAgICAgICAgICAgICAgICAgICAgICAgICAgICAgICAgICAgICAgICAgICAgICAKICAgICAgICAgICAgI CAgIC AgICAgICAgICAgICAgICAgICAgICAgICAgICAgICAgICAgICAgICAgICAgICAgICAgICAgICAgICAgIC AgICA gICAgICAgICAgICAgICAgICAgIAogICAgICAgICAgICAgICAgICAgICAgICAgICAgICAgICAgICAgICA gICAg ICAgICAgICAgICAgICAgICAgICAgICAgICAgICAgICAgICAgICAgICAgICAgICAgICAgICAgICAgCiAg ICAgI CAgICAgICAgICAgICAgICAgICAgICAgICAgICAgICAgICAgICAgICAgICAgICAgICAgICAgICAgICAgI CAgIC AgICAgICAgICAgICAgICAgICAgICAgICAgICAgICAKICAgICAgICAgICAgICAgICAgICAgICAgICAgIC AgICA gICAgICAgICAgICAgICAgICAgICAgICAgICAgICAgICAgICAgICAgICAgICAgICAgICAgICAgICAgICA gICAg ICAgIAogICAgICAgICAgICAgICAgICAgICAgICAgICAgICAgICAgICAgICAgICAgICAgICAgICAgICAg ICAgI CAgICAgICAgICAgICAgICAgICAgICAgICAgICAgICAgICAgICAgICAgCiAgICAgICAgICAgICAgICAgI CAgIC AgICAgICAgICAgICAgICAgICAgICAgICAgICAgICAgICAgICAgICAgICAgICAgICAgICAgICAgICAgIC AgICA gICAgICAgICAgICAgICAKICAgICAgICAgICAgICAgICAgICAgICAgICAgICAgICAgICAgICAgICAgICA gICAg ICAgICAgICAgICAgICAgICAgICAgICAgICAgICAgICAgICAgICAgICAgICAgICAgICAgIAogICAgICAg ICAgI CAgICAgICAgICAgICAgICAgICAgICAgICAgICAgICAgICAgICAgICAgICAgICAgICAgICAgICAgICAgI CAgIC AgICAgICAgICAgICAgICAgICAgICAgICAgCiAgICAgICAgICAgICAgICAgICAgICAgICAgICAgICAgIC AgICA gICAgICAgICAgICAgICAgICAgICAgICAgICAgICAgICAgICAgICAgICAgICAgICAgICAgICAgICAgICA gICAK ICAgICAgICAgICAgICAgICAgICAgICAgICAgICAgICAgICAgICAgICAgICAgICAgICAgICAgICAgICAg ICAgI CAgICAgICAgICAgICAgICAgICAgICAgICAgICAgICAgICAgIAogICAgICAgICAgICAgICAgICAgICAgI CAgIC AgICAgICAgICAgICAgICAgICAgICAgICAgICAgICAgICAgICAgICAgICAgICAgICAgICAgICAgICAgIC AgICA gICAgICAgICAgCiAgICAgICAgICAgICAgICAgICAgICAgICAgICAgICAgICAgICAgICAgICAgICAgICA gICAg ICAgICAgICAgICAgICAgICAgICAgICAgICAgICAgICAgICAgICAgICAgICAgICAKICAgICAgICAgICAg ICAgI CAgICAgICAgICAgICAgICAgICAgICAgICAgICAgICAgICAgICAgICAgICAgICAgICAgICAgICAgICAgI CAgIC AgICAgICAgICAgICAgICAgICAgIAogICAgICAgICAgICAgICAgICAgICAgICAgICAgICAgICAgICAgIC AgICA gICAgICAgICAgICAgICAgICAgICAgICAgICAgICAgICAgICAgICAgICAgICAgICAgICAgICAgICAgCiA gICAg ICAgICAgICAgICAgICAgICAgICAgICAgICAgICAgICAgICAgICAgICAgICAgICAgICAgICAgICAgICAg ICAgI CAgICAgICAgICAgICAgICAgICAgICAgICAgICAgICAKICAgICAgICAgICAgICAgICAgICAgICAgICAgI CAgIC AgICAgICAgICAgICAgICAgICAgICAgICAgICAgICAgICAgICAgICAgICAgICAgICAgICAgICAgICAgIC AgICA gICAgIAogICAgICAgICAgICAgICAgICAgICAgICAgICAgICAgICAgICAgICAgICAgICAgICAgICAgICA gICAg ICAgICAgICAgICAgICAgICAgICAgICAgICAgICAgICAgICAgICAgICAgCiAgICAgICAgICAgICAgICAg ICAgI CAgICAgICAgICAgICAgICAgICAgICAgICAgICAgICAgICAgICAgICAgICAgICAgICAgICAgICAgICAgI CAgIC AgICAgICAgICAgICAgICAKICAgICAgICAgICAgICAgICAgICAgICAgICAgCjw/cAWpW5grwGSnfeB8Cp ciPz4 TZU5jx3DnXOVpZuNbWJ0qfiskTNPrZZ1ohlj3LD5TJJAbHvS+YzpwdyJrDgxZKjPrQKTuCkvURQzeR6C lYXRp n21OCQSkLHT3GlPaAQB1QdImTUD0JZDgGCCdWAJcEW0Zf9QYAYJhILX3YwMsTPO3WbTwYRG4LCMxJLKl MDAnK D8Nvm5fwDGybvzFB9IvObQ9WRfcKxHCLJU7tUNcCYuaOMapCVw6oMCkZHDMFW2+TmHcLH9rnjrkUSPnG G9iag s5RX2EKKYyEJ7ptqj7R49onthyOFQ0oaUgHf7zPKH2HESygLVbUiNqDHVYY29ebLTdLSY9TJPzQs9JyU RsaW5 ogoFjQMVsDj9EZNxpogZsKFEhECSmU9YeCXMoUR5gffTnPHKlZOOwT3EnqGS0TNFsORVlz2SqAkPdJMH vVHlw JV6RRKChsJ6zT5KKAZk4X8Eci5FjvTT9qKQ9Dp78y5sxFoPrm2LjUQS0xy2fp43qsAMxYR4+X8JeRHqg clByZ ATlksAjO3IpBXB8HVVgFo3XXG3lDNSaN7fxv7lfTp2YQB2nw9CuHfL9LYBop2KnPdn0G4pVUhUdKMGsP FIvVV JMUyAyNiAwIFI+NgvvbvMwIcwUAjYaHGVlUerPIGqgJ60hyQKwmKKvQdhzRMHYS4Gdb8PIh1kuHA5pHG AuMCA 3GMXxSWZ7WUZbXX8xI9JuqGVmOKJbQYZUD9jQMNYjTXMuFd9FUQFbPIBkiAhiGhVwKC4wCUIrTj7bKXi 5Mi4w GQ9YCjKaFpHuCNB3X7EoxtNydTHkGVIoCBQoIcTno7CvF7WaIWsxZ30dm7DZcVMuYYd4X4FNDUKjOcIb IFIvQ 8OmGKV6HZPxHj1+N1Q8yCuFyHB1IIe9T4vVHPP5FcMuGUG+Xb8Jy723OZsjFYRqCFIvIODmEk4+L1Byb 2NTZX UwU5DYYw5WOBk8E6xlFEkkH86bVO9mpcBjeWm6J7ftXIH4DIArGBChZF1nQPS6CTZbEa9GkWNuGXvcJA BSL0l zBxR6ANAgRYYvPU13IEX2VDEpGp3+Nw8vYh10LTGbBUQmR5TubYU6PPNaYV63ncKxV5W3xUKwYQXhIK2 UYWJz L1M+JtbpjfFgZhxKWgfnSYLxLdwMVj7GG0JLYQQrVFC5FVLpLSKwBzAeGS5pmkwcVDKyVM5cjjceB8tD Q0Jhc 5HeNPGyNFFtHu8ORP1fe4UnNfR0NROfl0NpCzl2S7dcuwz0bFHjTbP6Yy7ifHKeJX3HE4ERWIDpwePaR CBzY2 5GGKNgJyX1RspbCzR3WXGoBhDaRWB3Cr96DZifzoSTNrxeKFGnMLikEEPMBGZnAI9+QkRDIAowLjYwNC Agc2N zKcJwCDGaLNEtVQLlCT35MFf9WYX3JM6dZOg4IZMpDoZpWAFmAkMnRtYwER3oQnqcOvHvEqR9MB4rQI3 wLjcz ZpWnKdE8CL3hPeQrUETsCnaKVfaKZHlvBbygOkKtb2XdGqBfEHYtVTDaKJQrMy08GJOdYHK2Qz7sWRIc IGNtC nOjSPRlDy4wMrtyKuLlGS13NsEmkQz9MknfMsVwOF29JbLroSv2VdrhCAL4ZUBuqEzpYqIfHwQSEE08B DQgIH XoptwcFSGjYSHcOTRqSGRvNMR5LTX7VUUsEAG9WhRlzWgzKYYtbYfsIQ9jDiG8TUUiXjRxGsZoQX3yJj czMiB gYjdEIizVSMwbGcraBnKge6ReYeHtUAXrEINuTPP5IDToSLW5WFB2BBNxFec2AaIubZrwEQHkbMkwZU4 wLjcz RlSoAfXdKwAnOL3oQzsdFqOxOqKyTvDmXANlAuNoSOeXzXhfFtlTIhEVAmJHV4jDEMr2Y93LSEDtFEA+ PkJEQ cJETG30GSDtQYPzucxuPEQmYNCcZBNuDEYaMIA1HSI2DkznVdZ1UDHzpXtlOJGrbVpgGnguWyDaHV17I zIgbA i3XkgyFxStTX27SkUurHt2AIZqUFAtRDBzyBcfIqRlRxMUGB12MxTlDARqlbvrSGFjIPFmHDPbMPBaQL kxMyA 8RymhMGY0SVIfkNvmGPOqfXksQZ64LqIvMZPgXmBnUYvUCIi6KcIiMURuAzRhCMtTBNl1IhV6OsVnGZz KaApm QsuKEtIcXcA7BSXiR00HiWOxOBTcRJJcZLN2Lkh7WIosFJU0Bkr9WLvdE51EHEGfGU7XFOQtPA52PuUi bAowL yrzZyIhYQ57LsBfsAefHjGkMyDRMA09BjNxJBOxuoxqFPUuVZLkTSZbQHw7ZvN3APjmCHT2ZiEfIhJrD 20KMC LrQV3XFYCfIP10RjJsbMihEgylUdQcCU56FtYllOzlHuwkOjTsAispMjSePfqPJayQJIsYASDvDe6JBi A8PC9 UH5cULHEfTh4AZWMvPxKwNcV6DYEwT67HjPXcINHmVHBtISF9Lwq6JOczFTL5LsNwOUNgG58WXKJtVC7 KMC43 VqEmUGWfFgGkKNgGBPv4XoVkSAHpToYoVJqTSUguWmSmCxRfWXfEpYqfRtsRZeDiAKWePGOpP42GdUQd IDAgM XCqRXZ9YkC7YGFxHXD2Mka1AdqxE66FCTXsRJ1HHSFcXxEmOZ6gHnnrKxKmTvR3AI8lCI0fTbnvLcEpS jU3OC 57CswtIUQyUlyIQuiOWXkrCuGcUKXkw5MnEtNaLSYtDFEcLCMkTP02LMx2ZGDnJX68AnIyPRUvNjDgNA BtCjA xUDIbQPJ1LNjZOT34MgYzPJGyQgIrCBlTbHfmItaGSmPqEHQaVPZjY34JvXXgMGXsJOHlXPF4YD8cPTw 4IDQy FE50GGt6TPHqFdVzKOPeRfGmTFAuNsKqAOoRHZ34ZdRtCYCtXqFcEGfPTO23BtDcED70SnUoyKnpOqQz ClEKR X0SBSvqXQXdKBomUVXPREFtRY4+KgANQJxeBdCnXTFqn0LbRoTdIOHyILLaJKCtEW23VZh5MFRmWN1iZ zE0IG EsVwYqHXQuIbEtIiAdHB4rHfgzPjDiFtQ9ZT7wUD6vPsncGkBvXbW1TT3rTeQaMPYuRvjGInqALNotAx kzMyA xy0CqFbKwKHZzRJVwQVLbOa87RQRePRKqLW65HhqxH12LYXOwXR6DSUXbZlEsSW2eEmdcRyRpNrQ2BD3 zIC0w AaxcUyUaGrC3JG13JohvRSPlBygAQhjLBSnbXbNnJECzx4WmWsErHDEnHRRtMTEuAR62PMz4KRLrRU0u NzE0I CJfUfDvBVLwNoFaZLGeXNM0ERgULW84FiOtASRaQtSoYVtKaCenHjaPEoVxLEUqRPWvT55TqNQrJODjT CAxID N9ED0sFBb5BMSuJA80NjtxO46ZYTAiEB5RGDJeLO30QvPacHexWmzoGfZyHJ93FsDzpOgwIeorOcVlLd czMiB qHyfJTyaRFSaDMAEjIp0NLsF0SP6KR1kUGYHuNu2VWTHqUvMiQuT5LCEgM10OjHTsBEOoDRThQFD3Qjx 1ODkg LNg2SwCjRoIcX14XCSHdPO4WHB55BnBuMRWuFsFdFQuCWDo7ThXrPNVuDxIeLVdSZMjxCyVmMvFqYSuE aApmK gzAJwCvCNRfYQLcG25AnSVcJFAvAJNiFBJ1LtD6OMQlZWf7HpP4CTDlS44YGNNoHM1VMKNvInSmGD6yY jczMi TiGfT3HZ4cGC8qLtjaIaEoRuP4WG28OkylJYXsShcVEoaXKEinRbFsTMXfh3VnDdBwHVNcZIRwNWZpSA 44NTg 5LCL2Qn9bTuN3NTEiQkMwUOGtDeStQDOvQAS5VNeZJN12XtFeYJIfHlZnHEgArLmzSyvMLzCsFDOoQWQ zY24K mOAqAXPpKALvWHY2XV9hOGc3FGC2Fp5iEPQzHEZuBgImXBBsLrFhAGVfDvMbTPuXWP57LkXjEMFhNbFh IGwKM B93LzLcHZ31HlAkxDliSrTwKaVENW9XIMtPPJcbETF6US8JH2hMQYGjPc3FFKQnMiAfHZMzywmmYAVlK DEgVG YYTZYoFvC5LBVwXSZcETXeNxL1XZRlBJ01ZAc6GEq0TP53VWk3DYAeYdgyYwrcAEzkJkgaOiStNJdyLX IxKCB LarIvzA0UnEQykL7lFPDoVBAlB0CeWw1iFxLhTcubLQxCKA3NDOeVPSktJY3iGMw0A91NCIAjMlM+PkJ EQyAK pJooN6DpPBzkSsP1YF73CGVoNWsoCRJcJH38Kn81FIO3HqldSZKrQPZ5VSX4NmI6WFtgBeTtEwUtKUBp bQovS K4dDLRqIeYQYE1AUNeBARmaJUH8HD8AZ1eUJDvsOe0YKUMtGu4KGYOqNRFHCmzdZB88HZn3XRLkLMXbB S43MT j9ZAB0Enj3PQskDfW1DrI8BCewYY4SZahGvBndKG76FQXVQU8uDmseRtLvCLI8IA37P8F2mdlmAzXiEW AwOV9 QzN5fPqQcwZ2uND4LQzsKPPSbLjQMJr6KmVvcKVdvMSUERCK6AB6+KjSWTOujXe4VXgIlQ1HXDUf1Cik 5MTA5 OYSnSWIsVAk2Yph4ZwM4SkJkOT36FNs4CKneSAQeHk75VCE2GRs5UBIgIk5BnRVmJH6TIAhJJDFtVbQV Ci9QI Sc4M44EVJNfXNCpAc2CYZPqUg0OPCOqUMJGVohaPU57ZGk9IPKcFVTdZD24NNo0AIG7Jff9DKgnNRRuJ jE5Mj JuKR2PGatPaPxtHB62LYZORR7eEfcpZkGnHMX7QY42W4F2cdhcUmPsPRY4G88JeS6lRvCesL0sIS4BAj pFTUM vUpWSLz5WlFkiDSaqKTESSVQvQqH+EmILWmNUeFwtT3QmUZxzJrK1EL03BFNcUCanNCHvGP78Zb00YBS 2Njcg IJWxIFZ5TDT3VlP7XFxwGtBzUiizSCZieGbsQW5bAGZdTxXAPD3RCQrRFCuoJZP9RU1PG2zHRNN6EU2+ QkRDI WtrZLUzPBNdUECMIRCmYxR9TBWcRBHcZKZuXaY6NYPaMH34KMb6HYRdMo63HPY2LRJoSaafVgpeYDnqZ iggTm XrGAdeAGGwUBKImzXxpW9UsTYzkS2cRCPoRcIzY4VlXi31GfFlPkshFTqFPI3XWNlJLLdcUY5qSXr2M3 1DSUQ oRLGiWi3SDKLnGdVNT3aHNMPyhpr3JHNbCOaoKSx7XXMbGMJjZTomHRslApZ7HAV5Qxy6GNjdUwPuGAZ 1LjAx DtssAaDxkReyFI9bLKLfZrXBNV4WTQiLIUxhDGT6DK1OK0bSPBV0RU1+QkRDIAovVFQwIDEgVGYKMTEu NzE3O WQbUYAgVWNpRgE1ANXkZG17LQg9LGR5Gn39CRA9TWCqIfssMoerHUvfNtopGlBvIXjdKHLdQXESbgFvk F9TdH YcgP1qFYB3BWUwI0XsRv70YsFiWrgmJElTEI8WFWwTWOkjST7wNZz1A04NFVAnSVgtMn6KSMEvWgKIO1 dTMCB hgod9ANVyEZuhSVy7QZPgZSGtZKdvBZxlUwA7PCL4Hwj7KWhrIiQyAnhhPhl4DPB7JaUdaTclCR21GCT vClEK VK8NXHlSJC5sr1WpQTEzNiMlAH3axir3SRLwXG0pgto6QB5MRRAfVh8jqD1RxY0ox66lo7HgxYOxZATH VC9Fb zZiEBhaKi5IrT2IgoYfJB3lh8DjriilAbotj6IMsDNyWTDbKa4zlABrs6HxyJM8y1JoAUHlNWIQQ8fuh 3RDaG DpEWS4AL3YgFM8kNBqL2SeiAGKiBYyH6X0eUNnJh1fcJ1WkOX3vKGzArb1MTz9ZLC5GiigSih6XHi9UU A3Nzg cBja0URu2TBV2IqviIjh3ZCj6AOZ3AsmfMyo1IQa2OFO6EvvrTep5RCx0NOL8JlsqDmp9HOy8WSK9Fmx gNzc4 KTo2NDB1DmfiWnu1OJv2ZCX2LyvhJat8UYs1FPL0SxymRmg2ISj0QTBtJYZsLaTpNNPzNAE8JYUlNFDg IDgzM dJ8MorsJPxgHPXdGzXbKrDoGIXbYXE3QWErJPQkGhMuIFI2GDYlLuyqHRDpMPFdHJL2SWKrDCWvFPIjV CA1MD YwDEAzLIDgPEG3OBBaKEMpYGI0JJMzZiopFYW3IVL1GCR4AgXkEYA1SOvvIFR2ByEqFrI3NMP0PyP1Nk IgNjE bUMS5WiV5KzCuBtZsRJFsRhDqXNyzAlKhFPSjTMB8XHugPrUtCKwwFzT0JTFxWaVpLLZ6VsM6JVYxIcK xIDcy AgL7QaIpVQZ1SWvvCfO7RyHeUeAvNOTxDgUbYyoxXqFuORG4VFI4LNSyAcVxJRX6HZG1IYAdYQK6VAYc MCA0N MEuWvBjRNBdSZS6THMlVwf1DZO1NJW7KPNyWyu7RJh4DRC4EKApMELqKQGsXBC0HQGwGuZvKEY7HPYkE zggNT XoHGCsPSH3AhNwDKJlKAJvFXJ0CJUxBTgtTJQmFHP4GGSrBEJeMAU0SMN3OJWbVpXjOECbMmI9DGFsCW Q0IDE kCOHjMKWvXKXyCGCiLoFwXXGfRAR1UWHmHmCfKRv4AHXuGWIlIpDtHJG2DFOhUYScPcPkDALfNoV1SIV gNDQ0 OSZ3KFB8PMUaEYBvAVFzCdRlFXkiFCP0BJEoGbCeNjRkIER1QYM0AMNiGkPfFBX6CNKsQvXuFTAaVRWc MCA1M MLzGRVvFHMbYRB2KQIuIiNsNOx7HSBxMlOuTGCuZUN7SIQrMtPyKeShYFWfWUL7JFUrGEA8BEZoZNGgB DAgMz DdPRR6IoU1FXSvFtKhFTEqKgCrSWGuRiMaUNBfSOC3MEDtLlKsVZf1IBF9TLPuVwPmXHvnTyL3IqSzTi IyIDc vMvO5TkWyUEr5AWE2HvL7WFMlToLlYTDoGPA7QYDqPiEpYGAzKwPsHiXtLzWjOKitYvN4LgSeYoYwKBp yMiA3 EvZgLfKjZDdiFmM5AgReMaNjHWeyIqY1AmZyDfMdCTivQfS2LmFnZDA5BTJiKPJ5CNGvBKQ0VAY4XTV7 NDQgN FO1WTC8NXJ5MeyqSSX5TEU2UPU6ZMDpWFI0EIF7AEKpPogsZvq5JUG9HPNiVvloFIKbFIMfGNA6QWLjM TAwID KdQNZ2YBSoHXJrKDC8KNI9LEKaYQSwOLHgNGH6EUIlJNXyBHTvMSL6IYQjOHHzNK6+ZaBuRA3ypga8CQ AwIG9 lwtk3QG6RxHm4UQJqTpopcGLPTSMiVKCaIFZkJ0OiTHCoGq2XJRH+BqQ5hmFiaLlWpJPgCNqg4JJkesU AwJCb O4DhMyEMRKAVaiS+zyWZnFoHUUBGxpvgKwI7YWf2/MxVHsjd4FaDT3r+tRubJ8WxP9GMKhpvIwGEbUmu JbU4G Uh/OaIY7lZRmRupHdFxnhYRTdUYtQZLQBzL5S5WKy4GfyHJvMA4p4EwDEF7s1YP0CJXYyZsCT6vUJR8g rgkNb dYwTMvOb+dWI6tfAQ3QfnDvvqG7LiVGMHuySsk8pScSYnBxncnBkDzQGYrykPjNAYKF75NN6Io0sWoQD ORyZi MUMERKQgKPC0EUF9kk8ZuKAJzIxRgVO4pkvr4SkQzBA0hmij3KB7GwNi5XBShFqdvzIYBTBWpJBEeDHQ uZ3Ro NZO7LlHeLfCpRj2zlKLwGN0WYZvhyrkIY5mQn97kuM5XhyUHPk1vjNMAjCCbWTBxBRPVLKbQGrFS4DMJ RAUUR MEHsyOb2s54Hu8LoP9zN51V7z6t9dE5VNowRPAJ704bVimIuW6dxfXvU+/3Ofd37+/x4702znXTyZdpj rXVMA sLifqtl4kKqFREBMRvBLUXMkTZEASwut3eBJykO+CSxkuwWtwJ/SddOeeHyc9uYFgNCUG/uW5M8T9BDB k4Byi YvPRiA9JekwuhTLPCbZmdkDfTSEBb6CDvvcTswz3811msAgwLMy1WajEkL43PjcGyxBaY5mhAWVOmICo VqZX1 OF/J5oNHlGIy/PuCp9ZGtnVT0Ip4RGxks6tCX9z+W4eI3dEXkKXXU9o6WedCCCoAjNUPana4XaBxqNsn HpgoN RRTPUgcb3KXhfEBBs+P8LYQmWkpz0njDAm/68t3jcuwkQRAWrVArCK/L6E7hvtro44Tws3N00PCfO5A/ AtvbT /mUv4ScDuXa358x5sMXQUQfmHJ3bOvp9m8BZFwaz3++M59+IW0NUeBiQC+fiN57R4cwxdXWOM7+p8Ov0 DvvM/ OxYol4eJfboZRhtbDmndyb30hLgzlMy1JbgNUBr3eFn8897b7KkxXjVcnDy/Vt5pEnIOa4bLa7VV1tSE Ta/9T U56d4D75R0l8aPQkNi/CH7Ry5vPkgozE0sSHOrQR37Kv4E9Waxse5CCq4e191X4W+mnT9X4Xa7axvrnZ ZOVgc qO+tj5B9ZfAQaQLXnGQS7LIbTH8OBW/SIAFMTVPE1elNsOETrPRiJG66CP0jNxyhU51gU1yNdzMv5Z8I AO7wX 1lLOyTg8ML4FeiCadXihMrVNXTi2vmZypHxbTOPaAXtNmAEK0DU+QF+UUaWBRCl1VrVHiZKoPKnQQyGz 3QCqg M6uoMiP4Waun45UKqIEEVgoC1BW4IV0RxzRkwUkNeQweOg6H+hRyRbMZfOTsZhICs8Vz7D39QN6Uh5U0 4MHwC Jg7lutuis/ApHqKbrmnqEZYoKvTZDaFKmYP5zHDcNatVFTV/mpn9y2sGTvOAtOeYfZPORWSd1JiLazhF 0Rq0F e4Pt0Va9DI0RDbIjYJl7WiLQsMB3FIMQ2dRqwlnNf7ywrCV4Es5bFSVoC8qMOdBFDX8DBBnrZaGROCJV JuJvc HreRZP55PXiBtJHHHHDXZeCsOU1ooedzKUKimW6fu1oLVYVU03NgjCXim+0QIxMMkS7zOWrmuJVuDpXs 8jv6K lSX2WRJa4ATWkhEYMxkePCRcp28ZFXZVHUZ6h9zKuaO9CFkb+2fftthzKVh5fVVvtKlEOmLO6PhxplH/ Tpmgv 9Cz8M46OH9Gq8gmrA8VD28+iN2OrTX5RfDSqd7OSu3qOAAA1ncWyfAmvCmA2D6k3qO5BAAs5hOaZMRH9 MmOYS 5kXxGStEfIM2lHRrwCQvqTgbJeDPCoe7lIvvn9yk8fgxU49a86ShD26b9IchZFqTGeGO+aGpzvILR5Yc eZKuH GjRr6G8dm4ldygJMdIKzDon/yv9gNamaozXuceW73kWrW+ifkkH+P14lL2Ru3z/yD/Ov+nsA9TfKPSCr 3Ffov AUg5nhDuhIUKD3VYMNH2QztRUrLHaKt58WP6d3wSSvV3dA82fljxMd0E+RUBbZtaQ33RbRPB0aSqojbz m2Tbb cxH4sOaZml4i1M0bs5LarS2ct380jP7U/YD9p/WITBhTpX2rqiSTygb+gdvkPEoVEzMflgTukR5NHM2B OxwnH C00CAgxgMdvDddtueT4w37OgMhpPtqIeGg6pFi0tFk4sjrLtRK4qxyfti1q+nmW8Lbbgznk8G8+wFIgF TQJ9g qkghLqp4ea8Htst8lRBlEreS0lQh72wA6VDZm0FsuwszWzzD4ah41ml4mH5rAzGu3F8tiCwfABZLhxS0 zy4fu k+iK1xKu47nXcCoBd5TcH41AlwY+B24nmSPDVoDheJG5Bofnp4R/3H/G/RwJQTWddAogR5S5hL4YmcJw gn4O4 UJaZw8SRNk6oSACFK1u/+KVGO3qUrLqrJ5W5pZu7D/i8PWB5MhUd7OEKE4UEHCsiv5A/CstJN3dyUg+/ QLBAu JZtvs8TrttYeU7DgOlmgxDe/ohNDMuhXcVt6FzZjeDY8F8G85I2Mcge6cX7kfTI6pd+FPtMEiZZJjkeh 8Qlxn ZCLqYx5qMku+O/GwHTLJHdYVbTRRqtPrpqWQkZOfcHuSKcV5VOv8fdhqERwfDvMaCmXQiQp6cM9ydyHm 2WBqc wf35Nr73VbmY11Tw7YJcyo8u/wyWIdJy2RbMiMhCoHMSdOmPtcmkh1drh3jh32U5tTsQ8yp1dnukrw9/ mMfOK 8nbnPcuPy+/Gs8wsv4hHmgZU9zSbgdOYuNG3yx1Bk0mjM55zOT5GUOHKtS9PIJeYpmMHbXbBAp3wdRyb Kz5UQ meIZ1sY6dGcEDHiwq8Axt3RVyEVeVoOMblrEEIQX2bNAm/yXllEWX/ZfVWEaqPqQXlU+JN4Z4HUImr+t iKpYn yCu9d1en1jm2uJqdfwXDfYNFn3VC8j1nH5sZTC9LOuk80UN9nDDyIuKzddjp8ER3LalE6m1DB/UxeM7s aVxqm 3gXkHeoe0cbOZNpyO6hGZqB4RjhfpLCQ8/lZPoZM6e7pdkVhqqGrLh7jCD1Og0jgrstzfg006zaRoXs0 U9sr2 O6R2phM4kI3om5SsKfiH8P54Lxqp1Foo3zXztsQmqJF28uqm5dpDSYLxsie30y0x/sGSg1ma58tzoy9Y a0Vrh 9b+bL2j1IXcfM+06kF26uADH7Dm3NTX3h/tz6exqhIdADhfa+U2FeRpox0XNc3kJN3d7Xi4gJxVMAYUI /6YuJ kkmZCZ/XikfmStJzoehDrjfSg2rPUp3y1Awn7oLG+Ln/igifQDiYjsbzNshlioQfL0u+akVqTHpTilqa Y[place]ou m/adup+CoUqjEqTepqaocqo+rAqt1q+umBEiTjHGfpI6ewaLnPj+XkNKrlpNstTKx7mYMxwNaJBTidJD 0nLUT eVr0AbQ3fiV8sTuiwMh57atCowU0S0z8hx50g9qjiSs1Zd4Beat+hL7/v3q/3dIbgOrCX1Vzvz/C28NY w9TEU cTOxUvFyMZGxsPHQce/vU8XwTo9jvoIYVx0yxuByzn7nVOUSl34maqQgg63l6zSQhS76MhVhmD/0sHTR NPG1E sNx2PB0oMCLarY19kE3Bur4EaUbAge0wqv+9mV0QUlih0U1IjkMX7t1zvdy+K57R1yVZMW1qTn9+Nj4+ vkc+T 65UBbAluR3h/erpuw5MpqSksA5nda1ykx3/ppmn0Y1OmrLC0509UnjVKA5ISrraJ/7pxlRjWh1OJ0dfX Q9d72 fnu112i2Lbzb+Tj5x/pX+uf7d/wH/Gt6Eh55/kv+3P9t//6CTHB3qAP0ZaOlAET6zlGpqTkjomNwPqqL NDMgM DZtZaxTRIevLVhKCJVjiUYdN9CCB12pka3ywG6MKYQeHmFoN6WwLkAci5BhO1WUQEIgA4RkrDG6ZK8MT WFzay 5Ab25mW1R4fMTpHQh4J8P5MRBzJ7TiGBWjUX4bxKIwJSqmGJ4+GsErKO2jjar4QRTdDO9krka8XI9By0 NlbnQ hAPY8PB4KOYIECYzvrRZqSfXcY3Mid7MdeiSqPNQtLb5QkADymnWyFN5Ic810QwMciNskICP0SY0eUZc gMjA0 AzLqRZYdOG1Vz152WuAoiQp1WXKlvQXwWA9kxtYCs79kpuhoKw5jqF9hnILsPWvvWCHFPTdOv16vfk0I b250U 4XsGWJhqW9Fp9DeFHpjJm6sdZkcaJkcaBI3YNZtNBEwrAqhMS8ptUXhRN0SjHJhCqC9PD6NvHMmB0Kuz nREZX VzkqxhiJ3tL4fBBAzniOZyXGA4Zy4UVI5wm1ZaXtJ1YGJov4UyJol0T5EgiQZWCZONt33wd37ndqMmIR 9Db2x ixiVbWMAfKBS9MYSvXy3TUBFcKPHCFKCncep2O0LdpPJNKMECj77ch62aruUhAT6Nt2ioeoMpLs7Gr9o 1bW5z IDgwMD4+S6RiiFAosw4AbME6VTWnP78vGK4VBEzwyNNvHCTpA6synyv0eOJkHoUdEA7EAJ0aP7eiR7Eh dHlwZ U7CjPSpRG4PjTDwA0nMAhksE4TqA3wwpTwxJSXrVw6ijZIqGC8JKCtxa7kxFxaioa04MkDW9P+MmclcR vxDGQ jrs9QrPXeCPGKTG0IuUpWJEgxmdoimuStRPjEbY7aIDOsRHZfV48DnPBT0OsbFwwWWvogB+7Z9r+d+nv Oc5+L 3aTosOKXfryX6CZtmAP6pgGr70/Euo6jcp7FLXUGS2XxKerO9imyQkQC9Es0ALncjHehjjsBWtkNRBy6 H6zjn zk8RDYJNoO8GQKPUFgC/4wDF13ijKE/cXkc3cNPfZREF4/IzoQBmSX87Dqj7X7+d87QCCHUZ4R+9r/Y4 NrUAL mTg2k5+csbeZPQREm1kSPHdk6smjn/O4M/HAsbzx+FC35htKGi8RsqxtWF6CKhojn3r/aR+bwqg9wbGX VH+3V kGdHzNGOeHcJ86VO2JaFTHkUtMrJnCgOYEjxclA8o79VinKhaHT2RPoYfWc886MI/4hYyQAvUOC1mDsJ ddGoo HTGwrHF9esy0wxvOaDsZGEVRXh22d+HTF5LZKxbBRu2cUpKU5EOGPs+wcmWI8XiLwDuhELSY2kRmlP8G C4RIh QyDHiRPnbogyH+PUXAEJP6KBpiQxhmz1FlwNBOkOSWtGvusbS4D45tmIL3oFxYJoIOz5Aa3DXpKx6Zeh RdUW/ Sm6qONVzTJpXUenXsAwP1o9W0xYT62aIud0DnBXBMO6kVvPiSLgSzJckiUSJZXjnOkPG0gxFKj+PCvV1 jeNEB pvE245qQHXroEM6JAhe+fZQapNQNI61SBUcaxvL3ldEnD92ZY1DmPBYKAZmSTCM8szHLxthm492WsPZp acoYO D2vAf1lIWkHcpXc+NVqRSKVXIOiIAi/FLoc/4Nj7SAqBB2BgXpaa+k+PEifOfh9+gjYIlwIMv43XFRqX 72/RR WGWQVervtTzWSU0fhjVjygHvtBQ7LdhVvNyQ/IUAEaFTZZOp/V9ImULXDyCZqUX99UDtk8qAQ3EaTZrU iRPnr fjbIQy6C/41uOJT9qepbpElMZQBgLLHESrCJeEbz3AofMU1Jbm/phrnDnFRk9ec2QQxEhcGD3KNgpcD4 dGUmd iuky/kKIEGVPCCAlMfyarR2In0rWIkqcMgqE4ODDMaq/dJTh0D041RJgs8KmiaT0UUsvNrFRLR0e+o47 nKrFz iZXJZcZuEgU+AQlApzSO6ge7iQ+z3ZDGFSbBBZyNMvl0KdWEotKMEokVldvG2HtnbJX/BISCQcQgJqzM MgEQO 0jE/WYs8KJL30SHfyjzuXh+T9N5uSFXkeWsNFEgEbJcbDH+Q5zvf4FJUOzWNn3Hp9sDmJ/EADruu+wn8 MHHix Rip0bkePwNSYk8ddDoF7azltyI1EWPecYT05WY6xzWokXTnhUHmxv2Ud/WCgjVYti/8HXWefl9vIS0WY qUcZo CRdgP0r4sIAeTCuik3+RjSmvhNVPqA6Nv1tWvXB/tp+WwRgfSB+c0k93DWJnS80n64526kzHiZXInX2/ KaFSN AoHa2sEofxC1Bh/0EU5rfB/JvVPTyV7ic0pcxj+D44j//nZ5ShOMpG1ij8Zl21bHhHOUW43L+RMoW5Ds dzUoJ VWvrjvvvv0/KiZfHqFiFBet7os9nBix8LnA8aEGKupHarfl3+V7aAsBZdRjHmNq63OU419bObvgc7QMx p7UR2 dJpalmFXzklIzKoGW9CL4BxJ425GvW6iyXNMD9LZZhqRhQaRpYFI3O2m/sINR8KhRXWfSG8n2wlXDEwv GPHjn Wnxm6fN869mCpxtrcLF0tsNmpQqHwQrf1HxcEsYAfuZQZJu4g4Fwr6MmsTU/SZQoo0igaoAZ1hn7UPf5 ANkyc /pWxgE3Sdlk2PwxkvG39qfHHVaPxp0zhuZhFYSkY5KJa8u53Dirlgh+XJ7g8e/NYWoxfY07pu19U0+cJ b59/u +DUNnaxeqozoA0vWcbqdsKfekBNEe3JT8hH8ozVvT+Ann4npfQTtPHZ/8LlWtl2ia364VOUswG5NG8Xb /CWF3 RBkg76KCNJ2nvowB3E+1Dpmq0dcr5j4skrTbGMOpqxzNvZctI/FiTOYcme/QsvlMvfe+3pcU82uIhMGo 73zTu jry8797MNudyGaxvVwv2/F1FsRHlS1WjLPreeLORLb7d86rxLRQXDZA/hTk546VDRr9IZvgMYzj4LKwe R0Tev cevYu76jLal0Jjf40d2Uu0DHPCbhIi3lP7kpxQET2/hHGqBkAUdhxQhzfFtQHp3kd8tWWl1b5ajhh4Pi TJ6qz V3brxWurrOYGmxy7XUjPKsrGyfucMU+YZYGEenfiTwnzqhSP6Ynf6/eQAdP9sQ75eE+8eg89fgkkW2hV Wmzfg f1Y8/Yy82QWmV+2xtoZ2iiGPYTgDk55+PveNakTgRz5Ct789QAH7c6xLIsdoG1k19cOW68+l/OLqhZS3 8ECT0 8umFMa+uYIiHy0rU+06WtBQKNleOirQ1/4kcl6PD8xPGA5oh8USKWzDvt4yVk9horIJQxbi60p74qUp8 RTqAi LSMb8CAwoC6SUF9jIxhlcBr6F4pcYNsqZLzurlOEuxgF2G3+c+dOj8lZioVm9D/9tb94jsDpSZAgJQex +4wfa FH4v4Ec+YBznI0fPRLCL561Af5N+IHD5/WvfL/nMaLDUtOljs4QWQaReK9911fve4LtNXKgTs7c2ZstW EJZlo KgXlfcJTM99wt1GWXFDA6dmKTTNgENeIA43gBWzvmNriA2dGV01NP7pMnURGjNWONSZDyCw4tAIrKO8h dqQkZ m7WpyeFyISXTltvB7aEkw40/YPBLKpdS6nHlRRinliLq+DNzsuLKiqPHLi+Agtwh8gZjrjDyvWYgUMHh uBorA B/1Z+cG/lrgR4OG7H9Ixi/7VTpWXE626ENXXUAWdOJk3q3XspzlVZYNFvGh9/wu4BtUw580/TvGWTTSl h3LIM 6VbVOx74gioEjAEd6mkKohAUgw3gB2KPNQYNhdqIw/yfBxMdF71wyB0WltWdKiIq29823JvsbAhFiDEI ruLEG KLbm5iMS+rY+gyEV2aTpFknvd++cgzV1t/qsXYnnZ2odk2XGoBsBn0+saD4nDhBtfG9P1waGkiH2yz8e d+v1j DfOb6AiQz7u36KEr3EF7zquQZMeQdPa+rJlLOrHse8B43wn2rB5UEEtKK/orLjwt/HBvZ4t5LzmYarPn 444T9 /sUKvjbEf8pic330biucXBpKry35bwHqf0lJ7bRuzoCRqTmC6J+lEz9QZ5rnUW0C5zrdUS95G2Zt91YS NEtSA SXjC8ukUzO2hXNowpa2yLnO3EgVoRrOuFuLHxwMTYiKKYrozzCTfScJPHRjQlPvUDy5q9x1z7/Td/RCT mU6n/ zD4x+893342A6/sd/C8v113TAdhwktqpFVZ+eRZ4pqFyjre08rs6wLWqXivdGUFDvC9cY9PmeXDaJO0P 1tLu9 cZeJ6/Gl098wBpo6jXyFrbBpnXO+Zl6SSwKQByM2dKQk3axJJpV/vA/r+SjCZiVYUN2RoAUYwvl2XLqs a0r1+ sC8llhondnsOtSffhKdd+XI42fSnC0s2AiLp9hCoi3akWi7fqzjuSgu0rCHPsujytzn2u5djvIRz03Ve tW2Cs tFa9imE0efBr5qLqAzFEz4Z2AaGac+OZZY3cYOK8H21wMwMzm8pndH6wNMFqOVCPr8OWKVvbsRnbGwzH nPqrF MGoT7lSDb7O2ZUbbt9xkFvwkp9rM1smJDbNfpiOfb3WFkcNMaPnwhpnAms3+Nwa0U4dLBIpMmc1+AlFg hgHwI LlZuR3QWQDtZprHn92Sv/nONTEEPmRGcVbcjGtpPAthPxU6jZFaa/98xIrjJzKgBwPw8b5B6OvzhlyTT DSwd9 /h9qvbxlszdtwur7c7sE29q/ZWOrxVw90Ltuh+TcVa0vmPlqrxu2AozItHYkVkCusnzfiVZYaA5NmO73 D4XDz 0imYnc0pEujJpcYYi7rAjqx0lN8qsD7ViMWW7S6yzFcN4wdz0gWWZt85c6BsIX1mRUqTet9qHk5kFy8i qs1mq 3tdlIf5CZQ0qd9uqxJPrCl8h+7AsqqulkctWJB/0qy6sI6PeJ4cXCOUkmMrf03UogUtEWjDrmsGOkxWs PZWeV zMwoJj+hi5YW8XV+/hxLTjM2WwBTVXzfRuRsqGbcdFo+2ERikXjm8ggAOrf3C6ZwLt4Nmm+SkCeaMP9h fSorX hOfUZDlJolwYg5YZN7DH/mBddd+J4UlRcuowa4rQpTC0Rbgy9dh2LoiyUx5dUye8+AipKag8FIsf6Mwc OpZmQ mW/ZEAikhTbEjFplDz0OnS4/9x/dYvIknc6I684IWUvZcywjwXUD98lMXqgXXh40OMHmRkw/BGTP7IGL OXv2Z tCHoDA7yg+nE1XN3jK7+IuZrno3oYBCSy84KXnc51zuLAl5DX7mWcVg8U1ewZ8/ZwKhPJL7vAePetLxG EoMnf 36G0BcKUq53QxCFxn7huHIIYgFZFy44/9R+M4kmpv7iYa/kOHKIDxLeIpqRKUbrNvtOvoVQg0PkKK874 ZN0w0 ElUXeOOm99b677TMwhXYFc9LoUv2+tLRUEASYgAwqAnRUkrdtmfT+zgrnx9OXDPmRzIITNV6yvxoH4WA Lj6AV NMLVCUMl3gqdmZ0cq1IPaLzrgwFKo5r/Al9ti0Mt4kgwwv5nmPIzBI7EoMc9+SefD1H1B+qjlF27mQfE SoCgK OCEreqmz6DnfEtdbQWp3kCa3inqnV+MckzTnmF4Q0BLt2ctPi0HAlTQXsKaql3pq471uH6GxDRLzh4aa eaw8U O6+u4046914lKBguA30SCqu8tZOiOGOVtcYCejcP0JIrlj8N8CLsCH1j3DvFrD8g3F8++hJUuWuiUoMt R/XLk 2p7YgvwK0//PM2Pqi22uHNg7tSKCZndrcYG08GqnfVCqJ6AW0gx7LrAu8pX/XbdmKVTvWXDpjPKIE+wc L55RU Ku7EML9ohVwG/488jKEKmWXvDbPayVj2502VzE0JuHx4puLivmPrs8KgA/I47FHYHuRXKCNg9l3uYgDq ZHl5O P4GmoRODJ4v2MV7Qyk3WhJmNA+JYyG9/lD9/WCrzfEj6BLFxfNi2yzWtw54a8DCh89nfy9nu6BAbg2gW DdCbm hx0aipIF5F4akluLjvMk/AlJRpZfI009IjVvk7LEL9x3VHiGbq48BwlXcZggGsOL60Ze4XYOLcwTFKuv aWmvE SSnsGB5HU61VIEqnvLRj33tukiI2gdvYxLvyKwORgquMYPbZkrLn3qY4b/3VrofQzLfYp2bDvQSPk0Pb aAdvC 7zjpiPrlWzd1BMQdDef6tyXmZb0QzCbbPyjq6ysNc3/joWNeTvUzvRYlPHqROzGBS8J8gyNRBmgOcvnc atKDu lcABfS4YTSOEpwjsj9JemgB8y3NHLalZEjslRHIJ0k1gl5pPjpOSGOpwinwpLJ/HYKc4wYvv5q/dfa37 /zOTa j48b0ERsl/6h2SYFmPcMVI2gpWAMuZV/CV2+UKbdET0b4z7Wmf7aMEFlu3HA0ir0HlAg7eeKJBo2aajC 1OnDj h4+HPFJB0jFq8CJ6qk3/pH4QlXsK5xCE5Gm4NTORMxPgYI4Xl0AVPtfsm5XR6uDXrrWpgm1Los58MV4Q TJOZd zADcgnkvd9YDdbOheovfsh87zshSpnPhxUdyGD2NOGMxOpQkJ4jsumXCmfJ/YMmSpadAmmFxIAiDSIXD jpGAV M2EMSR7qWYI8OaD3EVVT6i/jOSgch1D4/2afjTCi57UDR83Y91SthxiIet8HQj4/xIlu38uEaEjyLG3i WEYQQ fo55x6U8wjWoMl4XrfLJ6RC70/9Ikg8vkA1R/0MzK3ZhIndY4w9QS1xgIhkq2B73IT7BQK73Ab4a3Aht z9RDK AeEr4KxHx8HdDVfcBLN46QACBGRHvhwrDgDXN503lyVTRJKyiFGoOCBpykCZ6gTDD3n0izoPdFx6/y1q YTAzo z6G8mEiaifTHmEIMZXv7rgJPj/XmJXfXG4tyMC0uuDdj6/PxHtjDnREsFH8a1NgKDIykSqqa1jg+8oIT wzDeW 15iKorfY7UOmuF7nyApJSCcAPHnAJflAPJSktnCUDcIqwdeyyjpRf94qKkTWKjCjPqXBuG38hVHDn2gS zzCCj ZERMEEMGhbFBpq9qCMvFYwSvU1t5ZbG8YKRgVjTO0HNrYtUnNKt1LvWcJZbdLJt21qQExEx8Q56XEW8V rohLO P5v6ACVMOnI2hpmOJVSm7CkJEKz8hRvIXv8l1qZtKdWILy7Bdc0B7OaiGykQ5Ub6KdJBDmbRCGzPytal 9ol7f G0xq2lof4NQmZ/sg78NNiCru/hVMKn0dujvxo4FpkTOpuL9utU8IXzZqkMBJCMRbCSTMwenFJ9DCldM2 LuqDv 78AHaAMwHVJYuGuEBF3jTzDi+Gbm1o2l/+jmv7qqd0xjp/ZECVgpcpJAHgYb3ko8nNJHMOas08Jjzn9A CpJQz OFBRYpZZeCUQ6aXN64+tVtWH/Xyyn9YainRrTrZhDOxIiiQcu6JVWt298pru04NosNIGtPDdDoiDQpdB QkCvx uEG0GdltCXCS3ZEjzo2omQUy3Es/gwzo6KPkr0/Bx1ina0HGpmxk1P6EhEh6bp4sSqyIfybh0UFELaPA Ee3Bk ONszxsIWPSxqDFvjwiRThplCHO5AQp0hbiaVsl5Glq2clbETaeYo1DKgy9hiNmDAsOAylxt3MPBvxjjV xGmq9 3iAlB/pteKllbpg5IMXE2nZ0DhJcbQxuu8DMlNEiWeyvhfNyKdDNtJSHBulJcCae7bfsM/GPRUblsOq3 lKJvn mUSv96Yw7e1XnI/F6CbMKZdQLSOlbF5iCeZ2/mQRaI+EGjUf/BZffN8rSHbGaEbMHGaGQs7Y9zFOzxKj GVuK5 mebKcWrU1+b1PV3UFbeXDct7CJOb26UjVAwO+ncfh4SWmy+CvnI+rp7iD5F9aRNTdVDK+ivdjeHOaPGY WIFbf xNlvhOuuoM8bMhVhTlxS5RP7qbsJxnT8zsHYb+oCDGEKrhiOagQ1i7XszYQMhRmKchK6mtSAUz6s0tNk 4eWxY sgQkEaT8GLd7DiLExzQKwracE2anXGwkCOMjT9A8I0qdRuXxH6KDckYyXR9r5cUTZ2EYYbe4BshjEVDL kMyab t5Wn+8F7RFaupTodIvvs3YVnx7j/F5H85i6p2YgTXBkxxL2b58wQG3EeeLHmcN2VUqpZ6xjMr8ZNjLRA c/BnJ hD7o3n/vUmD4bNj5nxzWLbaERK6URb4fGCTkbdTdXXjWWO2z9pgGI3RhxGBFONphqyLbZrlU+nWWQ4AH rp87S KM3rpezMDcafUh23bRCjetb0SU/QEmlAB6TkoGFSIi11elJyY4Sghmub90lxsUCin3ka+FT+wf5gE5xZ rbdlZ BLOSbCLm4Z9hjP9fOgLjC2sJ3/ervapR3++3kl/Z2K01SHm4hpq0+o5Q2boBDbgu6VHY03vJbuI4Z0/P TtP82 xKxNeb8MsElg6sOMQA/qoaYMJSTae/GzxPNJKbvf4EU1/0VST+nJWMqkKrpOwHCB1azNashJ5ujfCoBv sLvzs 8DjuAGxug/7W3FZQvpYmQEW1tZoXDPqQ/KlNQ9+ilQcKqms0eQa6jG/5RrwUw4gWGUYLuYv3SFRn1bP7 hdX0w v/SXciX0Q187OdHWkG97+CBsIDlMlyhFT9j8tw9b0b2758nUL/kFNzQzEz+mI6w/CZ+4OXrR7W560eCh LRbOy fDxVRuPLoAvILsoIj9UT7xIaPSjGsDAjQg3RGEpC7DVjrpX80mBhOKovEr86mIox7PGDzp+kUpsBXcuL +PuGl O8RGLp0AMPe/Pem359x7ryoRna7x4CXQx/r5abl18UtMuYDf9YaludOIoLmogXcxmbgETDfNPGPoMQSP 1bDIy BRI+CvDjUzU+ivaD+AEINe7JEK7T/d31//Hqbla8M1RTSCcsRJ9opAhoRkdR5IWMEsMNoAcW5KSjB+pwN JqxRs BWa8loEoBwMVx4WQyoIDTW69wSloQvHacEY3fJ+rit97mwmXnJFhhlg+gQKBoIYZFOxhGjKeDJ+vHFQK nSGty c5iekNg2gkxTJzDbpIoHL72qQ5IrEEguK4tw6ZuglgpBatFtT431pLh/nbZm0NRWXnNSLLI9M363KLVp FP5+1 LhNQyyCr0KBVlYzmOXyeR4CiJTLrA5qI5q6SHmBmziKHo8EJkD1rTFIKVhcUhlW12+JL96GZgDD/ygYt RfjCa FfGUUqfbAsJTyV66jAmbvSrzrRW0MWPhyp08llvYL+9ERX29JvwG0kmMLiqMODftEgEBkvL8+xi2yhKw qwhqk BJK50E2v3HK/Wm56mqXXLtVlUScLz3MX5DVZJa12rVdTDVTHxGl+sbQOP2QcC7zCmvO42Yf8xvJudLyx cPFm2 tkoMNMyeXCGPQsGqHIaBpcCTZykTMdmz6d+AZv/MJtZJg4TOfizS0HoWsN14vIJGoXB5jQuvFF6RsBSO xDIPG ReWLJdtO+h+wDtJv6++tkCTAtHZx1zCKJgAKah9ytQ0VBcq4eqK3gd5TpH/Pmzz/o0ay8w7/gApg9372 vzszc phh9x6ia3k+ActBdsPv7UM0jKC67mwB4/9HimEj94hupsuc2Fbex9COmVOKYmI9z9S4r3Iy77gQO5Z+a WVs4v Jgcioj69xKy+yu2nz/3u3OMqDk126lJQQxcc/mj+UyunF17+sKsC88jzarp1qmljo3e06sWCV/z16TM/ m50dX /YzDvmz81H3tcf0BNc4Mj0bkqeZmNUkilneSrsDqEUp6GOKi2ixvPt0g4h44+UvrCx/+gcf/Bsh9LGhj e80N2 vsrxKUqvZXhuwJUMFW+/xSj4geczVtbJtis45RPyj+jn/c/fN734/761h/A+4NJVg87BMOLL8IbR90vg jYxkY PkkA9Otx9/PgwrnOGmcLCwlPAm+9uuUsyMDA4MOakVPWxW7ndJ9gMlVZ0RumAFS/g3i42/HgrwuurWL2 L//wL Sts9tm5L4y51WMFQglQuXm68Pvp2dHsi3x/C6zAQqan6C+UTUKWhSCf8vx3NligyI8742K+nLqMbwaYw KSpVe yjtYbyzOpK/pbZdFlXJgAYBoGN8yqjhU6yeR4LrWIT2uUQnvVsFkchhZw6KFsDo+eKwv8oRupZT68Sim boP2S Nh/XklynQQ5tz6HnHe+UY2dvhIKOEuRrWajuMvWl+WVZZAAfUHzSj4uONIr4YJjnFlXujXXsUtJmAa0+ wFxCW 5D8g03O4DlAeWdzFiqAggAVcDIFKztWrgG9lBpJGv5ME1jNFIbeRYQHzMaKWRfWDGdUkRIW+gPaNSqGK A7FaE li5vmNmWjV2UVnbyhBdkfDig9CB/JSEhISEhIfFOh/la8SwCYhQGNxTRkrwZL5o/rzQTaWGMwOt7Xs0N /JWEh OZRlDYB312/h11eZ2RnNBqUA8dPUusAAQIxCfoJ00p6xyZuXoECuqWv+EfYAkXMsOBLIjsh35tkiPgJe iDYwI b/cIgJlxPD33x1EW+ilb79gq4a3UdyXSL38hsF7t72q4qhhIAqktyXyZy/Il+RrwAAQFjkK/IVAAAIi3 xFvgI TMAFZl1gMKWBkUPJD+HdIRZUMzmGaZUBEuGbT2GtMFFFW+Mb0UWNEbrJgun1CLAXY6GjkUSRMQZv3Mf0 CAABh ka/DGxNTQScqQpxAMPDXFz7mGzMTsOSSI+WoXDRGNdlSsPAYZPVqM4UnBFDGEACx4vIBILtCmZP+AgAA YZGvy CyVRDEd4lV4HrHTcWA+Mn7HETGxoShiNfQQNZc1oqvMYWYBTa+RrwAAQFjkK/YHLWHBb9pKcqYCUKMSq 8hXAA AgLPIV+QqKEWGRvtNcPGBJkOcR6TeNQXSN+Wy0LXUElwWgdk8JCBNB0QljHPIDSPm9Xj6BVKOpwx/IVw AAICz zDukUPJQEYd4qSySDhMODO+JrWCFMWwhSsAOKJHEgR1PgSSRWBMUw7aZMZDqZrME+AgAAYZGvyFcAACA s8hX5 CgAAhEW+Xt5WMMPevPgwEcMYKNo1ecxOKFBDJz+RrwAAQFjkK/EECPPUt5sOsdMOXQSIj1nLXFOkUPDF +QoAA WULwoTnUZJGhFbK8XhZRWSQ+Vu5BUCAwnUegr8JZGCDk7a8FRdrShuWvm+iLnu1fbxeWG+bSn2+0muSi 78upT R/HzRN28X3vvu/ItRB205VtlN6t4/5lQAU25awmhl3rAehqP4Lzj31VdkyfFlSYjwz6Eqo/fIr5zP/1C 8XP+G cCun4sF8aP19m/K85mbbX/5uFT5t+0a+lGPRruYY+g2OmJHBfLQVTLblW9s27kNsxbk7zSFwhHZAVic2 sYFld CajZnX1kSp0osCDtKI62bzweENhmjZRg5sf00FVrjFeeAgPfcbM96LljtBAl/H0ZBegxycIaR0DUY/P/ ZOHTf gXRcNIeMUkMt5frumGRb76ZnZ7k8grV1Y4IRb/FFgHmOm8uktC3ZX0XCqvjVHU2IatHFxmvkfZwfYA0g 9gvR+ NZ7Ute+CAmbmopOlWsoc6VzYt8g/yFf8K0WNzeEWaE0nr2QS+14pIb4VeE3tw0fy5qVkVj1dxX/a/KpR rmVpE 4gJKd0zoFKbWPhUUmBex1bsqVUL7d+9Y0U2MgCTBRNZxZBFRBZL67+wXCpH0a7Cc4JNrce8ld/xFaloj La2tz gokutOy4b/dOS7S2xXwmR610B040PZRL/zfvgzvhf81fhdbXkoe5j8PKI+UgYrGM1cUxv4qVK/ssIykq X3Vlh B2Z6dtKKFi4KrCT0Yj+3t3RqT0Jt/bgXD4MqCGHGYRxrga62wQOuonxOV4txvT0QL3l70C95Fbakb6Ht yt55Z ytxsMiLSu/xUxLPRzqX1+239u0cyXOmOg/OyX6Rb+es35V/ZIDtt2x651Qy074xqtIijS0a/Y2O7p+Jy 17/j7 yaK3KT1xtddQattonfmBo3yu73j7i5elmU9I14qweiw6Zj2z/OWzxYU5hWscVf8hgNAhd9p11xeMr/Sq woQE6 oiOqwumvaIYSqQogR8eENcvGQtSAzzYJ020S99915ldwUo3/dDuSAbbSc5tu5e3E4EFe2SWQdgndjYSZ iVOrt vcAPVUmi5/7vlLNoYeg9vowI1XwxhAFZdHg/IEa0xfy2JmZouRFnvIVm/vw06xPHbvSg7icCRaHdwKvz VnFzf 4/8x3Tb+jg4N7zd7m91z/61eahFz+3MmBGzH1C03eEq9qUl7c+pdKkwdjJpJSolLH+t+u2UeODimY2JZ Gq1sp G4o5ke/W62OoTdF52MCaLX3U8RQ3Lbk2gJFdnallebWmD6fJE+z/5mRzsSBlZoqqPA/EsBAetU2DMQVy tONZJ Ew+l+TIk10iJpnjDBB3Ure2tNPxskz8q+PbjEjs9DepKgqcGACMXiniwen5y1/P5WmVJwOaJ/bs9d70w NvVLw 33ofh7fy1qNLK8o8jdP4xRKKJGji2xF2/v+JWaZ+8Xn2flR/nKNknlcXbqEVD9J2qG/8Cd7tL813Xl0l k310i /61eZjmdQjPVqZ/wtXvfxIMM5Cu8mKovh93jPFPveBinEAMugQvdbAGQMuFuzwotcCp+T+k1vo80Yfwb JV7Zu V26ic/7jMmoiYuemBxAPZH/t87NjVQJq84W8chAyA/1P2GyLeW2ibWL4Qs4/EynlNPlqM/w85uQbtPzq d0aG4 nqJd1rVsD61K75PqdvIs73kLmx2fCBIHfuM+GPniyLyWx2oXZXh412QRv+aC6zjpyT58rnZ47SwYkc1Q dPFN6 mRV6b0cVa2qE2SaXqlFcApcwuJmPoz5l0yptWKW/SKdna9kZVIx1fj3zm0dKetEjjCQxNPZiqcFaqotB 172fq Vprt+MpBjKPF/GrEAnN6hBB+qFdFGTVBQLOy4CF4zWv1m8Q72xRbR0VWpjtf72tMS9hAnQiunTcHU6UA cfyeE rfdnw1omyYw0aValHhl9vK6zzwxqLNxNM/imer0ziJxEDdPAc95vu/d6yi2sguh6Jctp1y3tgoPI7scv NLXq2 HlfPK6LogDWnYI9+ImsUQm1WCs8MbRXKRWvZKMswDXQHLSNX/pczmznRDJOEP35JpMVoLp5CW2DABCbr w32Zj UQjtWjnqhn6pvTv9u+SDqyPcgM0eqpVofbdPo8yiolssAvzP/1q+Kf6xGtiq/Rptbtr/zcLfq8y0vgkJ 7j2Kx tK/5b8dhJO9k2vtRPj54rAciOiR2M9lRz04p4//7T+W1eQeR35lQC+Op2evBjBjMhrUJd62tN2P0lf/v L93t8 uffPvX/ji/XPf+ZWup8pbe1+3be6x0nM4tlp112q3vKS23n2A/RuwNvb5nxnrV4Mw81xk1nY8608k768 lztbq fy75GXf+5tXOmxsXb/RW3rtw/h+vrL//5a/e6V6++o95pauyjv7LeefzjAl8vy06qEnOQic/rX++dPGP X/rKn d75q2+vXV15ip19y79lglIxt94R2Ydli6nx+bdJrA7G1s85cejtNqpizZBl9aLa911W0vMWqBqj0+DN1 ZXffW fzzfVXfv/D1986/7U/sD0ufpCZl879uPDbCpgvG+gXuyEW6Lt/Qg9mfbB9ysG+BealS5QZdUrb1tG7Kk ZjGzv OGM/YliAXQZofzUSFC3DC9JRVNKoGDTqVY00iQYqXaXBPTiqMVvexInHOQd8tiIgPouf0bpi6+0Xg062 6H+ec 6h4/Ej6CPwhgMc1suU5IVGgf/r8472jEUo4CdKws0pPT4j3eIzL9Gz054z6p/iwbeVaPYyCOk3mjLlLQ 6atHD l09/Dn4REpwW9qWzPUyRx5BLt137ab+d+wMKA989xoCS7yln4/87OP/V6qBf90oJKl345raod997hC4K /3zxI oXEfn8KiKdjB5/fXhl2Rad5U1P//Ygn53Bp/SzJ/YsHT/9h9hwE2gHVC7zntzkOlfxkPr9esx2mpqF3x yjsoH ux4l6Ug/d+niaN2C6G9uwkqJEnwFjJvXBAqKW4CPCLtzpUv3XmiyDs50GhsvFBTFxCB7tMrjdjKFY61T cvIsb pX/PzOPmbVZUzVP+GumMSxokB20iLB1+LSLIma3GdS5oypBAjXbUS1DqBsWKaBgf4YffmW32MnTtwELE q/Nhc 6kXm8huBohnXk6WFXIagTgrG3/lVAjkHeIvt4o4GSa5KzdZrBILXyuiDOB8pYCW00npxzNsWfqakJtAT wYTrN ysGE4LRiWtoK5iDQ9biQSjIdQc6qCx/5Q92EWZ21HBRHLTzwJAaEJAgvY8K/9+6PrFekCq1qFvO5UYda XtJuv 9x/Kfp+pRKM6Pyu5J2PWQloSbEJXveVG1ynFVTUaHQwUm480uVeSso8TF+XDPW9wYCY3WNZPm+kAExKP 0fJk4 KT/1CaAVUOA6Sh6SR1x+sf3DCi3avt9xVG8u6KouiQWzCGi03jy2d+jHdSHYU5ew63GTTqu22SAem8rc Lh5FR e4hDIn3NannCOqN7+K+Kss57FokUI1iArXUE/qTSnjJv0wg1ylEhg+ODWA2zMJuYsKyLXWOnD94NCcjo 8yQhb rLzI42HovqCmr+M600OkGNfDRjjTLPW6ea8g+xtt06AbXnVuLZcVfjv8CAqw6v4oOYQ+HWN5Jgmb8EJZ 6PtIs pzgyB8lIWesAf+Yj4ZYIbfkBxNUKUzX1suG4MdK+wtA6nCYHcJxIkVdo7P8vwjmbSMF3mMsukOfF/GXf auwlC cJGNVrdHbQ8eYH0+ztCvbgNRfSwa04ltVC7EekWTKpAt2Nr2CT5ZR4P8pgvMF7u2+hI9BjQ63gV3wYtG ZFKDQ cbCw+KZN9Ak/y/fzUWWeO3kjWcv6gvxBuWAsYS8Vnz95FEn1iKzmh056RzSOz6skhq4/F/OgZz7F8I4l eqw63 UUu/e46CXwlhCGWGEEYyHcSaaQsyoLeLkxyL45T5ak+YsEkh1IvMFEhrd6ZjRLb9NBXfqfcqgYv140k5 8efxA RR5LAUWRZ5XxzOpqmvTaP395rvQwCwj8KspBRs56b99QtJkVChyEyRsJyAgD7nDpru6kj//kLs/BaYjN JeMiA iCYFomMKVb2i5Qbem71bzLP6HjkamyI4yeJSOcyBQLaXpZu0IYiKWJGrfJBpLtNSHvYRNYOIkXTmeqCJ aayXG V/iOiBseIL4MvbmKThpOSq1HvzrOxDlvrfpQmdfGUKtiMsKM94CeWwU8ykXZe4M7WGuMXfqKc7ag/C8I tKayS GkEnR0eLW/12rYkU5sWAzw3SbmTZZ/Fufm2OK5lAyY4ACs/toah1gu5H8SaXk+QxzJHxag4z3yaFjK+G S27SU HCR9fZz4b2BkskXXmE9rzx63gPMWML6cb4dAxIcKQWwirCkMCwu5anLXoxOnSMfOyNEK9XsRu8bAk/Ix RAkux c9yTXcVppMUSXa/I1pPMSR9Z6yHnP3osAiokJu6pkOKHtqx1JMWzC3Wx/2EFayerqGsTG6kJCLVGY91z wITXh BeFh3hy4R24a38KJMGId41chuhGubdL6wMJ+MGiAyaQkrNsztXmfkr9E7XsGaXjiNjmWMc0zRml2l6/+ hU4Pj 2ReRMglNngnh4T6lTLs9d0yGe5xm//eu5DElnCLsmDmXFdS2CQEzTLjagCwEkNbnILEOlN4Zya+rTZcU UmrD7 rww22gH03kj6uGr4iwo4MGNlZZxbwJil54i/fC2+OAAdFD2iYIUirGIysFOn544uHFZUAJaHHBiBDgBR HOrD4 GxsL4QKM/nLnn5BbGJnKz/BXonxCjgpib1wAyVm1Ycy93MmwX44SVANlpjAju5fWuQRu3DllsfP9rV0o QNKUb 3Qk7EIo6GIx8dsKi7WkCHIzp8xB1FD49rPaiuUp4xBkgL9S2YstB4g96ncxFWrHuqKHg6xNRikUbBxPC csgsq 5PxiTwbUtk1gOM15IPWJ+aUMKrcxMYgYgkEjaMsohU3+xldFOvVUYkmpZdrzG925og3pKFdsTqfrsCCl uq2pf ktz9lILg8bY7c4NbichINr996ohLhyKBSelqJKo1HDhEqLzmlH0LX7A4lkNCtrtTuCx83lp181C2bMm/ PLQUI C46AAzq28rNgzQludDgvI4dHAD3eB7iDOfIcV87WyDy7V93ocDFDKys8rPy+5RvfKTqvxKIZTdOIkiYP 5jm4t MCpt97JbupELDbKTJrnRnWJQz+zbRz3ezwYcAOYCOBY6IJMjtrFO8Li6+F3lZu4mTsYRofE6VxWqXRrd CazRZ MM//DtI1v0suTq0jUofEL/BASXqm9Lzre6i4e8lqhtxB9yaUTzUBDCoyrqkCq6sljH1v1lQg+SUlZaXF FKVMU yFQpcyxQm5xS1BlzpBMRj2G8R82Lk9q2gutpSerMqO6oopK3G7k8lil/Lzuijsi0Flria9M130Mi3Gtv BZCYJ 4wYIHI7b45BoIqEFcVqGO1vMxYBo5GXwGqU6IM4suz4HlBBh9FkAc3HNN1Sn6rMXNV/JN5gTlmFGQ0YS RsrgG blqWM41UB3htwpLgImLqyue6EXpwElPWc74AOlPoK5Qq6Qg/kOPHvqVesRx+1CS/P0GVfgRmdlRKWHcl zeiB5 3GVuo3WO8/c2BduozAt1qoFnZePKK9eOF0V9HdlLeMKIk1U3/kDe6oGB0yk2sPVIXeIShT7IR0oysQDN fTPGS +k1GL+egIdK2ksocvOCjEe+daNCSpWbY8Rqu6Z0/wmvDK/7j0fmpGWP1IbRWTKmocMRPt8fHtrK9BUjp ItB74 kCTYdSVBvcCyKeX4tN06FT/BYjgZweA+f5X8l/91L0OosmX8LarPnwWArk8C1u35TTPOKeGhLpMKJfzR ykdLW aD/ZZrpLdp3QBjS7f+KSLnHO5ZFpvtKlASZjO1lKGwi7ly1dayfx15niifUa2+O3y6u5OEBPCi5eNoek 5mds3 apDPal7qKYMqtHXj2Jat8xNZBJXZVsOWEPYEfPUPQWaQxRMZTOzpE2yIiQjYAlMREPamJi6vWxkJYtH0 US47o ye7Cq/X1Jmrx15l0+t9B/e+54qdlfna/FlpSdpXK9nz8DoO60m99/ShnyJhadrl0X0qD//jz/7Ysw33H Vd81e SW1xhy5gCynYvybd3YWaUQlupjFfc+fnmpk9Qh+K46a6UmnIU3ueu735pcv/aCK3zY72ozMfh/KlKz+/ ejT7o 75a012aU3UdgiuXJzxwzKEfAXwGtnmLYn5SrLQl6zklAmTDay/WevulAgftgaHqJYwxdrmXt9ApszswR bJLX5 nLfaX+36fPOFZWQNBkAXLO6VNcKzk7ELmF03FZpOJviaMFdsGwaWCNHv2ai9lNsHwR1SOIVHv5jiK9q4 iDSUs BZjuN4JoytZhv8WJy1MXxsZMSLdx1qBNAnwGL/CWwcIhYGGbLJWGJNRY1512kc7jRHEXXI2eNHbJXqv8 tOWVv rKLJf4aYgnspPR0ygxjMcfuMyUWiA7GBZWSGijgeLrF7OtEvVw2F/Klnx0fKVR8CyyYjjziyrT66O0WZ fsMdZ 8fj6Q2unBLItvY2FTqiFZVvzvQg6HB4px7tc6KOI8ICif9c9e812a4kyXnC6Q8upWuupLrkZ1ISPOOJo GvHlV MyhhT8C2aMTzxBpJlyXueujJkAZI67vGb586EO9kaZbAu0txVlWeDGfph6kjudvEvoDbsE+wnpNE9i7g HNIcq 98tENe25fcnEmZapgVoOJ6pazmhFNRFZJYmjwi2RXGsIbAs15PUtOvKT555iE3OMar8x/n3c9wbf04H/ Hf5k+ 7+Hm/Lduc5PzTwXaPWRA2dKVUK7+FP6i3tU8Aoo7afuiV233U+tPgeiFJ3OOJydqOIxaD0qxbFKwCJyt LK5i3 r6iiHz6+ksZPh8uXpk9Wc1qH9JSdL+PzKudsaWhvq6+wYsgSvBmWYjPSAjuGfVI/lLaTIYfPXK4/4CB+ SApxg g2CxlKW3YQHqwbQC65xZntCGlLwE4dPYx3KJ4g3UFuOwZndsk1w26h9rwkBLAdLyjm6zkMrf+v/7Bh09 t1W6W 2d+q2nRM3Xix2/K5LYdyhZVWqElj5/QMFBlfeKsa6dQM1LGLSXLAc0rV4xaOtxSCYJktgP09MILUaLob pAE+C l7Jn1Qc2l/r0udtx+u3vK0Rz//9bDV0u0DrZaBcpxbA2MzGuIdhLZ76DcquK4UvhoF4bu6aOm9fhF7tz 0tRXh PKDLQrD9kFXGQRnvX5i/UF30mofapiF1PAFTPNQUmbMwRorgDjrWzmeb02FYw2ZNZZbGNmI+/bwNxMmz S0U0n +CjMsnXxy01ohKJdqe6sD8ORDUHFGtwezawJTU/Pm9V1gOCYxKLJeE1NdJt4la6YQ05nPTNpYzXzvjzx sBwml TZ3y9/2QhIPxiLacW9Te4la/cBuf1CXmbReb1aqhFquw2zMcxh1Ba2G9QO3EPRhyhCBk0PwhEFa+z5/Q fJ0eN zORv082YjzDRyacWjTXbWdKO9DxbkfybB8anxUV3DJ7+6sGb2enRS1SrpplCAj2OQCcErc7o5JPcyBAz VtRXh WYBYJqm6nHDV/YcYWUB5YJsVFlyiZADqQNRPEvjnOn2WbEGFqG3NUMNh5XhHmg5rM/2cHxcGVkVX4VLO zgSAA hFK3BOHhiaVLutuByWtsBmkLgCqmIOEHMR8jMY4RGkU2AINgWoiw9BDNQZ4vZoqwGRR1/ILfDsqlYijG IsK19 NTENENIVZxDHCLDpz4shOlSmJqtGh6F2nTv5DGSHRo+KxiTOKeZTyUX2ppYPU0KaYE3AJMCvvtsgNq/I pHyTY WtQMXlCpR6CYHCDxB72HLBCIQAwKYaJwQDD8mhGdbNjfusTrFqgWGNZhMTShZcfIMEfoAsx4z3CvclFl bXBvb wRdtFT6Y1ZajD5oA3LfS5JbXqejRLZOL3IsT78iVILqhx2nEKyxGmt4y3YgzvColDZmqpKtmQX1L8Uxb G9ycy IbL7ZjxKEyqzNaGSJsAy8wFjjrbIKvN9FyYGBuVYQwk2OlH3axoXdmnXZuZfMjGJPeT1AbBEFgHdr4G8 5hbWU nPM9BjDT1eAShF1mpSVoqG4Y5gLWkAD3rjwCseO1YvII6rWH5FUM+WnL5vgCmhEbLiqkGG2nYwzXA87j lEkAJ wV7hcrTqOUPnAkDd6ILu0lNsAYStkAmo9D0jIetZNPDkrzlO27SyQbIgEUbzjCeZIWZWQbg3vRUbWbuB SWgqG igXoQoFiD+u71e1vtmNWw/h8GSxnPpmWbWA60b7wEhz7I6BWuQ/uplVUFnOgdLB6oCKV1QrdJZbsDStI DI1L4 LnJCAfBOuilBwwEDzCSfHFYNB9EsrzhiJuhPLlxfLq9QGEfrUltY7OXCv8xFHlNz39rnshzZaajynT0i 2ROsu qw4MLLcmLe1FD2UJ8/VDQcZ92CmGLfRdQJKQBTZBePA8aSSZn5jHvI8IsSwZYEGPhUATJjeVPY9ZKBrq HjiIs yxK3+Yr7AT2s/etHap2nRvLZ6ALVNcCzgLH9iWEKCjyNSSZ+LJcXY2XbE86YOGmgRVACWNoWfzXbZ48T PVIkA TgbfMAnzPyBuDNEJyiYSSJLGNIya02zGJTdEqRtXl9Pe7zKVSfRuNqPqAbPfGd+c0E9k0YhazqbbE2QJ ilvhC TXR4WM7aiXOggVJxL/TPUEhilRAmfgSQMNZZGkGShkMeopbcPSYRX5KYKXvJRlxqCuyvR2CS6GDCKNR6 jGqR9 pVG1WiEEVGPJPpNnlT0aEgOBJJCplIzoD1+cnmYyYQk2oNuOmzJIKmDnCk3ZiDSpXI0dbWtjHRYdN7bZ DDAaP 2hgUB9Lx6HOCcNsRLUcfccQ0EhYfVW68Jja8JZAz/hdr6WjCDeBsrknTYW9wyBbhPdUCXvuZ5YV6xfuY ZP8NH nFY14NbVoVOmcFrIvTi7FbygAnKLKRRWAG5U8HVjlfaTpWSp5OBMBNWQ0MhvXJA6gac4Oc0NWTAYx6UY apAA9 XCdIA1EDCL6fRQjQETqZrKDTxy7mmGbhIAo0saH8IhV3PnWrLuEPBRPBQz1rZzRAYQU1XFevrufn5Hjo y1OBU H4x2UJ1HtbqCAiKLY0Bbt2wWaAJ3fvNkbAFIby84C5XK884DHXLdpi5AkXZEdi1ASTVWpnroSCW7VE8w 0pnAI Up5batBVEM+RE8Ln7zF2iK93v0D/XBgcvOGsphQsmyhSLVNNNlv9ujQUZ0hMtS6ccHIhN5vDwpBS0v5B XQZ+F N8I/NTfFhK5xe/H5DnCBrf9MNKBE2KGPYVPs9krAwguT/GXzeXuz4Ml33IDiaxhejZnf1gVGKnY6ye3n GUyNy SupHIRL700SjJx+XAyFUqtmw4k1GIvnQKAEsFb2sYjW6FcEXfbCmr9TjkAVtAuyjK0oqzhZCRU9cc42w LSujs FXb9OuXMrm4bipwAd4oNTTJiETQfKmBHRYrIQGLuBnTDTzmITGmJQJapkX+95QQxUNHHrBotQgIErgKo YpsiV U8Ky/VTaUqTh+wObiT94XlMd8ya831bYmjIbK3434gtlyQYl06rkmHWjlYU0Z8bHj2uJttauSMbiB7ES OIWct vZ8YXdvGWqL3SjRUO3cR0pSM64+trKlNxIjJck9qwBNZMd3xMwInm9HN7hgZzlKKtZC9ng2v1pi3yyFx KYGYV Zd5ni/Sqscj3M8n2AYxy98jp377IHKAFZhS2iAzHW9f0njoBMDNCYE2Wtn42EUf/1hO74kDeJ2mb6/AD 65t6u 2smE19YO+P/VqzWuQnDd+PgdvwUoQs1CZ37/hZg2I21ynazNF4nh2Cz2kMtqYSz/HhurQ9lGDE5NiD2y E7MCq jHCAff26/ZW0tLT+s6wCOSiZTDi13od8vnUqtKDYrmefCOtlaKiLPrQKUOgKAN1iNnrxyGDZP5OLsEGT p7v3/ AdnlB4dY3Z3tuzLPA9+dXQFiSlP7wev/MOdPCZFP9RcDuxF+KL9KHoDtTJRvG0UNpFg/yAtzY8fMHPep hACzh PGdk7pI/Zff+H5l3bQBHhx2jkLhbo4+USsn029t453NEgU6hE1sqF718SSIEDGPP7yxt6F3IlxO3cmb2 1O2ea XJ26h5t2bTBgBlQ8qX2s8uXMSl1KI0/zamlmhfISiXsdXicF66ofsb9T8lr+rc/2GahoyhVuIYCArFWt paX2d dGe+gmaamYcf/f6WF53bgjeVPe8b+ZrP753/TJ1OhlwCpjuCFiDfdPf0JpOvPLOPffeDPpydN0gT+u1w 2t8+2 LT4zhoN0tVkAEmghhT0N5y9Pw3b0UXo6xoqDiJq0UpC6wtkpcqNkTxi0M+emQHJWdOeNGnSuXPnRFztR rFFYp zrOlRLS+mo9rd791TeXg196XtnTrRhf0dmB7m0rpi7gSf4ehVviuGCUbgf2BXl7clQVjU2hsme5cnBFV 3HJS7 sbe/eVC/2KcmewDFI5bVHVoSh+7l988q9PYCUmg71+u0LS5ZkHdV90086TI2BYdmoQQfIQj45l2/0QW9 Z8RzA J2nyps7eXdf8zt9+9PvmN+TIrYLhSjpbzUawQI4eCXjSlbdFuFGXIYk9zb+4avWCRsAi7IUdUtbjY0Es JCLoA mUuwsyw0lPGBu09v51DykqGSvoNcJO033AxbSF69yArrsSAzRWsbgS5l8vjBwcnBKp6h7cb233gRTmL1 QGIew 09g1ceAtz2/BeM9xnOPA25xRkyrqHcInNND+Yg2SlsMjdTbXplfZqmTOY+Im292T+ybuP2bktnn93wl2 awMJL jgm2Irt2vCwGTvIizsJz9HLLXSUPxQaHGa7zttl+kLaGjLOSH114yF8AnizEXpArpAr68GL7rmh7x1kL zs7Oq ydytop01muH5VEar7Ms6+lEXKZRobJiyzktY3LGwoda2Jm/UfeIZSohR6yNAoAsOXTKI/aIMnINiSVzH T/Qtf Rjwa1DM2N7Yx5ozOcu/9+xWB9324ujHtaCjqWgINAQ0fdjjwmrt1f3G4CARNdhbs/bTTxa+VHb+ypXC+ cUOk6 yzoLSk5+N9xH8BRGMv8T//yhNoVtv7K8bcSf3AMkqtkHJZmCYFxXvaMM54qCtKnCHgOwtrNllc+PL4yV OLliz j5upuycmbYwUrTU+nmTseHAW4VHVvr33tXN4t/5Y3sJr2vi3o1Y66r7k6m2CWHPFezNIEa2j7+z8uFpc suXnr MsGd8wFv/YzHB6K7olIGIe4ks5TFjga/Z2/Wm9qeIPrkX8sAeap1p36itfm4T82NaJsDGJgpu2x4SyWS BefO/ F3ndgp4KFnuk6Ghd2qkFN7vzRY2iTvLs++UWlr/Fg3ls8g5tqw+3B4PzOAsQxoQamT66RO+Uh+JimMzZ hzjpI WjOVZQCsM6AMxzbYf+ZPdXOpDcgbDcRH0NAYRtfAMeX1rDQWboszRMYocm68u7cU+ra5+z5je6qAww/H DO/Gf NCoba7x05R+s/v2U9//HC2waHxHc9hTkHPEZsa3Ib4aLeM4571bhwPtBbHpimIvW3+RIZKhRDBX0ITB6 AtnMz F3p6tN083dLIVwiG5igy08MCylDz44Z2HAgENDlMuht4LXYxjUpuOYo5V9/Phg0CYChxmCmZ040BuxEq 2jRzL FUDKrE23ryYTXC5DDCkMbZtTc7fwynzFKKzmx78/i0g7WwJ78w4cic9icoxZQVH8QPcl8CxpzuI0UT9k X78BO HBcB62biaE2HzgbzA0K2tbHYOKTveJn8IUOJf1iWVc5kz5tYYzsAUTO+MFrz//7ZfflCbyAo0vqyrerx Z5Kzo jKSYcIsBTDZ5Gm5yPpfIT7oTLGSQdSVWGAif2kv/3YLxgb1XwjMEWtx28/KL/o8qUPI3gQK+6QYAx+6g 2d+ri +erD+4GPIKj8FxrRU4leb3bK3dalJSsQhyEcef2gpbK6Ok04udQWWFpBRts8zM/PkBLsGY8d6tIuwbAc fZYvW /XO7OLEnvTpkvmoxL+j5+YurJyHP3aL6/MZuFx5aUXRuepnK//86KU2fUtcbp575Vh9P1aoy2+7j6+6B rJuMM Q5xUwEX6qW++7tLT+7NAuWs5xSRn1dPzxrumPJqwbZOrXP2LOHraNGMj20R5nIViYyo5/M2Vuqz7ML+3 6/fJm a0Yhg2i5b72A53kZVKK3TOiynKB81+uf9yl9Jzr///WqiDYHcgypIvxoM7UIYNfNrjUCjliKOdbIdE0/ duoWn rr1aNW/88UcNm6ZgP+PPFDoItdDrlF8OWab8soc5q/AxxpXQq5d/+muQrt144hnD2yk3XNP9rEtBqwjc PvfDy WGLvs17c/0gv6kOP0j+rbivtTgmxqgOmw0kEHJXuKbk1NfNgDGH71gqkHG//JAFUd8O1VKDE9MeBZW/P DOm8U wswPBkhaO0tZoLLbFBicPlQuGHz3IoYCOmKYGq8hTnfra25khHUof+0bra7Zy1n4rJDdFTIzG66apmGm 728uD sAS3bUSaBO4zojCZlbRY69Cd0z1zT9bvsMHGkjFBSbwUewAJ5/M1XrkWdejYvNuXcnXuKbNEDibAiMPr +Wjkv NfWJ4pppSeg/21jnMTCfUFrWfND4+8kfvEFRJqekYLiibi7UY8o+EHwcdK9K9elca8bSAt83va5hINnQ C4jDf aHB5sDartYInq/ZRG4w30bpQ/toQwMz9mdBizbMFxwsSg3PDH1OAGAkVtV0x/ogxZuvN2pCSBlOmxu9a 2PHjt cK9khtVoCm5PeIWpAaeypvWCuN8oL+cNPPoicVz5h+g0HQog9ysoMYF3BXuCdChOL75oNW1HrcAdghMv 3dGR0 m2wA1Nf1s5LtLTnZaBIE2bIqkYcDkyBYmoZzTw0BOZ0epgIF0gJHDobib7cJoi71Ow7LCSCTL99odzhk 3ZqYM ql+Jjn4gNo8ce9xn/jzSSSmc9+Vq2KLYhSKX613SGX+RA1/LZx/PiGlhxJOI3QEZ41s1ULMLbCQD/nursing home hYqgR 4BB+4tizG87zLLjGNxuNgZbP284dvUpostPFhpeOtVJ8o6gXeSOE7s4JTgyGMi/SlBkjH+58tWsOVHBm UN5R9 BEDvpnbjsWmMamBk7v+dZgspXAZWY1nuInnuRLaUwo6hk/1z5lW0sgFd1O8bvNS5qqdtrpHYz3vANIEG NGlyt lIQ6QdgB0RtYpXPRS6dMzRBTzsarNyVYuJfv1Q/Hz0NNkVy+er+pv48qGNjitAQMkp9vGxuphUuUB75u Pb2lp wa+HAb0FyhBLPsgNEavXrjk2D/sM+vGbyzrZ52uR1pDU00wiC/comnZ4zJl2LnYAVM2cMN9VuN9l7NNp PgUU2 C19Ow7Nb+zLhwpGHrs4NrZ6s4kz/wYEjsJYUHMwBTxg0XujodfZdx787NkYInqoDyeFNuJvAZu2FydM7 DJuRh SZAYsR7fFVu6povnnvTY1JmO1948JRSu1HZZlK6P9HG9hj1uBM76ZPR6SvvuSZqjxg6R+FmZU2p9ANTf X9muo 6OyJvD82kJ9Z1a9OZU41/FMEa9zE18apyroHTKrWD47FMov196+91wcQYjsUsn+n6tkbkN0LsjbD/per SncaG 14f+/X3nR0GPaeoG15vTii25qSYOKM69I6fDkKcQP70yZoN6rv7XLsKLxRz3NFb2qkR31aYZXQ0Uw/PA l9cf2 zovQRDx1Xofte41q96p6zR21YZv2Yjlik6rDqBLWlQek38Ii820Ix74krmY0bUuCiL+Qnay2+0hISEUR YWHhw cnc3Jy+kkizrVBnTSDuIW9AnoXG42GNby2qeR91pRfctsKnQOXEd9euloM5tG3eIRPgF6mdTjR+t8c0A 83oTp 3GvBK/4LsbFwMsoSEVmo/nnskjzOAN+GK/NRfL2RCo1NB6X7qeTJa44Q4uNuQveYL3CN6TRY76YcFdbU z9rys 3X5YhgpX3G0tb6DSeRibpv5KoQlMB50wTf6KXtumpkRY9oOCq9j354O8K8X2KydnqOvNvoRKU6ElR5ua QFM1u i5rQ8Qqdi7t5Kho8ZHEtk8ITZ2AB5ElQIjR6iVYD11VUrciEE/wgsYKmFgwEt/5/ey20Y4xkfHdivMEH bqCg6 A3n54j9cQgrWuQfXobO/vJYjiWwDGE4cnZyRUh3KBgS8vImEAoQQzt3l1zV0zvxuAQGJkLvrJS1MeZ6w atchs GpqBH1xbYJsjmos6pAjetTFArKWG5Vp2VBdSSzdaSL+/Lqh2dZUlYQDOE370G0g/tAMBQxsNBM1N1/Jt PZ5Cv XHTLXjT4Xq1q4xjCAAICteVIaNEHcWjzpAtZiPQDnFwzO0nNvhZ22KyPFuPE1/aVdZSR2z63DkmirFJD CGiGZ sUZPliVDGrsS5CGShHxGAv6bvXWvNmiYQSaUW9QVxBtQmA+iD72eLdVuBJ59r4MoFaZJYiHPEY+V3c66 WQyjo TFEnTr7utHOFuyHZvqvXfEK3jzfvGtVWKdjFSjaXMxonFbQ4KIesGoxaqB6VKps18yl+2bmw76nWpO3+ 87p6p TiI0kGNifk/jzz+lzzn0d+T80zfIEyUP8BTyShLd+OWFJI6IpZjqacoCeL7fTkBLt+st+AE5fxn5oU4H 0OiB+ Zl0PP8G2xyQT+ibCZrzAhpSRDp2au6TiuKgOUiQxfopOTLMfahT6xlIT70p0SD+hd+/dl31ENupHNzII NOyiL Dyd08Bihsj1lRMnj7kTWbtWYMRIRPSJMyz6k6NwX+pCEDuBJC1c7Pt9YXyX7V3vD490dPKR5+PIMKQK8 rAfU7 abJGRkw6Wx4Zue5jpqjrB5Z5/ZQ2FnHHoapl+UZ2NhS88OFbstkB8MgMAQqCuSSmL0M/SdtctLhri5JS iTJwF 4Kc5ccwLniEjka8XKGLJLDfuZhsz6FxmMSV5IFlFpyKv7mzAEXipdYkhBDf6uz5SdaFeJMGBBcSjGo3Y Ky5lQ SbXaA5XSjQS+jlyZG0VUDX/P9FEKPoBEHDbbeh2iXIBkHtmpwPMYma7cYEA9YXdCRDqJCzNVa4iKRx+j iDzO8 1Jb8f8vyUu0Hp/chKDfTKFctIDUFWkl57HfVyo55iq6O2YaC3KW1qvu4liZLoZFV114I0QPJIWQsd4zX 7FByb zcJU3hcTtvAGa7Ps7d2Ciqrcy++rBLgJVaidlr6ecWCLbJMs0YWeXStaaLGLxXk76lHmoVxKKa2vuJ5l Gi2VQ Sgg+CxmNUpVPgpvaMGFmPqcWv0mwuMNVAvdN50OuPkUOqzdSzbiOH6cYo6930L2Pmt3Iv1TnpCIfGixC VqnMC ZmRzTIPimfZo2RuqxAmRIHy9230NUh4eTviRfCYDQeVL62uyPT7rBNBz+Ee0KYdaVR0KfA87PB/pBahx UzHKz L5MZl+cN6nBHW2y1PK6g/f+OP4qZkaqqSWvbo6XoGvk7qc429r9XG5ZR1GFZB9YKDvwyAeYoo752aeCy 1Dqou Fj3DGP1FYYhB6Zwle06gXDzxkkKcwggWD6B1twbK7rFfG18U/9+Ke63YJpdiqZJNfMOpdx3/hVZQYpaS 4dtqt 3hkVKHXGiCNECRDfuMTfmNYGZDoidDd9yMhqcl+/ej9ypR+Z9cDqYm/cutylrP14zZ46WLtWZNkVKnhi GKYyX gD3zarX7PFdTS1MzEc6+PhIMJ2XXRnMM1NZyz+feAVnz9nzRMNd5Q/Ga7ndNuMIvxTL/EiwxUKY7OJtt HBQkN WDYlz/6muxLUQKu8pmuv+ggYYjZcmKHfriRdgI3KFe+SHWnRYV7iqkDgdKwVylFdytbQ+c+EKY3vXSq0 FscOm gOTTrQF0J8PepN7l9n+yB4hJNOOjYD7wmuIXOsMPmgq1gRxglmYLCLyT2yfEniiYNsPG+LcY4oFEv+p5 iJGTN 4NG86xroQTEdtz+/mblrSL09zQ/Rz85HLIIDWPDIufkeVmc6383+XYSbubHX5lCFeNFM7SC/o8WHG/Pc j0of9 Jr1mFys80+6sE7I4KW2gqIiU0nwLFGgFEIPOOqMTyNqcYzjsYWAxcmoimhR0Ch5Yd+Au8e7d+8E6JAOX Oqnx2 JljnxEqexC1zhVKGYSHj0NizqD2UTeznIk56DibPcPoBuPDl2Q8OzCivnYfsdbvcI5EZ0XGZo5fmRt/Z r1URi r7UN4z0R0+GMsfwnblcTd7cQNfyvrkeVfwO8nTHVxhnCLreQceebftSEsWN/ySF9QLWZImPQCglJ8/7Z to34Z uG2h+BMQdWQQhuVHKOhtz2ysaXGGBrHw5aX7gOV2OrQfHz2dixjv0zlMgGKBb94Ksc8ncHVNDJEFOGrA 7ViY9 YrWIsx1SAuV8Gp85XGmrqOIsvhodXyR8kpsClU7YI7D99XqM9qUzhCjKz5LyF/42icylqn88Q/WpQRLr LsID/ L89wgjPEOi4PCQCTcwhu6Pz+6fV65AoMdFm4GQRaqLu5Cp/eO1sLVoEQJmqLV02Pag+mxCAmVnM3ekya BlYhU Oh9gWx8n7dHJdxd3Gd2mL66EwuklEIsKVFQcGrN9lPkUWcvVKooRP9gQySSqSPrGOzndbEpK9C5pa09R 67xD9 rTpFeXhz5cUO8dfsO04bI7NtVngvglPQMoATbVq8YlRxPtlZKji2MMUPHhmJL/PnmE9IRw9hgezxp6q4 XHIey PpIDxHvo1/UK5t8mWgOxhnhAwyWUqOkX6KHJREMqFfKUFjtpwcqAANGyfRangXDopPGxKMcFw2mmmTo4 eHl5T YVsIbM/MeEnarsQnzeF7fd34W5RI7IUXpCxLRoRqYBEDY5TYJr+4PXD8I6UNDsSEQmdr1q6oH1cmOvGK lSViU HvMFAYSAuQ+hq4eRV42Xoi3wTnFJGUiyjRtFgK84i8EjK74YmKCXACny66g5djVJsmYuPu1lxDUqHn/y BfSfn 99XOvVirXX/nSb+YW//LmO4512sJp5kQ7Udc+ydcbT9t++rwXh9jXUi+ost60yiE9dY7hrm16YFn9wfM 1tLi5 EG9FlKE/qod9dI061wzkW7eOztOm0ApVj4KznJkp1vwMxicA4uBWftRxFzEsJYbXnK2/JoITwttd7X6s 25q/s Pe4gqz5nC1Pa8/aoCdxb4z6I1R0I/C85pUiVc1vcWax0Hbr37ohC326+ngcH1zlXXc7+9Knp0Thm4rco 3J8c2 financial planner+G76tiO1nWRusOpIFa6dGY5q2Mj3tQkdMCdm0BBoMm9YpsmnFpQdNmNpFMe6BT2ltOGjQ7w6sdEh/ 9kZv5 XX760+oYRz13123ifJh6+0cRum9GZWyKaigjACKnG8YfrNACOLtDDcngO1YAT9BTEBe5D0G4j/nLz3WO fwM09 1OeApBgwksm1xJnwUlL5gPVh25MrfLm1nQ7E/IS2WyzLw81n1z7Aezj0oOomHnPy3e362NgK3k5448S1 rM5IN H5XO4RxyrlH6R79SwuNIUvc17NbTxn6cV/h/R3s3MQ/8oMU1T80IiS0C/7FhkT4ws/EVsOiz3g2YoyUr 4c6U+ W+V/ykSE4IdEpzTns/0ddaE/8htI5xRcQnN0oh5P2BjtdaLded8Q54/vzZdQQh/s1+xhiTmeDyRS8MAM SRhYw s2zIIS/IEVFhwUOfIcIG57vqnLPWbbM+7XqtHvLm6+slSsCyGbGzyjvduzcovrGMtg9hj1d7WAYOAWoD oTp3I zC+nbswkvnUfT93I7JGEXdj8Hg+nm79tL2ckm1vS22ONalATV2/++eOfyPVOBi9+L0Xg3zYZjTMjwdte zcNsH 3S58EH9J2OF+/ci3qZYy6HRmDwBAm/7V/T0yvDtL4W/7GSQ6aT7Xyt8ncxRr5YQ1g7yaIlHvWu88pquZ +r/4M tFyk9DPxi8lWmuhglSR/gmmZmZ3+TMtRM/10cBkj41IfVy+eri7+9/OfmOgqNcF8v2KABNSdrh1h/PS5 KtpDF KsOy3T/rU+tXqC2EUvZbswpXZUKgG+h7GHNVGAXFQVFWSyqzwQfi1EU177jvkrjaz/pg5msy7pU8aAva 8FU69 4GnsTeDTxN0z+Rl4BXMU7dZsgn8AWOBv8JlpFFLKbNv3Xj1RKAQkxu/TXyBOxB0yUecTTDX6Xt5vBeCJ gLbIV +OkUNMNIouFiLEYMXnlI8NaUFDVL+Au6cXZQCkLbEV+TdEUvXFhtWuTZYVb1aO0LxCQkOP+Zq9PNVD4h FfkKw CY7Ul2bceQYNCiEb+RrwAAQFvkK/XTIPGuu3xJrvLWCV1Ry2vVHUIbEgJX+XdAZQNYnsVnQKGPaaxR7L sAANA W+Rc5JXUQ4rMsgo6DMCQa7OeiVRRRuZx1Oi2MBBHaas/SSsNQfP3vZceXHJV6Jd5iJsZYnEzBF+QrAAD QFvmK yPBHAOdgN6PgDSPQN+Rx0eXCWQmElQP+TcAVvQCfeJmGRCPa0mU3JfQZzAS+Ga3BBFZ5fBmcIsDL7Vi4 inwFA ADaIl+RrwAAQFvkK/MBPDOmm7aPhkASKU4Dy3jJSGLbQcCB+HcWSPNVkmKpDQVYzcjZ9DkXBGXJ+Yp8B QAA2i Dsxj1FPWRf0TzfJDHFtZp8Tq3NUJFxqk/JGaZAwS2yHoxLXUK5Wi3bKiSHdJtNO+QrAADQFvmKfAUAAN oiX5G vAABAW+Dp1tOBXOyVyND+AgAAbf2/8ZgiuHLcopP8AjPGbz/+XCmMIaWLE54O12UK6q3RjM9ETkRqcGi qKu/V DxxeBqmNqp8/+oRmPRoc4NQnJW/XZ3ek5DUtS1rx5f8R7IqelWrcy/aLx5W/9snTL/i+xdaOlJfxzpFY zqmXu /Hw34u11oCXlk6OsO/nNfQ+NdY2JS+bo5XhdsY28iITu5J+vYi5BLS7RK51nhIIAXWwLj7gwrd//MH74 jRbTp Wl15ujKDAdjUd5yPb4iSTYlmMFnrQjXkt9R1TmAxh30lwD5Bx5dEVtoT8kY17+3Ara2uMrpeCfhxZId/ Wtlr+ DsA7dhtz8aM+xbs59m9hJq2tvKbmxwYkFltkvhVQgZeZ8HT80ThsoJyv9ii235H12kLyvYb/10NNHhiC jPcIM uyG9TqG13Yigqm7N9bV5q0WUh+vNgUFdIZ3x3Fo+LXlYv/Ra5/CoapLmR3vWuiKhEyy+mql2UzlIcnzU 7WwWv aCfdb/MsxeuQQZunnMZ9XLtnFLNm6/4VBsXQUtuNxFch4yOroA7wGArTQkh7/KnKx763fjl/05GZ1/GM XTmMl 69PHUG/vZu1zW8fB/t5dBB0pVjpRu1D0863QVA0w03KW++0OyZI9kCchYCQtko3Lt6M5bgFNU0Nj8wQl nZxun X/PRFMZil8vz2o9rQb486CAW6aBwiU1peAdhErau8MQ71smoiG7OLlgISvN36O53qwSzOOul9af1B5gT yq99K oztt35jL7Yf+yMK7KftmUKS7w5xPhyUH69M+SOtvq3nvbwLto2Ep+++zkcQ7LSewvX3+Gu0EuLZ43soM v/yN9 ZsVW2XNV0ucvlmBQw4kLdcBlp/lWf+n6l8J4lkAa1D9MCGlEViSieQeI9W/bQO3YbBx4aL1rEMDbZ4KG 7KxMs tbKw32V4E3Na4r1ncrbEWyi2vwK2/Wmw78yrG0ONj7oXAtq5wvShC7F+ih6E6/5XsRL8R5UjFLt8Kwp3 plDXL RHE9i0Ir2st2QMHtYMhuHuo/74yl36kPSiUg2YzebY2HfrHLS5/V/KB3Td+e75UepeKL6Bi/g82AEcfk TFai1 rSLl7vBNWK1Dg4Msh9I89OqFKqpvaJXcyjiv+s3k+8brCmWajCYnFv0vIl/fM0E1aW3bTrQjDmq1YsYp 89Xsp hNY2rqQjDIof3/12ibi1WqdI7waLsHgsIhzXtyDVui1LzqjmpeF+gKsxuVvxiP6thn3ocPnHD8x+5Kvy gPPAl b+lvX6+tvfws9axi3pq4w54uR9xXp3IZWm+BzHkPv5Op6TxIaFwm/QMmcBpWvFl0G+mjsx6u0xXT20jJ wPMef gXws2NrvrY06s2aAYox0+0P5mTCt0uxRIAI5PfZqSJ8yEoaDrUg/C8G8PEnR9Nnz0h+abCxdC7Ae5hzo ehbgr MqW66ag9w+9Irx6SGjtusUkNwPR203Y/seEwvE6QY0i8p0RODth8mhpM0II/Ym9DKga/+UMWWA5WgOGI mPmYV dqg2h5OXo2iVL1Q4j9PYeARD5kJ54W+3ua66Ks3ltkRuZ4NeLOm/X2v8Z1e56osrIqnsHl/WEt/JWlf9 qQ1q5 FbTkh54McsUn+dLZ/Ph+fN4fh0+vPob68m49Phedz6bd28NQmIiit0l7coAZgtNw5OPfsriPgXJvdmW5 Qv30C rTzkA4nO9F/0tP9gezHi5MfiFgAL3i6Rpv1r+6Wb8fnS+w7S1Cln0dlNwjn++2qw0b4orTsP1Xgaga4w x1/L4 +i8//KdZl7kDSbI1uXfA5a9yUNwlrlrK+qlcPZKbx/L111/87FO5/hxxPvj8RdcMhUycQ0go2HYQI1vc X86ih wVv8jJqWGl/75Kl0kP5Hyiw2KQoZBIJ2xzcQq885flOI5zzqvQLp8Z/PJObW+kiDc0fhShwA8OuCzczh J3Mu1 Mv+Dph2madobwKT9aXDnW4QBrWetVp0G2cpFm9tijf7n94+hApD8x1/t1iUsI0lq8rH5pd08Q8WbXra5 KZ25J +0a+CY8vjlS/54dlHwIX519/hr8jpNXdVsu+6gCZMHf7BUwbkxWDqPwaP6SFba7mWDkDOvKfTHpV7D6E Q8oAA YJ9AWOnErX9oZkkjDsEkh0ZiLgW7IWLSuMWTY0tXCzT5zNsdwoUqcO028+xOGywIRiQRyPWdNKJFf6zC zBlL6 zu/tff+5bBXiO19dLgOfKxPZMVCgRxcP3eKQBDn1J8G99wnqDjSuUZ3rZmKZ5ZW0yvRJDnPqcs9rVRbn na+Mv WyzePFw0tbBC11marol5/+7Hz7l3/fc2Au+zfztk7ukG0m3MlvZLD8ajH5o7hZT4hyvurm2HHIlQsnNh XOJuL X4/EbR+DwUAOL0GjBr39VI/G9gnRbRnd24g+c+LXP0t8AZyahHCb1npt+/5UJeu2SUK/rcYLS/VbHwb8 c6nr7 983zATBGXk8Tp+GemkNBtp47xhVJgbE2MjCF4pW8kfnCoVeV9unj0pgd8zkjTqgAiYd+5GRf7+UkE7zc E7s23 V3jknvezMKYER/6bU/Y3G8033SdiVift266Ndlq0povScnZG6UdUm08arPwyGu56F018BKcx63f6vngJ 3GcTc MRQ07xMjJvXlnXdsQ00HqhNl5INDP96Z28fKdsmzfA4u4Eg5I3aUoJeev9/i2MoUIsz3aGHYPfxlsp27 52Hvz 07DDHi59SoG5TyMbVLjs79HgMIaFchyy0uOcIx1bkrLjQq2570lp9YJhWGC3NjIZdgp6IxmDxfWWucxN RyCO7 wnW1uUfBF93000g2WgmmmcCyjLLOB9sDQpjGrFBtkDcMzQSvKtxiKRMxHkqupKFOPnWyWpfUMY6jRW7k V3D3I e6k/8vWth234CoLltt0EB0g9eroFzcPV/cvUAf7T5H0bY+XxBhrjZNOGFRxT79WAgnYyM+zoMB1XtgSd WM9z4 fNjTzfU4+sG3yvcvvJIcpjW6Ay0jX+zD/Ojd0Pwz2iOTR9NhmMAbVdDPrITmk+zyn1r5Y8zunu3bbIfx I2JCa TGk2Zz4D6dZzXmzuiMUbGiHcDOHlLJ9/6x+4EFqEAw2aXRIqfLB/BKiFbwPsf/CNrOGDuSSpDMauGj1F hi1KB /o4j1w4SGVDsE6bjtxoYYWFsCYN6iI4Ym6u3mtdGOBTghzXfadcroTGkFzP66C12DESakUryqzKmaUSO O+Xp4 kbx+OshnDaNyNRWmRW5WkGuGMcFoF2dVq22b3ES6RQVwMTlBj0j80lZuH052Xd8TZTQJeZCmPfWlzOiF 0TX2T sKpIdnkOQ4PZ7ldSBYVdT2CEINAe3pZe12v2nEX0byqBAzZ83e7jVoYh5XrBo9d9F1/EIMbEMMReUtXi 1e4R8 HWRhhZkUPkcM3tNxODh8JYE0boqwNioYFXMNiGU1HwagWhkdV8Z7JrPEGskiTYoc5Qpybn/kjm0hqk99 6Qn6z Y1UwHrnMW9ADHESLwudi98Qppf2hueFaVpF0tz/n68KxDiCJOr5eUaRgF0jISdlfV9rD4zbsfeD/QMOH 5vL/N SalmWsIjMRe3IYRkHDwyQwfkeqY1/Zk+ds/60qPWT6pjpNMk5fwcLH3JygukDTPx5RkGmFbC47YROSwX r3sPf prF4tcZWQmpUA22PrJvJdgzdajutVjmiRcby1rh5gKW6Dw/Mt102BGuNLk/vzff6NRUfQcMArbtW67ep jLkeb j3J8caOYiDDyP+CNnK7ITjSMsJOa+aGxpEYzHnbRQ1IadYz9tWqOlxeaVC9SwvjSz+clRngX2kRRC10y X2N22 xWd382Bt0XyAVT9rBlLbUqJ52M8OyE9sHHll2dX29Siy5VMlTnB/LfRdoYfr8vUd7dZeiLq2ggPeQO8I hZVfH baQQrCnn4deTMnGxlFqjWTPBMh5qy/VAfWfPjSQZ1Q3jv02lnVjVEZW2VGnGVs2eQKWOTtun60uHHLjJ Weafh 7WQxqBtYMkuWBbuW0Ebq9MPrKUw/ixIWKRdhQb1Ql5fWH7IGwougrboONCyy9oPoUi8aLRlegNc0+DUU Z2GWu QgetkUIqwUclE4BPXMqzxUZ9crp8HYIKix0H1QJuTUj4RxEXgSyf1wzPINDCUqf0JWYgC/JKYjMF+LWI VzVDP MBm2wLPg9kmtCPVqBTTpoujjOSQ2KWuLHFbYvxuM2vHBcBfr/afOEf5QPaWiPyYTm05XUDVw8tGaS/B1 IboRL 6TlKghgdL0zkmW3mCXWxaGocAUGPIktqHM/X6FluhgTFCvFirWxUaRmEHaAhYbwHjgwxkRhgA7FdxIzZ NYlle DF1ZC51KKzV6xefdPNuHdSz9emfqnZzsUmt0cqTJRzSPboLl6tub0ZPxtmCk8sZ9a6ilB5lPXisTYFu6 YNmgJ Vickie+kI9gYmqI+YaqZFI8YlI72uicwfSV/qKMQ1UTp3qFE++LisWPZ4jIBeNW1iIZqkGLqCWQA1DTD8TDt TDjI7 GfAX7GQ/VcvcHLUMRwJgN0rzJD0KE5m5+JHxXvRTHyGRbpFQnVx14B43fQZQjex0WLtNCseU5Lz8F03d +T9Eg LeoiTF7RBFgGWXe+1rXT6oVpELTjW+0BGYnCbVhat43RopmliLFg+wYO7eWLl6wzeyKEZpISDCmUXCE/ NS6jp qzLE0jGn0qo4mWoxZ7K5+hDzMR5skRXj9R48Xp4BHuEvIsSDKEDenQXYMinQPrA5CCy5pSlwYoRY06Bv DdFFv 7gq3DRBW8hmzQ8InaPYGqcjD55lUGxNSNf3anWrD0UoIKGq11bo4TT8wdeJfgmPRhw/kQiUvVsKmOnXw Jiswf r80uCbF+Tc1JE96gk14qJ1buT1obHeqRwf62dJ93HQJysauGv0M5zTXP7iDaF6TxtNSfi2d36JI52BnG MViRL 787QhRgCe01afst+uVKd5iQnJX028CvsOCjLlVSuZvqku+cGjcwFlFbeqOpckjG6bTp7ke6R/A8V5hV5 dDx0c xtj5404wyskf7q8fLzmHswuhF9hhe/1LssiWEkYWaHcmYBieqe7cavoXYyEttdeNauxrgsyWvDP6rPtS rVChQ TGMH1ceCMqo+19arsp6NVNHkCYsSq/+CfPDHPNKwghAeUWV18b6GYjVbC4+yf02LLG4i+IsEAU5PIflg 5ib7V MTb0oOziViK2PSr/krAO0xKGuiEiEhKqk/C8bXMoHdsT5+8zOxZ2Pc+b/bKNsaMq4/uzF3KLPnALLz6O 8Zsvr GXFDZAJtiEw4VJZwA2CvH4zxvHcJhdXvQkUDvoglg+ORFMMY6tzryeJwdg1HoLadMINcejGPzrjv2vuz bl3Xs /IbJ02yxg3996sJ1ZL7886dx7ib85bv2/ZOfM/d+O9cIy4i/vfx9TaXkhsl152TREzjbk0/ZX5bmoZ38 a7qKC 1YN3Rj70j9xPZggkLtS6YogtXmWp5HckbHMRkbBv3Yo08vAFFnZPJrDg/15SgNKDrpCUXuiBDqTsQV4t EP7yY D4v7Dy+9jO9WyQCtfNYUxSdixDKdFLsdv3CD1oiCm647VF+5BsC7ks1bZyokQpgD3wFeT+rH/ls82mIQ vce6+ 1JSjxM+l/uUzjhQsJlijvvB7DHEQs3BGjV/HptOL5se93Cqw5A3DbSAuwm0SYd0j9RTlaWIoH/zbr7+j thOzX b/5B0m1CPQQ00dm3b77HUg/qJ2FLp5/1JbL//9Iqu139apMuxyV3+JwnZuJqxzMO+Phq6PdETftCD/je vj0gW BeaU+FykszJYYT6/htKe7Mkg+dABG9nc6yLwu7jcT08hem5PX4bJN3cTqltW8sKsJk0p+sFdrvnc4ykS rII0r wbWplXckH7MezsGrVYg3LZQp6ZGM1xs0a97AdVGxgFFp2GUJ+jqhpKZzA4KsxM4WS5rx4gl1o/S1mfdu Yd5z3 T7V+syfBFtkSXWD2q/jHEGrazoKT6cKMw11PHDy6RfV/nr+l7eUawy0T3K5qz4R/wQR1F2R5Rx4SbA4Y RpH+2 C6Twv5aJ2Cr8o1VZ4agLvrXqngnY9e4A87nk9n2k13Jbg+i7xyq3N8yIiLCI902znqxZbvvLjTH9ghGJ hSlCa pWwkOJ5e3aNl7n8kk2H7s3kgF5zVumrQizgGgbAGp05DQpyVqA+dX+easU5TnDWQqrOjK75abI93SNPe DipVY G7rbGZiLBd5M63Va8rqVIzHvTTlrCNcYG6opywwvMI5l6VGwhKybRexadEGCkszkeNG0xvDTeoDA/mUB ubLao PPkWdJqntSqAudEytoSIH/hwE3MXEAGHgWA8b4XGZHvd0dQfkhQ4EOfioVkTUD3pdNRi9Qala2eqUhSR AiCII h+7tZ4WqYEqgvGaQwf/iNrVo1WATDJcASq5d26Xd3xdhPBbS7lBMgCckTf6MPKPj6LoRuawV8aHGQEMQ kwsDT 4+ciPjHQide/dI1HzT1cSS+d75ScP7MLpiFKiZX0DGVZFHJJroxo9FteIDh142Tp51onCocp2/Mh9P/n ZQ+Ov wsl8Q3SfcqUH0h3y/xNP/sRO2G0ij//T2D5dpYe9WOI20e9g/mZ0OjNGGvKy6Dclz24CnZnByTFHSdO0 r8ivC YWkRRRnAhxiWnzXXW3INUuQnQe5K+B3ewbTe1wsa57WIAs3qgG+9dob/1ir2WgN5IqNU5XWP5FsLMMnh rR3z+ kc18R28ATQck8p1fYoMED3CpwTLN0WybiWXCbV6D/E2VgiZrKPNmsUfQ4UQP3GXG/6nhvFY3y0kBMunL cNhyF IC/gl38gkeHNYG9Gzt3JyGhYnmBvGPcJcs6xpovsuymrT3+09HjyNiECoFgJQn0p5+BKYISIXKR0VUe4 lBWMh QIl+6O81rjAaTSpsveWymC+E7O2/j//adfuHd3752k0iaQZYfR2++rdvP459nc3DXlLWDrTGfI1/9GPX pYmbS OErpVfsnYMQje4pFLz9u4UVRdWEDCAI6j+mxi43zhU1JIVUS051JVVPWQ4fmQdINgc4ZblP6+mhZcs+G QTLvz h002x2+Lc7f/V2L94qElVdBSgEAQqh+dtTZzzx8pug98lVWp0/rSX597ttw7kmhypIAJlPKCx+ZQG/Yk WCinX o0L+3hXrWp0sQQrrXpg5CYeebg9APu+F3zlYiBEMle9uyySAkBHiX+rdX/orr1ddqZn131ge68I+7/vz gY4+n 3OkU+DCCYVTOEA8JFBdvQAPgKEbkplGlnv57MI4H+MOPfu/ue+6IWaoslBVkmUQTK/ksQLF+1zNEF5eu LSR5p UNvheFpOkb1zaGE/m7HvV+/e/vBXFzTasv9ExWuRLD4qvuYMFoFAPp+5nS/0jJAKHf4t524zN0dc08/3 tKBIP ekWIm9VWQldpL5LOsk7/z3SrKeix7AjiN8gxS9kpqnjUJQd9m9h/cztj7kyc0cnzRwBPAwbeEyLqEDQH RB9C8 DmYHEpADtwTVnlZWjZ8bRzY7kFsW5IFLvoz6BIVWnOm+gxNREjxIMZgix5s7IAjEpC3NbkEhrRwAG+RV BEARB XF7M7Z2rYruiVvN1LWr0GwEOqkxeEATwg8DAeRKFPmecV+OVAXQWZzTFmZu0Y6SCIdrlVGkQyHowOwuG ZNKSX jYLZZKU0c3m6XlrBv0CDbzo1BzQG08InJLN24SorBsOnCH6QzcZNXOb0InoYZZ20NsmCd12TaeUxyqz4 dCA/I ogCIIgiPeL/bizMFd0n61TCR8fg1UwKIZyNgQvCK2thbg8HzGkVA8tvok4FB9AuMEuSFMjR05ygI7hZD 50IDg xK87ps2THdEMtDCWtKGJgJYSzTEQmb9QySSPdyAL3GB0EvQDiFONoV82qmX1nIX70YGsjZ87rk5KbTHT vQ29s qK5isaO1OGD+Ea1GrEf4UCCmSktbaKFDALHvICHqOJMhZ0i9ATGrTL2FQX2xiOpiNHT9NSlmNkZnHK2V L1N1Y mQ6lIXrMP0pM3BsZFduGK9XM8PwVUH4S6znNRLeTMytWG6+o3WvOIRqYaeI4Sh6hARHGhmJV7rs6FQfW asoFE ihUZMQ+KNV80+w9ufqBHNh1gnCZGXkqfYu9JChqUEqe20eRAeqVUeYFOcUVnlfUEUiZT8qVeQWq6IaDG QgB/D 45spp5z0ri/Lfm9FTu22bScUp1b/74Rt5Ffd7H9HEcYT5FGWDrPcLToSmQWhEBGWOTgMHYPGT6VAxDXr Ep4Ix V5wI27bklJlG+tbllYZulUUW38+kuJTN1UNQIEt9VzTy2D8JglUHY3GN8GIYQYnaB6UifybU81CRBII3 5RlWt 1bfKIasHlvXD7c3yef6TkFFiymSQtwcNWi0Be4iBeIYWReLEyoFH2N5Kp6FZJoSizxJVDmlAdRNHUdB2 Eg8RQ gPRvesoTCyMBjDM09cCf7gw68FQBWohl+UeyrWWvjOhQTOwtTUJUAcxeUbTQQr8TUVliMfA5bjLBI36i Wr+Y9 PAEMcG+UEamXdLgUY5xsxO9HfZ9HRZ5YIp8F5Ukoo8kiGOdL9xmrTmsqN37KVRg4KrA7BCruSbzq5JgP WBGQN hFiSKqlkPCrSuVWEWQSFRT3zv4pYyXnZoTQr5iB7vACUOYOIJjHYDm1TkB8i+lr0YFDfy5WGToIqGiFO UQIOu 5db9bjWMLcvHDaoiWlfEJjYwSMx8wIwGKeIqtg9fcdEHkf/m4+bX3XBV2gGo5oUXGXOtkRzz/zACDAEr tIfBg BdTPOIjLWXbZHWY51y2tSLKCkaND1BxnoLmJxt9QSTIADabxTZPGjgEfdompMoTE3xY4xEOQBELp4IZA JMcAR oNLjImbq1VB6dmbCH4fKXGWfXfGqs1TGs045kzpGgHqXS6PrS56XshKCMynkpi0QQaJHOPkNKDmCb8ST djBMn yc6Z3qJY47WijVAHeFADIjsdwG3nHdCWeDf8A7ZcHPf+yb0LWLvDnlAYTVc5BYigZAMiMKPz5D3DmvYk kOUMf JycpKWpTWLAcSOGJ95v9H4l+8GoLLHnXe9qdrPDIibTRRAwaluavJc0WCDGcWTkv7BMi1LohAFqefMZD dcN0/ YR/L8WNsWGPvFvQyzYYQxQiebgW5zX3FPXbM6twdAlQNsgAlqfsFiviraDjdL18sGB9AxUWL2DsiYcxq QlrBg SMLChDnmFaZkaI3WEjyPHNo5DNjb4FBgD2RchnY4VmqT/EXI0Eg6rlR4JeRManXJxcn1wiTj8ht2ojt9 XqkGF 7Rl630wUjNHs+2Ikf3Oqlm3IQZAOFPOlPSapGJMQVLC1O7z+EyFJOwLQEN15tpEyjKY2ZwtWgPJIDqIC LD0bO Idoaro7Av9Sj0y5GRqzfe3oGpSmFuKKmYDwOVvIBvGl25jU4hRKXMvL2zJ6UsJwXGAxu/lDDRWZlBDh+ h64x7 WYJ7FPUH2JjiDcvNXueuyciyVrQwfqVNV6G5WQKmgKQRyg+Qj2ni768pPx0Dxx6kdM+eILT3S1FNbkq4 CVliy sFdMzXL0eWN4S2koJGT3MUir9slmy6nolxqeznFAci5BUGN311xzK9VReZ/dtif79S5L5zww4UVbPcCH R5RWa Ooy3ob0+vko9zLN5t++VajDFQX2CFSBfqaa3MB8UyqFlbWz7eR8mriMlWVA15pe+337VzjvuLYx8x2Vd dmPjZ k0rh3P/1NwnHM+G8zx9+tVUHCItUsY2Licp7DnvdfruLJAvaz0PvuAl0hKfg2KvKMe/aWI6o//ilZoiT RtRWj Kf9MjVALyzxIlSDlVPR9WoYldArR8Mr+xQREtK+LXWzfICRegCflWPpuaRVVN0TLkf2m9kdQblB3hWuf 0bRhB YBSY0RyKrY5sZBXf8a36jiydhrzZVkamP930s7XhzhwXkWikspwWzJIEHGOES/wE9KfO0Y+CTvvGQbjp ckJ+9 +EtBflHRcswffpLHTXTHtIPLRBpvFoon19uJQug8w70Hx3i3yotv/CWHkFN56fIUQ949z+48e+ahb3/L ZTRh5 Sn8NN0okRTHJlYefF0BahDxO/gSbw7jueaCPVnbx1v9sf/96KhcaL7urjRVricA7/MVL9xO0g6+9f4Hf Y/4iE oqMnHlSt/lJT9ycPuW1l3oWb1I2nSt7ZozE8TjBG/c2q+hUUd56fyzaVudjnXIEfVic32+9of5y9fTbk oOlPN qA4s3ngec+KPyp2cCQLibXM818WpHm4rlgN3FeKP6t40LOaerHowvZxyttY8y1KubNGZkbA7yWhLluaG xgQ9e 7bk0/bBe3yUuo5xoM3w9St2Ql0GczJ354Eha3ym2rZm2mhlAWJgaV6yDuQ6ufXcuhlAYE9sQVA3ec7ax 2tqEP OA0kis/Tata+Y7dp4v03gMPIs+DhaVc+vQHH+3tI2rL0ypU4afPdsb6q1b/2uPf8uaW18cqVxnOvr471B ydMGA 1t2omKmMVUuHA8xnnAsxDIfV6/H6+pLjd9AUFSzpVIU5/khsyO6uDb+LD8Wlb3r+19nou5SDOeRWJb+p nF81W 1aRUIhgZVR8o15/ESO72z6rUouoZpiOHzQ/0XYceZCMWG2R0123w0Iit0iL9fWKNxsXUhKd8/ppYzP7L m8Wi5 yEEmG1dHFWMhyEgFA0vZLtn7Loc9wpu9xoI8up/9rs30x50w1tolnyQmuJPqfVKRka2D/avp6tFagFxg mjXv8 jODOPfJgyKar4DZ//bveW4g2cVfWlZHZ03njqBojJydIdTURU/67I7eqzjCl/X+JA+aBUfRHRs9v5++N 0l0Bz ABvwowV/YY5uxXw6muQ4FsPQytTcxboz9te1ZrNew8QRylIX7dCQz2+45tGb6FZFYY5DcreYjrDaCx/D lzflB EjHKEpr5yJGPSrVCRbv18g/TTgK4q1DnoE+cvr3x+hWTSrZImM0iYyIdR/sC7ub6vrKeBLMZ5+7SmFcO 3SChc JwBKXL+DQaIVIRxy8BF9JP0lMDL7tCiIyxROfSUzXd56no1vs1QFfzeSQp995nFVEpkb9MN+dple8weE nl9rf 24hx66Lh7Rt/L6Or4vmSzGwrgsa7w9tfnD5P/bfbPhARUTnu39l/zGoTD5AEQ9H8lIgAcdvD74JJJwMQ dT3ue qbll/oDceJE+o5w630ZNqh18xUK809YqIMJENYT//49urnn/vn+TbW7ts722qGe3mZfWQUJ0Q1AHmRIi /vbdm 7Kl14juEEHajZpKJCor/9kce+Z1eQgFJs3h1fy4fOdtfQ6LAusuRBEDTKv145mfrmhxHLqBrh5Lo1YoH HF9CL FP6O8f7h4teWbQoUAZMRWNIVQJVYjksUhvXnPkkFWdrPHXDm8obc+acm50ZprM4+NH8Y/HG+cttv8626 O995z abhWlD4fDltyDOFbpM76h3cxt/t4XFfajG2tiYX6+owXc3t2cCExZfiGF8i4KmWU/AwuLwiif3moqRwA 5e5Xp 7Wono5dSGFQs+/LrNDEd7s/IlJpfJYQl4ruMXa4TBx6ih0GXBXRFYFICHM8nsHo5nuR2lEk86rrxikAc 506uT thYTwQZ4XSyi3VLh5cWtt8EUmzdqaIjGhZfFs6V9C68SHjbVJ87aiZaK70vkq/0QNIpmQG0orXIgvGvS fxK4k Dtfn806ey2nlwdO87Q36VaBb9/teF73e2iKTFYMrka8oUrf1JutomoyUVNzLp+arj0wWnFfeDIMwxmPt f3h3F uXy+JusAdE6AXV7f5Ns86z7Z6gOXfHTc9i9tfpcmTt4Qd5tc4DGK46030DUJbKbevH8q50rehAXoPWhH YAmyB xVXHgq+AMGZbzAH8jY5atslMcl2+iRHT0rYLED0yfh2kfLjpPWPbQh0p2xNB14SkqCYIX9TH4zQsw7xT HHgG7 9+b2vSDY3cxvomxIV0kIL3HAdlb5wDgS4TZP+dqF5roOAo+5G9PQoDXWzTmauf1t2ve4I3q5huDuWRgi R4yEu nC/btzeR5/T5/jkn5rfESROj0NQWx8zF8KLUALeuYS+bGfOYCwHgDOgZImzBtRzivkDj3qKaSK50gu80 XddOP Tpa/IsCfeUZSMm0yw3OFzAGNxa+18hfYGDgrVuWX0LZMmvlw5Oe1nM0WA7VqA7HGxjFA6jOe6a6pb1yU EFcun GzOEqnwbQMuNgAqetEHBjCqFDKBsyBRqim9P8059SI+6J9Ad5gnWpqXfuGESSyv8ctroEJWPB5UlgzBH IdCYM FSFr62NZxk+dUTTQ0zfc/pKvmOUPWyF4KYHzd3/jnA1BU1XLgo19xf7N+ejbPMcxhjt3661QGaluzFYQ Oiexi 6FoZw9oivDrDjasbgCsev3YhXc9hwq+2TvX1qO+i1544FzBbF/+RbySBFZq++oDo6zb4P400zrMiIvvZ nbpsh NXGvlRAQCe2QBAiC2/ePowgjfd3AKI9Vdj423iE46zmFzy7+RGfDelRO5VtSV0afQLAUouShKcLMx64Y IUx4/ CRxKRkWdFH/mfCt0vNfUevy0wHW/7lFyKP1JF/wVsnGOGh1NVcqscF7GRb9nKswV+wOOjeqmeJ24q+du i02To qoOOCjG7L3NH/FZkgs9mJxEvrZ6zlu4w9PksMK+NzXdNpmojHAWzfsSvn+AnNYA/DEo2wy7X2yhyDdJI azqFw /vl9yZFszwnlwMVtlcuNlhf8i7jJWglAkw7Q3hCq3Ji5OzEpI5qJxpLwqDvl+hq03szeE2CMj0UGRAhZ CS/aS sJHzXUAbBPQIgnLDIgyH4nWnQw1aLqJtGLFlbhx5dF1NoCZxBDC3+RlRDrjM7t/IEyaF6tdj+XZXW01A FSULw qlZ8MUIJIknF/j0g/dq3u+LPUDmRCo8i2y/3AidVnfVbNLREu296Tka34z/d7MqRs++0IBVh57kdx4/A 2B//G 630MCcP5qCpwSOKAe37POjsAvNxmbPGMNK3YkQJ+oaG9vOvSGRJg1jiCjtdVYJApPZF+6/vXc+WG+Slb O8b37 B0vgvv8iTd7H68Y4i/du91SnCQY9fEQcPPFfZ7XJk/JS5fYIFWDIVY4LTq5x4NFBVRvX3gJjsi1NTHRg ifM6b X99qYUxsoyHvdiTd8oz0GzXWZv7cf9HGJSRpfF5o0I8vkjLKP24asScbjPRCQWUedNu1ziEbdBIDPVp8 7FrsF qmuN5k5CjFGxcZOPg9t8vVa04LkGyNsNCG6lzG7+Mbzupd7khfBCl1a67+QdietXKwKa4a6dEw4tS7ji 2cU1i cf7owz/orwShut7cU/v7Uv1+/Krin9cRVqHWo5vIdGwpfREi3KvUnBw5PwDJo1aqmqNLSYI23gPGMr6V SMjdq 0viKulqvKL/6SgJL5pwVovtqEcQDZUuAhBEJICXwUZvemi/8PxLgO8zrp1/QtA7mWI/0DX9I4vhOjQx+ xhdJC o4/MNJsz8Wz5H7J1714BeSeoo7Da/7Bo7gqHhjFbMw6+ZmHi2XYFTKHrmiaB1MOpIhtDQsW/lNb8+uhQ x4/rU OftiTSer+0Epr63AoLIWF8vR9t+QvLLl+43c67dmFTA1d9YXY3iT4Hp17LlQvKxa0JBqY25swEaAjJL7 3LSEd 2Vsx3TClp6b1ab7v01M9kwxoqe/5bV1BbByzKw5pd22wrzbYMmzzYun0tZnfndLp9OeUVAURJfy6+Fos lJCTE J2aJsc9QDZJQqWrhL9dyEbbDnxmtUyrJgkVi9ArJ6+B0g8v+lJp1glC6mXtHQ/njpwmgKyOMdsj5W8nZ hvXWv y22F7gpS6LF3C1bXgv++LhfdO/ar6haxfPF5pGvhYU2VfIPVbv1NVSXF7a+ZzFDDgNevFHBWXLF3vHSl SDncB d/Q2QB9NbRklX3cl0p93D0YLjYYF7oBqDGSX+KUkxCOs gaiYmkb74GLYYqR8CCbpBeJ7pxYI2FIal142VjR6dWs/n3MVGI7ETN43ynlTTfn3xwgNm1wHlLEpTqI8 55/9F m9m669U48SfjYshEHdAvO5ttILbc5Ehc4dwpFJL/8qXhqGN9KBAK3upaRw9pkPH/tIoRmRIItOnMJKZ0 uHlUu Y3chRUT8dXJgLE7haFtJn5PKLtDVmnoNAtHmwoQ2hRiR5GmBgHbSYA8iEMJ+EUkz+3KLBcPuVlOtX6nt hkBfE hNJUySMq4GNJwpYHjiYSSBOPIu+sxGBbatvX17ozkueM1FPfGh8uqozbXHV7F/G3jPMN7STOV7gHHU3d fiHlA KaRKY1TCQoC0JshdIbSxyJgNE9w2d7OajsPm/aZ8i78W8kHrkuATcMli4r3ZkbospHV2SuIi9eFWMjMd Ehogo CGIvffbHnVXZYPyGRNDHN5NNPF7HLuxvHOm8JMJPWl8A/2y+4NfccE32lfs2STv0aueVdmw641oNzbM6 3cqKy fCPE/0W9IEZHP6XvX8RPBaDESxHRPH9ULAmJGA+3EiZODCIZDC1/9mZt9oKj3zO72RyeTaHakT579kBj ySXYT 4w9co7HAxbrD1YRsGS52atgXPCzj6ZFNsCZDj8IyhRn8CHuNhjQ/hPUiNUFX4YE7WlyxQ8bcTi8Bm7Mg WeYT+ 8ytwre4+OOhGK73UzIwWxoYJlZCWpNjb3V9N9U3CDP+t5IcLMthRjYNTWANLEpeTrDqNvNSvSituB3/j cMhNX QBZJjCYmk212YwXW77EDm9csw5i4SYzVlDeqoyMHkPysafjBYLkjmPMDRlCaTHFonsnffTSgNrmjVzfF c0KbW zhFSI+ec1VN6r6nGa4uKaY2zBBqliIX2jVEyLOINxyo5bgqiwiFl5eU5Cm35oFtL19UaTt9+Ao/Aynog cjKMN vtSWHxMjgcWLeYvVsAUxWGStmV2XZBREo3s5mcm4MbKsDprXCiinERvuB2JHNPO9dX+0HUT+KRDq3asa 6rU4N 9sjd2WGuwszKwlCJBTUxpT3D7n6zc28HdRgdEDCN+w9CHU3876RBEPDyHuy7fhjTu1ID99w+EihYAlQD FG20g yAWm9F4qG3AZUPS1X1zxkfFdYt1MUOGGflbLofBbJIiOixf3guGX26hcBJBXG68rFamM04nmz6vObNJU 1XI+K Tax Representative+aSVKqVE1uQh8rotZclQuyDE8IGZvuIoS+OlDR9gpRrzN+ejy7olk6i1PJCXwwhP9NSsuqzESBP2f 1eFz4 eKxYhhSpISEQxZkm/kDJdyGvg6btatj6HpZpQmN4zUWtnrko3SfwSvTX3RnocTQQ4AHeq0Pmm2Gwu7ZC 3l2SI 5yhnBmxeWU2GJEfQq2JQ3n0rr7h15aaNpHncIYCW4rAR9cY0rZuUH6+rCx6gq9rB3SvWLZ8ksho7MQ40 qtzA5 4wk307ynTAALZurIHMQPLTQdSIzlkezoLcatxjgNZQLNYxIFYXewuZPtWhvRqbjoeLU90uogcO2bCH99 L//ss OCKB85KKDsUkuTZMtRtPx29a4pHym6yOk0hQj941MnEJ6JhXGJRZ4u1p6cR/Us4Q5gdRmPjTsKrwjrKA 1bkbZ JQARcvIr5O6J9Zabrn5cu40QmEXIzQEgOH1siExDU/+/hnjk73cSiCeOICBtic6cxUtdZh6yQd86InqS gHCMV SBrb2nFU0nTlHHspFqPDv8Pw3CPWiLjrFDPfidLMO7v18l/xx+BaadJ4dHdHYHW4/fEZXjVb8hmsy7YQ Q0wuu spoze7kdEQ3aoa4SlBsOWl7bg4Bd5pS28+A1xFt1n9Lgy9+VZcK1Go0P/f8eN47y5wtjZjVdLoqCSiOF gT4Pr hH686DqYLLBxsQYDgEz/blPM1iqtIAbL3/tyUZWk28gLQTTw6GoEJFrjcpSuzqxMIfqgJ2SZIy1hKz++ K0Ggk Apm5Jbyjq2SKUKCftYbqCLLJTYK2PcAduMkDITroSO+zbPD0RuGvkryNw2J3Cn/IrweZ85RDZs6Uq/Hz Xg1xc vFB7xuGZnq2Zdh/bI0mEtJuZ6RPhxPGHPbDAW+6fBJFWROHqTGNmcmOcGuO+ediLwlIyNDaFAAr86vVj 0ZvHd Vw/BxiGOSlCYoTn0O6xEj7+yNdJBLNlMxe+E1yiL2FqIX3tWifNMbxixXqzPrAqQFGmNL3T7VzJiXpfn vQqf+ xa4deYhQ0Vrr12KOZHdBKeDm35sIujxqXRFltUB5KghITvVtGkCsNlEiwKE/44BdaVQsIfMwoDQ1CxAd 1Azav cJH0E7hkFO4Mq1Me/3RGk5CIzVhkoWVMZH/dYHs6adMwwGiDR4usKxviSvA824OUzKmnDNav0SWs11AM mAjZB dC8AU1FSEmaZJhfvvrGsIYTUe26B+wQOxTECu6Q4m7FLKGIrijpSD0ERAiG//81sWhIRTisWt8uCVhTk G6dOd idcQQqZ8PJKLocxlKzYxq39hw0EoN4gxC3S3IQvAb9/WUyj7YLvMvDAuzWnl2OHDuZIEB0uBkCo/cfWw PkoUg eyinMlvzxATIB5ud0Lx5pZjUPUZDMVdBLcFQ2wXgmmPUvLKoB3R868D/b9fSC76x/MFWOp3oTeQJ3gPP W9sFC 95M2uTeJaeGqXhqvj9yq+9d/39amXZ+y1MHC8tk+kJSFgZvfSXcxgQYZHGzhzHwMehHx9Pfhnimz4N9+ fuxs4 6OdI6r6B8scy/7ki//8/Bf+cHD/rpeOzelL4jVPa2d6y67AWal74sbBod06iw95Zw9CHA3aeJqf1Zz55 Fi90D gqEolmQKt+U455ajr3Rt+EzVEz0ZKkgMJemQQjxNoreGJUjzcK10+2uE5XKrYH7eKYxg+d+deyK50i+O w7xw+ +ffTVsydO/DqH1bNUQmb7rBOzPjk/8ngcCeeau1SMosIcJTZ86gujWr0nE8+h9Hmhurh5/PLq18+8tPS Tg4uX v/ON3x3+yi8/yzPvgXA3c7fDyGQvWRfN0rvsID8XeXQEer3OW+U4YbmrR/+56hdQuTcj64lZGkO50Hso q4WNl GU2d65JeKKqSGYxC/lGD80+56i8XRnMy/5OW3JX/BgIeXx1QjWEl7/tLjpNtCkKfL+2fhBK9FWc2want X4b2x OcAgg7khoFT6o+Iv2oatFMnFHD5GvxURxKJB/ExefdaQvv/d+dLwbpCWvepks5yzG3VVpn5AnFsT9gci G3q39 oaQ45iFLrmUhAEbr1Y/qx0DV9we2rRkMAxxbkzIXBJnHu3q6J41CgAwwtWdXYv0TVAvsGOyY9nZP2Nb7 EXoqL i8+AT+6DFacsG76VCSP4roQvoVWkaOt3dFXkaPOFxOAJLr9FfjIstm7gq7oiHKf73q4VPYBgUB45MpYX IEuxH uRg54v1mgHfaCsqEGxsJZbnkeOM3WKd5qqB8bwwwl+DnSd1MyDaTyzIEkGyIsxruQbwzQ6p1huzB/cNU lJSUl WOFkXncV93xjTFrJsFfiSefRpbD3fACy+qLOKayhvEGZ7U/fztrTGxZUSzNGS5nVq7UnnHTgjPHzqX2j mW8JX tmUMJpQECjVXNZiLa0JnnXBfdEFxfv9a/P46ektP4phfXvrFqlLPcSWwoxmdi8nooaduIzGNq3vN82Wb wROIf RKTbuUX3rcETSmJYoOMhjN7/i7iGTOBjj/FgkU8Vdv1wEC0VoAH3uGod1Cbie55qXoe79ru6aU+dW7d+ Rb4iX wEAgLDIV+UmWJITAnmHxAWHPOHaZ3NoYREXYWDw0jTOMIyRhAB+QjOYCPIleTgCKKTd9mX0DzKVoAW+I l8BAI AnwYeeLmBKIUl9pdnSXUORHr+RrwAAQFjkK/LPHKCCx0dLdzWRZFKCu8bZNHAdHJJZ+QoAAIRFviJfAQ CAsMh D8SkOVJNU+Db9TGGTajPhhw1JTKDR9ScmTKQVQYv3Ua7CBSPnlj/GCzCMBLwbLllVQSYOJv5lRwIHvTO IV+Qr UQQBOnjFgDBMDJIcD9BuLIUIQFOe7wVEVTyDgVW+OwTZJTQyqMwXWGNr5vZ7GbGHzNE+Po5FFJBvrKdr KwAAE Yj0smqUQUDWGn+RrwAAQFjkK/ZZHJIUk3zRsxVFCMQUk7uUUHNwFFHS+TcTVZFXrkWnWBTMhYxU0BoNP BAW+Y t8NAJXvvPygf9ROTEO4ZpzGGUIOMk7Sw9QMOApkc/POfPKRPzyUqrEMYZOQd0mPvIItKOIT+QrAAAQFv mKfAU RJYKuW2JnMFVCAYTy0iHJEZaQvYM+RmTISDRabTtORIRu8pJ9MtSUtHE+Zc5KJDUpWb/4CrquLMbyRP7 5rfTt Ndihhj29mkv1rfbwD36nHle+lyJHw2B7OS1+u+YHxx+dQA7bmd/ukTsH9cHDJ1it+a45U/sWOM5pg9R9 69Skb I9OyR3N++VXzmf+zM4iemWaHhoffL8IxwbK+nvqZDWe/onCwfq0nr9BEfaEcp49EsAAd8cNrayBHDNF2 f1ra2 2P1Bu1Vl0qbIVYPV4ZyLQ1gP1doD9FE476XVzhk4rc12c6kpIG22qObuSqmlLVr9BTuLaW25ahkzxYcT vV+fs zC9RFMfqCKsBbnjn/ycKn/zidaMsRnSfLT0J0c+GRlj+HOl081wGxlU5aCS8ZufRugUbU1vFwrvjQYDR 8kcJp Vy3AbTAAJ2S2T+m8c5Knhjho5zq82Iq/44XsW8ONIunEscG26qorR8ZsmG4judYu9EwpGD1erXenhGLr 7i/6R b/aPKxfutcl+l+XDpHMbQB5lIAX2mdhvXrh+tc9YRI6dLAfB/bY5md0q+HNJqEqkApOvqQRbWy76vlnR vtG2f nqOFjWPpfU/aR3KMDH20ldGCB1N/lw7+2PebfuUlckIquyUs07rSjC/Tg5yVQEC/vSnPUvLVHpjqOyrs i9TCK K1zCL897Wo/DZGcGViotKXajLwHYXuS7roiVL9XZ73C6IxebZy/PIJUiVUcOEoTjSHSw17eHfkGTMoy0 ahEdp kfpVp+l44XM+J91R05wqmomlvGfZHqM+e3eDylrHg72cy29xErnxgsF/p3t9q751B/2q+eHsFImtm04f 1lrp8 4AnmL562mmikjV0Dan0/N7c4UlRZyH4jKI6Ivgc6Jl+1Wm47T4YpXuYE8hfpPIG65loOoa+WazBeZrJk /iXL/ ekVBPAp56780DG+pRbSxC0NhNrcmVn+kaia8/gXzCepCafeCLxT5Nh87nwsmpzjOCBlSc/5n1CrE0VWk dfrZ2 v3IjBqsAyoLJy3SkVX3nHlh5FfshILh/bo5PhjXf+otnLZmTDemUNSqxB+xY1cjXH0RwLNkNDFMGGBp3 nrzeT pQNFM8EHRwXnQ7eVMgRSa/1/0dsa38b62X72h4D7xD/0r93UW53sKYbw90bq4qZQ64WfXj/2QaFIl6CQ SSlRK ED6t3m4JPnuRPyaavSPkQGWoC4J2xVwn4sfji0shiKmn4bfzI7FII1+IfD2LfZJZvbU5cNO58/yMznYk TKyRF UfB+EPBZJBNcLPcZgryirZJa9V71n95l6x8ogjcMdBvF4YVDJ3vc5+6g03WGu0W2abHb8vcdJyhHR7pl tfv+v 2ucCoR8Qu/OBdO67PowtWaf5jsdk3r1CuTYxV93Juf3qcojkR2f9Yn/n2K3wg23tUaqIw++WRVLG/lfI He7og rYn+lJp36YmdxT3xSIpumR/8q75FUtqPirUt+5WbNI+wCH0AwxXmWR/awBahpNpA5msrfp8STj4wlmx2 rS7K3 V1CYeo8Pnt7msuQ4TQr8wmwo6C1/6YDKWHnd5GYzIbpZ/g0uAkkGQistrqHMZ6m/fiog6xmE2yaAEibm 7+Ilf OafLQY+/yf4ebBse04p8PblEaJfPQex9ofsbk861NMy0Xpv14rxjPJUw50pvTl+dLfh3PCMq21aarGat +L4/f C1lku1lUvrX8I3Y3Z3FOz6fBz309KSLpMP4hATaCRVmApgGw7daCxQ0R8avAn+yvQHJ2/y+o2rU/6Rb/ afNSR JamFECkHUk+bOvXPbrzs/SoNNM5WTGJIcc4m93Q8Byczo3sn8UUBBzKEVCqzc8ndQ4/2ZwfTEQq8wjQX ZT9t0 zU4ekTfOs6pDquvNe2+ruXF2dBqxwnbkv6/SDRYEI1BGsSCCL9gH3Mr/3FgH/RmmMfr7ltKioCH/P/H/ phPJR kRv15rix9tJUz7ONwwV/RszzQSX+kA4mpgoBa4AS3NMWwiEWblonHlyxvEEwVIexjQtpHf/JlOjRMbSW ITdv6 Y+jJ0WTgKgxprcWQpytitNpoElt33tY/0TEWGvT7wEJqIO+b3PHyV6KQRK71ewm71m3hGY/mC9fR9RjY 1funT anfX+rUXLX2/1LBtV2QhQhfM/eMz57Ne7W0E5mPWafmamDLrf+ToYxnty/1//1w5WkKjXC5nSck9mVfd I82C8 AOyifp75xirk8mP/pD1bz7e+ubfv/DF++e+1qlSK7c0T0473sxD3iR52qGov1/jvLdn0qwk+bSSdS5aU ve1to km0cOx2h22iw8Y136Lpe7STZ61X3o1hagwFbvc9auqlSfr/D9eWX//y1+327680yjtHgnoAL+hCCf6o1 d6G7/ taFMufXD+W/986eIfv/APQ00mM04Sav9s8Qwk5o3dcIx3a9ass3faTc/Y5W7Rp49X5SygwdWkkw32m8q 6w2u9 0cus1hckwwl65sBtmol/+87mm+uv/G6Qz219/mt/LA265nUZd54aptfEWrp6y2Yxg5wgh4i+y365/Mhx VWF8g 2sUWgWJInKYcgXxI0dQRmahDO4OEMyRKUjSNFJBrwLHgLfULUCpUdtkviseAZYNCeJDkKiubGRMLSdWw JzFWL GNPe/l8d7u10Lqi3a8C5105W4+qThPrS0WVEs2v0uwm6O++o962uyDCxguzv/I5LTkaL01cXe8m0igy8 1f/O3 Rb6mQQaSD5x9GI4cs64gVZPa0+Ee6pppZeyWn0ZkILKwbCea0maP8278aYroo5R+avuKi2p147ph/D3g tTj+9 eZxx01AY2i4z0Ax3p/loiXHynW6ffeZ6D/v+S07c0lKgm5hP/+ztg32ym+lnT+aKCd1ik367j52EbZsn CvFXZ B5BwToz8OZoU4qLwdkODEBXT4WpYv529WnVaeXzy9W1EBMxMmbBJTQKQSoexvPEXHaBCWsjaZMkQxnn2 VCtoi DELKvAYEedUKFH1lp2zSb3Er+uwogW80rnppn1oqTrarelseaKRYo8kOKNqg+M2hq/BKOOchOlJsrEtI oqiTV YyGFfrzsoqQoYXCapSihF5qif14LibEViF4cQfMOi61jrsb4cTWjumGI3C0ggkBfmUIDV5iWkn1wwgJb p6cAs vk9gCVOuPAJHVhLMkxzaLX1dyr6btSg2mm74FXzZZvPQRNqY3fT//ox656oLy6hRaTBW78vhO8SMYtXx H/79w JGC8+olqAfJm4oC3MurQof8j+U/T82jS/4qZH+Vsqcii+VJyBgrWx8m1mVzwA2CU9UIl59Xe8Bgrckj7 OErVp tWKvpHhsDk1FETnJmt+YAcNe7fIkkrQRPoJ2elgvn1Mh5Jhnc+XScfPswI83lmvKU0Qf962paqclfZPU unp45 IhsoVRti96hcN/b0SAOdLhOnFBdL5mIyXwxHijoM0j5W53WW4qFvLsGaImkDNwXUxUsEXzzfVVB2okjP 1CkHK LyTAEGIuMp/wmvDK/7hkK3pFCY43vzlzNIj7ex6tlSfk+ZcN6MOVu7shlo04LYwnToZEzhixOYZbQhQb VB3lr PkYwuFSs4EPAf2CjqnozTtCkhmYoJCI2oo19OLoBzenSAcDxWZA3GiF7RbsOF9WzSj6nHHIUJr0r0Mpf 5a7JG 0iyivka7W0nUG/M+37xfRWGOmJkhzi9Ou6j8b9ARUSdccBCr+/zdk9U95sGA5MrzQR7YjiwOmDjfi9To WVfnD d6RnzkWfe2KlfIx+glwQIm0vKa8Ond4GC/l/MhAxe07x5ta/sz6eQw4AaDNK7hZe7zA6ptAq/Nf/tovM SZFrh Hi9s+b+eU5zjYud5z0Gq3+eihyetaIPN98ocW2eiZgDKn3QiAzZIEH/TIi7zPmIH0J4mFrlxclNv/XT2 JIKOB wlCNvNH8qZz92ugDe67/iAiHkIXYcILyE/go6RNbi9PdxwA8m6RJZlJJ1RUF42If5KOCshFMz3zDNa5g STuI7 Xg97C8/yRRSiC4rLrT0LFN1cfxELlbL4tU5TN+n08nydQ4AG3HNRI6GWOhIRauKNXjUzh7PxpnGzfwtm e8u0g LmtuQKBhDLYbM5rYb84abW696t6IKLJPvsaZ+gO8SI6z8NOboL9NLR9gYN2niBFsMXA6ff5poFe8KnLD xXHqA jVuMMeaDX4vtr+Y6HqL9p7rxbtpqPT6+6mIK1LmPC1HO6ySRDTL/CC9FwMhkT70Tc7dE+46YJvQ1iexl GLP9W pzRswW7yCq1OXWN5qfg46wNDtsDZ84R3ZC+rBDdRtie39f6sPVSPjQF24rgoAoqUIcVMFiWOx0J6XMQ0 jaiHW bcqlbnGncD7Qfu+RmjBJZiD++vmEHF9dMgWS1AqhcWcjlK0xzHi1LCCO87p28UbOMP7hHse+o+F6Tf/g Uha9V ZBiINQeRzd3DXC297kSryLz1vW/NBfU96io3agLZzEmvWb6UiL46b8c5u0MlysL9C/Yt2yOnuInvqEiI 3IsBL 4HoQbzH18OCU4d7/3UybnB1mnUoCzG4BUH3DhAjqQlMl1Wyi1T8/ha2ToQWrHrMP2ryPwdoBbVSacsAU mhOiP OnzF2NVmU6O5Udw43wQPO3KMm58Pj/yNczaWXl64rsVtAaLjAyIxKv1su++N76KvhTfu0JdrJEyJWqId xh3zg 8FAUqljUAKjKiFiiOOdWDxzbiPsAer/tH9I3XSJ1XUY+xeb9LS90RdRyGbVl/dUu2q035jQ05ZejT1JG s9P5W quvV16ULxCjU27RgakSCw90SOeruL9fiKtefbq+pPLUGcr2rm3ZMc0iuZL1Hx8Xy4JO2IdA/SBlhvvfn Mcfih bOUPfjmDVdiLcu+mR4APNQ7BFglcW4/S40qwgwUZfN75jONO4vDoPiCNJOvPXVZqgaaXCJzipgb0I4lj hWPxx 2NepIhuhD2yAw+rG4ZJbO/ZcB43M0Kjyv80mB+4YAAGoz6x1nAqRzEkYESFyIwdu2SNVE4UG6XwcwhQT Me69M v3RIy53Wm59ulHH28nMazWpe7TAFzf97hwp4WX4XFcg47uUshpohKzsOf0FrlcnXhxvqxjoMgStbi0+H j9yje +L9QeoOYjnnFCFK8vaFIuh+CGW32rYF9NmlMOjD5JcjQCWI6fa+/j77XcFNpgFska8kqTkDNMQ0Cb71R x0Q5x OfGgMKHVmIDTCQZt8VpliaME/tWNGbEhBRS6xCL0aOw/ScfFTU9v3166TetxPo/sP35FFQZ3YivAiCcF adlxE 9XokZtmtQ8hiaf1tBVTmUyVXBHO2QWepYEtg8E5zUQPsJdq3dB40Aa1F1KHE+lNklNwkawWkP1Fin+Rb bfcXF 5TRrCutf01kG93PgnCvAuK7zieDAiB66KTRxNIXH+WdeSS3DwYvzRsqcJ1QFjFjL2udZAN6HKc0xLEQ9 rm5Qm fUA8mO7ph9HVvianDoDLVWEvUkIi5sewYIgMaTPKpsbBq9GNGSp4cI853CWyHuflx4uk8/XekPtCs4Zq j9qEk +61jHUKVAX2kIxw0315HNmjkKHvqYg2/7zDMcFNaGydnS0PXlYVgOGItxsqJZ6adXnVbJ29YDbodkWcj /pAIM cxPwJ1EwbJ9YV4dV70iobu9V7MP762tUJriEk14v/EHC1KMk1wxkSl2oRToHc6oSlJY/0K9jGDYQD3Hy Ikjjb SQiKpAp7f7BthFgVFDhE9cNOUVeJgeXIiBPVq6lE7xpo2XhSMvqqD7/ir5L/u9QjHBTXkjzSphpLYTT/ sjpP9 6aKKhpSxWWqKrpJaKlI+WskD/JijVbQE4auEy1G3NW9SPwsrYWOTjmegjH60QBgNG50Y4dr5g8exYuMf vX78z k3ha7WNFs/by+5G6dsL3V+/OuXK/76ZQz0GLA7vUZmikxtSKAGSNHqlCYJXkdjmEMGhphcXf6+L72XSs IANWk IoZ/ZMAyWkhRNBPEgiohzGl0rRL+R2mgIDmgCm7reP/9tzxUrO/Ol+VwobatFc9R28KfD7xMd8/rnJcm o5NlJ 2jvKf//Hn+1xPK4yci93w1Zhk3FNfQpYSw6dTka1gHFC1aWtnoh3BYQ5B5f/4Yz6q6l/zrr6h1Kc3fNj d+QiX 0I033SQpfD+VLV35+2Hx1U8x1v56RDlfqTpCXvDN2D+XGsRPkK9TXAE0bsFZGnPF+jUgwZR+T/fBPYm5 XVWlL SL5rFUHaI6XM8/TdwmSXvjKX+0r918+RGKDNRjA9dBrwzwLdpxtaGC8NppIynETWXTrbJzxLjVoHwBmU nnOz0 y6PvCIwEbm6Jyh3PxZAc6CiHIZhxWEXVnH9cY4A4aoSCSFPFH3o3bjxwy2T+BDv4IHQVfoscvOetYKd9 h1jR4 +GHODHVbnOkjEJq1suvkruTbKvb7+fFNM4AVwBo6YUxSIjI3NXE3QZVjffDSxOOtivbGcDSxvx+/M+N/ Wqcpy kDmaQdqwE1Zdfc9YQ/AG7oxYR8fpj4LSOAHLadSc/ycbPrGIJa0mp2kap04ZLDlLI3O03sC3ftV0BEwo OqN/a 0H0RMJxIH4WCVvuwTAuMF3hswEIyr96RT38QULkJk13GY++wlize6Rj7fxEF0mYfMESm42sIR2LvFD1n e/Xb8 IeRsWUR4o/QyioOzrMsQ2Y1b2kCXt/ouneKStRHlzDde22VnHTURZEBwsGPY2iiTXNFXFn0FXlz5AF69 7mm2u dmf7F/d3X1/DDtq5+O/bS04bAT+BBDJn7FKAKTGbQZtkEVhn75rA8pfFkagAm74/Iwq1ffWmTH0jnmwg ghhBB Fag8PN6v2XkcOOLR5AVkXlJ7OL/Ry1haBxx22ajBvhNipGoQOQl1bpTw8D9vPkN93khwArYRVfgGhqVI cM+qR /KW0mQw/euRw/fET34NAqF79YgizlglgdZGCpyhwD7XUUW5AXU+5gBX1lt3RuTMSdTa8rfBd6ur/v3ng yMbGA jlK9vLs1b6g/3VGdaagmysq97n6SNl2KBY0+g3QiLXtYWKWNAgh+VdyO7kBqFA6osteN6SVDHIWunx0W WdiAW faE9wYm5fpKXJTxjHJOH2Q55zNaKN06mHvw7cr7B+0Zkq7//mSOv6LsUHe7dOxHFX5e0KcXN9whwnbWZ 0mw5V Nrhde75ra/0UYvqpIcjjgMMGMLZMhkijqCSbqUe07+ouy2oG1YSAGpwBPO6bfO+9IZVCFAxiNL7FRvnu xffoc kUDaSFKC9+6spyFJdjtqjR1Gr3a+yiscj4BmkfE7yArgT3SELBCBYTNbPssZ+BIjxe6TjsJDR9nCrIjy f3nR0 sXj8CyGLXxoT7uoaYzKfJBtnuu3/7LchSEjSjWu0BX41L8MU0t2npWcxsniRvgL/mC79vQWI83MzYpad wghhB DKgp0im10WoF5nx+k/Oj0mvYg/km9oCXrzorOEMQy3IAqwigUXCVz2PqIZJFNpjbo171wDuoZkS8GQK+ 2Vl14 SWaytzr6bfqj3wTaZhTjwREAJRMI2qwphj+Wpd3sR8KyImdNELWvHt5EInU6NhGL6IHVRuZE4MtPTInF CvFB0 Qz/wTvzEPCqNL8nopzGcFKCxrwrkyNAYuWVlPdcyMLAAPZ4usWyEEJfSwHOPi+p7EyHKIwd6PnvuKCDS y2NDh MOamg7LL+VIUw4LULVBFh5APwlzDnxgPZPQOAS4bj4dfqklHTmCdMqJRrcfZhLQ1nN534dtIQEIUKsaq wGUsK +mm5PBKkM6GIczk+DMHkmbv3PAlIqJP8KFLfh4Nk1JSWKlYwcsSjQrRFV4vwEcuWgylhOjAkmVLIeqTF BvYmo GPPpaFxf1h9ElbdSlzTRjlcRtzXZ3C7RtnN0wQ7UgS8YzBuezRIVWE0KsX76gNEWjlp5lWOqjMok4n3U lckNv uPRoijFozZM5C6QrlV0bieEbZ1IerDDpbhBtVUFtSk0mYwsmlOShB0ArVQFyQPLql2CoO9lvnQujkKAe MjAvT KToJ2HuVQEeKhF7X77kmNQfMS7MoAY6rUDrQ9svTAotC2W6qNWuNI5qeiIpgD6PxXY6wZQ5VJB+PnN0c mVhbQ xLptoGmZtE7M4UR9iGoosavRqdSFC8zfgn4r7zox14w8adN7gDnOddlCEjvUcGiLilNM42vdRITcUGaN HoQBQ xjMh3ondJRJIBpctdXGBr2uE+r/v9avbC5372uHkQenwwZQxyyjnfFEy42LZK704T61mmR1DsjhFh9NX PFYIh sQCLrGMyJBABsckadGCpaCqoBeOHvTl5MZpuOQ/wbZAf21FTxMvOPaebedHYQp2DrJxIdcBUP/cSJpuO jk5/D nMFFYQus9O372MInUIlUmnHsR1dj9betOyJyVtkEKdMWjSnCRc67KKddLxuOMK2QTCWXppNh6sFBKUyV R96WB LDgTv7mIRA+/B1d3ERByfCxuhnSu2RR+f/BmoidVgIHsJPVPETfHAYJ8MLGg/6IbI2XKcItoLHKOMQub AnDOf 9Cq5AptS8TJdGKhQB5Ux9S/+238MZOLQ3b3GYjsG+BaR1ZYV7ecUBvy6Rdf4CdmWir5ZbHKTA5qlIobc eruvC B2C6fymfjQYvCVCRLHSpskplVuDhfK0JT+oVP6FADNw2YzgPTsCKtLsWP7hSVTtrMYlzggWTonkzNGDj hod8K dxSmZvXvILu2RzTtKJKT8LcK+yLlsitoflRY8UcXLJM5BaXFZ6Q8oQplV/v3EZfjWqTKSO3O+aDEIIZY Aj0kT /0SE//IVhpHOwLPhU00FS3QL6TlBKaXZKMx2IWsnmJB9EGIpGhYK1KqomVf8uMv3HOqJMiatF54WPALX wQeCj 6eZPLrj0Gd6KoIlffbSm8AfY3WNq77lkeq5hp5GGbLRbW9LntWpWdHU8Bw86dCcy4xu5vPM5b/zys10Y phpa/ MEEifuV23tTD+mY7JPGIf9Ct5MKKLbcTjlzEHGKrfoUN0CCavYxTyJ2uuMWzcG4sPHUMKBeq/eCfDyWe wEggL MmCReLmVbBN4Act6v0+JZmm/HxZv47N+Q/IyIoa56h+xUtV45EZzDYzMqqL5fFdi5x9OX0HPiB1OutIp lOGaf dMcn6MRWWLbfggfvfwgRrkumfR2SfheNVnEpqK0OFLFqh0ftXpIt1vYc9Po21WPDkus9R/r48HcHdPG2 CLFvJ mXwXNrMAOsvVeRDMh32RNTGqLZLQ3OJqbHolPwGLL7Cstkrpe76p53h3wf1Yd82vzrPQd0Aw231gCDnT Y7we2 JuDIvzsYTdlAtzIflTVegFWr5AnMHTZg/AQ/wkmXImvpEJZR5BF17IWzE3RV0wZaIt/q+BbxKOBA9MIu qOGp6 k81B+EQ08+7lo8nTrALHUDN9I/d9a5H7nDt318gc/q0dCDLcZcVDd8yZcv8kblv8JcLaDk3qThk8001Z qwIC6 rp2XOVEvHsRF5vkg/jLvOWA3yyPwyGdla6DSXXspEDhuZPWwRLi5s+c8ofNV1hvtIiOmIpTYDE7CI52c Kami/f vW0Q5JapRNHQvwr/GdJHbcxsmcXdgpsnBHicQWi3GadTFhJHD+3vug45krOFwVoRNqaqZYkHFedo0PPd c1PSK 6/MPr47Oeyr+Pge9Vz8jXnQ9b7SXok86zy0//39kFSqg6kVIICQ31hWxeIRC1/5MRaL0us5h+5FHxqcz UHK6R PXC2O213Kik6iDbSh8581cRGE0iuJ6tzXD2ebT7kOPILI1PkS177yvBlBJexSXu1TURY+MO0xUWXa/ry wWwc2 hMhULWTy2ZVSax3WdvtS/fNidXWPuVjk6/skSWsZGqULu4tj43vDfUKESyR83RO9X8f0nvadbCsu3fVn iuO25 plzvoZfHeyCympg1lkQpdO4zPeGPmr07CFADdxZbQS8+hKlp2pa+Gj7DfHZahanmmzJq1g58yidij3VL 5eTmM P5roLTK82Tp4bMui70BGG1cSCKtNh8+dN+yahcaGdYs63Ap/1HEfS2WFz8iE91IypsSXOoKVJOkhM9F/ wJHDG 9ksEngvUmsGHc2SD5z9yUkobwl4m6GFhot0ckATI6m4YLdr2NA9AfRIFCgN4eYMZ0445q3aI3z9Ct4kW yG9+x Q3h9bLHsM52hGnvDBxpemPM/6conXRoBqBArwMW91wH5Ok+ntJa3MdugrXDBae7ItH9uuDiz85auSDGw 98Y3T acq2A/3jqku0DfAZOFpLs54lD/dSz0aaqhHi9uHboF0rzVOb3uBlhegE+YDcVzh2UCSpg5Rk2VOjdgpR J5H/t Vzo6/XkzgU5aV4++ie51Dnve7WuQd8xqPDfrOLI9YrukXjoxIvL7bBHzknhwta128bjM9vnGdH9+PO6f n3TA8 Y87VlatI4pyD8WQFF48qDnFmDrwQCrC7iONR968BtgLUB4kP0j4j3cBmAiBnXTUKxn4k1GrX2YXzbWx9 Nu/d8 PmTft+d7iu+WWFrz//8jSlLPyx6UFQLCXFjAeTtGwBoppTlbUYmO+qTbQ9m4euUsrMXXob6+BVr72BIA +wCAi xvZPvniy6+zapSmEZ843GfLDJg1u93s466uDilxtwJYvo/UpHp5+DTL636yiEPwa90FkSxegOMx+9taa m6p13 OsidSsDNk2Ry3uZ7V32UQifyrGEXI8d+SjOYecBhMKeY7YOPe0225VUePz6FmIf64iuZds8YTOTEz0DF iCmEB yzkxG87/4MUftg5id2ckLk92GpyfalICl4aHmIxHTpVST6VXbm7JOYw+DYGg2sSb8CtMAee1jv8yeryw aVl69 athmGA/II1tWm1W2YHxjF/5qeSAkgDwd5aMYIwQCvIs2n67Nh5T1xg00VgP3C/s6D89mTbOXfNXxqRuE Tyf+j XjFOCY04A6g802xN0smleg5tcXIUmbtsfuJ/nPt1BsyKdSMPBnBw/wWtufoguBJ46hzGGhRtr6fkFhy+ AzySB O1fuuUUyepW7+DXWXv3F12NrVFp/5rbOAVIz3UNAJns3TJcb21XNqyMGf+WMU/bB+ImJpd6u7rjn4xkM iIQ3O cGTk18va0aj+9acxYk4/L06Ojr/VsatxbGSd546sNWDVd9GRgFVg84/2zUhx5lq6qnvWKe0IkHBcqtBf YBJL2 K8XMrBi/bvXFe/jrn118FKz5gvG178iIlL+XiWQ6YqYsioOxN8dfmGqeWw9uy2IEdPRvFroThcpybKB6 QTZ9+ /NHzkqA/tmnFEQrWQq1DTFoATiT/2qjnFIoJ//aps0Vs7hhC9MDaq120c8bUBonXzi5Jt6hM5kYofPlD iKnSl Uy/WYZkAKWoC2qQz2o8ILChVGTjzBKEOQKiJ2+jp9c7nHXWZEKDbpqtsOtmDzggkmumDyssDcCzBCCe6 N/fec 8/7y3PO+q4pQXxmrd2T132t1ar/+I7ilyOk5atho2i+X+P69e/tyIs70EY4iYjsymXbdiPbGyC7bqx2g aIl0H TQ1drfZ59w2i7RN0SB7pRHv99rVsd3lLKneHu97nLQawrdpg3kkLrDzMuCc0/ljBIZgxWd0Fzmh8xscg omTpz o9/uB+qeKGL5lx5RYGfl+oO17rCG6pw8+fTvp/ly8CAT1KG67uR9S2cI3/3yb56orYVqQxOzcNSWbdXV d8XNn d+0yZy3JqIAyj68Rqx36QloJerXVBuT6iGVkXGqWnsfJXCtw+rr6P1qLvHYZc779TObFk1s7Jtfmxhvq Am/Zh lLTtJ+VJCtLlL9f3vgSfb06bIzJBQJJPeW+kZbtK7pviABTzR3onHFqBwJeynscuvzD81qyaC7zlbK6O XFIRD Ru7rdhK4yJoH3HbxI1oRKu4EpA35+IJjYaav9OqmLrRAPDzBzQbpffCYmReSFfWNTi9n7JPCHKhWOt50 fFN4c CN0yAZyeTZaKbTuvcy9SMlucJ1MbsUSk65t6CYGTI+tKijyvQajbgeooriXlKqS06b/o0hIPbGDOC+SO 8NA3Q DJDAEkGfnBTTZDVlnMvekLURD/4YfcfRM3b+qZZ3zie8jSJvWxPhgCIvA0o/Fhp51zz+GMNkZqQjBFjW b08M6 GczcatPRIp9XHazZnDX/9hl23GyR8GJBbGWD47Ai38cdTFrLr85cYpupUTClzXQKzhtMgSXX4wsxzs1c //20u LXVavvUcrxRJIr34o6W9UniMFpWrPf3DJ/a7eUsoNR/RD1IAs8zTofnhCe3q5DorofmsYnRlkCyov0F/ ahEfr YEzFlv8rwdmeo7EnarIOPQ4cWWPqmuKGMhWR+Urw2hOykaOEDlrArohQa69UiO5dPj0o9Rnllmzm1N09 olFQY 3H+kUs+BpLq/t3Ud1Y01b4+upKmmLQgMxPq4WMOvZro67EaVTt09jYkddUje2FIuOyMwpn29YKAj4Ij/ AG8WV K2RzdtBHbd3EV85jK3K/7/CkXBVK0BSIE73j4+F1zq6WLcc1azy06qn0pOvyUeH+nqXoEQk2049/uD18 poG/f u/9n6fHGxLq+7JgM965UECMlnyVPpcIm+UaQ6feDJVtfRmAqv0Ck1wik5tvi3D6FxmAVBp320t7pSJfE 1AwIf usrEbvOb5Fd2HjsDJcPt/gL+ghVrqZKVLWNfJ20+sJ72Im0it26uZF0dIF8aFFFvzLOWeAT1hnIGdcFf kz4+e shesbkPh9pwqzS/16/aFqEaVgucqIFLGOBkiTWGfoAQXoKLVmFY7r19kzgxOhCGXMtA/evQHa6owCLNq EsVQa qpm2V8mvEZZWvWGOPUjrJmQSswZ4zcNftkx8Bt9+UpbyFRvxkn7sn0855GBWU0csOSRaX1C8yXtSp0/g VghAh UGmOKAAK1w1dHicc4i2odsa36++OPdP/XpyYoK/leQRKsyEw1b6OjnikVZbrhWx6zqXIveU87PZ/Wrlm qvINd 1cPf+HALLqOQVAgKN9iNHMDvtdazz7GPA5wVfX70dYhu95OROgp3c7R5dG5XNSg/1HivIOLIuJfXEqXP YWCHe GLHmF2e/8vHYcROzD+wD3X3/0snYsfE+F0C3SUBxWmnY5tXf7UK5RRzxhTKsGh00dAWHplFtcZnw9hOW yQ8fP O77GJ4yHMZ/5q4ceWav6JSS3cL6vjbHviTDCpguYPjd2ABrEav3TZPqeu6xnYJngnBJPDT/wN2+Q8fsj D3A1a PF+fJ6j8145TKvJOK40Jy24W64n2fpoZOpNkS/mhYQMFqS+Qs+PHRqFZLE9XK6vj3opZBx1SHKeYKa2K bwdOT G5dstT1rY/gCdhVjeEGBYdFkcbc82Qng5Uc3LO5l/T2HJsBhq4+/687V+iDS6hxJKixCvVJBUZj5TSFW a6yrv uhc3adxScQk8m5c0W+yQ35uiwpVwh1uc2zlqNYJyvktMo4WFWooYxAty5n4xWLRRrck0aJvpQqVgLz/s ObMQJ pwJOVrAVrwfhp3s9Nl3+m93hmJhE5NR+JVdwY317JqEMCL4tYQE1y6z+mnAz8n6DGIov9M/dtqMoktfN Xr81E sodp7j/yOS05k78Sm7YazwBYC08Xi6gQpHPpSXLO7kK+9McjUI2GU/a31v5SL+MMbBTEc37aXRFBNYEA k/8kZ W4qt1N2CcfyI7NTrfbXNbyPgNCGmGqg7+CNaTedIQRm5JOulf6ESYTwTUHPbLpDkPcSSNQFYNieIqZRy Vfyht ViC8vwzbfEPeQHVlxu02Al86bpCJZ7NhDt7EfWLEMO8KAZXyE8fWYwXKZ6u8QYf1a4zVkdZ4KhSsJBhW rGBqp lLoHEazk25WP61cvRqixviJ9wT1GXfaUICvWrKVRJRpaMXe5hTPC2HcYb6azIgny+ld3YSeTjEiRj7Na 86WPK 7KG8yzqR9z+s3lpmvsiIZvy2xv+umWXyJ6v19cSGT6eXyCFOuDK5Brb85WBPbie2nVcgZjb2iXv6uvCf RJW5y 8/PE7YP7qo3XrW7CXJDkXqCH9x1U/T82/l40vMHahyEPR7WDzeA7VF/E85kFL88srMAJw5XLbu6HfEai FvFmz sbVrGMgzYDXQpq8dpo/M0D5yxhmw01HRdte+Tr/qsBCKP9zsyt9Vhyc62cKTN0IAA/4SKFax1wXlTwey C3G5D gdLjddrVIwBagA40gf/v88rhvQSBtYQGN+5cqzTT50bY1dS8YVcQflRt9FlskeP4OuOQovxAnmOuKmGV UPzoo 49LCVnCvim2NmUyUo9QL3zE7Qo15vyidsrYSVVWAT6N5sD2WcLXvTXC2708jlRqkDCK4MoN8lG6nkHnY RDGYI HVHbRsl5cDT8QbrQ+upjpIaFhl64VZYETsWFgWv6zJKmwUUSsqsgWC6KqQQjsOF7I51bPurOVgGk7fYY /Zb96 crAGjabd2QRFgGjj8LH0sfo2Kz0jJ1yNANc+Elf7G6d3TP3KBpzDEayAmKBYWFrDARIZlSUqZDSyXRRQ rlaLE sbydVou0UhdB51Rw5myg5iv8CV6xHxjk9otVUXAlutod+vn7o8urz4x0mlTXtUpex2m0SyX6UlvcAWEa vajba bxJJrn/y9HWYdJ1bb74IZPxNyneNnhfrTCGcvzteCWszWdkwzqQPMpKUCxKEUJG3CelMPNAtUlxtRxPo 9JogE 5pGMXrmHqGjxprdlVW3roNKLVHUtEPPZJ+1mWK5/gngUGA/g5hCXhO9KxSQz5vxAPcnohvvvYpsRYD3n UF1Kk LsCE1DLIVM5nt9ZeAipX5MO6yLMBNE1nWSn80v7EhlSq45tsUpQVeiKwbJXiOMZkhVzLcE2e35crV8PC 1lWtr Twa9dASAIbgrlgYngzgq6G4HBoesZ0sME37tmUCMLZTEveuYgGE4v2Ep8CrKqei2ieW87UtMsKVgv+FU lVMXR lLMtpBp1G/a/1xHXxraWWTubGZ50JowQC/eexOMkmmOFAzbvGNFLI962w44Kn15JcNd7Kvr65ZdKuScZ OoVhb PMkCVTk01P6aEJPSbeRBwoomWWybREhgzfp6rI+jyeuEBxi1EZpvyVVrcs6+cyalVOXPhnxsr25whetc 4YOhY 1Py9PGahtP/+o98alAEPEsf5vqX9pRxpr1TiwURCkfKhA3Ham19fT1Q5Yka/U3lVrHXyWwTgzkEUuQsQ jsalt 3xDKSYaKyYODNcTYcVIvNh2H0IeNW4wM1XqmpgvqNz7t2SjPmabf6Ao+/WjB9GuyfQN5H/UQHc5hS0Jq 6CwpG hiMHfpeOsS8LykJ1u9h28Yv+9JKlt/4UDq5/3WVRgX80IOAyAwIInI0qUg+4VzgPGaVi+sx2GuM+kGOd RGEdS +pS20kNpuqoERdowDROO8wuMIoZTpMvaxc7IeM+hFISaBP0CY1mIIemetssxAwvXO32RybTIj/Zfed1+ egTaF cH7vZ6cdkKKFkmCuoqflA/at1j/Kqdv4BCzkSRfePV3kWlB9FPZsOxY4yG/xk4exAUUZuWBpLvnxxim4 LUyeu Vk4UnUrA+zCJul0cgISk2mY3hsiG/O0oN5l+Q3bV2rlH4Vw5+ftdjU+RYZzsy1F8sfGpNgTJ0kLto4qc IE4G6 uVFqo9v3XmfWg7uzYKY3XWwKyaWNqU6tj5LQADt4q0X6FbctjO0zdcsw+Akqhg0DndITM8cvwIL3DlQQ B419Y DXde+eMLTvXf2Y1OL+aqyzytom5382mHrbq35TAtMWux/TFQZOiekuHM5exgALGCHst26zJS4br1IjfO RiLuP jqAsNl3yQgxibDULnF7DTBNnwuV2g5ccteUG34awQJFg44+Rzrrv0720dpiq/zGtcnGsrqEYREU982Qj t9x9a wCIcraxcwDubaW7yOclWiO2H9QeSDxAKiDAHbZrRKT2KmUSAzFI2TPiwB0z28bfuiwnz158aRcdB0lf+ wkr6x VJUnyyxS4sv+sc2dNaGVtNnogmVxtLJYz26GjgB2DnGrMbTdd7hAXJ8R4zMaY1+xpYuikoggHQRdr6u2 uXLyN YQTUYRcUIiFH/VROqV2o0IoQ+lclkTg/0Phqljsqgf9QYwl0L+TNAAT9OGXkXslSaPakj2qSXcnYmLFy 0UWSP 2eJJrL+K/EVIBFPm1RSu5CEPt+EjhaamLENckqXkXbRbeO/lU0dff1VNnTYeWiC7vXVIR7mWrbTZi4i1 LLWkm H6IQNDU2225IyRoavAtHUcI3c2h6ea9spAeTzeXZmL9TetYApeQlrr4ke58iuvv15WL3Ms9AqTRRLIzm MdvzH mWI71sNmlFQ1qnwjTM/YQNFWzgmcvoMn8Q9baActLtD+TY6WhxKBcbCZQ1zIA3xteJsm9lG2TSSQvN7F 6t+VD 2lHzlkljl+Hsx7V9eYyKXbwO4gBO2yOVml4fgTbpMVTqvYXHZWWEhGbEPmNDRWhuVecn6G3XVTLWqaz5 nlLAY s+xKRMRfxmZfYl3sBCw7Bfu5DXqLax8kkDiOFTxgb4/DsW6Hsxu97011U7+A2iApcu8NGK3CtV8XLNxM un5st VKKyDPICOYhwn+hFaAV4/25aaD2LTyqGEBwYaHRcjcCF8rTsJCzg03X+iUr0254Rg185Ks/vA0306et/ MdnP/ f7U6/btxgkgLoeLyymHm9F3pV4z/GCbn300RLx/otv5C6IRe90KGlwOC0mvtre5SZfzJ0nTrmI30Z6Se d0s7F CzFRcZRUO4lMSE/CRt8HCSb05yIDOtLB08peM4g150PuBd6C+/fb5U2+lGCr8uyQcdqz//BFFdjq96iY xZxE3 09znYZw0NZbnx9CtDJ4lBwzDpuFwE7RdO9ZMyxfa6AxdY1+61kYhl57U8l1B0939+ks//2UICsX8ld/1 EjaVD 0EC8zkRgK3+8nnpSfnKjDmV+Axo8NPx8v2wP9af80n+/LEXcW/AnqPWhRCfOpakpTcDu7iADJITGHhKm z33qm aflZX1+uw99wknI1DRXFogaM6CS087swceQ/N81nbUNje8RazOIrLIG1bFMgv5Wgf/jG6SbP00k+8yOd /dtZL 4hCO9GKrE0Wiq8R0mXd8he2rgYqDMCdS8eF+XtxEv9cMaP/7v9dOZAeWCHW3mPPoMIH5ymt4ZylMUzT+ shkpR PPJODkb7A88aerkyFUTNqfCZjcEUWhwZKUYjDiNhwyrFwsReFP7KuziOZth8eRDEFJygTsbx3OAhRH2c SIFSu VMSMQgitKW5iTT/n9ZqeYViJB7J2xNyfVUvl8UGpKEiaTlb+kXaZ0b2X3NXvYhqMIDoOypqepo+fckzB X2/QV ETKVQkoQLP760rdUkJ9oAGZg61rGAdKa/xZTkERdLCEUv5XOeGJoJODpWSLHGvRgkMj3tYUN6UDQZ5Aj Yr/bw /+S3T8fgNd0IbNEg/b3C+4srDWKTQBZqinAP7hfSLh6DrVXsMwmIsM70FPWyScTThGokpzbidOPsMLoM BOFxw syG9lCXmUIbB26HV+QctZCBUGYAPqZDC2oxPYgjXc6EzID0GfO07AaPV/2W/nt1lbCy9vx7VNEygwduR SkJbJ 1pX7638GW1GgBFL5nz/AUck/gVoiRvM9DUtneKCJKuaNS4kCkaWabCFfXGr/Gvt/Lth55ml3Rb+Y7uuy iX2F+ 1seL/9iVdnec80n5p+M/OBHIQx7NdhLGYO4Nf1Ow9NASA+ka/IVwAAwC/qCqgCHWF1Vy2lYeVQON/IV+ QrAAD gF/jUgQAONPcaW1ByBDVLA+Ur1kPENGHElRD+SyVMxfTuiGiXQKDt9mA0FvQC+EW+Ql0BQCT/yFfkKwA A4Bf5 yrnAWUH6Hb+RrwAAgF/kK/RFYPXpc2vOxnVIBO6Tu4cOBAYRX/IV+BaXYRzVkePyGAVJp2zD1QaFJEZG +Yp8B QAA/KQydl2CNYRh0AnkUDDD8Qz9Fv2AJXT+ka/IVwAAwC/jSpcXQYQ3Gb5oOlNYGQ/IV+QrAADgF/mKf AUAAP nuE9MmGHCLJ+Lq7rUMALUXtRF+SvRTjfUelPrHWFJa8uL1MbXL+EW+Qh9OYFN/fEpoKhEB7Xm8vamDQJ D8Il+ RrwAAgF/kK/IEFPZvc7yRpaMHCM3Sc9qXEKDSN/IV+WcZRHlObrPpYDNTh8tT1IgTMUCG+Fs9OYQI/CJ fka8A DOVh8KhePYYS6Kj7Ce0PROQ+ka/IVwAAwC/iRgiMENJ40u+Kl7IrJCvFeiUCdlR+8x3PwZyhWalDJ0gT UnHnp XV0sbZxPJgwj3qc68Q/IFvBcS7R/skMR9nQiX7T2jrSz8/zU7EVpXZni0aVc82FmzBnp1wfyGu+xfHMP /XL2U /9lZBLZNL8uwcwtfpxQftr9m+Z+bTpF/2ai0G/6vdkdsdl17NxJnMDVHGUqY8esL7wXx9q5ORXilj28k OVBSy rS+sIMtke/hR7DhXvzehvpz7vp0cUFkq5ci3o4QpW8CRTNzCNKQyhhwj9SvjZha85sZWhYFdWCwuLQaq 1fzLz dC97QPvUOQywII6NgcdsJYqwZ6iiUn2B9yK1qiE+Gidt37p42TGpkJN9zbCUYDYo40ivJNDRWk4S3i7d XO8z9 cogsMg1amp+1EVJqNthuxjwooDTBp6a+8z+DSiu31LrGOiSSroVg1MFT81QYYSpU/dXp5m2wY35d3d3O 5lKOU qlOxaCcuAm4pcvrDr9iTbBOfnqJsW51TjmY+rajYCeQH2UXQibAzvbxX/kv4cObxeR8iMjMFLri3S/Corey TMkTy jaO4CZtdH3hFc5B/1WPWZTbTn7Qwa+JB59dm3b7n7oMCb8dQ+7d3okuN/ahv4SlrMJUCfVnQ6Xe661wj ZUVa6 qksrrD/FdsMxWPQ8MNxRE/UFb1cqkSi+fulZ4EXotHjTpJWNpmwyJ/FTdmFK5Nwj9UNXEygoIT6FvJ7b qrd0t 1L0vIInkYeVAYJkVdWjqGIhc01ge6iYd4Yb14s/7ZToF/41zdwC6uASJiMMalx8vxQHJ7Hejxwa1jqz4 9H1O2 nY8/dpR+06SUIZcFeGQzddl9wi7wu12/vVNr9ONfKJN65t12pDwyria9ORmxCGydB/lLOft7Ofrb2yku woC7c DzZkZVhXDlmGNTO8DnB3Q2OR2irKhoPVlaIZ328mUrMeqayEeuwwcn1wHA0FdKP3PA9Kyk6iOITW+lLp oLXgl F3tTv9e6IB3ACNOb4uyGK4SMS5DiCIPkBu0aOfMNQH6PRrZ0PndpDceSoK7NE3/87isTTPk5nKJ49Cy3 7UJyl U6t4vr+P3Ud02/qUKx5YQ4J+iSs7EePA93+jaSeBxIzBxFyxtzpJx7I/YqlToNhLuNCgkJG+m/e+1Ukw zQJq9 KiVKWVDSU/lK3+x4zzXRY675VjXs4A3xD8B9r4tRKxgBaIvbVhLMuQH+/15Pvzbv8XYNqkGftQuuIwxa 3IFkI HWtSeZJS6pWetNWkCejBmBsuuSoxy4CNuBKhhtbAcHL7T+LhwKvfMmJTHSW6F82thH8/eprjPcBg0Amn z4Da6 jnxWCc03jtA84lbGfrBdvZtBS02xf6FPjk6k1ygri09RtGG/LNxaXXq/PJQydJdS+tSBC2L62G33Elid +jzo6 1vRpHrpF/9c0bjQviKaqctkvQ/hC1Nqy1I/wdAzQ9Pn/bwYuxKq+ce51iv4r9k2VwIqASCqAhO2SJne2 Fr9rk IFcu7u88bTEvg38GgJL4Hhn+xL2Je9/r5gknIS19AQvmbtq3nAFzamCl6acqZrO9qwgf2mgKXHGowX2U U1qZe gBecj4MDzPIlub1UOy5ojjah18bMAVl0IXll0Dko0tUd4HWqIerZhlpMzuROrSG/oMm5Eng88t7pmluq 9S+3W NC0NvR0+TDTJxY5R6zjscG52eJSc9Ga6w2AggkEBi5LPRD/Q5W4Xbwz5z8fh2udeY/SryVsdSRRbCJGi L9Wkr lM/rlR286sgx/oUNVHSPNtsordUo2dM+Mz1fv20qRxLRGM0h0dIueVdc973QcIKB7EqHivzrLeuU5s7X mk10V AGW7L/mTt4olmX3809OTu/jQQFGvXu5qw5absjlJmW6B7cooJhVVfE2yjXXeRA4m7Vh48fdewoS23shk +kH0h waJdaPuvZnmtErtixpIGEQ/x1oLunUkLiwOyDJCfkuccWYkfkbYEZueQq2So9HBsrQNPTDIfn7BVdykU itGXl XZS5LubT2FMUJ84qhGjr4bjRml9tGDGRI9elWvr8XCg8MMZeaKyvobkCesBvxh/VfmDO5BhyUtq12w/d YO77Z X5cjqHKkoTT5H9swm6H124aTM4BSYAG/kge/esUP2zunek/1atp87nQPXoAG6xqBdKDZpfTeJj6YcNEm 15Zub N88U/f6/4v4fXaV/+F+xe/0alw6np7I5+1xXRtwdmz0mHytVMgfdCH069O1gY1XkkT58oSMbzvVpn2py K622q 7j7T8aqvk146Yyt86wcJ46sC98qI8wbe+9tLKe1/+0u1ChkgaUhi+2qT5P+G97Jmc9F1+uaVFRnd5thu //sLl 97/1dZgeizwdWh6bmiDYRutB568f1i4gm/RdzVyNu15o0vh8kJ0M0ef2t065f9i6ekdaymwguqvw7Bgg 6+Ct5 yQ0dv74+spLv/oYE16peI7Uu0u6s3dmw8vhhET0R6/9nuz4j1n337eD8gkQ5/cn3j9FEeuXer3/uS/94 8Lyvc QHaq5a5lAvc1VpUz0p42hBQ268z2oPw30Rn7aQey/+d480ror4izY8soc9IT+lxMJgzIfdDdrVxThU0V 1oMFa zqyZP2B+qIHEFMSEEHjGnb7QhisQEJnpmyNfB2wvalhCXO0qMGB/H5gnAsO0yQ+f3z/ec9+vzPGdm8+M q3RXm ROeLf4yyrIFhDX/zed7n/b5XPv/r7jCX5uy+uXL08O/m5lbnl/7wqSf+V4dsNSd91Ffml5b6/tbRpz44 cvifC dvyaFzq0fB4u/j+869cPfDCewdO/fGlb7+z/GGTgacfrlpD5c/8BGi2DjFVSbJgbaxvqTOxlSmbmY3Vx E4L9S 2n0vZga/jw9p8/6Kel2biFMpuJnBaZHdqnfvBP8NkbRNM0hTbLWmLwrQCTjSVLXTCYsyXisjW4oIAbaV u4dQ8 3q/+lC6asD2ueQqL35gGiJScpNzJbnO68LN+AOx+fhveefHup7yV6cmdjwaBRXt3Sy3V63xNvie7x6l7 0W3zY 4IbxfAgqCiKxjslu2qI5L2tnJ527vhL03HxMRyU5ks5xUgNA33R5T9I7jMuQpw9udawEs2OnYsHbNXss x2CCj Fud3cXDu9dd7HONiDo22NsAoEeeEcpHy897dpS4sJmDFZLXJjWHFZC4xo/+3g7Ct8in8gGeGvsKkn9h8 dHrsN 5/yM5gcnyC4kmZ+6uMPRVZLF/GdNoWaV+BIigCYWaOSCLI5kT/Tj1NRFowkFMxvnb5cDbSyGbzDMBCVa kvkIm b8VM/xsCCGaGncNe+Sp61XPM9mik12hfkjXJT6/VgRRhEuDd8+/j1DbdqqK7bnhQ2BpKF9JETfwq6i9N 1ySRy zgDTjABd3MRnWlv2Ok9wTY0BSXXq1n5wRiCZJRVF9BNKqptEbjWNmG7Cf5OgjWo/kBBjiIXIfMZrxqv4 Y44s4 m1T6rTm9fPQgSEH8kZykoEABCKvJ7BAzIT2XcuvAKoxKlPNCRpYhYiJcEDPDi3t4eKBQIXbtHIIJ2Stc kfax5 BoxdG5gJC61v/23ugNo88MqpJuFwb2mokaRBAjmSN5hNaEctTsdWhguEKMf67Ejq3rK/cDOBp+yr+Zdt r7CUK Q3jROS1WcO73sKbBiaofO7ozfu8/ih2oTHaXAEhnOhQZgxJXXDwqddL+NdukiyErel4zTHXJtdq8LQ2/ JpAbD vMIPbCBaJ9t9w3bXBnAbcMwjYbaa47gMhGyAHuC2Nq5si6fx621g+Kjb7wZXzIW1RvyEpaZ0zoI3QP/X qs+u1 4Yd3zjYN18O3GIsBWavbKQO7Xz7Hbzhzhox+p6wNDGhMY8qzicbj3r15mCbnU5URpjxODdoeMBayiHJP nv6QU Q5NM3zrHeXeHUV7FD3Rhflx5PnxQyelgg13BbrMvIIA5mTNTr86htQxFZ8vHLATdSHRp7ub+fJ8SwOBm LwiAH aqZ5rmwFFvNwP475hw7EdUjKNNcDD8/a4WTtFkKbDfXfIh1ywTPuhNX8p79p/gBPTAtFJiPnsV27euDQ nUakx kenY5JNC9IMaun4+xxYhZrxmvIodiaeVp+Oh1EXz5MpmwP/PEZt6QtRpLgRa9jY6QX6V97ObI0Pk2Lmr 0prLJ D3A3Hfd6QrdzC/S09Og3Hl7L3HigJ3XRHXiiaJXtlcTI31gf3eXU+kE22Fw2ob83XdvxAwJIUWBWdZwd 9muly JjjEEBNfnQRv7GiOPTA364R86gwWIMyJG6fNybQ61Xu7G15+vpQdp7AKbkSfQMFCzFWD6PoUii+asgZ5 TCVuz nIEbTXno8fNNmiHmh8xQzbUe8f+a2EXHaMpzcuKW22rcE/Y7sYkGSEh9xZmLxVeO7vvohE9YtGRLDnui Y8Zrx ApMBg7QjpL+2NBej0XDu57vgeSy4pFZsvzCplFIr5NVxZ9y26lKE7tPHqyZL/DghM35KzN+vj+rw/RNf hRvw0 2T9DTv1mfV6OpXCFkMRgDqMYde9+jzSPyEfj1TSU0PNG2udXjAZpGxkTXaMjMMfz5gMDEDWTSXwj28yg mCP0D J/+AHoZQY8bFz4w870HATzJidBqHnTKJg77cS2C8tofjnWHogR69HrdpfNmf9BYBIAyH1YFnmtUJnfVX Ro881 khGgIu/oxg4lMSCMVhl/x7lKSkaUqvHhjQHNA7l2Sn29sQ7L/hKKgTcFmz0+eh2C3dOsHsS32AU8vGdD pKrBY aoNE7h7oyE+TlagvIYTX4Hj7GeNBNw7ah+OCl1hBkOCFNyKSeTdokZ919uLWENjjq4+cwyrtRbkPLJNl EFnPR dO+3lBN4IpWk4nBX7fXBRiw9EYMBGQDRjspBrxNgeD5RyRarY7k0wDuc9K0+iKDb20DlT8XJ6DH3Jreb jjXlr 8SjgOOG5VInmEFOlbtf2jh8k6libtN3YeFRTVA7joVINXk7Kla2DoVtWNjA071Cgv2Hz6GTk521sWqhn 0FiKJ Rug67668cx2FjUlQ47tcoAB31U55pR52mZfKco06hpkLb34xhV3oAT8hXdq6H04lvR9mYcHZKPWuQJ/N d3F6/ +i2ZLd2MmwSRSuzzglmfmnxTF573/kXhqaRYzjgqrGpmGa1EjV/EXp9swgiPfVjLLNZ3XWVan6VMH0zw 80WTj v/pKXrGDTwLX9KSK+bZfwwqYF/L8tWh4a0Zbkm6XnlUuvqPsInkSr66E9x80IG9ZhptOm4UHMoxBr9dS aoSEJ sqCGrQEv5B/Biwp34ZCqrVk8oploxWx9Vl1LK401HAHNpBD+rvgfmzLTrvt0XEdEvEZ7NxTW52A1TqKA bSlPV qGIiF9PuEgrHOWSbm2ZmjLU9S8gSVuCTHWxKmuOVioDHTNI4Bt87svOExOn8VblFMDLE2pR1llmeFpWn ZXNuG q7LFN5xv7CEBDzX0+JyyEH4SDYU8LgV4t9Y0gZQswo2109/k0SO/El642i0I3s/MoeTdWDJGZxKQay2A 9MBXy mcVH+P/W36LQUpa4oHtdAQtzGtHhOXR0wM4/VzPwuTaikp3xFOoxkom5H+hPZVBTVwmWCaww1RWo+RoW oTM9z SgJc70OkQQ7gAFhq5q4XX7RFuu/jPyQBwLerVjGwMnqK4XK6KmNMDbX7xk6pgUoFhkxTuMY5RwNGKKqz ZmwBr OlVwI0txPSoC7JvGvN74rtAoHMcci4JkahH6KzmK76DfMGo5xWlQ6OiRHezLLQjJP8MeUaTEKD5EbapB Pevwf lBsMVRpo+kKc/Mi9gebLnqeVNC1jBNyZhlBMH2t91hFpUVBeGGeqUcxUZSbKdbWNXQVlOkdVvTgsHJOZ +lKCG GLdMtSn0yUJvPgPFbAkOgXLTuHClHmpz6dliplX5qB8K+2ZnfrGEFOurQ1nTrKB74E3C3g+l7rKSuCOl xdHIa 1Y4vvyOr/f6IhecHNO1qjzm605JhL7z/oJ6DmQpgtBpmQ/RBySs+x4aqEwSnDiQg5blQ7894/r295Wjc 9YYdf 0FdWzZel/iuhfMDckfbO4WnL/q9ZdR9zb9uLuCdhmyYqeS8iepATFxu8pPyK/tLs1jn3frG1nopmI+n9 +DWn6 S2h1b89TEbQwyO00pB18i+ECJGGm57fNXqnwR3GRQpIkak4WLf0n/oOhwCxpPaPAoktScYi0PsXKsXR3 S8D79 SZ49rent78XlPBSYZRCaTRgOVmJAjuIh9ZYzOJeHooYsk/M4jmrnTNr2+QZuiRFW4oQNltwvF+EjpKRv jFOgk bx2sTB46XTmRMjeTKklENQoKQXPAtzn9IOSmHyw0HcwJoL4UPvGsFLCWPazQS3zc+laZRiaRi0QbeiHB +3dZp U89jxD3APfiWiYHp8F2q+bT6pPy4p4ZbEOVCFRUwHjjRLoVYUx2X53ZXyDNmXnrkMTFknbhH671Te+61 l1IiJ jsLeQOEeD4MTU9zR9ijzfd8wLn0cXs9GPdm4aQ/MEBvM1ivad74kptcueSITKeA6K5cv0XSZ+ooQQggh RWvgu BQOievoZv8rRDlLxNKqq9zcu+udTc0/Ojca42uga6lYwMyGi4/itk189n2m+g31TwgZ4oISTqeiEROzI T4lGf hWg2fY5Qxsboo2PhAW8mc7SL7N7TkUDLEGZHdI6UBajPSUj0tLUdQZAByMh12zwFlm9KoGPqERK/OSvv rp9C+ V1Q+6Kh0HIkyzQasuIMhx0uANTe20bFoK6lL8Z+l2ffDpGe32ZyrWwohWF5PRMhspOnB8PcNKrHGZO0i sNK5C 0y6zz0g6zaijyfJijziWkgFXuXCx+DgLwk8QHW89dhEIdj7+xGfvbHgMi7vApDgxVRaqQRxzbMUZa6Hg 3CgXK vhdLYNyCLYLQyN7BuNRFiI7SuPIuvlq/mWcpmnTpukq4vaD//x3zd/hSBhdi7VL+8gnci9968/9sGHH2 3W7ud E0is0FDPR02sflEroB45A9b5JqH00sdvwECJGu5WjXg04lzZQNMCTikL12CfbPUYXgBPumnraJ2IK3cp OwOVg dE13VwgtkjUudlwt2kWC3nwo3z/f3uH32ZjFtsMbWjqJhNbn9t/aesq5sgLYXREblc7+rly0UhnVx5mm TXxFC EXYbiE0VC88Lj2B0v/gW4syt56lETZWGimGWIXJoFuMF53RrGmFWBg+xbqjcRlfXOZMxMV41/PuUk4Bl s8m/v VurQ167pkytyW689utUyJHHORQBnyGZOxuTZz1O3HKkLG892BphRPOAA67zgCo80uabTBFJ36GRYkXbN vDmVy z4+miFDtU5FxYFayQIEy+cZBHs/3Cz8ybXai2ziP3elrU811s5R+v36itMXSNODOOe+6p3+J6D2XP+j7 NTJt8 5ValpUxA4ucSdUNLChZnZijTYJcunVcbM+QSf1BfE/UJr2Hd3l/UFRxE6gtgbdQr6Ui7+8eTTDMBmKhT UV4QQ LyhnDiBYxPN505eMgrsjuQSryJAqSQRy5SK4l0Mh2IuXZiOBu0SabSXDsaGTIlbqbm5mth+lIjB8TfXI jgiAA /IPVVUWDcjALBet9XuEFmZkeyIjMFREnSUfK6WnRRh1sAWOQSomn3gNqHfXXNX0KqHD/aFyd9LgUhSwC 2JZOR wyJgyKfmiNYWVCSqWp0F544lCFZtcu6hmMlCGXJ/w2B9YKJ5T6QTNabaZ6F7Cs+yo6IT6Pm9prvIcPIo Mp40b MSvJMDiFzE9YNMHOgD65EGVAAWVgKQzYqCWU1frDwiGsalyUqArcISEbvCUTwVexPWIswCas6m8KhmpJ vbXBv buFlqYD5Q8JvlF5bG2KrF8OpHellLNXNY0CmS01dCTJial9aGDjwTia6b6TwxzBqdPGseeMlcQW0Q0Pf bG9yc vWgS3HddUHcwjGdUZXuNr5tSoeryBDeL0LbRCIcPQJkk9UgW5uggDtlpWOlEtUqYRMbO3QsOETeFVd6Z 05hbW WsSN3SoYN7kFZaB8huFVqqZ7R6tGHmSU1vcsIbwP5TiJO7vCZ4BQG+FvB3xoVyuUxSmipKm9sXcfkIM5 EIAnK pUH/QqmodiRAiBQl+5E/umWLKUwHQj99jMTgkGd50JNkOqIagChsBjUHAsq1fXfED3eTR9GouIdRszsh BYBN8 xLuxfpZk7ckh9iHtFNllwD4+e0Su0ACHTMZWV87rEuMD7K++8Eag7fI0aL2gBLWqKiC33lWhIp/G0ELx KB/Ep HjvPVRC1XhxvYJ2ywtAH+FQPY0ssOP/XD4kgnySvO5rIfWfAPBSFFMZXKxnZKd0+Txi+YpDlZNHge3wU Bk58f dPwJ3uKi9KvdJC12soJOZ6ehCxuy5yPigJ/goIBIR5FvKDGXlsm3XcGqyRgfraFdmjORmzplTctSv1dn ST53c jnceFw+FkTjeVkJDQ/VKJ9OxcwQqWs+Bj8AA/3G5J6SmCHCE8N+UGLjG6UaiWmmaP0Qh9nxtkY2Eq55i 6EIAx qw5k1VVJtcZ+eBFGnHByw1bWesBnhv4gmZYgozVDZXQMWFIIzgQ0KPOgBAhpCxa4RNF/q1QCZb849AqO 8RmMQ LXJJo6CxZ946Prs7D8z/k6YOUYwu00mT4wj3fWWnBHPOIqgULYinRMtsl9dlGi4bs84P2BjWULpppiVq IahUU zSg8SBHAbxZ1ZaoIzeVTOtDDeCplotROg2l+i8xCzGNq1vwGEkAUDVJL5vXYPJZd2eqmvcFBvifNvHNI MZDD2 YJBoLuSZATKLCMUBcSSiKx+YqpRyAdeJLNd1x0xp8vHm2bBoMi2q4kQjBUL8/dcSR7qHP12J0pUGw5wU Vm6KP Upw5i8EuHzHCFHX3UyuQDwgB1MfYz6LrGoClARxhm7qwhU1gllb7+/38o9gskmixDU3FppowRaDEgoqu ubXdh p4qKhrjghFViQb6lvGZr/UNFhaXdBm6PU/s7mrkI7HMsgcxhopCSa5iYOw00tMRDPrH64xBimj1/UMc8 yTTMS JKa1gs6++/Dr2IWSaa/1WScDgYfEnAKmAPv+N0w3ZZSsGpIrSWIJV7+CQLBALOApvpmpWQDQwG+gNstP iKxWJ hu6OGznm2vlBA1tOFTTnfrIpIE6XOd9FZuZy+4RAczHBbTFVRYVrONiUGCFIcvkKvKDImLZuaNpUSMng Me9It oc3PQMGeVdKQZ6sHHtaOtd7JoSZ3QzeUEUm0RW0VSBrtW1glonZGf+HK3OWfN+Z2d1eCtYZaeiZcW2sS T2jM8 XkPZa9aAISaOlitGPznKEcPnZ8dIMDd+HLUexoIZAQLGkVsyVXFAhSZLbzQmuT49pezHurLCMhopVYIR GeyXh AIFva72vg1tQ73iKCrORoDSJTHNRPAL7B0xDUaXfN2G0SvQD+eyhYcLgOlt62aUBnNzKaXIP26SZoMSM 8Oh7+ Oxl33SRX3//E5W5L595TPkpflUAdVcX9Axoe9mPYLrQaTi2qEg8IvP+kGLIZWPs35moFEUnNbnx0uPny y3XJ3 r9x8jMzZNwLt4vcPfPzVKkFFFJmEqBmXvVCdfl418+Nh+RYwQG0Bfm1e8cKPjwcHaHoZJnELY5A/ja/c Vnnsg 2/UIOJ3Gg84LuT/LCP4+Ok2I8ePwvT/d+9nIZrCWt8cRtKmH4S23JkKLL93FkdHSLq2blCQOfics43id TJtcu rMzOxNsoYZOv/At1rtBOQ943Hp16q3jVtlhm1q1xw3UR/KM2rI0ZoypehcJa6fhngMLSyspoN9BdE/9I cPH05 AUR17p0OYRsoatsyO72t0r+OQxjqEGLFx1I0AVe1QQ192w0/SaBSblSVlddHrOrgA561h2ySFHI1Ao8F 18JZI FQ083kDqJuLs2QGbZeavIygYwFlSOWiBcJna7/Uls5mUrKgFHxCWH1/xFP2i+08eqhR4i/kItq431beO W65c6 cm04NpDqp967DnQWW/amldOPzSUiCHV6AIW3o51TGb5ECIQrUUDFznPs2HF8zj+0RXV7pO4a9c08dkSn egwxh hrI4foBcYM3O9wRNbM5/Mfn2q42awFlqlm9EdCq/acdKxjZRM3OSCkN1KkX/fDLCJcvz2h65WFDaKk9g bvSw0 t1/56sfGJH/7Q9G5x1Nae674o14BoQKFIwJJUiLxckY+NmfQ6bHeAo1rtAcaaazPySjUUh1xd33HFp/u Hg7Zt weHyPvwqy7qcipxO0EiDmdDOEHZq2mXSTc3uuxLpbiWSCYVI/A3hIX6/D1kZfHS2uVz72krn8995jDE/ ++vXr +/z4EX0OWl0QUk0+/pdrTpB8ZpUwaJSCkK0wn7796qc4l/segK3B6b85oCNQqgoi5noIaaspVMo2Xtp1 ts64T ChoIT+7a8lVOrNdY1Doe9oddcAMLh/EEZO4hsQxXUIA4sCeVwFx2w0mpvrNm37WB4RcN7yJFhef8g6Xl HB8eP UpM1NcZsbx9nIJ8kiqGzYRpEAh8qv72jEje/g4mtKZaRBn2u8+BXxJ1C8fswEDfAkIWRVBz5JQP7kENf SicTw 4XPH29FP+MzV5ugRDpqpHty3puWstRAJoST/qXl1+sDevsW4CQ2k4Dr6tnbCzHGH99z9n+rqzmNNQgaM Pompa/qG 6pvHefDDG7iJ51aRidyptugWI0tHVDzJS5rdeiuA67XyW3jgtbbRvolAtRkyZih1+dhE40ZbQp/8I+K7 bxGa2 mrvd2rubn6w2g/J6/NvIMWFj6EorlwV8+mzM6TDdBeBIGBsr33+b9/KYlAK8xDAVUXd4MDP38/1Z99o+ AVkyi 9kjh7fFT17kot1w1Rv9OWtZ/j150ys3FTMrelK/+vcVJEiCiGYDGOWOBjPFaIrPjCxCU8TIvQbe1HaGN c90qr q32FO/JjZ5UHkY+4+KsDVdmU83NDHK9l9/16XykzVGYmGEmUv/fuO/sORAwKA/2o/bvTeEr3y4Wnn2z9 xsuWr Pr8zc4yqgrlPhTctlUSfWLzAYq0U16eMjvq2QoC1R2K8jG8zN1pv3xeyih9hPedBxzR7KktydpSZ5qFo 9BqK3 xv5G/HJM54/yYU12N6NHxFxFLIclUwqrfL1p4vMl2dXKmR79mXnx8SSc75kxY/apX4GEe8gaLdkycTXW aU1Vl pzUhu8WsrRe4AhnN5GczpEcaGnZtXUeZjmd791idn8SThiKz2j+3YA6MHGeIgNBbariZkEbN/MGfOA0D HjnxQ BUDRjVitYO3Ls1PgQAzivcFNfAZOUAFmfqGhqvbO+c855vzdrFbs76miahtDxASKLg4FfHGB6muF4nOo Y5btO FN5ua+7mWRerwd7nww9Im1UVRZ4eJ2YyeoGQ95u9mro1zqgGhalbt2e/ov9Mg+CdftwiYpDFGSgf0JXZ aHAVY 3TF9xQBgmIjctLSBWOIIEFFEUHeSEp4qHuTWOGUhlPqkdrNRNpvld7rHfBYXBRGTIkQKlBGHzkXy56Wh +//XV PloLybwl/qOk6wwA21uo+b17V+96lW8bdO3iljOcYLO1+ALLXLdKxiRyzbpp1gxI4sDng9WSLuyX0vZd YSQO4 eMWWOkJ4bwrtShEET7/v81s/jdnxYmGsZ8Mz0GBVJeomJbcw5JPAS9PJn7X/l3WKzHQcqKQKE6+9fuWG AWVAc xL+WiUkwQaz2vEfgfLo7X23n/gXsUicDiopRNrs2rhkS0r8t5LWUNfeSDDXnyck4Y1R+dzUdo8Q5O78d YdTl8 M0SMvBvHVinCf/XaQ4qCxseEMmCcxFsJShfjia8K26+q0u21DOtbFJI6vUIngG2isf/ImgMrxteHCF6Y HHjh8 +cCybDDfDtrLWltb7Msi5gbO3TytPfurw/9x2ipg4E91yPhW+CN2Q54iVW9IU0i32+aHso7RPJrQDPtV k5HXo EtqG9s6O/NcskAV5eJVR0OoLZ6vHi60f725E78nNFOgYJtKdE89no3+vh4VY/URlkr1WZQrdJPhNK/B1 TlJSE aUKvWKmwaLSPWVGLSO0LPjOogh72Cg4GGk+nwiZrauusbGKYHQ080Xy0Lnuv7hVU8VVO3a5/cerVsZHR 4JMvz CljbfoiuW18LNh32hZAUo05ddL1jtfFgUbjDGaxUuoZCmtOTvTbmLQRJ6AZase2jS3gjuc5GV4bUMnR2 k7Kd2 zOcFkrjIoswnjLnQ71CSjzFRxX8Z1ZJnjtehKnxuRwt0QwxFmqWeMX8XouzwZX4Cbjq7jU881azgZifX N4hnz 44tXcDo9l4OIWlpr7I+Uxtoyrn2Hfj/kN+p5MXP/hpSK1aPl8codFcR0PbQfnUQakuq1L11uhjOSH+ND 7tzhc MppQW/erilqqi/k1rrF30EZs1clVrFJ0SjmgylMQ9FiHRWL4pGEQNQjHu0SXb7KVX6YW7C7//NVt2+jK VOmPC TnRHXdT9En2nKaQuGUDzznECwViXzltI41/lWKZlFbt+1IX4tft0kZlLKJ5B2Zth8zS2yw9uF6OJma6s 6ZuSj +KYLF54FijaqU3J8+Tlk+KnVANfSJv4G7OoR4dYbZgPzdjSbkNU7SJmaDUw8Os3sYrAK42UlytAwKjnQ r81Vt ffnseTNcnJOV+POrT538Hcvhip7/P39TASpFkggZcgAItdeKCITdgs+gjFLtBbGsJQ6um4e5T8XBf79A ex8aO EttzoAd8DW4MtgfZjIpsgWDthVmrZkz8w9ehCmKMX6Bp47rSJzDifvwDtOmhKziUUmNlHGNnPysOEbc0 dbDFy MGVdgDpTAkXUfEueNuh7pdXyZLZLP1ZtwLtV3n5AjwZ3aHAPa1j3zl2ejQds0zB9OCgYAcG4ItgPfWhn ZxoH5 3RpkuD1bqlqMQS+CxzngMeVjW2fDKD1SDxYXsu5A3COLwisOHSFV1DCeMcJXK3qwyt8Pg5JHkKnETvHy UyQ8v +AOcN4Pbix1VDQdqhW+3bYfCehDr2jpu8+n5al/Whk3pu/fu+Xjn7zKUawSv7+2pqtIozPF4JE1SzvYf 59C5g s95XECd6/asQxfWp+7AoZKj/uv9WxO+lO9FayQs2aSRF1ADFnSSbkiepJixg3olB24sU8c1oEH8CUgpR 7F+bb 1pbH84tttaMoqgo9DPmriaRbj6Bo4u95ySJnCQ0+3WO9oWnz3GeFgAHRJftEU72hVSNmdr3QsowOD+UJ r3s6P 6ybMDmQyB9A2snuobTuAqgde0kFRYT7kIdLNLj8ZedGA/ISlwUjue0pbic4/RxIUKBUEt4KYXXnyA9NY G1ZQp U4+MYJUWUBc2TbnXfNEDGQw1fY425Ca1cqEtbLPKUhR88Y82/plbLLXlC0XjMYhiRR8tdvWptslsQ23a em3YK GeIIXokWMkfl6cOLJotxV7AgvPbBgTb4zRg0so+HZH7d0JStfIOEupDh7QfojYc6mZksjxw6NEOq5NhL iWsTt 2YTnEsAp+bkGx8VK4tThfMo35f8n5RP6RZ0JkjRrN1wo6325J1oRkRuiaLNODTA5dwhyQz66QbQci4lT t53Ni Tp0/dCBAm5ApCyzT4Go3VZXTnFLXdn96HlCjt/+aLgS/LLmQS5+MEh7og3bKX3xtCaMGCtIEYriJ63eP VERFR Y9jrjRhqXUGCMFZK5gdY1Yh3Di6YJkLR6XHv0duswG7H7CJ03z3wlXJaGQLIar3IOw/Cy3L2/BmEo+a7 daCxb rIF4+yh/ce8CJ+sOAGwLJylMUgzeJPNV2CuN/BxgtXc1MW9ojFLWhCSWDPs/2C20XkSIF+COJFzUP+0k 9Gsro l/Nxep7wKrxlPrqtbjAqE+VjDXgrktYOxptlvnfE6FHpnVoOuTiyMgbE1NNWd1s/Wt5MWAUHcDjGFRif em9CK PHmwp0WDuB+JhrsTN8Y7O4gdjb10Xrt+X8UQIqHh6t2bOox8OcwrdaJAonsxj8TLHsGeJg390phsb8FJ 4+/Ww FBWcx6/D41h2UpBywukf9zALlhmKVDUHMscRHPbMybI7/Itq+okpU4+IAAt8IR33vx0bdh2ic7TbLYdn Mje37 wFL0QIm8YN28gLqoBOriisdRk83jM/X32rnKACOhjojRn5a0HNwXe85SwanrHYAOJo9F9IVZWExlob70 BkRGx uO0dlR3+kAONcZSCYlmvbI51Czc5g9wBlS3SCD20YEmNCoCtF7ZqTstGpVVM0tYtShGzGSelj/gNYltY HQgXS FWTG1uNCo05ZqsPv7PpzhILTDRY/ChbtpfwgiFmFVDmoxDEPnCwx1ZzXAsrvFouetz4U6z1lO+hhU1bA IQ6ra kNepGmzfifubn4QUWVkBiExLOF5GSjQMIZhB6fX8t6o7mi9FHLpKgcbkHojuPrNbzfJJLsJbSbGudgZa UEnjk F9pNHrU8Qb0i7ZXc7C0QjQdQPJ4LoToc5jUOR9kZFARomNARwmmrjYSg6wJ/OxwQsCl3zYizM/HKnMcS 9qNw6 v/75O29v+zYhpoeOBzIJDNEKIXoQfRHS74RWZ/IxggiRMN7lpqjGxDBZvfKFhh5iTUaACbZLdMYnjgOP dCYC8 BMttxMP0v0vGIKxuCLHhQA8MeHK0VnLl/dsy0jmbb+7h7aoLwf1QqIJmaz533q8fqrzecZk9vuhOgd0c LxOQE M6NSCFENJrS9t4FDA4gRhndhZbU4q8UQ3XJdy5cjNbkJGDDOE4PVQNzZpw8pZkYCbWQ1rg2vmsLPOEhu t2557 d0e/JqSFW1WcjdiuSUIva2TFNA3DHhaWzZVLkusuAlnzzAydQ+2Hf9NGEvKyAvMZ0N6SBEgaABUOXPNX R53tf Iv0ot9dWRMMmiOMJneMsbe7HR23q793ro5zKBD1jSx7/iA5K1TVt9tSFISVkbYyZDEeF6jHjWg9KbG2l xMM8i 90OFRyPh7fFJ8JevjREzLybNR9heJaAvVaJ69BLzpuBBOLId4BQRCeonAQzD5N5CFUE8P1BdfjLIvm89 LIs2A dBIBVpg1VGhIdQMWYHx6E6tXttM/UHiwOFvu3e+UslUiPO5O9AHYSFrMFIKOO8OUq6Ao2fUebCUEAQDe fBFKR RGNo9/ve/PuiBH7Z+fwUafUS1nEhaVWVCbBUrfRWGyMPT5yJluhSiGdLgHZgAlzw5cSVqw9/tlztDdpv ss5Ge a7haSHfU76V8wUV82ElFvWR5ovpxzopoQWqlb/PzGlclCnBrEcPHjwsXvuDm8+wWwRVRpgVWLyFY62En MyJeH h3QC1UDbkD+7Bv3gKQDnwgBlg+M5oAxId6MxG1FvEK9fdGOLSUIpiQw1kGOyq3eYIpiVbxeDcteY/SQ6 +q/av UA8qY9/H4STTq43YCrsSzKL27BpvvGcYAH2rV52X18InoVN7xXHW7cc6ZHvAZtqSuHIcvYtRR+STnsam GznS2 WIPjKWhnTGiy7Y9gfhSlcERXkPBn4mwYWsb32yJ2jPVSwMZcBXaiaUDDmpAr/3diZdoIwgzQQFJiOSSM XdtLD nzekLln3wmlHnxR+r77QhIihY2+3d9dxEW9gPfkWJeVa/04BORYIo0PP4BCu4MprxbzQgpnxzIwTMzzK xQCU7 HBnCaVlsHwgve9Zy3SspSe++7XMxNJp2pobxvjN3tPAetwCOEPHlo/Qo6KzSsZxZatOUn4bmugWnFzjr AMWW4 wKH2K/Z7lN5c1IMHy+Ag1UVpuIMCJci0o27owhxkgsLV2wX5tC34+nH9lLonox5wPuTH5gYJnC2SHmIT rx7Iz bAj79/0n94aICbiymiH7zNekSETCIG4fDw0KsuqGT/PR2DKT3r4+qQnWbXIaKW02EnBNA9TT4Rn0o/MP mCd5c qBEbPTSe2n/IncuNDg+GxHQoYOdHGx0sy3K67u5pRbzqUZEpm9PG8gbeoRUT0SssmMoDmOscoBdOVmVt 0fTkw p0lTrLwxULVtfjDo1qGyXmOoQ37E+ttELgymSa9p9yM7dB2bs9ukw6KUPp+8QPH2Ly9PQIcCwuqI22TC PKfbp 5xHKxlBBvQ262ix5tOLKaqrYWBDHP34JgO8FFOO50Z1EG87p59Vp5UFTy3oVNaf1k+lFIs0RUIRXreby lEqUH ptlj2TiaS4IaO6Sy9ntUozHpacmsob+pVJQASQ00KK+UdsEEkihnoN73YdxcrAjxoudZEZPdHeJhrOhF mER8S pijdxLJvCFyjeWsoNrZG6peS3LmaQZt/OBQDUE2Yn6gvip8OTGHlGltaaA+JhtAR8cY83/9rxmQJU8Ui 6NyIH CCXXWZaqfWY9ZmwcZG3g8oQ1IHnYIxuhEGoo+FJ4Pd2PRddaSXqiy6VT9L6hYwSFwbMRXDN1lIFeFEvg BnDFf nGX2IF+ENEE9DZd+cVIkXaQRWps/aZRCnE2aNHPwSVXhVSFdyv3dikrAxRNWorgQ0i4msSpH+iERFBR0 aJQ6z iq5m2yCtYA7bwSUPAHWobzPjlHAsc99ySr+aVAMcs7Y/rHphvgmWfN8Pfyv9WWJ60Oi1hyP4oxM8XroJ Cjok0 cYjt2IbwcrCITHWOJFyrx/bO1oXGpOoAiO6gUw6YTtd9AGO5fm2asfdQoclV+QFjSI5R1k1BH4q/r/fv vyNPp 1JC30U/LbJH7DvX/Lco97WlfBgpT9XOyJv1qoA3QY5FrfcnnNUNce1ZOGDrhczSNFXpt2K2FWpCNZrDP bMbGL pgG0W6vNxyHu226pnI32EZ052FGijx+HHFiIBkLsCBDiIMDVUfqKVdrr3t/yi5gYAOvj3rNsoZYKnjzP LJAky XxDyD24GrOFhg/9hyKP6sJDGUXV0hTBJhHqbNSEX9pH0hC8EIxv3wwWG9+qlt2nx3/+48S5P3/m838/+ pUPTi 75QFk3rgHD9RTMT3kXy0+cvTLxypVjZ+n+zgNWc9VVs+YlGkwe503J5ajr8p8eaCjEA35vNa4LbeX4uv 9dmVl UYfAGSEM4MPLDU0ToqWgakmxD4jyKTQ+VYv83g44dsz1fUlc8hqhe9EFsouIrX78+1UtzP//A6SsSztx Z4szb r9Z+c2b+zU99+m/Sx7rHH4ANC1onDG5/yq+aObs0/dVmoMdU5ciV3hdY78HkIhhBd30SwE+EyHqpK966 N0txM OfJy3Sb3A6yLrjUaVkeFQMDr4r8h30cy0s0r7+ce7Cj1DqedA7b/EymO2ljy2Ruq//iEerFFCTTlRow1 iGDK+ znK/iYnofBEy1R8kFASc/t4nob//jPrv45Ttb7crlMhJ6K7my1yoepgGti02BrCq9xVpArzAh0JJywjL /pJZs D+XsSeEb3Rrp5niaLGdtgz1ymc4HsoGx1LSNm8/G9gmV7xH03ebNZGxISYvuW5kIf7fWtP/+8eQC6ltD 6i97Q hVCP6Fst2Qbq55z6HY1MqMW5Gc8B8AflXceHA3NJM6++0kSOJxHIgQlbq9R8gxvx/ifAcgayBTePWn9a X2kHJ 0tGoxq2ySwLedbLRuJQQRNAMzLdk4cLvFKv69qZI9RN4ZPE7n2XqWN3j1B+HRjKiuDBg4/FP6krjSAB3 6GKSo k5Hs4uFGbEuxIKPG/gityc4v/XbnJCERMJJ36JtWUXb4uuzak+h5TMM65AnbaNHYGRXJTfmXaQlWLp04 fH5zl FVPs2K4kwALlzZdhO3uO9J/KSeJF+M7lvoXwwwzEW/2sh/89+3F3rvHRRLVKIRfLeLETldw2jd+89JpW KouAn giIi/N66Gmg1Zv2IlSZfI5SMA14Ob99y9OhNNVUstqmq6FfzJl1W39X9dhB4biT13E66xx0F9aRoe4Oa ug4/j //3z7+c1qac3Uv/WZrTh0nSyfye8g7nh1Ela1g64h/pMaiG3vfMA1djN6s/chzHcRxntri/cn/lOI7jO M5scX /l/spxHMdxnNni/km7kmR7xsC5r4C9orixn4LGxwIqlKg9x3EKXgS4Y+q2RAqkz3/j0dXfjX2LxQFa95 Pi/sr 3rdX6CisZAwtB2vFlnhiyKR8tFwW4iuyo62q49g1Qw/z5eQ4sr+K2uxzE3/q75V8kspi3qPsnT2Hbbna 6cmKi 1+wGdJKH02Tzi+X+gkJm5YH8Nbk7SL2yojdP6mlb5Y2gIWpQKsdJrhD3dvJSPm1Sa/2V+xcGkLjO33DK GaR+v 4+/0s1Lle/r34aY6dEpcUmFQJuJpQkSrD2x6r/bYqvTe1m6HstHwBAZVWcsToNz0Kchg4Idr/zj31aI7 6wc9/ q2VUbtPujoy0dUfjYbSImmyhqPlrl3bv5Fqz9PS85t7FkRCh9dsXxjZ9j/pjbpYGfrI7gIDxx4EQk6+w j1L9P 5QnNe2S1DG/9BtovEMIHbCf55g6wIn6ZrdRT1fs570ZlibRKyNVLVIPOMtfmqxxWM8dnOLavTr8PLa+b krflY +81mM/lrx9jTL3X8q5ZdSXNXyjZiaMs/JkgBpdKxelDXHKKrOl8XIYPOXRSXqRFCiC3XenaMJViUZC0P NfFaP LYPfhLalfDnsbBRxJ7MVuLPpaBp7rpG49aY/VX/anDsQ31NH1SwQHhJDoGPLjWhJrirLA0W/BTlNHek4 b2Vi4 dDwjDO238XM7NjHOBMSyxK2XDucssny+LwMBqWlwLBIPc0sKDNtvhrceQmdRnx1zlrI9WCey28gkNQsD ZqYdt tTsaRIJvFXZgkOiuN+6uJ/se2Hq1U+ry5vMB3wvUHHhqeiEemtHZbOJxEVrGXL4Qg0d9uH36hkWUKOtG lofiW aPgeDLvVJl9MqeSEBvLLafoOkYQ2D0jdo5xnVex5W4GQmglyIw+VjqEMhInlIESxxe+mJ50pA9MVpKEn YdFbD vPxgiSjPa9HzUFVCcOxIJomNN/j5OD+aqK/CgHAT7xm4wE5YAlsg3UU6mOhR8etW4WgvG0VRvjQNun3K ma9po l8nwUORLnb35yNxulUdx5MungkWFnZH8UleRc1+/qqbKseOskEAnZ25QUBShE7tMbZfDbaON5NMrQsfP kiskw 1QNu6mcqAchcNrdif9pXTbVj+zWYzRCmWxXKc1+D+aqK/3b1aTN4rJ9LMEDdDCk+gTpKHg7UeM2k955q PNqpT dfh3T3qFq5tbdrbNRrM2Ntx2nY8wpadySTG5iWWQLQNiM56lKObIq0N0soo1G47CW6Fu46uSRTOSHlku VwhTo ecQAyoZvRHjgoLxMXbPdJMad4nbGgT3LiUQIbCR88FMDtjqHM3jBww6LnigyF378G/xG4MoPDb+Pg7jX JJy0y hBhN2WVLHZOjH38MCsRAXYT4Au+n4d3mmrO+OlUkmzQ5/5W6/AdY1kxw0rAbxTEweYhtK1v37T6Ugl2p o7zpL Vdd2lhkTIZMliIGYfQWQYiYXR5sZDOzOnuq7Z9ubRWeJjIcWOn0SrEjkYM2G48rfNoaoMvqD4aVBy5n3 qsr8a eTTOpzs3RTXooRBSSPeJl1uq9MpP0iWu8HIPNFZxmbRDZkOv+uz+LIbnVPhAQWhftqH0hvlGSV85VuPN +Ptm8 zzWGctM4Mp8oBSx9+r1x9iYqo0g/MM4t+X5u6SXAbMLbEHFMCH3pdO6Gec2RFgNPQqHPk+E8o7bzaCPV mqjBJ O/Kku6tPnZn5k/Rt8R2w8i+qth/7xRpRd8eLTT8r5ci8fZ7rwMykOTyAjFCFjHOMvd9GpDzT1SLgcNx8 Yi1gg zjK54b2vdG9WZi+gnp+7olaSCr/pyK4ltOo9mNxguXJfSGsSHRzK7zvTFN8WK4afsX8hIQkLHkr1NMYz Z1pqV VSmMitZUX9hGGehN+eR9vRmOP55oZ+A4Obi/Ln6Kshda7YoqZTNOql9c1k/WcckGnPq9AmumiLDM4A1p Uzakp DJE/6KoTBPLx6WCOrtnHe/y4xvH2rtR9WbWLDDW16XGxbkVFfZ4Aautz4epw43a3AZQHkZA0InMhwWRZ esxNV gUHHkHPCs4OJW9ykbaforsEQvyWwpG2Ats+ca/WWxBN6zZnu+hVgkI4TFmc1Hm6YtJDhJEhStkhWXGmm TmCri 9zUc3m4UKkFm1WzIAozOqLCqcROzuKzc9qfYUWQNHI1VcGCosEfWCjHkk12sMxw9xjrcLSkGbzJOuWwk 91V9m DvDG0YhxuvgcLMVoXEAt5xYow/f8qVMd84kJouTwg9zF+mUpuOotfevZklkuLfj5+Mq5jFyxW8RAmIWu YvPoC 6qFzBZy/jLcX5m/GobeyF/1B2eta+Mr9x5j1Ij29UMIWgaSfE+/epCJWdNYVFtYEgNs5kEJucupy40BT CUpFo gUdhiq5bf2dfUmCwDV1thG6KRmZRpwsOsfLlHgGiBBY6Vl18Q+j8eBSDze1iYf3ots2xyplGDrD5F4/X xZRTQ VCn4yRaFguBnJy332LIDSa0vFx0iAZcl6Ht5z4Hwk40hVhdHZzdt95ucL+2drUn4cp9V/3rVbF3uLVrK gMUzc R5NhTnxMFlXhIRG5gntdiTC/cXGR+sZqBA13d3EeeXKF8qU9PaQf6f4ZjvmBOLEOd9fXqh9CItdB74s/ f/8en xpaITrX11Uit7jYCqYyo2sTcUc9DMYjRdlSifajL4TNeeGVmtFU2D6wiUw8lVma9g78/zr5Q4wjxg99R 9E+N0 MlFXX+btxfmb+67rRG/ohjVQvcowV83BAadz1ul6Fi6ILofP4cZcQFiOBGhMIIWToZYuzDnGgNusFxcx RnclU L1RM52j/OJNcoDZg9IjGueX74BjmBJOvaCeNE2TRVO8nzEOUODsCA4k0UdTbROdiaBYPEMavqqbkKbUi BRDW1 Taq3spmRm3jgKg3BoNeahpCEipr5vzQ8I8pLyJx7VEbFl7nxVthyOkivd5DTFnAQ5DG4R3QoaRdSYbfV kmJ4a qLhHTdahvr0FH0g8wZJ2U7oI5LEc/qUmXRgbYxyLquvV+wk5V0N+8N7Q2j9f5iwlzkAKrKmOQNYAeRBa X9jrb e7mcPeApI1SjyqzYvsNdkLY5GMlpJ7lKxGdJX7fDlLjv70uExDNNCGsoixheOJA3cbAjwjrcjUkEsRMN LfTLY 3M7sB2PxwdaXSPuPdcKb+Wb8z2g1aPdWbSgCb6Ti/Jm18LC6mcqfw5Q088nbY4Nifb6irtXMUNx0RY5w 0U0Gh WH8RuUezKn+vslykyk7O2YkTdubEm6oGZ+3F/AVzVfVhSulpmyt8e9yj3Wmc8D3GCFKGiALAImTuMfxx 4MnJS TuppPRz0m0lIx5JRvfMwy3HtNZBhttavbP/FUeMGl8KU17yU6/9V5bMBGFtCAdAIqHbU4r6AT83EOHz7 iGsj8 pCGAtzZRX85+bDTO1JRTHlQNjWSmem1Ey6xn8hvKUE5iBDl7/Rzqcp+9ZBLh6bvaQ2temgtXeUSo1ybC f4s/G pcycj6wlLBIy5kiY53hSzDYLrBfoh2NARD0zNc9mvNc1c0LW7ZCZ0exVGw6OWAVTniKgK22VFWSDzyJj r0NOa p1Pza45gR14Bw2s5Ajtol5anXhmIL6MD/b614eD68OPrNcVwmn8YmuMvfwS4uWX8zf5C18wub/qPnUHo jMoxV SF9KMvWWmDdalZJLZZictuLz4HQk+tdwr85zV9qBzOGz2fkbNtOeLv5kpIXfRIKzExHVOxqcaovtAEQs 7OzdA r9kKAbcRBy0wPfSm0kP7ykVPhtpeapcClQSUUaY7qloO3YV8DDqiazUpBxlObOC+v1eqPR+EPDnBlMhE /PUWK TSgKHkkYl0p2tLePqY9c+4nrIaVZrDmCX46eRWR2eZIo+nX6aPk3MpaZDKQe3rL1CO7s0NPGdfPx06UH LQqHA 3rPx0JxLWvu1UBRCPlqaM6kswUrFmJwbp7egWVWmYSFict/TGvbepGkr7BswXXM4DNvUdqPLX/X1Fbi3 KOZFB EUjJuHDB5PJLy5oTEXrJpi/++FbE2yjaGFKOSwDiVWBkRnLQ+BdDHgdL/kkDcvLGirp7nydYQJSFPlWM iHfJI j4Vb3oD/3h2YHNOC6DqZnjZZOk4vekRsl//LmDLfewq4HCYNkkWh7O9OgUKjxnO26u1hH7pjvuznDHT0 BwZna 1jjBm1d1BFkbiq6djt/Vs07fOg/En6HoQU0ordfA7Jyn/Qz1en5tV69joPBOEmWq/hZ+iqxvKlUTwTxc WaT3Z UtjkibbcW8Vq96p6f7apv0+/5/y0J+uh84DQn0JND/ZHhXrq6a1KShYqpoEYg6l3m08k7bsnWxdm9YtL ssQun qNDiOJYiZOlH/qhZ/1iSXxB6xbr5xKVD0maI46K/c1rNf7VDBz7YmYwgZZmLOhSM8bl8KCVAP46cM0In Q8fPu DhRbQqNC1txE5mKsz1o/P2ws3cWIV/J/IPZJfszsBSlhwn9es6weetyT+QK5xj7qT4ioVpXQvGD2Xt6q vi4mK auyzIAiFJeItjk/C7Xq696kyj9EPfzNbwpy1Em3+ftkdXx7uP5yUq6exb13D6LfRVpB8v4SGM/ryqn2u dYYyW a0o7An9oRXsrw0rUG+QsXAP9kuR0HO2+Atk7U4XP+KROS+hHw3Qr/2dyy6/Ugj3H7wp1bocGxakVlNK8 /qBAt xjb6Ian0BIM9Wji44ETVIfKqC2gt23uXRFilMUQ3e4z0YSHR5RizmefeU9LyTFe9YErluU31Ql9iq31i hFLaS UQiAE7RssdDA79UJki0ti0MnuUp3MDZhGTgejG6o583RXVB7D3xHGtgqKxyLoSn6eekU50n0tgtiiv8v 5N2tt HvdY3fqqJgAIvzdozXMvi/w60As1GSqo6JPXt3VL3tQlBfif5D0BIptCgLZHngrLjjwFiH4rvYFtSnEH 7k9DH XmF70uQ4SBRxVZGFcFd4e610I7H2Fm62agF3wEBwNrKx1qSGUtoYIWibHp50wNkxnK03fZY0J8Zonmfi MsnPU sIHpi5UJohTtA9iFUSmMr/N/+AFF1biW/luIdKU33Qwuwnp8OqGhVs+jgJ41UAGwoIWJMpIIdS8+h/f/ KUcHG HYwdEvZ+hQe7gXT4sJo/6XwgDIUaUW40ARtmip7vWYBU+tta4xRGl1k4EkqJOCLw8rycWLxDtEwD1LJt djVoB aePStYD4/v4wtIGQkFDOrcmW8i1qIL3m2bSAsZ/S7WoeYK6sVT6OtI0al/FaUVuNpiKtxTbk5hy3SN2O 4P7pI zsRiBHAuiiSXPYTd7tEbLB6JI8dnx26ucf4fgawk/QwGsMqllY3d1EliAebalt9LeAeiIDF/tfz2cHoy q4zf5 42UNmProJsGk+unZ7lnV3I29+lRi43jWFFqTEH1nuMGlC8Q4FiMa1ZVJDM7goe9M0wjtzIfEugrhIEzI MVR/c 68qp/DhM2T+kZ/hn/OdxjpkHlFjPJGAHllZQXd+ofQHkmBnzRSmsn3+bnhlnnyF8GlJz2MC2Q4wDsJb7 +9c+e k5dFpou/bxz2pjMCr7Imb9n4Jmv1lYSVchLqRCYlZTLavy4Bp5KX9r0AKCY7nERgGs3Ku+K7n+Lo/RVf /BRbE UGAfse5ilZHd+plyrWZfMT4zffQtpD9kod2UnIo8hme70GPt5QifezuOr2UWrPcf1bjrdxpL3PZgZA+w N5Vxf wB9HA9j4kuoIGoKoYgA3cxVyKnordRyzo97u7ONpUYXbj8VgF/kIkvqNhXWg0FL5ngNZT3mgfslu2e6I 89/ri fiKWvLBpCygfOB3veDQF5wVo41xWCQdFuJLez2zEI8N1rCv+Gi6QVtDWzAKRCkABxpr8KF0W3yKtlQKZ TYxbG O7tOi25BNoWvItlNJueZZD78F/bdbpzZvAYroRPVlFrRYCoE3FJpUxTepHU3nGorUwjTiAQo3m86H4kR bLiws iGHmF7z9hdlUZmPDoPoSAONhD61NkgB8nP2wLobg0Jd55xt8/f6wDN7+58zxict8wfBpGw+tTJ5dC1xN x+mQX nYJsESBT8B13dnPT6QXSi9dnNn8DPYCFitTl26ZAVfux8lDavBv0twvZk8azRdExBlRxi0AK1oWLyoMe P5qFd SSL3syfJh512cs5q/dF3vqP8ZSbOQ0gwZVP/SJPALA3tuV9gN5n+/mY6HVEKTVo698J5ncFD/teq4moo FYNuD jLvK0eceFK0gG/PzJsrKF9bDUHqpabE7ecYp6ol7L4xyUW01kiwuQG8zgnHtcy8/ilQexaW3bHP6ZEAD YnIfX 6Q7xYIyyeyratq/bEdygGv7UsiHmzvVN2suHtPi51rWt+82S6UNMKJT/xS802tSvj4ELpeq9VmWY9fhY ShMmX NsvRBc6r5EwdspB2tVPXXNa4SUbXUlCCRU2SJ9GzeW1DNPN0VNEHbi5DjUO9b1qJgYUAzEa738Bk5z4b 79GXZ MfKIJcjmLbqkWHGHztjYfS41kzd/ikmT9cBbZXioZRlp+Ul6+//+hgctHFzuM59KPZMKWIie4O28Zpo1 NJ/Eo OpJkUHkW6PP7w4VDBIT8eS2JSk0hnPc/5HBdvRaDDAbEAo6i2HuIklicQ2xhhAjmSNz56lIBg9OupzCb 5DDA+ h8Dspgcwr+Jza7ElvtTmLcWTt/x21CC4KMqRVzIdeOEm5OIpbtpogsMcrkDVIG7yP7/rYK/D4sAFf1dT I6XB8 /U4iFoXUbZwYKBeHhi6xYoCryw4A04oAbqNgeMTVaUUAfeyX65j3mP2Si/NCPq0CI7AU42zvQr8r0HlC Pfv3y dA/bXymSE81XW7epL8Pmq/b5tLwbooa/Ly7vw1gmKbbHnOJ9EcjFhxe39EDp732auMjmLH16GIwWXW/r wiP58 +yBdvnbSTomWFYO5RMigHE5I05MWXYUfml27AUf80zENp4PDzRXZ4gS1n4PlO8Vo3yMNr3IiHgg/lt4O SunF7 xgTKdbg7RJsvWrRK2pX5nQnJg3BJ1tvMmkx7hYRq+bIL4JqkCY6Va+DtP7/8nuz1c4+92toemvfLT/Kr n86G/ Qvyn0ol6niP3qMpL+9vjJOKubfk9fOxxfr97n6a9P/m/ccwZnfPlTGIm6aoU75sRTjcjmT/jRUaEOSh7 oA1PH Arsenio+smoGGFpSKgLhN5Gq4s2OnEJMDGg2AxS3PkFv55Xl1tTesHPyXnYoU3KEXWEIPdz38Fna+2b/E/r6 OYCvM Z1iy72yHzQ6aloxMErUOzyVde5so8oX3B7wmTIXTXTk4Vt447kxIcf7wPkP5qbv11s0KqE613hUA1A/X c2trq TWyRxDV4tyUj8FkTDAzjl0nh5bguzWFi86RQ1dhiiPriDCaeESjxN8zi933auUxLBAli4W37IEHxhVER FCWsW F1ijezGUBLz1vADhjgdrtpEdwak45ecI2hp+j6ZNanBJ+rIjMxftllklrBi6ScwWkcziF2RVcrsAdmsO RL9Xa AAzlxdXdU/cPPwm3oOJVBvmi8mC5czgjBQLkvklASA0tT80ywas6Xmc6xqEa50yzb+L7/69/bfv/mmHL 7/cPD T8E+voi1eGc2+guille/RaNzrQwBoynnFFQ8wk8tIiSNqNNKO3UZ78P1r5LD5DBRcwZe0otZufHeLALO0c YXkAV Nr8gjc70TLKOPat+mfDgTYN8DFWN589ERUzgVtzv53pIcR04/P66eYQnasLyPAchTbn9q3XoYFbHxWh6 dmp9j Y3lKHkrxnurpXL44zBmayVwvWOUzzUIH6/j4sZI2NufpbsH8KzLbFARHy8VYey8I4cUQ67DY03zQpJFl WdIzh 8CkclmB34rftgupi6qZmo9MW0YpdhZh+wUyREZRwFNGEfYgp0I5iaVjmYZ52+Urz47mFXxlcG4ZCrfwB wniIq l2FXHZ9NWqH07WjTeSJjsfasEOm5La+T5k+JGOLp60guZFEwoRNzcRKNDn65gxZXVRjxORz5I2ygYDmi wkgkO TnvQbbAppSzwAnnKESI2Gv4X9AaTUV4YCmyqq+4FxiYY8tiP56AUuwDwdyv2/ytTH1EtLo5YVIc4Vcj+ VY5P8 MlBs/vs+EM/h7s6oGkKKxGsT2K8160ZCObbT8o/eRGCITZyoqOhQ6xcZu6DSUjYElYcjvd8zxjN4d3Xs qBYeQ I4Z0GUFOwe8UktM4vyfaiP1d8fOx0n6hAe2KwoalMsElGfk6P5/DZOk7NSzWs737llGD5Zscm46jsUrB bjjgk 5QmneKxkKirny3CxFcgC4bZJUHjSjPTLV6MLItKcF80XmiNkrjeiE1+w21Bir0Dmz3QZcdh+/HDVSGp/ YIpGN jQ2+tHN7A85Xv4iFkXb1WdagZngtJQbLc51qkcAdBSn5RAScGjviWSIp+rGrjAx5EpNkBaf3asNB4ggT Sbmxe cW/A678QF3JghufTO8k/rkyIyrpIQEOfcq9/HjttoW3WW8tF90c3LU22RjQcmJ3KeENvLPKtYhxViuAy Yazmc cvuuXu8rPqtZIA9CvAObM4TbAGeKQXdQqj1ZwhdZqQl3nAcS+tG24VuDiEEV9PgBhNLwuiIe4jpIhqts 6/y3u uRwruD5mgwfbrUXHdV1dd77ePV5Bc2HMNLsLQkm8ReL9J3pulz357cMrIT10ufq+3//cpT9PxySKl1zr sfMCv UKm73RCMp5yP6Lf+pWP2/BSeIn1oc/xax39t4EW0rKVtsBwRUf2agHHs3ObRYHqfORFcki+NhJzpmmBN RoEaS IsL2kySdGOTa8Fp1dIQUIrJMmlEeQBQzXodx0VPWbMNWcJkHgtZZC04Lg3MDluizhqySXH9NSa6nwtoc 88O/j YuNEa5hEX0mI/T6xXMdYTwLGyWOO8ycBZQJh+oU4sV781pdATF19+/phWyqbAtWUhW25lgxdvhoyFbnS 6e2ss ImpS01LTMgj3WYsH1iTxtbTJ4QoOjWJ9+qnox74HCMOaOLTNGVbXaAS3P3ThbKhxC3dYqbh/wS18Wnjm KkFoz Yzx8KBf/X57R+3luotjzRDkcuUOocKfSmAOqTBda6mfA9qCgCVxtOs6puqNep6z20dLXSNWyiE8Q3D/T Soq12 20/7sYBoaD02YqB4XcpqmcFGDAp3hxNCBsYkv8aHNQupj27IE5NQ7llr/ivv/1ogsA08b3ncjbG3Pq04 Fytqn ragr4rP9K+5ao5b5yDV/gMHvKsItD4PQGaNtUSyJ/n95YICyiwtISJovnCQFy6JF2yWfB7OiKYGqjq1x B8MjS QFmglCEKuPqSESm4+k9Zg4GwNQwDWejT+cWsl5c95LlwJXSO0fZZmpPwFGWO+y1abAZeTK0c/hmp5voD aA/OV Fnh1uEGoAEkkwHck6aH+CR6lrTt67HPXpgDvsM9a2T8LNcmlq+X2iKedyf+nP6LtbX796lW0FOKf2CDa YQonD IYFteI3JM2ie1HHI7qOIpEpBIh/11K8h2xNrqOlB7sF/iElrVKI7OQ2ZetC09BJQWaNIydL30fVkJLPW CBcJB DWhLvShV5j7nCDsdFXxsrw/8VkkvFHQ8Nzj9YIT4/oG4u460+xezSjLr2e4/vAfdqj6EKIehGkwybD63 DcNaT Z9VL8Zm4Wf1+CXaJxM27G1iWcWZPVMI/4uj08jYfF9+0SfvXvf/lBe5DYrCbcbLpa+FU0+LsWk7mMYac JVMcp 63swUIsuZUqQfMENbId0K4JPgoIaal3xjVJUW9G75xMujyotW+EC3NlsaCB9BJ2fl13+vzX4H9iZ6AdU Vv9lI Ew64omzxdVFCzSyrtpSKGHfl0fXcPOJmu7VnUDtkCScWJ/bupXqPoY3f6TIEM3Nf1yPeK9kfseVI9jhX +RNRM 2YLXZY9IfSeKcRk9KBRfEQljRwYGTpqPl7NH3DxNt+/To/vqWg2+2spz6DARx+7Vbfo8AivIE3AuUZAo 1Z4tC 4VCwBr147SFiTtCTrYeNOQKKv5t699dTLekPxfvEt7nFfqZGi+I+1JD84inOLtXZfFjRuNFBTMmy6cJB lrLgH z75NmC6JF+mGTMd0p7WnI2MZqhkyiBfgn9rbks1Uye+ZiaxuhZhbu4ZRTTPMigpj7R9wNBYxcEoCHwhw XoBjh Raji+UyprV/twPswoiuok2wl7MAXb2c1GKAdBhubx9udLyscsiWxsY84exz5+bfeW1oPj65dhblQn9uXb EFwVQ YOBENTL9R0g3pfvzF2Dd61MtJ3O5YQoGREURq5QUkvIcBCb1E4vAsoAHQaWpzPBq/6k8bwv2ktH/SNm8 EtF7+ S24Hpt9GDh0OWEyUtkLaSpUVb1PhP1pk6d/AYTFpv8F/j14UMciwejoUPg96PY2oKX4vfT2FK4IqIC6R WKLV5 Dc+s1gfztvja0E0Rr8Lnb792cohHVvvHtq8ENKHPhGKwmSRyznUHaXhXc610RmmAOEGA6zjG3ACzten5 stp1j QtbK13RyoZx+BCjyhWoV5lSeOLvQw8hZNHnaMFi1bridmq0/MOYK8YRb4LOaVFrhRXI8/uttTK17NcNk YJ09q kQsrms2+0uJ5EmCkQ6Oy0CDQ8DmBH9i0mxqPifHAaDC00Pz/zq60h+xX7ZvimOZeHcet3OfPEAIsCVZt Sj9fX 9vRRXRePC3IuROTb85oquSWCf2VENGcq0lHU9Ya4PERKsAOHlEEwjvqAVeJXuZIQ6AVFtCBLJQ1SvwPT oDy9g GLEBE1bSvCptGkE2WQFlZ3nmj7orhAO1U1WXs3qI9EIOeXpNRYV0uOjgnZCXtDdUTAzbRQcnEJy7kIaL okWiW zaZG1saQ759z1b1zuTVRuTr5dsaYF7M8ZZETFf5IhNi71GZdJXf6BkTydmPz9Gu9JRM3cFs0/mxwqxQ8 at7+F Uvj1+YFulX2q+IbAP1O5cUPhy5I7Ow7xF64Yc8nuhuRuVczSh7ogAusJZBOlIu4Nmq1jPxhwDRtCWMMk ppDeW ilIYVgOkBvoXghcyHJycnOlPEknqlEBgp+5Cjw0yphSEcqBCawy53MeQDfDmCNsmDeIthoUqWLOrokPb utlSb fiXDMv4K+tEXpY9CN09jlBZahLyTLr7xOAb8lVEB2fUVPpQYVjWJTPamIRTS+UTwCDVn543CV5Ahji7b DHlEm DHiWTRvPB6HhbFFbmdJtStpaQsnVtHiVUE04Bw76tobbkg+FHN4pIl332FebsmnO3ryDjaWfx7hHOCNw HN8fB hh2qClObwJxtWHExiH26mkAoby5+mMGHNa22/m0odxTHvm61NcLxP17wP3TPInTThz0q7FALsBDHuavg dvSkN m74HGyS07jRTMsewb8gQFpirVfCauZQytU+GtxSIQAdbBRIIoVlE90loqQoEfxhPUVWpQCXLR1+Cxt69 W1Uyf RHkUBbzH3Hsb6hXZN219bq9bDUr48E9+gQDtt7FMJzhjXiyMxO+ey1RPDrKb0gmkMeNsbzxNkkhJpRsx Thor+z r9lt7Heh/k33fZrPIH8rA67W32yDRdkGODTtsIQOmpN26zGIajpHXcJFDx0CXicz14s+530E+otahfWx 37GsR igaPxqIGfTHd5KQtAPASjVYRbtlrifK0gl8xUFOqB5o5vCkZ8NuGxOm+GK7/Spldy3fHCDFIHu51HtNQ dSEuX VuxWZPGzQHAvG6EHgzDn4HD/0JpuugBfGeeyVFISXwACnNZ6JR6n+OoVQJemT3U9ULdDVTW/VGaUhVQL +o95h HtaeWsP5yyfW4QtkpEv+1efWXQ+MgV9t7//27l34/e70g7E57EqTcBwKRegB9BkbkIQRgcxhYewccyke OmQco SzSXui8k4NjAVI2aByjsYf64CB1Br0iKthdBYQbfcqgd3ErnWko7xyCKWRlHB1xfpZE5MJEpsezd4+9X nc94Z ZYko4g4V2NTnXVJ+9dyiCpaB0F2CjTXvYF0HW2UOYcZ3ADS5won1mKDQgCDumRQnQRpn5IcfxuZdD3Wa vVJkJ pktrhsWInkTC8ky202YAHIAlhf+kdLPF5TOyLNBZOBd07QplvW820tHzXwNBKgCA+tPdHX8lVie3wItq QX/XC Ry9Bi1kMrc9n5/36kOvVKRds4FlmQZV0p39IyD8eX+o1kYDB+5HjpwC6qyNGPrkFoLBzX7opyCODORwe O4eY3 RQsGQYlbqLKXZzy9LkBXB5iLrzbLc2mcUqMD/Tuler0Ok9z7ecTFxvAfJBm1zRhMbc0hkO5i+QrXsbkq m8+cR LbBpasGDe2jEWjt8Dc5QFdRiyeDUM8+BIpoRibFFZkLBpkU412NTzYeJWy/yZtlx4uIZbuKt43Uu6+7i 8DojW e0pLlydr6/QG/GjTyH/vcWzhsqcpUexRvloTZzWWJ2kIcLadGBgRUr0f50nbfi8EMVnJAPPzUdySyo3d iCw8h 9GmeAQlnHAwV93+/r6+v1+q8ZGpV1Cdp7FzrWjzehTZw9iiSaWHIZ635+trlsZA6cKVdhZafT5YXBsYb DJgwY dKaysYvLGvSQ/TUC2cdDnMcTf+Lf4zZpVNpo1dhU4MZolX6mruC+eHo0U2iDYGCmGcns+YC2GGd96oLt tFoQG +8lKhRZ4MCXqANf6YiJWZ4WU3F7JSIy5ibx1ps8eCXwJzVQHUlwnGeVY4qq7fZ3970WC2HjwQcXlFk5O QUcsO z2CBHaJkPJMvsWtN0reu352NS9O/WWWt7Pid7Zz4R/Co4DW19DJJ78jIxKeiOjW1ZZoTisKcFae+vJ4X ZC/5U lBDoftSp7OzKXMLqT7qsskL4GAYZBXsI6804s8Hh2Zeabmr8m5FHv5bJA50X/dAiw8F4aFvDd4iX8BjT s0IBq C0OYOc5SYGaJjhMaDPz3pCDBTMBWvadiddBCFsQH7EKgDCPjjWkdHZPTEiN0osnIrXHnroR9viV7twcP SrpmC jtllur8p1DUiox2Tc1lMiyRedKRNAp83SRPU4dEBcMl3ViXcr1Xkh1BQ+g4mWh98Mb2gJh+JrNitw+uJ YVpgM cQtMB205iBPAhtgAGZi66+EGDXi5ffK5o/lwFucKsUPGrh+BXIRKPjx8//l/uH2J+WT6tMVo8T/Tootie OowpH G+8rSe6uZ4LvVtSLQmQtf401ZsrZdF9E5fO+AY9I/GMnJSMxY0AqV19NNuZCNF6gth/rP2hXjGXqi4dl 3T19v 1QdvlNnpzK+rSfubOoC1nq5alb0L+ac/kpw7e9KHFcFN8+ePNntdkV+CPaWCTWGM0rrKQJW7OQtuP2iW VhYgD FQOwf+o/IBTXkuJ6u6Z9VRrdik4bjpDdOYdpIewIuB42Kju6YkFBac4b8IeOPV1+/r4wA9SQhQkOGO0p xkZ2/ 1PcqIufzNdDQsMUn1yCGbuN4ogY0nSIk9Oab+NDhAL+sRtt5ekk4CKkWGrbo/svcX1QqP204UWgUcgmR b/C4S dYeHZCQ5YQyCDM2wJzBTlHMXFi5bbVw0ON6hayYVyCBaf8Pq64cLDvIxlrSKmF9nmU9gdAsjhN/GAtah sZDEI orZtElg2CA2HLW+eQgQ7JqSwj2W4joZ8WuCxcNmzmQYf7YU4Ja9nMQBnZt4QSx88UWIMeESAmauBjPgO 6XiI4 ZGRk9pTNvO1eaaL+KUAGpS53zbSW9Sg5hHYHb45gWNr75msFe6wtvjyIp8DGlxBzvBhtP0Ui6wGDIS1J xkHTl dUY0dEalXVkgH4A7mcKmdHvrzQjuuIpcsK2RsOUMJaUC7yRMdcMMc2FT3DmcjRzrLCY2cJFwcqwWqxbq zYDCQ hjpWKj7Uog8kOAbnTXfQqn2m+SyRbHwMxPr6Rb0NA26vfYHTf1ZLN83v3YUZtOXvelAPq4Lkf5Iv6/Pz aJcQ2 jEmmB1bKEHkTgWnJXBFkW7XQ9kEDjDiptuOzVqRTJsKe5kBh5mYNCCNpiz6094//oXvDpt4WfIJP3fYS pWd06 sMzpAaD71pBS86V2srQtXE6CYywuRpXoKhc8/uvDLiLQcB3PFLWOfouHK36TUX12TNx5W5ur2raMx1DN Mpkqq Xu4AV0KLXT834wvzu7+mBVnakiU5lVJaiXr8bYKHNRsVXo1zTgudo8z3bwBUACpbLOh0raKVcYP7hEMM y4RSy j9CSJBFDyk+D4oKP1L0j1ZR6ErHKgshVmtDaL5svqilvMSfxqvvdTBDrhx2oDNrBM9Bkvl8Q1WVvSw9X Zb/fF 4yLdbVg0talnV7hUZ8kPdcVNNkpqm4JUKYhuQY2t/OzQy1w+nfik06nf8AOCnRPGoCRB2srtik0n/++X IwnDY vGTQlEMfANmLrlW9xovay5jslA9sq2i9GolYPZmFIC31DO9RB0SUlTt8bnGk+rqxE4bfwxeV+MmsrzfH wfoY2 4htaSdgkR/gQFUy2RqZAqrKhMOVicE5UZl5GfOFrI8MGwJ0jhUSdP4BIoWX5f30hvYQddB4mO6DDlDdX XXE/Y V5U6PHiEX6tpezbfeZyp0OKjDBlUBFr9Xs8XNF1W7YMD4z10uS9jTVqH6o/k01DleQtkHg8wOtn2JM16 KJU8M aGkfvCEzIn0C5mVYcyCem2Kx0yqK1zkgpJUxdxyU04gl+GDwilbWNVBYATgrxS2i1AjaYqQG6/uwllhx CyrsZ 9KfQC8ioCdlS8vKxZ8aNeuQ8VQNE8bgyHy8ZeZjzM1C2HOKXccZuEVKhtBIWtfvjxR/tVgv6vLNgUGPZ mMqpC DCyUKusxN6rrrFh6/EFflmMPTrq/RBBDFt9OgXx+3b5beYQadF74bl5AZqAdYNhriPkO2CzLBUpS7zCX DWl3J KGDo1lOjh0lGMQwtSyjyLaDmf0Mt3a1MDIBUCQOPQNz2GyLq4B7J8gP8VVZAquHwtwMbs6xSAtxojbnf PKI8g xeWS4LKASSzhFL1PBvFT/hg92pxpWb16KbiHP+VF0n1yEe1irzvgobcVHpTFh6JbzdiwIXcJsnHfvlc2 fhyfD V5MF/IdQn+UL0jeCXFTYoYVeO9wVyEydS8zfZdxqegIgnlzeLLohSCuLEBAI7J9FF08m/wdcjQNxG0V9 0LS21 4fB8GmAbduIwZIT0O9EcUxop1/kNsIAqdwymYVj3R91o9ZyGlbnzZ3yjG4m8lPwVc4SvCHAOsHXQX39N QhGPt Ro1lIPNiCrd0xC+SlP9LLp0KgKY3+ve4ZSqG/TbbwUAQUQFNOKQiRrIHh+a2mZfF7PAR7wXcHnbQ9jv6 m/flr vViLBxqyhtmP3GNUskqVLLd0w2o3wYBoJNDgAkYkjU3wvysPw5MO6GMyhPh6dryfCwK+GzG8IGnyAoTn 9Sw+r vbURqOYiYONGR+ukHeQ/pi4/Mf/8MjiOVkMUCeLva6Mv1tlSeH4JwK8MK9g1zUxCGe6O+Pl3EkxGwb4W EBnVE ADRFTHSwTaA01lEIJ7PaIQLDnY8GbBSEiaGtpAfKE/m4LRxaNLdlXJa6sTx3HFOUV1hGm5Ds9UJn93b3 AW1VS x3y0yRNV5DNuvfzdUQ9AmFHTjuYs1tdhV/zSDAAsShC95Da9O4PsnlMEqGWuZtaI3ISpmtX/o7Ys5KE3 gbyaN +v2Om1tZ26lgTa0BrbwpV3MEtT0ylJ4MEqCXhKfJUAKQBfKh51k43pStLrKiVUvxsBTI9SL9owqQUgpk sjULU VGXlXMGHqBqddXRZarNKUsJc+nu48/++Pkzh8YDdeGHy4Z4wXTMxNM6LCofwfZEnC7YZIZpCCHHGBZVQ WKgjc vMVu0hBio4/A0wPI9+wcAMbFuRbDUGhwIJ4tVHIiL51RbYMKGeFVH1MW+LAWx0c2MkQJlPywT9orZk4o e0pHJ Lo/XD8gPhJa+NOfkK2oHIBQNNqI96oQRYIGwnr0iSqxrSx5g3DV/HV+KeayGIaD8lAvdY4YSnKkQVvIw lZdhF 6y6ykpvSyw3YpY4rt2HFJOInOkr4ON2N+nO3T9f/gkloegrbcjKeajSLKcZIhGzctimqE+t/m/OvklF3 2gT5J hipFZMpeYQzcxmU+tA4ileSkfYWtie2Vp9SqicoEgd3FkAkuxLtatF38SqdQfBiWt9PVbXtDHxPCKq3B CcSSb EgU5zzlKlYqqV6pJc24D943sH5qYxXuwNbYadmyBz5kLHAQBfyrf78A+4xQk7iQCm+BbSt5YUS+WIRuY NyFya KNNNOp+GM6rDz4hMRLqJxTGJYv5JG/LyB9g0toV6al4PzzME1JFQkx/XbvM++ObJOICPXcBY2iHj11IM zvXF9 ylmfaVZU/QgypoDaxH3aNO7aSaDfCk/Wb4F7NZX3+++Q53/AcDpWZ2P+iYFgPyeGVZFZLv1gZxb4KdQL kTDiG EnUVv2N1NbQHvzqS+75H4s7DBfgIIif1+IYWhWooNUZFkqBYT8QU2vUu5UyoXYGc2DQUvARIxTCHjYev DlJzy HvS3xmTgcc3OJkUJaTdXemlFxCtqi6ywb8J60knHf9ruqEml50JmOQw4tsZaWL5RqTbu6XT5vgi+Gj8T MxZD5 HwRn6CG+saUr58vGgJat4UwoNDsf2uFN643ZQAmL6kKm+/TgPvW+Iq9Fd+74ozAuHXnTZ5IntZPKBm2z LIynW 19lye9/uRLr6jc/i9b1baba+/fskTtnv/oMqArbiF6zb+Kij6hNv0y06pWHc4ngSN/4FIoLM6cS2v8ds bcpY+ 0ZzdWhHstZpkzVY997qBpkEowpYQ6/9M7iHy+/xR0c1djuh/4yTerzegEfC5wjLo5MxoWWOqG/l+Pa6p Uba5f /jjvFJsy72Qg/++bbf/uJy06fljq44wHly6z8DhY/Malw0gY/2S+MUvjwGhbmEQoqhQjmNHBAAhnlq1z eh1+Z wTOxbGECAYsIokjwDyAheYEACRZECuPM+L0zIAYGYg3LMcKvMOKMIrBiVfWZxFTYh8r5t2lm32/qelfd qvtxz c9lmfiJM5GTVdwabr6PR0LOdhu/c8/97sSNQ+V0Mz0U3G99KMQoHoZ2cg50rAs7/P1hQmfi3yV7glSqf 5OHro 5prQmZN77DG63/Nigel/pE1zWeq62+8APV3bx+PUgcEjy544Qjsh7kb3j/d7F0iibzPuva30E6uid0YmzHu fCR7s O3tm///e1htS2vUuISL4BSV6LhZm+eT7C23MIaAa8PqGgz4N8l17I9Aphs4Z+aJ2ai4ZGq1d+9IUX/w9 4zY+8 Mj8+pPIq1aVxi8i41qtn2jF2n/ildPMam/me0OqZbf83E+fRP5/7zdUL47/d0v7Cr8v/30JJ8IfnnIAZ UP6Kz NYjGDsou1Kx0fQ7MFbOk5OqHa5pr0mL/sG0SAk7xKIHoUbvDQwHtMTsKWjILUGQdVOWwjHgALSahNGYL KGArA oBMfM9jePdPcw1rqF2b4hL/ffYLO4/ZEWFJOW/hXklyzLXMixnceXjseN4+AmKq/wStBJyFWQryBHTAg okVkM +LVvtKIGPLExvK5CzzYbAwQOgP59ko5svryWeZdVmLcdy9oCZTM0WEbyKyN0upqN8JeiuErRyiLrfHcp 4PIW7 S5coP06C8swpBA0jAdEzHULEohOaM49TqibwRnnnd1Cg2rlmbk//bprJU1zzTQJEluDEunqwZdTu/O2j vw9Pp PoQZdmYdS6ZxSbqVpnj1m0zyPt6dvs9Y1/5RyXtycnBkglc5eUdI1BBiCNqYjtuzg3i8Q71kht8TjcAH 1hhHF Bk1okRqXnEqNCajmtfFaGjd6hYbo01b4yPa39HeR+gKeYH9vg6m7xPj/K5WIo1j4fCk10JN4uXmIwhez pqqoh 4QBIXT8m3ZHH/pdvp4HYKkDPAYkJT2JKXClpbft0ejVfvalTzwyFoyCTMh+BHMKkmxdzuGWQVPiOAQeo E3Ihf hNwfpIMcRtC28OA0UJyv5H5yC9FL7mLsI177UuF5gL86oOhJX66NwNE5FE50oW4eIXUYqpow7NAyBFYG EnIb5 9tq9qp5DQpuRXQt3p2fRwBH/EttKtiz7d86+pbbCipDvrXgOEJghSndUB7lXkPL1tXSFdeDPgztcsi7w LpL8t b9S6d/AEPCDvk3/C44L4VDecuaxYLx4ettvLoXG0GcpXx3GZtqJOck8CJf0NhSMVGILjvfdBeq1N+/Rl 2l5V4 /+YdHVynjh7bo7PvqMyDMxzcRhyju25XJ/l+j08JR7iXa3m35c/EG93EPVxRokPBicKX32bo57qp6562 [facility] V1lxr6m/9czuoMlds3UrZa8p8DQXhZTcsRilPvY2KJlRuVCG6GA1Ksa+OKP/uOWxoAj6P6RUAGHE9R5K TcOtS 2TRHoFG8ZXt0i8wHcDr+l1EkMBqkWz1CXmlBEgrPbMFrJVPDMYJ7RGt45V04jNXqHmZRnupdfu7wuBGa x4GLU FeQQ1wCV09aRj7FiqKFi0nRKq7y/j3HKjq8jg5k+SvMFkuHALnIvDj+1MK4PFU0Fk4pLg+vvxTY5pplU 7nvL2 XIOXPqmrYXX0ibidfbUXB1Obq7BZHEmLuQYCwsg4XIbTLzDo9wn1BNJUwLRkb5Hcd5EIeurdcHQobOhT DZbhk G24D+GHs989h3s2S3/JKgxhDqXNAZ3Xy5t1DB6ULgRT8PsxTpEdI/pcfjCJW4uw8UPDX8gs9X5GP1YOn ajHG+ 5ObYqWTGs8a8rCDfG2if64yMxjuIkA9LbCL+NoamhvYqF0+Gq3E7OeuQRpdfPjaJJRwPCFKG1Jyb0vIU OU2Ik 1IRwVdqJdAryJZ/sqJGYXoCPbwJssJHYQW/SceERtymTJapG90dlJGIPG5+36vTiTvg8fIrl8hwlOHTj VfEbJ zNFM4sJwnjvYg2FYwjhjY9EeyUjELd3Wabe6YDBcc0YMvYytLtM16y3n0Q8jfwbMfezSv1DTdiFC43tg IbviA ZgLkei5FvwPeO9z9VDYjPY8+UeiVBlJIZQi5JQVZmDXXiIiIZ8m3e6/errtwN1IsFrx1nBKKP0UXHDxk YkJyQ qLkTVP4TjKnGAd+LGXodo7LS0P9o72oLwZSxxkvs52sWrSiptVZZaiORhrjRjrMe25F5aBJKHsHGb+Bw FTvod 72WgLESFSdSXsGlYfqGYFRrl3+GbTgNdGp/XjXHlSacKP+35h1mRjanYKMIPzFzRLf0IJ518VBfH0UzB BNocO pf4aRsXK13IQgXfG2/Qhfb4JDB8iXrqf29f3NRpPqd5LEGTtlh0jhrBl7/L3ObvPEm4NctHw1UFkNrkQ TfffV p5P5fXM//aKGLtbL3x8D5oaUzOiucp5R83+S7XW9RiR3sOtexJLhcDtUD6WlTmTQdZmHhKe0YoR9TTqu a+7km zA7/AGtXA8vLU/W9DKDuHEbPthXUs0Hi7KcCsY05CX+0oPIgxgboN5F5xWcJUKdeDQZt2SwpuuLJwwJL HR2Ix xvcs94lJl0Vr62+7137zNn571pHlD2C/h2fChwbcsaCpRQ5EqqH7rMNPPquxOyS48JLd/FN5RYbaS9A6 uu6Dr 8INAoW32PX3+yI1u0HleLTFot68IR9LfuzoeFrMsHNeuy7ldH4uiTjMM30ho2bRaoBscuGWE2o3C8mNo bRa3V cQog2yAfIoSmWtiRQsv7zJoGGhqfolQ7yj1ir5QwbiUl96ze77J/NCpgW/xay9IoafRv2C9xlFr3wO7h hEWN7 irPXNnqboOQ0V5VVo0gofu3pUQBHxEGnCd2qerQbZadS0A8xgkmMRqi1tV66reOVzPXJ5QuNr8Q91mjn X7iq/ sVnEXnGgkArH14INvJtzszNQv0rq8PhFkHqHCKikly2OFPITZ9erquyLZTlOPot9B1K3Y7upNtPjPiOi ULq2V tuCmycMeUe2SwEkmlcbsDgC0ZEKPumRQReYZdrY/h7UeVHnRdRm8gJa6GrJbRuGkgtTTzLWuYu9Wp2hq fefTM t5TkqzeXsez5fcSXIuflGb4GotIp+PTAFsJmFZ/h/mvr3nVdlatWlkb3hKNIyyGuxyE70Xr1YBFZDe7z 3+SrO bQAhrk3AHfoOLJUGLnXphiiDxFWtJEIOvQisjJm/3QS/S/2UIluRAPU2BrZmSLvMgQ/gLNoT9nQcJITD W1oIa 0XTRFlbIfjg2pw0Zklhtdx1a37cTLkVlMDOyHztPQSHPBXCAy3wE7jcD1PqIbi5Y783nl3wNXTFKUpG2 6X0/N z343877e30077B4iqZd0pKHCz5Vns6+Klw0L8NnLi8tTsZcFX4vR/o8s4ZAwHSD8TxM8GDEfvZO1yPg/ IuDuw N1duYcY03jpjUkAtvPP04fTOIIYxMFWBBvGOelUVJ14yXzEk3GbGAWgNrASTcXYvpmNMVLY6X6BqdxfU 0KpBK uuYT8V8wnyg4hVAHpRwdHcOQ7RZVwc4WvXkaaHTpFQ+sbp6n+m9WvfbpQ9P66/x7CivO6Lb9iUCXD67a 6tRij jxpw49EQT4bBMIMDSBkcx/38//JrEHy8q7he5DPwSj/9JU8uhx0gaiUIHiTGpA2A/HR6CzRtZ/wTlTva he4yV UdzEVjjVsIDC86YJYbEP4EA9k/hzb98hBE0Bk2XVTZ76CfvfT4z6jN0mEESacJNyHZvMohKNhuLaKssB bJvfw Fyl3q+fMjEJ1MTxa91xJyig4aiQ6jj/Esteban/SV1rkYPEzNRSppeOIcAV5Mnb50538RNqsMVPst395fpNq vHCRX bbjx6Rt32GfR6xVIiOChbHJO2TwxpPZvfoyahQBRZmlExXBKi7GWGZOZVLxUxZePL0KeoPoIh6DnRCXv yJlLQ BHBx09z3GMUZKLALpQvbHhMqZiT60Ga6ygblidY+tVFKGhCANqMaqYdL5OmT5NOXEYZSJQIG6CSTXGKW iGtGX zx/RuUNxtsKz4k7ISothd1b8h4+VEmeJ9SS081jTyhySsMKxcjTD1tT5gBf7Og17z74rls8S4sAuJyb+ MSRNx pjnRV24gU7lkXBOQ8+FESSDOSRSRJIfCR7GD0qQix3Vrzu5VcNTtxKQVamVmr32/bL/4ufFKllPEZb1+ yOo3X 4wOg65TgJ+6c0iarjEyEpLyxa025rOngwAM6Tnnb+RQbw+unWjARfvLscrfivyKIAiCIIiaZAy/kiIG4 OhUxg MV1D53NZf3hDy3/ls++BKpE6QFRWOqD/z78EBwcEnzFTJHC2VTNyZqzSwx9nrt4aksvtGmkENEd4rrtl aBP7t LxgGQrlvXXQdEGGcd6Tq+xdEwKBnEyGLsxBs7ITPl7QUbkszi7Y8360g3zFUCHCw2y9eP9ibhpKw5H0r HkEAi xEIjhGhQDWcDumN1bWwC1gm31nf6zHfpLeTXus+lmvyK thiJvda55JDuBJDolCBw/siJJCgAM/bylIl2zd+HNqgKs4FTDJxud553hWw7bf2DteO80dSDCl6312Il db77a cl7XD4OPLzKTX2ChGzffK1UjDgjv91Hva/qUbFelOGodT0lNSnDEBOSFAckxc9+ZEMz5K6RQV+ubm+cC RH39+ aQLIg9rgb0wD28cm2/V0axc5Jc/MPzt/B6kl4e5tEcHpu1H0kI3MJdHRkrZ7306o+Bhcf3u3wzu5x/c9 Hlq3d PrEiPEFJZW1Yod+RRIS5Dg9n35BqKa1rYwP6ZlBN3MwyFIZzSd2TKDX4zI/I5K7n1pzqARyMpNLEl+2f H11XM Xl0rZ/2N656vORf82eUFsE5rwBUcZBWKVYUM0bp9MhMdGddBVu11Awj96gzhF6M2870rz7m56k6ZJSEj EoUQT S7vHBE6HnGCbG9hAY0BufBE670Av3+VfKVJOL5yemWoe5lXs1O/Q57i22c39Uv2U/UlfOCZpuQhyoR0o jiQOU Xv++Y1j2Jrzg9dxeAjCy8BVPr1KiiaN1lkshOFtU6CDTUA0JAjVt92G2te51tLv2SdNjnn8uibYntRr2 XfczQ AHnkAHuaVDJLOGCZ1sxxuYzJUJDblTyKkoytE9DoXt26lEGuy91MfANODzfh+TzkKrwVaILQ0MU22LAW LS9YR OtwNDIMOIaG1BNHAKQSDBsQrdzh4ZTkPPLmSFThZA95aJqlsb+09AyIGGSegfJ3QCCMMOrCr9Jhj7s/w Sz0eN yrFYxypTMrhgALDfwgYWmlUTdgAM191Y9m3ioWTkI72jG3mNEkWyjBKdW8fGoqNCWPnJQFN0Mj3WSsDm W1txm wc2MqTftR7TNnE9HD7xOHKmZUT78lwAQvLQg72FRtLsSVU3lqKpeDpvqlJzYbiRLMJcMVEaKevYYRgcA 1MgNT LdRHVPQ8ExVXDproLcKWJiluI5Ap8HCA7ez6JyXsOeBDHvo5AwPtjyAAkUu8ie7EF2EYij2AWU4UpJHS 5kb2J iYmRnTTNcx7VnVcepUIXKAiIsBFUrTXHdNREMIKxpiaRzFnmFCRLlKUOcSkbXKTxdJOd6LUTwOZSlK2U ldmlj HGFITc6DnCb9TODfNcgdzMEWCEOxBJGpZIPjT8LlIYC6EtHiUqPrMl8lhSXhFU9UFZhrqnnDR5gCm64v yZ6Ql sLGCh7xxCLXpECpAVFmDZJBOFtBCmWX1IZQEHOLOOVLaqJr6f29Zv9IrT7aU66T3v9o5lZ8YGfsNQQO2 46dFz cGfB5aozLrC+/3Ofd37+/f4601wjMGjQspfjRGLCcBlgogz5fTvEILBOKwRKIJFpXJSGGiac2uQVcrL+ CSxku wWtwJ/ZgxYygAcr9wESoTFCT/bJ0F2J3KRGo6JwaChRQuI0CxyjwnSCQEjVakkBeINSCw9ONumpWkpk7 953zm XlmGRm7MmlSlT11NgyDfyYmP6osTASOgWBtHsNP1EU/G2dYNtINr/FfKf6KRtcET3Jc3RKptc6zVD3d+ J0uC8 cCLhHKLK2p8EnnSWTjHfQVIvmu6XsMmwGrbRocnJIMRKPbos6VWljHXUu+M5ECBvUcru1sbEBm/85w4p tpieJ GDRaHBwUJ/C7O5iqywb29Bcs7I88IKyJ6U/AtvbT/dDs5AlJoXc712e9tCSXGRlqLD6bEkt3p4MOYykj 2++M5 9+WS5CJaHfKM+duT32O4lkhtKXIY2+g8Ni8LdwJ/DcWwm6kQvakQVikaSsquac71qJddlPz1ObeIMVt7 iXx34 47t8EfuTxOfyQv/Mo6aGwHLa3rRn9PK2sATPp/5HA31k2P64F4y3sIJqEf/SY2Hv5zUclhoS3jBRMbWY 34He9 Z0Mmkqd9FJk8s347J7K+lsW4D7Ac4zkeqoGGWQfsdD+ge7E7SyVZaDWAaUUS4CTnYT6CLM/EALCQTSIB 8kgHe ZTLnPUgTZ10AZ3gEnvaF61rS1dAadRc9X0WBD0eT0vHNyXc6RG1QfjGkySchZiHKZRf9jfBxaYmzLOVm EMiAt ZQQ6QK+QF+XCbHGMFy4JnKXkWKvMGuKIuHj4WPhtQ1xmMaX1Lhhb36QGsTHZKjpL7IN4NC3PnzVvfTcW hHmwH u8G+jNnXxIUxNHyLvHPl4Cn2Y20FA7Ss5O72SHvTMb1adpkqi/OuNtVwxxveJJDcUgYPAmUKpVJ3lXFp RgaRU WQ/fle0w4dMTxMPrVmGeEGBCTNp9YzJfcqX0Zz9Gy6Cq6Rs8WD9AOnHzDDg5FqAWiZM3YYUX4iHribdL j2hiz YY2Iw1kGEIeJ2lXIuBPRS1QIUdsJaKQDFPJLpChnCgoBJH28RUzMhCMSOQDZRaCzWA0zahriZYFhwN3s f6jHS EDV90JsxWUcc+2VRcKErR2pCHawiRZlLxJg9ah9LwRY5WOWr9VGDmpMLEhknJQSxm39FTAMEPKA0j1xJ rqO3U Iep+3fsdskzUXn0zAHkzClXWjZH7LffajU/Doyjv8Zg4O47WH2Wn8nwcF4BT91+nM9MsSK5WbJUmp1XM x9jNO AK3gkNxdSwaNoI4F8v7aB4TIYy7sBeXYPM8BoCHL6vRjJZtZzFO4zJGcmVSqfZgnLcTTPmv4gGuor9po 9jpbA 87w43YyV09r3FquBUeZBqDY+hJgqkSAV1OhjLSsZRkGb4F4or0pyfmJQsXYzMgk/gw5rColrogOfgoN1 5gPmL +ifkkH+J33wT5Wr6t/yD/Ov+ouI0TvIXEUr8QfdrMJm5jgItyTFWY9ZCFUP1MdgMFxVRtHd54GI0v5rG GrT2t R09nbaqOf4G+ICBmGmvH12PgFRD1eJgqmgqt4FwydwI5qJaYzc0l1Y6rg6GknS2vn758sZ8R/YD9p/YP HLgOk C0cucAUzxu+jbsvVNzKOiEculWgwO5QQE2TYltkQX85WIqjyTubTlufphG6b54PyOhrDsgPzMs0vTe3d Ox1ue yXrSZ7rffomu4g+xwH5Quvbiuu7D3+iCHnRINZ6txpukYqs8qs8Cgdt4tKFyTjgQ6xVu34uA0XXWf9Ed wvesF qtS0tc28dz3nK1pQtSd0S0wuPdhXXMFixJ6fw1ehe+wN4aZb99pClZxHj9AsU06LipC+F50gtYACEkHx qEB0T fefv6S/3H/G/LjVEKPuxDjeH4E7yL7SvsHene7J9ODwRu5OSKy1rBFLKJ6i/+IOOT7jRrFqfZ7I3hLb5 V/x5K FK0TeRe9IYJL6UOLXbwz5O/GzfYT6egDh+/NCXIuHLefo7UhpbVzQ6CtRqnjjOs/pzRETgyOzXn9AfMp tGK6J 8H33T8Bazo9wI9ywRG1hu+WRtSBiZKBboel6KeixMPZpXe1kIrf+O/TnBKUCXsTZhJDEpsTjyeREhKSd qQdEN aL2GWr1ydpeAKcxUhPhUyAMiUz3bR5jsgGp0WJefek19Rq42SjgR34Rd5ORxny5g/jrSDfRu5UuPzFkN zJPMv BsOrlltb4kxj0lo15W3fRoT5gf5cvxgdk7/aFqDS8vyxYhkGj+/Vx7qea9gBheOU7xYpcfWGdJG8qt1E s4vjF 30oKY2XRECLpT0BNJpLisQKgZlLFk7rxRlfLc0DLmuNN8fA9iWvKLMgwj7Hsi9VXdFJxZgTJzduVIVIH 8oIZb /yXllEWX/ZfVWEaqPqQXlU+NJ1D8ABKqy+dcBhZfcYz7d1xq0us0dXyyhvMKnNHBl5XS7w4iW4xYNC0B Wdl65 SD9bTXnFpAuiduo9ME5OrlS1l4XU/RnhE3bzDypx3hIiHuqr4rgIEWvcZ9iZZqS5NvyphMCL2/aYZbZY 3n2xx tRybvEeSd1sVC0Wt5unuenhmg538dxVjYs2F0st2B9T5wiD8oY3hd0RhEkwC5P28Svju3Niz5tBixdRp fNX21 ghf4vdCKBUmjno85n3u/tSZl5xt88cqxz8Oh7Orn1x+kM0z1NVxxO+04sU91cQUE5Kn1QVU0k/qv7sxb ePhAW yge+Z7EdMzlu5YKz6eWR8i6Oa8aAiCJAKTG/6YuJkkmZCZ/OwmwqLmGxuawNvmuIy8sMKe2l4Sgp0cGG +Ln/q cmkYTyAzkgyAwgkmoFwJ1d+akVqTHpTilqaYapoum/adup+CoUqjEqTepqaocqo+rAqt1q+msXKzQrUS tuK4t rqGvFq+JhZAoglHuwCFl0eNPzeJnBYLisGE0pLEKmJg4HdL1gmO6dCyixZz46zgKcvI6L6s6op27y8yx vJu9F b2Pvgq+hL7/v3q/9yNezZpVC4Tfma/U04BAw3PQViVQlYoBwVFVcdHKLpa/qN0RjEy3oowPIDw9nheTt sw1zL OJJc55pkrAui83w9wZTrZ86XrLxaD/5rUAOXXP9WuQn5LC7wNGGjrN77pD5Put7QlNxWfv9vbt+9uA3A Xcit0 U9DeoKG4l5flzr+R73Q4yXMSM1wZh2+Nj4+vkc+A74UZuGhzM2e/slkvq5XnkSlkX6doa3zwc3/vshu0 R7Zzu ES9331QlyKYB1IXainN/5eceTeYa5BM5rzZT1r91tka876p5Jdgp+Tj5x/pX+uf7d/wH/Tu8Eh28/kv+ 3P9t/ /7MGCN2xNT5IbYjQDH9acHsaPsjibYiAulEYFWcYEYaTfjMLSggUKdbsZrgsVMyH7XgzFgjUIYqvRJ+P gplbm DaFkgFjMMqOzerLTH6ONamCUXeAIOaHVWeQFG3WFW8ZOWWZwBiHCBdBWHvGVSzFCIoTNHxyx9CZKHcLB AwMDA 5QEGoQAJdNZUkCAjjPVPeZKOdIOhjHXSmNQYwMR3YBbYiJZLuADKqANjoFKFoKOBvun4KTHSlZMEiEVP 2NSAw CNHoSAAfZAfbVCOtWEUdHnk7FFRkPMZfPR2FZdPoQWLuOIG4BYKeKWMuKOCdxn2AEQFxWCBhGYE0VPQr MDAwM CUcEHwfZJPwFSEwNTj6NNYjOGUjKT0CGpVdPANaJGJ9XRPyWUCdWEXeyn7LXNElVFOnMSR3XHMeASZtR CBuDQ xjPNTzDLNpMhB8FUNiDUPqTI6VHjZfTOPiAKN1WAUnFIQtVCHhhi7SYRBbATQrDZt0FLTmSXMkSXXkFN owMDA fSJLeYXchVCOvBDZpHJ9WFlNgIVXaTKN5SwhxGUEfVXBbht8UGYWnFLOsHZd8NIKeOJQoCIXhJHpoCRI wMDAx RCP3QJSuYJCoBE8YVwQiQGMmDJGrIIzhRVLcLZVeix1JSKBzWXZaYXYkHWVpTSXhWZPrKSsvZEDxLGVh MTg5I CMhLILnUI5FSrTqDYQfBCPkGxeaSPFwGVKcfe5KMYMiBAAnPVE5GPKxVMDhTIYlYRjiNHNdBZDbIZV2U DAwMD CoJI4WOiFdXKMnJGF0MDiiSWTgUMOonl5ETVVdHSSlFIMvQHNhCTWlTAGaWVzfJKAhSCNzDMixQAGgDW AwIG4 LGvOqQWJbUKJ8GXniKGTzAKHwyn9XEEDfELNhYEalMhGlQTLjOEUkOKhnOVZbFYRrGXK4MRMyFAJxMR5 NCjAw TYEhBQTcTpQyPIJrINIztz7WLLInLSKpFNP8SFTzMHAwEHKvNEsfOURdWKCwVYFqVTZ8BYP9NCJBUbNt MDAwM VS6XpTjJTQcXGXreg2IQCZjPMKbNVm2GLEhCJMcGTQqUDjpBEQwWPQ5ESE0PBNgLQDtTG4QKlGzNMGoQ DYxOD owQSNfZFNweu7TICVcGSUoIpNzOYXgKSRnLMRqNMbfCXNuHGC0MwB3QFWmLLRbUQ1BGcRgZIKeWGk0UW UgMDA sOAGcxj5NRPHkQLAeDTJ8JbYjUUXvWQDnUNroUDDiWKUwNGd5MRUkYIFnFA8PHfFaBTDjWYB9VaRgKVU wMDAg po4ZVTThVUXoEnh8HVPcIZBrSLQiFNibUHSmOMNqXBh1ALZlYTByRT2WKzKhMMEqXyp6DaKtTRGuDAKe bg0KM KVrKNR9MYKhTTXvKMGeNGVsDNsjUITrNPW3QET8YBHeIPNrEG7MAeCvDYLyWek2VChjTPBmYQGxka1IV DAwMD V1FzkiEqYwJSPuTAHrDXbnBAMwOYivKWB2YJGwHQOcNM0EKdVmWVPtIMM7DKNqKKChYNYfgo0QSGGeLD A5MzA kYTTfWGZgDGKpQOjcNSExOVFqGRAcDTS6PSM7OCULZgAuWOSdXANrRIJaZnI2EyZnGm4PYYEoKDV3TFV 5NyAw AIBiHHViTFj6zbYvtTRfZbn9E0Jdp4IjCwWgVKJEW9ftOe3mDeKfROXAN7gDFkzlKAV7MbQZEOCfYJY4 RjQ4O YMHGQS7IKzuPPkjQqE8UJ51ZtZcYiGgEnF0WON7TuX1TMLsVKVNLVHTZZGIJbW9BIY+BR1XaWvhJMF0Z j4Kc3 FotlG9hmNxSrz3FoS6SkSuNJ3ZZn== RAD - MISC Observed: 10/19/2023 12:55 PM Status: F Source: [facility] [id number] RAD - MISC Observed: 10/19/2023 12:55 PM Status: F Source: [facility] [id number] ALLERGIES DATE TYPE / CODE NAME / CODE REACTION SEVERITY SOURCE Drug Class/[id number](S NOMED CT) NO KNOWN ALLERGIES [facility] Ambulatory [facility] DR/[id number]([facility] ED CT) No Known Medication Allergies [facility] ENCOUNTERS ADMIT/DISCHARGE ACCOUNT NUMBER ADMITTING ENCOUNTER CLASS LOCATION SOURCE 06/14/2024/ 025 [id number] Ambulatory Building:PTH_P ML [facility] 06/14/2024/ 025 [id number] Ambulatory Buildin [facility] Ambulatory PPG 10/24/2023/ 024 [id number] Ramy HIRSCH Ambulatory [facility]:F T LAB [facility] 10/24/2023/ 024 [id number] Ambulatory [place]: Exam 3 [facility] 10/21/2023/ 024 [id number] Ambulatory Occupational Health and WellnessBuildi ng:Occupationa l Health and Wellness [facility] 10/21/2023/ 024 [id number] Emergency [facility]Building:Skylar DRoom: ED-04Bed: CD:[id number] [facility] 10/10/2023/ 024 [id number] Ambulatory Building:[facility] 10/31/2020 [id number] Ambulatory [facility] [place]:EU [facility] FUNCTIONAL STATUS No Functional Status Records Found EQUIPMENT No Equipment Records Found PAYERS ENCOUNTER GUARANTOR PAYER SUBSCRIBER SOURCE 06/14/2024 GONZALO MORRISB: [address] [address]Trw: (HP) Primary Insurance:MMO SUPERMEDPolicy Number: [id number] Date:2017-09-30 GONZALO MORRISB: [id number] [address] [address]Ini: (HP) (WP) [facility] 06/14/2024 GONZALO MORRISB: [address] [address]Xbt: (HP) Primary Insurance:[facility] SUPERMEDPolicy Number: [id number] Date:2017-09-30 GONZALO MORRISB: [id number] [address] [address]Wua: (HP) (WP) [facility] Ambulatory [facility] 10/24/2023 GONZALO MORRISB: [address]: ~([phone] (HP) Primary Insurance:MEDICAL MUTUALPolicy Number: [id number] Date:1331-28-88DG [address] [address], [place] [address]VC: GONZALO OSCAR [facility] 10/24/2023 GONZALO DALEDOB: [address]Tel: ~([phone] (HP) Primary Insurance:MEDICAL MUTUALPolicy Number: [id number] Date:4648-62-68XL [address] [address], [place] [address]FQ: GONZALO OSCAR [facility] 10/21/2023 GONZALO ZHOURFDOB: [address]Tel: ~([phone] (HP) Primary Insurance:Worker's CompensationPolicy Number: [id number] Date:2023-10-21 GONZALO OSCAR [facility] 10/21/2023 Secondary Insurance:MEDICAL MUTUALPolicy Number: [id number] Date:0144-62-43WU [address] [address], [place] [address]CR: GONZALO OSCAR [facility] 10/10/2023 GONZALO DOMINGUEZALINARFDOB: [address] [address]Kla: (HP) Primary Insurance:MEDICAL MUTUALPolicy Number: [id number] Date:2022-05-02 GONZALO Vernon ZHOURFDOB: [id number] [address] [facility] EPIC SOCIAL HISTORY No Social History Records Found FAMILY HISTORY No Family History Records Found No Status Records Found ADVANCE DIRECTIVES No Advanced Directives Records Found INFORMATION SOURCE DATE CREATED AUTHOR AUTHOR'S VIKRAM ALLRED 09/21/2024 JULIÁN
--- OUTSIDE RECORDS SUMMARY | 2024-09-21 10:12 | XMS_ITS | Encounter Summary ---
Author Organization [facility] Address [id number] [address] [place] [address] Care Team Providers Care Paint Technician Name Role Phone Kylie Malagon MD Primary Care Provider [phone] Reason for Visit * Reason Comments Med Refill Encounter Details Date Type Department Care Team (Late st Contact Info) Description 08/26/2024 Refill [facility] - Family Medicine [address] [address] Harjit Goss, DO [address] [facility], [place] [address] Essential hypertension Social History Tobacco Use Types Packs/Day Years Used Date Smoking Tobacco: Never Smokeless Tobacco: Never Alcohol Use Standard Drinks/Week Comments Yes 0 (1 standard drink = 0.6 oz pur e alcohol) OCCASIONAL C Utilities Answer Date Recorded In the past 12 months has [employer], [employer], oil, or water [employer] threatened to shut off services in your home? No 02/14/2023 Social Connection and Isolat ion Panel [NHANES] Answer Date Recorded In a typical week, how many times do you talk on the phone with family, friends, or neighbors? More than three times a week 02/14/2023 How often do you get togethe r with friends or relatives? More than three times a week 02/14/2023 How often do you attend chur ch or anabaptist services? Never 02/14/2023 Do you belong to any clubs o r organizations such as yarsani groups, unions, fraternal or athletic groups, or school groups? No 02/14/2023 How often do you attend meet ings of the clubs or organizations you belong to? Never 02/14/2023 Are you , , di vorced, , never , or living with a partner? 02/14/2023 AUDIT-C Answer Date Recorded Q1: How often do you have a drink containing alc ohol? Monthly or less 11/11/2022 Q2: How many drinks containi ng alcohol do you have on a typical day when you are drinking? 1 or 2 11/11/2022 Q3: How often do you have si x or more drinks on one occasion? Never 11/11/2022 Overall Financial Resource Strain (CARDIA) Answe r Date Recorded How hard is it for you to pa y for the very basics like food, housing, medical care, and heating? Not hard at all 02/14/2023 PHQ-2 Answer Date Recorded Total Score 0 02/14/2023 [facility] - Occupational Stress Questionnaire Answer Date Recorded Do you feel stress - tense, restless, nervous, or anxious, or unable to sleep at night because your mind is troubled all the time - these days? Not at all 11/11/2022 Exercise Vital Sign Answer Date Recorde d On average, how many days pe r week do you engage in moderate to strenuous exercise (like a brisk walk)? 3 days 11/11/2022 On average, how many minutes do you engage in exercise at this level? 20 min 11/11/2022 PRAPARE - Transportation Answer Date Re corded In the past 12 months, has l ack of transportation kept you from medical appointments or from getting medications? No 01/30 In the past 12 months, has l ack of transportation kept you from meetings, work, or from getting things needed for daily living? No 02/14/2023 Housing Instability Answer Date Recorde d Are you worried or concerned that in the next two months you may not have stable housing that you own, rent or stay in as a part of a household? No 02/14/2023 Childcare Answer Date Recorded Do problems getting child ca re make it difficult for you to work or study? No 11/11/2022 Employment Answer Date Recorded Do you need help finding a [facility] career center and/or a training program? No 11/11/2022 Hunger Screening Answer Date Recorded Within the past 12 months we worried whether our food would run out before we got money to buy more. Never True 02/14/2023 Within the past 12 months th e food we bought just didn't last and we didn't have money to get more. Never True 02/14/2023 Purpose - Life Answer Date Recorded I have a purpose and direction in my life. Stron gly Agree 02/14/2023 Sex and Gender Information Value Date Recorded Sex Assigned at Not on file Legal Sex Male 11:33 AM EDT Gender Identity Not on file Sexual Orientation Not on file documented as of this encounter Plan of Treatment Not on file documented as of this encounter Visit Diagnoses Diagnosis Essential hypertension Unspecified essential hypertension documented in this encounter Additional Health Concerns Assessment Noted Time PHQ-9 Depression Total Score: 0 02/15/20 23 4:21 PM EDT A Body Mass Index follow-up plan has been documented for the patient 02/14/2023 5:28 PM EDT documented as of this encounter Care Teams Paint Technician Relationship Specialty Start Date End Date Kylie Malagon MD [address] [place] [address] PCP - General Family Medicine 07/23/24 documented as of this encounter
--- OUTSIDE RECORDS SUMMARY | 2024-09-21 10:12 | XMS_ITS | Encounter Summary ---
[id number] [address] [place] [address] Care Team Providers Care Retail Store Assistant Name Role Phone Kylie Malagon MD Primary Care Provider [phone] Encounter Details Date Type Department Care Team (Late st Contact Info) Description 06/15/2024 [facility] [address] [place] [address] Altagracia Leija, LORENE Social History Tobacco Use Types Packs/Day Years Used Date Smoking Tobacco: Never Smokeless Tobacco: Never Alcohol Use Standard Drinks/Week Comments Yes 0 (1 standard drink = 0.6 oz pur e alcohol) OCCASIONAL C Utilities Answer Date Recorded In the past 12 months has e electric, gas, oil, or water company threatened to shut off services in your [...] often do you attend chur ch or evangelical services? Never 02/14/2023 Do you belong to any clubs o r organizations such as pentecostal groups, unions, fraternal or athletic groups, or [...] Answer Date Recorded Total Score 0 02/14/2023 [facility] of Occupat ional Health - Occupational Stress [...] Recorded Do you need help finding a l ocal career center and/or a training program? No [...] a purpose and direction in my life. Bridget landa Agree 02/14/2023 Sex and Gender Information Value Date Recorded Sex Assigned at Not on file Legal Sex Male 11:33 AM EDT Gender Identity Not on file Sexual Orientation Not on file documented as of this encounter Miscellaneous Notes * Telephone Encounter - Altagracia Leija CMA - 06/15/2024 10:49 AM EST ----- Message from Dr. Harjit Goss DO sent at 06/15/2024 9:50 AM EST ----- His A1c was very bad at 10.7%. It was 7.4% a year ago. At that level we consider insulin. There also other medications that we can use such as Farxiga or Jardiance which are pills then injections like Mounjaro, Ozempic or Trulicity. His cholesterol also was still very high. He is taking a high dosestatin. We should consider a new medication like Repatha or Praluent. I would be open to sending him to a specialist to manage as well such as an telephone quotation clerk. His PSA was normal. His CMP was essentially normal except his glucose was 214 at that time. * Telephone Encounter - Altagracia Leija CMA - 06/15/2024 10:49 AM EST Called pt read your note, he is willing to trying the pill form Farxiga or jardiance , wants to know if he stays on the metformin with either one ? Stated he is ok to switch statins , and wants to try diet ,excersise and pill form first before seeing an telephone quotation clerk * Telephone Encounter - Harjit Goss DO - 06/15/2024 10:49 AM EST The Repatha was not covered with his diagnoses so I sent in Vascepa. I sent in the Farxiga as well and should be covered but I think I am going to have to do a prior authorization on both so it may be a while before he gets them * Telephone Encounter - Altagracia Leija CMA - 06/15/2024 10:49 AM EST Called pt read your note he said ok he will wait to hear from his pharmacy documented in this encounter Plan of Treatment Not on file documented as of this encounter Visit Diagnoses Not on filedocumented in this encounter Additional Health Concerns Assessment Noted Time PHQ-9 Depression Total Score: 0 02/15/20 4:21 PM EDT A Body Mass Index follow-up plan has been documented for the patient 02/14/2023 5:28 PM EDT documented as of this encounter Care Teams Retail Store Assistant Relationship Specialty Start Date End Date Kylie Malagon MD [address] [place] [address] PCP - General Family Medicine 07/23/24 documented as of this encounter
--- OUTSIDE RECORDS SUMMARY | 2024-09-21 10:12 | XMS_ITS | Encounter Summary ---
Author Organization [facility] Address [id number] [address] [place] [address] Care Team Providers Care Refrigerating Engineer Name Role Phone Kylie Malagon MD Primary Care Provider [phone] Reason for Visit * Reason Comments Med Refill Encounter Details Date Type Department Care Team (Late st Contact Info) Description 08/30/2024 Refill [facility] - Family Medicine [address] [address] Harjit Goss, DO [address] [facility], [place] [address] Social History Tobacco Use Types Packs/Day Years Used Date Smoking Tobacco: Never Smokeless Tobacco: Never Alcohol Use Standard Drinks/Week Comments Yes 0 (1 standard drink = 0.6 oz pur e alcohol) OCCASIONAL C Utilities Answer Date Recorded In the past 12 months has [employer], gas, oil, or water [employer] threatened to shut off services in your [...] 02/14/2023 How often do you attend chur or rastafarian services? Never 02/14/2023 Do you belong to [...] Answer Date Recorded Total Score 0 02/14/2023 [facility] of Occupat ional Health - Occupational [...] documented as of this encounter Care Teams Refrigerating Engineer Relationship Specialty Start Date End Date Kylie Malagon MD [address] [place] [address] PCP - General Family Medicine 07/23/24 documented as of this encounter
--- OUTSIDE RECORDS SUMMARY | 2024-09-21 10:13 | XMS_ITS | Encounter Summary ---
Author Organization [facility] Address [id number] [address] [place] [address] Care Team Providers Care Call Center Professional Name Role Phone Kylie Malagon MD Primary Care Provider Encounter Details Date Type Department Care Team (Late st Contact Info) Description 10/24/2023 Orders Only [facility] - Family Medicine [address] [place] [address] External, Scanning Provider Social History Tobacco Use Types Packs/Day Years [...] often do you attend chur ch or baptism services? Never 02/14/2023 Do you belong to any clubs o r organizations such as anabaptism groups, unions, fraternal or athletic groups, or [...] Answer Date Recorded Total Score 0 02/14/2023 [facility] of Occupat ional Health - Occupational Stress [...] documented as of this encounter Care Teams Call Center Professional Relationship Specialty Start Date End Date Kylie Malagon MD [facility] [place] [id number] PCP - General Family Medicine 07/23/24 documented as of this encounter
--- OUTSIDE RECORDS SUMMARY | 2024-09-21 10:13 | XMS_ITS | Encounter Summary ---
Author Organization [facility] Address [facility][id number] [address] [place] [address] Care Team Providers Care Staff Climate Scientist Name Role Phone Kylie Malagon MD Primary Care Provider [phone] Encounter Details Date Type Department Care Team (Late st Contact Info) Description 09/28/2022 Orders Only [facility] - Family Medicine [address] [place] [address] External, Scanning Provider Social History Tobacco Use Types Packs/Day Years Used Date Smoking Tobacco: Never Smokeless Tobacco: Never Alcohol Use Standard Drinks/Week Comments Yes 0 (1 standard drink = 0.6 oz pur e alcohol) OCCASIONAL PHQ-2 Answer Date Recorded Total Score 0 05/20/2022 Childcare Answer Date Recorded Childcare Unknown 10/11/2018 Employment Answer Date Recorded Employment Unknown 10/11/2018 Purpose - Life Answer Date Recorded Purpose and direction in life Unknown Sex and Gender Information Value Date Recorded Sex Assigned at Not on file Legal Sex Male 11:33 AM EDT Gender Identity Not on file Sexual Orientation Not on file documented as of this encounter Plan of Treatment Not on file documented as of this encounter Procedures Procedure Name Priority Date/Time Associated Diagnosis Comments DIABETES EYE EXAM Routine 09/28/2022 documented in this encounter Results * DIABETES EYE EXAM (09/28/2022) us Scanning Provider External HEALTH MAINTENANCE Fi nal Result MANUALLY TRANSCRIBED RESULTS documented in this encounter Visit Diagnoses Not on filedocumented in this encounter Additional Health Concerns Assessment Noted Time PHQ-9 Depression Total Score: 0 05/20/19 23 4:48 PM EST documented as of this encounter Care Teams Staff Climate Scientist Relationship Specialty Start Date End Date Kylie Malagon MD [address] [place] [address] PCP - General Family Medicine 07/23/24 documented as of this encounter
--- OUTSIDE RECORDS SUMMARY | 2024-09-21 10:13 | XMS_ITS | Encounter Summary ---
Author Organization [facility] Address [facility]-[id number] [address] [place] [address] Care Team Providers Care Staffing Specialist Name Role Phone Kylie Malagon MD Primary Care Provider [phone] Encounter Details Date Type Department Care Team (Late st Contact Info) Description 05/23/2023 Orders Only [facility] - Family Medicine [address] [place] [address] Harjit Goss, DO [address] [place] [address] Social History Tobacco Use Types Packs/Day Years Used Date Smoking Tobacco: Never Smokeless Tobacco: Never Alcohol Use Standard Drinks/Week Comments Yes 0 (1 standard drink = 0.6 oz pur e alcohol) OCCASIONAL C Utilities Answer Date Recorded In the past 12 months has [employer], gas, oil, or water [employer] threatened to shut off services in your [...] How often do you attend chur or shinto services? Never 02/14/2023 Do you belong to any clubs o r organizations such as orthodoxy groups, unions, fraternal or athletic groups, or [...] Answer Date Recorded Total Score 0 02/14/2023 [facility] Occupat ional Health - Occupational [...] Recorded Do you need help finding a [facility] career center and/or a training program? [...] documented as of this encounter Care Teams Staffing Specialist Relationship Specialty Start Date End Date Kylie Malagon MD [address] [place] [address] PCP - General Family Medicine 07/23/24 documented as of this encounter
--- OUTSIDE RECORDS SUMMARY | 2024-09-21 10:13 | XMS_ITS | Encounter Summary ---
Author Organization [facility] Address [facility][id number] [address] [place] [address] Care Team Providers Care Rim Turning Finisher Name Role Phone Kylie Malagon MD Primary Care Provider [phone] Encounter Details Date Type Department Care Team (Late st Contact Info) Description 09/30/2022 Orders Only [facility] - Family Medicine [address] [place] [address] External, Scanning Provider Social History Tobacco Use [...] Associated Diagnosis Comments DIABETES EYE EXAM Routine 09/30/2022 documented in this encounter Results * DIABETES EYE EXAM (09/30/2022) us Scanning Provider External HEALTH MAINTENANCE Fi nal Result MANUALLY TRANSCRIBED RESULTS documented in this encounter Visit Diagnoses Not on filedocumented in this encounter Additional Health Concerns Assessment Noted Time PHQ-9 Depression Total Score: 0 05/20/19 23 4:48 PM EST documented as of this encounter Care Teams Rim Turning Finisher Relationship Specialty Start Date End Date Kylie Malagon MD [address] [place] [address] PCP - General Family Medicine 07/23/24 documented as of this encounter
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
--- OUTSIDE RECORDS SUMMARY | 2024-09-21 10:13 | XMS_ITS | Encounter Summary ---
Author [facility] Address [facility] [id number] [address] [place] [address] Care Team Providers Care Harp Regulator Name Role Phone Kylie Malagon MD Primary Care Provider [phone] Encounter Details Date Type Department Care Team (Late st Contact Info) Description 02/15/2023 [facility] [address] [place] [address] Radha Estrada CMA Social History Tobacco Use Types Packs/Day Years [...] often do you attend chur ch or yazidism services? Never 02/14/2023 Do you belong to any clubs o r organizations such as religion groups, unions, fraternal or athletic groups, or [...] Answer Date Recorded Total Score 0 02/14/2023 [facility] [place] of Occupat ional Health - Occupational Stress [...] encounter Miscellaneous Notes * Telephone Encounter - Radha Estrada CMA - 02/15/2023 7:44 AM EDT Images from the original note were not included. Casper Garcia! We made 12 attempts to contact the patient with no reply or call back between 11/22 and 12/31. I reviewed the patient file and the patient is not injecting insulin. I am not sure what insurance the patient has but it very likely the patient will not qualify. We can have the patient call in and enroll but I am hesitant to have him do that if there is little chance he will qualify. Please call me to discuss if you???d like?? [facility] * Telephone Encounter - Harjit Goss DO - 02/15/2023 7:44 AM EDT Let the patient know they tried multiple times. He probably 1 qualify since he is not injecting anyinsulin * Telephone Encounter - Radha Estrada CMA - 02/15/2023 7:44 AM EDT Spoke with the patient and he understands documented in this encounter Plan of Treatment Not on file documented as of this encounter Visit Diagnoses Not on filedocumented in this encounter Additional Health Concerns Assessment Noted Time PHQ-9 Depression Total Score: 0 02/15/20 23 4:21 PM EDT A Body Mass Index follow-up plan has been documented for the patient 02/14/2023 5:28 PM EDT documented as of this encounter Care Teams Harp Regulator Relationship Specialty Start Date End Date Kylie Malagon MD [facility] [place] [id number] PCP - General Family Medicine 07/23/24 documented as of this encounter
--- OUTSIDE RECORDS SUMMARY | 2024-09-21 10:13 | XMS_ITS | Clinical Summary ---
Author Organization [facility] Healthcare Address [address] [place] [address] Care Team Providers Care Ems Educator Name Role Phone Harjit Goss MD Primary Care Provider [phone] Allergies No known active allergies Medications metFORMIN (Glucophage) 1000 MG tablet 1,000 mg every 12 (twelve) hours Active metoprolol succinate XL (Toprol-XL) 50 MG 24 hr tablet Take 50 mg by mouth in the morning. 05/03/2023 Active losartan (Cozaar) 25 MG tablet Take 25 mg by mouth in the morning. Active atorvastatin (Lipitor) 80 MG tablet 80 mg 1 (one) time each day at the same time Active amLODIPine (Norvasc) 5 MG tablet 5 mg 1 (one) time each day at the same time Active phytonadione (Vitamin K) 100 MCG tablet Take by mouth Active Multiple Vitamin (ONE-A-DAY MENS PO) Take by mouth Active omega-3 (FISH OIL) 300 MG capsule Take by mouth Daily Active cholecalciferol (Vitamin D-3) 125 MCG (5000 UT) capsule Take 5,000 Units by mouth in the morning. Active Family History Medical History Relation Name Comments No Known Problems Maternal Grandmother No Known Problems Paternal Grandfather Cancer Paternal Grandmother Relation Name Status Comments Father Alive Maternal Grandfather Maternal Grandmother Mother Alive Paternal Grandfather Paternal Grandmother Social History Tobacco Use Types Packs/Day Years Used Date Smoking Tobacco: Never Smokeless Tobacco: Never Tobacco Cessation:Counseling Given: Not Answered Alcohol Use Standard Drinks/Week Comments Yes 0 (1 standard drink = 0.6 oz pure alcohol) Caffeine intake: 1-2 cups per day Sex and Gender Information Value Date Recorded Sex Assigned at Not on file Legal Sex Male 7:06 PM EDT Gender Identity Not on file Sexual Orientation Not on file Last Filed Vital Signs Vital Sign Reading Time Taken Comments Blood Pressure 122/72 11/28/2019 12:00 PM EDT Pulse - - Temperature - - Respiratory Rate - - Oxygen Saturation - - Inhaled Oxygen Concentration - - Weight 89.4 kg (197 lb) 10/10/2023 4:05 PM EDT Height 175.3 cm (5' 9 ) 10/10/2023 4:05 PM EDT Body Mass Index 29.09 10/10/2023 4:05 PM EDT Plan of Treatment Not on file Insurance [employer] Care Teams Ems Educator Relationship Specialty Start Date End Date Harjit Goss MD PCP - General Family Medicine 06/07/23
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
--- OUTSIDE RECORDS SUMMARY | 2024-09-21 10:13 | XMS_ITS | Encounter Summary ---
Author Organization [facility] Address [facility] [place]-[id number] [address] [place] [address] Care Team Providers Care Electric Motorman Name Role Phone Kylie Malagon MD Primary Care Provider [phone] Reason for Visit * Reason Comments Med Refill Encounter Details Date Type Department Care Team (Late st Contact Info) Description 05/31/2022 Refill [facility] - Family Medicine [address] [place] [address] Harjit Goss, DO [address] [facility], [place] [address] Social History Tobacco Use Types Packs/Day Years [...] have Coronavirus / COVID-19? No / Unsure 05/20/2022 4:36 PM EST documented as of this encounter Plan of Treatment Not on file documented as of this encounter Visit Diagnoses Not on filedocumented in this encounter Additional Health Concerns Assessment Noted Time PHQ-9 Depression Total Score: 0 05/20/19 23 4:48 PM EST documented as of this encounter Care Teams Electric Motorman Relationship Specialty Start Date End Date Kylie Malagon MD [address] [place] [address] PCP - General Family Medicine 07/23/24 documented as of this encounter
--- OUTSIDE RECORDS SUMMARY | 2024-09-21 10:13 | XMS_ITS | Encounter Summary ---
Author Organization [facility] Address [facility] [place]-[id number] [address] [place] [address] Care Team Providers Care Epoxy Coatings Installer Name Role Phone Kylie Malagon MD Primary Care Provider [phone] Encounter Details Date Type Department Care Team (Late st Contact Info) Description 10/25/2023 Orders Only [facility] - Family Medicine [address] [place] [address] External, Scanning Provider Social History Tobacco Use [...] often do you attend chur ch or episcopalian services? Never 02/14/2023 Do you belong to [...] Answer Date Recorded Total Score 0 02/14/2023 [facility] [place] of Occupat ional Health - Occupational Stress [...] Procedure Name Priority Date/Time Associated Diagnosis Comments CT BRAIN WO CONT Routine 10/21/2023 7:58 AM EDT documented in this encounter Results * CT brain without contrast (10/21/2023 7:58 AM EDT) Anatomical Region Laterality Modality Neuro, Head, Head and Neck, Neuro Covera N/A Computed Tomography us Scanning Provider External IMG CT ORDERABLES Fin al Result documented in this encounter Visit Diagnoses Not on filedocumented in this encounter Additional Health Concerns Assessment Noted Time PHQ-9 Depression Total Score: 0 02/15/20 23 4:21 PM EDT A Body Mass Index follow-up plan has been documented for the patient 02/14/2023 5:28 PM EDT documented as of this encounter Care Teams Epoxy Coatings Installer Relationship Specialty Start Date End Date Kylie Malagon MD [address] [place] [address] PCP - General Family Medicine 07/23/24 documented as of this encounter
--- OUTSIDE RECORDS SUMMARY | 2024-09-21 10:13 | XMS_ITS | Encounter Summary ---
Author Organization [facility] tem Address [facility] [place] [place]-[id number] [address] [place] [address] Care Team Providers Care Line O Scribe Operator Name Role Phone Klyie Malagon MD Primary Care Provider [phone] Encounter Details Date Type Department Care Team (Late st Contact Info) Description 04/07/2022 Orders Only [facility] - Family Medicine [address] [place] [address] External, Scanning Provider Social History Tobacco Use Types Packs/Day Years Used Date Smoking Tobacco: Never Smokeless Tobacco: Never Alcohol Use Standard Drinks/Week Comments Yes 0 (1 standard drink = 0.6 oz pur e alcohol) OCCASIONAL Childcare Answer Date Recorded Childcare Unknown 10/11/2018 [...] Associated Diagnosis Comments DIABETES EYE EXAM Routine 04/07/2022 documented in this encounter Results * DIABETES EYE EXAM (04/07/2022) us Scanning Provider External HEALTH MAINTENANCE Fi nal Result MANUALLY TRANSCRIBED RESULTS documented in this encounter Visit Diagnoses Not on filedocumented in this encounter Care Teams Line O Scribe Operator Relationship Specialty Start Date End Date Kylie Malagon MD [address] [place] [address] PCP - General Family Medicine 07/23/24 documented as of this encounter
--- OUTSIDE RECORDS SUMMARY | 2024-09-21 10:13 | XMS_ITS | Encounter Summary ---
Author Organization [facility] Address [facility]-[id number] [address] [place] [address] Care Team Providers Care Daycare Provider Name Role Phone Kylie Malagon MD Primary Care Provider [phone] Reason for Visit * Reason Comments Med Refill Encounter Details Date Type Department Care Team (Late st Contact Info) Description 09/20/2024 Refill [facility] - Family Medicine [address] [place] [address] Harjit Goss, DO [address] [facility], [place] [address] Essential hypertension Social History Tobacco Use Types Packs/Day Years Used Date Smoking Tobacco: Never Smokeless Tobacco: Never Alcohol Use Standard Drinks/Week Comments Yes 0 (1 standard drink = 0.6 oz pur e alcohol) OCCASIONAL C Utilities Answer Date Recorded In the past 12 months has [employer], oil, or water [employer] threatened to shut off services in your [...] often do you attend chur ch or cheondoism services? Never 02/14/2023 Do you belong to any clubs o r organizations such as worship groups, unions, fraternal or athletic groups, or [...] Answer Date Recorded Total Score 0 02/14/2023 [facility] of Occupat ional Health - Occupational [...] Recorded Do you need help finding a [facility] career center and/or a training program? [...] documented as of this encounter Care Teams Daycare Provider Relationship Specialty Start Date End Date Kylie Malagon MD [address] [place] [address] PCP - General Family Medicine 07/23/24 documented as of this encounter
--- OUTSIDE RECORDS SUMMARY | 2024-09-21 10:13 | XMS_ITS | Encounter Summary ---
Author Organization [facility] Address [facility] [place]-[id number] [address] [place] [address] Care Team Providers Care Physical Design Engineer Name Role Phone Kylie Malagon MD Primary Care Provider [phone] Encounter Details Date Type Department Care Team (Late st Contact Info) Description 10/26/2023 Orders Only [facility] - Family Medicine [address] [place] [address] External, Scanning Provider Social History Tobacco Use [...] often do you attend chur ch or anglican services? Never 02/14/2023 Do you belong to [...] Answer Date Recorded Total Score 0 02/14/2023 [facility] [place] of Occupat ional Health - Occupational Stress [...] Procedure Name Priority Date/Time Associated Diagnosis Comments FREE PSA Routine 10/24/2023 8:39 AM EDT documented in this encounter Results * Free PSA (10/24/2023 8:39 AM EDT) us Scanning Provider External LAB BLOOD ORDERABLES Final Result MANUALLY TRANSCRIBED RESULTS documented in this encounter Visit Diagnoses Not on filedocumented in this encounter Additional Health Concerns Assessment Noted Time PHQ-9 Depression Total Score: 0 02/15/20 23 4:21 PM EDT A Body Mass Index follow-up plan has been documented for the patient 02/14/2023 5:28 PM EDT documented as of this encounter Care Teams Physical Design Engineer Relationship Specialty Start Date End Date Kylie Malagon MD [address] [place] [address] PCP - General Family Medicine 07/23/24 documented as of this encounter
--- OUTSIDE RECORDS SUMMARY | 2024-09-21 10:13 | XMS_ITS | Encounter Summary ---
Author Organization [facility] [employer] [facility] tem Address [facility]-[id number] [address] [place] [address] Care Team Providers Care Manager Of Information Name Role Phone Kylie Malagon MD Primary Care Provider [phone] Encounter Details Date Type Department Care Team (Late st Contact Info) Description 12/12/[address] [facility] [address] [place] [address] Bekah Miller CMA Social History Tobacco Use Types Packs/Day Years Used Date Smoking Tobacco: Never Smokeless Tobacco: Never Alcohol Use Standard Drinks/Week Comments Yes 0 (1 standard drink = 0.6 oz pur e alcohol) OCCASIONAL [facility] Utilities Answer Date Recorded In the past [...] often do you attend chur ch or methodist services? Never 02/14/2023 Do you belong to any clubs o r organizations such as adventism groups, unions, fraternal or athletic groups, or [...] Answer Date Recorded Total Score 0 02/14/2023 [facility] [place] of Occupat ional Health - Occupational Stress [...] Do you need help finding a l al career center and/or a training program? No [...] documented as of this encounter Care Teams Manager Of Information Relationship Specialty Start Date End Date Kylie Malagon MD [address] [place] [address] PCP - General Family Medicine 07/23/24 documented as of this encounter
[2024-09-21 10:36] LABS: Estimated Average Glucose 160 mg/dL; Glycohemoglobin A1C 7.2 % (4.5-6.2)
[2024-09-21 10:58] LABS: Chol HDL Ratio 3.4; Cholesterol 136 mg/dL (<=200); HDL Cholesterol 40 mg/dL (40-60); Triglycerides 188 mg/dL (<=150); VLDL CHOLESTEROL 37.6 mg/dL
== END 2024-09-21 10:09 | disposition home or self-care (01) ==
LOC: LAB 10:11
PROVIDERS: PCP Family Medicine; Visit Provider Family Medicine
DX: E11.65 Type 2 diabetes mellitus with hyperglycemia (principal); E78.2 Mixed hyperlipidemia
CPT/HCPCS: 36415; 80061; 83036

== ENCOUNTER 2024-12-20 15:57 | Outpatient (OUT) | payer OTHER, SELFPAY ==
--- OUTSIDE RECORDS SUMMARY | 2024-12-20 16:01 | XMS_ITS | Encounter Summary ---
Author Organization [facility] Address [facility] [id number] [address] [place] [address] Care Team Providers Care Joint Filler Name Role Phone Kylie Malagon MD Primary Care Provider [phone] Encounter Details Date Type Department Care Team (Late st Contact Info) Description 06/15/2024 [facility]phone [facility] [address] [place] [address] Altagracia Leija, LORENE Social History [...] often do you attend chur ch or rastafari services? Never 02/14/2023 Do you belong to any clubs o r organizations such as voodoo groups, unions, fraternal or athletic groups, or [...] Answer Date Recorded Total Score 0 02/14/2023 [facility] of Occupat ional Health - Occupational Stress [...] to manage as well such as an cfa. His PSA was normal. His CMP was [...] and pill form first before seeing an cfa * Telephone Encounter - Harjit Goss DO [...] documented as of this encounter Care Teams Joint Filler Relationship Specialty Start Date End Date Kylie Malagon MD [address] [place] [address] PCP - General Family Medicine 07/23/24 documented as of this encounter
--- OUTSIDE RECORDS SUMMARY | 2024-12-20 16:01 | XMS_ITS | Encounter Summary ---
Author Organization [facility] Address [facility] [place] [facility] [id number] [address] [place] [address] Care Team Providers Care Environmental Field Professional Name Role Phone Kylie Malagon MD Primary Care Provider [phone] Reason for Visit * Reason Comments Med Refill Encounter Details Date Type Department Care Team (Late st Contact Info) Description 08/30/2024 Refill [facility] Internal Medicine - Family Medicine [address] [address] Harjit Goss, DO [address] [facility], [place] [address] Social History Tobacco Use Types Packs/Day Years Used Date Smoking Tobacco: Never Smokeless Tobacco: Never Alcohol Use Standard Drinks/Week Comments Yes 0 (1 standard drink = 0.6 oz pur e alcohol) OCCASIONAL C Utilities Answer Date Recorded In the past 12 months has [employer], gas, oil, or water [employer] threatened to shut off services in your [...] How often do you attend chur or mosque services? Never 02/14/2023 Do you belong to any clubs o r organizations such as spiritism groups, unions, fraternal or athletic groups, or [...] Answer Date Recorded Total Score 0 02/14/2023 [facility] of Occupat ional Health - Occupational [...] documented as of this encounter Care Teams Environmental Field Professional Relationship Specialty Start Date End Date Kylie Malagon MD [address] [place] [address] PCP - General Family Medicine 07/23/24 documented as of this encounter
--- OUTSIDE RECORDS SUMMARY | 2024-12-20 16:01 | XMS_ITS | Encounter Summary ---
Author Organization [facility] Address [facility] [id number] [address] [place] [address] Care Team Providers Care Voice Studies Director Name Role Phone Kylie Malagon MD Primary Care Provider [phone] Reason for Visit * Reason Comments Med Refill Encounter Details Date Type Department Care Team (Late st Contact Info) Description 09/20/2024 Refill [facility] - Family Medicine [address] [place] [address] Harjit Goss, DO [address] [facility], [place] [address] Essential hypertension Social History Tobacco Use Types Packs/Day Years Used Date Smoking Tobacco: Never Smokeless Tobacco: Never Alcohol Use Standard Drinks/Week Comments Yes 0 (1 standard drink = 0.6 oz pur e alcohol) OCCASIONAL C Utilities Answer Date Recorded In the past 12 months has [employer], [place] [employer], oil, or water [employer] threatened to shut off services in your [...] often do you attend chur ch or mu-ism services? Never 02/14/2023 Do you belong to any clubs o r organizations such as protestant groups, unions, fraternal or athletic groups, or [...] Answer Date Recorded Total Score 0 02/14/2023 [facility] of Occupat ional Health - Occupational Stress [...] Recorded Do you need help finding a [facility] career center and/or a training program? No [...] documented as of this encounter Care Teams Voice Studies Director Relationship Specialty Start Date End Date Kylie Malagon MD [address] [place] [address] PCP - General Family Medicine 07/23/24 documented as of this encounter
--- OUTSIDE RECORDS SUMMARY | 2024-12-20 16:01 | XMS_ITS | Encounter Summary ---
Author Organization [facility] Address [facility] [id number] [address] [place] [address] Care Team Providers Care Wood Drilling Machine Operator Name Role Phone Kylie Malagon MD Primary Care Provider [phone] Reason for Visit * Reason Comments Med Refill Encounter Details Date Type Department Care Team (Late st Contact Info) Description 08/26/2024 Refill [facility] Internal Medicine - Family Medicine [address] [place] [address] Harjit Goss, DO [address] [facility] [place] [address] Essential hypertension Social History Tobacco Use Types Packs/Day Years Used Date Smoking Tobacco: Never Smokeless Tobacco: Never Alcohol Use Standard Drinks/Week Comments Yes 0 (1 standard drink = 0.6 oz pur e alcohol) OCCASIONAL C Utilities Answer Date Recorded In the past 12 months has [employer], [employer], oil, or water [employer] threatened to shut off services in your [...] often do you attend chur ch or orthodoxy services? Never 02/14/2023 Do you belong to any clubs o r organizations such as rastafari groups, unions, fraternal or athletic groups, or [...] Answer Date Recorded Total Score 0 02/14/2023 [employer] of Occupat ional Health - Occupational Stress [...] Recorded Do you need help finding a [facility] career center and/or a training program? [...] documented as of this encounter Care Teams Wood Drilling Machine Operator Relationship Specialty Start Date End Date Kylie Malagon MD [address] [place] [address] PCP - General Family Medicine 07/23/24 documented as of this encounter
--- OUTSIDE RECORDS SUMMARY | 2024-12-20 16:02 | XMS_ITS | Encounter Summary ---
Author Organization [facility] Address [facility] [id number] [address] [place] [address] Care Team Providers Care Training Designer Name Role Phone Kylie Malagon MD Primary Care Provider [phone] Encounter Details Date Type Department Care Team (Late st Contact Info) Description 05/23/2023 Orders Only [facility] Internal [facility] - Family Medicine [address] [place] [address] Harjit Goss, DO [address] [place] [address] Social History Tobacco Use Types Packs/Day Years Used Date Smoking Tobacco: Never Smokeless Tobacco: Never Alcohol Use Standard Drinks/Week Comments Yes 0 (1 standard drink = 0.6 oz pur e alcohol) OCCASIONAL C Utilities Answer Date Recorded In the past 12 months has [employer], gas, oil, or water [employer] threatened to shut off services in your [...] How often do you attend chur or yazdanism services? Never 02/14/2023 Do you belong to any clubs o r organizations such as moravian groups, unions, fraternal or athletic groups, or [...] Answer Date Recorded Total Score 0 02/14/2023 [facility] of Occupat ional Health - [...] Recorded Do you need help finding a [facility] career center and/or a training program? No [...] documented as of this encounter Care Teams Training Designer Relationship Specialty Start Date End Date Kylie Malagon MD [address] [place] [address] PCP - General Family Medicine 07/23/24 documented as of this encounter
--- OUTSIDE RECORDS SUMMARY | 2024-12-20 16:02 | XMS_ITS | Clinical Summary ---
Author Organization [facility] Healthcare Address [address] [place] [address] Care Team Providers Care Cap Sizer Name Role Phone Harjit Goss MD Primary Care Provider [phone] Allergies No known active allergies Medications metFORMIN [...] on file Insurance [employer] Care Teams Cap Sizer Relationship Specialty Start Date End Date Harjit Goss MD PCP - General Family Medicine 06/07/23
--- OUTSIDE RECORDS SUMMARY | 2024-12-20 16:02 | XMS_ITS | Encounter Summary ---
Author Organization [facility] Address [facility] [id number] [address] [place] [address] Care Team Providers Care Rn Stars Name Role Phone Kylie Malagon MD Primary Care Provider [phone] Encounter Details Date Type Department Care Team (Late st Contact Info) Description 04/07/2022 Orders Only [facility] Internal [facility] - Family Medicine [address] [place] [address] External, Scanning Provider Social History Tobacco Use [...] on filedocumented in this encounter Care Teams Rn Stars Relationship Specialty Start Date End Date Kylie Malagon MD [address] [place] [address] PCP - General Family Medicine 07/23/24 documented as of this encounter
--- OUTSIDE RECORDS SUMMARY | 2024-12-20 16:02 | XMS_ITS | Encounter Summary ---
[facility] [place][id number] [address] [place] [address] Care Team Providers Care Safety Specialist Name Role Phone Kylie Malagon MD Primary Care Provider [phone] Encounter Details Date Type Department Care Team (Late st Contact Info) Description 07/16/2022 Orders Only [facility] Internal Medicine - Family Medicine [address] [place] [address] Radha Estrada CMA Ulnar neuropathy of right [...] documented as of this encounter Care Teams Safety Specialist Relationship Specialty Start Date End Date Kylie Malagon MD [address] [place] [address] PCP - General Family Medicine 07/23/24 documented as of this encounter
--- OUTSIDE RECORDS SUMMARY | 2024-12-20 16:02 | XMS_ITS | Encounter Summary ---
Author Organization [facility] [employer] [facility] Address [facility] [place][id number] [address] [place] [address] Care Team Providers Care Industrial Custodian Name Role Phone Kylie Malagon MD Primary Care Provider [phone] Encounter Details Date Type Department Care Team (Late st Contact Info) Description 12/12/2023 [facility]phone [facility] [address] [place] [address] Bekah Miller CMA Social History Tobacco Use Types Packs/Day Years Used Date Smoking Tobacco: Never Smokeless Tobacco: Never Alcohol Use Standard Drinks/Week Comments Yes 0 (1 standard drink = 0.6 oz pur e alcohol) OCCASIONAL [facility] Utilities Answer Date Recorded In the past [...] often do you attend chur ch or jainism services? Never 02/14/2023 Do you belong to any clubs o r organizations such as muslim groups, unions, fraternal or athletic groups, or [...] Answer Date Recorded Total Score 0 02/14/2023 [facility] of Occupat ional Health - Occupational Stress [...] documented as of this encounter Care Teams Industrial Custodian Relationship Specialty Start Date End Date Kylie Malagon MD [address] [place] [address] PCP - General Family Medicine 07/23/24 documented as of this encounter
--- OUTSIDE RECORDS SUMMARY | 2024-12-20 16:02 | XMS_ITS | Encounter Summary ---
Author Organization [facility] Address [facility] [id number] [address] [place] [address] Care Team Providers Care Equity Analyst Name Role Phone Kylie Malagon MD Primary Care Provider Encounter Details Date Type Department Care Team (Late st Contact Info) Description 10/26/2023 Orders Only [facility] Internal Medicine - Family Medicine [address] [place] [address] External, Scanning Provider Social History Tobacco Use [...] often do you attend chur ch or scientologist services? Never 02/14/2023 Do you belong to any clubs o r organizations such as nondenominational groups, unions, fraternal or athletic groups, or [...] Answer Date Recorded Total Score 0 02/14/2023 [facility] of Occupat ional Health - Occupational Stress [...] documented as of this encounter Care Teams Equity Analyst Relationship Specialty Start Date End Date Kylie Malagon MD [address] [place] [address] PCP - General Family Medicine 07/23/24 documented as of this encounter
--- OUTSIDE RECORDS SUMMARY | 2024-12-20 16:02 | XMS_ITS | Encounter Summary ---
Author Organization [facility] Address [facility] [id number] [address] 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 Never 02/14/2023 Do you belong to any clubs o r organizations such as confucianism groups, unions, fraternal or athletic groups, or [...] Answer Date Recorded Total Score 0 02/14/2023 [facility] of Occupat ional Health [...] Recorded Do you need help finding a [facility] career center and/or a training program? 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
--- OUTSIDE RECORDS SUMMARY | 2024-12-20 16:02 | XMS_ITS | Encounter Summary ---
Author Organization [facility] Address [facility] [place][id number] [address] [place] [address] Care Team Providers Care Oncology Consultant Name Role Phone Kylie Malagon MD Primary Care Provider Encounter Details Date Type Department Care Team (Late st Contact Info) Description 10/25/2023 Orders Only [facility] Internal Medicine - Family Medicine [address] [place] [address] External, Scanning Provider Social History Tobacco Use [...] often do you attend chur ch or adventist services? Never 02/14/2023 Do you belong to any clubs o r organizations such as evangelical groups, unions, fraternal or athletic groups, or [...] Total Score 0 02/14/2023 [facility] of Occupat ional Health - Occupational Stress [...] documented as of this encounter Care Teams Oncology Consultant Relationship Specialty Start Date End Date Kylie Malagon MD [address] [place] [address] PCP - General Family Medicine 07/23/24 documented as of this encounter
--- OUTSIDE RECORDS SUMMARY | 2024-12-20 16:02 | XMS_ITS | Encounter Summary ---
Author [facility] Address [facility][id number] [address] [place] [address] Care Team Providers Care Rn Lvn Name Role Phone Kylie Malagon MD Primary Care Provider [phone] Encounter Details Date Type Department Care Team (Late st Contact Info) Description 02/15/2023 [facility]phone [facility] [address] [place] [address] Radha Estrada CMA Social History [...] often do you attend chur ch or yazidi services? Never 02/14/2023 Do you belong to any clubs o r organizations such as gnosticism groups, unions, fraternal or athletic groups, or [...] Answer Date Recorded Total Score 0 02/14/2023 [facility] of Occupat ional Health - Occupational Stress [...] call me to discuss if you???d like?? [facility] Administrator * Telephone Encounter - Harjit Goss DO [...] documented as of this encounter Care Teams Rn Lvn Relationship Specialty Start Date End Date Kylie Malagon MD [facility] [place] [id number] PCP - General Family Medicine 07/23/24 documented as of this encounter
--- OUTSIDE RECORDS SUMMARY | 2024-12-20 16:02 | XMS_ITS | Encounter Summary ---
Author Organization [facility] Address [facility] [place][id number] [address] [place] [address] Care Team Providers Care Online Banking Specialist Name Role Phone Kylie Malagon MD Primary Care Provider [phone] Reason for Visit * Reason Comments Med Refill Encounter Details Date Type Department Care Team (Late st Contact Info) Description 09/24/2024 Refill [facility] Internal Medicine - Family Medicine [address] [place] [address] Harjit Goss, DO [address] [facility], [place] [address] Mixed hyperlipidemia Social History Tobacco Use Types Packs/Day Years Used Date Smoking Tobacco: Never Smokeless Tobacco: Never Alcohol Use Standard Drinks/Week Comments Yes 0 (1 standard drink = 0.6 oz pur e alcohol) OCCASIONAL C Utilities Answer Date Recorded In the past 12 months has [employer], [employer], oil, or water [employer] threatened to shut off services in your [...] often do you attend chur ch or uatsdin services? Never 02/14/2023 Do you belong to any clubs o r organizations such as taoism groups, unions, fraternal or athletic groups, or [...] Recorded Do you need help finding a [facility] career center and/or a training [...] as of this encounter Visit Diagnoses Diagnosis Mixed hyperlipidemia documented in this encounter Additional Health Concerns Assessment Noted Time PHQ-9 Depression Total Score: 0 02/15/20 23 4:21 PM EDT A Body Mass Index follow-up plan has been documented for the patient 02/14/2023 5:28 PM EDT documented as of this encounter Care Teams Online Banking Specialist Relationship Specialty Start Date End Date Kylie Malagon MD [address] [place] [address] PCP - General Family Medicine 07/23/24 documented as of this encounter
--- OUTSIDE RECORDS SUMMARY | 2024-12-20 16:02 | XMS_ITS | Clinical Summary ---
Author Organization [employer] [facility] Address [facility] [id number] [address] [place] [address] Care Team Providers Care Fusing Machine Tender Name Role Phone Kylie Malagon MD Primary Care Provider [phone] Allergies No known active allergies Medications omega 6-vnv-vfu-fish oil (FISH OIL) 100-160-1,000 mg capsule Take [...] edema associated with type 2 diabetes mellitus ([facility]) 1 [address]ellaneous route [...] edema associated with type 2 diabetes mellitus ([facility]) Take 1 tablet (1,000 mg total) by [...] Encounters Date Type Department Care Team Description 11/30/2024 Refill [facility] - Family Medicine [address] [place] [address] HopewellHarjit, DO 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 ([facility]) 09/24/2024 Refill [facility] - Family Medicine [address] [place] [address] MaeganbolivarHarjit thompson, DO Mixed hyperlipidemia 09/20/2024 Refill [facility] - Family Medicine [address] [place] [address] Harjit Goss, DO Essential hypertension from Last 3 Months Family History Medical [...] = 0.6 oz pur e alcohol) OCCASIONAL [employer] Utilities Answer Date Recorded In the past 12 months has [employer], gas, oil, or water [employer] threatened to shut off services in your [...] How often do you attend chur or confucianism services? Never 02/14/2023 Do you belong to any clubs o r organizations such as taoist groups, unions, fraternal or athletic groups, or [...] [facility] - [facility]ational [facility] Questionnaire Answer Date Recorded [...] 2) 07/22/2017 Diabetic Foot Exam 11/12/2023 11/11/2022 Adult BMI Follow Up Plan 02/15/2024 02/14/2023 Depression Screening 02/15/2024 02/14/2023 Diabetic Ophthalmology Exam 05/18/202405/02, 09/30/2022, 09/28/2022, Additional history exists Influenza Vaccine 12/31/2024 Statin Use: Diabetic 05/08/2025 05/08/2024 Adult BMI Screening 06/14/2025 06/14/2024 Tobacco Screening 06/14/2025 06/14/2024 Colonoscopy 09/04/2028 09/04/2018, 09/04/2018 Medical Devices Not on file Procedures Procedure Name Priority Date/Time Associated Diagnosis Comments HM DIABETES EYE EXAM Routine 09/30/2022 PROVATION COLONOSCOPY Routine 09/04/2018 8:23 AM EDT from Last 3 Months or Most Recently Relevant to Health Maintenance Results * HM DIABETES EYE EXAM (09/30/2022) us Scanning Provider [...] Relevant to Health Maintenance Insurance [employer] Member Subscriber Plan / Payer (Ef fective 2017-Present) Name:Richard Garcia Relation to Subscriber:Self Name:Richard Garcia Payer ID:Not on file Type:Not on file Address: [place] [id number] Care Teams Fusing Machine Tender Relationship Specialty Start Date End Date Kylie Malagon MD [address] [place], [place] [id number] PCP - General Family Medicine 07/23/24
--- OUTSIDE RECORDS SUMMARY | 2024-12-20 16:02 | XMS_ITS | Encounter Summary ---
Author Organization [facility] tem Address [facility] [place][id number] [address] [place] [address] Care Team Providers Care Supervisor Powdered Sugar Name Role Phone Kylie Malagon MD Primary Care Provider [phone] Encounter Details Date Type Department Care Team (Late st Contact Info) Description 09/30/2022 Orders Only [facility] - Family Medicine [address] [place] [address] External, Scanning Provider Social History Tobacco Use [...] documented as of this encounter Care Teams Supervisor Powdered Sugar Relationship Specialty Start Date End Date Kylie Malagon MD [address] [place] [address] PCP - General Family Medicine 07/23/24 documented as of this encounter
--- OUTSIDE RECORDS SUMMARY | 2024-12-20 16:02 | XMS_ITS | Encounter Summary ---
Author Organization [facility] Sys tem Address [facility]-[id number] [address] [place] [address] Care Team Providers Care Tangled Yarn Spool Straightener Name Role Phone Kylie Malagon MD Primary Care Provider [phone] Encounter Details Date Type Department Care Team (Late st Contact Info) Description 10/24/2023 Orders Only [facility] - Family Medicine [address] [place] [id number] External, Scanning Provider Social History Tobacco Use [...] often do you attend chur ch or mandaeism services? Never 02/14/2023 Do you belong to any clubs o r organizations such as quaker groups, unions, fraternal or athletic groups, or [...] Answer Date Recorded Total Score 0 02/14/2023 [facility] [place] of Occupat ional Health - Occupational Stress [...] documented as of this encounter Care Teams Tangled Yarn Spool Straightener Relationship Specialty Start Date End Date Kylie Malagon MD [facility] [place] [id number] PCP - General Family Medicine 07/23/24 documented as of this encounter
--- OUTSIDE RECORDS SUMMARY | 2024-12-20 16:02 | XMS_ITS | Encounter Summary ---
Author Organization [facility] Sys tem Address [id number] [address] [place] [address] Care Team Providers Care Sales Apprentice Name Role Phone Kylie Malagon MD Primary Care Provider Encounter Details Date Type Department Care Team (Late st Contact Info) Description 09/28/2022 Orders Only [facility] Internal [facility] - Family Medicine [address] [place] [phone] External, Scanning Provider Social History Tobacco Use [...] documented as of this encounter Care Teams Sales Apprentice Relationship Specialty Start Date End Date Kylie Malagon MD [address] [place] [address] PCP - General Family Medicine 07/23/24 documented as of this encounter
--- OUTSIDE RECORDS SUMMARY | 2024-12-20 16:02 | XMS_ITS | Encounter Summary ---
Author Organization [facility] Address [facility]-[id number] [address] [place] [address] Care Team Providers Care Acute Care Physician Name Role Phone Kylie Malagon MD Primary Care Provider [phone] Reason for Visit * Reason Comments Med Refill Encounter Details Date Type Department Care Team (Late st Contact Info) Description 05/31/2022 Refill [facility] Internal Medicine - Family Medicine [address] [place] [address] Harjit Goss, DO [address] [facility], [place] [address] Social History Tobacco Use Types Packs/Day Years [...] documented as of this encounter Care Teams Acute Care Physician Relationship Specialty Start Date End Date Kylie Malagon MD [address] [place] [address] PCP - General Family Medicine 07/23/24 documented as of this encounter
--- NOTE | 2024-12-20 16:36 | XR_ITS ---
[facility] [place] [id number] Patient Name: GONZALO DALE MRN: [id number] date: 1965 Sex: M Assigned Patient Location: LAB Current Patient Location: LAB Accession/Order Number: [id number] Exam Date: 12/20/2024 16:32 Report Date: 12/20/2024 17:06 At the request of: JONI DIXON MD Procedure: XR abdomen 1V Single view of abdomen COMPARISON: 10/19/2023 HISTORY: Reassessment for kidney stones THORAX: Lung bases unremarkable. FREE AIR: Supine position limits assessment BOWEL: No gaseous intestinal distention. STOOL: No significant stool RENAL STONES: No significant stones present. VASCULAR CALCIFICATIONS: Unremarkable SOFT TISSUE: Unremarkable BONES: Unremarkable POSTSURGICAL CHANGES: None XR/XR abdomen 1V IMPRESSION: No visible renal calculi Impression dictated by: Marcos Strong M.D. 12/20/2024 5:06 PM Dictation Location: [employer] Electronically authenticated by: [id number] Y Date: 12/20/2024 17:06
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
[2024-12-20 18:05] LABS: Prostate Specific Antigen Dx 0.97 ng/mL (<=4.00)
== END 2024-12-20 15:58 | disposition home or self-care (01) ==
PROVIDERS: PCP Family Medicine; Visit Provider Urology
DX: N40.0 Benign prostatic hyperplasia without lower urinary tract symptoms (principal); Z87.442 Personal history of urinary calculi
CPT/HCPCS: 36415; 74018; 84153